=== PATIENT | female | born 1965 | race Caucasian/White ===

== ENCOUNTER 2018-06-18 06:14 | Day surgery (SDC) | payer MEDICAID, SELFPAY ==
[2018-06-18 06:34] VITALS: BP 137/80; PULSE 59; RESP 16; TEMP 36.3; O2SAT 99
[2018-06-18] MEDS: Lactated Ringers 1,000 ML 30 ML IV (06:56)
--- NOTE | 2018-06-18 07:26 | W.COLOREPORT ---
Date of service: 06/18/18 Time of Service: 07:27 Colonoscopy Report Date of procedure: 06/18/18 Pre-op diagnosis general: Change in bowel habits Post-op diagnosis procedure note: other (1. Gastritis 2. Normal colon to the cecum) Procedure: 1. Esophagogastroduodenoscopy with biopsy by cold forceps 2. Colonoscopy to the cecum with biopsy by cold forceps Surgeon: Freddy Mauricio Anesthesia proc note operative: MAC (Destin Edmonds, LILY ASA 2; Mallampati class 2) Estimated blood loss (mL): 1 Pathology: other (1.Duodenal bx 2. Gastric Antral Bx 3. Random terminal ileum Bx 4. Random Colon Bx 5. Random Rectum) Complications: None Disposition: same day Indications: 53-year-old woman referred for change in bowel habits. This started about 3 months ago when she noticed she was having more constipation with several days between bowel movements which is atypical for her. She usually has about 1 bowel movement a day. Currently this is ranging from [place] class I to [place] class VII. She is also had some associated epigastric pain, along with heartburn. She does have a history of atypical chest pain, so she is unsure if it is heartburn versus the atypical chest pain often. She also reports a history of dysphasia some foods. She cannot really relate any aggravating or alleviating factors. She thinks she has not been drinking enough water which could be contributing. Recommended upper and lower endoscopy to evaluate for occult pathology of the GI tract. Prep: Miralax/Dulcolax (Prep Quality good.) Findings: In examining the upper gastrointestinal tract from the oropharynx to the third portion of the duodenum, the patient was noted to have some inflammatory changes in the first portion of the duodenum and gastric antrum. These included some shallow ulcerations seen in the duodenum and gastric antrum. Biopsies were taken from both the duodenum and gastric antrum. No other significant abnormalities are noted through the remainder of the upper GI tract. On examining the colon from cecum to anus no abnormalities were noted. The terminal ileum was examined for approximately 15-20 cm, and appeared grossly normal. Random biopsies were taken from the terminal ileum colon and rectum. Procedure Description: The patient was brought to the procedure room. Monitoring for telemetry, end-tidal CO2, O2 saturation, blood pressure were applied. An appropriate timeout was taken reviewing the patient's identification, allergies, medications,and procedure. Sedation was titrated for effect by the TEACHER MUSIC. The upper endoscopy was performed first. An Olympus variable stiffness endoscope was advanced from the oropharynx to the third portion of the duodenum without difficulty. The scope was then withdrawn in circumferential manner from the duodenum back to the oropharynx. In performing withdrawal of the scope, the first portion of the duodenum appeared inflamed with some shallow ulcerations, but the remainder of the duodenum appeared normal. The scope was withdrawn into the gastric antrum there was shallow ulcerations and inflammatory changes seen also in the gastric antrum, biopsies were taken from both the duodenum and gastric antrum antrum. The scope was retroflexed in the stomach the anterior, posterior surfaces of the stomach, lesser curvature, greater curvature, and fundus were noted to be normal. The scope was then withdrawn to the GE junction which I measured at 35 cm The Z line was at 35 cm and appeared regular. I withdrew the scope through the remainder of the esophagus all which appear grossly normal. Scope was then withdrawn terminating the upper endoscopy. The patient was then repositioned for colonoscopy. Sedation was titrated for effect again. Once adequate sedation was achieved, I performed a inspection of the external perineum, and a digitial rectal examination. No significant external abnormalities were noted. On digital rectal examination, there was no blood, no masses, good rectal tone. I advanced the colonoscope from the anus to the cecum under direct visualization. The cecum was identified by the ileaocecal valve, and the appendiceal orifice. The ileocecal valve was intubated, and the terminal ileum explored for approximately 10-20 cm. The terminal ileum appeared grossly normal; random biopsies were taken and submitted for pathology. Scope was then withdrawn back into the cecum, and was then withdrawn in circumferential manner from the cecum to the rectum. No abnormalites were noted in the colon. Random biopsies were taken throughout the colon. The scope was then withdrawn into the rectum, and retroflexed. Random biopsies were taken from the right. No abnormalities were noted of the rectum or anorectal junction. The scope was then withdrawn, terminating the procedure. There were no complications during the procedure, and the patient tolerated the procedure well. The patient was returned to the day surgery recovery area in good condition. Plan: We will await biopsy results for making further recommendations.
--- NOTE | 2018-06-18 07:29 | COLE_ITS ---
Date of service: 06/18/18 Time of Service: 07:27 Colonoscopy Report Date of procedure: 06/18/18 Pre-op diagnosis general: Change in bowel habits Post-op diagnosis procedure note: other (1. Gastritis 2. Normal colon to the cecum) Procedure: 1. Esophagogastroduodenoscopy with biopsy by cold forceps 2. Colonoscopy to the cecum with biopsy by cold forceps Surgeon: Freddy Mauricio Anesthesia proc note operative: MAC (Destin Edmonds, LLIY ASA 2; Mallampati class 2) Estimated blood loss (mL): 1 Pathology: other (1.Duodenal bx 2. Gastric Antral Bx 3. Random terminal ileum Bx 4. Random Colon Bx 5. Random Rectum) Complications: None Disposition: same day Indications: 53-year-old woman referred for change in bowel habits. This started about 3 months ago when she noticed she was having more constipation with several days between bowel movements which is atypical for her. She usually has about 1 bowel movement a day. Currently this is ranging from [place] class I to [place] class VII. She is also had some associated epigastric pain, along with heartburn. She does have a history of atypical chest pain, so she is unsure if it is heartburn versus the atypical chest pain often. She also reports a history of dysphasia some foods. She cannot really relate any aggravating or alleviating factors. She thinks she has not been drinking enough water which could be contributing. Recommended upper and lower endoscopy to evaluate for occult pathology of the GI tract. Prep: Miralax/Dulcolax (Prep Quality good.) Findings: In examining the upper gastrointestinal tract from the oropharynx to the third portion of the duodenum, the patient was noted to have some inflammatory changes in the first portion of the duodenum and gastric antrum. These included some shallow ulcerations seen in the duodenum and gastric antrum. Biopsies were taken from both the duodenum and gastric antrum. No other significant abnormalities are noted through the remainder of the upper GI tract. On examining the colon from cecum to anus no abnormalities were noted. The terminal ileum was examined for approximately 15-20 cm, and appeared grossly normal. Random biopsies were taken from the terminal ileum colon and rectum. Procedure Description: The patient was brought to the procedure room. Monitoring for telemetry, end- tidal CO2, O2 saturation, blood pressure were applied. An appropriate timeout was taken reviewing the patient's identification, allergies, medications,and procedure. Sedation was titrated for effect by the DEPLOYMENT TECHNICIAN. The upper endoscopy was performed first. An Olympus variable stiffness endoscope was advanced from the oropharynx to the third portion of the duodenum without difficulty. The scope was then withdrawn in circumferential manner from the duodenum back to the oropharynx. In performing withdrawal of the scope , the first portion of the duodenum appeared inflamed with some shallow ulcerations, but the remainder of the duodenum appeared normal. The scope was withdrawn into the gastric antrum there was shallow ulcerations and inflammatory changes seen also in the gastric antrum, biopsies were taken from both the duodenum and gastric antrum antrum. The scope was retroflexed in the stomach the anterior, posterior surfaces of the stomach, lesser curvature, greater curvature, and fundus were noted to be normal. The scope was then withdrawn to the GE junction which I measured at 35 cm The Z line was at 35 cm and appeared regular. I withdrew the scope through the remainder of the esophagus all which appear grossly normal. Scope was then withdrawn terminating the upper endoscopy. The patient was then repositioned for colonoscopy. Sedation was titrated for effect again. Once adequate sedation was achieved, I performed a inspection of the external perineum, and a digitial rectal examination. No significant external abnormalities were noted. On digital rectal examination, there was no blood, no masses, good rectal tone. I advanced the colonoscope from the anus to the cecum under direct visualization. The cecum was identified by the ileaocecal valve, and the appendiceal orifice. The ileocecal valve was intubated, and the terminal ileum explored for approximately 10-20 cm. The terminal ileum appeared grossly normal ; random biopsies were taken and submitted for pathology. Scope was then withdrawn back into the cecum, and was then withdrawn in circumferential manner from the cecum to the rectum. No abnormalites were noted in the colon. Random biopsies were taken throughout the colon. The scope was then withdrawn into the rectum, and retroflexed. Random biopsies were taken from the right. No abnormalities were noted of the rectum or anorectal junction. The scope was then withdrawn, terminating the procedure. There were no complications during the procedure, and the patient tolerated the procedure well. The patient was returned to the day surgery recovery area in good condition. Plan: We will await biopsy results for making further recommendations.
--- NOTE | 2018-06-18 07:35 | W.PM.DSUDISC ---
Discharge Plan Disposition Patient Disposition: HOME Condition: Good Discharge Details Reason For Visit: Change in Bowel Attending Provider: Freddy Mauricio Primary Care Provider: Pretty Avery Home Meds and New Rx's Prescriptions: Continue alprazolam [Xanax] 0.5 MG tablet 0.5 mg PO prn flying RF: 0 nitroglycerin [Nitrostat] 0.4 MG tablet, sublingual 0.4 mg Buccal ONCE RF: 0 acetaminophen [Tylenol Extra Strength] 500 MG tablet 500 mg PO PRN PRNRF: 0 ibuprofen [Advil] 200 MG tablet 1 tab PO PRN PRNRF: 0 ascorbic [id number] [Emergen-C] 1,000 mg Powder Effervescent In Packet 1 ea PO PRN PRNRF: 0 Discontinued bisacodyl [Dulcolax (bisacodyl)] 5 mg tablet,delayed release (DR/EC) 5 mg PO ONCE Qty: 4 RF: 0 polyethylene glycol 3350 [Miralax] 17 gram/dose powder 255 gm PO ONCE Qty: 255 RF: 0 Discharge Instructions Instructions: Colonoscopy (DC), Upper Endoscopy (DC) Stand Alone Forms: Colonoscopy Post Instructions, DSU Post EGD Instructions, [place] (DSU) Print Language: Syriac Activity:: Activity as Tolerated Diet:: As Tolerated Discharge Orders Discharge Orders: Discharge Order (Routine); Ordered 06/18/18 Ordered By: Freddy Mauricio DS: Diagnosis Discharge Diagnosis (1) Change in bowel habits: Status: Acute
--- NOTE | 2018-06-18 07:39 | PDOC.DSDIS_ITS ---
Discharge Plan Disposition Patient Disposition: HOME Condition: Good Discharge Details Reason For Visit: Change in Bowel Attending Provider: Freddy Mauricio Primary Care Provider: Pretty Avery Home Meds and New Rx's Prescriptions: Continue alprazolam [Xanax] 0.5 MG tablet 0.5 mg PO prn flying RF: 0 nitroglycerin [Nitrostat] 0.4 MG tablet, sublingual 0.4 mg Buccal ONCE RF: 0 acetaminophen [Tylenol Extra Strength] 500 MG tablet 500 mg PO PRN PRNRF: 0 ibuprofen [Advil] 200 MG tablet 1 tab PO PRN PRNRF: 0 ascorbic [id number] [Emergen-C] 1,000 mg Powder Effervescent In Packet 1 ea PO PRN PRNRF: 0 Discontinued bisacodyl [Dulcolax (bisacodyl)] 5 mg tablet,delayed release (DR/EC) 5 mg PO ONCE Qty: 4 RF: 0 polyethylene glycol 3350 [Miralax] 17 gram/dose powder 255 gm PO ONCE Qty: 255 RF: 0 Discharge Instructions Instructions: Colonoscopy (DC), Upper Endoscopy (DC) Stand Alone Forms: Colonoscopy Post Instructions, DSU Post EGD Instructions, [place] (DSU) Print Language: Welsh Activity:: Activity as Tolerated Diet:: As Tolerated Discharge Orders Discharge Orders: Discharge Order (Routine); Ordered 06/18/18 Ordered By: Freddy Mauricio DS: Diagnosis Discharge Diagnosis (1) Change in bowel habits: Status: Acute
--- NOTE | 2018-06-18 07:45 | BOWEL_PTH ---
PATIENT: Isa Ro LOC: [facility] U#:[id number] AGE/SX: 53/F ROOM: RE06/18/[address]: Freddy Mauricio DO : 1965 BED: DIS: 06/18/2018 SPEC #: [id number] RECD: 06/18/18 12:52 STATUS: MATTY RE #: [id number] ELISE: 06/18/18 07:[address]: Freddy Mauricio DEPT: Surgical Specimen RECD BY: Carrie Dominguez ENTERED: 06/18/18 12:54 SP TYPE: Bowel OTHR DR: Pretty Avery Tissues: 1 - BIOPSY BOWEL 2 - STOMACH BIOPSY 3 - BIOPSY BOWEL 4 - BIOPSY BOWEL 5 - BIOPSY BOWEL Procedures: GROSS AND MICRO LEVEL 4 Comments: [id number]
[2018-06-18 08:59] VITALS: BP 153/80; PULSE 58; RESP 16; TEMP 36.3; O2SAT 99
== END 2018-06-18 10:55 | disposition home or self-care (01) ==
PROVIDERS: Visit Provider Surgery
PROC: (CPT 43239; principal; 2018-06-18 07:30)
DX: R10.13 Epigastric pain (principal); R12 Heartburn; K29.80 Duodenitis without bleeding; K31.89 Other diseases of stomach and duodenum; R19.4 Change in bowel habit; K21.9 Gastro-esophageal reflux disease without esophagitis; I10 Essential (primary) hypertension; K29.60 Other gastritis without bleeding
CPT/HCPCS: 43239; 45380; 88305; J2250; J3010

== ENCOUNTER 2018-08-10 09:04 | Outpatient (REF) | payer MEDICAID, SELFPAY ==
[2018-08-10 13:17] LABS: Anion Gap 8.1 mmol/L (3-11); BUN 11 mg/dL (7-18); CO2 29.9 mmol/L (21.0-32.0); CREATININE 0.84 mg/dL (0.55-1.02); Calcium 9.6 mg/dL (8.5-10.1); Chloride 101 mmol/L (98-107); Glucose 90 mg/dL (70-100); Potassium 4.5 mmol/L (3.5-5.1); Sodium 139 mmol/L (136-145)
[2018-08-11 12:15] LABS: Hepatitis C Ab w Rflx HCV PCR Negative (NEGAT)
[2018-08-11 12:19] LABS: Lyme Ab w Rflx to Lyme Confirm Negative
[2018-08-11 23:25] LABS: Anaplasma phagocytophilum Negative (Negative); B. miyamotoi PCR Negative (Negative); Babesia divergens/MO-1 Negative (Negative); Babesia duncani Negative (Negative); Babesia microti Negative (Negative); Ehrlichia chaffeensis Negative (Negative); Ehrlichia ewingii/canis Negative (Negative); Ehrlichia muris eauclairensis Negative (Negative)
== END 2018-08-10 09:24 ==
LOC: NCHCN 09:04
PROVIDERS: Visit Provider Nurse Practitioner Family
DX: R51 Headache (principal); Z11.59 Encounter for screening for other viral diseases; Z00.00 Encounter for general adult medical examination without abnormal findings
CPT/HCPCS: 80048; 86803; 86618; 87798

== ENCOUNTER 2018-08-14 11:15 | Outpatient (REF) | payer MEDICAID, SELFPAY ==
[2018-08-17 12:01] LABS: Helicobacter pylori Ag, Feces Negative (NEGAT)
== END 2018-08-14 11:35 ==
LOC: LBN 11:15
PROVIDERS: Visit Provider Surgery
DX: R10.33 Periumbilical pain (principal)
CPT/HCPCS: 87338

== ENCOUNTER 2018-09-10 12:50 | Outpatient (REF) | payer MEDICAID, SELFPAY ==
[2018-09-10 20:45] LABS: Abs Immature Grans 0.02 k/cumm (0.0-0.09); Absolute Basophil Count 0.03 k/cumm (0.0-0.2); Absolute Eosinophil Count 0.15 k/cumm (0.0-0.7); Absolute Lymphocyte Count 1.31 k/cumm (1.2-3.4); Absolute Monocyte Count 0.58 k/cumm (0.11-0.7); Absolute Neutrophil Count 4.92 k/cumm (1.2-6.7); Basophils % 0.4; Eosinophils % 2.1; HCT 39.6 % (36.0-46.0); HGB 13.2 g/dL (12.0-15.5); Immature Grans % 0.3; Lymphocytes % 18.7; Mean Corp. HGB Concentration 33.3 g/dL (32.0-36.0); Mean Corpuscular Hemoglobin 28.2 pg (27.0-33.0); Mean Corpuscular Volume 84.6 fL (80-95); Mean Platelet Volume 10.3 fL (8.0-11.0); Monocytes % 8.3; Neutrophils % 70.2; Platelet Count 314 x1000/uL (130-400); RBC 4.68 m/cumm (4.00-5.20); White Blood Cell Count 7.01 k/cumm (4.4-10.8)
[2018-09-10 20:52] LABS: Iron 66 ug/dL (50-175); Total Iron Binding Capacity 281 ug/dL (250-450); Transferrin Sat 23 % (15-50)
[2018-09-10 21:07] LABS: ALT 31 U/L (12-78); AST 20 U/L (15-37); Albumin 3.7 g/dL (3.4-5.0); Alkaline Phosphatase 73 U/L (46-116); Anion Gap 9.2 mmol/L (3-11); BUN 12 mg/dL (7-18); Bilirubin, Total 0.4 mg/dL (0.2-1.0); CO2 26.8 mmol/L (21.0-32.0); CREATININE 0.75 mg/dL (0.55-1.02); Calcium 8.8 mg/dL (8.5-10.1); Chloride 105 mmol/L (98-107); Ferritin 45 ng/mL (8-388); Glucose 87 mg/dL (70-100); Potassium 4.3 mmol/L (3.5-5.1); Sodium 141 mmol/L (136-145); TSH (W/Ref FT4) 1.89 uIU/mL (0.358-3.74); Total Protein 6.6 g/dL (6.4-8.2)
== END 2018-09-10 13:10 ==
LOC: NCHCN 12:50
PROVIDERS: PCP Nurse Practitioner Family; Visit Provider Nurse Practitioner Family
DX: R10.9 Unspecified abdominal pain (principal); R53.83 Other fatigue; R51 Headache; K29.80 Duodenitis without bleeding; H53.9 Unspecified visual disturbance
CPT/HCPCS: 80053; 82728; 83540; 83550; 84443; 85025

== ENCOUNTER 2018-11-03 00:47 | Outpatient (CLI) | payer MEDICAID, SELFPAY ==
--- NOTE | 2018-11-03 14:00 | DI.US_ITS ---
SYMPTOM/DIAGNOSIS: VISION CHANGES, H53.9, HYPERTENSION, I10, FATIGUE, R53.83 CAROTID ULTRASOUND: Routine examination was performed. On the right, there is minimal calcific plaque in the bulb. There is a question of mild narrowing of the right vertebral artery. No hemodynamically significant velocity elevations are seen (less than 70% narrowing identified). The right vertebral artery is antegrade. On the left, there is mild intimal thickening seen in the carotid bulb and internal carotid artery. No hemodynamically significant velocity elevations are present (less than 70% narrowing is identified). The left vertebral artery is antegrade. IMPRESSION: No evidence of hemodynamically significantly cervical carotid artery stenosis.
== END 2018-11-03 01:07 ==
PROVIDERS: PCP Nurse Practitioner Family; Visit Provider Nurse Practitioner Family
DX: H53.9 Unspecified visual disturbance (principal); I10 Essential (primary) hypertension; R53.83 Other fatigue
CPT/HCPCS: 93880

== ENCOUNTER 2019-07-21 16:52 | Emergency (ER) | payer MEDICAID, SELFPAY ==
[2019-07-21 16:53] VITALS: BP 160/73; PULSE 64; RESP 16; TEMP 36.4; O2SAT 100
--- NOTE | 2019-07-21 17:17 | ED.GENADUL_ITS ---
Discharge Plan Disposition Patient Disposition: HOME Discharge Details Chief Complaint: RashLesion Clinical Impression: Tick bite Primary Care Provider: Rosalba Archibald ED Provider: Emile Montiel Home Meds and New Rx's Prescriptions: No Action alprazolam [Xanax] 0.5 MG tablet 0.5 mg PO prn flying RF: 0 nitroglycerin [Nitrostat] 0.4 MG tablet, sublingual 0.4 mg Buccal ONCE RF: 0 acetaminophen [Tylenol Extra Strength] 500 MG tablet 500 mg PO PRN PRNRF: 0 ibuprofen [Advil] 200 MG tablet 1 tab PO PRN PRNRF: 0 Emergen-C 1,000 mg Powder Effervescent In Packet 1 ea PO PRN PRNRF: 0 Home Made Herbal Tinctures 1 dose PO PRN PRNRF: 0 Discharge Instructions Instructions: Tick Bite (ED) Additional Instructions: You were given a prophylactic dose of doxycycline here in the emergency department. Return or follow-up with your primary care provider should she develop fever, rash joint pain or vomiting. Referrals: Rosalba Archibald [Primary Care Provider] - 2 weeks Discharge Data Discharge Date/Time-TO BE ENTERED AT DEPARTURE: 07/21/19 17:40 Medical Decision Making This is a nontoxic-appearing 54-year-old female presenting to the emergency department with the above chief complaint. Embedded tick head along the left bicep. No EM rash. I explained that complete removal of the take is not necessary actually increase the risk for secondary infection. She was adamant that she wanted the tick head removed therefore with a 18-gauge needle I was able to remove the remaining tick. She is unsure of the duration of attachment therefore doxycycline 200 mg p.o. given here. She is also greater than 5 years status post tetanus. Discussed follow-up precautions HPI General Date/Time Provider Initiated Documentation: 07/21/19 17:16 . HPI Narrative: Patient is a healthy 54-year-old female presents to the emergency department with a tick bite involving her left upper arm. She states that she removed the majority tick however the head still is implanted. She feels that the tick was on for at least 24 hours. She denies any rash, fevers, joint pain or headache. Related Data Home Medications Medication Instructions Recorded Confirmed acetaminophen [Tylenol Extra 500 mg PO PRN PRN 07/27/15 07/21/19 Strength] ibuprofen [Advil] 1 tab PO PRN PRN 08/26/15 07/21/19 alprazolam [Xanax] 0.5 mg PO prn flying 05/11/18 07/21/19 nitroglycerin [Nitrostat] 0.4 mg BUCCAL ONCE tab-cap 05/11/18 07/21/19 Emergen-C 1 ea PO PRN PRN 06/15/18 07/21/19 Home Made Herbal Tinctures 1 dose PO PRN PRN 07/21/19 07/21/19 Allergies Allergy/AdvReac Type Severity Reaction Status Date / Time hydrochlorothiazide Allergy unknown Verified 07/21/19 17:00 lisinopril Allergy unknown Verified 07/21/19 17:00 dust Allergy Mild Itching Uncoded 07/21/19 17:00 mold Allergy Uncoded 07/21/19 17:00 General Stated Complaint: RashLesion ZORAIDA: 4 Review of Systems Narrative: Patient denies any fever, chills, malaise, fatigue, weakness, double vision, sore throat, chest pain, shortness of breath, cough, wheezing, nausea, vomiting, diarrhea, dysuria, hematuria, numbness, tingling, skin rash/lesion, easy bruising. [facility] Medical History Abdominal pain (Acute) Acute myocardial infarction, subendocardial infarction, subsequent episode of care Asthma, exercise induced (Chronic) Atypical chest pain CAD (coronary artery disease) Constipation (Acute) Dysphagia (Acute) GERD (gastroesophageal reflux disease) (Chronic) Hyperlipidemia (Chronic) Hypertension (Chronic) Hypothyroidism (Chronic) Tick bite Surgical History H/O colonoscopy (Chronic 06/18/18) vini Burrows, repeat in 10 years History of (Resolved) History of coronary artery stent placement (Resolved) History of esophagogastroduodenoscopy (EGD) (Chronic 06/18/18) vini Burrows, repeat PRN Family History Father Glioblastoma Hyperlipidemia Heart disease Paternal Grandmother Glioblastoma Mother Hypertension Heart disease Social History Smoking/Tobacco Use Status: Former Tobacco Use Tobacco: How many years used: 10 Alcohol Intake: current Alcohol Intake frequency: 0-2 drinks per day Alcohol type: beer and hard liquor Drug use: Occasionally Substance use type: marijuana Household members: family Number of Children: 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 No obvious distress. Face exam within normal limits. No deformity. Full range of motion of the neck without any tenderness or stiffness. No lymphadenopathy. Chest inspection normal without any tenderness. Respirations clear without any retractions. Good peripheral pulses bilaterally in both upper and lower extremities. Cap refill less than 2 seconds. Abdomen nondistended. There is a small roughly dime size ecchymotic lesion with residual tic anatomy at its base. Location of lesion is along the medial aspect of the left bicep. No EM rash. No other rashes identified. Area does not appear infected without any erythema or discharge. Neurovascularly intact in both upper and lower extremities. Full strength and sensory exam normal. No calf tenderness or swelling. Course Vital Signs Vital signs: Vital Signs Temperature 36.4 C L 07/21/19 16:53 Pulse 64 07/21/19 16:53 Respiratory Rate 16 07/21/19 16:53 Blood Pressure 160/73 H 07/21/19 16:53 Pulse Oximetry 100 07/21/19 16:53 Temperature 36.4 C L 07/21/19 16:53 Temperature Source Skin 07/21/19 16:53 Pulse 64 07/21/19 16:53 Respiratory Rate 16 07/21/19 16:53 Respiratory Effort 07/21/19 17:02 Blood Pressure 160/73 H 07/21/19 16:53 Blood Pressure Position Sitting 07/21/19 16:53 Pulse Oximetry 100 07/21/19 16:53 Oxygen Delivery Method Room Air 07/21/19 16:53 Oxygen Flow Rate 0 07/21/19 16:53 Pain Level 1 07/21/19 16:53
[2019-07-21] MEDS: Doxycycline Hyclate 100 MG CAP 200 MG PO (17:28)
== END 2019-07-21 17:40 | disposition home or self-care (01) ==
LOC: ER 17:19
PROVIDERS: Emergency Provider Physician Assistant; PCP Nurse Practitioner Family
DX: S40.862A Insect bite (nonvenomous) of left upper arm, initial encounter (principal); W57.XXXA Bitten or stung by nonvenomous insect and other nonvenomous arthropods, initial encounter
CPT/HCPCS: 90471; 99283

== ENCOUNTER 2019-11-17 16:30 | Emergency (ER) | payer MEDICAID, SELFPAY ==
[2019-11-17 17:45] VITALS: PULSE 77; TEMP 36.2; O2SAT 100
--- NOTE | 2019-11-17 17:48 | ED.GENADUL_ITS ---
Discharge Plan Disposition Patient Disposition: HOME Condition: Stable Discharge Details Chief Complaint: RespSymp Clinical Impression: Respiratory illness Primary Care Provider: Isa Estrada ED Provider: Rob Hicks Home Meds and New Rx's Prescriptions: No Action alprazolam [Xanax] 0.5 MG tablet 0.5 mg PO prn flying RF: 0 nitroglycerin [Nitrostat] 0.4 MG tablet, sublingual 0.4 mg Buccal ONCE RF: 0 acetaminophen [Tylenol Extra Strength] 500 MG tablet 500 mg PO PRN PRNRF: 0 ibuprofen [Advil] 200 MG tablet 1 tab PO PRN PRNRF: 0 Emergen-C 1,000 mg Powder Effervescent In Packet 1 ea PO PRN PRNRF: 0 Home Made Herbal Tinctures 1 dose PO PRN PRNRF: 0 Discharge Data Discharge Date/Time-TO BE ENTERED AT DEPARTURE: 11/17/19 18:21 Medical Decision Making 54-year-old female presents with acute respiratory illness over the past 3 days. Patient is saturating well and in no respiratory distress. She has clear lung sounds. She is not tachycardic or septic appearing. Consider influenza. Consider COVID-19 given travel history. Influenza testing and COVID-19 testing performed using contact and droplet precautions. Plan will be for discharge with outpatient follow-up. Verbal discharge instructions were reviewed with the patient. She was given opportunity for questions and questions were addressed. It was recommended that she maintain home isolation and self quarantine. Patient was evaluated in parking lot to reduce risk of potential spreak of COVID-19. A medical screening exam was performed. HPI General Mode of arrival: ambulatory . Limitations to Documentation: no limitations . Information obtained by: patient . HPI Narrative: 54-year-old female with past medical history of coronary artery disease status post stent, presents with chief complaint of respiratory illness. Patient notes cough, shortness of breath, and fever over the past 3 days. Fevers been low-grade. She also notes mild headache and general malaise. Patient is concerned that she may have COVID-19. Patient states that she recently was in [facility] where there apparently is an outbreak of COVID-19. She states that she traveled to [place] earlier this week. Patient states that she had mild symptoms last week in [place] and then symptoms improved and now worse. Patient denies chest pain and dizziness. She states she feels like she has a cold. Patient does have an 11-year-old child at home with her. Related Data Home Medications Medication Instructions Recorded Confirmed acetaminophen [Tylenol Extra 500 mg PO PRN PRN 07/27/15 11/24/19 Strength] ibuprofen [Advil] 1 tab PO PRN PRN 08/26/15 11/24/19 alprazolam [Xanax] 0.5 mg PO prn flying 05/11/18 11/24/19 nitroglycerin [Nitrostat] 0.4 mg BUCCAL ONCE tab-cap 05/11/18 11/24/19 Emergen-C 1 ea PO PRN PRN 06/15/18 11/24/19 Home Made Herbal Tinctures 1 dose PO PRN PRN 07/21/19 11/24/19 Allergies Allergy/AdvReac Type Severity Reaction Status Date / Time hydrochlorothiazide Allergy unknown Verified 11/24/19 09:21 lisinopril Allergy unknown Verified 11/24/19 09:21 dust Allergy Mild Itching Uncoded 11/24/19 09:21 mold Allergy Uncoded 11/24/19 09:21 General ZORAIDA: 4 Review of Systems All systems reviewed & are unremarkable except as noted in HPI and below Constitutional Constitutional: Reports fever(s) Cardiovascular Cardiovascular: Reports dyspnea Respiratory Respiratory: Reports cough and Reports dyspnea Gastrointestinal Gastrointestinal: Denies nausea and Denies vomiting [facility] Medical History Abdominal pain (Acute) Acute myocardial infarction, subendocardial infarction, subsequent episode of care Asthma, exercise induced (Chronic) Atypical chest pain CAD (coronary artery disease) Constipation (Acute) Dysphagia (Acute) GERD (gastroesophageal reflux disease) (Chronic) Hyperlipidemia (Chronic) Hypertension (Chronic) Hypothyroidism (Chronic) Tick bite Surgical History H/O colonoscopy (Chronic 06/18/18) Dr Mauricio, vini, repeat in 10 years History of (Resolved) History of coronary artery stent placement (Resolved) History of esophagogastroduodenoscopy (EGD) (Chronic 06/18/18) Dr Mauricio, vini, repeat PRN Family History Father Glioblastoma Hyperlipidemia Heart disease Paternal Grandmother Glioblastoma Mother Hypertension Heart disease Social History Smoking/Tobacco Use Status: Former Tobacco Use Tobacco: How many years used: 10 Alcohol Intake: current Alcohol Intake frequency: 0-2 drinks per day Alcohol type: beer and hard liquor Drug use: Occasionally Substance use type: marijuana Household members: family Number of Children: 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 Do you feel safe at home: Yes Do you feel safe in your relationship?: Yes Exam Const General: cooperative and no acute distress HENMT Mouth: moist mucous membranes Eyes Conjunctivae: normal conjunctivae Sclera: normal sclerae Resp Auscultation: clear to auscultation bilaterally, no rales, no rhonchi and no wheezes Cardio Jugular venous pressure: no JVD Rate: regular rate and not tachycardic Rhythm: regular rhythm Neuro General: patient alert, patient awake and tone normal Psych Appearance: grossly normal Mental Status: mental status grossly normal Course Lab/Test Results Lab/Test Results: 11/17/19 16:40 Nasopharynx Influenza Types A,B Antigen - Pending
[2019-11-21 09:43] LABS: COVID-19 RT-PCR Result See Comments
== END 2019-11-17 18:21 | disposition home or self-care (01) ==
PROVIDERS: Emergency Provider Student in an Organized Health Care Education/Training Program; PCP Family Medicine
DX: R05 Cough (principal); R50.9 Fever, unspecified; R06.02 Shortness of breath; I10 Essential (primary) hypertension
CPT/HCPCS: 87449; 99282; U0003; 99283

== ENCOUNTER 2019-11-24 09:08 | Emergency (ER) | payer MEDICAID, SELFPAY ==
[2019-11-24] VITALS (11 sets, daily range): BP systolic 146–186; BP diastolic 71–72; PULSE 60–67; RESP 14–19; TEMP 36.6–37; O2SAT 97–99
--- NOTE | 2019-11-24 09:18 | ED.GENADUL_ITS ---
Discharge Plan Disposition Patient Disposition: HOME Condition: Improving Discharge Details Chief Complaint: Chest Pain Clinical Impression: Spasm of thoracic back muscle Primary Care Provider: Isa Estrada ED Provider: Toby Cruz Home Meds and New Rx's Prescriptions: Continued alprazolam [Xanax] 0.5 MG tablet 0.5 mg PO prn flying RF: 0 nitroglycerin [Nitrostat] 0.4 MG tablet, sublingual 0.4 mg Buccal ONCE RF: 0 acetaminophen [Tylenol Extra Strength] 500 MG tablet 500 mg PO PRN PRNRF: 0 ibuprofen [Advil] 200 MG tablet 1 tab PO PRN PRNRF: 0 Emergen-C 1,000 mg Powder Effervescent In Packet 1 ea PO PRN PRNRF: 0 Home Made Herbal Tinctures 1 dose PO PRN PRNRF: 0 Discharge Instructions Instructions: Muscle Spasm (ED) Additional Instructions: Please follow-up with physical therapy as prescribed. Remove Lidoderm patch in 12 hours time. Continue to liberally hydrate, may do gentle massage. May continue Tylenol as needed for discomfort. Return if develop a rash, difficulty breathing, fever, or any other acute concerns. Stand Alone Forms: Physical Therapy Referral Medical Decision Making 54-year-old female presents from home with 4 days of aching left back and chest discomfort that began after recent upper respiratory illness where she was evaluated in ER and had a negative cold at 18 and influenza test. She states her cough and shortness of breath have improved. She is afebrile, well-appearing with normal oxygenation, she has muscular tenderness along the posterior upper thoracic muscular chain. She has had previous note of acute MO, most recent stress test in 2017 was negative with normal LVEF. Screening EKG obtained, laboratories, as well as chest x-ray. Patient given Toradol and small fluid bolus. Chest x-ray without acute findings. Laboratories: CBC unremarkable, chemistries reviewed and within normal limits, CK 59, troponin negative. She is improving and clearly has reproducible muscular discomfort. Will place a Lidoderm patch, refer her to physical therapy. She is stable for discharge and understands indications to return for reevaluation. ECG Data Attestation: I personally reviewed and interpreted this ECG (s) as follows: Interpretation: Normal sinus rhythm with a rate of 75, the QRS is narrow, there is note of nonspecific half millimeter ST depression in lead V4. This is seen in a similar fashion on August 26, 2015 tracing HPI General Mode of arrival: ambulatory . Date/Time Provider Initiated Documentation: 11/24/19 09:09 . Limitations to Documentation: no limitations . Information obtained by: patient . History of Present Illness 54 year old F presents to the emergency department with the chief complaint of Back and chest pain, following viral illness, described as moderate, Quality is described as dull, and is localized to the chest, back and left. Patient reports radiation to back and neck. Patient started experiencing this day(s) and it has been constant. Rest improves symptom(s), Movement worsens symptoms . Patient notes denies cough, fever/chills and shortness of breath. Related Data Home Medications Medication Instructions Recorded Confirmed acetaminophen [Tylenol Extra 500 mg PO PRN PRN 07/27/15 11/24/19 Strength] ibuprofen [Advil] 1 tab PO PRN PRN 08/26/15 11/24/19 alprazolam [Xanax] 0.5 mg PO prn flying 05/11/18 11/24/19 nitroglycerin [Nitrostat] 0.4 mg BUCCAL ONCE tab-cap 05/11/18 11/24/19 Emergen-C 1 ea PO PRN PRN 06/15/18 11/24/19 Home Made Herbal Tinctures 1 dose PO PRN PRN 07/21/19 11/24/19 Allergies Allergy/AdvReac Type Severity Reaction Status Date / Time hydrochlorothiazide Allergy unknown Verified 11/24/19 09:21 lisinopril Allergy unknown Verified 11/24/19 09:21 dust Allergy Mild Itching Uncoded 11/24/19 09:21 mold Allergy Uncoded 11/24/19 09:21 General ZORAIDA: 4 Review of Systems Narrative: 6 systems reviewed and otherwise negative [facility] Medical History Abdominal pain (Acute) Acute myocardial infarction, subendocardial infarction, subsequent episode of care Asthma, exercise induced (Chronic) Atypical chest pain CAD (coronary artery disease) Constipation (Acute) Dysphagia (Acute) GERD (gastroesophageal reflux disease) (Chronic) Hyperlipidemia (Chronic) Hypertension (Chronic) Hypothyroidism (Chronic) Tick bite Social History Smoking/Tobacco Use Status: Former Tobacco Use Tobacco: How many years used: 10 Alcohol Intake: current Alcohol Intake frequency: 0-2 drinks per day Alcohol type: beer and hard liquor Drug use: Occasionally Substance use type: marijuana Household members: family Number of Children: 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 Pleasant, well groomed, interactive. HEAD: Normocephalic, atraumatic ENT: Mucous membranes moist, oropharynx unremarkable, External ear exam unremarkable EYES: PERRL, EOMI NECK: Full ROM, no SEGUNDO, no menigismus CHEST/RESP: Nontender, clear to auscultation bilateral, no wheeze/rhonchi/rales Back: Muscular tenderness present left side between scapula and spine, no midline tenderness, step-off or deformity. CARDIOVASCULAR: RRR, no murmur, rub johann. 2+ Rad pulse bilateral ABDOMEN: Soft, nontender, no mass. +Bowel sounds EXT: Full ROM, no edema, no rash Neuro: Grossly normal neurologic exam, conversant, interactive. Psych: Speech fluent, thoughts congruent, affect normal
--- NOTE | 2019-11-24 09:31 | DI.RAD_ITS ---
EXAM: XR CHEST 2V PA LATERAL CLINICAL HISTORY: Back pain/chest pain TECHNIQUE: 2D digital imaging was performed. COMPARISON: No exams were available for comparison FINDINGS: MEDIASTINUM: Normal. HEART: Normal. PULMONARY VASCULATURE: Normal. LUNGS: Clear. PLEURAL SPACE: No pleural effusion or pneumothorax. BONE:Normal. OTHER FINDINGS:None IMPRESSION: Negative chest x-ray. DATA REPOSITORY: RADIATION DOSE DELIVERED:
[2019-11-24] MEDS: Normal Saline 500 ML IV (10:00)
[2019-11-24] MEDS: Ketorolac 15 MG/ML VIAL IVP (10:00)
[2019-11-24] MEDS: Normal Saline Flush 10 ML SYR IVP (10:00)
[2019-11-24 10:01] LABS: Abs Immature Grans 0.02 k/cumm (0.0-0.09); Absolute Basophil Count 0.01 k/cumm (0.0-0.2); Absolute Eosinophil Count 0.07 k/cumm (0.0-0.7); Absolute Lymphocyte Count 1.87 k/cumm (1.2-3.4); Absolute Monocyte Count 0.47 k/cumm (0.11-0.7); Absolute Neutrophil Count 4.27 k/cumm (1.2-6.7); Basophils % 0.1; HGB 14.5 g/dL (12.0-15.5); Immature Grans % 0.3 %; Lymphocytes % 27.9; Mean Corp. HGB Concentration 33.7 g/dL (32.0-36.0); Mean Corpuscular Hemoglobin 28.2 pg (27.0-33.0); Mean Corpuscular Volume 83.5 fL (80-95); Mean Platelet Volume 10.2 fL (8.0-11.0); Neutrophils % 63.7; Platelet Count 226 x1000/uL (130-400); RBC 5.15 m/cumm (4.00-5.20); RBC Distribution Width 14.1 % (11.7-14.6); White Blood Cell Count 6.71 k/cumm (4.4-10.8)
[2019-11-24 10:20] LABS: Creatine Kinase 59 U/L (26-192)
[2019-11-24 10:21] LABS: ALT 32 U/L (14-59); AST 21 U/L (15-37); Albumin 4.1 g/dL (3.4-5.0); Alkaline Phosphatase 76 U/L (46-116); Anion Gap 10.3 mmol/L (3-11); BUN 9 mg/dL (7-18); Bilirubin, Total 0.4 mg/dL (0.2-1.0); CO2 28.7 mmol/L (21.0-32.0); CREATININE 0.93 mg/dL (0.55-1.02); Calcium 8.9 mg/dL (8.5-10.1); Chloride 101 mmol/L (98-107); Glucose 108 mg/dL (74-106); Magnesium 2.1 mg/dL (1.8-2.4); Potassium 3.6 mmol/L (3.5-5.1); Sodium 140 mmol/L (136-145); Total Protein 7.8 g/dL (6.4-8.2)
[2019-11-24 10:23] LABS: Troponin I < 0.05 ng/Ml (<0.06)
[2019-11-24] MEDS: Lidocaine 5% Patch 1 PATCH TP (10:50)
== END 2019-11-24 10:52 | disposition home or self-care (01) ==
PROVIDERS: Emergency Provider Emergency Medicine; PCP Family Medicine
DX: R07.9 Chest pain, unspecified (principal); M62.830 Muscle spasm of back; I10 Essential (primary) hypertension
CPT/HCPCS: 36415; 80053; 82550; 93005; 96361; 96374; 99285; 71046; 83735; 84484; 85025; 93010; 99284; J1885

== ENCOUNTER 2019-12-01 17:08 | Outpatient (REF) | payer MEDICAID, SELFPAY ==
[2019-12-01 20:55] LABS: Calculated LDL 176 mg/dL (<100); Cholesterol 276 mg/dL (<200); HDL Cholesterol 52 mg/dL (40-60); TSH (W/Ref FT4) 2.32 uIU/mL (0.36-3.74); Triglyceride 241 mg/dL (<150)
== END 2019-12-01 17:28 ==
LOC: NCHCN 17:08
PROVIDERS: PCP Family Medicine; Visit Provider Nurse Practitioner Family
DX: I10 Essential (primary) hypertension (principal); R07.89 Other chest pain
CPT/HCPCS: 80061; 84443

== ENCOUNTER 2019-12-27 14:20 | Outpatient (REF) | payer MEDICAID, SELFPAY ==
[2019-12-27 20:17] LABS: Anion Gap 10.8 mmol/L (3-11); BUN 19 mg/dL (7-18); CO2 27.2 mmol/L (21.0-32.0); CREATININE 0.87 mg/dL (0.55-1.02); Calcium 8.9 mg/dL (8.5-10.1); Chloride 104 mmol/L (98-107); Glucose 102 mg/dL (74-106); Potassium 4.4 mmol/L (3.5-5.1); Sodium 142 mmol/L (136-145)
== END 2019-12-27 14:40 ==
LOC: NCHCN 14:20
PROVIDERS: PCP Family Medicine; Visit Provider Nurse Practitioner Family
DX: R07.89 Other chest pain (principal)
CPT/HCPCS: 80048

== ENCOUNTER 2020-02-15 12:19 | Outpatient (CLI) | payer MEDICAID, SELFPAY ==
[2020-02-17 12:59] LABS: COVID-19 RT-PCR Result NEGATIVE (Negative)
== END 2020-02-15 12:39 ==
PROVIDERS: PCP Family Medicine; Visit Provider Nurse Practitioner Family
DX: Z11.59 Encounter for screening for other viral diseases (principal)
CPT/HCPCS: U0003

== ENCOUNTER 2020-04-03 14:31 | Outpatient (REF) | payer MEDICAID, SELFPAY ==
[2020-04-08 15:00] LABS: SARS-CoV-2 RNA Undetected (Undetected); SARS-CoV-2 Specimen Source Nasopharynx
== END 2020-04-03 14:51 ==
LOC: NCHCN 14:31
PROVIDERS: PCP Family Medicine; Visit Provider Nurse Practitioner Family
DX: Z20.828 Contact with and (suspected) exposure to other viral communicable diseases (principal); Z11.59 Encounter for screening for other viral diseases
CPT/HCPCS: U0003

== ENCOUNTER 2020-06-27 14:55 | Outpatient (REF) | payer MEDICAID, SELFPAY ==
[2020-07-02 05:18] LABS: Patient Race White; SARS-CoV-2 RNA Undetected (Undetected); SARS-CoV-2 Specimen Source Nasal
== END 2020-06-27 15:15 ==
LOC: NCHCN 14:55
PROVIDERS: PCP Family Medicine; Visit Provider Nurse Practitioner Family
DX: Z20.828 Contact with and (suspected) exposure to other viral communicable diseases (principal)
CPT/HCPCS: U0003

== ENCOUNTER 2020-08-22 16:19 | Outpatient (REF) | payer MEDICAID, SELFPAY ==
[2020-08-25 10:05] LABS: COVID-19 RT-PCR Result NEGATIVE (Negative)
== END 2020-08-22 16:39 ==
LOC: NCHCN 16:19
PROVIDERS: PCP Family Medicine; Visit Provider Nurse Practitioner Family
DX: Z20.828 Contact with and (suspected) exposure to other viral communicable diseases (principal)
CPT/HCPCS: U0003

== ENCOUNTER 2021-06-05 22:52 | Emergency (ER) | payer MEDICAID, SELFPAY ==
[2021-06-05 22:55] VITALS: BP 196/89; PULSE 75; RESP 13; TEMP 36.1
--- NOTE | 2021-06-05 23:11 | ED.GENADUL_ITS ---
Discharge Plan Disposition Patient Disposition: HOME Condition: Stable Discharge Details Clinical Impression: Rash Primary Care Provider: Isa Estrada ED Provider: Ferdinand Angela Home Meds and New Rx's Prescriptions: New prednisone 20 mg tablet 60 mg PO DAILY 4 Days Qty: 12 RF: 0 Continued alprazolam [Xanax] 0.5 MG tablet 0.5 mg PO prn flying RF: 0 nitroglycerin [Nitrostat] 0.4 MG tablet, sublingual 0.4 mg Buccal ONCE RF: 0 acetaminophen [Tylenol Extra Strength] 500 MG tablet 500 mg PO PRN PRNRF: 0 ibuprofen [Advil] 200 MG tablet 1 tab PO PRN PRNRF: 0 Emergen-C 1,000 mg Powder Effervescent In Packet 1 ea PO PRN PRNRF: 0 Home Made Herbal Tinctures 1 dose PO PRN PRNRF: 0 losartan 25 mg tablet 12.5 mg DAILY RF: 0 Discharge Instructions Additional Instructions: you can take 25mg benadryl every 4-6 hours as needed follow up with your primary care provider within a week if you feel more ill, have difficulty breathing, severe abdominal pain or persistent vomit return to the emergency department Medical Decision Making 56 yo female comes in with rash. She states she had just ate dinner but had no new foods with this and denies new medications recently, and developed rash all over her body that was itching. She took benadryl and came here for an evaluation. She now states the rash has significantly improved and has no itching. She denies dyspnea, gi symptoms. She has a sensation that her throat feels swollen but is swallowing and speaking in full sentences in no distress, normal lung sounsd and no stridor or drooling. No abdominal tenderness. She has several various sized red patches that are mildly erythmatous on her upper back and forearms, no tongue swelling, normal uvula and no lip swelling or mucous membrane lesions. Suspect environmental allergen, no findings at present to suggest anaphylaxis, will treat with prednisone and observe. pt remains stable, no itching gi or respiratory symptoms and drinking liquids normally and walking without symptoms. She is stable for d/c, do not feel she requires epi as no symptoms apart from rash to suggest anaphylaxis. Advised to f/u with pcp and return precautions given Differential Diagnosis Differential Diagnosis: uritcaria, allergic reaction, anaphlyaxis HPI General Mode of arrival: ambulatory . Date/Time Provider Initiated Documentation: 06/05/21 22:57 . Limitations to Documentation: no limitations . Information obtained by: patient . History of Present Illness 56 year old F presents to the emergency department with the chief complaint of rash, described as moderate, Patient started experiencing this hour(s) (3) and it has been other (improving). No relieving factors improve symptom(s), No exacerbating factors reported . Patient did receive the following treatments prior to arrival, other (benadryl) Related Data Home Medications Medication Instructions Recorded Confirmed acetaminophen [Tylenol Extra 500 mg PO PRN PRN 07/27/15 11/24/19 Strength] ibuprofen [Advil] 1 tab PO PRN PRN 08/26/15 11/24/19 alprazolam [Xanax] 0.5 mg PO prn flying 05/11/18 11/24/19 nitroglycerin [Nitrostat] 0.4 mg BUCCAL ONCE tab-cap 05/11/18 06/05/21 Emergen-C 1 ea PO PRN PRN 06/15/18 06/05/21 Home Made Herbal Tinctures 1 dose PO PRN PRN 07/21/19 11/24/19 losartan 12.5 mg DAILY 06/05/21 06/05/21 prednisone 60 mg PO DAILY 4 Days #12 tab 06/06/21 Previous Rx's Medication Instructions Recorded prednisone 60 mg PO DAILY 4 Days #12 tab 06/06/21 Allergies Allergy/AdvReac Type Severity Reaction Status Date / Time hydrochlorothiazide Allergy unknown Verified 11/24/19 09:21 lisinopril Allergy unknown Verified 11/24/19 09:21 dust Allergy Mild Itching Uncoded 11/24/19 09:21 mold Allergy Uncoded 11/24/19 09:21 General Stated Complaint: Allergic ZORAIDA: 3 Review of Systems All systems reviewed & are unremarkable except as noted in HPI and below Constitutional Constitutional: Denies chills and Denies fever(s) Cardiovascular Cardiovascular: Denies chest pain and Denies dyspnea Respiratory Respiratory: Denies cough and Denies dyspnea Gastrointestinal Gastrointestinal: Denies abdominal pain, Denies nausea and Denies vomiting Musculoskeletal Musculoskeletal: Denies joint swelling [facility] Medical History (Updated 06/06/21 @ 00:01 by Ferdinand Angela MD) Abdominal pain Acute myocardial infarction, subendocardial infarction, subsequent episode of care Asthma, exercise induced Atypical chest pain CAD (coronary artery disease) Constipation Dysphagia GERD (gastroesophageal reflux disease) Hyperlipidemia Hypertension Hypothyroidism Tick bite Surgical History H/O colonoscopy (06/18/18) vini Burrows, repeat in 10 years History of History of coronary artery stent placement History of esophagogastroduodenoscopy (EGD) (06/18/18) vini Burrows, repeat PRN Family History Father Glioblastoma Hyperlipidemia Heart disease Paternal Grandmother Glioblastoma Mother Hypertension Heart disease Social History Smoking/Tobacco Use Status: Former Tobacco Use Tobacco: How many years used: 10 Smoking risk assessment performed?: Yes Alcohol Intake: current Alcohol Intake frequency: 0-2 drinks per day Alcohol type: beer and hard liquor Drug use: Occasionally Substance use type: marijuana Household members: family 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 of Children: 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 Do you feel safe at home: Yes Do you feel safe in your relationship?: Yes Exam Const General: no acute distress Orientation: alert HENMT Head: normal to inspection Ears: external ears normal General nose exam: external nose normal Mouth: moist mucous membranes Eyes General: appearance normal, both eyes and all related structures Neck Neck: normal visual inspection Resp Effort & Inspection: normal respiratory effort and able to speak in complete sentences Cardio Rate: regular rate Skin General skin exam: elasticity normal Neuro General: patient alert and patient oriented x3 Extrem General: normal to inspection Psych Mental Status: mental status grossly normal Course Vital Signs Vital signs: Vital Signs Temperature 36.1 C L 06/05/21 22:55 Pulse 75 06/05/21 22:55 Respiratory Rate 13 06/05/21 22:55 Blood Pressure 196/89 H 06/05/21 22:55 Temperature 36.1 C L 06/05/21 22:55 Temperature Source Temporal Artery Scan 06/05/21 22:55 Pulse 75 06/05/21 22:55 Respiratory Rate 13 06/05/21 22:55 Blood Pressure 196/89 H 06/05/21 22:55 Blood Pressure Position Supine 06/05/21 22:55 Oxygen Delivery Method Room Air 06/05/21 22:55 Oxygen Flow Rate 0 06/05/21 22:55 Pain Level 0 06/05/21 22:55
[2021-06-05] MEDS: predniSONE 20 MG TAB 60 MG PO (23:18)
[2021-06-06 00:18] VITALS: BP 147/64; PULSE 67; RESP 16; O2SAT 99
== END 2021-06-06 00:22 | disposition home or self-care (01) ==
PROVIDERS: Emergency Provider Emergency Medicine; PCP Family Medicine
DX: R21 Rash and other nonspecific skin eruption (principal)
CPT/HCPCS: 99283; J7512

== ENCOUNTER 2021-06-17 08:16 | Emergency (ER) | payer MEDICAID, SELFPAY ==
[2021-06-17] VITALS (29 sets, daily range): BP systolic 134–167; BP diastolic 59–94; PULSE 53–72; RESP 11–23; TEMP 36.6; O2SAT 94–100
--- NOTE | 2021-06-17 08:15 | RT.EKG_ITS ---
APPROVED REPORT Exam: Resting ECG Reason for Exam: Upper Back pain Patient Location: E HR:65 bpm ECG Measurements Heart Rate 65 AXIS DC 124 P 14 QRSd 78 QRS 42 QT 429 T 35 QTc 446 Conclusion Sinus rhythm...normal P axis, V-rate 60- 99 no STEMI, non-diagnostic EKG I have reviewed and interpreted ECG and agree with software generated interpretation.
--- NOTE | 2021-06-17 08:23 | W.ED.GENAD ---
Discharge Plan Disposition Patient Disposition: HOME Condition: Stable Discharge Details Clinical Impression: Right flank pain Primary Care Provider: Isa Estrada ED Provider: Sophia Manzo Home Meds and New Rx's Prescriptions: Continued alprazolam [Xanax] 0.5 MG tablet 0.5 mg PO prn flying RF: 0 nitroglycerin [Nitrostat] 0.4 MG tablet, sublingual 0.4 mg Buccal ONCE RF: 0 aspirin [Adult Aspirin Regimen] 81 mg tablet,delayed release (DR/EC) 81 mg PO DAILY RF: 0 acetaminophen [Tylenol Extra Strength] 500 MG tablet 500 mg PO PRN PRNRF: 0 ibuprofen [Advil] 200 MG tablet 1 tab PO PRN PRNRF: 0 Emergen-C 1,000 mg Powder Effervescent In Packet 1 ea PO PRN PRNRF: 0 Home Made Herbal Tinctures 1 dose PO PRN PRNRF: 0 losartan 25 mg tablet 12.5 mg DAILY RF: 0 omega-3 fatty acids Capsule PO RF: 0 cholecalciferol (vitamin D3) [Vitamin D3] 25 mcg (1,000 unit) Tablet 25 mcg PO DAILY RF: 0 Discharge Instructions Instructions: Flank Pain (ED) Additional Instructions: At this time the cardiac work-up that we have performed is within normal limits, lipase is within normal limit, there is no evidence of urinary tract infection. However if you continue to have symptoms I do recommend that you follow-up with your primary care provider in the next 3 to 5 days. Please take Tylenol or Ibuprofen with food every 4-6 hours as needed for pain and swelling. Follow up with primary care provider in 3-5 days. Return to ED sooner if any worsening or concerns. Increase oral fluids. Referrals: Isa Estrada [Primary Care Provider] - 5 days Discharge Data Discharge Date/Time-TO BE ENTERED AT DEPARTURE: 06/17/21 13:01 Medical Decision Making 56-year-old female with a history of abdominal pain, [place], asthma, coronary artery disease, stents placed to the LAD, GERD, hyperlipidemia, hypertension, hypothyroidism presents to the ER chief complaint of upper back pain which began at 8 AM this morning. She endorses some nausea and right lower quadrant abdominal pain after eating a shaggy saray mushroom last night. She denies any diarrhea or hematochezia. She denies any problems urinating or burning with urination. She did not take any aspirin this morning. She does take losartan for her blood pressure which she took last night. She does endorse drinking 1 beer last night. Denies any cough or shortness of breath. She is vaccinated for Covid she was recently (06-06-21) seen in the ER for a rash to her upper back and arms which seems to have cleared up. EKG was reviewed by Yesy Hicks MD ER attending, please see her official report. EXAM: XR CHEST 2V PA LATERAL CLINICAL HISTORY: Right side back pain, Hx CAD TECHNIQUE: 2D digital imaging was performed. COMPARISON: CR XR CHEST 2V PA LATERAL from 11/24/2019 FINDINGS: MEDIASTINUM: Normal. HEART: Normal. PULMONARY VASCULATURE: Normal. LUNGS: Clear. PLEURAL SPACE: No pleural effusion or pneumothorax. BONE:Unremarkable for age. IMPRESSION: No acute abnormality. CBC unremarkable, CMP shows potassium 3.3, anion gap 14.0 glucose 107, serial troponins within normal limits, lipase 1 3, urinalysis shows trace leukocyte no nitrite 0-2 WBCs rare epithelials negative for crystals negative for mucus or casts or bacteria. Culture is pending at this time. I did discuss at length patient's labs. She does request to wait till the second troponin. Second troponin within normal limits. Patient discharged from the facility but left without receiving her discharge papers before leaving. Patient was given 40 mEq potassium liquid p.o. prior to discharge. HPI General Mode of arrival: ambulatory. Date/Time Provider Initiated Documentation: 06/17/21 08:16. Limitations to Documentation: no limitations. Information obtained by: patient and old records reviewed. HPI Narrative: 56-year-old female with a history of abdominal pain, [place], asthma, coronary artery disease, stents placed to the LAD, GERD, hyperlipidemia, hypertension, hypothyroidism presents to the ER chief complaint of upper back pain which began at 8 AM this morning. She endorses some nausea and right lower quadrant abdominal pain after eating a shaggy saray mushroom last night. She denies any diarrhea or hematochezia. She denies any problems urinating or burning with urination. She did not take any aspirin this morning. She does take losartan for her blood pressure which she took last night. She does endorse drinking 1 beer last night. Denies any cough or shortness of breath. She is vaccinated for Covid she was recently (06-06-21) seen in the ER for a rash to her upper back and arms which seems to have cleared up. Related Data Home Medications Medication Instructions Recorded Confirmed acetaminophen [Tylenol Extra 500 mg PO PRN PRN 07/27/15 06/17/21 Strength] ibuprofen [Advil] 1 tab PO PRN PRN 08/26/15 11/24/19 alprazolam [Xanax] 0.5 mg PO prn flying 05/11/18 06/17/21 nitroglycerin [Nitrostat] 0.4 mg BUCCAL ONCE tab-cap 05/11/18 06/17/21 Emergen-C 1 ea PO PRN PRN 06/15/18 06/17/21 Home Made Herbal Tinctures 1 dose PO PRN PRN 07/21/19 11/24/19 losartan 12.5 mg DAILY 06/05/21 06/17/21 aspirin 81 mg tablet,delayed 81 mg PO DAILY 06/14/21 release cholecalciferol (vitamin D3) 25 mcg PO DAILY 06/17/21 06/17/21 [Vitamin D3] omega-3 fatty acids PO 06/17/21 Allergies Allergy/AdvReac Type Severity Reaction Status Date / Time hydrochlorothiazide Allergy unknown Verified 06/17/21 08:39 lisinopril Allergy unknown Verified 06/17/21 08:39 dust Allergy Mild Itching Uncoded 06/17/21 08:39 mold Allergy Uncoded 06/17/21 08:39 General ZORAIDA: 3 Review of Systems All systems reviewed & are unremarkable except as noted in HPI and below Cardiovascular Cardiovascular: Reports as per HPI and Denies dyspnea Comments: Hx [place], Posterior right back pain Respiratory Respiratory: Denies dyspnea Gastrointestinal Gastrointestinal: Reports system reviewed and no additional complaints, except as documented, Reports nausea and Denies vomiting Genitourinary Genitourinary: Denies difficulty voiding and Reports flank pain Musculoskeletal Musculoskeletal: Reports back pain [facility] Medical History (Updated 06/17/21 @ 12:32 by Sophia Manzo) Abdominal pain Acute myocardial infarction, subendocardial infarction, subsequent episode of care Asthma, exercise induced Atypical chest pain CAD (coronary artery disease) Constipation Dysphagia GERD (gastroesophageal reflux disease) History of placement of stent in LAD coronary artery 03/2014 [facility] Hyperlipidemia Hypertension Hypothyroidism No-show for appointment Preventative health care Tick bite Surgical History H/O colonoscopy (06/18/18) vini Burrows, repeat in 10 years History of History of coronary artery stent placement History of esophagogastroduodenoscopy (EGD) (06/18/18) vini Burrows, repeat PRN Family History Father Glioblastoma Hyperlipidemia Heart disease Paternal Grandmother Glioblastoma Mother Hypertension Heart disease Social History (Updated 06/14/21 @ 16:01 by Lory Harper RN) Smoking/Tobacco Use Status: Former Tobacco Use Quit Date: 09/14/03 Tobacco: How many years used: 10 Smoking risk assessment performed?: Yes Alcohol Intake: current Alcohol Intake frequency: 0-2 drinks per day Alcohol type: beer and hard liquor Drug use: Occasionally Substance use type: marijuana Household members: family Number of Children: 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 Appears stated age. Normal body habitus. Head: Normocephalic, no trauma. Eyes: Pupils PERRLA, Red reflex noted, EOM's intact. Eyelids symmetrical without lesions, discharge, or swelling. ENT: Bilateral TM's WNL, External ear normal to inspection, no mastoid TTP, swelling, or erythema, Nasal turbinates WNL, no nasal discharge. Normal dentition, Posterior pharynx WNL, no exudate. Chest: RRR, Normal S1, S2, distal pulses intact. Resp: Lungs clear to auscultation bilaterally, no wheezes, rales, or rhonchi. Musculoskeletal: Normal gait, 5/5 strength to all four extremities. Does have some pinpoint right paraspinous tenderness with palpation. No muscle spasm noted. Skin: No suspicious rashes or lesions. Capillary refill less than 2 sec. Neurologic: Cranial nerves II-XII intact. Alert and oriented x 3. DTR's intact. Hematologic/Lymphatic: No ecchymosis, no lymphadenopathy.
--- NOTE | 2021-06-17 08:30 | DI.RAD_ITS ---
Exam(s) XR CHEST 2V PA LATERAL EXAM: XR CHEST 2V PA LATERAL CLINICAL HISTORY: Right side back pain, Hx CAD TECHNIQUE: 2D digital imaging was performed. COMPARISON: CR XR CHEST 2V PA LATERAL from 11/24/2019 FINDINGS: MEDIASTINUM: Normal. HEART: Normal. PULMONARY VASCULATURE: Normal. LUNGS: Clear. PLEURAL SPACE: No pleural effusion or pneumothorax. BONE:Unremarkable for age. IMPRESSION: No acute abnormality. DATA REPOSITORY: RADIATION DOSE DELIVERED:
[2021-06-17] MEDS: Aspirin 81 MG CHEW 324 MG CH (08:50)
[2021-06-17 09:00] LABS: Abs Immature Grans 0.03 10^3/uL (0.0-0.06); Absolute Basophil Count 0.04 10^3/uL (0.0-0.2); Absolute Eosinophil Count 0.31 10^3/uL (0.0-0.7); Absolute Lymphocyte Count 2.52 10^3/uL (1.2-3.4); Absolute Monocyte Count 0.77 10^3/uL (0.1-0.8); Absolute Neutrophil Count 6.01 10^3/uL (1.2-6.7); Basophils % 0.4; Eosinophils % 3.2; HCT 42.1 % (36.0-46.0); HGB 13.8 g/dL (11.2-15.7); Immature Grans % 0.3; MCH 27.8 pg (27.0-33.0); MCHC 32.8 % (32.0-36.0); MCV 84.7 fL (80-95); MPV 9.3 fL (8.0-11.0); Neutrophils % 62.1; Nucleated RBC 0 %; Platelet Count 278 10^3/uL (130-400); RBC 4.97 10^6/uL (3.93-5.22); RDW 13.4 % (11.7-14.6); RDW-SD 41.2 fL; WBC 9.68 10^3/uL (4.4-10.8)
[2021-06-17 09:05] LABS: Bilirubin Negative (Negative); Blood Negative (Negative); Clarity Clear (Clear); Glucose Negative (Negative); Ketones Negative (Negative); Leukocyte Esterase Trace (Negative); Nitrite Negative (Negative); Urobilinogen 0.2 EU/dL (Up TO 0.2); pH 5.5 (5-8)
[2021-06-17 09:14] LABS: Bacteria Negative HPF (Negative); C & S Indicated? Yes; Casts Negative LPF (Negative); Crystals Negative HPF (Negative); Epithelial Cells Rare HPF (Negative); Mucus Negative (Negative); RBC Negative HPF (0-2); WBC 0-2 HPF (0-5)
[2021-06-17 09:14] LABS: ALT 50 U/L (14-59); AST 25 U/L (15-37); Albumin 3.8 g/dL (3.4-5.0); Alkaline Phosphatase 74 U/L (46-116); BUN 17 mg/dL (7-18); Bilirubin, Total 0.5 mg/dL (0.2-1.0); Chloride 100 mmol/L (98-107); Estimated GFR 57.15 (mL/min/1.73m2); Glucose 107 mg/dL (74-106); Magnesium 1.9 mg/dL (1.8-2.4); Potassium 3.3 mmol/L (3.5-5.1); Sodium 139 mmol/L (136-145); Total Protein 7.4 g/dL (6.4-8.2)
[2021-06-17 09:38] LABS: Calcium 8.8 mg/dL (8.5-10.1)
[2021-06-17 09:39] LABS: Troponin I < 0.05 ng/mL (<0.06)
[2021-06-17] MEDS: Potassium Chloride Liquid 20 MEQ PKT 40 MEQ PO (10:05)
--- NOTE | 2021-06-17 10:45 | RT.EKG_ITS ---
APPROVED REPORT Exam: Resting ECG Reason for Exam: Chest pain Patient Location: E HR:58 bpm ECG Measurements Heart Rate 58 AXIS KS 126 P 18 QRSd 75 QRS 37 QT 430 T 29 QTc 423 Conclusion Sinus bradycardia...rate< 60 no STEMI, non-diagnostic EKG I have reviewed and interpreted ECG and agree with software generated interpretation.
[2021-06-17 11:29] LABS: Lipase 123 U/L (73-393)
[2021-06-17 11:42] LABS: Troponin I < 0.05 ng/mL (<0.06)
== END 2021-06-17 13:01 | disposition home or self-care (01) ==
PROVIDERS: Emergency Provider Registered Nurse Emergency; PCP Family Medicine
DX: M54.89 Other dorsalgia (principal); R10.31 Right lower quadrant pain; Z86.79 Personal history of other diseases of the circulatory system
CPT/HCPCS: 80053; 83690; 93005; 99284; 71046; 81003; 81015; 83735; 84484; 85025; 87086; 93010

== ENCOUNTER 2021-06-25 00:45 | Outpatient (CLI) | payer MEDICAID, SELFPAY ==
--- NOTE | 2021-06-25 08:45 | DI.NM_ITS ---
APPROVED REPORT Exam: Exercise Treadmill Patient Location: Out-Patient Room/Bed: Stress Nurse: Trixie Centeno RN Ordering Provider:EZEQUIEL WHITE, Contact Number: [phone] BMI: 22.14 Baseline Rhythm: Sinus Bradycardia Indications: ANGINA Medical History Medical History: CAD s/p [place] w/ JAHAIRA to LAD, GERD, HLD, HTN, Hypothyroidism Cardiac Medications: Losartan, Aspirin, Allergies: Hydrochlorothiazide, Lisinopril Cardiac Risk Factors: FHX of CAD, HTN, Hyperlipidemia, CVD, Smoking (former) Previous Cardiac Procedures: PCI w/ JAHAIRA 2013 Pretest Chest Pain Characteristics: Non-exertional Chest pain (1/10 left chest pain off and on) Exercise History: Physically active Physical Disabilities: None Lung Sounds: Clear to auscultation Heart Sounds: Regular Stress Test Details Test: Exercise stress testing was performed using a Ed protocol. Nuclear Acquisition: Rest Tc-99m/Stress Tc-99m 1 day Rest Isotope: Tc-99m Sestamibi. Dose: 10.3 Date: 06/25/2021 Injection Time: 0900 Stress Dose: 34.4 Date: 06/25/2021 Injection Time: 1047 HR Resting HR Supine: 56 bpm Max Heart Rate (APMHR): 163.666840 bpm Resting HR Standin bpm Target HR (85% APMHR): 138.029417 bpm Max HR Achieved: 150 bpm % of APMHR: 92.02 Recovery HR: 76 bpm HR response to stress: Normal HR response to stress BP Resting BP Supine: 144/82 mmHg Resting BP Standin/88 mmHg Max BP: 220/78 mmHg Recovery BP: 172/88 mmHg BP response to stress: Abnormal hypertensive response to stress. ECG Resting ECG: Sinus Rhythm Ectopy: None Comment: slight ST depressions noted at baseline. Stress ECG: Sinus Tachycardia ST Change: Horizontal ST depression Lead(s): II, II, aVF, V4, V5, V6 Stage: [address] Deviation: 2 mm Arrhythmia: None Recovery ECG: Sinus Rhythm Recovery ST Change: Horizontal ST depression, Upsloping ST depression Lead(s): II, III, aVF, V4, V5, V6 Recovery ST Deviation: 1 mm Recovery Arrhythmia: None Clinical Reason for Termination: Fatigue, Chest pain/Anginal equivalent Stress Symptoms: Chest pain, General Fatigue Exercise duration: 09 min48 sec Highest Stage Reached: Stage 4: 4.2 mph at 16% grade. Exercise capacity: 11.44 METs Rate Pressure Product: [id number] Stress ECG Conclusion 1. Resting electrocardiogram showed left ventricular hypertrophy with minor repolarization abnormalit ies, long QTC 2. Patient exercised on the Ed protocol and completed a workload of 11.44 METS. Symptoms reported were chest pain and fatigue 3. Hypertensive blood pressure response to exercise. Normal heart rate response to exercise. Gabe holliday achieved 92% of predicted heart rate for age 4. Electrocardiographically the test was consistent with myocardial ischemia with an additional [address] depression noted in the inferior and anterolateral leads 5. There were no dysrhythmias Stress Test Summary STAGE Time (mins) Speed (mph) Grade (%) HR BP SYMPTOMS METS Supine 56 144/82 1/10 chest pain Standing 66 170/88 1 3 1.7 10 99 194/78 4.6 2 6 2.5 12 117 200/82 7 3 9 3.4 14 210/82 10.2 4 12 4.2 16 4/10 chest pain just before cessation of exercise 12.9 1 min recovery 119 220/78 4/10 chest pain lower than usual 3 min recovery 92 214/82 3/10 chest pain 6 min recovery 79 182/82 9 min recovery 76 172/88 3/10 chest pain Patient reports increase in chest pain at peak exercise that is in a different location than where sh e normally experiences chest discomfort (lower on the left chest). Chest pain is persistant and uncha nging. Patient denies need for medication to lessen chest pain. EKG had returned to baseline before d isconnecting. MPI Conclusion Normal myocardial perfusion without evidence of ischemia or prior infarction EF 68% Radiologist Interpretation Radiologist agrees with Utility Bagger's Interpretation. Radiologist Interpretation by: Toby Steward MD Interpretation Date/Time: 06/27/2021 09:42:46
== END 2021-06-25 01:05 ==
PROVIDERS: PCP Family Medicine; Visit Provider Family Medicine
DX: I20.9 Angina pectoris, unspecified (principal); I25.10 Atherosclerotic heart disease of native coronary artery without angina pectoris; Z82.49 Family history of ischemic heart disease and other diseases of the circulatory system; I10 Essential (primary) hypertension; E78.5 Hyperlipidemia, unspecified; Z87.891 Personal history of nicotine dependence; I25.2 Old myocardial infarction; Z95.5 Presence of coronary angioplasty implant and graft; I45.81 Long QT syndrome; I25.5 Ischemic cardiomyopathy
CPT/HCPCS: 78452; 93017

== ENCOUNTER 2021-07-16 11:11 | Outpatient (CLI) | payer MEDICAID, SELFPAY ==
--- NOTE | 2021-07-16 11:00 | RT.EKG_ITS ---
APPROVED REPORT Exam: Resting ECG Reason for Exam: CAD,UT Patient Location: O HR:67 bpm ECG Measurements Heart Rate 67 AXIS NV 121 P 26 QRSd 79 QRS 41 QT 416 T 37 QTc 439 Conclusion Sinus rhythm...normal P axis, V-rate 50- [address]-T abnormalities
== END 2021-07-16 11:12 | disposition home or self-care (01) ==
LOC: DI.CARD 11:14
PROVIDERS: PCP Family Medicine; Visit Provider Internal Medicine Cardiovascular Disease
DX: I25.10 Atherosclerotic heart disease of native coronary artery without angina pectoris (principal)
CPT/HCPCS: 93010

== ENCOUNTER 2021-07-18 02:26 | Outpatient (CLI) | payer MEDICAID, SELFPAY ==
--- NOTE | 2021-07-18 | DI.US_ITS ---
Exam(s) US CAROTID EXAM: US CAROTID CLINICAL HISTORY: CAD, I25.10,HYPERLIPIDEMIA,E78.5. TECHNIQUE: Ultrasound carotids performed using grayscale, color-flow, and spectral Doppler imaging. COMPARISON: US US carotid from 11/03/2018 FINDINGS: RIGHT CAROTID ARTERY: There is mild-moderate circumferential plaque evident in the distal right common carotid artery and c arotid bulb. Minimal plaque evident in proximal right ICA and above this level within this vessel in the upper neck. Velocities indicate mild stenosis (less than 50 percent) LEFT CAROTID ARTERY: There is mild-moderate circumferential noncalcified plaque also noted in the distal left common carot id artery left carotid bulb, slightly less than is present in the opposite-right side. Mild plaque a t the origin of the left internal carotid artery noted. Velocities indicate less than 50 percent isaiah nosis VERTEBRAL ARTERIES: Antegrade flow is demonstrated in both vertebral arteries Measurements: R Bulb: 70.7cm/s PS / 17.4cm/s ED R CCA: 79.1cm/s PS / 20.6cm/s ED R ECA: 148.1cm/s PS / 17.6cm/s ED R ICA Prox: 78.8cm/s PS /22.4cm/s ED R ICA Mid: 94.7cm/s PS / 31.8cm/s ED R ICA Distal: 112.8cm/s PS /38.3cm/s ED R Vert: 59.9cm/s PS / 8.4cm/s ED R SVR: 1.43 R DVR: 1.86 L Bulb: 84.5cm/s PS /22cm/s ED L CCA: 94.3cm/s PS / 21.4cm/s ED L ECA: 94.3cm/s PS /12.7cm/s ED L ICA Prox:100.9cm/s PS / 34.1cm/s ED L ICA Mid: 126.4cm/sPS / 37.2cm/s ED L ICA Distal: 92.5cm/s PS / 32.2cm/s ED L Vert: 74.6cm/s PS / 20.6cm/s ED L SVR: 1.34 L DVR: 1.74 IMPRESSION: There is some plaque at the level of both carotid bifurcations, slightly more on the right than the l eft side. Velocities indicate less than 50 percent stenosis bilaterally. Flow is demonstrated to be antegrade in both vertebral arteries. Criteria for Carotid Stenosis: Normal: ICA PSV <125 cm/s no plaque or intimal thickening is visible. <50% stenosis: ICA PSV <125 cm/s and plaque or intimal thickening is visible. 50-69% stenosis: ICA PSV is 125-250 cm/s and plaque is visible. >70% stenosis to near occlusion: ICA PSV >250 cm/s with visible plaque and luminal narrowing. DATA REPOSITORY:
== END 2021-07-18 02:46 ==
PROVIDERS: PCP Family Medicine; Visit Provider Family Medicine
DX: I25.10 Atherosclerotic heart disease of native coronary artery without angina pectoris (principal); I20.9 Angina pectoris, unspecified; E78.5 Hyperlipidemia, unspecified; I65.23 Occlusion and stenosis of bilateral carotid arteries
CPT/HCPCS: 93880

== ENCOUNTER 2021-07-26 11:18 | Outpatient (REF) | payer MEDICAID, SELFPAY ==
[2021-07-26 14:47] LABS: Abs Immature Grans 0.02 10^3/uL (0.0-0.06); Absolute Basophil Count 0.03 10^3/uL (0.0-0.2); Absolute Eosinophil Count 0.13 10^3/uL (0.0-0.7); Absolute Monocyte Count 0.45 10^3/uL (0.1-0.8); Absolute Neutrophil Count 5.02 10^3/uL (1.2-6.7); Basophils % 0.4; Eosinophils % 1.8; HCT 41.3 % (36.0-46.0); HGB 13.3 g/dL (11.2-15.7); Immature Grans % 0.3; Lymphocytes % 23.1; MCH 27.8 pg (27.0-33.0); MCHC 32.2 % (32.0-36.0); MCV 86.4 fL (80-95); MPV 10.2 fL (8.0-11.0); Monocytes % 6.1; Neutrophils % 68.3; Nucleated RBC 0 %; Platelet Count 265 10^3/uL (130-400); RBC 4.78 10^6/uL (3.93-5.22); RDW 13.4 % (11.7-14.6); RDW-SD 42.5 fL; WBC 7.35 10^3/uL (4.4-10.8)
[2021-07-26 15:50] LABS: Calculated LDL 226 mg/dL (<100); Cholesterol 316 mg/dL (<200); Ferritin 56 ng/mL (8-252); HDL Cholesterol 65 mg/dL (40-60); TSH (W/Ref FT4) 1.57 uIU/mL (0.36-3.74); Triglyceride 126 mg/dL (<150)
[2021-07-26 16:08] LABS: Iron 77 ug/dL (50-170); Total Iron Binding Capacity 305 ug/dL (250-450); Transferrin Sat 25 % (15-50)
[2021-07-29 01:59] LABS: Anaplasma phagocytophilum Negative (Negative); B. miyamotoi PCR Negative (Negative); Babesia divergens/MO-1 Negative (Negative); Babesia duncani Negative (Negative); Babesia microti Negative (Negative); Ehrlichia chaffeensis Negative (Negative); Ehrlichia ewingii/canis Negative (Negative); Ehrlichia muris eauclairensis Negative (Negative)
[2021-07-29 10:02] LABS: Lyme Ab w Rflx to Lyme Confirm Negative (Negative)
== END 2021-07-26 11:19 | disposition home or self-care (01) ==
LOC: NCHCN 11:18
PROVIDERS: PCP Family Medicine; Visit Provider Nurse Practitioner Family
DX: I10 Essential (primary) hypertension (principal); E03.9 Hypothyroidism, unspecified; I25.10 Atherosclerotic heart disease of native coronary artery without angina pectoris; R53.83 Other fatigue
CPT/HCPCS: 80061; 87798; 82728; 83540; 83550; 84443; 85025; 86618

== ENCOUNTER 2021-09-10 10:25 | Outpatient (REF) | payer MEDICAID, SELFPAY ==
--- NOTE | 2021-09-10 09:15 | PAPFT_PTH ---
PATIENT: Isa Ro LOC: [facility]#:[id number] AGE/SX: 56/F ROOM: RE09/10/[address]: Rosalba Archibald : 1965 BED: DIS: 09/10/2021 SPEC #: [id number] RECD: 09/10/21 17:37 STATUS: MATTY RELui #: [id number] ELISE: 09/10/21 09:[address]: Rosalba Archibald DEPT: [facility] Cytology RECD BY: Carrie Dominguez ENTERED: 09/10/21 17:43 SP TYPE: PAPFT DORIS DR: Isa Estrada Tissues: 1 - CX/ENDOCX FOR PAP SMEARS Procedures: PAP THIN PREP/UVM Screening HPV DNA PROBE Comments: [id number]
[2021-09-10 14:44] LABS: Hemoglobin A1C 5.3 % (<5.7)
[2021-09-10 15:09] LABS: Calculated LDL 239 mg/dL (<100); Cholesterol 339 mg/dL (<200); HDL Cholesterol 74 mg/dL (40-60); Triglyceride 130 mg/dL (<150); Vitamin B12 403 pg/mL (193-986)
[2021-09-12 00:20] LABS: Vitamin D 25 Total 32.3 ng/mL (30-100)
== END 2021-09-10 10:26 | disposition home or self-care (01) ==
LOC: NCHCN 10:25
PROVIDERS: PCP Family Medicine; Visit Provider Nurse Practitioner Family
DX: I10 Essential (primary) hypertension (principal); R53.83 Other fatigue; E03.9 Hypothyroidism, unspecified; I25.10 Atherosclerotic heart disease of native coronary artery without angina pectoris; G43.109 Migraine with aura, not intractable, without status migrainosus; I73.00 Raynaud's syndrome without gangrene; Z12.4 Encounter for screening for malignant neoplasm of cervix; R87.610 Atypical squamous cells of undetermined significance on cytologic smear of cervix (ASC-US); Z11.51 Encounter for screening for human papillomavirus (HPV)
CPT/HCPCS: 80061; 82306; 88142; 82607; 83036; 87624; 88304

== ENCOUNTER 2022-03-06 16:31 | Outpatient (REF) | payer MEDICAID, SELFPAY ==
[2022-03-08 12:10] LABS: COVID-19 RT-PCR UVMMC Result Negative (Negative)
== END 2022-03-06 16:32 | disposition home or self-care (01) ==
LOC: NCHCN 16:31
PROVIDERS: PCP Family Medicine; Visit Provider Family Medicine
DX: Z20.822 Contact with and (suspected) exposure to COVID-19 (principal); R05.8 Other specified cough
CPT/HCPCS: U0003

== ENCOUNTER 2022-12-08 13:24 | Outpatient (REF) | payer MEDICAID, SELFPAY ==
[2022-12-08 21:16] LABS: Abs Immature Grans 0.02 10^3/uL (0.0-0.06); Absolute Basophil Count 0.02 10^3/uL (0.0-0.2); Absolute Eosinophil Count 0.08 10^3/uL (0.0-0.7); Absolute Lymphocyte Count 1.51 10^3/uL (1.2-3.4); Absolute Monocyte Count 0.54 10^3/uL (0.1-0.8); Absolute Neutrophil Count 6.65 10^3/uL (1.2-6.7); Basophils % 0.2; Eosinophils % 0.9; HCT 41.3 % (36.0-46.0); HGB 13.5 g/dL (11.2-15.7); Immature Grans % 0.2; Lymphocytes % 17.1; MCH 27.7 pg (27.0-33.0); MCHC 32.7 % (32.0-36.0); MCV 85 fL (80-95); MPV 11.2 fL (8.0-11.0); Monocytes % 6.1; Neutrophils % 75.5; Platelet Count 232 10^3/uL (130-400); RBC 4.88 10^6/uL (3.93-5.22); RDW 13.7 % (11.7-14.6); RDW-SD 42.5 fL; WBC 8.82 10^3/uL (4.4-10.8)
[2022-12-08 22:02] LABS: Iron 99 ug/dL (50-170); Total Iron Binding Capacity 328 ug/dL (250-450); Transferrin Sat 30 % (15-50)
[2022-12-08 22:05] LABS: ALT 31 U/L (14-59); AST 19 U/L (15-37); Albumin 4.2 g/dL (3.4-5.0); Alkaline Phosphatase 69 U/L (46-116); BUN 20 mg/dL (7-18); Bilirubin, Total 0.5 mg/dL (0.2-1.0); Calcium 9.3 mg/dL (8.5-10.1); Calculated LDL 220 mg/dL (<100); Chloride 101 mmol/L (98-107); Cholesterol 321 mg/dL (<200); Ferritin 41 ng/mL (8-252); Glucose 88 mg/dL (74-106); HDL Cholesterol 75 mg/dL (40-60); Magnesium 2.1 mg/dL (1.8-2.4); Potassium 4.3 mmol/L (3.5-5.1); Sodium 137 mmol/L (136-145); TSH (W/Ref FT4) 2.25 uIU/mL (0.36-3.74); Total Protein 7.2 g/dL (6.4-8.2); Triglyceride 130 mg/dL (<150)
== END 2022-12-08 13:25 | disposition home or self-care (01) ==
LOC: NCHCN 13:24
PROVIDERS: PCP Family Medicine; Visit Provider Nurse Practitioner Family
DX: R63.5 Abnormal weight gain (principal); R42 Dizziness and giddiness; R05.8 Other specified cough; G43.109 Migraine with aura, not intractable, without status migrainosus; G47.62 Sleep related leg cramps; R79.89 Other specified abnormal findings of blood chemistry
CPT/HCPCS: 80053; 80061; 82728; 83540; 83550; 83735; 84443; 85025

== ENCOUNTER 2023-01-07 01:59 | Outpatient (CLI) | payer MEDICAID, SELFPAY ==
--- NOTE | 2023-01-07 | DI.US_ITS ---
Exam(s) US CAROTID EXAM: US CAROTID CLINICAL HISTORY: CAROTID ARTERY STENOSIS, I65.29. TECHNIQUE: Ultrasound carotids performed using grayscale, color-flow, and spectral Doppler imaging. COMPARISON: US US CAROTID from 07/18/2021 FINDINGS: RIGHT CAROTID ARTERY: Plaque: Mild noncalcified plaque bulb and proximal internal carotid artery.. Velocity elevation: None. LEFT CAROTID ARTERY: Plaque: Mild noncalcified plaque bulb and proximal internal carotid artery. Velocity elevation: None. VERTEBRAL ARTERIES: Antegrade flow. Measurements: R Bulb: 71.3cm/s PS / 20.2cm/s ED R CCA: 67.4cm/s PS / 15.3cm/s ED R ECA: 182.1cm/s PS / 18.7cm/s ED R ICA Prox: 101.9cm/s PS / 36.3cm/s ED R ICA Mid: 105.1cm/s PS / 44.9cm/s ED R ICA Distal: 114.3cm/s PS /50.4cm/s ED R Vert: 62cm/s PS / 5.6cm/s ED R SVR: 1.7 R DVR: 3.3 L Bulb: 89.8cm/s PS / 26.8cm/s ED L CCA: PS / 23.4cm/s ED L ECA: 83.2cm/s PS / 13.9cm/s ED L ICA Prox: 118.9cm/s PS / 42.7cm/s ED L ICA Mid: 116.7cm/s PS / 34cm/s ED L ICA Distal: 84.1cm/s PS / 27.4cm/s ED L Vert: 81.4cm/s PS / 24.8cm/s ED L SVR: 1.5 L DVR: 1.8 IMPRESSION: No evidence for hemodynamically significant carotid stenosis. No significant change from prior. Criteria for Carotid Stenosis: Normal: ICA PSV <125 cm/s no plaque or intimal thickening is visible. <50% stenosis: ICA PSV <125 cm/s and plaque or intimal thickening is visible. 50-69% stenosis: ICA PSV is 125-250 cm/s and plaque is visible. >70% stenosis to near occlusion: ICA PSV >250 cm/s with visible plaque and luminal narrowing. DATA REPOSITORY:
--- NOTE | 2023-01-07 | DI.US_ITS ---
Exam(s) US PELVIS TRANSVAGINAL EXAM: US PELVIS TRANSVAGINAL CLINICAL HISTORY: ABDOMINAL BLOATING, R14.0, ABNL CERVICAL PAP, R87.610 TECHNIQUE: Transabdominal and transvaginal imaging was performed using standard protocol. COMPARISON: CT ABD PELVIS WITH CONTRAST from 09/11/2016 FINDINGS: UTERUS: Anteverted. 5.4 x 2.7 x 4.0 cm Endometrium: 3 mm Myometrium: 1.6 centimeter fundal fibroid. Cervix: Unremarkable. OVARIES: Right: Not visualized Left: Cyst or mass: None. CUL-DE-SAC: Free fluid: None. IMPRESSION: 1. 0.6 centimeter fundal fibroid. Endometrial stripe within normal limits. 2. Unremarkable left ovary. Right ovary not visualized. DATA REPOSITORY:
== END 2023-01-07 02:19 ==
LOC: DI 01:59
PROVIDERS: PCP Family Medicine; Visit Provider Nurse Practitioner Family
DX: R14.0 Abdominal distension (gaseous) (principal); R87.610 Atypical squamous cells of undetermined significance on cytologic smear of cervix (ASC-US)
CPT/HCPCS: 76830; 76856; 93880

== ENCOUNTER 2023-03-11 02:12 | Outpatient (CLI) | payer MEDICAID, SELFPAY ==
--- NOTE | 2023-03-11 09:05 | DI.MAMMO_ITS ---
Exam(s) MAMMO SCREENING EXAM: MAMMO SCREENING CLINICAL HISTORY: SCREENING, Z12.39, FAM HX BREAST CA, Z80.3 TECHNIQUE: Bilateral full field digital CC and MLO mammographic images were obtained with 3D tomosyn thesis and utilizing computer aided detection (CAD). COMPARISON: Comparison examination is 01/07/2000. FINDINGS: Masses/Architectural Distortion: None seen. Microcalcifications: No suspicious pleomorphic-type are seen. Skin Thickening/Nipple Retraction: None. IMPRESSION: 1. No significant interval change with no specific features of malignancy noted. 2. Unless there is more urgent need, screening mammography is recommended, as per [employer] guidelines. BI-RADS Category 1 - Negative Breast Density - Category B - Scattered areas of fibroglandular density Breast density category C or D implies that the patient has dense breast tissue. Dense breast tissue is very common and is not abnormal but dense breast tissue can make it harder to find cancer on a ma mmogram. Also, dense breast tissue may increase their breast cancer risk. This information about the result of the mammogram report was provided to the patient to raise their awareness. Use this report when you speak with the patient about their risks for breast cancer, which includes their family hist ory. At that time, you may recommend for more screening tests (Ultrasound or MRI) as they might be us eful based on their risk. A negative radiographic report should not delay biopsy if a dominant or clinically suspicious mass is present. Up to ten percent of cancers are not identified on mammography. A negative report may reinforce clinical impression. Adenosis and dense breasts may obscure an underlying neoplasm. False positive reports average 6 to 10%. Patient will receive a letter notifying them of these results.
== END 2023-03-11 02:32 ==
LOC: DI 02:13
PROVIDERS: PCP Family Medicine; Visit Provider Nurse Practitioner Family
DX: Z12.31 Encounter for screening mammogram for malignant neoplasm of breast (principal); Z80.3 Family history of malignant neoplasm of breast
CPT/HCPCS: 77063; 77067

== ENCOUNTER 2023-06-24 08:16 | Emergency (ER) | payer MEDICAID, SELFPAY ==
[2023-06-24 08:19] VITALS: BP 204/97; PULSE 65; TEMP 36.5; O2SAT 100
[2023-06-24 09:13] LABS: Abs Immature Grans 0.03 10^3/uL (0.0-0.06); Absolute Basophil Count 0.04 10^3/uL (0.0-0.2); Absolute Eosinophil Count 0.26 10^3/uL (0.0-0.7); Absolute Lymphocyte Count 2.02 10^3/uL (1.2-3.4); Absolute Monocyte Count 0.64 10^3/uL (0.1-0.8); Absolute Neutrophil Count 6.41 10^3/uL (1.2-6.7); Basophils % 0.4; Eosinophils % 2.8; HCT 43.3 % (36.0-46.0); HGB 14.3 g/dL (11.2-15.7); Immature Grans % 0.3; Lymphocytes % 21.5; MCH 27.4 pg (27.0-33.0); MCV 83 fL (80-95); MPV 9.5 fL (8.0-11.0); Monocytes % 6.8; Neutrophils % 68.2; Platelet Count 307 10^3/uL (130-400); RBC 5.21 10^6/uL (3.93-5.22); RDW 13.9 % (11.7-14.6); RDW-SD 42.6 fL
[2023-06-24] MEDS: Losartan 25 MG TAB 12.5 MG PO (09:15)
[2023-06-24 09:36] LABS: ALT 32 U/L (14-59); AST 18 U/L (15-37); Albumin 3.9 g/dL (3.4-5.0); Alkaline Phosphatase 76 U/L (46-116); Anion Gap 6.4 mmol/L (3-11); BUN 17 mg/dL (7-18); Bilirubin, Total 0.5 mg/dL (0.2-1.0); CO2 28.6 mmol/L (21.0-32.0); CREATININE 0.9 mg/dL (0.55-1.02); Calcium 9.7 mg/dL (8.5-10.1); Chloride 103 mmol/L (98-107); Estimated GFR 73.64 (mL/min/1.73m2); Glucose 99 mg/dL (74-106); Potassium 4.2 mmol/L (3.5-5.1); Sodium 138 mmol/L (136-145); TSH (W/Ref FT4) 3.48 uIU/mL (0.36-3.74); Total Protein 7.8 g/dL (6.4-8.2)
[2023-06-24 10:22] VITALS: BP 208/62; PULSE 57; RESP 18; O2SAT 100
--- NOTE | 2023-06-24 15:48 | ED.GENADUL_ITS ---
Discharge Plan Disposition Patient Disposition: Home Condition: Stable Discharge Details Clinical Impression: Fatigue, Tick bite, Elevated blood pressure reading with diagnosis of hypertension Primary Care Provider: Isa Estrada ED Provider: Carrie Kuo Home Meds and New Rx's Prescriptions: New doxycycline hyclate 100 mg tablet 100 mg PO BID Qty: 20 0RF Continued bisacodyl [Dulcolax (bisacodyl)] 5 mg tablet,delayed release (DR/EC) 5 mg PO .take as directed Qty: 4 0RF Patient Comments: not taking 06/24/23 polyethylene glycol 3350 [Miralax] 17 gram/dose powder 238 g PO .Take as directed Qty: 238 0RF alprazolam [Xanax] 0.5 MG tablet 0.5 mg PO prn flying nitroglycerin [Nitrostat] 0.4 MG tablet, sublingual 0.4 mg Buccal ONCE acetaminophen [Tylenol Extra Strength] 500 MG tablet 500 mg PO PRN PRN ibuprofen [Advil] 200 MG tablet 1 tab PO PRN PRN Patient Comments: not taking 06/24/23 Emergen-C 1,000 mg Powder Effervescent In Packet 1 ea PO PRN PRN Home Made Herbal Tinctures 1 dose PO PRN PRN losartan 25 mg tablet 12.5 mg DAILY Patient Comments: not taking 06/24/23 omega-3 fatty acids Capsule 1 cap PO DAILY Rx Instructions: unknown dose cholecalciferol (vitamin D3) [Vitamin D3] 25 mcg (1,000 unit) Tablet 25 mcg PO DAILY Rx Instructions: PT unknown dose Discharge Instructions Instructions: Tick Bite (ED), Hypertension (ED), Fatigue (ED) Additional Instructions: Start taking your losartan again, your blood pressure is very high, please follow-up with your doctor Your tests today are all reassuring, your tick panel will likely be negative unless you have had exposure earlier this summer, I am giving you prescription for doxycycline for your recent tick bite unfortunately you do not qualify for the single dose treatment given that the bites occurred greater than 72 hours after presentation Your COVID test was negative Please follow-up with PCP or return to the emergency department should you have persistent or worsening symptoms Referrals: Isa Estrada [Primary Care Provider] - Discharge Data Discharge Date/Time-TO BE ENTERED AT DEPARTURE: 06/24/23 10:35 Medical Decision Making 58-year-old female presenting with multiple complaints, has chemosis to her left eye, no visible sign of foreign body, pupils equal round reactive to light and accommodation, cranial nerves II through XII intact, ambulatory steady gait, lungs clear to auscultation, cardiac rate rhythm regular, no meningismus, no rashes or lesions significant chemosis to conjunctiva, will use allergy eyedrops and follow-up with [facility] tomorrow should she have persistent symptoms Her neurological exam is benign, she is alert and oriented, she is ambulatory with steady gait, her blood pressure is elevated, she is not displaying any signs of endorgan disease, I will patient reinitiate her losartan, she was given a dose in the emergency department COVID swab was negative, diagnostic labs do not show evidence of acute abnormality Patient is referred back to her primary care physician and will initiate her losartan, tick panel will not return for several days, I did give patient a 10- day course of doxycycline empirically Return precautions reviewed and patient expressed understanding HPI General Date/Time Provider Initiated Documentation: 06/24/23 08:30 . HPI Narrative: This 58-year-old female presents with multiple tick bites last week, 1 on and one on Thursday, does not feel the tick was engorged. States she has had fatigue and intermittent headaches, and myalgias. She denies any new medications. She also has irritation to her left eye which started this morning. She took Tylenol this morning denies any current headache. Triage nurse reports patient's blood pressure is elevated, patient states she has not taken her antihypertensive for the duration of the summer. Denies chest pain or shortness of breath. Related Data Home Medications Medication Instructions Recorded Confirmed acetaminophen 500 mg tablet 500 mg PO PRN PRN 07/27/15 06/24/23 (Tylenol Extra Strength) ibuprofen 200 mg tablet (Advil) 1 tab PO PRN PRN 08/26/15 01/08/23 alprazolam 0.5 mg tablet (Xanax) 0.5 mg PO prn flying 05/11/18 06/24/23 nitroglycerin 0.4 mg sublingual 0.4 mg buccal ONCE 05/11/18 06/24/23 tablet (Nitrostat) ascorbic acid 1,000 1 ea PO PRN PRN 06/15/18 06/24/23 [id number] powder effervescent pack (Emergen-C) Home Made Herbal Tinctures 1 dose PO PRN PRN 07/21/19 06/24/23 losartan 25 mg tablet 12.5 mg DAILY 06/05/21 01/08/23 cholecalciferol (vitamin D3) 25 25 mcg PO DAILY 06/17/21 06/24/23 mcg (1,000 unit) tablet (Vitamin D3) omega-3 fatty acids 1 cap PO DAILY 06/17/21 06/24/23 bisacodyl 5 mg tablet,delayed 5 mg PO .take as directed 12/18/22 01/08/23 release (Dulcolax (bisacodyl)) Colonoscopy prep #4 tabs polyethylene glycol 3350 17 238 g PO .Take as directed For 12/18/22 01/08/23 gram/dose oral powder (Miralax) colonoscopy prep #238 grams doxycycline hyclate 100 mg tablet 100 mg PO BID #20 tabs 06/24/23 Previous Rx's Medication Instructions Recorded bisacodyl 5 mg tablet,delayed 5 mg PO .take as directed 12/18/22 release (Dulcolax (bisacodyl)) Colonoscopy prep #4 tabs polyethylene glycol 3350 17 238 g PO .Take as directed For 12/18/22 gram/dose oral powder (Miralax) colonoscopy prep #238 grams doxycycline hyclate 100 mg tablet 100 mg PO BID #20 tabs 06/24/23 Allergies Allergy/AdvReac Type Severity Reaction Status Date / Time hydrochlorothiazide Allergy unknown Verified 06/24/23 08:22 lisinopril Allergy unknown Verified 06/24/23 08:22 dust Allergy Mild Itching Uncoded 06/24/23 08:22 mold Allergy Uncoded 06/24/23 08:22 General Stated Complaint: GenMedical ZORAIDA: 3 PFSH All Active Problems (Updated 06/24/23 @ 10:09 by KANG Nagy) Elevated blood pressure reading with diagnosis of hypertension (Acute) Tick bite (Acute) Fatigue (Acute) Abdominal bloating (Acute) RLQ abdominal pain (Acute) Recurrent epistaxis (Acute) ASCVD (arteriosclerotic cardiovascular disease) (Acute) Right flank pain (Acute) Hyperlipidemia (Chronic) GERD (gastroesophageal reflux disease) (Chronic) HTN (hypertension) with goal to be determined (Acute) Rash (Acute) Neck pain (Acute) Duodenitis (Acute) Chronic fatigue and malaise (Acute) Sciatica, unspecified side (Acute) Headache, post-traumatic (Acute) Pain, joint, shoulder, right (Acute) Migraine aura without headache (Chronic) Migraine headache with aura (Chronic) Disorder of vision (Acute 11/28/13) Difficulty speaking (Acute 11/28/13) Blurring of visual image (Acute 11/28/13) Change in bowel habits (Acute) Medical History Abdominal pain Asthma, exercise induced Constipation Dysphagia Family history of colon cancer History of placement of stent in LAD coronary artery 03/2014 [facility] Hypertension Hypothyroidism No-show for appointment Preventative health care Tick bite Surgical History H/O colonoscopy (06/18/18) Dr Mauricio, normal, repeat in 10 years History of History of coronary artery stent placement History of esophagogastroduodenoscopy (EGD) (06/18/18) Dr Mauricio, normal, repeat PRN Family History Father Glioblastoma Hyperlipidemia Heart disease Paternal Grandmother Glioblastoma Mother Hypertension Heart disease Social History Smoking/Tobacco Use Status: Former Tobacco Use Quit Date: 09/14/03 Tobacco: How many years used: 10 Smoking risk assessment performed?: Yes Alcohol Intake: current Alcohol Intake frequency: 0-2 drinks per day Alcohol type: beer and hard liquor Drug use: Occasionally Substance use type: marijuana Household members: family Number of Children: 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 Course Vital Signs Vital signs: Vital Signs Temperature 36.5 C 06/24/23 08:19 Pulse 65 06/24/23 08:19 Blood Pressure 204/97 H 06/24/23 08:19 Pulse Oximetry 100 06/24/23 08:19 Temperature 36.5 C 06/24/23 08:19 Temperature Source Skin 06/24/23 08:19 Pulse 57 L 06/24/23 10:22 Respiratory Rate 18 06/24/23 10:22 Respiratory Effort Normal 06/24/23 10:06 Blood Pressure 208/62 H 06/24/23 10:22 Blood Pressure Position Sitting 06/24/23 08:19 Pulse Oximetry 100 06/24/23 10:22 Oxygen Delivery Method Room Air 06/24/23 10:22 Oxygen Flow Rate 0 06/24/23 10:22 Pain Level 4 06/24/23 08:19 Lab/Test Results Lab/Test Results: Laboratory Tests Range/Units 06/24/23 06/24/23 09:02 09:02 WBC (4.4-10.8) 10^3/uL 9.40 RBC (3.93-5.22) 10^6/uL 5.21 Hgb (11.2-15.7) g/dL 14.3 Hct (36.0-46.0) % 43.3 MCV (80-95) fL 83 MCH (27.0-33.0) pg 27.4 MCHC (32.0-36.0) % 33.0 RDW (11.7-14.6) % 13.9 Plt Count (130-400) 10^3/uL 307 MPV (8.0-11.0) fL 9.5 Immature Gran % 0.3 Neutrophils % 68.2 Lymphocytes % 21.5 Monocytes % 6.8 Eosinophils % 2.8 Basophils % 0.4 Nucleated RBC % (0.0-0.3) % 0.0 Absolute Neutrophils (1.2-6.7) 10^3/uL 6.41 Absolute Lymphocytes (1.2-3.4) 10^3/uL 2.02 Absolute Monocytes (0.1-0.8) 10^3/uL 0.64 Absolute Eosinophils (0.0-0.7) 10^3/uL 0.26 Absolute Basophils (0.0-0.2) 10^3/uL 0.04 Sodium (136-145) mmol/L 138 Potassium (3.5-5.1) mmol/L 4.2 Chloride (98-107) mmol/L 103 Carbon Dioxide (21.0-32.0) mmol/L 28.6 Anion Gap (3-11) mmol/L 6.4 BUN (7-18) mg/dL 17 Creatinine (0.55-1.02) mg/dL 0.9 Est GFR (CKD-EPI 2020) (mL/min/1.73m2) 73.64 Glucose (74-106) mg/dL 99 Calcium (8.5-10.1) mg/dL 9.7 Total Bilirubin (0.2-1.0) mg/dL 0.5 AST (15-37) U/L 18 ALT (14-59) U/L 32 Alkaline Phosphatase (46-116) U/L 76 Total Protein (6.4-8.2) g/dL 7.8 Albumin (3.4-5.0) g/dL 3.9 TSH (0.36-3.74) uIU/mL 3.48 PAWSS Have you Been Recently Intoxicated or Drunk Within the Last 30 days?: Yes Have you Ever Experienced Previous Episodes of Alcohol Withdrawal?: No Have you ever Experienced Withdrawal Seizures?: No Have you ever Experienced Delirium Tremens(DT)s?: No Have you ever undergone Alcohol Rehabilitation Treatment (i.e, inpt ot outpatient treatment programs)?: No Have you ever Experienced Blackouts?: No Have you ever Combined Alcohol with other Downers within the last 90 days?: No Have you ever Combined Alcohol with any other Substance of Abuse during the last 90 days?: No Positive Blood Alcohol level on Presentation? [PCS.BAL]: No Evidence of Increased Autonomic Activity (i.e. HR>120, tremor, sweating, agitation, nausea)?: No Result: 1
[2023-06-25 11:04] LABS: Lyme Ab w Rflx to Lyme Confirm Negative (Negative)
[2023-06-26 17:26] LABS: Anaplasma phagocytophilum Negative (Negative); B. miyamotoi PCR Negative (Negative); Babesia divergens/MO-1 Negative (Negative); Babesia duncani Negative (Negative); Babesia microti Negative (Negative); Ehrlichia chaffeensis Negative (Negative); Ehrlichia ewingii/canis Negative (Negative); Ehrlichia muris eauclairensis Negative (Negative)
== END 2023-06-24 10:35 | disposition home or self-care (01) ==
PROVIDERS: Emergency Provider Physician Assistant; PCP Family Medicine
DX: R53.83 Other fatigue; H57.12 Ocular pain, left eye; W57.XXXA Bitten or stung by nonvenomous insect and other nonvenomous arthropods, initial encounter; I10 Essential (primary) hypertension
CPT/HCPCS: 36415; 80053; 87426; 87798; 99283; 84443; 85025; 86618; 99284

== ENCOUNTER → 2023-08-28 10:21 | Outpatient (CLI) | payer MEDICAID, SELFPAY | PROVIDERS: PCP Family Medicine; Visit Provider Nurse Practitioner Family | DX: I25.42 Coronary artery dissection (principal); I10 Essential (primary) hypertension | CPT/HCPCS: 93306 ==

== ENCOUNTER 2023-09-08 20:32 | Outpatient (REF) | payer MEDICAID, SELFPAY | END 2023-09-08 20:33 | disposition home or self-care (01) | LOC: NCHCN 20:32 | PROVIDERS: PCP Family Medicine; Visit Provider Physician Assistant | DX: J02.9 Acute pharyngitis, unspecified (principal) | CPT/HCPCS: 87070 ==

== ENCOUNTER 2023-09-19 14:12 | Emergency (ER) | payer MEDICAID, SELFPAY ==
[2023-09-19 14:15] VITALS: BP 255/75; PULSE 69; RESP 16; O2SAT 100
[2023-09-19 14:38] VITALS: RESP 16
--- NOTE | 2023-09-19 14:38 | W.ED.GENAD ---
HPI General Stated Complaint: GenMedical Mode of arrival: ambulatory. ZORAIDA: 3 Date/Time Provider Initiated Documentation: 09/19/23 14:37. Limitations to Documentation: no limitations. Information obtained by: patient, RN/MD and RN notes reviewed. History of Present Illness Facial shingles moderate and severe face day(s) (3) constant Medication improves symptom(s), No exacerbating factors reported no other symptoms. NSAID Related Data Home Medications Medication Instructions Recorded Confirmed acetaminophen 500 mg tablet 500 mg PO PRN PRN 07/27/15 09/19/23 (Tylenol Extra Strength) ibuprofen 200 mg tablet (Advil) 1 tab PO PRN PRN 08/26/15 09/19/23 alprazolam 0.5 mg tablet (Xanax) 0.5 mg PO prn flying 05/11/18 09/19/23 nitroglycerin 0.4 mg sublingual 0.4 mg buccal ONCE 05/11/18 09/19/23 tablet (Nitrostat) ascorbic acid 1,000 1 ea PO PRN PRN 06/15/18 09/19/23 ah-lvytpajgzdij-qybtyvrk powder effervescent pack (Emergen-C) Home Made Herbal Tinctures 1 dose PO PRN PRN 07/21/19 09/19/23 losartan 25 mg tablet 12.5 mg PO DAILY 06/05/21 09/19/23 cholecalciferol (vitamin D3) 25 25 mcg PO DAILY 06/17/21 09/19/23 mcg (1,000 unit) tablet (Vitamin D3) omega-3 fatty acids 1 cap PO DAILY 06/17/21 09/19/23 bisacodyl 5 mg tablet,delayed 5 mg PO .take as directed 12/18/22 09/19/23 release (Dulcolax (bisacodyl)) Colonoscopy prep #4 tabs polyethylene glycol 3350 17 238 g PO .Take as directed For 12/18/22 09/19/23 gram/dose oral powder (Miralax) colonoscopy prep #238 grams gabapentin 300 mg capsule See Rx Instructions .Route 09/19/23 .COMPLEX #6 caps lidocaine 5 % topical cream 1 applic topical QID PRN #15 grams 09/19/23 prednisone 20 mg tablet 40 mg (2 x 20 mg) PO DAILY #8 tabs 09/19/23 Previous Rx's Medication Instructions Recorded bisacodyl 5 mg tablet,delayed 5 mg PO .take as directed 12/18/22 release (Dulcolax (bisacodyl)) Colonoscopy prep #4 tabs polyethylene glycol 3350 17 238 g PO .Take as directed For 12/18/22 gram/dose oral powder (Miralax) colonoscopy prep #238 grams gabapentin 300 mg capsule See Rx Instructions .Route 09/19/23 .COMPLEX #6 caps lidocaine 5 % topical cream 1 applic topical QID PRN #15 grams 09/19/23 prednisone 20 mg tablet 40 mg (2 x 20 mg) PO DAILY #8 tabs 09/19/23 Allergies Allergy/AdvReac Type Severity Reaction Status Date / Time hydrochlorothiazide Allergy unknown Verified 09/19/23 14:19 lisinopril Allergy unknown Verified 09/19/23 14:19 dust Allergy Mild Itching Uncoded 09/19/23 14:19 mold Allergy Uncoded 09/19/23 14:19 Review of Systems Constitutional Constitutional: Denies chills and Denies fever(s) Eyes Eyes: Denies change in vision, Denies irritation and Denies eye pain ENT Ears, Nose, Mouth, and Throat: Reports as per HPI, Denies ear discharge, Denies otalgia, Reports facial pain, Denies odynophagia, Denies sore throat and Denies throat swelling Gastrointestinal Gastrointestinal: Denies odynophagia Integumentary/Breasts Skin/Breast: Reports as per HPI and Reports rash Allergic/Immunologic Allergic/Immunologic: Denies throat swelling PFSH All Active Problems Herpes zoster (Acute) Abdominal bloating (Acute) RLQ abdominal pain (Acute) Recurrent epistaxis (Acute) ASCVD (arteriosclerotic cardiovascular disease) (Acute) Right flank pain (Acute) Hyperlipidemia (Chronic) GERD (gastroesophageal reflux disease) (Chronic) HTN (hypertension) with goal to be determined (Acute) Rash (Acute) Neck pain (Acute) Duodenitis (Acute) Chronic fatigue and malaise (Acute) Sciatica, unspecified side (Acute) Headache, post-traumatic (Acute) Pain, joint, shoulder, right (Acute) Migraine aura without headache (Chronic) Migraine headache with aura (Chronic) Disorder of vision (Acute 11/28/13) Difficulty speaking (Acute 11/28/13) Blurring of visual image (Acute 11/28/13) Change in bowel habits (Acute) Medical History Family history of colon cancer History of placement of stent in LAD coronary artery 03/2014 [facility] No-show for appointment Preventative health care Constipation Hypertension Abdominal pain Asthma, exercise induced Tick bite Hypothyroidism Dysphagia Surgical History H/O colonoscopy (06/18/18) vini Burrows, repeat in 10 years History of esophagogastroduodenoscopy (EGD) (06/18/18) vini Burrows, repeat PRN History of History of coronary artery stent placement Family History Father Glioblastoma Hyperlipidemia Heart disease Paternal Grandmother Glioblastoma Mother Hypertension Heart disease Social History Smoking/Tobacco Use Status: Former Tobacco Use Quit Date: 09/14/03 Tobacco: How many years used: 10 Smoking risk assessment performed?: Yes Alcohol Intake: current Alcohol Intake frequency: 0-2 drinks per day Alcohol type: beer and hard liquor Drug use: Occasionally Substance use type: marijuana Household members: family Number of Children: 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 PAWSS Have you Been Recently Intoxicated or Drunk Within the Last 30 days?: No Have you Ever Experienced Previous Episodes of Alcohol Withdrawal?: No Have you ever Experienced Withdrawal Seizures?: No Have you ever Experienced Delirium Tremens(DT)s?: No Have you ever undergone Alcohol Rehabilitation Treatment (i.e, inpt ot outpatient treatment programs)?: No Have you ever Experienced Blackouts?: No Have you ever Combined Alcohol with other Downers within the last 90 days?: No Have you ever Combined Alcohol with any other Substance of Abuse during the last 90 days?: No Positive Blood Alcohol level on Presentation? [PCS.BAL]: No Evidence of Increased Autonomic Activity (i.e. HR>120, tremor, sweating, agitation, nausea)?: No Result: 0 Exam Const General: cooperative, no acute distress and not ill appearing Orientation: alert, awake and oriented x3 HENMT Mouth: moist mucous membranes Resp Effort & Inspection: normal respiratory effort, able to speak in complete sentences and no respiratory distress Skin Rashes: rashes noted vesicles left face arrangement clustered and tender Neuro General: patient alert, patient awake, patient oriented x3 and moves all extremities Sensory Exam: no sensory deficits noted Course Vital Signs Vital signs: Vital Signs Pulse 69 09/19/23 14:15 Respiratory Rate 16 09/19/23 14:15 Blood Pressure 255/75 H 09/19/23 14:15 Pulse Oximetry 100 09/19/23 14:15 Pulse 69 09/19/23 14:15 Respiratory Rate 16 09/19/23 14:15 Respiratory Effort Normal, Non-Labored 09/19/23 14:21 Blood Pressure 255/75 H 09/19/23 14:15 Blood Pressure Position Sitting 09/19/23 14:15 Pulse Oximetry 100 09/19/23 14:15 Oxygen Delivery Method Room Air 09/19/23 14:15 Oxygen Flow Rate 0 09/19/23 14:15 Medical Decision Making Patient presenting from urgent care clinic for discussion of further pain control of her facial zoster. Patient states earlier this week she thought she had a dental infection and was placed upon antibiotic. Then she started noticing this morning some sores and lesions to her face and went to urgent care. She was diagnosed with zoster and placed on antivirals and viscous lidocaine for discomfort. Patient concerned that this will not be enough to manage her pain. Physical exam shows obvious findings of zoster to the left side of patient's face in the facial nerve distribution no signs of [place] Ellis syndrome or ocular involvement on basic visual exam. Patient also denies any ocular pain discomfort or redness. Discussed with patient additional options including gabapentin along with steroids and lidocaine cream for scalp and other nonmucosal areas of involvement. She was agreeable to try these. Given that I only noticed four lesions I do not feel that patient needs opioids at this time. It was also noted that patient had elevated blood pressure but she states that she had stopped her losartan given that she has been taking ibuprofen. I did inform her that she could continue to use these on a limited basis and I do think that patient should follow-up with primary care provider for reassessment to ensure that she is improving on the antivirals already prescribed along with the additional pain medication. After discussion of diagnosis and plan of care patient has no further needs, questions, or concerns and states clear understanding to return to the emergency department for any worsening symptoms. This documentation was generated using [employer] dictation system, please disregard any oddities of phrase or misspellings. Quality:SDOH Health Related Social Needs: No Data to Display Discharge Plan Disposition Patient Disposition: Home Condition: Stable Discharge Details Clinical Impression: Herpes zoster, HTN (hypertension) with goal to be determined Primary Care Provider: Isa Estrada ED Provider: Yusuf Joshi Home Meds and New Rx's Prescriptions: New gabapentin 300 mg capsule See Rx Instructions .ROUTE .COMPLEX Qty: 6 0RF Rx Instructions: 300 mg orally on day one, 300mg BID day 2, and 300mg TID day 3 prednisone 20 mg tablet 40 mg PO DAILY Qty: 8 0RF lidocaine 5 % cream 1 applic topical QID PRNQty: 15 1RF Rx Instructions: Apply to intact skin only and do not use on mucosal membranes Continued bisacodyl [Dulcolax (bisacodyl)] 5 mg tablet,delayed release (DR/EC) 5 mg PO .take as directed Qty: 4 0RF Patient Comments: not taking 06/24/23 polyethylene glycol 3350 [Miralax] 17 gram/dose powder 238 g PO .Take as directed Qty: 238 0RF alprazolam [Xanax] 0.5 MG tablet 0.5 mg PO prn flying nitroglycerin [Nitrostat] 0.4 MG tablet, sublingual 0.4 mg Buccal ONCE acetaminophen [Tylenol Extra Strength] 500 MG tablet 500 mg PO PRN PRN ibuprofen [Advil] 200 MG tablet 1 tab PO PRN PRN Patient Comments: not taking 06/24/23 Emergen-C 1,000 mg Powder Effervescent In Packet 1 ea PO PRN PRN Home Made Herbal Tinctures 1 dose PO PRN PRN losartan 25 mg tablet 12.5 mg PO DAILY Patient Comments: not taking 06/24/23 omega-3 fatty acids Capsule 1 cap PO DAILY Rx Instructions: unknown dose cholecalciferol (vitamin D3) [Vitamin D3] 25 mcg (1,000 unit) Tablet 25 mcg PO DAILY Rx Instructions: PT unknown dose Discharge Instructions Instructions: Shingles (ED), Hypertension (ED) Additional Instructions: Your blood pressure was elevated at the emergency department visit and I do feel that this is secondary to stopping your losartan. You may resume that medication. On top of the prescribed medication for your shingles please feel free to utilize [id number] medications for pain and discomfort. It is recommended that you take no more than 600 of ibuprofen along with 650 of acetaminophen every 6 hours as needed for pain and discomfort. Return to the emergency department if you have any new or significant worsening of symptoms otherwise follow-up with your primary care provider preferably in the next week for recheck of your shingles. Referrals: Isa Estrada [Primary Care Provider] - 1 week Discharge Data Discharge Date/Time-TO BE ENTERED AT DEPARTURE: 09/19/23 15:00
== END 2023-09-19 15:00 | disposition home or self-care (01) ==
PROVIDERS: Emergency Provider Nurse Practitioner Family; PCP Family Medicine
DX: B02.9 Zoster without complications (principal); I10 Essential (primary) hypertension
CPT/HCPCS: 99283

== ENCOUNTER 2023-12-13 14:27 | Emergency (ER) | payer MEDICAID, SELFPAY ==
[2023-12-13 14:30] VITALS: BP 152/72; PULSE 70; RESP 16; TEMP 37.1; O2SAT 99
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
[2023-12-13 16:16] VITALS: BP 152/72; PULSE 70; RESP 16; TEMP 37.1; O2SAT 99
== END 2023-12-13 16:29 | disposition home or self-care (01) ==
PROVIDERS: Emergency Provider Nurse Practitioner Family; PCP Family Medicine
DX: S05.01XA Injury of conjunctiva and corneal abrasion without foreign body, right eye, initial encounter (principal); I10 Essential (primary) hypertension; I25.10 Atherosclerotic heart disease of native coronary artery without angina pectoris; Z95.5 Presence of coronary angioplasty implant and graft; Z87.891 Personal history of nicotine dependence; W22.8XXA Striking against or struck by other objects, initial encounter; Y93.89 Activity, other specified
CPT/HCPCS: 99283

== ENCOUNTER 2024-01-15 21:04 | Outpatient (REF) | payer MEDICAID, SELFPAY | END 2024-01-15 21:05 | disposition home or self-care (01) | LOC: LBN 21:04 | PROVIDERS: PCP Family Medicine; Visit Provider Physician Assistant Medical | DX: J02.9 Acute pharyngitis, unspecified (principal) | CPT/HCPCS: 87070 ==

== ENCOUNTER 2024-04-13 10:33 | Outpatient (RCR) | payer MEDICAID, SELFPAY ==
--- OUTSIDE RECORDS SUMMARY | 2024-03-30 13:26 | XMS_ITS | Encounter Summary ---
Author Organization [facility] Address [address] [place] [address] Care Team Providers Care Returns Supervisor Name Role Phone Pretty Avery MD Primary Care Provider [phone] Encounter Details Date Type Department Care Team (Late st Contact Info) Description 07/26/[address] [facility] [place] [address] Outr Resulting Lab, Provider Social History Tobacco Use Types Packs/Day Years Used Date Smoking Tobacco: Former Comments:quit 10 yars ago Alcohol Use Standard Drinks/Week Comments Yes 5.8 (1 standard drink = 0.6 oz p ure alcohol) less now 2-3/week Interpersonal Safety Answer Date Record ed Physically Hurt Never 04/15/2020 Verbally Threaten Not on file 04/15/2020 Sex and Gender Information Value Date Recorded Sex Assigned at Not on file Gender Identity Not on file Sexual Orientation Not on file documented as of this encounter Functional Status Functional Status Response Date of Assess ment Are you deaf or do you have serious difficulty h earing? No 03/30/2014 Are you blind or do you have serious difficulty seeing, even when wearing glasses? No 03/30/2014 documented as of this encounter Plan of Treatment Not on file documented as of this encounter Procedures Procedure Name Priority Date/Time Associated Diagnosis Comments LYME AB Routine 07/26/2021 10:55 EST documented in this encounter Results * LYME AB (07/26/2021 10:55 EST) Lyme Ab Negative Negative 07/29/2021 9:57 EST [facility] Blood VENOUS BLOOD / Unknown 07/26/2021 10:55 EST 07/26/2021 21:29 EST Provider Outr Resulting Lab IMMUNOLOGY A ND SEROLOGY ORDERABLES Performing Organization Address City/State/[facility] Co de Phone Number [facility] [address] [place] [address] documented in this encounter Visit Diagnoses Not on filedocumented in this encounter Care Teams Returns Supervisor Relationship Specialty Start Date End Date Pretty Avery MD [address] [place] [address] PCP - General 06/05/10 documented as of this encounter
--- OUTSIDE RECORDS SUMMARY | 2024-03-30 13:26 | XMS_ITS | Encounter Summary ---
Author Organization [facility] Address [address] [place] [address] Care Team Providers Care Clinical Practitioner Name Role Phone Pretty Avery MD Primary Care Provider [phone] Encounter Details Date Type Department Care Team (Late st Contact Info) Description 12/05/2015 Results Only [facility] [phone] Ezequiel Estrada MD [address] [place] [phone] Social History Tobacco Use Types Packs/Day Years Used Date Smoking Tobacco: Former Comments:quit 10 yars ago Alcohol Use Standard Drinks/Week Comments Yes 5.8 (1 standard drink = 0.6 oz p ure alcohol) less now 2-3/week Sex and Gender Information Value Date Recorded [...] Procedure Name Priority Date/Time Associated Diagnosis Comments SURGICAL PATHOLOGY Routine 12/05/2015 10 :33 EDT documented in this encounter Results * SURGICAL PATHOLOGY (12/05/2015 10:33 EDT) Pathology Report: SURGICAL PATHOLOGY REPORT Reports generated via electronic interface contain original data; however they are lacking the format of the original report. Caution should be taken when reading/interpret ing unformatted reports. Name: ? EZEQUIEL THOMAS ? Accession #: ? [id number] ? : ? 1965 (Age: 50) ??F ? Collect Date: ? 12/05/2015 ? Location: ? [facility] ? Receive Date: ? 12/06/2015 ? Provider: EZEQUIEL ESTRADA MD Copy to: ? Final Pathologic Diagnosis: SKIN OF BACK, LEFT LOW, SHAVE BIOPSY: - Basal cell carcinoma, superficial multicentric type. - Basal cell carcinoma present at peripheral tissue edge. Microscopic Description: Emanating from the epidermis and extending into the papillary dermis are buds of atypical basal cells. ??The basal cells have scant cytoplasm and round dark nuclei. ??Mitotic figures and apoptotic bodies are evident. ??The nuclei at the periphery of the buds have a palisaded arrangement. The superficial dermis is loose and, in some areas, there is retraction of the atypical cells from the stroma. ??(Dr. Mcgovern)/[facility] Document reviewed and electronically signed by: WILLIAM MCGOVERN MD Report ??Date: 12/07/2015 16:33 By the signature above, the attending physician certifies that he/she has personally conducted a gross and/or microscopic examination of the described specimens and rendered or confirmed the above diagnosis. Specimen(s) Received: Shave bx L low back 2.0 cm Clinical History: Enlarging mole, scaly mole Gross Description: ? Received in formalin labelled with proper patient identification (initials W, L) and left lower back is a shave biopsy of pink-peñaloza finely granular skin (0.8 x 0.7 x 0.1 cm). ??The specimen is trisected and entirely submitted in 1. Ivan May 12/06/2015 1:10 PM End of Report [facility] 12/05/2015 10:3 3 EDT 12/06/2015 10:33 EDT Ezequiel Estrada MD PATHOLOGY ORDERABLES [facility] [address] [place] [address] documented in this encounter Visit Diagnoses Not on filedocumented in this encounter Care Teams Clinical Practitioner Relationship Specialty Start Date End Date Pretty Avery MD [address] [place] [address] PCP - General 06/05/10 documented as of this encounter
--- OUTSIDE RECORDS SUMMARY | 2024-03-30 13:26 | XMS_ITS | Encounter Summary ---
Author Organization [facility] Address [address] [place] [address] Care Team Providers Care Curb And Gutter Laborer Name Role Phone Pretty Avery MD Primary Care Provider [phone] Encounter Details Date Type Department Care Team (Latest Contact Info) Description 12/05/2015 12:19 EDT - 12/05/2015 23:59 EDT Hospital Encounter [address] [address] Unknown, Provider, Discharge Disposition: Home or Self Care Social History Tobacco Use Types Packs/Day Years [...] No 03/30/2014 documented as of this encounter Medications at Time of Discharge Medication Sig Dispensed Refills Start Date End Date aspirin chewable 81 mg tablet Take 1 Tab by mouth daily. 30 Tab 11 04/01/2014 atorvastatin (LIPITOR) 10 mg tablet Take 5 mg by mouth daily Coenzyme Q10 (CO Q-10) 10 mg capsule Take by mouth daily nitroGLYCERIN (NITROSTAT) 0.[address] 0.4 mg under the tongue every 5 minutes as needed for Chest Pain OMEGA-3 FATTY ACIDS (FISH OIL CONCENTRATE ORAL) Take 1,200 mg by mouth daily ticagrelor (BRILINTA) 90 mg tablet Take 1 Tab by mouth 2 times daily. 60 Tab 11 04/01/2014 documented as of this encounter Discharge Disposition Disposition Code Departure Means Destination Home or Self Half-Way documented in this encounter Plan of Treatment Not on file documented as of this encounter Visit Diagnoses Not on filedocumented in this encounter Care Teams Curb And Gutter Laborer Relationship Specialty Start Date End Date Pretty Avery MD [address] [place] [address] PCP - General 06/05/10 documented as of this encounter
--- OUTSIDE RECORDS SUMMARY | 2024-03-30 13:26 | XMS_ITS | Encounter Summary ---
Author Organization [facility] Address [address] [place] [address] Care Team Providers Care Assistant Child Care Teacher Name Role Phone Pretty Avery MD Primary Care Provider [phone] Encounter Details Date Type Department Care Team (Latest Contact Info) Description 04/08/2018 9:44 EDT - 04/08/2018 23:[address] [facility] [address] [place] [address] Unknown, Provider, Discharge Disposition: Home or Self [...] Code Departure Means Destination Home or Self [facility] documented in this encounter Plan of Treatment Not on file documented as of this encounter Visit Diagnoses Not on filedocumented in this encounter Care Teams Assistant Child Care Teacher Relationship Specialty Start Date End Date Pretty Avery MD [address] [place] [address] PCP - General 06/05/10 documented as of this encounter
--- OUTSIDE RECORDS SUMMARY | 2024-03-30 13:26 | XMS_ITS | Clinical Summary ---
Author Organization [facility] Address [address] [place] [address] Care Team Providers Care Senior Information Security Architect Name Role Phone Pretty Avery MD Primary Care Provider [phone] Allergies No known active allergies Medications Medication Sig Dispensed Refills Start Date End Date Status aspirin chewable 81 mg tablet Take 1 Tab by mouth daily. 30 Tab 11 04/01/2014 Active ticagrelor (BRILINTA) 90 mg tablet Take 1 Tab by mouth 2 times daily. 60 Tab 11 04/01/2014 Active atorvastatin (LIPITOR) 10 mg tablet Take 5 mg by mouth daily Active OMEGA-3 FATTY ACIDS (FISH OIL CONCENTRATE ORAL) Take 1,200 mg by mouth daily Active Coenzyme Q10 (CO Q-10) 10 mg capsule Take by mouth daily Active nitroGLYCERIN (NITROSTAT) 0.[address] 0.4 mg under the tongue every 5 minutes as needed for Chest Pain Active Active Problems Problem Noted Date Diagnosed Date NSTEMI (non-ST elevated myocardial infarction) ( [facility]) 03/30/2014 Surgical History Surgery Date Site/Laterality Comments SECTION Medical History Medical History Date Comments HTN (hypertension) HLD (hyperlipidemia) Chest pain CAD (coronary artery disease) Family history of heart disease Hx of non-ST elevation myocardial infarction ([facility] ANTHONY) Family History Medical History Relation Comments Heart Disease Other Relation Status Comments Other Social History Tobacco Use Types Packs/Day Years [...] on file Sexual Orientation Not on file Obstetrics History Last Filed Vital Signs Vital Sign Reading Time Taken Comments Blood Pressure 136/64 12/15/2014 1253 EDT Pulse 58 03/31/2014 2245 EDT Temperature 36.4 ??C (97.5 ??F) 12/15/2014 1214 EDT Respiratory Rate 18 12/15/2014 1214 EDT Oxygen Saturation 99% 12/15/2014 1430 EDT Inhaled Oxygen Concentration - - Weight 54.4 kg (120 lb) 12/15/2014 0958 EDT Height 157.5 cm (5' 2) 12/15/2014 0958 EDT Body Mass Index 21.95 12/15/2014 0958 EDT Plan of Treatment Health Maintenance Due Date Last Done Comments Hepatitis C Screen 1965 COVID-19 Vaccine (2022-24 season) 2023 RSV Immunization ( o r 60+ Years) (1 - 1-dose 60+ series) 2024 Advance Directives For more information, please contact: [phone] * Full Code (Latest Code Status on File) Date Activated Date Inactivated Comments 12/15/2014 9:53 12/15/2014 18:00 Question Answer Comments Reason for decision includes: Full code consistent with overall plan of care Who participated in the discussion? Patient * Full Code Date Activated Date Inactivated Comments 03/30/2014 20:42 04/01/2014 17:36 Care Teams Senior Information Security Architect Relationship Specialty Start Date End Date Pretty Avery MD [address] [place] [address] [facility] - General 06/05/10
--- OUTSIDE RECORDS SUMMARY | 2024-03-30 13:26 | XMS_ITS | Encounter Summary ---
Author Organization [facility] Address [address] [place] [address] Care Team Providers Care Inspector Canvas Products Name Role Phone Pretty Avery MD Primary Care Provider [phone] Reason for Visit * Reason Onset Date Comments Post-op Problem 12/17/2014 Encounter Details Date Type Department Care Team (Late st Contact Info) Description 12/17/2014 Telephone [facility] - [address] [place], [place] [phone] Alex Freed, [address] [phone] Post-op Problem Social History Tobacco Use Types Packs/Day Years [...] No 03/30/2014 documented as of this encounter Miscellaneous Notes * Telephone Encounter - Alex Freed DO - 12/17/2014 2093 EDT Isa called on 12/16/14 with complaints of right hand swelling. She underwent diagnostic LHC via right radial approach on 12/15/14. Since arriving home she noticed some swelling in her right hand compared to left. There is no bleeding, pulsating mass or significant hematoma at the cath site. She reports slight tingling of the fingers in her right hand but gross sensation and motor function is intact. She also reports a bluish tinge to her wrist/hand but this is a chronic issue for her and does notfeel it is much different than baseline (compared to left). She reports feeling a normal radial pulse in the right wrist. I advised elevating her right hand and using ice on the cath site. I also instructed Isa to call back or come to the ER if she were to notice a significant change to sensation on right hand or if she were to develop significant swelling, hematoma or bleeding at that site. Date of call: 12/16/14 at 18:00. Alex Freed DO 12/17/2014 11:53 Molding Sander documented in this encounter Plan of Treatment Not on file documented as of this encounter Visit Diagnoses Not on filedocumented in this encounter Care Teams Inspector Canvas Products Relationship Specialty Start Date End Date Pretty Avery MD [address] [place] [phone] PCP - General 06/05/10 documented as of this encounter
--- OUTSIDE RECORDS SUMMARY | 2024-03-30 13:26 | XMS_ITS | Encounter Summary ---
Author Organization [facility] Address [address] [place] [address] Care Team Providers Care Manufacturing Team Member Name Role Phone Pretty Avery MD Primary Care Provider [phone] Encounter Details Date Type Department Care Team (Late st Contact Info) Description 08/23/2020 Lab Requisition [facility] Pathology & [place] [address] Outr Resulting Lab, Provider Social History Tobacco [...] Procedure Name Priority Date/Time Associated Diagnosis Comments DO NOT ORDER STANDALONE - BROAD COVID TEST Today 08/22/2020 13:10 EST COVID-19 TESTING Routine 08/22/2020 13:1 0 EST documented in this encounter Results * DO NOT ORDER STANDALONE - BROAD COVID TEST (08/22/2020 13:10 EST) COVID-19 rt-PCR Result NEGATIVE Negative 08/25/2020 8:37 EST [facility] Comment: 2019-novel Coronavirus (2019-nCoV) not detected by the qRT-PCR assay. Consider testing for other respiratory viruses or re-collecting for 2019-nCoV testing. Note: Optimum timing for peak viral levels during infections caused by 2019-nCoV have not been determined. Collection of multiple specimens from the same patient may be necessary to detect the virus. Limitations Positive results are indicative of active infection with SARS-CoV-2 but do not rule out bacterial infection or co-infection with other viruses. The agent detected may not be the definite cause of disease. In addition, detection of viral RNA may not indicate the presence of infectious virus or that SARS-CoV-2 is the causative agent for clinical symptoms. Negative results do not preclude SARS-CoV-2 infection and should not be used as the sole basis for patient management decisions. Negative results must be combined with clinical observations, patient history, and epidemiological information. False negative results may also occur if amplification inhibitors are present in the specimen or if inadequate numbers of organisms are present in the specimen. Optimum specimen types and timing for peak viral levels during infections caused by SARS-CoV-2 have not been fully determined. Collection of multiple specimens (types and time points) from the same patient may be necessary to detect the virus. The test was validated for use with upper respiratory specimens obtained via nasopharyngeal or oropharyngeal swabs in VTM, UTM, M4, M5, M6, saline, and MTM media. The performance of this test has not been established for other specimens. Specimens collected using other FDA recommended Specimen Collection Materials listed in the FDA COVID-19 [employer] communication (December 08, 2019) are processed with the caveat that they were not all validated for use with this test and the result must be interpreted in this context. Furthermore, a false negative results may occur if a specimen is improperly collected, transported or handled. If the virus mutates in the RT-PCR target region, SARS-CoV-2 may not be detected or may be detected less predictably. Inhibitors or other types of interference may produce a false negative result. An interference study evaluating the effect of common cold medications was not performed. This test is not FDA-cleared but its performance characteristics were established by our CLIA-certified, CAP-accredited, high complexity laboratory in accordance with CLIA regulations, College of [employer] (CAP) guidelines (Dec 01, 2019), and FDA guidance (Nov 12, 2019). This test is only for use under the Food and Drug Administration's Emergency Use Authorization. Swab ENTIRE NASOPHARYNX / Unknown 08/22/2020 13:10 EST 08/23/2020 15:58 EST Provider Outr Resulting Lab MICROBIOLOGY - GENERAL ORDERABLES [facility] [place], [place] * COVID-19 TESTING (08/22/2020 13:10 EST) COVID-19 rt-PCR Result NEGATIVE Negative 08/25/2020 10:01 EST [facility] Comment: 2019-novel Coronavirus (2019-nCoV) not detected by the qRT-PCR assay. Consider testing for other respiratory viruses or re-collecting for 2019-nCoV testing. Note: Optimum timing for peak viral levels during infections caused by 2019-nCoV have not been determined. Collection of multiple specimens from the same patient may be necessary to detect the virus. Limitations Positive results are indicative of active infection with SARS-CoV-2 but do not rule out bacterial infection or co-infection with other viruses. The agent detected may not be the definite cause of disease. In addition, detection of viral RNA may not indicate the presence of infectious virus or that SARS-CoV-2 is the causative agent for clinical symptoms. Negative results do not preclude SARS-CoV-2 infection and should not be used as the sole basis for patient management decisions. Negative results must be combined with clinical observations, patient history, and epidemiological information. False negative results may also occur if amplification inhibitors are present in the specimen or if inadequate numbers of organisms are present in the specimen. Optimum specimen types and timing for peak viral levels during infections caused by SARS-CoV-2 have not been fully determined. Collection of multiple specimens (types and time points) from the same patient may be necessary to detect the virus. The test was validated for use with upper respiratory specimens obtained via nasopharyngeal or oropharyngeal swabs in VTM, UTM, M4, M5, M6, saline, and MTM media. The performance of this test has not been established for other specimens. Specimens collected using other FDA recommended Specimen Collection Materials listed in the FDA COVID-19 [employer] communication (December 08, 2019) are processed with the caveat that they were not all validated for use with this test and the result must be interpreted in this context. Furthermore, a false negative results may occur if a specimen is improperly collected, transported or handled. If the virus mutates in the RT-PCR target region, SARS-CoV-2 may not be detected or may be detected less predictably. Inhibitors or other types of interference may produce a false negative result. An interference study evaluating the effect of common cold medications was not performed. This test is not FDA-cleared but its performance characteristics were established by our CLIA-certified, CAP-accredited, high complexity laboratory in accordance with CLIA regulations, College of [employer] (CAP) guidelines (Dec 01, 2019), and FDA guidance (Nov 12, 2019). This test is only for use under the Food and Drug Administration's Emergency Use Authorization. Performing Lab [facility] [place] 08/25/2020 10:01 EST [facility] Swab 08/22/2020 13:1 0 EST 08/23/2020 15:58 EST Provider Outr Resulting Lab MICROBIOLOGY - GENERAL ORDERABLES [facility] [address] [place] [address] [facility] [place], [place] documented in this encounter Visit Diagnoses Not on filedocumented in this encounter Care Teams Manufacturing Team Member Relationship Specialty Start Date End Date Pretty Avery MD [address] [place] [address] PCP - General 06/05/10 documented as of this encounter
--- OUTSIDE RECORDS SUMMARY | 2024-03-30 13:26 | XMS_ITS | Encounter Summary ---
Author Organization [facility] Address [address] [place] [address] Care Team Providers Care Numerical Control Nesting Operator Name Role Phone Pretty Avery MD Primary Care Provider [phone] Encounter Details Date Type Department Care Team (Late st Contact Info) Description 02/15/2020 Lab Requisition [facility] Pathology & Laboratory Medicine - [address] [address] Outr Resulting Lab, Provider Social History Tobacco [...] ORDER STANDALONE - BROAD COVID TEST Today 02/15/2020 13:38 EDT COVID-19 TESTING Routine 02/15/2020 13:3 8 EDT documented in this encounter Results * DO NOT ORDER STANDALONE - BROAD COVID TEST (02/15/2020 13:38 EDT) [facility] COVID-19 rt-PCR Result NEGATIVE Negative 02/17/2020 10:45 EDT [facility] Comment: 2019-novel Coronavirus (2019-nCoV) not detected [...] in accordance with CLIA regulations, College of [place] [employer] (CAP) guidelines (Dec 01, 2019), and FDA guidance (Nov 12, 2019). This test is only for use under the Food and Drug Administration's Emergency Use Authorization. Swab ENTIRE NASOPHARYNX / Unknown 02/15/2020 13:38 EDT 02/15/2020 21:00 EDT Provider Outr Resulting Lab MICROBIOLOGY - GENERAL ORDERABLES [facility] [place], [place] * COVID-19 TESTING (02/15/2020 13:38 EDT) COVID-19 rt-PCR Result NEGATIVE Negative 02/17/2020 12:54 EDT [facility] Comment: 2019-novel Coronavirus (2019-nCoV) not detected [...] in accordance with CLIA regulations, [employer] of [employer] (CAP) guidelines (Dec 01, 2019), and FDA guidance (Nov 12, 2019). This test is only for use under the Food and Drug Administration's Emergency Use Authorization. Performing Lab [facility] 02/17/2020 12:54 EDT [facility] Swab ENTIRE NASOPHARYNX / Unknown 02/15/2020 13:38 EDT 02/15/2020 21:00 EDT Provider Outr Resulting Lab MICROBIOLOGY - GENERAL ORDERABLES [facility] [address] [place] [address] [facility] [place], [place] documented in this encounter Visit Diagnoses Not on filedocumented in this encounter Care Teams Numerical Control Nesting Operator Relationship Specialty Start Date End Date Pretty Avery MD [address] [place] [address] PCP - General 06/05/10 documented as of this encounter
--- OUTSIDE RECORDS SUMMARY | 2024-03-30 13:26 | XMS_ITS | Referral Summary ---
Author Organization [facility] Address [address] [place] [address] Care Team Providers Care Inspector Salvage Name Role Phone Pretty Avery MD Primary Care Provider [phone] Allergies No known active allergies Medications Medication [...] Date NSTEMI (non-ST elevated myocardial infarction) ( [facility]) 03/30/2014 Social History Tobacco Use Types Packs/Day Years [...] on file Sexual Orientation Not on file Last Filed Vital Signs Vital Sign Reading [...] Body Mass Index 21.95 12/15/2014 0958 EDT Functional Status Functional Status Response Date of Assess ment Are you deaf or do you have serious difficulty h earing? No 03/30/2014 Are you blind or do you have serious difficulty seeing, even when wearing glasses? No 03/30/2014 Plan of Treatment Not on file Advance Directives For more information, please contact: [phone] * Full Code (Latest Code Status on File) Date Activated Date Inactivated Comments 12/15/2014 9:53 12/15/2014 18:00 Question Answer Comments Reason for decision includes: Full code consistent with overall plan of care Who participated in the discussion? Patient * Full Code Date Activated Date Inactivated Comments 03/30/2014 20:42 04/01/2014 17:36 Care Teams Inspector Salvage Relationship Specialty Start Date End Date Pretty Avery MD [address] [place] [address] PCP - General 06/05/10
--- OUTSIDE RECORDS SUMMARY | 2024-03-30 13:26 | XMS_ITS | Encounter Summary ---
Author Organization [facility] Address [address] [place] [address] Care Team Providers Care Drop Tester Name Role Phone Pretty Avery MD Primary Care Provider [phone] Encounter Details Date Type Department Care Team (Late st Contact Info) Description 04/08/2018 Historical Results Only [facility] Radiology Results [address] [place] [address] Wesley Trinh MD [address] [place] [address] Social History Tobacco Use Types Packs/Day Years [...] Procedure Name Priority Date/Time Associated Diagnosis Comments TROPONIN I Routine 04/08/2018 20:12 EDT XR CHEST 2 VIEWS 04/08/2018 13:5 8 EDT COMPLETE BLOOD COUNT WITH DIFFERENTIAL (AUTO) Routine 04/08/2018 12:24 EDT TROPONIN I Routine 04/08/2018 12:24 EDT MAGNESIUM Routine 04/08/2018 12:24 EDT COMPREHENSIVE METABOLIC PANEL (CMP) Routine 04/08/2018 12:24 EDT documented in this encounter Results * TROPONIN I (04/08/2018 20:12 EDT) Pathologist [facility] Troponin I (ng/mL) <0.012 0.000 - 0.034 ng/mL 04/08/2018 20:47 EDT [facility] Comment: Interpretation comments: ??Cutoff for a positive troponin result is set at the 99th percentile of the upper reference limit. ??Elevated troponin must always be interpreted in the context of the clinical presentation. ?Serial troponin testing 3-6 hr from baseline is favored over relying on a single troponin level. 04/08/2018 20:1 2 EDT 04/08/2018 20:12 EDT Ganesh Philip MD CHEMISTRY & BLOOD GAS ORDERABLES [facility] * XR CHEST 2 VIEWS (04/08/2018 13:58 EDT) Anatomical Region Laterality Modality Other 04/08/2018 13:5 8 EDT Narrative 04/08/2018 14:02 EDT ? EXAM: RADIOLOGY/CHEST (PA ?? LAT) ?EX. D/ (1335) ? CLINICAL INFORMATION: ? CP ? CHEST (PA ?? LAT) ? Signs and Symptoms/Comments: ??Chest pain ? Comparisons: 03/30/2014 ? FINDINGS: ? AP and lateral views of the chest were performed. Multiple leads ? project over the chest. The lungs are clear. No pneumothorax or ? pleural effusion is present. The cardiomediastinal silhouette and ? pulmonary vascularity are unremarkable. Mild S-shaped thoracic ? scoliosis is present. ? IMPRESSION: ? No acute cardiopulmonary process. ? REPORT SIGNED IN OTHER VENDOR SYSTEM 04/08/2018 ?Reported By: Ganesh Alex MD ? CC: Wesley Trinh MD ? Transcribed Date/Time: 04/08/2018 (1402) ? [employer]: ? Printed Date/Time: 03/04/2019 (1806) ? PAGE 1 ? Signed Report ? Procedure Note Ganesh Alex MD - 07/21/2019 EXAM: RADIOLOGY/CHEST (PA LAT) EX. D/ (1335) CLINICAL INFORMATION: CP CHEST (PA LAT) Signs and Symptoms/Comments: Chest pain Comparisons: 03/30/2014 FINDINGS: AP and lateral views of the chest were performed. Multiple leads project over the chest. The lungs are clear. No pneumothorax or pleural effusion is present. The cardiomediastinal silhouette and pulmonary vascularity are unremarkable. Mild S-shaped thoracic scoliosis is present. IMPRESSION: No acute cardiopulmonary process. REPORT SIGNED IN OTHER VENDOR SYSTEM 04/08/2018 Reported By: Ganesh Alex MD CC: Wesley Trinh MD Transcribed Date/Time: 04/08/2018 (1402) [employer]chant: Printed Date/Time: 03/04/2019 (1874) PAGE 1 Signed Report Wesley Trinh MD IMG DIAGNOSTIC I MAGING ORDERABLES * MAGNESIUM (04/08/2018 12:24 EDT) Magnesium 1.70 1.7 - 2.8 mg/dL 04/08/2018 12:48 EDT [facility] 04/08/2018 12:2 4 EDT 04/08/2018 12:30 EDT Wesley Trinh MD CHEMISTRY & BLOO D GAS ORDERABLES [facility] * (ABNORMAL) COMPREHENSIVE METABOLIC PANEL (CMP) (04/08/2018 12:24 EDT) Pathologist [facility] Albumin % 4.4 3.4 - 4.9 g/dL 04/08/2018 12:48 [facility] ALKALINE PHOSPHATASE - [facility] 75 38 - 126 U/L 04/08/2018 12:48 [facility] BILIRUBIN TOTAL 0.4 0.2 - 1.3 mg/dL 04/08/2018 12:48 [facility] BUN - [facility] 21 10 - 26 mg/dL 04/08/2018 12:48 [facility] CALCIUM - [facility] 9.3 8.5 - 10.5 mg/dL 04/08/2018 12:48 [facility] Chloride 104 96 - 110 mmol/L 04/08/2018 12:48 [facility] CO2 Total 23 22 - 32 mEq/L 04/08/2018 12:48 [facility] CREATININE 0.85 0.52 - 1.04 mg/dL 04/08/2018 12:48 [facility] eGFR >60 04/08/2018 12:48 [facility] Comment: Chronic renal impairment is defined as GFR <60 Multiply result by 1.210 for patients. eGFR calculated using the IDMS-traceable MDRD Study Equation. ??(effective 07/17/2014) Anion Gap 11 0 - 18 04/08/2018 12:48 EDT [facility] GLUCOSE - [facility] 103(H) 70 - 100 mg/dL 04/08/2018 12:48 EDT [facility] Potassium 3.8 3.5 - 5.0 mEq/L 04/08/2018 12:48 EDT [facility] Sodium 138 136 - 145 mEq/L 04/08/2018 12:48 EDT [facility] TOTAL PROTEIN - [facility] 7.1 6.2 - 8.2 gm/dL 04/08/2018 12:48 EDT [facility] SGOT/AST - [facility] 20 14 - 36 U/L 04/08/2018 12:48 T [facility] SGPT/ALT - [facility] 36 9 - 52 U/L 8 12:48 EDT [facility] 04/08/2018 12:2 4 EDT 04/08/2018 12:30 EDT Wesley Trinh MD CHEMISTRY & BLOO D GAS ORDERABLES Performing Organization Address [facility]/ZIP Co de Phone Number [facility] * TROPONIN I (04/08/2018 12:24 EDT) Troponin I (ng/mL) <0.012 0.000 - 0.034 ng/mL 04/08/2018 13:00 EDT [facility] Comment: Interpretation comments: ??Cutoff for a positive troponin result is set at the 99th percentile of the upper reference limit. ??Elevated troponin must always be interpreted in the context of the clinical presentation. ?Serial troponin testing 3-6 hr from baseline is favored over relying on a single troponin level. 04/08/2018 12:2 4 EDT 04/08/2018 12:30 EDT Wesley Trinh MD CHEMISTRY & BLOO D GAS ORDERABLES [facility] * COMPLETE BLOOD COUNT WITH DIFFERENTIAL (AUTO) (04/08/2018 12:24 EDT) ABSOLUTE NEUTROPHIL COUN - [facility] 5.55 1.7 - 7.0 10e3/ul 04/08/2018 12:36 [facility] BASO # - [facility] 0.02 0.0 - 0.3 10e3/uL 04/08/2018 12:36 [facility] BASO % - [facility] 0 0 - 2 % 04/08/2018 12:36 [facility] EOS # - [facility] 0.18 0.05 - 0.5 10e3/uL 04/08/2018 12:36 [facility] EOS % - [facility] 2 0 - 5 % 04/08/2018 12:36 [facility] GRAN % - [facility] 65 40 - 80 % 04/08/2018 12:36 [facility] HEMATOCRIT - [facility] 39.7 34.0 - 47.0 % 04/08/2018 12:36 [facility] HEMOGLOBIN - [facility] 13.5 11.2 - 15.7 g/dl 04/08/2018 12:36 [facility] IG# - [facility] 0.02 0 - 0.07 10e3/uL 04/08/2018 12:36 [facility] IG% - [facility] 0.2 0 - 0.9 % 04/08/2018 12:36 [facility] LYMPH # - [facility] 2.22 0.9 - 2.9 10e3/uL 04/08/2018 12:36 [facility] LYMPH% - [facility] 26 20 - 40 % 04/08/2018 12:36 [facility] MEAN CORPUSCULAR HGB - [facility] 28.2 26 - 34 pg 04/08/2018 12:36 [facility] MEAN CORPUSCULAR HGB CONC - [facility] 34.0 31 - 36 g/dL 04/08/2018 12:36 [facility] MEAN CELL VOLUME - [facility] 82.9 77 - 100 fl 04/08/2018 12:36 [facility] MONO # - [facility] 0.60 0.3 - 0.9 10e3/uL 04/08/2018 12:36 EDT [facility] MONO% - [facility] 7 0 - 12 % 04/08/2018 12:36 EDT [facility] PLATELET COUNT 252 150 - 400 10e3/ul 04/08/2018 12:36 EDT [facility] RED BLOOD COUNT - [facility] 4.79 3.8 - 5.2 10e6/ul 04/08/2018 12:36 EDT [facility] RED CELL DISTRI WIDTH - [facility] 14.1 11.8 - 15.6 % 04/08/2018 12:36 EDT [facility] WHITE BLOOD COUNT - [facility] 8.6 3.5 - 10.5 10e3/ul 04/08/2018 12:36 EDT [facility] 04/08/2018 12:2 4 EDT 04/08/2018 12:30 EDT Wesley Trinh MD HEMATOLOGY & PF4 ORDERABLES [facility] documented in this encounter Visit Diagnoses Not on filedocumented in this encounter Care Teams Drop Tester Relationship Specialty Start Date End Date Pretty Avery MD [address] [place] [address] PCP - General 06/05/10 documented as of this encounter
--- OUTSIDE RECORDS SUMMARY | 2024-03-30 13:26 | XMS_ITS | Encounter Summary ---
Author Organization [facility] Address [address] [place] [address] Care Team Providers Care Repair Technician Name Role Phone Pretty Avery MD Primary Care Provider [phone] Encounter Details Date Type Department Care Team (Late st Contact Info) Description 04/09/2018 Historical Results Only [facility] Lab - Main [address] [address] Ganesh Philip MD [address] [place] [phone] Social History Tobacco Use Types Packs/Day [...] Date/Time Associated Diagnosis Comments TROPONIN I Routine 04/09/2018 6:35 EDT LIPASE Routine 04/09/2018 6:35 EDT documented in this encounter Results * TROPONIN I (04/09/2018 6:35 EDT) Troponin I (ng/mL) <0.012 0.000 - 0.034 ng/mL 04/09/2018 7:39 EDT [facility] Comment: Interpretation comments: ??Cutoff for a positive troponin result is set at the 99th percentile of the upper reference limit. ??Elevated troponin must always be interpreted in the context of the clinical presentation. ?Serial troponin testing 3-6 hr from baseline is favored over relying on a single troponin level. 04/09/2018 6:35 EDT 04/09/2018 6:48 EDT Ganesh Philip MD CHEMISTRY & BLOOD GAS ORDERABLES Performing Organization Address City/[facility]/ZIP Co de Phone Number [facility] * LIPASE (04/09/2018 6:35 EDT) Lipase 84 <251 U/L 04/09/2018 9:4 8 EDT [facility] 04/09/2018 6:35 EDT 04/09/2018 9:38 EDT Narrative [facility] - 04/09/2018 9:48 EDT AOT: 04/09/18 0938: LIP Ganesh Philip MD CHEMISTRY & BLOOD GAS ORDERABLES [facility] documented in this encounter Visit Diagnoses Not on filedocumented in this encounter Care Teams Repair Technician Relationship Specialty Start Date End Date Pretty Avery MD [address] [place] [address] PCP - General 06/05/10 documented as of this encounter
--- OUTSIDE RECORDS SUMMARY | 2024-03-30 13:26 | XMS_ITS | Encounter Summary ---
Author Organization [facility] Address [address] [place] [address] Care Team Providers Care Control Specialist Name Role Phone Pretty Avery MD Primary Care Provider [phone] Encounter Details Date Type Department Care Team (Late st Contact Info) Description 06/18/2018 Results Only [facility] [phone] Marietta Mauricio, DO [address] [place] [address] Social History Tobacco Use Types Packs/Day Years [...] Date/Time Associated Diagnosis Comments SURGICAL PATHOLOGY Routine 06/18/2018 16 :19 EDT documented in this encounter Results * SURGICAL PATHOLOGY (06/18/2018 16:19 EDT) Pathology Report: SURGICAL PATHOLOGY REPORT Reports generated via electronic interface contain original data; however they are lacking the format of the original report. Caution should be taken when reading/interpret ing unformatted reports. Name: ? EZEQUIEL THOMAS ? Accession #: ? [id number] ? : ? 1965 (Age: 53) ??F ? Collect Date: ? 06/18/2018 ? Location: ? [facility] ? Receive Date: ? 06/18/2018 ? Provider: MARIETTA MAURICIO DO Copy to: PRETTY AVERY MD ? Final Pathologic Diagnosis: A. SMALL INTESTINE, DUODENUM, BIOPSY: - ??Mild peptic duodenitis. B. STOMACH, ANTRUM, BIOPSY: - ??Antral mucosa with reactive gastropathy. - ??No evidence of Helicobacter pylori on H&E. C. SMALL INTESTINE, TERMINAL ILEUM, BIOPSY: - ??Enteric mucosa with no significant abnormality. D. COLON, RANDOM, BIOPSY: - ??Edematous colonic mucosa with no significant abnormality. E. RECTUM, RANDOM, BIOPSY: - ??Edematous colorectal mucosa with no significant abnormality. Document reviewed and electronically signed by: ANGELA GIBSON MD Report ??Date: 06/22/2018 10:11 By the signature above, the attending physician certifies that he/she has personally conducted a gross and/or microscopic examination of the described specimens and rendered or confirmed the above diagnosis. Specimen(s) Received: A. ??Duodenum biopsy B. ??Gastric antrum biopsy C. ??Terminal ileum biopsy D. ??Random colon biopsy E. ??Random rectum biopsy Clinical History: Change in bowel habits Gross Description: A. ?Received in formalin labelled with proper patient identification (initials W, L) and duodenal biopsy are three ??peñaloza-pink tissues (0.4 x 0.2 x 0.1 and 0.4 x 0.3 x 0.2 and 0.3 x 0.2 x 0.1 cm). Entirely submitted in A1. B. ?Received in formalin labelled with proper patient identification (initials W, L) and gastric antrum biopsy are multiple pink-peñaloza tissues (0.5 x 0.3 x 0.1 to 0.3 x 0.2 x 0.1). Entirely submitted in B1 and B2. C. ?Received in formalin labelled with proper patient identification (initials W, L) and terminal ileum biopsy are multiple pink-peñaloza tissues (0.5 x 0.3 x 0.1 to 0.3 x 0.2 x 0.1). Entirely submitted in C1. D. ?Received in formalin labelled with proper patient identification (initials W, L) and random colon biopsy are multiple pink-peñaloza tissues (0.5 x 0.4 x 0.2 to 0.2 x 0.1 x 0.1). Entirely submitted in D1-D5. E. ? Received in formalin labelled with proper patient identification (initials W, L) and random rectum biopsy are multiple pink-peñaloza tissues (0.4 x 0.3 x 0.1 to 0.2 x 0.1 x 0.1). Entirely submitted in E1-E4. Dr. Meyers 06/19/2018 9:42 AM End of Report [facility] 06/18/2018 16:1 9 EDT 06/18/2018 16:19 EDT Marietta Mauricio DO PATHOLOGY ORDERABLES [facility] [address] [place] [address] documented in this encounter Visit Diagnoses Not on filedocumented in this encounter Care Teams Control Specialist Relationship Specialty Start Date End Date Pretty Avery MD [address] [place] [address] PCP - General 06/05/10 documented as of this encounter
--- OUTSIDE RECORDS SUMMARY | 2024-03-30 13:26 | XMS_ITS | Encounter Summary ---
Author Organization [facility] Address [address] [place] [address] Care Team Providers Care Hazmat Technician Name Role Phone Pretty Avery MD Primary Care Provider [phone] Encounter Details Date Type Department Care Team (Late st Contact Info) Description 03/07/2022 Lab Requisition [facility] Pathology & Laboratory Medicine - [address] [address] Outr Resulting Lab, Provider Social History Tobacco [...] Procedure Name Priority Date/Time Associated Diagnosis Comments ZZCOVID-19 TEST [facility] PCR Today 03/06/2022 16:00 EDT COVID-19 TESTING Routine 03/06/2022 16:0 0 EDT documented in this encounter Results * COVID-19 TEST [facility] PCR (03/06/2022 16:00 EDT) Swab 03/06/2022 16:0 0 EDT 03/07/2022 22:03 EDT Provider Outr Resulting Lab MICROBIOLOGY - GENERAL ORDERABLES Performing Organization Address City/[facility]/ZIP Co de Phone Number [facility] [address] [place] [address] * COVID-19 TESTING (03/06/2022 16:00 EDT) COVID-19 rt-PCR Result Negative Negative 03/08/2022 12:05 EDT [facility] Comment: This test has not been FDA cleared or approved. This test has been authorized by FDA under an EUA for use by authorized laboratories. This test has been authorized only for detection of nucleic acid from 2019-nCoV, not for any other viruses or pathogens. This test is only authorized for the duration of the declaration that circumstances exist justifying the authorization of emergency use of in vitro diagnostic tests for detection and/or diagnosis of 2019-nCoV under section 564(b)(1) of Act, 21 U.S.C ?? 360bbb-3(b) (1), unless the authorization is terminated or revoked sooner. Negative results do not preclude 2019-nCoV infection and should not be used as the sole basis for treatment or other patient management decisions. Negative results must be combined with clinical observations, patient history, and epidemiological information. Testing was performed using the camille SARS-CoV-2 assay ([employer] on the Camille 6800 System Performing Lab [place] [address] [facility] 03/08/2022 12:05 EDT [facility] Swab 03/06/2022 16:0 0 EDT 03/07/2022 22:03 EDT Provider Outr Resulting Lab MICROBIOLOGY - GENERAL ORDERABLES Performing Organization Address City/[facility]/ZIP Co de Phone Number [facility] [address] [place] [address] documented in this encounter Visit Diagnoses Not on filedocumented in this encounter Care Teams Hazmat Technician Relationship Specialty Start Date End Date Pretty Avery MD [address] [place] [id number] PCP - General 06/05/10 documented as of this encounter
--- OUTSIDE RECORDS SUMMARY | 2024-03-30 13:26 | XMS_ITS | Data Portability ---
Author Organization [place] - [facility] [place] [address] Assessment Encounter Date Assessment Date Assessment LastModified by Organization Details LastModified Time 10/02/2023 10/02/2023 This appointment was conducted via secure online video system. A total of 32 minutes virtual; chart prep/ review of visits was 10 minutes minutes was spent at this visit of which at least 50% was spent in direct patient contact. Consent was given to conduct this encounter using appropriate technology. Not available 10/02/2023 15:53:25 Plan of Treatment Reminders Order Date Submit Date Provider Last Modified By Organization Details Last Modified Time Details Appointments hospital follow up 2023 08:10A M ROSALBA MCKEON Not available Not available Not available Lab rapid strep group A, throat 2023 024 [facility], [address] [place] [address], [address], [place], [address], 01/15/2024 16:39:11 culture, throat 2023 024 JOSELUIS [facility] (Registration ), [address] [place] [address] [place], [address], 01/16/2024 12:10:34 Referral otolaryng ologist referral 2023 024 JOSELUIS Livingston MD, [address] [place] [address] [place], [address], 09/21/2023 15:07:56 ophthalmo logist referral 2023 024 JOSELUIS [facility] - [address] , [place], [address], 10/19/2023 18:47:28 physical therapist referral 2023 JOSELUIS Kavon Araujo PT, [address] , [place], [address], 01/25/2024 15:03:28 Procedures None recorded. Surgeries None recorded. Imaging None recorded. Medication Orders valacyclo vir 500 mg tablet 2023 024 ablacketer 1 [facility], [address] [place] [address], [address], 01/15/2024 15:30:39 Lidocaine Viscous 2 % mucosal solution 2023 024 [facility], [address] [place], [address], 09/30/2023 11:20:20 gabapenti n 300 mg capsule 2023 024 ablacketer 1 [facility], [address] [place] [address], [address], 01/15/2024 15:29:36 Artificia l Tears (carboxym ethylcell ulose) 1 % eye drops 2023 024 [facility]ROS[facility], [address] [place], [address], 10/17/2023 11:37:36 cetirizin e 0.24 % eye drops in a dropperet te 2023 024 JOSELUISROSA [facility], [address] [place], [address], 10/17/2023 11:37:36 cyclobenz aprine 10 mg tablet 2023 024 JOSELUIS [facility], [address] [place], [address], 01/15/2024 16:39:23 Patient TargetsNo targets recorded. Patient Instructions Encounter Date Encounter Id Patient Instructions Last Modified By Organization Details Last Modified Time 09/19/2023 [id number] 1. The cause of your pain is related to shingles. I do not think you need to take the antibiotic for dental infection any longer. I do not believe that to be the cause of your symptoms. 2. I have sent a prescription in for an antiviral medication you will take 3 times a day for 7 days. Please initiate this as soon as possible. 3. I am sorry I am unable to fill a stronger prescription for pain medication. I have sent over prescription of viscous lidocaine and a topical numbing solution you can apply to the areas of discomfort to see if this helps improve your pain. If this does not help soothe discomfort I am concerned about the amount of Tylenol and ibuprofen you are taking together. This is entirely too much too frequently. If you are going to need something stronger for pain you are going to need to reach out to your primary care office or follow-up in the emergency department 4. Because of the lesions inside the ear I have sent referral to ear nose and throat for further evaluation. I expect Dr. Livingston's office should be reaching out to you on Thursday. 5. If at any point you develop involvement in the eye you should immediately contact [facility] eye care while I will also send a referral. Their phone number is [phone]. If they do not answer your phone call or they are not open please go to the emergency department and they can help contact them. 6. It is likely that your blood pressure is so high currently not only because you are off of your blood pressure medications but because of the pain you are experiencing. Ibuprofen used and increased amounts can also increase blood pressure. If your blood pressure readings continue to be this high that would be of great concern to me. Please seek emergent follow-up as needed and/or discussed follow-up with primary care if it continues to be elevated as pain improves. Not available 09/19/2023 13:51:57 10/17/2023 [id number] 1. I have sent 2 medications to the pharmacy. The first is artificial tears and a lubricating eyedrop for which I will want you to place 1 drop into the eye up to 4 times a day for the next week. 2. I have also sent an cetirizine antihistamine based eyedrop which she will do once twice a day for 7 days. 3. It is my hope that this will help improve symptoms. If not improving should have follow-up either with primary care or [facility] eye care. Given that you are already established there it might be easiest and best to follow-up with them if not improved. Not available 10/17/2023 11:39:01 01/15/2024 [id number] 1. Rapid strep i s negative. Throat culture was sent for further exploration. I suspect this may come back negative. In that event I will send referral to ear nose and throat for reevaluation. 2. In the meantime I recommend warm salt water gargles. You can continue to use Tylenol or ibuprofen as needed for pain. 3. I do not expect you should have any significant sudden worsening. If so please seek follow-up as needed. 4. In regards to the neck I have sent prescription for muscle relaxer which you can take at bedtime. This medication can be sedating. Please be cautious with it. No drinking or driving while on it. You can also use Tylenol and ibuprofen at the same time if need be. 5. I have sent referral to the physical therapist office for Kavon Ruizjose at the [facility] location. If they cannot get you in any want referral elsewhere please let us know when we call you on Thursday to go over throat culture. 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 fo r Herpes zoster Referring Physician: [facility], Encounter Date: 09/19/2023 [employer] Referral for Herpes zoster Referring Physician: [facility], Encounter Date: 09/19/2023 Physical Therapist Referral for Muscle spasm of cervical muscle of neck Referring Physician: Altagracia Mccain [facility], Encounter Date: 01/15/2024 Results Created Date Observation Date Name Description Value Unit Range Abnormal Flag LastModifiedBy Organization Detail LastModifiedTime 08/21/20 23 08/21/2023 rapid strep group A, throa t Strep positi ve Not Available [facility] [address] [place], [address], 08/21/2023 11:22:04 09/08/20 23 09/10/2023 THROA T AEROB IC CULTU RE throat aerobic culture Not Available [address] [place], [address] 09/10/2023 09:32:21 09/08/20 23 09/11/2023 THROA T AEROB IC CULTU RE throat aerobic culture Not Available [facility] (Registration ) [address] [place] [address] [place], [address], 09/11/2023 09:02:20 09/08/20 23 09/08/2023 rapid strep group A, throa t Strep negati ve Not Available [address], [place], [address], 09/08/2023 13:47:02 09/08/20 23 09/08/2023 influ randa virus A + B + SARS- CoV-2 (COVI D19) Ag panel , rapid IA, upper respi rator y speci men Influenza A negati ve Not Available [address], [place], [address], 09/08/2023 13:46:53 09/08/20 23 09/08/2023 influ randa virus A + B + SARS- CoV-2 (COVI D19) Ag panel , rapid IA, upper respi rator y speci men Influenza B negati ve Not Available [address], [place], [address], 09/08/2023 13:46:53 09/08/20 23 09/08/2023 influ randa virus A + B + SARS- CoV-2 (COVI D19) Ag panel , rapid IA, upper respi rator y speci men SARS-COV-2 negati ve Not Available [address], [place], [address], 09/08/2023 13:46:53 01/15/20 24 01/16/2024 THROA T AEROB IC CULTU RE throat aerobic culture Not Available [facility] (Registration ) [address] [place] [address] , [place], [address], 01/16/2024 11:50:36 01/15/20 24 01/17/2024 THROA T AEROB IC CULTU RE throat aerobic culture Not Available [facility] (Registration ) [address] [place] [address] [place], [address], 01/17/2024 07:27:17 01/15/20 24 01/15/2024 rapid strep group A, throa t Strep negati ve Not Available [address], [place], [address], 01/15/2024 15:19:00 08/31/20 23 08/31/2023 trans -thor acic echoc ardio gram (TTE) (PROC ) No observ ation record ed. ba [facility] - Exercise Stress Test/Chaarn/Stre ss Echo Scheduling [address] [place], [address], 08/31/2023 11:13:18 09/04/20 23 08/28/2023 trans -thor acic echoc ardio gram (TTE) (PROC ) No observ ation record ed. Not Available 09/04/2023 11:09:14 09/20/19 24 09/19/2023 ED visit note ED Visit Note PATIEN T NAME: Aimee Dia UNIT #: [id number] ADMITT ING PROVID ER: Nathan Perez NP ACCOUN T #: [id number] PRIMAR Y CARE PROVID ER: ISA WHITE DATE OF ADMIT: : 1964 HPI Genera l Stated Compla int: GenMed ical Mode of arriva l: ambula tory. ZORAIDA: 3 Date/T anne Provid er Toi Armenta ntatio n: 14:37. Limita tions to Docume ntatio n: no limita tions. Inform ation obtain ed by: delmi holliday, RN/MD and RN notes review ed. Histor y of Crystal holliday Illveronica s Facial shingl es modera te and severe face day(s) (3) consta nt Medica tion improv es sympto m(s), No exacer bating factor s report ed no other sympto ms. NSAID Relate d Data Home Medica tions Medica tion Instru ctions Record ed Confir med acetam inophe n 500 mg tablet 500 mg PO PRN PRN (Tylen ol Extra Streng ) ibupro fen 200 mg tablet (Advil ) 1 tab PO PRN PRN alpraz olam 0.5 mg tablet (Xanax ) 0.5 mg PO prn flying nitrog lyceri n 0.4 mg sublin gual 0.4 mg buccal ONCE tablet (Nitro stat) ascorb ic acid 1,000 1 ea PO PRN PRN mg-mul tivita min-mi nerals powder efferv escent pack (Emerg en-C) Home Made Herbal Tinctu res 1 dose PO PRN PRN losart an 25 mg tablet 12.5 mg PO DAILY cholec alcife rol (vitam in D3) 25 25 mcg PO DAILY mcg (1,000 unit) tablet (Vitam in D3) omega- 3 fatty acids 1 cap PO DAILY bisaco dyl 5 mg tablet ,delay ed 5 mg PO .take as direct ed releas e (Dulco lax (bisac odyl)) Colono scopy prep #4 tabs polyet hylene glycol 3350 17 238 g PO .Take as direct ed For gram/d ose oral powder (Mary ax) colono scopy prep #238 grams gabape ntin 300 mg capsul e See Rx Instru ctions .Route .COMPL EX #6 caps lidoca ine 5 % topica l cream 1 applic topica l QID PRN #15 grams predni sone 20 mg tablet 40 mg (2 x 20 mg) PO DAILY #8 tabs Previo us Rx's Medica tion Instru ctions Record ed bisaco dyl 5 mg tablet ,delay ed 5 mg PO .take as direct ed releas e (Dulco lax (bisac odyl)) Colono scopy prep #4 tabs polyet hylene glycol 3350 17 238 g PO .Take as direct ed For gram/d ose oral powder (Mary ax) colono scopy prep #238 grams gabape ntin 300 mg capsul e See Rx Instru ctions .Route .COMPL EX #6 caps lidoca ine 5 % topica l cream 1 applic topica l QID PRN #15 grams predni sone 20 mg tablet 40 mg (2 x 20 mg) PO DAILY #8 tabs Allerg ies Allerg y/AdvR eac Type Severi ty Reacti on Status Date / Time hydroc hlorot hiazid e Allerg y unknow n Verifi ed 14:19 lisino pril Allerg y unknow n Verifi ed 14:19 dust Allerg y Mild Itchin g Uncode d 14:19 mold Allerg y Uncode d 14:19 Review of System s Consti tution al Consti tution al: Denies chills and Denies fever( s) Eyes Eyes: Denies change in vision , Denies irrita tion and Denies eye pain ENT Ears, Nose, Mouth, and Throat : Report s as per HPI, Denies ear discha rge, Denies otalgi a, Report s facial pain, Denies odynop hagia, Denies sore throat and Denies throat swelli ng Gastro intest inal Gastro intest inal: Denies odynop hagia Integu mentar y/[place] sts Skin/B reast: Report s as per HPI and Report s rash Allerg ic/Imm unolog ic Allerg ic/Imm unolog ic: Denies throat swelli ng PFSH All Active Proble ms (Revie thu @ 11:06 by Ofelia Perez, OPERATIONS SYSTEMS SPECIALIST) Herpes zoster (Acute ) Abdomi nal bloati ng (Acute ) RLQ abdomi nal pain (Acute ) Recurr ent epista xis (Acute ) ASCVD (arter ioscle rotic cardio vascul ar diseas e) (Acute ) Right flank pain (Acute ) Hyperl ipidem ia (Chron ic) GERD (gastr oesoph ageal reflux diseas e) (Chron ic) HTN (hyper tensio n) with goal to be determ ined (Acute ) Rash (Acute ) Neck pain (Acute ) Duoden itis (Acute ) Chroni c fatigu e and malais e (Acute ) Sciati ca, unspec ified side (Acute ) Headac he, post-t raumat ic (Acute ) Pain, joint, should er, right (Acute ) Migrai ne aura withou t headac he (Chron ic) Migrai ne headac he with aura (Chron ic) Disord er of vision (Acute ) Diffic ulty speaki ng (Acute ) Blurri ng of visual image (Acute ) Change in bowel habits (Acute ) Medica l Histor y (Revie thu @ 11:06 by Ofelia Perez, OPERATIONS SYSTEMS SPECIALIST) Family histor y of colon cancer Histor y of placem ent of stent in LAD vogt ry artery 03/2014 [facility] Consti pation Hypert ension Abdomi nal pain Asthma , exerci se induce d Tick bite Hypoth yroidi sm Dyspha ronaldo Surgic al Histor y (Revie thu @ 11:06 by Ofelia Perez, OPERATIONS SYSTEMS SPECIALIST) H/O colono scopy (06/18) Dr Mauricio , normal , repeat in 10 years Histor y of esopha gogast roduod enosco py (EGD) (06/18) Dr Mauricio , normal , repeat PRN Histor y of C-sect ion Histor y of vogt ry artery stent placem ent Family Histor y (Revthu @ 11:06 by Ofelia Perez, OPERATIONS SYSTEMS SPECIALIST) Father Gliobl astoma Hyperl ipidem ia Heart diseas e Patern al Grandm other Gliobl astoma Mother Hypert ension Heart diseas e Social Histor y (Revie thu @ 11:06 by Ofelia Perez, OPERATIONS SYSTEMS SPECIALIST) 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 Use Status : Former Tobacc o Use Quit Date: Tobacc o: How many years used: 10 Smokin g risk assess ment perfor med?: Yes Alcoho l Intake : curren t Alcoho l Intake freque ncy: 0-2 drinks per day Alcoho l type: beer and hard liquor Drug use: Occasi onally Substa nce use type: keely Scales old member s: family Number of Childr en: 1 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 Curren t gender identi ty: female Do you feel safe at home: Yes Do you feel safe in your relati onship ?: Yes PAWSS Have you Been Recent ly Intoxi cated or Drunk Within the Last 30 days?: No Have you Ever Experi enced Previo us Episod es of Alcoho l Withdr awal?: No Have you ever Experi enced Withdr awal Seizur es?: No Have you ever Experi enced Deliri um Tremen s(DT)s ?: No Have you ever underg one Alcoho l Rehabi litati on Treatm ent (i.e, inpt ot outpat ient treatm ent progra ms)?: No Have you ever Experi enced Blacko uts?: No Have you ever Combin ed Alcoho l with other Downer s within the last 90 days?: No Have you ever Combin ed Alcoho l with any other Substa nce of Abuse during the last 90 days?: No Positi ve Blood Alcoho l level on Presen tation ? [PCS.B AL]: No Eviden ce of Increa sed Autono cindy Activi ty (i.e. HR>120 , tremor , sweati ng, agitat ion, nausea )?: No Result : 0 Exam Const Genera l: nolan ative, no acute distre ss and not ill appear ing [place] ation: alert, awake and orient ed x3 HENMT Mouth: moist mucous membra veronica Resp Effort Inspec tion: normal respir atory effort , able to speak in comple te senten melissa and no respir atory distre ss Skin Rashes : rashes noted vesicl es left face arrang ement cluste red and tender Neuro Genera l: patien t alert, patien t awake, patien t orient ed x3 and moves all extrem ities Sensor y Exam: no sensor y defici ts noted Course Vital Signs Vital signs: Vital Signs Pulse 69 14:15 Respir atory Rate 16 14:15 Blood Pressu re 255/75 H 14:15 Pulse Oximet ry 100 14:15 Pulse 69 14:15 Respir atory Rate 16 14:15 Respir atory Effort Normal , Non-La bored 14:21 Blood Pressu re 255/75 H 14:15 Blood Pressu re Positi on Sittin g 14:15 Pulse Oximet ry 100 14:15 Oxygen Delive ry Method Room Air 14:15 Oxygen Flow Rate 0 14:15 Medica l Decisi on Making Delmi hloliday li glaseralea from urgent care clinic for discus pj of furthe r pain contro l of her facial zoster . Delmi holliday states earlie r this week she though t she had a dental infect ion and was placed upon antibi otic. Then she starte d notici ng this mornin g some sores and lesion s to her face and went to urgent care. She was diagno sed with zoster and placed on antivi rals and viscou s lidoca ine for discom fort. Kimberlyli holliday concer trey that this will not be enough to manage her pain. Physic al exam shows obviou s findin gs of zoster to the left side of delmi holliday's face in the facial nerve distri bution no signs of Ye Ellis syndro me or ocular involv ement on basic visual exam. Delmi holliday also denies any ocular pain discom fort or rednes s. Discus sed with delmi holliday additi onal option s includ ing gabape ntin along with steroi ds and lidoca ine cream for scalp and other nonmuc osal areas of involv ement. She was agreea ble to try these. Given that I only notice d four lesion s I do not feel that delmi holliday needs opioid s at this time. It was also noted that delmi holliday had elevat ed blood pressu re but she states that she had stoppe d her losart an given that she has been taking ibupro fen. I did inform her that she could contin ue to use these on a limite d basis and I do think that delmi holliday should follow -up with primar y care provid er for reasse ssment to ensure that she is improv ing on the antivi rals alread y prescr ibed along with the additi onal pain medica tion. After discus pj of diagno sis and plan of care delmi holliday has no furthe r needs, questi ons, or concer ns and states clear unders maryse g to return to the [facility]cy depart ment for any worsen ing sympto ms. This docume ntatio n was genera joseph using [employer] ion system , please disreg tara any odditi es of phrase or misspe llings . Qualit y:SDOH Health Relate d Social Needs: No Data to Displa y Discha rge Plan Dispos ition Delmi holliday Dispos ition: Home Condit ion: Stable Discha rge Detail s Clinic al Impres pj: Herpes zoster , HTN (hyper tensio n) with goal to be determ ined Primar y Care Provid er: Isa White ED Provid er: Nathan Perez Home Meds and New Rx's Prescr iption s: New gabape ntin 300 mg capsul e See Rx Instru ctions .ROUTE .COMPL EX Qty: 6 0RF Rx Instru ctions : 300 mg orally on day one, 300mg BID day 2, and 300mg TID day 3 predni sone 20 mg tablet 40 mg PO DAILY Qty: 8 0RF lidoca ine 5 % cream 1 applic topica l QID PRNQty : 15 1RF Rx Instru ctions : Apply to intact skin only and do not use on mucosa l membra veronica Contin ued bisaco dyl [Dulco lax (bisac odyl)] 5 mg tablet ,delay ed releas e (DR/EC ) 5 mg PO .take as direct ed Qty: 4 0RF Patien t Commen ts: not taking polyet hylene glycol 3350 [Mary ax] 17 gram/d ose powder 238 g PO .Take as direct ed Qty: 238 0RF alpraz olam [Xanax ] 0.5 MG tablet 0.5 mg PO prn flying nitrog lyceri n [Nitro stat] 0.4 MG tablet , sublin gual 0.4 mg Buccal ONCE acetam inophe n [Tylen ol Extra Streng th] 500 MG tablet 500 mg PO PRN PRN ibupro fen [Advil ] 200 MG tablet 1 tab PO PRN PRN Patien t Commen ts: not taking Emerge n-C 1,000 mg Powder Efferv escent In Packet 1 ea PO PRN PRN Home Made Herbal Tinctu res 1 dose PO PRN PRN losart an 25 mg tablet 12.5 mg PO DAILY Patien t Commen ts: not taking omega- 3 fatty acids Capsul e 1 cap PO DAILY Rx Instru ctions : unknow n dose cholec alcife rol (vitam in D3) [Vitam in D3] 25 mcg (1,000 unit) Tablet 25 mcg PO DAILY Rx Instru ctions : PT unknow n dose Discha rge Instru ctions Instru ctions : Shingl es (ED), Hypert ension (ED) Additi onal Instru ctions : Your blood pressu re was elevat ed at the emerge ncy depart ment visit and I do feel that this is second courtney to stoppi ng your losart an. You may resume that medica tion. On top of the prescr ibed medica tion for your shingl es please feel free to utiliz e over-t he-cou nter medica tions for pain and discom fort. It is recomm ended that you take no more than 600 of ibupro fen along with 650 of acetam inophe n every 6 hours as needed for pain and discom fort. Return to the emerge ncy depart ment if you have any new or signif icant worsen ing of sympto ms otherw ise follow -up with your primar y care provid er prefer ably in the next week for rechec k of your shingl es. Referr als: Isa White [Prima ry Care Provid er] - 1 week Discha rge Data Discha rge Date/T anne-TO BE ENTERE D AT DEPART URE: 15:00 cc: ISA WHITE ------ ------ ------ ------ ------ ------ ------ ------ ------ ------ ------ --- Dictat ed by: MARIANNE Villa OPERATIONS SYSTEMS SPECIALIST, OFELIA Dictat ed: Time: 1438 Date: 1107 Date: Date: Transc ribed Date: Transc ribed Time: 143 By: ILEANA This is privil eged, confid ential inform ation, intend ed only for the provid er named. Any use or distri bution by any person other than this provid er is strict ly prohib ited. If you receiv e this report in error, please notify us immedi maribelly at [phone] and return the origin al report to us at the addres s above. Thank you. lbisson [facility] [address] , [place], [address] 09/21/2023 15:46:33 Result Notes None recorded. Problems Name Status Onset Date Resolution Date Notes Provider Name and Address Organization Details Recorded Time Hypothyroidis m Active 201205/08/2020 - Comments only - Rosalba Mckeon PHYSICIAN REPRESENTATIVE - without medication. check next in January 02. Problem Code: E03.9; Problem Code Type: ICD-10; ROSALBA MCKEON, JACKIE [address], [place], [address] , [facility] 4 14:32:58 Essential hypertension Active 201205/08/2020 - Comments only - Rosalba Mckeon PHYSICIAN REPRESENTATIVE - no desires to take her medication on a daily basis. Encouraged daily use of medication and check her BP routinely. Check BMP January 02. Problem Code: I10; Problem Code Type: ICD-10; ROSALBA MCKEON APRN [address], [place], [address] , [facility] 4 14:32:58 Atheroscleros is of coronary artery without angina pectoris Active 201305/08/2020 - Comments only - Rosalba Mckeon PHYSICIAN REPRESENTATIVE - No desires for statin. Encouraged daily use of her losartan. Continue ASA. encouraged to FU with cardiology. Problem Code: I25.10; Problem Code Type: ICD-10; ROSALBA MCKEON APRN [address], [place], [address] , [facility] 4 14:32:58 Hyperlipidemi a Active 201305/08/2020 - Comments only - Rosalba Mckeon PHYSICIAN REPRESENTATIVE - no desires for statin. Problem Code: E78.5; Problem Code Type: ICD-10; [address], [place], [address] , [facility] 4 14:32:58 Acute non-ST segment elevation myocardial infarction Active 2013 Problem Code: I21.4; Problem Code Type: ICD-10; [address], [place], [address] , [facility] 4 14:32:58 Gastroesophag eal reflux disease without esophagitis Active 201505/08/2020 - Comments only - Rosalba Mckeon APRN - with duodenitis and dysphagia. Encouraged daily PPI, she is not interested. Continue with diet mgmt. Problem Code: K21.9; Problem Code Type: ICD-10; [address], [place], [address] , [facility] 4 14:32:58 Exercise induced bronchospasm Active 201505/08/2020 - Comments only - Rosalba Mckeon APRN - no complaints of. monitor for now. Problem Code: J45.990; Problem Code Type: ICD-10; [address], [facility] [address] , [facility] 4 14:32:58 Dysphagia Active 201509/05/2016 - Comments only - Isa White MD - Patient is having worsening dyspagia and I will refer her to GI for an EGD to make sure there is not significant pathology. Problem Code: R13.10; Problem Code Type: ICD-10; [address], [place], [address] , [facility] 4 14:32:58 Adult health examination Active 2015 Problem Code: Z00.00; Problem Code Type: ICD-10; [address], [place], [address] , [facility] 4 14:32:58 Pain of right knee joint Completed 201602/16/2017 01/16/2017 - Comments only - Bell Dumas ANGLEDOZER OPERATOR - - I do not think it is likely that she fractured her patella, tibia, fibula, considering there is no swelling, redness, and the pain decreasedfor a period of time. I believe more likelly, that this is either osteoarthriti s that was worsened by her injury, or damage to a ligament or tendon, most likely the patellar tendon. I am referring her to physical therapy. I discussed with her that x-ray would likely not change her treatment plan at this time, but that we can pursue a later if her symptoms do not resolve with physical therrapy. Problem Code: M25.561; Problem Code Type: ICD-10; Not Available [facility] 3 04:31:04 Duodenitis Active 2017 Problem Code: K29.80; Problem Code Type: ICD-10; [address], [facility] [address] , [facility] 4 14:32:58 Fatigue Active 201707/26/2021 - Comments only - Rosalba Mckeon APRN - differentials include lyme disease, thyroid in origin, anemia. Check CBCD, iron stores, ferritin, TSH with R, tick and lyme panel. Problem Code: R53.83; Problem Code Type: ICD-10; [address], [facility] [address] , [facility] 4 14:32:58 Migraine with aura Active 2018 Problem Code: G43.109; Problem Code Type: ICD-10; [address], [facility] [address] , [facility] 4 14:32:58 Chronic sinusitis Completed 201808/26/2019 Problem Code: J32.9; Problem Code Type: ICD-10; Not Available [facility] 3 04:31:05 Eustachian tube disorder Completed 201809/14/2019 Problem Code: H69.90; Problem Code Type: ICD-10; Not Available [facility] 3 04:31:05 Screening for malignant neoplasm of breast Active 2019 Problem Code: Z12.39; Problem Code Type: ICD-10; [address], [place], [address] , [facility] 4 14:32:58 Angina pectoris Active 202006/14/2021 - Comments only - Isa White MD - Isa Ro comes in today with chest pain that is consistent with angina. She has a lot of risk factors that are untreated. Recommend that if the chest pain comes back she should go to the emergency room right away. We discussed the fact that she has high cholesterol that it is not treated and she has hypertension that is not at goal are concerning factors. She needs a stress test we will go ahead and get her scheduled for a Cardiolite stress test. She needs follow-up with cardiology. She needs to consider treating her lipids and getting her blood pressure under control. It is quite concerning and her sister also has some hereditary issues including carotid artery stenosis 80% on one side this may all be related to cholesterol issues as well. We will go ahead and get her scheduled for a carotid Doppler. Bilaterally. Problem Code: I20.9; Problem Code Type: ICD-10; [address], [place], [address] , [facility] 4 14:32:58 Carotid artery stenosis Active 202007/26/2021 - Comments only - Rosalba Mckeon APRN - Hyperlipidemi a. CAD. Rev'd her US results and compared them to 2019 and 2012. Based on results, recommended to treat with Statin. After discussion, start at atorvastatin low dose and recheck lipid profile and CMP in 6 weeks and re-evaluate; target LDL is <70. Does have some shortness of breath, feels of weaker lungs; she feels r/t losartan. Discussed transitioning to a different ARB; valsartan and telmisartan; she does not want to adjust medications at this time. Will monitor her symptoms at this type. Encouraged baby asa, try to do every other day because it causes GI upset. [address], [place], [address] , [facility] 4 14:32:58 Seasonal allergic rhinitis Active 2020 Problem Code: J30.2; Problem Code Type: ICD-10; [address], [place], [address] , [facility] 4 14:32:58 Gestational diabetes mellitus Active 2020 Problem Code: O24.419; Problem Code Type: ICD-10; [address], [address] 4 14:32:58 Family history of breast cancer Active 2020 Problem Code: Z80.3; Problem Code Type: ICD-10; [address], [address] 4 14:32:58 Nicotine dependence Active 2020 Problem Code: Z87.891; Problem Code Type: ICD-10; [address], [address] 4 14:32:58 Genuine stress incontinence Active 2020 Problem Code: N39.3; Problem Code Type: ICD-10; [address], [address] 4 14:32:58 Cramp in lower limb associated with sleep Active 2020 Problem Code: G47.62; Problem Code Type: ICD-10; [address], [address] 4 14:32:58 Raynaud's disease Active 2020 Problem Code: I73.00; Problem Code Type: ICD-10; [address], [address] 4 14:32:58 Aphasia Active 2020 Problem Code: R47.01; Problem Code Type: ICD-10; [address], [address] 4 14:32:58 Atypical squamous cells of undetermined significance on cervical Papanicolaou smear Active 2021 Problem Code: R87.610; Problem Code Type: ICD-10; [address], [address] 4 14:32:58 Cough Active 2021 Problem Code: R05.8; Problem Code Type: ICD-10; [address], [address] 4 14:32:58 Family history of malignant neoplasm of digestive organ Active 2022 Problem Code: Z80.0; Problem Code Type: ICD-10; [address], [address] 4 14:32:58 Screening for malignant neoplasm of colon Active 2022 Problem Code: Z12.11; Problem Code Type: ICD-10; [address], [address] 4 14:32:58 Abdominal pain Active 2022 Problem Code: R10.9; Problem Code Type: ICD-10; [address], [address] 4 14:32:58 Altered bowel function Active 2022 Problem Code: R19.4; Problem Code Type: ICD-10; [address], [address] 4 14:32:59 Acute subendocardia l infarction Completed 201306/10/2023 Problem Code: 410.72; Problem Code Type: ICD-9; Not Available [facility] 3 04:31:08 Posttraumatic headache Completed 201809/10/2021 Problem Code: G44.309; Problem Code Type: ICD-10; Not Available [facility] 3 04:31:08 Disorder of eye region Completed 201905/08/2020 Problem Code: H57.89; Problem Code Type: ICD-10; Not Available [facility] 3 04:31:08 Disorder of skin and/or subcutaneous tissue Completed 201502/19/2016 Problem Code: L98.9; Problem Code Type: ICD-10; Not Available [facility] 3 04:31:08 Dyspnea Completed 201502/19/2016 Problem Code: R06.09; Problem Code Type: ICD-10; Not Available [facility] 3 04:31:09 Neck pain Completed 201409/10/2021 Problem Code: M54.2; Problem Code Type: ICD-10; Not Available [facility] 3 04:31:09 Hypertensive disorder Completed 201206/10/2023 Not Available [facility] 3 04:31:09 Visual disturbance Completed 201709/12/2019 Problem Code: H53.9; Problem Code Type: ICD-10; Not Available [facility] 3 04:31:09 Headache Completed 201709/12/2019 Problem Code: R51; Problem Code Type: ICD-10; Not Available [facility] 3 04:31:09 Exposure to communicable disease Completed 201905/08/2020 Problem Code: Z20.828; Problem Code Type: ICD-10; Not Available [facility] 3 04:31:10 Constipation Completed 201705/08/2020 Problem Code: K59.00; Problem Code Type: ICD-10; Not Available [facility] 3 04:31:10 Exposure to sting or bite by insect Completed 202112/08/2022 Not Available [facility] 3 04:31:10 Traumatic or non-traumatic injury Completed 201605/08/2020 Problem Code: T14.8; Problem Code Type: ICD-10; Not Available [facility] 3 04:31:10 Sciatica Completed 201809/10/2021 Problem Code: M54.30; Problem Code Type: ICD-10; Not Available [facility] 3 04:31:10 Bleeding from nose Completed 202203/30/2023 Problem Code: R04.0; Problem Code Type: ICD-10; Not Available [facility] 3 04:31:11 Low back pain Completed 202009/10/2021 Problem Code: M54.5; Problem Code Type: ICD-10; Not Available [facility] 3 04:31:11 Pain in left foot Completed 202203/30/2023 Problem Code: M79.672; Problem Code Type: ICD-10; Not Available [facility] 3 04:31:11 Dizziness and giddiness Completed 202203/30/2023 Problem Code: R42; Problem Code Type: ICD-10; Not Available [facility] 3 04:31:11 Pain of right shoulder joint Completed 201909/10/2021 Problem Code: M25.511; Problem Code Type: ICD-10; Not Available [facility] 3 04:31:11 Chest pain Completed 201412/08/2022 Problem Code: R07.89; Problem Code Type: ICD-10; Not Available [facility] 3 04:31:12 Fever Completed 202112/08/2022 Problem Code: R50.9; Problem Code Type: ICD-10; Not Available [facility] 3 04:31:12 Exposure to communicable disease Completed 201909/10/2021 Problem Code: Z20.9; Problem Code Type: ICD-10; Not Available [facility] 3 04:31:12 Coronary arteriosclero sis Completed 201306/10/2023 Not Available [facility] 3 04:31:13 Abnormal weight gain Completed 202203/30/2023 Problem Code: R63.5; Problem Code Type: ICD-10; Not Available [facility] 3 04:31:13 Sore throat Active 2022 ROSALBA MCKEON APRN [address], [facility] [address] , [facility] 4 14:32:58 Streptococcal sore throat Active [address], [facility] [address] , [facility] 4 14:32:58 Infection of tooth Active [address], [address] 4 14:32:58 Oral infection Active [address], [place] [address] , [facility] 4 14:32:58 Herpes zoster Active [address], [facility] [address] [place] [address] 4 14:32:58 Post-herpetic polyneuropath y Active [address], [facility] [address] , [facility] 4 15:37:27 Itching of eye Active [address], [facility] [address] [place] [address] 4 11:33:48 Muscle spasm of cervical muscle of neck Active [address], [facility] [address] , [facility] 4 16:37:40 Problem Notes None recorded. Procedures Surgical History None recorded. Imaging Results Imaging Date Name Status LastModified by Organization Details LastModified Time 08/31/2023 trans-thoracic echocardiogram (TTE) (PROC) completed ba [facility] - Exercise Stress Test/Charan/Stress Echo Scheduling 1 [facility] [place], [address], 08/31/2023 11:13:18 08/28/2023 trans-thoracic echocardiogram (TTE) (PROC) completed Information not available 09/04/2023 11:09:14 09/19/2023 ED visit note completed han [facility] [address] [facility] [place], [address] 09/21/2023 15:46:33 Procedure Notes None recorded. Medical Equipment None Reported. Allergies Allergen ID Allergen Name Allergen Category Reaction Reaction Severity Criticality Documentation Date Start Date Code Code System Note Provider Name and Address Organization Details Recorded Time lisinopri l medicatio n cough mild Not available 07/24/20232013 64352 RxNorm cough Aller gyCod e: '3140 76'; Aller gyNam e: 'RAJIV NOPRI L'; Aller gyCon ceptT ype: 'RX Norm' ; Not Available [facility] 3 16:14:44 Medications Name Sig Start Date Stop Date Status Note LastModified by Organization Details LastModified Time cyclobenza riya 10 mg tablet Take 1 tablet every day by oral route at bedtime for 5 days, for muscle spasm. 2023 active Not Available Not Available Not Avai lable amoxicilli n 500 mg capsule TAKE ONE CAPSULE BY MOUTH EVERY 12 HOURS FOR 10 DAYS 09/19 completed Not Available Not Available Not Available atorvastat in 40 mg tablet 1 tab daily 09/06 completed Not Available Not Available Not Available Xanax 0.5 mg tablet 1 tablet by mouth 09/10 completed Not Available Not Available Not Available azelastine 0.05 % eye drops INSTIL 1 DROP INTO THE AFFECTED EYE(S) TWO TIMES A DAY active Not Available Not Available No t Available prednisone 10 mg tablet 6 po qd x 3d, 4 po qd x 3d, 2 po qd x 3d, 1 po qd x 3d, THEN STOP 08/28 completed Not Available Not Available Not Available ketoconazo le 2 % shampoo APPLY TO AFFECTED AREA(S) ON SCALP; LET SET FOR 3-5 MIN THEN RINSE OFF. ALTERNAT E WITH HOME OTC ANTI-KAVON DRUFF SHAMPOO EVERY FEW WASHES active Not Available Not Available No t Available atorvastat in 10 mg tablet Take 1 tablet by mouth once a day 09/10 completed not taking Not Available Not Available Not Available azithromyc in 250 mg tablet 1 tab Daily 01/25 completed Not Available Not Available Not Available lidocaine 5 % topical cream APPLY TO INTACT SKIN ONLY FOUR TIMES A DAY NEEDED; DO NOT USE ON MUCOSAL MEMBRANE S 01/14 completed Not Available Not Available Not Available prednisone 20 mg tablet TAKE 2 TABLETS BY MOUTH DAILY 09/30 completed Not Available Not Available Not Available sertraline 100 mg tablet 1/2 -1TAB QD 10/01 completed Not Available Not Available Not Available penicillin V potassium 500 mg tablet Take 1 tablet every 8 hours by oral route. 09/19 completed Not Available Not Available Not Available valacyclov ir 500 mg tablet Take 2 tablets 3 times a day by oral route as directed . 01/14 completed Not Available Not Available Not Available omeprazole 40 mg capsule,de layed release Take 1 tab by mouth daily. 02/25 completed Not Available Not Available Not Available aspirin 81 mg tablet,del ayed release 1 tablet by mouth once a day not taking 07/26 completed Not Available Not Available Not Available doxycyclin e monohydrat e 100 mg tablet Take 1 tablet by mouth twice a day 12/08 completed Not Available Not Available Not Available amoxicilli n 500 mg tablet Take 1 tablet 3 times a day by oral route. 09/30 completed Not Available Not Available Not Available Tessalon Perles 100 mg capsule 1 CAP three times daily 01/30 completed Not Available Not Available Not Available Nitrostat 0.[address] 1 tablet under tongue 2017 active Not Available Not Available Not Avai lable losartan 25 mg tablet TAKE ONE-HALF TABLET BY MOUTH EVERY DAY active Not Available Not Available No t Available gabapentin 300 mg capsule Take 1 capsule 3 times a day by oral route. 01/14 completed Not Available Not Available Not Available lidocaine HCl 2 % mucosal solution Take 1 applicat ion twice a day by oral route as needed for 2 days. 09/30 completed Not Available Not Available Not Available omeprazole 20 mg capsule,de layed release 1 capsule by mouth once a day as needed Not taking 07/26 completed Not Available Not Available Not Available Aspirin Childrens 81 mg chewable tablet Take 1 tablet by mouth once a day 09/10 completed Not Available Not Available Not Available aspirin 81 mg tablet 1 tab daily 12/21 completed Not Available Not Available Not Available lisinopril 5 mg tablet 1 tab qd 01/20 completed Not Available Not Available Not Available hydrochlor othiazide 25 mg tablet 1TAB daily 09/06 completed Not Available Not Available Not Available Ativan 0.5 mg tablet 1 tab three times daily 05/29 completed Not Available Not Available Not Available fluticason e propionate 50 mcg/actuat ion nasal spray,susp ension SPRAY ONE SPRAY IN EACH NOSTRIL TWICE A DAY 01/14 completed Not Available Not Available Not Available doxycyclin e hyclate 100 mg tablet TAKE ONE TABLET BY MOUTH TWICE A DAY 08/21 completed Not Available Not Available Not Available tobramycin 0.3 %-dexameth asone 0.1 % eye drops,susp ension INSTILL ONE DROP IN EACH EYE FOUR TIMES A DAY; RUB EXCESS INTO LID MARGIN. SHAKE BEFORE USING active Not Available Not Available No t Available Prilosec OTC 20 mg tablet,del ayed release 1 TAB daily 12/21 completed Not Available Not Available Not Available metoprolol tartrate 25 mg tablet 1/2 tab twice a day 09/06 completed Not Available Not Available Not Available ProAir HFA 90 mcg/actuat ion aerosol inhaler Inhale 1-2 puffs by mouth every 4-6 hours as needed 02/25 completed Not Available Not Available Not Available Brilinta 90 mg tablet 1 tab bid 10/19 completed Not Available Not Available Not Available Refresh Celluvisc 1 % eye gel in a dropperett e INSTILL ONE DROP INTO AFFECTED EYES FOUR TIMES A DAY FOR 7 DAYS active Not Available Not Available No t Available Breo Ellipta 100 mcg-25 mcg/dose powder for inhalation take 1 puff inhalati on once daily 09/05 completed Not Available Not Available Not Available Artificial Tears (carboxyme thylcellul ose) 1 % eye drops Apply 1 drop 4 times a day by ophthalm ic route for 7 days. 2023 active Not Available Not Available Not Avai lable Zerviate 0.24 % eye drops in a dropperett e active Not Available Not Available Not Available Vitals Date Recorded Body height Body mass index (BMI) Body weight Respiratory rate Oxygen saturation Oxygen saturation in Arterial blood by Pulse oximetry Heart rate Body temperature Systolic blood pressure Diastolic blood pressure Systolic blood pressure Diastolic blood pressure Provider Name and Address Organization Details Last Updated DateTime 4 159.26 cm 22.7 kg/m2 88981.2 3 g 20 /min 99 % 99 % 66 /min 98.1 [degF] 210 mm[Hg] 93 mm[Hg] 200 mm[Hg] 97 mm[Hg] Alejandra Mcbride MA [facility], [facility]. 4 12:23:02 Date Recorded Body height Body temperature Oxygen saturation Oxygen saturation in Arterial blood by Pulse oximetry Heart rate Body mass index (BMI) Body weight Systolic blood pressure Diastolic blood pressure Provider Name and Address Organization Details Last Updated DateTime 4 159.26 cm 96.9 [degF] 98 % 98 % 74 /min 23.2 kg/m2 20943.2 9 g 138 mm[Hg] 70 mm[Hg] Nancy Serra RN [facility], [facility] 4 11:22:16 Date Recorded Body height Body mass index (BMI) Body weight Respiratory rate Oxygen saturation Oxygen saturation in Arterial blood by Pulse oximetry Heart rate Body temperature Systolic blood pressure Diastolic blood pressure Systolic blood pressure Diastolic blood pressure Provider Name and Address Organization Details Last Updated DateTime 4 159.26 cm 23.1 kg/m2 72003.4 2 g 19 /min 99 % 99 % 65 /min 97.2 [degF] 193 mm[Hg] 100 mm[Hg] 188 mm[Hg] 96 mm[Hg] Alejandra Mcbride MA [facility] 4 10:52:46 Date Recorded Body height Body temperature Oxygen saturation Oxygen saturation in Arterial blood by Pulse oximetry Heart rate Respiratory rate Body mass index (BMI) Body weight Systolic blood pressure Diastolic blood pressure Provider Name and Address Organization Details Last Updated DateTime 4 159.26 cm 98.1 [degF] 98 % 98 % 77 /min 18 /min 22.4 kg/m2 98894.0 5 g 155 mm[Hg] 72 mm[Hg] Diane Blacketer [facility] 4 15:24:22 Social History Question Answer Notes LastModified by Organizat ion Details LastModified Time Tobacco Smoking Status Former Smoker JAMAR MEJIA RN null, [facility] 08/21/2023 11:02:00 When Did You Quit Smoking? 16+yearssinc elastcigaret te [email or web address] Information not available 08/21/2023 What Was The Date Of Your Most Recent Tobacco Screening? 01/15/2024 [email or web address] Information not available 01/15/2024 Has Tobacco Cessation Counseling Been Provided? No [email or web address] Information not available 08/21/2023 Do You Or Have You Ever Used Any Other Forms Of Tobacco Or Nicotine? No [email or web address] Information not available 08/21/2023 Sex: Female Functional Status None recorded. Mental Status None recorded. Family History Relationship Description Onset Age of this Age Resolved Age Notes Mother Family history of Hypertension Notes:*Problem: Mom - living - HTN, asthma, HLD, CABG Dad - from brain CA, HLD, .Angioplasty in 40's. PGF-CAD She has 2 older sisters- 1 has cancer but not sure the type (lining in her chest?) Children- 1- alive and well HTN: yes HLD: yes CAD: yes DM: no Breast CA: yes, MGM Colon CA: yes, MGF Uterine/ ovarian CA: no Medical History No medical history recorded. Gynecological HistoryNo gynecological history recorded. Obstetrics History GPAL:G 0 P 0 0 0 0 Immunizations Vaccine Type Date Status Provider Name and Address Organization Details Recorded Time Tdap 07/21/2019 completed Not Available [facility] 06:27:29 Td(adult) unspecified formulation 01/13/2005 completed Not Available [facility] 07/24/2023 06:27:29 COVID-19, mRNA, LNP-S, PF, 100 mcg/0.5mL dose or 50 mcg/0.25mL dose 07/13/2021 completed Not Available [facility] 07/24/20 06:27:29 COVID-19 vaccine, vector-nr, rS-Ad26, PF, 0.5 mL 11/30/2020 completed Not Available [facility] 07/24/2023 06:27:30 Past Encounters Encounter ID Performer Location Encounter Start Date Encounter Closed Date Diagnosis/Indication Diagnosis SNOMED-CT Code [id number] DRAKE KHANNA MD [address] [address] 08/21/2023 10:50:46 08/21/2023 11:29:57 Sore throat 926352735 Streptococ lewis sore throat 17767067 [id number] DIANE CERVANTES PA-C [address] [address] 09/08/2023 13:05:14 09/08/2023 13:58:09 Sore throat 116177404 [id number] [place] [address] [address] 09/17/2023 09:23:33 09/17/2023 10:07:58 Sore throat 707739832 Infection of tooth 49314 3976 [id number] ALTAGRACIA MCCAIN PA-C [address] [address] 09/19/2023 11:11:28 09/19/2023 14:10:32 Herpes zoster 0416344 Essential hypertension 24978059 [id number] [place] [address] [address] 09/30/2023 11:15:19 09/30/2023 12:01:24 Herpes zoster 2157693 [id number] ROSALBA MCKEON APRN [address] [address] 10/02/2023 15:14:28 10/02/2023 16:03:59 Post-herpetic polyneuropathy 00375253 [id number] ALTAGRACIA MCCAIN PA-C [address] [address] 10/17/2023 10:02:11 10/17/2023 11:45:47 Itching of eye 47577799 Essential hypertension 99913775 [id number] [address] [address] 01/15/2024 15:02:51 01/15/2024 16:57:40 Sore throat 682579791 Muscle spa sm of cervical muscle of neck [id number] Health Concerns Section Related Observation LastModified by Organization Detai ls LastModified Time None Recorded Concern Status LastModified by Organization Details LastModified Time None Recorded Advance Directives Directive None Recorded Payers Encounter Date Sequence Insurance Name Policy Number Policy Horan Covered Member ID Horan Member ID Guarantor Name 09/19/2023 1 [employer] ([employer]ICA[employer]) Isajoseph Ro [id number] Isa Vera Jayjay 09/30/2023 1 [employer] ([employer]) Isa Ro [id number] Isa Ro 10/02/2023 1 [employer] ([employer]) Isa Ro [id number] Isa Ro 10/17/2023 1 [employer] ([employer]) Isa Ro [id number] Isa Ro 01/15/2024 1 [employer] ([employer]) Isa Ro [id number] Isa Ro Notes Date Note Type Note Provider Name and Address Organization Details Recorded Time 09/19/2023 text/html HPI Notes: Isa is a 58-year-old female who presents with worsening pain on the left side of the face. She was seen at her primary care provider's office last week and at that time there was concern for possible dental infection. She was started on an antibiotic and felt like things were improving a little bit but then seem to worsen again they transitioned her from amoxicillin to penicillin and then back to amoxicillin because of lack of improved. Today she has had much increasing pain and is developing sores which made her concerned for shingles. She reports pain that begins from the ear radiates to the back of the head, forehead, cheek and chin. There is a blister lesion in the middle of the chin as well as lesion beginning inside the mouth and near the ears. She does not have any pain or discomfort in the eye. She does report pain in the ear she has no bothersome symptoms on the right side of her face. She did have chickenpox as a child. She does endorse that she is undergoing large amounts of stress currently. Of note patient's blood pressure is rather elevated at 200/97. She does endorse that she has been taking 2 Tylenol and 2 Advil every 3 hours. She has not been taking her losartan because she was told she should not take it with ibuprofen. The ibuprofen is giving her some relief from pain so she felt like that was more necessary she states that prior to onset of shingles her blood pressure at home was 130/70 it had been slowly creeping up to 140/80. ALTAGRACIA MCCAIN PA-C [address], [place], [address], [facility]. 09/19/2023 16:53:12 09/30/2023 text/html HPI Notes: Diagn osed with shingles on 09/19/2023. Lesions are resolving but she has left-sided facial pain. She does feel as though she has some left-sided hearing loss. She did see ENT and opthamology. pain is aggravated by fluids hitting the inside of her mouth. Had 2 days of right sided facial pain described as tingling. It resolved completely. She did not notice any weakness of her face, or lacrimation. She has intermittently taken gabapentin (due to not having enough supply for full recommended dose) and is regularly taking advil and acetaminophen. MELECIO LAKE [address], [place], [address], [facility]. 10/01/2023 11:07:31 10/02/2023 text/html HPI Notes: Is he re for complaints of shingles concern. -Had sore throat 08/21/23, treated with amoxicillin. -She called on 09/02 wondering about a toxic smell, having respiratory issues. Was recommended to call [facility] to discuss testing. -Called back on 09/08, felt her strep throat came back and wanted treatment. -Seen 09/08 in express care, neg for flu, covid, strep. ? allergic mold in origin. Was encouraged to start Flonase BID. -Called 09/17/23, for ear aches in both ears caused by a toothache. Appt was scheduled. -Seen on 09/17/23, Flonase was sent in and was started on PCNVK. At this apt she had mentioned right lower dental pain and right ear pain. She had a cracked lower molar and her ear pain was stabbing. She took an old script of amoxicillin X 2 doses prior to this apt, had been taking APAP. -Called on 09/18/23, felt PCN was making her tooth pain worse, felt that amoxicillin was more effective, was also having pain to the entire side of her head; APAP and IBU did not relieve. Script was changed to amoxicillin. Rev? d appropriate dose of APAP/ IBU. -Called again on 09/19/23. She states that she had shingles and felt that it had been missed. -Did go to express care on 09/19/23, treated for shingles with valacyclovir, lidocaine, was referred to ENT and ophthalmology. -Called 09/21/23, states went to urgent care then ER. Started on prednisone, gabapentin. Went to ENT and was started on these? . -Called back on 09/22/23, said that her face was swollen, not sure if it was a med reaction or shingles. Spoke with triage, she declined an apt to be seen. - 09/24/23, went to ENT in [facility]; was told it was shingles, they saw sores in her ear, prescribed more gabapentin and more prednisone; was for another 3 days per her recall. -Called again on 09/25/23, shingles on left side of face but now getting shooting pain on the right side of her face, skin was sensitive. She had still been on the antivirals. Was recommended to be seen here or to call the ENT provider that was treating her shingles since it is atypical to have shingles occur while on antivirals for shingles on the other side of the face. 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 Shingles had dried up but was having pain. Recommended to take gabapentin, APAP, advil. Recommended OV to be seen. -Seen 09/30/23, treated with gabapentin for this. Question if had TN or if this was post herpes pain. -Called 10/02/23, shingles moved to inside her throat, wants a visit. Offered apt for today. __ 10.02.2023. Has a sore throat on the left side of her throat. last night was more severe. Has been really bad. She feels that it is a shingles sore inside of her throat. Diagnosed with shingles on 09/19/23. Valacyclovir TID for 7 days. Script would have ended on 09/26/23. went to Er, was placed on gabapentin, prednisone 3 day supply for both. This was on 09/19/23 at [facility]. + ear pain, left ear. No drainage or discharge from ear. does not have any sores in her ear. Denies blurred vision, double vision. had 1 sore near the bottom of the left eye, went to the eye doctor, was told not in the pupil; [facility], 09/21/23. Was not provided any medications. has sore to her chin, that is drying up. has 1 sore to the left cheek, 1 finger breadth from her ear and one on the left side of nasolabial fold and along her forehead on left side and sores to the left side of her lips. Has a sore to the roof of her mouth that is still active.' Denies sinus congestion. Denies rhinitis. Did have to blow her nose this AM and it was all blood. Denies post nasal drip. The pain to her face is currently all left side. She had 2 days that it was on the right side and her skin was sensitive but this has since resolved. Denies fevers, chills. Teeth- states they are sore. Denies any active cavities or gum disease. Has 1 tooth that is cracked on the left side of her mouth it is not infected. Sore throat, hurts when she swallows. Denies dysphagia. + headaches, not abnormal for her to get headaches. For pain management she is currently doing: gabapentin 300 capsules, taking 1 TID. IBU 2 at a time, every 8 hours, APAP 2 tabs every 8 hours. Using topical lidocaine for the pain on her face. Using viscious lidocaine inside; helps when she goes outside in the cold air; cold air triggers the pain. Pain is also triggered by cold air. The pain is to her ear, from her forehead to in front of her ear and then across the upper and lower jaw lines. The pain shoots when she has. When she drinks water, the pain will last for 30-60 seconds some of the worst pain I have felt in my life. This pain only happens when she drinks water. This pain does feel similar to when she had shingles and was first diagnosed. The pain was severe enough that she was shuttering. She is not sure if the APAP/ IBU or gabapentin is helping it is hard to tell. ROSALBA MCKEON, PHYSICIAN REPRESENTATIVE [address], [place], [address], [facility]. 10/02/2023 15:54:43 10/17/2023 text/html HPI Notes: Isa is a 58-year-old female who presents with itchy and watery eyes for the past week. She has been using Flonase nasal spray but does not seem to get relief with this. She does have history of eye allergies typically in the fall and spring. Of note she has recently had a shingles outbreak but has seen the eye doctor and has confirmed that there has not been shingles in the eye. Her shingles have greatly improved. She does not endorse that the eyes are painful. It is in both eyes and they are itchy and watery. She also goes on to tell me that she is recently been doing chemical treatments in the home for mold and that they have sprayed and antimicrobial but have not sealed it yet she does feel like she gets more irritation when in the home than out of the home. Cannot endorse any other environmental exposures. [address], [place], [address], [facility]. 10/17/2023 12:14:34 01/15/2024 text/html HPI Notes: Isa is a 58-year-old female who presents with 2 complaints as below. #1 is concern for lesion which she has noted on the back of the right tonsil. She states it has been happening on and off since October. Has happened a total of 4 times. Will be present for about 2 to 3 days and then improves for a few days and then will return. She has had it twice in this last 10 days. The area is painful. She has not noted the lesion on the back of the tonsil till she looked at it yesterday for the first time. She has only noted discomfort and never thought to look at it. She had shingles in October and questions if this could be result of that. Shingles were on the left side of the face. She is worried this could be cancerous. She has a very strong family history of cancer with pancreatic cancer, brain cancer, leukemia, breast cancer and some sort of abdominal base cancer. There is no known throat or mouth cancer in the family. She has had what she is felt like has been subjective hot cold flashes but no documented temperatures. She has been able to eat and drink despite this discomfort. She has had normal bowel bladder. No nausea or vomiting she does not have ill symptoms. # 2 She is also having discomfort right side of her neck. She is asking for referral to physical therapy. She has history of arthritis in the neck and has needed physical therapy interventions in the past. She has not necessarily done anything to hurt her neck. She feels that muscles are tight and is a little bit more tight with movement. She does not have numbness or tingling. She had a similar episode of some neck stiff, about a month ago but it resolved. She has not tried any medications to help with symptoms as of yet pain seems to be worse when she is sitting, better with movement. [address], [place], [address], [facility]. 01/15/2024 19:07:29 OBGyn Episode No OBEpisode recorded.
--- OUTSIDE RECORDS SUMMARY | 2024-03-30 13:26 | XMS_ITS | Encounter Summary ---
Author Organization [facility] Address [address] [place] [address] Care Team Providers Care Take Down Inspector Name Role Phone Pretty Avery MD Primary Care Provider [phone] Encounter Details Date Type Department Care Team (Late st Contact Info) Description 06/24/2023 Lab Requisition [facility] Pathology & [place] [address] Outr Resulting Lab, Provider Social History Tobacco [...] Date/Time Associated Diagnosis Comments LYME AB Routine 06/24/2023 9:02 EDT documented in this encounter Results * LYME AB (06/24/2023 9:02 EDT) Lyme Ab Negative Negative 06/25/2023 11:00 EDT [facility] Blood VENOUS BLOOD / Unknown 06/24/2023 9:02 EDT 06/24/2023 17:06 EDT Provider Outr Resulting Lab IMMUNOLOGY A ND SEROLOGY ORDERABLES [facility] [address] [place] [address] documented in this encounter Visit Diagnoses Not on filedocumented in this encounter Care Teams Take Down Inspector Relationship Specialty Start Date End Date Pretty Avery MD [address] [place] [address] PCP - General 06/05/10 documented as of this encounter
--- OUTSIDE RECORDS SUMMARY | 2024-03-30 13:26 | XMS_ITS | Encounter Summary ---
Author Organization [facility] Address [address] [place] [address] Care Team Providers Care Public Works Inspector Name Role Phone Pretty Avery MD Primary Care Provider [phone] Encounter Details Date Type Department Care Team (Latest Contact Info) Description 09/11/2021 Lab Requisition [facility] Pathology & Laboratory Medicine - [address] [address] Rosalba Archibald, ANDROID UI DEVELOPER [address] [address] Encounter for general adult medical examination without abnormal findings; Encounter for screening for malignant neoplasm of cervix; Encounter for gynecological examination (general) (routine) without abnormal findings Social History Tobacco Use Types Packs/Day Years [...] Procedure Name Priority Date/Time Associated Diagnosis Comments PAP TEST Today 09/10/2021 9:15 EST Encounter for general adult medical examination without abnormal findings Encounter for screening for malignant neoplasm of cervix Encounter for gynecological examination (general) (routine) without abnormal findings HPV DNA DETECTION WITH GENOTYPING, PCR Today 09/10/2021 9:15 EST Encounter for general adult medical examination without abnormal findings Encounter for screening for malignant neoplasm of cervix Encounter for gynecological examination (general) (routine) without abnormal findings documented in this encounter Results * HUMAN PAPILLOMAVIRUS (HPV) DETECTION-HIGH RISK TYPES (09/10/2021 9:15 EST) HPV other High Risk types, PCR Negative Negative 09/20/2021 15:45 EST [facility] Comment:No E6 or E7 mRNA is detected from HPV types 16,18,31,33,35,39,45,51,52,56,58,59,66, and 68 by mainframe applications developer mediated amplification. Papanicolaou smear specimen (specimen) CERVIX UTERI STRUCTURE / Unknown 09/10/2021 9:15 EST 09/19/2021 14:21 EST Rosalba Archibald APRN MICROBIOLOGY - GE NERAL ORDERABLES [facility] [address] [place] [address] * PAP TEST (09/10/2021 9:15 EST) Specimens A. Cervix and/or Endocervix , ThinPrep Imaging System with Manual Evaluation 09/20/2021 15:45 EST [facility] Specimen Adequacy Satisfactory for Evaluation - transformation zone component present 09/20/2021 15:45 EST [facility] General Categorization Epithelial Cell Abnormality 09/20/2021 15:45 EST [facility] Descriptive Diagnosis Squamous Cell Abnormality - Atypical squamous cells, undetermined significance (ASC-US). 09/20/2021 15:45 EST [facility] Educational Comments [facility] recommends following ASCCP's 2012 Updated Consensus Guidelines for the Management of Abnormal Cervical Cancer Screening Tests and Cancer Precursors (JLGTD, 2013; 17(5):S1-S27). Consensus guidelines are available online at www.asccp.org. 09/20/2021 15:45 [facility] Attestation By the signature below, the attending physician certifies that they have personally conducted a gross and/or microscopic examination of the described specimens and rendered or confirmed the above diagnosis. 09/20/2021 15:45 [facility] at 1545 Clinical History See below 09/20/19 15:45 [facility] HPV The result for the Human Papillomavirus (HPV) Detection-High Risk Types is Negative. No E6 or E7 mRNA is detected from HPV types 16,18,31,33,35,3 9,45,51,52,56,58 ,59,66, and 68 by mainframe applications developer mediated amplification.Te sting was performed on specimen [id number] and was resulted on 09/20/2021 1543 EST by CARMEN, LAB INSTRUMENT RESULTS IN 09/20/2021 15:45 [facility] Performing Lab [facility] 09/20/2021 15:45 [facility] Scanned Images 09/20/2021 15:45 [facility] Papanicolaou smear specimen (specimen) CERVIX UTERI STRUCTURE / Unknown 09/10/2021 9:15 EST 09/11/2021 9:41 EST Rosalba Archibald APRN PATHOLOGY ORDERAB LES [facility] [address] [place] [address] documented in this encounter Visit Diagnoses Diagnosis Encounter for general adult medical examination without abnormal findings Unspecified general medical examination Encounter for screening for malignant neoplasm of cervix Screening for malignant neoplasm of the cervix Encounter for gynecological examination (general) (routine) without abnormal findings documented in this encounter Care Teams Public Works Inspector Relationship Specialty Start Date End Date Pretty Avery MD [address] [place] [address] PCP - General 06/05/10 documented as of this encounter
--- OUTSIDE RECORDS SUMMARY | 2024-03-30 13:26 | XMS_ITS | Encounter Summary ---
Author Organization [facility] Address [address] [place] [address] Care Team Providers Care Intelligence Manager Name Role Phone Pretty Avery MD Primary Care Provider [phone] Encounter Details Date Type Department Care Team (Late st Contact Info) Description 12/15/2014 9:30 EDT - 12/15/2014 15:15 EDT Hospital Encounter [facility] [address] [place] [address] Manpreet Naqvi MD [address] [place] [phone] Dilip Mahajan MD [address] [facility] [address] [place] [phone] Discharge Disposition: Home or Self Care Social [...] on file documented as of this encounter Last Filed Vital Signs Vital Sign Reading Time Taken Comments Blood Pressure 136/64 12/15/2014 1253 EDT Pulse - - Temperature 36.4 ??C (97.5 ??F) 12/15/2014 1214 EDT Respiratory Rate 18 12/15/2014 1214 EDT Oxygen Saturation 99% 12/15/2014 1430 EDT Inhaled Oxygen Concentration - - Weight 54.4 kg (120 lb) 12/15/2014 0958 EDT Height 157.5 cm (5' 2) 12/15/2014 0958 EDT Body Mass Index 21.95 12/15/2014 0958 EDT documented in this encounter Functional Status Functional Status Response Date of Assess ment Are you deaf or do you have serious difficulty h earing? No 03/30/2014 Are you blind or do you have serious difficulty seeing, even when wearing glasses? No 03/30/2014 documented as of this encounter Discharge Instructions * Discharge Instructions* Alis Aguillon RN - 12/15/2014 12:24 EDT Diagnostic Cardiovascular Catheterization Discharge Instructions Department of Cardiology Isa Ro, your Procedure was performed by Dr. Mahajan. Phone # [phone] You have had a Cardiovascular Catheterization performed through a small incision in the artery in your RIGHT WRIST. Your artery was closed using the following method: TR BAND Care of your Incision: For your RIGHT WRIST incision, keep the area clean & dry. Leave the sterile dressing in place for 24 hours. After this you may shower but no tub baths, swimming, or hot tubs for 5 days. You may remove your dressing the next day in the shower & wash area gently. (It is best to soak the dressing off with water in the shower. ) Apply a sterile bandage such as a Band Aid to the site after your shower daily until the site heals. DO NOT apply powder or lotion or antibiotic ointment to this area. Activity: Unless your physician instructs you otherwise, continue to drink a lot of fluids for the next 24 hours to flush the dye out of your system. Avoid Driving x 24 hours. If you had an WRIST approach, Keep your arm comfortably straight for the first 24 hours and AVOID Bending or Lifting with your WRIST for 48-72 hours. No Heavy lifting (>10 pounds) for one week. Normal Observations: Soreness or tenderness at the site that may last one week. Bruising that could last 2 weeks. Formation of a small lump (dime to quarter size) which may last up to 6 weeks. Call your Physician immediately if you experience any of the following: Fever (temp >101), swelling, redness or signs of infection (including yellow discharge). Persistent and increasing pain at the site of the wound, in your extremity or your back. Numbness or tingling at a point below the wound Skin Rash If you have not been able to Urinate within 24 hours of the procedure. *If you note any signs of bleeding, such as bulging under the skin (size of a golf ball or larger)put Direct Pressure on the area and Call your Doctor immediately.If bleeding persists after 10 minutes with pressure held call 911. *Please make a follow-up appointment with your Primary Care Physician 2 weeks after your Cardiac Catheterization was performed. documented in this encounter Medications at Time of Discharge [...] Code Departure Means Destination Home or Self Care documented in this encounter Progress Notes * Gloria Nolan RN - 12/15/2014 1549 EDT 1430 Received report from heather aguillon rn, assumed care of pt. Pt sitting up in chair in stable condition. Pt states right wrist cont to be very sensitive, dressing cdi with good csmt, finger slightly cool 1445 Discharge instruction gone over with pt, Pt Verbalized understanding copy given, 1500 IV dc'd dry sterile dressing applied 1515 Pt discharged via wheel chair in stable condtion with volunteer to lobby where friend will pick him up * Alis Aguillon RN - 12/15/2014 1220 EDT 1215 Patient care assumed. 1300 Ambulated to BR and tolerated well - sitting up in chair. 1345 See flow sheet for TR band details. 1430 Patient provided with printed discharge instructions. Report to Gloria Nolan RN. * Adeola Jacob RN - 12/15/2014 1219 EDT At 12:08 pt admitted to CVU per stretcher from CCL status post coronary angiogram. Bed in lowest position. Side rails up. Call tipton within reach. Libby PO food & liquids. Patient demonstrates willingness and understanding of post- procedure instructions. Report given to Alis Aguillon RN. * Maria Del Rosario Deras RN - 12/15/2014 1023 EDT Isa Ro arrived to CVU ambulating from home at 09:45. Patient alert and oriented x3. Bed inlowest position with call tipton within reach. Unit orientation and explanation of IV and procedure completed with patient. Patient demonstrates willingness and understanding of pre-procedure education. Bilat groins shaved. * Michaelle Ellsworth RN - 12/13/2014 0817 EDT Pt called and left message stating that she cannot make her cath appt for 12/13/14. Will contact pt today to reschedule. agriculture laborer notified. 12/13/14 10:00, pt rescheduled to Thursday12/15/14. Instructions given. Meds reviewed. * Abiodun Velez MD - 12/12/2014 1508 EDT 49 y.o. female with h/o HTN and ongoing exertional angina for 2-3 years followed by NSTEMI(Trop peak of 0.18) in March of 2014 S/P JAHAIRA stent in prox LAD. At time of Hospitalization echo showed normal EF and no RWMA. Now having exertional chest pain for cardiac cath. GFR>60 No Dye allergy Already on Ticagrelor. Antianginal Meds: Metoprolol 25 x2 Cath in March of 2014 Left main: Free of angiographically significant disease. Left anterior descending: Focal 80% prox, eccentric. Left circumflex: Free of angiographically significant disease. Right coronary artery: Free of angiographically significant disease. Interventional Procedure: Using standard technique, the left anterior descending coronary artery was stented using a Resolute JAHAIRA. * Michaelle Ellsworth, RN - 12/12/2014 7040 EDT Precardiac Cath Nursing Checklist Recent Labs: Lab Results Component Value Date BUN 10 04/01/2014 CREATININE 0.69 04/01/2014 HGB 12.6 04/01/2014 CALCGFR >60 04/01/2014 Hgt: Height: 157.5 cm (62) Wgt: Weight : 54.205 kg (119 lb 8 oz) Allergies: No Known Allergies Local Pharmacy [phone] [id number] Cardiac History: Stress Test? No Reason for Cath: chest pain, hx of cad Anginal equivalent:: Cardiac Procedures: Previous PCI done at: [facility] Stent Type/Size: 03/31/14 2.5 x 12 resolute stent prox lad Cardiac surgery: no Medical/Surgical History : Patient has a past medical history of HTN (hypertension); HLD (hyperlipidemia); Chest pain; CAD (coronary artery disease); Family history of heart disease; and Hx of non-ST elevation myocardial infarction (NSTEMI). Patient has past surgical history that includes section. Chronic Risk Factors: HTN, HLD, Previous UT and Previous PCI Smoking and Alcohol intake: reports that she has quit smoking. She does not have any smokeless tobacco history on file. She reports that she drinks about 3.5 ounces of alcohol per week. History of complications from sedation: Patient Instructions: Patient Instructed by: Patient instructed by Advanced Testing Nurse NPO Instructions: Patient/family instructed to have no solid food after midnight and to stop drinking clear liquids 3 hours prior to registration time. Diabetic Pre procedure Instructions: N/A Shower Instructions: Patient/family instructed to shower the night before or the day of the procedure. Registration location: Patient/family instructed to register on the 3rd floor [facility]. Transportation Issues: Patient/family instructed that they will need a designated driver/refuse collector if they are discharged on the dayof the procedure. Medications: Medication list: Patient/family instructed to bring medication list with them on the day of the procedure. Anticoagulants/Antiplatelets: Takes brilinta bid, instructed to take aspirin 81 mg on 12/14/14-12/15/14. Anti-Anginal meds: none Michaelle Ellsworth RN documented in this encounter H&P Notes * Chun Nielsen MD - 12/15/2014 1044 EDT [employer] [facility]&P PCP: Pretty Avery MD [employer]: Date of Service: 12/15/2014 Chief Complaint: angina HPI 49 y.o. female with PMHx HTN, HLD, former smoker, ongoing exertional angina for 2-3 years followed by NSTEMI (trop peak of 0.18) in March of 2014 S/P JAHAIRA stent in prox LAD. At time of hospitalization,echo showed normal EF and no RWMA. Last Fall, she had a stress echo that was reportedly normal. Nowhaving exertional chest pain. The angina has been stable. Referred for [facility] to further evaluate. Past Medical History: Past Medical History Diagnosis Date ??? HTN (hypertension) ??? HLD (hyperlipidemia) ??? Chest pain ??? CAD (coronary artery disease) ??? Family history of heart disease ??? Hx of non-ST elevation myocardial infarction (NSTEMI) Past Surgical History: Past Surgical History Procedure Laterality Date ??? section Social History: History Social History ??? Marital Status: Single Spouse Name: N/A Number of Children: N/A ??? 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 [employer] Social History Main Topics ??? Smoking status: Former Smoker ??? Smokeless tobacco: Not on file Comment: quit 10 yars ago ??? Alcohol Use: 3.5 - 7 oz/week 7-14 drink(s) per week Comment: less now 2-3/week ??? Drug Use: Yes Special: Marijuana Comment: rare ??? Sexual Activity: Not on file Other Topics Concern ??? Not on file Social History Narrative Family History: Family History Problem Relation Age of Onset ??? Heart Disease Home Medications: ASA 81 mg daily Atorvastatin 10 mg daily Ticagrelor 90 mg BID Metoprolol Allergies: Review of Systems Pertinent positives: The remainder of the 10 point review of systems is negative. Physical Exam Blood pressure 160/74, temperature 36.8 ??C (98.2 ??F), temperature source Temporal, height 157.5 cm (62), weight 54.432 kg (120 lb), SpO2 100 %. Gen: NAD, appears comfortable HEENT: Normocephalic, PERRL, moist mucosal membranes Neck: Supple, no lymphadenopathy, no JVD CV: RRR, normal S1 and S2, no MRGs, no carotid bruits Pulm: CTAB, no wheezes, rales, or crackles Abd: Soft, ntnd, normal bowel sounds Ext: No LE edema Neuro: A&Ox3, CN II-XII intact, no focal deficits Skin: Skin normal color, texture and turgor. No lesions. Labs CBC: Recent Labs 12/15/14 1004 WBC 6.17 RBC 4.76 HGB 13.2 HCT 40.0 MCV 84 MCH 27.8 MCHC 33.1 PLT 245 BMP: Recent Labs 12/15/14 1004 NA 141 K 4.3 CL 103 CO2 28 BUN 16 CREATININE 0.78 Coags: Recent Labs 12/15/14 1004 PROTIME 10.3 INR 1.0 ECG: sinus rhythm TTE (03/31/14): Summary: Left ventricle: The cavity size was normal. Wall thickness was normal. Systolic function was normal. The estimated ejection fraction was 60-65%. Wall motion was normal; there were no diagnostic regional wall motion abnormalities. Left ventricular diastolic function parameters were normal. LHC (03/30/14): Left main: Free of angiographically significant disease. Left anterior descending: Focal 80% prox, eccentric. Left circumflex: Free of angiographically significant disease. Right coronary artery: Free of angiographically significant disease. Interventional Procedure: Using standard technique, the left anterior descending coronary artery was stented using a Resolute JAHAIRA. Assessment and Plan: Plan to proceed with left heart catheterization to evaluate coronary anatomy and hemodynamics Pt underwent Informed Consent No noted contra-indications to LHC or JAHAIRA PCI IV Contrast Allergy: No Cr (GFR): 0.78 (>60) Anti-Anginal Medications: none Anti-Platelet Medications: Ticagrelor, ASA This procedure has been fully reviewed with the patient (including risk-benefit analysis and possible complications) and written informed consent has been obtained. Chun Nielsen MD [employer] Pager [phone] documented in this encounter Procedure Notes * Dilip Mahajan Jr., MD - 12/15/2014 1143 EDT Cardiovascular Catheterization Laboratory Preliminary Report -- Catheterization Date of Service/Procedure: 12/15/2014 Attending Physician: Dilip Mahajan Jr., MD Fellow: Chun Nielsen MD Pre-Procedure Diagnosis/Indication: Isa Ro is a 49 y.o. year old female with Chest pain and Known coronary artery disease. Prior Stress Testing? Yes, with a positive result. Is at low risk for cardiac mortality within one year . Cardiac Medications: On two or more anti anginal medications at the time of catheterization? No Anesthesia: A moderate level of anesthesia/conscious sedation was used in addition to local anesthesia. Access:Right radial artery Procedure: She was brought to [facility] Cardiac Catheterization Laboratory for the procedure: Diagnostic coronary/graft angiography and Left heart cath. Closure: TR Band Post-Procedure Condition: The condition of the patient was Good. Complications: None. IV Contrast Total: 35 mL Estimated Blood Loss: Minimal. Unless otherwise noted,there were no specimens removed, cultures obtained, or drains retained. Research Study: Patient is not enrolled in a research study. Diagnostic Cardiac Study Results Left main: Free of angiographically significant disease. Left anterior descending: Patent stent. No in-stent restenosis. Leftcircumflex: Free of angiographically significant disease. Right coronary artery: Dominant. Free of angiographically significant disease. Hemodynamic Results LVEDP 12 There was no gradient across the aortic valve. Post-Procedure Diagnostic Conclusion: Medical therapy is indicated. Plan: Continue prior medications. At the completion of the procedure, the attending physician has explained the findings, therapies, any complications and treatment plan to the patient. With the patients consent, all family members and patient support persons who were present at the conclusion of the procedure have been notified ofthese results and treatment plans as well. Post Procedure Follow Up: Patient to follow up with Dr. Soto in 4 weeks Dilip Mahajan Jr., MD PagerNumber: [phone] 12/15/2014 11:43 documented in this encounter Plan of Treatment Not on file documented as of this encounter Procedures Procedure Name Priority Date/Time Associated Diagnosis Comments INVASIVE CARDIOLOGY REPORT-SCANNED 09/26/2015 11:42 EST INVASIVE CARDIOLOGY REPORT-SCANNED 12/19/2014 8:53 EDT ECG REPORT - SCANNED 12/19/2014 8:17 EDT LEFT HEART CATH 12/15/2014 11:26 EDT EKG 12-LEAD Routine 12/15/2014 10:12 EDT PROTIME STAT 12/15/2014 10:04 EDT COMPLETE BLOOD COUNT STAT 12/15/2014 10:04 EDT BUN STAT 12/15/2014 10:04 EDT CREATININE STAT 12/15/2014 10:04 EDT ELECTROLYTES STAT 12/15/2014 10:04 EDT documented in this encounter Results * INVASIVE CARDIOLOGY REPORT-SCANNED (09/26/2015 11:42 EST) 09/26/2015 11:4 2 EST Scan 2 Store Planner PROCEDURE/MINOR SHAYY GICAL ORDERABLES * INVASIVE CARDIOLOGY REPORT-SCANNED (12/19/2014 8:53 EDT) 12/19/2014 8:53 EDT Scan 2 Store Planner PROCEDURE/MINOR SHAYY GICAL ORDERABLES * ECG REPORT - SCANNED (12/19/2014 8:17 EDT) 12/19/2014 8:17 EDT Scan 2 Store Planner PROCEDURE/MINOR SHAYY GICAL ORDERABLES * LEFT HEART CATH (12/15/2014 11:26 EDT) Anatomical Region Laterality Modality Other 12/15/2014 11:2 6 EDT Narrative 12/18/2014 8:37 EDT Cardiology [address] [place] [address] Catheterization Laboratory Study Patient: Isa Ro ? Study Date: ?12/15/2014 ? Accession #: ? [id number] : ? 1965 Referring Physician: Pretty Avery Diagnostic Attending: ??Dilip Mahajan Diagnostic Fellow: Chun Nielsen ?? ATTESTATION: Dr. Dilip Mahajan was present and supervising for the entire procedure, I Dr. Chun Nielsen was the initial author of this report. I, Dr. Dilip Mahajan have reviewed and agree with the findings of this report. PROCEDURE PLAN: A diagnostic study was performed without intervention. RESEARCH STUDY: Patient is not enrolled in any research studies. IMPRESSIONS: Coronary artery disease, unchanged from the previous study. No stent restenosis. SUMMARY: 1. HPI and indications: Stable angina. 2. End diastolic pressure in the left ventricle is normal. Pressure measurements ?? across the aortic valve show no evidence of stenosis. 3. Left main: Normal. 4. LAD: Prior intervention: stent in the proximal LAD. The stented segment is ?? patent. 5. Left circumflex: Normal. 6. Right coronary: Normal. RECOMMENDATIONS: Patient management should include medical therapy. HISTORY: Stable angina. ??Functional status: ?? CCS class II (slight limitation of ordinary activity). ??Risk factors: ??Family history of coronary artery disease. Hypertension. Dyslipidemia. ??Medications: ??Beta blockers. Anti-anginal therapy. Allergies: ??No known allergies. LABS, PRIOR TESTS, PROCEDURES AND SURGERY: Serum creatinine (current admission) of 0.8 mg/dl. ??Prothrombin time (PT) of 10.3 sec. ??Hematocrit of 40 %. ??Platelet count of 245 th/ul. ??Serum potassium (K) of 4.3 mEq/l. ??Blood urea nitrogen of 16 mg/dl. ??Hemoglobin (pre- procedure) of 13.2 g/dl. ??International normalized ratio (INR) of 1. ??Catheterization with coronary intervention. STUDY DATA: Study status: ??Cardiac cath: elective. ??Location: ??Catheterization laboratory. Sex: female. Patient is 49yr old. Weight: 54.4kg. Procedures performed: ?Right radial artery access. ?Left heart catheterization. ?Right coronary angiography. ?Left coronary angiography. PROCEDURE: 1. Initial setup. The patient was brought to the laboratory in the fasting ?? state. A baseline ECG was recorded. Surface ECG leads, automatic cuff blood ?? pressure measurements, and pulse oximetric signals were monitored. 2. Skin preparation. The planned puncture sites were prepped with chlorhexidine ?? and draped in the usual sterile manner. 3. Right radial artery access. A 6 FR/10 PromucumMark43 Sheath [place] SS .021 sheath was ?? advanced into the vessel. 4. Left heart catheterization. A catheter was advanced across the aortic valve ?? to the left ventricle under fluoroscopic guidance. The catheter was pulled ?? back to the descending aorta. 5. Selective right coronary angiography. A 5 FR Kodi catheter was advanced into ?? the right coronary vessel ostium under fluoroscopic guidance. Contrast was ?? injected by hand. Images were obtained in multiple projections. 6. Selective left coronary angiography. A 5 FR Kodi catheter was advanced into ?? the left coronary vessel ostium under fluoroscopic guidance. Contrast was ?? injected by hand. Images were obtained in multiple projections. 7. Right radial artery hemostasis. Mechanical compression was applied. STUDY COMPLETION: The estimated blood loss was 10ml. All catheters inserted during the procedure were removed. The patient tolerated the procedure well and was discharged from the lab. There were no complications. ??Administered medications: ?? Midazolam, for a total dose of 4mg. ??Fentanyl, for a total dose of 100mcg. ??Contrast: Isovue 370 35ml (total dose). ??Fluoroscopy time: ??2.9min. ??Fluoroscopy dose: 3.1cGy. CORONARY ARTERIES: The coronary circulation is right dominant. Left main: ??Normal. LAD: Prior intervention: stent in the proximal LAD. The stented segment is patent. Left circumflex: ??Normal. Right coronary: ??Normal. HEMODYNAMICS: End diastolic pressure in the left ventricle is normal. Pressure measurements across the aortic valve show no evidence of stenosis. + + + Stage description ? Baseline ? + + + LV pressure s/ed ? 143/12 ? + + + Arterial pressure s/d (m) 149/76 (107) + + + * Electronically signed by Dilip Mahajan Jr., MD 2014-12-18 08:37 Procedure Note Dilip Mahajan Jr., MD - 12/18/[address] [place] [address] Catheterization Laboratory Study Patient: Isa Ro Study Date:12/15/2014 : 1965 Referring Physician: Pretty Avery Diagnostic Attending: Dilip Mahajan Diagnostic Fellow: Chun Nielsen ATTESTATION: Dr. Dilip Mahajan was present and supervising for the entire procedure, IDr. Chun Nielsen was the initial author of this report. I, Dr. Bowers have reviewed and agree with the findings of this report. PROCEDURE PLAN: A diagnostic study was performed without intervention. RESEARCH STUDY: Patient is not enrolled in any research studies. IMPRESSIONS: Coronary artery disease, unchanged from the previous study. No stentrestenosis. SUMMARY: 1. HPI and indications: Stable angina. 2. End diastolic pressure in the left ventricle is normal. Pressuremeasurements across the aortic valve show no evidence of stenosis. 3. Left main: Normal. 4. LAD: Prior intervention: stent in the proximal LAD. The stented segmentis patent. 5. Left circumflex: Normal. 6. Right coronary: Normal. RECOMMENDATIONS: Patient management should include medical therapy. HISTORY: Stable angina. Functional status: CCS class II (slight limitation ofordinary activity). Risk factors: Family history of coronary artery disease. Hypertension. Dyslipidemia. Medications: Beta blockers. Anti-anginaltherapy. Allergies: No known allergies. LABS, PRIOR TESTS, PROCEDURES AND SURGERY: Serum creatinine (current admission) of 0.8 mg/dl. Prothrombin time (PT)of 10.3 sec. Hematocrit of 40 %. Platelet count of 245 th/ul. Serumpotassium (K) of 4.3 mEq/l. Blood urea nitrogen of 16 mg/dl. Hemoglobin(pre-procedure) of 13.2 g/dl. International normalized ratio (INR) of 1. Catheterizationwith coronary intervention. STUDY DATA: Study status: Cardiac cath: elective. [facility] Sex: [facility]. Patient is 49yr old. Weight: 54.4kg. Procedures performed: Right radial artery access. Left heart catheterization. Right coronary angiography. Left coronaryangiography. PROCEDURE: 1. Initial setup. The patient was brought to the laboratory in the fasting state. A baseline ECG was recorded. Surface ECG leads, automatic cuffblood pressure measurements, and pulse oximetric signals were monitored. 2. Skin preparation. The planned puncture sites were prepped withchlorhexidine and draped in the usual sterile manner. 3. Right radial artery access. A 6 FR/10 Terumo Sheath [place] SS .021sheath was advanced into the vessel. 4. Left heart catheterization. A catheter was advanced across the aorticvalve to the left ventricle under fluoroscopic guidance. The catheter waspulled back to the descending aorta. 5. Selective right coronary angiography. A 5 FR Kodi catheter wasadvanced into the right coronary vessel ostium under fluoroscopic guidance. Contrastwas injected by hand. Images were obtained in multiple projections. 6. Selective left coronary angiography. A 5 FR Kodi catheter was advancedinto the left coronary vessel ostium under fluoroscopic guidance. Contrastwas injected by hand. Images were obtained in multiple projections. 7. Right radial artery hemostasis. Mechanical compression was applied. STUDY COMPLETION: The estimated blood loss was 10ml. All catheters inserted during theprocedure were removed. The patient tolerated the procedure well and was dischargedfrom the lab. There were no complications. Administered medications:Midazolam, for a total dose of 4mg. Fentanyl, for a total dose of 100mcg. Contrast: Isovue 370 35ml (total dose). Fluoroscopy time: 2.9min. Fluoroscopydose: 3.1cGy. CORONARY ARTERIES: The coronary circulation is right dominant. Left main: Normal. LAD: Prior intervention: stent in the proximal LAD. The stented segment is patent. Left circumflex: Normal. Right coronary: Normal. HEMODYNAMICS: End diastolic pressure in the left ventricle is normal. Pressuremeasurements across the aortic valve show no evidence of stenosis. + + + Stage description Baseline + + + LV pressure s/ed 143/12 + + + Arterial pressure s/d (m) 149/76 (107) + + + * Electronically signed by Dilip Mahajan Jr., MD 2014-12-18 08:37 Alex Soto MD CARDIAC CATH ORDERAB LES * EKG 12-LEAD (12/15/2014 10:12 EDT) 12/15/2014 10:1 2 EDT Narrative [facility] EKG - 12/15/2014 15:09 EDT ? [facility] ? Test Date: ?2014-12-15 Pat Name: ? ISA RO ?Department: ?? CVU ? Room: ? CVU37 Gender: ? 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 [id number] : ?1965 ? Requested By: [facility] Order Number: [id number] ? Reading MD: ?? JOHNNY PATEL MD ? Measurements Intervals ?Winder ? Rate: ? 64 ? P: ?70 OH: ? 155 ?QRS: ?48 QRSD: ? 82 ? T: ?72 QT: ? 434 ? QTc: ?450 ? Interpretive Statements SINUS RHYTHM NONSPECIFIC ST & T-WAVE ABNORMALITY Compared to ECG 03/31/2014 13:30:36 Sinus rhythm now present T-wave abnormality now present I reviewed the tracing and have either agreed or edited the findings in this report. Electronically Signed On 12-15-14 15:09:46 EDT by JOHNNY PATEL MD. 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 Electronically Signed On 12-15-14 15:09:46 EDT by CHARBEL MACK. Abiodun Velez MD CARDIAC ECG ORDER JAMI [facility] EKG * PROTIME (12/15/2014 10:04 EDT) [facility] Pro Time 10.3 9.5 - 12.3 secs 12/15/2014 10:37 [facility] I.N.R. 1.0 0.9 - 1.1 Ratio 12/15/2014 10:37 [facility] Comment: Moderate Intensity Coumadin INR = 2.0-3.0 Adjustments in anticoagulant therapy dose should be based upon the INR and NOT the Pro Time. Blood specimen (specimen) BLOOD SPECIMEN / Unknown 12/15/2014 10:04 EDT 12/15/2014 10:21 EDT Abiodun Velez MD HEMATOLOGY & PF4 ORDERABLES [facility] [address] [place] [address] * HEMAGRAM (12/15/2014 10:04 EDT) WBC 6.17 4.0 - 12.4 K/cmm 12/15/2014 10:28 [facility] RBC 4.76 3.86 - 5.04 M/cmm 12/15/2014 10:28 [facility] Hemoglobin 13.2 11.6 - 15.2 gm/dl 12/15/2014 10:28 [facility] HCT 40.0 34.9 - 44.4 % 12/15/2014 10:28 [facility] MCV 84 81 - 98 fl 12/15/2014 10:28 [facility] MCH 27.8 26.7 - 33.3 pg 12/15/2014 10:28 [facility] MCHC 33.1 32.1 - 35.9 gm/dl 12/15/2014 10:28 [facility] RDW-CV 13.7 11.7 - 14.6 % 12/15/2014 10:28 [facility] RDW-SD 41.6 37.6 - 50.3 fl 12/15/2014 10:28 [facility] PLT 245 141 - 320 K/cmm 12/15/2014 10:28 [facility] MPV 8.0 7.5 - 11.2 fl 12/15/2014 10:28 EDT [facility] Blood specimen (specimen) BLOOD SPECIMEN / Unknown 12/15/2014 10:04 EDT 12/15/2014 10:21 EDT Abiodun Velez MD HEMATOLOGY & PF4 ORDERABLES Performing Organization Address City/[facility]/ZIP Co de Phone Number [facility] [address] [place] [address] * ELECTROLYTES (12/15/2014 10:04 EDT) Sodium 141 136 - 145 mEq/L 12/15/2014 10:45 EDT [facility] Potassium 4.3 3.5 - 5.0 mEq/L 12/15/2014 10:45 EDT [facility] Chloride 103 96 - 110 mEq/L 12/15/2014 10:45 EDT [facility] CO2 28 24 - 32 mEq/L 12/15/2014 10:45 EDT [facility] Blood specimen (specimen) BLOOD SPECIMEN / Unknown 12/15/2014 10:04 EDT 12/15/2014 10:21 EDT Abiodun Velez MD CHEMISTRY & BLOOD GAS ORDERABLES Performing Organization Address [facility] Co de Phone Number [facility] [address] [place] [address] * CREATININE (12/15/2014 10:04 EDT) Creatinine 0.78 0.52 - 1.04 mg/dl 12/15/2014 10:45 EDT [facility] GFR, Calculated >60 >60 ml/min/1.7 3m2 12/15/2014 10:45 EDT [facility] Blood specimen (specimen) BLOOD SPECIMEN / Unknown 12/15/2014 10:04 EDT 12/15/2014 10:21 EDT Abiodun Velez MD CHEMISTRY & BLOOD GAS ORDERABLES [facility] [address] [place] [address] * BUN (12/15/2014 10:04 EDT) BUN 16 10 - 26 mg/dl 12/15/2014 10:45 EDT [facility] Blood specimen (specimen) BLOOD SPECIMEN / Unknown 12/15/2014 10:04 EDT 12/15/2014 10:21 EDT Abiodun Velez MD CHEMISTRY & BLOOD GAS ORDERABLES [facility] [address] [place] [address] documented in this encounter Visit Diagnoses Not on filedocumented in this encounter Administered Medications Inactive Administered Medications - up to 3 most recent administrations Medication Order MAR Action Action Date Dose Rate Site acetaminophen (TYLENOL) tablet 650 mg 650 mg, oral, EVERY 4 HOURS PRN, Starting on Thu12/15/14 at 1147, Until Thu12/15/14 at 1800, Pain, Routine Given 12/15/2014 14:30 EDT 650 mg sodium chloride 0.9 % (NS) infusion 30 mL/hr, intravenous, CONTINUOUS, Starting on Thu12/15/14 at 1015, Until Thu12/15/14 at 1800, Routine, Preprocedure New Bag 12/15/2014 10:21 EDT 30 mL/hr 30 mL/hr documented in this encounter Discontinued Medications Medication Sig Discontinue Reason Start Date End Da te atorvastatin (LIPITOR) 40 mg tablet Take 1 Tab by mouth daily. Error 04/01/2014 12/12/2014 metoprolol (LOPRESSOR) 25 mg tablet Take 0.5 Tabs by mouth 2 times daily. Error 04/01/2014 12/13/2014 documented as of this encounter Historical Medications * This list may reflect changes made after this encounter. Medication Sig Dispensed Refills Start Date End Date nitroGLYCERIN (NITROSTAT) 0.[address] 0.4 mg under the tongue every 5 minutes as needed for Chest Pain Coenzyme Q10 (CO Q-10) 10 mg capsule Take by mouth daily OMEGA-3 FATTY ACIDS (FISH OIL CONCENTRATE ORAL) Take 1,200 mg by mouth daily atorvastatin (LIPITOR) 10 mg tablet Take 5 mg by mouth daily added in this encounter Active and Recently Administered Medications Times are shown in EDT. Continuous Medication Order 12/13/2014 12/14/2014 12/15/2014 sodium chloride 0.9 % (NS) infusion (CANCELED) 30 mL/hr, intravenous, CONTINUOUS, Starting on Thu12/15/14 at 1015, Until Thu12/15/14 at 1800, Routine, Preprocedure 1021 (New Bag - Prov ider: Maria Del Rosario Deras RN)1300 (Completed - Provider: Alis Aguillon RN) PRN Medication Order 12/13/2014 12/14/2014 12/15/2014 acetaminophen (TYLENOL) tablet 650 mg (CANCELED) 650 mg, oral, EVERY 4 HOURS PRN, Starting on Thu12/15/14 at 1147, Until Thu12/15/14 at 1800, Pain, Routine 1430 (Given - Provid er: Alis Aguillon RN) documented in this encounter Orders Nursing Count Last Ordered Date First Orde red Date AMBULATE PATIENT 1 12/15/2014 CARDIAC MONITORING 1 12/15/2014 DISCONTINUE SALINE LOCK/IV/PICC 1 5 INSERT PERIPHERAL IV 1 12/15/2014 NOTIFY PHYSICIAN (SPECIFY) 2 12/15/2014 NURSING COMMUNICATION 1 12/15/2014 PATIENT AT LOW RISK FOR VTE: RISK OF PHARMACOLOGIC PROPHYLAXIS OUTWEIG 1 12/15/2014 Transfer Count Last Ordered Date First Orde red Date NOTIFY PPS OF DISCHARGE COMPLETE 1 12/16/19 15 Discharge Count Last Ordered Date First Orde red Date DISCHARGE PATIENT 1 12/15/2014 documented in this encounter Care Teams Intelligence Manager Relationship Specialty Start Date End Date Pretty Avery MD [address] [place] [address] PCP - General 06/05/10 documented as of this encounter
--- OUTSIDE RECORDS SUMMARY | 2024-03-30 13:26 | XMS_ITS | Encounter Summary ---
Author Organization [facility] Address [address] [place] [address] Care Team Providers Care Wood Gouger Name Role Phone Pretty Avery MD Primary Care Provider [phone] Encounter Details Date Type Department Care Team (Latest Contact Info) Description 06/18/2018 9:36 EDT - 06/18/2018 23:[address] [facility] - [address] [address] Unknown, Provider, Discharge Disposition: Home or Self [...] on filedocumented in this encounter Care Teams Wood Gouger Relationship Specialty Start Date End Date Pretty Avery MD [address] [place] [address] PCP - General 06/05/10 documented as of this encounter
--- OUTSIDE RECORDS SUMMARY | 2024-03-30 13:27 | XMS_ITS | Encounter Summary ---
Author Organization [facility] Address [address] [place] [address] Care Team Providers Care Employment Manager Name Role Phone Unavailable Primary Care Provider Unavailabl e Encounter Details Date Type Department Care Team (Late st Contact Info) Description 12/31/2007 Results Only [facility] - [address] [phone] Skip Alcocer MD [address] [place] [address], [address] [place] [address] Social History Tobacco Use Types Packs/Day Years Used Date Smoking Tobacco: Never Assessed Sex and Gender Information Value Date Recorded Sex Assigned at Not on file Gender Identity Not on file Sexual Orientation Not on file documented as of this encounter Plan of Treatment Not on file documented as of this encounter Procedures Procedure Name Priority Date/Time Associated Diagnosis Comments ANEUPLOIDY DETECTION, FISH Routine 12/31/2007 16:34 EDT CHROMOSOME ANALYSIS, CHORIONIC VILLUS Routine 12/31/2007 16:34 EDT documented in this encounter Results * AMNIOTIC FLUID/[facility] ANEUPLOIDY FISH (FOR X,Y,21,13,18)([facility] #[id number]) (12/31/2007 16:34 EDT) Specimen (Note) Chorionic Villi Sample ? [facility] Specimen ID [id number] [facility] Order Date 01 Jan 2008 09:10 [facility] Method (Note) FISH analysis of 100 nuclei with probes for Xcen (DXZ1), ? Ycen (DYZ3), 13q14 (Rb1), 18cen (D18Z1) and 21q22 ([id number]). ? [facility] Reason For Referral maternal age [facility] Results (Note) Chromosome ? Result ? XY//XX ? normal ? 13 ? normal ? 18 ? normal ? 21 ? normal ? NOMENCLATURE: ? nuc maty(DXZ1,DYZ3)x 1//(DXZ1x2) ? Of 200 nuclei, 195 had 1 DXZ1 and 1 DYZ3 signal, 200 had 2 ? D18Z1 signals, 200 had 2 signals for 13q14 and 200 had 2 ? signals for 21q22. ??In addition, 5 cells had 2 DXZ1 ? signals. ? [facility] Interpretation (Note) The result is consistent with a normal signal pattern for ? chromosomes 13, 18, 21 and XY. ??A subset of cells with an XX ? signal pattern were observed, which are most likely of ? maternal origin. ? This result should be evaluated in conjunction with ? karyotype analysis (reported separately) and clinical ? findings. ??Medical decisions should not be based solely on ? FISH results. ? The [employer] and the [employer] ? [employer] recommend confirmation of ? abnormal diagnostic results at or ? termination, to the extent possible. ? DISCLAIMER: ??This test was developed and its performance ? characteristics determined by Laboratory [facility] and ? Pathology, [facility]. ??It has not been cleared ? or approved by the U.S. Food and Drug Administration. ??This ? FISH assay does not rule out other chromosome anomalies. ? Woody et al., [place] Clin Proc 73:132-137, 1998. ? [facility] Lithopone Mill Worker (Note) Eduardo Corey MD ? [facility] Report Date 03 Jan 2008 12:44 Performed or Referred by: [facility] Dpt of Lab Med and Path, [address] ?? , [place] [address], Lab Dir: MD URVASHI Morgan III 12/31/2007 16:3 4 EDT 12/31/2007 16:34 EDT Skip Alcocer MD GEN LAB UNIT [facility] ECT ORDERABLES [facility] [address] [place] [address] * [facility] CHROMOSOME ANALYSIS ([facility] #[id number]) (12/31/2007 16:34 EDT) Specimen (Note) Chorionic Villi Sample ? [facility] Specimen ID [id number] [facility] Order Date 01 Jan 2008 09:10 [facility] Method [facility] culture [facility] Reason For Referral maternal age [facility] Results 46,XY [facility] Interpretation (Note) No chromosome abnormality was observed in 30 metaphases ? analyzed from 3 primary cultures. ? This result is consistent with the normal FISH studies, ? reported separately. ? [facility] [employer]one Mill Worker (Note) Manuel V N Velagakarlyi PhD ? [facility] Report Date 10 Jan 2008 16:27 Performed or Referred by: [facility] Dpt of Lab Med and Path, [address] , [place] [address], Lab Dir: MD URVASHI Morgan III Haploid Band Resolution 400Unit: bands [facility] Total Cells Analyzed 30 [facility] Total Cells Karyotyped 2 [facility] 12/31/2007 16:3 4 EDT 12/31/2007 16:34 EDT Skip Alcocer MD HEMATOLOGY & PF4 ORDERABLES [facility] [address] [place] [address] documented in this encounter Visit Diagnoses Not on filedocumented in this encounter
--- OUTSIDE RECORDS SUMMARY | 2024-03-30 13:27 | XMS_ITS | Encounter Summary ---
Author Organization [facility] [place] [address] Care Team Providers Care Title Clerk Name Role Phone None Primary Care Provider Unavailabl e Reason for Referral * Consultation (Routine) - Authorized Specialty Diagnoses / Procedures Referred By Contac t Referred To Contact Cardiology Diagnoses ST elevation myocardial infarction involving left anterior descending (LAD) coronary artery Kathryn Walker MD [facility] [place] [address] [facility] [address] [place] [address] Referral ID Status Reason Start Date Expiration Date Visits Requested Visits Authorized [id number] Authorized Consult, Test & Treat 03/22/2024 09/18/2024 1 1 * Consultation (Routine) - Authorized Specialty Diagnoses / Procedures Referred By Contac t Referred To Contact Cardiology Diagnoses ST elevation myocardial infarction involving left anterior descending (LAD) coronary artery Horace Hancock MD [facility] [place] [address] Cardiac Rehab, [address] [place] [address] Referral ID Status Reason Start Date Expiration Date Visits Requested Visits Authorized [id number] Authorized Consult, Test & Treat 03/22/2024 09/18/2024 36 36 Reason for Visit * Auth/Cert (Routine) Specialty Diagnoses / Procedures Referred By Contac t Referred To Contact Diagnoses Acute ST elevation myocardial infarction (STEMI) due to occlusion of left anterior descending (LAD) coronary artery stemi Procedures EMERGENCY IPI Destin Ambrosio MD [facility] [place] [address] [facility] Referral ID Status Reason Start Date Expiration Date Visits Re quested Visits Authorized [id number] 1 1 Encounter Details Date Type Department Care Team (Latest Contact Info) Description 03/19/2024 12:37 AM EDT - 03/22/2024 12:10 PM EDT Hospital Encounter Heart and Vascular Unit Level 4 Wing A at [place] [id number] Destin Ambrosio MD [facility] [place] [address] Horace Hancock MD [facility] [place] [address] Kathryn Walker MD [facility] [place] [address] ST elevation myocardial infarction involving left anterior descending (LAD) coronary artery; Chest pain, unspecified type Discharge Disposition: Home Social History Tobacco Use Types Packs/Day Years Used Date Smoking Tobacco: Former Smokeless Tobacco: Never Alcohol Use Standard Drinks/Week Comments Yes 14 (1 standard drink = 0.6 oz pu re alcohol) [facility] Utilities Answer Date Recorded In the past 12 months has [facility] [employer], gas, oil, or water [employer] threatened to shut off services in your home? No 03/21/2024 Hunger Vital Sign Answer Date Recorded Within the past 12 months, y ou worried that your food would run out before you got the money to buy more. Never true 03/21/20 24 Within the past 12 months, t he food you bought just didn't last and you didn't have money to get more. Never true 03/21/2024 PRAPARE - Transportation Answer Date Re corded In the past 12 months, has l ack of transportation kept you from medical appointments or from getting medications? No 04/2024 In the past 12 months, has l ack of transportation kept you from meetings, work, or from getting things needed for daily living? No 03/21/2024 Housing Stability Vital Sign Answer Rodrigo e Recorded In the last 12 months, was t here a time when you were not able to pay the mortgage or rent on time? No 03/21/2024 In the past 12 months, how m any times have you moved where you were living? 1 03/21/2024 At any time in the past 12 m [facility], were you homeless or living in a fci (including now)? No 03/21/2024 DH IPV Inpatient Questions Answer Date Recorded Does Anyone Try to Keep You From Having Contact with Others or Doing Things Outside Your Home? no 03/19/2024 Feels Threatened by Someone no 02/2024 Feels Unsafe at Home or Work/School no 03/19/2024 Physical Signs of Abuse Present no 03/19/2024 Sex and Gender Information Value Date Recorded Sex Assigned at Not on file Gender Identity Not on file Sexual Orientation Not on file documented as of this encounter Last Filed Vital Signs Vital Sign Reading Time Taken Comments Blood Pressure 124/83 03/22/2024 11:03 AM EDT Pulse 69 03/22/2024 11:03 AM EDT Temperature 36.9 ??C (98.4 ??F) 03/22/2024 11:03 AM E DT Respiratory Rate 16 03/22/2024 11:03 AM EDT Oxygen Saturation 98% 03/22/2024 11:03 AM EDT Inhaled Oxygen Concentration - - Weight 55 kg (121 lb 4.8 oz) 03/22/2024 4:06 AM EDT Height 157.5 cm (5' 2.01) 03/22/2024 4:06 AM ED T Body Mass Index 22.18 03/22/2024 4:06 AM EDT documented in this encounter Discharge Summaries * Kathryn Walker MD - 03/22/2024 11:41 AM EDT Discharge Summary Patient Name: Isa Ro Patient Age: 59 y.o. Language: Montserratian Race: White Ethnicity: Not nor Admit date: 03/19/2024 Discharge date and time: 03/22/24 Attending Physician: Kathryn Walker MD Discharge Physician: Kathryn Walker MD Brief Hospital Course Summary: Isa Ro is a 59 y.o. female with history of coronary disease s/p PCI to LAD in 2013 who presents with anterolateral STEMI with occluded prox-LAD. 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 Patient briefly requiring BiPAP. Patient received IV lasix 40 x1 in CVCC with adequate output and patient appearing euvolemic since. Patient also reported previous avoidance of medications and preferring to manage with lifestyle modifications only. Discussed importance of new medications, especially compliance with DAPT, given STEMI. Patient verbalized understanding and agreement with medication compliance post-discharge. Follow-up Recommendations for Providers: Medication Changes [ ] ASA 81mg daily and plavix 75mg daily for 1 year - Discussed importance of compliance with DAPT with patient and instructed patient to call if any missed doses noted [ ] START coreg 3.125 BID - okay to reschedule medications as long as both doses taken ~9-12 hrs apart [ ] START atorvastatin 80mg daily - CoQ10 supplementation provided To Do [ ] recommend CMP, CBC, mag, phos with PCP follow-up [ ] consider addition of ACEi/ARB outpatient given mildly reduced LVEF [ ] f/u [facility] cardiology scheduled. [facility] cardiology referral sent Inpatient Provider Contact Information: Kathryn Walker MD [phone] For questions regarding this document or issues relating to this hospitalization on the Medical Service, please contact your inpatient physician through the [facility] [employer] . Issues afterhours and on weekends will be handled by the Hospitalist staff on-call. Discharge Diagnoses (Hospital Problems) and Secondary Diagnoses (Chronic Problems): Active Hospital Problems Diagnosis Acute ST elevation myocardial infarction (STEMI) due to occlusion of left anterior descending (LAD) coronary artery Resolved Hospital Problems No resolved problems to display. There are no active non-hospital problems to display for this patient. Operations/Major Procedures/Imaging Results for orders placed or performed during the hospital encounter of 03/19/24 XR Chest One View (Exam End: 03/19/2024 8:37 AM) Result Value WORKSTATION ID [id number] Narrative EXAMINATION: XR CHEST ONE VIEW CLINICAL HISTORY: STEMI, hypoxia, presumed pulmonary edema TECHNIQUE: 1 view of the chest COMPARISON: None FINDINGS: The cardiomediastinal silhouette is unremarkable. No focal consolidation. Hazy right lower lobe opacity suggests atelectasis. No pleural effusion or pneumothorax. No acute osseous abnormalities are found. Impression Hazy right lower lobe opacity suggests atelectasis without other acute cardiopulmonary disease detected. Thank you for letting us participate in the care of this patient. If you are a health care provider and have any questions regarding this report, please contact the number below. For patients who have questions please contact the health respiratory care faculty that requested your imaging first. Cardiac Catheterization (Exam End: 03/19/2024 1:36 AM) Narrative [facility] Cardiac Catheterization/Intervention Report Patient Name: Isa Ro Procedure Date: 03/19/2024 A #: [id number] Primary Physician: Ramo Roy Case #: [id number] File Name: [id number] Catheterization Order Number: [id number] [facility] Final Report [place], [place] Patient Name: Isa Ro ID#: [id number] : 1965 Procedure Date: March 19, 2024 Case #: [id number] Room: 6 Case Physician: Ramo Roy M.D. Start: 00:55 Fellow: John Munroe M.D. Admission: 03/18/2024 Referring Physician: Facundo WILEY M.D. Procedures: * Coronary Angiography * Left Heart Catheterization * Coronary Ultrasound * Coronary Stent Insertion * Arterial Blood Gases Pre Case Status: These procedures were performed on an emergent basis. History Isa Ro is a 59 year old woman. She has hypertension and a family history of coronary artery disease. The patient's smoking status is Never. She has hypercholesterolemia. The patient has a prior history of coronary artery disease. She is status post an acute ST elevation myocardial infarction. The patient had a remote coronary intervention procedure. Prior to the initiation of this procedure, the patient was designated as ASA Class IV. The [facility] clinical frailty scale is 3: Managing Well. Diagnostic Tests: Prior Coronary Angiography: Prior coronary angiography was performed on 12/15/2014. Electrocardiography: EKG was assessed by ECG. EKG was Abnormal. EKG showed ST Deviation >= 0.5 mm and other abnormality. Medications Prior to Procedure: Aspirin. Indications for Diagnostic Cath: The priority of the diagnostic procedure was Emergent. The indication for the labor relations teacher visit is ACS less than or equal to 24 hrs. Chest pain symptom assessment was: Typical Angina. Technique: A 6 SLFr sheath was inserted in the right radial artery utilizing the Seldinger technique. The left coronary artery was injected utilizing a 5Fr TIG 4.0 catheter. A 5Fr TIG 4.0 catheter was used to inject the right coronary artery. Coronary stent insertion was performed and the equipment utilized will be described in the intervention summary section. 4,000 units of heparin were administered. A total of 200cc of Omnipaque were opened, 118cc of Omnipaque were administered and 82cc of Omnipaque were wasted. Radiation: Fluoro time was 12.9 minutes, dose area product was 29.00 Gy/cm2 and air kerma was 428 mGY. See the case log for additional details. The patient received the following medications prior to and during the procedure: Unfractionated Heparin. Hemodynamics: Left Heart Pressures Resting: Syst Diast EDP a v m Ao 118 66 80 LV 118 31 Coronary Angiography: Dominance: Right Left Main The left main was normal, free of disease. Left Anterior Descending There was a single discrete total occlusion of the mid segment of the left anterior descending artery (LAD). There was a single discrete total occlusion of the distal segment of the first septal branch (1st Septal) of the LAD. There was evidence of thrombus in this lesion. Left Circumflex The left circumflex (LCX) was normal, free of disease. Right Coronary Artery The right coronary artery (RCA) was normal, free of disease. Intravascular Imaging/Physiology: Intravascular Ultrasound was performed in the mid LAD using a 6 Fr EBU 3.5 guiding catheter and a 3.5 Fr [place] [facility] [employer] 20 Mhz using auto 1 mm/sec pullback. Imaging was successful. Image quality was excellent. A vasodilator was administered. Indication: IVUS performed for pre intervention planning and post intervention assessment. IVUS performed after pre-dilation. IVUS performed after vessel manipulation. Findings Pre-Intervention: diffuse plaque. The proximal reference minimum luminal diameter was 3.00mm. The distal reference minimum luminal diameter was 3.00mm. The average reference minimum luminal diameter was 3.00mm. These measurements were performed after pre-dilation of the lesion. Findings Post-Intervention: The stent was well expanded and apposed. Conclusions: stent/intervention appears optimized. Indication for Intervention: Coronary intervention was indicated for primary therapy for an acute myocardial infarction. The priority for the procedure was Emergent. The [facility] indication for the procedure was STEMI-Immediate PCI for Acute STEMI. STEMI onset was 03/18/2024 at 9:00 PM. Thrombolytics were administered on 03/18/2024 at 10:22 PM. Intervention Summary: Left Anterior Descending Artery Mid 100% Stent insertion was performed on the total occlusion in the mid segment of the LAD. This was a drug-eluting stent thrombosis lesion. According to the ACC/AHA classification system, this lesion was a type B2 high risk lesion. Management of recurrent restenosis was the indication for stent insertion. This was the culprit lesion. A guidewire was placed across this lesion. Vessel flow pre intervention was ADALID 0. Lesion length was 19mm. This was a previously treated lesion on 09/14/2013. Stent insertion was accomplished through a 6 Fr. EBU 3.5 guide. The lesion was predilated with a 2.50mm EUPHORA 12 MM balloon with a maximum inflation pressure of 14 atmospheres. A premounted 3.00 x 08 mm Alberto Penitas (JAHAIRA) was deployed with a maximum inflation pressure of 12 atmospheres. Another stent insertion was accomplished through a 6 Fr. EBU 3.5 guide. A premounted 2.00 x 08 mm [place] Penitas (AJHAIRA) was deployed. The final outcome was defined as successful. There was no residual stenosis following this intervention. The final ADALID flow was 3. Vascular Access: Vascular Access Management: Mechanical Compression of the right radial artery access site was performed. Point of Care Testing: ABG: Arterial Blood gasses were performed using the I-Stat analyzer at 01:00: pH: 7.28, pCO2: 39.5, pO2: 84.0, sPO2: 95%, HCO3: 19 on FIO2: bipap. I-Stat: I-Stat was performed using the I-Stat analyzer at 01:30: Na+: 134, K+: 3.4, iCa++: 1.09, Hct: 38%, Hb: 12.9. Dual Antiplatelet (DAPT) Recommendations: Drug eluting stent (JAHAIRA) inserted. P2Y12 Loading dose administered prior to arrival in the labor relations teacher. Recommended anti-platelet/anti-thrombotic regimen: Start aspirin 81 mg daily now and continue for indefinitely. Start clopidogrel 75 mg daily now and continue for 12 months then stop. These recommendations are made at the time of the intervention. Patient and provider preferences or a changing clinical situation may require modification of this regimen. Consult [facility] Interventional Cardiology for questions. The 1 year bleeding risk as calculated by the PRECISE DAPT score is Moderate risk. This patient has a high DAPT score and may benefit from prolonged (12-30 months) dual antiplatelet therapy if the patient has completed 12 months of DAPT without having a major bleeding or ischemic event and the patient is NOT on chronic anticoagulation. This should be used for guidance in the overall conversation about prolonged dual antiplatelet therapy and not as a recommendation for or against any medical treatment. Consult http://tools.acc.org/DAPTriskapp/#!/content/calculator/ or [facility] Interventional Cardiology for questions Conclusions: * One vessel coronary artery disease (LAD) * Elevated left ventricular end diastolic pressure * Successful stent insertion of the mid LAD lesion * See Dual Antiplatelet (DAPT) Recommendations above Complications/Events: The patient had no complications during these procedures. Post Procedure Fluid Recommendations: IV fluid at 122 mL/hr for 4 hours for a total of 488 mL. These recommendations are made at the time of the procedure. Patient and provider preferences or a changing clinical situation may require modification of this regimen. The attending physician was present for the entire procedure. Dr. Ramo Roy M.D. was present during the moderate sedation intraservice time as documented by the sedation nurse. Case time = 00:32. Dr. Ramo Roy M.D. performed the coronary angiography, left heart catheterization, IVUS # coronary, stent insertion-coronary and ABG. Ramo Roy M.D. Electronically Signed by: Ramo Roy M.D. Report Finalized: 03/19/2024 01:56 Report Last Ammended: 03/21/2024 09:37 TTE 03/19/24 Interpretation Summary Normal left ventricle size with mildly reduced LV function. LV ejection fraction 49%. LAD territory wall motion abnormality, predominantly involving the LV apex. No LV thrombus visualized with echo contrast. Normal right ventricle. No significant valvular abnormalities. Compared with prior echo dated 08/28/23, LV function has now decreased and new wall motion abnormalities. Procedure Complete-[id number]. Image enhancement Definity was used for left ventricular opacification. Suboptimal quality. There is normal sinus rhythm. Left Ventricle Left ventricle is of normal size. Wall thickness is normal. There is no ventricular septal defect. Left ventricular systolic function is mildly reduced. The left ventricular ejection fraction is 49% by Davis's biplane. There are segmental wall motion abnormalities. There is an accessory muscular band that originates in the LV apex; no thrombus visualized with echocontrast. Right Ventricle The right ventricle is of normal size. Right ventricular systolic function is normal. Left Atrium The left atrium is mildly dilated. There is no evidence for a patent foramen ovale. Right Atrium The right atrium is normal. Aortic Valve The aortic valve is tricuspid. There is no aortic stenosis. There is no aortic regurgitation. Mitral Valve The mitral valve is structurally normal. There is no mitral stenosis. There is mild mitral regurgitation. Tricuspid Valve The tricuspid valve is structurally normal. There is no tricuspid stenosis. There is trace tricuspid regurgitation. Pulmonic Valve The pulmonic valve appears to be structurally normal. There is no valvular pulmonic stenosis. There is mild pulmonic valve regurgitation. Great Arteries The diameter at the level of the sinuses of Valsalva is 2.8 cm. The maximum diameter of the proximal ascending aorta is 2.7 cm. No abnormalities of the pulmonary artery are identified. Venous Inferior vena cava is normal in size. Inferior vena cava collapse greater than 50% with respiration. Pericardium/Pleural There is no pericardial effusion. Hemodynamics The peak right ventricular systolic pressure is 26.7 mmHg . The estimated right atrial pressure is 3mmHg. There is Grade I LV diastolic dysfunction (abnormal relaxation with normal left ventricular filling pressure). Ejection Fraction 2D Measurements Volumes EF(MOD-bp): 49.0 % IVSd: 1.1 cm LAV(MOD-bp) Indexed: LVIDd: 3.7 cm LVPWd: 0.87 cm 36.1 ml/m2 RWT: 0.47 RA A4Cs_phl: 12.4 cm2 EDV(MOD-bp) Indexed: LV mass(C)d: 115.0 grams LV mass(C)dI: 73.1 grams/m2 61.2 ml/m2 Ao root diam: 2.8 cm ESV(MOD-bp) Indexed: Ao root diam index: 1.8 31.2 ml/m2 asc Aorta Diam: 2.7 cm SV(LVOT): 42.7 ml LVOT diam: 1.7 cm TAPSE_phl: 2.0 cm SI(LVOT): 27.1 ml/m2 Doppler LV V1 VTI: 18.9 cm MV E max walt: 100.0 cm/sec MV A max walt: 67.1 cm/sec MV E/A: 1.5 MV dec time: 0.16 sec Lat Peak E' Walt: 8.5 cm/sec E/e' (lat): 11.7 Med Peak E' Walt: 7.4 cm/sec E/e' (med): 13.6 E/e' Average: 12.7 TR max walt: 243.6 cm/sec RVSP(TR): 26.7 mmHg History of Presentation (per admission H&P 03/19/24): Isa Ro is a 59 y.o. female with history of coronary disease s/p PCI to LAD in 03/2014, JOES[facility], who presented to [facility] with chest pain. She developed chest pain around 2100 on 03/18 which prompted her to call EMS. She was given 325mg of aspirin and nitroglycerin. On arrival to [facility], she was found to have an EKG suggestive of anterior STEMI for which she was given half dose TNKfor systemic lysis prior to speaking with Dr. Herrera, on-call lock plater at [facility]. 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 PMH: Reviewed, pertinent detailed above. PSH: Reviewed, pertinent detailed above. Meds: Previously took Losartan but off during summer Allergies: See list. Family History: Mother: s/p CABG Father with heart ds from [place] Social History: Tobacco: None EtOH: Daily 2 beers Illicits: None Living Situation: Lives alone, single mother Vital Signs at Discharge: BP: 124/83, Heart Rate: 69, Temp: 36.9 ??C (98.4 ??F), Resp: 16, BMI (Calculated): 22.18 Height: 157.5 cm (5' 2.01) (03/22/24 040) Weight: 55 kg (121 lb 4.8 oz) (03/22/24405) Functional and Cognitive Status: at baseline Awake, alert, oriented x4. Ambulating well with no assistance required and asymptomatic with ambulation. Lungs CTAB, no LE edema, heart sounds RRR Important Studies and Lab Data: Labs: Last 3 wbc, hgb, hct plt Recent Labs 03/22/24 0506 03/21/24 0257 03/20/24 1038 WBC 11.6* 10.6* 13.2* HGB 13.5 12.8 13.0 HCT 40.3 38.2 38.7 PLATELET 232 242 238 Last 3 Lytes Recent Labs 03/22/24 0506 03/21/24 0257 03/20/24 1038 NA 138 144 137 K 4.1 4.2 4.3 CL 104 107 101 CO2 24 25 22 BUN 18 15 11 CREATININE 0.87 0.82 0.82 Last 3 LFTs Recent Labs 03/19/24 0525 03/19/24 0220 AST 95* 49* ALT 31* 26 ALKPHOS 70 67 BILITOT 0.5 0.4 BILIDIR -- 0.1 Last Ca, Mg, Phos Recent Labs 03/22/24 0506 03/19/24 0503/19/24 022 CALCIUM 9.2 < > 8.2* PHOS -- -- 3.8 MAGNESIUM 0.90 < > 0.71 < > = values in this interval not displayed. Last 3 Coags Recent Labs 03/19/24 0503/19/24 022 PT 10.9 11.7 INR 1.0 1.0 PTT 29 123* Last 3 ProBNP, Trop, CK Recent Labs 03/19/24 022 PROBNP 529* Last 3 TFT No results for input(s): TSH in the last 7068 hours. Invalid input(s): T4, FT4 Last 3 Lipids Recent Labs 03/19/24 05 CHLPL 324 HDL 68 LDLCHOL 216 TRIG 200 Last 3 HgbA1C Recent Labs 03/19/24 05 HA1C 5.6 Pending Studies and Lab Data: None Discharge Conditions/Prognosis: stable Discharge to: home Updated Allergies/ADRs: No Known Allergies Immunizations Given this Hospitalization: There is no immunization history on file for this patient. Discharge Medications: Your Medications New Medications Dose Details aspirin 81 mg chewable tablet Take 81 mg by mouth daily. Start taking on: March 23, 2024 81 mg Quantity: 30 tablet Refills: 3 atorvastatin 80 mg tablet Commonly known as: Lipitor Take 1 tablet by mouth daily. Start taking on: March 23, 2024 80 mg Quantity: 30 tablet Refills: 3 carvediloL 3.125 mg tablet Commonly known as: Coreg Take 1 tablet by mouth 2 times daily (with meals). 3.125 mg Quantity: 60 tablet Refills: 3 clopidogreL 75 mg tablet Commonly known as: Plavix Take 1 tablet by mouth daily. Start taking on: March 23, 2024 75 mg Quantity: 90 tablet Refills: 3 famotidine 20 mg tablet Commonly known as: Pepcid Take 1 tablet by mouth 2 times daily as needed. 20 mg Quantity: 30 tablet Refills: 12 nitroGLYcerin 0.4 mg sublingual tablet Commonly known as: Nitrostat Place 1 tablet under the tongue every 5 minutes as needed for Chest pain. 0.4 mg Quantity: 90 tablet Refills: 12 ubiquinone (Coenzyme Q10) 50 mg capsule Commonly known as: Ubiquinone Take 1 capsule by mouth daily. Start taking on: March 23, 2024 50 mg Quantity: 30 capsule Refills: 3 Continued medications, unchanged Dose Details ketoconazole 2 % Shampoo Commonly known as: NIZORAL Apply topically to scalp, let sit 3-5 minutes then rinse off. Alternate with home OTC anti dandruffshampoo every few washes Quantity: 120 mL Refills: 3 Smoking Status at Discharge: Social History Tobacco Use Smoking Status Former Smokeless Tobacco Never Instructions Given to Patient at Discharge: Patient Instructions You were hospitalized for treatment of your heart attack. A heart attack (myocardial infarction, orMI) occurs when one or more of the coronary arteries, which supply the heart with oxygen-rich blood, is blocked. A blockage usually occurs when plaque inside the artery breaks open and a blood clot forms in the artery. In order to treat this, you underwent a cardiac catheterization at which time a stent was placed to mid- left anterior descending coronary artery. In order to protect your stent from blood clots forming, you will need to remain on two antiplatelet medications called aspirin and clopidogrel (plavix) for a minimum of 1 year. After this time, yourcardiologist will determine if you need to continue on both blood thinners, or if either can be stopped. You will likely be on aspirin life-long. It is very important you take these two medications ev eryday to prevent blood clots in the stent. You were also started on a beta artis called carvedilol which will help reduce workload on your heart, as well as a statin called atorvas which will help reduce your cholesterol as well as help to reduce inflammation in your heart arteries. You were provided with a supply of sublingual nitroglycerin. Keep it with you at all times. If you have angina symptoms, such as chest pain or pressure, sit down and rest. Take the first dose of nitroglycerin and let it melt under your tongue. If symptoms go away, do not take any additional. If your symptoms get worse or are not getting better within 5 minutes, take a second nitro tab and call 911 right away. Stay on the phone. The emergency tetryl dissolver operator will tell you what to do. Nitroglycerin is an emergency use medication. If you are taking this more than once in a week please alert your provider. Nitroglycerin in the original bottle is good for 1 year once the bottle is opened or until the date on the bottle is not used. If the bottom of the bottle is obscured by powder,or the label falls of discard the nitroglycerin and get a new bottle. You may resume light activity such as walking after your discharge. Do not do any strenuous activity for the first week after your catheterization, including no lifting anything over 10 lbs. This is to help protect your cardiac cath access site and to continue to let it heal properly. You may shower, but do not submerge your cardiac cath access site in water for 1 week (no tubs, hot tubs, lakes, or pools). Call your doctor if: Chest pain, dyspnea, pain or swelling in legs occurs, or for weight gain of 2 pounds overnight or 5pounds in 5 days. If you have non-emergent questions, prior to your follow-up visit call: Thursday-Thursday between the hours of 8AM-5PM please call the Cardiology Clinic [phone] to speak with a nurse. All other hours please call the [facility] [phone] and ask to speak to the cardiovascular hospitalist on-call. Return to work: One week Follow up Appointments: Doctor Where Phone # Date Time PCP MELECIO Polanco [address] [place] [address] 04/04/24 7:55 AM Returned Item Clerk Herlinda Weaver PA-C [facility] Cardiology Clinic [phone] 05/09/24 10:40 AM (pleasearrive by 10:20 AM) *A referral has also been placed to [facility] cardiology, though you will need to follow-up with them regarding scheduling appointments at [phone] General Instructions None Future Appointments and Orders Future Appointments and Orders Future Appointments Provider Department Dept Phone 05/09/2024 10:40 AM Herlinda Weaver PA Cardiology at [facility] Arrive at: [facility] [phone] Future Orders Complete By Expires Referral to Cardiac Rehab [[id number] Custom] As directed Process Instructions: If no progress note charted, please enter Clinical details in comments. Scheduling Instructions: Questions: My question or request is: s/p STEMI- cardiac rehab at [facility] Referral to Cardiology [[id number] Custom] As directed Process Instructions: If no progress note charted, please enter Clinical details in comments. Scheduling Instructions: Questions: My question or request is: s/p STEMI Discharge References/Attachments None Greater than 30 minutes was spent on this discharge including documentation, [id number] time withthe patient, patient education, enrobing machine corder, coordination with pharmacy and other patient care. documented in this encounter Discharge Instructions * Patient Instructions* Kathryn Walker MD - 03/22/2024 7:46 AM EDT You were hospitalized for treatment of your heart attack. A heart attack (myocardial infarction, orMI) occurs when one or more of the coronary arteries, which supply the heart with oxygen-rich blood, is blocked. A blockage usually occurs when plaque inside the artery breaks open and a blood clot forms in the artery. In order to treat this, you underwent a cardiac catheterization at which time a stent was placed to mid- left anterior descending coronary artery. In order to protect your stent from blood clots forming, you will need to remain on two antiplatelet medications called aspirin and clopidogrel (plavix) for a minimum of 1 year. After this time, yourcardiologist will determine if you need to continue on both blood thinners, or if either can be stopped. You will likely be on aspirin life-long. It is very important you take these two medications ev eryday to prevent blood clots in the stent. You were also started on a beta artis called carvedilol which will help reduce workload on your heart, as well as a statin called atorvas which will help reduce your cholesterol as well as help to reduce inflammation in your heart arteries. You were provided with a supply of sublingual nitroglycerin. Keep it with you at all times. If you have angina symptoms, such as chest pain or pressure, sit down and rest. Take the first dose of nitroglycerin and let it melt under your tongue. If symptoms go away, do not take any additional. If your symptoms get worse or are not getting better within 5 minutes, take a second nitro tab and call 911 right away. Stay on the phone. The emergency tetryl dissolver operator will tell you what to do. Nitroglycerin is an emergency use medication. If you are taking this more than once in a week please alert your provider. Nitroglycerin in the original bottle is good for 1 year once the bottle is opened or until the date on the bottle is not used. If the bottom of the bottle is obscured by powder,or the label falls of discard the nitroglycerin and get a new bottle. You may resume light activity such as walking after your discharge. Do not do any strenuous activity for the first week after your catheterization, including no lifting anything over 10 lbs. This is to help protect your cardiac cath access site and to continue to let it heal properly. You may shower, but do not submerge your cardiac cath access site in water for 1 week (no tubs, hot tubs, lakes, or pools). A referral to cardiac rehab has also been placed to [facility]. Call your doctor if: Chest pain, dyspnea, pain or swelling in legs occurs, or for weight gain of 2 pounds overnight or 5pounds in 5 days. If you have non-emergent questions, prior to your follow-up visit call: Thursday-Thursday between the hours of 8AM-5PM please call the Cardiology Clinic [phone] to speak with a nurse. All other hours please call the [facility] [phone] and ask to speak to the cardiovascular hospitalist on-call. Return to work: One week Follow up Appointments: Doctor Where Phone # Date Time PCP MELECIO Polanco [address] [place], [place] [id number] 04/04/24 7:55 AM Returned Item Clerk Herlinda Weaver PA-C [facility] Cardiology [facility]A Clinic [phone] 05/09/24 10:40 AM (pleasearrive by 10:20 AM) *A referral has also been placed to [facility] cardiology, though you will need to follow-up with them regarding scheduling appointments at [phone] documented in this encounter Medications at Time of Discharge Medication Sig Dispensed Refills Start Date End Date aspirin 81 mg chewable tablet Take 81 mg by mouth daily. 30 tablet 3 03/23/2024 atorvastatin (Lipitor) 80 mg tablet Take 1 tablet by mouth daily. 30 tablet 3 03/23/2024 clopidogreL (Plavix) 75 mg tablet Take 1 tablet by mouth daily. 90 tablet 3 03/23/2024 famotidine (Pepcid) 20 mg tablet Take 1 tablet by mouth 2 times daily as needed. 30 tablet 12 03/22/2024 nitroGLYcerin (Nitrostat) 0.[address] 1 tablet under the tongue every 5 minutes as needed for Chest pain. 90 tablet 12 03/22/2024 ubiquinone, Coenzyme Q10, (Ubiquinone) 50 mg capsule Take 1 capsule by mouth daily. 30 capsule 3 03/23/2024 ketoconazole (NIZORAL) 2 % ShampooIndications:Nathen orrheic dermatitis Apply topically to scalp, let sit 3-5 minutes then rinse off. Alternate with home OTC anti dandruff shampoo every few washes 120 mL 3 12/08/2023 carvediloL (Coreg) 3.125 mg tablet Take 1 tablet by mouth 2 times daily (with meals). 60 tablet 3 03/22/2024 03/27/2024 documented as of this encounter Progress Notes * Horace Hancock MD - 03/21/2024 10:27 AM EDT Inpatient Cardiology Progress Note Patient Name: Isa Ro Service: CV2 Responsible Attending: Horace Hancock MD Reason for continued hospitalization: Evaluation and management of STEMI Active Problems: Active Hospital Problems Diagnosis Acute ST elevation myocardial infarction (STEMI) due to occlusion of left anterior descending (LAD) coronary artery Resolved Hospital Problems No resolved problems to display. Interval History: -No acute events overnight -Patient reports significant fatigue this morning, citing it difficult to wake up. This reportedly self-resolved prior to medication administration this morning. She denies recurrence of chest pain. -S/p 48 hrs monitoring -Planned for discharge tomorrow (72 hrs) pending no acute events -Patient agreed to participate in cardiac rehab at [facility] following discharge Review of Systems: Review of Systems Constitutional: Positive for fatigue. Negative for chills and fever. Respiratory: Negative for chest tightness. Cardiovascular: Negative for chest pain, palpitations and leg swelling. Gastrointestinal: Negative for abdominal distention and abdominal pain. Pt endorses bloating Genitourinary: Negative for dysuria. Telemetry: HR: 60s-80s sinus rhythm Meds: Scheduled Meds: famotidine 20 mg Oral BID ascorbic acid (Vitamin C) 500 mg Oral Daily sodium chloride 0.9 % (flush) 5 mL Intravenous BID heparin (porcine) 5,000 Units Subcutaneous Q8H KAILA aspirin 81 mg Oral Daily clopidogreL 75 mg Oral Daily atorvastatin 80 mg Oral Daily carvediloL 3.125 mg Oral BID ubiquinone (Coenzyme Q10) 50 mg Oral Daily Continuous Infusions: PRN Meds:alum-mag hydroxide-simeth, sodium chloride 0.9 % (flush), nitroGLYcerin, acetaminophen, potassium chloride ER OR potassium chloride ER, magnesium sulfate OR magnesium sulfate Physical Exam: Vital Signs: Last value Range last 24 hrs Temperature Temp: 36.9 ??C (98.4 ??F) Temp: [36.8 ??C (98.2 ??F)-37.2 ??C (98.9 ??F)] Heart Rate Heart Rate: 77 Heart Rate: [68-77] Blood Pressure BP: 117/72 BP: (117-127)/(59-83) Respiratory Rate Resp: 16 Resp: [16-17] SpO2 SpO2: 97 % SpO2: [93 %-100 %] Physical Exam Constitutional: General: She is not in acute distress. Appearance: Normal appearance. She is not ill-appearing or toxic-appearing. HENT: Head: Normocephalic and atraumatic. Eyes: General: No scleral icterus. Conjunctiva/sclera: Conjunctivae normal. Cardiovascular: Rate and Rhythm: Normal rate and regular rhythm. Pulses: Normal pulses. Heart sounds: Normal heart sounds. No murmur heard. No gallop. Pulmonary: Effort: Pulmonary effort is normal. Breath sounds: Normal breath sounds. Abdominal: General: Abdomen is flat. Bowel sounds are normal. There is no distension. Tenderness: There is no abdominal tenderness. Musculoskeletal: Right lower leg: No edema. Left lower leg: No edema. Skin: General: Skin is warm. Capillary Refill: Capillary refill takes less than 2 seconds. Neurological: General: No focal deficit present. Mental Status: She is alert. Mental status is at baseline. Lab Comments: Recent Labs 03/21/24 0257 03/20/24 1038 03/19/24 0525 WBC 10.6* 13.2* 18.6* HGB 12.8 13.0 13.7 HCT 38.2 38.7 40.6 PLATELET 242 238 285 Recent Labs 03/19/24 0525 INR 1.0 Recent Labs 03/21/24 0257 03/20/24 1038 03/19/24 0525 NA 144 137 137 K 4.2 4.3 4.2 CL 107 101 100 CO2 25 22 22 BUN 15 11 14 CREATININE 0.82 0.82 0.91 Recent Labs 03/19/24 0525 03/19/24 0220 AST 95* 49* ALT 31* 26 ALKPHOS 70 67 BILITOT 0.5 0.4 BILIDIR -- 0.1 Recent Labs 03/21/24 0257 03/20/24 1038 03/19/24 2301 03/19/24 0525 03/19/24 0220 CALCIUM 9.2 9.0 -- 8.7 8.2* MAGNESIUM 0.91 0.88 0.96 -- 0.71 PHOS -- -- -- -- 3.8 Recent Labs 03/19/24 23003/19/24 2040 03/19/24 1445 TROPONINTHS 2,406* 2,586* 3,792* Pertinent Radiographic/Diagnostic Results: TTE 03/19/24: Interpretation Summary Normal left ventricle size with mildly reduced LV function. LV ejection fraction 49%. LAD territory wall motion abnormality, predominantly involving the LV apex. No LV thrombus visualized with echo contrast. Normal right ventricle. No significant valvular abnormalities. Compared with prior echo dated 08/28/23, LV function has now decreased and new wall motion abnormalities. Assessment: Isa Ro is a 59 y.o. female with history of coronary disease s/p PCI to LAD in 2013 who presents with anterolateral STEMI with occluded prox-LAD. 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 She was also a bit hypercapnic which could be related to sedation. LVEDP 31 on LHC, received 40mg IV lasix x1 in CVCC with adequate UOP. Pt euvolemic appearing. LDL #Anterior STEMI #ICM, LVEF 49% #HTN -TTE shows LVEF 49%, WMAs in LAD distribution -Aspirin 81mg -Plavix 75mg qd (cost check needed) -Atorvastatin 80mg - Coreg 3.125mg BID -Continue to discuss with pt re: Losartan/GDMT consideration -Cardiac Rehab at [facility] following discharge -Telemonitoring x72 hours -Plan for discharge tomorrow -Cardiology appointment scheduled 05/09/2024 at 10:40 AM t [facility] #Significant HLD -LDL 324 -Atorvastatin 80mg daily -May need additional agents for control #Hx GERD -Famotidine 20mg daily Horace Hancock MD 03/21/2024 * Horace Hancock MD - 03/20/2024 10:42 AM EDT Inpatient Cardiology Progress Note Patient Name: Isa Ro Service: CV2 Responsible Attending: Horace Hancock MD Reason for continued hospitalization: Evaluation and management of STEMI Active Problems: Active Hospital Problems Diagnosis Acute ST elevation myocardial infarction (STEMI) due to occlusion of left anterior descending (LAD) coronary artery Resolved Hospital Problems No resolved problems to display. Interval History: -Patient had episode of chest pain overnight, resolved following SLN. EKG stable. -This morning she denies chest pain/pressure with exertion or at rest -She reports fatigue, episodic leg cramps Review of Systems: Review of Systems Constitutional: Positive for fatigue. Negative for chills and fever. Respiratory: Negative for chest tightness. Cardiovascular: Negative for chest pain, palpitations and leg swelling. Gastrointestinal: Negative for abdominal distention and abdominal pain. Pt endorses bloating Genitourinary: Negative for dysuria. Neurological: Positive for light-headedness and headaches. Telemetry: HR: 60s-80s sinus rhythm Meds: Scheduled Meds: ascorbic acid (Vitamin C) 500 mg Oral Daily [START ON 03/21/2024] famotidine 20 mg Oral Daily sodium chloride 0.9 % (flush) 5 mL Intravenous BID heparin (porcine) 5,000 Units Subcutaneous Q8H KAILA aspirin 81 mg Oral Daily clopidogreL 75 mg Oral Daily atorvastatin 80 mg Oral Daily carvediloL 3.125 mg Oral BID WC ubiquinone (Coenzyme Q10) 50 mg Oral Daily Continuous Infusions: PRN Meds:alum-mag hydroxide-simeth, sodium chloride 0.9 % (flush), nitroGLYcerin, acetaminophen, potassium chloride ER OR potassium chloride ER, magnesium sulfate OR magnesium sulfate Physical Exam: Vital Signs: Last value Range last 24 hrs Temperature Temp: 37 ??C (98.6 ??F) Temp: [36.4 ??C (97.5 ??F)-37 ??C (98.6 ??F)] Heart Rate Heart Rate: 72 Heart Rate: [66-78] Blood Pressure BP: 118/80 BP: (117-149)/(71-92) Respiratory Rate Resp: 16 Resp: [16-18] SpO2 SpO2: 96 % SpO2: [94 %-97 %] Physical Exam Constitutional: General: She is not in acute distress. Appearance: Normal appearance. She is not ill-appearing or toxic-appearing. HENT: Head: Normocephalic and atraumatic. Eyes: General: No scleral icterus. Conjunctiva/sclera: Conjunctivae normal. Cardiovascular: Rate and Rhythm: Normal rate and regular rhythm. Pulses: Normal pulses. Heart sounds: Normal heart sounds. No murmur heard. No gallop. Pulmonary: Effort: Pulmonary effort is normal. Breath sounds: Normal breath sounds. Abdominal: General: Abdomen is flat. Bowel sounds are normal. There is no distension. Tenderness: There is no abdominal tenderness. Musculoskeletal: Right lower leg: No edema. Left lower leg: No edema. Skin: General: Skin is warm. Capillary Refill: Capillary refill takes less than 2 seconds. Neurological: General: No focal deficit present. Mental Status: She is alert. Mental status is at baseline. Lab Comments: Recent Labs 03/20/24 1038 03/19/2452403/19/24 022 WBC 13.2* 18.6* 17.2* HGB 13.0 13.7 13.3 HCT 38.7 40.6 38.7 PLATELET 238 285 281 Recent Labs 03/19/24 05 INR 1.0 Recent Labs 03/20/24 1038 03/19/2452403/19/24 022 NA 137 137 137 K 4.3 4.2 3.9 CL 101 100 100 CO2 22 22 20* BUN 11 14 14 CREATININE 0.82 0.91 0.88 Recent Labs 03/19/2452403/19/24 022 AST 95* 49* ALT 31* 26 ALKPHOS 70 67 BILITOT 0.5 0.4 BILIDIR -- 0.1 Recent Labs 03/20/24 1038 03/19/24 2301 03/19/24 0525 03/19/24 0220 CALCIUM 9.0 -- 8.7 8.2* MAGNESIUM 0.88 0.96 -- 0.71 PHOS -- -- -- 3.8 Recent Labs 03/19/24 2301 03/19/24 2040 03/19/24 1445 TROPONINTHS 2,406* 2,586* 3,792* Pertinent Radiographic/Diagnostic Results: TTE 03/19/24: Interpretation Summary Normal left ventricle size with mildly reduced LV function. LV ejection fraction 49%. LAD territory wall motion abnormality, predominantly involving the LV apex. No LV thrombus visualized with echo contrast. Normal right ventricle. No significant valvular abnormalities. Compared with prior echo dated 08/28/23, LV function has now decreased and new wall motion abnormalities. Assessment: Isa Ro is a 59 y.o. female with history of coronary disease s/p PCI to LAD in 2013 who presents with anterolateral STEMI with occluded prox-LAD. 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 She was also a bit hypercapnic which could be related to sedation. LVEDP 31 on LHC, received 40mg IV lasix x1 in CVCC with adequate UOP. Pt euvolemic appearing. 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 I asked her if it was different from the previous pain she had on day shift. She said it was the same type of pain but seemed to be a little worse. She continued to explain that she didn't really know how much pain was ok and I asked her if it was possibleshe was overly anxious about her recent procedure. She did share she is just concerned and wants tomake sure nothing else is wrong. I paged the doctor to update him of patient's complaint. EKG and Troponins ordered. Also, went to get her a nitro SL and when I returned she said the pain seemed to be moving around and maybe it was just indigestion. She took the nitro and said it gave her a headache. Tylenol was also given as she said it had helped her earlier in the day. Told patient to call if she had any worsening pain and that I would be back often to check on her. * Lashonda Pagan RN - 03/19/2024 5:21 PM EDT OUTCOME EVALUATION NOTE: OUTCOME SUMMARY: -Patient remains alert and oriented. Vital signs stable. -This am pt on 4 L NC. Currently, on room air. Denies shortness of breath. -Nitro gtt titrated for chest pain. Currently off. Will give sublingual nitro per NOV. PRN EKG x 1 for prolonged QTc. -Fair appetite. Denies nausea. No vomiting. -OOB to chair. -Voiding clear/yellow urine. -Pt discussed plan of care with MD. PLAN MOVING FORWARD: -monitor for chest pain and follow protocol. -update care team with changes in status. -Encourage mobility as tolerated. Pt transferring to HVU step down unit. Nurse to nurse report called. * Dheeraj Mcbride MD - 03/19/2024 2:50 AM EDT [facility] TeleICU Initial Assessment Note I established audio/visual communication with the patient's room, reviewed the eDH. History and Assessment: 59 yo F transferred from [facility] for a STEMI alert. Received ASA 324 mg in the field, Plavix 300 mg, heparin gtt, and TNKase. CAMERA: Sleeping NIPPV is off DRIPS: NTG 50 mcg/min Patient Vitals for the past 8 hrs: BP Pulse Resp SpO2 03/19/24 0200 118/68 65 24 100 % 03/19/24 0143 147/89 80 -- -- 03/19/24 0135 132/80 80 -- -- 03/19/24 0130 118/66 82 -- 95 % 03/19/24 0120 128/74 80 -- 95 % 03/19/24 0115 (!) 175/100 80 -- 100 % 03/19/24 0113 -- -- -- 100 % 03/19/24 0110 (!) 165/93 81 -- 100 % 03/19/24 0105 (!) 170/98 80 -- 100 % 03/19/24 0100 161/80 81 -- (!) 87 % 03/19/24 0055 152/82 80 -- 97 % 03/19/24 0050 (!) 175/101 83 -- 98 % Intake/Output Summary (Last 24 hours) at 03/19/2024 0250 Last data filed at 03/19/2024 0157 Gross per 24 hour Intake 618 ml Output 900 ml Net -282 ml A/P: #Lateral STEMI -ASA, Plavix, Lipitor, NTG gtt, 2D echo as per CVCC This is a non-billable note. * Delores Jett MD - 03/19/2024 1:51 AM EDT Cardiovascular Critical Care Attending Note Isa Ro 1965 Age: 59 y.o. PCP: Pretty Avery MD (Inactive) Date of Service: 03/19/2024 Date of Admission: 03/19/2024 Length of Stay Hospital Day 0 days Patient ID: Isa Ro is a 59 y.o. female with a history of HTN (currently not on medications), hyperlipidemia (currently not on medications) and ASCVD with prior PCI to the LAD (2013) who presented with anterolateral STEMI, received half dose TNK at referring facility prior to connecting with us, and subsequently underwent emergent PCI with difficult revascularization of the culprit LAD, complicated by elevated LVEDP and hypercapnea requiring BiPAP. The patient was seen and examined on critical care rounds. Isa Ro is a 59 y.o. female withthe following active issues: Anterolateral STEMI, LAD culprit s/p PCI Mixed hypoxic and hypercapneic respiratory failure => improving Elevated LVEDP, heart failure, presumed HFrEF/ICM (TTE pending) Hypertension Hyperlipidemia INTERVAL HISTORY: Patient presented to local hospital with chest pain Found to have anterolateral STEs (most prominent in I, aVL, V1-2V2) Referring facility administered half-dose TNK prior to connecting with fellow here Transferred emergently for PCI found to have 100% mLAD Technically challenging revascularization with significant pain but with good angiographic result Had elevated LVEDP in 30s, patient dyspneic with evidence of hypoxia/hypercapnea => BiPAP started Following procedure, transferred to [facility] - able to be weaned to [facility] Remains on low dose NTG gtt, attempts to wean off with recurrent chest discomfort. Continues to also have sensation of dyspnea. MEDICATIONS: Scheduled Meds: furosemide 40 mg Intravenous Once aspirin 81 mg Oral Daily clopidogreL 75 mg Oral Daily Continuous Infusions: nitroGLYcerin 25 mcg/min (03/19/24 0135) EXAM: Last value Range last 24 hrs Temperature Temp: -- Heart Rate Heart Rate: 80 Heart Rate: [80-83] Blood Pressure BP: 147/89 BP: (118-175)/(66-101) Respiratory Rate Resp: -- SpO2 SpO2: 95 % SpO2: [87 %-100 %] Art BP BP (Arterial Line): -- Weights: No data found. Gen- Middle aged woman, comfortable HEENT- LFNC in place CV- Regular, normal rate, no murmur Pulm- Respirations unlabored at rest Abd- Thin, soft Ext- Warm, no edema. RRA access site benign Neuro- AAOx3, face symmetric, moving all extremities normally Psych- Appropriate, cooperative. Limited insight. Skin- Non-diaphoretic Lines- PIVs PERTINENT DIAGNOSTICS: WBC 18.6 HGB 13.7 PLT 265 BUN/Cr 14/0.91 K 4.2 Na 137 AST/ALT 95/31 Bili WNL Trop 960 => 1276 ProBNP 529 Total Chol 324 / LDL 216 / 68 / Trigs 200 EKGs reviewed with initially anterolateral STEs although most prominent in I and aVL. Next EKG onlywith I, aVL and V1-V2. STEs resolved following PCI CXR (post-diuresis) - mild RLL atelectasis TTE- mildly reduced LVEF, dense apical akinesis ASSESSMENT, MANAGEMENT, and DECISION MAKING: Isa Ro is a 59 y.o. female with a history of HTN (currently not on medications), hyperlipidemia (currently not on medications) and ASCVD with prior PCI to the LAD (2013) who presented with anterolateral STEMI, received half dose TNK at referring facility prior to connecting with us, and subsequently underwent emergent PCI with difficult revascularization of the culprit LAD, complicated by elevated LVEDP and hypercapnea requiring BiPAP. Patient doing well s/p revascularization of her LAD. Still requiring significant supplemental oxygen but no longer in respiratory failure after revascularization and diuretics. Continue supportive care. Non-compliant with antihypertensives and lipid lower agents. Severely elevated LDL of 216 noted.Will require patient education. Neuro- Sedation not indicated. Analgesia APAP, lidocaine patch prn. Cardiovascular- Continue DAPT. High intensity statin therapy, may need PCSK-9. Wean NTG gtt. SerialEKGs. Trend troponin to peak. TTE today. Further GDMT pending course. Pulmonary- Supplemental O2 prn. Pulm hygiene. FEK- Monitor UOP. Net negative 1.2L following lasix administration. Re-evaluate volume status and promote euvolemia. Replete lytes prn. GI- Advance diet to Cardiac. RBOs. H2B. ID- No acute issues, usual ppx. Heme- SQH ppx. Endo- FSGs prn. Check Ha1c and thyroid cascade. Psych- Education/support provided. Extensive counseling about medical therapy of ASCVD, ICM and prevention of future events. IS THE PATIENT CRITICALLY ILL? Is there a high potential of sudden, clinically significant, or life threatening deterioration? Yes Is there a need for direct personal assessment and management to treat/prevent multiple vital organfailure/deterioration? Yes If this patient is not critically ill, the reason for continued hospitalization is NA. PATIENT IS CRITICALLY ILL WITH THESE DIAGNOSES BEING MANAGED BY Cardiology team providing critical care services ARDS PA Catheter Hyponatremia X Hypoxemic Resp Failure Cardiogenic Shock Hypernatremia Pneumonia req Ventilator X Acute Myocardial Infarction Hyperkalemia X Hypercarbic Resp Failure Subarachnoid Hemorrhage Acute Drug Ingestion / OD X Respiratory Acidosis Traumatic Brain Injury Acute Renal Failure X Acute Resp Failure Coma Acute Liver Failure Metabolic Acidosis Stupor Thrombocytopenia Hypotension, Fluids Delirium Neutropenia Hypotension, Pressors Acute Encephalopathy Hypertensive Emergency Sepsis Ascites Req Treatment Malnutrition Septic Shock with SIRS Coagulopathy Req Treatment Anaphylaxis Active Hemorrhage I personally performed 45 minutes of aggregate critical care time exclusive of procedures and teaching. This includes time spent during direct patient evaluation and reassessment, interpreting diagnostic tests, directing life and/or organ supporting interventions and documentation on the unit. The time documented is independent of the care provided by the Cardiology/Cardiac Surgery attending of record. Delores Jett MD 03/19/2024 * Yusuf Herrera MD - 03/18/2024 10:10 PM EDT STEMI Alert Note Index Event Data Initial Contact Date and Time: 03/18/2024 8:30 PM Date and Time of Presentation: 03/18/2024 10:00 PM Hospital to which patient presented: [facility] If Hospital to which patient presented= [facility]: ED via EMS Date and Time of First Medical Contact: 03/18/2024 8:30 PM Medical History (prior to current presentation) Atrial Fibrillation/ Atrial Flutter: No Hypertension: Yes Dyslipidemia: Yes Angina: Yes Myocardial Infarction: Yes Diabetes Mellitus: No Prior Percutaneous Coronary Intervention: Yes Prior Coronary Artery Bypass Graft: No Cerebrovascular Disease: No Tobacco Use: No Presenting Symptoms per OSH/EMS Time of continuous symptom onset to ED presentation 1 hour30 minutes Estimated total time from symptom onset to treatment (PCI or thrombolytic) >4 hours: No Chest Pain: Yes Shortness of breath: No Syncope: No Cardiac Arrest: No Other: Diaphoresis ECG Date and Time Initial ED EC03/18/2024 9:57 PM Date and Time First Diagnostic ECG (can be pre-hospital or ED): 03/18/2024 9:57 PM Rhythm: Sinus EKG Interpretation(choose all that apply): Lateral ST elevation Meets Strict STEMI ECG Criteria New ST elevation in V2-V3 of >- 2 mm in men, or >- 1.5 mm in women: No New ST elevation of >1 mm in other contiguous leads including limb leads: Yes Evidence of Q-wave infarction: No LBBB meeting Sgarbossa criteria for STEMI: No ST depressions with prominent R wave in V2-V3 (suspected posterior infarct): No Exam at Presentation HR: 82 SBP: 161 DBP: 80 Killip class: I (no rales) ADALID Risk Score for STEMI Age: <65 years (0 points) Diabetes, Hypertension or Angina: Yes (1 point) Systolic BP <100 mmhg: No (0 points) Heart rate >100: No (0 points) Killip Class II-IV (JVD or any pulmonary exam findings of CHF): No (0 points) Weight <67 kg (147 lbs): No (0 points) Anterior ST Elevation or LBBB: No (0 points) Time to treatment > 4 hours: No (0 points) Total Points and % 30 day mortality risk (choose one): 1 point= 1.6% Treatment Beta Artis (Any): None Asprin (Any): Yes Adjunctive PLT Inhibitor: Clopidogrel 300mg Anti-thrombotic used: Unfractionated Heparin Thrombolytic: TNK(tenecteplase) Contraindications to thrombolytic: Not contraindicated Plan STEMI Alert called: Yes Store Stocker Activated by: Oracle Fusion Middleware Architect Initial Disposition: Admit Store Stocker documented in this encounter H&P Notes * Ganesh Nguyen MD - 03/19/2024 1:11 AM EDT CARDIOLOGY ADMISSION H&P Patient Name: Isa Ro Service: Cardiology Team Responsible Attending: Destin Ambrosio MD PCP: Pretty Avery MD (Inactive) Chief Complaint: Chest Pain Active Problem List: Anterior STEMI Hypoxic Respiratory Failure requiring Noninvasive Ventilation History of Present Illness: Isa Ro is a 59 y.o. female with history of coronary disease s/p PCI to LAD in 03/2014, HLD,who presented to [facility] with chest pain. She developed chest pain around 2100 on 03/18 which prompted her to call EMS. She was given 325mg of aspirin and nitroglycerin. On arrival to [facility], she was found to have an EKG suggestive of anterior STEMI for which she was given half dose TNK for systemic lysis prior to speaking with Dr. Herrera, on-call lock plater at [facility]. 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 PMH: Reviewed, pertinent detailed above. PSH: Reviewed, pertinent detailed above. Meds: Previously took Losartan but off during summer Allergies: See list. Family History: Mother: s/p CABG Father with heart ds from [place] Social History: Tobacco: None EtOH: Daily 2 beers Illicits: None Living Situation: Lives alone, single mother ROS: Denies SOB, palpitations, PND, Orthopnea, dizziness/LH, LE swelling or pain, n/v, abd pain. Physical Exam: Vitals notable for afebrile, 80, 118/66, 100% on BIPAP I/O: -1234 Wt: 57kg Gen: pleasant in NAD HEENT: MMM CV: S1/S2 of nl character and amplitude, no m/r/g, JVP 5cm Resp: CTAB Abd: nondistended, soft, NT, nabs throughout Ext: WWP, ++ dp/pt pulses, no significant edema. Right wrist access site with TR band in place. No significant bleeding. Neuro: alert and responsive. Without overt focal deficit Labs from OSH: K 3.2. Normal Cr. Imaging/Studies: None thus far. EKG: By EMS, anterolateral STEMI. Follow up with dynamic change but persistent lateral SHERRY. ASSESSMENT: Isa Ro is a 59 y.o. female with history of coronary disease s/p PCI to LAD in 2013 who presents with anterolateral STEMI with occluded prox-LAD. 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 She was also a bit hypercapnic which could be related to sedation. NEURO: #Mild Encephalopathy Likely a bit sedated related to the morphine and fentanyl/versed she received before arriving in the [facility]. -Monitor -BIPAP as below CARDIAC: #Anterior STEMI She was found to have anterolateral STEMI by initial EKG and received systemic lysis with half doseTNK. She was loaded with aspirin and Clopidogrel 300 (due to lytic administration). Her angiographyshowed completely occluded proximal LAD at the site of her prior stent and underwent PCI to this vessel. Her LVEDP was 31 mmHg in the setting of her acute ischemia and became hypoxemic and acidemic wh ile on the cath table. She was started on bipap and given a spot dose of lasix IV. She will requireclosely monitored care in the [facility] at least overnight. An echo should be performed in the morning. She will need to be continued on DAPT for 1yr at which time stopping aspirin and using plavix as monotherapy seems reasonable. -TTE -BNP -Troponin trended to peak -Strict I/O -Aspirin 81mg -Plavix 75mg qd (please cost check) -Atorvastatin 80mg -Monitor BP for ARB/ACEi introduction -Pending echo findings, would add beta blockade -Cardiac Rehab PULM: #Hypoxic and Hypercapnic Respiratory Failure -VBG prn -BIPAP -Lasix 40mg x1, redose for goal -1L #Safety Bundle DVT- heparin sq GI- famotidine Activity- bedrest for the evening Nutrition- HH diet Lines- PIV Dispo- home in 72hrs CODE STATUS: Attempt Cardiopulmonary Resuscitation - Inpatient Ganesh Nguyen MD Oracle Fusion Middleware Architect [id number] documented in this encounter Miscellaneous Notes * Care Management Discharge - Cyndy Suárez RN - 03/22/2024 12:10 PM EDT CARE MANAGEMENT FINAL DISCHARGE NOTE Chart reviewed, care reviewed with primary team and at interdisciplinary rounds. Patient is medically ready for discharge to home via private vehicle. Needs for Transition of Care: Plan for discharge is: Home w/o Services Outpatient Agency/Support Group Needs: None Agency Referrals & Follow-up Care: Contact information for follow-up Cardiac Rehab, [facility] [address] [facility] [id number] Cardiology, [facility] [address] [facility] [address] Transportation: family or friend will provide Functional status prior to admission: Independent Home Environment: Others in the home: child(lucian), minor (lives with her 15yo son). Current Living Arrangements: home/apartment/condo. Accessibility Concerns:house with 3 floors and 2 SHERRY. Current Functional Ability: Assistive Person Patient is insured through: Primary Insurance: [place] Payor: [place] / Plan: [place] PRIMARY CARE PLUS / Product Type: *No Product type* / Secondary Insurance: N/A Prescription Coverage: Yes This plan was formulated with input from patient, and team. All are in agreement with plan. Cyndy Suárez RN * Plan of Care - Lubna Cruz RN - 03/22/2024 9:18 AM EDTSummary: End of Shift Summary OUTCOME EVALUATION NOTE: OUTCOME SUMMARY: Isa Ro is a 59 y.o. female admitted for an STEMI. Vital signs were stable. Heart rhythm was NSR. She continued to be A+O x4. Patient is showing no signs or symptoms of distress. D/C teachingwas completed, pt questions were answered, stent card was obtained. Pt was brought down to the D/C lounge via wheelchair. PLAN MOVING FORWARD: F/u w/ PCP/outpatient cardiology [facility] GOAL OUTCOME EVALUATION: Problem: Fall Injury Risk Goal: Absence of Fall and Fall-Related Injury Outcome: Ongoing (Interventions Implemented as Appropriate) Problem: Embolism (Cardiac Catheterization) Goal: Absence of Embolism Signs and Symptoms Outcome: Ongoing (Interventions Implemented as Appropriate) Problem: Pain (Cardiac Catheterization) Goal: Acceptable Pain Control Outcome: Ongoing (Interventions Implemented as Appropriate) Problem: Adult Inpatient Plan of Care Goal: Plan of Care Review Outcome: Ongoing (Interventions Implemented as Appropriate) Goal: Patient-Specific Goal (Individualized) Outcome: Ongoing (Interventions Implemented as Appropriate) Goal: Absence of Hospital-Acquired Illness or Injury Outcome: Ongoing (Interventions Implemented as Appropriate) Goal: Optimal Comfort and Wellbeing Outcome: Ongoing (Interventions Implemented as Appropriate) Goal: Readiness for Transition of Care Outcome: Ongoing (Interventions Implemented as Appropriate) Lubna Cruz RN * Plan of Care - Javon Sykes RN - 03/21/2024 8:04 PM EDT Problem: Fall Injury Risk Goal: Absence of Fall and Fall-Related Injury Outcome: Ongoing (Interventions Implemented as Appropriate) Problem: Embolism (Cardiac Catheterization) Goal: Absence of Embolism Signs and Symptoms Outcome: Ongoing (Interventions Implemented as Appropriate) Problem: Pain (Cardiac Catheterization) Goal: Acceptable Pain Control Outcome: Ongoing (Interventions Implemented as Appropriate) Problem: Adult Inpatient Plan of Care Goal: Plan of Care Review Outcome: Ongoing (Interventions Implemented as Appropriate) Goal: Patient-Specific Goal (Individualized) Outcome: Ongoing (Interventions Implemented as Appropriate) Goal: Absence of Hospital-Acquired Illness or Injury Outcome: Ongoing (Interventions Implemented as Appropriate) Goal: Optimal Comfort and Wellbeing Outcome: Ongoing (Interventions Implemented as Appropriate) Goal: Readiness for Transition of Care Outcome: Ongoing (Interventions Implemented as Appropriate) * Care Management - Rajwinder Moon - 03/21/2024 4:02 PM EDT Patient completed a [place] advance directive. Patient identified her sister Stacia as her primary health care agent and her mom Tiffany as her secondary health care agent * Initial Assessments - Cyndy Suárez RN - 03/21/2024 3:04 PM EDT Office of Care Management Initial Assessment Medical record reviewed. Plan of care and patient status discussed with direct care Registered Nurse and/or Care Team in multidisciplinary rounds. Reason for Hospitalization: chest pain Present on Admission: Acute ST elevation myocardial infarction (STEMI) due to occlusion of left anterior descending (LAD)coronary artery Hospitalizations Within the Past 30 Days: no previous admission in last 30 days Patient receiving hospital care under Inpatient status. Admission order reviewed. Health/Prescription Coverage: Primary Insurance: [place] Pay[place] / Plan: [place] PRIMARY CARE PLUS / Product Type: *No Product type* / Secondary Insurance: N/A ; Prescription Coverage: Yes Preferred Pharmacy: [address] [place] [address] [address] [facility] [address] [id number] - [place], [place] - [address] [place] [address] [address] [facility] [address] [facility] [id number] [facility] - [facility], [place] - [address] [facility] [address] [facility] [address] Advance Care Planning: Attempt Cardiopulmonary Resuscitation - Inpatient <no information> -Advanced Directive: No, need to discuss (RS referral sent for AD discussion) Current Functional Ability: Assistive Person Functional Status Prior to Admission: Independent Home Environment: Others in the home: child(lucian), minor (lives with her 15yo son). Current Living Arrangements: home/apartment/condo. Accessibility Concerns:house with 3 floors and 2 SHERRY. Current DME: none [address] [facility] [id number] Social & Family Supports: All names listed below confirmed with patient as current and correct Extended Emergency Contact Information Primary Emergency Contact: Tiffany Ro, [facility] Mobile Relation: Mother Current Care Provided by: self Transportation: no concerns Transportation Anticipated: family or friend will provide Assessment: Patient with no apparent RNCM/SW needs at this time. No housing, transportation, insurance, resources concerns identified at this time. Supports in place to achieve a safe post-hospital transition. No identified barriers to accessing necessary care and/or follow-up after discharge. Plan: Patient to d/c to home via private vehicle with a friend when medically ready. Referral sent to RS for AD discussion today. Registered Nurse [employer] Assistant will continue to follow patient???s progress and remain available if situation changes for coordination of care, psychosocial support and/or discharge planning. Office of Care Management Cyndy Suárez, RN * Consult Note - Marina Salvador RN - 03/21/2024 11:53 AM EDT Isa Ro was seen today by Cardiac Rehabilitation for: STEMI, PCI to mid LAD Activity evaluation - Deferred. Patient feeling tired, muscle weakness, pain in left leg. She said she felt amazing yesterday and walked around the unit. Educational packet regarding CAD, cardiac risk factors, and managing angina given to the patient. Heart diagram reviewed. Isa has a history of prior PCI in 2013. She participated in cardiac rehab at that time. She is very active at baseline. 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 Given parameters for home exercise. Reviewed managing angina /use of sl nitroglycerin. Participation in an outpatient cardiac rehabilitation program at [facility] was discussed. Patient agrees to a referral to this program. The referral will be sent at discharge and the patient should be contacted by the Program within 1-2 weeks from discharge. * Plan of Care - Javon Sykes RN - 03/20/2024 7:52 PM EDT Problem: Fall Injury Risk Goal: Absence of Fall and Fall-Related Injury Outcome: Ongoing (Interventions Implemented as Appropriate) Problem: Embolism (Cardiac Catheterization) Goal: Absence of Embolism Signs and Symptoms Outcome: Ongoing (Interventions Implemented as Appropriate) Problem: Pain (Cardiac Catheterization) Goal: Acceptable Pain Control Outcome: Ongoing (Interventions Implemented as Appropriate) Problem: Adult Inpatient Plan of Care Goal: Plan of Care Review Outcome: Ongoing (Interventions Implemented as Appropriate) Goal: Patient-Specific Goal (Individualized) Outcome: Ongoing (Interventions Implemented as Appropriate) Goal: Absence of Hospital-Acquired Illness or Injury Outcome: Ongoing (Interventions Implemented as Appropriate) Goal: Optimal Comfort and Wellbeing Outcome: Ongoing (Interventions Implemented as Appropriate) Goal: Readiness for Transition of Care Outcome: Ongoing (Interventions Implemented as Appropriate) * Plan of Care - Javon Sykes RN - 03/19/2024 11:09 PM EDT Problem: Fall Injury Risk Goal: Absence of Fall and Fall-Related Injury Outcome: Ongoing (Interventions Implemented as Appropriate) Problem: Embolism (Cardiac Catheterization) Goal: Absence of Embolism Signs and Symptoms Outcome: Ongoing (Interventions Implemented as Appropriate) Problem: Pain (Cardiac Catheterization) Goal: Acceptable Pain Control Outcome: Ongoing (Interventions Implemented as Appropriate) Problem: Adult Inpatient Plan of Care Goal: Plan of Care Review Outcome: Ongoing (Interventions Implemented as Appropriate) Goal: Patient-Specific Goal (Individualized) Outcome: Ongoing (Interventions Implemented as Appropriate) Goal: Absence of Hospital-Acquired Illness or Injury Outcome: Ongoing (Interventions Implemented as Appropriate) Goal: Optimal Comfort and Wellbeing Outcome: Ongoing (Interventions Implemented as Appropriate) Goal: Readiness for Transition of Care Outcome: Ongoing (Interventions Implemented as Appropriate) * Brief Op Note - Ramo Roy MD - 03/19/2024 1:39 AM EDT Brief Operative Note Patient Name: Isa Ro : [id number] MR#: [id number] Case Date: 03/19/2024 Surgeon: Surgeons and Role: * Ramo Roy MD - Primary * John Munroe MD - Fellow - Assisting Preoperative diagnosis: stemi Postoperative diagnosis: stemi Procedure(s) (LRB): CARDIAC CATHETERIZATION (N/A) Anesthesia: Anesthesia type not filed in the log. Minimal sedation Findings: stemi Complications: none Estimated Blood Loss: * No values recorded between 03/19/2024 12:45 AM and 03/19/2024 1:36 AM * Specimens removed during surgery: None Fluids: Intraprocedure Crystalloid Total None PRBCs: none (See Anesthesia Record/Report for Other Blood Products) Urine Output: (no urine output recorded) Drains: none Disposition: aroused from sedation, and taken to the recovery room in a stable condition Condition: doing well without problems, normal activities (Please see the Surgical Encounter Summary for any Implant and Specimen details pertinent to this patient.) Surgical Infection Prevention Bundle Used? No documented in this encounter Plan of Treatment Upcoming Encounters Date Type Department Care Team (Late st Contact Info) Description 05/09/2024 10:40 AM EDT Office Visit Cardiology at [address] [id number] Herlinda Weaver PA [facility] [place] [address] Scheduled Referrals Name Type Priority Associated Diagnoses Order Schedule Referral to Cardiac Rehab Outpatient Referral Routine ST elevation myocardial infarction involving left anterior descending (LAD) coronary artery Ordered: 03/22/2024 Referral to Cardiology Outpatient Referral Routine ST elevation myocardial infarction involving left anterior descending (LAD) coronary artery Ordered: 03/22/2024 documented as of this encounter Procedures Procedure Name Priority Date/Time Associated Diagnosis Comments HEMOGRAM Routine 03/22/2024 5:06 AM EDT DIFFERENTIAL, AUTOMATED Routine 03/22/20 5:06 AM EDT HC CBC,PLT & AUTO DIFF Routine 5:06 AM EDT HC VENIPUNCTURE Routine 03/22/2024 5:06 AM EDT BASIC METABOLIC PANEL (NON-FASTING) Routine 03/22/2024 5:06 AM EDT HEMOGRAM Routine 03/21/2024 2:57 AM EDT DIFFERENTIAL, AUTOMATED Routine 03/21/20 2:57 AM EDT HC VENIPUNCTURE Routine 03/21/2024 2:57 AM EDT HC CBC,PLT & AUTO DIFF Routine 4 2:57 AM EDT HC MAGNESIUM, SERUM Routine 03/21/2024 2 :57 AM EDT BASIC METABOLIC PANEL (NON-FASTING) Routine 03/21/2024 2:57 AM EDT HEMOGRAM Routine 03/20/2024 10:38 AM EDT DIFFERENTIAL, AUTOMATED Routine 03/20/20 10:38 AM EDT IRON AND TIBC Routine 03/20/2024 10:38 AM EDT HC CBC,PLT & AUTO DIFF Routine 10:38 AM EDT HC MAGNESIUM, SERUM Routine 03/20/2024 1 0:38 AM EDT BASIC METABOLIC PANEL (NON-FASTING) Routine 03/20/2024 10:38 AM EDT HC VENIPUNCTURE STAT 03/19/2024 11:01 PM EDT MAGNESIUM STAT 03/19/2024 11:01 PM EDT HC VENIPUNCTURE STAT 03/19/2024 8:40 PM EDT EKG 12-LEAD STAT 03/19/2024 8:32 PM EDT Chest pain, unspecified type EKG 12-LEAD Routine 03/19/2024 5:27 PM EDT HC TROPONIN T STAT 03/19/2024 2:45 PM EDT ECHO COMPLETE W CONTRAST Routine 03/19/2024 10:[address] elevation myocardial infarction involving left anterior descending (LAD) coronary artery XR CHEST ONE VIEW Routine 03/19/2024 8:3 7 AM EDT HC TROPONIN T STAT 03/19/2024 5:25 AM EDT HEMOGRAM Routine 03/19/2024 5:25 AM EDT DIFFERENTIAL, AUTOMATED Routine 03/19/20 5:25 AM EDT HC PARTIAL THROMBOPLASTIN TIME Routine 03/19/2024 5:25 AM EDT HC PROTHROMBIN TIME Routine 03/19/2024 5 :25 AM EDT HC CBC,PLT & AUTO DIFF Routine 5:25 AM EDT HEMOGLOBIN A1C Routine 03/19/2024 5:25 AM EDT LIPID PANEL (REFLEX DIRECT LDL) Routine 03/19/2024 5:25 AM EDT COMPREHENSIVE METABOLIC PANEL (NON-FASTING) Routine 03/19/2024 5:25 AM EDT EKG 12-LEAD STAT 03/19/2024 2:[address] elevation myocardial infarction involving left anterior descending (LAD) coronary artery HC TROPONIN T STAT 03/19/2024 2:20 AM EDT HEMOGRAM Routine 03/19/2024 2:20 AM EDT DIFFERENTIAL, AUTOMATED Routine 03/19/20 2:20 AM EDT HC PARTIAL THROMBOPLASTIN TIME Routine 03/19/2024 2:20 AM EDT HC PROTHROMBIN TIME Routine 03/19/2024 2 :20 AM EDT HC CBC,PLT & AUTO DIFF Routine 2:20 AM EDT HC PHOSPHORUS, SERUM Routine 03/19/2024 2:20 AM EDT HC PROBNP Routine 03/19/2024 2:20 AM EDT HC MAGNESIUM, SERUM Routine 03/19/2024 2 :20 AM EDT HEPATIC FUNCTION PANEL Routine 2:20 AM EDT BASIC METABOLIC PANEL (NON-FASTING) Routine 03/19/2024 2:20 AM EDT POINT OF CARE BLOOD GAS HISTORICAL Routine 03/19/2024 1:41 AM EDT CARDIAC CATHETERIZATION Routine 03/19/20 1:36 AM EDT POINT OF CARE BLOOD GAS HISTORICAL Routine 03/19/2024 1:26 AM EDT documented in this encounter Results * (ABNORMAL) Differential, Automated (03/22/2024 5:06 AM EDT) Neutrophils % 71.6 % [facility] Neutr Abs (ANC) 8.34(H) 1.70 - 6.10 x10(3)/[facility] Lymphocytes % 17.4 % [facility] Lymphocytes Abs 2.0 0.9 - 3.2 x10(3)/[facility] Monocytes % 8.2 % [facility] Monocyte Abs 1.0(H) 0.3 - 0.9 x10(3)/[facility] LAB[facility]ORY Eosinophils % 2.2 % [facility] Eosinophils Abs 0.3 0.0 - 0.4 x10(3)/[facility] Basophils % 0.3 % [facility] Basophils Abs 0.0 0.0 - 0.1 x10(3)/[facility] LABORATORY Immature Gran % 0.30 % [facility] Comment: Immature granulocytes(IG's)percentage and absolute count will include metamyelocytes, myelocytes, and promyelocytes. Blood smears from CBCs yielding IG's will be scanned manually for concordance. If this scan disagrees with the automated IG or if promyelocytes are noted, a manual differential will be performed. Lesia Gran Abs 0.03 0.00 - 0.04 x10(3)/[facility] LABOR[facility]ORY Blood 03/22/2024 5:06 AM EDT 03/22/2024 5:12 AM EDT Narrative Resulting Agency Comment Spec In Lab Horace Hancock MD HEMATOLOGY ORDERABLE S [facility] [place] [address] * (ABNORMAL) Hemogram (03/22/2024 5:06 AM EDT) Pathologist [facility] WBC 11.6(H) 4.0 - 9.5 x10(3)/[facility] LABORATORY RBC 4.80 4.00 - 5.21 x10(6)/[facility] LABORATORY Hemoglobin 13.5 11.7 - 15.5 g/dL [facility] Hematocrit 40.3 35.7 - 45.8 % [facility] MCV 84.0 82.6 - 94.4 [facility] MCH 28.1 27.1 - 32.0 pg [facility] MCHC 33.5 31.7 - 35.0 g/dL [facility] Platelets 232 145 - 357 x10(3)/[facility] LABORATORY RDWSD 42.2 37.0 - 46.0 [facility] RDWCV 13.5 11.5 - 14.1 % [facility] MPV 9.7 7.6 - 12.9 [facility] nRBC % Auto 0.0 % [facility] nRBC Abs Auto 0.000 0.000 - 0.000 x10(3)/[facility] LABOR[facility]ORY Blood 03/22/2024 5:06 AM EDT 03/22/2024 5:12 AM EDT Narrative Resulting Agency Comment Spec In Lab Horace Hancock MD HEMATOLOGY ORDERABLE S [facility] [place] [address] * Basic Metabolic Panel (non-fasting) (03/22/2024 5:06 AM EDT) Pathologist [facility] Glucose Lvl 107 65 - 199 mg/dL [facility] Comment:Diabetes: >=200 mg/d L plus symptoms BUN 18 8 - 18 mg/dL [facility] Creatinine 0.87 0.70 - 1.20 mg/dL [facility] Sodium 138 135 - 145 mmol/L [facility] Potassium 4.1 3.5 - 5.0 mmol/L [facility] Comment: Please note: ??Patients with WBC >100,000 may have falsely elevated Potassium levels. ??For accurate Potassium quantification in these patients send serum separator tube (gold top) for subsequent determinations. ??Contact the Clinical Chemistry Laboratory if there are any questions. Chloride 104 98 - 107 mmol/L [facility] CO2 24 22 - 31 mmol/L [facility] Anion Gap 10 5 - 15 mmol/L [facility] Calcium 9.2 8.5 - 10.5 mg/dL [facility] Estimated GFR 76 >=60 mL/min/1. 73 m?? [facility] Comment: This patient's estimated GFR was calculated using the 2020 CKD-EPI equation. The estimated GFR can vary from the measured GFR by up to 30% in the absence of rapidly changing kidney function. Assessment of the estimated GFR is not appropriate when creatinine concentrations are rapidly changing. For clinical situations in which a more precise estimate of GFR is necessary, consider alternative methods of GFR estimation such as a 24-hour urine creatinine clearance. Assignment of CKD stage 1-5 for patients with an eGFR near the transition point between stages may be based on clinical assessment of muscle mass and symptoms in addition to eGFR. Blood 03/22/2024 5:06 AM EDT 03/22/2024 5:12 AM EDT Narrative Resulting Agency Comment Spec In Lab Horace Hancock MD CHEMISTRY ORDERABLES [facility] [place] [address] * Magnesium (03/22/2024 5:06 AM EDT) Magnesium 0.90 0.69 - 1.07 mmol/L [facility] Blood 03/22/2024 5:06 AM EDT 03/22/2024 5:12 AM EDT Narrative Resulting Agency Comment Spec In Lab Destin Ambrosio MD CHEMISTRY ORDERABLES [facility] [place] [address] * (ABNORMAL) Differential, Automated (03/21/2024 2:57 AM EDT) Neutrophils % 63.0 % [facility] Neutr Abs (ANC) 6.70(H) 1.70 - 6.10 x10(3)/[facility] LAB[facility]ORY Lymphocytes % 24.9 % [facility] Lymphocytes Abs 2.6 0.9 - 3.2 x10(3)/[facility] LABORATORY Monocytes % 8.7 % [facility] Monocyte Abs 0.9 0.3 - 0.9 x10(3)/[facility] LAB[facility]ORY Eosinophils % 2.8 % [facility] Eosinophils Abs 0.3 0.0 - 0.4 x10(3)/[facility] LAB[facility] Basophils % 0.3 % [facility] Basophils Abs 0.0 0.0 - 0.1 x10(3)/[facility] LAB[facility]ORY Immature Gran % 0.30 % [facility] Comment: Immature granulocytes(IG's)percentage and absolute count will include metamyelocytes, myelocytes, and promyelocytes. Blood smears from CBCs yielding IG's will be scanned manually for concordance. If this scan disagrees with the automated IG or if promyelocytes are noted, a manual differential will be performed. Lesia Gran Abs 0.03 0.00 - 0.04 x10(3)/[facility] LAB[facility] Blood 03/21/2024 2:57 AM EDT 03/21/2024 3:03 AM EDT Narrative Resulting Agency Comment Spec In Lab Horace Hancock MD HEMATOLOGY ORDERABLE S [facility] [place] [address] * (ABNORMAL) Hemogram (03/21/2024 2:57 AM EDT) WBC 10.6(H) 4.0 - 9.5 x10(3)/[facility] LABORATORY RBC 4.54 4.00 - 5.21 x10(6)/[facility] Hemoglobin 12.8 11.7 - 15.5 g/dL [facility] Hematocrit 38.2 35.7 - 45.8 % [facility] MCV 84.1 82.6 - 94.4 fL [facility] MCH 28.2 27.1 - 32.0 pg [facility] MCHC 33.5 31.7 - 35.0 g/dL [facility] Platelets 242 145 - 357 x10(3)/[facility] LABORATORY RDWSD 42.4 37.0 - 46.0 [facility] RDWCV 13.7 11.5 - 14.1 % [facility] MPV 9.5 7.6 - 12.9 [facility] LABORATORY nRBC % Auto 0.0 % [facility] nRBC Abs Auto 0.000 0.000 - 0.000 x10(3)/[facility] Blood 03/21/2024 2:57 AM EDT 03/21/2024 3:03 AM EDT Narrative Resulting Agency Comment Spec In Lab Horace Hancock MD HEMATOLOGY ORDERABLE S [facility] [place] [address] * Basic Metabolic Panel (non-fasting) (03/21/2024 2:57 AM EDT) Glucose Lvl 98 65 - 199 mg/dL [facility] Comment:Diabetes: >=200 mg/d L plus symptoms BUN 15 8 - 18 mg/dL [facility] Creatinine 0.82 0.70 - 1.20 mg/dL [facility] Sodium 144 135 - 145 mmol/L [facility] Potassium 4.2 3.5 - 5.0 mmol/L [facility] Comment: Please note: ??Patients with WBC >100,000 may have falsely elevated Potassium levels. ??For accurate Potassium quantification in these patients send serum separator tube (gold top) for subsequent determinations. ??Contact the Clinical Chemistry Laboratory if there are any questions. Chloride 107 98 - 107 mmol/L [facility] CO2 25 22 - 31 mmol/L [facility] Anion Gap 12 5 - 15 mmol/L [facility] Calcium 9.2 8.5 - 10.5 mg/dL [facility] Estimated GFR 82 >=60 mL/min/1. 73 m?? [facility] Comment: This patient's estimated GFR was calculated using the 2020 CKD-EPI equation. The estimated GFR can vary from the measured GFR by up to 30% in the absence of rapidly changing kidney function. Assessment of the estimated GFR is not appropriate when creatinine concentrations are rapidly changing. For clinical situations in which a more precise estimate of GFR is necessary, consider alternative methods of GFR estimation such as a 24-hour urine creatinine clearance. Assignment of CKD stage 1-5 for patients with an eGFR near the transition point between stages may be based on clinical assessment of muscle mass and symptoms in addition to eGFR. Blood 03/21/2024 2:57 AM EDT 03/21/2024 3:03 AM EDT Narrative Resulting Agency Comment Spec In Lab Horace Hancock MD CHEMISTRY ORDERABLES [facility] [place] [address] * Magnesium (03/21/2024 2:57 AM EDT) Magnesium 0.91 0.69 - 1.07 mmol/L [facility] Blood 03/21/2024 2:57 AM EDT 03/21/2024 3:03 AM EDT Narrative Resulting Agency Comment Spec In Lab Destin Ambrosio MD CHEMISTRY ORDERABLES Performing Organization Address [facility] de Phone Number [facility] [place] [address] * Metanephrines, Fractionated Free, plasma (03/21/2024 2:57 AM EDT) Pathologist [facility] Normetane Free 0.47 <0.90 nmol/L [facility] Comment: Test Performed by: [facility] [place] [address] Waxing Machine Operator Helper: Chasity Hernandez Ph.D.; CLIA# [id number] Metanephr Free <0.20 <0.50 nmol/L [facility] Comment: ADDITIONAL INFORMATION This test was developed and its performance characteristics determined by [facility] in a manner consistent with CLIA requirements. This test has not been cleared or approved by the U.S. Food and Drug Administration. Test Performed by: [facility] [place] [address] Waxing Machine Operator Helper: Chasity Hernandez Ph.D.; CLIA# [id number] Blood 03/21/2024 2:57 AM EDT 03/21/2024 11:29 AM EDT Narrative Resulting Agency Comment Spec In Lab Horace Hancock MD CHEMISTRY ORDERABLES Performing Organization Address [facility] Co de Phone Number [facility] [place] [address] * Iron and TIBC (03/20/2024 10:38 AM EDT) Iron 57 30 - 150 mcg/dL [facility] TIBC 278 250 - 450 mcg/dL [facility] Iron Saturation 21 20 - 50 % [facility] Blood Venous Draw / Unknown 03/20/2024 10:38 AM EDT 03/20/2024 10:52 AM EDT Narrative Resulting Agency Comment Spec In Lab Horace Hancock MD CHEMISTRY ORDERABLES [facility] [place] [address] * (ABNORMAL) Differential, Automated (03/20/2024 10:38 AM EDT) Neutrophils % 73.1 % [facility] Neutr Abs (ANC) 9.60(H) 1.70 - 6.10 x10(3)/[facility] LAB[facility] Lymphocytes % 17.3 % [facility] Lymphocytes Abs 2.3 0.9 - 3.2 x10(3)/[facility] LAB[facility]ORY Monocytes % 7.5 % [facility] Monocyte Abs 1.0(H) 0.3 - 0.9 x10(3)/[facility] LAB[facility]ORY Eosinophils % 1.5 % [facility] Eosinophils Abs 0.2 0.0 - 0.4 x10(3)/[facility] LAB[facility] Basophils % 0.3 % [facility] Basophils Abs 0.0 0.0 - 0.1 x10(3)/[facility] LABORATORY Immature Gran % 0.30 % [facility] Comment: Immature granulocytes(IG's)percentage and absolute count will include metamyelocytes, myelocytes, and promyelocytes. Blood smears from CBCs yielding IG's will be scanned manually for concordance. If this scan disagrees with the automated IG or if promyelocytes are noted, a manual differential will be performed. Lesia Gran Abs 0.04 0.00 - 0.04 x10(3)/[facility] LAB[facility]ORY Blood 03/20/2024 10:3 8 AM EDT 03/20/2024 10:47 AM EDT Narrative Resulting Agency Comment Spec In Lab Horace Hancock MD HEMATOLOGY ORDERABLE S [facility] [place] [address] * (ABNORMAL) Hemogram (03/20/2024 10:38 AM EDT) WBC 13.2(H) 4.0 - 9.5 x10(3)/[facility] LABORATORY RBC 4.66 4.00 - 5.21 x10(6)/[facility] Hemoglobin 13.0 11.7 - 15.5 g/dL [facility] Hematocrit 38.7 35.7 - 45.8 % [facility] MCV 83.0 82.6 - 94.4 [facility] LABORATORY MCH 27.9 27.1 - 32.0 pg [facility] MCHC 33.6 31.7 - 35.0 g/dL [facility] Platelets 238 145 - 357 x10(3)/[facility] LABORATORY RDWSD 41.7 37.0 - 46.0 [facility] LABORATORY RDWCV 13.8 11.5 - 14.1 % [facility] MPV 9.8 7.6 - 12.9 [facility] LABORATORY nRBC % Auto 0.0 % [facility] nRBC Abs Auto 0.000 0.000 - 0.000 x10(3)/[facility] LABORATORY Blood 03/20/2024 10:3 8 AM EDT 03/20/2024 10:47 AM EDT Narrative Resulting Agency Comment Spec In Lab Horace Hancock MD HEMATOLOGY ORDERABLE S [facility] [place] [address] * Magnesium (03/20/2024 10:38 AM EDT) Pathologist [facility] Magnesium 0.88 0.69 - 1.07 mmol/L [facility] Blood 03/20/2024 10:3 8 AM EDT 03/20/2024 10:47 AM EDT Narrative Resulting Agency Comment Spec In Lab Horace Hancock MD CHEMISTRY ORDERABLES [facility] [place] [address] * Basic Metabolic Panel (non-fasting) (03/20/2024 10:38 AM EDT) Glucose Lvl 108 65 - 199 mg/dL [facility] Comment:Diabetes: >=200 mg/d L plus symptoms BUN 11 8 - 18 mg/dL [facility] Creatinine 0.82 0.70 - 1.20 mg/dL [facility] Sodium 137 135 - 145 mmol/L [facility] Potassium 4.3 3.5 - 5.0 mmol/L [facility] Comment: Please note: ??Patients with WBC >100,000 may have falsely elevated Potassium levels. ??For accurate Potassium quantification in these patients send serum separator tube (gold top) for subsequent determinations. ??Contact the Clinical Chemistry Laboratory if there are any questions. Chloride 101 98 - 107 mmol/L [facility] CO2 22 22 - 31 mmol/L [facility] Anion Gap 14 5 - 15 mmol/L [facility] Calcium 9.0 8.5 - 10.5 mg/dL [facility] Estimated GFR 82 >=60 mL/min/1. 73 m?? [facility] Comment: This patient's estimated GFR was calculated using the 2020 CKD-EPI equation. The estimated GFR can vary from the measured GFR by up to 30% in the absence of rapidly changing kidney function. Assessment of the estimated GFR is not appropriate when creatinine concentrations are rapidly changing. For clinical situations in which a more precise estimate of GFR is necessary, consider alternative methods of GFR estimation such as a 24-hour urine creatinine clearance. Assignment of CKD stage 1-5 for patients with an eGFR near the transition point between stages may be based on clinical assessment of muscle mass and symptoms in addition to eGFR. Blood 03/20/2024 10:3 8 AM EDT 03/20/2024 10:47 AM EDT Narrative Resulting Agency Comment Spec In Lab Horace Hancock MD CHEMISTRY ORDERABLES Performing Organization Address City/[facility]/ZIP Co de Phone Number [facility] [place] [address] * Magnesium (03/19/2024 11:01 PM EDT) Magnesium 0.96 0.69 - 1.07 mmol/L [facility] Blood Venous Draw / Unknown 03/19/2024 11:01 PM EDT 03/19/2024 11:06 PM EDT Narrative Resulting Agency Comment Spec In Lab Horace Hancock MD CHEMISTRY ORDERABLES Performing Organization Address [facility]/ZIP Co de Phone Number [facility] [place] [address] * (ABNORMAL) Troponin (03/19/2024 11:01 PM EDT) Troponin-T HS 2,406(H) <=14 ng/L [facility] Comment: This patient's troponin T concentration was determined using the Lynda 5th Generation troponin T assay. The 99th percentile for Troponin T for this test is 14 ng/L for females, and 22 ng/L for males. According to the fourth universal definition of myocardial infarction, the term acute myocardial infarction should be used when there is acute myocardial injury with clinical evidence of acute myocardial ischemia and with detection of a rise and/or fall of cardiac troponin values with at least one value above the 99th percentile and at least one of the following: - Symptoms of myocardial ischemia; - New ischemic ECG changes; - Development of pathological Q waves; - Imaging evidence of new loss of viable myocardium or new regional wall motion abnormality in a pattern consistent with an ischemic etiology; - Identification of a coronary thrombus by angiography or autopsy (not for type 2 or 3 MIs) Serial measurement of troponin and the change in troponin concentration over time (delta) is crucial for the diagnosis of acute myocardial infarction. Guidance on the interpretation of the new 5th Generation Troponin T values and the delta troponin value can be found in the [facility] Laboratory Test Catalog Troponin - [facility] Laboratory Test Catalog Reference: Fourth Grundy Definition of Myocardial Infarction. Journal of the [place] [employer] 2018;72:0006-9715 Blood 03/19/2024 11:0 1 PM EDT 03/19/2024 11:05 PM EDT Narrative Resulting Agency Comment Spec In Lab Franky Mead MD CHEMISTRY ORDERABLE S [facility] [place] [address] * (ABNORMAL) Troponin (03/19/2024 8:40 PM EDT) Troponin-T HS 2,586(H) <=14 ng/L [facility] Comment: This patient's troponin T concentration was determined using the Lynda 5th Generation troponin T assay. The 99th percentile for Troponin T for this test is 14 ng/L for females, and 22 ng/L for males. According to the fourth universal definition of myocardial infarction, the term acute myocardial infarction should be used when there is acute myocardial injury with clinical evidence of acute myocardial ischemia and with detection of a rise and/or fall of cardiac troponin values with at least one value above the 99th percentile and at least one of the following: - Symptoms of myocardial ischemia; - New ischemic ECG changes; - Development of pathological Q waves; - Imaging evidence of new loss of viable myocardium or new regional wall motion abnormality in a pattern consistent with an ischemic etiology; - Identification of a coronary thrombus by angiography or autopsy (not for type 2 or 3 MIs) Serial measurement of troponin and the change in troponin concentration over time (delta) is crucial for the diagnosis of acute myocardial infarction. Guidance on the interpretation of the new 5th Generation Troponin T values and the delta troponin value can be found in the [facility] Laboratory Test Catalog Troponin - [facility] Laboratory Test Catalog Reference: Fourth Grundy Definition of Myocardial Infarction. Journal of the [place] [employer] 2018;72:8487-6365 Blood 03/19/2024 8:40 PM EDT 03/19/2024 8:45 PM EDT Narrative Resulting Agency Comment Spec In Lab Ganesh Nguyen MD CHEMISTRY ORDERAB LES [facility] [place] [address] * EKG 12 Lead (03/19/2024 8:32 PM EDT) Ventricular rate 70 BPM MUSE SYSTEM Atrial Rate 70 BPM MUSE SYSTEM P-R Interval 158 ms MUSE SYSTEM QRS Duration 78 ms MUSE SYSTEM Q-T Interval 470 ms MUSE SYSTEM QTC Calculated (Bezet) 507 ms MUSE SYSTEM Calculated P [place] 62 degrees MUSE SYSTEM Calculated R [place] 42 degrees MUSE SYSTEM Calculated T [place] -158 degrees MUSE SYSTEM INTERPRETATION Normal sinus rhythm Poor R wave progression T wave abnormality, consider lateral ischemia Prolonged QT Abnormal ECG When compared with ECG of 19-MAR-2024 17:27, No significant change was found Confirmed by MD Ambrosio David ([id number]) on 03/23/2024 8:10:58 AM MUSE SYSTEM 03/19/2024 8:32 PM EDT 03/23/2024 8:10 AM EDT Franky Mead MD ECG ORDERABLES Performing Organization Address City/[facility]/ZIP Co de Phone Number MUSE SYSTEM * EKG 12 Lead (03/19/2024 5:27 PM EDT) Ventricular rate 70 BPM MUSE SYSTEM Atrial Rate 70 BPM MUSE SYSTEM P-R Interval 154 ms MUSE SYSTEM QRS Duration 80 ms MUSE SYSTEM Q-T Interval 460 ms MUSE SYSTEM QTC Calculated (Bezet) 496 ms MUSE SYSTEM Calculated P [place] 80 degrees MUSE SYSTEM Calculated R [place] 87 degrees MUSE SYSTEM Calculated T [place] -96 degrees MUSE SYSTEM INTERPRETATION Normal sinus rhythm T wave abnormality, consider lateral ischemia Prolonged QT Abnormal ECG When compared with ECG of 19-MAR-2024 02:23, Non-specific change in ST segment in Anterior leads T wave inversion more evident in Inferior leads T wave inversion now evident in Anterolateral leads Confirmed by MD Ambrosio David ([id number]) on 03/23/2024 8:10:45 AM MUSE SYSTEM 03/19/2024 5:27 PM EDT 03/23/2024 8:10 AM EDT Unknown ECG ORDERABLES MUSE SYSTEM * (ABNORMAL) Troponin (03/19/2024 2:45 PM EDT) Troponin-T HS 3,792(H) <=14 ng/L [facility] Comment: This patient's troponin T concentration was determined using the Lynda 5th Generation troponin T assay. The 99th percentile for Troponin T for this test is 14 ng/L for females, and 22 ng/L for males. According to the fourth universal definition of myocardial infarction, the term acute myocardial infarction should be used when there is acute myocardial injury with clinical evidence of acute myocardial ischemia and with detection of a rise and/or fall of cardiac troponin values with at least one value above the 99th percentile and at least one of the following: - Symptoms of myocardial ischemia; - New ischemic ECG changes; - Development of pathological Q waves; - Imaging evidence of new loss of viable myocardium or new regional wall motion abnormality in a pattern consistent with an ischemic etiology; - Identification of a coronary thrombus by angiography or autopsy (not for type 2 or 3 MIs) Serial measurement of troponin and the change in troponin concentration over time (delta) is crucial for the diagnosis of acute myocardial infarction. Guidance on the interpretation of the new 5th Generation Troponin T values and the delta troponin value can be found in the [facility] Laboratory Test Catalog Troponin - [facility] Laboratory Test Catalog Reference: Fourth Grundy Definition of Myocardial Infarction. Journal of the [place] [employer] 2018;72:[id number] Blood 03/19/2024 2:45 PM EDT 03/19/2024 2:54 PM EDT Narrative Resulting Agency Comment Spec In Lab Horace Hancock MD CHEMISTRY ORDERABLES Performing Organization Address City/[facility]/ZIP Co de Phone Number [facility] [place] [address] * ECHO COMPLETE W CONTRAST (03/19/2024 10:53 AM EDT) Anatomical Region Laterality Modality Cardiac Other 03/19/2024 9:03 AM EDT Narrative 03/19/2024 12:12 PM EDT [address] [place] [address] ? Echocardiogram Report Name: ISA RO ?Study Date: 03/19/2024 09:03 AMBP: 129/68 mmHg ? Patient Location: : 1965 ? Height: 158 cm ? Account: [id number] Age: 59 yrs ? Weight: 57 kg Gender: Female ?BSA: 1.6 m2 Ordering Physician: GANESH NGUYEN Referring Physician: GANESH NGUYEN Performed By: PEREZ Carlos Reason For Study: STEMI involving LAD Exam Location: [facility]. Interpretation Summary Normal left ventricle size with mildly reduced LV function. LV ejection fraction 49%. LAD territory wall motion abnormality, predominantly involving the LV apex. No LV thrombus visualized with echo contrast. Normal right ventricle. No significant valvular abnormalities. Compared with prior echo dated 08/28/23, LV function has now decreased and new wall motion abnormalities. Procedure Complete-[id number]. Image enhancement Definity was used for left ventricular opacification. Suboptimal quality. There is normal sinus rhythm. Left Ventricle Left ventricle is of normal size. Wall thickness is normal. There is no ventricular septal defect. Left ventricular systolic function is mildly reduced. The left ventricular ejection fraction is 49% by Davis's biplane. There are segmental wall motion abnormalities. There is an accessory muscular band that originates in the LV apex; no thrombus visualized with echocontrast. Right Ventricle The right ventricle is of normal size. Right ventricular systolic function is normal. Left Atrium The left atrium is mildly dilated. There is no evidence for a patent foramen ovale. Right Atrium The right atrium is normal. Aortic Valve The aortic valve is tricuspid. There is no aortic stenosis. There is no aortic regurgitation. Mitral Valve The mitral valve is structurally normal. There is no mitral stenosis. There is mild mitral regurgitation. Tricuspid Valve The tricuspid valve is structurally normal. There is no tricuspid stenosis. There is trace tricuspid regurgitation. Pulmonic Valve The pulmonic valve appears to be structurally normal. There is no valvular pulmonic stenosis. There is mild pulmonic valve regurgitation. Great Arteries The diameter at the level of the sinuses of Valsalva is 2.8 cm. The maximum diameter of the proximal ascending aorta is 2.7 cm. No abnormalities of the pulmonary artery are identified. Venous Inferior vena cava is normal in size. Inferior vena cava collapse greater than 50% with respiration. Pericardium/Pleural There is no pericardial effusion. Hemodynamics The peak right ventricular systolic pressure is 26.7 mmHg . The estimated right atrial pressure is 3mmHg. There is Grade I LV diastolic dysfunction (abnormal relaxation with normal left ventricular filling pressure). Ejection Fraction ?2D Measurements ? Volumes EF(MOD-bp): 49.0 % ?IVSd: 1.1 cm ? LAV(MOD- bp) Indexed: ?LVIDd: 3.7 cm ?LVPWd: 0.87 cm ? 36.1 ml/m2 ?RWT: 0.47 {ratio} ?RA A4Cs_phl: 12.4 cm2 ? EDV(MOD-bp) Indexed: ?LV mass(C)d: 115.0 grams ?LV mass(C)dI: 73.1 grams/m2 ?61.2 ml/m2 ?Ao root diam: 2.8 cm ? ESV(MOD-bp) Indexed: ?Ao root diam index: 1.8 ?31.2 ml/m2 ?asc Aorta Diam: 2.7 cm ? SV(LVOT): 42.7 ml ?LVOT diam: 1.7 cm ?TAPSE_phl: 2.0 cm ?SI(LVOT): 27.1 ml/m2 Doppler LV V1 VTI: 18.9 cm MV E max walt: 100.0 cm/sec MV A max walt: 67.1 cm/sec MV E/A: 1.5 MV dec time: 0.16 sec Lat Peak E' Walt: 8.5 cm/sec E/e' (lat): 11.7 Med Peak E' Walt: 7.4 cm/sec E/e' (med): 13.6 E/e' Average: 12.7 TR max walt: 243.6 cm/sec RVSP(TR): 26.7 mmHg I ?WMSI = 1.63 ? % Normal = 69 ?Segments ??Size X - Cannot ?2 - ?4 - ?1-2 ? small Interpret ?1 - Normal ?? Hypokinetic 3 - Akinetic Dyskinetic ?? 3-5 ? moderate 5 - ? 6-14 ?large Aneurysmal ?15-16 ?? diffuse Procedure Note Destin Ambrosio MD - 03/19/2024 [address] [place] [address] Echocardiogram Report Name: ISA RO Study Date: 409:03 AMBP: 129/68 mmHg Patient Location: : 1965 Height: 158 cm Account: [id number] Age: 59 yrs Weight: 57 kg Gender: Female BSA: 1.6 m2 Ordering Physician: GANESH NGUYEN Referring Physician: GANESH NGUYEN Performed By: PEREZ Carlos Reason For Study: STEMI involving LAD Exam Location: [facility]. Interpretation Summary Normal left ventricle size with mildly reduced LV function. LV ejectionfraction 49%. LAD territory wall motion abnormality, predominantly involving the LVapex. No LV thrombus visualized with echo contrast. Normal right ventricle. No significant valvular abnormalities. Compared with prior echo dated 08/28/23, LV function has now decreased andnew wall motion abnormalities. Procedure Complete-[id number]. Image enhancement Definity was used for left ventricular opacification. Suboptimal quality. There is normal sinus rhythm. Left Ventricle Left ventricle is of normal size. Wall thickness is normal. There is no ventricular septal defect. Left ventricular systolic function is mildlyreduced. The left ventricular ejection fraction is 49% by Davis's biplane. Thereare segmental wall motion abnormalities. There is an accessory muscular bandthat originates in the LV apex; no thrombus visualized with echocontrast. Right Ventricle The right ventricle is of normal size. Right ventricular systolic functionis normal. Left Atrium The left atrium is mildly dilated. There is no evidence for a patentforamen ovale. Right Atrium The right atrium is normal. Aortic Valve The aortic valve is tricuspid. There is no aortic stenosis. There is noaortic regurgitation. Mitral Valve The mitral valve is structurally normal. There is no mitral stenosis.There is mild mitral regurgitation. Tricuspid Valve The tricuspid valve is structurally normal. There is no tricuspidstenosis. There is trace tricuspid regurgitation. Pulmonic Valve The pulmonic valve appears to be structurally normal. There is novalvular pulmonic stenosis. There is mild pulmonic valve regurgitation. Great Arteries The diameter at the level of the sinuses of Valsalva is 2.8 cm. Themaximum diameter of the proximal ascending aorta is 2.7 cm. No abnormalities ofthe pulmonary artery are identified. Venous Inferior vena cava is normal in size. Inferior vena cava collapse greaterthan 50% with respiration. Pericardium/Pleural There is no pericardial effusion. Hemodynamics The peak right ventricular systolic pressure is 26.7 mmHg . The estimatedright atrial pressure is 3mmHg. There is Grade I LV diastolic dysfunction(abnormal relaxation with normal left ventricular filling pressure). Ejection Fraction 2D Measurements Volumes EF(MOD-bp): 49.0 % IVSd: 1.1 cm LAV(MOD-bp)Indexed: LVIDd: 3.7 cm LVPWd: 0.87 cm 36.1 ml/m2 RWT: 0.47 {ratio} RA A4Cs_phl: 12.4cm2 EDV(MOD-bp)Indexed: LV mass(C)d: 115.0 grams LV mass(C)dI: 73.1 grams/m2 61.2 ml/m2 Ao root diam: 2.8 cm ESV(MOD-bp)Indexed: Ao root diam index: 1.8 31.2 ml/m2 asc Aorta Diam: 2.7 cm SV(LVOT): 42.7ml LVOT diam: 1.7 cm TAPSE_phl: 2.0 cm SI(LVOT): 27.1ml/m2 Doppler LV V1 VTI: 18.9 cm MV E max walt: 100.0 cm/sec MV A max walt: 67.1 cm/sec MV E/A: 1.5 MV dec time: 0.16 sec Lat Peak E' Walt: 8.5 cm/sec E/e' (lat): 11.7 Med Peak E' Walt: 7.4 cm/sec E/e' (med): 13.6 E/e' Average: 12.7 TR max walt: 243.6 cm/sec RVSP(TR): 26.7 mmHg I WMSI = 1.63 % Normal = 69 SegmentsSize X - Cannot 2 - 4 - 1-2small Interpret 1 - Normal Hypokinetic 3 - Akinetic Dyskinetic 3-5moderate 5 - 6-14large Aneurysmal 15-16diffuse Ganesh Nguyen MD ECHO ORDERABLES * XR Chest One View (03/19/2024 8:37 AM EDT) WORKSTATION ID [id number] RAD Anatomical Region Laterality Modality Chest N/A Digital Radiogra phy Impressions 03/19/2024 10:09 AM EDT Hazy right lower lobe opacity suggests atelectasis without other acute cardiopulmonary disease detected. Thank you for letting us participate in the care of this patient. ??If you are a health care provider and have any questions regarding this report, please contact the number below. ??For patients who have questions please contact the health respiratory care faculty that requested your imaging first. ? Electronically signed by: Isa Whitley MD, [facility] ??([phone]), at 03/19/2024 10:09 AM Narrative 03/19/2024 10:09 AM EDT EXAMINATION: XR CHEST ONE VIEW CLINICAL HISTORY: STEMI, hypoxia, presumed pulmonary edema TECHNIQUE: 1 view of the chest COMPARISON: None FINDINGS: The cardiomediastinal silhouette is unremarkable. No focal consolidation. Hazy right lower lobe opacity suggests atelectasis. No pleural effusion or pneumothorax. No acute osseous abnormalities are found. Procedure Note Isa Whitley MD - 03/19/2024 EXAMINATION: XR CHEST ONE VIEW CLINICAL HISTORY: STEMI, hypoxia, presumed pulmonary edema TECHNIQUE: 1 view of the chest COMPARISON: None FINDINGS: The cardiomediastinal silhouette is unremarkable. No focal consolidation. Hazy right lower lobe opacity suggestsatelectasis. No pleural effusion or pneumothorax. No acute osseous abnormalities are found. IMPRESSION Hazy right lower lobe opacity suggests atelectasis without other acute cardiopulmonary disease detected. Thank you for letting us participate in the care of this patient. If youare a health care provider and have any questions regarding this report,please contact the number below. For patients who have questions please contactthe health respiratory care faculty that requested your imaging first. Delores Jett MD IMG DX ORDERABLES * Hemoglobin A1c (03/19/2024 5:25 AM EDT) Pathologist [facility] Hemoglobin A1C 5.6 4.3 - 5.6 % [facility] Comment: Reference Range: 4.3 - 5.6% 5.7 - 6.4% - Increased Risk of Developing Diabetes Mellitus >= 6.5% - Consistent with diagnosis of Diabetes Mellitus In the absence of hyperglycemia (i.e. plasma glucose > 200 mg/dL) or classic symptoms of hyperglycemia a repeat measurement of HbA1c should be performed on a separate sample to confirm the diagnosis. Diagnosis and Classification of Diabetes Mellitus, Diabetes Care 2013; 36: Suppl. 1, S67-74 Est Avg Gluc 114 mg/dL [facility] Blood Venous Draw / Unknown 03/19/2024 5:25 AM EDT 03/19/2024 3:52 PM EDT Narrative Resulting Agency Comment Spec In Lab Horace Hancock MD CHEMISTRY ORDERABLES [facility] [place] [address] * (ABNORMAL) Differential, Automated (03/19/2024 5:25 AM EDT) Pathologist [facility] Neutrophils % 90.0 % [facility] Neutr Abs (ANC) 16.73(H) 1.70 - 6.10 x10(3)/mc L [facility] Lymphocytes % 5.2 % [facility] Lymphocytes Abs 1.0 0.9 - 3.2 x10(3)/[facility] Monocytes % 4.2 % [facility] Monocyte Abs 0.8 0.3 - 0.9 x10(3)/[facility] Eosinophils % 0.0 % [facility] Eosinophils Abs 0.0 0.0 - 0.4 x10(3)/[facility] Basophils % 0.2 % [facility] Basophils Abs 0.0 0.0 - 0.1 x10(3)/[facility] Immature Gran % 0.40 % [facility] Comment: Immature granulocytes(IG's)percentage and absolute count will include metamyelocytes, myelocytes, and promyelocytes. Blood smears from CBCs yielding IG's will be scanned manually for concordance. If this scan disagrees with the automated IG or if promyelocytes are noted, a manual differential will be performed. Lesia Gran Abs 0.08(H) 0.00 - 0.04 x10(3)/[facility] Blood 03/19/2024 5:25 AM EDT 03/19/2024 5:34 AM EDT Narrative Resulting Agency Comment Spec In Lab Gaensh Nguyen MD HEMATOLOGY ORDERA BLES Performing Organization Address City/State/[facility] Co de Phone Number [facility] [place] [address] * (ABNORMAL) Hemogram (03/19/2024 5:25 AM EDT) WBC 18.6(H) 4.0 - 9.5 x10(3)/[facility] RBC 4.92 4.00 - 5.21 x10(6)/[facility] Hemoglobin 13.7 11.7 - 15.5 g/dL [facility] Hematocrit 40.6 35.7 - 45.8 % [facility] MCV 82.5(L) 82.6 - 94.4 fL [facility] MCH 27.8 27.1 - 32.0 pg [facility] MCHC 33.7 31.7 - 35.0 g/dL [facility] Platelets 285 145 - 357 x10(3)/[facility]ORY RDWSD 41.1 37.0 - 46.0 [facility] RDWCV 13.6 11.5 - 14.1 % [facility] MPV 9.5 7.6 - 12.9 [facility]ORY nRBC % Auto 0.0 % [facility] nRBC Abs Auto 0.000 0.000 - 0.000 x10(3)/[facility] Blood 03/19/2024 5:25 AM EDT 03/19/2024 5:34 AM EDT Narrative Resulting Agency Comment Spec In Lab Ganesh Nguyen MD HEMATOLOGY ORDERA BLES [facility] [place] [address] * Lipid Panel (Reflex Direct LDL) (03/19/2024 5:25 AM EDT) Chol, Total 324 mg/dL [facility] Comment: Desirable: ? <200 mg/dL Borderline High: 200-239 mg/dL Higher: ?>mf=733 mg/dL Triglycerides 200 mg/dL [facility] Comment: Normal: ?<150 mg/dL Borderline High: 150-199 mg/dL High: ?200-499 mg/dL Very High: ? >my=869 mg/dL HDL 68 mg/dL [facility] Comment: Females: High Risk: <50 mg/dL Males: High Risk: <40 mg/dL LDL Cholesterol 216 mg/dL [facility] Comment: Desirable: ? <100 mg/dL Above Desirable: 100-129 mg/dL Borderline High: 130-159 mg/dL High: ?160-189 mg/dL Very High: ? >tp=977 mg/dL Lipid Interpretation See Note [facility] Comment: It is important to review the results of your lipid panel with your health care provider. You can compare your lipid results to the ranges below and whether they are in the desirable range. These ranges are only meant to be used for people without known cardiac disease, history of stroke, or peripheral vascular disease (blockages in the leg arteries or diabetes). If ??you have one of these conditions, your desirable LDL-C (bad cholesterol) will likely be even lower. ACC/AHA Guidelines (most recently Jw et al. [facility] 06/17/22): For individuals with atherosclerotic cardiovascular disease (ASCVD)or LDL >td=215 mg/dL, use a high-intensity statin (40-80 mg atorvastatin or 20-40 mg rosuvastatin with goal >or=50% LDL reduction) For individuals with diabetes, age 40-75 without ASCVD, moderate-intensity statin (goal 30-49% LDL reduction); consider high intensity statin for those with increased risk. For adults without diabetes or ASCVD, aged 40-75 with LDL 70-189 mg/dL, estimate 10 year ASCVD risk with smartphrase .ASCVDRISK or Dynamed Decisions. If 10 year risk is 7.5%-19.9% (intermediate risk), consider moderate intensity statin based on risk enhancers and patient preference. Consider coronary artery calcium test (CT) if there is concern regarding the benefit of a statin. If ten year risk is >or=20%, initiate high-intensity statin. Evaluate for secondary causes of triglycerides >500 mg/dL or LDL >190 mg/dL. Lifestyle modification is a critical component of ASCVD risk reduction. If not reaching LDL goals on maximally tolerated statin, consider ezetimibe and/or a PCSK9 inhibitor: Target for primary prevention: LDL<100 Target for those with ASCVD or diabetes and 10-year risk >or=20%: LDL<70 Target for those with very high risk ASCVD: LDL<55 (Very high risk being the presence of 2 or more of: recent acute coronary syndrome, past myocardial infarction, ischemic stroke, symptomatic peripheral artery disease) Blood 03/19/2024 5:25 AM EDT 03/19/2024 5:34 AM EDT Narrative Resulting Agency Comment Spec In Lab Ganesh Nguyen MD CHEMISTRY ORDERAB LES Performing Organization Address City/[facility] Co de Phone Number [facility] [place] [address] * (ABNORMAL) Troponin (03/19/2024 5:25 AM EDT) Troponin-T HS 1,276(H) <=14 ng/L [facility] Comment: This patient's troponin T concentration was determined using the Lynda 5th Generation troponin T assay. The 99th percentile for Troponin T for this test is 14 ng/L for females, and 22 ng/L for males. According to the fourth universal definition of myocardial infarction, the term acute myocardial infarction should be used when there is acute myocardial injury with clinical evidence of acute myocardial ischemia and with detection of a rise and/or fall of cardiac troponin values with at least one value above the 99th percentile and at least one of the following: - Symptoms of myocardial ischemia; - New ischemic ECG changes; - Development of pathological Q waves; - Imaging evidence of new loss of viable myocardium or new regional wall motion abnormality in a pattern consistent with an ischemic etiology; - Identification of a coronary thrombus by angiography or autopsy (not for type 2 or 3 MIs) Serial measurement of troponin and the change in troponin concentration over time (delta) is crucial for the diagnosis of acute myocardial infarction. Guidance on the interpretation of the new 5th Generation Troponin T values and the delta troponin value can be found in the [facility] Laboratory Test Catalog Troponin - [facility] Laboratory Test Catalog Reference: Fourth Grundy Definition of Myocardial Infarction. Journal of the [place] [employer] 2018;72:8328-8693 Blood 03/19/2024 5:25 AM EDT 03/19/2024 5:34 AM EDT Narrative Resulting Agency Comment Spec In Lab Ganesh Nguyen MD CHEMISTRY ORDERAB LES Performing Organization Address City/[facility] Co de Phone Number [facility] [place] [address] * APTT (03/19/2024 5:25 AM EDT) Pathologist [facility] PTT 29 25 - 37 sec [facility] Comment: The PTT is NOT appropriate for heparin monitoring. Use the Anti-Xa level for heparin monitoring (HEP UFH) or LMWH monitoring (HEP LMW). A PTT less than 37 seconds generally indicates adequate hemostasis. Blood 03/19/2024 5:25 AM EDT 03/19/2024 5:34 AM EDT Narrative Resulting Agency Comment Spec In Lab Ganesh Nguyen MD HEMATOLOGY ORDERA BLES Performing Organization Address [facility] de Phone Number [facility] [place] [address] * Prothrombin Time (03/19/2024 5:25 AM EDT) Pathologist [facility] PT 10.9 9.4 - 12.5 sec [facility] INR 1.0 [facility] Comment: An INR <2.0 indicates adequate procoagulant activity for hemostasis in most patients without underlying bleeding disorders, though the INR may not adequately reflect hemostatic capacity in patients with liver disease and synthetic impairment. The recommended target INR range for therapeutic anticoagulation is 2.0 ? 3.0 for most applications, though lower and higher ranges may be appropriate depending on clinical circumstances. Blood 03/19/2024 5:25 AM EDT 03/19/2024 5:34 AM EDT Narrative Resulting Agency Comment Spec In Lab Ganesh Nguyen MD HEMATOLOGY ORDERA BLES Performing Organization Address [facility] Co de Phone Number [facility] [place] [address] * (ABNORMAL) Comprehensive metabolic panel (non-fasting) (03/19/2024 5:25 AM EDT) Pathologist [facility] Glucose Lvl 181 65 - 199 mg/dL [facility] Comment:Diabetes: >=200 mg/d L plus symptoms BUN 14 8 - 18 mg/dL [facility] Creatinine 0.91 0.70 - 1.20 mg/dL [facility] Sodium 137 135 - 145 mmol/L [facility] Potassium 4.2 3.5 - 5.0 mmol/L [facility] Comment: Please note: ??Patients with WBC >100,000 may have falsely elevated Potassium levels. ??For accurate Potassium quantification in these patients send serum separator tube (gold top) for subsequent determinations. ??Contact the Clinical Chemistry Laboratory if there are any questions. Chloride 100 98 - 107 mmol/L [facility] CO2 22 22 - 31 mmol/L [facility] Anion Gap 15 5 - 15 mmol/L [facility] Calcium 8.7 8.5 - 10.5 mg/dL [facility] Total Protein 7.2 6.1 - 8.0 g/dL [facility] Albumin 4.5 3.2 - 5.2 g/dL [facility] AST 95(H) 0 - 30 unit/L [facility] Comment:result rechecked-bz ALT 31(H) 0 - 30 unit/L [facility] Alk Phos 70 35 - 105 unit/L [facility] Total Bilirubin 0.5 0.2 - 1.3 mg/dL [facility] Estimated GFR 72 >=60 mL/min/1. 73 m?? [facility] Comment: This patient's estimated GFR was calculated using the 2020 CKD-EPI equation. The estimated GFR can vary from the measured GFR by up to 30% in the absence of rapidly changing kidney function. Assessment of the estimated GFR is not appropriate when creatinine concentrations are rapidly changing. For clinical situations in which a more precise estimate of GFR is necessary, consider alternative methods of GFR estimation such as a 24-hour urine creatinine clearance. Assignment of CKD stage 1-5 for patients with an eGFR near the transition point between stages may be based on clinical assessment of muscle mass and symptoms in addition to eGFR. Blood 03/19/2024 5:25 AM EDT 03/19/2024 5:34 AM EDT Narrative Resulting Agency Comment Spec In Lab Ganesh Nguyen MD CHEMISTRY ORDERAB LES Performing Organization Address [facility] Co de Phone Number [facility] [place] [address] * EKG 12 Lead (03/19/2024 2:23 AM EDT) Ventricular rate 67 BPM MUSE SYSTEM Atrial Rate 67 BPM MUSE SYSTEM P-R Interval 152 ms MUSE SYSTEM QRS Duration 78 ms MUSE SYSTEM Q-T Interval 500 ms MUSE SYSTEM QTC Calculated (Bezet) 528 ms MUSE SYSTEM Calculated P [place] 54 degrees MUSE SYSTEM Calculated R [place] 56 degrees MUSE SYSTEM Calculated T [place] 31 degrees MUSE SYSTEM INTERPRETATION Normal sinus rhythm Prolonged QT Abnormal ECG No previous ECGs available Confirmed by MD Hebert, Destin ([id number]) on 03/23/2024 8:10:32 AM MUSE SYSTEM 03/19/2024 2:23 AM EDT 03/23/2024 8:10 AM EDT Ganesh Nguyen MD ECG ORDERABLES Performing Organization Address [facility] Co de Phone Number MUSE SYSTEM * (ABNORMAL) Differential, Automated (03/19/2024 2:20 AM EDT) Neutrophils % 89.8 % [facility] Neutr Abs (ANC) 15.44(H) 1.70 - 6.10 x10(3)/mc L [facility] Lymphocytes % 6.4 % [facility] Lymphocytes Abs 1.1 0.9 - 3.2 x10(3)/mc L [facility] Monocytes % 2.9 % [facility] Monocyte Abs 0.5 0.3 - 0.9 x10(3)/mc L [facility] Eosinophils % 0.1 % [facility] Eosinophils Abs 0.0 0.0 - 0.4 x10(3)/[facility] Basophils % 0.3 % [facility] Basophils Abs 0.0 0.0 - 0.1 x10(3)/mc L [facility] Immature Gran % 0.50 % [facility] Comment: Immature granulocytes(IG's)percentage and absolute count will include metamyelocytes, myelocytes, and promyelocytes. Blood smears from CBCs yielding IG's will be scanned manually for concordance. If this scan disagrees with the automated IG or if promyelocytes are noted, a manual differential will be performed. Lesia Gran Abs 0.08(H) 0.00 - 0.04 x10(3)/mc L [facility] Blood 03/19/2024 2:20 AM EDT 03/19/2024 2:59 AM EDT Narrative Resulting Agency Comment Spec In Lab Ganesh Nguyen MD HEMATOLOGY ORDERA BLES [facility] [place] [address] * (ABNORMAL) Hemogram (03/19/2024 2:20 AM EDT) WBC 17.2(H) 4.0 - 9.5 x10(3)/[facility] RBC 4.70 4.00 - 5.21 x10(6)/[facility] Hemoglobin 13.3 11.7 - 15.5 g/dL [facility] Hematocrit 38.7 35.7 - 45.8 % [facility] MCV 82.3(L) 82.6 - 94.4 fL [facility] MCH 28.3 27.1 - 32.0 pg [facility] MCHC 34.4 31.7 - 35.0 g/dL [facility] Platelets 281 145 - 357 x10(3)/[facility] RDWSD 41.0 37.0 - 46.0 fL [facility] RDWCV 13.7 11.5 - 14.1 % [facility] MPV 9.7 7.6 - 12.9 fL [facility] nRBC % Auto 0.0 % [facility] nRBC Abs Auto 0.000 0.000 - 0.000 x10(3)/mcL [facility] [facility] Blood 03/19/2024 2:20 AM EDT 03/19/2024 2:59 AM EDT Narrative Resulting Agency Comment Spec In Lab Ganesh Nguyen MD HEMATOLOGY ORDERA BLES [facility] [place] [address] * (ABNORMAL) Troponin (03/19/2024 2:20 AM EDT) Troponin-T HS 960(H) <=14 ng/L [facility] Comment: This patient's troponin T concentration was determined using the Lynda 5th Generation troponin T assay. The 99th percentile for Troponin T for this test is 14 ng/L for females, and 22 ng/L for males. According to the fourth universal definition of myocardial infarction, the term acute myocardial infarction should be used when there is acute myocardial injury with clinical evidence of acute myocardial ischemia and with detection of a rise and/or fall of cardiac troponin values with at least one value above the 99th percentile and at least one of the following: - Symptoms of myocardial ischemia; - New ischemic ECG changes; - Development of pathological Q waves; - Imaging evidence of new loss of viable myocardium or new regional wall motion abnormality in a pattern consistent with an ischemic etiology; - Identification of a coronary thrombus by angiography or autopsy (not for type 2 or 3 MIs) Serial measurement of troponin and the change in troponin concentration over time (delta) is crucial for the diagnosis of acute myocardial infarction. Guidance on the interpretation of the new 5th Generation Troponin T values and the delta troponin value can be found in the [facility] Laboratory Test Catalog Troponin - [facility] Laboratory Test Catalog Reference: Fourth Grundy Definition of Myocardial Infarction. Journal of the [place] [employer] 2018;72:2544-2076 Blood 03/19/2024 2:20 AM EDT 03/19/2024 2:59 AM EDT Narrative Resulting Agency Comment Spec In Lab Ganesh Nguyen MD CHEMISTRY ORDERAB LES Performing Organization Address [facility] de Phone Number [facility] [place] [address] * (ABNORMAL) APTT (03/19/2024 2:20 AM EDT) PTT 123(Criti lewis) 25 - 37 sec [facility] Comment: Critical Result called by ?? HOWAJM CRITICAL Results read back by: ? chang jacqueline at 2024-03-19 03:42:13 The PTT is NOT appropriate for heparin monitoring. Use the Anti-Xa level for heparin monitoring (HEP UFH) or LMWH monitoring (HEP LMW). A PTT less than 37 seconds generally indicates adequate hemostasis. Blood 03/19/2024 2:20 AM EDT 03/19/2024 2:59 AM EDT Narrative Resulting Agency Comment Spec In Lab Ganesh Nguyen MD HEMATOLOGY ORDERA BLES Performing Organization Address [facility] de Phone Number [facility] [place] [address] * Prothrombin Time (03/19/2024 2:20 AM EDT) PT 11.7 9.4 - 12.5 sec [facility] INR 1.0 [facility] Comment: An INR <2.0 indicates adequate procoagulant activity for hemostasis in most patients without underlying bleeding disorders, though the INR may not adequately reflect hemostatic capacity in patients with liver disease and synthetic impairment. The recommended target INR range for therapeutic anticoagulation is 2.0 ? 3.0 for most applications, though lower and higher ranges may be appropriate depending on clinical circumstances. Blood 03/19/2024 2:20 AM EDT 03/19/2024 2:59 AM EDT Narrative Resulting Agency Comment Spec In Lab Ganesh Nguyen MD HEMATOLOGY ORDERA BLES Performing Organization Address [facility]/State/ZIP Co de Phone Number [facility] [place] [address] * (ABNORMAL) Hepatic Function Panel (03/19/2024 2:20 AM EDT) Total Protein 6.7 6.1 - 8.0 g/dL [facility] Albumin 4.3 3.2 - 5.2 g/dL [facility] AST 49(H) 0 - 30 unit/L [facility] ALT 26 0 - 30 unit/L [facility] Alk Phos 67 35 - 105 unit/L [facility] Total Bilirubin 0.4 0.2 - 1.3 mg/dL [facility] Bili, Direct 0.1 0.0 - 0.3 mg/dL [facility] Blood 03/19/2024 2:20 AM EDT 03/19/2024 2:59 AM EDT Narrative Resulting Agency Comment Spec In Lab Ganesh Nguyen MD CHEMISTRY ORDERAB LES Performing Organization Address City/[facility]/ZIP Co de Phone Number [facility] [place] [address] * (ABNORMAL) pro-Brain Natriuretic Peptide (03/19/2024 2:20 AM EDT) ProBNP 529(H) <=124 pg/mL [facility] Blood 03/19/2024 2:20 AM EDT 03/19/2024 2:59 AM EDT Narrative Resulting Agency Comment Spec In Lab Ganesh Nguyen MD CHEMISTRY ORDERAB LES Performing Organization Address City/[facility]/ZIP Co de Phone Number [facility] [place] [address] * Phosphorus (03/19/2024 2:20 AM EDT) Phosphorus 3.8 2.5 - 4.5 mg/dL [facility] Blood 03/19/2024 2:20 AM EDT 03/19/2024 2:59 AM EDT Narrative Resulting Agency Comment Spec In Lab Ganesh Nguyen MD CHEMISTRY ORDERAB LES Performing Organization Address City/[facility]/ZIP Co de Phone Number [facility] [place] [address] * Magnesium (03/19/2024 2:20 AM EDT) Magnesium 0.71 0.69 - 1.07 mmol/L [facility] Blood 03/19/2024 2:20 AM EDT 03/19/2024 2:59 AM EDT Narrative Resulting Agency Comment Spec In Lab Ganesh Nguyen MD CHEMISTRY ORDERAB LES Performing Organization Address [facility] de Phone Number [facility] [place] [address] * (ABNORMAL) Basic Metabolic Panel (non-fasting) (03/19/2024 2:20 AM EDT) Glucose Lvl 160 65 - 199 mg/dL [facility] Comment:Diabetes: >=200 mg/d L plus symptoms BUN 14 8 - 18 mg/dL [facility] Creatinine 0.88 0.70 - 1.20 mg/dL [facility] Sodium 137 135 - 145 mmol/L [facility] Potassium 3.9 3.5 - 5.0 mmol/L [facility] Comment: Please note: ??Patients with WBC >100,000 may have falsely elevated Potassium levels. ??For accurate Potassium quantification in these patients send serum separator tube (gold top) for subsequent determinations. ??Contact the Clinical Chemistry Laboratory if there are any questions. Chloride 100 98 - 107 mmol/L [facility] CO2 20(L) 22 - 31 mmol/L [facility] Anion Gap 17(H) 5 - 15 mmol/L [facility] Calcium 8.2(L) 8.5 - 10.5 mg/dL [facility] Estimated GFR 75 >=60 mL/min/1. 73 m?? [facility] Comment: This patient's estimated GFR was calculated using the 2020 CKD-EPI equation. The estimated GFR can vary from the measured GFR by up to 30% in the absence of rapidly changing kidney function. Assessment of the estimated GFR is not appropriate when creatinine concentrations are rapidly changing. For clinical situations in which a more precise estimate of GFR is necessary, consider alternative methods of GFR estimation such as a 24-hour urine creatinine clearance. Assignment of CKD stage 1-5 for patients with an eGFR near the transition point between stages may be based on clinical assessment of muscle mass and symptoms in addition to eGFR. Blood 03/19/2024 2:20 AM EDT 03/19/2024 2:59 AM EDT Narrative Resulting Agency Comment Spec In Lab Ganesh Nguyen MD CHEMISTRY ORDERAB LES [facility] [place] [address] * (ABNORMAL) Point of Care Blood Gas Historical (03/19/2024 1:41 AM EDT) POC pH 7.28(Criti lewis) 7.35 - 7.45 [facility] POC PCO2 40 35 - 45 mmHg [facility] POC PO2 84(L) 85 - 104 mmHg [facility] POC Base Excess -8.0(L) -3.0 - 3.0 mmol/L [facility] POC HCO3 18.6(L) 20.0 - 26.0 mmol/L [facility] POC TCO2 20(L) 22 - 31 mmol/L [facility] POC Sodium 134(L) 135 - 145 mmol/L [facility] POC Potassium 3.4(L) 3.5 - 5.0 mmol/L [facility] POC Ionized Ca 1.09(L) 1.15 - 1.33 mmol/L [facility] POC Hematocrit 38.0 34.0 - 45.0 % [facility] POC Calc Hgb 12.9 11.2 - 15.7 g/dL [facility] Blood 03/19/2024 1:41 AM EDT 03/19/2024 1:41 AM EDT Kathryn Walker MD CHEMISTRY ORDERABL ES [facility] [place] [address] * CARDIAC CATHETERIZATION (03/19/2024 1:36 AM EDT) Anatomical Region Laterality Modality Other Narrative 03/19/2024 7:19 AM EDT ?[facility] ? Cardiac Catheterization/Intervention Report ? Patient Name: Isa Ro. ? Procedure Date: 03/19/2024 ? A #: [id number] ? Primary Physician: Ramo Roy ? Case #: [id number] ? File Name: [id number] ? Catheterization Order Number: [id number] ? [facility] ? Final Report [place], [place] ? Patient Name: ? Isa A. Warnaar ? ID#: ?[id number] ? : ?1965 ? Procedure Date: ? March 19, 2024 ? Case #: ? [id number] ? Room: ? 6 ? Case Physician: ? Ramo Roy M.D. ? Start: ?00:55 ?Fellow: ? John Munroe M.D. ? Admission: ??03/18/2024 ? Referring Physician: ??Facundo WILEY M.D. ? Procedures: ?* Coronary Angiography ?* Left Heart Catheterization ?* Coronary Ultrasound ?* Coronary Stent Insertion ?* Arterial Blood Gases ? Pre Case Status: ?These procedures were performed on an emergent basis. ? History ?Isa Ro is a 59 year old woman. She has hypertension and a ?family history of coronary artery disease. The patient's smoking status ?is Never. She has hypercholesterolemia. The patient has a prior history ?of coronary artery disease. She is status post an acute ST elevation ?myocardial infarction. The patient had a remote coronary intervention ?procedure. Prior to the initiation of this procedure, the patient was ?designated as ASA Class IV. The CSHA clinical frailty scale is 3: ?Managing Well. ? Diagnostic Tests: ?Prior Coronary Angiography: ? Prior coronary angiography was performed on 12/15/2014. ?Electrocardiography: ? EKG was assessed by ECG. EKG was Abnormal. EKG showed ST Deviation ? >= 0.5 mm and other abnormality. ?Medications Prior to Procedure: ? Aspirin. ? Indications for Diagnostic Cath: ?The priority of the diagnostic procedure was Emergent. The indication for ?the labor relations teacher visit is ACS less than or equal to 24 hrs. Chest pain ?symptom assessment was: Typical Angina. ? Technique: ?A 6 SLFr sheath was inserted in the right radial artery utilizing the ?Seldinger technique. The left coronary artery was injected utilizing a ?5Fr TIG 4.0 catheter. A 5Fr TIG 4.0 catheter was used to inject the right ?coronary artery. Coronary stent insertion was performed and the equipment ?utilized will be described in the intervention summary section. 4,000 ?units of heparin were administered. A total of 200cc of Omnipaque were ?opened, 118cc of Omnipaque were administered and 82cc of Omnipaque were ?wasted. Radiation: Fluoro time was 12.9 minutes, dose area product was ?29.00 Gy/cm2 and air kerma was 428 mGY. See the case log for additional ?details. ?The patient received the following medications prior to and during the ?procedure: ? Unfractionated Heparin. ? Hemodynamics: ?Left Heart Pressures ? Resting: ? Syst Diast ? EDP ?a ?v ? m ?Ao 118 ?? 66 ?80 ?LV 118 ? 31 ? Coronary Angiography: ?Dominance: Right ?Left Main ? The left main was normal, free of disease. ?Left Anterior Descending ? There was a single discrete total occlusion of the mid segment of ? the left anterior descending artery (LAD). ? There was a single discrete total occlusion of the distal segment of ? the first septal branch (1st Septal) of the LAD. ??There was evidence ? of thrombus in this lesion. ?Left Circumflex ? The left circumflex (LCX) was normal, free of disease. ?Right Coronary Artery ? The right coronary artery (RCA) was normal, free of disease. ? Intravascular Imaging/Physiology: ?Intravascular Ultrasound was performed in the mid LAD using a 6 Fr EBU ?3.5 guiding catheter and a 3.5 Fr [place] Eye Quechan 20 Mhz using auto 1 ?mm/sec pullback. ??Imaging was successful. ??Image quality was excellent. ?A vasodilator was administered. ?Indication: IVUS performed for pre intervention planning and post ?intervention assessment. ?IVUS performed after pre-dilation. ??IVUS performed after vessel ?manipulation. ?Findings Pre-Intervention: diffuse plaque. The proximal reference minimum ?luminal diameter was 3.00mm. ??The distal reference minimum luminal ?diameter was 3.00mm. ??The average reference minimum luminal diameter was ?3.00mm. ??These measurements were performed after pre-dilation of the ?lesion. ?Findings Post-Intervention: The stent was well expanded and apposed. ?Conclusions: stent/intervention appears optimized. ? Indication for Intervention: ?Coronary intervention was indicated for primary therapy for an acute ?myocardial infarction. The priority for the procedure was Emergent. The ?NCDR indication for the procedure was STEMI-Immediate PCI for Acute ?STEMI. STEMI onset was 03/18/2024 at 9:00 PM. Thrombolytics were ?administered on 03/18/2024 at 10:22 PM. ? Intervention Summary: ?Left Anterior Descending Artery ? Mid 100% ? Stent insertion was performed on the total occlusion in the ? mid segment of the LAD. This was a drug-eluting stent ? thrombosis lesion. According to the ACC/AHA classification ? system, this lesion was a type B2 high risk lesion. Management ? of recurrent restenosis was the indication for stent ? insertion. This was the culprit lesion. A guidewire was placed ? across this lesion. Vessel flow pre intervention was ADALID 0. ? Lesion length was 19mm. This was a previously treated lesion ? on 09/14/2013. ? Stent insertion was accomplished through a 6 Fr. EBU 3.5 ? guide. ??The lesion was predilated with a 2.50mm EUPHORA 12 MM ? balloon with a maximum inflation pressure of 14 atmospheres. ? A premounted 3.00 x 08 mm [place] Penitas (JAHAIRA) was deployed ? with a maximum inflation pressure of 12 atmospheres. ? Another stent insertion was accomplished through a 6 Fr. EBU ? 3.5 guide. ??A premounted 2.00 x 08 mm [place] Penitas (JAHAIRA) was ? deployed. ? The final outcome was defined as successful. There was no ? residual stenosis following this intervention. The final ADALID ? flow was 3. ? Vascular Access: ?Vascular Access Management: ? Mechanical Compression of the right radial artery access site was ? performed. ? Point of Care Testing: ?ABG: ? Arterial Blood gasses were performed using the I-Stat analyzer at ? 01:00: pH: 7.28, pCO2: 39.5, pO2: 84.0, sPO2: 95%, HCO3: 19 on FIO2: ? bipap. ?I-Stat: ? I-Stat was performed using the I-Stat analyzer at 01:30: Na+: 134, ? K+: 3.4, iCa++: 1.09, Hct: 38%, Hb: 12.9. ? Dual Antiplatelet (DAPT) Recommendations: ?Drug eluting stent (JAHAIRA) inserted. ?P2Y12 Loading dose administered prior to arrival in the labor relations teacher. ?Recommended anti-platelet/anti-thrombotic regimen: ?Start aspirin 81 mg daily now and continue for indefinitely. ?Start clopidogrel 75 mg daily now and continue for 12 months then stop. ?These recommendations are made at the time of the intervention. Patient ?and provider preferences or a changing clinical situation may require ?modification of this regimen. Consult [facility] Interventional Cardiology for ?questions. ?The 1 year bleeding risk as calculated by the PRECISE DAPT score is ?Moderate risk. ?This patient has a high DAPT score and may benefit from prolonged (12-30 ?months) dual antiplatelet therapy if the patient has completed 12 months ?of DAPT without having a major bleeding or ischemic event and the patient ?is NOT on chronic anticoagulation. This should be used for guidance in ?the overall conversation about prolonged dual antiplatelet therapy and ?not as a recommendation for or against any medical treatment. Consult ?http://tools.acc.org/DAPTriskapp/#!/content/calculator/ or [facility] ?Interventional Cardiology for questions ? Conclusions: ?* One vessel coronary artery disease (LAD) ?* Elevated left ventricular end diastolic pressure ?* Successful stent insertion of the mid LAD lesion ?* See Dual Antiplatelet (DAPT) Recommendations above ? Complications/Events: ?The patient had no complications during these procedures. ? Post Procedure Fluid Recommendations: ?IV fluid at 122 mL/hr for 4 hours for a total of 488 mL. These ?recommendations are made at the time of the procedure. Patient and ?provider preferences or a changing clinical situation may require ?modification of this regimen. ?The attending physician was present for the entire procedure. ?Dr. Ramo Roy M.D. was present during the moderate sedation ?intraservice time as documented by the sedation nurse. ??Case time = 00:32. ?Dr. Ramo Roy M.D. performed the coronary angiography, left heart ?catheterization, IVUS # coronary, stent insertion-coronary and ABG. ? Ramo Roy M.D. ? Electronically Signed by: Ramo Roy M.D. ? Report Finalized: 03/19/2024 ??01:56 ? Report Last Ammended: 03/21/2024 ??09:37 ? Procedure Note Ramo Roy MD - 03/21/2024 [facility] Cardiac Catheterization/Intervention Report Patient Name: Isa Ro Procedure Date: 03/19/2024 A #: [id number] Primary Physician: Ramo Roy Case #: [id number] File Name: [id number] Catheterization Order Number: [id number] [facility] FinalReport [place], [place] Patient Name: Isa Ro ID#:[id number] :1965 Procedure Date: March 19, 2024 Case #: [id number] Room: 6 Case Physician: Ramo Roy M.D. Start: 00:55 Fellow: John Munroe M.D. Admission:03/18/2024 Referring Physician: Facundo WILEY M.D. Procedures: * Coronary Angiography * Left Heart Catheterization * Coronary Ultrasound * Coronary Stent Insertion * Arterial Blood Gases Pre Case Status: These procedures were performed on an emergent basis. History Isa Ro is a 59 year old woman. She has hypertension and a family history of coronary artery disease. The patient's smokingstatus is Never. She has hypercholesterolemia. The patient has a priorhistory of coronary artery disease. She is status post an acute ST elevation myocardial infarction. The patient had a remote coronaryintervention procedure. Prior to the initiation of this procedure, the patientwas designated as ASA Class IV. The [facility] clinical frailty scale is 3: Managing Well. Diagnostic Tests: Prior Coronary Angiography: Prior coronary angiography was performed on 12/15/2014. Electrocardiography: EKG was assessed by ECG. EKG was Abnormal. EKG showed STDeviation >= 0.5 mm and other abnormality. Medications Prior to Procedure: Aspirin. Indications for Diagnostic Cath: The priority of the diagnostic procedure was Emergent. Theindication for the labor relations teacher visit is ACS less than or equal to 24 hrs. Chest pain symptom assessment was: Typical Angina. Technique: A 6 SLFr sheath was inserted in the right radial artery utilizingthe Seldinger technique. The left coronary artery was injected utilizinga 5Fr TIG 4.0 catheter. A 5Fr TIG 4.0 catheter was used to inject theright coronary artery. Coronary stent insertion was performed and theequipment utilized will be described in the intervention summary section.4,000 units of heparin were administered. A total of 200cc of Omnipaquewere opened, 118cc of Omnipaque were administered and 82cc of Omnipaquewere wasted. Radiation: Fluoro time was 12.9 minutes, dose area productwas 29.00 Gy/cm2 and air kerma was 428 mGY. See the case log foradditional details. The patient received the following medications prior to and duringthe procedure: Unfractionated Heparin. Hemodynamics: Left Heart Pressures Resting: Syst Diast EDP a v m Ao 118 66 80 LV 118 31 Coronary Angiography: Dominance: Right Left Main The left main was normal, free of disease. Left Anterior Descending There was a single discrete total occlusion of the mid segmentof the left anterior descending artery (LAD). There was a single discrete total occlusion of the distalsegment of the first septal branch (1st Septal) of the LAD. There wasevidence of thrombus in this lesion. Left Circumflex The left circumflex (LCX) was normal, free of disease. Right Coronary Artery The right coronary artery (RCA) was normal, free of disease. Intravascular Imaging/Physiology: Intravascular Ultrasound was performed in the mid LAD using a 6 FrEBU 3.5 guiding catheter and a 3.5 Fr [place] Eye Quechan 20 Mhz usingauto 1 mm/sec pullback. Imaging was successful. Image quality wasexcellent. A vasodilator was administered. Indication: IVUS performed for pre intervention planning and post intervention assessment. IVUS performed after pre-dilation. IVUS performed after vessel manipulation. Findings Pre-Intervention: diffuse plaque. The proximal referenceminimum luminal diameter was 3.00mm. The distal reference minimum luminal diameter was 3.00mm. The average reference minimum luminal diameterwas 3.00mm. These measurements were performed after pre-dilation of the lesion. Findings Post-Intervention: The stent was well expanded and apposed. Conclusions: stent/intervention appears optimized. Indication for Intervention: Coronary intervention was indicated for primary therapy for an acute myocardial infarction. The priority for the procedure was Emergent.[facility] was [facility]I-Immediate PCI for Acute STEMI. STEMI onset was 03/18/2024 at 9:00 PM. Thrombolytics were administered on 03/18/2024 at 10:22 PM. Intervention Summary: Left Anterior Descending Artery Mid 100% Stent insertion was performed on the total occlusion inthe mid segment of the LAD. This was a drug-eluting stent thrombosis lesion. According to the ACC/AHAclassification system, this lesion was a type B2 high risk lesion.Management of recurrent restenosis was the indication for stent insertion. This was the culprit lesion. A guidewire wasplaced across this lesion. Vessel flow pre intervention was TIMI0. Lesion length was 19mm. This was a previously treatedlesion on 09/14/2013. Stent insertion was accomplished through a 6 Fr. EBU 3.5 guide. The lesion was predilated with a 2.50mm [id number] MM balloon with a maximum inflation pressure of 14atmospheres. A premounted 3.00 x 08 mm Alber[place] Penitas (JAHAIRA) wasdeployed with a maximum inflation pressure of 12 atmospheres. Another stent insertion was accomplished through a 6 Fr.EBU 3.5 guide. A premounted 2.00 x 08 mm [place] Penitas (JAHAIRA)was deployed. The final outcome was defined as successful. There was no residual stenosis following this intervention. The finalTIMI flow was 3. Vascular Access: Vascular Access Management: Mechanical Compression of the right radial artery access sitewas performed. Point of Care Testing: ABG: Arterial Blood gasses were performed using the I-Stat analyzerat 01:00: pH: 7.28, pCO2: 39.5, pO2: 84.0, sPO2: 95%, HCO3: 19 onFIO2: bipap. I-Stat: I-Stat was performed using the I-Stat analyzer at 01:30: Na+:134, K+: 3.4, iCa++: 1.09, Hct: 38%, Hb: 12.9. Dual Antiplatelet (DAPT) Recommendations: Drug eluting stent (JAHAIRA) inserted. P2Y12 Loading dose administered prior to arrival in the labor relations teacher. Recommended anti-platelet/anti-thrombotic regimen: Start aspirin 81 mg daily now and continue for indefinitely. Start clopidogrel 75 mg daily now and continue for 12 months thenstop. These recommendations are made at the time of the intervention.Patient and provider preferences or a changing clinical situation mayrequire modification of this regimen. Consult [facility] Interventional Cardiologyfor questions. The 1 year bleeding risk as calculated by the PRECISE DAPT score is Moderate risk. This patient has a high DAPT score and may benefit from prolonged(12-30 months) dual antiplatelet therapy if the patient has completed 12months of DAPT without having a major bleeding or ischemic event and thepatient is NOT on chronic anticoagulation. This should be used for guidancein the overall conversation about prolonged dual antiplatelet therapyand not as a recommendation for or against any medical treatment.Consult http://tools.acc.org/DAPTriskapp/#!/content/calculator/ or [facility] [facility] [place] Inter[facility]iology for questions Conclusions: * One vessel coronary artery disease (LAD) * Elevated left ventricular end diastolic pressure * Successful stent insertion of the mid LAD lesion * See Dual Antiplatelet (DAPT) Recommendations above Complications/Events: The patient had no complications during these procedures. Post Procedure Fluid Recommendations: IV fluid at 122 mL/hr for 4 hours for a total of 488 mL. These recommendations are made at the time of the procedure. Patient and provider preferences or a changing clinical situation may require modification of this regimen. The attending physician was present for the entire procedure. Dr. Ramo S Kirill, M.D. was present during the moderate sedation intraservice time as documented by the sedation nurse. Case time =00:32. Dr. Ramo Roy M.D. performed the coronary angiography, leftheart catheterization, IVUS # coronary, stent insertion-coronary and ABG. Ramo Roy M.D. Electronically Signed by: Ramo Roy M.D. Report Finalized: 03/19/2024 01:56 Report Last Ammended: 03/21/2024 09:37 Ramo Roy MD CARDIAC CATH ORDERAB LES * (ABNORMAL) Point of Care Blood Gas Historical (03/19/2024 1:26 AM EDT) POC pH 7.20(Criti lewis) 7.35 - 7.45 [facility] POC PCO2 38 35 - 45 mmHg [facility] POC PO2 74(L) 85 - 104 mmHg [facility] POC Base Excess -14.0(L) -3.0 - 3.0 mmol/L [facility] POC HCO3 14.5(L) 20.0 - 26.0 mmol/L [facility] POC TCO2 16(L) 22 - 31 mmol/L [facility] POC Sodium 116(Critic al) 135 - 145 mmol/L [facility] POC Potassium 3.1(L) 3.5 - 5.0 mmol/L [facility] POC Ionized Ca 1.04(L) 1.15 - 1.33 mmol/L [facility] POC Hematocrit 39.0 34.0 - 45.0 % [facility] POC Calc Hgb 13.3 11.2 - 15.7 g/dL [facility] Blood 03/19/2024 1:26 AM EDT 03/19/2024 1:26 AM EDT Kathryn Walker MD CHEMISTRY ORDERABL ES [facility] [address] [place] [address] documented in this encounter Visit Diagnoses Diagnosis Acute ST elevation myocardial infarction (STEMI) due to occlusion of left anterior descending (LAD) coronary artery- Primary ST elevation myocardial infarction involving left anterior descending (LAD) coronary artery Chest pain, unspecified type documented in this encounter Admitting Diagnoses Diagnosis Acute ST elevation myocardial infarction (STEMI) due to occlusion of left anterior descending (LAD) coronary artery documented in this encounter Administered Medications Inactive Administered Medications - up to 3 most recent administrations Medication Order MAR Action Action Date Dose Rate Site acetaminophen (Tylenol) tablet 650 mg 650 mg, Oral, EVERY 6 HOURS PRN, Starting on 03/19/24 at 0606, Until Thu03/22/24 at 1411, Pain, Maximum dose of acetaminophen is 4,000 mg from all sources in 24 hours. When ordered for pain, acetaminophen should be given even when other ordered pain medications are indicated., Routine Given 03/20/2024 3:39 PM EDT 650 mg Given 03/20/2024 7:44 AM EDT 650 mg Given 03/19/2024 8:18 PM EDT 650 mg alum-mag hydroxide-simeth (Maalox) (40 mg-40 mg-4 mg/mL) oral liquid 10 mL 10 mL, Oral, 3 TIMES DAILY PRN, Starting on 03/20/24 at 1137, Until Thu03/22/24 at 1411, Heartburn, Routine ascorbic acid (Vitamin C) (Vitamin C) tablet 500 mg 500 mg, Oral, DAILY, First dose on 03/20/24 at 0900, 3 doses, Last dose on Thu03/22/24 at 0900 Given 03/22/2024 8:57 AM EDT 500 mg Given 03/21/2024 8:35 AM EDT 500 mg Given 03/20/2024 8:12 AM EDT 500 mg aspirin chewable tablet 81 mg 81 mg, Oral, DAILY, First dose on 03/19/24 at 0900, Until Discontinued, Routine Given 03/22/2024 8:57 AM EDT 81 mg Given 03/21/2024 8:36 AM EDT 81 mg Given 03/20/2024 8:01 AM EDT 81 mg atorvastatin (Lipitor) tablet 80 mg 80 mg, Oral, DAILY, First dose (after last modification) on 03/19/24 at 0615, Until Discontinued, Routine Given 03/22/2024 8:57 AM EDT 80 mg Given 03/21/2024 8:33 AM EDT 80 mg Given 03/20/2024 8:00 AM EDT 80 mg carvediloL (Coreg) tablet 3.125 mg 3.125 mg, Oral, 2 TIMES DAILY WITH MEALS, First dose on Thu03/19/24 at 1700, Until Discontinued, Routine Given 03/22/2024 8:57 AM EDT 3.125 mg Given 03/21/2024 4:40 PM EDT 3.125 mg Given 03/21/2024 8:34 AM EDT 3.125 mg clopidogreL (Plavix) tablet 75 mg 75 mg, Oral, DAILY, First dose on Thu03/19/24 at 0900, Until Discontinued, Routine Given 03/22/2024 8:57 AM EDT 75 mg Given 03/21/2024 8:36 AM EDT 75 mg Given 03/20/2024 8:01 AM EDT 75 mg famotidine (Pepcid) tablet 20 mg 20 mg, Oral, 2 TIMES DAILY, First dose on Thu03/19/24 at 0900, Until Discontinued, Routine Given 03/20/2024 8:01 AM EDT 20 mg Given 03/19/2024 8:18 PM EDT 20 mg Given 03/19/2024 8:19 AM EDT 20 mg famotidine (Pepcid) tablet 20 mg 20 mg, Oral, 2 TIMES DAILY, First dose (after last modification) on Thu03/21/24 at 0900, Until Discontinued, Routine Given 03/22/2024 8:57 AM EDT 20 mg Given 03/21/2024 8:53 PM EDT 20 mg Given 03/21/2024 8:33 AM EDT 20 mg heparin (porcine) (5,000 units/1 mL) subcutaneous injection 5,000 Units 5,000 Units, Subcutaneous, EVERY 8 HOURS SCHEDULED, First dose on Thu03/19/24 at 0600, Until Discontinued, Routine Given 03/22/2024 5:11 AM EDT 5,000 Unit s Given 03/21/2024 9:00 PM EDT 5,000 Units Given 03/21/2024 1:20 PM EDT 5,000 Units magnesium sulfate 2 g in sterile water 50 mL infusion 2 g, Intravenous, ONCE, 1 dose, On 03/19/24 at 0800, Administer over 120 Minutes New Bag 03/19/2024 7:35 AM EDT 2 g 25 mL/hr magnesium sulfate 2 g in sterile water 50 mL infusion 2 g, Intravenous, EVERY 2 HOURS PRN, Starting on 03/19/24 at 0709, Until 03/22/24 at 1411, Administer over 120 Minutes, Hypomagnesemia, Administer one 2 g IV bag, over 120 minutes for serum magnesium of 0.65 - 0.79 mMol/L. magnesium sulfate 2 g in sterile water 50 mL infusion 2 g, Intravenous, EVERY 2 HOURS PRN, Starting on 03/19/24 at 0709, Until 03/22/24 at 1411, Administer over 120 Minutes, Hypomagnesemia, Administer two 2 g IV bag, each over 120 minutes for serum magnesium of 0.5 - 0.64 mMol/L. nitroGLYcerin (200 mcg/mL) in dextrose 5% 250 mL infusion CONTINUOUS PRN, Starting on 03/19/24 at 0109, Until 03/19/24 at 1543, Intra-Operative (Intra-Procedure), Routine Restarted 03/19/2024 11:45 AM EDT 50 mcg/min 15 mL/hr Rate/Dose Change 03/19/2024 10:02 AM EDT 25 mcg/min 7.5 mL /hr Rate/Dose Verify 03/19/2024 6:00 AM EDT 15 mL/h r nitroGLYcerin (Nitrostat) disintegrating tablet 0.4 mg 0.4 mg, Sublingual, EVERY 5 MIN PRN, Starting on 03/19/24 at 0210, Until 03/22/24 at 1411, Chest pain, May repeat every 5 minutes for a total of three doses. Notify provider if chest pain not relieved with nitroglycerin. Do not administer nitroglycerin if the patient has received or taken phosphodiesterase (PDE-5) inhibitors such as sildenafil, tadalafil or vardenafil within the last 24 to 72 hours., Routine Given 03/19/2024 8:24 PM EDT 0.4 mg potassium chloride ER (Klor-Con M) crystal tablet 20 mEq 20 mEq, Oral, EVERY 4 HOURS PRN, Starting on 03/19/24 at 0709, Until Thu03/22/24 at 1411, hypokalemia, Administer for serum potassium (mMol/L) of 3.9 - 4 potassium chloride ER particle/crystal tablets (Klor-Con M) may be broken in half and each half swallowed separately. Tablets can be dissolved in ~4 ounces of water; allow ~2 minutes to dissolve, stir well and drink immediately. Do not crush, chew, or suck on tablet., Routine potassium chloride ER (Klor-Con M) crystal tablet 40 mEq 40 mEq, Oral, EVERY 4 HOURS PRN, Starting on 03/19/24 at 0709, Until Thu03/22/24 at 1411, hypokalemia, Administer for serum potassium (mMol/L) of 3.6 - 3.8 potassium chloride ER particle/crystal tablets (Klor-Con M) may be broken in half and each half swallowed separately. Tablets can be dissolved in ~4 ounces of water; allow ~2 minutes to dissolve, stir well and drink immediately. Do not crush, chew, or suck on tablet., Routine sodium chloride 0.9 % (flush) (BD PosiFlush Normal Saline 0.9) flush 5 mL 5 mL, Intravenous, 2 TIMES DAILY, First dose on 03/19/24 at 0900, Until Discontinued, Routine Given 03/22/2024 8:58 AM EDT 5 mLs Given 03/21/2024 9:00 PM EDT 5 mLs Given 03/21/2024 8:40 AM EDT 5 mLs ubiquinone (Coenzyme Q10) (Ubiquinone) capsule 50 mg 50 mg, Oral, DAILY, First dose on 03/19/24 at 1715, Until Discontinued, Routine Given 03/22/2024 8:58 AM EDT 50 mg Given 03/21/2024 8:36 AM EDT 50 mg Given 03/20/2024 8:01 AM EDT 50 mg documented in this encounter Active and Recently Administered Medications Times are shown in EDT. Scheduled Medication Order 03/20/2024 03/21/2024 03/22/2024 ascorbic acid (Vitamin C) (Vitamin C) tablet 500 mg (COMPLETED) 500 mg, Oral, DAILY, First dose on Thu03/20/24 at 0900, 3 doses, Last dose on Thu03/22/24 at 0900 0812 (Given - Provider: Loreta Lopez RN) 0835 (Given - Provider: Izaiah Jimenez RN) 0857 (Given - Provider: Lubna Cruz, TOSHA) aspirin chewable tablet 81 mg 81 mg, Oral, DAILY, First dose on Thu03/19/24 at 0900, Until Discontinued, Routine 0801 (Given - Provider: Loreta Lopez RN) 0836 (Given - Provider: Izaiah Jimenez RN) 0857 (Given - Provider: Lubna Cruz, TOSHA) atorvastatin (Lipitor) tablet 80 mg 80 mg, Oral, DAILY, First dose (after last modification) on Thu03/19/24 at 0615, Until Discontinued, Routine 0800 (Given - Provider: Loreta Lopez RN) 0833 (Given - Provider: Izaiah Jimenez RN) 0857 (Given - Provider: Lubna Cruz RN) carvediloL (Coreg) tablet 3.125 mg 3.125 mg, Oral, 2 TIMES DAILY WITH MEALS, First dose on Thu03/19/24 at 1700, Until Discontinued, Routine 0752 (Given - Provider: Loreta Lopez RN)1759 (Given - Provider: Loreta Lopez RN) 0834 (Given - Provider: Izaiah Jimenez RN)1640 (Given - Provider: Izaiah Jimenez RN) 0857 (Given - Provider: Lubna Cruz RN) clopidogreL (Plavix) tablet 75 mg 75 mg, Oral, DAILY, First dose on Thu03/19/24 at 0900, Until Discontinued, Routine 0801 (Given - Provider: Loreta Lopez RN) 0836 (Given - Provider: Izaiah Jimenez RN) 0857 (Given - Provider: Lubna Cruz RN) famotidine (Pepcid) tablet 20 mg (CANCELED) 20 mg, Oral, 2 TIMES DAILY, First dose on Thu03/19/24 at 0900, Until Discontinued, Routine 0801 (Given - Provider: Loreta Lopez RN) famotidine (Pepcid) tablet 20 mg 20 mg, Oral, 2 TIMES DAILY, First dose (after last modification) on Thu03/21/24 at 0900, Until Discontinued, Routine 0833 (Given - Provider: Izaiah Jimenez RN)205 (Given - Provider: Javon Sykes RN) 0857 (Given - Provider: Lubna Cruz, RN) heparin (porcine) (5,000 units/1 mL) subcutaneous injection 5,000 Units 5,000 Units, Subcutaneous, EVERY 8 HOURS SCHEDULED, First dose on 03/19/24 at 0600, Until Discontinued, Routine 0546 (Given - Provider: Javon Sykes RN)1400 (Not Given - Provider: Loreta Lopez RN - Reason: See comment - Comment: pt ambulating in halls multiple times today)2118 (Given - Provider: Javon Sykes RN) 0531 (Given - Provider: Javon Sykes RN)1320 (Given - Provider: Izaiah Jimenez RN)2100 (Given - Provider: Javon Sykes RN) 0511 (Given - Provider: Javon Sykes RN) sodium chloride 0.9 % (flush) (BD PosiFlush Normal Saline 0.9) flush 5 mL 5 mL, Intravenous, 2 TIMES DAILY, First dose on 03/19/24 at 0900, Until Discontinued, Routine 0801 (Given - Provider: Loreta Lopez RN)2120 (Given - Provider: Javon Sykes RN) 0840 (Given - Provider: Izaiah Jimenez RN)2100 (Given - Provider: Javon Sykes RN) 0858 (Given - Provider: Lubna Cruz, TOSHA) ubiquinone (Coenzyme Q10) (Ubiquinone) capsule 50 mg 50 mg, Oral, DAILY, First dose on 03/19/24 at 1715, Until Discontinued, Routine 0801 (Given - Provider: Loreta Lopez RN) 0836 (Given - Provider: Izaiah Jimenez RN) 0858 (Given - Provider: Lubna Cruz, TOSHA) PRN Medication Order 03/20/2024 03/21/2024 03/22/2024 acetaminophen (Tylenol) tablet 650 mg 650 mg, Oral, EVERY 6 HOURS PRN, Starting on 03/19/24 at 0606, Until Thu03/22/24 at 1411, Pain, Maximum dose of acetaminophen is 4,000 mg from all sources in 24 hours. When ordered for pain, acetaminophen should be given even when other ordered pain medications are indicated., Routine 0744 (Given - Provider: Loreta Lopez RN - Comment: headache)1539 (Given - Provider: Loreta Lopez RN - Comment: headache)2118 (Not Given - Provider: Javon Sykes RN - Reason: Patient/family refused - Comment: patient changed her mind after it was scanned) alum-mag hydroxide-simeth (Maalox) (40 mg-40 mg-4 mg/mL) oral liquid 10 mL 10 mL, Oral, 3 TIMES DAILY PRN, Starting on 03/20/24 at 1137, Until Thu03/22/24 at 1411, Heartburn, Routine magnesium sulfate 2 g in sterile water 50 mL infusion(Linked Group 1) 2 g, Intravenous, EVERY 2 HOURS PRN, Starting on 03/19/24 at 0709, Until Thu03/22/24 at 1411, Administer over 120 Minutes, Hypomagnesemia, Administer one 2 g IV bag, over 120 minutes for serum magnesium of 0.65 - 0.79 mMol/L. magnesium sulfate 2 g in sterile water 50 mL infusion(Linked Group 1) 2 g, Intravenous, EVERY 2 HOURS PRN, Starting on 03/19/24 at 0709, Until Thu03/22/24 at 1411, Administer over 120 Minutes, Hypomagnesemia, Administer two 2 g IV bag, each over 120 minutes for serum magnesium of 0.5 - 0.64 mMol/L. nitroGLYcerin (Nitrostat) disintegrating tablet 0.4 mg 0.4 mg, Sublingual, EVERY 5 MIN PRN, Starting on 03/19/24 at 0210, Until Thu03/22/24 at 1411, Chest pain, May repeat every 5 minutes for a total of three doses. Notify provider if chest pain not relieved with nitroglycerin. Do not administer nitroglycerin if the patient has received or taken phosphodiesterase (PDE-5) inhibitors such as sildenafil, tadalafil or vardenafil within the last 24 to 72 hours., Routine potassium chloride ER (Klor-Con M) crystal tablet 20 mEq(Linked Group 2) 20 mEq, Oral, EVERY 4 HOURS PRN, Starting on 03/19/24 at 0709, Until Thu03/22/24 at 1411, hypokalemia, Administer for serum potassium (mMol/L) of 3.9 - 4 potassium chloride ER particle/crystal tablets (Klor-Con M) may be broken in half and each half swallowed separately. Tablets can be dissolved in ~4 ounces of water; allow ~2 minutes to dissolve, stir well and drink immediately. Do not crush, chew, or suck on tablet., Routine potassium chloride ER (Klor-Con M) crystal tablet 40 mEq(Linked Group 2) 40 mEq, Oral, EVERY 4 HOURS PRN, Starting on 03/19/24 at 0709, Until Thu03/22/24 at 1411, hypokalemia, Administer for serum potassium (mMol/L) of 3.6 - 3.8 potassium chloride ER particle/crystal tablets (Klor-Con M) may be broken in half and each half swallowed separately. Tablets can be dissolved in ~4 ounces of water; allow ~2 minutes to dissolve, stir well and drink immediately. Do not crush, chew, or suck on tablet., Routine sodium chloride 0.9 % (flush) (BD PosiFlush Normal Saline 0.9) flush 5-20 mL 5-20 mL, Intravenous, EVERY 1 MIN PRN, Starting on 03/19/24 at 0210, Until Thu03/22/24 at 1411, flush, Flush pertains to all indwelling lines. Flush per protocol found in the job aid using the link provided on this medication record., Routine Linked Groups Order Group 1: magnesium sulfate 2 g in sterile water 50 mL infusionJump to med 2 g, Intravenous, EVERY 2 HOURS PRN, Starting on 03/19/24 at 0709, Until Thu03/22/24 at 1411, Administer over 120 Minutes, Hypomagnesemia, Administer one 2 g IV bag, over 120 minutes for serum magnesium of 0.65 - 0.79 mMol/L. Or magnesium sulfate 2 g in sterile water 50 mL infusionJump to med 2 g, Intravenous, EVERY 2 HOURS PRN, Starting on 03/19/24 at 0709, Until Thu03/22/24 at 1411, Administer over 120 Minutes, Hypomagnesemia, Administer two 2 g IV bag, each over 120 minutes for serum magnesium of 0.5 - 0.64 mMol/L. Group 2: potassium chloride ER (Klor-Con M) crystal tablet 40 mEqJump to med 40 mEq, Oral, EVERY 4 HOURS PRN, Starting on Thu03/19/24 at 0709, Until Thu03/22/24 at 1411, hypokalemia, Administer for serum potassium (mMol/L) of 3.6 - 3.8 potassium chloride ER particle/crystal tablets (Klor-Con M) may be broken in half and each half swallowed separately. Tablets can be dissolved in ~4 ounces of water; allow ~2 minutes to dissolve, stir well and drink immediately. Do not crush, chew, or suck on tablet., Routine Or potassium chloride ER (Klor-Con M) crystal tablet 20 mEqJump to med 20 mEq, Oral, EVERY 4 HOURS PRN, Starting on Thu03/19/24 at 0709, Until Thu03/22/24 at 1411, hypokalemia, Administer for serum potassium (mMol/L) of 3.9 - 4 potassium chloride ER particle/crystal tablets (Klor-Con M) may be broken in half and each half swallowed separately. Tablets can be dissolved in ~4 ounces of water; allow ~2 minutes to dissolve, stir well and drink immediately. Do not crush, chew, or suck on tablet., Routine documented in this encounter Care Teams Title Clerk Relationship Specialty Start Date End Date None None PCP - General 03/19/24 documented as of this encounter
--- OUTSIDE RECORDS SUMMARY | 2024-03-30 13:27 | XMS_ITS | Encounter Summary ---
Author Organization [facility] Address [address] [place] [address] Care Team Providers Care Smasher Hand Name Role Phone Pretty Avery MD Primary Care Provider [phone] Encounter Details Date Type Department Care Team (Late st Contact Info) Description 09/06/2013 Results Only [facility] Laboratory Services - [facility] ([facility]) [address], [place] [id number] Jake Sabillon FNP [address] [place], [place] [id number] Social History Tobacco Use Types Packs/Day Years Used Date Smoking Tobacco: Never Assessed Sex and Gender Information Value Date Recorded Sex Assigned at Not on file Gender Identity Not on file Sexual Orientation Not on file documented as of this encounter Plan of Treatment Not on file documented as of this encounter Procedures Procedure Name Priority Date/Time Associated Diagnosis Comments PAP TEST- RESULT ONLY Routine 09/06/2013 0:00 EST documented in this encounter Results * PAP TEST- RESULT ONLY (09/06/2013 0:00 EST) Pathology Report: CYTOPATHOLOGY REPORT Reports generated via electronic interface contain original data; however they are lacking the format of the original report. Caution should be taken when reading/interpreti ng unformatted reports. Name: ? ANNEEZEQUIEL GREEN Chuy ? Accession #: ? [id number] : ? 1965 (Age: 48) ??F ?Collect Date: ? 09/06/2013 Location: ? [facility] ? Receive Date: ? 09/08/2013 Provider: ?JAKE SABILLON HEEL NAIL RASPER Copy to: ? Specimen/Source: ?Pap Test, Cervix/Endocervix, ThinPrep Imaging System with manual evaluation Last Menstrual Period: ? 08/14/13 ? SPECIMEN ADEQUACY ? Satisfactory for Evaluation - transformation zone component present GENERAL CATEGORIZATION ? Negative for Intraepithelial Lesion or Malignancy INTERPRETATION ? Reactive cellular changes associated with inflammation present (includes repair). ? Document reviewed and electronically signed by: ? TANIYA TUCKER MD ? Report Date: ??09/13/2013 14:00 End of Report [facility] SOOD 09/06/2013 09/08/2013 Jake Sabillon HEEL NAIL RASPER PATHOLOGY ORDERABLES U[facility]ASH[facility] SOOD [address] [place] [address] documented in this encounter Visit Diagnoses Not on filedocumented in this encounter Care Teams Smasher Hand Relationship Specialty Start Date End Date Pretty Avery MD [address] [place] [address] PCP - General 06/05/10 documented as of this encounter
--- OUTSIDE RECORDS SUMMARY | 2024-03-30 13:27 | XMS_ITS | Encounter Summary ---
Author Organization [facility] Address [address] [place] [address] Care Team Providers Care Casino Enforcement Agent Name Role Phone Pretty Avery MD Primary Care Provider [phone] Encounter Details Date Type Department Care Team (Latest Contact Info) Description 06/06/2010 18:54 EDT - 06/06/2010 23:59 EDT Hospital Encounter [address] [address] Pretty vAery MD [address] [place] [address] Discharge Disposition: Auto Discharge Social History Tobacco Use Types Packs/Day Years Used Date Smoking Tobacco: Never Assessed Sex and Gender Information Value Date Recorded Sex Assigned at Not on file Gender Identity Not on file Sexual Orientation Not on file documented as of this encounter Discharge Disposition Disposition Code Departure Means Destination Auto Discharge Home documented in this encounter Plan of Treatment Not on file documented as of this encounter Visit Diagnoses Not on filedocumented in this encounter Care Teams Casino Enforcement Agent Relationship Specialty Start Date End Date Pretty Avery MD [address] [place] [phone] PCP - General 06/05/10 documented as of this encounter
--- OUTSIDE RECORDS SUMMARY | 2024-03-30 13:27 | XMS_ITS | Encounter Summary ---
[place] [address] Care Team Providers Care Department Of Sociology Chair Name Role Phone None Primary Care Provider Unavailabl e Encounter Details Date Type Department Care Team (Late st Contact Info) Description 03/27/2024 Telephone Cardiology at [address] [phone] Fidel Yanes PA [facility] [place] [address] Social History Tobacco Use Types Packs/Day Years Used Date Smoking Tobacco: Former Smokeless Tobacco: Never Alcohol Use Standard Drinks/Week Comments Yes 14 (1 standard drink = 0.6 oz pu re alcohol) [facility] Utilities Answer Date Recorded In the past 12 months has th e electric, gas, oil, or water company threatened to shut off services in your [...] any time in the past 12 m [facility], were you homeless or living in a group home (including now)? No 03/21/2024 IPV Inpatient Questions Answer Date Recorded Does [...] on file documented as of this encounter Miscellaneous Notes * Addendum Note - Fidel Yanes PA - 03/27/2024 11:06 AM EDTAddended by: FIDEL YANES on: 03/27/2024 11:06 AM Modules accepted: Orders * Telephone Encounter - Fidel Yanes PA - 03/27/2024 10:39 AM EDT Received page from ornamental machine operator. Isa called in from home this morning. Attempted to call back x2. Left VM encouraging her to call back if cardiology support still needed. Fidel Yanes PA-C ADDENDUM: Got a hold of Isa who was recently discharged from after STEMI. She is concerned she is experiencing side effects from beta remigio (Coreg 3.125 mg BID). Feeling very fatigued. Slept 14 hours and still very tired. Her BP is running around 100/55 which is very low for her. HR WNL in 60-70s. After a lengthy discussion, we decided to stop carvedilol and start metoprolol succinate 12.5 mg nightly. I advised her to call us back if still experiencing side effects from this and we can consider stopping BB altogether. She is actually concerned her blood pressure may be too high coming off the carvedilol because her baseline BP is typically in the 140s. I informed her there are other BP medications we can try if needed that are not beta blockers. She was in agreement with this plan. Fidel Yanes PA-C documented in this encounter Plan of Treatment Upcoming Encounters Date Type Department Care Team (Late st Contact Info) Description 05/09/2024 10:40 AM EDT Office Visit Cardiology at [address] [place] [address] Herlinda Weaver PA [facility] [place] [address] documented as of this encounter Visit Diagnoses Not on filedocumented in this encounter Care Teams Department Of Sociology Chair Relationship Specialty Start Date End Date None None PCP - General 03/19/24 documented as of this encounter
--- OUTSIDE RECORDS SUMMARY | 2024-03-30 13:27 | XMS_ITS | Encounter Summary ---
Author Organization [facility] Address [address] [place] [address] Care Team Providers Care Analytics Analyst Name Role Phone Unavailable Primary Care Provider Unavailabl e Encounter Details Date Type Department Care Team (Late st Contact Info) Description 04/29/2010 Results Only [address] [address] Pretty Avery MD [address] [place] [id number] Social History Tobacco Use Types Packs/Day Years Used Date Smoking Tobacco: Never Assessed Sex and Gender Information Value Date Recorded Sex Assigned at Not on file Gender Identity Not on file Sexual Orientation Not on file documented as of this encounter Plan of Treatment Not on file documented as of this encounter Procedures Procedure Name Priority Date/Time Associated Diagnosis Comments CYTOPATHOLOGY Routine 04/29/2010 0:00 EDT documented in this encounter Results * CYTOPATHOLOGY (04/29/2010 0:00 EDT) Pathology Report: CYTOPATHOLOGY REPORT ? Reports generated via electronic interface contain original data; ? however they are lacking the format of the original report. ? Caution should be taken when reading/interpreti ng unformatted reports. ? Name: ? EZEQUIEL THOMAS ? Accession #: ? [id number] ? : ? 1965 (Age: 45) ??F ?Collect Date: ? 04/29/2010 ? Location: ? [facility] ? Receive Date: ? 04/30/2010 ? Provider: ?PRETTY AVERY MD ? Copy to: ? Specimen/Source: ?Pap Test, Endocervix, ThinPrep Imaging System with ? manual evaluation ? Last Menstrual Period: ? Present ? Other: ? HPVA - HPV testing requested if ASC-US on the current ThinPrep Pap test. ? SPECIMEN ADEQUACY ? Unsatisfactory for Evaluation, ? - insufficient numbers of squamous epithelial cells (less than 10% of expected ?? cellularity) ? - sample preparation compromised by excessive blood ? GENERAL CATEGORIZATION ? Specimen processed and examined, but unsatisfactory for evaluation of ? epithelial abnormality. ? Recommend repeat Pap test or further follow up, as clinically indicated. ? Document reviewed and electronically signed by: ? Jean Powell, CT(ASCP) ? Report Date: ??05/02/2010 13:12 ? End of Report ? URVASHI SOOD 04/29/2010 04/30/2010 Pretty Avery MD PATHOLOGY ORDERABLES URVASHI SOOD [address] [place] [address] documented in this encounter Visit Diagnoses Not on filedocumented in this encounter
--- OUTSIDE RECORDS SUMMARY | 2024-03-30 13:27 | XMS_ITS | Encounter Summary ---
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 Name Role Phone Pretty Avery MD Primary Care Provider [phone] Reason for Referral * Consult (Routine) - Closed Specialty Diagnoses / Procedures Referred By Contac t Referred To Contact Diagnoses NSTEMI (non-ST elevated myocardial infarction) ([facility]) S/P coronary artery stent placement Yesy Manuel NP [address] [place] [id number] Alex Soto MD [address] [place] [id number] Referral ID Status Reason Start Date Expiration Date V isits Requested Visits Authorized [id number] Closed Specialty Services Required 03/31/2014 1 1 Question Answer Reason for Request: post NSTEMI post PCI, CAD Scheduling Comments (optional ? describe specific scheduling needs if applicable): 1 month Expected Discharge Date (Inpatient Only): 04/01/2014 Comments Please schedule in [facility] cardiology clinic with Dr Alex Soto or next available line patroller at that clinic. Office in [place] [phone]; cardiology clinic in [facility] [phone] * Consult (Routine) - Closed Specialty Diagnoses / Procedures Referred By Contac t Referred To Contact Cardiac Rehabilitation Diagnoses NSTEMI (non-ST elevated myocardial infarction) ([facility] S/P coronary artery stent placement Yesy Manuel NP [address] [facility] [address] [place] [address] Referral ID Status Reason Start Date Expiration Date V isits Requested Visits Authorized [id number] Closed Specialty Services Required 03/31/2014 1 1 Question Answer Reason for Request: post NSTEMI, post pci, CAD Scheduling Comments (optional ? describe specific scheduling needs if applicable): 1 week Expected Discharge Date (Inpatient Only): 04/01/2014 Comments Please refer to [facility] in [facility] Encounter Details Date Type Department Care Team (Late st Contact Info) Description 03/30/2014 20:10 EDT - 04/01/2014 15:30 EDT Hospital Encounter [facility] Cardiac/Telemetry Unit [address], [place] [id number] Waqas Yao MD [address] [facility] [address] [place] [id number] NSTEMI (non-ST elevated myocardial infarction) ([facility]) (Primary Dx); S/P coronary artery stent placement Discharge Disposition: Home or Self Care Social History Tobacco Use Types Packs/Day Years Used Date Smoking Tobacco: Former Alcohol Use Standard Drinks/Week Comments Yes 5.8 (1 standard drink = 0.6 oz p ure alcohol) Sex and Gender Information Value Date Recorded Sex Assigned at Not on file Gender Identity Not on file Sexual Orientation Not on file documented as of this encounter Last Filed Vital Signs Vital Sign Reading Time Taken Comments Blood Pressure 133/65 04/01/2014 0954 EDT Pulse 58 03/31/2014 2245 EDT Temperature 36.7 ??C (98.1 ??F) 04/01/2014 0954 EDT Respiratory Rate 16 03/31/2014 2245 EDT Oxygen Saturation 100% 04/01/2014 0954 EDT Inhaled Oxygen Concentration - - Weight 51.7 kg (114 lb) 03/30/20142040 EDT Height 157.5 cm (5' 2) 03/30/20142040 EDT Body Mass Index 20.85 03/30/20142040 EDT documented in this encounter Functional Status Functional Status Response Date of Assess ment Are you deaf or do you have serious difficulty h earing? No 03/30/2014 Are you blind or do you have serious difficulty seeing, even when wearing glasses? No 03/30/2014 documented as of this encounter Discharge Summaries * Tali Jacobs MD - 04/01/2014 1239 EDT Discharge Summary Attending Physician: Waqas Yao MD Date of Admission: 03/30/2014 Date of Discharge: 04/01/2014 Disposition: home Reason for Admission: Chest pain Hospital Problems: Active Problems: NSTEMI (non-ST elevated myocardial infarction) Principal Procedure: LHC: Left main: Free of angiographically significant disease. Left anterior descending: Focal 80% prox, eccentric. Left circumflex: Free of angiographically significant disease. Right coronary artery: Free of angiographically significant disease. Interventional Procedure: Using standard technique, the left anterior descending coronary artery was stented using a Resolute JAHAIRA. Secondary Procedures: Echo: Summary: Left ventricle: The cavity size was normal. Wall thickness was normal. Systolic function was normal. The estimated ejection fraction was 60-65%. Wall motion was normal; there were no diagnostic regional wall motion abnormalities. Left ventricular diastolic function parameters were normal. Hospital Course: Isa Ro is a 49 y.o. 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 SHe presented with exertional angina that was sharp, 7-8/10 in left chest at dance class. She has h/o exertional anginal for past 2-3 Years, normally relieved by rest and a negative stress test 2 years ago. The pain that she presented with was not relieved with rest, and she was brought to [facility]. Her EKG showed non-specific ST changes and trops elevated at 0.179. She was transferred to [facility] for NSTEMI. She was started on heparin gtt, ASA, atovastatin, metoprolol, and ticagelor load. Heparin was weaned over the night. In the morning she had 2 more episodes of chest pain, and given SL nitro x2, whichimproved pain. She was later taken for [facility] after a discussion of the need to be on blood thinning medications for 12 months if a stent was to be placed. The patient agreed. Her [facility] had culprit lesionin LAD, which was stented with JAHAIRA. She was encouraged and amenable to continue her cardiac medication package. Clinical Issues Needing Follow-up: -anticoagulation with stent -hypertension Results Pending at Discharge: Test results still pending from this admission None Discharge Medications: START taking these medications Sig aspirin chewable 81 mg tablet 81 mg, oral, DAILY atorvastatin 40 mg tablet Commonly known as: LIPITOR 40 mg, oral, DAILY metoprolol 25 mg tablet Commonly known as: LOPRESSOR 12.5 mg, oral, 2 TIMES DAILY ticagrelor 90 mg tablet Commonly known as: BRILINTA 90 mg, oral, 2 TIMES DAILY Allergies: Review of patient's allergies indicates no known allergies. Appointments Scheduled with Nino Sepulveda in the Next 3 Months: Follow-Up Appointments and Procedures Recommended to Patient: Follow-up appointments and procedures Amb Consult/Follow Up Cardiac Rehabilitation Please refer to [facility] in [facility] Reason for Request: post NSTEMI, post pci, CAD Expected Discharge Date (Inpatient Only): 04/01/2014 Scheduling Time Frame: 1 week Authorizing Provider: Yesy Manuel NP Amb Consult/Follow Up Cardiology Please schedule in [facility] cardiology clinic with Dr Alex Soto or next available line patroller at that clinic. Office in [place] [phone]; cardiology clinic in [facility] [phone] Reason for Request: post NSTEMI post PCI, CAD Expected Discharge Date (Inpatient Only): 04/01/2014 Scheduling Time Frame: 1 month Authorizing Provider: Yesy Manuel NP Follow up with your PCP in 1 week Follow-Up Labs and Tests: none documented in this encounter Discharge Instructions * Appointments* Tali Jacobs MD - 04/01/2014 12:38 EDT -Follow up with your Primary Care Physician in 2 weeks -Follow up with cardiology in 4-[address] [facility] Please continue your cardiac medications, especially your Ticagrelor. documented in this encounter Medications at Time of Discharge Medication Sig Dispensed Refills Start Date End Date aspirin chewable 81 mg tablet Take 1 Tab by mouth daily. 30 Tab 11 04/01/2014 ticagrelor (BRILINTA) 90 mg tablet Take 1 Tab by mouth 2 times daily. 60 Tab 04/01/2014 atorvastatin (LIPITOR) 40 mg tablet Take 1 Tab by mouth daily. 30 Tab 04/01/2014 12/12/2014 metoprolol (LOPRESSOR) 25 mg tablet Take 0.5 Tabs by mouth 2 times daily. 30 Tab 04/01/2014 12/13/2014 documented as of this encounter Ordered Prescriptions Prescription Sig Dispensed Refills Start Date End Da te ticagrelor (BRILINTA) 90 mg tablet Take 1 Tab by mouth 2 times daily. 60 Tab 04/01/2014 aspirin chewable 81 mg tablet Take 1 Tab by mouth daily. 30 Tab 04/01/2014 metoprolol (LOPRESSOR) 25 mg tablet Take 0.5 Tabs by mouth 2 times daily. 30 Tab 04/01/2014 12/13/2014 atorvastatin (LIPITOR) 40 mg tablet Take 1 Tab by mouth daily. 30 Tab 04/01/2014 12/12/2014 documented in this encounter Discharge Disposition Disposition Code Departure Means Destination Home or Self Care documented in this encounter Progress Notes * Kemal Sheppard MD - 04/01/2014 1005 EDT Interventional Cardiology f/u note CC: cad E: s/p JAHAIRA to LAD S: Pt denies cp, sob, palp, orthopnea/ pnd, cough, f/c, abd pain, n/v, d/c, presyncope/syncope, le edema, back or groin pain, urinary difficulty O: Tele: sinus jessica Blood pressure 122/58, pulse 58, temperature 36.3 ??C (97.3 ??F), temperature source Tympanic, resp. rate 16, height 157.5 cm (62), weight 51.71 kg (114 lb), SpO2 99.00%. GEN: A&O times 3 NECK: no elevated JVP CV: regular, no mrg, 2+ DP/PT pulses Pulm: CTAB, no WRC Abd: s, nt/nd Ext: no le edema, MAEW Neuro: sensation and strength intact, CN II-XII intact grossly Incision: C/D/I, no ecchymosis/ hematoma, no tenderness of the pelvis/lower back Current Facility-Administered Medications Medication Dose Route Frequency Provider Last Rate Last Dose ??? acetaminophen (TYLENOL) tablet 500 mg 500 mg oral Q4H PRN Joel Parker MD 500 mg at 03/31/142036 ??? aspirin chewable tablet 81 mg 81 mg oral DAILY Shahid Rayo MD 81 mg at 03/31/14812 ??? atorvastatin (LIPITOR) tablet 40 mg 40 mg oral DAILY Shahid Rayo MD 40 mg at 03/31/14812 ??? lidocaine-EPINEPHrine 2 %-1:100,000 injection 5-10 mL 5-10 mL intradermal PRN Yesy Manuel NP ??? LORazepam (ATIVAN) tablet 0.5 mg 0.5 mg oral Q4H PRN Shahid Rayo MD ??? metoprolol (LOPRESSOR) tablet 12.5 mg 12.5 mg oral BID Shahid Rayo MD 12.5 mg at ??? morphine injection 2-4 mg 2-4 mg intravenous Q5 MINUTES PRN Shahid Rayo MD ??? nitroGLYCERIN (NITROSTAT) SL tablet 0.4 mg 0.4 mg sublingual Q5 MINUTES PRN Shahid Rayo MD 0.4 mg at 03/31/14 0801 ??? sodium chloride 0.9 % flush 3 mL 3 mL intravenous Q8H Shahid Rayo MD 3 mL at 03/31/142321 ??? ticagrelor (BRILINTA) tablet 90 mg 90 mg oral BID Shahid Rayo MD 90 mg at 03/31/142036 Recent Labs 03/30/14 2101 03/30/14 2223 03/31/14 0643 03/31/14 1432 03/31/14 2214 04/01/14 0550 HGB -- 12.4 13.0 -- -- 12.6 HCT -- 36.5 37.4 -- -- 37.1 WBC -- 9.80 8.21 -- -- 11.20 PLT -- 220 217 -- -- 218 CK 59 -- 55 62 42 35 BUN 13 -- 15 -- -- 10 NA 139 -- 139 -- -- 138 K 3.7 -- 4.2 -- -- 4.2 CL 105 -- 107 -- -- 107 CO2 24 -- 24 -- -- 24 CREATININE 0.74 -- 0.70 -- -- 0.69 TROPONINI 0.179* -- 0.180* 0.136* -- -- HDL -- -- 50 -- -- -- CHOL -- -- 152 -- -- -- TRIG -- -- 100 -- -- -- PTT 130* -- 51* -- -- 27 INR 1.0 -- -- -- -- -- LDL 82 TTE: LVEF 65% A/P - ASA 81 mg indef - Ticagrelor 90mg bid x 12 month - cont cardiac meds, including statin and beta- remigio -would consider addition of ACEI as OP - f/u with cardiology in 2-[address] [facility] - f/u with PCP in 2 weeks. * Tali Jacobs MD - 03/31/2014 6987 EDT Cardiology Post Procedure Note Date of Service: 03/31/2014 17:24 S/p LHC to right radial. S: Pt resting comfortably. Denies chest pain, palpitations, lightheadedness, dizziness, dyspnea, numbness or weakness. Denies pain, bleeding or discharge from the cath site. Ambulating without complication. O: Blood pressure 116/60, pulse 55, temperature 35.9 ??C (96.6 ??F), temperature source Tympanic, resp. rate 16, height 152.4 cm (60), weight 66.679 kg (147 lb), SpO2 94.00%. Gen: NAD, resting comfortably Chest: CTAB, no w/r/r CV: RRR, S1/S2 normal, no m/r/g Extr: cath site d/i, there is some dried blood on tegaderm, not gauze. (per nurse, there was some dried blood on wrist from band, and didn't want to displace clot by wiping it off with alcohol). No bleeding or discharge from site, no hematoma or mass Pulse: DP 2+ and symmetric Neuro: A+Ox4, 5/5 strength, grossly normal sensation A/P: 72 y.o.male s/p cardiac catheterization. -- stable as above, cont to monitor -- cont plan as per morning note Tali Jacobs MD * Sammi Barrett - 03/31/2014 1338 EDT CM notes - Patient's insurance called to verify dc RX for Brilinta, approval given for 90Mg BID 60/month x 1 year. Approval form being faxed to case management office. Quyen Barrett RN, CM pager#[phone] * Yesy Manuel NP - 03/31/2014 1308 EDT Ticagrelor twice daily without interruption x 1 year reviewed with patient and she verbalizes understanding. Cardiac rehab reviewed with patient and the patient is willing to attend at [facility]. Referral sent and written material given to patient.Follow up has been requested with Dr Alex Soto in cardiology clinic, [facility]. manager terminal contacted for Brilanta coverage. 2+ right radial pulse, no hematoma. * Mitch Teixeira RN - 03/31/2014 0901 EDT Case Management Assessment & Initial Discharge Plan Working Diagnosis/Presenting Problem: NSTEMI Living Arrangements: Lives with 5 yo son at home, family member taking care of son while in hospital. 2-3steps to enter 2 story home. 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 Social Supports: Mother lives locally, friends available Existing Community Resources: No HH in past or currently, does not foresee needs upon discharge. PCP Pretty Avery MD Advanced Directives/DPOA: AD pamphlet given to patient Cultural/Spiritual Needs: Denied visit Insurance/Financial Needs: Medicaid coverage, pharmacy is [facility] in [facility] Transportation Needs: May need assistance with transportation, trying to set up a ride from family for d/c. Patient's car is in [place] currently. Patient Goals: No other needs at this time. Assessment and Discharge Care Plan: Met with patient this morning, patient may need assistance withtransportation, notified her to contact CM for help if her plans fall through for discharge. No other needs at this time for safe discharge. Mitch Bennett met for Cristy Jeremy [phone] documented in this encounter H&P Notes * Destin Reyes MD - 03/30/20142058 EDT Internal Medicine Admission H&P Admission Date: 03/30/2014 PCP: Pretty Avery MD CC: Chest Pain Subjective: HPI: Isa Ro is a 49 y.o. year old female with no previous known cad who presents with typical chest pain. She states that she has experienced exertional angina for the past 2-3 years and has had a negative stress test 2 years ago. Her chest pain was relived with rest in the past. She says that she was at a dance class today and had chest pain with some radiation to her neck which was not relived with rest. She was taken [place] [facility] and treated with nitro and aspirin. The patient experienced some relief with nitro. EKG showed non specific st changes and trops were elevated. [facility] for management. Currently with the nitro gtt running she has minimal chest pain and is comfo rtable. Review of Systems A ten point review of systems performed and negative except as noted in HPI/subjective PMH PSH Past Medical History Diagnosis Date ??? HTN (hypertension) ??? HLD (hyperlipidemia) Past Surgical History Procedure Laterality Date ??? section Social History Family history History Substance Use Topics ??? Smoking status: Former Smoker ??? Smokeless tobacco: Not on file ??? Alcohol Use: 3.5 - 7 oz/week 7-14 drink(s) per week Family History Problem Relation Age of Onset ??? Heart Disease Current Facility-Administered Medications Medication Route Frequency ??? [START ON 03/31/2014] aspirin chewable tablet 81 mg oral DAILY ??? atorvastatin (LIPITOR) tablet 40 mg oral DAILY ??? heparin 1,000 unit/mL injection 3,500 Units intravenous PRN Or ??? heparin 1,000 unit/mL injection 1,800 Units intravenous PRN ??? heparin in 1/2 NS 25,000 unit/250 mL infusion intravenous CONTINUOUS ??? morphine injection 2-4 mg intravenous Q5 MINUTES PRN ??? nitroGLYCERIN (NITROSTAT) SL tablet 0.4 mg sublingual Q5 MINUTES PRN ??? nitroGLYcerin 25 mg/250 mL (100 mcg/mL) infusion intravenous CONTINUOUS ??? [START ON 03/31/2014] sodium chloride 0.9 % flush 3 mL intravenous Q8H Allergies Allergies not on file none known Objective: Patient Vitals for the past 8 hrs: BP Heart Rate Resp Temp SpO2 O2 Device 03/30/142099 121/78 mmHg - - - - - 03/30/142040 136/67 mmHg 58 BPM 16 36.9 ??C (98.4 ??F) 99 % Room air General appearance: alert, cooperative, no distress Head: Normocephalic, without obvious abnormality, atraumatic Eyes: conjunctivae/corneas clear. PERRL, EOM's intact. Lungs: clear to auscultation bilaterally Heart: regular rate and rhythm, S1, S2 normal, no murmur, click, rub or gallop Abdomen: mildly ttp Neurologic: Grossly normal Mental Status: awake and alert; oriented to person, place, and time Pulses: 2+ and symmetric Skin: Skin color, temperature, turgor normal. No rashes or lesions ECG: non specific st depressions in the lateral leads Data Review: Labs pending Assessment: 49 y.o. female with typical chest pain and NSTEMI. Plan: Chest pain, CAD -tele -cycle CE -A1c, lipids -TTE -ASA, ticagrelor -PRN morphine -PRN NTG -metoprolol 12.5 mg BID -LHC in the AM HLD -statin HTN -PRN hydralazine -ANILA/ARB if pressures ef is less than [address] See and discussed with Dr. Pat PPX: heparin gtt Code status: FULL CODE Dispo: pending clinical course Shahid Rayo MD Pager # [phone] 03/30/2014 21:10 Attestation statement::I have seen and examined this patient. I agree with the plan as outlined above. Destin Reyes MD documented in this encounter Procedure Notes * Dilip Mahajan Jr., MD - 03/31/2014 1247 EDT Images from the original note were not included. Cardiovascular Catheterization Laboratory Preliminary Report -- Catheterization Date of Service/Procedure: 03/31/2014 Attending Physician: Dilip Mahajan Jr., MD Fellow: Yesy Manuel NP and Chun Nilesen MD Pre-Procedure Diagnosis/Indication: Isa Ro is a 49 y.o. year old female with NSTEMI. NCDR Indication for PCI:NSTEMI Prior Stress Testing? No Cardiac Medications: On two or more anti anginal medications at the time of catheterization? No Anesthesia: A moderate level of anesthesia/conscious sedation was used in addition to local anesthesia. Access: Right radial artery Procedure: She was [facility] to the [facility] Card[facility] forthe procedure: Diagnostic coronary/graft angiography and Left heart cath. Closure: TR Band Post-Procedure Condition: The condition of the patient was Good. Complications: None. IV Contrast Total: 125 mL Estimated Blood Loss: Minimal. Unless otherwise noted, there were no specimens removed, cultures obtained, or drains retained. Research Study: Patient is not enrolled in a research study. Diagnostic Cardiac Study Results Left main: Free of angiographically significant disease. Left anterior descending: Focal 80% prox, eccentric. Left circumflex: Free of angiographically significant disease. Right coronary artery: Free of angiographically significant disease. Focal, eccentric 80% after large S1 in the left anterior descending coronary artery Hemodynamic Results LVEDP 14 There was no gradient across the aortic valve. Post-Procedure Diagnostic Conclusion: PCI is indicated. Interventional Procedure: Using standard technique, the left anterior descending coronary artery was stented using a Resolute JAHAIRA. left anterior descending coronary artery after percutaneous coronary intervention Plan: Continue prior medications. Aspirin 81mg po daily. Ticagrelor 90mg po BID. Evaluation for cardiac rehab program. High-intensity statin At the completion of the procedure, the attending physician has explained the findings, therapies, any complications and treatment plan to the patient. With the patients consent, all family members and patient support persons who were present at the conclusion of the procedure have been notified ofthese results and treatment plans as well. Post Interventional Conclusion/Physician Disposition: (check one main category) Inpatient procedure, continue inpatient status (no procedural complication required) Dilip Mahajan Jr., MD Pager Number: [phone] 03/31/2014 12:48 documented in this encounter Miscellaneous Notes * Plan of Care - Khadra Singh - 04/01/2014 1433 EDT Problem: CIRCULATORY STATUS Goal: Patient Has Stable Vital Signs And Fluid Balance D: Patient discharged home per MD. A: IV removed, catheter tip intact. Telemetry removed. RN reviewed discharge instructions and medications with patient and . Patient received prescriptions, medication sheets, and discharge instructions. R: Patient expressed good understanding of discharge instructions. They have no questions at this time. Patient dressed independently. They left via wheelchair. * Plan of Care - Ivan Nguyen - 04/01/2014 0033 EDT Problem: PAIN Goal: Patient???s Pain And Discomfort Are Adequately Managed Data: Patient endorses 3/10 aching pain in right arm proximal to right radial cath site. Radial site CDI with Tegaderm in place, CSMTs wnl, no hematoma present. Patient denies any CP, lightheadedness, or SOB. Sinus jessica with HR in the 50s. Action: Administered PRN tylenol and offered cold pack for arm. Encouraged patient to minimize use of right arm overnight. Response: Patient endorses improvement in pain from cold pack use, 0/10. Resting comfortably, denies need for sleep aid. Ivan Nguyen RN 04/01/2014 0:30 * Plan of Care - Robin Johnson - 03/31/2014 3797 EDT Problem: CIRCULATORY STATUS Goal: Patient Has Stable Vital Signs And Fluid Balance Intervention: Assess peripheral pulses and capillary refill Data: Patient back to room 11-1 after C through right radial artery. TR band in place with 16 cc inflated. Patient complains of 4/10 left chest pain that intervention team is aware of related to reperfusion. Action: Vitals and right wrist assessed in order to protocol. TR band released after 2 hrs and ortho's assessed using left leg for BP so slightly hypertensive. Out of bed with contact guard assist initially. Patient encouraged to eat and drink. Dr. Jacobs notified of right chest pain 11/21 at 1630. Response: aware of pain, Yesy Manuel has been in to see patient as well. Plan to watch patient overnight and likely discharge tomorrow. 1800: Patient now denies pain. Ambulating in the hallway. Right radial site clean dry and intact. Robin Johnson RN 03/31/2014 17:00 * Plan of Care - Cuauhtemoc Berg RN - 03/31/2014 4851 EDT Problem: CIRCULATORY STATUS Goal: Patient Has Stable Vital Signs And Fluid Balance Outcome: Ongoing D: Patient arrived to [place] [address]. Vital signs noted, and tele applied. Patient in SR with heart rate in 80s. Patient denies chest pain, SOB, and discomfort. A: Assessment as documented in flow sheet. Admission database completed. Patient orientated to room, equipment, and care plan. R: Continue to monitor and document per protocol. documented in this encounter Plan of Treatment Scheduled Referrals Name Type Priority Associated Diagnoses Order Schedule AMB CONS/FOLLOW UP CARDIAC REHABILITATION Outpatient Referral Routine NSTEMI (non-ST elevated myocardial infarction) ([facility]) S/P coronary artery stent placement Ordered: 03/31/2014 AMB CONS/FOLLOW UP CARDIOLOGY Outpatient Referral Routine NSTEMI (non-ST elevated myocardial infarction) ([facility]) S/P coronary artery stent placement Ordered: 03/31/2014 documented as of this encounter Procedures Procedure Name Priority Date/Time Associated Diagnosis Comments INVASIVE CARDIOLOGY REPORT-SCANNED 09/26/2015 9:34 EST ECG REPORT - SCANNED 04/06/2014 13:00 EDT ECG REPORT - SCANNED 04/06/2014 13:00 EDT INVASIVE CARDIOLOGY REPORT-SCANNED 04/06/2014 13:00 EDT ECG REPORT - SCANNED 04/05/2014 7:12 EDT ECG REPORT - SCANNED 04/04/2014 11:58 EDT ECG REPORT - SCANNED 04/04/2014 11:56 EDT DIFFERENTIAL Routine 04/01/2014 5:50 EDT PTT Routine 04/01/2014 5:50 EDT COMPLETE BLOOD COUNT Routine 04/01/2014 5:50 EDT COMPLETE BLOOD COUNT AND DIFFERENTIAL Routine 04/01/2014 5:50 EDT BUN Routine 04/01/2014 5:50 EDT CREATININE Routine 04/01/2014 5:50 EDT CK MB WITH TOTAL CK Routine 04/01/2014 5 :50 EDT ELECTROLYTES Routine 04/01/2014 5:50 EDT CK MB WITH TOTAL CK Routine 03/31/2014 2 2:14 EDT TROPONIN I Routine 03/31/2014 14:32 EDT CK MB WITH TOTAL CK Routine 03/31/2014 1 4:32 EDT EKG 12-LEAD Routine 03/31/2014 13:30 EDT LEFT HEART CATH Routine 03/31/2014 12:15 EDT ECHOCARDIOGRAM Routine 03/31/2014 10:52 EDT EKG 12-LEAD STAT 03/31/2014 7:53 EDT TROPONIN I Routine 03/31/2014 6:43 EDT DIFFERENTIAL Routine 03/31/2014 6:43 EDT PTT Routine 03/31/2014 6:43 EDT COMPLETE BLOOD COUNT Routine 03/31/2014 6:43 EDT COMPLETE BLOOD COUNT AND DIFFERENTIAL Routine 03/31/2014 6:43 EDT BUN Routine 03/31/2014 6:43 EDT HEMOGLOBIN A1C Routine 03/31/2014 6:43 EDT CREATININE Routine 03/31/2014 6:43 EDT CK MB WITH TOTAL CK Routine 03/31/2014 6 :43 EDT LIPID PROFILE (INCLUDES CHOLESTEROL, TRIGLYCERIDES, HDL, LDL) Routine 03/31/2014 6:43 EDT ELECTROLYTES Routine 03/31/2014 6:43 EDT COMPLETE BLOOD COUNT Routine 03/30/2014 22:23 EDT INPATIENT ADD-ON STAT 03/30/2014 22:0 0 EDT TROPONIN I STAT 03/30/2014 21:01 EDT PTT STAT 03/30/2014 21:01 EDT PROTIME STAT 03/30/2014 21:01 EDT BUN STAT 03/30/2014 21:01 EDT CREATININE STAT 03/30/2014 21:01 EDT CK MB WITH TOTAL CK STAT 03/30/2014 2 1:01 EDT ELECTROLYTES STAT 03/30/2014 21:01 EDT documented in this encounter Results * INVASIVE CARDIOLOGY REPORT-SCANNED (09/26/2015 9:34 EST) 09/26/2015 9:34 EST Scan 2 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 Shovel Oiler PROCEDURE/MINOR SHAYY GICAL ORDERABLES * ECG REPORT - SCANNED (04/06/2014 13:00 EDT) 04/06/2014 13:0 0 EDT Scan 2 Stripping Shovel Oiler PROCEDURE/MINOR SHAYY GICAL ORDERABLES * ECG REPORT - SCANNED (04/06/2014 13:00 EDT) 04/06/2014 13:0 0 EDT Scan 2 Stripping Shovel Oiler PROCEDURE/MINOR SHAYY GICAL ORDERABLES * INVASIVE CARDIOLOGY REPORT-SCANNED (04/06/2014 13:00 EDT) 04/06/2014 13:0 0 EDT Scan 2 Stripping Shovel Oiler PROCEDURE/MINOR SHAYY GICAL ORDERABLES * ECG REPORT - SCANNED (04/05/2014 7:12 EDT) 04/05/2014 7:12 EDT Scan 2 Stripping Shovel Oiler PROCEDURE/MINOR SHAYY GICAL ORDERABLES * ECG REPORT - SCANNED (04/04/2014 11:58 EDT) 04/04/2014 11:5 8 EDT Scan 2 Stripping Shovel Oiler PROCEDURE/MINOR SHAYY GICAL ORDERABLES * ECG REPORT - SCANNED (04/04/2014 11:56 EDT) 04/04/2014 11:5 6 EDT Scan 2 Stripping Shovel Oiler PROCEDURE/MINOR SHAYY GICAL ORDERABLES * (ABNORMAL) DIFFERENTIAL (04/01/2014 5:50 EDT) % Neutrophils 81.4(H) 45.5 - 79.7 % [facility] % Lymphocytes 9.9(L) 15.0 - 46.8 % [facility] % Monocytes 7.2 1.8 - 12.0 % [facility] % Eosinophils 1.2 0.6 - 6.9 % [facility] % Basophils 0.3 0.2 - 1.4 % [facility] ABS Neutrophils 9.12(H) 2.20 - 8.85 K/cmm [facility] ABS Lymphs 1.11 1.09 - 3.30 K/cmm [facility] ABS Monocytes 0.80 0.1 - 0.8 K/cmm [facility] ABS Eosinophils 0.13 0.03 - 0.61 K/cmm [facility] ABS Basophils 0.03 0.01 - 0.11 K/cmm [facility] Type of Diff: Automated [facility] 04/01/2014 5:50 EDT 04/01/2014 6:36 EDT Shahid Rayo MD HEMATOLOGY & PF4 ORD ERABLES [facility] [address] [place] [address] * HEMAGRAM (04/01/2014 5:50 EDT) WBC 11.20 4.0 - 12.4 K/cmm [facility] RBC 4.40 3.86 - 5.04 M/cmm [facility] Hemoglobin 12.6 11.6 - 15.2 gm/dl [facility] HCT 37.1 34.9 - 44.4 % [facility] MCV 84 81 - 98 fl [facility] MCH 28.7 26.7 - 33.3 pg [facility] MCHC 34.0 32.1 - 35.9 gm/dl [facility] PLT 218 141 - 320 K/cmm [facility] RDW-CV 14.3 11.7 - 14.6 % [facility] 04/01/2014 5:50 EDT 04/01/2014 6:36 EDT Shahid Rayo MD HEMATOLOGY & PF4 ORD ERABLES Performing Organization Address [facility] de Phone Number [facility] [address] [place] [address] * PTT (04/01/2014 5:50 EDT) PTT 27 26 - 37 secs [facility] Comment:Therapeutic Heparin range: 65-100 seconds Blood specimen (specimen) 04/01/2014 5:50 EDT 04/01/2014 6:36 EDT Shahid Rayo MD HEMATOLOGY & PF4 ORD ERABLES Performing Organization Address [facility] Phone Number [facility] [address] [place] [address] * CREATININE (04/01/2014 5:50 EDT) Creatinine 0.69 0.52 - 1.04 mg/dl [facility] GFR, Calculated >60 >60 ml/min/1.7 3m2 [facility] Blood specimen (specimen) 04/01/2014 5:50 EDT 04/01/2014 6:36 EDT Shahid Rayo MD CHEMISTRY & BLOOD GA S ORDERABLES Performing Organization Address [facility] de Phone Number [facility] [address] [place] [address] * BUN (04/01/2014 5:50 EDT) BUN 10 10 - 26 mg/dl [facility] Blood specimen (specimen) 04/01/2014 5:50 EDT 04/01/2014 6:36 EDT Shahid Rayo MD CHEMISTRY & BLOOD GA S ORDERABLES Performing Organization Address [facility] Co de Phone Number [facility] [address] [place] [address] * ELECTROLYTES (04/01/2014 5:50 EDT) Sodium 138 136 - 145 mEq/L [facility] Potassium 4.2 3.5 - 5.0 mEq/L [facility] Chloride 107 96 - 110 mEq/L [facility] CO2 24 24 - 32 mEq/L [facility] Blood specimen (specimen) 04/01/2014 5:50 EDT 04/01/2014 6:36 EDT Shahid Rayo MD CHEMISTRY & BLOOD GA S ORDERABLES Performing Organization Address [facility] Co de Phone Number [facility] [address] [place] [address] * CK MB WITH TOTAL CK (04/01/2014 5:50 EDT) CK 35 30 - 135 U/L [facility] MB 1.58 <2.95 ng/ml [facility] Blood specimen (specimen) 04/01/2014 5:50 EDT 04/01/2014 6:36 EDT Yesy Manuel NP CHEMISTRY & BLOOD GA S ORDERABLES Performing Organization Address [facility] Co de Phone Number [facility] [address] [place] [address] * CK MB WITH TOTAL CK (03/31/2014 22:14 EDT) CK 42 30 - 135 U/L [facility] MB 1.72 <2.95 ng/ml [facility] Blood specimen (specimen) 03/31/2014 22:14 EDT 03/31/2014 22:19 EDT Shahid Rayo MD CHEMISTRY & BLOOD GA S ORDERABLES Performing Organization Address City/[facility]/ZIP Co de Phone Number [facility] [address] [place] [address] * (ABNORMAL) TROPONIN I (03/31/2014 14:32 EDT) Troponin I (ng/mL) 0.136(H) <0.034 ng/ml [facility] Blood specimen (specimen) 03/31/2014 14:32 EDT 03/31/2014 15:09 EDT Shahid Rayo MD CHEMISTRY & BLOOD ME S ORDERABLES Performing Organization Address [facility] de Phone Number [facility] [address] [place] [address] * CK MB WITH TOTAL CK (03/31/2014 14:32 EDT) CK 62 30 - 135 U/L [facility] MB 2.04 <2.95 ng/ml [facility] Blood specimen (specimen) 03/31/2014 14:32 EDT 03/31/2014 15:09 EDT Shaihd Rayo MD CHEMISTRY & BLOOD GA S ORDERABLES Performing Organization Address [facility] de Phone Number [facility] [address] [place] [address] * EKG 12-LEAD (03/31/2014 13:30 EDT) 03/31/2014 13:3 0 EDT Narrative [facility] EKG - 04/04/2014 7:56 EDT ?[facility] ? Test Date: ?2014-03-31 Pat Name: ? ISA RO ?Department: ?? [facility] ? Room: ? MW511 Gender: ? 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 [id number] : ?1965 ? 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 Reading MD: ?? BRYAN PURDY MD ? Measurements Intervals ?Union ? Rate: ? 50 ? P: ?57 [place]: ? 154 ?QRS: ?29 QRSD: ? 90 ? T: ?38 QT: ? 463 ? QTc: ?426 ? Interpretive Statements SINUS BRADYCARDIA Compared to ECG 03/31/2014 07:53:41 No significant changes I reviewed the tracing and agreed or edited the report. Electronically Signed On 04-04-14 07:56:42 EDT by BRYAN PURDY MD. 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 ElectronicallySigned On 04-04-14 07:56:42 EDT by BRYAN PURDY MD. Yesy Manuel NP CARDIAC ECG ORDERABL ES [facility] EKG * LEFT HEART CATH (03/31/2014 12:15 EDT) Anatomical Region Laterality Modality Other 03/31/2014 12:1 5 EDT Narrative 03/31/2014 13:08 EDT Cardiology [address] [place] [address] Catheterization Laboratory Study Patient: Isa Ro ? Study Date: ?03/31/2014 ? Accession #: ? [id number] : ? 1965 Referring Physician: Dilip Mahajan Jr., MD Referring Physician: Pretty Avery Diagnostic Attending: Dilip Parnell Interventional Attending: ?Dilip Liang Diagnostic Fellow: Chun Nielsen Interventional Fellow: Yesy Manuel ATTESTATION: Dr. Dilip Mahajan was present and supervising for the entire procedure, I, Dr. Dilip Mahajan have reviewed and agree with the findings of this report. PROCEDURE PLAN: Based on the diagnostic study percutaneous coronary intervention is indicated. RESEARCH STUDY: Patient is not enrolled in any research studies. IMPRESSIONS: 1. Severe coronary artery disease, predominantly involving the LAD. 2. Non ST-elevated myocardial infarction (NSTEMI), in the territory of the left ?? anterior descending coronary artery. The culprit lesion was identified and ?? reperfusion was successfully achieved. SUMMARY: 1. HPI and indications: Jtr-MC-zzmghopw myocardial infarction. 2. LAD: Proximal vessel lesion: There is a discrete, 85%de tita stenosis. This ?? lesion is eccentric. There is ADALID grade 3 flow (brisk flow) across the ?? lesion. The lesion is significant by visual estimate. The distal vessel ?? supplies a large vascular territory. The lesion is a likely culprit for the ?? patient's recent myocardial infarction and an ACC/AHA type B1 moderate risk ?? lesion for intervention, with 1 adverse characteristic. The lesion was ?? stented using a zotarolimus-eluting stent (see 1st lesion intervention), ?? jailing the first septal. Following intervention, there is a residual 0% ?? stenosis with an excellent angiographic appearance and ADALID grade 3 flow ?? (brisk flow). RECOMMENDATIONS: 1. The patient should undergo coronary percutaneous coronary intervention. 2. Patient management should include risk factor modification and a cardiac ?? rehabilitation program. The patient was counseled regarding the importance of ?? adherence to the prescribed antiplatelet therapy and a low fat diet. 3. Add tricagrelor (Brilinta), loading dose 180mgPO, standing dose 90mgPObid, ?? for 12mon. 4. Continue aspirin, at 81mgPOdaily, indefinitely. HISTORY: Idr-EI-bvaqjtfo myocardial infarction. ??Functional status: ?? CCS class IV (angina at rest or with any physical activity). ??Risk factors: ??Family history of coronary artery disease. Hypertension. Dyslipidemia. ??Medications: ??Beta blockers. Anti-anginal therapy. ??Aspirin. ??Allergies: ??No known allergies. ?? LABS, PRIOR TESTS, PROCEDURES AND SURGERY: Serum creatinine (current admission) of 0.7 mg/dl. ??Prothrombin time (PT) of 11.1 sec. ??Hematocrit of 36.5 %. ??Platelet count of 220 th/ul. ??Serum potassium (K) of 3.7 mEq/l. ??Blood urea nitrogen of 13 mg/dl. ??Hemoglobin (pre- procedure) of 12.4 g/dl. ??International normalized ratio (INR) of 1. STUDY DATA: Study status: ??Cardiac cath: urgent. Percutaneous coronary intervention: urgent. Location: ??Catheterization laboratory. Sex: female. Patient is 49yr old. Weight: 51.7kg. Procedures performed: ?Right radial artery access. ?Left coronary angiography. ?Right coronary angiography. ?Lesion intervention: Percutaneous intervention on the 85% de tita stenosis in the proximal LAD. Stent placement. PROCEDURE: 1. Initial setup. The patient was brought to the laboratory in the fasting ?? state. A baseline ECG was recorded. Surface ECG leads, automatic cuff blood ?? pressure measurements, and pulse oximetric signals were monitored. 2. Skin preparation. The planned puncture sites were prepped with chlorhexidine ?? and draped in the usual sterile manner. 3. Right radial artery access. A 5Fr/10 cm Terumo Lima Sheath Radial sheath was ?? advanced into the vessel. 4. Selective left coronary angiography. A 5FR/100cm Launcher EBU 3.0 catheter ?? was advanced into the left coronary vessel ostium under fluoroscopic ?? guidance. Contrast was injected by hand. Images were obtained in multiple ?? projections. 5. Selective right coronary angiography. A 5 FR Kodi catheter was advanced into ?? the right coronary vessel ostium under fluoroscopic guidance. Contrast was ?? injected by hand. Images were obtained in multiple projections. 6. Right radial artery hemostasis. Mechanical compression was applied. 1st lesion intervention: Percutaneous intervention on the 85% de tita stenosis in the proximal LAD. 1. Vessel setup was performed. A 5FR/100cm Launcher EBU 3.0 guiding catheter was ?? advanced into the vessel. 2. Vessel setup was performed. A 180 Asahi Prowater wire was used to cross the ?? lesion. 3. Stent placement. A 2.5mm (D) x 12mm (L), Resolute stent was advanced across ?? the lesion and deployed with a single inflation and a maximum pressure of ?? 15atm. STUDY COMPLETION: The estimated blood loss was 10ml. All catheters inserted during the procedure were removed. The patient tolerated the procedure well and was discharged from the lab. There were no complications. ??Administered medications: ?? Heparin, infusion, infusion rate of 710units/hr. ??Bivalirudin BOLUS, 0.75mg/kg. Bivalirudin DRIP, infusion rate of 1.75mg/kg/hr. ??Nitroglycerin, 200mcg, into the coronary artery. ??Metoprolol (Lopressor, Toprol), 5mg. ??Midazolam, for a total dose of 3mg. ??Fentanyl, for a total dose of 175mcg. ??Contrast: ?? Isovue 370 125ml (total dose). ??Fluoroscopy time: ??6.8min. ??Fluoroscopy dose: ??38.2cGy. ?? CORONARY ARTERIES: The coronary circulation is right dominant. Left main: ??Normal. LAD: ??Proximal vessel lesion: There is a discrete, 85%de tita stenosis. This lesion is eccentric. There is ADALID grade 3 flow (brisk flow) across the lesion. The lesion is significant by visual estimate. The distal vessel supplies a large vascular territory. The lesion is a likely culprit for the patient's recent myocardial infarction and an ACC/AHA type B1 moderate risk lesion for intervention, with 1 adverse characteristic. The lesion was stented using a zotarolimus-eluting stent (see 1st lesion intervention), jailing the first septal. Following intervention, there is a residual 0% stenosis with an excellent angiographic appearance and ADALID grade 3 flow (brisk flow). There were no site complications. Left circumflex: ??Normal. Right coronary: ??Normal. HEMODYNAMICS: End diastolic pressure in the left ventricle is normal. Pressure measurements across the aortic valve show no evidence of stenosis. + + + Stage description ? Condition1:Condition 1 - + + + LV pressure s/ed ? 129/14 ? + + + Arterial pressure s/d (m) 134/72 (98) ? + + + * Electronically signed by Dilip Mahajan Jr., MD 2014-03-31 13:08 Procedure Note 03/31/[address] [place] [id number] Catheterization Laboratory Study Patient: Isa Ro Study Date:03/31/2014 : 1965 Referring Physician: Dilip Mahajan Jr., MD Referring Physician: Pretty Avery Diagnostic Attending: Dilip Mahajan Interventional Attending: Dilip Mahajan Diagnostic Fellow: Chun Nielsen Interventional Fellow: Yesy Manuel ATTESTATION: Dr. Dilip Mahajan was present and supervising for the entire procedure, I,Dr. Dilip Mahajan have reviewed and agree with the findings of this report. PROCEDURE PLAN: Based on the diagnostic study percutaneous coronary intervention isindicated. RESEARCH STUDY: Patient is not enrolled in any research studies. IMPRESSIONS: 1. Severe coronary artery disease, predominantly involving the LAD. 2. Non ST-elevated myocardial infarction (NSTEMI), in the territory of theleft anterior descending coronary artery. The culprit lesion was identifiedand reperfusion was successfully achieved. SUMMARY: 1. HPI and indications: Ruy-FC-jovealxr myocardial infarction. 2. LAD: Proximal vessel lesion: There is a discrete, 85%de tita stenosis.This lesion is eccentric. There is ADALID grade 3 flow (brisk flow) across the lesion. The lesion is significant by visual estimate. The distal vessel supplies a large vascular territory. The lesion is a likely culprit forthe patient's recent myocardial infarction and an ACC/AHA type B1 moderaterisk lesion for intervention, with 1 adverse characteristic. The lesion was stented using a zotarolimus-eluting stent (see 1st lesionintervention), jailing the first septal. Following intervention, there is a residual0% stenosis with an excellent angiographic appearance and ADALID grade 3flow (brisk flow). RECOMMENDATIONS: 1. The patient should undergo coronary percutaneous coronary intervention. 2. Patient management should include risk factor modification and acardiac rehabilitation program. The patient was counseled regarding theimportance of adherence to the prescribed antiplatelet therapy and a low fat diet. 3. Add tricagrelor (Brilinta), loading dose 180mgPO, standing [id number], for 12mon. 4. Continue aspirin, at 81mgPOdaily, indefinitely. HISTORY: Msy-RO-umrzkfsr myocardial infarction. Functional status: CCS class IV (angina at rest or with any physical activity). Risk factors: Familyhistory of coronary artery disease. Hypertension. Dyslipidemia. Medications:Beta blockers. Anti-anginal therapy. Aspirin. Allergies: No known allergies. LABS, PRIOR TESTS, PROCEDURES AND SURGERY: Serum creatinine (current admission) of 0.7 mg/dl. Prothrombin time (PT)of 11.1 sec. Hematocrit of 36.5 %. Platelet count of 220 th/ul. Serumpotassium (K) of 3.7 mEq/l. Blood urea nitrogen of 13 mg/dl. Hemoglobin(pre-procedure) of 12.4 g/dl. International normalized ratio (INR) of 1. STUDY DATA: Study status: Cardiac cath: urgent. Percutaneous coronary intervention:urgent. Location: Catheterization laboratory. Sex: female. Patient is 49yr old. Weight: 51.7kg. Procedures performed: Right radial artery access. Left coronary angiography. Right coronary angiography. Lesionintervention: Percutaneous intervention on the 85% de tita stenosis in the proximal LAD. Stent placement. PROCEDURE: 1. Initial setup. The patient was brought to the laboratory in the fasting state. A baseline ECG was recorded. Surface ECG leads, automatic cuffblood pressure measurements, and pulse oximetric signals were monitored. 2. Skin preparation. The planned puncture sites were prepped withchlorhexidine and draped in the usual sterile manner. 3. Right radial artery access. A 5Fr/10 cm Terumo Lima Sheath Radialsheath was advanced into the vessel. 4. Selective left coronary angiography. A 5FR/100cm Launcher EBU 3.0catheter was advanced into the left coronary vessel ostium under fluoroscopic guidance. Contrast was injected by hand. Images were obtained inmultiple projections. 5. Selective right coronary angiography. A 5 FR Kodi catheter wasadvanced into the right coronary vessel ostium under fluoroscopic guidance. Contrastwas injected by hand. Images were obtained in multiple projections. 6. Right radial artery hemostasis. Mechanical compression was applied. 1st lesion intervention: Percutaneous intervention on the 85% de tita stenosis in the proximal LAD. 1. Vessel setup was performed. A 5FR/100cm Launcher EBU 3.0 guidingcatheter was advanced into the vessel. 2. Vessel setup was performed. A 180 ThinkVine wire was used to crossthe lesion. 3. Stent placement. A 2.5mm (D) x 12mm (L), Resolute stent was advancedacross the lesion and deployed with a single inflation and a maximum pressureof 15atm. STUDY COMPLETION: The estimated blood loss was 10ml. All catheters inserted during theprocedure were removed. The patient tolerated the procedure well and was dischargedfrom the lab. There were no complications. Administered medications:Heparin, infusion, infusion rate of 710units/hr. Bivalirudin BOLUS, 0.75mg/kg. Bivalirudin DRIP, infusion rate of 1.75mg/kg/hr. Nitroglycerin, 200mcg,into the coronary artery. Metoprolol (Lopressor, Toprol), 5mg. Midazolam, fora total dose of 3mg. Fentanyl, for a total dose of 175mcg. Contrast:Isovue 370 125ml (total dose). Fluoroscopy time: 6.8min. Fluoroscopy dose:38.2cGy. CORONARY ARTERIES: The coronary circulation is right dominant. Left main: Normal. LAD: Proximal vessel lesion: There is a discrete, 85%de tita stenosis.This lesion is eccentric. There is ADALDI grade 3 flow (brisk flow) across thelesion. The lesion is significant by visual estimate. The distal vessel supplies alarge vascular territory. The lesion is a likely culprit for the patient'srecent myocardial infarction and an ACC/AHA type B1 moderate risk lesion for intervention, with 1 adverse characteristic. The lesion was stented usinga zotarolimus-eluting stent (see 1st lesion intervention), jailing the first septal. Following intervention, there is a residual 0% stenosis with an excellent angiographic appearance and ADALID grade 3 flow (brisk flow).There were no site complications. Left circumflex: Normal. Right coronary: Normal. HEMODYNAMICS: End diastolic pressure in the left ventricle is normal. Pressuremeasurements across the aortic valve show no evidence of stenosis. + + + Stage description Condition1:Condition 1 - + + + LV pressure s/ed 129/14 + + + Arterial pressure s/d (m) 134/72 (98) + + + * Electronically signed by Dilip Mahajan Jr., MD 2014-03-31 13:08 Shahid Rayo MD CARDIAC CATH ORDERAB LES * ECHOCARDIOGRAM (03/31/2014 10:52 EDT) Anatomical Region Laterality Modality Other 03/31/2014 10:5 2 EDT Narrative 03/31/2014 11:13 EDT *Interpreting Group:* *[facility]* [address] [place] [address] *STUDY CONCLUSIONS* Summary: ?? Left ventricle: The cavity size was normal. Wall thickness was normal. Systolic function was normal. The estimated ejection fraction was 60-65%. Wall motion was normal; there were no diagnostic regional wall motion abnormalities. Left ventricular diastolic function parameters were normal. ?? *PATIENT PRESENTATION* Height: ? 157.5cm (62in ) S/D Pressure: 119 / 63 Weight: ? 51.7kg (113.8lb ) BSA: ?1.5m^2 Test start time: ??10:15 AM. Test stop time: ??10:37 AM. ADMITTING ?Waqas Yao MD ATTENDING ?Waqas Yao MD REFERRING ?Pretty Avery* VISUAL MANAGER ??Tracey Black PERFORMING ?? [facility], FELLOW ? Abiodun Velez ORDERING ? Joel Parker REFERRING ?Joel Parker j *PROCEDURE DATA* Procedure information: ??This study was interpreted by [facility] at [facility]. ??Study status: ??Routine. Transthoracic echocardiography. ??M-mode, complete 2D, complete spectral Doppler, and color Doppler. A Transthoracic Echocardiogram was performed. Scanning was performed from the parasternal, apical, subcostal, and suprasternal notch acoustic windows. Images were obtained using a Shubham [id number] 3 cardiac ultrasound machine. Image quality was adequate. ??Study completion: ??The patient tolerated the procedure well. *INDICATIONS AND HISTORY* Indications: ?? [place] - nontransmural - acute 410.71. *CARDIAC ANATOMY* Left ventricle: ??The cavity size was normal. Wall thickness was normal. Systolic function was normal. The estimated ejection fraction was 60-65%. Wall motion was normal; there were no diagnostic regional wall motion abnormalities. Left ventricular diastolic function parameters were normal. Aortic valve: ?? Probably trileaflet; normal thickness leaflets. Mobility was not restricted. ??Doppler: ??Transvalvular velocity was within the normal range. There was no stenosis. ??No regurgitation. Aorta: ??Aortic root: The aortic root was normal in size. Mitral valve: ?? Structurally normal valve. ?? Mobility was not restricted. Doppler: ??Transvalvular velocity was within the normal range. There was no evidence for stenosis. ??Trivial regurgitation. ?Peak gradient: 3.3mm Hg (D). Left atrium: ??The atrium was normal in size. Right ventricle: ??The cavity size was normal. Wall thickness was normal. Systolic function was normal. Pulmonic valve: ?? Poorly visualized. ??Doppler: ??Transvalvular velocity was within the normal range. There was no evidence for stenosis. ??No regurgitation. Tricuspid valve: ?? Structurally normal valve. ?Doppler: ??Transvalvular velocity was within the normal range. There was no evidence for stenosis. ??Mild regurgitation. Pulmonary artery: ?? Pulmonary systolic pressure was within the normal range. Right atrium: ??The atrium was normal in size. Pericardium: ??There was no pericardial effusion. Systemic veins: Inferior vena cava: The vessel was normal in size; the respirophasic diameter changes were in the normal range (greater than or equal to 50%); findings are consistent with normal central venous pressure. *MEASUREMENT TABLES* 2D measurements ?Normal Left ventricle Area, ED, A4C ?23.5 cm^2 ?? 17.7-47.3 Area, ES, A4C ?10.8 cm^2 ?? 7.9-31.5 Fractional area change, A4C ?54 % ?--------- Area, ED, A2C ?25.9 cm^2 ?? --------- Area, ES, A2C ?13 cm^2 ?? 8.9-28.1 Fractional area change, A2C ?50 % ?33.7-69 Volume, ED, MOD, 1-plane ? 65 ml ? --------- Volume, ES, MOD, 1-plane ? 18 ml ? --------- Ejection fraction, MOD, 1-plane ?72 % ?--------- Stroke volume, MOD, 1-plane ?47 ml ? --------- Volume index, ED, MOD, 1-plane ? 43 ml/m^2 --------- Volume index, ES, MOD, 1-plane ? 12 ml/m^2 --------- Stroke index, MOD, 1-plane ? 31.2 ml/m^2 --------- Volume, ED, MOD, 2-plane ? 73 ml ? 55-101 Volume, ES, MOD, 2-plane ? 23 ml ? --------- Ejection fraction, MOD, 2-plane ?68 % ?--------- Stroke volume, MOD, 2-plane ?50 ml ? --------- Volume index, ED, MOD, 2-plane ? 49 ml/m^2 --------- Volume index, ES, MOD, 2-plane ? 15 ml/m^2 --------- Stroke index, MOD, 2-plane ? 33.2 ml/m^2 --------- Aorta Root diameter, ED ?28 mm ? --------- Ascending aorta anterior-posterior diameter, S ?? 25 mm ? --------- Left atrium Anterior-posterior dimension ? 27 mm ? --------- Anterior-posterior dimension index ? 1.79 cm/m^2 <2.2 Superior-inferior dimension, A4C ?*27 mm ? 29-53 ?? M-mode measurements ?Normal Left ventricle LV internal dimension, ED ?42 mm ? 37-56 LV internal dimension, ES ?24 mm ? --------- Fractional shortening ?43 % ?29- 45 LV posterior wall, ED ? 7 mm ? 6 -11 Septal/posterior wall ratio, ED ? 0.9 ?--------- Relative wall thickness, ED ? 0.3 ?<0.45 Volume, ED, Teichholz ?78.6 ml ? --------- Volume, ES, Teichholz ?20.2 ml ? --------- Ejection fraction, Teichholz ? 74.3 % ?64-83 Volume index, ED, Teichholz ?52 ml/m^2 --------- Volume index, ES, Teichholz ?13 ml/m^2 --------- Wall mass ?77.4 g ?--------- Wall mass index ?51.4 g/m^2 ??--------- Mass/height ?0.49 g/cm ?? --------- Ventricular septum Septal thickness, ED ?6 mm ? --------- ?? Doppler measurements ? Normal Left ventricle Ea, lateral annulus, tissue Doppler ?8.44 cm/s ?? --------- E/Ea, lateral annulus, tissue Doppler ?10.8 ?--------- Mitral valve Peak E-wave velocity ? 90.8 cm/s ?? --------- Peak A-wave velocity ? 58.7 cm/s ?? --------- Deceleration time ? 190 ms ? 150- 230 Peak gradient, D ?3.3 mm Hg ??--------- Peak E/A ratio ?1.5 ?--------- Legend: Mean values are shown as u=mean value. Asterisk (*) adrian values outside specified normal range. Electronically signed by Waqas Torres MD 03/31/2014 11:13 Procedure Note 03/31/2014 *Interpreting Group:* *[facility]* [address] [place] [address] *STUDY CONCLUSIONS* Summary: Left ventricle: The cavity size was normal. Wall thickness was normal. Systolic function was normal. The estimated ejection fraction was 60-65%. Wall motion was normal; there were no diagnostic regional wallmotion abnormalities. Left ventricular diastolic function parameters were normal. *PATIENT PRESENTATION* Height: 157.5cm (62in ) S/D Pressure: 119 / 63 Weight: 51.7kg (113.8lb ) BSA: 1.5m^2 Test start time: 10:15 AM. Test stop time: 10:37 AM. ADMITTING Waqas Yao MD ATTENDING Waqas Yao MD REFERRING Pretty Avery* VISUAL MANAGER Tracey Black PERFORMING Fa, FELLOW Abiodun Velez ORDERING Joel Parker REFERRING Joel Parker j *PROCEDURE DATA* Procedure information: This study was interpreted by [facility]. Study status: Routine.Transthoracic echocardiography. M-mode, complete 2D, complete spectral Doppler, andcolor Doppler. A Transthoracic Echocardiogram was performed. Scanning wasperformed from the parasternal, apical, subcostal, and suprasternal notch acoustic windows. Images were obtained using a Shubham [id number] 3 cardiac ultrasoundmachine. Image quality was adequate. Study completion: The patient tolerated the procedure well. *INDICATIONS AND HISTORY* Indications: [place] - nontransmural - acute 410.71. *CARDIAC ANATOMY* Left ventricle: The cavity size was normal. Wall thickness was normal.Systolic function was normal. The estimated ejection fraction was 60-65%. Wallmotion was normal; there were no diagnostic regional wall motion abnormalities. Left ventricular diastolic function parameters were normal. Aortic valve: Probably trileaflet; normal thickness leaflets. Mobilitywas not restricted. Doppler: Transvalvular velocity was within the normal range.There was no stenosis. No regurgitation. Aorta: Aortic root: The aortic root was normal in size. Mitral valve: Structurally normal valve. Mobility was not restricted. Doppler: Transvalvular velocity was within the normal range. There was no evidence for stenosis. Trivial regurgitation. Peak gradient: 3.3mm Hg(D). Left atrium: The atrium was normal in size. Right ventricle: The cavity size was normal. Wall thickness was normal. Systolic function was normal. Pulmonic valve: Poorly visualized. Doppler: Transvalvular velocity was within the normal range. There was no evidence for stenosis. Noregurgitation. Tricuspid valve: Structurally normal valve. Doppler: Transvalvular velocity was within the normal range. There was no evidence for stenosis.Mild regurgitation. Pulmonary artery: Pulmonary systolic pressure was within the normalrange. Right atrium: The atrium was normal in size. Pericardium: There was no pericardial effusion. Systemic veins: Inferior vena cava: The vessel was normal in size; the respirophasicdiameter changes were in the normal range (greater than or equal to 50%); findingsare consistent with normal central venous pressure. *MEASUREMENT TABLES* 2D measurements Normal Left ventricle Area, ED, A4C 23.5 cm^2 17.7-47.3 Area, ES, A4C 10.8 cm^2 7.9-31.5 Fractional area change, A4C 54 % --------- Area, ED, A2C 25.9 cm^2 --------- Area, ES, A2C 13 cm^2 8.9-28.1 Fractional area change, A2C 50 % 33.7-69 Volume, ED, MOD, 1-plane 65 ml --------- Volume, ES, MOD, 1-plane 18 ml --------- Ejection fraction, MOD, 1-plane 72 % --------- Stroke volume, MOD, 1-plane 47 ml --------- Volume index, ED, MOD, 1-plane 43 ml/m^2 --------- Volume index, ES, MOD, 1-plane 12 ml/m^2 --------- Stroke index, MOD, 1-plane 31.2 ml/m^2 --------- Volume, ED, MOD, 2-plane 73 ml 55-101 Volume, ES, MOD, 2-plane 23 ml --------- Ejection fraction, MOD, 2-plane 68 % --------- Stroke volume, MOD, 2-plane 50 ml --------- Volume index, ED, MOD, 2-plane 49 ml/m^2 --------- Volume index, ES, MOD, 2-plane 15 ml/m^2 --------- Stroke index, MOD, 2-plane 33.2 ml/m^2 --------- Aorta Root diameter, ED 28 mm --------- Ascending aorta anterior-posterior diameter, S 25 mm --------- Left atrium Anterior-posterior dimension 27 mm --------- Anterior-posterior dimension index 1.79 cm/m^2 <2.2 Superior-inferior dimension, A4C *27 mm 29-53 M-mode measurements Normal Left ventricle LV internal dimension, ED 42 mm 37-56 LV internal dimension, ES 24 mm --------- Fractional shortening 43 % 29-45 LV posterior wall, ED 7 mm 6 -11 Septal/posterior wall ratio, ED 0.9 --------- Relative wall thickness, ED 0.3 <0.45 Volume, ED, Teichholz 78.6 ml --------- Volume, ES, Teichholz 20.2 ml --------- Ejection fraction, Teichholz 74.3 % 64-83 Volume index, ED, Teichholz 52 ml/m^2 --------- Volume index, ES, Teichholz 13 ml/m^2 --------- Wall mass 77.4 g --------- Wall mass index 51.4 g/m^2 --------- Mass/height 0.49 g/cm --------- Ventricular septum Septal thickness, ED 6 mm --------- Doppler measurements Normal Left ventricle Ea, lateral annulus, tissue Doppler 8.44 cm/s --------- E/Ea, lateral annulus, tissue Doppler 10.8 --------- Mitral valve Peak E-wave velocity 90.8 cm/s --------- Peak A-wave velocity 58.7 cm/s --------- Deceleration time 190 ms 150-230 Peak gradient, D 3.3 mm Hg --------- Peak E/A ratio 1.5 --------- Legend: Mean values are shown as u=mean value. Asterisk (*) adrian values outside specified normal range. Electronically signed by Waqas Torres MD 03/31/2014 11:13 Joel Parker MD CARDIAC ECHO ORDERA QUE * EKG 12-LEAD (03/31/2014 7:53 EDT) 03/31/2014 7:53 EDT Narrative FA EKG - 04/03/2014 8:38 EDT ?[facility] ? Test Date: ?2014-03-31 Pat Name: ? ISA SHEPHERDISAI ?Department: ?? [facility] ? Room: ? MW511 Gender: ? 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 Requested By: WAQAS YAO MD Order Number: [id number] ? Reading MD: ?? LYDIA DALTON MD ? Measurements Intervals ?Union ? Rate: ? 59 ? P: ?58 [place]: ? 154 ?QRS: ?41 QRSD: ? 88 ? T: ?43 QT: ? 438 ? QTc: ?435 ? Interpretive Statements SINUS BRADYCARDIA Within Normal Limits Automated Interpretation. ??Physician Interpretation to follow. Compared to ECG 03/30/2014 20:18:10 Sinus bradycardia now present I reviewed the tracing and agreed or edited the report. Electronically Signed On 04-03-14 08:38:21 EDT by LYDIA DALTON MD. 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 Physician Interpretation to follow. Compared to ECG 03/30/2014 20:18:10 Sinus bradycardia now present I reviewed the tracing and agreed or edited the report. ElectronicallySigned On 04-03-14 08:38:21 EDT by LYDIA DALTON MD. Waqas Yao MD CARDIAC ECG ORDER [facility] EKG * (ABNORMAL) DIFFERENTIAL (03/31/2014 6:43 EDT) % Neutrophils 77.5 45.5 - 79.7 % [facility] % Lymphocytes 12.9(L) 15.0 - 46.8 % [facility] % Monocytes 7.6 1.8 - 12.0 % [facility] % Eosinophils 1.5 0.6 - 6.9 % [facility] % Basophils 0.5 0.2 - 1.4 % [facility] ABS Neutrophils 6.37 2.20 - 8.85 K/cmm [facility] ABS Lymphs 1.06(L) 1.09 - 3.30 K/cmm [facility] ABS Monocytes 0.63 0.1 - 0.8 K/cmm [facility] ABS Eosinophils 0.12 0.03 - 0.61 K/cmm [facility] ABS Basophils 0.04 0.01 - 0.11 K/cmm [facility] Type of Diff: Automated [facility] 03/31/2014 6:43 EDT 03/31/2014 7:01 EDT Shahid Rayo MD HEMATOLOGY & PF4 ORD ERABLES Performing Organization Address City/[facility]/ZIP Co de Phone Number [facility] [address] [place] [address] * HEMAGRAM (03/31/2014 6:43 EDT) Pathologist [facility] WBC 8.21 4.0 - 12.4 K/cmm [facility] RBC 4.44 3.86 - 5.04 M/cmm [facility] Hemoglobin 13.0 11.6 - 15.2 gm/dl [facility] HCT 37.4 34.9 - 44.4 % [facility] MCV 84 81 - 98 fl [facility] MCH 29.3 26.7 - 33.3 pg [facility] MCHC 34.8 32.1 - 35.9 gm/dl [facility] PLT 217 141 - 320 K/cmm [facility] RDW-CV 14.3 11.7 - 14.6 % [facility] 03/31/2014 6:43 EDT 03/31/2014 7:01 EDT Shahid Rayo MD HEMATOLOGY & PF4 ORD ERABLES Performing Organization Address City/[facility] Co de Phone Number [facility] [address] [place] [address] * (ABNORMAL) PTT (03/31/2014 6:43 EDT) Pathologist [facility] PTT 51(H) 26 - 37 secs [facility] Comment:Therapeutic Heparin range: 65-100 seconds Blood specimen (specimen) 03/31/2014 6:43 EDT 03/31/2014 7:01 EDT Shahid Rayo MD HEMATOLOGY & PF4 ORD ERABLES Performing Organization Address [facility] de Phone Number [facility] [address] [place] [address] * CREATININE (03/31/2014 6:43 EDT) Pathologist [facility] Creatinine 0.70 0.52 - 1.04 mg/dl [facility] GFR, Calculated >60 >60 ml/min/1.7 3m2 [facility] Blood specimen (specimen) 03/31/2014 6:43 EDT 03/31/2014 7:01 EDT Shahid Rayo MD CHEMISTRY & BLOOD GA S ORDERABLES Performing Organization Address [facility] de Phone Number [facility] [address] [place] [address] * BUN (03/31/2014 6:43 EDT) BUN 15 10 - 26 mg/dl [facility] Blood specimen (specimen) 03/31/2014 6:43 EDT 03/31/2014 7:01 EDT Shahid Rayo MD CHEMISTRY & BLOOD GA S ORDERABLES Performing Organization Address [facility] Phone Number [facility] [address] [place] [address] * ELECTROLYTES (03/31/2014 6:43 EDT) Sodium 139 136 - 145 mEq/L [facility] Potassium 4.2 3.5 - 5.0 mEq/L [facility] Chloride 107 96 - 110 mEq/L [facility] CO2 24 24 - 32 mEq/L [facility] Blood specimen (specimen) 03/31/2014 6:43 EDT 03/31/2014 7:01 EDT Shahid Rayo MD CHEMISTRY & BLOOD GA S ORDERABLES Performing Organization Address [facility] Phone Number [facility] [address] [place] [address] * LIPID PROFILE (INCLUDES CHOLESTEROL, TRIGLYCERIDES, HDL, LDL) (03/31/2014 6:43 EDT) Cholesterol 152 mg/dl [facility] Comment: Desirable:<200 Borderline High:200-239 High:>hh=486 Triglycerides 100 mg/dl [facility] Comment: Normal:<150 Borderline High:150-199 High:200-499 Very High:>pf=515 HDL 50 mg/dl [facility] Comment: Low:<40 Normal:40-60 Desirable: >60 LDL, Calculated 82 mg/dl [facility] Comment: Optimal:<100 Near Optimal:100-129 Borderline High:130-159 High:160-189 Very High:>yp=281 Chol/HDL Ratio 3.0 [facility] Fasting? Unknown [facility] Non HDL Cholesterol 102 mg/dl [facility] Comment: Desirable:<130 Borderline:130-159 High: 160-189 Very High: >nb=147 Blood specimen (specimen) 03/31/2014 6:43 EDT 03/31/2014 7:01 EDT Shahid Rayo MD CHEMISTRY & BLOOD GA S ORDERABLES Performing Organization Address [facility] Co de Phone Number [facility] [address] [place] [address] * (ABNORMAL) TROPONIN I (03/31/2014 6:43 EDT) Troponin I (ng/mL) 0.180(H) <0.034 ng/ml [facility] Blood specimen (specimen) 03/31/2014 6:43 EDT 03/31/2014 7:01 EDT Shahid Rayo MD CHEMISTRY & BLOOD GA S ORDERABLES Performing Organization Address [facility] Co de Phone Number [facility] [address] [place] [address] * CK MB WITH TOTAL CK (03/31/2014 6:43 EDT) CK 55 30 - 135 U/L [facility] MB 2.51 <2.95 ng/ml [facility] Blood specimen (specimen) 03/31/2014 6:43 EDT 03/31/2014 7:01 EDT Shahid Rayo MD CHEMISTRY & BLOOD GA S ORDERABLES Performing Organization Address [facility] Co de Phone Number [facility] [address] [place] [address] * HEMOGLOBIN A1C (03/31/2014 6:43 EDT) Hemoglobin A1C 5.5 % [facility] Comment: Reference Range: <5.7% Normal 5.7-6.4% Increased risk for diabetes =>6.5% Diagnostic for diabetes (if confirmed) The A1c goal for non adults in general is <7%. The A1c goal for selected patients may be significantly lower than 7% if this can be achieved without significant hypoglycemia or other adverse effects of treatment. Est Avg Glucose 111 mg/dl [facility] Comment: eAG represents the A1c result expressed as average glucose in mg/dl. Blood specimen (specimen) 03/31/2014 6:43 EDT 03/31/2014 7:01 EDT Shahid Rayo MD CHEMISTRY & BLOOD GA S ORDERABLES Performing Organization Address [facility] Co de Phone Number [facility] [address] [place] [address] * HEMAGRAM (03/30/2014 22:23 EDT) WBC 9.80 4.0 - 12.4 K/cmm [facility] RBC 4.32 3.86 - 5.04 M/cmm [facility] Hemoglobin 12.4 11.6 - 15.2 gm/dl [facility] HCT 36.5 34.9 - 44.4 % [facility] MCV 84 81 - 98 fl [facility] MCH 28.6 26.7 - 33.3 pg [facility] MCHC 33.8 32.1 - 35.9 gm/dl [facility] PLT 220 141 - 320 K/cmm [facility] RDW-CV 14.2 11.7 - 14.6 % [facility] Blood specimen (specimen) 03/30/2014 22:23 EDT 03/30/2014 22:28 EDT Waqas Yao MD HEMATOLOGY & PF4 ORDERABLES Performing Organization Address [facility] de Phone Number [facility] [address] [place] [address] * INPATIENT ADD-ON (03/30/2014 22:00 EDT) Pathologist [facility] Tests to be added HEMAGRAM [facility] Number for problems MW5 [facility] Accession number [id number] [facility] 03/30/2014 22:0 0 EDT 03/30/2014 22:10 EDT Shahid Rayo MD HEMATOLOGY & PF4 ORD ERABLES Performing Organization Address [facility] Co de Phone Number [facility] [address] [place] [address] * CK MB WITH TOTAL CK (03/30/2014 21:01 EDT) [facility] CK 59 30 - 135 U/L [facility] MB 2.26 <2.95 ng/ml [facility] Blood specimen (specimen) 03/30/2014 21:01 EDT 03/30/2014 21:10 EDT Shahid Ryao MD CHEMISTRY & BLOOD GA S ORDERABLES Performing Organization Address [facility] Co de Phone Number [facility] [address] [place] [address] * (ABNORMAL) TROPONIN I (03/30/2014 21:01 EDT) [facility] Troponin I (ng/mL) 0.179(H) <0.034 ng/ml [facility] Blood specimen (specimen) 03/30/2014 21:01 EDT 03/30/2014 21:10 EDT Shahid Rayo MD CHEMISTRY & BLOOD GA S ORDERABLES Performing Organization Address [facility] de Phone Number [facility] [address] [place] [address] * CREATININE (03/30/2014 21:01 EDT) [facility] Creatinine 0.74 0.52 - 1.04 mg/dl [facility] GFR, Calculated >60 >60 ml/min/1.7 3m2 [facility] Blood specimen (specimen) 03/30/2014 21:01 EDT 03/30/2014 21:10 EDT Shahid Rayo MD CHEMISTRY & BLOOD GA S ORDERABLES Performing Organization Address [facility] Phone Number [facility] [address] [place] [address] * BUN (03/30/2014 21:01 EDT) BUN 13 10 - 26 mg/dl [facility] Blood specimen (specimen) 03/30/2014 21:01 EDT 03/30/2014 21:10 EDT Shahid Rayo MD CHEMISTRY & BLOOD GA S ORDERABLES Performing Organization Address [facility] de Phone Number [facility] [address] [place] [address] * ELECTROLYTES (03/30/2014 21:01 EDT) Sodium 139 136 - 145 mEq/L [facility] Potassium 3.7 3.5 - 5.0 mEq/L [facility] Chloride 105 96 - 110 mEq/L [facility] CO2 24 24 - 32 mEq/L [facility] Blood specimen (specimen) 03/30/2014 21:01 EDT 03/30/2014 21:10 EDT Shahid Rayo MD CHEMISTRY & BLOOD GA S ORDERABLES Performing Organization Address [facility] de Phone Number [facility] [address] [place] [address] * PROTIME (03/30/2014 21:01 EDT) Pro Time 11.1 9.5 - 12.3 secs [facility] I.N.R. 1.0 0.9 - 1.1 Ratio [facility] Comment: Moderate Intensity Coumadin INR = 2.0-3.0 Adjustments in anticoagulant therapy dose should be based upon the INR and NOT the Pro Time. Blood specimen (specimen) 03/30/2014 21:01 EDT 03/30/2014 21:10 EDT Shahid Rayo MD HEMATOLOGY & PF4 ORD ERABLES [facility] [address] [place] [address] * (ABNORMAL) PTT (03/30/2014 21:01 EDT) PTT 130(HH) 26 - 37 secs [facility] Comment:Therapeutic Heparin range: 65-100 seconds Blood specimen (specimen) 03/30/2014 21:01 EDT 03/30/2014 21:10 EDT Shahid Rayo MD HEMATOLOGY & PF4 ORD ERABLES Performing Organization Address City/[facility] Co de Phone Number [facility] [address] [place] [address] documented in this encounter Visit Diagnoses Diagnosis NSTEMI (non-ST elevated myocardial infarction) ([facility])- Primary Acute myocardial infarction, subendocardial infarction, episode of care unspecified NSTEMI (non-ST elevated myocardial infarction) ([facility]) Acute myocardial infarction, subendocardial infarction, episode of care unspecified S/P coronary artery stent placement Postsurgical percutaneous transluminal coronary angioplasty status documented in this encounter Administered Medications Inactive Administered Medications - up to 3 most recent administrations Medication Order MAR Action Action Date Dose Rate Site acetaminophen (TYLENOL) tablet 500 mg 500 mg, oral, EVERY 4 HOURS PRN, Starting on Thu03/31/14 at 0739, Until 04/01/14 at 1736, Pain, Routine Given 04/01/2014 10:39 EDT 500 mg Given 03/31/2014 20:37 EDT 500 mg Given 03/31/2014 8:13 EDT 500 mg aspirin chewable tablet 162 mg 162 mg, oral, NOW X1, 1 dose, On Viki 03/30/14 at 2145, Routine Given 03/30/2014 22:14 EDT 162 mg aspirin chewable tablet 81 mg 81 mg, oral, DAILY, First dose on Thu03/31/14 at 0900, Until Discontinued, Routine Given 04/01/2014 10:39 EDT 81 mg Given 03/31/2014 8:13 EDT 81 mg atorvastatin (LIPITOR) tablet 40 mg 40 mg, oral, DAILY, First dose on Viki 03/30/14 at 2115, Until Discontinued, Routine Given 04/01/2014 10:33 EDT 40 mg Given 03/31/2014 8:13 EDT 40 mg Given 03/30/2014 23:24 EDT 40 mg heparin 1,000 unit/mL injection 3,500 Units 3,500 Units (70 Units/kg ? 50.7 kg Adjusted weight), intravenous, PRN, Starting on Viki 03/30/14 at 205, Until Thu03/31/14 at 1313, Other, Routine Given 03/31/2014 8:06 EDT 3,500 Units heparin in 1/2 NS 25,000 unit/250 mL infusion 14 Units/kg/hr ? 50.7 kg Adjusted weight (rounded to 7.1 mL/hr), intravenous, CONTINUOUS, Starting on Viki 03/30/14 at 2115, Until Thu03/31/14 at 1313, Routine Rate Documented 03/31/2014 11:13 EDT 14 Units/kg/hr 7.1 mL/hr New Bag 03/31/2014 8:06 EDT 14 Units/kg/hr 7.1 mL/hr New Bag 03/30/2014 22:26 EDT 12 Units/kg/hr 6.1 mL/hr metoprolol (LOPRESSOR) tablet 12.5 mg 12.5 mg, oral, 2 TIMES DAILY, First dose on Viki 03/30/14 at 2145, Until Discontinued, Routine Given 04/01/2014 10:39 EDT 12.5 mg Given 03/31/2014 20:36 EDT 12.5 mg Given 03/31/2014 8:13 EDT 12.5 mg nitroGLYCERIN (NITROSTAT) SL tablet 0.4 mg 0.4 mg, sublingual, EVERY 5 MIN PRN, Starting on Viki 03/30/14 at 2039, Until 04/01/14 at 1736, Chest Pain, STAT Given 03/31/2014 8:01 EDT 0.4 mg Given 03/31/2014 7:40 EDT 0.4 mg nitroglycerin 400 mcg/ml in D5W 250 ml infusion 1 dose, Starting on Viki 03/30/14 at 2050, Until Viki 7/17/14 at 2057 Given 03/30/2014 20:57 EDT 9 mg nitroglycerin 400 mcg/ml in D5W 250 ml infusion 15 mcg/min (rounded to 2.3 mL/hr), intravenous, CONTINUOUS, Starting on Thu03/30/14 at 2200, Until Thu03/31/14 at 1313, Routine Rate Change 03/30/2014 22:38 EDT 5 mcg/min 0.8 mL/h r New Bag 03/30/2014 22:11 EDT 10 mcg/min 1.5 mL/hr New Bag 03/30/2014 22:03 EDT 15 mcg/min 2.3 mL/hr sodium chloride 0.9 % flush 3 mL 3 mL, intravenous, EVERY 8 HOURS, First dose on Thu03/31/14 at 0000, Until Discontinued, STAT Given 04/01/2014 10:39 EDT 10 mL Given 03/31/2014 23:22 EDT 3 mL Given 03/31/2014 15:00 EDT 3 mL ticagrelor (BRILINTA) tablet 180 mg 180 mg, oral, NOW X1, 1 dose, On Thu03/30/14 at 2145, Routine Given 03/30/2014 22:14 EDT 180 mg ticagrelor (BRILINTA) tablet 90 mg 90 mg, oral, 2 TIMES DAILY, First dose on Thu03/31/14 at 0900, Until Discontinued, Routine Given 04/01/2014 10:39 EDT 9 0 mg Given 03/31/2014 20:37 EDT 90 mg Given 03/31/2014 8:13 EDT 90 mg documented in this encounter Active and Recently Administered Medications Times are shown in EDT. Scheduled Medication Order 03/30/2014 03/31/2014 04/01/2014 aspirin chewable tablet 162 mg (COMPLETED) 162 mg, oral, NOW X1, 1 dose, On Thu03/30/14 at 2145, Routine 2214 (Given - Provider: Cuauhtemoc Berg, TOSHA) aspirin chewable tablet 81 mg 81 mg, oral, DAILY, First dose on Thu03/31/14 at 0900, Until Discontinued, Routine 0813 (Given - Provider: Cuauhtemoc Berg, RN) 1039 (Given - Provider: Khadra Singh) atorvastatin (LIPITOR) tablet 40 mg 40 mg, oral, DAILY, First dose on Thu03/30/14 at 2115, Until Discontinued, Routine 2324 (Given - Provider: Cuauhtemoc Berg RN) 0813 (Given - Provider: Cuauhtemoc Berg RN) 1033 (Given - Provider: Khadra Singh) metoprolol (LOPRESSOR) tablet 12.5 mg 12.5 mg, oral, 2 TIMES DAILY, First dose on Viki 03/30/14 at 2145, Until Discontinued, Routine 2214 (Given - Provider: Cuauhtemoc Berg RN) 0813 (Given - Provider: Cuauhtemoc Berg RN)203 (Given - Provider: Ivan Nguyen) 1039 (Given - Provider: Khadra Singh) sodium chloride 0.9 % flush 3 mL (CANCELED) 3 mL, intravenous, EVERY 8 HOURS, First dose on Thu03/31/14 at 0000, Until Discontinued, STAT 2324 (Given - Provider: Cuauhtemoc Berg RN) 0815 (Given - Provider: Cuauhtemoc Berg RN)1500 (Given - Provider: Robin Johnson)2322 (Given - Provider: Ivan Nguyen) 1039 (Given - Provider: Khadra Singh) ticagrelor (BRILINTA) tablet 180 mg (COMPLETED) 180 mg, oral, NOW X1, 1 dose, On Viki 03/30/14 at 2145, Routine 221 (Given - Provider: Cuauhtemoc Berg RN) ticagrelor (BRILINTA) tablet 90 mg 90 mg, oral, 2 TIMES DAILY, First dose on Thu03/31/14 at 0900, Until Discontinued, Routine 08 (Given - Provider: Cuauhtemoc Berg RN)2036 (Given - Provider: Ivan Nguyen) 1039 (Given - Provider: Khadra Singh) Continuous Medication Order 03/30/2014 03/31/2014 04/01/2014 heparin in 1/2 NS 25,000 unit/250 mL infusion (CANCELED) 14 Units/kg/hr ? 50.7 kg Adjusted weight (rounded to 7.1 mL/hr), intravenous, CONTINUOUS, Starting on Viki 03/30/14 at 2115, Until Thu03/31/14 at 1313, Routine 2226 (New Bag - Provider: Cuauhtemoc Berg RN) 0806 (New Bag - Provider: Cuauhtemoc Berg RN)1113 (Rate Documented - Provider: Robin Johnson) nitroglycerin 400 mcg/ml in D5W 250 ml infusion (CANCELED) 15 mcg/min (rounded to 2.3 mL/hr), intravenous, CONTINUOUS, Starting on Viki 03/30/14 at 2200, Until Thu03/31/14 at 1313, Routine 2203 (New Bag - Provider: Cuauhtemoc Berg RN)2211 (New Bag - Provider: Cuauhtemoc Berg RN)2238 (Rate Change - Provider: Cuauhtemoc Berg RN)2250 (Completed - Provider: Cuauhtemoc Berg RN) PRN Medication Order 03/30/2014 03/31/2014 04/01/2014 acetaminophen (TYLENOL) tablet 500 mg (CANCELED) 500 mg, oral, EVERY 4 HOURS PRN, Starting on Thu03/31/14 at 0739, Until 04/01/14 at 1736, Pain, Routine 0813 (Given - Provider: Cuauhtemoc Berg RN)2037 (Given - Provider: Ivan Nguyen) 1039 (Given - Provider: Khadra Singh) heparin 1,000 unit/mL injection 3,500 Units (CANCELED)(Linked Group 1) 3,500 Units (70 Units/kg ? 50.7 kg Adjusted weight), intravenous, PRN, Starting on Viki 03/30/14 at 2057, Until Thu03/31/14 at 1313, Other, Routine 0806 (Given - Provider: Cuauhtemoc Berg RN) nitroGLYCERIN (NITROSTAT) SL tablet 0.4 mg (CANCELED) 0.4 mg, sublingual, EVERY 5 MIN PRN, Starting on Viki 03/30/14 at 2039, Until 04/01/14 at 1736, Chest Pain, STAT 0740 (Given - Provider: Cuauhtemoc Berg RN)0801 (Given - Provider: Cuauhtemoc Berg, RN) No Frequency Medication Order 03/30/2014 03/31/2014 04/01/2014 nitroglycerin 400 mcg/ml in D5W 250 ml infusion (COMPLETED) 1 dose, Starting on Viki 03/30/14 at 2051, Until Viki 03/30/14 at 2056 2056 (Given - Provider: Cuauhtemoc Berg, TOSHA) Linked Groups Order Group 1: heparin 1,000 unit/mL injection 3,500 Units (CANCELED)Jump to med 3,500 Units (70 Units/kg ? 50.7 kg Adjusted weight), intravenous, PRN, Starting on Viki 03/30/14 at 2056, Until Thu03/31/14 at 1313, Other, Routine Or heparin 1,000 unit/mL injection 1,800 Units (CANCELED) 1,800 Units (35 Units/kg ? 50.7 kg Adjusted weight), intravenous, PRN, Starting on Viki 03/30/14 at 2056, Until Thu03/31/14 at 1313, Other, Routine documented in this encounter Orders Medications Ordered That Ousmane ht Not Have Been Administered Count Last Ordered Date First Ordered Date lidocaine-EPINEPHrine 2 %-1: 100,000 injection 5-10 mL 1 03/31/2014 sodium chloride 0.9 % (NS) infusion 1 03/31 acetaminophen (TYLENOL) suppository 650 mg 1 03/30/2014 heparin 1,000 unit/mL inject ion 1,800 Units 1 03/30/2014 LORazepam (ATIVAN) tablet 0.5 mg 1 03/30/20 morphine injection 2-4 mg 1 03/30/2014 nitroGLYcerin 25 mg/250 mL ( 100 mcg/mL) infusion 1 03/30/2014 Diet Count Last Ordered Date First Orde red Date DISCHARGE DIET 1 03/31/2014 Nursing Count Last Ordered Date First Orde red Date ACTIVITY INSTRUCTIONS 3 03/31/2014 AMBULATE PATIENT 1 03/31/2014 BATHING INSTRUCTIONS 1 03/31/2014 PATIENT AT LOW RISK FOR VTE: RISK OF PHARMACOLOGIC PROPHYLAXIS OUTWEIG 1 03/31/2014 WOUND CARE INSTRUCTIONS 2 03/31/2014 CONTRAINDICATION TO ANTICOAG ULATION THERAPY 1 03/30/2014 NOTIFY PHYSICIAN (SPECIFY) 3 03/30/2014 NURSING ORDER: HEPARIN VIC COL (CARDIAC INDICATION) 1 03/30/2014 Admission Count Last Ordered Date First Orde red Date STATUS: OUTPATIENT OBSERVATION SERVICES 1 0 03/30/2014 Transfer Count Last Ordered Date First Orde red Date NOTIFY PPS OF DISCHARGE COMPLETE 1 04/01/20 14 PPS NOTIFICATION OF PATIENT ARRIVAL ON UNIT 2 03/30/2014 Discharge Count Last Ordered Date First Orde red Date DISCHARGE PATIENT 1 04/01/2014 Legal Count Last Ordered Date First Orde red Date MISCELLANEOUS DISCHARGE INSTRUCTIONS 6 03/14 documented in this encounter Care Teams Insert Molding Operator Relationship Specialty Start Date End Date Pretty Avery MD [address] [place] [address] PCP - General 06/05/10 documented as of this encounter
--- OUTSIDE RECORDS SUMMARY | 2024-03-30 13:27 | XMS_ITS | Encounter Summary ---
Author Organization [facility] Address [address] [place] [address] Care Team Providers Care Fur Dressing Supervisor Name Role Phone Unavailable Primary Care Provider Unavailabl e Encounter Details Date Type Department Care Team (Late st Contact Info) Description 12/31/2007 14:07 EDT Hospital Encounter [address] [address] Skip Alcocer MD [address] [place] [address], [facility] [address] [place] [address] Discharge Disposition: Auto Discharge Social History Tobacco Use Types Packs/Day Years Used Date Smoking Tobacco: Never Assessed Sex and Gender Information Value Date Recorded Sex Assigned at Not on file Gender Identity Not on file Sexual Orientation Not on file documented as of this encounter Discharge Disposition Disposition Code Departure Means Destination Auto Discharge documented in this encounter Plan of Treatment Not on file documented as of this encounter Procedures Procedure Name Priority Date/Time Associated Diagnosis Comments HPV DETECTION, HIGH RISK TYPES Routine 08/28/2008 10:19 EST CYTOPATHOLOGY Routine 08/28/2008 0:00 EST ALF VIABILITY 12/31/2007 16:20 EDT ALF CHORIONIC BARRETO SAMPLING 12/31/2007 15:40 EDT documented in this encounter Results * HUMAN PAPILLOMA VIRUS DNA TEST (08/28/2008 10:19 EST) Specimen Description Cervix, ThinPrep vial [facility] Result Negative for HPV types 16, 18, 31, 33, 35, 39, 45, 51, 52, 56, 58, 59, and 68. [facility] Report Status Final 09/14/2008 [facility] 08/28/2008 10:1 9 EST 09/05/2008 10:19 EST Fred Val [facility] MICROBIOLOGY - GE NERAL ORDERABLES Performing Organization Address City/State/[facility] Co de Phone Number [facility] [address] [place] [address] * CYTOPATHOLOGY (08/28/2008 0:00 EST) Pathology Report: CYTOPATHOLOGY REPORT ? Reports generated via electronic interface contain original data; ? however they are lacking the format of the original report. ? Caution should be taken when reading/interpreti ng unformatted reports. ? Name: ? EZEQUIEL THOMAS ? Accession #: ? [id number] ? : ? 1965 (Age: 43) ??F ?Collect Date: ? 08/28/2008 ? Location: ? [facility] ? Receive Date: ? 08/30/2008 ? [facility] ? Copy to: ? Specimen/Source: ?Pap Test, Cervix/Endocervix, ThinPrep Imaging System ? with manual evaluation ? Last Menstrual Period: ? 11/21/07 ? Menstrual/Pregnanc y Status: ? Post ? Other: ? HPVA - HPV testing requested if ASC-US on the current ThinPrep Pap test. ? SPECIMEN ADEQUACY ? Satisfactory for Evaluation ? - transformation zone component present ? GENERAL CATEGORIZATION ? Epithelial Cell Abnormality ? INTERPRETATION ? Squamous Cell Abnormality - Atypical squamous cells, undetermined ? significance (ASC-US). ? EDUCATIONAL NOTES/RECOMMENDATI ONS ? [facility] recommends following the 2006 Consensus Guidelines for the Management of Women with Abnormal Cervical Cancer Screening Tests (JLGTD, ? 2007;11(4):201-222 ). ??Consensus guidelines are available online at ? www.ASCCP.org. ? Document reviewed and electronically signed by: ? MARIAA Beverly PLOTZ MD ? Report Date: ??09/04/2008 10:20 ? End of Report ? [facility] 08/28/2008 08/30/2008 Fred Reece [facility] PATHOLOGY ORDERAB LES Performing Organization Address City/State/[facility] Co de Phone Number [facility] [address] [place] [address] * ALF VIABILITY (12/31/2007 16:20 EDT) Anatomical Region Laterality Modality Other 12/31/2007 16:2 0 EDT Narrative 02/25/2009 13:06 EDT first trimester prior to [facility] Please refer to the separate [facility] report. ??Contact Maternal Medicine. Procedure Note Magdalena Strickland MD - 02/25/2009 first trimester prior to [facility] Please refer to the separate [facility] report. Contact Maternal Medicine. Magdalena Strickland MD [facility] ORDERABLE S * ALF CHORIONIC BARRETO SAMPLING (12/31/2007 15:40 EDT) Anatomical Region Laterality Modality Other 12/31/2007 15:4 0 EDT Narrative 02/25/2009 10:52 EDT [facility] WITH DR ALCOCER Please refer to the separate [facility] report. ??Contact Maternal Medicine. Procedure Note Skip Alcocer MD - 02/25/2009 [facility] WITH DR ALCOCER Please refer to the separate [facility] report. Contact Maternal Medicine. Skip Reyes MD [facility] ORDERA BLES documented in this encounter Visit Diagnoses Not on filedocumented in this encounter
--- OUTSIDE RECORDS SUMMARY | 2024-03-30 13:27 | XMS_ITS | Encounter Summary ---
Author Organization [facility] [place] [address] Care Team Providers Care Abstract Searcher Name Role Phone None Primary Care Provider Unavailabl e Reason for Visit * Auth/Cert (Routine) Specialty Diagnoses / Procedures Referred By Contac t Referred To Contact Diagnoses Acute ST elevation myocardial infarction (STEMI) due to occlusion of left anterior descending (LAD) coronary artery stemi Procedures EMERGENCY IPI Destin Ambrosio MD [facility] [place] [employer] [address] [facility] Referral ID Status Reason Start Date Expiration Date Visits Re quested Visits Authorized [id number] 1 1 Encounter Details Date Type Department Care Team (Latest Contact Info) Description 03/19/2024 8:10 AM EDT - 03/19/2024 11:59 PM EDT Hospital Encounter [place] [address] Discharge Disposition: Home Social History Tobacco Use Types Packs/Day Years Used Date Smoking Tobacco: Former Smokeless Tobacco: Never Alcohol Use Standard Drinks/Week Comments Not Asked 0 (1 standard drink = 0.6 oz pur e alcohol) IPV Inpatient Questions Answer Date Recorded Does [...] on file documented as of this encounter Medications at [...] 03/22/2024 03/27/2024 documented as of this encounter Plan of Treatment Upcoming Encounters Date Type Department Care Team (Late st Contact Info) Description 05/09/2024 10:40 AM EDT Office Visit Cardiology at [address] [place] [address] Herlinda Weaver PA [facility] [place] [address] documented as of this encounter Procedures Procedure Name Priority Date/Time Associated Diagnosis Comments ECHO COMPLETE W CONTRAST Routine 03/19/2024 10:[address] elevation myocardial infarction involving left anterior descending (LAD) coronary artery documented in this encounter Visit Diagnoses Not on filedocumented in this encounter Administered Medications Inactive Administered Medications - up to 3 most recent administrations Medication Order MAR Action Action Date Dose Rate Site perflutren protein-A microsphers (Optison) (0.22 mg/mL) injection 0.5 mL 0.5 mL, Intravenous, ONCE PRN, 1 dose, Starting on 03/19/24 at 1053, Until 03/19/24 at 0945, for enhancement of sub-optimal echo images, Echo Lab (Intra-Procedure), Routine Given 03/19/2024 9:45 AM EDT 0.15 mLs documented in this encounter Care Teams Abstract Searcher Relationship Specialty Start Date End Date None None PCP - General 03/19/24 documented as of this encounter
--- OUTSIDE RECORDS SUMMARY | 2024-03-30 13:27 | XMS_ITS | Encounter Summary ---
Author Organization [facility] Address [address] [place] [address] Care Team Providers Care Flow Machine Operator Name Role Phone Unavailable Primary Care Provider Unavailabl e Encounter Details Date Type Department Care Team (Late st Contact Info) Description 05/15/2010 Results Only [facility] Laboratory Services - [facility] ([facility] [address] [place], [place] [id number] Jake Sabillon FNP [address] [place], [place] [id number] Social History Tobacco Use Types Packs/Day Years Used Date Smoking Tobacco: Never Assessed Sex and Gender Information Value Date Recorded Sex Assigned at Not on file Gender Identity Not on file Sexual Orientation Not on file documented as of this encounter Plan of Treatment Not on file documented as of this encounter Procedures Procedure Name Priority Date/Time Associated Diagnosis Comments CYTOPATHOLOGY Routine 05/15/2010 0:00 EDT documented in this encounter Results * CYTOPATHOLOGY (05/15/2010 0:00 EDT) Pathology Report: CYTOPATHOLOGY REPORT ? Reports generated via electronic interface contain original data; ? however they are lacking the format of the original report. ? Caution should be taken when reading/interpreti ng unformatted reports. ? Name: ? EZEQUIEL THOMAS ? Accession #: ? [id number] ? : ? 1965 (Age: 45) ??F ?Collect Date: ? 05/15/2010 ? Location: ? [facility] ? Receive Date: ? 05/17/2010 ? Provider: ?JAKE MAJANO ? Copy to: ? Specimen/Source: ?Pap Test, Cervix/Endocervix, ThinPrep Imaging System ? with manual evaluation ? Last Menstrual Period: ? 8/9/10 ? Infection History: ? Bacterial vaginosis ? Other: ? Additional clinical information: cervial warts ? HPVA - HPV testing requested if ASC-US on the current ThinPrep Pap test. ? SPECIMEN ADEQUACY ? Satisfactory for Evaluation ? - transformation zone component present ? GENERAL CATEGORIZATION ? Negative for Intraepithelial Lesion or Malignancy ? Document reviewed and electronically signed by: ? Derrick N. Micheal, CT(ASCP) ? Report Date: ??05/22/2010 10:27 ? End of Report ? [facility] 05/15/2010 05/17/2010 Jake Sabillon STUDY ABROAD ADVISOR PATHOLOGY ORDERABLES [facility] [address] [place] [address] documented in this encounter Visit Diagnoses Not on filedocumented in this encounter
--- OUTSIDE RECORDS SUMMARY | 2024-03-30 13:27 | XMS_ITS | Encounter Summary ---
Author Organization [facility] Address [address] [place] [address] Care Team Providers Care Cutting And Creasing Press Operator Name Role Phone Pretty Avery MD Primary Care Provider [phone] Encounter Details Date Type Department Care Team (Latest Contact Info) Description 03/30/2014 10:20 EDT - 03/30/2014 20:09 EDT Hospital Encounter [facility] [address] [place] [address] Unknown, Provider, Discharge Disposition: Home or Self [...] 2 times daily. 60 Tab 11 04/01/2014 atorvastatin (LIPITOR) 40 mg tablet Take 1 Tab by mouth daily. 30 Tab 11 04/01/2014 12/12/2014 metoprolol (LOPRESSOR) 25 mg tablet Take 0.5 Tabs by mouth 2 times daily. 30 Tab 11 04/01/2014 12/13/2014 documented as of this encounter Discharge Disposition Disposition Code Departure Means Destination Home or Self Usp documented in this encounter Plan of Treatment Not on file documented as of this encounter Visit Diagnoses Not on filedocumented in this encounter Care Teams Cutting And Creasing Press Operator Relationship Specialty Start Date End Date Pretty Avery MD [address] [place] [address] PCP - General 06/05/10 documented as of this encounter
--- OUTSIDE RECORDS SUMMARY | 2024-03-30 13:27 | XMS_ITS | Clinical Summary ---
Author Organization [facility] Address [facility] [place] [address] Care Team Providers Care Button Reclaimer Name Role Phone None Primary Care Provider Unavailabl e Allergies No known active allergies Medications Medication Sig Dispensed Refills Start Date End Date Status ketoconazole (NIZORAL) 2 % ShampooIndications: Seborrheic dermatitis Apply topically to scalp, let sit 3-5 minutes then rinse off. Alternate with home OTC anti dandruff shampoo every few washes 120 mL 3 12/08/2023 Active aspirin 81 mg chewable tablet Take 81 mg by mouth daily. 30 tablet 3 03/23/2024 Active atorvastatin (Lipitor) 80 mg tablet Take 1 tablet by mouth daily. 30 tablet 3 03/23/2024 Active clopidogreL (Plavix) 75 mg tablet Take 1 tablet by mouth daily. 90 tablet 3 03/23/2024 Active famotidine (Pepcid) 20 mg tablet Take 1 tablet by mouth 2 times daily as needed. 30 tablet 12 03/22/2024 Active nitroGLYcerin (Nitrostat) 0.[address] 1 tablet under the tongue every 5 minutes as needed for Chest pain. 90 tablet 12 03/22/2024 Active ubiquinone, Coenzyme Q10, (Ubiquinone) 50 mg capsule Take 1 capsule by mouth daily. 30 capsule 03/23/2024 Active metoprolol succinate XL (Toprol-XL) 25 mg ER 24 hr tablet Take 0.5 tablets by mouth nightly. 30 tablet 03/27/2024 Active Active Problems Problem Noted Date Diagnosed Date Acute ST elevation myocardia l infarction (STEMI) due to occlusion of left anterior descending (LAD) coronary artery 03/19/2024 Encounters Date Type Department Care Team Description 03/27/2024 Telephone Cardiology at [address] [phone] Fidel Yanes PA 03/19/2024 8:10 AM EDT - 03/19/2024 11:59 PM EDT Hospital Encounter Non-Invasive Cardiology Lab [place] [phone] Discharge Disposition: Home 03/19/2024 1:05 AM EDT - 03/19/2024 2:06 AM EDT Surgery [id number] [place] [phone] Ramo Roy MD CARDIAC CATHETERIZATION 03/19/2024 12:37 AM EDT - 03/22/2024 12:10 PM EDT Hospital Encounter Heart and Vascular Unit Level [place] A at [place] [phone] Min, MD Santi Vigil Xavier L, MD Ramachandra, Nayana, MD ST elevation myocardial infarction involving left anterior descending (LAD) coronary artery; Chest pain, unspecified type Discharge Disposition: Home 03/18/2024 11:37 PM EDT - 03/18/2024 11:59 PM EDT Hospital [place] [phone] Min, Destin Grajeda MD Discharge Disposition: Home 03/18/2024 Telephone Cardiology at [address] [phone] Yusuf Herrera MD 03/18/2024 External [place] [phone] from Last 3 Months Social History Tobacco Use Types Packs/Day Years Used Date Smoking Tobacco: Former Smokeless Tobacco: Never Alcohol Use Standard Drinks/Week Comments Yes 14 (1 standard drink = 0.6 oz pu re alcohol) [facility] Utilities Answer Date Recorded In the past 12 months has [employer], oil, or water [employer] threatened to shut off services in your [...] any time in the past 12 m [facility], were you homeless or living in a assisted (including now)? No 03/21/2024 DH IPV Inpatient [...] Mass Index 22.18 03/22/2024 4:06 AM EDT Plan of Treatment Upcoming Encounters Date Type Department Care Team (Late st Contact Info) Description 05/09/2024 10:40 AM EDT Office Visit Cardiology at [facility] [place] [phone] Herlinda Weaver [place] [address] Health Maintenance Due Date Last Done Comments CT Colonography 1965 Colonoscopy 1965 Colorectal Cancer Screening 1965 FIT DNA 1964 FIT 1965 Sigmoidoscopy (10 year) with FIT yearly 1965 Sigmoidoscopy 1965 Pneumococcal Vaccine: At-Risk 5-64yrs (1 of 2 - PCV) 0 1970 HIV screen 1982 Hepatitis C Screening 1982 Tdap adult 1983 Tetanus vaccine 1983 HPV test 1994 PAP Smear 1994 Breast Cancer Share Decision Needed 2004 Breast Cancer screening 2004 Zoster vaccine (1 of 2) 2014 Covid-19 Vaccine ( - season) 2023 Influenza (Flu) vaccine (1 o f 1 - Influenza standard series) 05/15/2024 Procedures Procedure Name Priority Date/Time Associated Diagnosis Comments SCAN DOC: TELEMETRY STRIPS 03/22/2024 11:38 AM EDT SCAN DOC: TELEMETRY STRIPS 03/22/2024 7:21 AM EDT DIFFERENTIAL, AUTOMATED Routine 03/22/20 5:06 AM EDT HEMOGRAM Routine 03/22/2024 5:06 AM EDT BASIC METABOLIC PANEL (NON-FASTING) Routine 03/22/2024 5:06 AM EDT HC CBC,PLT & AUTO DIFF Routine 5:06 AM EDT HC VENIPUNCTURE Routine 03/22/2024 5:06 AM EDT DIFFERENTIAL, AUTOMATED Routine 03/21/20 24 2:57 AM EDT HEMOGRAM Routine 03/21/2024 2:57 AM EDT BASIC METABOLIC PANEL (NON-FASTING) Routine 03/21/2024 2:57 AM EDT HC CBC,PLT & AUTO DIFF Routine 4 2:57 AM EDT HC MAGNESIUM, SERUM Routine 03/21/2024 2 :57 AM EDT HC VENIPUNCTURE Routine 03/21/2024 2:57 AM EDT IRON AND TIBC Routine 03/20/2024 10:38 AM EDT DIFFERENTIAL, AUTOMATED Routine 03/20/20 24 10:38 AM EDT HEMOGRAM Routine 03/20/2024 10:38 AM EDT HC CBC,PLT & AUTO DIFF Routine 4 10:38 AM EDT HC MAGNESIUM, SERUM Routine 03/20/2024 1 0:38 AM EDT BASIC METABOLIC PANEL (NON-FASTING) Routine 03/20/2024 10:38 AM EDT MAGNESIUM STAT 03/19/2024 11:01 PM EDT HC VENIPUNCTURE STAT 03/19/2024 11:01 PM EDT HC VENIPUNCTURE STAT 03/19/2024 8:40 PM EDT EKG 12-LEAD STAT 03/19/2024 8:32 PM EDT Chest pain, unspecified type SCAN DOC: TELEMETRY STRIPS 03/19/2024 6:37 PM EDT EKG 12-LEAD Routine 03/19/2024 5:27 PM EDT HC TROPONIN T STAT 03/19/2024 2:45 PM EDT ECHO COMPLETE W CONTRAST Routine 03/19/2024 10:[address] elevation myocardial infarction involving left anterior descending (LAD) coronary artery XR CHEST ONE VIEW Routine 03/19/2024 8:3 7 AM EDT SCAN DOC: TELEMETRY STRIPS 03/19/2024 7:55 AM EDT HEMOGLOBIN A1C Routine 03/19/2024 5:25 AM EDT DIFFERENTIAL, AUTOMATED Routine 03/19/20 5:25 AM EDT HEMOGRAM Routine 03/19/2024 5:25 AM EDT LIPID PANEL (REFLEX DIRECT LDL) Routine 03/19/2024 5:25 AM EDT HC TROPONIN T STAT 03/19/2024 5:25 AM EDT HC PARTIAL THROMBOPLASTIN TIME Routine 03/19/2024 5:25 AM EDT HC PROTHROMBIN TIME Routine 03/19/2024 5 :25 AM EDT COMPREHENSIVE METABOLIC PANEL (NON-FASTING) Routine 03/19/2024 5:25 AM EDT HC CBC,PLT & AUTO DIFF Routine 5:25 AM EDT EKG 12-LEAD STAT 03/19/2024 2:[address] elevation myocardial infarction involving left anterior descending (LAD) coronary artery DIFFERENTIAL, AUTOMATED Routine 03/19/20 24 2:20 AM EDT HEMOGRAM Routine 03/19/2024 2:20 AM EDT HC TROPONIN T STAT 03/19/2024 2:20 AM EDT HC PARTIAL THROMBOPLASTIN TIME Routine 03/19/2024 2:20 AM EDT HC PROTHROMBIN TIME Routine 03/19/2024 2 :20 AM EDT HEPATIC FUNCTION PANEL Routine 2:20 AM EDT HC PROBNP Routine 03/19/2024 2:20 AM EDT HC PHOSPHORUS, SERUM Routine 03/19/2024 2:20 AM EDT HC MAGNESIUM, SERUM Routine 03/19/2024 2 :20 AM EDT BASIC METABOLIC PANEL (NON-FASTING) Routine 03/19/2024 2:20 AM EDT HC CBC,PLT & AUTO DIFF Routine 2:20 AM EDT POINT OF CARE BLOOD GAS HISTORICAL Routine 03/19/2024 1:41 AM EDT CARDIAC CATHETERIZATION Routine 03/19/20 24 1:36 AM EDT POINT OF CARE BLOOD GAS HISTORICAL Routine 03/19/2024 1:26 AM EDT ECG SCAN Routine 03/18/2024 10:18 PM EDT ECG SCAN Routine 03/18/2024 10:09 PM EDT from Last 3 Months Results * Scan Doc: Telemetry Strips (03/22/2024 11:38 AM EDT) Only the most recent of4 resultswithin the time period is included. Narrative 03/22/2024 11:38 AM EDT Ordered by an unspecified provider. Scanning Provider MEDIA MGR SCAN EXT O RDR/RSLT * (ABNORMAL) Hemogram (03/22/2024 5:06 AM EDT) Only the most recent of5 resultswithin the time period is included. Pathologist [facility] WBC 11.6(H) 4.0 - 9.5 x10(3)/[facility] LABORATORY RBC 4.80 4.00 - 5.21 x10(6)/[facility] LABORATORY Hemoglobin 13.5 11.7 - 15.5 g/dL [facility] Hematocrit 40.3 35.7 - 45.8 % [facility] MCV 84.0 82.6 - 94.4 [facility] LABORATORY MCH 28.1 27.1 - 32.0 pg [facility] MCHC 33.5 31.7 - 35.0 g/dL [facility] Platelets 232 145 - 357 x10(3)/[facility] LABORATORY RDWSD 42.2 37.0 - 46.0 [facility] LABORATORY RDWCV 13.5 11.5 - 14.1 % [facility] MPV 9.7 7.6 - 12.9 [facility] LABORATORY nRBC % Auto 0.0 % [facility] nRBC Abs Auto 0.000 0.000 - 0.000 x10(3)/[facility] LABORATORY Blood 03/22/2024 5:06 AM EDT 03/22/2024 5:12 AM EDT Narrative Resulting Agency Comment Spec In Lab Horace Hancock MD HEMATOLOGY ORDERABLE S [facility] [place] [address] * (ABNORMAL) Differential, Automated (03/22/2024 5:06 AM EDT) Only the most recent of5 resultswithin the time period is included. Pathologist [facility] Neutrophils % 71.6 % [facility] Neutr Abs (ANC) 8.34(H) 1.70 - 6.10 x10(3)/[facility] LABORATORY Lymphocytes % 17.4 % [facility] Lymphocytes Abs 2.0 0.9 - 3.2 x10(3)/[facility] LABORATORY Monocytes % 8.2 % [facility] Monocyte Abs 1.0(H) 0.3 - 0.9 x10(3)/[facility] LABORATORY Eosinophils % 2.2 % [facility] Eosinophils Abs 0.3 0.0 - 0.4 x10(3)/[facility] LABORATORY Basophils % 0.3 % [facility] Basophils Abs 0.0 0.0 - 0.1 x10(3)/[facility] LABORATORY Immature Gran % 0.30 % [facility] Comment: Immature granulocytes(IG's)percentage and absolute count will include metamyelocytes, myelocytes, and promyelocytes. Blood smears from CBCs yielding IG's will be scanned manually for concordance. If this scan disagrees with the automated IG or if promyelocytes are noted, a manual differential will be performed. Lesia Gran Abs 0.03 0.00 - 0.04 x10(3)/[facility] LABORATORY Blood 03/22/2024 5:06 AM EDT 03/22/2024 5:12 AM EDT Narrative Resulting Agency Comment Spec In Lab Horace Hancock MD HEMATOLOGY ORDERABLE S [facility] [place] [address] * Magnesium (03/22/2024 5:06 AM EDT) Only the most recent of5 resultswithin the time period is included. Magnesium 0.90 0.69 - 1.07 mmol/L [facility] Blood 03/22/2024 5:06 AM EDT 03/22/2024 5:12 AM EDT Narrative Resulting Agency Comment Spec In Lab Destin Ambrosio MD CHEMISTRY ORDERABLES [facility] [address] * Basic Metabolic Panel (non-fasting) (03/22/2024 5:06 AM EDT) Only the most recent of4 resultswithin the time period is included. Glucose Lvl 107 65 - 199 mg/dL [facility] Comment:Diabetes: >=200 mg/d L plus symptoms BUN 18 8 - 18 mg/dL [facility] Creatinine 0.87 0.70 - 1.20 mg/dL [facility] Sodium 138 135 - 145 mmol/L [facility] Potassium 4.1 3.5 - 5.0 mmol/L [facility] Comment: Please note: ??Patients with WBC >100,000 may have falsely elevated Potassium levels. ??For accurate Potassium quantification in these patients send serum separator tube (gold top) for subsequent determinations. ??Contact the Clinical Chemistry Laboratory if there are any questions. Chloride 104 98 - 107 mmol/L [facility] CO2 24 22 - 31 mmol/L [facility] Anion Gap 10 5 - 15 mmol/L [facility] Calcium 9.2 8.5 - 10.5 mg/dL [facility] Estimated GFR 76 >=60 mL/min/1. 73 m?? [facility] Comment: This patient's estimated GFR [...] Hancock MD CHEMISTRY ORDERABLES Performing Organization Address [facility] Co de Phone Number [facility] [address] * Metanephrines, Fractionated Free, plasma (03/21/2024 2:57 AM EDT) Normetane Free 0.47 <0.90 nmol/L [facility] Comment: Test Performed by: [facility] [place] [address] Ancillary Specialist: Chasity Hernandez Ph.D.; CLIA# [id number] Metanephr Free <0.20 <0.50 nmol/L [facility] Comment: ADDITIONAL INFORMATION This test was developed and its performance characteristics determined by [facility] in a manner consistent with CLIA requirements. This test has not been cleared or approved by the U.S. Food and Drug Administration. Test Performed by: [facility] [place] [address] Ancillary Specialist: Chasity Hernandez Ph.D.; CLIA# [id number] Blood 03/21/2024 2:57 AM EDT 03/21/2024 11:29 AM EDT Narrative Resulting Agency Comment Spec In Lab Horace Hancock MD CHEMISTRY ORDERABLES Performing Organization Address City/[facility]/ZIP Co de Phone Number [facility] [place] [address] * Iron and TIBC (03/20/2024 10:38 AM EDT) Iron 57 30 - 150 mcg/dL [facility] TIBC 278 250 - 450 mcg/dL [facility] Iron Saturation 21 20 - 50 % [facility] Blood Venous Draw / Unknown 03/20/2024 10:38 AM EDT 03/20/2024 10:52 AM EDT Narrative Resulting Agency Comment Spec In Lab Horace Hancock MD CHEMISTRY ORDERABLES [facility] [place] [address] * (ABNORMAL) Troponin (03/19/2024 11:01 PM EDT) Only the most recent of5 resultswithin the time period is included. Troponin-T HS 2,406(H) <=14 ng/L [facility] Comment: This patient's troponin T [...] troponin value can be found in the [facility] Test Catalog Troponin - [facility] Test Catalog Reference: Fourth Mcgrann Definition of Myocardial Infarction. Journal of the [place] [employer] 2018;72:3752-5338 Blood 03/19/2024 11:0 1 PM EDT 03/19/2024 11:05 PM EDT Narrative Resulting Agency Comment Spec In Lab Franky Mead MD CHEMISTRY ORDERABLE S Performing Organization Address City/[facility]/ZIP Co de Phone Number [facility] [place] [address] * EKG 12 Lead (03/19/2024 8:32 PM EDT) Only the most recent of3 resultswithin the time period is included. Ventricular rate 70 BPM MUSE SYSTEM Atrial Rate 70 BPM MUSE SYSTEM P-R Interval 158 ms MUSE SYSTEM QRS Duration 78 ms MUSE SYSTEM Q-T Interval 470 ms MUSE SYSTEM QTC Calculated (Bezet) 507 ms MUSE SYSTEM Calculated P [place] 62 degrees MUSE SYSTEM Calculated R [place] 42 degrees MUSE SYSTEM Calculated T [place] -158 degrees MUSE SYSTEM INTERPRETATION Normal sinus rhythm Poor R wave progression T wave abnormality, consider lateral ischemia Prolonged QT Abnormal ECG When compared with ECG of 19-MAR-2024 17:27, No significant change was found Confirmed by MD Hebert, Destin ([id number]) on 03/23/2024 8:10:58 AM MUSE SYSTEM 03/19/2024 8:32 PM EDT 03/23/2024 8:10 AM EDT Franky Mead MD ECG ORDERABLES Performing Organization Address [facility] Co de Phone Number MUSE SYSTEM * ECHO COMPLETE W CONTRAST (03/19/2024 10:53 AM EDT) Anatomical Region Laterality Modality Cardiac Other 03/19/2024 9:03 AM EDT Narrative 03/19/2024 12:12 PM EDT [address] [place] [address] ? Echocardiogram Report Name: ISA RO ?Study Date: 03/19/2024 09:03 AMBP: 129/68 mmHg ? Patient Location: : 1965 ? Height: 158 cm ? Account: [id number] Age: 59 yrs ? Weight: 57 kg Gender: Female ?BSA: 1.6 m2 Ordering Physician: GANESH NGUYEN Referring Physician: GANESH NGUYEN Performed By: PEREZ Carlos Reason For Study: STEMI involving LAD Exam Location: [facility]. Interpretation Summary Normal left ventricle size with mildly reduced LV function. LV ejection fraction 49%. LAD territory wall motion abnormality, predominantly involving the LV apex. No LV thrombus visualized with echo contrast. Normal right ventricle. No significant valvular abnormalities. Compared with prior echo dated 08/28/23, LV function has now decreased and new wall motion abnormalities. Procedure Complete-[id number]. Image enhancement Definity was used for left [...] Note Destin Ambrosio MD - 03/19/2024 [address] [place] [address] Echocardiogram Report Name: ISA RO Study Date: 409:03 AMBP: 129/68 mmHg Patient Location: : 1965 Height: 158 cm Account: [id number] Age: 59 yrs Weight: 57 kg Gender: Female BSA: 1.6 m2 Ordering Physician: GANESH NGUYEN Referring Physician: GANESH NGUYEN Performed By: PEREZ Carlos Reason For Study: STEMI involving LAD Exam Location: [facility]. Interpretation Summary Normal left ventricle size with mildly reduced LV function. LV ejectionfraction 49%. LAD territory wall motion abnormality, predominantly involving the LVapex. No LV thrombus visualized with echo contrast. Normal right ventricle. No significant valvular abnormalities. Compared with prior echo dated 08/28/23, LV function has now decreased andnew wall motion abnormalities. Procedure Complete-[id number]. Image enhancement Definity was used for left [...] View (03/19/2024 8:37 AM EDT) WORKSTATION ID [id number] RAD Anatomical Region Laterality Modality Chest N/A [...] who have questions please contact the health healthcare project manager that requested your imaging first. ? Electronically signed by: Isa Whitley MD, [facility] ??([phone]), at 03/19/2024 10:09 AM Narrative 03/19/2024 10:09 [...] patients who have questions please contactthe health healthcare project manager that requested your imaging first. Electronically signed by: Isa Whitley MD, [facility]([phone]), at 03/19/2024 10:09 AM Delores Jett MD IMG DX ORDERABLES * APTT (03/19/2024 5:25 AM EDT) Only the most recent of2 resultswithin the time period is included. PTT 29 25 - 37 sec [facility] Comment: The PTT is NOT appropriate for heparin monitoring. Use the Anti-Xa level for heparin monitoring (HEP UFH) or LMWH monitoring (HEP LMW). A PTT less than 37 seconds generally indicates adequate hemostasis. Blood 03/19/2024 5:25 AM EDT 03/19/2024 5:34 AM EDT Narrative Resulting Agency Comment Spec In Lab Ganesh Nguyen MD HEMATOLOGY ORDERA BLES Performing Organization Address [facility] Co de Phone Number [facility] [place] [address] * Prothrombin Time (03/19/2024 5:25 AM EDT) Only the most recent of2 resultswithin the time period is included. PT 10.9 9.4 - 12.5 sec [facility] INR 1.0 [facility] Comment: An INR <2.0 indicates adequate [...] MD HEMATOLOGY ORDERA BLES Performing Organization Address City/[facility]/ZIP Co de Phone Number [facility] [place] [address] * Hemoglobin A1c (03/19/2024 5:25 AM EDT) Hemoglobin A1C 5.6 4.3 - 5.6 % [facility] Comment: Reference Range: 4.3 - [...] Mellitus, Diabetes Care 2013; 36: Suppl. 1, E17-06 Est Avg Gluc 114 mg/dL [facility] Blood Venous Draw / Unknown 03/19/2024 5:25 AM EDT 03/19/2024 3:52 PM EDT Narrative Resulting Agency Comment Spec In Lab Horace Hancock MD CHEMISTRY ORDERABLES [facility] [address] * Lipid Panel (Reflex Direct LDL) (03/19/2024 5:25 AM EDT) Chol, Total 324 mg/dL [facility] Comment: Desirable: ? <200 mg/dL Borderline High: 200-239 mg/dL Higher: ?>nm=336 mg/dL Triglycerides 200 mg/dL [facility] Comment: Normal: ?<150 mg/dL Borderline High: 150-199 mg/dL High: ?200-499 mg/dL Very High: ? >et=459 mg/dL HDL 68 mg/dL [facility] Comment: Females: High Risk: <50 mg/dL Males: High Risk: <40 mg/dL LDL Cholesterol 216 mg/dL [facility] Comment: Desirable: ? <100 mg/dL Above Desirable: 100-129 mg/dL Borderline High: 130-159 mg/dL High: ?160-189 mg/dL Very High: ? >wg=858 mg/dL Lipid Interpretation See Note [facility] Comment: It is important to [...] ACC/AHA Guidelines (most recently Jw et al. [facility] 06/17/22): For individuals with atherosclerotic cardiovascular disease (ASCVD)or LDL >ka=094 mg/dL, use a high-intensity statin (40-80 mg [...] Lab Ganesh Nguyen MD CHEMISTRY ORDERAB LES [facility] [place] [address] * (ABNORMAL) Comprehensive metabolic panel (non-fasting) (03/19/2024 5:25 AM EDT) Glucose Lvl 181 65 - 199 mg/dL [facility] Comment:Diabetes: >=200 mg/d L plus symptoms BUN 14 8 - 18 mg/dL [facility] Creatinine 0.91 0.70 - 1.20 mg/dL [facility] Sodium 137 135 - 145 mmol/L [facility] Potassium 4.2 3.5 - 5.0 mmol/L [facility] Comment: Please note: ??Patients with WBC >100,000 may have falsely elevated Potassium levels. ??For accurate Potassium quantification in these patients send serum separator tube (gold top) for subsequent determinations. ??Contact the Clinical Chemistry Laboratory if there are any questions. Chloride 100 98 - 107 mmol/L [facility] CO2 22 22 - 31 mmol/L [facility] Anion Gap 15 5 - 15 mmol/L [facility] Calcium 8.7 8.5 - 10.5 mg/dL [facility] Total Protein 7.2 6.1 - 8.0 g/dL [facility] Albumin 4.5 3.2 - 5.2 g/dL [facility] AST 95(H) 0 - 30 unit/L [facility] Comment:result rechecked-bz ALT 31(H) 0 - 30 unit/L [facility] Alk Phos 70 35 - 105 unit/L [facility] Total Bilirubin 0.5 0.2 - 1.3 mg/dL [facility] Estimated GFR 72 >=60 mL/min/1. 73 m?? [facility] Comment: This patient's estimated GFR [...] MD CHEMISTRY ORDERAB LES Performing Organization Address City/[facility]/ZIP Co de Phone Number [facility] [place] [address] * Phosphorus (03/19/2024 2:20 AM EDT) Phosphorus 3.8 2.5 - 4.5 mg/dL [facility] Blood 03/19/2024 2:20 AM EDT 03/19/2024 2:59 AM EDT Narrative Resulting Agency Comment Spec In Lab Ganesh Nguyen MD CHEMISTRY ORDERAB LES Performing Organization Address [facility] Co de Phone Number [facility] [address] * (ABNORMAL) pro-Brain Natriuretic Peptide (03/19/2024 2:20 AM EDT) ProBNP 529(H) <=124 pg/mL [facility] Blood 03/19/2024 2:20 AM EDT 03/19/2024 2:59 AM EDT Narrative Resulting Agency Comment Spec In Lab Ganesh Nguyen MD CHEMISTRY ORDERAB LES Performing Organization Address [facility] Co de Phone Number [facility] [place] [address] * (ABNORMAL) Hepatic Function Panel (03/19/2024 2:20 AM EDT) Total Protein 6.7 6.1 - 8.0 g/dL [facility] Albumin 4.3 3.2 - 5.2 g/dL [facility] AST 49(H) 0 - 30 unit/L [facility] ALT 26 0 - 30 unit/L [facility] Alk Phos 67 35 - 105 unit/L [facility] Total Bilirubin 0.4 0.2 - 1.3 mg/dL [facility] Bili, Direct 0.1 0.0 - 0.3 mg/dL [facility] Blood 03/19/2024 2:20 AM EDT 03/19/2024 2:59 AM EDT Narrative Resulting Agency Comment Spec In Lab Ganesh Nguyen MD CHEMISTRY ORDERAB LES [facility] [address] * (ABNORMAL) Point of Care Blood Gas Historical (03/19/2024 1:41 AM EDT) Only the most recent of2 resultswithin the time period is included. POC pH 7.28(Criti lewis) 7.35 - 7.45 [facility] POC PCO2 40 35 - 45 mmHg [facility] POC PO2 84(L) 85 - 104 mmHg [facility] POC Base Excess -8.0(L) -3.0 - 3.0 mmol/L [facility] POC HCO3 18.6(L) 20.0 - 26.0 mmol/L [facility] POC TCO2 20(L) 22 - 31 mmol/L [facility] POC Sodium 134(L) 135 - 145 mmol/L [facility] POC Potassium 3.4(L) 3.5 - 5.0 mmol/L [facility] POC Ionized Ca 1.09(L) 1.15 - 1.33 mmol/L [facility] POC Hematocrit 38.0 34.0 - 45.0 % [facility] [facility] Calc Hgb 12.9 11.2 - 15.7 g/dL [facility] Blood 03/19/2024 1:41 AM EDT 03/19/2024 1:41 AM EDT Kathryn Walker MD CHEMISTRY ORDERABL ES [place] [place] [address] * CARDIAC CATHETERIZATION (03/19/2024 1:36 AM EDT) Anatomical Region Laterality Modality Other Narrative 03/19/2024 7:19 AM EDT ?[facility] ? Cardiac Catheterization/Intervention Report ? Patient Name: Isa Ro A. ? Procedure Date: 03/19/2024 ? A #: [id number] ? Primary Physician: Ramo Roy ? Case #: [id number] ? File Name: [id number] ? Catheterization Order Number: [id number] ? [id number] ? Final Report [place], [place] ? Patient Name: ? Isa A. Warnaar ? ID#: ?[id number] ? : ?1965 ? Procedure Date: ? March 19, 2024 ? Case #: ? [id number] ? Room: ? 6 ? Case Physician: [...] procedure was Emergent. The indication for ?the poultry hatchery laborer visit is ACS less than or equal [...] ?3.5 guiding catheter and a 3.5 Fr [place] 20 Mhz using auto 1 ?mm/sec pullback. [...] ? A premounted 3.00 x 08 mm [place] Crawford (JAHAIRA) was deployed ? with a maximum inflation pressure of 12 atmospheres. ? Another stent insertion was accomplished through a 6 Fr. EBU ? 3.5 guide. ??A premounted 2.00 x 08 mm Alberto Crawford (JAHAIRA) was ? deployed. ? The final [...] dose administered prior to arrival in the poultry hatchery laborer. ?Recommended anti-platelet/anti-thrombotic regimen: ?Start aspirin 81 mg daily now and continue for indefinitely. ?Start clopidogrel 75 mg daily now and continue for 12 months then stop. ?These recommendations are made at the time of the intervention. Patient ?and provider preferences or a changing clinical situation may require ?modification of this regimen. Consult [facility] Interventional Cardiology for ?questions. ?The 1 year [...] against any medical treatment. Consult ?http://tools.acc.org/DAPTriskapp/#!/content/calculator/ or [facility] ?Interventional Cardiology for questions ? Conclusions: ?* [...] Procedure Note Ramo Roy MD - 03/21/2024 [facility] Cardiac Catheterization/Intervention Report Patient Name: Isa Ro Procedure Date: 03/19/2024 A #: [id number] Primary Physician: Ramo Roy Case #: [id number] File Name: [id number] Catheterization Order Number: [id number] [facility] FinalReport [place], [place] Patient Name: Isa Ro ID#:[id number] :1965 Procedure Date: March 19, 2024 Case [...] patientwas designated as ASA Class IV. The [facility] clinical frailty scale is 3: Managing Well. Diagnostic Tests: Prior Coronary Angiography: Prior coronary angiography was performed on 12/15/2014. Electrocardiography: EKG was assessed by ECG. EKG was Abnormal. EKG showed STDeviation >= 0.5 mm and other abnormality. Medications Prior to Procedure: Aspirin. Indications for Diagnostic Cath: The priority of the diagnostic procedure was Emergent. Theindication for the poultry hatchery laborer visit is ACS less than or equal [...] 3.5 guiding catheter and a 3.5 Fr [place] 20 Mhz usingauto 1 mm/sec pullback. Imaging [...] The priority for the procedure was Emergent.The [facility] indication for the procedure was STEMI-Immediate PCI [...] The lesion was predilated with a 2.50mm [id number] MM balloon with a maximum inflation pressure of 14atmospheres. A premounted 3.00 x 08 mm Alberto Crawford (JAHAIRA) wasdeployed with a maximum inflation pressure of 12 atmospheres. Another stent insertion was accomplished through a 6 Fr.EBU 3.5 guide. A premounted 2.00 x 08 mm [place] Crawford (JAHAIRA)was deployed. 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 Recommended anti-platelet/anti-thrombotic regimen: Start aspirin 81 mg daily now and continue for indefinitely. Start clopidogrel 75 mg daily now and continue for 12 months thenstop. These recommendations are made at the time of the intervention.Patient and provider preferences or a changing clinical situation mayrequire modification of this regimen. Consult [facility] Interventional Cardiologyfor questions. The 1 year bleeding [...] or against any medical treatment.Consult http://tools.acc.org/DAPTriskapp/#!/content/calculator/ or [facility] Interventional Cardiology for questions Conclusions: * One [...] Roy MD CARDIAC CATH ORDERAB LES * Scan Doc: ECG (03/18/2024 10:18 PM EDT) Only the most recent of2 resultswithin the time period is included. Historical Provider MEDIA MGR SCAN EX T ORDR/RSLT from Last 3 Months Advance Directives Documents on File Type Date Recorded Patient Publication Manager Expl anation Advance Directives and Livin g Will 03/21/2024 4:09 PM * Attempt Cardiopulmonary Resuscitation - Inpatient (Latest Code Status on File) Date Activated Date Inactivated Comments 03/19/2024 1:09 AM 03/22/2024 2:16 PM Question Answer Comments Code Status decision made by: Patient Content of discussion: discussed code st atus and need for CPR/shocks/intubation in periprocedural period Care Teams Button Reclaimer Relationship Specialty Start Date End Date None None PCP - General 03/19/24
--- OUTSIDE RECORDS SUMMARY | 2024-03-30 13:27 | XMS_ITS | Encounter Summary ---
Author Organization [facility] Address [address] [place] [address] Care Team Providers Care Explosion Welder Name Role Phone Unavailable Primary Care Provider Unavailabl e Encounter Details Date Type Department Care Team (Late st Contact Info) Description 04/30/2010 Results Only [facility] Medicine [address] [address] Pretty Avery MD [address] [place] [id number] Social History Tobacco Use Types Packs/Day Years Used Date Smoking Tobacco: Never Assessed Sex and Gender Information Value Date Recorded Sex Assigned at Not on file Gender Identity Not on file Sexual Orientation Not on file documented as of this encounter Plan of Treatment Not on file documented as of this encounter Procedures Procedure Name Priority Date/Time Associated Diagnosis Comments MR HEAD W/WO CONTRAST 06/06/2010 20:11 EDT documented in this encounter Results * MR HEAD W/WO CONTRAST (06/06/2010 20:11 EDT) Anatomical Region Laterality Modality Other 06/06/2010 20:1 1 EDT 06/07/2010 17:25 EDT Narrative 06/07/2010 17:25 EDT Brain MR with and without contrast Clinical indication: Headache and visual changes. Technique: Sagittal T1, axial T1, T2, FLAIR gradient echo, coronal T1, and axial diffusion-weighted imaging of the brain is obtained. After contrast administration, axial, coronal, and sagittal T1 images are obtained with the use of fat suppression. Findings: Diffusion-weighted sequence is normal demonstrating no acute infarct. On gradient echo, no significant susceptibility effects are seen. The examination of the brain demonstrates no intracranial mass or extra-axial fluid collection. No midline shift or focal mass effect is seen. There are a couple of nonspecific foci of hyperintense signal abnormality both within left frontal subcortical white matter and one within right frontal subcortical white matter more inferolaterally. No air-fluid levels are seen in the paranasal sinuses. With the administration of contrast, no abnormal enhancement is seen. Impression: No MR evidence of intracranial mass lesion. Procedure Note 06/07/2010 Brain MR with and without contrast Clinical indication: Headache and visual changes. Technique: Sagittal T1, axial T1, T2, FLAIR gradient echo, coronal T1, and axial diffusion-weighted imaging of the brain is obtained. After contrast administration, axial, coronal, and sagittal T1 images are obtained with the use of fat suppression. Findings: Diffusion-weighted sequence is normal demonstrating no acute infarct. On gradient echo, no significant susceptibility effects are seen. The examination of the brain demonstrates no intracranial mass or extra-axial fluid collection. No midline shift or focal mass effect is seen. There are a couple of nonspecific foci of hyperintense signal abnormality both within left frontal subcortical white matter and one within right frontal subcortical white matter more inferolaterally. No air-fluid levels are seen in the paranasal sinuses. With the administration of contrast, no abnormal enhancement is seen. Impression: No MR evidence of intracranial mass lesion. Pretty Avery MD IMG MRI ORDERABLES documented in this encounter Visit Diagnoses Not on filedocumented in this encounter
--- OUTSIDE RECORDS SUMMARY | 2024-03-30 13:27 | XMS_ITS | Encounter Summary ---
Author Organization [facility] Address [address] [place] [address] Care Team Providers Care Circus Roustabout Name Role Phone Pretty Avery MD Primary Care Provider [phone] Encounter Details Date Type Department Care Team (Late st Contact Info) Description 12/02/2005 Results Only [facility] [address] [place] [address] Jake Sabillon FNP [address] [place], [place] [address] Social History Tobacco Use Types Packs/Day Years Used Date Smoking Tobacco: Never Assessed Sex and Gender Information Value Date Recorded Sex Assigned at Not on file Gender Identity Not on file Sexual Orientation Not on file documented as of this encounter Plan of Treatment Not on file documented as of this encounter Procedures Procedure Name Priority Date/Time Associated Diagnosis Comments CYTOPATHOLOGY Routine 12/02/2005 0:00 EST documented in this encounter Results * CYTOPATHOLOGY (12/02/2005 0:00 EST) Pathology Report: CYTOPATHOLOGY REPORT Reports generated via electronic interface contain original data; however they are lacking the format of the original report. Caution should be taken when reading/interpreti ng unformatted reports. Name: ? ANNEEZEQUIEL GREEN ? Accession #: ? [id number] : ? 1965 (Age: 40) ??F ?Collect Date: ? 12/02/2005 Location: ? [facility] ? Receive Date: ? 12/04/2005 Provider: ?JAKE SABILLON SCALE ATTENDANT Copy to: ? Specimen/Source: ?ThinPrep Pap Test, Cervix/Endocervix, processed on [employer] ThinPrep Imaging System, with manual evaluation Last Menstrual Period: ? 11/26/05 Previous Gynecologic Pathology: ? Yes: in remote past Other: ? Additional clinical information: Hx genital warts HPVA - HPV testing requested if ASC-US on the current ThinPrep Pap test. ? SPECIMEN ADEQUACY ? Satisfactory for Evaluation - transformation zone component present GENERAL CATEGORIZATION ? Negative for Intraepithelial Lesion or Malignancy ? Document reviewed and electronically signed by: ? PHIL Lockwood(ASCP) ? Report Date: ??12/05/2005 15:17 End of Report [facility] 12/02/2005 12/04/2005 Jake GARCÍAP PATHOLOGY ORDERABLES [facility] [address] [place] [address] documented in this encounter Visit Diagnoses Not on filedocumented in this encounter Care Teams Circus Roustabout Relationship Specialty Start Date End Date Pretty Avery MD [address] [place] [address] PCP - General 06/05/10 documented as of this encounter
--- OUTSIDE RECORDS SUMMARY | 2024-03-30 13:27 | XMS_ITS | Encounter Summary ---
Author Organization [facility] Address [address] [place] [address] Care Team Providers Care Practice Nurse Name Role Phone Unavailable Primary Care Provider Unavailabl e Encounter Details Date Type Department Care Team (Late st Contact Info) Description 12/14/2006 Results Only [facility] [address] [place] [address] Jake Sabillon FNP [address] [place], [place] [address] Social History Tobacco Use Types Packs/Day Years Used Date Smoking Tobacco: Never Assessed Sex and Gender Information Value Date Recorded Sex Assigned at Not on file Gender Identity Not on file Sexual Orientation Not on file documented as of this encounter Plan of Treatment Not on file documented as of this encounter Procedures Procedure Name Priority Date/Time Associated Diagnosis Comments CYTOPATHOLOGY Routine 12/14/2006 0:00 EDT documented in this encounter Results * CYTOPATHOLOGY (12/14/2006 0:00 EDT) Pathology Report: CYTOPATHOLOGY REPORT Reports generated via electronic interface contain original data; however they are lacking the format of the original report. Caution should be taken when reading/interpreti ng unformatted reports. Name: ? EZEQUIEL THOMAS ? Accession #: ? [id number] : ? 1965 (Age: 41) ??F ?Collect Date: ? 12/14/2006 Location: ? [facility] ? Receive Date: ? 12/16/2006 Provider: ?JAKE SABILLON BUS OPERATOR Copy to: ? Specimen/Source: ?ThinPrep Pap Test, Cervix/Endocervix, processed on [employer] ThinPrep Imaging System, with manual evaluation Last Menstrual Period: ? 12/06/06 Other: ? Additional clinical information: Venereal warts in past HPVA - HPV testing requested if ASC-US on the current ThinPrep Pap test. ? SPECIMEN ADEQUACY ? Satisfactory for Evaluation - transformation zone component present GENERAL CATEGORIZATION ? Negative for Intraepithelial Lesion or Malignancy ? Document reviewed and electronically signed by: ? PHIL Fernández(ASCP) ? Report Date: ??12/17/2006 11:39 End of Report [facility] 12/14/2006 12/16/2006 Jake GARCÍAP PATHOLOGY ORDERABLES [facility] [address] [place] [address] documented in this encounter Visit Diagnoses Not on filedocumented in this encounter
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
--- OUTSIDE RECORDS SUMMARY | 2024-03-30 13:28 | XMS_ITS | Encounter Summary ---
[place] [address] Care Team Providers Care Parish Visitor Name Role Phone Pretty Avery MD Primary Care Provider [phone] Reason for Referral * Diagnostic Test (Routine) - Closed Specialty Diagnoses / Procedures Referred By Contac t Referred To Contact Cardiology Diagnoses Hyperlipidemia, unspecified hyperlipidemia type Procedures Mobile Demi Gross APRN [address] [place] [address] [facility] [place] [address] Referral ID Status Reason Start Date Expiration Date V isits Requested Visits Authorized [id number] Closed Specialty Service Requested 08/28/2023 08/27/2024 1 1 Reason for Visit * Diagnostic Test (Routine) - Closed Specialty Diagnoses / Procedures Referred By Contac t Referred To Contact Cardiology Diagnoses Hyperlipidemia, unspecified hyperlipidemia type Procedures Mobile Echo Demi Archibald APRN [address] [place] [address] [facility] [place] [address] Referral ID Status Reason Start Date Expiration Date V isits Requested Visits Authorized [id number] Closed Specialty Service Requested 08/28/2023 08/27/2024 1 1 Encounter Details Date Type Department Care Team (Latest Contact Info) Description 08/28/2023 3:53 PM EST - 08/28/2023 11:59 PM EST Hospital Encounter [place] [address] Demi Archibald APRN [address] [place] [address] Hyperlipidemia, unspecified hyperlipidemia type Discharge Disposition: Home Social History Tobacco [...] 10:40 AM EDT Office Visit Cardiology at [address] [phone] Herlinda Weaver PA [facility] [place] [address] documented as of this encounter Procedures Procedure Name Priority Date/Time Associated Diagnosis Comments ECHO COMPLETE Routine 08/28/2023 4:04 PM EST Hyperlipidemia, unspecified hyperlipidemia type documented in this encounter Results * ECHO COMPLETE (08/28/2023 4:04 PM EST) Anatomical Region Laterality Modality Other 08/28/2023 2:15 PM EST Narrative 08/28/2023 4:14 PM EST [address] [place] [id number] ? Echocardiogram Report Name: EZEQUIEL THOMAS ?Study Date: 08/28/2023 02:15 PM ? Patient Location: : 1965 ? Height: 157 cm ? Account: [id number] Age: 58 yrs ? Weight: 57 kg Gender: Female ?BSA: 1.6 m2 Ordering Physician: DEMI ARCHIBALD Referring Physician: DEMI ARCHIBALD Reason For Study: CAD, HLD, HTN Exam Location: [facility]. Interpretation Summary Normal biventricular size and function. LVEF 60-65% by visual assessment. Normal diastolic function. Normal pulmonary pressures. Normal atrial sizes. Mild mitral regurgitation. No prior for comparison. Procedure Complete-[id number]. Satisfactory quality. Left Ventricle Wall thickness is normal. There is no ventricular septal defect. Left ventricular size and systolic function is normal. Left ventricular ejection fraction is estimated visually at 60-65%. There are no segmental wall motion abnormalities. Right Ventricle The right ventricle is of normal size. Right ventricular systolic function is normal. Left Atrium The left atrium is normal. No abnormality of the interatrial septum is identified. Right Atrium The right atrium is normal. Aortic Valve The aortic valve is tricuspid. There is no aortic stenosis. Mitral Valve The mitral valve leaflets are thickened. There is no mitral stenosis. There is mild mitral regurgitation. Tricuspid Valve The tricuspid valve is structurally normal. There is trace tricuspid regurgitation. Pulmonic Valve The pulmonic valve appears to be structurally normal. There is no valvular pulmonic stenosis. There is trace pulmonic valve regurgitation. Great Arteries The aortic root is of normal size. No abnormalities are identified. The ascending aorta is dilated. Venous Inferior vena cava is normal in size. Inferior vena cava collapse greater than 50% with respiration. Pericardium/Pleural There is no pericardial effusion. Hemodynamics The peak right ventricular systolic pressure is 23.7 mmHg . The estimated right atrial pressure is 3mmHg. Left ventricular diastolic function is normal. Left ventricular filling pressure is normal. ? 2D Measurements ? Volumes ?IVSd: 0.64 cm ?LA Volume Index: ?LVIDd: 4.4 cm ?LVIDs: 3.1 cm ?28.1 ml/m2 ? SV(LVOT): 76.4 ml ?LVPWd: 0.66 cm ? LV Stroke Volume: 78.1 ml ?LV mass(C)d: 83.0 grams ?SI(LVOT): 48.8 ml/m2 ?LV mass(C)dI: 53.0 grams/m2 ?Ao root diam: 2.7 cm ?Ao root diam index: 1.7 ?asc Aorta Diam: 3.3 cm ?LVOT diam: 1.9 cm ?TAPSE_phl: 1.9 cm Doppler LV V1 VTI: 26.1 cm LVOT max Velocity: 107.5 cm/sec Ao V2 VTI: 37.7 cm Ao Max: 144.7 cm/sec Ao valve max: 8.4 mmHg Ao valve mean: 5.2 mmHg MV E max walt: 98.3 cm/sec MV A max walt: 103.3 cm/sec MV E/A: 0.95 MV dec time: 0.19 sec MV mean P.9 mmHg Lat Peak E' Walt: 9.9 cm/sec E/ e' (lat): 9.9 Med Peak E' Walt: 8.7 cm/sec E/e' (med): 11.2 E/e' Average: 10.6 JUICE(I,D): 2.0 cm2 Dimensionless index Aov: 0.69 MR ERO: 0.07 cm2 MR PISA radius: 0.49 cm MR volume: 17.3 ml TR max walt: 227.3 cm/sec RVSP(TR): 23.7 mmHg I ?WMSI = 1.00 ? % Normal = 100 ?Segments ??Size X - Cannot ?? 1 - Normal ?? 2 - ? 3 - Akinetic 4 - ?1-2 ? small Interpret ? Hypokinetic ?Dyskinetic ?? 3-5 ? moderate 5 - ? 6-14 ?large Aneurysmal ?15-16 ?? diffuse Procedure Note Kaylee Sutherland MD - 08/28/2023 [address] [place] [address] Echocardiogram Report Name: EZEQUIEL THOMAS Study Date:08/28/2023 02:15 PM Patient Location: : 1965 Height: 157 cm Account: [id number] Age: 58 yrs Weight: 57 kg Gender: Female BSA: 1.6 m2 Ordering Physician: DEMI ARCHIBALD Referring Physician: DEMI ARCHIBALD Reason For Study: CAD, HLD, HTN Exam Location: [facility]. Interpretation Summary Normal biventricular size and function. LVEF 60-65% by visual assessment.Normal diastolic function. Normal pulmonary pressures. Normal atrial sizes. Mild mitral regurgitation. No prior for comparison. Procedure Complete-[id number]. Satisfactory quality. Left Ventricle Wall thickness is normal. There is no ventricular septal defect. Leftventricular size and systolic function is normal. Left ventricular ejection fractionis estimated visually at 60-65%. There are no segmental wall motionabnormalities. Right Ventricle The right ventricle is of normal size. Right ventricular systolic functionis normal. Left Atrium The left atrium is normal. No abnormality of the interatrial septum isidentified. Right Atrium The right atrium is normal. Aortic Valve The aortic valve is tricuspid. There is no aortic stenosis. Mitral Valve The mitral valve leaflets are thickened. There is no mitral stenosis.There is mild mitral regurgitation. Tricuspid Valve The tricuspid valve is structurally normal. There is trace tricuspid regurgitation. Pulmonic Valve The pulmonic valve appears to be structurally normal. There is novalvular pulmonic stenosis. There is trace pulmonic valve regurgitation. Great Arteries The aortic root is of normal size. No abnormalities are identified. Theascending aorta is dilated. Venous Inferior vena cava is normal in size. Inferior vena cava collapse greaterthan 50% with respiration. Pericardium/Pleural There is no pericardial effusion. Hemodynamics The peak right ventricular systolic pressure is 23.7 mmHg . The estimatedright atrial pressure is 3mmHg. Left ventricular diastolic function is normal.Left ventricular filling pressure is normal. 2D Measurements Volumes IVSd: 0.64 cm LA VolumeIndex: LVIDd: 4.4 cm LVIDs: 3.1 cm 28.1 ml/m2 SV(LVOT): 76.4ml LVPWd: 0.66 cm LV Stroke Volume:78.1 ml LV mass(C)d: 83.0 grams SI(LVOT): 48.8ml/m2 LV mass(C)dI: 53.0 grams/m2 Ao root diam: 2.7 cm Ao root diam index: 1.7 asc Aorta Diam: 3.3 cm LVOT diam: 1.9 cm TAPSE_phl: 1.9 cm Doppler LV V1 VTI: 26.1 cm LVOT max Velocity: 107.5 cm/sec Ao V2 VTI: 37.7 cm Ao Max: 144.7 cm/sec Ao valve max: 8.4 mmHg Ao valve mean: 5.2 mmHg MV E max walt: 98.3 cm/sec MV A max walt: 103.3 cm/sec MV E/A: 0.95 MV dec time: 0.19 sec MV mean P.9 mmHg Lat Peak E' Walt: 9.9 cm/sec E/ e' (lat): 9.9 Med Peak E' Walt: 8.7 cm/sec E/e' (med): 11.2 E/e' Average: 10.6 JUICE(I,D): 2.0 cm2 Dimensionless index Aov: 0.69 MR ERO: 0.07 cm2 MR PISA radius: 0.49 cm MR volume: 17.3 ml TR max walt: 227.3 cm/sec RVSP(TR): 23.7 mmHg I WMSI = 1.00 % Normal = 100 SegmentsSize X - Cannot 1 - Normal 2 - 3 - Akinetic 4 - 1-2small Interpret Hypokinetic Dyskinetic 3-5moderate 5 - 6-14large Aneurysmal 15-16diffuse Demi Archibald APRN ECHO ORDERABLES documented in this encounter Visit Diagnoses Diagnosis Hyperlipidemia, unspecified hyperlipidemia type documented in this encounter Care Teams Parish Visitor Relationship Specialty Start Date End Date Pretty Avery MD [address] [place] [address] PCP - General 08/06/10 03/18/24 documented as of this encounter
--- OUTSIDE RECORDS SUMMARY | 2024-03-30 13:28 | XMS_ITS | Encounter Summary ---
Author Organization [facility] [place] [address] Care Team Providers Care Near East Archeology Professor Name Role Phone Pretty Avery MD Primary Care Provider [phone] Encounter Details Date Type Department Care Team (Late st Contact Info) Description 12/08/2023 10:30 AM EDT Office Visit Dermatology at [address] [place] [address] Aylin Cole MD [address] [place] [address] Skin cancer screening; Inflamed seborrheic keratosis; History of basal cell carcinoma (BCC); Seborrheic dermatitis; Seborrheic keratoses; Multiple benign nevi of upper extremity, lower extremity, and trunk; Lentigines; Garcia angioma Social History Tobacco Use Types Packs/Day Years Used Date Smoking Tobacco: Former Smokeless Tobacco: Never Sex and Gender Information Value Date Recorded Sex Assigned at Not on file Gender Identity Not on file Sexual Orientation Not on file documented as of this encounter Progress Notes * Aylin Cole MD - 12/08/2023 10:30 AM EDT Images from the original note were not included. DEPARTMENT OF DERMATOLOGY [facility] D[facility] Provider: Aylin Cole MD Patient's preferred name Isa Preferred contact method for results [x]Phone []myD-H []Letter Detailed phone message OK? Y Are there any other people with whom we may discuss your care? 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 Patient is new and self-referred to the clinic for full skin exam. Patient presents with the following concerns: -raised itchy spot on back which has been present for 6 months. Not currently treating -Itchy flaky scalp. Patient prefers to use organic products Medications: Reviewed in eD-H Allergies: Reviewed in eD-H Skin Examination: Full skin examination: Patient asked to undress to their comfort level. Verbalized that the provider???s preference is that the patient remove all clothing and that the provider will not examine areas patient elects to keep covered. Patient elects to keep underwear on and have the following examined: scalp, hair, face, ears, neck, chest, axillae, abdomen, back, and upper and lower extremities. Genitalia and buttocks were not examined. Assessment/Plan #. Inflamed Seborrheic Keratoses - Inflamed, stuck on, waxy papule on the left upper back . - Discussed benign nature of lesion(s) and provided reassurance. - Due to irritation present on today's exam and history of symptoms, discussed removal with cryotherapy. - Patient elects to proceed with cryotherapy today. Procedure: Destruction of lesion(s) with cryotherapy (LN2). Location(s): As noted above Number: 1 Discussed procedure and expectations including risks and benefits. Verbal consent obtained. Treatedwith LN2. There were no complications; Patient tolerated the procedure well. Post-procedure expectations and wound care were reviewed. #. Seborrheic Dermatitis - Diffuse greasy, loosely adherent scale throughout the scalp. - Discussed etiology and treatment options. - Recommended an OTC anti-dandruff shampoo, such as Head and Shoulders or Selsun Blue. Lather on scalp, leave on for 3-5 minutes, then rinse out. Start Rx: ketoconazole 2% shampoo: Lather onto scalp, leave for 5-10 min, then rinse. Perform 2-3 times per week. - Recommended rotating OTC dandruff shampoos containing salicylic acid (Tsal), zinc pyrithione (Head and Shoulders), selenium sulfide (Selsun Blue) daily, preferably alternating between several products weekly. #. Seborrheic Keratoses - Stuck on, waxy papules on the trunk and extremities. - Discussed benign nature of lesions and provided reassurance. No treatment necessary at this time. #. Benign Nevi - Scattered medium brown, evenly pigmented macules and papules on the trunk and extremities with reassuring pigment pattern on dermoscopy. - Discussed benign nature of lesions and provided reassurance. Will continue to monitor. #. Lentigines - Scattered light-brown, evenly pigmented, well-demarcated macules on sun-exposed areas of the trunk and extremities. - No worrisome pigmented lesions. Discussed benign nature of lesions and provided reassurance. Willcontinue to monitor. #. Garcia Angiomas - Multiple bright red, well-demarcated papules on the trunk and extremities. - Discussed benign nature of lesions and provided reassurance. No treatment necessary at this time. #. History of BCC - Well-healed scar on the left lower back per skin history. - No evidence of recurrence; will continue to monitor. Other: OTC skin products discussed RTC: 1 yr for FBSE otherwise PRN []Note routed to ward secretary [x]Recall placed in scheduling system []Appointment scheduled at checkout Scribe attestation: Juliet Angulo [facility] has performed the documentation for this encounter in the presence of and acting as a scribe for Aylin Cole MD. I performed the above scribed service and agree with the accuracy of the documentation in this encounter. Reviewed and signed by: Aylin Cole MD Dermatology [facility] documented in this encounter Plan of Treatment Upcoming Encounters Date Type Department Care Team (Late st Contact Info) Description 05/09/2024 10:40 AM EDT Office Visit Cardiology at [address] [place] [id number] Herlinda Weaver PA [facility] [place] [id number] documented as of this encounter Visit Diagnoses Diagnosis Skin cancer screening Screening for malignant neoplasm of the skin Inflamed seborrheic keratosis History of basal cell carcinoma (BCC) Seborrheic dermatitis Seborrheic dermatitis, unspecified Seborrheic keratoses Multiple benign nevi of upper extremity, lower extremity, and trunk Lentigines Other dyschromia Garcia angioma Nevus, non-neoplastic documented in this encounter Care Teams Near East Archeology Professor Relationship Specialty Start Date End Date Pretty Avery MD [address] [place] [address] PCP - General 08/06/10 03/18/24 documented as of this encounter
--- OUTSIDE RECORDS SUMMARY | 2024-03-30 13:28 | XMS_ITS | Encounter Summary ---
Author Organization [facility] [place] [address] Care Team Providers Care Coal Getter Name Role Phone Pretty Avery MD Primary Care Provider [phone] Encounter Details Date Type Department Care Team (Latest Contact Info) Description 03/18/2024 11:37 PM EDT - 03/18/2024 11:59 PM EDT Hospital Encounter [place] [phone] Destin Ambrosoi MD [facility] [place] [address] Discharge Disposition: Home Social History Tobacco Use Types Packs/Day Years Used Date Smoking Tobacco: Former Smokeless Tobacco: Never DH IPV Inpatient Questions Answer Date Recorded [...] 10:40 AM EDT Office Visit Cardiology at [address] [place] [address] Herlinda Weaver PA [facility] [place] [address] documented as of this encounter Visit Diagnoses Not on filedocumented in this encounter Care Teams Coal Getter Relationship Specialty Start Date End Date Pretty Avery MD [address] [place] [address] PCP - General 08/06/10 03/18/24 documented as of this encounter
--- OUTSIDE RECORDS SUMMARY | 2024-03-30 13:28 | XMS_ITS | Encounter Summary ---
Author Organization [facility] [place] [address] Care Team Providers Care Cannery Worker Name Role Phone Pretty Avery MD Primary Care Provider [phone] Reason for Visit * Reason Comments Skin Check Encounter Details Date Type Department Care Team (Late st Contact Info) Description 02/04/2017 1:15 PM EDT Office Visit Dermatology at [facility] [address] [place] [address] Lisa Candelario MD [facility] [address] [place] [address] Seborrheic keratosis; Multiple benign nevi; History of basal cell cancer Social History Tobacco Use Types Packs/Day Years Used Date Smoking Tobacco: Former Smokeless Tobacco: Never Sex and Gender Information Value Date Recorded Sex Assigned at Not on file Gender Identity Not on file Sexual Orientation Not on file documented as of this encounter Progress Notes * Lisa Candelario MD - 02/04/2017 1:15 PM EDT DERMATOLOGY ESTABLISHED PATIENT CLINIC NOTE Date of service: 02/04/2017 Isa Ro : 1965 Provider: Lisa Candelario MD Chief Complaint Patient presents with ??? Skin Check SKIN HISTORY: Left lower back, sBCC , ED&C on 12-19-15-[facility] Father had many skin cancers on face type unknown Seborrheic keratosis HPI Isa Ro is a 51 y.o. year old female. Presents to clinic today for a full skin exam. Patient was last seen by me on 12/19/2015. She mentions the site on back which was ED&C'ed last visit for a biopsy proven SBCC tends to itch occasionally. Not very bothered by it. ADR: No Known Allergies MEDS: No current outpatient prescriptions on file. No current facility-administered medications for this visit. ROS General: feeling well Skin: denies other skin complaints EXAM General: NAD, pleasant, cooperative Skin: Patient was asked to disrobe to the level of their comfort. A total body skin exam except for areas covered by underwear was performed. This includes examination of the skin of the scalp, face, ears, neck, chest, axillae, left and right upper and lower extremities, hands and feet, back, abdomen, and except the areas covered by underwear were not examined per patient request. Significant skin findings: A. Left lower back: Well-healed hypopigmented scar, no signs of recurrence B. Torso: Multiple, medium-brown, evenly-pigmented macules and papules. All with regular pigment pattern on dermoscopy. No pigmented lesions suspicious for melanoma. C. Torso: 0.4-0.6 cm pink-brown papules/plaque with waxy stuck on appearance. ASSESSMENT/PLAN: A. H/O sBCC, NER - Will continue to monitor - No evidence of hypertrophic scar B. Benign appearing nevi, patient reassured - Patient instructed to return to clinic for re-evaluation of area if notes change, growth, bleeding, etc. - Advised to watch for anything new or changing. C. Seborrheic keratoses - Discussed benign nature of lesion and provided reassurance. No treatment necessary at this time. - The nature of sun-induced photo-aging and skin cancers is discussed. Sun avoidance, protective clothing, and the use of 30-SPF broad spectrum sunscreens is advised. Observe closely for skin damage/changes, and call if such occurs. Follow up: Return to clinic in 1 year for full skin exam, or sooner if needed. A reminder letter will be sent to schedule. Patient instructed to call with questions or concerns. I am documenting this encounter acting as the scribe for and in the presence of Dr. Candelario.: Isa Anton LPN and Nadia Peng, Clinical Scribe I performed the above scribed service and agree with the accuracy of the documentation in this encounter. Lisa Candelario MD Section of Dermatology [facility] documented in this encounter Plan of Treatment Upcoming Encounters Date Type Department Care Team (Late st Contact Info) Description 05/09/2024 10:40 AM EDT Office Visit Cardiology at [address] [place] [address] Herlinda Weaver PA [facility] [place] [address] documented as of this encounter Visit Diagnoses Diagnosis Seborrheic keratosis Other seborrheic keratosis Multiple benign nevi Benign neoplasm of skin, site unspecified History of basal cell cancer Personal history of other malignant neoplasm of skin documented in this encounter Care Teams Cannery Worker Relationship Specialty Start Date End Date Pretty Avery MD [address] [place] [address] PCP - General 08/06/10 03/18/24 documented as of this encounter
--- OUTSIDE RECORDS SUMMARY | 2024-03-30 13:28 | XMS_ITS | Encounter Summary ---
Author Organization [facility] [place] [address] Care Team Providers Care Oral Surgery Assistant Name Role Phone Pretty Avery MD Primary Care Provider [phone] Encounter Details Date Type Department Care Team (Latest Contact Info) Description 12/08/2023 Travel Social History Tobacco Use Types Packs/Day Years [...] 10:40 AM EDT Office Visit Cardiology at [address] [place] [address] Herlinda Weaver [place] [facility] [place] [address] documented as of this encounter Visit Diagnoses Not on filedocumented in this encounter Care Teams Oral Surgery Assistant Relationship Specialty Start Date End Date Pretty Avery MD [address] [place] [address] PCP - General 08/06/10 03/18/24 documented as of this encounter
--- OUTSIDE RECORDS SUMMARY | 2024-03-30 13:28 | XMS_ITS | Encounter Summary ---
Author Organization [facility] [place] [address] Care Team Providers Care Head Irrigator Name Role Phone None Primary Care Provider Unavailabl e Reason for Visit * Auth/Cert (Routine) Specialty Diagnoses / Procedures Referred By Contac t Referred To Contact Diagnoses Acute ST elevation myocardial infarction (STEMI) due to occlusion of left anterior descending (LAD) coronary artery stemi Procedures EMERGENCY IPI Destin Ambrosio MD [facility] [place] [address] [facility] Referral ID Status Reason Start Date Expiration Date Visits Re quested Visits Authorized [id number] 1 1 Encounter Details Date Type Department Care Team (Late st Contact Info) Description 03/19/2024 1:05 AM EDT - 03/19/2024 2:06 AM EDT Surgery [place] [address] Ramo Roy MD [facility] [place] [address] CARDIAC CATHETERIZATION Social History Tobacco Use Types Packs/Day Years Used Date Smoking Tobacco: Former Smokeless Tobacco: Never Alcohol Use Standard Drinks/Week Comments Yes 14 (1 standard drink = 0.6 oz pu re alcohol) [facility] Inpatient Questions Answer Date Recorded Does Anyone [...] Sign Reading Time Taken Comments Blood Pressure 118/68 03/19/2024 2:00 AM EDT Pulse 65 03/19/2024 2:00 AM EDT Temperature 37.1 ??C (98.8 ??F) 03/19/2024 2:00 AM ED T Respiratory Rate 24 03/19/2024 2:00 AM EDT Oxygen Saturation 100% 03/19/2024 2:00 AM EDT Inhaled Oxygen Concentration - - Weight 57.1 kg (125 lb 14.1 oz) 03/19/2024 2:00 AM EDT Height - - Body Mass Index 22.18 03/22/2024 4:06 AM EDT documented in this encounter Discharge Summaries * Kathryn Walker MD - 03/22/2024 11:41 AM EDT Discharge Summary Patient Name: Isa Ro Patient Age: 59 y.o. 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 Patient briefly [...] given mildly reduced LVEF [ ] f/u [facility] cardiology scheduled. [facility] cardiology referral sent Inpatient Provider Contact Information: Kathryn Walker MD [phone] For questions regarding this document or issues relating to this hospitalization on the Medical Service, please contact your inpatient physician through the [facility] Electronics Lead . Issues afterhours and on weekends will [...] 03/19/2024 8:37 AM) Result Value WORKSTATION ID [id number] Narrative EXAMINATION: XR CHEST ONE VIEW CLINICAL [...] who have questions please contact the health hearing care practitioner that requested your imaging first. Cardiac Catheterization (Exam End: 03/19/2024 1:36 AM) Narrative [facility] Cardiac Catheterization/Intervention Report Patient Name: Isa Ro Procedure Date: 03/19/2024 A #: [id number] Primary Physician: Ramo Roy Case #: [id number] File Name: [id number] Catheterization Order Number: [id number] [facility] Business Development Analyst [facility] Final Report [place], [place] Patient Name: Isa Ro ID#: [id number] : 1965 Procedure Date: March 19, 2024 [...] was designated as ASA Class IV. The [facility] clinical frailty scale is 3: Managing Well. Diagnostic Tests: Prior Coronary Angiography: Prior coronary angiography was performed on 12/15/2014. Electrocardiography: EKG was assessed by ECG. EKG was Abnormal. EKG showed ST Deviation >= 0.5 mm and other abnormality. Medications Prior to Procedure: Aspirin. Indications for Diagnostic Cath: The priority of the diagnostic procedure was Emergent. The indication for the dairy and food laboratory assistant visit is ACS less than or equal [...] 3.5 guiding catheter and a 3.5 Fr [facility] [place] [place] 20 Mhz using auto 1 mm/sec pullback. [...] priority for the procedure was Emergent. The [facility] indication for the procedure was STEMI-Immediate [...] A premounted 3.00 x 08 mm Alberto Linwood (JAHAIRA) was deployed with a maximum inflation pressure of 12 atmospheres. Another stent insertion was accomplished through a 6 Fr. EBU 3.5 guide. A premounted 2.00 x 08 mm Alberto Linwood (JAHAIRA) was deployed. The final outcome was defined [...] dose administered prior to arrival in the dairy and food laboratory assistant. Recommended anti-platelet/anti-thrombotic regimen: Start aspirin 81 mg daily now and continue for indefinitely. Start clopidogrel 75 mg daily now and continue for 12 months then stop. These recommendations are made at the time of the intervention. Patient and provider preferences or a changing clinical situation may require modification of this regimen. Consult [facility] Interventional Cardiology for questions. The 1 year [...] against any medical treatment. Consult http://tools.acc.org/DAPTriskapp/#!/content/calculator/ or [facility] Interventional Cardiology for questions Conclusions: * One [...] decreased and new wall motion abnormalities. Procedure Complete-88224. Image enhancement Definity was used for left [...] disease s/p PCI to LAD in 03/2014, HLD, who presented to [facility] with chest pain. She developed chest pain around 2100 on 03/18 which prompted her to call EMS. She was given 325mg of aspirin and nitroglycerin. On arrival to [facility], she was found to have an EKG suggestive of anterior STEMI for which she was given half dose TNKfor systemic lysis prior to speaking with Dr. Herrera, on-call extractor operator helper at [facility]. She was subsequently transferred directly to the [facility] dairy and food laboratory assistant where coronary angiography revealed a 100% occluded [...] 22.18 Height: 157.5 cm (5' 2.01) (03/22/24 0406) Weight: 55 kg (121 lb 4.8 oz) (03/22/24 0406) Functional and Cognitive Status: at baseline Awake, [...] Mg, Phos Recent Labs 03/22/24 0506 03/19/24 0525 03/19/24 0220 CALCIUM 9.2 < > 8.2* PHOS -- -- 3.8 MAGNESIUM 0.90 < > 0.71 < > = values in this interval not displayed. Last 3 Coags Recent Labs 03/19/24 0525 03/19/24 0220 PT 10.9 11.7 INR 1.0 1.0 PTT 29 123* Last 3 ProBNP, Trop, CK Recent Labs 03/19/24 0220 PROBNP 529* Last 3 TFT No results for input(s): TSH in the last 7068 hours. Invalid input(s): T4, FT4 Last 3 Lipids Recent Labs 03/19/24 0525 CHLPL 324 HDL 68 LDLCHOL 216 TRIG 200 Last 3 HgbA1C Recent Labs 03/19/24 0525 HA1C 5.6 Pending Studies and Lab Data: [...] away. Stay on the phone. The emergency black top machine operator will tell you what to do. [...] of 8AM-5PM please call the Cardiology Clinic [phone] to speak with a nurse. All other hours please call the Hospital Electronics Lead [phone] and ask to speak to the cardiovascular hospitalist on-call. Return to work: One week Follow up Appointments: Doctor Where Phone # Date Time PCP MELECIO Polanco [address] [place] [address] 04/04/24 7:55 AM District Wildlife Manager Herlinda Weaver PA-C [facility] Cardiology 4A Clinic [phone] 05/09/24 10:40 AM (pleasearrive by 10:20 AM) *A referral has also been placed to [facility] cardiology, though you will need to follow-up with them regarding scheduling appointments at [phone] General Instructions None Future Appointments and Orders Future Appointments and Orders Future Appointments Provider Department Dept Phone 05/09/2024 10:40 AM Herlinda Weaver PA Cardiology at [facility] Arrive at: Vacuum Cleaner Operator Area 4A [phone] Future Orders Complete By Expires Referral to Cardiac Rehab [[id number] Custom] As directed Process Instructions: If no progress note charted, please enter Clinical details in comments. Scheduling Instructions: Questions: My question or request is: s/p STEMI- cardiac rehab at [facility] Referral to Cardiology [REF12 Custom] As directed Process Instructions: If no progress note charted, please enter Clinical details in comments. Scheduling Instructions: Questions: My question or request is: s/p STEMI Discharge References/Attachments None Greater than 30 minutes was spent on this discharge including documentation, [id number] time withthe patient, patient education, sales order clerk, coordination with pharmacy and other patient care. [...] away. Stay on the phone. The emergency black top machine operator will tell you what to do. [...] cardiac rehab has also been placed to [facility]. Call your doctor if: Chest pain, dyspnea, pain or swelling in legs occurs, or for weight gain of 2 pounds overnight or 5pounds in 5 days. If you have non-emergent questions, prior to your follow-up visit call: Thursday-Thursday between the hours of 8AM-5PM please call the Cardiology Clinic [phone] to speak with a nurse. All other hours please call the Hospital Electronics Lead [phone] and ask to speak to the cardiovascular hospitalist on-call. Return to work: One week Follow up Appointments: Doctor Where Phone # Date Time PCP MELECIO Polanco [address] [place], [place] [address] 04/04/24 7:55 AM District Wildlife Manager Herlinda Weaver PA-C [facility] Cardiology 4A Clinic [phone] 05/09/24 10:40 AM (pleasearrive by 10:20 AM) *A referral has also been placed to [facility] cardiology, though you will need to follow-up with them regarding scheduling appointments at [phone] documented in this encounter Medications at Time [...] agreed to participate in cardiac rehab at [facility] following discharge Review of Systems: Review of [...] is at baseline. 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 She was also a bit hypercapnic which [...] pt re: Losartan/GDMT consideration -Cardiac Rehab at [facility] following discharge -Telemonitoring x72 hours -Plan for discharge tomorrow -Cardiology appointment scheduled 05/09/2024 at 10:40 AM t [facility] #Significant HLD -LDL 324 -Atorvastatin 80mg daily [...] baseline. 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 I asked [...] Mcbride MD - 03/19/2024 2:50 AM EDT [facility] TeleICU Initial Assessment Note I established audio/visual communication with the patient's room, reviewed the eDH. History and Assessment: 59 yo F transferred from [facility] for a STEMI alert. Received ASA [...] Lipitor, NTG gtt, 2D echo as per CC This is a non-billable note. * Delores [...] => BiPAP started Following procedure, transferred to [facility] - able to be weaned to [...] 10:00 PM Hospital to which patient presented: [facility] Hospital to which patient presented= [facility]: ED via EMS Date and Time of [...] Not contraindicated Plan STEMI Alert called: Yes Business Development Analyst Activated by: Retail Banker Initial Disposition: Admit Business Development Analyst documented in this encounter H&P Notes * [...] to LAD in 03/2014, HLD,who presented to [facility] with chest pain. She developed chest pain around 2100 on 03/18 which prompted her to call EMS. She was given 325mg of aspirin and nitroglycerin. On arrival to [facility], she was found to have an EKG suggestive of anterior STEMI for which she was given half dose TNK for systemic lysis prior to speaking with Dr. Herrera, on-call extractor operator helper at [facility]. 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 She was also a bit hypercapnic which [...] Cardiopulmonary Resuscitation - Inpatient Ganesh Nguyen MD Retail Banker [id number] documented in this encounter Miscellaneous Notes [...] Care: Contact information for follow-up Cardiac Rehab, [facility] [address] [facility] [address] Cardiology, [facility] [address] [facility] [address] Transportation: family or friend will provide Functional [...] 03/21/2024 4:02 PM EDT Patient completed a [place] advance directive. Patient identified her sister Stacia [...] N/A ; Prescription Coverage: Yes Preferred Pharmacy: [facility] [address] [facility] [address] [place] [address] [employer] [address] [facility] [address] [id number] [place], [place] - [address] [place] [address] [address] [facility] [address] [facility] [address] [facility] [address] - [place], [place] - [address] [facility] [address] [facility] [address] Advance Care Planning: Attempt Cardiopulmonary Resuscitation - Inpatient <no information> -Advanced Directive: No, need to discuss (RS referral sent for AD discussion) Current Functional Ability: Assistive Person Functional Status Prior to Admission: Independent Home Environment: Others in the home: child(lucian), minor (lives with her 15yo son). Current Living Arrangements: home/apartment/condo. Accessibility Concerns:house with 3 floors and 2 [address]. Current DME: none [address] [facility] [address] Social & Family Supports: All names listed below confirmed with patient as current and correct Extended Emergency Contact Information Primary Emergency Contact: Tiffany Ro [facility] [place] Relation: Mother Current Care Provided by: [...] friend when medically ready. Referral sent to for AD discussion today. Registered Nurse Impregnating Tank Operator / Supervisor [employer] will continue to follow patient???s progress and remain available if situation changes for coordination of care, psychosocial support and/or discharge planning. Office of Care Management Cyndy Suárez RN * Consult Note - Marina Salvador [...] in an outpatient cardiac rehabilitation program at [facility] was discussed. Patient agrees to a referral to this program. The referral will be sent at discharge and the patient should be contacted by the Program within 1-2 weeks from discharge. * Plan of Care - Javon Syeks RN - 03/20/2024 7:52 PM EDT Problem: [...] Operative Note Patient Name: Isa Ro : [id number] MR#: [id number] Case Date: 03/19/2024 Surgeon: Surgeons and Role: [...] 10:40 AM EDT Office Visit Cardiology at [address] [place] [address] Herlinda Weaver PA [facility] [place] [address] Scheduled Referrals Name Type Priority Associated Diagnoses [...] 2:57 AM EDT DIFFERENTIAL, AUTOMATED Routine 03/21/20 24 2:57 AM EDT HC VENIPUNCTURE Routine 03/21/2024 2:57 AM EDT HC CBC,PLT & AUTO DIFF Routine 4 2:57 AM EDT HC MAGNESIUM, SERUM Routine 03/21/2024 2 :57 AM EDT BASIC METABOLIC PANEL (NON-FASTING) Routine 03/21/2024 2:57 AM EDT HEMOGRAM Routine 03/20/2024 10:38 AM EDT DIFFERENTIAL, AUTOMATED Routine 03/20/20 24 10:38 AM EDT IRON AND TIBC Routine [...] 5:25 AM EDT DIFFERENTIAL, AUTOMATED Routine 03/19/20 24 5:25 AM EDT HC PARTIAL THROMBOPLASTIN TIME [...] 2:20 AM EDT DIFFERENTIAL, AUTOMATED Routine 03/19/20 24 2:20 AM EDT HC PARTIAL THROMBOPLASTIN TIME [...] 5:06 AM EDT) Neutrophils % 71.6 % [facility] Neutr Abs (ANC) 8.34(H) 1.70 - 6.10 x10(3)/mc L [facility] Lymphocytes % 17.4 % [facility] Lymphocytes Abs 2.0 0.9 - 3.2 x10(3)/mc L [facility] Monocytes % 8.2 % [facility] Monocyte Abs 1.0(H) 0.3 - 0.9 x10(3)/mc L [facility] Eosinophils % 2.2 % [facility] Eosinophils Abs 0.3 0.0 - 0.4 x10(3)/mc L [facility] Basophils % 0.3 % [facility] Basophils Abs 0.0 0.0 - 0.1 x10(3)/mc L [facility] Immature Gran % 0.30 % [facility] Comment: Immature granulocytes(IG's)percentage and absolute count will include metamyelocytes, myelocytes, and promyelocytes. Blood smears from CBCs yielding IG's will be scanned manually for concordance. If this scan disagrees with the automated IG or if promyelocytes are noted, a manual differential will be performed. Lesia Gran Abs 0.03 0.00 - 0.04 x10(3)/ L [facility] Blood 03/22/2024 5:06 AM EDT 03/22/2024 5:12 AM EDT Narrative Resulting Agency Comment Spec In Lab Horace Hancock MD HEMATOLOGY ORDERABLE S [facility] [place] [address] * (ABNORMAL) Hemogram (03/22/2024 5:06 AM EDT) WBC 11.6(H) 4.0 - 9.5 x10(3)/[facility] LABORATORY RBC 4.80 4.00 - 5.21 x10(6)/[facility] LABORATORY Hemoglobin 13.5 11.7 - 15.5 g/dL [facility] Hematocrit 40.3 35.7 - 45.8 % [facility] MCV 84.0 82.6 - 94.4 fL [facility] MCH 28.1 27.1 - 32.0 pg [facility] MCHC 33.5 31.7 - 35.0 g/dL [facility] Platelets 232 145 - 357 x10(3)/[facility] LABORATORY RDWSD 42.2 37.0 - 46.0 fL [facility] RDWCV 13.5 11.5 - 14.1 % [facility] MPV 9.7 7.6 - 12.9 fL [facility] nRBC % Auto 0.0 % [facility] nRBC Abs Auto 0.000 0.000 - 0.000 x10(3)/mcL [facility] Blood 03/22/2024 5:06 AM EDT 03/22/2024 5:12 AM EDT Narrative Resulting Agency Comment Spec In Lab Horace Hancock MD HEMATOLOGY ORDERABLE S [facility] [place] [address] * Basic Metabolic Panel (non-fasting) (03/22/2024 5:06 AM EDT) Glucose Lvl 107 65 - 199 mg/dL [facility] Comment:Diabetes: >=200 mg/d L plus symptoms BUN 18 8 - 18 mg/dL [facility] Creatinine 0.87 0.70 - 1.20 mg/dL [facility] Sodium 138 135 - 145 mmol/L [facility] Potassium 4.1 3.5 - 5.0 mmol/L [facility] Comment: Please note: ??Patients with WBC >100,000 may have falsely elevated Potassium levels. ??For accurate Potassium quantification in these patients send serum separator tube (gold top) for subsequent determinations. ??Contact the Clinical Chemistry Laboratory if there are any questions. Chloride 104 98 - 107 mmol/L [facility] CO2 24 22 - 31 mmol/L [facility] Anion Gap 10 5 - 15 mmol/L [facility] Calcium 9.2 8.5 - 10.5 mg/dL [facility] Estimated GFR 76 >=60 mL/min/1. 73 m?? [facility] Comment: This patient's estimated GFR [...] Hancock MD CHEMISTRY ORDERABLES Performing Organization Address City/[facility]/ZIP Co de Phone Number [facility] [place] [address] * Magnesium (03/22/2024 5:06 AM EDT) Magnesium 0.90 0.69 - 1.07 mmol/L [facility] Blood 03/22/2024 5:06 AM EDT 03/22/2024 5:12 AM EDT Narrative Resulting Agency Comment Spec In Lab Destin Ambrosio MD CHEMISTRY ORDERABLES Performing Organization Address City/[facility]/ZIP Co de Phone Number [facility] [place] [address] * (ABNORMAL) Differential, Automated (03/21/2024 2:57 AM EDT) Neutrophils % 63.0 % [facility] Neutr Abs (ANC) 6.70(H) 1.70 - 6.10 x10(3)/mc L [facility] Lymphocytes % 24.9 % [facility] Lymphocytes Abs 2.6 0.9 - 3.2 x10(3)/mc L [facility] Monocytes % 8.7 % [facility] Monocyte Abs 0.9 0.3 - 0.9 x10(3)/mc L [facility] Eosinophils % 2.8 % [facility] Eosinophils Abs 0.3 0.0 - 0.4 x10(3)/mc L [facility] Basophils % 0.3 % [facility] Basophils Abs 0.0 0.0 - 0.1 x10(3)/[facility] LABORATORY Immature Gran % 0.30 % [facility] Comment: Immature granulocytes(IG's)percentage and absolute count will include metamyelocytes, myelocytes, and promyelocytes. Blood smears from CBCs yielding IG's will be scanned manually for concordance. If this scan disagrees with the automated IG or if promyelocytes are noted, a manual differential will be performed. Lesia Gran Abs 0.03 0.00 - 0.04 x10(3)/[facility] LABORATORY Blood 03/21/2024 2:57 AM EDT 03/21/2024 3:03 AM EDT Narrative Resulting Agency Comment Spec In Lab Horace Hancock MD HEMATOLOGY ORDERABLE S Performing Organization Address City/State/[facility] Co de Phone Number [facility] [place] [address] * (ABNORMAL) Hemogram (03/21/2024 2:57 AM EDT) WBC 10.6(H) 4.0 - 9.5 x10(3)/[facility] LABORATORY RBC 4.54 4.00 - 5.21 x10(6)/[facility] LABORATORY Hemoglobin 12.8 11.7 - 15.5 g/dL [facility] Hematocrit 38.2 35.7 - 45.8 % [facility] MCV 84.1 82.6 - 94.4 [facility] LABORATORY MCH 28.2 27.1 - 32.0 pg [facility] MCHC 33.5 31.7 - 35.0 g/dL [facility] Platelets 242 145 - 357 x10(3)/[facility] LABORATORY RDWSD 42.4 37.0 - 46.0 [facility] LABORATORY RDWCV 13.7 11.5 - 14.1 % [facility] MPV 9.5 7.6 - 12.9 [facility] LABORATORY nRBC % Auto 0.0 % [facility] nRBC Abs Auto 0.000 0.000 - 0.000 x10(3)/mcL [facility] Blood 03/21/2024 2:57 AM EDT 03/21/2024 3:03 AM EDT Narrative Resulting Agency Comment Spec In Lab Horace Hancock MD HEMATOLOGY ORDERABLE S [facility] [place] [address] * Basic Metabolic Panel (non-fasting) (03/21/2024 2:57 AM EDT) Glucose Lvl 98 65 - 199 mg/dL [facility] Comment:Diabetes: >=200 mg/d L plus symptoms BUN 15 8 - 18 mg/dL [facility] Creatinine 0.82 0.70 - 1.20 mg/dL [facility] Sodium 144 135 - 145 mmol/L [facility] Potassium 4.2 3.5 - 5.0 mmol/L [facility] Comment: Please note: ??Patients with WBC >100,000 may have falsely elevated Potassium levels. ??For accurate Potassium quantification in these patients send serum separator tube (gold top) for subsequent determinations. ??Contact the Clinical Chemistry Laboratory if there are any questions. Chloride 107 98 - 107 mmol/L [facility] CO2 25 22 - 31 mmol/L [facility] Anion Gap 12 5 - 15 mmol/L [facility] Calcium 9.2 8.5 - 10.5 mg/dL [facility] Estimated GFR 82 >=60 mL/min/1. 73 m?? [facility] Comment: This patient's estimated GFR [...] Hancock MD CHEMISTRY ORDERABLES Performing Organization Address City/[facility]/ZIP Co de Phone Number [facility] [place] [address] * Magnesium (03/21/2024 2:57 AM EDT) Magnesium 0.91 0.69 - 1.07 mmol/L [facility] Blood 03/21/2024 2:57 AM EDT 03/21/2024 3:03 AM EDT Narrative Resulting Agency Comment Spec In Lab Destin Ambrosio MD CHEMISTRY ORDERABLES Performing Organization Address [facility] Co de Phone Number [facility] [place] [address] * Metanephrines, Fractionated Free, plasma (03/21/2024 2:57 AM EDT) Normetane Free 0.47 <0.90 nmol/L [facility] Comment: Test Performed by: [facility] - [address] [address] Business Development Engineer: Chasity Hernandez Ph.D.; CLIA# [id number] Metanephr Free <0.20 <0.50 nmol/L [facility] Comment: ADDITIONAL INFORMATION This test was developed and its performance characteristics determined by [facility] in a manner consistent with CLIA requirements. This test has not been cleared or approved by the U.S. Food and Drug Administration. Test Performed by: [facility] - [facility] [address] [place] [address] Business Development Engineer: Chasity Hernandez Ph.D.; CLIA# [id number] Blood 03/21/2024 2:57 AM EDT 03/21/2024 11:29 AM EDT Narrative Resulting Agency Comment Spec In Lab Horace Hancock MD CHEMISTRY ORDERABLES Performing Organization Address City/[facility]/ZIP Co de Phone Number [facility] [place] [address] * Iron and TIBC (03/20/2024 10:38 AM EDT) [facility] Iron 57 30 - 150 mcg/dL [facility] TIBC 278 250 - 450 mcg/dL [facility] Iron Saturation 21 20 - 50 % [facility] Blood Venous Draw / Unknown 03/20/2024 10:38 AM EDT 03/20/2024 10:52 AM EDT Narrative Resulting Agency Comment Spec In Lab Horace Hancock MD CHEMISTRY ORDERABLES Performing Organization Address City/[facility] Co de Phone Number [facility] [place] [address] * (ABNORMAL) Differential, Automated (03/20/2024 10:38 AM EDT) [facility] Neutrophils % 73.1 % [facility] Neutr Abs (ANC) 9.60(H) 1.70 - 6.10 x10(3)/mc L [facility] Lymphocytes % 17.3 % [facility] Lymphocytes Abs 2.3 0.9 - 3.2 x10(3)/mc L [facility] Monocytes % 7.5 % [facility] Monocyte Abs 1.0(H) 0.3 - 0.9 x10(3)/mc L [facility] Eosinophils % 1.5 % [facility] Eosinophils Abs 0.2 0.0 - 0.4 x10(3)/[facility] LABORATORY Basophils % 0.3 % [facility] Basophils Abs 0.0 0.0 - 0.1 x10(3)/[facility] LABORATORY Immature Gran % 0.30 % [facility] Comment: Immature granulocytes(IG's)percentage and absolute count will include metamyelocytes, myelocytes, and promyelocytes. Blood smears from CBCs yielding IG's will be scanned manually for concordance. If this scan disagrees with the automated IG or if promyelocytes are noted, a manual differential will be performed. Lesia Gran Abs 0.04 0.00 - 0.04 x10(3)/[facility] LABORATORY Blood 03/20/2024 10:3 8 AM EDT 03/20/2024 10:47 AM EDT Narrative Resulting Agency Comment Spec In Lab Horace Hancock MD HEMATOLOGY ORDERABLE S [facility] [place] [address] * (ABNORMAL) Hemogram (03/20/2024 10:38 AM EDT) WBC 13.2(H) 4.0 - 9.5 x10(3)/[facility] LABORATORY RBC 4.66 4.00 - 5.21 x10(6)/[facility] LABORATORY Hemoglobin 13.0 11.7 - 15.5 g/dL [facility] Hematocrit 38.7 35.7 - 45.8 % [facility] MCV 83.0 82.6 - 94.4 fL [facility] MCH 27.9 27.1 - 32.0 pg [facility] MCHC 33.6 31.7 - 35.0 g/dL [facility] Platelets 238 145 - 357 x10(3)/[facility] RDWSD 41.7 37.0 - 46.0 [facility] LABORATORY RDWCV 13.8 11.5 - 14.1 % [facility] MPV 9.8 7.6 - 12.9 [facility] LABORATORY nRBC % Auto 0.0 % [facility] nRBC Abs Auto 0.000 0.000 - 0.000 x10(3)/mcL [facility] Blood 03/20/2024 10:3 8 AM EDT 03/20/2024 10:47 AM EDT Narrative Resulting Agency Comment Spec In Lab Horace Hancock MD HEMATOLOGY ORDERABLE S Performing Organization Address City/[facility]/ZIP Co de Phone Number [facility] [place] [address] * Magnesium (03/20/2024 10:38 AM EDT) Magnesium 0.88 0.69 - 1.07 mmol/L [facility] Blood 03/20/2024 10:3 8 AM EDT 03/20/2024 10:47 AM EDT Narrative Resulting Agency Comment Spec In Lab Horace Hancock MD CHEMISTRY ORDERABLES Performing Organization Address [facility] Co de Phone Number [facility] [place] [address] * Basic Metabolic Panel (non-fasting) (03/20/2024 10:38 AM EDT) Glucose Lvl 108 65 - 199 mg/dL [facility] Comment:Diabetes: >=200 mg/d L plus symptoms BUN 11 8 - 18 mg/dL [facility] Creatinine 0.82 0.70 - 1.20 mg/dL [facility] Sodium 137 135 - 145 mmol/L [facility] Potassium 4.3 3.5 - 5.0 mmol/L [facility] Comment: Please note: ??Patients with WBC >100,000 may have falsely elevated Potassium levels. ??For accurate Potassium quantification in these patients send serum separator tube (gold top) for subsequent determinations. ??Contact the Clinical Chemistry Laboratory if there are any questions. Chloride 101 98 - 107 mmol/L [facility] CO2 22 22 - 31 mmol/L [facility] Anion Gap 14 5 - 15 mmol/L [facility] Calcium 9.0 8.5 - 10.5 mg/dL [facility] Estimated GFR 82 >=60 mL/min/1. 73 m?? [facility] Comment: This patient's estimated GFR [...] Hancock MD CHEMISTRY ORDERABLES Performing Organization Address [facility]/ZIP Co de Phone Number [facility] [place] [address] * Magnesium (03/19/2024 11:01 PM EDT) Magnesium 0.96 0.69 - 1.07 mmol/L [facility] Blood Venous Draw / Unknown 03/19/2024 11:01 PM EDT 03/19/2024 11:06 PM EDT Narrative Resulting Agency Comment Spec In Lab Horace Hancock MD CHEMISTRY ORDERABLES Performing Organization Address [facility]/ZIP Co de Phone Number [facility] [place] [address] * (ABNORMAL) Troponin (03/19/2024 11:01 PM EDT) Troponin-T HS 2,406(H) <=14 ng/L [facility] Comment: This patient's troponin T [...] troponin value can be found in the [facility] Laboratory Test Catalog Troponin - [facility] Laboratory Test Catalog Reference: Fourth [place] Definition of Myocardial Infarction. Journal of the [place] [employer] 2018;72:9470-7707 Blood 03/19/2024 11:0 1 PM EDT 03/19/2024 11:05 PM EDT Narrative Resulting Agency Comment Spec In Lab Franky Mead MD CHEMISTRY ORDERABLE S [facility] [place] [address] * (ABNORMAL) Troponin (03/19/2024 8:40 PM EDT) Troponin-T HS 2,586(H) <=14 ng/L [facility] Comment: This patient's troponin T [...] troponin value can be found in the [facility] Laboratory Test Catalog Troponin - [facility] Laboratory Test Catalog Reference: Fourth [place] Definition of Myocardial Infarction. Journal of the [place] [employer] 2018;72:9091-1975 Blood 03/19/2024 8:40 PM EDT 03/19/2024 8:45 PM EDT Narrative Resulting Agency Comment Spec In Lab Ganesh Nguyen MD CHEMISTRY ORDERAB LES [facility] [place] [address] * EKG 12 Lead (03/19/2024 8:32 PM EDT) Ventricular rate 70 BPM MUSE SYSTEM Atrial Rate 70 BPM MUSE SYSTEM P-R Interval 158 ms MUSE SYSTEM QRS Duration 78 ms MUSE SYSTEM Q-T Interval 470 ms MUSE SYSTEM QTC Calculated (Bezet) 507 ms MUSE SYSTEM Calculated P [place] 62 degrees MUSE SYSTEM Calculated R [place] 42 degrees MUSE SYSTEM Calculated T [place] -158 degrees MUSE SYSTEM INTERPRETATION Normal sinus rhythm Poor R wave progression T wave abnormality, consider lateral ischemia Prolonged QT Abnormal ECG When compared with ECG of 19-MAR-2024 17:27, No significant change was found Confirmed by MD Hebert, Destin ([id number]) on 03/23/2024 8:10:58 AM MUSE SYSTEM 03/19/2024 8:32 PM EDT 03/23/2024 8:10 AM EDT Franky Mead MD ECG ORDERABLES MUSE SYSTEM * EKG 12 Lead (03/19/2024 5:27 PM EDT) Ventricular rate 70 BPM MUSE SYSTEM Atrial Rate 70 BPM MUSE SYSTEM P-R Interval 154 ms MUSE SYSTEM QRS Duration 80 ms MUSE SYSTEM Q-T Interval 460 ms MUSE SYSTEM QTC Calculated (Bezet) 496 ms MUSE SYSTEM Calculated P [place] 80 degrees MUSE SYSTEM Calculated R [place] 87 degrees MUSE SYSTEM Calculated T [place] -96 degrees MUSE SYSTEM INTERPRETATION Normal sinus rhythm T wave abnormality, consider lateral ischemia Prolonged QT Abnormal ECG When compared with ECG of 19-MAR-2024 02:23, Non-specific change in ST segment in Anterior leads T wave inversion more evident in Inferior leads T wave inversion now evident in Anterolateral leads Confirmed by MD Hebert, Destin ([id number]) on 03/23/2024 8:10:45 AM MUSE SYSTEM 03/19/2024 5:27 PM EDT 03/23/2024 8:10 AM EDT Unknown ECG ORDERABLES MUSE SYSTEM * (ABNORMAL) Troponin (03/19/2024 2:45 PM EDT) Pathologist [facility] Troponin-T HS 3,792(H) <=14 ng/L [facility] Comment: This patient's troponin T [...] troponin value can be found in the [facility] Laboratory Test Catalog Troponin - [facility] Laboratory Test Catalog Reference: Fourth [place] Definition of Myocardial Infarction. Journal of the [place] [employer] 2018;72:3896-4440 Blood 03/19/2024 2:45 PM EDT 03/19/2024 2:54 PM EDT Narrative Resulting Agency Comment Spec In Lab Horace Hancock MD CHEMISTRY ORDERABLES [facility] [place] [address] * ECHO COMPLETE W CONTRAST (03/19/2024 10:53 AM EDT) Anatomical Region Laterality Modality Cardiac Other 03/19/2024 9:03 AM EDT Narrative 03/19/2024 12:12 PM [place]T [address] [place] [address] ? Echocardiogram Report Name: ISA RO ?Study Date: 03/19/2024 09:03 AMBP: 129/68 mmHg ? Patient Location: 4A : 1965 ? Height: 158 cm ? Account: [id number] Age: 59 yrs ? Weight: 57 kg Gender: Female ?BSA: 1.6 m2 Ordering Physician: GANESH NGUYEN Referring Physician: GANESH NGUYEN Performed By: PEREZ Carlos Reason For Study: STEMI involving LAD Exam Location: [facility]. Interpretation Summary Normal left ventricle size with mildly reduced LV function. LV ejection fraction 49%. LAD territory wall motion abnormality, predominantly involving the LV apex. No LV thrombus visualized with echo contrast. Normal right ventricle. No significant valvular abnormalities. Compared with prior echo dated 08/28/23, LV function has now decreased and new wall motion abnormalities. Procedure Complete-[id number]. Image enhancement Definity was used for left [...] Note Destin Ambrosio MD - 03/19/2024 [address] [place] [address] Echocardiogram Report Name: ISA OR Study Date: 409:03 AMBP: 129/68 mmHg Patient Location: : 1965 Height: 158 cm Account: [id number] Age: 59 yrs Weight: 57 kg Gender: Female BSA: 1.6 m2 Ordering Physician: GANESH NGUYEN Referring Physician: GANESH NGUYEN Performed By: PEREZ Carlos Reason For Study: STEMI involving LAD Exam Location: [facility]. Interpretation Summary Normal left ventricle size with mildly reduced LV function. LV ejectionfraction 49%. LAD territory wall motion abnormality, predominantly involving the LVapex. No LV thrombus visualized with echo contrast. Normal right ventricle. No significant valvular abnormalities. Compared with prior echo dated 08/28/23, LV function has now decreased andnew wall motion abnormalities. Procedure Complete-[id number]. Image enhancement Definity was used for left [...] View (03/19/2024 8:37 AM EDT) WORKSTATION ID [id number] RAD Anatomical Region Laterality Modality Chest N/A [...] who have questions please contact the health hearing care practitioner that requested your imaging first. ? Narrative 03/19/2024 10:09 AM EDT EXAMINATION: XR [...] patients who have questions please contactthe health hearing care practitioner that requested your imaging first. Delores Jett MD IMG DX ORDERABLES * Hemoglobin A1c (03/19/2024 5:25 AM EDT) Hemoglobin A1C 5.6 4.3 - 5.6 % [facility] Comment: Reference Range: 4.3 - [...] Mellitus, Diabetes Care 2013; 36: Suppl. 1, X68-66 Est Avg Gluc 114 mg/dL [facility] Blood Venous Draw / Unknown 03/19/2024 5:25 AM EDT 03/19/2024 3:52 PM EDT Narrative Resulting Agency Comment Spec In Lab Horace Hancock MD CHEMISTRY ORDERABLES [facility] [place] [address] * (ABNORMAL) Differential, Automated (03/19/2024 5:25 AM EDT) Neutrophils % 90.0 % [facility] Neutr Abs (ANC) 16.73(H) 1.70 - 6.10 x10(3)/[facility] LABORATORY Lymphocytes % 5.2 % [facility] Lymphocytes Abs 1.0 0.9 - 3.2 x10(3)/[facility] LABORATORY Monocytes % 4.2 % [facility] Monocyte Abs 0.8 0.3 - 0.9 x10(3)/[facility] LABORATORY Eosinophils % 0.0 % [facility] Eosinophils Abs 0.0 0.0 - 0.4 x10(3)/[facility] LABORATORY Basophils % 0.2 % [facility] Basophils Abs 0.0 0.0 - 0.1 x10(3)/[facility] LABORATORY Immature Gran % 0.40 % [facility] Comment: Immature granulocytes(IG's)percentage and absolute count will include metamyelocytes, myelocytes, and promyelocytes. Blood smears from CBCs yielding IG's will be scanned manually for concordance. If this scan disagrees with the automated IG or if promyelocytes are noted, a manual differential will be performed. Lesia Gran Abs 0.08(H) 0.00 - 0.04 x10(3)/mc L [facility] Blood 03/19/2024 5:25 AM EDT 03/19/2024 5:34 AM EDT Narrative Resulting Agency Comment Spec In Lab Ganesh Nguyen MD HEMATOLOGY ORDERA BLES Performing Organization Address City/[facility]/ZIP Co de Phone Number [facility] [place] [address] * (ABNORMAL) Hemogram (03/19/2024 5:25 AM EDT) WBC 18.6(H) 4.0 - 9.5 x10(3)/[facility] LABORATORY RBC 4.92 4.00 - 5.21 x10(6)/[facility] LABORATORY Hemoglobin 13.7 11.7 - 15.5 g/dL [facility] Hematocrit 40.6 35.7 - 45.8 % [facility] MCV 82.5(L) 82.6 - 94.4 [facility] LABORATORY MCH 27.8 27.1 - 32.0 pg [facility] MCHC 33.7 31.7 - 35.0 g/dL [facility] Platelets 285 145 - 357 x10(3)/[facility] LABORATORY RDWSD 41.1 37.0 - 46.0 [facility]ORATORY RDWCV 13.6 11.5 - 14.1 % [facility] MPV 9.5 7.6 - 12.9 [facility] LABORATORY nRBC % Auto 0.0 % [facility] nRBC Abs Auto 0.000 0.000 - 0.000 x10(3)/[facility] LABORATORY Blood 03/19/2024 5:25 AM EDT 03/19/2024 5:34 AM EDT Narrative Resulting Agency Comment Spec In Lab Ganesh Nguyen MD HEMATOLOGY ORDERA BLES [facility] [place] [address] * Lipid Panel (Reflex Direct LDL) (03/19/2024 5:25 AM EDT) Chol, Total 324 mg/dL [facility] Comment: Desirable: ? <200 mg/dL Borderline High: 200-239 mg/dL Higher: ?>pq=586 mg/dL Triglycerides 200 mg/dL [facility] Comment: Normal: ?<150 mg/dL Borderline High: 150-199 mg/dL High: ?200-499 mg/dL Very High: ? >vz=459 mg/dL HDL 68 mg/dL [facility] Comment: Females: High Risk: <50 mg/dL Males: High Risk: <40 mg/dL LDL Cholesterol 216 mg/dL [facility] Comment: Desirable: ? <100 mg/dL Above Desirable: 100-129 mg/dL Borderline High: 130-159 mg/dL High: ?160-189 mg/dL Very High: ? >rc=788 mg/dL Lipid Interpretation See Note [facility] Comment: It is important to [...] ACC/AHA Guidelines (most recently Jw et al. [facility] 06/17/22): For individuals with atherosclerotic cardiovascular disease (ASCVD)or LDL >xm=045 mg/dL, use a high-intensity statin (40-80 mg [...] Lab Ganesh Nguyen MD CHEMISTRY ORDERAB LES [facility] [place] [address] * (ABNORMAL) Troponin (03/19/2024 5:25 AM EDT) Troponin-T HS 1,276(H) <=14 ng/L [facility] Comment: This patient's troponin T [...] troponin value can be found in the [facility] Laboratory Test Catalog Troponin - [facility] Laboratory Test Catalog Reference: Fourth [place] Definition of Myocardial Infarction. Journal of the [place] [employer] 2018;72:7547-7413 Blood 03/19/2024 5:25 AM EDT 03/19/2024 5:34 AM EDT Narrative Resulting Agency Comment Spec In Lab Ganesh Nguyen MD CHEMISTRY ORDERAB LES Performing Organization Address [facility] Co de Phone Number [facility] [place] [address] * APTT (03/19/2024 5:25 AM EDT) PTT 29 25 - 37 sec [facility] Comment: The PTT is NOT appropriate for heparin monitoring. Use the Anti-Xa level for heparin monitoring (HEP UFH) or LMWH monitoring (HEP LMW). A PTT less than 37 seconds generally indicates adequate hemostasis. Blood 03/19/2024 5:25 AM EDT 03/19/2024 5:34 AM EDT Narrative Resulting Agency Comment Spec In Lab Ganesh Nguyen MD HEMATOLOGY ORDERA BLES Performing Organization Address [facility] Co de Phone Number [facility] [place] [address] * Prothrombin Time (03/19/2024 5:25 AM EDT) PT 10.9 9.4 - 12.5 sec [facility] INR 1.0 [facility] Comment: An INR <2.0 [...] Lab Ganesh Nguyen MD HEMATOLOGY ORDERA BLES [facility] [place] [address] * (ABNORMAL) Comprehensive metabolic panel (non-fasting) (03/19/2024 5:25 AM EDT) Glucose Lvl 181 65 - 199 mg/dL [facility] Comment:Diabetes: >=200 mg/d L plus symptoms BUN 14 8 - 18 mg/dL [facility] Creatinine 0.91 0.70 - 1.20 mg/dL [facility] Sodium 137 135 - 145 mmol/L [facility] Potassium 4.2 3.5 - 5.0 mmol/L [facility] Comment: Please note: ??Patients with WBC >100,000 may have falsely elevated Potassium levels. ??For accurate Potassium quantification in these patients send serum separator tube (gold top) for subsequent determinations. ??Contact the Clinical Chemistry Laboratory if there are any questions. Chloride 100 98 - 107 mmol/L [facility] CO2 22 22 - 31 mmol/L [facility] Anion Gap 15 5 - 15 mmol/L [facility] Calcium 8.7 8.5 - 10.5 mg/dL [facility] Total Protein 7.2 6.1 - 8.0 g/dL [facility] Albumin 4.5 3.2 - 5.2 g/dL [facility] AST 95(H) 0 - 30 unit/L [facility] Comment:result rechecked-bz ALT 31(H) 0 - 30 unit/L [facility] Alk Phos 70 35 - 105 unit/L [facility] Total Bilirubin 0.5 0.2 - 1.3 mg/dL [facility] Estimated GFR 72 >=60 mL/min/1. 73 m?? [facility] Comment: This patient's estimated GFR [...] Lab Ganesh Nguyen MD CHEMISTRY ORDERAB LES [facility] [place] [address] * EKG 12 Lead (03/19/2024 2:23 AM EDT) Ventricular rate 67 BPM MUSE SYSTEM Atrial Rate 67 BPM MUSE SYSTEM P-R Interval 152 ms MUSE SYSTEM QRS Duration 78 ms MUSE SYSTEM Q-T Interval 500 ms MUSE SYSTEM QTC Calculated (Bezet) 528 ms MUSE SYSTEM Calculated P [place] 54 degrees MUSE SYSTEM Calculated R [place] 56 degrees MUSE SYSTEM Calculated T [place] 31 degrees MUSE SYSTEM INTERPRETATION Normal sinus rhythm Prolonged QT Abnormal ECG No previous ECGs available Confirmed by MD Ambrosio David ([id number]) on 03/23/2024 8:10:32 AM MUSE SYSTEM 03/19/2024 2:23 AM EDT 03/23/2024 8:10 AM EDT Ganesh Nguyen MD ECG ORDERABLES MUSE SYSTEM * (ABNORMAL) Differential, Automated (03/19/2024 2:20 AM EDT) Neutrophils % 89.8 % [facility] Neutr Abs (ANC) 15.44(H) 1.70 - 6.10 x10(3)/[facility] LABORATORY Lymphocytes % 6.4 % [facility] Lymphocytes Abs 1.1 0.9 - 3.2 x10(3)/[facility] LABORATORY Monocytes % 2.9 % [facility] Monocyte Abs 0.5 0.3 - 0.9 x10(3)/[facility] LABORATORY Eosinophils % 0.1 % [facility] Eosinophils Abs 0.0 0.0 - 0.4 x10(3)/[facility] LABORATORY Basophils % 0.3 % [facility] Basophils Abs 0.0 0.0 - 0.1 x10(3)/[facility] LABORATORY Immature Gran % 0.50 % [facility] Comment: Immature granulocytes(IG's)percentage and absolute count will include metamyelocytes, myelocytes, and promyelocytes. Blood smears from CBCs yielding IG's will be scanned manually for concordance. If this scan disagrees with the automated IG or if promyelocytes are noted, a manual differential will be performed. Lesia Gran Abs 0.08(H) 0.00 - 0.04 x10(3)/[facility] LABORATORY Blood 03/19/2024 2:20 AM EDT 03/19/2024 2:59 AM EDT Narrative Resulting Agency Comment Spec In Lab Ganesh Nguyen MD HEMATOLOGY ORDERA BLES [facility] [place] [address] * (ABNORMAL) Hemogram (03/19/2024 2:20 AM EDT) WBC 17.2(H) 4.0 - 9.5 x10(3)/[facility] LABORATORY RBC 4.70 4.00 - 5.21 x10(6)/[facility] LABORATORY Hemoglobin 13.3 11.7 - 15.5 g/dL [facility] Hematocrit 38.7 35.7 - 45.8 % [facility] MCV 82.3(L) 82.6 - 94.4 fL [facility] MCH 28.3 27.1 - 32.0 pg [facility] MCHC 34.4 31.7 - 35.0 g/dL [facility] Platelets 281 145 - 357 x10(3)/[facility] LABORATORY RDWSD 41.0 37.0 - 46.0 [facility] LABORATORY RDWCV 13.7 11.5 - 14.1 % [facility] MPV 9.7 7.6 - 12.9 [facility] LABORATORY nRBC % Auto 0.0 % [facility] nRBC Abs Auto 0.000 0.000 - 0.000 x10(3)/[facility] LABORATORY Blood 03/19/2024 2:20 AM EDT 03/19/2024 2:59 AM EDT Narrative Resulting Agency Comment Spec In Lab Ganesh Nguyen MD HEMATOLOGY ORDERA BLES [facility] [place] [address] * (ABNORMAL) Troponin (03/19/2024 2:20 AM EDT) Pathologist [facility] Troponin-T HS 960(H) <=14 ng/L [facility] Comment: This [...] troponin value can be found in the [facility] Laboratory Test Catalog Troponin - [facility] Laboratory Test Catalog Reference: Fourth [place] Definition of Myocardial Infarction. Journal of the [place] [employer] 2018;72:1528-8632 Blood 03/19/2024 2:20 AM EDT 03/19/2024 2:59 AM EDT Narrative Resulting Agency Comment Spec In Lab Ganesh Nguyen MD CHEMISTRY ORDERAB LES Performing Organization Address [facility] [facility] Co de Phone Number [facility] [place] [phone] * (ABNORMAL) APTT (03/19/2024 2:20 AM EDT) PTT 123(Criti lewis) 25 - 37 sec [facility] Comment: Critical Result called by ?? MADDY CRITICAL Results read back by: ? chang phillips at 2024-03-19 03:42:13 The PTT is NOT appropriate for heparin monitoring. Use the Anti-Xa level for heparin monitoring (HEP UFH) or LMWH monitoring (HEP LMW). A PTT less than 37 seconds generally indicates adequate hemostasis. Blood 03/19/2024 2:20 AM EDT 03/19/2024 2:59 AM EDT Narrative Resulting Agency Comment Spec In Lab Ganesh Nguyen MD HEMATOLOGY ORDERA BLES Performing Organization Address [facility] Co de Phone Number [facility] [place] [address] * Prothrombin Time (03/19/2024 2:20 AM EDT) PT 11.7 9.4 - 12.5 sec [facility] INR 1.0 [facility] Comment: An INR <2.0 [...] MD HEMATOLOGY ORDERA BLES Performing Organization Address [facility] de Phone Number [facility] [place] [address] * (ABNORMAL) Hepatic Function Panel (03/19/2024 2:20 AM EDT) Total Protein 6.7 6.1 - 8.0 g/dL [facility] Albumin 4.3 3.2 - 5.2 g/dL [facility] AST 49(H) 0 - 30 unit/L [facility] ALT 26 0 - 30 unit/L [facility] Alk Phos 67 35 - 105 unit/L [facility] Total Bilirubin 0.4 0.2 - 1.3 mg/dL [facility] Bili, Direct 0.1 0.0 - 0.3 mg/dL [facility] Blood 03/19/2024 2:20 AM EDT 03/19/2024 2:59 AM EDT Narrative Resulting Agency Comment Spec In Lab Ganesh Nguyen MD CHEMISTRY ORDERAB LES [facility] [place] [address] * (ABNORMAL) pro-Brain Natriuretic Peptide (03/19/2024 2:20 AM EDT) ProBNP 529(H) <=124 pg/mL [facility] Blood 03/19/2024 2:20 AM EDT 03/19/2024 2:59 AM EDT Narrative Resulting Agency Comment Spec In Lab Ganesh Nguyen MD CHEMISTRY ORDERAB LES Performing Organization Address [facility] Co de Phone Number [facility] [place] [address] * Phosphorus (03/19/2024 2:20 AM EDT) Phosphorus 3.8 2.5 - 4.5 mg/dL [facility] Blood 03/19/2024 2:20 AM EDT 03/19/2024 2:59 AM EDT Narrative Resulting Agency Comment Spec In Lab Ganesh Nguyen MD CHEMISTRY ORDERAB LES Performing Organization Address [facility] Co de Phone Number [facility] [place] [address] * Magnesium (03/19/2024 2:20 AM EDT) Magnesium 0.71 0.69 - 1.07 mmol/L [facility] Blood 03/19/2024 2:20 AM EDT 03/19/2024 2:59 AM EDT Narrative Resulting Agency Comment Spec In Lab Ganesh Nguyen MD CHEMISTRY ORDERAB LES Performing Organization Address [facility] Co de Phone Number [facility] [place] [address] * (ABNORMAL) Basic Metabolic Panel (non-fasting) (03/19/2024 2:20 AM EDT) Glucose Lvl 160 65 - 199 mg/dL [facility] Comment:Diabetes: >=200 mg/d L plus symptoms BUN 14 8 - 18 mg/dL [facility] Creatinine 0.88 0.70 - 1.20 mg/dL [facility] Sodium 137 135 - 145 mmol/L [facility] Potassium 3.9 3.5 - 5.0 mmol/L [facility] Comment: Please note: ??Patients with WBC >100,000 may have falsely elevated Potassium levels. ??For accurate Potassium quantification in these patients send serum separator tube (gold top) for subsequent determinations. ??Contact the Clinical Chemistry Laboratory if there are any questions. Chloride 100 98 - 107 mmol/L [facility] CO2 20(L) 22 - 31 mmol/L [facility] Anion Gap 17(H) 5 - 15 mmol/L [facility] Calcium 8.2(L) 8.5 - 10.5 mg/dL [facility] Estimated GFR 75 >=60 mL/min/1. 73 m?? [facility] Comment: This patient's estimated GFR [...] Lab Ganesh Nguyen MD CHEMISTRY ORDERAB LES [facility] [place] [address] * (ABNORMAL) Point of Care Blood Gas Historical (03/19/2024 1:41 AM EDT) POC pH 7.28(Criti lewis) 7.35 - 7.45 [facility] PCO2 40 35 - 45 mmHg [facility] PO2 84(L) 85 - 104 mmHg [facility] P[facility] Base Excess -8.0(L) -3.0 - 3.0 mmol/L [facility] HCO3 18.6(L) 20.0 - 26.0 mmol/L [facility] TCO2 20(L) 22 - 31 mmol/L [facility] Sodium 134(L) 135 - 145 mmol/L [facility] Potassium 3.4(L) 3.5 - 5.0 mmol/L [facility] Ionized Ca 1.09(L) 1.15 - 1.33 mmol/L [facility] Hematocrit 38.0 34.0 - 45.0 % [facility] Calc Hgb 12.9 11.2 - 15.7 g/dL [facility] Blood 03/19/2024 1:41 AM EDT 03/19/2024 1:41 AM EDT Kathryn Walker MD CHEMISTRY ORDERABL ES Performing Organization Address City/State/[facility] Co de Phone Number [facility] [place] [address] * CARDIAC CATHETERIZATION (03/19/2024 1:36 AM EDT) Anatomical Region Laterality Modality Other Narrative 03/19/2024 7:19 AM EDT ?[facility] ? Cardiac Catheterization/Intervention Report ? Patient Name: Warnaar, Isa A. ? Procedure Date: 03/19/2024 ? A #: [id number] ? Primary Physician: Kirill, Ramo S ? Case #: [id number] ? File Name: [id number] ? Catheterization Order Number: [id number] ? [facility] ? Final Report [place], [place] ? Patient Name: ? Isa A. Warnaar ? ID#: ?[id number] ? : ?1965 ? Procedure Date: ? March 19, 2024 ? Case #: ? [id number] ? Room: ? 6 ? Case Physician: [...] was ?designated as ASA Class IV. The [facility] clinical frailty scale is 3: ?Managing Well. [...] procedure was Emergent. The indication for ?the dairy and food laboratory assistant visit is ACS less than or equal [...] ?3.5 guiding catheter and a 3.5 Fr [place] 20 Mhz using auto 1 ?mm/sec pullback. [...] ? A premounted 3.00 x 08 mm Dacoma Linwood (JAHAIRA) was deployed ? with a maximum inflation pressure of 12 atmospheres. ? Another stent insertion was accomplished through a 6 Fr. EBU ? 3.5 guide. ??A premounted 2.00 x 08 mm Alberto Linwood (JAHAIRA) was ? deployed. ? The final [...] dose administered prior to arrival in the [facility]. ?Recommended anti-platelet/anti-thrombotic regimen: ?Start aspirin 81 mg daily now and continue for indefinitely. ?Start clopidogrel 75 mg daily now and continue for 12 months then stop. ?These recommendations are made at the time of the intervention. Patient ?and provider preferences or a changing clinical situation may require ?modification of this regimen. Consult [facility] Interventional Cardiology for ?questions. ?The 1 year [...] against any medical treatment. Consult ?http://tools.acc.org/DAPTriskapp/#!/content/calculator/ or [facility] ?Interventional Cardiology for questions ? Conclusions: ?* [...] was present for the entire procedure. ?Dr. Raom Roy M.D. was present during the moderate [...] Note Ramo Roy MD - 03/21/2024 [facility] Cardiac Catheterization/Intervention Report Patient Name: Isa Ro Procedure Date: 03/19/2024 A #: [id number] Primary Physician: Ramo Roy Case #: [id number] File Name: [id number] Catheterization Order Number: [id number] [facility] FinalReport [place], [place] Patient Name: Isa Ro ID#:[id number] :1965 Procedure Date: March 19, 2024 Case [...] patientwas designated as ASA Class IV. The [facility] clinical frailty scale is 3: Managing Well. Diagnostic Tests: Prior Coronary Angiography: Prior coronary angiography was performed on 12/15/2014. Electrocardiography: EKG was assessed by ECG. EKG was Abnormal. EKG showed STDeviation >= 0.5 mm and other abnormality. Medications Prior to Procedure: Aspirin. Indications for Diagnostic Cath: The priority of the diagnostic procedure was Emergent. Theindication for the dairy and food laboratory assistant visit is ACS less than or equal [...] 3.5 guiding catheter and a 3.5 Fr [place] 20 Mhz usingauto 1 mm/sec pullback. Imaging [...] The priority for the procedure was Emergent.[facility] for the procedure was STEMI-Immediate [...] The lesion was predilated with a 2.50mm ENCMODR20 MM balloon with a maximum inflation pressure of 14atmospheres. A premounted 3.00 x 08 mm Dacoma Linwood (JAHAIRA) wasdeployed with a maximum inflation pressure of 12 atmospheres. Another stent insertion was accomplished through a 6 Fr.EBU 3.5 guide. A premounted 2.00 x 08 mm Alberto Linwood (JAHAIRA)was deployed. The final outcome was defined [...] dose administered prior to arrival in the dairy and food laboratory assistant. Recommended anti-platelet/anti-thrombotic regimen: Start aspirin 81 mg daily now and continue for indefinitely. Start clopidogrel 75 mg daily now and continue for 12 months thenstop. These recommendations are made at the time of the intervention.Patient and provider preferences or a changing clinical situation mayrequire modification of this regimen. Consult [facility] Interventional Cardiologyfor questions. The 1 year bleeding [...] or against any medical treatment.Consult http://tools.acc.org/DAPTriskapp/#!/content/calculator/ or [facility] Interventional Cardiology for questions Conclusions: * One [...] POC pH 7.20(Criti lewis) 7.35 - 7.45 [facility] POC PCO2 38 35 - 45 mmHg [facility] POC PO2 74(L) 85 - 104 mmHg [facility] POC Base Excess -14.0(L) -3.0 - 3.0 mmol/L [facility] POC HCO3 14.5(L) 20.0 - 26.0 mmol/L [facility] POC TCO2 16(L) 22 - 31 mmol/L [facility] POC Sodium 116(Critic al) 135 - 145 mmol/L [facility] POC Potassium 3.1(L) 3.5 - 5.0 mmol/L [facility] POC Ionized Ca 1.04(L) 1.15 - 1.33 mmol/L [facility] POC Hematocrit 39.0 34.0 - 45.0 % [facility] POC Calc Hgb 13.3 11.2 - 15.7 g/dL [facility] Blood 03/19/2024 1:26 AM EDT 03/19/2024 1:26 AM EDT Kathryn Walker MD CHEMISTRY ORDERABL ES Performing Organization Address City/State/[facility] Co de Phone Number [facility] [place] [address] documented in this encounter Visit Diagnoses Not on filedocumented in this encounter Admitting Diagnoses Diagnosis Acute [...] 1137, Until Thu03/22/24 at 1411, Heartburn, Routine aspirin chewable tablet 81 mg 81 mg, Oral, DAILY, First dose on Thu03/19/24 at 0900, Until Discontinued, Routine Given 03/22/2024 8:57 AM EDT 81 mg Given 03/21/2024 8:36 AM EDT 81 mg Given 03/20/2024 8:01 AM EDT 81 mg atorvastatin (Lipitor) tablet 80 mg 80 mg, Oral, DAILY, First dose (after last modification) on Thu03/19/24 at 0615, Until Discontinued, Routine Given 03/22/2024 [...] Given 03/21/2024 8:33 AM EDT 20 mg fentaNYL (pf) (50 mcg/mL) multi-dose injection PRN, Starting on Thu03/19/24 at 0055, Until Thu03/19/24 at 1543, Intra-Operative (Intra-Procedure), Routine Given 03/19/2024 1:33 AM EDT 25 mcg Given 03/19/2024 1:07 AM EDT 25 mcg Given 03/19/2024 12:55 AM EDT 25 mcg furosemide (Lasix) (10 mg/mL) injection PRN, Starting on 03/19/24 at 0102, Until 03/20/24 at 2002, Intra-Operative (Intra-Procedure), Routine Given 03/19/2024 1:02 AM EDT 40 mg heparin (porcine) (1,000 units/mL) injection PRN, Starting on 03/19/24 at 0055, Until 03/19/24 at 1316, Intra-Operative (Intra-Procedure), Routine Given 03/19/2024 12:55 AM EDT 4,000 Units heparin (porcine) (5,000 units/1 mL) subcutaneous injection 5,000 Units 5,000 Units, Subcutaneous, EVERY 8 HOURS SCHEDULED, First dose on 03/19/24 at 0600, Until Discontinued, Routine Given 03/22/2024 5:11 AM EDT 5,000 Units Given 03/21/2024 9:00 PM EDT 5,000 Units Given 03/21/2024 1:20 PM EDT 5,000 Units iohexoL (Omnipaque) (350 mg/mL) solution PRN, Starting on 03/19/24 at 0135, Until 03/19/24 at 1316, Intra-Operative (Intra-Procedure), Routine Given 03/19/2024 1:35 AM EDT 181 mLs magnesium sulfate 2 g in sterile water [...] PRN, Starting on 03/19/24 at 0709, Until Tu03/22/24 at 1411, Administer over 120 Minutes, Hypomagnesemia, Administer two 2 g IV bag, each over 120 minutes for serum magnesium of 0.5 - 0.64 mMol/L. midazolam (pf) (Versed) (1 mg/mL) multi-dose injection PRN, Starting on 03/19/24 at 0055, Until 03/19/24 at 1543, Intra-Operative (Intra-Procedure), Routine Given 03/19/2024 1:07 AM EDT 0.5 mg Given 03/19/2024 12:55 AM EDT 0.5 mg nitroGLYcerin (200 mcg/mL) in dextrose 5% 250 [...] Given 03/19/2024 8:24 PM EDT 0.4 mg nitroGLYcerin 100 mcg/mL intracoronary dilution PRN, Starting on 03/19/24 at 0058, Until 03/19/24 at 1543, Intra-Operative (Intra-Procedure), Routine Given 03/19/2024 12:58 AM EDT 150 mcg potassium chloride ER (Klor-Con M) crystal tablet [...] Intravenous, 2 TIMES DAILY, First dose on Thu03/19/24 at 0900, Until Discontinued, Routine Given 03/22/2024 8:58 AM EDT 5 mLs Given 03/21/2024 9:00 PM EDT 5 mLs Given 03/21/2024 8:40 AM EDT 5 mLs ubiquinone (Coenzyme Q10) (Ubiquinone) capsule 50 mg 50 mg, Oral, DAILY, First dose on Thu03/19/24 at 1715, Until Discontinued, Routine Given 03/22/2024 8:58 AM EDT 50 mg Given 03/21/2024 8:36 AM EDT 50 mg Given 03/20/2024 8:01 AM EDT 50 mg verapamiL (Isoptin) (2.5 mg/mL) injection PRN, Starting on Thu03/19/24 at 0058, Until Thu03/19/24 at 1543, Administer over 2 Minutes, Intra-Operative (Intra-Procedure) Given 03/19/2024 12:58 AM E DT 2.5 mg documented in this encounter Active and [...] 0857 (Given - Provider: Lubna Cruz RN) atorvastatin (Lipitor) tablet 80 mg 80 mg, Oral, DAILY, First dose (after last modification) on 03/19/24 at 0615, Until Discontinued, Routine 0800 (Given - Provider: Loreta Lopez RN) 0833 (Given - Provider: Izaiah Jimenez RN) 0857 (Given - Provider: Lubna Cruz, TOSHA) carvediloL (Coreg) tablet 3.125 mg 3.125 mg, Oral, 2 TIMES DAILY WITH MEALS, First dose on 03/19/24 at 1700, Until Discontinued, Routine 0752 (Given - Provider: Loreta Lopez RN)1759 (Given - Provider: Loreta Lopez RN) 0834 (Given - Provider: Izaiah Jimenez RN)1640 (Given - Provider: Izaiah Jimenez RN) 0857 (Given - Provider: uLbna Cruz, TOSHA) clopidogreL (Plavix) tablet 75 mg 75 mg, Oral, DAILY, First dose on Thu03/19/24 at 0900, Until Discontinued, Routine 0801 (Given - Provider: Loreta Lopez RN) 0836 (Given - Provider: Izaiah Jimenez RN) 0857 (Given - Provider: Lubna Cruz RN) famotidine (Pepcid) tablet 20 mg (CANCELED) 20 mg, Oral, 2 TIMES DAILY, First dose on 03/19/24 at 0900, Until Discontinued, Routine 0801 (Given - Provider: Loreta Lopez RN) famotidine (Pepcid) tablet 20 mg 20 mg, Oral, 2 TIMES DAILY, First dose (after last modification) on Mon 8/24 at 0900, Until Discontinued, Routine 0833 (Given - Provider: Izaiah Jimenez, TOSHA)205 (Given - Provider: Javon Sykes RN) 0857 (Given - Provider: Lubna Cruz, TOSHA) heparin (porcine) (5,000 units/1 mL) subcutaneous injection 5,000 Units 5,000 Units, Subcutaneous, EVERY 8 HOURS SCHEDULED, First dose on 03/19/24 at 0600, Until Discontinued, Routine 0546 (Given - Provider: Javon Sykes RN)1400 (Not Given - Provider: Loreta Lopez RN - Reason: See comment - Comment: pt ambulating in halls multiple times today)211 (Given - Provider: Javon Sykes RN) 0531 [...] Sykes RN) 0840 (Given - Provider: Izaiah Jimenez, TOSHA)2100 (Given - Provider: Javon Sykes RN) 0858 (Given - Provider: Lubna Cruz, TOSHA) ubiquinone (Coenzyme Q10) (Ubiquinone) capsule 50 mg 50 mg, Oral, DAILY, First dose on 03/19/24 at 1715, Until Discontinued, Routine 0801 (Given - Provider: Loreta Lopez RN) 0836 (Given - Provider: Izaiah Jimenez, TOSHA) 0858 (Given - Provider: Lubna Cruz, TOSHA) PRN Medication Order 03/20/2024 03/21/2024 03/22/2024 acetaminophen (Tylenol) tablet 650 mg 650 mg, Oral, EVERY 6 HOURS PRN, Starting on Thu03/19/24 at 0606, Until Thu03/22/24 at 1411, Pain, Maximum dose of acetaminophen is 4,000 mg from all sources in 24 hours. When ordered for pain, acetaminophen should be given even when other ordered pain medications are indicated., Routine 0744 (Given - Provider: Loreta Lopez RN - Comment: headache)153 (Given - Provider: Loreta Lopez RN - [...] 03/19/24 at 0709, Until 03/22/24 at 1411, hypokalemia, Administer for serum potassium [...] PRN, Starting on 03/19/24 at 0709, Until Tu03/22/24 at 1411, hypokalemia, Administer for serum potassium [...] PRN, Starting on 03/19/24 at 0210, Until Tu03/22/24 at 1411, flush, Flush pertains to all [...] PRN, Starting on 03/19/24 at 0709, Until Tu03/22/24 at 1411, Administer over 120 Minutes, Hypomagnesemia, Administer two 2 g IV bag, each over 120 minutes for serum magnesium of 0.5 - 0.64 mMol/L. Group 2: potassium chloride ER (Klor-Con M) crystal tablet 40 mEqJump to med 40 mEq, Oral, EVERY 4 HOURS PRN, Starting on 03/19/24 at 0709, Until 03/22/24 at 1411, hypokalemia, Administer for serum potassium [...] PRN, Starting on 03/19/24 at 0709, Until Tu03/22/24 at 1411, hypokalemia, Administer for serum potassium (mMol/L) of 3.9 - 4 potassium chloride ER particle/crystal tablets (Klor-Con M) may be broken in half and each half swallowed separately. Tablets can be dissolved in ~4 ounces of water; allow ~2 minutes to dissolve, stir well and drink immediately. Do not crush, chew, or suck on tablet., Routine documented in this encounter Care Teams Head Irrigator Relationship Specialty Start Date End Date None None PCP - General 03/19/24 documented as of this encounter
--- OUTSIDE RECORDS SUMMARY | 2024-03-30 13:28 | XMS_ITS | Encounter Summary ---
Author Organization [facility] [place] [address] Care Team Providers Care Casing Mixer Name Role Phone None Primary Care Provider Unavailabl e Encounter Details Date Type Department Care Team (Late st Contact Info) Description 03/18/2024 Telephone Cardiology at [address] [phone] Yusuf Herrera MD [facility] [place] [address] Social History Tobacco Use Types Packs/Day Years Used Date Smoking Tobacco: Former Smokeless Tobacco: Never [facility] Inpatient Questions Answer Date Recorded Does Anyone Try to Keep You From Having Contact with Others or Doing Things Outside Your Home? no 03/19/2024 Feels Threatened by Someone no 0702/2024 Feels Unsafe at Home or Work/School no 03/19/2024 Physical Signs of Abuse Present no 03/19/2024 Sex and Gender Information Value Date Recorded Sex Assigned at Not on file Gender Identity Not on file Sexual Orientation Not on file documented as of this encounter Miscellaneous Notes * Telephone Encounter - Yusuf Herrera MD - 03/18/2024 10:14 PM EDT Telephone Triage Note Initial Contact Date: 03/19/24 Initial Contact Time: 2209 Patient Location: [facility] Presenting Symptoms per OSH: 59 year old female, history of CAD c/b NSTEMI (see below), hypertension, hyperlipidemia, who was resting at home at 20:30 when she developed substernal chest pressure radiating to right arm which wasvery severe and reminiscent of prior SD. Associated with diaphoresis. No syncope, SOB, palpitations, edema, or nausea. She called EMS and was brought to the ED around 10:00 pm. Vitals - afebrile, HR 81, saturating well on room air. Had labile blood pressures. No signs of heart failure on examination. WBC 12.8, no anemia, normal platelets, CXR negative, EKG was concerning for ST elevations in lateral leads. Was given ASA 324 mg, TNK 35 mg (10:08 pm). Received SL nitroglycerin x 1 and morphine 4 m g with some relief, but was still having CP. 03/30/14 [facility] Left main: Free of angiographically significant disease. Left anterior descending: Focal 80% prox, eccentric. Left circumflex: Free of angiographically significant disease. Right coronary artery: Free of angiographically significant disease. Interventional Procedure: Using standard technique, the left anterior descending coronary artery was stented using a Resolute JAHAIRA. Pertinent Diagnostic Findings: See above OSH Interventions: See above Plan: -Advised loading with clopidogrel 300 mg and starting heparin gtt -Launch to [facility] recyclable materials collector for lateral wall STEMI Above recommendations/plans are based on my conversation with the referring provider. I have not personally interviewed or examined this patient. Yusuf Herrera MD Informatics Educator documented in this encounter Plan of Treatment Upcoming Encounters Date Type Department Care Team (Late st Contact Info) Description 05/09/2024 10:40 AM EDT Office Visit Cardiology at [address] [place] [address] Herlinda Weaver PA [facility] [place] [phone] documented as of this encounter Visit Diagnoses Not on filedocumented in this encounter Care Teams Casing Mixer Relationship Specialty Start Date End Date None None PCP - General 03/19/24 documented as of this encounter
--- OUTSIDE RECORDS SUMMARY | 2024-03-30 13:28 | XMS_ITS | Encounter Summary ---
Author Organization [facility] [place] [address] Care Team Providers Care Rougher Operator Name Role Phone None Primary Care Provider Unavailabl e Encounter Details Date Type Department Care Team (Late st Contact Info) Description 03/18/2024 External Results Emergency Department [place] [phone] Social History Tobacco Use Types Packs/Day Years Used Date Smoking Tobacco: Former Smokeless Tobacco: Never [facility] Utilities Answer Date Recorded In the past [...] any time in the past 12 m [facility], were you homeless or living in a senior living (including now)? No 03/21/2024 IPV Inpatient Questions Answer Date Recorded Does Anyone Try to Keep You From Having Contact with Others or Doing Things Outside Your Home? no 03/19/2024 Feels Threatened by Someone no 070 02/2024 Feels Unsafe at Home or Work/School [...] 10:40 AM EDT Office Visit Cardiology at [address] [place] [address] Herlinda Weaver PA [facility] [place] [address] documented as of this encounter Procedures Procedure Name Priority Date/Time Associated Diagnosis Comments ECG SCAN Routine 03/18/2024 10:18 PM EDT ECG SCAN Routine 03/18/2024 10:09 PM EDT documented in this encounter Results * Scan Doc: ECG (03/18/2024 10:18 PM EDT) Historical Provider MD MEDIA MGR SCAN EX T ORDR/RSLT * Scan Doc: ECG (03/18/2024 10:09 PM EDT) Historical Provider MD MEDIA MGR SCAN EX T ORDR/RSLT documented in this encounter Visit Diagnoses Not on filedocumented in this encounter Care Teams Rougher Operator Relationship Specialty Start Date End Date None None PCP - General 03/19/24 documented as of this encounter
--- OUTSIDE RECORDS SUMMARY | 2024-03-30 13:28 | XMS_ITS | Encounter Summary ---
Author Organization [facility] Address [facility] [place] [address] Care Team Providers Care Cigar Brander Name Role Phone Pretty Avery MD Primary Care Provider [phone] Reason for Visit * Reason Comments Basal Cell Carcinoma * Consultation (Routine) - Closed Specialty Diagnoses / Procedures Referred By Contac t Referred To Contact Dermatology Diagnoses skin lesion lower back, basel cell ca Isa Estrada MD [address] [place] [address] [facility] Dermatology [address] [place] [address] Referral ID Status Reason Start Date Expiration Date V isits Requested Visits Authorized [id number] Closed [facility] 12/17/2015 12/16/2016 1 1 Encounter Details Date Type Department Care Team (Late st Contact Info) Description 12/19/2015 2:30 PM EDT Office Visit Dermatology at [facility] [address] [place] [address] Lisa Candelario MD [facility] [place] [address] Superficial basal cell carcinoma; Seborrheic keratosis Social History Tobacco Use Types Packs/Day Years Used Date Smoking Tobacco: Former Smokeless Tobacco: Never Sex and Gender Information Value Date Recorded Sex Assigned at Not on file Gender Identity Not on file Sexual Orientation Not on file documented as of this encounter Patient Instructions * Patient Instructions* Grey Dhaliwal LPN - 12/19/2015 2:50 PM EDT Treatment and Wound Care Instructions Your treatment today: You have had an Electrodessication and Curretage (ED&C) of your skin, which is a method to remove skin cancer. This wound will heal without stitches. Allow 3-6 weeks for the wound to heal. If bleeding occurs, hold firm pressure against the wound for 15 minutes. If bleeding continues, calls the office or go to your local emergency room. Wound Care Instructions: You will need to keep the dressing placed over the wound dry and intact for 24 hours. Afterwards, perform the following wound care daily: ?? Wash your hands before changing the dressing. ?? Remove the non adherent pad and paper tape and clean the area with mild soap and water, then gently pat the area dry. ?? Apply a small amount of Vaseline to the area, then cover the wound with a non aberrant pad and paper tape. Change your dressing daily until the wound is fully healed. ?? A small amount of yellow drainage is part of normal healing. The area might appear as a small depression with redness around the edge of the wound. This is normal. ?? Please contact the office you you notice any of the following signs of infection: increased tenderness, pain, drainage, or redness that becomes hot or hard around the wound. If you have further questions or concerns, please call the office at [phone]. If it is after 5PM, or a holiday or weekend, please call [phone] and ask for the Pharmacy Resident on-call. documented in this encounter Progress Notes * Lisa Candelario MD - 12/19/2015 2:34 PM EDT DERMATOLOGY NEW PATIENT CLINIC NOTE Date of service: 12/19/2015 Isa Ro : 1965 Provider: Lisa Candelario MD Chief Complaint Patient presents with ??? Basal Cell Carcinoma The patient is seen at the request of Dr. PRETTY AVERY MD, who instructed the patient to be seen for evaluation of above HPI Isa Ro is a 50 y.o. year old female. Here for assessment of a biopsy proven ( see scan doc.) superficial multifocal basal cell carcinoma on the left lower back. The lesion was there for 3 years, lately it grew and became itchy and was subsequently biopsied. Also here for full skin exam; noother areas of concern. SKIN HX: Left lower back, BCC , ED&C on 12-19-15 Father had many skin cancers on face type unknown ADR: No Known Allergies MEDS: No current outpatient prescriptions on file. No current facility-administered medications for this visit. ROS General: feeling well Skin: denies other skin complaints EXAM General: NAD, pleasant, cooperative Skin: A total body skin exam except for areas covered by underwear was performed. This includes examination of the skin of the face, ears, neck, chest, axillae, left and right upper and lower extremities, hands and feet, abdomen, and except the areas covered by underwear were not examined. Significant skin findings: A. Left lower back - 1.2 cm pink plaque with central heme-crust c/w recent bx B. Multiple 0.4-1 cm, brown-black papules/plaques with waxy stuck on appearance, scattered on trunk ASSESSMENT/PLAN: A. Biopsy proven superficial basal cell carcinoma Procedure: Destruction of lesion. Site: left lower back. Discussed indications and expectations including risks and benefits. Verbal consent obtained. Skin prep. Local anesthesia: buffered 1% lidocaine with epinephrine. The entire lesion plus a small margin was treated by curettage and electrodesiccation 1.3 cm lesion. Post-curettage defect size: 1.3 cm. No complications. Wound dressed. Expectations (including discomfort management) and wound care reviewed. Wound dressed with paper tape and telfa - patient reacts to band aid adhesive. B. Seborrheic keratosis Follow up: 1 year for full skin exam - reminder placed in system today. I am documenting this encounter acting as the scribe for and in the presence of Dr. Candelario.: GREY DHALIWAL LPN I performed the above scribed service and agree with the accuracy of the documentation in this encounter. Lisa Candelario MD Section of Dermatology [facility] documented in this encounter Plan of Treatment Upcoming Encounters Date Type Department Care Team (Late st Contact Info) Description 05/09/2024 10:40 AM EDT Office Visit Cardiology at [address] [place] [address] Herlinda Weaver PA [facility] [place] [address] documented as of this encounter Visit Diagnoses Diagnosis Superficial basal cell carcinoma Basal cell carcinoma of skin, site unspecified Seborrheic keratosis Other seborrheic keratosis documented in this encounter Care Teams Cigar Brander Relationship Specialty Start Date End Date Pretty Avery MD [address] [place] [address] PCP - General 08/06/10 03/18/24 documented as of this encounter
--- OUTSIDE RECORDS SUMMARY | 2024-04-06 11:14 | XMS_ITS | Continuity of Care Document ---
Author Organization [place] - [facility], [facility] Address [address] [place] [address] Assessment Encounter Date Assessment Date Assessment LastModified by Organization Details LastModified Time 04/04/2024 04/04/2024 The patient was seen and examined by myself in conjunction with Marisela Acuna, MELECIO student at [employer]. I interviewed, examined and I agree fully with the examination and management plans as outlined in note. khb The total time devoted to today's encounter, including both the suvb-wc-oxoz time with the patient and/or family/caregiv er and ffj-dwqq-gh-fa ce time I personally spent is 45 minutes. Flu vaccine: declines Comirnaty: declines Td: current- due 2028 PCV20: n/a Shingrix: declines RSV: counseled to get at local pharmacy as desires Pap/ HPV: current - last 2020 Mammogram: declines- last 2022 CRC: Last 2017, due every 5 years DEXA: n/a NV in 6 weeks for fasting- lipids, CMP Follow-up in 3 Months. Call or RTO sooner if needs arise. Not available 04/04/2024 08:54:31 Plan of Treatment Reminders Order Date Submit Date Provider Last Modified By Organization Details Last Modified Time Details Appointments Nurse Visit 2023 08:00A M [place] [facility] Not available Not available Not available Follow Up 2023 09:30A M ROSALBA MCKEON Not available Not available Not available Lab None recorded. Referral None recorded. Procedures None recorded. Surgeries None recorded. Imaging None recorded. Medication Orders rosuvasta tin 40 mg tablet 2023 024 JOSEL[facility]IS [id number], [address] [place], [address], 04/04/2024 08:50:04 Patient TargetsNo targets recorded. Patient InstructionsNo instructions recorded. Reason for Referral Floor Covering Layer Referral fo r Herpes zoster Referring Physician: Altagracia Delcid [facility], Encounter Date: 09/19/2023 Charge Histotechnologist Referral for Herpes zoster Referring Physician: Altagracia Delcid [facility], Encounter Date: 09/19/2023 Physical Therapist Referral for Muscle spasm of cervical muscle of neck Referring Physician: Altagracia Delcid [facility], Encounter Date: 01/15/2024 Problems Name Status Onset Date Resolution Date Notes Provider Name and Address Organization Details Recorded Time Hypothyroidis m Active 201205/08/2020 - Comments only - Rosalba Mckeon STATION MANAGER - without medication. check next in January 02. Problem Code: E03.9; Problem Code Type: ICD-10; [address], [place], [address] , [facility] 4 14:32:58 Essential hypertension Active 201205/08/2020 - Comments only - Rosalba Mckeon STATION MANAGER - no desires to take her medication on a daily basis. Encouraged daily use of medication and check her BP routinely. Check BMP January 02. Problem Code: I10; Problem Code Type: ICD-10; [address], [place], [address] , [facility] 4 14:32:58 Atheroscleros is of coronary artery without angina pectoris Active 201305/08/2020 - Comments only - Rosalba Mckeon STATION MANAGER - No desires for statin. Encouraged daily use of her losartan. Continue ASA. encouraged to FU with cardiology. Problem Code: I25.10; Problem Code Type: ICD-Katya; [address], [place], [address] , [facility] 4 14:32:58 Hyperlipidemi a Active 201305/08/2020 - Comments only - Rosalba Mckeon STATION MANAGER - no desires for statin. Problem Code: E78.5; Problem Code Type: ICD-10; [address], [place], [address] , [facility] 4 14:32:58 Acute non-ST segment elevation myocardial infarction Active 2013 Problem Code: I21.4; Problem Code Type: ICD-10; [address], [facility] [id number] [place] [address] 4 14:32:58 Gastroesophag eal reflux disease without esophagitis Active 201505/08/2020 - Comments only - Rosalba Mckeon STATION MANAGER - with duodenitis and dysphagia. Encouraged daily PPI, she is not interested. Continue with diet mgmt. Problem Code: K21.9; Problem Code Type: ICD-10; [address], [place], [address] , [facility] 4 14:32:58 Exercise induced bronchospasm Active 201505/08/2020 - Comments only - Rosalba Mckeon STATION MANAGER - no complaints of. monitor for now. Problem Code: J45.990; Problem Code Type: ICD-10; [address], [place], [address] , [facility] 4 14:32:58 Dysphagia Active 201509/05/2016 - Comments only - Isa Estrada MD - Patient is having worsening dyspagia and I will refer her to GI for an EGD to make sure there is not significant pathology. Problem Code: R13.10; Problem Code Type: ICD-10; [address], [place], [address] , [facility] 4 14:32:58 Adult health examination Active 2015 Problem Code: Z00.00; Problem Code Type: ICD-10; ROSALBA MCKEON APRN [address], [facility] [address] , [facility] 4 14:32:58 Pain of right knee joint Completed 201602/16/2017 01/16/2017 - Comments only - Bell Chaviraenger TRANSIT MECHANIC - - I do not think it [...] M25.561; Problem Code Type: ICD-10; Not Available [facility] 3 04:31:04 Duodenitis Active 2017 Problem Code: K29.80; Problem Code Type: ICD-10; ROSALBA MCKEON APRN [address], [place], [address] , [facility] 4 14:32:58 Fatigue Active 201707/26/2021 - Comments only - Rosalba Mckeon APRN - differentials include lyme disease, thyroid in origin, anemia. Check CBCD, iron stores, ferritin, TSH with R, tick and lyme panel. Problem Code: R53.83; Problem Code Type: ICD-10; [address], [place], [address] , [facility] 4 14:32:58 Migraine with aura Active 2018 Problem Code: G43.109; Problem Code Type: ICD-10; [address], [place], [address] , [facility] 4 14:32:58 Chronic sinusitis Completed 201808/26/2019 Problem Code: J32.9; Problem Code Type: ICD-10; Not Available [facility] 3 04:31:05 Eustachian tube disorder Completed 201809/14/2019 Problem Code: H69.90; Problem Code Type: ICD-10; Not Available [facility] 3 04:31:05 Screening for malignant neoplasm of breast Active 2019 Problem Code: Z12.39; Problem Code Type: ICD-10; ROSALBA MCKEON APRN [address], [place], [address] , [facility] 4 14:32:58 Angina pectoris Active 202006/14/2021 - Comments only - Isa Estrada MD - Isa Ro comes in today [...] Problem Code: I20.9; Problem Code Type: ICD-10; ROSALBA MCKEON APRN [address], [place], [address] , [facility] 4 14:32:58 Carotid artery stenosis Active 202007/26/2021 - Comments only - Rosalba Mckeon APRN - Hyperlipidemi a. CAD. Rev'd her US results and compared them to 2019 and 2013. Based on results, recommended to treat with [...] it causes GI upset. [address], [facility] [address] , [facility] 4 14:32:58 Seasonal allergic rhinitis Active 2020 Problem Code: J30.2; Problem Code Type: ICD-10; [address], [facility] [address] , [facility] 4 14:32:58 Gestational diabetes mellitus Active 2020 Problem Code: O24.419; Problem Code Type: ICD-10; [address], [facility] [address] , [facility] 4 14:32:58 Family history of breast cancer Active 2020 Problem Code: Z80.3; Problem Code Type: ICD-10; [address], [facility] [address] , [facility] 4 14:32:58 Nicotine dependence Active 2020 Problem Code: Z87.891; Problem Code Type: ICD-Katya; [address], [facility] [address] , [facility] 4 14:32:58 Genuine stress incontinence Active 2020 Problem Code: N39.3; Problem Code Type: ICD-10; [address], [place] [address] , [facility] 4 14:32:58 Cramp in lower limb associated with sleep Active 2020 Problem Code: G47.62; Problem Code Type: ICD-10; [address], [place] [address] , [facility] 4 14:32:58 Raynaud's disease Active 2020 Problem Code: I73.00; Problem Code Type: ICD-10; [address], [address] 4 14:32:58 Aphasia Active 2020 Problem Code: R47.01; Problem Code Type: ICD-10; [address], [address] 4 14:32:58 Atypical squamous cells of undetermined significance on cervical Papanicolaou smear Active 2021 Problem Code: R87.610; Problem Code Type: ICD-10; [address], [address] 4 14:32:58 Cough Active 2021 Problem Code: R05.8; Problem Code Type: ICD-10; [address], [address] 4 14:32:58 Family history of malignant neoplasm of digestive organ Active 2022 Problem Code: Z80.0; Problem Code Type: ICD-10; [address], [address] 4 14:32:58 Screening for malignant neoplasm of colon Active 2022 Problem Code: Z12.11; Problem Code Type: ICD-10; [address], [facility] [address] , [facility] 4 14:32:58 Abdominal pain Active 2022 Problem Code: R10.9; Problem Code Type: ICD-10; [address], [place] [address] , [facility] 4 14:32:58 Altered bowel function Active 2022 Problem Code: R19.4; Problem Code Type: ICD-10; [address], [facility] [address] , [facility] 4 14:32:59 Acute subendocardia l infarction Completed 201306/10/2023 Problem Code: 410.72; Problem Code Type: ICD-9; Not Available [facility] 3 04:31:08 Posttraumatic headache Completed 201809/10/2021 Problem Code: G44.309; Problem Code Type: ICD-10; Not Available [facility] 3 04:31:08 Disorder of eye region Completed 201905/08/2020 Problem Code: H57.89; Problem Code Type: ICD-10; Not Available [facility] 3 04:31:08 Disorder of skin and/or subcutaneous tissue Completed 201502/19/2016 Problem Code: L98.9; Problem Code Type: ICD-10; Not Available [facility] 3 04:31:08 Dyspnea Completed 201502/19/2016 Problem Code: R06.09; Problem Code Type: ICD-10; Not Available [facility] 3 04:31:09 Neck pain Completed 201409/10/2021 Problem Code: M54.2; Problem Code Type: ICD-10; Not Available [facility] 3 04:31:09 Hypertensive disorder Completed 201206/10/2023 Not Available [facility] 3 04:31:09 Visual disturbance Completed 201709/12/2019 Problem Code: H53.9; Problem Code Type: ICD-10; Not Available [facility] 3 04:31:09 Headache Completed 201709/12/2019 Problem Code: R51; Problem Code Type: ICD-10; Not Available [facility] 3 04:31:09 Exposure to communicable disease Completed 201905/08/2020 Problem Code: Z20.828; Problem Code Type: ICD-10; Not Available [facility] 3 04:31:10 Constipation Completed 201705/08/2020 Problem Code: K59.00; Problem Code Type: ICD-10; Not Available [facility] 3 04:31:10 Exposure to sting or bite by insect Completed 202112/08/2022 Not Available [facility] 3 04:31:10 Traumatic or non-traumatic injury Completed 201605/08/2020 Problem Code: T14.8; Problem Code Type: ICD-10; Not Available [facility] 3 04:31:10 Sciatica Completed 201809/10/2021 Problem Code: M54.30; Problem Code Type: ICD-10; Not Available [facility] 3 04:31:10 Bleeding from nose Completed 202203/30/2023 Problem Code: R04.0; Problem Code Type: ICD-10; Not Available [facility] 3 04:31:11 Low back pain Completed 202009/10/2021 Problem Code: M54.5; Problem Code Type: ICD-10; Not Available [facility] 3 04:31:11 Pain in left foot Completed 202203/30/2023 Problem Code: M79.672; Problem Code Type: ICD-10; Not Available [facility] 3 04:31:11 Dizziness and giddiness Completed 202203/30/2023 Problem Code: R42; Problem Code Type: ICD-10; Not Available [facility] 3 04:31:11 Pain of right shoulder joint Completed 201909/10/2021 Problem Code: M25.511; Problem Code Type: ICD-10; Not Available [facility] 3 04:31:11 Chest pain Completed 201412/08/2022 Problem Code: R07.89; Problem Code Type: ICD-10; Not Available [facility] 3 04:31:12 Fever Completed 202112/08/2022 Problem Code: R50.9; Problem Code Type: ICD-10; Not Available [facility] 3 04:31:12 Exposure to communicable disease Completed 201909/10/2021 Problem Code: Z20.9; Problem Code Type: ICD-10; Not Available [facility] 3 04:31:12 Coronary arteriosclero sis Completed 201306/10/2023 Not Available [facility] 3 04:31:13 Abnormal weight gain Completed 202203/30/2023 Problem Code: R63.5; Problem Code Type: ICD-10; Not Available [facility] 3 04:31:13 Streptococcal sore throat Active 2022 ROSALBA MCKEON APRN [address], [place], [address] , [facility]. 4 14:32:58 Infection of tooth Active 2023 ROSALBA MCKEON APRN [address], [place], [address] , [facility]. 4 14:32:58 Oral infection Active 2023 ROSALBA MCKEON APRN [address], [place], [address] , [facility]. 4 14:32:58 Herpes zoster Active [address], [facility] [address] , [facility] 4 14:32:58 Post-herpetic polyneuropath y Active [address], [facility] [address] , [facility] 4 15:37:27 Itching of eye Active [address], [facility] [address] , [facility] 4 11:33:48 Muscle spasm of cervical muscle of neck Active [address], [facility] [address] , [facility] 4 16:37:40 Increased liver function Active [address], [facility] [address] , [facility] 4 04:54:49 Nonulcer dyspepsia Active [address], [facility] [address] , [facility] 4 08:26:01 Problem Notes None recorded. Medical Equipment None Reported. Allergies Allergen ID Allergen Name Allergen Category Reaction Reaction Severity Criticality Documentation Date Start Date Code Code System Note Provider Name and Address Organization Details Recorded Time 59099 lisinopri l medicatio n cough mild Not available 07/24/20232013 28081 RxNorm cough Aller gyCod e: '3140 76'; Aller gyNam e: 'RAJIV NOPRI L'; Aller gyCon ceptT ype: 'RX Norm' ; Not Available [facility] 3 16:14:44 Medications Name Sig Start Date Stop Date Status Note LastModified by Organization Details LastModified Time cyclobenza riya 10 mg tablet Take 1 tablet every day by oral route at bedtime for 5 days, for muscle spasm. 04/04 completed Not Available Not Available Not Available amoxicilli n 500 mg capsule TAKE ONE CAPSULE BY MOUTH EVERY 12 HOURS FOR 10 DAYS 09/19 completed Not Available Not Available Not Available atorvastat in 40 mg tablet 1 tab daily 09/06 completed Not Available Not Available Not Available atorvastat in 80 mg tablet Take 1 tablet every day by oral route. 04/04 completed Not Available Not Available Not Available Xanax 0.5 mg tablet 1 tablet by mouth 09/10 completed Not Available Not Available Not Available azelastine 0.05 % eye drops INSTIL 1 DROP INTO THE AFFECTED EYE(S) TWO TIMES A DAY 04/04 completed Not Available Not Available Not Available prednisone 10 mg tablet 6 po [...] completed Not Available Not Available Not Available Plavix 75 mg tablet Take 1 tablet every day by oral route. active Not Available Not Available No t Available valacyclov ir 500 mg tablet Take [...] completed Not Available Not Available Not Available carvedilol 3.125 mg tablet Take 1 tablet twice a day by oral route. 04/04 completed Not Available Not Available Not Available Tessalon Perles 100 mg capsule 1 CAP three times daily 01/30 completed Not Available Not Available Not Available Nitrostat 0.[address] 1 tablet under tongue 2017 active Not Available Not Available Not Avai lable losartan 25 mg tablet TAKE ONE-HALF TABLET BY MOUTH EVERY DAY 04/04 completed Not Available Not Available Not Available gabapentin 300 mg capsule Take 1 [...] Not Available Not Available Not Available metoprolol succinate ER 25 mg tablet,ext ended release 24 hr TAKE ONE-HALF TABLET BY MOUTH NIGHTLY 04/04 completed Not Available Not Available Not Available Pepcid 20 mg tablet Take 1 tablet twice a day by oral route as needed. active Not Available Not Available No t Available Ativan 0.5 mg tablet 1 tab [...] EXCESS INTO LID MARGIN. SHAKE BEFORE USING 04/04 completed Not Available Not Available Not Available rosuvastat in 40 mg tablet Take 1 tablet every day by oral route. 2023 active Not Available Not Available Not Avai lable Prilosec OTC 20 mg tablet,del ayed release 1 TAB daily 12/21 completed Not Available Not Available Not Available metoprolol tartrate 25 mg tablet 1/2 tab twice a day 09/06 completed Not Available Not Available Not Available aspirin 81 mg. Take 1 tab daily active Not Available Not Available No t Available Co Q-10 take 1 tab / day active Not Available Not Available No t Available ProAir HFA 90 mcg/actuat ion aerosol [...] FOUR TIMES A DAY FOR 7 DAYS 04/04 completed Not Available Not Available Not Available Breo Ellipta 100 mcg-25 mcg/dose powder for inhalation take 1 puff inhalati on once daily 09/05 completed Not Available Not Available Not Available metoprolol succinate ER 25 mg capsule sprinkle, ext. release 24 hr Take 0.5 capsules every day by oral route. active Not Available Not Available No t Available Artificial Tears (carboxyme thylcellul ose) 1 % eye drops Apply 1 drop 4 times a day by ophthalm ic route for 7 days. 04/04 completed Not Available Not Available Not Available Zerviate 0.24 % eye drops in a dropperett e 04/04 completed Not Available Not Available Not Available Vitals Date Recorded Body height Body mass index (BMI) Body weight Heart rate Systolic blood pressure Diastolic blood pressure Provider Name and Address Organization Details Last Updated DateTime 4 159.26 cm 22.3 kg/m2 51878.6 1 g 64 /min 128 mm[Hg] 82 mm[Hg] Sujatha Massey RN [facility] 4 08:18:55 Social History Question Answer Notes LastModified by Organizat ion Details LastModified Time Tobacco Smoking Status Former Smoker JAMAR MEJIA RN [facility], [facility] 08/21/2023 11:02:00 When Did You Quit Smoking? 16+yearssinc elastcigaret te [email or web address] Information not available 08/21/2023 What Was The Date Of Your Most Recent Tobacco Screening? 01/15/2024 [email or web address] Information not available 01/15/2024 Has Tobacco Cessation Counseling Been Provided? No [email or web address] Information not available 08/21/2023 Do You Or Have You Ever Used Any Other Forms Of Tobacco Or Nicotine? No [email or web address] Information not available 08/21/2023 Sex: Female Functional [...] Recorded Time Tdap 07/21/2019 completed Not Available [facility] 06:27:29 Td(adult) unspecified formulation 01/13/2005 completed Not Available [facility] 07/24/2023 06:27:29 COVID-19, mRNA, LNP-S, PF, 100 mcg/0.5mL dose or 50 mcg/0.25mL dose 07/13/2021 completed Not Available [facility] 07/24/20 06:27:29 COVID-19 vaccine, vector-nr, rS-Ad26, PF, 0.5 mL 11/30/2020 completed Not Available [facility] 07/24/2023 06:27:30 Past Encounters Encounter ID Performer Location Encounter Start Date Encounter Closed Date Diagnosis/Indication Diagnosis SNOMED-CT Code [id number] ROSALBA MCKEON [address] [address] 04/04/2024 08:05:40 04/04/2024 08:58:24 Atherosclerosis of coronary artery without angina pectoris 619532674706274 Nicotine dependence 5629 4008 Increased liver function 11129260 Nonulcer dyspepsia 30599 07 Health Concerns Section Related Observation LastModified by Organization Detai ls LastModified Time None Recorded Concern Status LastModified by Organization Details LastModified Time None Recorded Payers Encounter Date Sequence Insurance Name Policy Number Policy Horan Covered Member ID Horan Member ID Guarantor Name 04/04/2024 1 [facility] (MEDICAID) Isa Ro [id number] Isa Ro Notes Date Note Type Note Provider Name and Address Organization Details Recorded Time 04/04/2024 text/html HPI Notes: Is he re for follow-up hospital stay. Was admitted to [facility] on 03/19/22.4 Discharged on 03/22/24 [address] dx was acute ST elevation [place] due to occlusion of left anterior descending coronary artery. Normal BMP. Iron, TIBC, iron sat were normal. Troponins elevated. 12 lead EKG showed poor r wave progression, T wave abnormality, prolonged QT. Echo done- normal LF size and mildly reduced LV function. LV ejection fraction 49%. LAD territory wall motion abnormality, predominantly involving the LV apex. No LV thrombus visualized. Normal right ventricle. no significant valvular abnormalities. CXR showed atelectasis. Coag panel normal. A1C was 5.6. TC 324. TRG 200. HDL 68. LDL 216. LFTs were normal except for elevated AST. Cardiac cath was completed, stent inserted to LAD, it was JAHAIRA. DAPT for 1 year. started on asa, plavix. HPI notes from hospital- anterior STEMI, hypoxic respiratory failure requiring non invasive ventilation. Provided ASA, nitro, TNK. Had 100% occluded mid LAD. Started on Bipap, provided lasix. Had BNP, troponins, ASA, plavix, atorvastatin, start of ACEI/ARB. Discharge meds ASA 81mg Plavix 75mg Coreg 3.125mg BID atorvastatin 80mg daily CoQ10 supplementation Was referred to [facility] cardiology. has [facility] cardiology appt scheduled. She was having symptoms with coreg, this was stopped by oncall provider and switched back to metoprolol succ. BP had been 100/55 with coreg. She does admit that previously using metoprolol and her HR never raised up with activity and caused fatigue and had stopped. ROSALBA MCKEON, STATION MANAGER [address], [place], [address], [facility], [facility]. 04/04/2024 09:58:16 OBGyn Episode No OBEpisode recorded.
--- OUTSIDE RECORDS SUMMARY | 2024-04-06 11:14 | XMS_ITS | Data Portability ---
Author Organization [place] - [facility] [place] [address] Assessment Encounter Date Assessment Date Assessment LastModified [...] to conduct this encounter using appropriate technology. [email or web address] Not available 10/02/2023 15:53:25 04/04/2024 04/04/2024 The patient was seen and examined by myself in conjunction with MELECIO Reese student at [facility]. I interviewed, examined and I agree fully with the examination and management plans as outlined in note. khb The total time devoted to today's encounter, including both the ekgv-tm-vrvi time with the patient and/or family/caregiv er and tge-wods-zd-fa ce time I personally spent is 45 [...] Last Modified Time Details Appointments Nurse Visit 30 2023 08:00A Donald Kaylan Nursing Staff Not available Not available Not available Follow Up 30 2023 09:30A Donald MCKEON Not available Not available Not available Lab rapid strep group A, throat 2023 024 [facility], [address], [address], [place], [address], 01/15/2024 16:39:11 culture, throat 2023 024 JOSELUIS [facility] (Registration ), [address] [place] [address] , [place], [address], 01/16/2024 12:10:34 Referral physical therapist referral 2023 024 JOSELUIS Araujo PT, [address] , [place], [address], 01/25/2024 15:03:28 Procedures None recorded. Surgeries None recorded. Imaging None recorded. Medication Orders gabapenti n 300 mg capsule 2023 024 [email or web address] 1 [facility], [address] [place] [address], [id number], 01/15/2024 15:29:36 Artificia l Tears (carboxym ethylcell ulose) 1 % eye drops 2023 024 OJSELUIS [facility], [address] [place] [address], [address], 04/04/2024 08:15:28 cetirizin e 0.24 % eye drops in a dropperet te 2023 024 [email or web address] [facility], [address] [place], [address], 04/04/2024 08:14:54 cyclobenz aprine 10 mg tablet 2023 024 JOSELUISROSA [facility], [address] [place] [address], [address], 04/04/2024 08:15:08 rosuvasta tin 40 mg tablet 2023 024 JOSELUIS [facility], [address] [place] [address], [address], 04/04/2024 08:50:04 Patient TargetsNo targets recorded. Patient Instructions Encounter Date Encounter Id Patient Instructions Last Modified By Organization Details Last Modified Time 10/17/2023 [id number] 1. I have sent 2 medications to [...] have follow-up either with primary care or [facility] eye care. Given that you are already established there it might be easiest and best to follow-up with them if not improved. Not available 10/17/2023 11:39:01 01/15/2024 [id number] 1. Rapid strep i s negative. Throat [...] to the physical therapist office for Kavon Araujo at the [facility] location. If they cannot get you in any want referral elsewhere please let us know when we call you on Thursday to go over throat culture. 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 Referral for Herpes zoster Referring Physician: Family Gonzalo Rapp, Encounter Date: 09/19/2023 Physical Therapist Referral for Muscle spasm of cervical muscle of neck Referring Physician: Family Gonzalo Rapp, Encounter Date: 01/15/2024 Results Created Date Observation Date Name Description Value Unit Range Abnormal Flag LastModifiedBy Organization Detail LastModifiedTime 09/08/2009/10/2023 THROA T AEROB IC CULTU RE throat aerobic culture Not Available [address] [place], [address] 09/10/2023 09:32:21 09/08/20 23 09/11/2023 THROA T AEROB IC CULTU RE throat aerobic culture Not Available [facility] (Registration ) [address] [place] [address] [place], [address], 09/11/2023 09:02:20 09/08/2009/08/2023 rapid strep group A, throa t Strep negati ve Not Available [address] [place], [address], 09/08/2023 13:47:02 09/08/20 23 09/08/2023 influ randa virus A + B + SARS- CoV-2 (COVI D19) Ag panel , rapid IA, upper respi rator y speci men Influenza A negati ve Not Available [address], [place], [address], 09/08/2023 13:46:53 09/08/20 23 09/08/2023 influ randa virus A + B + SARS- CoV-2 (COVI D19) Ag panel , rapid IA, upper respi rator y speci men Influenza B negati ve Not Available [address], [place], [address], 09/08/2023 13:46:53 09/08/20 23 09/08/2023 influ randa virus A + B + SARS- CoV-2 (COVI D19) Ag panel , rapid IA, upper respi rator y speci men SARS-COV-2 negati ve Not Available [address], [place], [address], 09/08/2023 13:46:53 01/15/20 24 01/16/2024 THROA T AEROB IC CULTU RE throat aerobic culture Not Available [facility] (Registration ) [address] [place] [address] , [place], [address], 01/16/2024 11:50:36 01/15/20 24 01/17/2024 THROA T AEROB IC CULTU RE throat aerobic culture Not Available [facility] (Registration ) [address] [place] [address] [place], [address], 01/17/2024 07:27:17 01/15/20 24 01/15/2024 rapid strep group A, throa t Strep negati ve Not Available [address], [place], [address], 01/15/2024 15:19:00 08/31/20 23 08/31/2023 trans -thor acic echoc ardio gram (TTE) (PROC ) No observ ation record ed. ba [facility] - Exercise Stress Test/Charan/Stre ss Echo Scheduling [address] [place], [address], 08/31/2023 11:13:18 09/04/20 23 08/28/2023 trans -thor acic echoc ardio gram (TTE) (PROC ) No observ ation record ed. Not Available 09/04/2023 11:09:14 09/20/1909/19/2023 ED visit note ED Visit Note CHRISTINA Holliday NAME: Aimee Dia UNIT #: [id number] ADMITT ING PROVID ER: Nathan Perez BUSINESS SOLUTIONS ARCHITECT ACCOUN T #: [id number] PRIMAR Y CARE PROVID ER: AIMEE WHITEA DATE OF ADMIT: : 1964 HPI Genera l Stated Compla int: GenMed ical Mode of arriva l: ambula tory. ZORAIDA: 3 Date/T anne Provid er Initia joseph Docume ntatio n: 14:37. Limita tions to Docume ntatio n: no limita tions. Inform ation obtain ed by: christina holliday, RN/MD and RN notes review ed. Histor y of Marcin holliday Illnes s Facial shingl es modera te and severe face day(s) (3) consta nt Medica tion improv es sympto m(s), No exacer bating factor s report ed no other sympto ms. NSAID Relate d Data Home Medica tions Medica tion Instru ctions Record ed Confir med acetam inophe n 500 mg tablet 500 mg PO PRN PRN (Tylen ol Extra Streng th) ibupro fen 200 mg tablet (Advil ) [...] in D3) 25 25 mcg PO DAILY 10/04/ 21 01/06/ 24 mcg (1,000 unit) tablet (Vitam in D3) [...] intest inal: Denies odynop hagia Integu mentar y/[place] sts Skin/B reast: Report s as per HPI and Report s rash Allerg ic/Imm unolog ic Allerg ic/Imm unolog ic: Denies throat swelli ng PFSH All Active Proble ms (Revie thu @ 11:06 by Ofelia Perez, BUSINESS SOLUTIONS ARCHITECT) Herpes zoster (Acute ) Abdomi nal bloati [...] (Revie thu @ 11:06 by Ofelia Perez, BUSINESS SOLUTIONS ARCHITECT) Family histor y of colon cancer Histor y of placem ent of stent in LAD vogt ry artery 03/2014 [facility] No-chris w for appoin [facility] Consti pation Hypert ension Abdomi nal pain Asthma , exerci se induce d Tick bite Hypoth yroidi sm Dyspha ronaldo Surgic al Histor y (Revie thu @ 11:06 by Ofelia Perez BUSINESS SOLUTIONS ARCHITECT) H/O colono scopy (06/18) Dr Mauricio , normal , repeat in 10 years Histor y of esopha gogast roduod enosco py (EGD) (06/18) Dr Mauricio , normal , repeat PRN Histor y of C-sect ion Histor y of vogt ry artery stent placem ent Family Histor y (Revie thu @ 11:06 by Ofelia Perez BUSINESS SOLUTIONS ARCHITECT) Father Gliobl astoma Hyperl ipidem ia Heart diseas e Patern al Grandm other Gliobl astoma Mother Hypert ension Heart diseas e Social Histor y (Revie thu @ 11:06 by Ofelia Perez BUSINESS SOLUTIONS ARCHITECT) 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 Use Status : Former Tobacc o Use Quit Date: Tobacc o: How many years used: 10 Smokin g risk assess ment perfor med?: Yes Alcoho l Intake : curren t Alcoho l Intake freque ncy: 0-2 drinks per day Alcoho l type: beer and hard liquor Drug use: Occasi onally Substa nce use type: keely abdalla Househ old member s: family Number of Childr en: 1 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 Patien t states earlie r this week she though t she had a dental infect ion and was placed upon antibi otic. Then she starte d notici ng this mornin g some sores and lesion s to her face and went to urgent care. She was diagno sed with zoster and placed on antivi rals and viscou s lidoca ine for discom fort. Christina holliday concer trey that this will not be enough to manage her pain. Physic al exam shows obviou s findin gs of zoster to the left side of christina holliday's face in the facial nerve distri bution no signs of Victor Ellis syndro me or ocular involv ement on basic visual exam. Christina holliday also denies any ocular pain discom fort or rednes s. Discus sed with christina holliday additi onal option s includ ing gabape ntin along with steroi ds and lidoca ine cream for scalp and other nonmuc osal areas of involv ement. She was agreea ble to try these. Given that I only notice d four lesion s I do not feel that christina holliday needs opioid s at this time. It was also noted that christina holliday had elevat ed blood pressu re but she states that she had stoppe d her losart an given that she has been taking ibupro fen. I did inform her that she could contin ue to use these on a limite d basis and I do think that christina holliday should follow -up with primar y care provid er for reasse ssment to ensure that she is improv ing on the antivi rals alread y prescr ibed along with the additi onal pain medica tion. After discus pj of diagno sis and plan of care christina holliday has no furthe r needs, questi ons, or concer ns and states clear unders tandin g to return to the emerge ncy depart ment for any worsen ing sympto ms. This docume ntatio n was genera joseph using Pureshieldat ion system , please disreg tara any odditi es of phrase or misspe llings . Qualit y:SDOH Health Relate d Social Needs: No Data to Displa y Discha rge Plan Dispos ition Christina holliday Dispos ition: Home Condit ion: Stable [...] ------ --- Dictat ed by: MARIANNE Villa NP, OFELIA Dictat ed: Time: 1438 Date: 1107 [...] error, please notify us immedi maribelly at [phone] and return the origin al report to us at the addres s above. Thank you. han [address], [place], [address] 09/21/2023 15:46:33 Result Notes None recorded. Problems Name Status Onset Date Resolution Date Notes Provider Name and Address Organization Details Recorded Time Hypothyroidis m Active 201205/08/2020 - Comments only - Rosalba Mckeon BAKERY MANAGER - without medication. check next in January 02. Problem Code: E03.9; Problem Code Type: ICD-10; [address], [place], [address] , [facility] 4 14:32:58 Essential hypertension Active 201205/08/2020 - Comments only - Rosalba Mckeon BAKERY MANAGER - no desires to take her medication on a daily basis. Encouraged daily use of medication and check her BP routinely. Check BMP January 02. Problem Code: I10; Problem Code Type: ICD-10; [address], [place], [address] , [facility] 4 14:32:58 Atheroscleros is of coronary artery without angina pectoris Active 201305/08/2020 - Comments only - Rosalba Mckeon BAKERY MANAGER - No desires for statin. Encouraged daily use of her losartan. Continue ASA. encouraged to FU with cardiology. Problem Code: I25.10; Problem Code Type: ICD-10; [address], [place], [address] , [facility] 4 14:32:58 Hyperlipidemi a Active 201305/08/2020 - Comments only - Rosalba Mckeon BAKERY MANAGER - no desires for statin. Problem Code: E78.5; Problem Code Type: ICD-10; [address], [place], [address] , [facility] 4 14:32:58 Acute non-ST segment elevation myocardial infarction Active 2013 Problem Code: I21.4; Problem Code Type: ICD-10; [address], [place], [address] , [facility] 4 14:32:58 Gastroesophag eal reflux disease without esophagitis Active 201505/08/2020 - Comments only - Rosalba Mckeon APRN - with duodenitis and dysphagia. Encouraged daily PPI, she is not interested. Continue with diet mgmt. Problem Code: K21.9; Problem Code Type: ICD-10; [address], [place], [address] , [facility] 4 14:32:58 Exercise induced bronchospasm Active 201505/08/2020 - Comments only - Rosalba Mckeon APRN - no complaints of. monitor for now. Problem Code: J45.990; Problem Code Type: ICD-10; [address], [facility] [address] , [facility] 4 14:32:58 Dysphagia Active 201509/05/2016 - Comments only - Isa White MD - Patient is having worsening dyspagia and I will refer her to GI for an EGD to make sure there is not significant pathology. Problem Code: R13.10; Problem Code Type: ICD-10; [address], [place], [address] , [facility] 4 14:32:58 Adult health examination Active 2015 Problem Code: Z00.00; Problem Code Type: ICD-10; [address], [place], [address] , [facility] 4 14:32:58 Pain of right knee joint Completed 201602/16/2017 01/16/2017 - Comments only - Bell Dumas ACCOUNT CLASSIFICATION CLERK - - I do not think it [...] M25.561; Problem Code Type: ICD-10; Not Available [facility] 3 04:31:04 Duodenitis Active 2017 Problem Code: K29.80; Problem Code Type: ICD-10; [address], [facility] [address] , [facility] 4 14:32:58 Fatigue Active 201707/26/2021 - Comments only - Rosalba Mckeon APRN - differentials include lyme disease, thyroid in origin, anemia. Check CBCD, iron stores, ferritin, TSH with R, tick and lyme panel. Problem Code: R53.83; Problem Code Type: ICD-10; [address], [facility] [address] , [facility] 4 14:32:58 Migraine with aura Active 2018 Problem Code: G43.109; Problem Code Type: ICD-10; [address], [facility] [address] , [facility] 4 14:32:58 Chronic sinusitis Completed 201808/26/2019 Problem Code: J32.9; Problem Code Type: ICD-10; Not Available [facility] 3 04:31:05 Eustachian tube disorder Completed 201809/14/2019 Problem Code: H69.90; Problem Code Type: ICD-10; Not Available [facility] 3 04:31:05 Screening for malignant neoplasm of breast Active 2019 Problem Code: Z12.39; Problem Code Type: ICD-10; [address], [facility] [address] , [facility]. 4 14:32:58 Angina pectoris Active 202006/14/2021 - [...] ICD-10; ROSALBA MCKEON APRN [address], [place], [address] , [facility]. 4 14:32:58 Carotid artery stenosis Active 202007/26/2021 [...] other day because it causes GI upset. ROSALBA MCKEON APRN [address], [place], [address] , [facility]. 4 14:32:58 Seasonal allergic rhinitis Active 11/12/ 2021 Problem Code: J30.2; Problem Code Type: ICD-10; [address], [address] 4 14:32:58 Gestational diabetes mellitus Active 2020 Problem Code: O24.419; Problem Code Type: ICD-10; [address], [address] 4 14:32:58 Family history of breast cancer Active 2020 Problem Code: Z80.3; Problem Code Type: ICD-10; [address], [address] 4 14:32:58 Nicotine dependence Active 2020 Problem Code: Z87.891; Problem Code Type: ICD-10; [address], [address] 4 14:32:58 Genuine stress incontinence Active 2020 Problem Code: N39.3; Problem Code Type: ICD-10; [address], [address] 4 14:32:58 Cramp in lower limb associated with sleep Active 2020 Problem Code: G47.62; Problem Code Type: ICD-10; [address], [address] 4 14:32:58 Raynaud's disease Active 2020 Problem Code: I73.00; Problem Code Type: ICD-10; [address], [address] 4 14:32:58 Aphasia Active 2020 Problem Code: R47.01; Problem Code Type: ICD-10; [address], [facility] [address] [address] 4 14:32:58 Atypical squamous cells of undetermined significance on cervical Papanicolaou smear Active 2021 Problem Code: R87.610; Problem Code Type: ICD-10; [address], [facility] [address] [place] [address] 4 14:32:58 Cough Active 2021 Problem Code: R05.8; Problem Code Type: ICD-10; [address], [facility] [address] [place] [address] 4 14:32:58 Family history of malignant neoplasm of digestive organ Active 2022 Problem Code: Z80.0; Problem Code Type: ICD-10; [address], [facility] [address] , [facility] 4 14:32:58 Screening for malignant neoplasm of colon Active 2022 Problem Code: Z12.11; Problem Code Type: ICD-10; [address], [facility] [address] , [facility] 4 14:32:58 Abdominal pain Active 2022 Problem Code: R10.9; Problem Code Type: ICD-10; [address], [facility] [address] [address] 4 14:32:58 Altered bowel function Active 2022 Problem Code: R19.4; Problem Code Type: ICD-10; [address], [facility] [address] , [facility]. 4 14:32:59 Acute subendocardia l infarction Completed 201306/10/2023 Problem Code: 410.72; Problem Code Type: ICD-9; Not Available [facility] 3 04:31:08 Posttraumatic headache Completed 201809/10/2021 Problem Code: G44.309; Problem Code Type: ICD-10; Not Available [facility] 3 04:31:08 Disorder of eye region Completed 201905/08/2020 Problem Code: H57.89; Problem Code Type: ICD-10; Not Available [facility] 3 04:31:08 Disorder of skin and/or subcutaneous tissue Completed 201502/19/2016 Problem Code: L98.9; Problem Code Type: ICD-10; Not Available [facility] 3 04:31:08 Dyspnea Completed 201502/19/2016 Problem Code: R06.09; Problem Code Type: ICD-10; Not Available [facility] 3 04:31:09 Neck pain Completed 201409/10/2021 Problem Code: M54.2; Problem Code Type: ICD-10; Not Available [facility] 3 04:31:09 Hypertensive disorder Completed 201206/10/2023 Not Available [facility] 3 04:31:09 Visual disturbance Completed 201709/12/2019 Problem Code: H53.9; Problem Code Type: ICD-10; Not Available [facility] 3 04:31:09 Headache Completed 201709/12/2019 Problem Code: R51; Problem Code Type: ICD-10; Not Available [facility] 3 04:31:09 Exposure to communicable disease Completed 201905/08/2020 Problem Code: Z20.828; Problem Code Type: ICD-10; Not Available [facility] 3 04:31:10 Constipation Completed 201705/08/2020 Problem Code: K59.00; Problem Code Type: ICD-10; Not Available [facility] 3 04:31:10 Exposure to sting or bite by insect Completed 202112/08/2022 Not Available [facility] 3 04:31:10 Traumatic or non-traumatic injury Completed 201605/08/2020 Problem Code: T14.8; Problem Code Type: ICD-10; Not Available [facility] 3 04:31:10 Sciatica Completed 201809/10/2021 Problem Code: M54.30; Problem Code Type: ICD-10; Not Available [facility] 3 04:31:10 Bleeding from nose Completed 202203/30/2023 Problem Code: R04.0; Problem Code Type: ICD-10; Not Available [facility] 3 04:31:11 Low back pain Completed 202009/10/2021 Problem Code: M54.5; Problem Code Type: ICD-10; Not Available [facility] 3 04:31:11 Pain in left foot Completed 202203/30/2023 Problem Code: M79.672; Problem Code Type: ICD-10; Not Available [facility] 3 04:31:11 Dizziness and giddiness Completed 202203/30/2023 Problem Code: R42; Problem Code Type: ICD-10; Not Available [facility] 3 04:31:11 Pain of right shoulder joint Completed 201909/10/2021 Problem Code: M25.511; Problem Code Type: ICD-10; Not Available [facility] 3 04:31:11 Chest pain Completed 201412/08/2022 Problem Code: R07.89; Problem Code Type: ICD-10; Not Available [facility] 3 04:31:12 Fever Completed 202112/08/2022 Problem Code: R50.9; Problem Code Type: ICD-10; Not Available [facility] 3 04:31:12 Exposure to communicable disease Completed 201909/10/2021 Problem Code: Z20.9; Problem Code Type: ICD-10; Not Available [facility] 3 04:31:12 Coronary arteriosclero sis Completed 201306/10/2023 Not Available [facility] 3 04:31:13 Abnormal weight gain Completed 202203/30/2023 Problem Code: R63.5; Problem Code Type: ICD-10; Not Available [facility] 3 04:31:13 Streptococcal sore throat Active 2022 ROSALBA MCKEON APRN [address], [place], [address] , [facility] 4 14:32:58 Infection of tooth Active 2023 ROSALBA MCKEON APRN [address], [facility] [address] , [facility] 4 14:32:58 Oral infection Active 2023 ROSALBA MCKEON APRN [address], [facility] [address] , [facility] 4 14:32:58 Herpes zoster Active 2023 ROSALBA MCKEON APRN [address], [place], [address] , [facility] 4 14:32:58 Post-herpetic polyneuropath y Active 2023 ROSALBA MCKEON APRN [address], [place], [address] , [facility] 4 15:37:27 Itching of eye Active [address], [place], [address] , [facility] 4 11:33:48 Muscle spasm of cervical muscle of neck Active [address], [place], [address] , [facility] 4 16:37:40 Increased liver function Active 2023 ROSALBA MCKEON APRN [address], [facility] [place], [address] , [facility] 4 04:54:49 Nonulcer dyspepsia Active 2023 ROSALBA MCKEON APRN [address], [place], [address] , [facility] 4 08:26:01 Problem Notes None recorded. Procedures Surgical History None recorded. Imaging Results Imaging Date Name Status LastModified by Organization Details LastModified Time 08/31/2023 trans-thoracic echocardiogram (TTE) (PROC) completed nara [facility] Cardiology - Exercise Stress Test/Charan/Stress Echo Scheduling [address] , [place], [address], 08/31/2023 11:13:18 08/28/2023 trans-thoracic echocardiogram (TTE) (PROC) completed [email or web address] Information not available 09/04/2023 11:09:14 09/19/2023 ED visit note completed han [facility] [address] , [place], [address] 09/21/2023 15:46:33 Procedure Notes None recorded. Medical Equipment None Reported. Allergies Allergen ID Allergen Name Allergen Category Reaction Reaction Severity Criticality Documentation Date Start Date Code Code System Note Provider Name and Address Organization Details Recorded Time 06686 lisinopri l medicatio n cough mild Not available 07/24/20232013 71860 RxNorm cough Aller gyCod e: '3140 76'; Aller gyNam e: 'RAJIV NOPRI L'; Aller gyCon ceptT ype: 'RX Norm' ; Not Available [facility] 16:14:44 Medications Name Sig Start Date Stop [...] active Not Available Not Available Not Avai labkarely Prilosec OTC 20 mg tablet,del ayed release [...] Available Vitals Date Recorded Body height Body temperature Oxygen saturation Oxygen saturation in Arterial blood by Pulse oximetry Heart rate Body mass index (BMI) Body weight Systolic blood pressure Diastolic blood pressure Provider Name and Address Organization Details Last Updated DateTime 4 159.26 cm 96.9 [degF] 98 % 98 % 74 /min 23.2 kg/m2 54458.2 9 g 138 mm[Hg] 70 mm[Hg] Nancy Serra RN [facility] 4 11:22:16 Date Recorded Body height Body mass index (BMI) Body weight Respiratory rate Oxygen saturation Oxygen saturation in Arterial blood by Pulse oximetry Heart rate Body temperature Systolic blood pressure Diastolic blood pressure Systolic blood pressure Diastolic blood pressure Provider Name and Address Organization Details Last Updated DateTime 4 159.26 cm 23.1 kg/m2 53976.4 2 g 19 /min 99 % 99 % 65 /min 97.2 [degF] 193 mm[Hg] 100 mm[Hg] 188 mm[Hg] 96 mm[Hg] Alejandra Mcbride MA [facility] 4 10:52:46 Date Recorded Body height Body temperature Oxygen saturation Oxygen saturation in Arterial blood by Pulse oximetry Heart rate Respiratory rate Body mass index (BMI) Body weight Systolic blood pressure Diastolic blood pressure Provider Name and Address Organization Details Last Updated DateTime 4 159.26 cm 98.1 [degF] 98 % 98 % 77 /min 18 /min 22.4 kg/m2 57352.0 5 g 155 mm[Hg] 72 mm[Hg] Diane Bartholomew [facility] 4 15:24:22 Date Recorded Body height Body mass index (BMI) Body weight Heart rate Systolic blood pressure Diastolic blood pressure Provider Name and Address Organization Details Last Updated DateTime 4 159.26 cm 22.3 kg/m2 43543.6 1 g 64 /min 128 mm[Hg] 82 mm[Hg] Sujatha Massey RN [facility] 4 08:18:55 Social History Question Answer Notes LastModified by Organizat ion Details LastModified Time Tobacco Smoking Status Former Smoker JAMAR MEJIA RN null, [facility] 08/21/2023 11:02:00 When Did You Quit Smoking? 15+yearssinc [email or web address] Information not available 08/21/2023 What Was The Date Of Your Most Recent Tobacco Screening? 01/15/2024 [email or web address] Information not available 01/15/2024 Has Tobacco Cessation Counseling Been Provided? No Information not available 08/21/2023 Do You Or Have You Ever Used Any Other Forms Of Tobacco Or Nicotine? No [email or web address] Information not available 08/21/2023 Sex: Female Functional [...] Recorded Time Tdap 07/21/2019 completed Not Available [facility] 06:27:29 Td(adult) unspecified formulation 01/13/2005 completed Not Available [facility] 07/24/2023 06:27:29 COVID-19, mRNA, LNP-S, PF, 100 mcg/0.5mL dose or 50 mcg/0.25mL dose 07/13/2021 completed Not Available [facility] 07/24/20 06:27:29 COVID-19 vaccine, vector-nr, rS-Ad26, PF, 0.5 mL 11/30/2020 completed Not Available [facility] 07/24/2023 06:27:30 Past Encounters Encounter ID Performer Location Encounter Start Date Encounter Closed Date Diagnosis/Indication Diagnosis SNOMED-CT Code [id number] DRAKE KHANNA MD [address] [address] 08/21/2023 10:50:46 08/21/2023 11:29:57 Sore throat 088165834 Streptococ lewis sore throat 03479054 [id number] DIANE CERVANTES PA-C [address] [address] 09/08/2023 13:05:14 09/08/2023 13:58:09 Sore throat 944759449 [id number] CHLOÉ ERNST [address] [address] 09/17/2023 09:23:33 09/17/2023 10:07:58 Sore throat 006265548 Infection of tooth 12676 2424 [id number] MICKY MCCAIN PA-C [address] [address] 09/19/2023 11:11:28 09/19/2023 14:10:32 Herpes zoster 5601518 Essential hypertension 59326528 [id number] CHLOÉ ERNST [address] [address] 09/30/2023 11:15:19 09/30/2023 12:01:24 Herpes zoster 3544134 [id number] ROSALBA MCKEON APRN [address] [address] 10/02/2023 15:14:28 10/02/2023 16:03:59 Post-herpetic polyneuropathy 52642431 [id number] MICKY MCCAIN PA-C [address] [address] 10/17/2023 10:02:11 10/17/2023 11:45:47 Itching of eye 20947431 Essential hypertension 58943232 [id number] [address] [place] [address] 01/15/2024 15:02:51 01/15/2024 16:57:40 Sore throat 109854031 Muscle spa sm of cervical muscle of neck 855820753968 [id number] [facility] [address] [place] [address] 04/04/2024 08:05:40 04/04/2024 08:58:24 Atherosclerosis of coronary artery without angina pectoris 993105294739410 Nicotine dependence 5629 4008 Increased liver function 93688639 Nonulcer dyspepsia 47519 07 Health Concerns Section Related Observation LastModified by Organization Detai ls LastModified Time None Recorded Concern Status LastModified by Organization Details LastModified Time None Recorded Advance Directives Directive None Recorded Payers Encounter Date Sequence Insurance Name Policy Number Policy Horan Covered Member ID Horan Member ID Guarantor Name 09/30/2023 1 [employer] [place] [employer] ([employer]) Isa Ro [id number] Isa Ro 10/02/2023 1 [employer] [place] ([employer]) Isa Leungar [id number] Isa Joseph Ro 10/17/2023 1 [employer] [place] [employer] ([employer]) Isa Ro [id number] Isa Ro 01/15/2024 1 [employer] [place] ([employer]) Isa Joseph Leungar [id number] Isa Joseph Ro 04/04/2024 1 [employer] [place] ([employer]) Isajoseph Ro [id number] Isa Ro Notes Date Note Type Note Provider Name and Address Organization Details Recorded Time 09/30/2023 text/html HPI Notes: Diagn osed with [...] and is regularly taking advil and acetaminophen. CHLOÉ ERNST, ACCOUNT CLASSIFICATION CLERK [address], [place], [address], [facility]. 10/01/2023 11:07:31 10/02/2023 text/html HPI Notes: Is he re for complaints of shingles concern. -Had sore throat 08/21/23, treated with amoxicillin. -She called on 09/02 wondering about a toxic smell, having respiratory issues. Was recommended to call [facility] to discuss testing. -Called back on 09/08, [...] seen. - 09/24/23, went to ENT in [facility]; was told it was shingles, they [...] of the face. 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 Shingles had dried up but was having pain. Recommended to take gabapentin, APAP, advil. Recommended OV to be seen. -Seen 09/30/23, treated with gabapentin for this. Question if had TN or if this was post herpes pain. -Called 10/02/23, states shingles moved to inside her throat, wants a visit. Offered apt for today. 10.02.2023. Has a sore throat on the [...] for both. This was on 09/19/23 at [facility]. + ear pain, left ear. No drainage or discharge from ear. States does not have any sores in her ear. Denies blurred vision, double vision. had 1 sore near the bottom of the left eye, went to the eye doctor, was told not in the pupil; [facility], 09/21/23. Was not provided any medications. States has sore to her chin, that is [...] it is hard to tell. ROSALBA MCKEON, BAKERY MANAGER [address], [place], [address], [facility]. 10/02/2023 15:54:43 10/17/2023 text/html HPI Notes: Isa [...] any other environmental exposures. [address], [place], [address], [facility]. 10/17/2023 12:14:34 01/15/2024 text/html HPI Notes: Isa [...] when she is sitting, better with movement. MICKY MCCAIN PA-C [address], [place], [address], [facility]. 01/15/2024 19:07:29 04/04/2024 text/html HPI Notes: Is he re for follow-up hospital stay. Was admitted to [facility] on 03/19/22.4 Discharged on 03/22/24 Discharge dx was acute ST elevation [place] due to occlusion of left anterior descending [...] 80mg daily CoQ10 supplementation Was referred to [facility] cardiology. has [facility] cardiology appt scheduled. She was having symptoms with coreg, this was stopped by oncall provider and switched back to metoprolol succ. BP had been 100/55 with coreg. She does admit that previously using metoprolol and her HR never raised up with activity and caused fatigue and had stopped. ROSALBA MCKEON, BAKERY MANAGER [address], [place], [address], [facility]. 04/04/2024 09:58:16 OBGyn Episode No OBEpisode recorded.
--- OUTSIDE RECORDS SUMMARY | 2024-04-06 11:15 | XMS_ITS | Continuity of Care Document ---
Author Organization [facility] [employer] [facility], [facility] Address [address] [place] [address] [address] [place] [address] Assessment No assessment recorded. Plan of Treatment Reminders Order Date Submit Date Provider Last Modified By Organization Details Last Modified Time Details Appointments Nurse Visit 2023 08:00A Donald Kimbrough Nursing Staff Not available Not available Not available Follow Up 2023 09:30A Donald MCKEON Not available Not available Not available Lab rapid strep group A, throat 2023 024 [facility], [address] [place] [address], [address], [place], [address], 01/15/2024 16:39:11 culture, throat 2023 024 [facility] (Registration ), [address] [place] [address] , [place], [address], 01/16/2024 12:10:34 Referral physical therapist referral 2023 024 JOSELUIS [facility], [address] , [place], [address], 01/25/2024 15:03:28 Procedures None recorded. Surgeries None recorded. Imaging None recorded. Medication Orders cyclobenz aprine 10 mg tablet 2023 024 JOSELUIS [id number], [address] [place], [address], 04/04/2024 08:15:08 Patient TargetsNo targets recorded. Patient Instructions Encounter Date Encounter Id Patient Instructions Last Modified By Organization Details Last Modified Time 01/15/2024 [id number] 1. Rapid strep i s negative. Throat [...] to the physical therapist office for Kavon Van at the [facility] location. If they cannot get you in any want referral elsewhere please let us know when we call you on Thursday to go over throat culture. 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 Car Record Clerk Referral fo r Herpes zoster Referring Physician: Altagracia Delcid [facility], Encounter Date: 09/19/2023 Business Solutions Director Referral for Herpes zoster Referring Physician: Altagracia Delcid [facility], Encounter Date: 09/19/2023 Physical Therapist Referral for Muscle spasm of cervical muscle of neck Referring Physician: Altagracia Delcid [facility], Encounter Date: 01/15/2024 Results Created Date Observation Date Name Description Value Unit Range Abnormal Flag LastModifiedBy Organization Detail LastModifiedTime 01/15/20 24 01/15/2024 rapid strep group A, throa t Strep negati ve Not Available [address], [place], [address], 01/15/2024 15:19:00 Result Notes None recorded. Problems Name Status Onset Date Resolution Date Notes Provider Name and Address Organization Details Recorded Time Hypothyroidis m Active 201205/08/2020 - Comments only - Rosalba Mckeon GROUP PRODUCT MANAGER - without medication. check next in January 02. Problem Code: E03.9; Problem Code Type: ICD-10; [address], [place], [address] , [facility] 4 14:32:58 Essential hypertension Active 201205/08/2020 - Comments only - Rosalba Mckeon GROUP PRODUCT MANAGER - no desires to take her medication on a daily basis. Encouraged daily use of medication and check her BP routinely. Check BMP January 02. Problem Code: I10; Problem Code Type: ICD-10; [address], [place], [address] , [facility] 14:32:58 Atheroscleros is of coronary artery without angina pectoris Active 201305/08/2020 - Comments only - Rosalba Mckeon GROUP PRODUCT MANAGER - No desires for statin. Encouraged daily use of her losartan. Continue ASA. encouraged to FU with cardiology. Problem Code: I25.10; Problem Code Type: ICD-10; [address], [place], [address] , [facility] 4 14:32:58 Hyperlipidemi a Active 201305/08/2020 - Comments only - Rosalba Mckeon GROUP PRODUCT MANAGER - no desires for statin. Problem Code: E78.5; Problem Code Type: ICD-10; [address], [place], [address] , [facility] 4 14:32:58 Acute non-ST segment elevation myocardial infarction Active 2013 Problem Code: I21.4; Problem Code Type: ICD-10; [address], [place], [address] , [facility] 4 14:32:58 Gastroesophag eal reflux disease without esophagitis Active 201505/08/2020 - Comments only - Rosalba Mckeon GROUP PRODUCT MANAGER - with duodenitis and dysphagia. Encouraged daily PPI, she is not interested. Continue with diet mgmt. Problem Code: K21.9; Problem Code Type: ICD-10; [address], [place], [address] , [facility] 4 14:32:58 Exercise induced bronchospasm Active 201505/08/2020 - Comments only - Rosalba Mckeon GROUP PRODUCT MANAGER - no complaints of. monitor for now. Problem Code: J45.990; Problem Code Type: ICD-10; [address], [facility] [address] , [facility] 4 14:32:58 Dysphagia Active 201509/05/2016 - Comments only - Isa Estrada MD - Patient is having worsening dyspagia and I will refer her to GI for an EGD to make sure there is not significant pathology. Problem Code: R13.10; Problem Code Type: ICD-10; [address], [place], [address] , [facility] 4 14:32:58 Adult health examination Active 2015 Problem Code: Z00.00; Problem Code Type: ICD-10; [address], [place], [address] , [facility] 4 14:32:58 Pain of right knee joint Completed 201602/16/2017 01/16/2017 - Comments only - Bell Dumas ASSAYER - - I do not think it [...] M25.561; Problem Code Type: ICD-10; Not Available [facility] 3 04:31:04 Duodenitis Active 2017 Problem Code: K29.80; Problem Code Type: ICD-10; [address], [facility] [address] , [facility] 4 14:32:58 Fatigue Active 201707/26/2021 - Comments only - Rosalba Mckeon APRN - differentials include lyme disease, thyroid in origin, anemia. Check CBCD, iron stores, ferritin, TSH with R, tick and lyme panel. Problem Code: R53.83; Problem Code Type: ICD-10; [address], [facility] [address] , [facility] 4 14:32:58 Migraine with aura Active 2018 Problem Code: G43.109; Problem Code Type: ICD-10; [address], [facility] [address] , [facility] 4 14:32:58 Chronic sinusitis Completed 201808/26/2019 Problem Code: J32.9; Problem Code Type: ICD-10; Not Available [facility] 3 04:31:05 Eustachian tube disorder Completed 201809/14/2019 Problem Code: H69.90; Problem Code Type: ICD-10; Not Available [facility] 3 04:31:05 Screening for malignant neoplasm of breast Active 2019 Problem Code: Z12.39; Problem Code Type: ICD-10; [address], [facility] [address] , [facility] 4 14:32:58 Angina pectoris Active 202006/14/2021 - Comments only - Isa Estrada MD - Isa Xochitlannmarie comes in today with chest pain that [...] ICD-10; ROSALBA MCKEON APRN [address], [place], [address] , [facility] 14:32:58 Carotid artery stenosis Active 202007/26/2021 - [...] upset. ROSALBA MCKEON APRN [address], [place], [address] , [facility]. 4 14:32:58 Seasonal allergic rhinitis Active 2020 Problem Code: J30.2; Problem Code Type: ICD-10; [address], [address] 4 14:32:58 Gestational diabetes mellitus Active 2020 Problem Code: O24.419; Problem Code Type: ICD-10; [address], [address] 4 14:32:58 Family history of breast cancer Active 2020 Problem Code: Z80.3; Problem Code Type: ICD-10; [address], [address] 4 14:32:58 Nicotine dependence Active 2020 Problem Code: Z87.891; Problem Code Type: ICD-10; [address], [address] 4 14:32:58 Genuine stress incontinence Active 2020 Problem Code: N39.3; Problem Code Type: ICD-10; [address], [address] 4 14:32:58 Cramp in lower limb associated with sleep Active 2020 Problem Code: G47.62; Problem Code Type: ICD-10; [address], [address] 4 14:32:58 Raynaud's disease Active 2020 Problem Code: I73.00; Problem Code Type: ICD-10; [address], [address] 4 14:32:58 Aphasia Active 2020 Problem Code: R47.01; Problem Code Type: ICD-10; [address], [address] 4 14:32:58 Atypical squamous cells of undetermined significance on cervical Papanicolaou smear Active 2021 Problem Code: R87.610; Problem Code Type: ICD-10; [address], [address] 4 14:32:58 Cough Active 2021 Problem Code: R05.8; Problem Code Type: ICD-10; [address], [address] 4 14:32:58 Family history of malignant neoplasm of digestive organ Active 2022 Problem Code: Z80.0; Problem Code Type: ICD-10; [address], [facility] [address] [place] [address] 4 14:32:58 Screening for malignant neoplasm of colon Active 2022 Problem Code: Z12.11; Problem Code Type: ICD-10; [address], [facility] [address] [place] [address] 4 14:32:58 Abdominal pain Active 2022 Problem Code: R10.9; Problem Code Type: ICD-10; [address], [facility] [address] [place] [address] 4 14:32:58 Altered bowel function Active 2022 Problem Code: R19.4; Problem Code Type: ICD-10; [address], [facility] [address] [place] [address]. 4 14:32:59 Acute subendocardia l infarction Completed 201306/10/2023 Problem Code: 410.72; Problem Code Type: ICD-9; Not Available [facility] 3 04:31:08 Posttraumatic headache Completed 201809/10/2021 Problem Code: G44.309; Problem Code Type: ICD-10; Not Available [facility] 3 04:31:08 Disorder of eye region Completed 201905/08/2020 Problem Code: H57.89; Problem Code Type: ICD-10; Not Available [facility] 3 04:31:08 Disorder of skin and/or subcutaneous tissue Completed 201502/19/2016 Problem Code: L98.9; Problem Code Type: ICD-10; Not Available [facility] 3 04:31:08 Dyspnea Completed 201502/19/2016 Problem Code: R06.09; Problem Code Type: ICD-10; Not Available [facility] 3 04:31:09 Neck pain Completed 201409/10/2021 Problem Code: M54.2; Problem Code Type: ICD-10; Not Available [facility] 3 04:31:09 Hypertensive disorder Completed 201206/10/2023 Not Available [facility] 3 04:31:09 Visual disturbance Completed 201709/12/2019 Problem Code: H53.9; Problem Code Type: ICD-10; Not Available [facility] 3 04:31:09 Headache Completed 201709/12/2019 Problem Code: R51; Problem Code Type: ICD-10; Not Available [facility] 3 04:31:09 Exposure to communicable disease Completed 201905/08/2020 Problem Code: Z20.828; Problem Code Type: ICD-10; Not Available [facility] 3 04:31:10 Constipation Completed 201705/08/2020 Problem Code: K59.00; Problem Code Type: ICD-10; Not Available [facility] 3 04:31:10 Exposure to sting or bite by insect Completed 202112/08/2022 Not Available [facility] 3 04:31:10 Traumatic or non-traumatic injury Completed 201605/08/2020 Problem Code: T14.8; Problem Code Type: ICD-10; Not Available [facility] 3 04:31:10 Sciatica Completed 201809/10/2021 Problem Code: M54.30; Problem Code Type: ICD-10; Not Available [facility] 3 04:31:10 Bleeding from nose Completed 202203/30/2023 Problem Code: R04.0; Problem Code Type: ICD-10; Not Available [facility] 3 04:31:11 Low back pain Completed 202009/10/2021 Problem Code: M54.5; Problem Code Type: ICD-10; Not Available [facility] 3 04:31:11 Pain in left foot Completed 202203/30/2023 Problem Code: M79.672; Problem Code Type: ICD-10; Not Available [facility] 3 04:31:11 Dizziness and giddiness Completed 202203/30/2023 Problem Code: R42; Problem Code Type: ICD-10; Not Available [facility] 3 04:31:11 Pain of right shoulder joint Completed 201909/10/2021 Problem Code: M25.511; Problem Code Type: ICD-10; Not Available [facility] 3 04:31:11 Chest pain Completed 201412/08/2022 Problem Code: R07.89; Problem Code Type: ICD-10; Not Available [facility] 3 04:31:12 Fever Completed 202112/08/2022 Problem Code: R50.9; Problem Code Type: ICD-10; Not Available [facility] 3 04:31:12 Exposure to communicable disease Completed 201909/10/2021 Problem Code: Z20.9; Problem Code Type: ICD-10; Not Available [facility] 3 04:31:12 Coronary arteriosclero sis Completed 201306/10/2023 Not Available [facility] 3 04:31:13 Abnormal weight gain Completed 202203/30/2023 Problem Code: R63.5; Problem Code Type: ICD-10; Not Available [facility] 3 04:31:13 Streptococcal sore throat Active 2022 ROSALBA MCKEON APRN [address], [place] [address] , [facility] 4 14:32:58 Infection of tooth Active 2023 ROSALBA MCKEON APRN [address], [place] [address] , [facility] 4 14:32:58 Oral infection Active 2023 ROSALBA MCKEON APRN [address], [place] [address] , [facility] 4 14:32:58 Herpes zoster Active [address], [place] [address] , [facility] 4 14:32:58 Post-herpetic polyneuropath y Active [address], [place] [address] , [facility] 4 15:37:27 Itching of eye Active [address], [place] [address] , [facility] 4 11:33:48 Muscle spasm of cervical muscle of neck Active [address], [place] [address] , [facility] 4 16:37:40 Increased liver function Active 2023 ROSALBA MCKEON APRN [address], [facility] [address] , [facility] 4 04:54:49 Nonulcer dyspepsia Active 2023 ROSALBA MCKEON APRN [address], [facility] [address] , [facility] 4 08:26:01 Problem Notes None recorded. Medical Equipment None Reported. Allergies Allergen ID Allergen Name Allergen Category Reaction Reaction Severity Criticality Documentation Date Start Date Code Code System Note Provider Name and Address Organization Details Recorded Time lisinopri l medicatio n cough mild Not available 07/24/20232013 99605 RxNorm cough Aller gyCod e: '3140 76'; Aller gyNam e: 'RAJIV NOPRI L'; Aller gyCon ceptT ype: 'RX Norm' ; Not Available [facility] 3 16:14:44 Medications Name Sig Start Date [...] 2023 active Not Available Not Available Not Jorge duong Prilosec OTC 20 mg tablet,del ayed release [...] and Address Organization Details Last Updated DateTime 159.26 cm 98.1 [degF] 98 % 98 % 77 /min 18 /min 22.4 kg/m2 31890.0 5 g 155 mm[Hg] 72 mm[Hg] Diane Blacketer [facility] 15:24:22 Social History Question Answer Notes LastModified by Organizat ion Details LastModified Time Tobacco Smoking Status Former Smoker JAMAR MEJIA RN null, [facility] 08/21/2023 11:02:00 When Did You Quit Smoking? 16+yearssinc elastcigaret te [email or web address] Information not available 08/21/2023 What Was The Date Of Your Most Recent Tobacco Screening? 01/15/2024 [email or web address] Information not available 01/15/2024 Has Tobacco Cessation Counseling Been Provided? No [email or web address] Information not available 08/21/2023 Do You Or Have You Ever Used Any Other Forms Of Tobacco Or Nicotine? No [email or web address] Information not available 08/21/2023 Sex: Female Functional [...] Recorded Time Tdap 07/21/2019 completed Not Available [facility] 06:27:29 Td(adult) unspecified formulation 01/13/2005 completed Not Available [facility] 07/24/2023 06:27:29 COVID-19, mRNA, LNP-S, PF, 100 mcg/0.5mL dose or 50 mcg/0.25mL dose 07/13/2021 completed Not Available [facility] 07/24/20 06:27:29 COVID-19 vaccine, vector-nr, rS-Ad26, PF, 0.5 mL 11/30/2020 completed Not Available [facility] 07/24/2023 06:27:30 Past Encounters Encounter ID Performer Location Encounter Start Date Encounter Closed Date Diagnosis/Indication Diagnosis SNOMED-CT Code [id number] [address] [place] [address] 01/15/2024 15:02:51 01/15/2024 16:57:40 Sore throat 396930449 Muscle spa sm of cervical muscle of neck [id number] Health Concerns Section Related Observation LastModified by Organization Detai ls LastModified Time None Recorded Concern Status LastModified by Organization Details LastModified Time None Recorded Payers Encounter Date Sequence Insurance Name Policy Number Policy Horan Covered Member ID Horan Member ID Guarantor Name 01/15/2024 1 [facility] (MEDICAID) Isa Vera Darellsoledadannmarie [id number] Isa Vera Jayjay Notes Date Note Type Note Provider Name and Address Organization Details Recorded Time 01/15/2024 text/html HPI Notes: Isa is a [...] when she is sitting, better with movement. ALTAGRACIA DELCID PA-C [address], [place], [address], [facility]. 01/15/2024 19:07:29 OBGyn Episode No OBEpisode recorded.
--- OUTSIDE RECORDS SUMMARY | 2024-04-06 11:15 | XMS_ITS | Encounter Summary ---
Author Organization [facility] Address [address] [place] [address] Care Team Providers Care Lay Up Operator Name Role Phone Pretty Avery MD Primary Care Provider [phone] Encounter Details Date Type Department Care Team (Latest Contact Info) Description 04/08/2018 9:44 EDT - 04/08/2018 23:59 EDT Hospital Encounter [facility] [address] [place] [address] Unknown, Provider, Discharge Disposition: Home or Self [...] Code Departure Means Destination Home or Self Skilled Nursing documented in this encounter Plan of Treatment Not on file documented as of this encounter Visit Diagnoses Not on filedocumented in this encounter Care Teams Lay Up Operator Relationship Specialty Start Date End Date Pretty Avery MD [address] [place] [address] PCP - General 06/05/10 documented as of this encounter
--- OUTSIDE RECORDS SUMMARY | 2024-04-06 11:15 | XMS_ITS | Encounter Summary ---
Author Organization [facility] Address [address] [place] [address] Care Team Providers Care Body Worker Name Role Phone Pretty Avery MD Primary Care Provider [phone] Encounter Details Date Type Department Care Team (Late st Contact Info) Description 12/15/2014 9:30 EDT - 12/15/2014 15:15 EDT Hospital Encounter [facility] Cardiovascular Unit [address] [place] [address] Manpreet Naqvi MD [address] [place] [address] [phone] Dilip Mahajan MD [address] [facility] [address] [place] [phone] Discharge Disposition: Home or Self Care Social [...] was performed by Dr. Mahajan. Phone # [phone] You have had a Cardiovascular Catheterization performed [...] 12/13/14. Will contact pt today to reschedule. geophysical laboratory director notified. 12/13/14 10:00, pt rescheduled to Thursday12/15/14. [...] JAHAIRA. * Michaelle Ellsworth, RN - 12/12/2014 9450 EDT Precardiac Cath Nursing Checklist Recent Labs: Lab Results Component Value Date BUN 10 04/01/2014 CREATININE 0.69 04/01/2014 HGB 12.6 04/01/2014 CALCGFR >60 04/01/2014 Hgt: Height: 157.5 cm (62) Wgt: Weight : 54.205 kg (119 lb 8 oz) Allergies: No Known Allergies Local Pharmacy [phone] [address] Cardiac History: Stress Test? No Reason for Cath: chest pain, hx of cad Anginal equivalent:: Cardiac Procedures: Previous PCI done at: [facility] Stent Type/Size: 03/31/14 2.5 x 12 resolute stent prox lad Cardiac surgery: no Medical/Surgical History : Patient has a past medical history of HTN (hypertension); HLD (hyperlipidemia); Chest pain; CAD (coronary artery disease); Family history of heart disease; and Hx of non-ST elevation myocardial infarction (NSTEMI). Patient has past surgical history that includes section. Chronic Risk Factors: HTN, HLD, Previous [place] and Previous PCI Smoking and Alcohol intake: [...] instructed to register on the 3rd floor [facility]. Transportation Issues: Patient/family instructed that they will need a designated dedicated intermodal truck driver if they are discharged on the dayof the procedure. Medications: Medication list: Patient/family instructed to bring medication list with them on the day of the procedure. Anticoagulants/Antiplatelets: Takes brilinta bid, instructed to take aspirin 81 mg on 12/14/14-12/15/14. Anti-Anginal meds: none Michaelle Ellsworth RN documented in this encounter H&P Notes * Chun Nielsen MD - 12/15/2014 1044 EDT Measurement Technician H&P PCP: Pretty Avery MD Superintendent Greens: Date of Service: 12/15/2014 Chief Complaint: angina [...] The angina has been stable. Referred for [facility] to further evaluate. 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 Smoking status: [...] consent has been obtained. Chun Nielsen MD Measurement Technician Pager [phone] documented in this encounter Procedure Notes * [...] artery Procedure: She was brought to [facility] Cardiac Catheterization Laboratory for the [...] 4 weeks Dilip Mahajan Jr., MD PagerNumber: [phone] 12/15/2014 11:43 documented in this encounter Plan [...] EST) 09/26/2015 11:4 2 EST Scan 2 Acid Purifier PROCEDURE/MINOR SHAYY GICAL ORDERABLES * INVASIVE CARDIOLOGY REPORT-SCANNED (12/19/2014 8:53 EDT) 12/19/2014 8:53 EDT Scan 2 Acid Purifier PROCEDURE/MINOR SHAYY GICAL ORDERABLES * ECG REPORT - SCANNED (12/19/2014 8:17 EDT) 12/19/2014 8:17 EDT Scan 2 Acid Purifier PROCEDURE/MINOR SHAYY GICAL ORDERABLES * LEFT HEART CATH (12/15/2014 11:26 EDT) Anatomical Region Laterality Modality Other 12/15/2014 11:2 6 EDT Narrative 12/18/2014 8:37 EDT Cardiology [address] [place] [address] Catheterization Laboratory Study Patient: Isa Ro ? Study Date: ?12/15/2014 ? Accession #: ? [id number] : ? 1965 Referring Physician: Pretty Avery [...] Right radial artery access. A 6 FR/10 [employer] Sheath Gueydan SS .021 sheath was ?? advanced into [...] Dilip Mahajan Jr., MD - 12/18/[address] [place] [address] Catheterization Laboratory Study Patient: Isa Ro Study [...] DATA: Study status: Cardiac cath: elective. [facility] Sex: female. Patient is 49yr old. [...] artery access. A 6 FR/10 [employer] Sheath Gueydan SS .021sheath was advanced into the vessel. [...] 10:12 EDT) 12/15/2014 10:1 2 EDT Narrative [facility] EKG - 12/15/2014 15:09 EDT ? [facility] ? Test Date: ?2014-12-15 Pat Name: ? ISA RO ?Department: ?? CVU ? Room: ? CVU37 Gender: ? 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 [id number] : ?1965 ? Requested By: [facility] A Order Number: [id number] ? Reading MD: ?? JOHNNY PATEL MD ? Measurements Intervals ?[place] ? Rate: ? 64 ? P: ?70 CO: ? 155 ?QRS: ?48 QRSD: ? 82 [...] Note Johnny Patel MD - 12/15/2014 [facility] Test Date: 2014-12-15 Pat Name: ISA RO Department: CVU Room: [facility] Gender: F Piercing Machine Operator: [id number] : 1965 Requested By: RUTH Vera Order Number: [id number] Reading MD: JOHNNY VICTOR Measurements Intervals [place] Rate: 64 P: 70 CO: 155 QRS: 48 QRSD: 82 T: 72 QT: 434 QTc: 450 Interpretive Statements SINUS RHYTHM NONSPECIFIC ST & T-WAVE ABNORMALITY Compared to ECG 03/31/2014 13:30:36 Sinus rhythm now present T-wave abnormality now present I reviewed the tracing and have either agreed or edited the findings inthis report. Electronically Signed On 12-15-14 15:09:46 EDT by CHARBEL MACK. Abiodun Velez MD CARDIAC ECG ORDER JAMI [facility] EKG * PROTIME (12/15/2014 10:04 EDT) [facility] Pro Time 10.3 9.5 - 12.3 secs 12/15/2014 10:37 [facility] I.N.R. 1.0 0.9 - 1.1 Ratio 12/15/2014 10:37 [facility] Comment: Moderate Intensity Coumadin INR = 2.0-3.0 Adjustments in anticoagulant therapy dose should be based upon the INR and NOT the Pro Time. Blood specimen (specimen) BLOOD SPECIMEN / Unknown 12/15/2014 10:04 EDT 12/15/2014 10:21 EDT Abiodun Velez MD HEMATOLOGY & PF4 ORDERABLES [facility] [address] [place] [address] * HEMAGRAM (12/15/2014 10:04 EDT) WBC 6.17 4.0 - 12.4 K/cmm 12/15/2014 10:28 [facility] RBC 4.76 3.86 - 5.04 M/cmm 12/15/2014 10:28 [facility] Hemoglobin 13.2 11.6 - 15.2 gm/dl 12/15/2014 10:28 [facility] HCT 40.0 34.9 - 44.4 % 12/15/2014 10:28 [facility] MCV 84 81 - 98 fl 12/15/2014 10:28 [facility] MCH 27.8 26.7 - 33.3 pg 12/15/2014 10:28 [facility] MCHC 33.1 32.1 - 35.9 gm/dl 12/15/2014 10:28 [facility] RDW-CV 13.7 11.7 - 14.6 % 12/15/2014 10:28 [facility] RDW-SD 41.6 37.6 - 50.3 fl 12/15/2014 10:28 [facility] PLT 245 141 - 320 K/cmm 12/15/2014 10:28 [facility] MPV 8.0 7.5 - 11.2 fl 12/15/2014 10:28 EDT [facility] Blood specimen (specimen) BLOOD SPECIMEN / Unknown 12/15/2014 10:04 EDT 12/15/2014 10:21 EDT Abiodun Velez MD HEMATOLOGY & PF4 ORDERABLES Performing Organization Address City/[facility]/ZIP Co de Phone Number [facility] [address] [place] [address] * ELECTROLYTES (12/15/2014 10:04 EDT) Sodium 141 136 - 145 mEq/L 12/15/2014 10:45 EDT [facility] Potassium 4.3 3.5 - 5.0 mEq/L 12/15/2014 10:45 EDT [facility] Chloride 103 96 - 110 mEq/L 12/15/2014 10:45 EDT [facility] CO2 28 24 - 32 mEq/L 12/15/2014 10:45 EDT [facility] Blood specimen (specimen) BLOOD SPECIMEN / Unknown 12/15/2014 10:04 EDT 12/15/2014 10:21 EDT Abiodun Velez MD CHEMISTRY & BLOOD GAS ORDERABLES Performing Organization Address [facility] Co de Phone Number [facility] [address] [place] [address] * CREATININE (12/15/2014 10:04 EDT) Creatinine 0.78 0.52 - 1.04 mg/dl 12/15/2014 10:45 EDT [facility] GFR, Calculated >60 >60 ml/min/1.7 3m2 12/15/2014 10:45 EDT [facility] Blood specimen (specimen) BLOOD SPECIMEN / Unknown 12/15/2014 10:04 EDT 12/15/2014 10:21 EDT Abiodun Velez MD CHEMISTRY & BLOOD GAS ORDERABLES [facility] [address] [place] [address] * BUN (12/15/2014 10:04 EDT) BUN 16 10 - 26 mg/dl 12/15/2014 10:45 EDT [facility] Blood specimen (specimen) BLOOD SPECIMEN / Unknown 12/15/2014 10:04 EDT 12/15/2014 10:21 EDT Abiodun Velez MD CHEMISTRY & BLOOD GAS ORDERABLES [facility] [address] [place] [address] documented in this encounter Visit Diagnoses Not [...] 12/15/2014 documented in this encounter Care Teams Body Worker Relationship Specialty Start Date End Date Pretty Avery MD [address] [place] [address] PCP - General 06/05/10 documented as of this encounter
--- OUTSIDE RECORDS SUMMARY | 2024-04-06 11:15 | XMS_ITS | Encounter Summary ---
Author Organization [facility] Address [address] [place] [address] Care Team Providers Care Drafting Detailer Name Role Phone Pretty Avery MD Primary Care Provider [phone] Encounter Details Date Type Department Care Team (Latest Contact Info) Description 12/05/2015 12:19 EDT - 12/05/2015 23:59 EDT Hospital Encounter [address] [address] Unknown, Provider, Discharge Disposition: Home or Self [...] Code Departure Means Destination Home or Self Fdc documented in this encounter Plan of Treatment Not on file documented as of this encounter Visit Diagnoses Not on filedocumented in this encounter Care Teams Drafting Detailer Relationship Specialty Start Date End Date Pretty Avery MD [address] [place] [address] PCP - General 06/05/10 documented as of this encounter
--- OUTSIDE RECORDS SUMMARY | 2024-04-06 11:15 | XMS_ITS | Encounter Summary ---
Author Organization [facility] Address [address] [place] [address] Care Team Providers Care Quoter Name Role Phone Pretty Avery MD Primary Care Provider [phone] Reason for Referral * Consult (Routine) - Closed Specialty Diagnoses / Procedures Referred By Contac t Referred To Contact Diagnoses NSTEMI (non-ST elevated myocardial infarction) ([facility]) S/P coronary artery stent placement Yesy Manuel NP [address] [place] [address] Alex Soto MD [address] [place] [address] Referral ID Status Reason Start Date Expiration Date V isits Requested Visits Authorized [id number] Closed Specialty Services Required 03/31/2014 1 1 Question Answer Reason for Request: post NSTEMI post PCI, CAD Scheduling Comments (optional ? describe specific scheduling needs if applicable): 1 month Expected Discharge Date (Inpatient Only): 04/01/2014 Comments Please schedule in [facility] cardiology clinic with Dr Alex Soto or next available advertising designer at that clinic. Office in [place] [phone]; cardiology clinic in [facility] [phone] * Consult (Routine) - Closed Specialty Diagnoses / Procedures Referred By Contac t Referred To Contact Cardiac Rehabilitation Diagnoses NSTEMI (non-ST elevated myocardial infarction) ([facility]) S/P coronary artery stent placement Yesy Manuel NP [address] [facility] [address] [place] [address] Referral ID Status Reason Start Date Expiration Date V isits Requested Visits Authorized [id number] Closed Specialty Services Required 03/31/2014 1 1 Question Answer Reason for Request: post NSTEMI, post pci, CAD Scheduling Comments (optional ? describe specific scheduling needs if applicable): 1 week Expected Discharge Date (Inpatient Only): 04/01/2014 Comments [address] refer to 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 Her EKG showed non-specific ST changes and trops elevated at 0.179. She was transferred to [facility] for NSTEMI. She was started on heparin gtt, ASA, atovastatin, metoprolol, and ticagelor load. Heparin was weaned over the night. In the morning she had 2 more episodes of chest pain, and given SL nitro x2, whichimproved pain. She was later taken for [facility] after a discussion of the need to be on blood thinning medications for 12 months if a stent was to be placed. The patient agreed. Her [facility] had culprit lesionin LAD, which was stented [...] Consult/Follow Up Cardiac Rehabilitation Please refer to [facility] in [facility] Reason for Request: post NSTEMI, post pci, CAD Expected Discharge Date (Inpatient Only): 04/01/2014 Scheduling Time Frame: 1 week Authorizing Provider: Yesy Manuel NP Amb Consult/Follow Up Cardiology Please schedule in [facility] cardiology clinic with Dr Alex oSto or next available advertising designer at that clinic. Office in [place] [phone]; cardiology clinic in [facility] [phone] Reason for Request: post NSTEMI post PCI, [...] up with cardiology in 4-6 weeks at [facility] Please continue your cardiac medications, especially your [...] weeks. * Tali Jacobs MD - 03/31/2014 7635 EDT Cardiology Post Procedure Note Date of [...] case management office. Quyen Barrett RN, CM pager#[phone] * Yesy Maneul NP - 03/31/2014 1308 EDT Ticagrelor twice daily without interruption x 1 year reviewed with patient and she verbalizes understanding. Cardiac rehab reviewed with patient and the patient is willing to attend at [facility]. Referral sent and written material given to patient.Follow up has been requested with Dr Alex Soto in cardiology clinic, [facility]. 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 2+ right radial pulse, no hematoma. * Mitch Teixeira RN - 03/31/2014 0901 EDT Case Management Assessment & Initial Discharge Plan Working Diagnosis/Presenting Problem: NSTEMI Living Arrangements: Lives with 5 yo son at home, family member taking care of son while in hospital. 2-3steps to enter 2 story home. 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 Social Supports: Mother lives locally, friends available Existing Community Resources: No HH in past or currently, does not foresee needs upon discharge. PCP Pretty Avery MD Advanced Directives/DPOA: AD pamphlet given to patient Cultural/Spiritual Needs: Denied visit Insurance/Financial Needs: Medicaid coverage, pharmacy is [facility] in [facility] Transportation Needs: May need assistance with transportation, trying to set up a ride from family for d/c. Patient's car is in [place] currently. Patient Goals: No other needs at [...] relived with rest. She was taken to [facility] and treated with nitro and aspirin. The patient experienced some relief with nitro. EKG showed non specific st changes and trops were elevated. She was [facility] for management. Currently with the nitro gtt [...] clinical course Shahid Rayo MD Pager # [phone] 03/30/2014 21:10 Attestation statement::I have seen and [...] MD Fellow: Yesy Manuel NP and Chun Nielsen MD Pre-Procedure Diagnosis/Indication: Isa Ro is a 49 y.o. year old female with NSTEMI. NCDR Indication for PCI:NSTEMI Prior Stress Testing? No Cardiac Medications: On two or more anti anginal medications at the time of catheterization? No Anesthesia: A moderate level of anesthesia/conscious sedation was used in addition to local anesthesia. Access: Right radial artery Procedure: [facility] forthe procedure: Diagnostic [...] of Care - Robin Johnson - 03/31/2014 9487 EDT Problem: CIRCULATORY STATUS Goal: Patient Has [...] Care - Cuauhtemoc Berg RN - 03/31/2014 6278 EDT Problem: CIRCULATORY STATUS Goal: Patient Has Stable Vital Signs And Fluid Balance Outcome: Ongoing D: Patient arrived to [place] [address]. Vital signs noted, and tele applied. Patient [...] Routine NSTEMI (non-ST elevated myocardial infarction) ([facility]) S/P coronary artery stent placement Ordered: 03/31/2014 AMB CONS/FOLLOW UP CARDIOLOGY Outpatient Referral Routine NSTEMI (non-ST elevated myocardial infarction) ([facility]) S/P coronary artery stent placement Ordered: 03/31/2014 [...] 9:34 EST) 09/26/2015 9:34 EST Scan 2 Assistant Professor Of Spanish PROCEDURE/MINOR SHAYY GICAL ORDERABLES * ECG REPORT - SCANNED (04/06/2014 13:00 EDT) 04/06/2014 13:0 0 EDT Scan 2 Assistant Professor Of Spanish PROCEDURE/MINOR SHAYY GICAL ORDERABLES * ECG REPORT - SCANNED (04/06/2014 13:00 EDT) 04/06/2014 13:0 0 EDT Scan 2 Assistant Professor Of Spanish PROCEDURE/MINOR SHAYY GICAL ORDERABLES * INVASIVE CARDIOLOGY REPORT-SCANNED (04/06/2014 13:00 EDT) 04/06/2014 13:0 0 EDT Scan 2 Assistant Professor Of Spanish PROCEDURE/MINOR SHAYY GICAL ORDERABLES * ECG REPORT - SCANNED (04/05/2014 7:12 EDT) 04/05/2014 7:12 EDT Scan 2 Assistant Professor Of Spanish PROCEDURE/MINOR SHAYY GICAL ORDERABLES * ECG REPORT - SCANNED (04/04/2014 11:58 EDT) 04/04/2014 11:5 8 EDT Scan 2 Assistant Professor Of Spanish PROCEDURE/MINOR SHAYY GICAL ORDERABLES * ECG REPORT - SCANNED (04/04/2014 11:56 EDT) 04/04/2014 11:5 6 EDT Scan 2 Assistant Professor Of Spanish PROCEDURE/MINOR SHAYY GICAL ORDERABLES * (ABNORMAL) DIFFERENTIAL (04/01/2014 5:50 EDT) % Neutrophils 81.4(H) 45.5 - 79.7 % [facility] % Lymphocytes 9.9(L) 15.0 - 46.8 % [facility] % Monocytes 7.2 1.8 - [...] PF4 ORD ERABLES [facility] [address] [place] [address] * HEMAGRAM (04/01/2014 5:50 EDT) WBC 11.20 [...] & PF4 ORD ERABLES Performing Organization Address [facility] de Phone Number [facility] [address] [place] [address] * PTT (04/01/2014 5:50 EDT) PTT 27 26 - 37 secs [facility] Comment:Therapeutic Heparin range: 65-100 seconds Blood specimen (specimen) 04/01/2014 5:50 EDT 04/01/2014 6:36 EDT Shahid Rayo MD HEMATOLOGY & PF4 ORD ERABLES Performing Organization Address [facility] Phone Number [facility] [address] [place] [address] * CREATININE (04/01/2014 5:50 EDT) Creatinine 0.69 0.52 - 1.04 mg/dl [facility] GFR, Calculated >60 >60 ml/min/1.7 3m2 [facility] Blood specimen (specimen) 04/01/2014 5:50 EDT 04/01/2014 6:36 EDT Shahid Rayo MD CHEMISTRY & BLOOD GA S ORDERABLES Performing Organization Address [facility] de Phone Number [facility] [address] [place] [address] * BUN (04/01/2014 5:50 EDT) BUN 10 10 - 26 mg/dl [facility] Blood specimen (specimen) 04/01/2014 5:50 EDT 04/01/2014 6:36 EDT Shahid Rayo MD CHEMISTRY & BLOOD GA S ORDERABLES Performing Organization Address [facility] Co de Phone Number [facility] [address] [place] [address] * ELECTROLYTES (04/01/2014 5:50 EDT) Sodium 138 136 - 145 mEq/L [facility] Potassium 4.2 3.5 - 5.0 mEq/L [facility] Chloride 107 96 - 110 mEq/L [facility] CO2 24 24 - 32 mEq/L [facility] Blood specimen (specimen) 04/01/2014 5:50 EDT 04/01/2014 6:36 EDT Shahid Rayo MD CHEMISTRY & BLOOD GA S ORDERABLES Performing Organization Address [facility] Co de Phone Number [facility] [address] [place] [address] * CK MB WITH TOTAL CK (04/01/2014 5:50 EDT) CK 35 30 - 135 U/L [facility] MB 1.58 <2.95 ng/ml [facility] Blood specimen (specimen) 04/01/2014 5:50 EDT 04/01/2014 6:36 EDT Yesy Manuel NP CHEMISTRY & BLOOD GA S ORDERABLES Performing Organization Address [facility] Co de Phone Number [facility] [address] [place] [address] * CK MB WITH TOTAL CK (03/31/2014 22:14 EDT) CK 42 30 - 135 U/L [facility] MB 1.72 <2.95 ng/ml [facility] Blood specimen (specimen) 03/31/2014 22:14 EDT 03/31/2014 22:19 EDT Shahid Rayo MD CHEMISTRY & BLOOD GA S ORDERABLES Performing Organization Address City/[facility]/ZIP Co de Phone Number [facility] [address] [place] [address] * (ABNORMAL) TROPONIN I (03/31/2014 14:32 EDT) Troponin I (ng/mL) 0.136(H) <0.034 ng/ml [facility] Blood specimen (specimen) 03/31/2014 14:32 EDT 03/31/2014 15:09 EDT Shahid Rayo MD CHEMISTRY & BLOOD [place] S ORDERABLES Performing Organization Address [facility] de Phone Number [facility] [address] [place] [address] * CK MB WITH TOTAL CK (03/31/2014 14:32 EDT) CK 62 30 - 135 U/L [facility] MB 2.04 <2.95 ng/ml [facility] Blood specimen (specimen) 03/31/2014 14:32 EDT 03/31/2014 15:09 EDT Shahid Rayo MD CHEMISTRY & BLOOD GA S ORDERABLES Performing Organization Address [facility] de Phone Number [facility] [address] [place] [address] * EKG 12-LEAD (03/31/2014 13:30 EDT) 03/31/2014 13:3 0 EDT Narrative [facility] EKG - 04/04/2014 7:56 EDT ?[facility] ? Test Date: ?2014-03-31 Pat Name: ? ISA RO ?Department: ?? [facility] ? Room: ? MW511 Gender: ? F ?Tab Builder: ?? [id number] : ?1965 ? Requested By: YESY MANUEL DIAGNOSTIC TECHNICIAN Order Number: [id number] ? Reading MD: ?? BRYAN PURDY MD ? Measurements Intervals ?Satin ? Rate: ? 50 ? P: ?57 NE: ? 154 ?QRS: ?29 QRSD: ? 90 [...] Date: 2014-03-31 Pat Name: ISA RO Department: [place] [address] Room: [facility] Gender: F Tab Builder: [id number] : 1965 Requested By: YESY MANUEL NP Order Number: [id number] Reading MD: BRYAN PURDY MD Measurements Intervals Satin Rate: 50 P: 57 NE: 154 QRS: 29 QRSD: 90 T: 38 [...] 5 EDT Narrative 03/31/2014 13:08 EDT Cardiology [address] [place] [address] Catheterization Laboratory Study Patient: Isa Ro ? Study Date: ?03/31/2014 ? Accession #: ? [id number] : ? 1965 Referring Physician: Dilip Mahajan [...] successfully achieved. SUMMARY: 1. HPI and indications: Rbq-UF-cmiixsfb myocardial infarction. 2. LAD: Proximal vessel lesion: [...] 4. Continue aspirin, at 81mgPOdaily, indefinitely. HISTORY: Gag-JO-hpxnfpgl myocardial infarction. ??Functional status: ?? CCS class [...] radial artery access. A 5Fr/10 cm [employer] [place] Sheath Radial sheath was ?? advanced into [...] MD 2014-03-31 13:08 Procedure Note 03/31/[address] [place] [address] Catheterization Laboratory Study Patient: Isa Ro Study [...] successfully achieved. SUMMARY: 1. HPI and indications: Dnb-VL-pxbnunjo myocardial infarction. 2. LAD: Proximal vessel lesion: [...] Add tricagrelor (Brilinta), loading dose 180mgPO, standing [id number], for 12mon. 4. Continue aspirin, at 81mgPOdaily, indefinitely. HISTORY: Gya-DN-dkexdvqo myocardial infarction. Functional status: CCS class IV [...] radial artery access. A 5Fr/10 cm [employer] [place] Sheath Radialsheath was advanced into the vessel. [...] 2. Vessel setup was performed. A 180 [employer] wire was used to crossthe lesion. 3. [...] ADALID grade 3 flow (brisk flow) across thelesion. [...] EDT *Interpreting Group:* *[facility]* [address] [place] [address] *STUDY CONCLUSIONS* Summary: ?? Left ventricle: The [...] ATTENDING ?Waqas Yao MD REFERRING ?Pretty Avery* RN CLINICAL ??Tracey Black PERFORMING ?? [facility], FELLOW ? Abiodun Velez ORDERING ? Joel Parker REFERRING ?Joel Parker j *PROCEDURE DATA* Procedure information: ??This study was interpreted by [facility]. ??Study status: ??Routine. Transthoracic echocardiography. ??M-mode, complete 2D, complete spectral Doppler, and color Doppler. A Transthoracic Echocardiogram was performed. Scanning was performed from the parasternal, apical, subcostal, and suprasternal notch acoustic windows. Images were obtained using a Shubham IE33 3 cardiac ultrasound machine. Image quality was adequate. ??Study completion: ??The patient tolerated the procedure well. *INDICATIONS AND HISTORY* Indications: ?? NV - nontransmural - acute 410.71. *CARDIAC ANATOMY* [...] 03/31/2014 11:13 Procedure Note 03/31/2014 *Interpreting Group:* *[facility]* [address] [place] [address] *STUDY CONCLUSIONS* Summary: Left ventricle: The cavity [...] ATTENDING Waqas Yao MD REFERRING Pretty Avery* RN CLINICAL Tracey Black PERFORMING Fa, FELLOW Abiodun Velez ORDERING Joel Parker REFERRING Joel Parker j *PROCEDURE DATA* Procedure information: This study was interpreted by [facility]. Study status: Routine.Transthoracic echocardiography. M-mode, complete 2D, complete spectral Doppler, andcolor Doppler. A Transthoracic Echocardiogram was performed. Scanning wasperformed from the parasternal, apical, subcostal, and suprasternal notch acoustic windows. Images were obtained using a Shubham IE33 3 cardiac ultrasoundmachine. Image quality was adequate. Study completion: The patient tolerated the procedure well. *INDICATIONS AND HISTORY* Indications: NV - nontransmural - acute 410.71. *CARDIAC ANATOMY* [...] ? Room: ? MW511 Gender: ? F ?Tab Builder: ?? [id number] : ?1965 ? Requested By: WAQAS YAO MD Order Number: [id number] ? Reading MD: ?? LYDIA DALTON MD ? Measurements Intervals ?Satin ? Rate: ? 59 ? P: ?58 NE: ? 154 ?QRS: ?41 QRSD: ? 88 [...] Date: 2014-03-31 Pat Name: ISA SHEPHERDISAI Department: [place] [address] Room: MW511 Gender: F Tab Builder: [id number] : 1965 Requested By: WAQAS YAO MD Order Number: [id number] Reading MD: LYDIA DALTON MD Measurements Intervals Satin Rate: 59 P: 58 NE: 154 QRS: 41 QRSD: 88 T: 43 [...] Lymphocytes 12.9(L) 15.0 - 46.8 % [facility] % Monocytes 7.6 1.8 - 12.0 [...] & PF4 ORD ERABLES Performing Organization Address City/[facility]/ZIP Co de Phone Number [facility] [address] [place] [address] * HEMAGRAM (03/31/2014 6:43 EDT) Pathologist [facility] WBC 8.21 4.0 - 12.4 K/cmm [facility] RBC 4.44 3.86 - 5.04 [...] & PF4 ORD ERABLES Performing Organization Address City/[facility] Co de Phone Number [facility] [address] [place] [address] * (ABNORMAL) PTT (03/31/2014 6:43 EDT) Pathologist [facility] PTT 51(H) 26 - 37 secs [facility] Comment:Therapeutic Heparin range: 65-100 seconds Blood specimen (specimen) 03/31/2014 6:43 EDT 03/31/2014 7:01 EDT Shahid Rayo MD HEMATOLOGY & PF4 ORD ERABLES Performing Organization Address [facility] de Phone Number [facility] [address] [place] [address] * CREATININE (03/31/2014 6:43 EDT) Pathologist [facility] Creatinine 0.70 0.52 - 1.04 mg/dl [facility] GFR, Calculated >60 >60 ml/min/1.7 3m2 [facility] Blood specimen (specimen) 03/31/2014 6:43 EDT 03/31/2014 7:01 EDT Shahid Rayo MD CHEMISTRY & BLOOD GA S ORDERABLES Performing Organization Address [facility] de Phone Number [facility] [address] [place] [address] * BUN (03/31/2014 6:43 EDT) BUN 15 10 - 26 mg/dl [facility] Blood specimen (specimen) 03/31/2014 6:43 EDT 03/31/2014 7:01 EDT Shahid Rayo MD CHEMISTRY & BLOOD GA S ORDERABLES Performing Organization Address [facility] Phone Number [facility] [address] [place] [address] * ELECTROLYTES (03/31/2014 6:43 EDT) Sodium 139 136 - 145 mEq/L [facility] Potassium 4.2 3.5 - 5.0 mEq/L [facility] Chloride 107 96 - 110 mEq/L [facility] CO2 24 24 - 32 mEq/L [facility] Blood specimen (specimen) 03/31/2014 6:43 EDT 03/31/2014 7:01 EDT Shahid Rayo MD CHEMISTRY & BLOOD GA S ORDERABLES Performing Organization Address [facility] Phone Number [facility] [address] [place] [address] * LIPID PROFILE (INCLUDES CHOLESTEROL, TRIGLYCERIDES, HDL, LDL) (03/31/2014 6:43 EDT) Cholesterol 152 mg/dl [facility] Comment: Desirable:<200 Borderline High:200-239 High:>jq=452 Triglycerides 100 mg/dl [facility] Comment: Normal:<150 Borderline High:150-199 High:200-499 Very High:>ad=382 HDL 50 mg/dl [facility] Comment: Low:<40 Normal:40-60 Desirable: >60 LDL, Calculated 82 mg/dl [facility] Comment: Optimal:<100 Near Optimal:100-129 Borderline High:130-159 High:160-189 Very High:>wm=483 Chol/HDL Ratio 3.0 [facility] Fasting? Unknown [facility] Non HDL Cholesterol 102 mg/dl [facility] Comment: Desirable:<130 Borderline:130-159 High: 160-189 Very High: >yi=055 Blood specimen (specimen) 03/31/2014 6:43 EDT 03/31/2014 7:01 EDT Shahid Rayo MD CHEMISTRY & BLOOD GA S ORDERABLES Performing Organization Address [facility] Co de Phone Number [facility] [address] [place] [address] * (ABNORMAL) TROPONIN I (03/31/2014 6:43 EDT) Troponin I (ng/mL) 0.180(H) <0.034 ng/ml [facility] Blood specimen (specimen) 03/31/2014 6:43 EDT 03/31/2014 7:01 EDT Shahid Rayo MD CHEMISTRY & BLOOD GA S ORDERABLES Performing Organization Address [facility] Co de Phone Number [facility] [address] [place] [address] * CK MB WITH TOTAL CK (03/31/2014 6:43 EDT) CK 55 30 - 135 U/L [facility] MB 2.51 <2.95 ng/ml [facility] Blood specimen (specimen) 03/31/2014 6:43 EDT 03/31/2014 7:01 EDT Shahid Rayo MD CHEMISTRY & BLOOD GA S ORDERABLES Performing Organization Address [facility] Co de Phone Number [facility] [address] [place] [address] * HEMOGLOBIN A1C (03/31/2014 6:43 EDT) Hemoglobin [...] BLOOD GA S ORDERABLES Performing Organization Address [facility] Co de Phone Number [facility] [address] [place] [address] * HEMAGRAM (03/30/2014 22:23 EDT) WBC 9.80 [...] HEMATOLOGY & PF4 ORDERABLES Performing Organization Address [facility] de Phone Number [facility] [address] [place] [address] * INPATIENT ADD-ON (03/30/2014 22:00 EDT) Pathologist [facility] Tests to be added HEMAGRAM [facility] Number for problems MW5 [facility] Accession number [id number] [facility] 03/30/2014 22:0 0 EDT 03/30/2014 22:10 EDT Shahid Rayo MD HEMATOLOGY & PF4 ORD ERABLES Performing Organization Address [facility] Co de Phone Number [facility] [address] [place] [address] * CK MB WITH TOTAL CK (03/30/2014 21:01 EDT) [facility] CK 59 30 - 135 U/L [facility] MB 2.26 <2.95 ng/ml [facility] Blood specimen (specimen) 03/30/2014 21:01 EDT 03/30/2014 21:10 EDT Shahid Rayo MD CHEMISTRY & BLOOD GA S ORDERABLES Performing Organization Address [facility] Co de Phone Number [facility] [address] [place] [address] * (ABNORMAL) TROPONIN I (03/30/2014 21:01 EDT) [facility] Troponin I (ng/mL) 0.179(H) <0.034 ng/ml [facility] Blood specimen (specimen) 03/30/2014 21:01 EDT 03/30/2014 21:10 EDT Shahid Rayo MD CHEMISTRY & BLOOD GA S ORDERABLES Performing Organization Address [facility] de Phone Number [facility] [address] [place] [address] * CREATININE (03/30/2014 21:01 EDT) [facility] Creatinine 0.74 0.52 - 1.04 mg/dl [facility] GFR, Calculated >60 >60 ml/min/1.7 3m2 [facility] Blood specimen (specimen) 03/30/2014 21:01 EDT 03/30/2014 21:10 EDT Shahid Rayo MD CHEMISTRY & BLOOD GA S ORDERABLES Performing Organization Address [facility] Phone Number [facility] [address] [place] [address] * BUN (03/30/2014 21:01 EDT) BUN 13 10 - 26 mg/dl [facility] Blood specimen (specimen) 03/30/2014 21:01 EDT 03/30/2014 21:10 EDT Shahid Rayo MD CHEMISTRY & BLOOD GA S ORDERABLES Performing Organization Address [facility] de Phone Number [facility] [address] [place] [address] * ELECTROLYTES (03/30/2014 21:01 EDT) Sodium 139 136 - 145 mEq/L [facility] Potassium 3.7 3.5 - 5.0 mEq/L [facility] Chloride 105 96 - 110 mEq/L [facility] CO2 24 24 - 32 mEq/L [facility] Blood specimen (specimen) 03/30/2014 21:01 EDT 03/30/2014 21:10 EDT Shahid Rayo MD CHEMISTRY & BLOOD GA S ORDERABLES Performing Organization Address [facility] de Phone Number [facility] [address] [place] [address] * PROTIME (03/30/2014 21:01 EDT) Pro Time [...] PF4 ORD ERABLES [facility] [address] [place], [place] [id number] * (ABNORMAL) PTT (03/30/2014 21:01 EDT) PTT 130(HH) 26 - 37 secs [facility] Comment:Therapeutic Heparin range: 65-100 seconds Blood specimen (specimen) 03/30/2014 21:01 EDT 03/30/2014 21:10 EDT Shahid Rayo MD HEMATOLOGY & PF4 ORD ERABLES Performing Organization Address City/[facility] Co de Phone Number [facility] [address] [place] [address] documented in this encounter Visit Diagnoses Diagnosis NSTEMI (non-ST elevated myocardial infarction) ([facility] Primary Acute myocardial infarction, subendocardial infarction, episode of care unspecified NSTEMI (non-ST elevated myocardial infarction) ([facility]) Acute myocardial infarction, subendocardial infarction, episode of [...] 03/14 documented in this encounter Care Teams Quoter Relationship Specialty Start Date End Date Pretty Avery MD [address] [place] [address] PCP - General 06/05/10 documented as of this encounter
--- OUTSIDE RECORDS SUMMARY | 2024-04-06 11:15 | XMS_ITS | Encounter Summary ---
Author Organization [facility] Address [address] [place] [address] Care Team Providers Care Product Support Consultant Name Role Phone Pretty Avery MD Primary Care Provider [phone] Encounter Details Date Type Department Care Team (Late st Contact Info) Description 02/15/2020 Lab Requisition [facility] Pathology & Laboratory Medicine - [address] [address] Outr Resulting Lab, Provider Social History Tobacco [...] - BROAD COVID TEST (02/15/2020 13:38 EDT) [facility] COVID-19 rt-PCR Result NEGATIVE Negative 02/17/2020 10:45 EDT [facility] Comment: 2019-novel Coronavirus (2019-nCoV) not detected [...] in accordance with CLIA regulations, College of [place] Pathologists (CAP) guidelines (Dec 01, 2019), and FDA guidance (Nov 12, 2019). This test is only for use under the Food and Drug Administration's Emergency Use Authorization. Swab ENTIRE NASOPHARYNX / Unknown 02/15/2020 13:38 EDT 02/15/2020 21:00 EDT Provider Outr Resulting Lab MICROBIOLOGY - GENERAL ORDERABLES [facility] [place] * COVID-19 TESTING (02/15/2020 13:38 EDT) COVID-19 rt-PCR Result NEGATIVE Negative 02/17/2020 12:54 EDT [facility] Comment: 2019-novel Coronavirus (2019-nCoV) not detected [...] in accordance with CLIA regulations, College of [employer] Of [place] Pathologists (CAP) guidelines (Dec 01, 2019), and FDA guidance (Nov 12, 2019). This test is only for use under the Food and Drug Administration's Emergency Use Authorization. Performing Lab [employer] 02/17/2020 12:54 EDT [facility] Swab ENTIRE NASOPHARYNX / Unknown 02/15/2020 13:38 EDT 02/15/2020 21:00 EDT Provider Outr Resulting Lab MICROBIOLOGY - GENERAL ORDERABLES [facility] [address] [place] [address] [facility] [place] documented in this encounter Visit Diagnoses Not on filedocumented in this encounter Care Teams Product Support Consultant Relationship Specialty Start Date End Date Pretty Avery MD [address] [place] [address] PCP - General 06/05/10 documented as of this encounter
--- OUTSIDE RECORDS SUMMARY | 2024-04-06 11:15 | XMS_ITS | Encounter Summary ---
Author Organization [facility] Address [address] [place] [address] Care Team Providers Care Clipper Machine Operator Name Role Phone Pretty Avery MD Primary Care Provider [phone] Encounter Details Date Type Department Care Team (Late st Contact Info) Description 09/06/2013 Results Only [facility] Laboratory Services - [facility] ([facility]) [address], [place] [id number] Jake Sabillon FNP [address] [place], [place] [address] Social History Tobacco Use Types Packs/Day Years [...] ANNEEZEQUIEL GREEN Chuy ? Accession #: ? [id number] : ? 1965 (Age: 48) ??F ?Collect Date: ? 09/06/2013 Location: ? [facility] ? Receive Date: ? 09/08/2013 Provider: ?JAKE SABILLON VICE PRESIDENT OF HUMAN RESOURCES Copy to: ? Specimen/Source: ?Pap Test, Cervix/Endocervix, [...] Report [facility] 09/06/2013 09/08/2013 Jake Sabillon VICE PRESIDENT OF HUMAN RESOURCES PATHOLOGY ORDERABLES [facility] [address] [place] [address] documented in this encounter Visit Diagnoses Not on filedocumented in this encounter Care Teams Clipper Machine Operator Relationship Specialty Start Date End Date Pretty Avery MD [address] [place] [address] PCP - General 06/05/10 documented as of this encounter
--- OUTSIDE RECORDS SUMMARY | 2024-04-06 11:15 | XMS_ITS | Encounter Summary ---
Author Organization [facility] Address [address] [place] [address] Care Team Providers Care Social Sciences Instructor Name Role Phone Pretty Avery MD Primary Care Provider [phone] Encounter Details Date Type Department Care Team (Latest Contact Info) Description 06/18/2018 9:36 EDT - 06/18/2018 23:[address] [facility] - [address] [address] Unknown, Provider, Discharge Disposition: Home or Self [...] Code Departure Means Destination Home or Self Assisted documented in this encounter Plan of Treatment Not on file documented as of this encounter Visit Diagnoses Not on filedocumented in this encounter Care Teams Social Sciences Instructor Relationship Specialty Start Date End Date Pretty Avery MD [address] [place] [address] PCP - General 06/05/10 documented as of this encounter
--- OUTSIDE RECORDS SUMMARY | 2024-04-06 11:15 | XMS_ITS | Referral Summary ---
Author Organization [facility] Address [address] [place] [address] Care Team Providers Care Em Physician Name Role Phone Pretty Avery MD Primary Care Provider [phone] Allergies No known active allergies Medications Medication [...] Date NSTEMI (non-ST elevated myocardial infarction) ( [facility]) 03/30/2014 Social History Tobacco Use Types Packs/Day [...] Advance Directives For more information, please contact: [phone] * Full Code (Latest Code Status on File) Date Activated Date Inactivated Comments 12/15/2014 9:53 12/15/2014 18:00 Question Answer Comments Reason for decision includes: Full code consistent with overall plan of care Who participated in the discussion? Patient * Full Code Date Activated Date Inactivated Comments 03/30/2014 20:42 04/01/2014 17:36 Care Teams Em Physician Relationship Specialty Start Date End Date Pretty Avery MD [address] [place] [address] PCP - General 06/05/10
--- OUTSIDE RECORDS SUMMARY | 2024-04-06 11:15 | XMS_ITS | Encounter Summary ---
Author Organization [facility] Address [address] [place] [address] Care Team Providers Care Straw Baler Name Role Phone Unavailable Primary Care Provider Unavailabl e Encounter Details Date Type Department Care Team (Late st Contact Info) Description 12/31/2007 Results Only [facility] - [address] [id number] Skip Alcocer MD [address] [place] [address], [address] [place] [address] Social History Tobacco Use Types [...] Results * AMNIOTIC FLUID/CVS ANEUPLOIDY FISH (FOR X,Y,21,13,18)([facility] #[id number]) (12/31/2007 16:34 EDT) Specimen (Note) Chorionic Villi Sample ? [facility] Specimen ID [id number] [facility] Order Date 01 Jan 2008 09:10 [facility] Method (Note) FISH analysis of 100 nuclei with probes for Xcen (DXZ1), ? Ycen (DYZ3), 13q14 (Rb1), 18cen (D18Z1) and 21q22 ([id number]). ? [facility] Reason For Referral [...] ? FISH results. ? The College of [place] [employer]ologists and the [place] ? CIHI recommend confirmation of ? abnormal diagnostic results at or ? termination, to the extent possible. ? DISCLAIMER: ??This test was developed and its performance ? characteristics determined by Laboratory Medicine and ? Pathology, [facility]. ??It has not been cleared ? or approved by the U.S. Food and Drug Administration. ??This ? FISH assay does not rule out other chromosome anomalies. ? Woody et al., [place] Clin Proc 73:132-137, 1998. ? [facility] Vegetable Farm Manager (Note) Eduardo Corey MD ? [facility] Report Date 03 Jan 2008 12:44 Performed or Referred by: [facility] Dpt of Lab Med and Path, [address] ?? , [place] [address], Lab Dir: MD URVASHI Morgan III 12/31/2007 16:3 4 EDT 12/31/2007 16:34 EDT Skip Alcocer MD GEN LAB UNIT ELISE ECT ORDERABLES [facility] [address] [place] [address] * [facility] CHROMOSOME ANALYSIS ([facility] #[id number]) (12/31/2007 16:34 EDT) Specimen (Note) Chorionic Villi Sample ? [facility] Specimen ID [id number] [facility] Order Date 01 Jan 2008 09:10 [facility] Method CVS culture [facility] Reason For Referral maternal age [facility] Results 46,XY [facility] Interpretation (Note) No chromosome abnormality was observed in 30 metaphases ? analyzed from 3 primary cultures. ? This result is consistent with the normal FISH studies, ? reported separately. ? [facility] Vegetable Farm Manager (Note) Manuel V N Velagakarlyi PhD ? [facility] Report Date 10 Jan 2008 16:27 Performed or Referred by: [facility] D[facility] of Lab Med and Path, [address] ?? , [place] [address], Lab Dir: MD URVASHI Morgan III Haploid Band Resolution 400Unit: bands [facility] Total Cells Analyzed 30 [facility] Total Cells Karyotyped 2 [facility] 12/31/2007 16:3 4 EDT 12/31/2007 16:34 EDT Skip Alcocer MD HEMATOLOGY & PF4 ORDERABLES [facility] [address] [place] [address] documented in this encounter Visit Diagnoses Not on filedocumented in this encounter
--- OUTSIDE RECORDS SUMMARY | 2024-04-06 11:15 | XMS_ITS | Encounter Summary ---
Author Organization [facility] Address [address] [place] [address] Care Team Providers Care Pitch Filler Name Role Phone Pretty Avery MD Primary Care Provider [phone] Encounter Details Date Type Department Care Team (Latest Contact Info) Description 03/30/2014 10:20 EDT - 03/30/2014 20:09 EDT Hospital Encounter [facility] [address] [place] [address] Unknown, Provider, Discharge Disposition: Home or Self [...] on filedocumented in this encounter Care Teams Pitch Filler Relationship Specialty Start Date End Date Pretty Avery MD [address] [place] [address] PCP - General 06/05/10 documented as of this encounter
--- OUTSIDE RECORDS SUMMARY | 2024-04-06 11:15 | XMS_ITS | Encounter Summary ---
Author Organization [facility] Address [address] [place] [address] Care Team Providers Care Job Forwarder Name Role Phone Pretty Avery MD Primary Care Provider [phone] Encounter Details Date Type Department Care Team (Latest Contact Info) Description 09/11/2021 Lab Requisition [facility] Pathology & Laboratory Medicine - [address] [address] Rosalba Archibald, LABOR CONTRACT ANALYST [address] [address] Encounter for general adult medical examination without [...] types, PCR Negative Negative 09/20/2021 15:45 EST [facility] Comment:No E6 or E7 mRNA is detected from HPV types 16,18,31,33,35,39,45,51,52,56,58,59,66, and 68 by tool machinist mediated amplification. Papanicolaou smear specimen (specimen) CERVIX UTERI STRUCTURE / Unknown 09/10/2021 9:15 EST 09/19/2021 14:21 EST Rosalba Archibald APRN MICROBIOLOGY - GE NERAL ORDERABLES [facility] [address] [place] [address] * PAP TEST (09/10/2021 9:15 EST) Specimens A. Cervix and/or Endocervix , ThinPrep Imaging System with Manual Evaluation 09/20/2021 15:45 EST [facility] Specimen Adequacy Satisfactory for Evaluation - transformation zone component present 09/20/2021 15:45 EST [facility] General Categorization Epithelial Cell Abnormality 09/20/2021 15:45 EST [facility] Descriptive Diagnosis Squamous Cell Abnormality - Atypical squamous cells, undetermined significance (ASC-US). 09/20/2021 15:45 EST [facility] Educational Comments [facility] recommends following ASCCP's 2012 Updated Consensus Guidelines for the Management of Abnormal Cervical Cancer Screening Tests and Cancer Precursors (JLGTD, 2013; 17(5):S1-S27). Consensus guidelines are available online at www.asccp.org. 09/20/2021 15:45 [facility] Attestation By the signature below, the attending physician certifies that they have personally conducted a gross and/or microscopic examination of the described specimens and rendered or confirmed the above diagnosis. 09/20/2021 15:45 [facility] at 1545 Clinical History See below 09/20/19 15:45 [facility] HPV The result for the Human Papillomavirus (HPV) Detection-High Risk Types is Negative. No E6 or E7 mRNA is detected from HPV types 16,18,31,33,35,3 9,45,51,52,56,58 ,59,66, and 68 by tool machinist mediated amplification.Te sting was performed on specimen [id number] and was resulted on 09/20/2021 1543 EST by CARMEN, LAB INSTRUMENT RESULTS IN 09/20/2021 15:45 [facility] Performing Lab [facility] 09/20/2021 15:45 [facility] Scanned Images 09/20/2021 15:45 [facility] Papanicolaou smear specimen (specimen) CERVIX UTERI STRUCTURE / Unknown 09/10/2021 9:15 EST 09/11/2021 9:41 EST Rosalba Archibald APRN PATHOLOGY ORDERAB LES [facility] [address] [place] [address] documented in this encounter Visit Diagnoses Diagnosis Encounter for general adult medical examination without abnormal findings Unspecified general medical examination Encounter for screening for malignant neoplasm of cervix Screening for malignant neoplasm of the cervix Encounter for gynecological examination (general) (routine) without abnormal findings documented in this encounter Care Teams Job Forwarder Relationship Specialty Start Date End Date Pretty Avery MD [address] [place] [address] PCP - General 06/05/10 documented as of this encounter
--- OUTSIDE RECORDS SUMMARY | 2024-04-06 11:15 | XMS_ITS | Encounter Summary ---
Author Organization [facility] Address [address] [place] [address] Care Team Providers Care Injection Molding Machine Tender Name Role Phone Pretty Avery MD Primary Care Provider [phone] Reason for Visit * Reason Onset Date Comments Post-op Problem 12/17/2014 Encounter Details Date Type Department Care Team (Late st Contact Info) Description 12/17/2014 Telephone [facility] Cardiology - [address] [place], [place] [phone] Alex Freed, [address] [address] Post-op Problem Social History Tobacco [...] Encounter - Alex Freed DO - 12/17/2014 0286 EDT Isa called on 12/16/14 with complaints [...] at 18:00. Alex Freed DO 12/17/2014 11:53 Ironer Or Presser documented in this encounter Plan of Treatment Not on file documented as of this encounter Visit Diagnoses Not on filedocumented in this encounter Care Teams Injection Molding Machine Tender Relationship Specialty Start Date End Date Pretty Avery MD [address] [place] [phone] PCP - General 06/05/10 documented as of this encounter
--- OUTSIDE RECORDS SUMMARY | 2024-04-06 11:15 | XMS_ITS | Encounter Summary ---
Author Organization [facility] Address [address] [place] [address] Care Team Providers Care Foam Tank Laminator Name Role Phone Pretty Avery MD Primary Care Provider [phone] Encounter Details Date Type Department Care Team (Late st Contact Info) Description 06/24/2023 Lab Requisition [facility] Pathology & [place] [address] Outr Resulting Lab, Provider Social History Tobacco [...] Lyme Ab Negative Negative 06/25/2023 11:00 EDT [facility] Blood VENOUS BLOOD / Unknown 06/24/2023 9:02 EDT 06/24/2023 17:06 EDT Provider Outr Resulting Lab IMMUNOLOGY A ND SEROLOGY ORDERABLES [facility] [address] [place] [address] documented in this encounter Visit Diagnoses Not on filedocumented in this encounter Care Teams Foam Tank Laminator Relationship Specialty Start Date End Date Pretty Avery MD [address] [place] [address] PCP - General 06/05/10 documented as of this encounter
--- OUTSIDE RECORDS SUMMARY | 2024-04-06 11:15 | XMS_ITS | Encounter Summary ---
Author Organization [facility] Address [address] [place] [address] Care Team Providers Care Picking Belt Operator Name Role Phone Pretty Avery MD Primary Care Provider [phone] Encounter Details Date Type Department Care Team (Late st Contact Info) Description 12/05/2015 Results Only [facility] [phone] Ezequiel Estrada MD [address] [place] [phone] Social History Tobacco Use Types Packs/Day Years [...] ? EZEQUIEL THOMAS ? Accession #: ? [id number] ? : ? 1965 (Age: 50) ??F [...] the atypical cells from the stroma. ??(Dr. Mcgovern)/[facility] Document reviewed and electronically signed by: WILLIAM [...] May 12/06/2015 1:10 PM End of Report [facility] 12/05/2015 10:3 3 EDT 12/06/2015 10:33 EDT Ezequiel Estrada MD PATHOLOGY ORDERABLES [facility] [address] [place] [address] documented in this encounter Visit Diagnoses Not on filedocumented in this encounter Care Teams Picking Belt Operator Relationship Specialty Start Date End Date Pretty Avery MD [address] [place] [address] PCP - General 06/05/10 documented as of this encounter
--- OUTSIDE RECORDS SUMMARY | 2024-04-06 11:15 | XMS_ITS | Encounter Summary ---
Author Organization [facility] Address [address] [place] [address] Care Team Providers Care Tool Clerk Name Role Phone Pretty Avery MD Primary Care Provider Encounter Details Date Type Department Care Team (Late st Contact Info) Description 04/09/2018 Historical Results Only [facility] Lab - Main [address] [address] Ganesh Philip MD [address] [place] [address] Social History Tobacco Use Types Packs/Day [...] 0.000 - 0.034 ng/mL 04/09/2018 7:39 EDT [facility] Comment: Interpretation comments: ??Cutoff for a [...] & BLOOD GAS ORDERABLES Performing Organization Address City/[facility]/ZIP Co de Phone Number [facility] * LIPASE (04/09/2018 6:35 EDT) Lipase 84 <251 U/L 04/09/2018 9:4 8 EDT [facility] 04/09/2018 6:35 EDT 04/09/2018 9:38 EDT Narrative [facility] - 04/09/2018 9:48 EDT AOT: 04/09/18 0938: LIP Ganesh Philip MD CHEMISTRY & BLOOD GAS ORDERABLES [facility] documented in this encounter Visit Diagnoses Not on filedocumented in this encounter Care Teams Tool Clerk Relationship Specialty Start Date End Date Pretty Avery MD [address] [place] [address] PCP - General 06/05/10 documented as of this encounter
--- OUTSIDE RECORDS SUMMARY | 2024-04-06 11:15 | XMS_ITS | Encounter Summary ---
Author Organization [facility] Address [address] [place] [address] Care Team Providers Care Manager Respiratory Care Name Role Phone Pretty Avery MD Primary Care Provider [phone] Encounter Details Date Type Department Care Team (Late st Contact Info) Description 12/02/2005 Results Only [facility] - [facility] [address] [place] [address] Jake Sabillon FNP [address] [place], [place] [address] Social History Tobacco Use Types Packs/Day Years [...] ? ANNEEZEQUIEL GREEN ? Accession #: ? [id number] : ? 1965 (Age: 40) ??F ?Collect Date: ? 12/02/2005 Location: ? [facility] ? Receive Date: ? 12/04/2005 Provider: ?JAKE SABILLON ROCK PICKER Copy to: ? Specimen/Source: ?ThinPrep Pap Test, Cervix/Endocervix, processed on Soceaniq ThinPrep Imaging System, with manual evaluation Last [...] GARCÍAP PATHOLOGY ORDERABLES [facility] [address] [place] [address] documented in this encounter Visit Diagnoses Not on filedocumented in this encounter Care Teams Manager Respiratory Care Relationship Specialty Start Date End Date Pretty Avery MD [address] [place] [address] PCP - General 06/05/10 documented as of this encounter
--- OUTSIDE RECORDS SUMMARY | 2024-04-06 11:15 | XMS_ITS | Encounter Summary ---
Author Organization [facility] Address [address] [place] [address] Care Team Providers Care Cleaner Touch Up Worker Name Role Phone Unavailable Primary Care Provider Unavailabl e Encounter Details Date Type Department Care Team (Late st Contact Info) Description 04/30/2010 Results Only [facility] Medicine [address] [address] Pretty Avery MD [address] [place] [phone] Social History Tobacco Use Types Packs/Day Years [...]
--- OUTSIDE RECORDS SUMMARY | 2024-04-06 11:15 | XMS_ITS | Encounter Summary ---
Author Organization [facility] Address [address] [place] [address] Care Team Providers Care Trial Attorney Name Role Phone Pretty Avery MD Primary Care Provider [phone] Encounter Details Date Type Department Care Team (Late st Contact Info) Description 07/26/2021 Lab Requisition [facility] Pathology & [place] [address] Outr Resulting Lab, Provider Social History Tobacco [...] Lyme Ab Negative Negative 07/29/2021 9:57 EST [facility] Blood VENOUS BLOOD / Unknown 07/26/2021 10:55 EST 07/26/2021 21:29 EST Provider Outr Resulting Lab IMMUNOLOGY A ND SEROLOGY ORDERABLES Performing Organization Address City/State/[facility] Co de Phone Number [facility] [address] [place] [address] documented in this encounter Visit Diagnoses Not on filedocumented in this encounter Care Teams Trial Attorney Relationship Specialty Start Date End Date Pretty Avery MD [address] [place] [address] PCP - General 06/05/10 documented as of this encounter
--- OUTSIDE RECORDS SUMMARY | 2024-04-06 11:15 | XMS_ITS | Encounter Summary ---
Author Organization [facility] Address [address] [place] [address] Care Team Providers Care Continuous Improvement Facilitator Name Role Phone Pretty Avery MD Primary Care Provider [phone] Encounter Details Date Type Department Care Team (Latest Contact Info) Description 06/06/2010 18:54 EDT - 06/06/2010 23:59 EDT Hospital Encounter [address] [address] Pretty Avery MD [address] [place] [address] Discharge Disposition: Auto Discharge Social History Tobacco [...] on filedocumented in this encounter Care Teams Continuous Improvement Facilitator Relationship Specialty Start Date End Date Pretty Avery MD [address] [place] [phone] PCP - General 06/05/10 documented as of this encounter
--- OUTSIDE RECORDS SUMMARY | 2024-04-06 11:15 | XMS_ITS | Encounter Summary ---
Author Organization [facility] Address [address] [place] [address] Care Team Providers Care Patient Accounts Clerk Name Role Phone Pretty Avery MD Primary Care Provider [phone] Encounter Details Date Type Department Care Team (Late st Contact Info) Description 04/08/2018 Historical Results Only [facility] Radiology Results [address] [place] [address] Wesley Trinh MD [address] [place] [address] Social History Tobacco Use Types [...] TROPONIN I (04/08/2018 20:12 EDT) Pathologist [facility] [place] Troponin I (ng/mL) <0.012 0.000 - 0.034 ng/mL 04/08/2018 20:47 EDT [facility] Comment: Interpretation comments: ??Cutoff for [...] Philip MD CHEMISTRY & BLOOD GAS ORDERABLES [facility] * XR CHEST 2 VIEWS [...] MD ? Transcribed Date/Time: 04/08/2018 (1402) ? Organizational Effectiveness Consultant: ? Printed Date/Time: 03/04/2019 (5956) ? PAGE 1 ? Signed Report ? [...] Wesley Trinh MD Transcribed Date/Time: 04/08/2018 (1402) Organizational Effectiveness Consultant: Printed Date/Time: 03/04/2019 (5733) PAGE 1 Signed Report Wesley Trinh MD IMG DIAGNOSTIC I MAGING ORDERABLES * MAGNESIUM (04/08/2018 12:24 EDT) Magnesium 1.70 1.7 - 2.8 mg/dL 04/08/2018 12:48 EDT [facility] 04/08/2018 12:2 4 EDT 04/08/2018 12:30 EDT Wesley Trinh MD CHEMISTRY & BLOO D GAS ORDERABLES [facility] * (ABNORMAL) COMPREHENSIVE METABOLIC PANEL (CMP) (04/08/2018 12:24 EDT) Pathologist [facility] [place] Albumin % 4.4 3.4 - 4.9 g/dL 04/08/2018 12:48 [facility] ALKALINE PHOSPHATASE - [facility] 75 38 - 126 U/L 04/08/2018 12:48 [facility] BILIRUBIN TOTAL 0.4 0.2 - 1.3 mg/dL 04/08/2018 12:48 [facility] BUN - [facility] 21 10 - 26 mg/dL 04/08/2018 12:48 [facility] CALCIUM - [facility] 9.3 8.5 - 10.5 mg/dL 04/08/2018 12:48 [facility] Chloride 104 96 - 110 mmol/L 04/08/2018 12:48 [facility] CO2 Total 23 22 - 32 mEq/L 04/08/2018 12:48 [facility] CREATININE 0.85 0.52 - 1.04 mg/dL 04/08/2018 12:48 [facility] eGFR >60 04/08/2018 12:48 [facility] Comment: Chronic renal impairment is defined as GFR <60 Multiply result by 1.210 for patients. eGFR calculated using the IDMS-traceable MDRD Study Equation. ??(effective 07/17/2014) Anion Gap 11 0 - 18 04/08/2018 12:48 EDT [facility] GLUCOSE - [facility] 103(H) 70 - 100 mg/dL 04/08/2018 12:48 EDT [facility] Potassium 3.8 3.5 - 5.0 mEq/L 04/08/2018 12:48 EDT [facility] Sodium 138 136 - 145 mEq/L 04/08/2018 12:48 EDT [facility] TOTAL PROTEIN - [facility] 7.1 6.2 - 8.2 gm/dL 04/08/2018 12:48 EDT [facility] SGOT/AST - [facility] 20 14 - 36 U/L 04/08/2018 12:48 T [facility] SGPT/ALT - [facility] 36 9 - 52 U/L 8 12:48 EDT [facility] 04/08/2018 12:2 4 EDT 04/08/2018 12:30 EDT Wesley Trinh MD CHEMISTRY & BLOO D GAS ORDERABLES Performing Organization Address [facility]/ZIP Co de Phone Number [facility] * TROPONIN I (04/08/2018 12:24 EDT) Troponin I (ng/mL) <0.012 0.000 - 0.034 ng/mL 04/08/2018 13:00 EDT [facility] Comment: Interpretation comments: ??Cutoff for [...] MD CHEMISTRY & BLOO D GAS ORDERABLES [facility] * COMPLETE BLOOD COUNT WITH DIFFERENTIAL (AUTO) (04/08/2018 12:24 EDT) ABSOLUTE NEUTROPHIL COUN - [facility] 5.55 1.7 - 7.0 10e3/ul 04/08/2018 12:36 [facility] BASO # - [facility] 0.02 0.0 - 0.3 10e3/uL 04/08/2018 12:36 [facility] BASO % - [facility] 0 0 - 2 % 04/08/2018 12:36 [facility] EOS # - [facility] 0.18 0.05 - 0.5 10e3/uL 04/08/2018 12:36 [facility] EOS % - [facility] 2 0 - 5 % 04/08/2018 12:36 [facility] GRAN % - [facility] 65 40 - 80 % 04/08/2018 12:36 [facility] HEMATOCRIT - [facility] 39.7 34.0 - 47.0 % 04/08/2018 12:36 [facility] HEMOGLOBIN - [facility] 13.5 11.2 - 15.7 g/dl 04/08/2018 12:36 [facility] IG# - [facility] 0.02 0 - 0.07 10e3/uL 04/08/2018 12:36 [facility] IG% - [facility] 0.2 0 - 0.9 % 04/08/2018 12:36 [facility] LYMPH # - [facility] 2.22 0.9 - 2.9 10e3/uL 04/08/2018 12:36 [facility] LYMPH% - [facility] 26 20 - 40 % 04/08/2018 12:36 [facility] MEAN CORPUSCULAR HGB - [facility] 28.2 26 - 34 pg 04/08/2018 12:36 [facility] MEAN CORPUSCULAR HGB CONC - [facility] 34.0 31 - 36 g/dL 04/08/2018 12:36 [facility] MEAN CELL VOLUME - [facility] 82.9 77 - 100 fl 04/08/2018 12:36 [facility] MONO # - [facility] 0.60 0.3 - 0.9 10e3/uL 04/08/2018 12:36 EDT [facility] MONO% - [facility] 7 0 - 12 % 04/08/2018 12:36 EDT [facility] PLATELET COUNT 252 150 - 400 10e3/ul 04/08/2018 12:36 EDT [facility] RED BLOOD COUNT - [facility] 4.79 3.8 - 5.2 10e6/ul 04/08/2018 12:36 EDT [facility] RED CELL DISTRI WIDTH - [facility] 14.1 11.8 - 15.6 % 04/08/2018 12:36 EDT [facility] WHITE BLOOD COUNT - [facility] 8.6 3.5 - 10.5 10e3/ul 04/08/2018 12:36 EDT [facility] 04/08/2018 12:2 4 EDT 04/08/2018 12:30 EDT Wesley Trinh MD HEMATOLOGY & PF4 ORDERABLES [facility] documented in this encounter Visit Diagnoses Not on filedocumented in this encounter Care Teams Patient Accounts Clerk Relationship Specialty Start Date End Date Pretty Avery MD [address] [place] [address] PCP - General 06/05/10 documented as of this encounter
--- OUTSIDE RECORDS SUMMARY | 2024-04-06 11:15 | XMS_ITS | Encounter Summary ---
Author Organization [facility] Address [address] [place] [address] Care Team Providers Care Glaze Sprayer Name Role Phone Unavailable Primary Care Provider Unavailabl e Encounter Details Date Type Department Care Team (Late st Contact Info) Description 05/15/2010 Results Only [facility] Laboratory Services - [facility] ([facility] [address] [place], [place] [id number] Jake Sabillon FNP [address] [place], [place] [id number] Social History Tobacco Use Types Packs/Day Years [...] ? EZEQUIEL THOMAS ? Accession #: ? [id number] ? : ? 1965 (Age: 45) ??F [...] [facility] 05/15/2010 05/17/2010 Jake Sabillon WORKFLOW DEVELOPER PATHOLOGY ORDERABLES [facility] [address] [place] [address] documented in this encounter Visit Diagnoses Not on filedocumented in this encounter
--- OUTSIDE RECORDS SUMMARY | 2024-04-06 11:15 | XMS_ITS | Encounter Summary ---
Author Organization [facility] Address [address] [place] [address] Care Team Providers Care Insurance Attorney Name Role Phone Unavailable Primary Care Provider Unavailabl e Encounter Details Date Type Department Care Team (Late st Contact Info) Description 12/31/2007 14:07 EDT Hospital Encounter [address] [address] Skip Alcocer MD [address] [place] [address], [facility] [address] [place] [address] Discharge Disposition: Auto Discharge Social History Tobacco [...] 10:19 EST CYTOPATHOLOGY Routine 08/28/2008 0:00 EST DETENTION VIABILITY 12/31/2007 16:20 EDT DETENTION CHORIONIC BARRETO SAMPLING 12/31/2007 15:40 EDT documented [...] GE NERAL ORDERABLES Performing Organization Address City/State/[facility] Co de Phone Number [facility] [address] [place] [address] * CYTOPATHOLOGY (08/28/2008 0:00 EST) Pathology Report: CYTOPATHOLOGY REPORT ? Reports generated via electronic interface contain original data; ? however they are lacking the format of the original report. ? Caution should be taken when reading/interpreti ng unformatted reports. ? Name: ? EZEQUIEL THOMAS ? Accession #: ? [id number] ? : ? 1965 (Age: 43) ??F ?Collect Date: ? 08/28/2008 ? Location: ? [facility] ? Receive Date: ? 08/30/2008 ? [facility] ? Copy to: ? Specimen/Source: ?Pap Test, [...] significance (ASC-US). ? EDUCATIONAL NOTES/RECOMMENDATI ONS ? [facility] recommends following the 2006 Consensus Guidelines for the Management of Women with Abnormal Cervical Cancer Screening Tests (JLGTD, ? 2007;11(4):201-222 ). ??Consensus guidelines are available online at ? www.ASCCP.org. ? Document reviewed and electronically signed by: ? MARIAA Beverly PLOTZ MD ? Report Date: ??09/04/2008 10:20 ? End of Report ? [facility] 08/28/2008 08/30/2008 Fred Reece [facility] ORDERAB LES Performing Organization Address City/State/[facility] Co de Phone Number [facility] [address] [place] [address] * DETENTION VIABILITY (12/31/2007 16:20 EDT) Anatomical Region Laterality Modality Other 12/31/2007 16:2 0 EDT Narrative 02/25/2009 13:06 EDT first trimester prior to cvs Please refer to the separate [facility] report. ??Contact Maternal Medicine. Procedure Note Magdalena Strickland MD - 02/25/2009 first trimester prior to cvs Please refer to the separate [facility] report. Contact Maternal Medicine. Magdalena Strickland MD [facility] ORDERABLE S * DETENTION CHORIONIC BARRETO SAMPLING (12/31/2007 15:40 EDT) Anatomical Region Laterality Modality Other 12/31/2007 15:4 0 EDT Narrative 02/25/2009 10:52 EDT [facility] WITH DR ALCOCER Please refer to the separate [facility] report. ??Contact Maternal Medicine. Procedure Note Skip Alcocer MD - 02/25/2009 [facility] WITH DR ALCOCER Please refer to the separate [facility] report. Contact Maternal Medicine. Skip Reyes MD [facility] ORDERA BLES documented in this encounter Visit Diagnoses Not on filedocumented in this encounter
--- OUTSIDE RECORDS SUMMARY | 2024-04-06 11:15 | XMS_ITS | Clinical Summary ---
Author Organization [facility] Address [address] [place] [address] Care Team Providers Care Blender Name Role Phone Pretty Avery MD Primary Care Provider [phone] Allergies No known active allergies Medications Medication [...] Date NSTEMI (non-ST elevated myocardial infarction) ( [facility]) 03/30/2014 Surgical History Surgery Date Site/Laterality Comments [...] Advance Directives For more information, please contact: [phone] * Full Code (Latest Code Status on File) Date Activated Date Inactivated Comments 12/15/2014 9:53 12/15/2014 18:00 Question Answer Comments Reason for decision includes: Full code consistent with overall plan of care Who participated in the discussion? Patient * Full Code Date Activated Date Inactivated Comments 03/30/2014 20:42 04/01/2014 17:36 Care Teams Blender Relationship Specialty Start Date End Date Pretty Avery MD [address] [place] [address] [facility] - General 06/05/10
--- OUTSIDE RECORDS SUMMARY | 2024-04-06 11:15 | XMS_ITS | Encounter Summary ---
Author Organization [facility] Address [address] [place] [address] Care Team Providers Care Knitting Machine Fixer Head Name Role Phone Pretty Avery MD Primary Care Provider [phone] Encounter Details Date Type Department Care Team (Late st Contact Info) Description 03/07/2022 Lab Requisition [facility] Pathology & Laboratory Medicine - [address] [address] Outr Resulting Lab, Provider Social History Tobacco [...] Priority Date/Time Associated Diagnosis Comments ZZCOVID-19 TEST [facility] PCR Today 03/06/2022 16:00 EDT COVID-19 TESTING Routine 03/06/2022 16:0 0 EDT documented in this encounter Results * COVID-19 TEST [facility] PCR (03/06/2022 16:00 EDT) Swab 03/06/2022 16:0 0 EDT 03/07/2022 22:03 EDT Provider Outr Resulting Lab MICROBIOLOGY - GENERAL ORDERABLES Performing Organization Address City/[facility]/ZIP Co de Phone Number [facility] [address] [place] [address] * COVID-19 TESTING (03/06/2022 16:00 EDT) COVID-19 rt-PCR Result Negative Negative 03/08/2022 12:05 EDT [facility] Comment: This test has not [...] performed using the camille SARS-CoV-2 assay ([employer] on the Camille 6800 System Performing Lab [place] [address] [facility] 03/08/2022 12:05 EDT [facility] Swab 03/06/2022 16:0 0 EDT 03/07/2022 22:03 EDT Provider Outr Resulting Lab MICROBIOLOGY - GENERAL ORDERABLES Performing Organization Address City/[facility]/ZIP Co de Phone Number [facility] [address] [place] [address] documented in this encounter Visit Diagnoses Not on filedocumented in this encounter Care Teams Knitting Machine Fixer Head Relationship Specialty Start Date End Date Pretty Avery MD [address] [place] [phone] PCP - General 06/05/10 documented as of this encounter
--- OUTSIDE RECORDS SUMMARY | 2024-04-06 11:15 | XMS_ITS | Encounter Summary ---
Author Organization [facility] Address [address] [place] [address] Care Team Providers Care Slate Trimmer Name Role Phone Pretty Avery MD Primary Care Provider [phone] Encounter Details Date Type Department Care Team (Late st Contact Info) Description 08/23/2020 Lab Requisition [facility] Pathology & [place] [address] Outr Resulting Lab, Provider Social History Tobacco [...] rt-PCR Result NEGATIVE Negative 08/25/2020 8:37 EST [facility] Comment: 2019-novel Coronavirus (2019-nCoV) not [...] in accordance with CLIA regulations, [employer] (CAP) guidelines (Dec 01, 2019), and FDA guidance (Nov 12, 2019). This test is only for use under the Food and Drug Administration's Emergency Use Authorization. Swab ENTIRE NASOPHARYNX / Unknown 08/22/2020 13:10 EST 08/23/2020 15:58 EST Provider Outr Resulting Lab MICROBIOLOGY - GENERAL ORDERABLES [facility] [place], [place] * COVID-19 TESTING (08/22/2020 13:10 EST) COVID-19 rt-PCR Result NEGATIVE Negative 08/25/2020 10:01 EST [facility] Comment: 2019-novel Coronavirus (2019-nCoV) not [...] in accordance with CLIA regulations, [employer] (CAP) guidelines (Dec 01, 2019), and FDA guidance (Nov 12, 2019). This test is only for use under the Food and Drug Administration's Emergency Use Authorization. Performing Lab [facility] 08/25/2020 10:01 EST [facility] Swab 08/22/2020 13:1 0 EST 08/23/2020 15:58 EST Provider Outr Resulting Lab MICROBIOLOGY - GENERAL ORDERABLES [facility] [address] [place] [address] [facility] [place], [place] documented in this encounter Visit Diagnoses Not on filedocumented in this encounter Care Teams Slate Trimmer Relationship Specialty Start Date End Date Pretty Avery MD [address] [place] [address] PCP - General 06/05/10 documented as of this encounter
--- OUTSIDE RECORDS SUMMARY | 2024-04-06 11:15 | XMS_ITS | Encounter Summary ---
Author Organization [facility] Address [address] [place] [address] Care Team Providers Care Wind Turbine Design Engineer Name Role Phone Pretty Avery MD Primary Care Provider [phone] Encounter Details Date Type Department Care Team (Late st Contact Info) Description 06/18/2018 Results Only [facility] [phone] Marietta Mauricio, DO [address] [place] [address] Social History Tobacco Use Types [...] ? EZEQUIEL THOMAS ? Accession #: ? [id number] ? : ? 1965 (Age: 53) ??F [...] Meyers 06/19/2018 9:42 AM End of Report [facility] 06/18/2018 16:1 9 EDT 06/18/2018 16:19 EDT Marietta Mauricio DO PATHOLOGY ORDERABLES [facility] [address] [place] [address] documented in this encounter Visit Diagnoses Not on filedocumented in this encounter Care Teams Wind Turbine Design Engineer Relationship Specialty Start Date End Date Pretty Avery MD [address] [place] [address] PCP - General 06/05/10 documented as of this encounter
--- OUTSIDE RECORDS SUMMARY | 2024-04-06 11:15 | XMS_ITS | Encounter Summary ---
Author Organization [facility] Address [address] [place] [address] Care Team Providers Care Jd Edwards Name Role Phone Unavailable Primary Care Provider Unavailabl e Encounter Details Date Type Department Care Team (Late st Contact Info) Description 12/14/2006 Results Only [facility] [address] [place] [address] Jake Sabillon FNP [address] [place], [place] [address] Social History Tobacco Use Types Packs/Day Years [...] ? EZEQUIEL THOMAS ? Accession #: ? [id number] : ? 1965 (Age: 41) ??F ?Collect Date: ? 12/14/2006 Location: ? [facility] ? Receive Date: ? 12/16/2006 Provider: ?JAKE SABILLON TECHNICAL SUPPORT ANALYST Copy to: ? Specimen/Source: ?ThinPrep Pap Test, Cervix/Endocervix, processed on [employer] ThinPrep Imaging System, with manual evaluation Last [...] Jake GARCÍAP PATHOLOGY ORDERABLES [facility] [address] [place] [address] documented in this encounter Visit Diagnoses Not on filedocumented in this encounter
--- OUTSIDE RECORDS SUMMARY | 2024-04-06 11:15 | XMS_ITS | Encounter Summary ---
Author Organization [facility] Address [address] [place] [address] Care Team Providers Care Ict Business Development Manager Name Role Phone Unavailable Primary Care Provider Unavailabl e Encounter Details Date Type Department Care Team (Late st Contact Info) Description 04/29/2010 Results Only [address] [address] Pretty Avery MD [address] [place] [phone] Social History Tobacco Use Types Packs/Day Years [...] ? EZEQUIEL THOMAS ? Accession #: ? [id number] ? : ? 1965 (Age: 45) ??F [...] Avery MD PATHOLOGY ORDERABLES [facility] [address] [place] [address] documented in this encounter Visit Diagnoses Not on filedocumented in this encounter
--- OUTSIDE RECORDS SUMMARY | 2024-04-06 11:16 | XMS_ITS | Encounter Summary ---
[place] [address] Care Team Providers Care Lacer And Tier Name Role Phone None Primary Care Provider Unavailabl e Encounter Details Date Type Department Care Team (Late st Contact Info) Description 03/27/2024 Telephone Cardiology at [address] [phone] Fidel Yanes PA [facility] [place] [address] Social History Tobacco Use Types Packs/Day Years Used Date Smoking Tobacco: Former Smokeless Tobacco: Never Alcohol Use Standard Drinks/Week Comments Yes 14 (1 standard drink = 0.6 oz pu re alcohol) [facility] Utilities Answer Date Recorded In the [...] any time in the past 12 m [facility], were you homeless or living in a longterm (including now)? No 03/21/2024 IPV Inpatient Questions [...] 03/27/2024 10:39 AM EDT Received page from paper cutting machine operator. Isa called in from home [...] 10:40 AM EDT Office Visit Cardiology at [address] [place] [address] Herlinda Weaver [place] [facility] [place] [address] documented as of this encounter Visit Diagnoses Not on filedocumented in this encounter Care Teams Lacer And Tier Relationship Specialty Start Date End Date None None PCP - General 03/19/24 documented as of this encounter
--- OUTSIDE RECORDS SUMMARY | 2024-04-06 11:16 | XMS_ITS | Encounter Summary ---
Author Organization [facility], Located Within [facility] [place] [address] Care Team Providers Care Development Editor Name Role Phone None Primary Care Provider Unavailabl e Reason for Visit * Auth/Cert (Routine) Specialty Diagnoses / Procedures Referred By Contac t Referred To Contact Diagnoses Acute ST elevation myocardial infarction (STEMI) due to occlusion of left anterior descending (LAD) coronary artery stemi Procedures EMERGENCY IPI Destin Ambrosio MD [facility] [place] [address] [facility] Referral ID Status Reason Start Date Expiration Date Visits Re quested Visits Authorized [id number] 1 1 Encounter Details Date Type Department Care Team (Late st Contact Info) Description 03/19/2024 1:05 AM EDT - 03/19/2024 2:06 AM EDT Surgery [place] [address] Ramo Roy MD [facility] [place] [address] CARDIAC CATHETERIZATION Social History Tobacco Use Types Packs/Day Years Used Date Smoking Tobacco: Former Smokeless Tobacco: Never Alcohol Use Standard Drinks/Week Comments Yes 14 (1 standard drink = 0.6 oz pu re alcohol) [facility] Inpatient Questions Answer Date Recorded Does [...] but does seem to have resulted in acute 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 Patient briefly requiring BiPAP. Patient received IV lasix 40 x1 in CVCC with adequate output and patient appearing euvolemic since. Patient also reported previous avoidance of medications and preferring to manage with lifestyle modifications only. Di scussed importance of new medications, especially compliance with [...] given mildly reduced LVEF [ ] f/u [facility] cardiology scheduled. [facility] cardiology referral sent Inpatient Provider Contact Information: Kathryn Walker MD [phone] For questions regarding this document or issues relating to this hospitalization on the Medical Service, please contact your inpatient physician through the [facility] Dietary Service Aide . Issues afterhours and on weekends will [...] 03/19/2024 8:37 AM) Result Value WORKSTATION ID [id number] Narrative EXAMINATION: XR CHEST ONE VIEW CLINICAL [...] who have questions please contact the health hospice home care coordinator that requested your imaging first. Cardiac Catheterization (Exam End: 03/19/2024 1:36 AM) Narrative [facility] Cardiac Catheterization/Intervention Report Patient Name: Isa Ro Procedure Date: 03/19/2024 A #: [id number] Primary Physician: Ramo Roy Case #: [id number] File Name: [id number] Catheterization Order Number: [id number] [facility] Construction Equipment Mechanic [facility] Final Report [place], [place] Patient Name: Isa Ro ID#: [id number] : 1965 Procedure Date: March 19, 2024 [...] was designated as ASA Class IV. The [facility] clinical frailty scale is 3: Managing Well. Diagnostic Tests: Prior Coronary Angiography: Prior coronary angiography was performed on 12/15/2014. Electrocardiography: EKG was assessed by ECG. EKG was Abnormal. EKG showed ST Deviation >= 0.5 mm and other abnormality. Medications Prior to Procedure: Aspirin. Indications for Diagnostic Cath: The priority of the diagnostic procedure was Emergent. 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 [...] priority for the procedure was Emergent. The [facility] indication for the procedure was STEMI-Immediate PCI [...] A premounted 3.00 x 08 mm Alberto Olaton (JAHAIRA) was deployed with a maximum inflation pressure of 12 atmospheres. Another stent insertion was accomplished through a 6 Fr. EBU 3.5 guide. A premounted 2.00 x 08 mm Alberto Olaton (JAHAIRA) was deployed. The final outcome was [...] dose administered prior to arrival in the 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 Recommended anti-platelet/anti-thrombotic regimen: Start aspirin 81 mg daily now and continue for indefinitely. Start clopidogrel 75 mg daily now and continue for 12 months then stop. These recommendations are made at the time of the intervention. Patient and provider preferences or a changing clinical situation may require modification of this regimen. Consult [facility] Interventional Cardiology for questions. The 1 year [...] against any medical treatment. Consult http://tools.acc.org/DAPTriskapp/#!/content/calculator/ or [facility] Interventional Cardiology for questions Conclusions: * One [...] decreased and new wall motion abnormalities. Procedure Complete-37044. Image enhancement Definity was used for left [...] LAD in 03/2014, HLD, who presented to [facility] with chest pain. She developed chest pain around 2100 on 03/18 which prompted her to call EMS. She was given 325mg of aspirin and nitroglycerin. On arrival to [facility], she was found to have an EKG suggestive of anterior STEMI for which she was given half dose TNKfor systemic lysis prior to speaking with Dr. Herrera, on-call emergency communications dispatcher at [facility]. 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 Stay on the phone. The emergency nipping machine operator will tell you what to [...] of 8AM-5PM please call the Cardiology Clinic [phone] to speak with a nurse. All other hours please call the Hospital Dietary Service Aide [phone] and ask to speak to the cardiovascular hospitalist on-call. Return to work: One week Follow up Appointments: Doctor Where Phone # Date Time PCP MELECIO Polanco [address] [place] [address] 143 04/04/24 7:55 AM Casino Enforcement Agent Herlinda Weaver PA-C [facility] Cardiology 4A Clinic [phone] 05/09/24 10:40 AM (pleasearrive by 10:20 AM) *A referral has also been placed to [facility] cardiology, though you will need to follow-up with them regarding scheduling appointments at [phone] General Instructions None Future Appointments and Orders Future Appointments and Orders Future Appointments Provider Department Dept Phone 05/09/2024 10:40 AM Herlinda Weaver PA Cardiology at [facility] Arrive at: Donor Processor Area [phone] Future Orders Complete By Expires Referral to Cardiac Rehab [[id number] Custom] As directed Process Instructions: If no progress note charted, please enter Clinical details in comments. Scheduling Instructions: Questions: My question or request is: s/p STEMI- cardiac rehab at [facility] Referral to Cardiology [REF12 Custom] As directed Process Instructions: If no progress note charted, please enter Clinical details in comments. Scheduling Instructions: Questions: My question or request is: s/p STEMI Discharge References/Attachments None Greater than 30 minutes was spent on this discharge including documentation, [id number] time withthe patient, patient education, telephone order supervisor, coordination with pharmacy and other patient care. [...] away. Stay on the phone. The emergency nipping machine operator will tell you what to [...] cardiac rehab has also been placed to [facility]. Call your doctor if: Chest pain, dyspnea, pain or swelling in legs occurs, or for weight gain of 2 pounds overnight or 5pounds in 5 days. If you have non-emergent questions, prior to your follow-up visit call: Thursday-Thursday between the hours of 8AM-5PM please call the Cardiology Clinic [phone] to speak with a nurse. All other hours please call the Hospital Dietary Service Aide [phone] and ask to speak to the cardiovascular hospitalist on-call. Return to work: One week Follow up Appointments: Doctor Where Phone # Date Time PCP MELECIO Polanco [address] [place] [address] 04/04/24 7:55 AM Casino Enforcement Agent Herlinda Weaver PA-C [facility] Cardiology 4A Clinic [phone] 05/09/24 10:40 AM (pleasearrive by 10:20 AM) *A referral has also been placed to [facility] cardiology, though you will need to follow-up with them regarding scheduling appointments at [phone] documented in this encounter Medications at Time [...] agreed to participate in cardiac rehab at [facility] following discharge Review of Systems: Review of [...] to have resulted in 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 I asked [...] Mcbride MD - 03/19/2024 2:50 AM EDT [facility] TeleICU Initial Assessment Note I established audio/visual communication with the patient's room, reviewed the eDH. History and Assessment: 59 yo F transferred from [facility] for a STEMI alert. Received ASA [...] => BiPAP started Following procedure, transferred to [facility] - able to be weaned to [facility] [...] 10:00 PM Hospital to which patient presented: [facility] Hospital to which patient presented= [facility]: ED via EMS Date and Time of [...] Not contraindicated Plan STEMI Alert called: Yes Construction Equipment Mechanic Activated by: Halver Machine Operator Initial Disposition: Admit Construction Equipment Mechanic documented in this encounter H&P Notes * [...] to LAD in 03/2014, HLD,who presented to [facility] with chest pain. She developed chest pain around 2100 on 03/18 which prompted her to call EMS. She was given 325mg of aspirin and nitroglycerin. On arrival to [facility], she was found to have an EKG suggestive of anterior STEMI for which she was given half dose TNK for systemic lysis prior to speaking with Dr. Herrera, on-call emergency communications dispatcher at [facility]. 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 She was also a bit hypercapnic which [...] Cardiopulmonary Resuscitation - Inpatient Ganesh Nguyen MD Halver Machine Operator [id number] documented in this encounter Miscellaneous Notes [...] [facility] [address] [facility] [address] Cardiology, [facility] [address] [facility] [address] Transportation: family or friend will provide Functional [...] 03/21/2024 4:02 PM EDT Patient completed a [place] advance directive. Patient identified her sister Stacia [...] N/A ; Prescription Coverage: Yes Preferred Pharmacy: [facility] [address] [facility] [address] [place], [place] [address]way [address] [facility] [address] [id number] - [place], [place] - [address] [place] [address] [facility] [address] [facility] [id number] [facility] - [place], [place] - [address] [facility] [address] [place] [id number] Advance Care Planning: Attempt Cardiopulmonary Resuscitation - Inpatient <no information> -Advanced Directive: No, need to discuss (RS referral sent for AD discussion) Current Functional Ability: Assistive Person Functional Status Prior to Admission: Independent Home Environment: Others in the home: child(lucian), minor (lives with her 15yo son). Current Living Arrangements: home/apartment/condo. Accessibility Concerns:house with 3 floors and 2 [address]. Current DME: none [address] [facility] [address] Social & Family Supports: All names listed below confirmed with patient as current and correct Extended Emergency Contact Information Primary [facility] [place] [facility] [place] Relation: Mother Current [...] to for AD discussion today. Registered Nurse Weigher And Crusher / Toll Collector will continue to follow patient???s progress and [...] in an outpatient cardiac rehabilitation program at [facility] was discussed. Patient agrees to a referral [...] Operative Note Patient Name: Isa Ro : [id number] MR#: [id number] Case Date: 03/19/2024 Surgeon: Surgeons and Role: [...] 10:40 AM EDT Office Visit Cardiology at [address] [address] Herlinda Weaver [place] [facility] [place] [address] Scheduled Referrals Name Type Priority Associated Diagnoses [...] 5:06 AM EDT) Neutrophils % 71.6 % [facility] Neutr Abs (ANC) 8.34(H) 1.70 - 6.10 x10(3)/mc L [facility] Lymphocytes % 17.4 % [facility] Lymphocytes Abs 2.0 0.9 - 3.2 x10(3)/mc L [facility] Monocytes % 8.2 % [facility] Monocyte Abs 1.0(H) 0.3 - 0.9 x10(3)/mc L [facility] Eosinophils % 2.2 % [facility] Eosinophils Abs 0.3 0.0 - 0.4 x10(3)/mc L [facility] Basophils % 0.3 % [facility] Basophils Abs 0.0 0.0 - 0.1 x10(3)/mc L [facility] Immature Gran % 0.30 % [facility] Comment: Immature granulocytes(IG's)percentage and absolute count will include metamyelocytes, myelocytes, and promyelocytes. Blood smears from CBCs yielding IG's will be scanned manually for concordance. If this scan disagrees with the automated IG or if promyelocytes are noted, a manual differential will be performed. Lesia Gran Abs 0.03 0.00 - 0.04 x10(3)/[facility] Blood 03/22/2024 5:06 AM EDT 03/22/2024 5:12 AM EDT Narrative Resulting Agency Comment Spec In Lab Horace Hancock MD HEMATOLOGY ORDERABLE S [facility] [place] [address] * (ABNORMAL) Hemogram (03/22/2024 5:06 AM EDT) WBC 11.6(H) 4.0 - 9.5 x10(3)/[facility] RBC 4.80 4.00 - 5.21 x10(6)/[facility] Hemoglobin 13.5 11.7 - 15.5 g/dL [facility] Hematocrit 40.3 35.7 - 45.8 % [facility] MCV 84.0 82.6 - 94.[address] [facility] MCH 28.1 27.1 - 32.[address] [facility] MCHC 33.5 31.7 - 35.0 g/dL [facility] Platelets 232 145 - 357 x10(3)/[facility] RDWSD 42.2 37.0 - 46.0 [facility] RDWCV 13.5 11.5 - 14.1 % [facility] MPV 9.7 7.6 - 12.9 [facility] nRBC % Auto 0.0 % [facility] nRBC Abs Auto 0.000 0.000 - 0.000 x10(3)/mcL [facility] Blood 03/22/2024 5:06 AM EDT 03/22/2024 5:12 AM EDT Narrative Resulting Agency Comment Spec In Lab Horace Hancock MD HEMATOLOGY ORDERABLE S [facility] [place] [address] * Basic Metabolic Panel (non-fasting) (03/22/2024 5:06 AM EDT) Glucose Lvl 107 65 - 199 mg/dL [facility] Comment:Diabetes: >=200 mg/d L plus symptoms BUN 18 8 - 18 mg/dL [facility] Creatinine 0.87 0.70 - 1.20 mg/dL [facility] Sodium 138 135 - 145 mmol/L [facility] Potassium 4.1 3.5 - 5.0 mmol/L [facility] Comment: Please note: ??Patients with WBC >100,000 may have falsely elevated Potassium levels. ??For accurate Potassium quantification in these patients send serum separator tube (gold top) for subsequent determinations. ??Contact the Clinical Chemistry Laboratory if there are any questions. Chloride 104 98 - 107 mmol/L [facility] CO2 24 22 - 31 mmol/L [facility] Anion Gap 10 5 - 15 mmol/L [facility] Calcium 9.2 8.5 - 10.5 mg/dL [facility] Estimated GFR 76 >=60 mL/min/1. 73 m?? [facility] Comment: This patient's estimated GFR [...] Hancock MD CHEMISTRY ORDERABLES Performing Organization Address City/[facility]/ZIP Co de Phone Number [facility] [place] [phone] * Magnesium (03/22/2024 5:06 AM EDT) Magnesium 0.90 0.69 - 1.07 mmol/L [facility] Blood 03/22/2024 5:06 AM EDT 03/22/2024 5:12 AM EDT Narrative Resulting Agency Comment Spec In Lab Destin Ambrosio MD CHEMISTRY ORDERABLES Performing Organization Address City/[facility]/ZIP Co de Phone Number [facility] [place] [phone] * (ABNORMAL) Differential, Automated (03/21/2024 2:57 AM EDT) Neutrophils % 63.0 % [facility] Neutr Abs (ANC) 6.70(H) 1.70 - 6.10 x10(3)/mc L [facility] Lymphocytes % 24.9 % [facility] Lymphocytes Abs 2.6 0.9 - 3.2 x10(3)/mc L [facility] Monocytes % 8.7 % [facility] Monocyte Abs 0.9 0.3 - 0.9 x10(3)/mc L [facility] Eosinophils % 2.8 % [facility] Eosinophils Abs 0.3 0.0 - 0.4 x10(3)/mc L [facility] Basophils % 0.3 % [facility] Basophils Abs 0.0 0.0 - 0.1 x10(3)/ L [facility] Immature Gran % 0.30 % [facility] Comment: Immature granulocytes(IG's)percentage and absolute count will include metamyelocytes, myelocytes, and promyelocytes. Blood smears from CBCs yielding IG's will be scanned manually for concordance. If this scan disagrees with the automated IG or if promyelocytes are noted, a manual differential will be performed. Lesia Gran Abs 0.03 0.00 - 0.04 x10(3)/ L [facility] Blood 03/21/2024 2:57 AM EDT 03/21/2024 3:03 AM EDT Narrative Resulting Agency Comment Spec In Lab Horace Hancock MD HEMATOLOGY ORDERABLE S Performing Organization Address City/State/[facility] Co de Phone Number [facility] [place] [address] * (ABNORMAL) Hemogram (03/21/2024 2:57 AM EDT) WBC 10.6(H) 4.0 - 9.5 x10(3)/[facility] RBC 4.54 4.00 - 5.21 x10(6)/[facility] Hemoglobin 12.8 11.7 - 15.5 g/dL [facility] Hematocrit 38.2 35.7 - 45.8 % [facility] MCV 84.1 82.6 - 94.[address] [facility] MCH 28.2 27.1 - 32.[address] [facility] MCHC 33.5 31.7 - 35.0 g/dL [facility] Platelets 242 145 - 357 x10(3)/[facility] RDWSD 42.4 37.0 - 46.0 [facility] RDWCV 13.7 11.5 - 14.1 % [facility] MPV 9.5 7.6 - 12.[address] [facility] nRBC % Auto 0.0 % [facility] nRBC Abs Auto 0.000 0.000 - 0.000 x10(3)/mcL [facility] Blood 03/21/2024 2:57 AM EDT 03/21/2024 3:03 AM EDT Narrative Resulting Agency Comment Spec In Lab Horace Hancock MD HEMATOLOGY ORDERABLE S [facility] [place] [address] * Basic Metabolic Panel (non-fasting) (03/21/2024 2:57 AM EDT) Glucose Lvl 98 65 - 199 mg/dL [facility] Comment:Diabetes: >=200 mg/d L plus symptoms BUN 15 8 - 18 mg/dL [facility] Creatinine 0.82 0.70 - 1.20 mg/dL [facility] Sodium 144 135 - 145 mmol/L [facility] Potassium 4.2 3.5 - 5.0 mmol/L [facility] Comment: Please note: ??Patients with WBC >100,000 may have falsely elevated Potassium levels. ??For accurate Potassium quantification in these patients send serum separator tube (gold top) for subsequent determinations. ??Contact the Clinical Chemistry Laboratory if there are any questions. Chloride 107 98 - 107 mmol/L [facility] CO2 25 22 - 31 mmol/L [facility] Anion Gap 12 5 - 15 mmol/L [facility] Calcium 9.2 8.5 - 10.5 mg/dL [facility] Estimated GFR 82 >=60 mL/min/1. 73 m?? [facility] Comment: This patient's estimated GFR [...] Hancock MD CHEMISTRY ORDERABLES Performing Organization Address City/[facility]/ZIP Co de Phone Number [facility] [place] [address] * Magnesium (03/21/2024 2:57 AM EDT) Magnesium 0.91 0.69 - 1.07 mmol/L [facility] Blood 03/21/2024 2:57 AM EDT 03/21/2024 3:03 AM EDT Narrative Resulting Agency Comment Spec In Lab Destin Ambrosio MD CHEMISTRY ORDERABLES Performing Organization Address [facility] Co de Phone Number [facility] [place] [address] * Metanephrines, Fractionated Free, plasma (03/21/2024 2:57 AM EDT) Normetane Free 0.47 <0.90 nmol/L [facility] Comment: Test Performed by: [facility] - [address] [address] Mass Spectrometry Specialist: Chasity Hernandez Ph.D.; CLIA# [id number] Metanephr Free <0.20 <0.50 nmol/L [facility] Comment: ADDITIONAL INFORMATION This test was developed and its performance characteristics determined by [facility] in a manner consistent with CLIA requirements. This test has not been cleared or approved by the U.S. Food and Drug Administration. Test Performed by: [facility] - [facility] [address] [place] [address] Mass Spectrometry Specialist: Chasity Hernandez Ph.D.; CLIA# [id number] Blood 03/21/2024 2:57 AM EDT 03/21/2024 11:29 AM EDT Narrative Resulting Agency Comment Spec In Lab Horace Hancock MD CHEMISTRY ORDERABLES Performing Organization Address City/[facility]/ZIP Co de Phone Number [facility] [place] [address] * Iron and TIBC (03/20/2024 10:38 AM EDT) Pathologist [facility] Iron 57 30 - 150 mcg/dL [facility] TIBC 278 250 - 450 mcg/dL [facility] Iron Saturation 21 20 - 50 % [facility] Blood Venous Draw / Unknown 03/20/2024 10:38 AM EDT 03/20/2024 10:52 AM EDT Narrative Resulting Agency Comment Spec In Lab Horace Hancock MD CHEMISTRY ORDERABLES Performing Organization Address City/[facility]/ZIP Co de Phone Number [facility] [place] [address] * (ABNORMAL) Differential, Automated (03/20/2024 10:38 AM EDT) [facility] Neutrophils % 73.1 % [facility] Neutr Abs (ANC) 9.60(H) 1.70 - 6.10 x10(3)/mc L [facility] Lymphocytes % 17.3 % [facility] Lymphocytes Abs 2.3 0.9 - 3.2 x10(3)/mc L [facility] Monocytes % 7.5 % [facility] Monocyte Abs 1.0(H) 0.3 - 0.9 x10(3)/mc L [facility] Eosinophils % 1.5 % [facility] Eosinophils Abs 0.2 0.0 - 0.4 x10(3)/[facility] Basophils % 0.3 % [facility] Basophils Abs 0.0 0.0 - 0.1 x10(3)/[facility] Immature Gran % 0.30 % [facility] Comment: Immature granulocytes(IG's)percentage and absolute count will include metamyelocytes, myelocytes, and promyelocytes. Blood smears from CBCs yielding IG's will be scanned manually for concordance. If this scan disagrees with the automated IG or if promyelocytes are noted, a manual differential will be performed. Lesia Gran Abs 0.04 0.00 - 0.04 x10(3)/[facility] Blood 03/20/2024 10:3 8 AM EDT 03/20/2024 10:47 AM EDT Narrative Resulting Agency Comment Spec In Lab Horace Hancock MD HEMATOLOGY ORDERABLE S [facility] [place] [address] * (ABNORMAL) Hemogram (03/20/2024 10:38 AM EDT) WBC 13.2(H) 4.0 - 9.5 x10(3)/[facility] RBC 4.66 4.00 - 5.21 x10(6)/[facility] Hemoglobin 13.0 11.7 - 15.5 g/dL [facility] Hematocrit 38.7 35.7 - 45.8 % [facility] MCV 83.0 82.6 - 94.[address] [facility] MCH 27.9 27.1 - 32.[address] [facility] MCHC 33.6 31.7 - 35.0 g/dL [facility] Platelets 238 145 - 357 x10(3)/[facility] RDWSD 41.7 37.0 - 46.[address] [facility] RDWCV 13.8 11.5 - 14.1 % [facility] MPV 9.8 7.6 - 12.[address] [facility] nRBC % Auto 0.0 % [facility] nRBC Abs Auto 0.000 0.000 - 0.000 x10(3)/mcL [facility] Blood 03/20/2024 10:3 8 AM EDT 03/20/2024 10:47 AM EDT Narrative Resulting Agency Comment Spec In Lab Horace Hancock MD HEMATOLOGY ORDERABLE S Performing Organization Address City/[facility]/ZIP Co de Phone Number [facility] [place] [address] * Magnesium (03/20/2024 10:38 AM EDT) Magnesium 0.88 0.69 - 1.07 mmol/L [facility] Blood 03/20/2024 10:3 8 AM EDT 03/20/2024 10:47 AM EDT Narrative Resulting Agency Comment Spec In Lab Horace Hancock MD CHEMISTRY ORDERABLES Performing Organization Address City/[facility]/ZIP Co de Phone Number [facility] [place] [address] * Basic Metabolic Panel (non-fasting) (03/20/2024 10:38 AM EDT) Glucose Lvl 108 65 - 199 mg/dL [facility] Comment:Diabetes: >=200 mg/d L plus symptoms BUN 11 8 - 18 mg/dL [facility] Creatinine 0.82 0.70 - 1.20 mg/dL [facility] Sodium 137 135 - 145 mmol/L [facility] Potassium 4.3 3.5 - 5.0 mmol/L [facility] Comment: Please note: ??Patients with WBC >100,000 may have falsely elevated Potassium levels. ??For accurate Potassium quantification in these patients send serum separator tube (gold top) for subsequent determinations. ??Contact the Clinical Chemistry Laboratory if there are any questions. Chloride 101 98 - 107 mmol/L [facility] CO2 22 22 - 31 mmol/L [facility] Anion Gap 14 5 - 15 mmol/L [facility] Calcium 9.0 8.5 - 10.5 mg/dL [facility] Estimated GFR 82 >=60 mL/min/1. 73 m?? [facility] Comment: This patient's estimated GFR [...] MD CHEMISTRY ORDERABLES Performing Organization Address [facility]/ZIP Co de Phone Number [facility] [place] [address] * Magnesium (03/19/2024 11:01 PM EDT) Magnesium 0.96 0.69 - 1.07 mmol/L [facility] Blood Venous Draw / Unknown 03/19/2024 11:01 PM EDT 03/19/2024 11:06 PM EDT Narrative Resulting Agency Comment Spec In Lab Horace Hancock MD CHEMISTRY ORDERABLES Performing Organization Address City/[facility]/ZIP Co de Phone Number [facility] [place] [address] * (ABNORMAL) Troponin (03/19/2024 11:01 PM EDT) Troponin-T HS 2,406(H) <=14 ng/L [facility] Comment: This patient's troponin T [...] troponin value can be found in the [facility] Laboratory Test Catalog Troponin - [facility] Laboratory Test Catalog Reference: Fourth [place] Definition of Myocardial Infarction. Journal of the [place] [employer] 2018;72:8036-4582 Blood 03/19/2024 11:0 1 PM EDT 03/19/2024 11:05 PM EDT Narrative Resulting Agency Comment Spec In Lab Franky Mead MD CHEMISTRY ORDERABLE S [facility] [place] [address] * (ABNORMAL) Troponin (03/19/2024 8:40 PM EDT) Troponin-T HS 2,586(H) <=14 ng/L [facility] Comment: This patient's troponin T [...] troponin value can be found in the [facility] Laboratory Test Catalog Troponin - [facility] Laboratory Test Catalog Reference: Fourth [place] Definition of Myocardial Infarction. Journal of the [place] [employer] 2018;72:3785-5628 Blood 03/19/2024 8:40 PM EDT 03/19/2024 8:45 PM EDT Narrative Resulting Agency Comment Spec In Lab Ganesh Nguyen MD CHEMISTRY ORDERAB LES [facility] [place] [address] * EKG 12 Lead (03/19/2024 8:32 PM EDT) Ventricular rate 70 BPM MUSE SYSTEM Atrial Rate 70 BPM MUSE SYSTEM P-R Interval 158 ms MUSE SYSTEM QRS Duration 78 ms MUSE SYSTEM Q-T Interval 470 ms MUSE SYSTEM QTC Calculated (Bezet) 507 ms MUSE SYSTEM Calculated P [place] 62 degrees MUSE SYSTEM Calculated R [place] 42 degrees MUSE SYSTEM Calculated T [place] -158 degrees MUSE SYSTEM INTERPRETATION Normal sinus rhythm Poor R wave progression T wave abnormality, consider lateral ischemia Prolonged QT Abnormal ECG When compared with ECG of 19-MAR-2024 17:27, No significant change was found Confirmed by MD Hebert, Destin ([id number]) on 03/23/2024 8:10:58 AM MUSE SYSTEM 03/19/2024 [...] (Bezet) 496 ms MUSE SYSTEM Calculated P [place] 80 degrees MUSE SYSTEM Calculated R [place] 87 degrees MUSE SYSTEM Calculated T [place] -96 degrees MUSE SYSTEM INTERPRETATION Normal sinus rhythm T wave abnormality, consider lateral ischemia Prolonged QT Abnormal ECG When compared with ECG of 19-MAR-2024 02:23, Non-specific change in ST segment in Anterior leads T wave inversion more evident in Inferior leads T wave inversion now evident in Anterolateral leads Confirmed by MD Ambrosio David ([id number]) on 03/23/2024 8:10:45 AM MUSE SYSTEM 03/19/2024 5:27 PM EDT 03/23/2024 8:10 AM EDT Unknown ECG ORDERABLES MUSE SYSTEM * (ABNORMAL) Troponin (03/19/2024 2:45 PM EDT) Pathologist [facility] Troponin-T HS 3,792(H) <=14 ng/L [facility] Comment: This patient's troponin T [...] troponin value can be found in the [facility] Laboratory Test Catalog Troponin - [facility] Laboratory Test Catalog Reference: Fourth [place] Definition of Myocardial Infarction. Journal of the [place] [employer] 2018;72:5829-6292 Blood 03/19/2024 2:45 PM EDT 03/19/2024 2:54 PM EDT Narrative Resulting Agency Comment Spec In Lab Horace Hancock MD CHEMISTRY ORDERABLES [facility] [place] [address] * ECHO COMPLETE W CONTRAST (03/19/2024 10:53 AM EDT) Anatomical Region Laterality Modality Cardiac Other 03/19/2024 9:03 AM EDT Narrative 03/19/2024 12:12 PM EDT [address] [place] [address] ? Echocardiogram Report Name: ISA RO ?Study Date: 03/19/2024 09:03 AMBP: 129/68 mmHg ? Patient Location: 4A : 1965 ? Height: 158 cm ? Account: [id number] Age: 59 yrs ? Weight: 57 kg Gender: Female ?BSA: 1.6 m2 Ordering Physician: GANESH NGUYEN Referring Physician: GANESH NGUYEN Performed By: PEREZ Carlos Reason For Study: STEMI involving LAD Exam Location: [facility]. Interpretation Summary Normal left ventricle size with mildly reduced LV function. LV ejection fraction 49%. LAD territory wall motion abnormality, predominantly involving the LV apex. No LV thrombus visualized with echo contrast. Normal right ventricle. No significant valvular abnormalities. Compared with prior echo dated 08/28/23, LV function has now decreased and new wall motion abnormalities. Procedure Complete-[id number]. Image enhancement Definity was used for left [...] Procedure Note Destin Ambrosio MD - 03/19/[address] [place] [address] Echocardiogram Report Name: ISA RO Study Date: 409:03 AMBP: 129/68 mmHg Patient Location: : 1965 Height: 158 cm Account: [id number] Age: 59 yrs Weight: 57 kg Gender: Female BSA: 1.6 m2 Ordering Physician: GANESH NGUYEN Referring Physician: GANESH NGUYEN Performed By: PEREZ Carlos Reason For Study: STEMI involving LAD Exam Location: [facility]. Interpretation Summary Normal left ventricle size with mildly reduced LV function. LV ejectionfraction 49%. LAD territory wall motion abnormality, predominantly involving the LVapex. No LV thrombus visualized with echo contrast. Normal right ventricle. No significant valvular abnormalities. Compared with prior echo dated 08/28/23, LV function has now decreased andnew wall motion abnormalities. Procedure Complete-[id number]. Image enhancement Definity was used for left [...] Chest One View (03/19/2024 8:37 AM EDT) Rosum Signature WORKSTATION ID [id number] RAD Anatomical Region Laterality Modality Chest N/A [...] who have questions please contact the health hospice home care coordinator that requested your imaging first. ? Electronically signed by: Isa Whitley MD, [facility] ??([phone]), at 03/19/2024 10:09 AM Narrative 03/19/2024 10:09 [...] patients who have questions please contactthe health hospice home care coordinator that requested your imaging first. Electronically signed by: Isa Whitley MD, [facility]([phone]), at 03/19/2024 10:09 AM Delores Jett MD IMG DX ORDERABLES * Hemoglobin A1c (03/19/2024 5:25 AM EDT) Hemoglobin A1C 5.6 4.3 - 5.6 % [facility] Comment: Reference Range: 4.3 - [...] Mellitus, Diabetes Care 2013; 36: Suppl. 1, Y88-84 Est Avg Gluc 114 mg/dL [facility] Blood Venous Draw / Unknown 03/19/2024 5:25 AM EDT 03/19/2024 3:52 PM EDT Narrative Resulting Agency Comment Spec In Lab Horace Hancock MD CHEMISTRY ORDERABLES [facility] [place] [id number] * (ABNORMAL) Differential, Automated (03/19/2024 5:25 AM EDT) Neutrophils % 90.0 % [facility] Neutr Abs (ANC) 16.73(H) 1.70 - 6.10 x10(3)/ L [facility] Lymphocytes % 5.2 % [facility] Lymphocytes Abs 1.0 0.9 - 3.2 x10(3)/ L [facility] Monocytes % 4.2 % [facility] Monocyte Abs 0.8 0.3 - 0.9 x10(3)/ L [facility] Eosinophils % 0.0 % [facility] Eosinophils Abs 0.0 0.0 - 0.4 x10(3)/[facility] Basophils % 0.2 % [facility] Basophils Abs 0.0 0.0 - 0.1 x10(3)/mc L [facility] Immature Gran % 0.40 % [facility] Comment: Immature granulocytes(IG's)percentage and absolute count will include metamyelocytes, myelocytes, and promyelocytes. Blood smears from CBCs yielding IG's will be scanned manually for concordance. If this scan disagrees with the automated IG or if promyelocytes are noted, a manual differential will be performed. Lesia Gran Abs 0.08(H) 0.00 - 0.04 x10(3)/mc L [facility] Blood 03/19/2024 5:25 AM EDT 03/19/2024 5:34 AM EDT Narrative Resulting Agency Comment Spec In Lab Ganesh Nguyen MD HEMATOLOGY ORDERA BLES Performing Organization Address City/[facility]/ZIP Co de Phone Number [facility] [place] [address] * (ABNORMAL) Hemogram (03/19/2024 5:25 AM EDT) WBC 18.6(H) 4.0 - 9.5 x10(3)/[facility] RBC 4.92 4.00 - 5.21 x10(6)/[facility] Hemoglobin 13.7 11.7 - 15.5 g/dL [facility] Hematocrit 40.6 35.7 - 45.8 % [facility] MCV 82.5(L) 82.6 - 94.4 [facility] MCH 27.8 27.1 - 32.[address] [facility] MCHC 33.7 31.7 - 35.0 g/dL [facility] Platelets 285 145 - 357 x10(3)/[facility] RDWSD 41.1 37.0 - 46.0 [facility] RDWCV 13.6 11.5 - 14.1 % [facility] MPV 9.5 7.6 - 12.9 [facility] nRBC % Auto 0.0 % [facility] nRBC Abs Auto 0.000 0.000 - 0.000 x10(3)/[facility] Blood 03/19/2024 5:25 AM EDT 03/19/2024 5:34 AM EDT Narrative Resulting Agency Comment Spec In Lab Ganesh Nguyen MD HEMATOLOGY ORDERA BLES [facility] [place] [address] * Lipid Panel (Reflex Direct LDL) (03/19/2024 5:25 AM EDT) Chol, Total 324 mg/dL [facility] Comment: Desirable: ? <200 mg/dL Borderline High: 200-239 mg/dL Higher: ?>jv=348 mg/dL Triglycerides 200 mg/dL [facility] Comment: Normal: ?<150 mg/dL Borderline High: 150-199 mg/dL High: ?200-499 mg/dL Very High: ? >rh=990 mg/dL HDL 68 mg/dL [facility] Comment: Females: High Risk: <50 mg/dL Males: High Risk: <40 mg/dL LDL Cholesterol 216 mg/dL [facility] Comment: Desirable: ? <100 mg/dL Above Desirable: 100-129 mg/dL Borderline High: 130-159 mg/dL High: ?160-189 mg/dL Very High: ? >ri=937 mg/dL Lipid Interpretation See Note [facility] Comment: It is important to [...] even lower. ACC/AHA Guidelines (most recently Jw winslow al. JACC 06/17/22): For individuals with atherosclerotic cardiovascular disease (ASCVD)or LDL >cq=288 mg/dL, use a high-intensity statin (40-80 mg [...] Lab Ganesh Nguyen MD CHEMISTRY ORDERAB LES [facility] [place] [address] * (ABNORMAL) Troponin (03/19/2024 5:25 AM EDT) Troponin-T HS 1,276(H) <=14 ng/L [facility] Comment: This patient's troponin T [...] troponin value can be found in the [facility] Laboratory Test Catalog Troponin - [facility] Test Catalog Reference: Fourth [place] Definition of Myocardial Infarction. Journal of the [place] [employer] 2018;72:5041-7918 Blood 03/19/2024 5:25 AM EDT 03/19/2024 5:34 AM EDT Narrative Resulting Agency Comment Spec In Lab Ganesh Nguyen MD CHEMISTRY ORDERAB LES Performing Organization Address [facility] Co de Phone Number [facility] [place] [address] * APTT (03/19/2024 5:25 AM EDT) PTT 29 25 - [address] [facility] Comment: The PTT is NOT appropriate for heparin monitoring. Use the Anti-Xa level for heparin monitoring (HEP UFH) or LMWH monitoring (HEP LMW). A PTT less than 37 seconds generally indicates adequate hemostasis. Blood 03/19/2024 5:25 AM EDT 03/19/2024 5:34 AM EDT Narrative Resulting Agency Comment Spec In Lab Ganesh Nguyen MD HEMATOLOGY ORDERA BLES Performing Organization Address [facility] Co de Phone Number [facility] [place] [address] * Prothrombin Time (03/19/2024 5:25 AM EDT) PT 10.9 9.4 - 12.[address] [facility] INR 1.0 [facility] Comment: An INR <2.0 [...] Lab Ganesh Nguyen MD HEMATOLOGY ORDERA BLES [facility] [place] [address] * (ABNORMAL) Comprehensive metabolic panel (non-fasting) (03/19/2024 5:25 AM EDT) Glucose Lvl 181 65 - 199 mg/dL [facility] Comment:Diabetes: >=200 mg/d L plus symptoms BUN 14 8 - 18 mg/dL [facility] Creatinine 0.91 0.70 - 1.20 mg/dL [facility] Sodium 137 135 - 145 mmol/L [facility] Potassium 4.2 3.5 - 5.0 mmol/L [facility] Comment: Please note: ??Patients with WBC >100,000 may have falsely elevated Potassium levels. ??For accurate Potassium quantification in these patients send serum separator tube (gold top) for subsequent determinations. ??Contact the Clinical Chemistry Laboratory if there are any questions. Chloride 100 98 - 107 mmol/L [facility] CO2 22 22 - 31 mmol/L [facility] Anion Gap 15 5 - 15 mmol/L [facility] Calcium 8.7 8.5 - 10.5 mg/dL [facility] Total Protein 7.2 6.1 - 8.0 g/dL [facility] Albumin 4.5 3.2 - 5.2 g/dL [facility] AST 95(H) 0 - 30 unit/L [facility] Comment:result rechecked-bz ALT 31(H) 0 - 30 unit/L [facility] Alk Phos 70 35 - 105 unit/L [facility] Total Bilirubin 0.5 0.2 - 1.3 mg/dL [facility] Estimated GFR 72 >=60 mL/min/1. 73 m?? [facility] Comment: This patient's estimated GFR [...] Lab Ganesh Nguyen MD CHEMISTRY ORDERAB LES [facility] [place] [address] * EKG 12 Lead (03/19/2024 2:23 AM EDT) Ventricular rate 67 BPM MUSE SYSTEM Atrial Rate 67 BPM MUSE SYSTEM P-R Interval 152 ms MUSE SYSTEM QRS Duration 78 ms MUSE SYSTEM Q-T Interval 500 ms MUSE SYSTEM QTC Calculated (Bezet) 528 ms MUSE SYSTEM Calculated P [place] 54 degrees MUSE SYSTEM Calculated R [place] 56 degrees MUSE SYSTEM Calculated T [place] 31 degrees MUSE SYSTEM INTERPRETATION Normal sinus rhythm Prolonged QT Abnormal ECG No previous ECGs available Confirmed by MD Ambrosio David ([id number]) on 03/23/2024 8:10:32 AM MUSE SYSTEM 03/19/2024 2:23 AM EDT 03/23/2024 8:10 AM EDT Ganesh Nguyen MD ECG ORDERABLES MUSE SYSTEM * (ABNORMAL) Differential, Automated (03/19/2024 2:20 AM EDT) Neutrophils % 89.8 % [facility] Neutr Abs (ANC) 15.44(H) 1.70 - 6.10 x10(3)/[facility] Lymphocytes % 6.4 % [facility] Lymphocytes Abs 1.1 0.9 - 3.2 x10(3)/[facility] Monocytes % 2.9 % [facility] Monocyte Abs 0.5 0.3 - 0.9 x10(3)/[facility] Eosinophils % 0.1 % [facility] Eosinophils Abs 0.0 0.0 - 0.4 x10(3)/[facility] Basophils % 0.3 % [facility] Basophils Abs 0.0 0.0 - 0.1 x10(3)/[facility] Immature Gran % 0.50 % [facility] Comment: Immature granulocytes(IG's)percentage and absolute count will include metamyelocytes, myelocytes, and promyelocytes. Blood smears from CBCs yielding IG's will be scanned manually for concordance. If this scan disagrees with the automated IG or if promyelocytes are noted, a manual differential will be performed. Lesia Gran Abs 0.08(H) 0.00 - 0.04 x10(3)/ L [facility] Blood 03/19/2024 2:20 AM EDT 03/19/2024 2:59 AM EDT Narrative Resulting Agency Comment Spec In Lab Ganesh Nguyen MD HEMATOLOGY ORDERA BLES [facility] [place] [address] * (ABNORMAL) Hemogram (03/19/2024 2:20 AM EDT) Pathologist [facility] WBC 17.2(H) 4.0 - 9.5 x10(3)/[facility] RBC 4.70 4.00 - 5.21 x10(6)/[facility] Hemoglobin 13.3 11.7 - 15.5 g/dL [facility] Hematocrit 38.7 35.7 - 45.8 % [facility] MCV 82.3(L) 82.6 - 94.[address] [facility] MCH 28.3 27.1 - 32.[address] [facility] MCHC 34.4 31.7 - 35.0 g/dL [facility] Platelets 281 145 - 357 x10(3)/[facility] RDWSD 41.0 37.0 - 46.0 [facility] RDWCV 13.7 11.5 - 14.1 % [facility] MPV 9.7 7.6 - 12.9 [facility] nRBC % Auto 0.0 % [facility] nRBC Abs Auto 0.000 0.000 - 0.000 x10(3)/[facility] Blood 03/19/2024 2:20 AM EDT 03/19/2024 2:59 AM EDT Narrative Resulting Agency Comment Spec In Lab Ganesh Nguyen MD HEMATOLOGY ORDERA BLES [facility] [place] [address] * (ABNORMAL) Troponin (03/19/2024 2:20 AM EDT) [facility] Troponin-T HS 960(H) <=14 ng/L [facility] Comment: This patient's [...] troponin value can be found in the [facility] Test Catalog Troponin - [facility] Test Catalog Reference: Fourth [place] Definition of Myocardial Infarction. Journal of the [place] [employer] 2018;72:7814-0736 Blood 03/19/2024 2:20 AM EDT 03/19/2024 2:59 AM EDT Narrative Resulting Agency Comment Spec In Lab Ganesh Nguyen MD CHEMISTRY ORDERAB LES Performing Organization Address City/[facility]/ZIP Co de Phone Number [facility] [place] [address] * (ABNORMAL) APTT (03/19/2024 2:20 AM EDT) PTT 123(Criti lewis) 25 - [address] [facility] Comment: Critical Result called by [...] Lab Ganesh Nguyen MD HEMATOLOGY ORDERA BLES [facility] [place] [address] * Prothrombin Time (03/19/2024 2:20 AM EDT) Pathologist [facility] PT 11.7 9.4 - 12.[address] [facility] INR 1.0 [facility] Comment: An INR <2.0 [...] MD HEMATOLOGY ORDERA BLES Performing Organization Address [facility] de Phone Number [facility] [place] [address] * (ABNORMAL) Hepatic Function Panel (03/19/2024 2:20 AM EDT) Pathologist [facility] Total Protein 6.7 6.1 - 8.0 g/dL [facility] Albumin 4.3 3.2 - 5.2 g/dL [facility] AST 49(H) 0 - 30 unit/L [facility] ALT 26 0 - 30 unit/L [facility] Alk Phos 67 35 - 105 unit/L [facility] Total Bilirubin 0.4 0.2 - 1.3 mg/dL [facility] Bili, Direct 0.1 0.0 - 0.3 mg/dL [facility] Blood 03/19/2024 2:20 AM EDT 03/19/2024 2:59 AM EDT Narrative Resulting Agency Comment Spec In Lab Ganesh Nguyen MD CHEMISTRY ORDERAB LES [facility] [place] [address] * (ABNORMAL) pro-Brain Natriuretic Peptide (03/19/2024 2:20 AM EDT) ProBNP 529(H) <=124 pg/mL [facility] Blood 03/19/2024 2:20 AM EDT 03/19/2024 2:59 AM EDT Narrative Resulting Agency Comment Spec In Lab Ganesh Nguyen MD CHEMISTRY ORDERAB LES Performing Organization Address [facility] Co de Phone Number [facility] [place] [address] * Phosphorus (03/19/2024 2:20 AM EDT) Phosphorus 3.8 2.5 - 4.5 mg/dL [facility] Blood 03/19/2024 2:20 AM EDT 03/19/2024 2:59 AM EDT Narrative Resulting Agency Comment Spec In Lab Ganesh Nguyen MD CHEMISTRY ORDERAB LES Performing Organization Address City/[facility] Co de Phone Number [facility] [place] [address] * Magnesium (03/19/2024 2:20 AM EDT) Magnesium 0.71 0.69 - 1.07 mmol/L [facility] Blood 03/19/2024 2:20 AM EDT 03/19/2024 2:59 AM EDT Narrative Resulting Agency Comment Spec In Lab Ganesh Nguyen MD CHEMISTRY ORDERAB LES Performing Organization Address [facility] Co de Phone Number [facility] [place] [address] * (ABNORMAL) Basic Metabolic Panel (non-fasting) (03/19/2024 2:20 AM EDT) Glucose Lvl 160 65 - 199 mg/dL [facility] Comment:Diabetes: >=200 mg/d L plus symptoms BUN 14 8 - 18 mg/dL [facility] Creatinine 0.88 0.70 - 1.20 mg/dL [facility] Sodium 137 135 - 145 mmol/L [facility] Potassium 3.9 3.5 - 5.0 mmol/L [facility] Comment: Please note: ??Patients with WBC >100,000 may have falsely elevated Potassium levels. ??For accurate Potassium quantification in these patients send serum separator tube (gold top) for subsequent determinations. ??Contact the Clinical Chemistry Laboratory if there are any questions. Chloride 100 98 - 107 mmol/L [facility] CO2 20(L) 22 - 31 mmol/L [facility] Anion Gap 17(H) 5 - 15 mmol/L [facility] Calcium 8.2(L) 8.5 - 10.5 mg/dL [facility] Estimated GFR 75 >=60 mL/min/1. 73 m?? [facility] Comment: This patient's estimated GFR [...] Lab Ganesh Nguyen MD CHEMISTRY ORDERAB LES [facility] [place] [address] * (ABNORMAL) Point of Care Blood Gas Historical (03/19/2024 1:41 AM EDT) POC pH 7.28(Criti lewis) 7.35 - 7.45 [facility] POC PCO2 40 35 - [address] [facility] P[facility] PO2 84(L) 85 - [address] [facility] P[facility] Base Excess -8.0(L) -3.0 - 3.0 mmol/L [facility] P[facility] HCO3 18.6(L) 20.0 - 26.0 mmol/L [facility] P[facility] TCO2 20(L) 22 - 31 mmol/L [facility] Sodium 134(L) 135 - 145 mmol/L [facility] Potassium 3.4(L) 3.5 - 5.0 mmol/L [facility] P[facility] Ionized Ca 1.09(L) 1.15 - 1.33 mmol/L [facility] P[facility] Hematocrit 38.0 34.0 - 45.0 % [facility] Calc Hgb 12.9 11.2 - 15.7 g/dL [facility] Blood 03/19/2024 1:41 AM EDT 03/19/2024 1:41 AM EDT Kathryn Walker MD CHEMISTRY ORDERABL ES Performing Organization Address City/State/[facility] Co de Phone Number [facility] [place] [address] * CARDIAC CATHETERIZATION (03/19/2024 1:36 AM EDT) Anatomical Region Laterality Modality Other Narrative 03/19/2024 7:19 AM EDT ?[facility] ? Cardiac Catheterization/Intervention Report ? Patient Name: Warnaar, Isa A. ? Procedure Date: 03/19/2024 ? A #: [id number] ? Primary Physician: Ramo Roy ? Case #: [id number] ? File Name: [id number] ? Catheterization Order Number: [id number] ? [facility] ? Final Report [place], [place] ? Patient Name: ? Isa A. Warnaar ? ID#: ?[id number] ? : ?1965 ? Procedure Date: ? March 19, 2024 ? Case #: ? [id number] ? Room: ? 6 ? Case Physician: [...] was ?designated as ASA Class IV. The [facility] clinical frailty scale is 3: ?Managing [...] procedure was Emergent. 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 [...] ? A premounted 3.00 x 08 mm Holland Olaton (JAHAIRA) was deployed ? with a maximum inflation pressure of 12 atmospheres. ? Another stent insertion was accomplished through a 6 Fr. EBU ? 3.5 guide. ??A premounted 2.00 x 08 mm Alberto Olaton (JAHAIRA) was ? deployed. ? The final [...] dose administered prior to arrival in the 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 ?Recommended anti-platelet/anti-thrombotic regimen: ?Start aspirin 81 mg daily now and continue for indefinitely. ?Start clopidogrel 75 mg daily now and continue for 12 months then stop. ?These recommendations are made at the time of the intervention. Patient ?and provider preferences or a changing clinical situation may require ?modification of this regimen. Consult [facility] Interventional Cardiology for ?questions. ?The 1 year [...] against any medical treatment. Consult ?http://tools.acc.org/DAPTriskapp/#!/content/calculator/ or [facility] ?Interventional Cardiology for questions ? Conclusions: ?* [...] Procedure Note Ramo Roy MD - 03/21/2024 [facility] Cardiac Catheterization/Intervention Report Patient Name: Isa Ro Procedure Date: 03/19/2024 A #: [id number] Primary Physician: Ramo Roy Case #: [id number] File Name: [id number] Catheterization Order Number: [id number] [facility] FinalReport [place], [place] Patient Name: Isa Ro ID#:[id number] :1965 Procedure Date: March 19, 2024 Case [...] patientwas designated as ASA Class IV. The [facility] clinical frailty scale is 3: Managing Well. Diagnostic Tests: Prior Coronary Angiography: Prior coronary angiography was performed on 12/15/2014. Electrocardiography: EKG was assessed by ECG. EKG was Abnormal. EKG showed STDeviation >= 0.5 mm and other abnormality. Medications Prior to Procedure: Aspirin. Indications for Diagnostic Cath: The priority of the diagnostic procedure was Emergent. Theindication for the mine laborer visit is ACS less than or [...] 3.5 guiding catheter and a 3.5 Fr [facility] [place] 20 Mhz usingauto 1 mm/sec pullback. Imaging [...] The priority for the procedure was Emergent.The [facility] indication for the procedure was STEMI-Immediate PCI [...] The lesion was predilated with a 2.50mm [id number] MM balloon with a maximum inflation pressure of 14atmospheres. A premounted 3.00 x 08 mm Alberto Olaton (JAHAIRA) wasdeployed with a maximum inflation pressure of 12 atmospheres. Another stent insertion was accomplished through a 6 Fr.EBU 3.5 guide. A premounted 2.00 x 08 mm Holland Olaton (JAHAIRA)was deployed. The final outcome was defined [...] dose administered prior to arrival in the 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 Recommended anti-platelet/anti-thrombotic regimen: Start aspirin 81 mg daily now and continue for indefinitely. Start clopidogrel 75 mg daily now and continue for 12 months thenstop. These recommendations are made at the time of the intervention.Patient and provider preferences or a changing clinical situation mayrequire modification of this regimen. Consult [facility] Interventional Cardiologyfor questions. The 1 year bleeding [...] or against any medical treatment.Consult http://tools.acc.org/DAPTriskapp/#!/content/calculator/ or [facility] Interventional Cardiology for questions Conclusions: * One [...] POC pH 7.20(Criti lewis) 7.35 - 7.45 [facility] POC PCO2 38 35 - [address] [facility] POC PO2 74(L) 85 - [address] [facility] POC Base Excess -14.0(L) -3.0 - 3.0 mmol/L [facility] POC HCO3 14.5(L) 20.0 - 26.0 mmol/L [facility] POC TCO2 16(L) 22 - 31 mmol/L [facility] POC Sodium 116(Critic al) 135 - 145 mmol/L [facility] POC Potassium 3.1(L) 3.5 - 5.0 mmol/L [facility] POC Ionized Ca 1.04(L) 1.15 - 1.33 mmol/L [facility] POC Hematocrit 39.0 34.0 - 45.0 % [facility] POC Calc Hgb 13.3 11.2 - 15.7 g/dL [facility] Blood 03/19/2024 1:26 AM EDT 03/19/2024 1:26 AM EDT Kathryn Walker MD CHEMISTRY ORDERABL ES Performing Organization Address City/State/[facility] Co de Phone Number [facility] [place] [address] documented in this encounter Visit Diagnoses Not [...] PRN, Starting on 03/19/24 at 0606, Until Tu03/22/24 at 1411, Pain, Maximum dose of acetaminophen [...] DAILY, First dose (after last modification) on 03/21/24 at 0900, Until Discontinued, Routine 0833 (Given - Provider: Izaiah Jimenez, TOSHA)2052 (Given - Provider: Javon Sykes RN) 0857 [...] Javon Sykes RN)1320 (Given - Provider: Izaiah Jimenez, TOSHA)2100 (Given - Provider: Javon Sykes RN) 0511 [...] Lopez RN) 0836 (Given - Provider: Izaiah Jimeenz, TOSHA) 0858 (Given - Provider: Lubna Cruz, [...] Routine documented in this encounter Care Teams Development Editor Relationship Specialty Start Date End Date None None PCP - General 03/19/24 documented as of this encounter
--- OUTSIDE RECORDS SUMMARY | 2024-04-06 11:16 | XMS_ITS | Clinical Summary ---
Author Organization [facility] Address [facility] [place] [address] Care Team Providers Care Marine Firefighter Name Role Phone None Primary Care Provider [...] 1 tablet by mouth daily. 90 tablet 03/23/2024 Active famotidine (Pepcid) 20 mg tablet [...] Care Team Description 03/27/2024 Telephone Cardiology at [address] [phone] Fidel Yanes PA 03/19/2024 8:10 AM EDT - 03/19/2024 11:59 PM EDT Hospital Encounter Non-Invasive Cardiology Lab [place] [phone] Discharge Disposition: Home 03/19/2024 1:05 AM EDT - 03/19/2024 2:06 AM EDT Surgery [place] [phone] Ramo Roy MD CARDIAC CATHETERIZATION 03/19/2024 12:37 AM EDT - 03/22/2024 12:10 PM EDT Hospital Encounter Heart and Vascular Unit Level 4 Water View A at [place] [phone] Min, MD Santi Vigil Xavier L, MD Ramachandra, Nayana, MD ST elevation myocardial infarction involving left anterior descending (LAD) coronary artery; Chest pain, unspecified type Discharge Disposition: Home 03/18/2024 11:37 PM EDT - 03/18/2024 11:59 PM EDT Hospital [place] [address] Min, Destin Grajeda MD Discharge Disposition: Home 03/18/2024 Telephone Cardiology at [address] [phone] Yusuf Herrera MD 03/18/2024 External [place] [phone] from Last 3 Months Social History Tobacco Use Types Packs/Day Years Used Date Smoking Tobacco: Former Smokeless Tobacco: Never Alcohol Use Standard Drinks/Week Comments Yes 14 (1 standard drink = 0.6 oz pu re alcohol) [facility] Utilities Answer Date Recorded In the past 12 months has [employer], oil, or water [employer] threatened to shut off services in your [...] any time in the past 12 m [facility], were you homeless or living in a penitentiary (including now)? No 03/21/2024 DH IPV Inpatient [...] 10:40 AM EDT Office Visit Cardiology at [facility] [place] [phone] Herlinda Weaver PA [facility] [place] [address] Health Maintenance Due Date Last Done Comments [...] [facility] WBC 11.6(H) 4.0 - 9.5 x10(3)/[facility] LABORATORY RBC 4.80 4.00 - 5.21 x10(6)/[facility] LABORATORY Hemoglobin 13.5 11.7 - 15.5 g/dL [facility] Hematocrit 40.3 35.7 - 45.8 % [facility] MCV 84.0 82.6 - 94.4 [facility] LABORATORY MCH 28.1 27.1 - 32.0 pg [facility] MCHC 33.5 31.7 - 35.0 g/dL [facility] Platelets 232 145 - 357 x10(3)/[facility] LABORATORY RDWSD 42.2 37.0 - 46.0 [facility] LABORATORY RDWCV 13.5 11.5 - 14.1 % [facility] MPV 9.7 7.6 - 12.9 [facility] LABORATORY nRBC % Auto 0.0 % [facility] LABORATORY nRBC Abs Auto 0.000 0.000 - 0.000 x10(3)/[facility] LABORATORY Blood 03/22/2024 5:06 AM EDT 03/22/2024 5:12 AM EDT Narrative Resulting Agency Comment Spec In Lab Horace Hancock MD HEMATOLOGY ORDERABLE S [facility] [place] [address] * (ABNORMAL) Differential, Automated (03/22/2024 5:06 AM EDT) Only the most recent of5 resultswithin the time period is included. Pathologist [facility] Neutrophils % 71.6 % [facility] LABORATORY Neutr Abs (ANC) 8.34(H) 1.70 - 6.10 x10(3)/[facility] LABORATORY Lymphocytes % 17.4 % [facility] LABORATORY Lymphocytes Abs 2.0 0.9 - 3.2 x10(3)/[facility] LABORATORY Monocytes % 8.2 % [facility]ORY Monocyte Abs 1.0(H) 0.3 - 0.9 x10(3)/[facility] LABORATORY Eosinophils % 2.2 % [facility] LABORATORY Eosinophils Abs 0.3 0.0 - 0.4 x10(3)/[facility] LABORATORY Basophils % 0.3 % [facility] LABORATORY Basophils Abs 0.0 0.0 - 0.1 x10(3)/[facility] LABORATORY Immature Gran % 0.30 % [facility] Comment: Immature granulocytes(IG's)percentage and absolute count will include metamyelocytes, myelocytes, and promyelocytes. Blood smears from CBCs yielding IG's will be scanned manually for concordance. If this scan disagrees with the automated IG or if promyelocytes are noted, a manual differential will be performed. Lesia Gran Abs 0.03 0.00 - 0.04 x10(3)/[facility] LABORATORY Blood 03/22/2024 5:06 AM EDT 03/22/2024 5:12 AM EDT Narrative Resulting Agency Comment Spec In Lab Horace Hancock MD HEMATOLOGY ORDERABLE S [facility] [place] [address] * Magnesium (03/22/2024 5:06 AM EDT) Only the most recent of5 resultswithin the time period is included. Magnesium 0.90 0.69 - 1.07 mmol/L [facility] Blood 03/22/2024 5:06 AM EDT 03/22/2024 5:12 AM EDT Narrative Resulting Agency Comment Spec In Lab Destin Ambrosio MD CHEMISTRY ORDERABLES [facility] [place] [address] * Basic Metabolic Panel (non-fasting) (03/22/2024 5:06 AM EDT) Only the most recent of4 resultswithin the time period is included. Glucose Lvl 107 65 - 199 mg/dL [facility] Comment:Diabetes: >=200 mg/d L plus symptoms BUN 18 8 - 18 mg/dL [facility] Creatinine 0.87 0.70 - 1.20 mg/dL [facility] Sodium 138 135 - 145 mmol/L [facility] Potassium 4.1 3.5 - 5.0 mmol/L [facility] Comment: Please note: ??Patients with WBC >100,000 may have falsely elevated Potassium levels. ??For accurate Potassium quantification in these patients send serum separator tube (gold top) for subsequent determinations. ??Contact the Clinical Chemistry Laboratory if there are any questions. Chloride 104 98 - 107 mmol/L [facility] CO2 24 22 - 31 mmol/L [facility] Anion Gap 10 5 - 15 mmol/L [facility] Calcium 9.2 8.5 - 10.5 mg/dL [facility] Estimated GFR 76 >=60 mL/min/1. 73 m?? [facility] Comment: This patient's estimated GFR [...] Hancock MD CHEMISTRY ORDERABLES Performing Organization Address [facility] Co de Phone Number [facility] [place] [address] * Metanephrines, Fractionated Free, plasma (03/21/2024 2:57 AM EDT) Normetane Free 0.47 <0.90 nmol/L [facility] Comment: Test Performed by: [facility] [place] [address] Morning Show Host: Chasity Hernandez Ph.D.; CLIA# [id number] Metanephr Free <0.20 <0.50 nmol/L [facility] Comment: ADDITIONAL INFORMATION This test was developed and its performance characteristics determined by [facility] in a manner consistent with CLIA requirements. This test has not been cleared or approved by the U.S. Food and Drug Administration. Test Performed by: [facility] [place] [address] Morning Show Host: Chasity Hernandez Ph.D.; CLIA# [id number] Blood 03/21/2024 2:57 AM EDT 03/21/2024 11:29 AM EDT Narrative Resulting Agency Comment Spec In Lab Horace Hancock MD CHEMISTRY ORDERABLES Performing Organization Address City/[facility]/ZIP Co de Phone Number [facility] [place] [address] * Iron and TIBC (03/20/2024 10:38 AM EDT) Iron 57 30 - 150 mcg/dL [facility] TIBC 278 250 - 450 mcg/dL [facility] Iron Saturation 21 20 - 50 % [facility] Blood Venous Draw / Unknown 03/20/2024 10:38 AM EDT 03/20/2024 10:52 AM EDT Narrative Resulting Agency Comment Spec In Lab Horace Hancock MD CHEMISTRY ORDERABLES [facility] [place] [address] * (ABNORMAL) Troponin (03/19/2024 11:01 PM EDT) Only the most recent of5 resultswithin the time period is included. Troponin-T HS 2,406(H) <=14 ng/L [facility] Comment: This patient's troponin T [...] can be found in the [facility] Laboratory Test Catalog Troponin - [facility] Laboratory Test Catalog Reference: Fourth [place] Definition of Myocardial Infarction. Journal of the [employer] College of Cardiology 2018;72:8431-7594 Blood 03/19/2024 11:0 1 PM EDT 03/19/2024 11:05 PM EDT Narrative Resulting Agency Comment Spec In Lab Franky Mead MD CHEMISTRY ORDERABLE S Performing Organization Address City/[facility]/ZIP Co de Phone Number [facility] [place] [address] * EKG 12 Lead (03/19/2024 8:32 PM EDT) Only the most recent of3 resultswithin the time period is included. Ventricular rate 70 BPM MUSE SYSTEM Atrial Rate 70 BPM MUSE SYSTEM P-R Interval 158 ms MUSE SYSTEM QRS Duration 78 ms MUSE SYSTEM Q-T Interval 470 ms MUSE SYSTEM QTC Calculated (Bezet) 507 ms MUSE SYSTEM Calculated P [place] 62 degrees MUSE SYSTEM Calculated R [place] 42 degrees MUSE SYSTEM Calculated T [place] -158 degrees MUSE SYSTEM INTERPRETATION Normal sinus rhythm Poor R wave progression T wave abnormality, consider lateral ischemia Prolonged QT Abnormal ECG When compared with ECG of 19-MAR-2024 17:27, No significant change was found Confirmed by MD Hebert, Destin ([id number]) on 03/23/2024 8:10:58 AM MUSE SYSTEM 03/19/2024 8:32 PM EDT 03/23/2024 8:10 AM EDT Franky Mead MD ECG ORDERABLES Performing Organization Address [facility] Co de Phone Number MUSE SYSTEM * ECHO COMPLETE W CONTRAST (03/19/2024 10:53 AM EDT) Anatomical Region Laterality Modality Cardiac Other 03/19/2024 9:03 AM EDT Narrative 03/19/2024 12:12 PM EDT [address] [place] [address] ? Echocardiogram Report Name: ISA RO ?Study Date: 03/19/2024 09:03 AMBP: 129/68 mmHg ? Patient Location: : 1965 ? Height: 158 cm ? Account: [id number] Age: 59 yrs ? Weight: 57 kg Gender: Female ?BSA: 1.6 m2 Ordering Physician: GANESH NGUYEN Referring Physician: GANESH NGUYEN Performed By: PEREZ Carlos Reason For Study: STEMI involving LAD Exam Location: [facility]. Interpretation Summary Normal left ventricle size with mildly reduced LV function. LV ejection fraction 49%. LAD territory wall motion abnormality, predominantly involving the LV apex. No LV thrombus visualized with echo contrast. Normal right ventricle. No significant valvular abnormalities. Compared with prior echo dated 08/28/23, LV function has now decreased and new wall motion abnormalities. Procedure Complete-[id number]. Image enhancement Definity was used for left [...] Note Destin Ambrosio MD - 03/19/2024 [address] [place] [address] Echocardiogram Report Name: ISA RO Study Date: 409:03 AMBP: 129/68 mmHg Patient Location: : 1965 Height: 158 cm Account: [id number] Age: 59 yrs Weight: 57 kg Gender: Female BSA: 1.6 m2 Ordering Physician: GANESH NGUYEN Referring Physician: GANESH NGUYEN Performed By: PEREZ Carlos Reason For Study: STEMI involving LAD Exam Location: [facility]. Interpretation Summary Normal left ventricle size with mildly reduced LV function. LV ejectionfraction 49%. LAD territory wall motion abnormality, predominantly involving the LVapex. No LV thrombus visualized with echo contrast. Normal right ventricle. No significant valvular abnormalities. Compared with prior echo dated 08/28/23, LV function has now decreased andnew wall motion abnormalities. Procedure Complete-[id number]. Image enhancement Definity was used for left [...] View (03/19/2024 8:37 AM EDT) WORKSTATION ID [id number] RAD Anatomical Region Laterality Modality Chest N/A [...] who have questions please contact the health plant care worker that requested your imaging first. ? Electronically signed by: Isa Whitley MD, [facility] ??([phone]), at 03/19/2024 10:09 AM Narrative 03/19/2024 10:09 [...] patients who have questions please contactthe health plant care worker that requested your imaging first. Delores Jett MD IMG DX ORDERABLES * APTT (03/19/2024 5:25 AM EDT) Only the most recent of2 resultswithin the time period is included. PTT 29 25 - 37 sec [facility] Comment: The PTT is NOT appropriate for heparin monitoring. Use the Anti-Xa level for heparin monitoring (HEP UFH) or LMWH monitoring (HEP LMW). A PTT less than 37 seconds generally indicates adequate hemostasis. Blood 03/19/2024 5:25 AM EDT 03/19/2024 5:34 AM EDT Narrative Resulting Agency Comment Spec In Lab Ganesh Nguyen MD HEMATOLOGY ORDERA BLES Performing Organization Address [facility] Co de Phone Number [facility] [place] [address] * Prothrombin Time (03/19/2024 5:25 AM EDT) Only the most recent of2 resultswithin the time period is included. PT 10.9 9.4 - 12.5 sec [facility] INR 1.0 [facility] Comment: An INR <2.0 indicates [...] MD HEMATOLOGY ORDERA BLES Performing Organization Address City/[facility]/ZIP Co de Phone Number [facility] [place] [address] * Hemoglobin A1c (03/19/2024 5:25 AM EDT) Hemoglobin A1C 5.6 4.3 - 5.6 % [facility] Comment: Reference Range: 4.3 - [...] Mellitus, Diabetes Care 2013; 36: Suppl. 1, P17-94 Est Avg Gluc 114 mg/dL [facility] Blood Venous Draw / Unknown 03/19/2024 5:25 AM EDT 03/19/2024 3:52 PM EDT Narrative Resulting Agency Comment Spec In Lab Horace Hancock MD CHEMISTRY ORDERABLES [facility] [place] [address] * Lipid Panel (Reflex Direct LDL) (03/19/2024 5:25 AM EDT) Chol, Total 324 mg/dL [facility] Comment: Desirable: ? <200 mg/dL Borderline High: 200-239 mg/dL Higher: ?>wx=869 mg/dL Triglycerides 200 mg/dL [facility] Comment: Normal: ?<150 mg/dL Borderline High: 150-199 mg/dL High: ?200-499 mg/dL Very High: ? >qa=731 mg/dL HDL 68 mg/dL [facility] Comment: Females: High Risk: <50 mg/dL Males: High Risk: <40 mg/dL LDL Cholesterol 216 mg/dL [facility] Comment: Desirable: ? <100 mg/dL Above Desirable: 100-129 mg/dL Borderline High: 130-159 mg/dL High: ?160-189 mg/dL Very High: ? >oo=836 mg/dL Lipid Interpretation See Note [facility] Comment: It is important to [...] ACC/AHA Guidelines (most recently Jw et al. [facility] 06/17/22): For individuals with atherosclerotic cardiovascular disease (ASCVD)or LDL >an=654 mg/dL, use a high-intensity statin (40-80 mg [...] Lab Ganesh Nguyen MD CHEMISTRY ORDERAB LES [facility] [place] [address] * (ABNORMAL) Comprehensive metabolic panel (non-fasting) (03/19/2024 5:25 AM EDT) Glucose Lvl 181 65 - 199 mg/dL [facility] Comment:Diabetes: >=200 mg/d L plus symptoms BUN 14 8 - 18 mg/dL [facility] Creatinine 0.91 0.70 - 1.20 mg/dL [facility] Sodium 137 135 - 145 mmol/L [facility] Potassium 4.2 3.5 - 5.0 mmol/L [facility] Comment: Please note: ??Patients with WBC >100,000 may have falsely elevated Potassium levels. ??For accurate Potassium quantification in these patients send serum separator tube (gold top) for subsequent determinations. ??Contact the Clinical Chemistry Laboratory if there are any questions. Chloride 100 98 - 107 mmol/L [facility] CO2 22 22 - 31 mmol/L [facility] Anion Gap 15 5 - 15 mmol/L [facility] Calcium 8.7 8.5 - 10.5 mg/dL [facility] Total Protein 7.2 6.1 - 8.0 g/dL [facility] Albumin 4.5 3.2 - 5.2 g/dL [facility] AST 95(H) 0 - 30 unit/L [facility] Comment:result rechecked-bz ALT 31(H) 0 - 30 unit/L [facility] Alk Phos 70 35 - 105 unit/L [facility] Total Bilirubin 0.5 0.2 - 1.3 mg/dL [facility] Estimated GFR 72 >=60 mL/min/1. 73 m?? [facility] Comment: This patient's estimated GFR [...] MD CHEMISTRY ORDERAB LES Performing Organization Address City/[facility]/ZIP Co de Phone Number [facility] [place] [address] * Phosphorus (03/19/2024 2:20 AM EDT) Phosphorus 3.8 2.5 - 4.5 mg/dL [facility] Blood 03/19/2024 2:20 AM EDT 03/19/2024 2:59 AM EDT Narrative Resulting Agency Comment Spec In Lab Ganesh Nguyen MD CHEMISTRY ORDERAB LES Performing Organization Address [facility] Co de Phone Number [facility] [place] [address] * (ABNORMAL) pro-Brain Natriuretic Peptide (03/19/2024 2:20 AM EDT) ProBNP 529(H) <=124 pg/mL [facility] Blood 03/19/2024 2:20 AM EDT 03/19/2024 2:59 AM EDT Narrative Resulting Agency Comment Spec In Lab Ganesh Nguyen MD CHEMISTRY ORDERAB LES Performing Organization Address [facility] Co de Phone Number [facility] [place] [address] * (ABNORMAL) Hepatic Function Panel (03/19/2024 2:20 AM EDT) Total Protein 6.7 6.1 - 8.0 g/dL [facility] Albumin 4.3 3.2 - 5.2 g/dL [facility] AST 49(H) 0 - 30 unit/L [facility] ALT 26 0 - 30 unit/L [facility] Alk Phos 67 35 - 105 unit/L [facility] Total Bilirubin 0.4 0.2 - 1.3 mg/dL [facility] Bili, Direct 0.1 0.0 - 0.3 mg/dL [facility] Blood 03/19/2024 2:20 AM EDT 03/19/2024 2:59 AM EDT Narrative Resulting Agency Comment Spec In Lab Ganesh Nguyen MD CHEMISTRY ORDERAB LES [facility] [place] [address] * (ABNORMAL) Point of Care Blood Gas Historical (03/19/2024 1:41 AM EDT) Only the most recent of2 resultswithin the time period is included. POC pH 7.28(Criti lewis) 7.35 - 7.45 [facility] POC PCO2 40 35 - 45 mmHg [facility] POC PO2 84(L) 85 - 104 mmHg [facility] POC Base Excess -8.0(L) -3.0 - 3.0 mmol/L [facility] POC HCO3 18.6(L) 20.0 - 26.0 mmol/L [facility] POC TCO2 20(L) 22 - 31 mmol/L [facility] POC Sodium 134(L) 135 - 145 mmol/L [facility] POC Potassium 3.4(L) 3.5 - 5.0 mmol/L [facility] POC Ionized Ca 1.09(L) 1.15 - 1.33 mmol/L [facility] POC Hematocrit 38.0 34.0 - 45.0 % [facility] POC Calc Hgb 12.9 11.2 - 15.7 g/dL [facility] Blood 03/19/2024 1:41 AM EDT 03/19/2024 1:41 AM EDT Kathryn Walker MD CHEMISTRY ORDERABL ES [facility] [place] [address] * CARDIAC CATHETERIZATION (03/19/2024 1:36 AM EDT) Anatomical Region Laterality Modality Other Narrative 03/19/2024 7:19 AM EDT ?[facility] ? Cardiac Catheterization/Intervention Report ? Patient Name: Isa Ro A. ? Procedure Date: 03/19/2024 ? A #: [id number] ? Primary Physician: Ramo Roy ? Case #: [id number] ? File Name: [id number] ? Catheterization Order Number: [id number] ? [facility] ? Final Report [place], [place] ? Patient Name: ? Isa A. Warnaar ? ID#: ?[id number] ? : ?1965 ? Procedure Date: ? March 19, 2024 ? Case #: ? [id number] ? Room: ? 6 ? Case Physician: [...] procedure was Emergent. The indication for ?the crime lab analyst visit is ACS less than or equal [...] ?3.5 guiding catheter and a 3.5 Fr [place] 20 Mhz using auto 1 ?mm/sec pullback. [...] ? A premounted 3.00 x 08 mm [place] (JAHAIRA) was deployed ? with a maximum inflation pressure of 12 atmospheres. ? Another stent insertion was accomplished through a 6 Fr. EBU ? 3.5 guide. ??A premounted 2.00 x 08 mm [place] (JAHAIRA) was ? deployed. ? The final [...] dose administered prior to arrival in the crime lab analyst. ?Recommended anti-platelet/anti-thrombotic regimen: ?Start aspirin 81 mg daily now and continue for indefinitely. ?Start clopidogrel 75 mg daily now and continue for 12 months then stop. ?These recommendations are made at the time of the intervention. Patient ?and provider preferences or a changing clinical situation may require ?modification of this regimen. Consult [facility] Interventional Cardiology for ?questions. ?The 1 year [...] against any medical treatment. Consult ?http://tools.acc.org/DAPTriskapp/#!/content/calculator/ or [facility] ?Interventional Cardiology for questions ? Conclusions: ?* [...] Procedure Note Ramo Roy MD - 03/21/2024 [facility] Cardiac Catheterization/Intervention Report Patient Name: Isa Ro Procedure Date: 03/19/2024 A #: [id number] Primary Physician: Ramo Roy Case #: [id number] File Name: [id number] Catheterization Order Number: [id number] [facility] FinalReport [place], [place] Patient Name: Isa Ro ID#:[id number] :1965 Procedure Date: March 19, 2024 Case [...] patientwas designated as ASA Class IV. The [facility] clinical frailty scale is 3: Managing Well. Diagnostic Tests: Prior Coronary Angiography: Prior coronary angiography was performed on 12/15/2014. Electrocardiography: EKG was assessed by ECG. EKG was Abnormal. EKG showed STDeviation >= 0.5 mm and other abnormality. Medications Prior to Procedure: Aspirin. Indications for Diagnostic Cath: The priority of the diagnostic procedure was Emergent. Theindication for the crime lab analyst visit is ACS less than or equal [...] 3.5 guiding catheter and a 3.5 Fr [place] 20 Mhz usingauto 1 mm/sec pullback. Imaging [...] The priority for the procedure was Emergent.The [facility] indication for the procedure was STEMI-Immediate PCI [...] The lesion was predilated with a 2.50mm [id number] MM balloon with a maximum inflation pressure of 14atmospheres. A premounted 3.00 x 08 mm [place] (JAHAIRA) wasdeployed with a maximum inflation pressure of 12 atmospheres. Another stent insertion was accomplished through a 6 Fr.EBU 3.5 guide. A premounted 2.00 x 08 mm [place] (JAHAIRA)was deployed. The final outcome was defined [...] dose administered prior to arrival in the crime lab analyst. Recommended anti-platelet/anti-thrombotic regimen: Start aspirin 81 mg daily now and continue for indefinitely. Start clopidogrel 75 mg daily now and continue for 12 months thenstop. These recommendations are made at the time of the intervention.Patient and provider preferences or a changing clinical situation mayrequire modification of this regimen. Consult [facility] Interventional Cardiologyfor questions. 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
--- OUTSIDE RECORDS SUMMARY | 2024-04-06 11:16 | XMS_ITS | Encounter Summary ---
Author Organization Formerly [facility] [place] [address] Care Team Providers Care Strain Technician Name Role Phone None Primary Care Provider Unavailabl e Reason for Visit * Auth/Cert (Routine) Specialty Diagnoses / Procedures Referred By Contac t Referred To Contact Diagnoses Acute ST elevation myocardial infarction (STEMI) due to occlusion of left anterior descending (LAD) coronary artery stemi Procedures EMERGENCY IPI Destin Ambrosio MD [facility] [place] [address] [facility] Referral ID Status Reason Start Date Expiration Date Visits Re quested Visits Authorized [id number] 1 1 Encounter Details Date Type Department Care Team (Latest Contact Info) Description 03/19/2024 8:10 AM EDT - 03/19/2024 11:59 PM EDT Hospital Encounter [place] [address] Discharge Disposition: Home Social History Tobacco Use [...] 10:40 AM EDT Office Visit Cardiology at [address] [place] [address] Herlinda Weaver PA [facility] [place] [id number] documented as of this encounter Procedures Procedure [...] mLs documented in this encounter Care Teams Strain Technician Relationship Specialty Start Date End Date None None PCP - General 03/19/24 documented as of this encounter
--- OUTSIDE RECORDS SUMMARY | 2024-04-06 11:16 | XMS_ITS | Encounter Summary ---
Author Organization [facility] [place] [address] Care Team Providers Care Elevator Examiner Name Role Phone None Primary Care Provider Unavailabl e Reason for Referral * Consultation (Routine) - Authorized Specialty Diagnoses / Procedures Referred By Contac t Referred To Contact Cardiology Diagnoses ST elevation myocardial infarction involving left anterior descending (LAD) coronary artery Kathryn Walker MD [facility] [place] [address] [facility] [address] [place] [address] Referral ID Status Reason Start Date Expiration Date Visits Requested Visits Authorized [id number] Authorized Consult, Test & Treat 03/22/2024 09/18/2024 1 1 * Consultation (Routine) - Authorized Specialty Diagnoses / Procedures Referred By Contac t Referred To Contact Cardiology Diagnoses ST elevation myocardial infarction involving left anterior descending (LAD) coronary artery Horace Hancock MD [facility] [place] [address] Cardiac Rehab, [address] [place] [address] Referral ID Status Reason Start Date Expiration Date Visits Requested Visits Authorized [id number] Authorized Consult, Test & Treat 03/22/2024 09/18/2024 36 36 Reason for Visit * Auth/Cert (Routine) Specialty Diagnoses / Procedures Referred By Contac t Referred To Contact Diagnoses Acute ST elevation myocardial infarction (STEMI) due to occlusion of left anterior descending (LAD) coronary artery stemi Procedures EMERGENCY IPI Destin Ambrosio MD [facility] [place] [address] [facility] Referral ID Status Reason Start Date Expiration Date Visits Re quested Visits Authorized [id number] 1 1 Encounter Details Date Type Department Care Team (Latest Contact Info) Description 03/19/2024 12:37 AM EDT - 03/22/2024 12:10 PM EDT Hospital Encounter Heart and Vascular Unit Level 4 Wing A at [place] [phone] Destin Ambrosio MD [facility] [place] [address] Horace Hancock MD [facility] [place] [address] Kathryn Walker MD [facility] [place] [address] ST elevation myocardial infarction involving left anterior descending (LAD) coronary artery; Chest pain, unspecified type Discharge Disposition: Home Social History Tobacco Use Types Packs/Day Years Used Date Smoking Tobacco: Former Smokeless Tobacco: Never Alcohol Use Standard Drinks/Week Comments Yes 14 (1 standard drink = 0.6 oz pu re alcohol) [facility] Utilities Answer Date Recorded In the past 12 months has [facility] DXY, gas, oil, or water National [employer] of Health (NIH) threatened to shut off services in your [...] any time in the past 12 m [facility], were you homeless or living in a longterm (including now)? No 03/21/2024 DH IPV Inpatient [...] Isa Ro Patient Age: 59 y.o. Language: [place] Race: White Ethnicity: Not nor Admit date: [...] hypoxemic and hypercapnic respiratory failure in the garden labourer, potentially also due to sedation. Patient briefly [...] [facility] cardiology scheduled. [facility] cardiology referral sent Inpatient Provider Contact Information: Kathryn Walker MD [phone] For questions regarding this document or issues relating to this hospitalization on the Medical Service, please contact your inpatient physician through the [facility] Support Specialist . Issues afterhours and on weekends will [...] 03/19/2024 8:37 AM) Result Value WORKSTATION ID [id number] Narrative EXAMINATION: XR CHEST ONE VIEW CLINICAL [...] who have questions please contact the health managed care analyst that requested your imaging first. Cardiac Catheterization (Exam End: 03/19/2024 1:36 AM) Narrative [facility] Cardiac Catheterization/Intervention Report Patient Name: Isa Ro Procedure Date: 03/19/2024 A #: [id number] Primary Physician: Ramo Roy Case #: [id number] File Name: [id number] Catheterization Order Number: [id number] [facility] Fill Manager [facility] Final Report [place], [place] Patient Name: Isa Ro ID#: [id number] : 1965 Procedure Date: March 19, 2024 [...] was designated as ASA Class IV. The [facility] clinical frailty scale is 3: Managing Well. Diagnostic Tests: Prior Coronary Angiography: Prior coronary angiography was performed on 12/15/2014. Electrocardiography: EKG was assessed by ECG. EKG was Abnormal. EKG showed ST Deviation >= 0.5 mm and other abnormality. Medications Prior to Procedure: Aspirin. Indications for Diagnostic Cath: The priority of the diagnostic procedure was Emergent. The indication for the garden labourer visit is ACS less than or equal [...] 3.5 guiding catheter and a 3.5 Fr [place] 20 Mhz using auto 1 mm/sec pullback. [...] priority for the procedure was Emergent. The [facility] indication for the procedure was STEMI-Immediate [...] A premounted 3.00 x 08 mm [place] (JAHAIRA) was deployed with a maximum inflation pressure of 12 atmospheres. Another stent insertion was accomplished through a 6 Fr. EBU 3.5 guide. A premounted 2.00 x 08 mm [place] (JAHAIRA) was deployed. The final outcome was [...] dose administered prior to arrival in the garden labourer. Recommended anti-platelet/anti-thrombotic regimen: Start aspirin 81 mg [...] decreased and new wall motion abnormalities. Procedure Complete-47366. Image enhancement Definity was used for left [...] LAD in 03/2014, HLD, who presented to [facility] with chest pain. She developed chest pain around 2100 on 03/18 which prompted her to call EMS. She was given 325mg of aspirin and nitroglycerin. On arrival to [facility], she was found to have an EKG suggestive of anterior STEMI for which she was given half dose TNKfor systemic lysis prior to speaking with Dr. Herrera, on-call battery container inspector at [facility]. She was subsequently transferred directly to the [facility] garden labourer where coronary angiography revealed a 100% occluded [...] (Calculated): 22.18 Height: 157.5 cm (5' 2.01) (03/22/24405) Weight: 55 kg (121 lb 4.8 oz) (03/22/24405) Functional and Cognitive Status: at baseline Awake, alert, oriented x4. Ambulating well with no assistance required and asymptomatic with ambulation. Lungs CTAB, no LE edema, heart sounds RRR Important Studies and Lab Data: Labs: Last 3 wbc, hgb, hct plt Recent Labs 03/22/24 0506 03/21/24 02503/20/24 1038 WBC 11.6* 10.6* 13.2* HGB 13.5 [...] Recent Labs 03/22/24 0506 03/19/24 0525 03/19/24 022 CALCIUM 9.2 < > 8.2* PHOS [...] away. Stay on the phone. The emergency agricultural plow operator will tell you what to do. [...] of 8AM-5PM please call the Cardiology Clinic [phone] to speak with a nurse. All other hours please call the Hospital Support Specialist [phone] and ask to speak to the cardiovascular hospitalist on-call. Return to work: One week Follow up Appointments: Doctor Where Phone # Date Time PCP MELECIO Polanco [address] [place], [place] [address] 04/04/24 7:55 AM Probate Judge Herlinda Weaver PA-C [facility] Cardiology Clinic [phone] 05/09/24 10:40 AM (pleasearrive by 10:20 AM) *A referral has also been placed to [facility] cardiology, though you will need to follow-up with them regarding scheduling appointments at [phone] General Instructions None Future Appointments and Orders Future Appointments and Orders Future Appointments Provider Department Dept Phone 05/09/2024 10:40 AM Herlinda Weaver PA Cardiology at [facility] Arrive at: Riveting Machine Operator Tape Control Area [phone] Future Orders Complete By Expires Referral to Cardiac Rehab [OCZ486 Custom] As directed Process Instructions: If no progress note charted, please enter Clinical details in comments. Scheduling Instructions: Questions: My question or request is: s/p STEMI- cardiac rehab at [facility] Referral to Cardiology [REF12 Custom] As directed Process Instructions: If no progress note charted, please enter Clinical details in comments. Scheduling Instructions: Questions: My question or request is: s/p STEMI Discharge References/Attachments None Greater than 30 minutes was spent on this discharge including documentation, obob-xm-zoxd time withthe patient, patient education, sales order processor, coordination with pharmacy and other patient care. [...] away. Stay on the phone. The emergency agricultural plow operator will tell you what to do. [...] cardiac rehab has also been placed to [facility]. Call your doctor if: Chest pain, dyspnea, pain or swelling in legs occurs, or for weight gain of 2 pounds overnight or 5pounds in 5 days. If you have non-emergent questions, prior to your follow-up visit call: Thursday-Thursday between the hours of 8AM-5PM please call the Cardiology Clinic [phone] to speak with a nurse. All other hours please call the Hospital Support Specialist [phone] and ask to speak to the cardiovascular hospitalist on-call. Return to work: One week Follow up Appointments: Doctor Where Phone # Date Time PCP MELECIO Polanco [address] [place], [place] [address] 04/04/24 7:55 AM Probate Judge Herlinda Weaver PA-C [facility] Cardiology 4A Clinic [phone] 05/09/24 10:40 AM (pleasearrive by 10:20 AM) *A referral has also been placed to [facility] cardiology, though you will need to follow-up with them regarding scheduling appointments at [phone] documented in this encounter Medications at Time [...] agreed to participate in cardiac rehab at [facility] following discharge Review of Systems: Review [...] to have resulted in hypoxemia in the garden labourer. She was also a bit hypercapnic which [...] pt re: Losartan/GDMT consideration -Cardiac Rehab at [facility] following discharge -Telemonitoring x72 hours -Plan [...] baseline. Lab Comments: Recent Labs 03/20/24 1038 03/19/2452403/19/24219 WBC 13.2* 18.6* 17.2* HGB 13.0 13.7 13.3 HCT 38.7 40.6 38.7 PLATELET 238 285 281 Recent Labs 03/19/24524 INR 1.0 Recent Labs 03/20/24 1038 03/19/2452403/19/24 [...] to have resulted in hypoxemia in the garden labourer. She was also a bit hypercapnic which [...] 03/19/2024 8:20 PM EDTSummary: Chest Pain Patient director of hotel operations light c/o chest pain 11/21. I asked [...] and Assessment: 59 yo F transferred from [facility] for a STEMI alert. Received ASA 324 [...] => BiPAP started Following procedure, transferred to [facility] - able to be weaned to [place] Remains on low dose NTG gtt, attempts [...] 10:00 PM Hospital to which patient presented: [facility] Not contraindicated Plan STEMI Alert called: Yes Fill Manager Activated by: Automotive Brake Adjuster Initial Disposition: Admit Fill Manager documented in this encounter H&P Notes * [...] to LAD in 03/2014, HLD,who presented to [facility] with chest pain. She developed chest pain around 2100 on 03/18 which prompted her to call EMS. She was given 325mg of aspirin and nitroglycerin. On arrival to [facility], she was found to have an EKG suggestive of anterior STEMI for which she was given half dose TNK for systemic lysis prior to speaking with Dr. Herrera, on-call battery container inspector at [facility]. She was subsequently transferred directly to the [facility] garden labourer where coronary angiography revealed a 100% occluded [...] to have resulted in hypoxemia in the garden labourer. She was also a bit hypercapnic which [...] Cardiopulmonary Resuscitation - Inpatient Ganesh Nguyen MD Automotive Brake Adjuster [id number] documented in this encounter Miscellaneous Notes [...] Care: Contact information for follow-up Cardiac Rehab, [facility] [address] [facility] [address] Cardiology, [facility] [address] [facility] [address] Transportation: family or friend will provide Functional [...] 03/21/2024 4:02 PM EDT Patient completed a [place] advance directive. Patient identified her sister Stacia [...] N/A ; Prescription Coverage: Yes Preferred Pharmacy: [place], [place] - [address] [place] [address] [address] [place] [address] [address] [facility] [address] [id number] - [address] [place] [address] [facility] - [facility], [place] - [address] [facility] [address] [facility] [address] Advance Care Planning: Attempt Cardiopulmonary Resuscitation - Inpatient <no information> -Advanced Directive: No, need to discuss (RS referral sent for AD discussion) Current Functional Ability: Assistive Person Functional Status Prior to Admission: Independent Home Environment: Others in the home: child(lucian), minor (lives with her 15yo son). Current Living Arrangements: home/apartment/condo. Accessibility Concerns:house with 3 floors and 2 [address]. Current DME: none [address] [facility] [address] Social & Family Supports: All names listed below confirmed with patient as current and correct Extended Emergency Contact Information Primary Emergency Contact: Tiffany Ro, [facility] Mobile Relation: Mother Current Care Provided by: [...] RS for AD discussion today. Registered Nurse Cnc Machine Operator / Heel Molder will continue to follow patient???s progress and remain available if situation changes for coordination of care, psychosocial support and/or discharge planning. Office of Care Management Cyndy Suárez, RN * Consult Note - Marina Salvador RN - 03/21/2024 11:53 AM EDT Isa Chuy Lozoyasoledadannmarie was seen today by Cardiac Rehabilitation for: [...] in an outpatient cardiac rehabilitation program at [facility] was discussed. Patient agrees to a [...] Operative Note Patient Name: Isa Ro : [id number] MR#: [id number] Case Date: 03/19/2024 Surgeon: Surgeons and Role: [...] 10:40 AM EDT Office Visit Cardiology at [address] [address] Herlinda Weaver PA [facility] [place] [address] Scheduled Referrals Name Type Priority Associated Diagnoses [...] EDT HC CBC,PLT & AUTO DIFF Routine 2:57 AM EDT HC MAGNESIUM, SERUM Routine [...] 5:06 AM EDT) Neutrophils % 71.6 % [facility] Neutr Abs (ANC) 8.34(H) 1.70 - 6.10 x10(3)/ L [facility] Lymphocytes % 17.4 % [facility] Lymphocytes Abs 2.0 0.9 - 3.2 x10(3)/[facility] Monocytes % 8.2 % [facility] Monocyte Abs 1.0(H) 0.3 - 0.9 x10(3)/[facility] Eosinophils % 2.2 % [facility] Eosinophils Abs 0.3 0.0 - 0.4 x10(3)/[facility] Basophils % 0.3 % [facility] Basophils Abs 0.0 0.0 - 0.1 x10(3)/[facility] Immature Gran % 0.30 % [facility] Comment: Immature granulocytes(IG's)percentage and absolute count will include metamyelocytes, myelocytes, and promyelocytes. Blood smears from CBCs yielding IG's will be scanned manually for concordance. If this scan disagrees with the automated IG or if promyelocytes are noted, a manual differential will be performed. Lesia Gran Abs 0.03 0.00 - 0.04 x10(3)/ L [facility] Blood 03/22/2024 5:06 AM EDT 03/22/2024 5:12 AM EDT Narrative Resulting Agency Comment Spec In Lab Horace Hancock MD HEMATOLOGY ORDERABLE S [facility] [place] [address] * (ABNORMAL) Hemogram (03/22/2024 5:06 AM EDT) Pathologist [facility] WBC 11.6(H) 4.0 - 9.5 x10(3)/[facility] LABORAT[facility] RBC 4.80 4.00 - 5.21 x10(6)/[facility] Hemoglobin 13.5 11.7 - 15.5 g/dL [facility] Hematocrit 40.3 35.7 - 45.8 % [facility] MCV 84.0 82.6 - 94.4 [facility] MCH 28.1 27.1 - 32.0 pg [facility] MCHC 33.5 31.7 - 35.0 g/dL [facility] Platelets 232 145 - 357 x10(3)/[facility]ORATORY RDWSD 42.2 37.0 - 46.0 [facility] RDWCV 13.5 11.5 - 14.1 % [facility] MPV 9.7 7.6 - 12.9 [facility] nRBC % Auto 0.0 % [facility] nRBC Abs Auto 0.000 0.000 - 0.000 x10(3)/[facility] Blood 03/22/2024 5:06 AM EDT 03/22/2024 5:12 AM EDT Narrative Resulting Agency Comment Spec In Lab Horace Hancock MD HEMATOLOGY ORDERABLE S [facility] [place] [address] * Basic Metabolic Panel (non-fasting) (03/22/2024 5:06 AM EDT) [facility] Glucose Lvl 107 65 - 199 mg/dL [facility] Comment:Diabetes: >=200 mg/d L plus symptoms BUN 18 8 - 18 mg/dL [facility] Creatinine 0.87 0.70 - 1.20 mg/dL [facility] Sodium 138 135 - 145 mmol/L [facility] Potassium 4.1 3.5 - 5.0 mmol/L [facility] Comment: Please note: ??Patients with WBC >100,000 may have falsely elevated Potassium levels. ??For accurate Potassium quantification in these patients send serum separator tube (gold top) for subsequent determinations. ??Contact the Clinical Chemistry Laboratory if there are any questions. Chloride 104 98 - 107 mmol/L [facility] CO2 24 22 - 31 mmol/L [facility] Anion Gap 10 5 - 15 mmol/L [facility] Calcium 9.2 8.5 - 10.5 mg/dL [facility] Estimated GFR 76 >=60 mL/min/1. 73 m?? [facility] Comment: This patient's estimated GFR [...] In Lab Horace Hancock MD CHEMISTRY ORDERABLES [facility] [place] [address] * Magnesium (03/22/2024 5:06 AM EDT) Magnesium 0.90 0.69 - 1.07 mmol/L [facility] Blood 03/22/2024 5:06 AM EDT 03/22/2024 5:12 AM EDT Narrative Resulting Agency Comment Spec In Lab Destin Ambrosio MD [place] [address] * (ABNORMAL) Differential, Automated (03/21/2024 2:57 AM EDT) Neutrophils % 63.0 % [facility] Neutr Abs (ANC) 6.70(H) 1.70 - 6.10 x10(3)/ L [facility] Lymphocytes % 24.9 % [facility] Lymphocytes Abs 2.6 0.9 - 3.2 x10(3)/[facility] Monocytes % 8.7 % [facility] Monocyte Abs 0.9 0.3 - 0.9 x10(3)/[facility] Eosinophils % 2.8 % [facility] Eosinophils Abs 0.3 0.0 - 0.4 x10(3)/[facility] Basophils % 0.3 % [facility] Basophils Abs 0.0 0.0 - 0.1 x10(3)/[facility] Immature Gran % 0.30 % [facility] Comment: Immature granulocytes(IG's)percentage and absolute count will include metamyelocytes, myelocytes, and promyelocytes. Blood smears from CBCs yielding IG's will be scanned manually for concordance. If this scan disagrees with the automated IG or if promyelocytes are noted, a manual differential will be performed. Lesia Gran Abs 0.03 0.00 - 0.04 x10(3)/[facility] Blood 03/21/2024 2:57 AM EDT 03/21/2024 3:03 AM EDT Narrative Resulting Agency Comment Spec In Lab Horace Hancock MD [place] [address] * (ABNORMAL) Hemogram (03/21/2024 2:57 AM EDT) WBC 10.6(H) 4.0 - 9.5 x10(3)/[facility] LABOR[facility] RBC 4.54 4.00 - 5.21 x10(6)/[facility] Hemoglobin 12.8 11.7 - 15.5 g/dL [facility] Hematocrit 38.2 35.7 - 45.8 % [facility] MCV 84.1 82.6 - 94.4 [facility] MCH 28.2 27.1 - 32.0 pg [facility] MCHC 33.5 31.7 - 35.0 g/dL [facility] Platelets 242 145 - 357 x10(3)/[facility] LABORATORY RDWSD 42.4 37.0 - 46.0 [facility] RDWCV 13.7 11.5 - 14.1 % [facility] MPV 9.5 7.6 - 12.9 [facility] nRBC % Auto 0.0 % [facility] nRBC Abs Auto 0.000 0.000 - 0.000 x10(3)/[facility] Blood 03/21/2024 2:57 AM EDT 03/21/2024 3:03 AM EDT Narrative Resulting Agency Comment Spec In Lab Horace Hancock MD HEMATOLOGY ORDERABLE S [facility] [address] [place] [address] * Basic Metabolic Panel (non-fasting) (03/21/2024 2:57 AM EDT) Pathologist [facility] Glucose Lvl 98 65 - 199 mg/dL [facility] Comment:Diabetes: >=200 mg/d L plus symptoms BUN 15 8 - 18 mg/dL [facility] Creatinine 0.82 0.70 - 1.20 mg/dL [facility] Sodium 144 135 - 145 mmol/L [facility] Potassium 4.2 3.5 - 5.0 mmol/L [facility] Comment: Please note: ??Patients with WBC >100,000 may have falsely elevated Potassium levels. ??For accurate Potassium quantification in these patients send serum separator tube (gold top) for subsequent determinations. ??Contact the Clinical Chemistry Laboratory if there are any questions. Chloride 107 98 - 107 mmol/L [facility] CO2 25 22 - 31 mmol/L [facility] Anion Gap 12 5 - 15 mmol/L [facility] Calcium 9.2 8.5 - 10.5 mg/dL [facility] Estimated GFR 82 >=60 mL/min/1. 73 m?? [facility] Comment: This patient's estimated GFR [...] In Lab Horace Hancock MD CHEMISTRY ORDERABLES [facility] [place] [address] * Magnesium (03/21/2024 2:57 AM EDT) Magnesium 0.91 0.69 - 1.07 mmol/L [facility] Blood 03/21/2024 2:57 AM EDT 03/21/2024 3:03 AM EDT Narrative Resulting Agency Comment Spec In Lab Destin Ambrosio MD CHEMISTRY ORDERABLES Performing Organization Address [facility] Co de Phone Number [facility] [place] [address] * Metanephrines, Fractionated Free, plasma (03/21/2024 2:57 AM EDT) Normetane Free 0.47 <0.90 nmol/L [facility] Comment: Test Performed by: [facility] [place] [address] Chief Accounting Officer: Chasity Hernandez Ph.D.; CLIA# [id number] Metanephr Free <0.20 <0.50 nmol/L [facility] Comment: ADDITIONAL INFORMATION This test was developed and its performance characteristics determined by [facility] in a manner consistent with CLIA requirements. This test has not been cleared or approved by the U.S. Food and Drug Administration. Test Performed by: [facility] [place] [address] Chief Accounting Officer: Chasity Hernandez Ph.D.; CLIA# [id number] Blood 03/21/2024 2:57 AM EDT 03/21/2024 11:29 AM EDT Narrative Resulting Agency Comment Spec In Lab Horace Hancock MD CHEMISTRY ORDERABLES Performing Organization Address City/[facility]/ZIP Co de Phone Number [facility] [place] [address] * Iron and TIBC (03/20/2024 10:38 AM EDT) Iron 57 30 - 150 mcg/dL [facility] TIBC 278 250 - 450 mcg/dL [facility] Iron Saturation 21 20 - 50 % [facility] Blood Venous Draw / Unknown 03/20/2024 10:38 AM EDT 03/20/2024 10:52 AM EDT Narrative Resulting Agency Comment Spec In Lab Horace Hancock MD CHEMISTRY ORDERABLES [facility] [place] [address] * (ABNORMAL) Differential, Automated (03/20/2024 10:38 AM EDT) Neutrophils % 73.1 % [facility] Neutr Abs (ANC) 9.60(H) 1.70 - 6.10 x10(3)/[facility] Lymphocytes % 17.3 % [facility] Lymphocytes Abs 2.3 0.9 - 3.2 x10(3)/[facility] Monocytes % 7.5 % [facility] Monocyte Abs 1.0(H) 0.3 - 0.9 x10(3)/[facility] Eosinophils % 1.5 % [facility] Eosinophils Abs 0.2 0.0 - 0.4 x10(3)/[facility] Basophils % 0.3 % [facility] Basophils Abs 0.0 0.0 - 0.1 x10(3)/[facility] Immature Gran % 0.30 % [facility] Comment: Immature granulocytes(IG's)percentage and absolute count will include metamyelocytes, myelocytes, and promyelocytes. Blood smears from CBCs yielding IG's will be scanned manually for concordance. If this scan disagrees with the automated IG or if promyelocytes are noted, a manual differential will be performed. Lesia Gran Abs 0.04 0.00 - 0.04 x10(3)/[facility] Blood 03/20/2024 10:3 8 AM EDT 03/20/2024 10:47 AM EDT Narrative Resulting Agency Comment Spec In Lab Horace Hancock MD HEMATOLOGY ORDERABLE S [facility] [place] [address] * (ABNORMAL) Hemogram (03/20/2024 10:38 AM EDT) WBC 13.2(H) 4.0 - 9.5 x10(3)/[facility] LABORATORY RBC 4.66 4.00 - 5.21 x10(6)/[facility]ORY Hemoglobin 13.0 11.7 - 15.5 g/dL [facility] Hematocrit 38.7 35.7 - 45.8 % [facility] MCV 83.0 82.6 - 94.4 [facility]ATORY MCH 27.9 27.1 - 32.0 pg [facility] MCHC 33.6 31.7 - 35.0 g/dL [facility] Platelets 238 145 - 357 x10(3)/[facility] LABORATORY RDWSD 41.7 37.0 - 46.0 [facility]ORY RDWCV 13.8 11.5 - 14.1 % [facility] MPV 9.8 7.6 - 12.9 [facility]ORY nRBC % Auto 0.0 % [facility] nRBC Abs Auto 0.000 0.000 - 0.000 x10(3)/[facility]ORY Blood 03/20/2024 10:3 8 AM EDT 03/20/2024 10:47 AM EDT Narrative Resulting Agency Comment Spec In Lab Horace Hancock MD HEMATOLOGY ORDERABLE S [facility] [place] [address] * Magnesium (03/20/2024 10:38 AM EDT) Magnesium 0.88 0.69 - 1.07 mmol/L [facility] Blood 03/20/2024 10:3 8 AM EDT 03/20/2024 10:47 AM EDT Narrative Resulting Agency Comment Spec In Lab Horace Hancock MD CHEMISTRY ORDERABLES [facility] [place] [place] [address] * Basic Metabolic Panel (non-fasting) (03/20/2024 10:38 AM EDT) Glucose Lvl 108 65 - 199 mg/dL [facility] Comment:Diabetes: >=200 mg/d L plus symptoms BUN 11 8 - 18 mg/dL [facility] Creatinine 0.82 0.70 - 1.20 mg/dL [facility] Sodium 137 135 - 145 mmol/L [facility] Potassium 4.3 3.5 - 5.0 mmol/L [facility] Comment: Please note: ??Patients with WBC >100,000 may have falsely elevated Potassium levels. ??For accurate Potassium quantification in these patients send serum separator tube (gold top) for subsequent determinations. ??Contact the Clinical Chemistry Laboratory if there are any questions. Chloride 101 98 - 107 mmol/L [facility] CO2 22 22 - 31 mmol/L [facility] Anion Gap 14 5 - 15 mmol/L [facility] Calcium 9.0 8.5 - 10.5 mg/dL [facility] Estimated GFR 82 >=60 mL/min/1. 73 m?? [facility] Comment: This patient's estimated GFR [...] Hancock MD CHEMISTRY ORDERABLES Performing Organization Address City/[facility]/ZIP Co de Phone Number [facility] [place] [address] * Magnesium (03/19/2024 11:01 PM EDT) Magnesium 0.96 0.69 - 1.07 mmol/L [facility] Blood Venous Draw / Unknown 03/19/2024 11:01 PM EDT 03/19/2024 11:06 PM EDT Narrative Resulting Agency Comment Spec In Lab Horace Hancock MD CHEMISTRY ORDERABLES Performing Organization Address [facility] Co de Phone Number [facility] [place] [address] * (ABNORMAL) Troponin (03/19/2024 11:01 PM EDT) Troponin-T HS 2,406(H) <=14 ng/L [facility] Comment: This patient's troponin T [...] can be found in the [facility] Test Catalog Troponin - [facility] Test Catalog Reference: Fourth [place] Definition of Myocardial Infarction. Journal of the [place] [employer] 2018;72:9588-4925 Blood 03/19/2024 11:0 1 PM EDT 03/19/2024 11:05 PM EDT Narrative Resulting Agency Comment Spec In Lab Franky Mead MD CHEMISTRY ORDERABLE S [facility] [place] [address] * (ABNORMAL) Troponin (03/19/2024 8:40 PM EDT) Troponin-T HS 2,586(H) <=14 ng/L [facility] Comment: This patient's troponin T [...] can be found in the [facility] Test Catalog Troponin - [facility] Test Catalog Reference: Fourth [place] Definition of Myocardial Infarction. Journal of the [place] [employer] 2018;72:3206-0923 Blood 03/19/2024 8:40 PM EDT 03/19/2024 8:45 PM EDT Narrative Resulting Agency Comment Spec In Lab Ganesh Nguyen MD CHEMISTRY ORDERAB LES Performing Organization Address City/[facility]/ZIP Co de Phone Number [facility] [place] [address] * EKG 12 Lead (03/19/2024 8:32 PM EDT) Ventricular rate 70 BPM MUSE SYSTEM Atrial Rate 70 BPM MUSE SYSTEM P-R Interval 158 ms MUSE SYSTEM QRS Duration 78 ms MUSE SYSTEM Q-T Interval 470 ms MUSE SYSTEM QTC Calculated (Bezet) 507 ms MUSE SYSTEM Calculated P [place] 62 degrees MUSE SYSTEM Calculated R [place] 42 degrees MUSE SYSTEM Calculated T [place] -158 degrees MUSE SYSTEM INTERPRETATION Normal sinus rhythm Poor R wave progression T wave abnormality, consider lateral ischemia Prolonged QT Abnormal ECG When compared with ECG of 19-MAR-2024 17:27, No significant change was found Confirmed by MD Ambrosio David ([id number]) on 03/23/2024 8:10:58 AM MUSE SYSTEM 03/19/2024 8:32 PM EDT 03/23/2024 8:10 AM EDT Franky Mead MD ECG ORDERABLES Performing Organization Address City/[facility]/ZIP Co de Phone Number MUSE SYSTEM * EKG 12 Lead (03/19/2024 5:27 PM EDT) Ventricular rate 70 BPM MUSE SYSTEM Atrial Rate 70 BPM MUSE SYSTEM P-R Interval 154 ms MUSE SYSTEM QRS Duration 80 ms MUSE SYSTEM Q-T Interval 460 ms MUSE SYSTEM QTC Calculated (Bezet) 496 ms MUSE SYSTEM Calculated P [place] 80 degrees MUSE SYSTEM Calculated R [place] 87 degrees MUSE SYSTEM Calculated T [place] -96 degrees MUSE SYSTEM INTERPRETATION Normal sinus rhythm T wave abnormality, consider lateral ischemia Prolonged QT Abnormal ECG When compared with ECG of 19-MAR-2024 02:23, Non-specific change in ST segment in Anterior leads T wave inversion more evident in Inferior leads T wave inversion now evident in Anterolateral leads Confirmed by MD Ambrosio David ([id number]) on 03/23/2024 8:10:45 AM MUSE SYSTEM 03/19/2024 5:27 PM EDT 03/23/2024 8:10 AM EDT Unknown ECG ORDERABLES MUSE SYSTEM * (ABNORMAL) Troponin (03/19/2024 2:45 PM EDT) Troponin-T HS 3,792(H) <=14 ng/L [facility] Comment: This patient's troponin T [...] can be found in the [facility] Test Catalog Troponin - [facility] Test Catalog Reference: Fourth [place] Definition of Myocardial Infarction. Journal of the [place] [employer] 2018;72:9010-2456 Blood 03/19/2024 2:45 PM EDT 03/19/2024 2:54 PM EDT Narrative Resulting Agency Comment Spec In Lab Horace Hancock MD CHEMISTRY ORDERABLES [facility] [place] [address] * ECHO COMPLETE W CONTRAST (03/19/2024 10:53 AM EDT) Anatomical Region Laterality Modality Cardiac Other 03/19/2024 9:03 AM EDT Narrative 03/19/2024 12:12 PM EDT [address] [place] [id number] ? Echocardiogram Report Name: ISA RO ?Study Date: 03/19/2024 09:03 AMBP: 129/68 mmHg ? Patient Location: 4A : 1965 ? Height: 158 cm ? Account: [id number] Age: 59 yrs ? Weight: 57 kg Gender: Female ?BSA: 1.6 m2 Ordering Physician: GANESH NGUEYN Referring Physician: GANESH NGUYEN Performed By: PEREZ Carlos Reason For Study: STEMI involving LAD Exam Location: [facility]. Interpretation Summary Normal left ventricle size with mildly reduced LV function. LV ejection fraction 49%. LAD territory wall motion abnormality, predominantly involving the LV apex. No LV thrombus visualized with echo contrast. Normal right ventricle. No significant valvular abnormalities. Compared with prior echo dated 08/28/23, LV function has now decreased and new wall motion abnormalities. Procedure Complete-[id number]. Image enhancement Definity was used for left [...] Note Destin Ambrosio MD - 03/19/2024 [address] [place] [address] Echocardiogram Report Name: ISA RO Study Date: 409:03 AMBP: 129/68 mmHg Patient Location: : 1965 Height: 158 cm Account: [id number] Age: 59 yrs Weight: 57 kg Gender: Female BSA: 1.6 m2 Ordering Physician: GANESH NGUYEN Referring Physician: GANESH NGUYEN Performed By: EPREZ Carlos Reason For Study: STEMI involving LAD Exam Location: [facility]. Interpretation Summary Normal left ventricle size with mildly reduced LV function. LV ejectionfraction 49%. LAD territory wall motion abnormality, predominantly involving the LVapex. No LV thrombus visualized with echo contrast. Normal right ventricle. No significant valvular abnormalities. Compared with prior echo dated 08/28/23, LV function has now decreased andnew wall motion abnormalities. Procedure Complete-[id number]. Image enhancement Definity was used for left [...] View (03/19/2024 8:37 AM EDT) WORKSTATION ID [id number] RAD Anatomical Region Laterality Modality Chest N/A [...] who have questions please contact the health managed care analyst that requested your imaging first. ? Electronically signed by: Isa Whitley MD, [facility] ??([phone]), at 03/19/2024 10:09 AM Narrative 03/19/2024 10:09 [...] patients who have questions please contactthe health managed care analyst that requested your imaging first. Delores Jett MD IMG DX ORDERABLES * Hemoglobin A1c (03/19/2024 5:25 AM EDT) Pathologist [facility] Hemoglobin A1C 5.6 4.3 - 5.6 % [facility] Comment: Reference Range: 4.3 - [...] Mellitus, Diabetes Care 2013; 36: Suppl. 1, B07-15 Est Avg Gluc 114 mg/dL [facility] Blood Venous Draw / Unknown 03/19/2024 5:25 AM EDT 03/19/2024 3:52 PM EDT Narrative Resulting Agency Comment Spec In Lab Horace Hancock MD CHEMISTRY ORDERABLES [facility] [place] [address] * (ABNORMAL) Differential, Automated (03/19/2024 5:25 AM EDT) Neutrophils % 90.0 % [facility] Neutr Abs (ANC) 16.73(H) 1.70 - 6.10 x10(3)/mc L [facility] Lymphocytes % 5.2 % [facility] Lymphocytes Abs 1.0 0.9 - 3.2 x10(3)/[facility] Monocytes % 4.2 % [facility] Monocyte Abs 0.8 0.3 - 0.9 x10(3)/[facility] Eosinophils % 0.0 % [facility] Eosinophils Abs 0.0 0.0 - 0.4 x10(3)/[facility] Basophils % 0.2 % [facility] Basophils Abs 0.0 0.0 - 0.1 x10(3)/[facility] Immature Gran % 0.40 % [facility] Comment: Immature granulocytes(IG's)percentage and absolute count will include metamyelocytes, myelocytes, and promyelocytes. Blood smears from CBCs yielding IG's will be scanned manually for concordance. If this scan disagrees with the automated IG or if promyelocytes are noted, a manual differential will be performed. Lesia Gran Abs 0.08(H) 0.00 - 0.04 x10(3)/[facility] Blood 03/19/2024 5:25 AM EDT 03/19/2024 5:34 AM EDT Narrative Resulting Agency Comment Spec In Lab Ganesh Nguyen MD HEMATOLOGY ORDERA BLES [facility] [place] [address] * (ABNORMAL) Hemogram (03/19/2024 5:25 AM EDT) WBC 18.6(H) 4.0 - 9.5 x10(3)/[facility]ORY RBC 4.92 4.00 - 5.21 x10(6)/[facility] Hemoglobin 13.7 11.7 - 15.5 g/dL [facility] Hematocrit 40.6 35.7 - 45.8 % [facility] MCV 82.5(L) 82.6 - 94.4 fL [facility] MCH 27.8 27.1 - 32.0 pg [facility] MCHC 33.7 31.7 - 35.0 g/dL [facility] Platelets 285 145 - 357 x10(3)/[facility]ORATORY RDWSD 41.1 37.0 - 46.0 fL [facility] RDWCV 13.6 11.5 - 14.1 % [facility] MPV 9.5 7.6 - 12.9 fL [facility] nRBC % Auto 0.0 % [facility] nRBC Abs Auto 0.000 0.000 - 0.000 x10(3)/[facility] Blood 03/19/2024 5:25 AM EDT 03/19/2024 5:34 AM EDT Narrative Resulting Agency Comment Spec In Lab Ganesh Nguyen MD HEMATOLOGY ORDERA BLES [facility] [place] [address] * Lipid Panel (Reflex Direct LDL) (03/19/2024 5:25 AM EDT) Chol, Total 324 mg/dL [facility] Comment: Desirable: ? <200 mg/dL Borderline High: 200-239 mg/dL Higher: ?>or=387 mg/dL Triglycerides 200 mg/dL [facility] Comment: Normal: ?<150 mg/dL Borderline High: 150-199 mg/dL High: ?200-499 mg/dL Very High: ? >on=053 mg/dL HDL 68 mg/dL [facility] Comment: Females: High Risk: <50 mg/dL Males: High Risk: <40 mg/dL LDL Cholesterol 216 mg/dL [facility] Comment: Desirable: ? <100 mg/dL Above Desirable: 100-129 mg/dL Borderline High: 130-159 mg/dL High: ?160-189 mg/dL Very High: ? >nd=780 mg/dL Lipid Interpretation See Note [facility] Comment: It is important to [...] ACC/AHA Guidelines (most recently Jw et al. [facility] 06/17/22): For individuals with atherosclerotic cardiovascular disease (ASCVD)or LDL >lu=433 mg/dL, use a high-intensity statin (40-80 mg [...] Lab Ganesh Nguyen MD CHEMISTRY ORDERAB LES [facility] [place] [address] * (ABNORMAL) Troponin (03/19/2024 5:25 AM EDT) Troponin-T HS 1,276(H) <=14 ng/L [facility] Comment: This patient's troponin T [...] can be found in the [facility] Test Catalog Troponin - [facility] Test Catalog Reference: Fourth [place] Definition of Myocardial Infarction. Journal of the [place] [employer] 2018;72:7838-3023 Blood 03/19/2024 5:25 AM EDT 03/19/2024 5:34 AM EDT Narrative Resulting Agency Comment Spec In Lab Ganesh Nguyen MD CHEMISTRY ORDERAB LES Performing Organization Address [facility] Co de Phone Number [facility] [place] [address] * APTT (03/19/2024 5:25 AM EDT) PTT 29 25 - 37 sec [facility] Comment: The PTT is NOT appropriate for heparin monitoring. Use the Anti-Xa level for heparin monitoring (HEP UFH) or LMWH monitoring (HEP LMW). A PTT less than 37 seconds generally indicates adequate hemostasis. Blood 03/19/2024 5:25 AM EDT 03/19/2024 5:34 AM EDT Narrative Resulting Agency Comment Spec In Lab Ganesh Nguyen MD HEMATOLOGY ORDERA BLES Performing Organization Address [facility] de Phone Number [facility] [place] [address] * Prothrombin Time (03/19/2024 5:25 AM EDT) PT 10.9 9.4 - 12.5 sec [facility] INR 1.[address] [facility] Comment: An INR <2.0 indicates [...] MD HEMATOLOGY ORDERA BLES Performing Organization Address [facility] Co de Phone Number [facility] [place] [address] * (ABNORMAL) Comprehensive metabolic panel (non-fasting) (03/19/2024 5:25 AM EDT) Glucose Lvl 181 65 - 199 mg/dL [facility] Comment:Diabetes: >=200 mg/d L plus symptoms BUN 14 8 - 18 mg/dL [facility] Creatinine 0.91 0.70 - 1.20 mg/dL [facility] Sodium 137 135 - 145 mmol/L [facility] Potassium 4.2 3.5 - 5.0 mmol/L [facility] Comment: Please note: ??Patients with WBC >100,000 may have falsely elevated Potassium levels. ??For accurate Potassium quantification in these patients send serum separator tube (gold top) for subsequent determinations. ??Contact the Clinical Chemistry Laboratory if there are any questions. Chloride 100 98 - 107 mmol/L [facility] CO2 22 22 - 31 mmol/L [facility] Anion Gap 15 5 - 15 mmol/L [facility] Calcium 8.7 8.5 - 10.5 mg/dL [facility] Total Protein 7.2 6.1 - 8.0 g/dL [facility] Albumin 4.5 3.2 - 5.2 g/dL [facility] AST 95(H) 0 - 30 unit/L [facility] Comment:result rechecked-bz ALT 31(H) 0 - 30 unit/L [facility] Alk Phos 70 35 - 105 unit/L [facility] Total Bilirubin 0.5 0.2 - 1.3 mg/dL [facility] Estimated GFR 72 >=60 mL/min/1. 73 m?? [facility] Comment: This patient's estimated GFR [...] MD CHEMISTRY ORDERAB LES Performing Organization Address City/[facility]/ZIP Co de Phone Number [facility] [place] [address] * EKG 12 Lead (03/19/2024 2:23 AM EDT) Ventricular rate 67 BPM MUSE SYSTEM Atrial Rate 67 BPM MUSE SYSTEM P-R Interval 152 ms MUSE SYSTEM QRS Duration 78 ms MUSE SYSTEM Q-T Interval 500 ms MUSE SYSTEM QTC Calculated (Bezet) 528 ms MUSE SYSTEM Calculated P [place] 54 degrees MUSE SYSTEM Calculated R [place] 56 degrees MUSE SYSTEM Calculated T [place] 31 degrees MUSE SYSTEM INTERPRETATION Normal sinus rhythm Prolonged QT Abnormal ECG No previous ECGs available Confirmed by MD Ambrosio David ([id number]) on 03/23/2024 8:10:32 AM MUSE SYSTEM 03/19/2024 2:23 AM EDT 03/23/2024 8:10 AM EDT Ganesh Nguyen MD ECG ORDERABLES Performing Organization Address City/[facility]/ZIP Co de Phone Number MUSE SYSTEM * (ABNORMAL) Differential, Automated (03/19/2024 2:20 AM EDT) Pathologist [facility] Neutrophils % 89.8 % [facility] Neutr Abs (ANC) 15.44(H) 1.70 - 6.10 x10(3)/mc L [facility] Lymphocytes % 6.4 % [facility] Lymphocytes Abs 1.1 0.9 - 3.2 x10(3)/mc L [facility] Monocytes % 2.9 % [facility] Monocyte Abs 0.5 0.3 - 0.9 x10(3)/mc L [facility] Eosinophils % 0.1 % [facility] Eosinophils Abs 0.0 0.0 - 0.4 x10(3)/mc L [facility] Basophils % 0.3 % [facility] Basophils Abs 0.0 0.0 - 0.1 x10(3)/mc L [facility] Immature Gran % 0.50 % [facility] Comment: Immature granulocytes(IG's)percentage and absolute count will include metamyelocytes, myelocytes, and promyelocytes. Blood smears from CBCs yielding IG's will be scanned manually for concordance. If this scan disagrees with the automated IG or if promyelocytes are noted, a manual differential will be performed. Lesia Gran Abs 0.08(H) 0.00 - 0.04 x10(3)/mc L [facility] Blood 03/19/2024 2:20 AM EDT 03/19/2024 2:59 AM EDT Narrative Resulting Agency Comment Spec In Lab Ganesh Nguyen MD HEMATOLOGY ORDERA BLES Performing Organization Address City/State/[facility] Co de Phone Number [facility] [place] [address] * (ABNORMAL) Hemogram (03/19/2024 2:20 AM EDT) WBC 17.2(H) 4.0 - 9.5 x10(3)/[facility] LABORATORY RBC 4.70 4.00 - 5.21 x10(6)/[facility]ORY Hemoglobin 13.3 11.7 - 15.5 g/dL [facility] Hematocrit 38.7 35.7 - 45.8 % [facility] MCV 82.3(L) 82.6 - 94.4 fL [facility] MCH 28.3 27.1 - 32.0 pg [facility] MCHC 34.4 31.7 - 35.0 g/dL [facility] Platelets 281 145 - 357 x10(3)/[facility]ORY RDWSD 41.0 37.0 - 46.0 fL [facility] RDWCV 13.7 11.5 - 14.1 % [facility] MPV 9.7 7.6 - 12.9 fL [facility] nRBC % Auto 0.0 % [facility] nRBC Abs Auto 0.000 0.000 - 0.000 x10(3)/mcL [facility] Blood 03/19/2024 2:20 AM EDT 03/19/2024 2:59 AM EDT Narrative Resulting Agency Comment Spec In Lab Ganesh Nguyen MD HEMATOLOGY ORDERA BLES [facility] [place] [address] * (ABNORMAL) Troponin (03/19/2024 2:20 AM EDT) Troponin-T HS 960(H) <=14 ng/L [facility] Comment: This patient's troponin [...] can be found in the [facility] Test Catalog Troponin - [facility] Test Catalog Reference: Fourth [place] Definition of Myocardial Infarction. Journal of the [place] [employer] 2018;72:2664-6501 Blood 03/19/2024 2:20 AM EDT 03/19/2024 2:59 AM EDT Narrative Resulting Agency Comment Spec In Lab Ganesh Nguyen MD CHEMISTRY ORDERAB LES Performing Organization Address [facility] Co de Phone Number [facility] [place] [address] * (ABNORMAL) APTT (03/19/2024 2:20 AM EDT) PTT 123(Criti lewis) 25 - 37 sec [facility] Comment: Critical Result called by [...] MD HEMATOLOGY ORDERA BLES Performing Organization Address [facility] de Phone Number [facility] [place] [address] * Prothrombin Time (03/19/2024 2:20 AM EDT) PT 11.7 9.4 - 12.5 sec [facility] INR [address] [facility] Comment: An INR <2.0 indicates [...] MD HEMATOLOGY ORDERA BLES Performing Organization Address [facility] Co de Phone Number [facility] [place] [address] * (ABNORMAL) Hepatic Function Panel (03/19/2024 2:20 AM EDT) Total Protein 6.7 6.1 - 8.0 g/dL [facility] Albumin 4.3 3.2 - 5.2 g/dL [facility] AST 49(H) 0 - 30 unit/L [facility] ALT 26 0 - 30 unit/L [facility] Alk Phos 67 35 - 105 unit/L [facility] Total Bilirubin 0.4 0.2 - 1.3 mg/dL [facility] Bili, Direct 0.1 0.0 - 0.3 mg/dL [facility] Blood 03/19/2024 2:20 AM EDT 03/19/2024 2:59 AM EDT Narrative Resulting Agency Comment Spec In Lab Ganesh Nguyen MD CHEMISTRY ORDERAB LES Performing Organization Address [facility] Co de Phone Number [facility] [place] [address] * (ABNORMAL) pro-Brain Natriuretic Peptide (03/19/2024 2:20 AM EDT) ProBNP 529(H) <=124 pg/mL [facility] Blood 03/19/2024 2:20 AM EDT 03/19/2024 2:59 AM EDT Narrative Resulting Agency Comment Spec In Lab Ganesh Nguyen MD CHEMISTRY ORDERAB LES Performing Organization Address [facility] Co de Phone Number [facility] [place] [address] * Phosphorus (03/19/2024 2:20 AM EDT) Phosphorus 3.8 2.5 - 4.5 mg/dL [facility] Blood 03/19/2024 2:20 AM EDT 03/19/2024 2:59 AM EDT Narrative Resulting Agency Comment Spec In Lab Ganesh Nguyen MD CHEMISTRY ORDERAB LES Performing Organization Address City/[facility] Co de Phone Number [facility] [place] [address] * Magnesium (03/19/2024 2:20 AM EDT) Magnesium 0.71 0.69 - 1.07 mmol/L [facility] Blood 03/19/2024 2:20 AM EDT 03/19/2024 2:59 AM EDT Narrative Resulting Agency Comment Spec In Lab Ganesh Nguyen MD CHEMISTRY ORDERAB LES Performing Organization Address [facility] Co de Phone Number [facility] [place] [address] * (ABNORMAL) Basic Metabolic Panel (non-fasting) (03/19/2024 2:20 AM EDT) Glucose Lvl 160 65 - 199 mg/dL [facility] Comment:Diabetes: >=200 mg/d L plus symptoms BUN 14 8 - 18 mg/dL [facility] Creatinine 0.88 0.70 - 1.20 mg/dL [facility] Sodium 137 135 - 145 mmol/L [facility] Potassium 3.9 3.5 - 5.0 mmol/L [facility] Comment: Please note: ??Patients with WBC >100,000 may have falsely elevated Potassium levels. ??For accurate Potassium quantification in these patients send serum separator tube (gold top) for subsequent determinations. ??Contact the Clinical Chemistry Laboratory if there are any questions. Chloride 100 98 - 107 mmol/L [facility] CO2 20(L) 22 - 31 mmol/L [facility] Anion Gap 17(H) 5 - 15 mmol/L [facility] Calcium 8.2(L) 8.5 - 10.5 mg/dL [facility] Estimated GFR 75 >=60 mL/min/1. 73 m?? [facility] Comment: This patient's estimated GFR [...] MD CHEMISTRY ORDERAB LES Performing Organization Address City/State/[facility] Co de Phone Number [facility] [place] [address] * (ABNORMAL) Point of Care Blood Gas Historical (03/19/2024 1:41 AM EDT) POC pH 7.28(Criti lewis) 7.35 - 7.45 [facility] POC PCO2 40 35 - 45 mmHg [facility] POC PO2 84(L) 85 - 104 mmHg [facility] POC Base Excess -8.0(L) -3.0 - 3.0 mmol/L [facility] POC HCO3 18.6(L) 20.0 - 26.0 mmol/L [facility] POC TCO2 20(L) 22 - 31 mmol/L [facility] POC Sodium 134(L) 135 - 145 mmol/L [facility] POC Potassium 3.4(L) 3.5 - 5.0 mmol/L [facility] POC Ionized Ca 1.09(L) 1.15 - 1.33 mmol/L [facility] POC Hematocrit 38.0 34.0 - 45.0 % [facility] POC Calc Hgb 12.9 11.2 - 15.7 g/dL [facility] Blood 03/19/2024 1:41 AM EDT 03/19/2024 1:41 AM EDT Kathryn Walker MD CHEMISTRY ORDERABL ES [facility] [place] [address] * CARDIAC CATHETERIZATION (03/19/2024 1:36 AM EDT) Anatomical Region Laterality Modality Other Narrative 03/19/2024 7:19 AM EDT ?[facility] ? Cardiac Catheterization/Intervention Report ? Patient Name: Isa Ro. ? Procedure Date: 03/19/2024 ? A #: [id number] ? Primary Physician: Ramo Roy ? Case #: [id number] ? File Name: [id number] ? Catheterization Order Number: [id number] ? [facility] ? Final Report [place], [place] ? Patient Name: ? Isa A. Warnaar ? ID#: ?[id number] ? : ?1965 ? Procedure Date: ? March 19, 2024 ? Case #: ? [id number] ? Room: ? 6 ? Case Physician: ? Ramo Roy M.D. ? Start: ?00:55 ?Fellow: ? Max J Ludwig, M.D. ? Admission: ??03/18/2024 ? Referring Physician: ??aFcundo WILEY M.D. ? Procedures: ?* Coronary Angiography [...] procedure was Emergent. The indication for ?the garden labourer visit is ACS less than or equal [...] ?3.5 guiding catheter and a 3.5 Fr [place] 20 Mhz using auto 1 ?mm/sec pullback. [...] ? A premounted 3.00 x 08 mm [place] (JAHAIRA) was deployed ? with a maximum inflation pressure of 12 atmospheres. ? Another stent insertion was accomplished through a 6 Fr. EBU ? 3.5 guide. ??A premounted 2.00 x 08 mm [place] (JAHAIRA) was ? deployed. ? The final [...] dose administered prior to arrival in the garden labourer. ?Recommended anti-platelet/anti-thrombotic regimen: ?Start aspirin 81 mg [...] Procedure Note Ramo Roy MD - 03/21/2024 [facility] Cardiac Catheterization/Intervention Report Patient Name: Isa Ro Procedure Date: 03/19/2024 A #: [id number] Primary Physician: Ramo Roy Case #: [id number] File Name: [id number] Catheterization Order Number: [id number] [facility] FinalReport [place], [place] Patient Name: Isa Ro ID#:[id number] :1965 Procedure Date: March 19, 2024 Case [...] patientwas designated as ASA Class IV. The [facility] clinical frailty scale is 3: Managing Well. Diagnostic Tests: Prior Coronary Angiography: Prior coronary angiography was performed on 12/15/2014. Electrocardiography: EKG was assessed by ECG. EKG was Abnormal. EKG showed STDeviation >= 0.5 mm and other abnormality. Medications Prior to Procedure: Aspirin. Indications for Diagnostic Cath: The priority of the diagnostic procedure was Emergent. Theindication for the garden labourer visit is ACS less than or equal [...] 3.5 guiding catheter and a 3.5 Fr [place] 20 Mhz usingauto 1 mm/sec pullback. Imaging [...] The priority for the procedure was Emergent.[facility] indication for the procedure was STEMI-Immediate [...] The lesion was predilated with a 2.50mm [id number] MM balloon with a maximum inflation pressure of 14atmospheres. A premounted 3.00 x 08 mm [place] (JAHAIRA) wasdeployed with a maximum inflation pressure of 12 atmospheres. Another stent insertion was accomplished through a 6 Fr.EBU 3.5 guide. A premounted 2.00 x 08 mm [place] (JAHAIRA)was deployed. The final outcome was defined [...] dose administered prior to arrival in the garden labourer. Recommended anti-platelet/anti-thrombotic regimen: Start aspirin 81 mg [...] POC pH 7.20(Criti lewis) 7.35 - 7.45 [facility] POC PCO2 38 35 - 45 mmHg [facility] POC PO2 74(L) 85 - 104 mmHg [facility] POC Base Excess -14.0(L) -3.0 - 3.0 mmol/L [facility] POC HCO3 14.5(L) 20.0 - 26.0 mmol/L [facility] POC TCO2 16(L) 22 - 31 mmol/L [facility] POC Sodium 116(Critic al) 135 - 145 mmol/L [facility] POC Potassium 3.1(L) 3.5 - 5.0 mmol/L [facility] POC Ionized Ca 1.04(L) 1.15 - 1.33 mmol/L [facility] POC Hematocrit 39.0 34.0 - 45.0 % [facility] POC Calc Hgb 13.3 11.2 - 15.7 g/dL [facility] Blood 03/19/2024 1:26 AM EDT 03/19/2024 1:26 AM EDT Kathryn Walker MD CHEMISTRY ORDERABL ES [facility] [address] [place] [address] documented in this encounter Visit Diagnoses Diagnosis [...] on 03/19/24 at 1700, Until Discontinued, Routine Given 03/22/2024 [...] Routine 0833 (Given - Provider: Izaiah Jimenez RN)2053 (Given - Provider: Javon Sykes RN) 0857 [...] Routine documented in this encounter Care Teams Elevator Examiner Relationship Specialty Start Date End Date None None PCP - General 03/19/24 documented as of this encounter
--- OUTSIDE RECORDS SUMMARY | 2024-04-06 11:17 | XMS_ITS | Encounter Summary ---
[place] [address] Care Team Providers Care Photo Mask Inspector Name Role Phone Pretty Avery MD Primary Care Provider Reason for Referral * Diagnostic Test (Routine) - Closed Specialty Diagnoses / Procedures Referred By Contac t Referred To Contact Cardiology Diagnoses Hyperlipidemia, unspecified hyperlipidemia type Procedures Mobile Demi Gross APRN [address] [place] [address] [facility] [place] [address] Referral ID Status Reason Start Date Expiration Date V isits Requested Visits Authorized [id number] Closed Specialty Service Requested 08/28/2023 08/27/2024 1 1 Reason for Visit * Diagnostic Test (Routine) - Closed Specialty Diagnoses / Procedures Referred By Contac t Referred To Contact Cardiology Diagnoses Hyperlipidemia, unspecified hyperlipidemia type Procedures Mobile Echo Demi Archibald APRN [address] [place] [address] [facility] [place] [address] Referral ID Status Reason Start Date Expiration Date V isits Requested Visits Authorized [id number] Closed Specialty Service Requested 08/28/2023 08/27/2024 1 1 Encounter Details Date Type Department Care Team (Latest Contact Info) Description 08/28/2023 3:53 PM EST - 08/28/2023 11:59 PM EST Hospital Encounter Mobile [place] [address] Demi Archibald APRN [address] [place] [address] Hyperlipidemia, unspecified hyperlipidemia type Discharge Disposition: Home [...] 10:40 AM EDT Office Visit Cardiology at [address] [phone] Herlinda Weaver [place] [facility] [place] [address] documented as of this encounter Procedures Procedure Name Priority Date/Time Associated Diagnosis Comments ECHO COMPLETE Routine 08/28/2023 4:04 PM EST Hyperlipidemia, unspecified hyperlipidemia type documented in this encounter Results * ECHO COMPLETE (08/28/2023 4:04 PM EST) Anatomical Region Laterality Modality Other 08/28/2023 2:15 PM EST Narrative 08/28/2023 4:14 PM EST [address] [place] [address] ? Echocardiogram Report Name: EZEQUIEL THOMAS ?Study Date: 08/28/2023 02:15 PM ? Patient Location: : 1965 ? Height: 157 cm ? Account: [id number] Age: 58 yrs ? Weight: 57 kg Gender: Female ?BSA: 1.6 m2 Ordering Physician: DEMI ARCHIBALD Referring Physician: DEMI ARCHIBALD Reason For Study: CAD, HLD, HTN Exam Location: [facility]. Interpretation Summary Normal biventricular size and function. LVEF 60-65% by visual assessment. Normal diastolic function. Normal pulmonary pressures. Normal atrial sizes. Mild mitral regurgitation. No prior for comparison. Procedure Complete-[id number]. Satisfactory quality. Left Ventricle Wall thickness is [...] Note Kaylee Sutherland MD - 08/28/2023 1 [place] [address] Echocardiogram Report Name: EZEQUIEL THOMAS Study Date:08/28/2023 02:15 PM Patient Location: : 1965 Height: 157 cm Account: [id number] Age: 58 yrs Weight: 57 kg Gender: Female BSA: 1.6 m2 Ordering Physician: DEMI ARCHIBALD Referring Physician: DEMI ARCHIBALD Reason For Study: CAD, HLD, HTN Exam Location: [facility]. Interpretation Summary Normal biventricular size and function. LVEF 60-65% by visual assessment.Normal diastolic function. Normal pulmonary pressures. Normal atrial sizes. Mild mitral regurgitation. No prior for comparison. Procedure Complete-[id number]. Satisfactory quality. Left Ventricle Wall thickness is [...] type documented in this encounter Care Teams Photo Mask Inspector Relationship Specialty Start Date End Date Pretty Avery MD [address] [place] [address] PCP - General 08/06/10 03/18/24 documented as of this encounter
--- OUTSIDE RECORDS SUMMARY | 2024-04-06 11:17 | XMS_ITS | Encounter Summary ---
Author Organization [facility] [place] [address] Care Team Providers Care Hot Plate Plywood Press Operator Name Role Phone Pretty Avery MD Primary Care Provider [phone] Encounter Details Date Type Department Care Team (Late st Contact Info) Description 12/08/2023 10:30 AM EDT Office Visit Dermatology at [address] [place] [address] Aylin Cole MD [address] [place] [address] Skin cancer screening; Inflamed seborrheic keratosis; History [...] for FBSE otherwise PRN []Note routed to physician office secretary [x]Recall placed in scheduling system []Appointment scheduled at checkout Scribe attestation: Juliet Angulo [facility] has performed the documentation for this encounter in the presence of and acting as a scribe for Aylin Cole MD. I performed the above scribed service and agree with the accuracy of the documentation in this encounter. Reviewed and signed by: Aylin Cole MD Dermatology [facility] documented in this encounter Plan of Treatment Upcoming Encounters Date Type Department Care Team (Late st Contact Info) Description 05/09/2024 10:40 AM EDT Office Visit Cardiology at [address] [place] [address] Herlinda Weaver [place] [address] documented as of this encounter Visit Diagnoses Diagnosis Skin cancer screening Screening for malignant neoplasm of the skin Inflamed seborrheic keratosis History of basal cell carcinoma (BCC) Seborrheic dermatitis Seborrheic dermatitis, unspecified Seborrheic keratoses Multiple benign nevi of upper extremity, lower extremity, and trunk Lentigines Other dyschromia Garcia angioma Nevus, non-neoplastic documented in this encounter Care Teams Hot Plate Plywood Press Operator Relationship Specialty Start Date End Date Pretty Avery MD [address] [place] [address] PCP - General 08/06/10 03/18/24 documented as of this encounter
--- OUTSIDE RECORDS SUMMARY | 2024-04-06 11:17 | XMS_ITS | Encounter Summary ---
Author Organization [facility] [place] [address] Care Team Providers Care Centrifuge Separator Tender Name Role Phone None Primary Care Provider Unavailabl e Encounter Details Date Type Department Care Team (Late st Contact Info) Description 03/18/2024 External Results Emergency Department [facility] [place] [phone] Social History Tobacco Use Types Packs/Day Years Used Date Smoking Tobacco: Former Smokeless Tobacco: Never [facility] Utilities Answer Date Recorded In [...] time in the past 12 m [facility], were you homeless or living in a skilled nursing (including now)? No 03/21/2024 IPV Inpatient Questions [...] 10:40 AM EDT Office Visit Cardiology at [address] [place] [address] Herlinda Weaver PA [facility] [place] [address] documented as of this encounter Procedures Procedure [...] on filedocumented in this encounter Care Teams Centrifuge Separator Tender Relationship Specialty Start Date End Date None None PCP - General 03/19/24 documented as of this encounter
--- OUTSIDE RECORDS SUMMARY | 2024-04-06 11:17 | XMS_ITS | Encounter Summary ---
Author Organization [facility] [place] [address] Care Team Providers Care Storekeeper Engineering Name Role Phone Pretty Avery MD Primary Care Provider [phone] Reason for Visit * Reason Comments Skin Check hx of SCC Encounter Details Date Type Department Care Team (Late st Contact Info) Description 01/14/2019 1:30 PM EDT Office Visit Dermatology at [facility] [address] [place] [address] Patrizia Moralez MD [facility] [address] [place] [address] Multiple benign nevi; Lentigines; Seborrheic keratosis; History [...] History: Left lower back, sBCC, ED&C on [facility]77[facility] Seborrheic keratoses Family History: Melanoma: None Father [...] by: Patrizia Moralez MD Resident in Dermatology [facility] Patient seen and evaluated with staff manager pe: Lisa Candelario MD Section of Dermatology [facility] * Lisa Candelario MD - 01/14/2019 1:30 [...] AM EDT Office Visit Cardiology at [address] [place] [address] Herlinda Weaver [place] [address] documented as of this encounter Visit Diagnoses Diagnosis Multiple benign nevi Benign neoplasm of skin, site unspecified Lentigines Other dyschromia Seborrheic keratosis Other seborrheic keratosis History of basal cell cancer Personal history of other malignant neoplasm of skin Garcia angioma Nevus, non-neoplastic Skin cancer screening Screening for malignant neoplasm of the skin Arthropod bite, initial encounter documented in this encounter Care Teams Storekeeper Engineering Relationship Specialty Start Date End Date Pretty Avery MD [address] [place] [address] PCP - General 08/06/10 03/18/24 documented as of this encounter
--- OUTSIDE RECORDS SUMMARY | 2024-04-06 11:17 | XMS_ITS | Encounter Summary ---
Author Organization [facility] [place] [address] Care Team Providers Care Order Processor Name Role Phone Pretty Avery MD Primary Care Provider [phone] Encounter Details Date Type Department Care Team [...] 10:40 AM EDT Office Visit Cardiology at [address] [place] [address] Herlinda Weaver [place] [facility] [place] [address] documented as of this encounter Visit Diagnoses Not on filedocumented in this encounter Care Teams Order Processor Relationship Specialty Start Date End Date Pretty Avery MD [address] [place] [address] PCP - General 08/06/10 03/18/24 documented as of this encounter
--- OUTSIDE RECORDS SUMMARY | 2024-04-06 11:17 | XMS_ITS | Encounter Summary ---
Author Organization [facility] [place] [address] Care Team Providers Care Ship Rigger Name Role Phone None Primary Care Provider Unavailabl e Encounter Details Date Type Department Care Team (Late st Contact Info) Description 03/18/2024 Telephone Cardiology at [address] [address] Yusuf Herrera MD [facility] [place] [address] Social History Tobacco Use Types Packs/Day Years Used Date Smoking Tobacco: Former Smokeless Tobacco: Never [facility] Inpatient Questions Answer Date Recorded Does Anyone [...] 03/19/24 Initial Contact Time: 2209 Patient Location: [facility] Presenting Symptoms per OSH: 59 year old female, history of CAD c/b NSTEMI (see below), hypertension, hyperlipidemia, who was resting at home at 20:30 when she developed substernal chest pressure radiating to right arm which wasvery severe and reminiscent of prior NV. Associated with diaphoresis. No syncope, SOB, palpitations, [...] relief, but was still having CP. 03/30/14 [facility] Left main: Free of angiographically significant disease. [...] mg and starting heparin gtt -Launch to [place] [facility] roofing laborer for lateral wall STEMI Above recommendations/plans are based on my conversation with the referring provider. I have not personally interviewed or examined this patient. Yusuf Herrera MD [facility] documented in this encounter Plan of Treatment Upcoming Encounters Date Type Department Care Team (Late st Contact Info) Description 05/09/2024 10:40 AM EDT Office Visit Cardiology at [address] [place] [address] Herlinda Weaver PA [facility] [place] [address] documented as of this encounter Visit Diagnoses Not on filedocumented in this encounter Care Teams Ship Rigger Relationship Specialty Start Date End Date None None PCP - General 03/19/24 documented as of this encounter
--- OUTSIDE RECORDS SUMMARY | 2024-04-06 11:17 | XMS_ITS | Encounter Summary ---
Author Organization [facility] Address [facility] [place] [address] Care Team Providers Care Wine Master Name Role Phone Pretty Avery MD Primary Care Provider [phone] Reason for Visit * Reason Comments Basal Cell Carcinoma * Consultation (Routine) - Closed Specialty Diagnoses / Procedures Referred By Contac t Referred To Contact Dermatology Diagnoses skin lesion lower back, basel cell ca Isa Estrada MD [address] [place] [address] [facility] Dermatology [address] [place] [address] Referral ID Status Reason Start Date Expiration Date V isits Requested Visits Authorized [id number] Closed [facility] 12/17/2015 12/16/2016 1 1 Encounter Details Date Type Department Care Team (Late st Contact Info) Description 12/19/2015 2:30 PM EDT Office Visit Dermatology at [facility] [address] [place] [address] Lisa Candelario MD [facility] [place] [address] Superficial basal cell carcinoma; Seborrheic [...] or concerns, please call the office at [phone]. If it is after 5PM, or a holiday or weekend, please call [phone] and ask for the Fur Blowing Machine Operator on-call. documented in this encounter Progress Notes [...] encounter. Lisa Candelario MD Section of Dermatology [facility] documented in this encounter Plan of Treatment Upcoming Encounters Date Type Department Care Team (Late st Contact Info) Description 05/09/2024 10:40 AM EDT Office Visit Cardiology at [address] [place] [address] Herlinda Weaver [place] [facility] [place] [address] documented as of this encounter Visit Diagnoses Diagnosis Superficial basal cell carcinoma Basal cell carcinoma of skin, site unspecified Seborrheic keratosis Other seborrheic keratosis documented in this encounter Care Teams Wine Master Relationship Specialty Start Date End Date Pretty Avery MD [address] [place] [address] PCP - General 08/06/10 03/18/24 documented as of this encounter
--- OUTSIDE RECORDS SUMMARY | 2024-04-06 11:17 | XMS_ITS | Encounter Summary ---
Author Organization [facility] Address [facility] [place] [address] Care Team Providers Care Services Clerk Name Role Phone Pretty Avery MD Primary Care Provider [phone] Encounter Details Date Type Department Care Team (Latest Contact Info) Description 03/18/2024 11:37 PM EDT - 03/18/2024 11:59 PM EDT Hospital Encounter [place] [phone] Destin Ambrosio MD [facility] [place] [address] Discharge Disposition: Home Social History Tobacco Use [...] 10:40 AM EDT Office Visit Cardiology at [address] [place] [address] Herlinda Weaver PA [facility] [place] [address] documented as of this encounter Visit Diagnoses Not on filedocumented in this encounter Care Teams Services Clerk Relationship Specialty Start Date End Date Pretty Avery MD [address] [place] [address] PCP - General 08/06/10 03/18/24 documented as of this encounter
--- OUTSIDE RECORDS SUMMARY | 2024-04-06 11:17 | XMS_ITS | Encounter Summary ---
Author Organization [facility]ly [facility] [place] [address] Care Team Providers Care High Density Talc Coater Operator Name Role Phone Pretty Avery MD Primary Care Provider [phone] Reason for Visit * Reason Comments Skin Check Encounter Details Date Type Department Care Team (Late st Contact Info) Description 02/04/2017 1:15 PM EDT Office Visit Dermatology at [facility] [address] [place] [address] Lisa Candelario MD [facility] [address] LUIS [place] [address] Seborrheic keratosis; Multiple benign nevi; History of [...] encounter. Lisa Candelario MD Section of Dermatology [facility] documented in this encounter Plan of Treatment Upcoming Encounters Date Type Department Care Team (Late st Contact Info) Description 05/09/2024 10:40 AM EDT Office Visit Cardiology at [address] [place] [address] Herlinda Weaver PA [facility] [place] [address] documented as of this encounter Visit Diagnoses Diagnosis Seborrheic keratosis Other seborrheic keratosis Multiple benign nevi Benign neoplasm of skin, site unspecified History of basal cell cancer Personal history of other malignant neoplasm of skin documented in this encounter Care Teams High Density Talc Coater Operator Relationship Specialty Start Date End Date Pretty Avery MD [address] [place] [address] PCP - General 08/06/10 03/18/24 documented as of this encounter
--- OUTSIDE RECORDS SUMMARY | 2024-04-08 10:54 | XMS_ITS | Encounter Summary ---
Author Organization [facility] Address [address] [place] [address] Care Team Providers Care Thermostat Mechanic Name Role Phone Pretty Avery MD Primary Care Provider [phone] Encounter Details Date Type Department Care Team (Latest Contact Info) Description 12/05/2015 12:19 EDT - 12/05/2015 23:59 EDT Hospital Encounter [address] [address] Unknown, Provider, Discharge Disposition: Home or Self [...] Code Departure Means Destination Home or Self Detention documented in this encounter Plan of Treatment Not on file documented as of this encounter Visit Diagnoses Not on filedocumented in this encounter Care Teams Thermostat Mechanic Relationship Specialty Start Date End Date Pretty Avery MD [address] [place] [address] PCP - General 06/05/10 documented as of this encounter
--- OUTSIDE RECORDS SUMMARY | 2024-04-08 10:54 | XMS_ITS | Encounter Summary ---
Author Organization [facility] Address [address] [place] [address] Care Team Providers Care Scruff Worker Name Role Phone Pretty Avery MD Primary Care Provider [phone] Reason for Visit * Reason Onset Date Comments Post-op Problem 12/17/2014 Encounter Details Date Type Department Care Team (Late st Contact Info) Description 12/17/2014 Telephone [facility] Cardiology - [address] [place], [place] [id number] Alex Freed, [address] [address] Post-op Problem Social History Tobacco [...] Encounter - Alex Freed DO - 12/17/2014 3256 EDT Isa called on 12/16/14 with complaints [...] at 18:00. Alex Freed DO 12/17/2014 11:53 Wide Load Escort documented in this encounter Plan of Treatment Not on file documented as of this encounter Visit Diagnoses Not on filedocumented in this encounter Care Teams Scruff Worker Relationship Specialty Start Date End Date Pretty Avery MD [address] [place] [phone] PCP - General 06/05/10 documented as of this encounter
--- OUTSIDE RECORDS SUMMARY | 2024-04-08 10:54 | XMS_ITS | Clinical Summary ---
Author Organization [facility] Address [address] [place] [address] Care Team Providers Care Training Project Manager Name Role Phone Pretty Avery MD Primary Care Provider [phone] Allergies No known active allergies Medications Medication [...] Date NSTEMI (non-ST elevated myocardial infarction) ( [facility]) 03/30/2014 Surgical History Surgery Date Site/Laterality Comments [...] Advance Directives For more information, please contact: [phone] * Full Code (Latest Code Status on File) Date Activated Date Inactivated Comments 12/15/2014 9:53 12/15/2014 18:00 Question Answer Comments Reason for decision includes: Full code consistent with overall plan of care Who participated in the discussion? Patient * Full Code Date Activated Date Inactivated Comments 03/30/2014 20:42 04/01/2014 17:36 Care Teams Training Project Manager Relationship Specialty Start Date End Date Pretty Avery MD [address] [place] [address] [facility] - General 06/05/10
--- OUTSIDE RECORDS SUMMARY | 2024-04-08 10:54 | XMS_ITS | Encounter Summary ---
Author Organization [facility] Address [address] [place] [address] Care Team Providers Care Firer Locomotive Crane Name Role Phone Pretty Avery MD Primary Care Provider [phone] Encounter Details Date Type Department Care Team (Late st Contact Info) Description 12/05/2015 Results Only [facility] [phone] Ezequiel Estrada MD [address] [place] [phone] Social History Tobacco Use Types Packs/Day Years [...] ? EZEQUIEL THOMAS ? Accession #: ? [id number] ? : ? 1965 (Age: 50) ??F [...] the atypical cells from the stroma. ??(Dr. Mcgovern)/[facility] Document reviewed and electronically signed [...] May 12/06/2015 1:10 PM End of Report [facility] 12/05/2015 10:3 3 EDT 12/06/2015 10:33 EDT Ezequiel Estrada MD PATHOLOGY ORDERABLES [facility] [address] [place] [address] documented in this encounter Visit Diagnoses Not on filedocumented in this encounter Care Teams Firer Locomotive Crane Relationship Specialty Start Date End Date Pretty Avery MD [address] [place] [address] PCP - General 06/05/10 documented as of this encounter
--- OUTSIDE RECORDS SUMMARY | 2024-04-08 10:54 | XMS_ITS | Encounter Summary ---
Author Organization [facility] Address [address] [place] [address] Care Team Providers Care Service Establishment Attendant Name Role Phone Pretty Avery MD Primary Care Provider [phone] Encounter Details Date Type Department Care Team (Late st Contact Info) Description 08/23/2020 Lab Requisition [facility] Pathology & [place] [address] Outr Resulting Lab, Provider Social History Tobacco [...] rt-PCR Result NEGATIVE Negative 08/25/2020 8:37 EST [facility] Comment: 2019-novel Coronavirus (2019-nCoV) not detected [...] in accordance with CLIA regulations, [employer] (CAP) guidelines (Dec 01, 2019), and FDA guidance (Nov 12, 2019). This test is only for use under the Food and Drug Administration's Emergency Use Authorization. Swab ENTIRE NASOPHARYNX / Unknown 08/22/2020 13:10 EST 08/23/2020 15:58 EST Provider Outr Resulting Lab MICROBIOLOGY - GENERAL ORDERABLES [facility] [place], [place] * COVID-19 TESTING (08/22/2020 13:10 EST) COVID-19 rt-PCR Result NEGATIVE Negative 08/25/2020 10:01 EST [facility] Comment: 2019-novel Coronavirus (2019-nCoV) not detected [...] in accordance with CLIA regulations, [employer] [place] (CAP) guidelines (Dec 01, 2019), and FDA guidance (Nov 12, 2019). This test is only for use under the Food and Drug Administration's Emergency Use Authorization. Performing Lab [facility] 08/25/2020 10:01 EST [facility] Swab 08/22/2020 13:1 0 EST 08/23/2020 15:58 EST Provider Outr Resulting Lab MICROBIOLOGY - GENERAL ORDERABLES [facility] [address] [place] [address] [facility] [place], [place] documented in this encounter Visit Diagnoses Not on filedocumented in this encounter Care Teams Service Establishment Attendant Relationship Specialty Start Date End Date Pretty Avery MD [address] [place] [address] PCP - General 06/05/10 documented as of this encounter
--- OUTSIDE RECORDS SUMMARY | 2024-04-08 10:54 | XMS_ITS | Referral Summary ---
Author Organization [facility] Address [address] [place] [address] Care Team Providers Care Drain Cleaner Plumber Name Role Phone Pretty Avery MD Primary Care Provider [phone] Allergies No known active allergies Medications Medication [...] NSTEMI (non-ST elevated myocardial infarction) ( [facility]) 03/30/2014 Social History Tobacco Use Types Packs/Day [...] Advance Directives For more information, please contact: [phone] * Full Code (Latest Code Status on File) Date Activated Date Inactivated Comments 12/15/2014 9:53 12/15/2014 18:00 Question Answer Comments Reason for decision includes: Full code consistent with overall plan of care Who participated in the discussion? Patient * Full Code Date Activated Date Inactivated Comments 03/30/2014 20:42 04/01/2014 17:36 Care Teams Drain Cleaner Plumber Relationship Specialty Start Date End Date Pretty Avery MD [address] [place] [address] PCP - General 06/05/10
--- OUTSIDE RECORDS SUMMARY | 2024-04-08 10:54 | XMS_ITS | Encounter Summary ---
Author Organization [facility] Address [address] [place] [address] Care Team Providers Care Center Manager Name Role Phone Pretty Avery MD Primary Care Provider [phone] Encounter Details Date Type Department Care Team (Late st Contact Info) Description 06/18/2018 Results Only [facility] [phone] Marietta Mauricio, DO [address] [place] [address] Social History Tobacco Use Types [...] ? EZEQUIEL THOMAS ? Accession #: ? [id number] ? : ? 1965 (Age: 53) ??F [...] Meyers 06/19/2018 9:42 AM End of Report [facility] 06/18/2018 16:1 9 EDT 06/18/2018 16:19 EDT Marietta Mauricio DO PATHOLOGY ORDERABLES [facility] [address] [place] [address] documented in this encounter Visit Diagnoses Not on filedocumented in this encounter Care Teams Center Manager Relationship Specialty Start Date End Date Pretty Avery MD [address] [place] [address] PCP - General 06/05/10 documented as of this encounter
--- OUTSIDE RECORDS SUMMARY | 2024-04-08 10:54 | XMS_ITS | Encounter Summary ---
Author Organization [facility] Address [address] [place] [address] Care Team Providers Care Press Officer Name Role Phone Pretty Avery MD Primary Care Provider [phone] Encounter Details Date Type Department Care Team (Late st Contact Info) Description 04/08/2018 Historical Results Only [facility] Radiology Results [address] [place] [address] Wesley Trinh MD [address] [place] [address] Social History Tobacco Use Types [...] * TROPONIN I (04/08/2018 20:12 EDT) Pathologist [facility] Troponin I (ng/mL) <0.012 0.000 - 0.034 ng/mL 04/08/2018 20:47 EDT [facility] Comment: Interpretation comments: ??Cutoff for [...] Philip MD CHEMISTRY & BLOOD GAS ORDERABLES [facility] * XR CHEST 2 VIEWS [...] MD ? Transcribed Date/Time: 04/08/2018 (1402) ? Ophthalmic Dispenser: ? Printed Date/Time: 03/04/2019 (2336) ? PAGE 1 ? Signed Report ? [...] Wesley Trinh MD Transcribed Date/Time: 04/08/2018 (1402) Ophthalmic Dispenser: Printed Date/Time: 03/04/2019 (6189) PAGE 1 Signed Report Wesley Trinh MD IMG DIAGNOSTIC I MAGING ORDERABLES * MAGNESIUM (04/08/2018 12:24 EDT) Magnesium 1.70 1.7 - 2.8 mg/dL 04/08/2018 12:48 EDT [facility] 04/08/2018 12:2 4 EDT 04/08/2018 12:30 EDT Wesley Trinh MD CHEMISTRY & BLOO D GAS ORDERABLES [facility] * (ABNORMAL) COMPREHENSIVE METABOLIC PANEL (CMP) (04/08/2018 12:24 EDT) Pathologist [facility] Albumin % 4.4 3.4 - 4.9 g/dL 04/08/2018 12:48 [facility] ALKALINE PHOSPHATASE - [facility] 75 38 - 126 U/L 04/08/2018 12:48 [facility] BILIRUBIN TOTAL 0.4 0.2 - 1.3 mg/dL 04/08/2018 12:48 [facility] BUN - [facility] 21 10 - 26 mg/dL 04/08/2018 12:48 [facility] CALCIUM - [facility] 9.3 8.5 - 10.5 mg/dL 04/08/2018 12:48 [facility] Chloride 104 96 - 110 mmol/L 04/08/2018 12:48 [facility] CO2 Total 23 22 - 32 mEq/L 04/08/2018 12:48 [facility] CREATININE 0.85 0.52 - 1.04 mg/dL 04/08/2018 12:48 [facility] eGFR >60 04/08/2018 12:48 [facility] Comment: Chronic renal impairment is defined as GFR <60 Multiply result by 1.210 for patients. eGFR calculated using the IDMS-traceable MDRD Study Equation. ??(effective 07/17/2014) Anion Gap 11 0 - 18 04/08/2018 12:48 EDT [facility] GLUCOSE - [facility] 103(H) 70 - 100 mg/dL 04/08/2018 12:48 EDT [facility] Potassium 3.8 3.5 - 5.0 mEq/L 04/08/2018 12:48 EDT [facility] Sodium 138 136 - 145 mEq/L 04/08/2018 12:48 EDT [facility] TOTAL PROTEIN - [facility] 7.1 6.2 - 8.2 gm/dL 04/08/2018 12:48 EDT [facility] SGOT/AST - [facility] 20 14 - 36 U/L 04/08/2018 12:48 T [facility] SGPT/ALT - [facility] 36 9 - 52 U/L 8 12:48 EDT [facility] 04/08/2018 12:2 4 EDT 04/08/2018 12:30 EDT Wesley Trinh MD CHEMISTRY & BLOO D GAS ORDERABLES Performing Organization Address [facility]/ZIP Co de Phone Number [facility] * TROPONIN I (04/08/2018 12:24 EDT) Troponin I (ng/mL) <0.012 0.000 - 0.034 ng/mL 04/08/2018 13:00 EDT [facility] Comment: Interpretation comments: ??Cutoff for [...] MD CHEMISTRY & BLOO D GAS ORDERABLES [facility] * COMPLETE BLOOD COUNT WITH DIFFERENTIAL (AUTO) (04/08/2018 12:24 EDT) ABSOLUTE NEUTROPHIL COUN - [facility] 5.55 1.7 - 7.0 10e3/ul 04/08/2018 12:36 [facility] BASO # - [facility] 0.02 0.0 - 0.3 10e3/uL 04/08/2018 12:36 [facility] BASO % - [facility] 0 0 - 2 % 04/08/2018 12:36 [facility] EOS # - [facility] 0.18 0.05 - 0.5 10e3/uL 04/08/2018 12:36 [facility] EOS % - [facility] 2 0 - 5 % 04/08/2018 12:36 [facility] GRAN % - [facility] 65 40 - 80 % 04/08/2018 12:36 [facility] HEMATOCRIT - [facility] 39.7 34.0 - 47.0 % 04/08/2018 12:36 [facility] HEMOGLOBIN - [facility] 13.5 11.2 - 15.7 g/dl 04/08/2018 12:36 [facility] IG# - [facility] 0.02 0 - 0.07 10e3/uL 04/08/2018 12:36 [facility] IG% - [facility] 0.2 0 - 0.9 % 04/08/2018 12:36 [facility] LYMPH # - [facility] 2.22 0.9 - 2.9 10e3/uL 04/08/2018 12:36 [facility] LYMPH% - [facility] 26 20 - 40 % 04/08/2018 12:36 [facility] MEAN CORPUSCULAR HGB - [facility] 28.2 26 - 34 pg 04/08/2018 12:36 [facility] MEAN CORPUSCULAR HGB CONC - [facility] 34.0 31 - 36 g/dL 04/08/2018 12:36 [facility] MEAN CELL VOLUME - [facility] 82.9 77 - 100 fl 04/08/2018 12:36 [facility] MONO # - [facility] 0.60 0.3 - 0.9 10e3/uL 04/08/2018 12:36 EDT [facility] MONO% - [facility] 7 0 - 12 % 04/08/2018 12:36 EDT [facility] PLATELET COUNT 252 150 - 400 10e3/ul 04/08/2018 12:36 EDT [facility] RED BLOOD COUNT - [facility] 4.79 3.8 - 5.2 10e6/ul 04/08/2018 12:36 EDT [facility] RED CELL DISTRI WIDTH - [facility] 14.1 11.8 - 15.6 % 04/08/2018 12:36 EDT [facility] WHITE BLOOD COUNT - [facility] 8.6 3.5 - 10.5 10e3/ul 04/08/2018 12:36 EDT [facility] 04/08/2018 12:2 4 EDT 04/08/2018 12:30 EDT Wesley Trinh MD HEMATOLOGY & PF4 ORDERABLES [facility] documented in this encounter Visit Diagnoses Not on filedocumented in this encounter Care Teams Press Officer Relationship Specialty Start Date End Date Pretty Avery MD [address] [place] [address] PCP - General 06/05/10 documented as of this encounter
--- OUTSIDE RECORDS SUMMARY | 2024-04-08 10:54 | XMS_ITS | Encounter Summary ---
Author Organization [facility] Address [address] [place] [address] Care Team Providers Care Engineered Wood Designer Name Role Phone Pretty Avery MD Primary Care Provider [phone] Encounter Details Date Type Department Care Team (Latest Contact Info) Description 04/08/2018 9:44 EDT - 04/08/2018 23:59 EDT Hospital Encounter [facility] [address] [place] [address] Unknown, Provider, Discharge Disposition: Home or Self [...] Code Departure Means Destination Home or Self Long-Term documented in this encounter Plan of Treatment Not on file documented as of this encounter Visit Diagnoses Not on filedocumented in this encounter Care Teams Engineered Wood Designer Relationship Specialty Start Date End Date Pretty Avery MD [address] [place] [address] PCP - General 06/05/10 documented as of this encounter
--- OUTSIDE RECORDS SUMMARY | 2024-04-08 10:54 | XMS_ITS | Encounter Summary ---
Author Organization [facility] Address [address] [place] [address] Care Team Providers Care Soldering Machine Tender Name Role Phone Pretty Avery MD Primary Care Provider [phone] Encounter Details Date Type Department Care Team (Late st Contact Info) Description 06/24/2023 Lab Requisition [facility] Pathology & [place] [address] Outr Resulting Lab, Provider Social History Tobacco [...] Lyme Ab Negative Negative 06/25/2023 11:00 EDT [facility] Blood VENOUS BLOOD / Unknown 06/24/2023 9:02 EDT 06/24/2023 17:06 EDT Provider Outr Resulting Lab IMMUNOLOGY A ND SEROLOGY ORDERABLES [facility] [address] [place] [address] documented in this encounter Visit Diagnoses Not on filedocumented in this encounter Care Teams Soldering Machine Tender Relationship Specialty Start Date End Date Pretty Avery MD [address] [place] [address] PCP - General 06/05/10 documented as of this encounter
--- OUTSIDE RECORDS SUMMARY | 2024-04-08 10:54 | XMS_ITS | Encounter Summary ---
Author Organization [facility] Address [address] [place] [address] Care Team Providers Care Value Advisor Name Role Phone Pretty Avery MD Primary Care Provider [phone] Encounter Details Date Type Department Care Team (Latest Contact Info) Description 09/11/2021 Lab Requisition [facility] Pathology & Laboratory Medicine - [address] [address] Rosalba Archibald, [facility] [employer] [address] [address] Encounter for general adult medical examination without [...] types, PCR Negative Negative 09/20/2021 15:45 EST [facility] Comment:No E6 or E7 mRNA is detected from HPV types 16,18,31,33,35,39,45,51,52,56,58,59,66, and 68 by inbound telemarketer mediated amplification. Papanicolaou smear specimen (specimen) CERVIX UTERI STRUCTURE / Unknown 09/10/2021 9:15 EST 09/19/2021 14:21 EST Rosalba Archibald APRN MICROBIOLOGY - GE NERAL ORDERABLES [facility] [address] [place] [address] * PAP TEST (09/10/2021 9:15 EST) Specimens A. Cervix and/or Endocervix , ThinPrep Imaging System with Manual Evaluation 09/20/2021 15:45 EST [facility] Specimen Adequacy Satisfactory for Evaluation - transformation zone component present 09/20/2021 15:45 EST [facility] General Categorization Epithelial Cell Abnormality 09/20/2021 15:45 EST [facility] Descriptive Diagnosis Squamous Cell Abnormality - Atypical squamous cells, undetermined significance (ASC-US). 09/20/2021 15:45 EST [facility] Educational Comments [facility] recommends following ASCCP's 2012 Updated Consensus Guidelines for the Management of Abnormal Cervical Cancer Screening Tests and Cancer Precursors (JLGTD, 2013; 17(5):S1-S27). Consensus guidelines are available online at www.asccp.org. 09/20/2021 15:45 [facility] Attestation By the signature below, the attending physician certifies that they have personally conducted a gross and/or microscopic examination of the described specimens and rendered or confirmed the above diagnosis. 09/20/2021 15:45 [facility] at 1545 Clinical History See below 09/20/19 15:45 [facility] HPV The result for the Human Papillomavirus (HPV) Detection-High Risk Types is Negative. No E6 or E7 mRNA is detected from HPV types 16,18,31,33,35,3 9,45,51,52,56,58 ,59,66, and 68 by inbound telemarketer mediated amplification.Te sting was performed on specimen [id number] and was resulted on 09/20/2021 1543 EST by CARMEN, LAB INSTRUMENT RESULTS IN 09/20/2021 15:45 [facility] Performing Lab [facility] 09/20/2021 15:45 [facility] Scanned Images 09/20/2021 15:45 [facility] Papanicolaou smear specimen (specimen) CERVIX UTERI STRUCTURE / Unknown 09/10/2021 9:15 EST 09/11/2021 9:41 EST Rosalba Archibald APRN PATHOLOGY ORDERAB LES [facility] [address] [place] [address] documented in this encounter Visit Diagnoses Diagnosis Encounter for general adult medical examination without abnormal findings Unspecified general medical examination Encounter for screening for malignant neoplasm of cervix Screening for malignant neoplasm of the cervix Encounter for gynecological examination (general) (routine) without abnormal findings documented in this encounter Care Teams Value Advisor Relationship Specialty Start Date End Date Pretty Avery MD [address] [place] [address] PCP - General 06/05/10 documented as of this encounter
--- OUTSIDE RECORDS SUMMARY | 2024-04-08 10:54 | XMS_ITS | Encounter Summary ---
Author Organization [facility] Address [address] [place] [address] Care Team Providers Care Senior Care Provider Name Role Phone Pretty Avery MD Primary Care Provider [phone] Encounter Details Date Type Department Care Team (Late st Contact Info) Description 03/07/2022 Lab Requisition [facility] Pathology & Laboratory Medicine - [address] [address] Outr Resulting Lab, Provider Social History Tobacco [...] Priority Date/Time Associated Diagnosis Comments ZZCOVID-19 TEST [facility] PCR Today 03/06/2022 16:00 EDT COVID-19 TESTING Routine 03/06/2022 16:0 0 EDT documented in this encounter Results * COVID-19 TEST [facility] PCR (03/06/2022 16:00 EDT) Swab 03/06/2022 16:0 0 EDT 03/07/2022 22:03 EDT Provider Outr Resulting Lab MICROBIOLOGY - GENERAL ORDERABLES Performing Organization Address City/[facility]/ZIP Co de Phone Number [facility] [address] [place] [address] * COVID-19 TESTING (03/06/2022 16:00 EDT) COVID-19 rt-PCR Result Negative Negative 03/08/2022 12:05 EDT [facility] Comment: This test has not [...] performed using the camille SARS-CoV-2 assay ([employer] on the Camille 6800 System Performing Lab [place] [address] [facility] 03/08/2022 12:05 EDT [facility] Swab 03/06/2022 16:0 0 EDT 03/07/2022 22:03 EDT Provider Outr Resulting Lab MICROBIOLOGY - GENERAL ORDERABLES Performing Organization Address City/[facility]/ZIP Co de Phone Number [facility] [address] [place] [address] documented in this encounter Visit Diagnoses Not on filedocumented in this encounter Care Teams Senior Care Provider Relationship Specialty Start Date End Date Pretty Avery MD [address] [place] [phone] PCP - General 06/05/10 documented as of this encounter
--- OUTSIDE RECORDS SUMMARY | 2024-04-08 10:54 | XMS_ITS | Encounter Summary ---
Author Organization [facility] Address [address] [place] [address] Care Team Providers Care Plasma Center Technician Name Role Phone Pretty Avery MD Primary Care Provider [phone] Encounter Details Date Type Department Care Team (Late st Contact Info) Description 02/15/2020 Lab Requisition [facility] Pathology & Laboratory Medicine - [address] [address] Outr Resulting Lab, Provider Social History Tobacco [...] - BROAD COVID TEST (02/15/2020 13:38 EDT) [facility] COVID-19 rt-PCR Result NEGATIVE Negative 02/17/2020 10:45 EDT [facility] Comment: 2019-novel Coronavirus (2019-nCoV) not detected [...] in accordance with CLIA regulations, College of [employer] (CAP) guidelines (Dec 01, 2019), and FDA guidance (Nov 12, 2019). This test is only for use under the Food and Drug Administration's Emergency Use Authorization. Swab ENTIRE NASOPHARYNX / Unknown 02/15/2020 13:38 EDT 02/15/2020 21:00 EDT Provider Outr Resulting Lab MICROBIOLOGY - GENERAL ORDERABLES [facility] [place], [place] * COVID-19 TESTING (02/15/2020 13:38 EDT) COVID-19 rt-PCR Result NEGATIVE Negative 02/17/2020 12:54 EDT [facility] Comment: 2019-novel Coronavirus (2019-nCoV) not detected [...] in accordance with CLIA regulations, College of [employer] Pathologists (CAP) guidelines (Dec 01, 2019), and FDA guidance (Nov 12, 2019). This test is only for use under the Food and Drug Administration's Emergency Use Authorization. Performing Lab [facility] 02/17/2020 12:54 EDT [facility] Swab ENTIRE NASOPHARYNX / Unknown 02/15/2020 13:38 EDT 02/15/2020 21:00 EDT Provider Outr Resulting Lab MICROBIOLOGY - GENERAL ORDERABLES [facility] [address] [place] [address] [facility] [place], [place] documented in this encounter Visit Diagnoses Not on filedocumented in this encounter Care Teams Plasma Center Technician Relationship Specialty Start Date End Date Pretty Avery MD [address] [place] [address] PCP - General 06/05/10 documented as of this encounter
--- OUTSIDE RECORDS SUMMARY | 2024-04-08 10:54 | XMS_ITS | Encounter Summary ---
Author Organization [facility] Address [address] [place] [address] Care Team Providers Care Tank Terminal Gauger Name Role Phone Pretty Avery MD Primary Care Provider [phone] Encounter Details Date Type Department Care Team (Late st Contact Info) Description 04/09/2018 Historical Results Only [facility] Lab - Main [address] [address] Ganesh Philip MD [address] [place] [phone] Social History Tobacco Use Types Packs/Day [...] & BLOOD GAS ORDERABLES Performing Organization Address City/[facility]/ZIP Co de Phone Number [facility] [...] on filedocumented in this encounter Care Teams Tank Terminal Gauger Relationship Specialty Start Date End Date Pretty Avery MD [address] [place] [address] PCP - General 06/05/10 documented as of this encounter
--- OUTSIDE RECORDS SUMMARY | 2024-04-08 10:54 | XMS_ITS | Encounter Summary ---
Author Organization [facility] Address [address] [place] [address] Care Team Providers Care Mining Captain Name Role Phone Pretty Avery MD Primary Care Provider [phone] Encounter Details Date Type Department Care Team (Latest Contact Info) Description 06/18/2018 9:36 EDT - 06/18/2018 23:59 EDT Hospital Encounter [facility] - [address] [address] Unknown, Provider, Discharge Disposition: Home or Self [...] on filedocumented in this encounter Care Teams Mining Captain Relationship Specialty Start Date End Date Pretty Avery MD [address] [place] [address] PCP - General 06/05/10 documented as of this encounter
--- OUTSIDE RECORDS SUMMARY | 2024-04-08 10:54 | XMS_ITS | Encounter Summary ---
Author Organization [facility] Address [address] [place] [address] Care Team Providers Care Data Analytics Analyst Name Role Phone Pretty Avery MD Primary Care Provider [phone] Encounter Details Date Type Department Care Team (Late st Contact Info) Description 07/26/2021 Lab Requisition [facility] Pathology & [place] [address] Outr Resulting Lab, Provider Social History Tobacco [...] Lyme Ab Negative Negative 07/29/2021 9:57 EST [facility] Blood VENOUS BLOOD / Unknown 07/26/2021 10:55 EST 07/26/2021 21:29 EST Provider Outr Resulting Lab IMMUNOLOGY A [place] SEROLOGY ORDERABLES Performing Organization Address City/State/[facility] Co de Phone Number [facility] [address] [place] [address] documented in this encounter Visit Diagnoses Not on filedocumented in this encounter Care Teams Data Analytics Analyst Relationship Specialty Start Date End Date Pretty Avery MD [address] [place] [address] PCP - General 06/05/10 documented as of this encounter
--- OUTSIDE RECORDS SUMMARY | 2024-04-08 10:55 | XMS_ITS | Encounter Summary ---
Author Organization [facility] Address [address] [place] [address] Care Team Providers Care Accounts Clerk Name Role Phone Pretty Avery MD Primary Care Provider Encounter Details Date Type Department Care Team (Latest Contact Info) Description 03/30/2014 10:20 EDT - 03/30/2014 20:09 EDT Hospital Encounter [facility] [address] [place] [address] Unknown, Provider, Discharge Disposition: Home or Self [...] on filedocumented in this encounter Care Teams Accounts Clerk Relationship Specialty Start Date End Date Pretty Avery MD [address] [place] [address] PCP - General 06/05/10 documented as of this encounter
--- OUTSIDE RECORDS SUMMARY | 2024-04-08 10:55 | XMS_ITS | Encounter Summary ---
Author Organization [facility] Address [address] [place] [address] Care Team Providers Care Medical Reviewer Name Role Phone Pretty Avery MD Primary Care Provider [phone] Encounter Details Date Type Department Care Team (Late st Contact Info) Description 12/02/2005 Results Only [facility] [address] [place] [address] Jake Sabillon FNP [address] [place], [place] [address] Social History Tobacco Use Types Packs/Day Years [...] ? ANNEEZEQUIEL GREEN ? Accession #: ? [id number] : ? 1965 (Age: 40) ??F ?Collect Date: ? 12/02/2005 Location: ? [facility] ? Receive Date: ? 12/04/2005 Provider: ?JAKE SABILLON ALUMINUM SHEET CUTTER Copy to: ? Specimen/Source: ?ThinPrep Pap Test, Cervix/Endocervix, processed on [employer] ThinPrep Imaging System, with manual evaluation Last [...] GARCÍAP PATHOLOGY ORDERABLES [facility] [address] [place] [address] documented in this encounter Visit Diagnoses Not on filedocumented in this encounter Care Teams Medical Reviewer Relationship Specialty Start Date End Date Pretty Avery MD [address] [place] [address] PCP - General 06/05/10 documented as of this encounter
--- OUTSIDE RECORDS SUMMARY | 2024-04-08 10:55 | XMS_ITS | Encounter Summary ---
Author Organization [facility] Address [address] [place] [address] Care Team Providers Care Complaint Analyst Name Role Phone Pretty Avery MD Primary Care Provider [phone] Encounter Details Date Type Department Care Team (Late st Contact Info) Description 12/15/2014 9:30 EDT - 12/15/2014 15:15 EDT Hospital Encounter [facility] Cardiovascular Unit [address] [place] [address] Manpreet Naqvi MD [address] [place] [phone] Dilip Mahajan MD [address] [facility] [address] [place] [phone] Discharge Disposition: Home or Self Care Social [...] was performed by Dr. Mahajan. Phone # [phone] You have had a Cardiovascular Catheterization performed [...] 12/13/14. Will contact pt today to reschedule. medical laboratory technical officer notified. 12/13/14 10:00, pt rescheduled to Thursday12/15/14. [...] JAHAIRA. * Michaelle Ellsworth, RN - 12/12/2014 6070 EDT Precardiac Cath Nursing Checklist Recent Labs: Lab Results Component Value Date BUN 10 04/01/2014 CREATININE 0.69 04/01/2014 HGB 12.6 04/01/2014 CALCGFR >60 04/01/2014 Hgt: Height: 157.5 cm (62) Wgt: Weight : 54.205 kg (119 lb 8 oz) Allergies: No Known Allergies Local Pharmacy [phone] [phone] Cardiac History: Stress Test? No Reason for [...] section. Chronic Risk Factors: HTN, HLD, Previous OR and Previous PCI Smoking and Alcohol intake: [...] instructed to register on the 3rd floor [facility]. Transportation Issues: Patient/family instructed that they will need a designated construction driver if they are discharged on the dayof the procedure. Medications: Medication list: Patient/family instructed to bring medication list with them on the day of the procedure. Anticoagulants/Antiplatelets: Takes brilinta bid, instructed to take aspirin 81 mg on 12/14/14-12/15/14. Anti-Anginal meds: none Michaelle Ellsworth RN documented in this encounter H&P Notes * Chun Nielsen MD - 12/15/2014 1044 EDT Cupola Operator Insulation H&P PCP: Pretty Avery MD Order Entry Technician: Date of Service: 12/15/2014 Chief Complaint: angina [...] The angina has been stable. Referred for [facility] to further evaluate. 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 Smoking status: [...] consent has been obtained. Chun Nielsen MD Cupola Operator [employer] Pager [phone] documented in this encounter Procedure Notes * [...] 4 weeks Dilip Mahajan Jr., MD PagerNumber: [phone] 12/15/2014 11:43 documented in this encounter Plan [...] EST) 09/26/2015 11:4 2 EST Scan 2 Wood Heel Back Liner PROCEDURE/MINOR SHAYY GICAL ORDERABLES * INVASIVE CARDIOLOGY REPORT-SCANNED (12/19/2014 8:53 EDT) 12/19/2014 8:53 EDT Scan 2 Wood Heel Back Liner PROCEDURE/MINOR SHAYY GICAL ORDERABLES * ECG REPORT - SCANNED (12/19/2014 8:17 EDT) 12/19/2014 8:17 EDT Scan 2 Wood Heel Back Liner PROCEDURE/MINOR SHAYY GICAL ORDERABLES * LEFT HEART CATH (12/15/2014 11:26 EDT) Anatomical Region Laterality Modality Other 12/15/2014 11:2 6 EDT Narrative 12/18/2014 8:37 EDT [address] [place] [address] Catheterization Laboratory Study Patient: Isa Ro ? Study Date: ?12/15/2014 ? Accession #: ? [id number] : ? 1965 Referring Physician: Pretty Avery [...] Right radial artery access. A 6 FR/10 Vello AppumEgully Sheath Rachel SS .021 sheath was ?? advanced into [...] Dilip Mahajan Jr., MD - 12/18/[address] [place] [address] Catheterization Laboratory Study Patient: Isa Ro Study [...] DATA: Study status: Cardiac cath: elective. [facility] Sex: [facility]. Patient is 49yr old. Weight: [...] artery access. A 6 FR/10 Terumo Sheath Rachel SS .021sheath was advanced into the vessel. [...] 10:12 EDT) 12/15/2014 10:1 2 EDT Narrative [facility] EKG - 12/15/2014 15:09 EDT ? [facility] ? Test Date: ?2014-12-15 Pat Name: ? ISA RO ?Department: ?? CVU ? Room: ? CVU37 Gender: ? F ?Artists' Model: ?? [id number] : ?1965 ? Requested By: SUDARSHAN-EMMANUEL [facility] A Order Number: [id number] ? Reading MD: ?? JOHNNY PATEL MD ? Measurements Intervals ?Chancellor ? Rate: ? 64 ? P: ?70 OR: ? 155 ?QRS: ?48 QRSD: ? 82 [...] Pat Name: ISA RO Department: CVU Room: [facility] Gender: F Artists' Model: [id number] : 1965 Requested By: RUTH Vera Order Number: [id number] Reading MD: JOHNNY VICTOR Measurements Intervals Chancellor Rate: 64 P: 70 OR: 155 QRS: 48 QRSD: 82 T: 72 QT: 434 QTc: 450 Interpretive Statements SINUS RHYTHM NONSPECIFIC ST & T-WAVE ABNORMALITY Compared to ECG 03/31/2014 13:30:36 Sinus rhythm now present T-wave abnormality now present I reviewed the tracing and have either agreed or edited the findings inthis report. Electronically Signed On 12-15-14 15:09:46 EDT by CHARBEL MACK. Abiodun Velez MD CARDIAC ECG ORDER JAMI [facility] EKG * PROTIME (12/15/2014 10:04 EDT) [facility] Pro Time 10.3 9.5 - 12.3 secs 12/15/2014 10:37 [facility] I.N.R. 1.0 0.9 - 1.1 Ratio 12/15/2014 10:37 [facility] Comment: Moderate Intensity Coumadin INR = 2.0-3.0 Adjustments in anticoagulant therapy dose should be based upon the INR and NOT the Pro Time. Blood specimen (specimen) BLOOD SPECIMEN / Unknown 12/15/2014 10:04 EDT 12/15/2014 10:21 EDT Abiodun Velez MD HEMATOLOGY & PF4 ORDERABLES [facility] [address] [place] [address] * HEMAGRAM (12/15/2014 10:04 EDT) WBC 6.17 4.0 - 12.4 K/cmm 12/15/2014 10:28 [facility] RBC 4.76 3.86 - 5.04 M/cmm 12/15/2014 10:28 [facility] Hemoglobin 13.2 11.6 - 15.2 gm/dl 12/15/2014 10:28 [facility] HCT 40.0 34.9 - 44.4 % 12/15/2014 10:28 [facility] MCV 84 81 - 98 fl 12/15/2014 10:28 [facility] MCH 27.8 26.7 - 33.3 pg 12/15/2014 10:28 [facility] MCHC 33.1 32.1 - 35.9 gm/dl 12/15/2014 10:28 [facility] RDW-CV 13.7 11.7 - 14.6 % 12/15/2014 10:28 [facility] RDW-SD 41.6 37.6 - 50.3 fl 12/15/2014 10:28 [facility] PLT 245 141 - 320 K/cmm 12/15/2014 10:28 [facility] MPV 8.0 7.5 - 11.2 fl 12/15/2014 10:28 EDT [facility] Blood specimen (specimen) BLOOD SPECIMEN / Unknown 12/15/2014 10:04 EDT 12/15/2014 10:21 EDT Abiodun Velez MD HEMATOLOGY & PF4 ORDERABLES Performing Organization Address City/[facility]/ZIP Co de Phone Number [facility] [address] [place] [address] * ELECTROLYTES (12/15/2014 10:04 EDT) Sodium 141 136 - 145 mEq/L 12/15/2014 10:45 EDT [facility] Potassium 4.3 3.5 - 5.0 mEq/L 12/15/2014 10:45 EDT [facility] Chloride 103 96 - 110 mEq/L 12/15/2014 10:45 EDT [facility] CO2 28 24 - 32 mEq/L 12/15/2014 10:45 EDT [facility] Blood specimen (specimen) BLOOD SPECIMEN / Unknown 12/15/2014 10:04 EDT 12/15/2014 10:21 EDT Abiodun Velez MD CHEMISTRY & BLOOD GAS ORDERABLES Performing Organization Address [facility] Co de Phone Number [facility] [address] [place] [address] * CREATININE (12/15/2014 10:04 EDT) Creatinine 0.78 0.52 - 1.04 mg/dl 12/15/2014 10:45 EDT [facility] GFR, Calculated >60 >60 ml/min/1.7 3m2 12/15/2014 10:45 EDT [facility] Blood specimen (specimen) BLOOD SPECIMEN / Unknown 12/15/2014 10:04 EDT 12/15/2014 10:21 EDT Abiodun Velez MD CHEMISTRY & BLOOD GAS ORDERABLES [facility] [address] [place] [address] * BUN (12/15/2014 10:04 EDT) BUN 16 10 - 26 mg/dl 12/15/2014 10:45 EDT [facility] Blood specimen (specimen) BLOOD SPECIMEN / Unknown 12/15/2014 10:04 EDT 12/15/2014 10:21 EDT Abiodun Velez MD CHEMISTRY & BLOOD GAS ORDERABLES [facility] [address] [place] [address] documented in this encounter Visit Diagnoses Not [...] 12/15/2014 documented in this encounter Care Teams Complaint Analyst Relationship Specialty Start Date End Date Pretty Avery MD [address] [place] [address] PCP - General 06/05/10 documented as of this encounter
--- OUTSIDE RECORDS SUMMARY | 2024-04-08 10:55 | XMS_ITS | Encounter Summary ---
Author Organization [facility] Address [address] [place] [address] Care Team Providers Care Certified Orthotic Fitter Name Role Phone Unavailable Primary Care Provider Unavailabl e Encounter Details Date Type Department Care Team (Late st Contact Info) Description 12/31/2007 14:07 EDT Hospital Encounter [address] [address] Skip Alcocer MD [address] [place] [address], [facility] [address] [place] [address] Discharge Disposition: Auto Discharge Social History Tobacco [...] 10:19 EST CYTOPATHOLOGY Routine 08/28/2008 0:00 EST [facility] VIABILITY 12/31/2007 16:20 EDT [facility] CHORIONIC BARRETO SAMPLING 12/31/2007 15:40 EDT documented [...] - GE NERAL ORDERABLES Performing Organization Address City/State/[facility] Co de Phone Number [facility] [address] [place] [address] * CYTOPATHOLOGY (08/28/2008 0:00 EST) Pathology Report: CYTOPATHOLOGY REPORT ? Reports generated via electronic interface contain original data; ? however they are lacking the format of the original report. ? Caution should be taken when reading/interpreti ng unformatted reports. ? Name: ? EZEQUIEL THOMAS ? Accession #: ? [id number] ? : ? 1965 (Age: 43) ??F ?Collect Date: ? 08/28/2008 ? Location: ? [facility] ? Receive Date: ? 08/30/2008 ? Provider[facility] ? Copy to: ? Specimen/Source: ?Pap Test, [...] significance (ASC-US). ? EDUCATIONAL NOTES/RECOMMENDATI ONS ? REPLACED BY [facility] recommends following the 2006 Consensus Guidelines for the Management of Women with Abnormal Cervical Cancer Screening Tests (JLGTD, ? 2007;11(4):201-222 ). ??Consensus guidelines are available online at ? www.ASCCP.org. ? Document reviewed and electronically signed by: ? MARIAA Beverly PLOTZ MD ? Report Date: ??09/04/2008 10:20 ? End of Report ? [facility] 08/28/2008 08/30/[address] [facility] PATHOLOGY ORDERAB LES Performing Organization Address City/State/[facility] Co de Phone Number [facility] [address] [place] [address] * [facility] VIABILITY (12/31/2007 16:20 EDT) Anatomical Region Laterality Modality Other 12/31/2007 16:2 0 EDT Narrative 02/25/2009 13:06 EDT first trimester prior to cvs Please refer to the separate [facility] report. ??Contact Maternal Medicine. Procedure Note Magdalena Strickland MD - 02/25/2009 first trimester prior to cvs Please refer to the separate [facility] report. Contact Maternal Medicine. Magdalena Strickland MD [facility] ORDERABLE S * [facility] CHORIONIC BARRETO SAMPLING (12/31/2007 15:40 EDT) Anatomical Region Laterality Modality Other 12/31/2007 15:4 0 EDT Narrative 02/25/2009 10:52 EDT [facility] WITH DR ALCOCER Please refer to the separate [facility] report. ??Contact Maternal Medicine. Procedure Note Skip Alcocer MD - 02/25/2009 [facility] WITH DR ALCOCER Please refer to the separate [facility] report. Contact Maternal Medicine. Skip Reyes MD [facility] ORDERA BLES documented in this encounter Visit Diagnoses Not on filedocumented in this encounter
--- OUTSIDE RECORDS SUMMARY | 2024-04-08 10:55 | XMS_ITS | Encounter Summary ---
Author Organization [facility] Address [address] [place] [address] Care Team Providers Care Music Sound Light Technician Name Role Phone Unavailable Primary Care Provider Unavailabl e Encounter Details Date Type Department Care Team (Late st Contact Info) Description 04/29/2010 Results Only [address] [address] Pretty Avery MD [address] [place] [phone] Social History Tobacco Use Types Packs/Day Years [...] ? EZEQUIEL THOMAS ? Accession #: ? [id number] ? : ? 1965 (Age: 45) ??F [...] Avery MD PATHOLOGY ORDERABLES [facility] [address] [place] [address] documented in this encounter Visit Diagnoses Not on filedocumented in this encounter
--- OUTSIDE RECORDS SUMMARY | 2024-04-08 10:55 | XMS_ITS | Clinical Summary ---
Author Organization [facility] Address [facility] [place] [address] Care Team Providers Care Video Game Programmer Name Role Phone None Primary Care Provider [...] Care Team Description 03/27/2024 Telephone Cardiology at [address] [phone] Fidel Yanes PA 03/19/2024 8:10 AM EDT - 03/19/2024 11:59 PM EDT Hospital Encounter Non-Invasive Cardiology Lab [place] [phone] Discharge Disposition: Home 03/19/2024 1:05 AM EDT - 03/19/2024 2:06 AM EDT Surgery [place] [phone] Ramo Roy MD CARDIAC CATHETERIZATION 03/19/2024 12:37 AM EDT - 03/22/2024 12:10 PM EDT Hospital Encounter Heart and Vascular Unit Level 4 [place] at [place] [phone] Min, MD Santi Vigil Xavier L, MD Ramachandra, Nayana, MD ST elevation myocardial infarction involving left anterior descending (LAD) coronary artery; Chest pain, unspecified type Discharge Disposition: Home 03/18/2024 11:37 PM EDT - 03/18/2024 11:59 PM EDT Hospital [place] [address] Min, Destin Grajeda MD Discharge Disposition: Home 03/18/2024 Telephone Cardiology at [address] [phone] Yusuf Herrera MD 03/18/2024 External Results [place] [address] from Last 3 Months Social History Tobacco Use Types Packs/Day Years Used Date Smoking Tobacco: Former Smokeless Tobacco: Never Alcohol Use Standard Drinks/Week Comments Yes 14 (1 standard drink = 0.6 oz pu re alcohol) [facility] Utilities Answer Date Recorded In the past 12 months has [employer], oil, or water [employer] threatened to shut off services in your [...] any time in the past 12 m [facility], were you homeless or living in [...] 10:40 AM EDT Office Visit Cardiology at [facility] [place] [phone] Herlinda Weaver PA [facility] [place] [address] Health Maintenance Due Date Last Done Comments [...] resultswithin the time period is included. Pathologist [facility] WBC 11.6(H) 4.0 - 9.5 x10(3)/[facility] LABORATORY RBC 4.80 4.00 - 5.21 x10(6)/[facility] LABORATORY Hemoglobin 13.5 11.7 - 15.5 g/dL [facility] Hematocrit 40.3 35.7 - 45.8 % [facility] MCV 84.0 82.6 - 94.4 [facility] LABORATORY MCH 28.1 27.1 - 32.0 pg [facility] MCHC 33.5 31.7 - 35.0 g/dL [facility] Platelets 232 145 - 357 x10(3)/[facility] LABORATORY RDWSD 42.2 37.0 - 46.0 [facility] LABORATORY RDWCV 13.5 11.5 - 14.1 % [facility] MPV 9.7 7.6 - 12.9 [facility] LABORATORY nRBC % Auto 0.0 % [facility] nRBC Abs Auto 0.000 0.000 - 0.000 x10(3)/[facility] LABORATORY Blood 03/22/2024 5:06 AM EDT 03/22/2024 5:12 AM EDT Narrative Resulting Agency Comment Spec In Lab Horace Hancock MD HEMATOLOGY ORDERABLE S [facility] [place] [address] * (ABNORMAL) Differential, Automated (03/22/2024 5:06 AM EDT) Only the most recent of5 resultswithin the time period is included. Pathologist [facility] Neutrophils % 71.6 % [facility] LABOR[facility]ORY Neutr Abs (ANC) 8.34(H) 1.70 - 6.10 x10(3)/[facility] LABORATORY Lymphocytes % 17.4 % [facility] Lymphocytes Abs 2.0 0.9 - 3.2 x10(3)/[facility] LABORATORY Monocytes % 8.2 % [facility] Monocyte Abs 1.0(H) 0.3 - 0.9 x10(3)/[facility] LABORATORY Eosinophils % 2.2 % [facility] Eosinophils Abs 0.3 0.0 - 0.4 x10(3)/[facility] LABORATORY Basophils % 0.3 % [facility] Basophils Abs 0.0 0.0 - 0.1 x10(3)/[facility] LABORATORY Immature Gran % 0.30 % [facility] Comment: Immature granulocytes(IG's)percentage and absolute count will include metamyelocytes, myelocytes, and promyelocytes. Blood smears from CBCs yielding IG's will be scanned manually for concordance. If this scan disagrees with the automated IG or if promyelocytes are noted, a manual differential will be performed. Lesia Gran Abs 0.03 0.00 - 0.04 x10(3)/[facility] LABORATORY Blood 03/22/2024 5:06 AM EDT 03/22/2024 5:12 AM EDT Narrative Resulting Agency Comment Spec In Lab Horace Hancock MD HEMATOLOGY ORDERABLE S [facility] [place] [address] * Magnesium (03/22/2024 5:06 AM EDT) Only the most recent of5 resultswithin the time period is included. Magnesium 0.90 0.69 - 1.07 mmol/L [facility] Blood 03/22/2024 5:06 AM EDT 03/22/2024 5:12 AM EDT Narrative Resulting Agency Comment Spec In Lab Destin Ambrosio MD CHEMISTRY ORDERABLES [facility] [place] [address] * Basic Metabolic Panel (non-fasting) (03/22/2024 5:06 [...] Hancock MD CHEMISTRY ORDERABLES Performing Organization Address [facility] Co de Phone Number [facility] [place] [address] * Metanephrines, Fractionated Free, plasma (03/21/2024 2:57 AM EDT) Normetane Free 0.47 <0.90 nmol/L [facility] Comment: Test Performed by: [facility] [place] [address] [employer]: Chasity Hernandez Ph.D.; CLIA# [id number] Metanephr Free <0.20 <0.50 nmol/L [facility] Comment: ADDITIONAL INFORMATION This test was developed and its performance characteristics determined by [facility] in a manner consistent with CLIA requirements. This test has not been cleared or approved by the U.S. Food and Drug Administration. Test Performed by: [facility] [place] [address] [employer]: Chasity Hernandez Ph.D.; CLIA# [id number] Blood 03/21/2024 2:57 AM EDT 03/21/2024 11:29 AM EDT Narrative Resulting Agency Comment Spec In Lab Horace Hancock MD CHEMISTRY ORDERABLES Performing Organization Address City/[facility]/ZIP Co de Phone Number [facility] [place] [address] * Iron and TIBC (03/20/2024 10:38 AM EDT) Iron 57 30 - 150 mcg/dL [facility] TIBC 278 250 - 450 mcg/dL [facility] Iron Saturation 21 20 - 50 % [facility] Blood Venous Draw / Unknown 03/20/2024 10:38 AM EDT 03/20/2024 10:52 AM EDT Narrative Resulting Agency Comment Spec In Lab Horace Hancock MD CHEMISTRY ORDERABLES [facility] [place] [address] * (ABNORMAL) Troponin (03/19/2024 11:01 PM EDT) Only the most recent of5 resultswithin the time period is included. Troponin-T HS 2,406(H) <=14 ng/L [facility] [...] troponin value can be found in the [facility] Laboratory Test Catalog Troponin - [facility] Laboratory Test Catalog Reference: [place] Definition of Myocardial Infarction. Journal of the [place] [employer] 2018;72:3537-5669 Blood 03/19/2024 11:0 1 PM EDT 03/19/2024 11:05 PM EDT Narrative Resulting Agency Comment Spec In Lab Franky Mead MD CHEMISTRY ORDERABLE S Performing Organization Address City/[facility]/ZIP Co de Phone Number [facility] [place] [address] * EKG 12 Lead (03/19/2024 8:32 PM EDT) Only the most recent of3 resultswithin the time period is included. Ventricular rate 70 BPM MUSE SYSTEM Atrial Rate 70 BPM MUSE SYSTEM P-R Interval 158 ms MUSE SYSTEM QRS Duration 78 ms MUSE SYSTEM Q-T Interval 470 ms MUSE SYSTEM QTC Calculated (Bezet) 507 ms MUSE SYSTEM Calculated P [place] 62 degrees MUSE SYSTEM Calculated R [place] 42 degrees MUSE SYSTEM Calculated T [place] -158 degrees MUSE SYSTEM INTERPRETATION Normal sinus rhythm Poor R wave progression T wave abnormality, consider lateral ischemia Prolonged QT Abnormal ECG When compared with ECG of 19-MAR-2024 17:27, No significant change was found Confirmed by MD Hebert, Destin ([id number]) on 03/23/2024 8:10:58 AM MUSE SYSTEM 03/19/2024 8:32 PM EDT 03/23/2024 8:10 AM EDT Franky Mead MD ECG ORDERABLES Performing Organization Address [facility] Co de Phone Number MUSE SYSTEM * ECHO COMPLETE W CONTRAST (03/19/2024 10:53 AM EDT) Anatomical Region Laterality Modality Cardiac Other 03/19/2024 9:03 AM EDT Narrative 03/19/2024 12:12 PM EDT [address] [place] [address] ? Echocardiogram Report Name: ISA RO ?Study Date: 03/19/2024 09:03 AMBP: 129/68 mmHg ? Patient Location: : 1965 ? Height: 158 cm ? Account: [id number] Age: 59 yrs ? Weight: 57 kg Gender: Female ?BSA: 1.6 m2 Ordering Physician: GANESH NGUYEN Referring Physician: GANESH NGUYEN Performed By: PEREZ Carlos Reason For Study: STEMI involving LAD Exam Location: [facility]. Interpretation Summary Normal left ventricle size with mildly reduced LV function. LV ejection fraction 49%. LAD territory wall motion abnormality, predominantly involving the LV apex. No LV thrombus visualized with echo contrast. Normal right ventricle. No significant valvular abnormalities. Compared with prior echo dated 08/28/23, LV function has now decreased and new wall motion abnormalities. Procedure Complete-[id number]. Image enhancement Definity was used for left [...] Note Destin Ambrosio MD - 03/19/2024 [address] [place] [address] Echocardiogram Report Name: ISA RO Study Date: 409:03 AMBP: 129/68 mmHg Patient Location: : 1965 Height: 158 cm Account: [id number] Age: 59 yrs Weight: 57 kg Gender: Female BSA: 1.6 m2 Ordering Physician: GANESH NGUYEN Referring Physician: GANESH NGUYEN Performed By: PEREZ Carlos Reason For Study: STEMI involving LAD Exam Location: [facility]. Interpretation Summary Normal left ventricle size with mildly reduced LV function. LV ejectionfraction 49%. LAD territory wall motion abnormality, predominantly involving the LVapex. No LV thrombus visualized with echo contrast. Normal right ventricle. No significant valvular abnormalities. Compared with prior echo dated 08/28/23, LV function has now decreased andnew wall motion abnormalities. Procedure Complete-[id number]. Image enhancement Definity was used for left [...] View (03/19/2024 8:37 AM EDT) WORKSTATION ID [id number] RAD Anatomical Region Laterality Modality Chest N/A [...] who have questions please contact the health manager critical care that requested your imaging first. ? Electronically signed by: Isa Whitley MD, [facility] ??([phone]), at 03/19/2024 10:09 AM Narrative 03/19/2024 10:09 [...] patients who have questions please contactthe health manager critical care that requested your imaging first. Electronically signed by: Isa Whitley MD, [facility]([phone]), at 03/19/2024 10:09 AM Delores Jett MD IMG DX ORDERABLES * APTT (03/19/2024 5:25 AM EDT) Only the most recent of2 resultswithin the time period is included. PTT 29 25 - 37 sec [facility] [...] MD HEMATOLOGY ORDERA BLES Performing Organization Address [facility] Co de Phone Number [facility] [place] [address] * Prothrombin Time (03/19/2024 5:25 AM EDT) Only the most recent of2 resultswithin the time period is included. PT 10.9 9.4 - 12.5 sec [facility] INR 1.0 [facility] Comment: An INR <2.0 indicates [...] [facility]/ZIP Co de Phone Number [facility] [place] [address] * Hemoglobin A1c (03/19/2024 5:25 AM EDT) [...] Mellitus, Diabetes Care 2013; 36: Suppl. 1, C37-41 Est Avg Gluc 114 mg/dL [facility] Blood Venous Draw / Unknown 03/19/2024 5:25 AM EDT 03/19/2024 3:52 PM EDT Narrative Resulting Agency Comment Spec In Lab Horace Hancock MD CHEMISTRY ORDERABLES [facility] [place] [address] * Lipid Panel (Reflex Direct LDL) (03/19/2024 5:25 AM EDT) Chol, Total 324 mg/dL [facility] Comment: Desirable: ? <200 mg/dL Borderline High: 200-239 mg/dL Higher: ?>ax=904 mg/dL Triglycerides 200 mg/dL [facility] Comment: Normal: ?<150 mg/dL Borderline High: 150-199 mg/dL High: ?200-499 mg/dL Very High: ? >jp=130 mg/dL HDL 68 mg/dL [facility] Comment: Females: High Risk: <50 mg/dL Males: High Risk: <40 mg/dL LDL Cholesterol 216 mg/dL [facility] Comment: Desirable: ? <100 mg/dL Above Desirable: 100-129 mg/dL Borderline High: 130-159 mg/dL High: ?160-189 mg/dL Very High: ? >ha=822 mg/dL Lipid Interpretation See Note [facility] [...] ACC/AHA Guidelines (most recently Jw et al. [facility] 06/17/22): For individuals with atherosclerotic cardiovascular disease (ASCVD)or LDL >ll=405 mg/dL, use a high-intensity statin (40-80 mg [...] CHEMISTRY ORDERAB LES [facility] [place] [address] * (ABNORMAL) Comprehensive metabolic panel (non-fasting) (03/19/2024 [...] [facility]/ZIP Co de Phone Number [facility] [place] [address] * Phosphorus (03/19/2024 2:20 AM EDT) Phosphorus 3.8 2.5 - 4.5 mg/dL [facility] Blood 03/19/2024 2:20 AM EDT 03/19/2024 2:59 AM EDT Narrative Resulting Agency Comment Spec In Lab Gaensh Nguyen MD CHEMISTRY ORDERAB LES Performing Organization Address [facility] Co de Phone Number [facility] [place] [address] * (ABNORMAL) pro-Brain Natriuretic Peptide (03/19/2024 2:20 AM EDT) ProBNP 529(H) <=124 pg/mL [facility] Blood 03/19/2024 2:20 AM EDT 03/19/2024 2:59 AM EDT Narrative Resulting Agency Comment Spec In Lab Ganesh Nguyen MD CHEMISTRY ORDERAB LES Performing Organization Address [facility] Co de Phone Number [facility] [place] [address] * (ABNORMAL) Hepatic Function Panel (03/19/2024 2:20 [...] CHEMISTRY ORDERAB LES [facility] [place] [address] * (ABNORMAL) Point of Care Blood Gas Historical (03/19/2024 1:41 AM EDT) Only the most recent of2 resultswithin the time period is included. POC pH 7.28(Criti lewis) 7.35 - 7.45 [facility] POC PCO2 40 35 - 45 mmHg [facility] POC PO2 84(L) 85 - 104 mmHg [facility] POC Base Excess -8.0(L) -3.0 - 3.0 mmol/L [facility] POC HCO3 18.6(L) 20.0 - 26.0 mmol/L [facility] POC TCO2 20(L) 22 - 31 mmol/L [facility] POC Sodium 134(L) 135 - 145 mmol/L [facility] POC Potassium 3.4(L) 3.5 - 5.0 mmol/L [facility] POC Ionized Ca 1.09(L) 1.15 - 1.33 mmol/L [facility] POC Hematocrit 38.0 34.0 - 45.0 % [facility] POC Calc Hgb 12.9 11.2 - 15.7 g/dL [facility] Blood 03/19/2024 1:41 AM EDT 03/19/2024 1:41 AM EDT Kathryn Walker MD CHEMISTRY ORDERABL ES [facility] [place] [address] * CARDIAC CATHETERIZATION (03/19/2024 1:36 AM EDT) Anatomical Region Laterality Modality Other Narrative 03/19/2024 7:19 AM EDT ?[facility] ? Cardiac Catheterization/Intervention Report ? Patient Name: Isa Ro A. ? Procedure Date: 03/19/2024 ? A #: [id number] ? Primary Physician: Ramo Roy ? Case #: [id number] ? File Name: [id number] ? Catheterization Order Number: [id number] ? [facility] ? Final Report [place], [place] ? Patient Name: ? Isa A. Warnaar ? ID#: ?[id number] ? : ?1965 ? Procedure Date: ? March 19, 2024 ? Case #: ? [id number] ? Room: ? 6 ? Case Physician: [...] procedure was Emergent. The indication for ?the superintendent geophysical laboratory visit is ACS less than or equal [...] ?3.5 guiding catheter and a 3.5 Fr [place] 20 Mhz using auto 1 ?mm/sec pullback. [...] ? A premounted 3.00 x 08 mm [place] Guadalupe (JAHAIRA) was deployed ? with a maximum inflation pressure of 12 atmospheres. ? Another stent insertion was accomplished through a 6 Fr. EBU ? 3.5 guide. ??A premounted 2.00 x 08 mm Alberto Guadalupe (JAHAIRA) was ? deployed. ? The final [...] dose administered prior to arrival in the superintendent geophysical laboratory. ?Recommended anti-platelet/anti-thrombotic regimen: ?Start aspirin 81 mg daily now and continue for indefinitely. ?Start clopidogrel 75 mg daily now and continue for 12 months then stop. ?These recommendations are made at the time of the intervention. Patient ?and provider preferences or a changing clinical situation may require ?modification of this regimen. Consult [facility] Interventional Cardiology for ?questions. [...] against any medical treatment. Consult ?http://tools.acc.org/DAPTriskapp/#!/content/calculator/ or [facility] ?Interventional Cardiology for questions [...] Procedure Note Ramo Roy MD - 03/21/2024 [facility] Cardiac Catheterization/Intervention Report Patient Name: Isa Ro Procedure Date: 03/19/2024 A #: [id number] Primary Physician: Ramo Roy Case #: [id number] File Name: [id number] Catheterization Order Number: [id number] [facility] FinalReport [place], [place] Patient Name: Isa Ro ID#:[id number] :1965 Procedure Date: March 19, 2024 Case [...] patientwas designated as ASA Class IV. The [facility] clinical frailty scale is 3: Managing Well. Diagnostic Tests: Prior Coronary Angiography: Prior coronary angiography was performed on 12/15/2014. Electrocardiography: EKG was assessed by ECG. EKG was Abnormal. EKG showed STDeviation >= 0.5 mm and other abnormality. Medications Prior to Procedure: Aspirin. Indications for Diagnostic Cath: The priority of the diagnostic procedure was Emergent. Theindication for the superintendent geophysical laboratory visit is ACS less than or equal [...] 3.5 guiding catheter and a 3.5 Fr [place] [facility] [place] 20 Mhz usingauto 1 mm/sec pullback. Imaging [...] The priority for the procedure was Emergent.The [facility] indication for the procedure was [...] The lesion was predilated with a 2.50mm [id number] MM balloon with a maximum inflation pressure of 14atmospheres. A premounted 3.00 x 08 mm Alberto Guadalupe (JAHAIRA) wasdeployed with a maximum inflation pressure of 12 atmospheres. Another stent insertion was accomplished through a 6 Fr.EBU 3.5 guide. A premounted 2.00 x 08 mm [place] Guadalupe (JAHAIRA)was deployed. The final outcome was defined [...] dose administered prior to arrival in the superintendent geophysical laboratory. Recommended anti-platelet/anti-thrombotic regimen: Start aspirin 81 mg daily now and continue for indefinitely. Start clopidogrel 75 mg daily now and continue for 12 months thenstop. These recommendations are made at the time of the intervention.Patient and provider preferences or a changing clinical situation mayrequire modification of this regimen. Consult [facility] Interventional Cardiologyfor questions. The [...] or against any medical treatment.Consult http://tools.acc.org/DAPTriskapp/#!/content/calculator/ or [facility] Interventional Cardiology for questions [...] Documents on File Type Date Recorded Patient Card Game Operator Expl anation Advance Directives and Livin g Will 03/21/2024 4:09 PM * Attempt Cardiopulmonary Resuscitation - Inpatient (Latest Code Status on File) Date Activated Date Inactivated Comments 03/19/2024 1:09 AM 03/22/2024 2:16 PM Question Answer Comments Code Status decision made by: Patient Content of discussion: discussed code st atus and need for CPR/shocks/intubation in periprocedural period Care Teams Video Game Programmer Relationship Specialty Start Date End Date None None PCP - General 03/19/24
--- OUTSIDE RECORDS SUMMARY | 2024-04-08 10:55 | XMS_ITS | Encounter Summary ---
Author Organization [facility] Address [address] [place] [address] Care Team Providers Care Set Staff Fitter Name Role Phone Unavailable Primary Care Provider Unavailabl e Encounter Details Date Type Department Care Team (Late st Contact Info) Description 05/15/2010 Results Only [facility] Laboratory Services - [facility] ([facility]) [address] [place], [place] [address] Jake Sabillon FNP [address] [place], [place] [id number] Social History Tobacco Use Types Packs/Day Years [...] ? EZEQUIEL THOMAS ? Accession #: ? [id number] ? : ? 1965 (Age: 45) ??F [...] [facility] 05/15/2010 05/17/2010 Jake Sabillon FORM MAKER PLASTER PATHOLOGY ORDERABLES [facility] [address] [place] [address] documented in this encounter Visit Diagnoses Not on filedocumented in this encounter
--- OUTSIDE RECORDS SUMMARY | 2024-04-08 10:55 | XMS_ITS | Encounter Summary ---
Author Organization [facility] Address [address] [place] [address] Care Team Providers Care Career Development Director Name Role Phone Pretty Avery MD Primary Care Provider [phone] Encounter Details Date Type Department Care Team (Latest Contact Info) Description 06/06/2010 18:54 EDT - 06/06/2010 23:59 EDT Hospital Encounter [address] [address] Pretty Avery MD [address] [place] [address] Discharge Disposition: Auto Discharge Social History Tobacco [...] on filedocumented in this encounter Care Teams Career Development Director Relationship Specialty Start Date End Date Pretty Avery MD [address] [place] [phone] PCP - General 06/05/10 documented as of this encounter
--- OUTSIDE RECORDS SUMMARY | 2024-04-08 10:55 | XMS_ITS | Encounter Summary ---
Author Organization [facility] Address [address] [place] [address] Care Team Providers Care Visual Basic Programmer Name Role Phone Unavailable Primary Care Provider Unavailabl e Encounter Details Date Type Department Care Team (Late st Contact Info) Description 04/30/2010 Results Only [facility] Medicine [address] [address] Pretty Avery MD [address] [place] [phone] Social History Tobacco Use Types Packs/Day Years [...]
--- OUTSIDE RECORDS SUMMARY | 2024-04-08 10:55 | XMS_ITS | Encounter Summary ---
Author Organization [facility] Address [address] [place] [address] Care Team Providers Care Television Anchor Name Role Phone Unavailable Primary Care Provider Unavailabl e Encounter Details Date Type Department Care Team (Late st Contact Info) Description 12/14/2006 Results Only [facility] [address] [place] [address] Jake Sabillon FNP [address] [place], [place] [address] Social History Tobacco Use Types Packs/Day Years [...] ? EZEQUIEL THOMAS ? Accession #: ? [id number] : ? 1965 (Age: 41) ??F ?Collect Date: ? 12/14/2006 Location: ? [facility] ? Receive Date: ? 12/16/2006 Provider: ?JAKE SABILLON MEDICAL DELIVERY DRIVER Copy to: ? Specimen/Source: ?ThinPrep Pap Test, Cervix/Endocervix, processed on [employer] ThinPrep Imaging System, with manual evaluation Last [...] Jake GARCÍAP PATHOLOGY ORDERABLES [facility] [address] [place] [address] documented in this encounter Visit Diagnoses Not on filedocumented in this encounter
--- OUTSIDE RECORDS SUMMARY | 2024-04-08 10:55 | XMS_ITS | Encounter Summary ---
Author Organization [facility] Address [address] [place] [address] Care Team Providers Care Maintenance Groundman Name Role Phone Pretty Avery MD Primary Care Provider [phone] Encounter Details Date Type Department Care Team (Late st Contact Info) Description 09/06/2013 Results Only [facility] Laboratory Services - [facility] ([facility]) [address] [place], [place] [id number] Jaek Sabillon FNP [address] [place], [place] [address] Social History Tobacco Use Types Packs/Day Years [...] ANNEEZEQUIEL GREEN Chuy ? Accession #: ? [id number] : ? 1965 (Age: 48) ??F ?Collect Date: ? 09/06/2013 Location: ? [facility] ? Receive Date: ? 09/08/2013 Provider: ?JAKE SABILLON INTERIOR PANELER Copy to: ? Specimen/Source: ?Pap Test, Cervix/Endocervix, [...] Date: ??09/13/2013 14:00 End of Report [facility] 09/06/2013 09/08/2013 Jake Sabillon INTERIOR PANELER PATHOLOGY ORDERABLES [facility] [address] [place] [address] documented in this encounter Visit Diagnoses Not on filedocumented in this encounter Care Teams Maintenance Groundman Relationship Specialty Start Date End Date Pretty Avery MD [address] [place] [address] PCP - General 06/05/10 documented as of this encounter
--- OUTSIDE RECORDS SUMMARY | 2024-04-08 10:55 | XMS_ITS | Encounter Summary ---
Author Organization [facility] Address [address] [place] [address] Care Team Providers Care Quality Control Name Role Phone Unavailable Primary Care Provider Unavailabl e Encounter Details Date Type Department Care Team (Late st Contact Info) Description 12/31/2007 Results Only [facility] Women's Services - [address] [phone] Skip Alcocer MD [address] [place] [address], [address] [place] [address] Social History Tobacco Use Types [...] Results * AMNIOTIC FLUID/[facility] ANEUPLOIDY FISH (FOR X,Y,21,13,18)([facility] #[id number]) (12/31/2007 16:34 EDT) Specimen (Note) Chorionic Villi Sample ? [facility] Specimen ID [id number] [facility] Order Date 01 Jan 2008 09:10 [facility] Method (Note) FISH analysis of 100 nuclei with probes for Xcen (DXZ1), ? Ycen (DYZ3), 13q14 (Rb1), 18cen (D18Z1) and 21q22 ([id number]). ? [facility] Reason For Referral [...] ? FISH results. ? The [employer] and the [employer] ? [employer] recommend confirmation of ? abnormal diagnostic results at or ? termination, to the extent possible. ? DISCLAIMER: ??This test was developed and its performance ? characteristics determined by Laboratory Medicine and ? Pathology, [facility]. ??It has not been cleared ? or approved by the U.S. Food and Drug Administration. ??This ? FISH assay does not rule out other chromosome anomalies. ? Woody et al., [place] Clin Proc 73:132-137, 1998. ? [facility] Sales Advisor (Note) Eduardo Corey MD ? [facility] Report Date 03 Jan 2008 12:44 Performed or Referred by: [facility] Dpt of Lab Med and Path, [address] , [place] [address], Lab Dir: MD URVASHI Morgan III 12/31/2007 16:3 4 EDT 12/31/2007 16:34 EDT Skip Alcocer MD GEN LAB UNIT [facility] ECT ORDERABLES [facility] [address] [place] [address] * [facility] CHROMOSOME ANALYSIS ([facility] #[id number]) (12/31/2007 16:34 EDT) Specimen (Note) Chorionic Villi Sample ? [facility] Specimen ID [id number] [facility] Order Date 01 Jan [...] ? reported separately. ? [facility] Sales Advisor (Note) Manuel V N Velagakarlyi PhD ? [facility] Report Date 10 Jan 2008 16:27 Performed or Referred by: [facility] Dpt of Lab Med and Path, [address] , [place] [address], Lab Dir: MD URVASHI Morgan III Haploid Band Resolution 400Unit: bands [facility] Total Cells Analyzed 30 [facility] Total Cells Karyotyped 2 [facility] 12/31/2007 16:3 4 EDT 12/31/2007 16:34 EDT Skip Alcocer MD HEMATOLOGY & PF4 ORDERABLES [facility] [address] [place] [address] documented in this encounter Visit Diagnoses Not on filedocumented in this encounter
--- OUTSIDE RECORDS SUMMARY | 2024-04-08 10:55 | XMS_ITS | Encounter Summary ---
Author Organization [facility] Address [address] [place] [address] Care Team Providers Care Coke Loader Name Role Phone Pretty Avery MD Primary Care Provider [phone] Reason for Referral * Consult (Routine) - Closed Specialty Diagnoses / Procedures Referred By Contac t Referred To Contact Diagnoses NSTEMI (non-ST elevated myocardial infarction) ([facility]) S/P coronary artery stent placement Yesy Manuel NP [address] [place] [id number] Alex Soto MD [address] [place] [id number] Referral ID Status Reason Start Date Expiration Date V isits Requested Visits Authorized [id number] Closed Specialty Services Required 03/31/2014 1 1 Question Answer Reason for Request: post NSTEMI post PCI, CAD Scheduling Comments (optional ? describe specific scheduling needs if applicable): 1 month Expected Discharge Date (Inpatient Only): 04/01/2014 Comments Please schedule in [facility] cardiology clinic with Dr Alex Soto or next available airline transport pilot at that clinic. Office in [place] [phone]; cardiology clinic in [facility] [phone] * Consult (Routine) - Closed Specialty Diagnoses / Procedures Referred By Contac t Referred To Contact Cardiac Rehabilitation Diagnoses NSTEMI (non-ST elevated myocardial infarction) ([facility]) S/P coronary artery stent placement Yesy Manuel NP [address] [facility] 1 [place] [address] Referral ID Status Reason Start Date Expiration Date V isits Requested Visits Authorized [id number] Closed Specialty Services Required 03/31/2014 1 1 Question Answer Reason for Request: post NSTEMI, post pci, CAD Scheduling Comments (optional ? describe specific scheduling needs if applicable): 1 week Expected Discharge Date (Inpatient Only): 04/01/2014 Comments Please refer to [facility] in [facility] Encounter Details Date Type Department Care Team (Late st Contact Info) Description 03/30/2014 20:10 EDT - 04/01/2014 15:30 EDT Hospital Encounter [facility] Cardiac/Telemetry Unit [address], [place] [address] Waqas Yao MD [address] [facility] 1 [place] [phone] NSTEMI (non-ST elevated myocardial infarction) ([facility]) (Primary Dx); S/P coronary artery stent placement [...] female with h/o HTN on rauwolfia by dipper fish, who was transferred from [facility] for chest pain, with [...] with rest, and she was brought to [facility]. Her EKG showed non-specific ST changes and trops elevated at 0.179. She was transferred to [facility] for NSTEMI. She was started on heparin gtt, ASA, atovastatin, metoprolol, and ticagelor load. Heparin was weaned over the night. In the morning she had 2 more episodes of chest pain, and given SL nitro x2, whichimproved pain. She was later taken for [facility] after a discussion of the need to be on blood thinning medications for 12 months if a stent was to be placed. The patient agreed. Her [facility] had culprit lesionin LAD, which [...] Consult/Follow Up Cardiac Rehabilitation Please refer to [facility] in [facility] Reason for Request: post NSTEMI, post pci, CAD Expected Discharge Date (Inpatient Only): 04/01/2014 Scheduling Time Frame: 1 week Authorizing Provider: Yesy Manuel NP Amb Consult/Follow Up Cardiology Please schedule in [facility] cardiology clinic with Dr Alex Soto or next available airline transport pilot at that clinic. Office in [place] [phone]; cardiology clinic in [facility] [phone] Reason for Request: post NSTEMI post PCI, [...] up with cardiology in 4-6 weeks at [facility] Please continue your cardiac medications, especially your [...] weeks. * Tali Jacobs MD - 03/31/2014 5567 EDT Cardiology Post Procedure Note Date of [...] case management office. Quyen Barrett RN, CM pager#[phone] * Yesy Manuel NP - 03/31/2014 1308 EDT Ticagrelor twice daily without interruption x 1 year reviewed with patient and she verbalizes understanding. Cardiac rehab reviewed with patient and the patient is willing to attend at [facility]. Referral sent and written material given to patient.Follow up has been requested with Dr Alex Soto in cardiology clinic, [facility]. 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 Patient's car is in [place] currently. Patient Goals: No other needs at [...] relived with rest. She was taken to [facility] and treated with nitro and aspirin. The patient experienced some relief with nitro. EKG showed non specific st changes and trops were elevated. She was transferredto [facility] for management. Currently with the nitro [...] clinical course Shahid Rayo MD Pager # [phone] 03/30/2014 21:10 Attestation statement::I have seen and [...] artery Procedure: She was brought to the [facility] Cardiac Catheterization Laboratory forthe procedure: [...] of Care - Robin Johnson - 03/31/2014 9897 EDT Problem: CIRCULATORY STATUS Goal: Patient Has [...] Care - Cuauhtemoc Berg RN - 03/31/2014 5182 EDT Problem: CIRCULATORY STATUS Goal: Patient Has Stable Vital Signs And Fluid Balance Outcome: Ongoing D: Patient arrived to [place] [address]. Vital signs noted, and tele applied. Patient [...] Referral Routine NSTEMI (non-ST elevated myocardial infarction) ([facility]) S/P coronary artery stent placement Ordered: 03/31/2014 AMB CONS/FOLLOW UP CARDIOLOGY Outpatient Referral Routine NSTEMI (non-ST elevated myocardial infarction) ([facility]) S/P coronary artery [...] 9:34 EST) 09/26/2015 9:34 EST Scan 2 Supervisor Bonding PROCEDURE/MINOR SHAYY GICAL ORDERABLES * ECG REPORT - SCANNED (04/06/2014 13:00 EDT) 04/06/2014 13:0 0 EDT Scan 2 Supervisor Bonding PROCEDURE/MINOR SHAYY GICAL ORDERABLES * ECG REPORT - SCANNED (04/06/2014 13:00 EDT) 04/06/2014 13:0 0 EDT Scan 2 Supervisor Bonding PROCEDURE/MINOR SHAYY GICAL ORDERABLES * INVASIVE CARDIOLOGY REPORT-SCANNED (04/06/2014 13:00 EDT) 04/06/2014 13:0 0 EDT Scan 2 Supervisor Bonding PROCEDURE/MINOR SHAYY GICAL ORDERABLES * ECG REPORT - SCANNED (04/05/2014 7:12 EDT) 04/05/2014 7:12 EDT Scan 2 Supervisor Bonding PROCEDURE/MINOR SHAYY GICAL ORDERABLES * ECG REPORT - SCANNED (04/04/2014 11:58 EDT) 04/04/2014 11:5 8 EDT Scan 2 Supervisor Bonding PROCEDURE/MINOR SHAYY GICAL ORDERABLES * ECG REPORT - SCANNED (04/04/2014 11:56 EDT) 04/04/2014 11:5 6 EDT Scan 2 Supervisor Bonding PROCEDURE/MINOR SHAYY GICAL ORDERABLES * (ABNORMAL) DIFFERENTIAL [...] PF4 ORD ERABLES [facility] [address] [place] [address] * HEMAGRAM (04/01/2014 5:50 EDT) WBC 11.20 [...] & PF4 ORD ERABLES Performing Organization Address [facility] [place] [facility] de Phone Number [facility] [address] [place] [address] * PTT (04/01/2014 5:50 EDT) PTT 27 26 - 37 secs [facility] Comment:Therapeutic Heparin range: 65-100 seconds Blood specimen (specimen) 04/01/2014 5:50 EDT 04/01/2014 6:36 EDT Shahid Rayo MD HEMATOLOGY & PF4 ORD ERABLES Performing Organization Address [facility] Phone Number [facility] [address] [place] [address] * CREATININE (04/01/2014 5:50 EDT) Creatinine 0.69 0.52 - 1.04 mg/dl [facility] GFR, Calculated >60 >60 ml/min/1.7 3m2 [facility] Blood specimen (specimen) 04/01/2014 5:50 EDT 04/01/2014 6:36 EDT Shahid Rayo MD CHEMISTRY & BLOOD GA S ORDERABLES Performing Organization Address [facility] [place] [facility] de Phone Number [facility] [address] [place] [address] * BUN (04/01/2014 5:50 EDT) BUN 10 10 - 26 mg/dl [facility] Blood specimen (specimen) 04/01/2014 5:50 EDT 04/01/2014 6:36 EDT Shahid Rayo MD CHEMISTRY & BLOOD GA S ORDERABLES Performing Organization Address [facility] [place] [facility] Co de Phone Number [facility] [address] [place] [address] * ELECTROLYTES (04/01/2014 5:50 EDT) Sodium 138 136 - 145 mEq/L [facility] Potassium 4.2 3.5 - 5.0 mEq/L [facility] Chloride 107 96 - 110 mEq/L [facility] CO2 24 24 - 32 mEq/L [facility] Blood specimen (specimen) 04/01/2014 5:50 EDT 04/01/2014 6:36 EDT Shahid Rayo MD CHEMISTRY & BLOOD GA S ORDERABLES Performing Organization Address [facility] [place] [facility] Co de Phone Number [facility] [address] [place] [address] * CK MB WITH TOTAL CK (04/01/2014 5:50 EDT) CK 35 30 - 135 U/L [facility] MB 1.58 <2.95 ng/ml [facility] Blood specimen (specimen) 04/01/2014 5:50 EDT 04/01/2014 6:36 EDT Yesy Manuel NP CHEMISTRY & BLOOD GA S ORDERABLES Performing Organization Address [facility] [place] [facility] Co de Phone Number [facility] [address] [place] [address] * CK MB WITH TOTAL CK (03/31/2014 22:14 EDT) CK 42 30 - 135 U/L [facility] MB 1.72 <2.95 ng/ml [facility] Blood specimen (specimen) 03/31/2014 22:14 EDT 03/31/2014 22:19 EDT Shahid Rayo MD CHEMISTRY & BLOOD GA S ORDERABLES Performing Organization Address City/[facility]/ZIP Co de Phone Number [facility] [address] [place] [address] * (ABNORMAL) TROPONIN I (03/31/2014 14:32 EDT) Troponin I (ng/mL) 0.136(H) <0.034 ng/ml [facility] Blood specimen (specimen) 03/31/2014 14:32 EDT 03/31/2014 15:09 EDT Shahid Rayo MD CHEMISTRY & BLOOD AZ S ORDERABLES Performing Organization Address [facility] [place] [facility] de Phone Number [facility] [address] [place] [address] * CK MB WITH TOTAL CK (03/31/2014 14:32 EDT) CK 62 30 - 135 U/L [facility] MB 2.04 <2.95 ng/ml [facility] Blood specimen (specimen) 03/31/2014 14:32 EDT 03/31/2014 15:09 EDT Shahid Rayo MD CHEMISTRY & BLOOD GA S ORDERABLES Performing Organization Address [facility] de Phone Number [facility] [address] [place] [address] * EKG 12-LEAD (03/31/2014 13:30 EDT) 03/31/2014 13:3 0 EDT Narrative [facility] EKG - 04/04/2014 7:56 EDT ?[facility] ? Test Date: ?2014-03-31 Pat Name: ? ISA RO ?Department: ?? [facility] ? Room: ? MW511 Gender: ? F ?Flower Cutter: ?? [id number] : ?1965 ? Requested By: YESY MANUEL DIRECTOR OF PRODUCT DEVELOPMENT Order Number: [id number] ? Reading MD: ?? BRYAN PURDY MD ? Measurements Intervals ?[place] ? Rate: ? 50 ? P: ?57 DE: ? 154 ?QRS: ?29 QRSD: ? 90 [...] Date: 2014-03-31 Pat Name: ISA RO Department: [place] [address] Room: [facility] Gender: F Flower Cutter: [id number] : 1965 Requested By: YESY MANUEL NP Order Number: [id number] Reading MD: BRYAN PURDY MD Measurements Intervals [place] Rate: 50 P: 57 DE: 154 QRS: 29 QRSD: 90 T: 38 [...] 5 EDT Narrative 03/31/2014 13:08 EDT Cardiology [address] [place] [address] Catheterization Laboratory Study Patient: Isa Ro ? Study Date: ?03/31/2014 ? Accession #: ? [id number] : ? 1965 Referring Physician: Dilip Mahajan [...] successfully achieved. SUMMARY: 1. HPI and indications: Itj-GY-xfynsple myocardial infarction. 2. LAD: Proximal vessel lesion: [...] 4. Continue aspirin, at 81mgPOdaily, indefinitely. HISTORY: Hcz-JQ-lodzjfpk myocardial infarction. ??Functional status: ?? CCS class [...] radial artery access. A 5Fr/10 cm Terumo Mar Lin Sheath Radial sheath was ?? advanced into [...] MD 2014-03-31 13:08 Procedure Note 03/31/[address] [place] [address] Catheterization Laboratory Study Patient: Isa Ro Study [...] successfully achieved. SUMMARY: 1. HPI and indications: Afk-JM-zjdyeaum myocardial infarction. 2. LAD: Proximal vessel lesion: [...] Add tricagrelor (Brilinta), loading dose 180mgPO, standing [id number], for 12mon. 4. Continue aspirin, at 81mgPOdaily, indefinitely. HISTORY: Nli-WS-pcrtsurx myocardial infarction. Functional status: CCS class IV [...] radial artery access. A 5Fr/10 cm Terumo Mar Lin Sheath Radialsheath was advanced into the vessel. [...] 2. Vessel setup was performed. A [address] [employer] wire was used to crossthe lesion. 3. [...] EDT *Interpreting Group:* *[facility]* [address] [place] [address] *STUDY CONCLUSIONS* Summary: ?? Left ventricle: The [...] ATTENDING ?Waqas Yao MD REFERRING ?Pretty Avery* MEDICAL GRADE SHOEMAKER ??Tracey Black PERFORMING ?? [facility], FELLOW ? Abiodun Velez ORDERING ? Joel Parker REFERRING ?Joel Parker j *PROCEDURE DATA* Procedure information: ??This study was interpreted by [facility] at [facility]. ??Study status: ??Routine. Transthoracic echocardiography. ??M-mode, complete 2D, complete spectral Doppler, and color Doppler. A Transthoracic Echocardiogram was performed. Scanning was performed from the parasternal, apical, subcostal, and suprasternal notch acoustic windows. Images were obtained using a Shubham IE33 3 cardiac ultrasound machine. Image quality was adequate. ??Study completion: ??The patient tolerated the procedure well. *INDICATIONS AND HISTORY* Indications: ?? [place] - nontransmural - acute 410.71. *CARDIAC ANATOMY* [...] outside specified normal range. Electronically signed by Waaqs Torres MD 03/31/2014 11:13 Procedure Note 03/31/2014 *Interpreting Group:* *[facility]* [address] [place] [address] *STUDY CONCLUSIONS* Summary: Left ventricle: The cavity [...] ATTENDING Waqas Yao MD REFERRING Pretty Avery* MEDICAL GRADE SHOEMAKER Tracey Black PERFORMING Fa, FELLOW Abiodun Velez ORDERING Joel Parker REFERRING Joel Parker j *PROCEDURE DATA* Procedure information: This study was interpreted by [facility]. Study status: Routine.Transthoracic echocardiography. M-mode, complete 2D, complete spectral Doppler, andcolor Doppler. A Transthoracic Echocardiogram was performed. Scanning wasperformed from the parasternal, apical, subcostal, and suprasternal notch acoustic windows. Images were obtained using a Shubham IE33 3 cardiac ultrasoundmachine. Image quality was adequate. Study completion: The patient tolerated the procedure well. *INDICATIONS AND HISTORY* Indications: [place] - nontransmural - acute 410.71. *CARDIAC ANATOMY* [...] ? Room: ? MW511 Gender: ? F ?Flower Cutter: ?? [id number] : ?1965 ? Requested By: WAQAS YAO MD Order Number: [id number] ? Reading MD: ?? LYDIA DALTON MD ? Measurements Intervals ?[place] ? Rate: ? 59 ? P: ?58 DE: ? 154 ?QRS: ?41 QRSD: ? 88 [...] Date: 2014-03-31 Pat Name: ISA SHEPHERDISAI Department: [place] [address] Room: MW511 Gender: F Flower Cutter: [id number] : 1965 Requested By: WAQAS YAO MD Order Number: [id number] Reading MD: LYDIA DALTON MD Measurements Intervals [place] Rate: 59 P: 58 DE: 154 QRS: 41 QRSD: 88 T: 43 [...] & PF4 ORD ERABLES Performing Organization Address City/[facility]/ZIP Co de Phone Number [facility] [address] [place] [address] * HEMAGRAM (03/31/2014 6:43 EDT) Pathologist [facility] WBC 8.21 4.0 - 12.4 K/cmm [facility] [...] & PF4 ORD ERABLES Performing Organization Address City/[facility] Co de Phone Number [facility] [address] [place] [address] * (ABNORMAL) PTT (03/31/2014 6:43 EDT) Pathologist [facility] PTT 51(H) 26 - 37 secs [facility] Comment:Therapeutic Heparin range: 65-100 seconds Blood specimen (specimen) 03/31/2014 6:43 EDT 03/31/2014 7:01 EDT Shahid Rayo MD HEMATOLOGY & PF4 ORD ERABLES Performing Organization Address [facility] [place] [facility] de Phone Number [facility] [address] [place] [address] * CREATININE (03/31/2014 6:43 EDT) Pathologist [facility] Creatinine 0.70 0.52 - 1.04 mg/dl [facility] GFR, Calculated >60 >60 ml/min/1.7 3m2 [facility] Blood specimen (specimen) 03/31/2014 6:43 EDT 03/31/2014 7:01 EDT Shahid Rayo MD CHEMISTRY & BLOOD GA S ORDERABLES Performing Organization Address [facility] [place] [facility] de Phone Number [facility] [address] [place] [address] * BUN (03/31/2014 6:43 EDT) BUN 15 10 - 26 mg/dl [facility] Blood specimen (specimen) 03/31/2014 6:43 EDT 03/31/2014 7:01 EDT Shahid Rayo MD CHEMISTRY & BLOOD GA S ORDERABLES Performing Organization Address [facility] Phone Number [facility] [address] [place] [address] * ELECTROLYTES (03/31/2014 6:43 EDT) Sodium 139 136 - 145 mEq/L [facility] Potassium 4.2 3.5 - 5.0 mEq/L [facility] Chloride 107 96 - 110 mEq/L [facility] CO2 24 24 - 32 mEq/L [facility] Blood specimen (specimen) 03/31/2014 6:43 EDT 03/31/2014 7:01 EDT Shahid Rayo MD CHEMISTRY & BLOOD GA S ORDERABLES Performing Organization Address [facility] [place] [facility] Phone Number [facility] [address] [place] [address] * LIPID PROFILE (INCLUDES CHOLESTEROL, TRIGLYCERIDES, HDL, LDL) (03/31/2014 6:43 EDT) Cholesterol 152 mg/dl [facility] Comment: Desirable:<200 Borderline High:200-239 High:>re=867 Triglycerides 100 mg/dl [facility] Comment: Normal:<150 Borderline High:150-199 High:200-499 Very High:>hw=068 HDL 50 mg/dl [facility] Comment: Low:<40 Normal:40-60 Desirable: >60 LDL, Calculated 82 mg/dl [facility] Comment: Optimal:<100 Near Optimal:100-129 Borderline High:130-159 High:160-189 Very High:>kd=810 Chol/HDL Ratio 3.0 [facility] Fasting? Unknown [facility] Non HDL Cholesterol 102 mg/dl [facility] Comment: Desirable:<130 Borderline:130-159 High: 160-189 Very High: >ax=288 Blood specimen (specimen) 03/31/2014 6:43 EDT 03/31/2014 7:01 EDT Shahid Rayo MD CHEMISTRY & BLOOD GA S ORDERABLES Performing Organization Address [facility] [place] [facility] Co de Phone Number [facility] [address] [place] [address] * (ABNORMAL) TROPONIN I (03/31/2014 6:43 EDT) Troponin I (ng/mL) 0.180(H) <0.034 ng/ml [facility] Blood specimen (specimen) 03/31/2014 6:43 EDT 03/31/2014 7:01 EDT Shahid Rayo MD CHEMISTRY & BLOOD GA S ORDERABLES Performing Organization Address [facility] [place] [facility] Co de Phone Number [facility] [address] [place] [address] * CK MB WITH TOTAL CK (03/31/2014 6:43 EDT) CK 55 30 - 135 U/L [facility] MB 2.51 <2.95 ng/ml [facility] Blood specimen (specimen) 03/31/2014 6:43 EDT 03/31/2014 7:01 EDT Shahid Rayo MD CHEMISTRY & BLOOD GA S ORDERABLES Performing Organization Address [facility] [place] [facility] Co de Phone Number [facility] [address] [place] [address] * HEMOGLOBIN A1C (03/31/2014 6:43 EDT) Hemoglobin [...] BLOOD GA S ORDERABLES Performing Organization Address [facility] [place] [facility] Co de Phone Number [facility] [address] [place] [address] * HEMAGRAM (03/30/2014 22:23 EDT) WBC 9.80 [...] HEMATOLOGY & PF4 ORDERABLES Performing Organization Address [facility] [place] [facility] de Phone Number [facility] [address] [place] [address] * INPATIENT ADD-ON (03/30/2014 22:00 EDT) Pathologist [facility] Tests to be added HEMAGRAM [facility] Number for problems MW5 [facility] Accession number [id number] [facility] 03/30/2014 22:0 0 EDT 03/30/2014 22:10 EDT Shahid Rayo MD HEMATOLOGY & PF4 ORD ERABLES Performing Organization Address [facility] Co de Phone Number [facility] [address] [place] [address] * CK MB WITH TOTAL CK (03/30/2014 21:01 EDT) [facility] CK 59 30 - 135 U/L [facility] MB 2.26 <2.95 ng/ml [facility] Blood specimen (specimen) 03/30/2014 21:01 EDT 03/30/2014 21:10 EDT Shahid Rayo MD CHEMISTRY & BLOOD GA S ORDERABLES Performing Organization Address [facility] Co de Phone Number [facility] [address] [place] [address] * (ABNORMAL) TROPONIN I (03/30/2014 21:01 EDT) [facility] Troponin I (ng/mL) 0.179(H) <0.034 ng/ml [facility] Blood specimen (specimen) 03/30/2014 21:01 EDT 03/30/2014 21:10 EDT Shahid Rayo MD CHEMISTRY & BLOOD GA S ORDERABLES Performing Organization Address [facility] de Phone Number [facility] [address] [place] [address] * CREATININE (03/30/2014 21:01 EDT) [facility] Creatinine 0.74 0.52 - 1.04 mg/dl [facility] GFR, Calculated >60 >60 ml/min/1.7 3m2 [facility] Blood specimen (specimen) 03/30/2014 21:01 EDT 03/30/2014 21:10 EDT Shahid Rayo MD CHEMISTRY & BLOOD GA S ORDERABLES Performing Organization Address [facility] Phone Number [facility] [address] [place] [address] * BUN (03/30/2014 21:01 EDT) BUN 13 10 - 26 mg/dl [facility] Blood specimen (specimen) 03/30/2014 21:01 EDT 03/30/2014 21:10 EDT Shahid Rayo MD CHEMISTRY & BLOOD GA S ORDERABLES Performing Organization Address [facility] de Phone Number [facility] [address] [place] [address] * ELECTROLYTES (03/30/2014 21:01 EDT) Sodium 139 136 - 145 mEq/L [facility] Potassium 3.7 3.5 - 5.0 mEq/L [facility] Chloride 105 96 - 110 mEq/L [facility] CO2 24 24 - 32 mEq/L [facility] Blood specimen (specimen) 03/30/2014 21:01 EDT 03/30/2014 21:10 EDT Shahid Rayo MD CHEMISTRY & BLOOD GA S ORDERABLES Performing Organization Address [facility] de Phone Number [facility] [address] [place] [address] * PROTIME (03/30/2014 21:01 EDT) Pro Time [...] PF4 ORD ERABLES [facility] [address] [place] [address] * (ABNORMAL) PTT (03/30/2014 21:01 EDT) PTT 130(HH) 26 - 37 secs [facility] Comment:Therapeutic Heparin range: 65-100 seconds Blood specimen (specimen) 03/30/2014 21:01 EDT 03/30/2014 21:10 EDT Shahid Rayo MD HEMATOLOGY & PF4 ORD ERABLES Performing Organization Address City/[facility] Co de Phone Number [facility] [address] [place] [address] documented in this encounter Visit Diagnoses Diagnosis NSTEMI (non-ST elevated myocardial infarction) ([facility] Primary Acute myocardial infarction, subendocardial infarction, episode of care unspecified NSTEMI (non-ST elevated myocardial infarction) ([facility]) Acute myocardial infarction, subendocardial infarction, episode of [...] Pain, Routine 0813 (Given - Provider: Cuauhtemoc Breg RN)2037 (Given - Provider: Ivan Nguyen) 1039 [...] 03/14 documented in this encounter Care Teams Coke Loader Relationship Specialty Start Date End Date Pretty Avery MD [address] [place] [address] PCP - General 06/05/10 documented as of this encounter
--- OUTSIDE RECORDS SUMMARY | 2024-04-08 10:55 | XMS_ITS | Encounter Summary ---
[place] [address] Care Team Providers Care Television Tube Inspector Name Role Phone None Primary Care Provider Unavailabl e Encounter Details Date Type Department Care Team (Late st Contact Info) Description 03/27/2024 Telephone Cardiology at [address] [phone] Fidel Yanes PA [facility] [place] [address] Social History Tobacco Use Types Packs/Day Years Used Date Smoking Tobacco: Former Smokeless Tobacco: Never Alcohol Use Standard Drinks/Week Comments Yes 14 (1 standard drink = 0.6 oz pu re alcohol) [facility] Utilities Answer Date Recorded In the past [...] time in the past 12 m [facility], were you homeless or living in a [facility] (including now)? 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 Isa called in from home [...] AM EDT Office Visit Cardiology at [address] [place] [address] Herlinda Weaver PA [facility] [place] [address] documented as of this encounter Visit Diagnoses Not on filedocumented in this encounter Care Teams Television Tube Inspector Relationship Specialty Start Date End Date None None PCP - General 03/19/24 documented as of this encounter
--- OUTSIDE RECORDS SUMMARY | 2024-04-08 10:56 | XMS_ITS | Encounter Summary ---
Author Organization [facility] [place] [address] Care Team Providers Care Lab Specialist Name Role Phone None Primary Care Provider Unavailabl e Reason for Visit * Auth/Cert (Routine) Specialty Diagnoses / Procedures Referred By Contac t Referred To Contact Diagnoses Acute ST elevation myocardial infarction (STEMI) due to occlusion of left anterior descending (LAD) coronary artery stemi Procedures EMERGENCY IPI Destin Ambrosio MD [facility] [place] [address] [facility] Referral ID Status Reason Start Date Expiration Date Visits Re quested Visits Authorized [id number] 1 1 Encounter Details Date Type Department Care Team (Latest Contact Info) Description 03/19/2024 8:10 AM EDT - 03/19/2024 11:59 PM EDT Hospital Encounter Non-[place] [phone] Discharge Disposition: Home Social History Tobacco Use [...] 10:40 AM EDT Office Visit Cardiology at [address] [place] [address] Herlinda Weaver PA [facility] [place] [id number] documented as of this encounter Procedures Procedure [...] mLs documented in this encounter Care Teams Lab Specialist Relationship Specialty Start Date End Date None None PCP - General 03/19/24 documented as of this encounter
--- OUTSIDE RECORDS SUMMARY | 2024-04-08 10:56 | XMS_ITS | Encounter Summary ---
Author Organization [facility] [place] [address] Care Team Providers Care Director Of Patient Care Name Role Phone None Primary Care Provider Unavailabl e Encounter Details Date Type Department Care Team (Late st Contact Info) Description 03/18/2024 External Results Emergency Department [facility] [place] [phone] Social History Tobacco Use Types Packs/Day Years Used Date Smoking Tobacco: Former Smokeless Tobacco: Never [facility] Utilities Answer Date Recorded In the [...] in the past [address] [facility], were you homeless or living in a correction (including now)? No 03/21/2024 IPV Inpatient Questions [...] 10:40 AM EDT Office Visit Cardiology at [address] [place] [address] Herlinda Weaver PA [facility] [place] [address] documented as of this encounter Procedures Procedure [...] on filedocumented in this encounter Care Teams Director Of Patient Care Relationship Specialty Start Date End Date None None PCP - General 03/19/24 documented as of this encounter
--- OUTSIDE RECORDS SUMMARY | 2024-04-08 10:56 | XMS_ITS | Encounter Summary ---
Author Organization [facility] [place] [address] Care Team Providers Care Branch Employment Coordinator Name Role Phone None Primary Care Provider Unavailabl e Reason for Visit * Auth/Cert (Routine) Specialty Diagnoses / Procedures Referred By Contac t Referred To Contact Diagnoses Acute ST elevation myocardial infarction (STEMI) due to occlusion of left anterior descending (LAD) coronary artery stemi Procedures EMERGENCY IPI Destin Ambrosio MD [facility] [place] [address] [facility] Referral ID Status Reason Start Date Expiration Date Visits Re quested Visits Authorized [id number] 1 1 Encounter Details Date Type Department Care Team (Late st Contact Info) Description 03/19/2024 1:05 AM EDT - 03/19/2024 2:06 [place] [address] Ramo Roy MD [facility] [place] [address] CARDIAC CATHETERIZATION Social History Tobacco Use Types Packs/Day Years Used Date Smoking Tobacco: Former Smokeless Tobacco: Never Alcohol Use Standard Drinks/Week Comments Yes 14 (1 standard drink = 0.6 oz pu re alcohol) [facility] Inpatient Questions Answer Date Recorded Does Anyone [...] Isa Ro Patient Age: 59 y.o. Language: Vietnamese Race: White Ethnicity: Not nor Admit date: [...] hypoxemic and hypercapnic respiratory failure in the laboratory animal facility supervisor, potentially also due to sedation. Patient briefly [...] given mildly reduced LVEF [ ] f/u [facility] cardiology scheduled. [facility] cardiology referral sent Inpatient Provider Contact Information: Kathryn Walker MD [phone] For questions regarding this document or issues relating to this hospitalization on the Medical Service, please contact your inpatient physician through the [facility] User Experience Manager . Issues afterhours and on weekends will [...] 03/19/2024 8:37 AM) Result Value WORKSTATION ID [id number] Narrative EXAMINATION: XR CHEST ONE VIEW CLINICAL [...] who have questions please contact the health direct care staffer that requested your imaging first. Cardiac Catheterization (Exam End: 03/19/2024 1:36 AM) Narrative [facility] Cardiac Catheterization/Intervention Report Patient Name: Isa Ro Procedure Date: 03/19/2024 A #: [id number] Primary Physician: Ramo Roy Case #: [id number] File Name: [id number] Catheterization Order Number: [id number] [facility] Actuary [facility] Final Report [place], [place] Patient Name: Isa Ro ID#: [id number] : 1965 Procedure Date: March 19, 2024 [...] was designated as ASA Class IV. The [facility] clinical frailty scale is 3: Managing Well. Diagnostic Tests: Prior Coronary Angiography: Prior coronary angiography was performed on 12/15/2014. Electrocardiography: EKG was assessed by ECG. EKG was Abnormal. EKG showed ST Deviation >= 0.5 mm and other abnormality. Medications Prior to Procedure: Aspirin. Indications for Diagnostic Cath: The priority of the diagnostic procedure was Emergent. The indication for the laboratory animal facility supervisor visit is ACS less than or equal [...] 3.5 guiding catheter and a 3.5 Fr [place] [facility] [place] 20 Mhz using auto 1 mm/sec pullback. [...] for the procedure was Emergent. The [facility]ANNER indication for the procedure was STEMI-Immediate [...] A premounted 3.00 x 08 mm Alberto [place] (JAHAIRA) was deployed with a maximum inflation pressure of 12 atmospheres. Another stent insertion was accomplished through a 6 Fr. EBU 3.5 guide. A premounted 2.00 x 08 mm Alberto [place] (JAHAIRA) was deployed. The final outcome was [...] dose administered prior to arrival in the laboratory animal facility supervisor. Recommended anti-platelet/anti-thrombotic regimen: Start aspirin 81 mg daily now and continue for indefinitely. Start clopidogrel 75 mg daily now and continue for 12 months then stop. These recommendations are made at the time of the intervention. Patient and provider preferences or a changing clinical situation may require modification of this regimen. Consult [facility] Interventional Cardiology for questions. The 1 year [...] against any medical treatment. Consult http://tools.acc.org/DAPTriskapp/#!/content/calculator/ or [facility] Interventional Cardiology for questions Conclusions: * One [...] decreased and new wall motion abnormalities. Procedure Complete-27695. Image enhancement Definity was used for left [...] LAD in 03/2014, HLD, who presented to [facility] with chest pain. She developed chest pain around 2100 on 03/18 which prompted her to call EMS. She was given 325mg of aspirin and nitroglycerin. On arrival to [facility], she was found to have an EKG suggestive of anterior STEMI for which she was given half dose TNKfor systemic lysis prior to speaking with Dr. Herrera, on-call sales assistant at [facility]. She was subsequently transferred directly to the [facility] laboratory animal facility supervisor where coronary angiography revealed a 100% occluded [...] away. Stay on the phone. The emergency circle saw operator will tell you what to do. [...] of 8AM-5PM please call the Cardiology Clinic [phone] to speak with a nurse. All other hours please call the Hospital User Experience Manager [phone] and ask to speak to the cardiovascular hospitalist on-call. Return to work: One week Follow up Appointments: Doctor Where Phone # Date Time PCP MELECIO Polanco [address] [place] [address] 741 04/04/24 7:55 AM Certified Fire Investigator Herlinda Weaver PA-C [facility] Cardiology 4A Clinic [phone] 05/09/24 10:40 AM (pleasearrive by 10:20 AM) *A referral has also been placed to [facility] cardiology, though you will need to follow-up with them regarding scheduling appointments at [phone] General Instructions None Future Appointments and Orders Future Appointments and Orders Future Appointments Provider Department Dept Phone 05/09/2024 10:40 AM Herlinda Weaver PA Cardiology at [facility] Arrive at: Wardrobe Specialty Worker Area [phone] Future Orders Complete By Expires Referral to Cardiac Rehab [DOQ514 Custom] As directed Process Instructions: If no progress note charted, please enter Clinical details in comments. Scheduling Instructions: Questions: My question or request is: s/p STEMI- cardiac rehab at [facility] Referral to Cardiology [REF12 Custom] As directed Process Instructions: If no progress note charted, please enter Clinical details in comments. Scheduling Instructions: Questions: My question or request is: s/p STEMI Discharge References/Attachments None Greater than 30 minutes was spent on this discharge including documentation, [id number] time withthe patient, patient education, blood bank order control clerk, coordination with pharmacy and other patient [...] away. Stay on the phone. The emergency circle saw operator will tell you what to do. [...] cardiac rehab has also been placed to [facility]. Call your doctor if: Chest pain, dyspnea, pain or swelling in legs occurs, or for weight gain of 2 pounds overnight or 5pounds in 5 days. If you have non-emergent questions, prior to your follow-up visit call: Thursday-Thursday between the hours of 8AM-5PM please call the Cardiology Clinic [phone] to speak with a nurse. All other hours please call the Hospital User Experience Manager [phone] and ask to speak to the cardiovascular hospitalist on-call. Return to work: One week Follow up Appointments: Doctor Where Phone # Date Time PCP MELECIO Polanco [address] [place] [address] 04/04/24 7:55 AM Certified Fire Investigator Herlinda Weaver PA-C [facility] Cardiology 4A Clinic [phone] 05/09/24 10:40 AM (pleasearrive by 10:20 AM) *A referral has also been placed to [facility] cardiology, though you will need to follow-up with them regarding scheduling appointments at [phone] documented in this encounter Medications at Time [...] agreed to participate in cardiac rehab at [facility] following discharge Review of Systems: Review of [...] BID heparin (porcine) 5,000 Units Subcutaneous Q8H KALIA aspirin 81 mg Oral Daily clopidogreL 75 [...] to have resulted in hypoxemia in the laboratory animal facility supervisor. She was also a bit hypercapnic which [...] pt re: Losartan/GDMT consideration -Cardiac Rehab at [facility] following discharge -Telemonitoring x72 hours -Plan for discharge tomorrow -Cardiology appointment scheduled 05/09/2024 at 10:40 AM t [facility] #Significant HLD -LDL 324 -Atorvastatin 80mg daily [...] to have resulted in hypoxemia in the laboratory animal facility supervisor. She was also a bit hypercapnic which [...] 03/19/2024 8:20 PM EDTSummary: Chest Pain Patient loss prevention consultant light c/o chest pain 11/21. I asked [...] Mcbride MD - 03/19/2024 2:50 AM EDT [facility] TeleICU Initial Assessment Note I established audio/visual communication with the patient's room, reviewed the eDH. History and Assessment: 59 yo F transferred from [facility] for a STEMI alert. Received ASA [...] => BiPAP started Following procedure, transferred to [facility] - able to be weaned to [...] 10:00 PM Hospital to which patient presented: [facility] Hospital to which patient presented= [facility]: ED via EMS Date and Time of [...] Not contraindicated Plan STEMI Alert called: Yes Actuary Activated by: Food Service Sales Representatives Initial Disposition: Admit Actuary documented in this encounter H&P Notes * [...] to LAD in 03/2014, HLD,who presented to [facility] with chest pain. She developed chest pain around 2100 on 03/18 which prompted her to call EMS. She was given 325mg of aspirin and nitroglycerin. On arrival to [facility], she was found to have an EKG suggestive of anterior STEMI for which she was given half dose TNK for systemic lysis prior to speaking with Dr. Herrera, on-call sales assistant at [facility]. She was subsequently transferred directly to the [facility] laboratory animal facility supervisor where coronary angiography revealed a 100% occluded [...] to have resulted in hypoxemia in the laboratory animal facility supervisor. She was also a bit hypercapnic which [...] Cardiopulmonary Resuscitation - Inpatient Ganesh Nguyen MD Food Service Sales Representatives [id number] documented in this encounter Miscellaneous Notes [...] Care: Contact information for follow-up Cardiac Rehab, [facility] [address] [facility] [address] Cardiology, [facility] [address] [facility] [address] Transportation: family or friend will provide Functional [...] 03/21/2024 4:02 PM EDT Patient completed a [place] advance directive. Patient identified her sister Stacia [...] N/A ; Prescription Coverage: Yes Preferred Pharmacy: [facility] [address] [facility] [address] [place], [place] [address]way [address] [facility] [address] [id number] - [place], [place] - [address] [place] [address] [address] [facility] [address] [facility] [address] [facility] [address] - [place], [place] - [address] [facility] [address] [place] [id number] Advance Care Planning: Attempt Cardiopulmonary Resuscitation - Inpatient <no information> -Advanced Directive: No, need to discuss (RS referral sent for AD discussion) Current Functional Ability: Assistive Person Functional Status Prior to Admission: Independent Home Environment: Others in the home: child(lucian), minor (lives with her 15yo son). Current Living Arrangements: home/apartment/condo. Accessibility Concerns:house with 3 floors and 2 [address]. Current DME: none [address] [facility] [address] Social & Family Supports: All names listed below confirmed with patient as current and correct Extended Emergency Contact Information Primary Emergency Contact[facility] [place] Mobile Relation: Mother Current [...] to for AD discussion today. Registered Nurse Information Systems Consultant / Chemical Engineering Technologist will continue to follow patient???s progress and [...] in an outpatient cardiac rehabilitation program at [facility] was discussed. Patient agrees to a referral [...] Operative Note Patient Name: Isa Ro : [id number] MR#: [id number] Case Date: 03/19/2024 Surgeon: Surgeons and Role: [...] 10:40 AM EDT Office Visit Cardiology at [address] [place] [address] Herlinda Weaver PA [facility] [place] [address] Scheduled Referrals Name Type Priority Associated Diagnoses [...] 5:06 AM EDT) Neutrophils % 71.6 % [facility] Neutr Abs (ANC) 8.34(H) 1.70 - 6.10 x10(3)/mc L [facility] Lymphocytes % 17.4 % [facility] Lymphocytes Abs 2.0 0.9 - 3.2 x10(3)/mc L [facility] Monocytes % 8.2 % [facility] Monocyte Abs 1.0(H) 0.3 - 0.9 x10(3)/mc L [facility] Eosinophils % 2.2 % [facility] Eosinophils Abs 0.3 0.0 - 0.4 x10(3)/mc L [facility] Basophils % 0.3 % [facility] Basophils Abs 0.0 0.0 - 0.1 x10(3)/mc L [facility] Immature Gran % 0.30 % [facility] Comment: Immature granulocytes(IG's)percentage and absolute count will include metamyelocytes, myelocytes, and promyelocytes. Blood smears from CBCs yielding IG's will be scanned manually for concordance. If this scan disagrees with the automated IG or if promyelocytes are noted, a manual differential will be performed. Lesia Gran Abs 0.03 0.00 - 0.04 x10(3)/[facility] Blood 03/22/2024 5:06 AM EDT 03/22/2024 5:12 AM EDT Narrative Resulting Agency Comment Spec In Lab Horace Hancock MD HEMATOLOGY ORDERABLE S [facility] [place] [address] * (ABNORMAL) Hemogram (03/22/2024 5:06 AM EDT) WBC 11.6(H) 4.0 - 9.5 x10(3)/[facility] RBC 4.80 4.00 - 5.21 x10(6)/[facility] Hemoglobin 13.5 11.7 - 15.5 g/dL [facility] Hematocrit 40.3 35.7 - 45.8 % [facility] MCV 84.0 82.6 - 94.4 fL [facility] MCH 28.1 27.1 - 32.0 pg [facility] MCHC 33.5 31.7 - 35.0 g/dL [facility] Platelets 232 145 - 357 x10(3)/[facility] LABORATORY RDWSD 42.2 37.0 - 46.0 [facility] RDWCV 13.5 11.5 - 14.1 % [facility] MPV 9.7 7.6 - 12.9 [facility] nRBC % Auto 0.0 % [facility] nRBC Abs Auto 0.000 0.000 - 0.000 x10(3)/mcL [facility] Blood 03/22/2024 5:06 AM EDT 03/22/2024 5:12 AM EDT Narrative Resulting Agency Comment Spec In Lab Horace Hancock MD HEMATOLOGY ORDERABLE S [facility] [place] [address] * Basic Metabolic Panel (non-fasting) (03/22/2024 5:06 AM EDT) Glucose Lvl 107 65 - 199 mg/dL [facility] Comment:Diabetes: >=200 mg/d L plus symptoms BUN 18 8 - 18 mg/dL [facility] Creatinine 0.87 0.70 - 1.20 mg/dL [facility] Sodium 138 135 - 145 mmol/L [facility] Potassium 4.1 3.5 - 5.0 mmol/L [facility] Comment: Please note: ??Patients with WBC >100,000 may have falsely elevated Potassium levels. ??For accurate Potassium quantification in these patients send serum separator tube (gold top) for subsequent determinations. ??Contact the Clinical Chemistry Laboratory if there are any questions. Chloride 104 98 - 107 mmol/L [facility] CO2 24 22 - 31 mmol/L [facility] Anion Gap 10 5 - 15 mmol/L [facility] Calcium 9.2 8.5 - 10.5 mg/dL [facility] Estimated GFR 76 >=60 mL/min/1. 73 m?? [facility] Comment: This patient's estimated GFR [...] Hancock MD CHEMISTRY ORDERABLES Performing Organization Address City/[facility]/ZIP Co de Phone Number [facility] [place] [phone] * Magnesium (03/22/2024 5:06 AM EDT) Magnesium 0.90 0.69 - 1.07 mmol/L [facility] Blood 03/22/2024 5:06 AM EDT 03/22/2024 5:12 AM EDT Narrative Resulting Agency Comment Spec In Lab Destin Ambrosio MD CHEMISTRY ORDERABLES Performing Organization Address City/[facility]/ZIP Co de Phone Number [facility] [place] [phone] * (ABNORMAL) Differential, Automated (03/21/2024 2:57 AM EDT) Neutrophils % 63.0 % [facility] Neutr Abs (ANC) 6.70(H) 1.70 - 6.10 x10(3)/mc L [facility] Lymphocytes % 24.9 % [facility] Lymphocytes Abs 2.6 0.9 - 3.2 x10(3)/mc L [facility] Monocytes % 8.7 % [facility] Monocyte Abs 0.9 0.3 - 0.9 x10(3)/mc L [facility] Eosinophils % 2.8 % [facility] Eosinophils Abs 0.3 0.0 - 0.4 x10(3)/mc L [facility] Basophils % 0.3 % [facility] Basophils Abs 0.0 0.0 - 0.1 x10(3)/ L [facility] Immature Gran % 0.30 % [facility] Comment: Immature granulocytes(IG's)percentage and absolute count will include metamyelocytes, myelocytes, and promyelocytes. Blood smears from CBCs yielding IG's will be scanned manually for concordance. If this scan disagrees with the automated IG or if promyelocytes are noted, a manual differential will be performed. Lesia Gran Abs 0.03 0.00 - 0.04 x10(3)/ L [facility] Blood 03/21/2024 2:57 AM EDT 03/21/2024 3:03 AM EDT Narrative Resulting Agency Comment Spec In Lab Horace Hancock MD HEMATOLOGY ORDERABLE S Performing Organization Address City/State/[facility] Co de Phone Number [facility] [place] [address] * (ABNORMAL) Hemogram (03/21/2024 2:57 AM EDT) WBC 10.6(H) 4.0 - 9.5 x10(3)/[facility] LAB[facility] RBC 4.54 4.00 - 5.21 x10(6)/[facility] Hemoglobin 12.8 11.7 - 15.5 g/dL [facility] Hematocrit 38.2 35.7 - 45.8 % [facility] MCV 84.1 82.6 - 94.4 fL [facility] MCH 28.2 27.1 - 32.0 pg [facility] MCHC 33.5 31.7 - 35.0 g/dL [facility] Platelets 242 145 - 357 x10(3)/[facility] RDWSD 42.4 37.0 - 46.0 [facility] RDWCV 13.7 11.5 - 14.1 % [facility] MPV 9.5 7.6 - 12.9 fL [facility] nRBC % Auto 0.0 % [facility] nRBC Abs Auto 0.000 0.000 - 0.000 x10(3)/mcL [facility] Blood 03/21/2024 2:57 AM EDT 03/21/2024 3:03 AM EDT Narrative Resulting Agency Comment Spec In Lab Horace Hancock MD HEMATOLOGY ORDERABLE S [facility] [place] [address] * Basic Metabolic Panel (non-fasting) (03/21/2024 2:57 AM EDT) Glucose Lvl 98 65 - 199 mg/dL [facility] Comment:Diabetes: >=200 mg/d L plus symptoms BUN 15 8 - 18 mg/dL [facility] Creatinine 0.82 0.70 - 1.20 mg/dL [facility] Sodium 144 135 - 145 mmol/L [facility] Potassium 4.2 3.5 - 5.0 mmol/L [facility] Comment: Please note: ??Patients with WBC >100,000 may have falsely elevated Potassium levels. ??For accurate Potassium quantification in these patients send serum separator tube (gold top) for subsequent determinations. ??Contact the Clinical Chemistry Laboratory if there are any questions. Chloride 107 98 - 107 mmol/L [facility] CO2 25 22 - 31 mmol/L [facility] Anion Gap 12 5 - 15 mmol/L [facility] Calcium 9.2 8.5 - 10.5 mg/dL [facility] Estimated GFR 82 >=60 mL/min/1. 73 m?? [facility] Comment: This patient's estimated GFR [...] Hancock MD CHEMISTRY ORDERABLES Performing Organization Address City/[facility]/ZIP Co de Phone Number [facility] [place] [address] * Magnesium (03/21/2024 2:57 AM EDT) Magnesium 0.91 0.69 - 1.07 mmol/L [facility] Blood 03/21/2024 2:57 AM EDT 03/21/2024 3:03 AM EDT Narrative Resulting Agency Comment Spec In Lab Destin Ambrosio MD CHEMISTRY ORDERABLES Performing Organization Address [facility] Co de Phone Number [facility] [place] [address] * Metanephrines, Fractionated Free, plasma (03/21/2024 2:57 AM EDT) Normetane Free 0.47 <0.90 nmol/L [facility] Comment: Test Performed by: [facility] - [address] [address] Drawer Hardware Worker: Chasity Hernandez Ph.D.; CLIA# [id number] Metanephr Free <0.20 <0.50 nmol/L [facility] Comment: ADDITIONAL INFORMATION This test was developed and its performance characteristics determined by [facility] in a manner consistent with CLIA requirements. This test has not been cleared or approved by the U.S. Food and Drug Administration. Test Performed by: [facility] - [facility] [address] [place] [address] Drawer Hardware Worker: Chasity Hernandez Ph.D.; CLIA# [id number] Blood 03/21/2024 2:57 AM EDT 03/21/2024 11:29 AM EDT Narrative Resulting Agency Comment Spec In Lab Horace Hancock MD CHEMISTRY ORDERABLES Performing Organization Address City/[facility]/ZIP Co de Phone Number [facility] [place] [address] * Iron and TIBC (03/20/2024 10:38 AM EDT) Pathologist [facility] Iron 57 30 - 150 mcg/dL [facility] TIBC 278 250 - 450 mcg/dL [facility] Iron Saturation 21 20 - 50 % [facility] Blood Venous Draw / Unknown 03/20/2024 10:38 AM EDT 03/20/2024 10:52 AM EDT Narrative Resulting Agency Comment Spec In Lab Horace Hancock MD CHEMISTRY ORDERABLES Performing Organization Address City/[facility]/ZIP Co de Phone Number [facility] [place] [address] * (ABNORMAL) Differential, Automated (03/20/2024 10:38 AM EDT) [facility] Neutrophils % 73.1 % [facility] Neutr Abs (ANC) 9.60(H) 1.70 - 6.10 x10(3)/mc L [facility] Lymphocytes % 17.3 % [facility] Lymphocytes Abs 2.3 0.9 - 3.2 x10(3)/mc L [facility] Monocytes % 7.5 % [facility] Monocyte Abs 1.0(H) 0.3 - 0.9 x10(3)/mc L [facility] Eosinophils % 1.5 % [facility] Eosinophils Abs 0.2 0.0 - 0.4 x10(3)/[facility] Basophils % 0.3 % [facility] Basophils Abs 0.0 0.0 - 0.1 x10(3)/[facility] Immature Gran % 0.30 % [facility] Comment: Immature granulocytes(IG's)percentage and absolute count will include metamyelocytes, myelocytes, and promyelocytes. Blood smears from CBCs yielding IG's will be scanned manually for concordance. If this scan disagrees with the automated IG or if promyelocytes are noted, a manual differential will be performed. Lesia Gran Abs 0.04 0.00 - 0.04 x10(3)/[facility] Blood 03/20/2024 10:3 8 AM EDT 03/20/2024 10:47 AM EDT Narrative Resulting Agency Comment Spec In Lab Horace Hancock MD HEMATOLOGY ORDERABLE S [facility] [place] [address] * (ABNORMAL) Hemogram (03/20/2024 10:38 AM EDT) WBC 13.2(H) 4.0 - 9.5 x10(3)/[facility] RBC 4.66 4.00 - 5.21 x10(6)/[facility] Hemoglobin 13.0 11.7 - 15.5 g/dL [facility] Hematocrit 38.7 35.7 - 45.8 % [facility] MCV 83.0 82.6 - 94.4 fL [facility] MCH 27.9 27.1 - 32.0 pg [facility] MCHC 33.6 31.7 - 35.0 g/dL [facility] Platelets 238 145 - 357 x10(3)/[facility] RDWSD 41.7 37.0 - 46.0 fL [facility] RDWCV 13.8 11.5 - 14.1 % [facility] MPV 9.8 7.6 - 12.9 fL [facility] nRBC % Auto 0.0 % [facility] nRBC Abs Auto 0.000 0.000 - 0.000 x10(3)/mcL [facility] Blood 03/20/2024 10:3 8 AM EDT 03/20/2024 10:47 AM EDT Narrative Resulting Agency Comment Spec In Lab Horace Hancock MD HEMATOLOGY ORDERABLE S Performing Organization Address City/[facility]/ZIP Co de Phone Number [facility] [place] [address] * Magnesium (03/20/2024 10:38 AM EDT) Magnesium 0.88 0.69 - 1.07 mmol/L [facility] Blood 03/20/2024 10:3 8 AM EDT 03/20/2024 10:47 AM EDT Narrative Resulting Agency Comment Spec In Lab Horace Hancock MD CHEMISTRY ORDERABLES Performing Organization Address City/[facility]/ZIP Co de Phone Number [facility] [place] [address] * Basic Metabolic Panel (non-fasting) (03/20/2024 10:38 AM EDT) Glucose Lvl 108 65 - 199 mg/dL [facility] Comment:Diabetes: >=200 mg/d L plus symptoms BUN 11 8 - 18 mg/dL [facility] Creatinine 0.82 0.70 - 1.20 mg/dL [facility] Sodium 137 135 - 145 mmol/L [facility] Potassium 4.3 3.5 - 5.0 mmol/L [facility] Comment: Please note: ??Patients with WBC >100,000 may have falsely elevated Potassium levels. ??For accurate Potassium quantification in these patients send serum separator tube (gold top) for subsequent determinations. ??Contact the Clinical Chemistry Laboratory if there are any questions. Chloride 101 98 - 107 mmol/L [facility] CO2 22 22 - 31 mmol/L [facility] Anion Gap 14 5 - 15 mmol/L [facility] Calcium 9.0 8.5 - 10.5 mg/dL [facility] Estimated GFR 82 >=60 mL/min/1. 73 m?? [facility] Comment: This patient's estimated GFR [...] Hancock MD CHEMISTRY ORDERABLES Performing Organization Address [facility]/ZIP Co de Phone Number [facility] [place] [address] * Magnesium (03/19/2024 11:01 PM EDT) Magnesium 0.96 0.69 - 1.07 mmol/L [facility] Blood Venous Draw / Unknown 03/19/2024 11:01 PM EDT 03/19/2024 11:06 PM EDT Narrative Resulting Agency Comment Spec In Lab Horace Hancock MD CHEMISTRY ORDERABLES Performing Organization Address City/[facility]/ZIP Co de Phone Number [facility] [place] [address] * (ABNORMAL) Troponin (03/19/2024 11:01 PM EDT) Troponin-T HS 2,406(H) <=14 ng/L [facility] Comment: This patient's troponin T [...] value can be found in the [facility] Laboratory Test Catalog Troponin - [facility] Laboratory Test Catalog Reference: Fourth [place] Definition of Myocardial Infarction. Journal of the [place] [employer] 2018;72:9053-3406 Blood 03/19/2024 11:0 1 PM EDT 03/19/2024 11:05 PM EDT Narrative Resulting Agency Comment Spec In Lab Franky Mead MD CHEMISTRY ORDERABLE S [facility] [place] [address] * (ABNORMAL) Troponin (03/19/2024 8:40 PM EDT) Troponin-T HS 2,586(H) <=14 ng/L [facility] Comment: This patient's troponin T [...] value can be found in the [facility] Laboratory Test Catalog Troponin - [facility] Laboratory Test Catalog Reference: Fourth [place] Definition of Myocardial Infarction. Journal of the [place] [employer] 2018;72:0923-7477 Blood 03/19/2024 8:40 PM EDT 03/19/2024 8:45 PM EDT Narrative Resulting Agency Comment Spec In Lab Ganesh Nguyen MD CHEMISTRY ORDERAB LES [facility] [place] [address] * EKG 12 Lead (03/19/2024 8:32 PM EDT) Ventricular rate 70 BPM MUSE SYSTEM Atrial Rate 70 BPM MUSE SYSTEM P-R Interval 158 ms MUSE SYSTEM QRS Duration 78 ms MUSE SYSTEM Q-T Interval 470 ms MUSE SYSTEM QTC Calculated (Bezet) 507 ms MUSE SYSTEM Calculated P [place] 62 degrees MUSE SYSTEM Calculated R [place] 42 degrees MUSE SYSTEM Calculated T [place] -158 degrees MUSE SYSTEM INTERPRETATION Normal sinus rhythm Poor R wave progression T wave abnormality, consider lateral ischemia Prolonged QT Abnormal ECG When compared with ECG of 19-MAR-2024 17:27, No significant change was found Confirmed by MD Hebert, Destin ([id number]) on 03/23/2024 8:10:58 AM MUSE SYSTEM 03/19/2024 [...] (Bezet) 496 ms MUSE SYSTEM Calculated P [place] 80 degrees MUSE SYSTEM Calculated R [place] 87 degrees MUSE SYSTEM Calculated T [place] -96 degrees MUSE SYSTEM INTERPRETATION Normal sinus rhythm T wave abnormality, consider lateral ischemia Prolonged QT Abnormal ECG When compared with ECG of 19-MAR-2024 02:23, Non-specific change in ST segment in Anterior leads T wave inversion more evident in Inferior leads T wave inversion now evident in Anterolateral leads Confirmed by MD Ambrosio David ([id number]) on 03/23/2024 8:10:45 AM MUSE SYSTEM 03/19/2024 5:27 PM EDT 03/23/2024 8:10 AM EDT Unknown ECG ORDERABLES MUSE SYSTEM * (ABNORMAL) Troponin (03/19/2024 2:45 PM EDT) Pathologist [facility] Troponin-T HS 3,792(H) <=14 ng/L [facility] Comment: This patient's troponin T [...] value can be found in the [facility] Laboratory Test Catalog Troponin - [facility] Laboratory Test Catalog Reference: Fourth [place] Definition of Myocardial Infarction. Journal of the [place] [employer] 2018;72:8015-1023 Blood 03/19/2024 2:45 PM EDT 03/19/2024 2:54 PM EDT Narrative Resulting Agency Comment Spec In Lab Horace Hancock MD CHEMISTRY ORDERABLES [facility] [place] [address] * ECHO COMPLETE W CONTRAST (03/19/2024 10:53 AM EDT) Anatomical Region Laterality Modality Cardiac Other 03/19/2024 9:03 AM EDT Narrative 03/19/2024 12:12 PM [place]T [address] [place] [address] ? Echocardiogram Report Name: ISA RO ?Study Date: 03/19/2024 09:03 AMBP: 129/68 mmHg ? Patient Location: 4A : 1965 ? Height: 158 cm ? Account: [id number] Age: 59 yrs ? Weight: 57 kg Gender: Female ?BSA: 1.6 m2 Ordering Physician: GANESH NGUYEN Referring Physician: GANESH NGUYEN Performed By: PEREZ Carlos Reason For Study: STEMI involving LAD Exam Location: [facility]. Interpretation Summary Normal left ventricle size with mildly reduced LV function. LV ejection fraction 49%. LAD territory wall motion abnormality, predominantly involving the LV apex. No LV thrombus visualized with echo contrast. Normal right ventricle. No significant valvular abnormalities. Compared with prior echo dated 08/28/23, LV function has now decreased and new wall motion abnormalities. Procedure Complete-[id number]. Image enhancement Definity was used for left [...] Procedure Note Destin Ambrosio MD - 03/19/[address] [place] [address] Echocardiogram Report Name: ISA RO Study Date: 409:03 AMBP: 129/68 mmHg Patient Location: : 1965 Height: 158 cm Account: [id number] Age: 59 yrs Weight: 57 kg Gender: Female BSA: 1.6 m2 Ordering Physician: GANESH NGUYEN Referring Physician: GANESH NGUYEN Performed By: PEREZ Carlos Reason For Study: STEMI involving LAD Exam Location: [facility]. Interpretation Summary Normal left ventricle size with mildly reduced LV function. LV ejectionfraction 49%. LAD territory wall motion abnormality, predominantly involving the LVapex. No LV thrombus visualized with echo contrast. Normal right ventricle. No significant valvular abnormalities. Compared with prior echo dated 08/28/23, LV function has now decreased andnew wall motion abnormalities. Procedure Complete-[id number]. Image enhancement Definity was used for left [...] Chest One View (03/19/2024 8:37 AM EDT) [email or web address] Signature WORKSTATION ID [id number] RAD Anatomical Region Laterality Modality Chest N/A [...] who have questions please contact the health direct care staffer that requested your imaging first. ? Narrative [...] patients who have questions please contactthe health direct care staffer that requested your imaging first. Delores Jett MD IMG DX ORDERABLES * Hemoglobin A1c (03/19/2024 5:25 AM EDT) Hemoglobin A1C 5.6 4.3 - 5.6 % [facility] Comment: Reference Range: 4.3 - [...] Mellitus, Diabetes Care 2013; 36: Suppl. 1, Y59-21 Est Avg Gluc 114 mg/dL [facility] Blood Venous Draw / Unknown 03/19/2024 5:25 AM EDT 03/19/2024 3:52 PM EDT Narrative Resulting Agency Comment Spec In Lab Horace Hancock MD CHEMISTRY ORDERABLES [facility] [place] [id number] * (ABNORMAL) Differential, Automated (03/19/2024 5:25 AM EDT) Neutrophils % 90.0 % [facility] Neutr Abs (ANC) 16.73(H) 1.70 - 6.10 x10(3)/ L [facility] Lymphocytes % 5.2 % [facility] Lymphocytes Abs 1.0 0.9 - 3.2 x10(3)/ L [facility] Monocytes % 4.2 % [facility] Monocyte Abs 0.8 0.3 - 0.9 x10(3)/ L [facility] Eosinophils % 0.0 % [facility] Eosinophils Abs 0.0 0.0 - 0.4 x10(3)/[facility] Basophils % 0.2 % [facility] Basophils Abs 0.0 0.0 - 0.1 x10(3)/mc L [facility] Immature Gran % 0.40 % [facility] Comment: Immature granulocytes(IG's)percentage and absolute count will include metamyelocytes, myelocytes, and promyelocytes. Blood smears from CBCs yielding IG's will be scanned manually for concordance. If this scan disagrees with the automated IG or if promyelocytes are noted, a manual differential will be performed. Lesia Gran Abs 0.08(H) 0.00 - 0.04 x10(3)/mc L [facility] Blood 03/19/2024 5:25 AM EDT 03/19/2024 5:34 AM EDT Narrative Resulting Agency Comment Spec In Lab Ganesh Nguyen MD HEMATOLOGY ORDERA BLES Performing Organization Address City/[facility]/ZIP Co de Phone Number [facility] [place] [address] * (ABNORMAL) Hemogram (03/19/2024 5:25 AM EDT) WBC 18.6(H) 4.0 - 9.5 x10(3)/[facility] RBC 4.92 4.00 - 5.21 x10(6)/[facility] Hemoglobin 13.7 11.7 - 15.5 g/dL [facility] Hematocrit 40.6 35.7 - 45.8 % [facility] MCV 82.5(L) 82.6 - 94.4 [facility]ORY MCH 27.8 27.1 - 32.0 pg [facility] MCHC 33.7 31.7 - 35.0 g/dL [facility] Platelets 285 145 - 357 x10(3)/[facility]ORY RDWSD 41.1 37.0 - 46.0 [facility]ORY RDWCV 13.6 11.5 - 14.1 % [facility] MPV 9.5 7.6 - 12.9 [facility] nRBC % Auto 0.0 % [facility] nRBC Abs Auto 0.000 0.000 - 0.000 x10(3)/[facility] LAB[facility]ATORY Blood 03/19/2024 5:25 AM EDT 03/19/2024 5:34 AM EDT Narrative Resulting Agency Comment Spec In Lab Ganesh Nguyen MD HEMATOLOGY ORDERA BLES [facility] [place] [address] * Lipid Panel (Reflex Direct LDL) (03/19/2024 5:25 AM EDT) Chol, Total 324 mg/dL [facility] Comment: Desirable: ? <200 mg/dL Borderline High: 200-239 mg/dL Higher: ?>yw=775 mg/dL Triglycerides 200 mg/dL [facility] Comment: Normal: ?<150 mg/dL Borderline High: 150-199 mg/dL High: ?200-499 mg/dL Very High: ? >np=851 mg/dL HDL 68 mg/dL [facility] Comment: Females: High Risk: <50 mg/dL Males: High Risk: <40 mg/dL LDL Cholesterol 216 mg/dL [facility] Comment: Desirable: ? <100 mg/dL Above Desirable: 100-129 mg/dL Borderline High: 130-159 mg/dL High: ?160-189 mg/dL Very High: ? >px=650 mg/dL Lipid Interpretation See Note [facility] Comment: It is important to [...] individuals with atherosclerotic cardiovascular disease (ASCVD)or LDL >nu=518 mg/dL, use a high-intensity statin (40-80 mg [...] Lab Ganesh Nguyen MD CHEMISTRY ORDERAB LES [facility] [place] [address] * (ABNORMAL) Troponin (03/19/2024 5:25 AM EDT) Troponin-T HS 1,276(H) <=14 ng/L [facility] Comment: This patient's troponin T [...] value can be found in the [facility] Laboratory Test Catalog Troponin - [facility] Test Catalog Reference: Fourth [place] Definition of Myocardial Infarction. Journal of the [place] [employer] 2018;72:6497-0639 Blood 03/19/2024 5:25 AM EDT 03/19/2024 5:34 AM EDT Narrative Resulting Agency Comment Spec In Lab Ganesh Nguyen MD CHEMISTRY ORDERAB LES Performing Organization Address [facility] Co de Phone Number [facility] [place] [address] * APTT (03/19/2024 5:25 AM EDT) PTT 29 25 - 37 sec [facility] Comment: The PTT is NOT appropriate for heparin monitoring. Use the Anti-Xa level for heparin monitoring (HEP UFH) or LMWH monitoring (HEP LMW). A PTT less than 37 seconds generally indicates adequate hemostasis. Blood 03/19/2024 5:25 AM EDT 03/19/2024 5:34 AM EDT Narrative Resulting Agency Comment Spec In Lab Ganesh Nguyen MD HEMATOLOGY ORDERA BLES Performing Organization Address [facility] Co de Phone Number [facility] [place] [address] * Prothrombin Time (03/19/2024 5:25 AM EDT) PT 10.9 9.4 - 12.5 sec [facility] INR 1.0 [facility] Comment: An INR <2.0 [...] Lab Ganesh Nguyen MD HEMATOLOGY ORDERA BLES [facility] [place] [address] * (ABNORMAL) Comprehensive metabolic panel (non-fasting) (03/19/2024 5:25 AM EDT) Glucose Lvl 181 65 - 199 mg/dL [facility] Comment:Diabetes: >=200 mg/d L plus symptoms BUN 14 8 - 18 mg/dL [facility] Creatinine 0.91 0.70 - 1.20 mg/dL [facility] Sodium 137 135 - 145 mmol/L [facility] Potassium 4.2 3.5 - 5.0 mmol/L [facility] Comment: Please note: ??Patients with WBC >100,000 may have falsely elevated Potassium levels. ??For accurate Potassium quantification in these patients send serum separator tube (gold top) for subsequent determinations. ??Contact the Clinical Chemistry Laboratory if there are any questions. Chloride 100 98 - 107 mmol/L [facility] CO2 22 22 - 31 mmol/L [facility] Anion Gap 15 5 - 15 mmol/L [facility] Calcium 8.7 8.5 - 10.5 mg/dL [facility] Total Protein 7.2 6.1 - 8.0 g/dL [facility] Albumin 4.5 3.2 - 5.2 g/dL [facility] AST 95(H) 0 - 30 unit/L [facility] Comment:result rechecked-bz ALT 31(H) 0 - 30 unit/L [facility] Alk Phos 70 35 - 105 unit/L [facility] Total Bilirubin 0.5 0.2 - 1.3 mg/dL [facility] Estimated GFR 72 >=60 mL/min/1. 73 m?? [facility] Comment: This patient's estimated GFR [...] Lab Ganesh Nguyen MD CHEMISTRY ORDERAB LES [facility] [place] [address] * EKG 12 Lead (03/19/2024 2:23 AM EDT) Ventricular rate 67 BPM MUSE SYSTEM Atrial Rate 67 BPM MUSE SYSTEM P-R Interval 152 ms MUSE SYSTEM QRS Duration 78 ms MUSE SYSTEM Q-T Interval 500 ms MUSE SYSTEM QTC Calculated (Bezet) 528 ms MUSE SYSTEM Calculated P [place] 54 degrees MUSE SYSTEM Calculated R [place] 56 degrees MUSE SYSTEM Calculated T [place] 31 degrees MUSE SYSTEM INTERPRETATION Normal sinus rhythm Prolonged QT Abnormal ECG No previous ECGs available Confirmed by MD Ambrosio David ([id number]) on 03/23/2024 8:10:32 AM MUSE SYSTEM 03/19/2024 2:23 AM EDT 03/23/2024 8:10 AM EDT Ganesh Nguyen MD ECG ORDERABLES MUSE SYSTEM * (ABNORMAL) Differential, Automated (03/19/2024 2:20 AM EDT) Neutrophils % 89.8 % [facility] Neutr Abs (ANC) 15.44(H) 1.70 - 6.10 x10(3)/[facility] LABOR[facility] Lymphocytes % 6.4 % [facility] Lymphocytes Abs 1.1 0.9 - 3.2 x10(3)/[facility] Monocytes % 2.9 % [facility] Monocyte Abs 0.5 0.3 - 0.9 x10(3)/[facility] Eosinophils % 0.1 % [facility] Eosinophils Abs 0.0 0.0 - 0.4 x10(3)/[facility] Basophils % 0.3 % [facility] Basophils Abs 0.0 0.0 - 0.1 x10(3)/[facility] Immature Gran % 0.50 % [facility] Comment: Immature granulocytes(IG's)percentage and absolute count will include metamyelocytes, myelocytes, and promyelocytes. Blood smears from CBCs yielding IG's will be scanned manually for concordance. If this scan disagrees with the automated IG or if promyelocytes are noted, a manual differential will be performed. Lesia Gran Abs 0.08(H) 0.00 - 0.04 x10(3)/ L [facility] Blood 03/19/2024 2:20 AM EDT 03/19/2024 2:59 AM EDT Narrative Resulting Agency Comment Spec In Lab Ganesh Nguyen MD HEMATOLOGY ORDERA BLES [facility] [place] [address] * (ABNORMAL) Hemogram (03/19/2024 2:20 AM EDT) Pathologist [facility] WBC 17.2(H) 4.0 - 9.5 x10(3)/[facility] LABORATORY RBC 4.70 4.00 - 5.21 x10(6)/[facility] Hemoglobin 13.3 11.7 - 15.5 g/dL [facility] Hematocrit 38.7 35.7 - 45.8 % [facility] MCV 82.3(L) 82.6 - 94.4 fL [facility] MCH 28.3 27.1 - 32.0 pg [facility] MCHC 34.4 31.7 - 35.0 g/dL [facility] Platelets 281 145 - 357 x10(3)/[facility] LABORATORY RDWSD 41.0 37.0 - 46.0 [facility] LABORATORY RDWCV 13.7 11.5 - 14.1 % [facility] MPV 9.7 7.6 - 12.9 [facility]ORY nRBC % Auto 0.0 % [facility] nRBC Abs Auto 0.000 0.000 - 0.000 x10(3)/[facility] Blood 03/19/2024 2:20 AM EDT 03/19/2024 2:59 AM EDT Narrative Resulting Agency Comment Spec In Lab Ganesh Nguyen MD HEMATOLOGY ORDERA BLES [facility] [place] [address] * (ABNORMAL) Troponin (03/19/2024 2:20 AM EDT) [facility] Troponin-T HS 960(H) <=14 ng/L [facility] Comment: This patient's troponin T [...] value can be found in the [facility] Laboratory Test Catalog Troponin - [facility] Laboratory Test Catalog Reference: Fourth [place] Definition of Myocardial Infarction. Journal of the [employer] 2018;72:6140-1407 Blood 03/19/2024 2:20 AM EDT 03/19/2024 2:59 AM EDT Narrative Resulting Agency Comment Spec In Lab Ganesh Nguyen MD CHEMISTRY ORDERAB LES Performing Organization Address City/[facility]/ZIP Co de Phone Number [facility] [place] [address] * (ABNORMAL) APTT (03/19/2024 2:20 AM EDT) PTT 123(Criti lewis) 25 - 37 sec [facility] Comment: Critical Result called by [...] Lab Ganesh Nguyen MD HEMATOLOGY ORDERA BLES [facility] [place] [address] * Prothrombin Time (03/19/2024 2:20 AM EDT) Pathologist [facility] PT 11.7 9.4 - 12.5 sec [facility] INR 1.0 [facility] Comment: An INR <2.0 [...] MD HEMATOLOGY ORDERA BLES Performing Organization Address [facility] de Phone Number [facility] [place] [address] * (ABNORMAL) Hepatic Function Panel (03/19/2024 2:20 AM EDT) Pathologist [facility] Total Protein 6.7 6.1 - 8.0 g/dL [facility] Albumin 4.3 3.2 - 5.2 g/dL [facility] AST 49(H) 0 - 30 unit/L [facility] ALT 26 0 - 30 unit/L [facility] Alk Phos 67 35 - 105 unit/L [facility] Total Bilirubin 0.4 0.2 - 1.3 mg/dL [facility] Bili, Direct 0.1 0.0 - 0.3 mg/dL [facility] Blood 03/19/2024 2:20 AM EDT 03/19/2024 2:59 AM EDT Narrative Resulting Agency Comment Spec In Lab Ganesh Nguyen MD CHEMISTRY ORDERAB LES [facility] [place] [address] * (ABNORMAL) pro-Brain Natriuretic Peptide (03/19/2024 2:20 AM EDT) ProBNP 529(H) <=124 pg/mL [facility] Blood 03/19/2024 2:20 AM EDT 03/19/2024 2:59 AM EDT Narrative Resulting Agency Comment Spec In Lab Ganesh Nguyen MD CHEMISTRY ORDERAB LES Performing Organization Address [facility] Co de Phone Number [facility] [place] [address] * Phosphorus (03/19/2024 2:20 AM EDT) Phosphorus 3.8 2.5 - 4.5 mg/dL [facility] Blood 03/19/2024 2:20 AM EDT 03/19/2024 2:59 AM EDT Narrative Resulting Agency Comment Spec In Lab Ganesh Nguyen MD CHEMISTRY ORDERAB LES Performing Organization Address City/[facility] Co de Phone Number [facility] [place] [address] * Magnesium (03/19/2024 2:20 AM EDT) Magnesium 0.71 0.69 - 1.07 mmol/L [facility] Blood 03/19/2024 2:20 AM EDT 03/19/2024 2:59 AM EDT Narrative Resulting Agency Comment Spec In Lab Ganesh Nguyen MD CHEMISTRY ORDERAB LES Performing Organization Address [facility] Co de Phone Number [facility] [place] [address] * (ABNORMAL) Basic Metabolic Panel (non-fasting) (03/19/2024 2:20 AM EDT) Glucose Lvl 160 65 - 199 mg/dL [facility] Comment:Diabetes: >=200 mg/d L plus symptoms BUN 14 8 - 18 mg/dL [facility] Creatinine 0.88 0.70 - 1.20 mg/dL [facility] Sodium 137 135 - 145 mmol/L [facility] Potassium 3.9 3.5 - 5.0 mmol/L [facility] Comment: Please note: ??Patients with WBC >100,000 may have falsely elevated Potassium levels. ??For accurate Potassium quantification in these patients send serum separator tube (gold top) for subsequent determinations. ??Contact the Clinical Chemistry Laboratory if there are any questions. Chloride 100 98 - 107 mmol/L [facility] CO2 20(L) 22 - 31 mmol/L [facility] Anion Gap 17(H) 5 - 15 mmol/L [facility] Calcium 8.2(L) 8.5 - 10.5 mg/dL [facility] Estimated GFR 75 >=60 mL/min/1. 73 m?? [facility] Comment: This patient's estimated GFR [...] Lab Ganesh Nguyen MD CHEMISTRY ORDERAB LES [facility] [place] [address] * (ABNORMAL) Point of Care Blood Gas Historical (03/19/2024 1:41 AM EDT) POC pH 7.28(Criti lewis) 7.35 - 7.45 [facility] PCO2 40 35 - 45 mmHg [facility] PO2 84(L) 85 - 104 mmHg [facility] Base Excess -8.0(L) -3.0 - 3.0 mmol/L [facility] HCO3 18.6(L) 20.0 - 26.0 mmol/L [facility] TCO2 20(L) 22 - 31 mmol/L [facility] Sodium 134(L) 135 - 145 mmol/L [facility] Potassium 3.4(L) 3.5 - 5.0 mmol/L [facility] Ionized Ca 1.09(L) 1.15 - 1.33 mmol/L [facility] Hematocrit 38.0 34.0 - 45.0 % [facility] Calc Hgb 12.9 11.2 - 15.7 g/dL [facility] Blood 03/19/2024 1:41 AM EDT 03/19/2024 1:41 AM EDT Ktahryn Walker MD CHEMISTRY ORDERABL ES Performing Organization Address City/State/[facility] Co de Phone Number [facility] [place] [address] * CARDIAC CATHETERIZATION (03/19/2024 1:36 AM EDT) Anatomical Region Laterality Modality Other Narrative 03/19/2024 7:19 AM EDT ?[facility] ? Cardiac Catheterization/Intervention Report ? Patient Name: Warnaar, Isa A. ? Procedure Date: 03/19/2024 ? A #: [id number] ? Primary Physician: Ramo Roy ? Case #: [id number] ? File Name: [id number] ? Catheterization Order Number: [id number] ? [facility] ? Final Report [place], [place] ? Patient Name: ? Isa A. Warnaar ? ID#: ?[id number] ? : ?1965 ? Procedure Date: ? March 19, 2024 ? Case #: ? [id number] ? Room: ? 6 ? Case Physician: [...] was ?designated as ASA Class IV. The [facility] clinical frailty scale is 3: ?Managing [...] procedure was Emergent. The indication for ?the laboratory animal facility supervisor visit is ACS less than or equal [...] ?3.5 guiding catheter and a 3.5 Fr [place] 20 Mhz using auto 1 ?mm/sec pullback. [...] ? A premounted 3.00 x 08 mm [place] (JAHAIRA) was deployed ? with a maximum inflation pressure of 12 atmospheres. ? Another stent insertion was accomplished through a 6 Fr. EBU ? 3.5 guide. ??A premounted 2.00 x 08 mm [place] (JAHAIRA) was ? deployed. ? The final [...] dose administered prior to arrival in the laboratory animal facility supervisor. ?Recommended anti-platelet/anti-thrombotic regimen: ?Start aspirin 81 mg daily now and continue for indefinitely. ?Start clopidogrel 75 mg daily now and continue for 12 months then stop. ?These recommendations are made at the time of the intervention. Patient ?and provider preferences or a changing clinical situation may require ?modification of this regimen. Consult [facility] Interventional Cardiology for ?questions. ?The 1 year [...] against any medical treatment. Consult ?http://tools.acc.org/DAPTriskapp/#!/content/calculator/ or [facility] ?Interventional Cardiology for questions ? Conclusions: ?* [...] Procedure Note Ramo Roy MD - 03/21/2024 [facility] Cardiac Catheterization/Intervention Report Patient Name: Isa Ro Procedure Date: 03/19/2024 A #: [id number] Primary Physician: Ramo Roy Case #: [id number] File Name: [id number] Catheterization Order Number: [id number] [facility] FinalReport [place], [place] Patient Name: Isa Ro ID#:[id number] :1965 Procedure Date: March 19, 2024 Case [...] patientwas designated as ASA Class IV. The [facility] clinical frailty scale is 3: Managing Well. Diagnostic Tests: Prior Coronary Angiography: Prior coronary angiography was performed on 12/15/2014. Electrocardiography: EKG was assessed by ECG. EKG was Abnormal. EKG showed STDeviation >= 0.5 mm and other abnormality. Medications Prior to Procedure: Aspirin. Indications for Diagnostic Cath: The priority of the diagnostic procedure was Emergent. Theindication for the laboratory animal facility supervisor visit is ACS less than or equal [...] 3.5 guiding catheter and a 3.5 Fr [place] 20 Mhz usingauto 1 mm/sec pullback. Imaging [...] The lesion was predilated with a 2.50mm [id number] MM balloon with a maximum inflation pressure of 14atmospheres. A premounted 3.00 x 08 mm [place] (JAHAIRA) wasdeployed with a maximum inflation pressure of 12 atmospheres. Another stent insertion was accomplished through a 6 Fr.EBU 3.5 guide. A premounted 2.00 x 08 mm [place] (JAHAIRA)was deployed. The final outcome was defined [...] dose administered prior to arrival in the laboratory animal facility supervisor. Recommended anti-platelet/anti-thrombotic regimen: Start aspirin 81 mg daily now and continue for indefinitely. Start clopidogrel 75 mg daily now and continue for 12 months thenstop. These recommendations are made at the time of the intervention.Patient and provider preferences or a changing clinical situation mayrequire modification of this regimen. Consult [facility] Interventional Cardiologyfor questions. The 1 year bleeding [...] or against any medical treatment.Consult http://tools.acc.org/DAPTriskapp/#!/content/calculator/ or [facility] Interventional Cardiology for questions Conclusions: * One [...] POC pH 7.20(Criti lewis) 7.35 - 7.45 [facility] POC PCO2 38 35 - 45 mmHg [facility] POC PO2 74(L) 85 - 104 mmHg [facility] POC Base Excess -14.0(L) -3.0 - 3.0 mmol/L [facility] POC HCO3 14.5(L) 20.0 - 26.0 mmol/L [facility] POC TCO2 16(L) 22 - 31 mmol/L [facility] POC Sodium 116(Critic al) 135 - 145 mmol/L [facility] POC Potassium 3.1(L) 3.5 - 5.0 mmol/L [facility] POC Ionized Ca 1.04(L) 1.15 - 1.33 mmol/L [facility] POC Hematocrit 39.0 34.0 - 45.0 % [facility] POC Calc Hgb 13.3 11.2 - 15.7 g/dL [facility] Blood 03/19/2024 1:26 AM EDT 03/19/2024 1:26 AM EDT Kathryn Walker MD CHEMISTRY ORDERABL ES Performing Organization Address City/State/[facility] Co de Phone Number [facility] [place] [address] documented in this encounter Visit Diagnoses Not [...] Routine documented in this encounter Care Teams Branch Employment Coordinator Relationship Specialty Start Date End Date None None PCP - General 03/19/24 documented as of this encounter
--- OUTSIDE RECORDS SUMMARY | 2024-04-08 10:56 | XMS_ITS | Encounter Summary ---
Author Organization [facility] [place] [address] Care Team Providers Care It Security Consultant Name Role Phone Pretty Avery MD Primary Care Provider [phone] Reason for Visit * Reason Comments Skin Check hx of SCC Encounter Details Date Type Department Care Team (Late st Contact Info) Description 01/14/2019 1:30 PM EDT Office Visit Dermatology at [facility] [address] [place] [address] Patrizia Moralez MD [facility] [place] [address] Multiple benign nevi; Lentigines; Seborrheic keratosis; History [...] History: Left lower back, sBCC, ED&C on 39-06-25-[facility] Seborrheic keratoses Family History: Melanoma: None Father [...] by: Patrizia Moralez MD Resident in Dermatology [facility] Patient seen and evaluated with staff financial specialist: Lisa Candelario MD Section of Dermatology [facility] * Lisa Candelario MD - 01/14/2019 1:30 [...] 10:40 AM EDT Office Visit Cardiology at [address] [place] [address] Herlinda Weaver PA [facility] [place] [address] documented as of this encounter Visit Diagnoses Diagnosis Multiple benign nevi Benign neoplasm of skin, site unspecified Lentigines Other dyschromia Seborrheic keratosis Other seborrheic keratosis History of basal cell cancer Personal history of other malignant neoplasm of skin Garcia angioma Nevus, non-neoplastic Skin cancer screening Screening for malignant neoplasm of the skin Arthropod bite, initial encounter documented in this encounter Care Teams It Security Consultant Relationship Specialty Start Date End Date Pretty Avery MD [address] [place] [id number] PCP - General 08/06/10 03/18/24 documented as of this encounter
--- OUTSIDE RECORDS SUMMARY | 2024-04-08 10:56 | XMS_ITS | Encounter Summary ---
[facility] [place] [address] Care Team Providers Care Actuarial Clerk Name Role Phone None Primary Care Provider Unavailabl e Encounter Details Date Type Department Care Team (Late st Contact Info) Description 03/18/2024 Telephone Cardiology at [address] [address] Yusuf Herrera MD [facility] [place] [address] Social History Tobacco Use Types Packs/Day Years Used Date Smoking Tobacco: Former Smokeless Tobacco: Never [facility] Inpatient Questions Answer Date Recorded Does Anyone [...] 03/19/24 Initial Contact Time: 2209 Patient Location: [facility] Presenting Symptoms per OSH: 59 year old female, history of CAD c/b NSTEMI (see below), hypertension, hyperlipidemia, who was resting at home at 20:30 when she developed substernal chest pressure radiating to right arm which wasvery severe and reminiscent of prior IA. Associated with diaphoresis. No syncope, SOB, palpitations, [...] relief, but was still having CP. 03/30/14 [facility] Left main: Free of angiographically significant disease. [...] mg and starting heparin gtt -Launch to [facility] cytology laboratory manager for lateral wall STEMI Above recommendations/plans are based on my conversation with the referring provider. I have not personally interviewed or examined this patient. Yusuf Herrera MD Medical Associate documented in this encounter Plan of Treatment Upcoming Encounters Date Type Department Care Team (Late st Contact Info) Description 05/09/2024 10:40 AM EDT Office Visit Cardiology at [address] [place] [address] Herlinda Weaver PA [facility] [place] [address] documented as of this encounter Visit Diagnoses Not on filedocumented in this encounter Care Teams Actuarial Clerk Relationship Specialty Start Date End Date None None PCP - General 03/19/24 documented as of this encounter
--- OUTSIDE RECORDS SUMMARY | 2024-04-08 10:56 | XMS_ITS | Encounter Summary ---
Author Organization [facility] [place] [address] Care Team Providers Care Turret Lathe Operator Name Role Phone None Primary Care Provider Unavailabl e Reason for Referral * Consultation (Routine) - Authorized Specialty Diagnoses / Procedures Referred By Contac t Referred To Contact Cardiology Diagnoses ST elevation myocardial infarction involving left anterior descending (LAD) coronary artery Kathryn Walker MD [facility] [place] [address] [facility] [address] [place] [address] Referral ID Status Reason Start Date Expiration Date Visits Requested Visits Authorized [id number] Authorized Consult, Test & Treat 03/22/2024 09/18/2024 1 1 * Consultation (Routine) - Authorized Specialty Diagnoses / Procedures Referred By Contac t Referred To Contact Cardiology Diagnoses ST elevation myocardial infarction involving left anterior descending (LAD) coronary artery Horace Hancock MD [facility] [place] [address] Cardiac Rehab, [address] [place] [address] Referral ID Status Reason Start Date Expiration Date Visits Requested Visits Authorized [id number] Authorized Consult, Test & Treat 03/22/2024 09/18/2024 36 36 Reason for Visit * Auth/Cert (Routine) Specialty Diagnoses / Procedures Referred By Contac t Referred To Contact Diagnoses Acute ST elevation myocardial infarction (STEMI) due to occlusion of left anterior descending (LAD) coronary artery stemi Procedures EMERGENCY IPI Destin Ambrosio MD [facility] [place] [address] [facility] Referral ID Status Reason Start Date Expiration Date Visits Re quested Visits Authorized [id number] 1 1 Encounter Details Date Type Department Care Team (Latest Contact Info) Description 03/19/2024 12:37 AM EDT - 03/22/2024 12:10 PM EDT Hospital Encounter Heart and Vascular Unit Level 4 Wing A at [place] [phone] Destin Ambrosio MD [facility] [place] [address] Horace Hancock MD [facility] [place] [address] Kathryn Walker MD [facility] [place] [address] ST elevation myocardial infarction involving left anterior descending (LAD) coronary artery; Chest pain, unspecified type Discharge Disposition: Home Social History Tobacco Use Types Packs/Day Years Used Date Smoking Tobacco: Former Smokeless Tobacco: Never Alcohol Use Standard Drinks/Week Comments Yes 14 (1 standard drink = 0.6 oz pu re alcohol) [facility] Utilities Answer Date Recorded In the past 12 months has [facility] [employer], gas, oil, or water [employer] threatened to shut off services in your [...] any time in the past 12 [facility], were you homeless or living in a [place] health care facility (including now)? No 03/21/2024 DH IPV Inpatient [...] Isa Ro Patient Age: 59 y.o. Language: Azerbaijani Race: White Ethnicity: Not nor Admit date: [...] hypoxemic and hypercapnic respiratory failure in the lab animal technician, potentially also due to sedation. Patient briefly [...] given mildly reduced LVEF [ ] f/u [facility] [place]. [facility] cardiology referral sent Inpatient Provider Contact Information: Kathryn Walker MD [phone] For questions regarding this document or issues relating to this hospitalization on the Medical Service, please contact your inpatient physician through the [facility] Post Splitter . Issues afterhours and on weekends will [...] 03/19/2024 8:37 AM) Result Value WORKSTATION ID [id number] Narrative EXAMINATION: XR CHEST ONE VIEW CLINICAL [...] who have questions please contact the health tire care manager that requested your imaging first. Cardiac Catheterization (Exam End: 03/19/2024 1:36 AM) Narrative [facility] Cardiac Catheterization/Intervention Report Patient Name: Isa Ro Procedure Date: 03/19/2024 A #: [id number] Primary Physician: Ramo Roy Case #: [id number] File Name: [id number] Catheterization Order Number: [id number] [facility] Blanching Machine Operator [facility] Final Report [place], [place] Patient Name: Isa Ro ID#: [id number] : 1965 Procedure Date: March 19, 2024 [...] was designated as ASA Class IV. The [facility] clinical frailty scale is 3: Managing Well. Diagnostic Tests: Prior Coronary Angiography: Prior coronary angiography was performed on 12/15/2014. Electrocardiography: EKG was assessed by ECG. EKG was Abnormal. EKG showed ST Deviation >= 0.5 mm and other abnormality. Medications Prior to Procedure: Aspirin. Indications for Diagnostic Cath: The priority of the diagnostic procedure was Emergent. The indication for the lab animal technician visit is ACS less than or equal [...] 3.5 guiding catheter and a 3.5 Fr [place] 20 Mhz using auto 1 mm/sec pullback. [...] priority for the procedure was Emergent. The [facility] indication for the procedure [...] A premounted 3.00 x 08 mm Alberto Axtell (JAHAIRA) was deployed with a maximum inflation pressure of 12 atmospheres. Another stent insertion was accomplished through a 6 Fr. EBU 3.5 guide. A premounted 2.00 x 08 mm [place] Axtell (JAHAIRA) was deployed. The final outcome was [...] dose administered prior to arrival in the lab animal technician. Recommended anti-platelet/anti-thrombotic regimen: Start aspirin 81 mg daily now and continue for indefinitely. Start clopidogrel 75 mg daily now and continue for 12 months then stop. These recommendations are made at the time of the intervention. Patient and provider preferences or a changing clinical situation may require modification of this regimen. Consult [facility] Interventional Cardiology for questions. [...] against any medical treatment. Consult http://tools.acc.org/DAPTriskapp/#!/content/calculator/ or [facility] Interventional Cardiology for questions [...] decreased and new wall motion abnormalities. Procedure Complete-50936. Image enhancement Definity was used for left [...] prior to speaking with Dr. Herrera, on-call smooth stucco resurfacer at [facility]. She was subsequently transferred directly to the [facility] lab animal technician where coronary angiography revealed a 100% occluded [...] away. Stay on the phone. The emergency water taxi ferry operator will tell you what to do. [...] of 8AM-5PM please call the Cardiology Clinic [phone] to speak with a nurse. All other hours please call the Hospital Post Splitter [phone] and ask to speak to the cardiovascular hospitalist on-call. Return to work: One week Follow up Appointments: Doctor Where Phone # Date Time PCP MELECIO Polanco [address] [place], [place] [address] 04/04/24 7:55 AM Clinic Coordinator Herlinda Weaver PA-C [facility] Cardiology Clinic [phone] 05/09/24 10:40 AM (pleasearrive by 10:20 AM) *A referral has also been placed to [facility] cardiology, though you will need to follow-up with them regarding scheduling appointments at [phone] General Instructions None Future Appointments and Orders Future Appointments and Orders Future Appointments Provider Department Dept Phone 05/09/2024 10:40 AM Herlinda Weaver PA Cardiology at [facility] Arrive at: [place] [employer] [phone] Future Orders Complete By Expires Referral to Cardiac Rehab [[id number] Custom] As directed Process Instructions: If no progress note charted, please enter Clinical details in comments. Scheduling Instructions: Questions: My question or request is: s/p STEMI- cardiac rehab at [facility] Referral to Cardiology [REF12 Custom] As directed Process Instructions: If no progress note charted, please enter Clinical details in comments. Scheduling Instructions: Questions: My question or request is: s/p STEMI Discharge References/Attachments None Greater than 30 minutes was spent on this discharge including documentation, [id number] time withthe patient, patient education, traffic recorder, coordination with pharmacy and other patient care. [...] away. Stay on the phone. The emergency water taxi ferry operator will tell you what to do. [...] cardiac rehab has also been placed to [facility]. Call your doctor if: Chest pain, dyspnea, pain or swelling in legs occurs, or for weight gain of 2 pounds overnight or 5pounds in 5 days. If you have non-emergent questions, prior to your follow-up visit call: Thursday-Thursday between the hours of 8AM-5PM please call the Cardiology Clinic [phone] to speak with a nurse. All other hours please call the Hospital Post Splitter [phone] and ask to speak to the cardiovascular hospitalist on-call. Return to work: One week Follow up Appointments: Doctor Where Phone # Date Time PCP MELECIO Polanco [address] [place], [place] [address] 04/04/24 7:55 AM Clinic Coordinator Herlinda Weaver PA-C [facility] Cardiology 4A Clinic [phone] 05/09/24 10:40 AM (pleasearrive by 10:20 AM) *A referral has also been placed to [facility] cardiology, though you will need to follow-up with them regarding scheduling appointments at [phone] documented in this encounter Medications at Time [...] agreed to participate in cardiac rehab at [facility] following discharge Review of Systems: [...] to have resulted in hypoxemia in the lab animal technician. She was also a bit hypercapnic which [...] pt re: Losartan/GDMT consideration -Cardiac Rehab at [facility] following discharge -Telemonitoring x72 hours -Plan for discharge tomorrow -Cardiology appointment scheduled 05/09/2024 at 10:40 AM t [facility] #Significant HLD -LDL 324 [...] to have resulted in hypoxemia in the lab animal technician. She was also a bit hypercapnic which [...] 03/19/2024 8:20 PM EDTSummary: Chest Pain Patient stock and station agent light c/o chest pain 11/21. I asked [...] Mcbride MD - 03/19/2024 2:50 AM EDT [facility] TeleICU Initial Assessment Note I established audio/visual communication with the patient's room, reviewed the eDH. History and Assessment: 59 yo F transferred from [facility] for a STEMI alert. Received ASA [...] => BiPAP started Following procedure, transferred to [facility] - able to be weaned to [place] [...] to which patient presented: [facility] If Hospital to which patient presented= [facility]: ED via EMS Date [...] Not contraindicated Plan STEMI Alert called: Yes Blanching Machine Operator Activated by: Teacher Associate Initial Disposition: Admit Blanching Machine Operator documented in this encounter H&P Notes * [...] prior to speaking with Dr. Herrera, on-call smooth stucco resurfacer at [facility]. She was subsequently transferred directly to the [facility] lab animal technician where coronary angiography revealed a 100% occluded [...] to have resulted in hypoxemia in the lab animal technician. She was also a bit hypercapnic which [...] Cardiopulmonary Resuscitation - Inpatient Ganesh Nguyen MD Teacher Associate [id number] documented in this encounter Miscellaneous Notes [...] Care: Contact information for follow-up Cardiac Rehab, [facility] [address] [facility] [address] Cardiology, [facility] [address] [facility] [address] Transportation: family or friend will provide Functional [...] 03/21/2024 4:02 PM EDT Patient completed a [place] advance directive. Patient identified her sister Stacia [...] N/A ; Prescription Coverage: Yes Preferred Pharmacy: [place], [place] - [address] [place] [address] [address] [place] [address] [address] [facility] [address] [id number] - [address] [place] [address] [facility] - [facility], [place] - [address] [facility] [address] [facility] [address] Advance Care Planning: Attempt Cardiopulmonary Resuscitation - Inpatient <no information> -Advanced Directive: No, need to discuss (RS referral sent for AD discussion) Current Functional Ability: Assistive Person Functional Status Prior to Admission: Independent Home Environment: Others in the home: child(lucian), minor (lives with her 15yo son). Current Living Arrangements: home/apartment/condo. Accessibility Concerns:house with 3 floors and 2 [address]. Current DME: none [address] [facility] [address] Social & Family Supports: All names listed below confirmed with patient as current and correct Extended Emergency Contact Information Primary Emergency Contact: Tiffany Ro, [facility] Relation: Mother Current Care Provided by: [...] RS for AD discussion today. Registered Nurse Chief Warden / Meter Maintenance Person will continue to follow patient???s progress and [...] in an outpatient cardiac rehabilitation program at [facility] was discussed. Patient agrees to [...] Operative Note Patient Name: Isa Ro : [id number] MR#: [id number] Case Date: 03/19/2024 Surgeon: Surgeons and Role: [...] AM EDT Office Visit Cardiology at [address] [address] Herlinda Weaver [place] [address] Scheduled Referrals Name Type Priority Associated Diagnoses [...] 5:06 AM EDT) Neutrophils % 71.6 % [facility] Neutr Abs (ANC) 8.34(H) 1.70 - 6.10 x10(3)/ L [facility] Lymphocytes % 17.4 % [facility] Lymphocytes Abs 2.0 0.9 - 3.2 x10(3)/[facility] Monocytes % 8.2 % [facility] Monocyte Abs 1.0(H) 0.3 - 0.9 x10(3)/[facility] Eosinophils % 2.2 % [facility] Eosinophils Abs 0.3 0.0 - 0.4 x10(3)/[facility] Basophils % 0.3 % [facility] Basophils Abs 0.0 0.0 - 0.1 x10(3)/[facility] Immature Gran % 0.30 % [facility] Comment: Immature granulocytes(IG's)percentage and absolute count will include metamyelocytes, myelocytes, and promyelocytes. Blood smears from CBCs yielding IG's will be scanned manually for concordance. If this scan disagrees with the automated IG or if promyelocytes are noted, a manual differential will be performed. Lesia Gran Abs 0.03 0.00 - 0.04 x10(3)/ L [facility] Blood 03/22/2024 5:06 AM EDT 03/22/2024 5:12 AM EDT Narrative Resulting Agency Comment Spec In Lab Horace Hancock MD HEMATOLOGY ORDERABLE S [facility] [place] [address] * (ABNORMAL) Hemogram (03/22/2024 5:06 AM EDT) Pathologist [facility] WBC 11.6(H) 4.0 - 9.5 x10(3)/[facility] RBC 4.80 4.00 - 5.21 x10(6)/[facility] Hemoglobin 13.5 11.7 - 15.5 g/dL [facility] Hematocrit 40.3 35.7 - 45.8 % [facility] MCV 84.0 82.6 - 94.4 [facility] MCH 28.1 27.1 - 32.0 pg [facility] MCHC 33.5 31.7 - 35.0 g/dL [facility] Platelets 232 145 - 357 x10(3)/[facility] RDWSD 42.2 37.0 - 46.0 [facility] RDWCV 13.5 11.5 - 14.1 % [facility] MPV 9.7 7.6 - 12.9 [facility] nRBC % Auto 0.0 % [facility] nRBC Abs Auto 0.000 0.000 - 0.000 x10(3)/[facility] Blood 03/22/2024 5:06 AM EDT 03/22/2024 5:12 AM EDT Narrative Resulting Agency Comment Spec In Lab Horace Hancock MD HEMATOLOGY ORDERABLE S [facility] [place] [place] [address] * Basic Metabolic Panel (non-fasting) (03/22/2024 5:06 AM EDT) [facility] Glucose Lvl 107 65 - 199 mg/dL [...] Hancock MD CHEMISTRY ORDERABLES [facility] [place] [place] [address] * Magnesium (03/22/2024 5:06 AM EDT) Magnesium 0.90 0.69 - 1.07 mmol/L [facility] Blood 03/22/2024 5:06 AM EDT 03/22/2024 5:12 AM EDT Narrative Resulting Agency Comment Spec In Lab Destin Ambrosio [place] [address] * (ABNORMAL) Differential, Automated (03/21/2024 2:57 AM EDT) Neutrophils % 63.0 % [facility] Neutr Abs (ANC) 6.70(H) 1.70 - 6.10 x10(3)/ L [facility] Lymphocytes % 24.9 % [facility] Lymphocytes Abs 2.6 0.9 - 3.2 x10(3)/[facility] Monocytes % 8.7 % [facility] Monocyte Abs 0.9 0.3 - 0.9 x10(3)/[facility] Eosinophils % 2.8 % [facility] Eosinophils Abs 0.3 0.0 - 0.4 x10(3)/[facility] Basophils % 0.3 % [facility] Basophils Abs 0.0 0.0 - 0.1 x10(3)/[facility] Immature Gran % 0.30 % [facility] Comment: Immature granulocytes(IG's)percentage and absolute count will include metamyelocytes, myelocytes, and promyelocytes. Blood smears from CBCs yielding IG's will be scanned manually for concordance. If this scan disagrees with the automated IG or if promyelocytes are noted, a manual differential will be performed. Lesia Gran Abs 0.03 0.00 - 0.04 x10(3)/[facility] Blood 03/21/2024 2:57 AM EDT 03/21/2024 3:03 AM EDT Narrative Resulting Agency Comment Spec In Lab Horace Hancock MD [place] [address] * (ABNORMAL) Hemogram (03/21/2024 2:57 AM EDT) WBC 10.6(H) 4.0 - 9.5 x10(3)/[facility] RBC 4.54 4.00 - 5.21 x10(6)/[facility] Hemoglobin 12.8 11.7 - 15.5 g/dL [facility] Hematocrit 38.2 35.7 - 45.8 % [facility] MCV 84.1 82.6 - 94.4 [facility] MCH 28.2 27.1 - 32.0 pg [facility] MCHC 33.5 31.7 - 35.0 g/dL [facility] Platelets 242 145 - 357 x10(3)/[facility] RDWSD 42.4 37.0 - 46.0 [facility] RDWCV 13.7 11.5 - 14.1 % [facility] MPV 9.5 7.6 - 12.9 [facility] nRBC % Auto 0.0 % [facility] nRBC Abs Auto 0.000 0.000 - 0.000 x10(3)/[facility] Blood 03/21/2024 2:57 AM EDT 03/21/2024 3:03 AM EDT Narrative Resulting Agency Comment Spec In Lab Horace Hancock MD HEMATOLOGY ORDERABLE S [facility] [address] [place] [address] * Basic Metabolic Panel (non-fasting) (03/21/2024 2:57 AM EDT) Pathologist [facility] Glucose Lvl 98 65 - 199 mg/dL [facility] Comment:Diabetes: >=200 mg/d L plus symptoms BUN 15 8 - 18 mg/dL [facility] Creatinine 0.82 0.70 - 1.20 mg/dL [facility] Sodium 144 135 - 145 mmol/L [facility] Potassium 4.2 3.5 - 5.0 mmol/L [facility] Comment: Please note: ??Patients with WBC >100,000 may have falsely elevated Potassium levels. ??For accurate Potassium quantification in these patients send serum separator tube (gold top) for subsequent determinations. ??Contact the Clinical Chemistry Laboratory if there are any questions. Chloride 107 98 - 107 mmol/L [facility] CO2 25 22 - 31 mmol/L [facility] Anion Gap 12 5 - 15 mmol/L [facility] Calcium 9.2 8.5 - 10.5 mg/dL [facility] Estimated GFR 82 >=60 mL/min/1. 73 m?? [facility] [...] Hancock MD CHEMISTRY ORDERABLES [facility] [place] [place] [address] * Magnesium (03/21/2024 2:57 AM EDT) Magnesium 0.91 0.69 - 1.07 mmol/L [facility] Blood 03/21/2024 2:57 AM EDT 03/21/2024 3:03 AM EDT Narrative Resulting Agency Comment Spec In Lab Destin Ambrosio MD CHEMISTRY ORDERABLES Performing Organization Address [facility] Co de Phone Number [facility] [place] [address] * Metanephrines, Fractionated Free, plasma (03/21/2024 2:57 AM EDT) Normetane Free 0.47 <0.90 nmol/L [facility] Comment: Test Performed by: [facility] [place] [address] Forklift Driver: Chasity Hernandez Ph.D.; CLIA# [id number] Metanephr Free <0.20 <0.50 nmol/L [facility] Comment: ADDITIONAL INFORMATION This test was developed and its performance characteristics determined by [facility] in a manner consistent with CLIA requirements. This test has not been cleared or approved by the U.S. Food and Drug Administration. Test Performed by: [facility] [place] [address] Forklift Driver: Chasity Hernandez Ph.D.; CLIA# [id number] Blood 03/21/2024 2:57 AM EDT 03/21/2024 11:29 AM EDT Narrative Resulting Agency Comment Spec In Lab Horace Hancock MD CHEMISTRY ORDERABLES Performing Organization Address City/[facility]/ZIP Co de Phone Number [facility] [place] [address] * Iron and TIBC (03/20/2024 10:38 AM [...] Hancock MD CHEMISTRY ORDERABLES [facility] [place] [address] * (ABNORMAL) Differential, Automated (03/20/2024 10:38 AM EDT) Neutrophils % 73.1 % [facility] Neutr Abs (ANC) 9.60(H) 1.70 - 6.10 x10(3)/[facility] Lymphocytes % 17.3 % [facility] Lymphocytes Abs 2.3 0.9 - 3.2 x10(3)/[facility] Monocytes % 7.5 % [facility] Monocyte Abs 1.0(H) 0.3 - 0.9 x10(3)/[facility] Eosinophils % 1.5 % [facility] Eosinophils Abs 0.2 0.0 - 0.4 x10(3)/[facility] Basophils % 0.3 % [facility] Basophils Abs 0.0 0.0 - 0.1 x10(3)/[facility] Immature Gran % 0.30 % [facility] Comment: Immature granulocytes(IG's)percentage and absolute count will include metamyelocytes, myelocytes, and promyelocytes. Blood smears from CBCs yielding IG's will be scanned manually for concordance. If this scan disagrees with the automated IG or if promyelocytes are noted, a manual differential will be performed. Lesia Gran Abs 0.04 0.00 - 0.04 x10(3)/[facility] Blood 03/20/2024 10:3 8 AM EDT 03/20/2024 10:47 AM EDT Narrative Resulting Agency Comment Spec In Lab Horace Hancock MD HEMATOLOGY ORDERABLE S [facility] [place] [place] [address] * (ABNORMAL) Hemogram (03/20/2024 10:38 AM EDT) WBC 13.2(H) 4.0 - 9.5 x10(3)/[facility] RBC 4.66 4.00 - 5.21 x10(6)/[facility] Hemoglobin 13.0 11.7 - 15.5 g/dL [facility] Hematocrit 38.7 35.7 - 45.8 % [facility] MCV 83.0 82.6 - 94.4 [facility] MCH 27.9 27.1 - 32.0 pg [facility] MCHC 33.6 31.7 - 35.0 g/dL [facility] Platelets 238 145 - 357 x10(3)/[facility] RDWSD 41.7 37.0 - 46.0 [facility] RDWCV 13.8 11.5 - 14.1 % [facility] MPV 9.8 7.6 - 12.9 [facility] nRBC % Auto 0.0 % [facility] [facility] nRBC Abs Auto 0.000 0.000 - 0.000 x10(3)/[facility] Blood 03/20/2024 10:3 8 AM EDT 03/20/2024 10:47 AM EDT Narrative Resulting Agency Comment Spec In Lab Horace Hancock MD HEMATOLOGY ORDERABLE S [facility] [place] [address] * Magnesium (03/20/2024 10:38 AM EDT) Magnesium 0.88 0.69 - 1.07 mmol/L [facility] Blood 03/20/2024 10:3 8 AM EDT 03/20/2024 10:47 AM EDT Narrative Resulting Agency Comment Spec In Lab Horace Hancock MD CHEMISTRY ORDERABLES [facility] [place] [address] * Basic Metabolic Panel (non-fasting) (03/20/2024 10:38 AM EDT) Glucose Lvl 108 65 - 199 mg/dL [facility] Comment:Diabetes: >=200 mg/d L plus symptoms BUN 11 8 - 18 mg/dL [facility] Creatinine 0.82 0.70 - 1.20 mg/dL [facility] Sodium 137 135 - 145 mmol/L [facility] Potassium 4.3 3.5 - 5.0 mmol/L [facility] Comment: Please note: ??Patients with WBC >100,000 may have falsely elevated Potassium levels. ??For accurate Potassium quantification in these patients send serum separator tube (gold top) for subsequent determinations. ??Contact the Clinical Chemistry Laboratory if there are any questions. Chloride 101 98 - 107 mmol/L [facility] CO2 22 22 - 31 mmol/L [facility] Anion Gap 14 5 - 15 mmol/L [facility] Calcium 9.0 8.5 - 10.5 mg/dL [facility] Estimated GFR 82 >=60 mL/min/1. 73 m?? [facility] [...] Address City/[facility]/ZIP Co de Phone Number [facility] [place] [address] * Magnesium (03/19/2024 11:01 PM EDT) Magnesium 0.96 0.69 - 1.07 mmol/L [facility] Blood Venous Draw / Unknown 03/19/2024 11:01 PM EDT 03/19/2024 11:06 PM EDT Narrative Resulting Agency Comment Spec In Lab Horace Hancock MD CHEMISTRY ORDERABLES Performing Organization Address [facility] Co de Phone Number [facility] [place] [address] * (ABNORMAL) Troponin (03/19/2024 11:01 PM EDT) Troponin-T HS 2,406(H) <=14 ng/L [facility] [...] troponin value can be found in the [facility] Test Catalog Troponin - [facility] Test Catalog Reference: Fourth [place] Definition of Myocardial Infarction. Journal of the [place] [employer] 2018;72:5026-7078 Blood 03/19/2024 11:0 1 PM EDT 03/19/2024 11:05 PM EDT Narrative Resulting Agency Comment Spec In Lab Franky Mead MD CHEMISTRY ORDERABLE S [facility] [place] [address] * (ABNORMAL) Troponin (03/19/2024 8:40 PM EDT) Troponin-T HS 2,586(H) <=14 ng/L [facility] Comment: This [...] troponin value can be found in the [facility] Test Catalog Troponin - [facility] Test Catalog Reference: Fourth [place] Definition of Myocardial Infarction. Journal of the [employer] 2018;72:1729-8031 Blood 03/19/2024 8:40 PM EDT 03/19/2024 8:45 PM EDT Narrative Resulting Agency Comment Spec In Lab Ganesh Nguyen MD CHEMISTRY ORDERAB LES Performing Organization Address City/[facility]/ZIP Co de Phone Number [facility] [place] [address] * EKG 12 Lead (03/19/2024 8:32 PM EDT) Ventricular rate 70 BPM MUSE SYSTEM Atrial Rate 70 BPM MUSE SYSTEM P-R Interval 158 ms MUSE SYSTEM QRS Duration 78 ms MUSE SYSTEM Q-T Interval 470 ms MUSE SYSTEM QTC Calculated (Bezet) 507 ms MUSE SYSTEM Calculated P [place] 62 degrees MUSE SYSTEM Calculated R [place] 42 degrees MUSE SYSTEM Calculated T [place] -158 degrees MUSE SYSTEM INTERPRETATION Normal sinus rhythm Poor R wave progression T wave abnormality, consider lateral ischemia Prolonged QT Abnormal ECG When compared with ECG of 19-MAR-2024 17:27, No significant change was found Confirmed by MD Ambrosio David ([id number]) on 03/23/2024 8:10:58 AM MUSE SYSTEM 03/19/2024 [...] (Bezet) 496 ms MUSE SYSTEM Calculated P [place] 80 degrees MUSE SYSTEM Calculated R [place] 87 degrees MUSE SYSTEM Calculated T [place] -96 degrees MUSE SYSTEM INTERPRETATION Normal sinus rhythm T wave abnormality, consider lateral ischemia Prolonged QT Abnormal ECG When compared with ECG of 19-MAR-2024 02:23, Non-specific change in ST segment in Anterior leads T wave inversion more evident in Inferior leads T wave inversion now evident in Anterolateral leads Confirmed by MD Ambrosio David ([id number]) on 03/23/2024 8:10:45 AM MUSE SYSTEM 03/19/2024 5:27 PM EDT 03/23/2024 8:10 AM EDT Unknown ECG ORDERABLES MUSE SYSTEM * (ABNORMAL) Troponin (03/19/2024 2:45 PM EDT) Troponin-T HS 3,792(H) <=14 ng/L [facility] Comment: This [...] troponin value can be found in the [facility] Test Catalog Troponin - [facility] Test Catalog Reference: Fourth [place] Definition of Myocardial Infarction. Journal of the [place] College [employer] Cardiology 2018;72:3079-9311 Blood 03/19/2024 2:45 PM EDT 03/19/2024 2:54 PM EDT Narrative Resulting Agency Comment Spec In Lab Horace Hancock MD CHEMISTRY ORDERABLES [facility] [place] [place] [address] * ECHO COMPLETE W CONTRAST (03/19/2024 10:53 AM EDT) Anatomical Region Laterality Modality Cardiac Other 03/19/2024 9:03 AM EDT Narrative 03/19/2024 12:12 PM EDT [address] [place] [id number] ? Echocardiogram Report Name: ISA RO ?Study Date: 03/19/2024 09:03 AMBP: 129/68 mmHg ? Patient Location: 4A : 1965 ? Height: 158 cm ? Account: [id number] Age: 59 yrs ? Weight: 57 kg Gender: Female ?BSA: 1.6 m2 Ordering Physician: GANESH NGUYEN Referring Physician: GANESH NGUYEN Performed By: PEREZ Carlos Reason For Study: STEMI involving LAD Exam Location: [facility]. Interpretation Summary Normal left ventricle size with mildly reduced LV function. LV ejection fraction 49%. LAD territory wall motion abnormality, predominantly involving the LV apex. No LV thrombus visualized with echo contrast. Normal right ventricle. No significant valvular abnormalities. Compared with prior echo dated 08/28/23, LV function has now decreased and new wall motion abnormalities. Procedure Complete-[id number]. Image enhancement Definity was used for left [...] Note Destin Ambrosio MD - 03/19/2024 [address] [place] [address] Echocardiogram Report Name: ISA RO Study Date: 409:03 AMBP: 129/68 mmHg Patient Location: : 1965 Height: 158 cm Account: [id number] Age: 59 yrs Weight: 57 kg Gender: Female BSA: 1.6 m2 Ordering Physician: GANESH NGUYEN Referring Physician: GANESH NGUYEN Performed By: PEREZ Carlos Reason For Study: STEMI involving LAD Exam Location: [facility]. Interpretation Summary Normal left ventricle size with mildly reduced LV function. LV ejectionfraction 49%. LAD territory wall motion abnormality, predominantly involving the LVapex. No LV thrombus visualized with echo contrast. Normal right ventricle. No significant valvular abnormalities. Compared with prior echo dated 08/28/23, LV function has now decreased andnew wall motion abnormalities. Procedure Complete-[id number]. Image enhancement Definity was used for left [...] View (03/19/2024 8:37 AM EDT) WORKSTATION ID [id number] RAD Anatomical Region Laterality Modality Chest N/A [...] who have questions please contact the health tire care manager that requested your imaging first. ? Electronically signed by: Isa Whitley MD, [facility] ??([phone]), at 03/19/2024 10:09 AM Narrative 03/19/2024 10:09 [...] patients who have questions please contactthe health tire care manager that requested your imaging first. Electronically signed by: Isa Whitley MD, [facility]([phone]), at 03/19/2024 10:09 AM Delores Jett MD IMG DX ORDERABLES * Hemoglobin A1c (03/19/2024 5:25 AM EDT) Pathologist [facility] Hemoglobin A1C 5.6 4.3 - 5.6 % [...] Mellitus, Diabetes Care 2013; 36: Suppl. 1, A27-59 Est Avg Gluc 114 mg/dL [facility] Blood Venous Draw / Unknown 03/19/2024 5:25 AM EDT 03/19/2024 3:52 PM EDT Narrative Resulting Agency Comment Spec In Lab Horace Hancock MD CHEMISTRY ORDERABLES [facility] [place] [place] [address] * (ABNORMAL) Differential, Automated (03/19/2024 5:25 AM EDT) Neutrophils % 90.0 % [facility] Neutr Abs (ANC) 16.73(H) 1.70 - 6.10 x10(3)/mc L [facility] Lymphocytes % 5.2 % [facility] Lymphocytes Abs 1.0 0.9 - 3.2 x10(3)/[facility] Monocytes % 4.2 % [facility] Monocyte Abs 0.8 0.3 - 0.9 x10(3)/[facility] Eosinophils % 0.0 % [facility] Eosinophils Abs 0.0 0.0 - 0.4 x10(3)/[facility] Basophils % 0.2 % [facility] Basophils Abs 0.0 0.0 - 0.1 x10(3)/[facility] Immature Gran % 0.40 % [facility] Comment: Immature granulocytes(IG's)percentage and absolute count will include metamyelocytes, myelocytes, and promyelocytes. Blood smears from CBCs yielding IG's will be scanned manually for concordance. If this scan disagrees with the automated IG or if promyelocytes are noted, a manual differential will be performed. Lesia Gran Abs 0.08(H) 0.00 - 0.04 x10(3)/[facility] Blood 03/19/2024 5:25 AM EDT 03/19/2024 5:34 AM EDT Narrative Resulting Agency Comment Spec In Lab Ganesh Nguyen MD HEMATOLOGY ORDERA BLES [facility] [place] [address] * (ABNORMAL) Hemogram (03/19/2024 5:25 AM EDT) WBC 18.6(H) 4.0 - 9.5 x10(3)/[facility] RBC 4.92 4.00 - 5.21 x10(6)/[facility] Hemoglobin 13.7 11.7 - 15.5 g/dL [facility] Hematocrit 40.6 35.7 - 45.8 % [facility] MCV 82.5(L) 82.6 - 94.4 fL [facility] MCH 27.8 27.1 - 32.0 pg [facility] MCHC 33.7 31.7 - 35.0 g/dL [facility] Platelets 285 145 - 357 x10(3)/[facility] RDWSD 41.1 37.0 - 46.0 fL [facility] RDWCV 13.6 11.5 - 14.1 % [facility] MPV 9.5 7.6 - 12.9 fL [facility] nRBC % Auto 0.0 % [facility] nRBC Abs Auto 0.000 0.000 - 0.000 x10(3)/[facility] Blood 03/19/2024 5:25 AM EDT 03/19/2024 5:34 AM EDT Narrative Resulting Agency Comment Spec In Lab Ganesh Nguyen MD HEMATOLOGY ORDERA BLES [facility] [place] [place] [address] * Lipid Panel (Reflex Direct LDL) (03/19/2024 5:25 AM EDT) Chol, Total 324 mg/dL [facility] Comment: Desirable: ? <200 mg/dL Borderline High: 200-239 mg/dL Higher: ?>ua=162 mg/dL Triglycerides 200 mg/dL [facility] Comment: Normal: ?<150 mg/dL Borderline High: 150-199 mg/dL High: ?200-499 mg/dL Very High: ? >un=930 mg/dL HDL 68 mg/dL [facility] Comment: Females: High Risk: <50 mg/dL Males: High Risk: <40 mg/dL LDL Cholesterol 216 mg/dL [facility] Comment: Desirable: ? <100 mg/dL Above Desirable: 100-129 mg/dL Borderline High: 130-159 mg/dL High: ?160-189 mg/dL Very High: ? >bb=230 mg/dL Lipid Interpretation See Note [facility] [...] ACC/AHA Guidelines (most recently Jw et al. [facility] 06/17/22): For individuals with atherosclerotic cardiovascular disease (ASCVD)or LDL >un=641 mg/dL, use a high-intensity statin (40-80 mg [...] MD CHEMISTRY ORDERAB LES [facility] [place] [address] * (ABNORMAL) Troponin (03/19/2024 5:25 AM EDT) Troponin-T HS 1,276(H) <=14 ng/L [facility] Comment: This [...] troponin value can be found in the [facility] Test Catalog Troponin - [facility] Test Catalog Reference: Fourth [place] Definition of Myocardial Infarction. Journal of the [place] College [employer] 2018;72:0393-5352 Blood 03/19/2024 5:25 AM EDT 03/19/2024 5:34 AM EDT Narrative Resulting Agency Comment Spec In Lab Ganesh Nguyen MD CHEMISTRY ORDERAB LES Performing Organization Address [facility] Co de Phone Number [facility] [place] [address] * APTT (03/19/2024 5:25 AM EDT) PTT 29 25 - 37 sec [facility] [...] MD HEMATOLOGY ORDERA BLES Performing Organization Address [place] de Phone Number [facility] [place] [address] * Prothrombin Time (03/19/2024 5:25 AM EDT) PT 10.9 9.4 - 12.5 sec [facility] INR 1.0 [facility] Comment: An INR <2.0 indicates [...] MD HEMATOLOGY ORDERA BLES Performing Organization Address [facility] Co de Phone Number [facility] [place] [address] * (ABNORMAL) Comprehensive metabolic panel (non-fasting) (03/19/2024 [...] Address City/[facility]/ZIP Co de Phone Number [facility] [place] [address] * EKG 12 Lead (03/19/2024 2:23 AM EDT) Ventricular rate 67 BPM MUSE SYSTEM Atrial Rate 67 BPM MUSE SYSTEM P-R Interval 152 ms MUSE SYSTEM QRS Duration 78 ms MUSE SYSTEM Q-T Interval 500 ms MUSE SYSTEM QTC Calculated (Bezet) 528 ms MUSE SYSTEM Calculated P [place] 54 degrees MUSE SYSTEM Calculated R [place] 56 degrees MUSE SYSTEM Calculated T [place] 31 degrees MUSE SYSTEM INTERPRETATION Normal sinus rhythm Prolonged QT Abnormal ECG No previous ECGs available Confirmed by MD Ambrosio David ([id number]) on 03/23/2024 8:10:32 AM MUSE SYSTEM 03/19/2024 2:23 AM EDT 03/23/2024 8:10 AM EDT Ganesh Nguyen MD ECG ORDERABLES Performing Organization Address City/[facility]/ZIP Co de Phone Number MUSE SYSTEM * (ABNORMAL) Differential, Automated (03/19/2024 2:20 AM EDT) Pathologist [facility] Neutrophils % 89.8 % [facility] Neutr Abs (ANC) 15.44(H) 1.70 - 6.10 x10(3)/mc L [facility] Lymphocytes % 6.4 % [facility] Lymphocytes Abs 1.1 0.9 - 3.2 x10(3)/mc L [facility] Monocytes % 2.9 % [facility] Monocyte Abs 0.5 0.3 - 0.9 x10(3)/mc L [facility] Eosinophils % 0.1 % [facility] Eosinophils Abs 0.0 0.0 - 0.4 x10(3)/mc L [facility] Basophils % 0.3 % [facility] Basophils Abs 0.0 0.0 - 0.1 x10(3)/mc L [facility] Immature Gran % 0.50 % [facility] Comment: Immature granulocytes(IG's)percentage and absolute count will include metamyelocytes, myelocytes, and promyelocytes. Blood smears from CBCs yielding IG's will be scanned manually for concordance. If this scan disagrees with the automated IG or if promyelocytes are noted, a manual differential will be performed. Lesia Gran Abs 0.08(H) 0.00 - 0.04 x10(3)/mc L [facility] Blood 03/19/2024 2:20 AM EDT 03/19/2024 2:59 AM EDT Narrative Resulting Agency Comment Spec In Lab Ganesh Nguyen MD HEMATOLOGY ORDERA BLES Performing Organization Address City/State/[facility] Co de Phone Number [facility] [place] [address] * (ABNORMAL) Hemogram (03/19/2024 2:20 AM EDT) WBC 17.2(H) 4.0 - 9.5 x10(3)/[facility] RBC 4.70 4.00 - 5.21 x10(6)/[facility] Hemoglobin 13.3 11.7 - 15.5 g/dL [facility] Hematocrit 38.7 35.7 - 45.8 % [facility] MCV 82.3(L) 82.6 - 94.4 fL [facility] MCH 28.3 27.1 - 32.0 pg [facility] MCHC 34.4 31.7 - 35.0 g/dL [facility] Platelets 281 145 - 357 x10(3)/[facility] RDWSD 41.0 37.0 - 46.0 fL [facility] RDWCV 13.7 11.5 - 14.1 % [facility] MPV 9.7 7.6 - 12.9 fL [facility] nRBC % Auto 0.0 % [facility] nRBC Abs Auto 0.000 0.000 - 0.000 x10(3)/mcL [facility] Blood 03/19/2024 2:20 AM EDT 03/19/2024 2:59 AM EDT Narrative Resulting Agency Comment Spec In Lab Ganesh Nguyen MD HEMATOLOGY ORDERA BLES [facility] [place] [place] [address] * (ABNORMAL) Troponin (03/19/2024 2:20 AM EDT) Troponin-T HS 960(H) <=14 ng/L [facility] Comment: [...] troponin value can be found in the [facility] Test Catalog Troponin - [facility] Test Catalog Reference: Fourth [place] Definition of Myocardial Infarction. Journal of the [place] College [employer] 2018;72:1171-0942 Blood 03/19/2024 2:20 AM EDT 03/19/2024 2:59 AM EDT Narrative Resulting Agency Comment Spec In Lab Ganesh Nguyen MD CHEMISTRY ORDERAB LES Performing Organization Address [facility] Co de Phone Number [facility] [place] [address] * (ABNORMAL) APTT (03/19/2024 2:20 AM EDT) PTT 123(Criti lewis) 25 - 37 sec [facility] Comment: Critical Result called by [...] MD HEMATOLOGY ORDERA BLES Performing Organization Address [place] de Phone Number [facility] [place] [address] * Prothrombin Time (03/19/2024 2:20 AM EDT) PT 11.7 9.4 - 12.5 sec [facility] INR 1.0 [facility] Comment: An INR <2.0 indicates [...] MD HEMATOLOGY ORDERA BLES Performing Organization Address [facility] Co de Phone Number [facility] [place] [address] * (ABNORMAL) Hepatic Function Panel (03/19/2024 2:20 [...] MD CHEMISTRY ORDERAB LES Performing Organization Address [facility] Co de Phone Number [facility] [place] [address] * (ABNORMAL) pro-Brain Natriuretic Peptide (03/19/2024 2:20 AM EDT) ProBNP 529(H) <=124 pg/mL [facility] Blood 03/19/2024 2:20 AM EDT 03/19/2024 2:59 AM EDT Narrative Resulting Agency Comment Spec In Lab Ganesh Nguyen MD CHEMISTRY ORDERAB LES Performing Organization Address [facility] Co de Phone Number [facility] [place] [address] * Phosphorus (03/19/2024 2:20 AM EDT) Phosphorus 3.8 2.5 - 4.5 mg/dL [facility] Blood 03/19/2024 2:20 AM EDT 03/19/2024 2:59 AM EDT Narrative Resulting Agency Comment Spec In Lab Ganesh Nguyen MD CHEMISTRY ORDERAB LES Performing Organization Address City/[facility] Co de Phone Number [facility] [place] [place] [address] * Magnesium (03/19/2024 2:20 AM EDT) Magnesium 0.71 0.69 - 1.07 mmol/L [facility] Blood 03/19/2024 2:20 AM EDT 03/19/2024 2:59 AM EDT Narrative Resulting Agency Comment Spec In Lab Ganesh Nguyen MD CHEMISTRY ORDERAB LES Performing Organization Address [facility] Co de Phone Number [facility] [place] [address] * (ABNORMAL) Basic Metabolic Panel (non-fasting) (03/19/2024 2:20 AM EDT) Glucose Lvl 160 65 - 199 mg/dL [facility] Comment:Diabetes: >=200 mg/d L plus symptoms BUN 14 8 - 18 mg/dL [facility] Creatinine 0.88 0.70 - 1.20 mg/dL [facility] Sodium 137 135 - 145 mmol/L [facility] Potassium 3.9 3.5 - 5.0 mmol/L [facility] Comment: Please note: ??Patients with WBC >100,000 may have falsely elevated Potassium levels. ??For accurate Potassium quantification in these patients send serum separator tube (gold top) for subsequent determinations. ??Contact the Clinical Chemistry Laboratory if there are any questions. Chloride 100 98 - 107 mmol/L [facility] CO2 20(L) 22 - 31 mmol/L [facility] Anion Gap 17(H) 5 - 15 mmol/L [facility] Calcium 8.2(L) 8.5 - 10.5 mg/dL [facility] Estimated GFR 75 >=60 mL/min/1. 73 m?? [facility] [...] CHEMISTRY ORDERAB LES Performing Organization Address City/State/[facility] Co de Phone Number [facility] [place] [address] * (ABNORMAL) Point of Care Blood Gas [...] POC Potassium 3.4(L) 3.5 - 5.0 mmol/L [facility] POC Ionized Ca 1.09(L) 1.15 - 1.33 mmol/L [facility] POC Hematocrit 38.0 34.0 - 45.0 % [facility] POC Calc Hgb 12.9 11.2 - 15.7 g/dL [facility] Blood 03/19/2024 1:41 AM EDT 03/19/2024 1:41 AM EDT Kathryn Walker MD CHEMISTRY ORDERABL ES [facility] [place] [place] [address] * CARDIAC CATHETERIZATION (03/19/2024 1:36 AM EDT) Anatomical Region Laterality Modality Other Narrative 03/19/2024 7:19 AM EDT ?[facility] ? Cardiac Catheterization/Intervention Report ? Patient Name: Isa Ro. ? Procedure Date: 03/19/2024 ? A #: [id number] ? Primary Physician: Ramo Roy ? Case #: [id number] ? File Name: [id number] ? Catheterization Order Number: [id number] ? [facility] ? Final Report [place], [place] ? Patient Name: ? Isa A. Warnaar ? ID#: ?[id number] ? : ?1965 ? Procedure Date: ? March 19, 2024 ? Case #: ? [id number] ? Room: ? 6 ? Case Physician: [...] procedure was Emergent. The indication for ?the lab animal technician visit is ACS less than or equal [...] ?3.5 guiding catheter and a 3.5 Fr [place] 20 Mhz using auto 1 ?mm/sec [...] A premounted 3.00 x 08 mm Alberto Axtell (JAHAIRA) was deployed ? with a maximum inflation pressure of 12 atmospheres. ? Another stent insertion was accomplished through a 6 Fr. EBU ? 3.5 guide. ??A premounted 2.00 x 08 mm Alberto Axtell (JAHAIRA) was ? deployed. ? The final [...] dose administered prior to arrival in the lab animal technician. ?Recommended anti-platelet/anti-thrombotic regimen: ?Start aspirin 81 mg daily now and continue for indefinitely. ?Start clopidogrel 75 mg daily now and continue for 12 months then stop. ?These recommendations are made at the time of the intervention. Patient ?and provider preferences or a changing clinical situation may require ?modification of this regimen. Consult [facility] for ?questions. [...] against any medical treatment. Consult ?http://tools.acc.org/DAPTriskapp/#!/content/calculator/ or [facility] [place]Interventional Cardiology for questions [...] Procedure Note Ramo Roy MD - 03/21/2024 [facility] Cardiac Catheterization/Intervention Report Patient Name: Isa Ro Procedure Date: 03/19/2024 A #: [id number] Primary Physician: Ramo Roy Case #: [id number] File Name: [id number] Catheterization Order Number: [id number] [facility] FinalReport [place], [place] Patient Name: Isa Ro ID#:[id number] :1965 Procedure Date: March 19, 2024 Case [...] patientwas designated as ASA Class IV. The [facility] clinical frailty scale is 3: Managing Well. Diagnostic Tests: Prior Coronary Angiography: Prior coronary angiography was performed on 12/15/2014. Electrocardiography: EKG was assessed by ECG. EKG was Abnormal. EKG showed STDeviation >= 0.5 mm and other abnormality. Medications Prior to Procedure: Aspirin. Indications for Diagnostic Cath: The priority of the diagnostic procedure was Emergent. Theindication for the lab animal technician visit is ACS less than or equal [...] 3.5 guiding catheter and a 3.5 Fr [place] 20 Mhz usingauto 1 mm/sec pullback. [...] The priority for the procedure was Emergent.[facility] the [facility] STEMI-Immediate [...] The lesion was predilated with a 2.50mm [id number] MM balloon with a maximum inflation pressure of 14atmospheres. A premounted 3.00 x 08 mm [place] Axtell (JAHAIRA) wasdeployed with a maximum inflation pressure of 12 atmospheres. Another stent insertion was accomplished through a 6 Fr.EBU 3.5 guide. A premounted 2.00 x 08 mm Alberto Axtell (JAHAIRA)was deployed. The final outcome was defined [...] dose administered prior to arrival in the lab animal technician. Recommended anti-platelet/anti-thrombotic regimen: Start aspirin 81 mg daily now and continue for indefinitely. Start clopidogrel 75 mg daily now and continue for 12 months thenstop. These recommendations are made at the time of the intervention.Patient and provider preferences or a changing clinical situation mayrequire modification of this regimen. [place] [facility] [place]iology[place] questions. The [...] or against any medical treatment.Consult http://tools.acc.org/DAPTriskapp/#!/content/calculator/ or [facility] [place] for questions [...] POC pH 7.20(Criti lewis) 7.35 - 7.45 [facility] POC PCO2 38 35 - 45 mmHg [facility] POC PO2 74(L) 85 - 104 mmHg [facility] POC Base Excess -14.0(L) -3.0 - 3.0 mmol/L [facility] POC HCO3 14.5(L) 20.0 - 26.0 mmol/L [facility] POC TCO2 16(L) 22 - 31 mmol/L [facility] POC Sodium 116(Critic al) 135 - 145 mmol/L [facility] POC Potassium 3.1(L) 3.5 - 5.0 mmol/L [facility] POC Ionized Ca 1.04(L) 1.15 - 1.33 mmol/L [facility] POC Hematocrit 39.0 34.0 - 45.0 % [facility] POC Calc Hgb 13.3 11.2 - 15.7 g/dL [facility] Blood 03/19/2024 1:26 AM EDT 03/19/2024 1:26 AM EDT Kathryn Walker MD CHEMISTRY ORDERABL ES [facility] [address] [place] [address] documented in this encounter Visit Diagnoses Diagnosis [...] Loreta Lopez RN) 0833 (Given - Provider: Izaaih Jimenez RN) 0857 (Given - Provider: Lubna [...] Routine documented in this encounter Care Teams Turret Lathe Operator Relationship Specialty Start Date End Date None None PCP - General 03/19/24 documented as of this encounter
--- OUTSIDE RECORDS SUMMARY | 2024-04-08 10:56 | XMS_ITS | Encounter Summary ---
Author Organization [facility] Address [facility] [place] [address] Care Team Providers Care Soil Expert Name Role Phone Pretty Avery MD Primary Care Provider [phone] Reason for Visit * Reason Comments Basal Cell Carcinoma * Consultation (Routine) - Closed Specialty Diagnoses / Procedures Referred By Contac t Referred To Contact Dermatology Diagnoses skin lesion lower back, basel cell ca Isa Estrada MD [address] [place] [address] [facility] [address] [place] [address] Referral ID Status Reason Start Date Expiration Date V isits Requested Visits Authorized [id number] Closed Evaluate and Treat [facility] 12/17/2015 12/16/2016 1 1 Encounter Details Date Type Department Care Team (Late st Contact Info) Description 12/19/2015 2:30 PM EDT Office Visit Dermatology at [facility] [address] [place] [address] Lisa Candelario MD [facility] [place] [address] Superficial basal cell carcinoma; Seborrheic [...] or concerns, please call the office at [phone]. If it is after 5PM, or a holiday or weekend, please call [phone] and ask for the Composition Teacher on-call. documented in this encounter Progress Notes [...] encounter. Lisa Candelario MD Section of Dermatology [facility] documented in this encounter Plan of Treatment Upcoming Encounters Date Type Department Care Team (Late st Contact Info) Description 05/09/2024 10:40 AM EDT Office Visit Cardiology at [address] [place] [address] Herlinda Weaver [place] [facility] [place] [address] documented as of this encounter Visit Diagnoses Diagnosis Superficial basal cell carcinoma Basal cell carcinoma of skin, site unspecified Seborrheic keratosis Other seborrheic keratosis documented in this encounter Care Teams Soil Expert Relationship Specialty Start Date End Date Pretty Avery MD [address] [place] [address] PCP - General 08/06/10 03/18/24 documented as of this encounter
--- OUTSIDE RECORDS SUMMARY | 2024-04-08 10:56 | XMS_ITS | Encounter Summary ---
Author Organization [facility] Address [facility] [place] [address] Care Team Providers Care Gas Furnace Installer Name Role Phone Pretty Avery MD Primary Care Provider [phone] Encounter Details Date Type Department Care Team (Latest Contact Info) Description 03/18/2024 11:37 PM EDT - 03/18/2024 11:59 PM EDT Hospital Encounter [place] [address] Destin Ambrosio MD [facility] [place] [address] Discharge Disposition: Home Social History Tobacco Use [...] 10:40 AM EDT Office Visit Cardiology at [address] [place] [address] Herlinda Weaver PA [facility] [place] [address] documented as of this encounter Visit Diagnoses Not on filedocumented in this encounter Care Teams Gas Furnace Installer Relationship Specialty Start Date End Date Pretty Avery MD [address] [place] [address] PCP - General 08/06/10 03/18/24 documented as of this encounter
--- OUTSIDE RECORDS SUMMARY | 2024-04-08 10:56 | XMS_ITS | Encounter Summary ---
Author Organization [facility] [place] [address] Care Team Providers Care Dairy Powder Mixer Operator Name Role Phone Pretty Avery MD Primary Care Provider Reason for Visit * Reason Comments Skin Check Encounter Details Date Type Department Care Team (Late st Contact Info) Description 02/04/2017 1:15 PM EDT Office Visit Dermatology at [facility] [address] [place] [address] Lisa Candelario MD [facility] [place] [address] Seborrheic keratosis; Multiple benign nevi; History of [...] encounter. Lisa Candelario MD Section of Dermatology [facility] documented in this encounter Plan of Treatment Upcoming Encounters Date Type Department Care Team (Late st Contact Info) Description 05/09/2024 10:40 AM EDT Office Visit Cardiology at [address] [place] [address] Herlinda Weaver PA [facility] [place] [address] documented as of this encounter Visit Diagnoses Diagnosis Seborrheic keratosis Other seborrheic keratosis Multiple benign nevi Benign neoplasm of skin, site unspecified History of basal cell cancer Personal history of other malignant neoplasm of skin documented in this encounter Care Teams Dairy Powder Mixer Operator Relationship Specialty Start Date End Date Pretty Avery MD [address] [place] [address] PCP - General 08/06/10 03/18/24 documented as of this encounter
--- OUTSIDE RECORDS SUMMARY | 2024-04-08 10:56 | XMS_ITS | Encounter Summary ---
Author Organization [facility] [place] [address] Care Team Providers Care Net Trainer Name Role Phone Pretty Avery MD Primary Care Provider [phone] Encounter Details Date Type Department Care Team (Late st Contact Info) Description 12/08/2023 10:30 AM EDT Office Visit Dermatology at [address] [place] [address] Aylin Cole MD [address] [place] [address] Skin cancer screening; Inflamed seborrheic keratosis; History [...] cochlear implant N History of Present Illness: Ias Ro is a 58 y.o. Patient is [...] for FBSE otherwise PRN []Note routed to executive secretary social welfare [x]Recall placed in scheduling system []Appointment scheduled at checkout Scribe attestation: Juliet Angulo [facility] has performed the documentation for this encounter in the presence of and acting as a scribe for Aylin Cole MD. I performed the above scribed service and agree with the accuracy of the documentation in this encounter. Reviewed and signed by: Aylin Cole MD Dermatology [facility] documented in this encounter Plan of Treatment Upcoming Encounters Date Type Department Care Team (Late st Contact Info) Description 05/09/2024 10:40 AM EDT Office Visit Cardiology at [address] [place] [address] Herlinda Weaver PA [facility] [place] [address] documented as of this encounter Visit Diagnoses Diagnosis Skin cancer screening Screening for malignant neoplasm of the skin Inflamed seborrheic keratosis History of basal cell carcinoma (BCC) Seborrheic dermatitis Seborrheic dermatitis, unspecified Seborrheic keratoses Multiple benign nevi of upper extremity, lower extremity, and trunk Lentigines Other dyschromia Garcia angioma Nevus, non-neoplastic documented in this encounter Care Teams Net Trainer Relationship Specialty Start Date End Date Pretty Avery MD [address] [place] [address] PCP - General 08/06/10 03/18/24 documented as of this encounter
--- OUTSIDE RECORDS SUMMARY | 2024-04-08 10:56 | XMS_ITS | Encounter Summary ---
[place] [address] Care Team Providers Care Computational Biologist Name Role Phone Pretty Avery MD Primary Care Provider [phone] Reason for Referral * Diagnostic Test (Routine) - Closed Specialty Diagnoses / Procedures Referred By Contac t Referred To Contact Cardiology Diagnoses Hyperlipidemia, unspecified hyperlipidemia type Procedures Mobile Demi Gross APRN [address] [place] [address] [facility] [place] [address] Referral ID Status Reason Start Date Expiration Date V isits Requested Visits Authorized [id number] Closed Specialty Service Requested 08/28/2023 08/27/2024 1 1 Reason for Visit * Diagnostic Test (Routine) - Closed Specialty Diagnoses / Procedures Referred By Contac t Referred To Contact Cardiology Diagnoses Hyperlipidemia, unspecified hyperlipidemia type Procedures Mobile Echo Demi Archibald APRN [address] [place] [address] [facility] [place] [address] Referral ID Status Reason Start Date Expiration Date V isits Requested Visits Authorized [id number] Closed Specialty Service Requested 08/28/2023 08/27/2024 1 1 Encounter Details Date Type Department Care Team (Latest Contact Info) Description 08/28/2023 3:53 PM EST - 08/28/2023 11:59 PM EST Hospital Encounter Mobile [place] [address] Demi Archibald APRN [address] [place] [address] Hyperlipidemia, unspecified hyperlipidemia type Discharge Disposition: Home [...] 10:40 AM EDT Office Visit Cardiology at [address] [phone] Herlinda Weaver PA [facility] [place] [address] documented as of this encounter Procedures Procedure Name Priority Date/Time Associated Diagnosis Comments ECHO COMPLETE Routine 08/28/2023 4:04 PM EST Hyperlipidemia, unspecified hyperlipidemia type documented in this encounter Results * ECHO COMPLETE (08/28/2023 4:04 PM EST) Anatomical Region Laterality Modality Other 08/28/2023 2:15 PM EST Narrative 08/28/2023 4:14 PM EST [address] [place] [address] ? Echocardiogram Report Name: EZEQUIEL THOMAS ?Study Date: 08/28/2023 02:15 PM ? Patient Location: : 1965 ? Height: 157 cm ? Account: [id number] Age: 58 yrs ? Weight: 57 kg Gender: Female ?BSA: 1.6 m2 Ordering Physician: DEMI ARCHIBALD Referring Physician: DEMI ARCHIBALD Reason For Study: CAD, HLD, HTN Exam Location: [facility]. Interpretation Summary Normal biventricular size and function. LVEF 60-65% by visual assessment. Normal diastolic function. Normal pulmonary pressures. Normal atrial sizes. Mild mitral regurgitation. No prior for comparison. Procedure Complete-[id number]. Satisfactory quality. Left Ventricle Wall thickness is [...] Note Kaylee Sutherland MD - 08/28/2023 [address] [place] [address] Echocardiogram Report Name: EZEQUIEL THOMAS Study Date:08/28/2023 02:15 PM Patient Location: : 1965 Height: 157 cm Account: [id number] Age: 58 yrs Weight: 57 kg Gender: Female BSA: 1.6 m2 Ordering Physician: DEMI ARCHIBALD Referring Physician: DEMI ARCHIBALD Reason For Study: CAD, HLD, HTN Exam Location: [facility]. Interpretation Summary Normal biventricular size and function. LVEF 60-65% by visual assessment.Normal diastolic function. Normal pulmonary pressures. Normal atrial sizes. Mild mitral regurgitation. No prior for comparison. Procedure Complete-[id number]. Satisfactory quality. Left Ventricle Wall thickness is [...] type documented in this encounter Care Teams Computational Biologist Relationship Specialty Start Date End Date Pretty Avery MD [address] [place] [address] PCP - General 08/06/10 03/18/24 documented as of this encounter
--- OUTSIDE RECORDS SUMMARY | 2024-04-08 10:56 | XMS_ITS | Encounter Summary ---
Author Organization [facility] [place] [address] Care Team Providers Care Program Evaluator Name Role Phone Pretty Avery MD Primary Care Provider [phone] Encounter Details Date Type Department Care Team [...] 10:40 AM EDT Office Visit Cardiology at [address] [place] [address] Herlinda Weaver [place] [id number] documented as of this encounter Visit Diagnoses Not on filedocumented in this encounter Care Teams Program Evaluator Relationship Specialty Start Date End Date Pretty Avery MD [address] [place] [address] PCP - General 08/06/10 03/18/24 documented as of this encounter
--- OUTSIDE RECORDS SUMMARY | 2024-04-11 10:14 | XMS_ITS | Encounter Summary ---
Author Organization [facility] Address [address] [place] [address] Care Team Providers Care Dispatcher Automobile Rental Name Role Phone Pretty Avery MD Primary Care Provider [phone] Encounter Details Date Type Department Care Team (Late st Contact Info) Description 04/08/2018 Historical Results Only [facility] Radiology Results [address] [place] [address] Wesley Trinh MD [address] [place] [address] Social History Tobacco Use Types [...] * TROPONIN I (04/08/2018 20:12 EDT) Pathologist [facility] Troponin I (ng/mL) <0.012 0.000 - 0.034 ng/mL 04/08/2018 20:47 EDT [facility] Comment: Interpretation comments: ??Cutoff for a positive troponin result is set at the 99th percentile of the upper reference limit. ??Elevated troponin must always be interpreted in the context of the clinical presentation. ?Serial troponin testing 3-6 hr from baseline is favored over relying on a single troponin level. 04/08/2018 20:1 2 EDT 04/08/2018 20:12 EDT Ganseh Philip MD CHEMISTRY & BLOOD GAS ORDERABLES [facility] * XR CHEST 2 [...] MD ? Transcribed Date/Time: 04/08/2018 (1402) ? Electrical Maintenance Worker: ? Printed Date/Time: 03/04/2019 (8296) ? PAGE 1 ? Signed Report ? [...] Wesley Trinh MD Transcribed Date/Time: 04/08/2018 (1402) Electrical Maintenance Worker: Printed Date/Time: 03/04/2019 (2225) PAGE 1 Signed Report Wesley Trinh MD IMG DIAGNOSTIC I MAGING ORDERABLES * MAGNESIUM (04/08/2018 12:24 EDT) Magnesium 1.70 1.7 - 2.8 mg/dL 04/08/2018 12:48 EDT [facility] 04/08/2018 12:2 4 EDT 04/08/2018 12:30 EDT Wesley Trinh MD CHEMISTRY & BLOO D GAS ORDERABLES [facility] * (ABNORMAL) COMPREHENSIVE METABOLIC PANEL (CMP) (04/08/2018 12:24 EDT) Pathologist [facility] Albumin % 4.4 3.4 - 4.9 g/dL 04/08/2018 12:48 [facility] ALKALINE PHOSPHATASE - [facility] 75 38 - 126 U/L 04/08/2018 12:48 [facility] BILIRUBIN TOTAL 0.4 0.2 - 1.3 mg/dL 04/08/2018 12:48 [facility] BUN - [facility] 21 10 - 26 mg/dL 04/08/2018 12:48 [facility] CALCIUM - [facility] 9.3 8.5 - 10.5 mg/dL 04/08/2018 12:48 [facility] Chloride 104 96 - 110 mmol/L 04/08/2018 12:48 [facility] CO2 Total 23 22 - 32 mEq/L 04/08/2018 12:48 [facility] CREATININE 0.85 0.52 - 1.04 mg/dL 04/08/2018 12:48 [facility] eGFR >60 04/08/2018 12:48 [facility] Comment: Chronic renal impairment is defined as GFR <60 Multiply result by 1.210 for patients. eGFR calculated using the IDMS-traceable MDRD Study Equation. ??(effective 07/17/2014) Anion Gap 11 0 - 18 04/08/2018 12:48 EDT [facility] GLUCOSE - [facility] 103(H) 70 - 100 mg/dL 04/08/2018 12:48 EDT [facility] Potassium 3.8 3.5 - 5.0 mEq/L 04/08/2018 12:48 EDT [facility] Sodium 138 136 - 145 mEq/L 04/08/2018 12:48 EDT [facility] TOTAL PROTEIN - [facility] 7.1 6.2 - 8.2 gm/dL 04/08/2018 12:48 EDT [facility] SGOT/AST - [facility] 20 14 - 36 U/L 04/08/2018 12:48 T [facility] SGPT/ALT - [facility] 36 9 - 52 U/L 8 12:48 EDT [facility] 04/08/2018 12:2 4 EDT 04/08/2018 12:30 EDT Wesley Trinh MD CHEMISTRY & BLOO D GAS ORDERABLES Performing Organization Address [facility]/ZIP Co de Phone Number [facility] * TROPONIN I (04/08/2018 12:24 EDT) Troponin I (ng/mL) <0.012 0.000 - 0.034 ng/mL 04/08/2018 13:00 EDT [facility] Comment: Interpretation comments: ??Cutoff [...] MD CHEMISTRY & BLOO D GAS ORDERABLES [facility] * COMPLETE BLOOD COUNT WITH DIFFERENTIAL (AUTO) (04/08/2018 12:24 EDT) ABSOLUTE NEUTROPHIL COUN - [facility] 5.55 1.7 - 7.0 10e3/ul 04/08/2018 12:36 [facility] BASO # - [facility] 0.02 0.0 - 0.3 10e3/uL 04/08/2018 12:36 [facility] BASO % - [facility] 0 0 - 2 % 04/08/2018 12:36 [facility] EOS # - [facility] 0.18 0.05 - 0.5 10e3/uL 04/08/2018 12:36 [facility] EOS % - [facility] 2 0 - 5 % 04/08/2018 12:36 [facility] GRAN % - [facility] 65 40 - 80 % 04/08/2018 12:36 [facility] HEMATOCRIT - [facility] 39.7 34.0 - 47.0 % 04/08/2018 12:36 [facility] HEMOGLOBIN - [facility] 13.5 11.2 - 15.7 g/dl 04/08/2018 12:36 [facility] IG# - [facility] 0.02 0 - 0.07 10e3/uL 04/08/2018 12:36 [facility] IG% - [facility] 0.2 0 - 0.9 % 04/08/2018 12:36 [facility] LYMPH # - [facility] 2.22 0.9 - 2.9 10e3/uL 04/08/2018 12:36 [facility] LYMPH% - [facility] 26 20 - 40 % 04/08/2018 12:36 [facility] MEAN CORPUSCULAR HGB - [facility] 28.2 26 - 34 pg 04/08/2018 12:36 [facility] MEAN CORPUSCULAR HGB CONC - [facility] 34.0 31 - 36 g/dL 04/08/2018 12:36 [facility] MEAN CELL VOLUME - [facility] 82.9 77 - 100 fl 04/08/2018 12:36 [facility] MONO # - [facility] 0.60 0.3 - 0.9 10e3/uL 04/08/2018 12:36 EDT [facility] MONO% - [facility] 7 0 - 12 % 04/08/2018 12:36 EDT [facility] PLATELET COUNT 252 150 - 400 10e3/ul 04/08/2018 12:36 EDT [facility] RED BLOOD COUNT - [facility] 4.79 3.8 - 5.2 10e6/ul 04/08/2018 12:36 EDT [facility] RED CELL DISTRI WIDTH - [facility] 14.1 11.8 - 15.6 % 04/08/2018 12:36 EDT [facility] WHITE BLOOD COUNT - [facility] 8.6 3.5 - 10.5 10e3/ul 04/08/2018 12:36 EDT [facility] 04/08/2018 12:2 4 EDT 04/08/2018 12:30 EDT Wesley Trinh MD HEMATOLOGY & PF4 ORDERABLES [facility] documented in this encounter Visit Diagnoses Not on filedocumented in this encounter Care Teams Dispatcher Automobile Rental Relationship Specialty Start Date End Date Pretty Avery MD [address] [place] [address] PCP - General 06/05/10 documented as of this encounter
--- OUTSIDE RECORDS SUMMARY | 2024-04-11 10:14 | XMS_ITS | Encounter Summary ---
Author Organization [facility] Address [address] [place] [address] Care Team Providers Care Anaesthesiologist Name Role Phone Pretty Avery MD Primary Care Provider [phone] Encounter Details Date Type Department Care Team (Latest Contact Info) Description 06/18/2018 9:36 EDT - 06/18/2018 23:59 EDT Hospital Encounter [facility] - [address] [address] Unknown, Provider, Discharge Disposition: Home or Self [...] Code Departure Means Destination Home or Self Prison documented in this encounter Plan of Treatment Not on file documented as of this encounter Visit Diagnoses Not on filedocumented in this encounter Care Teams Anaesthesiologist Relationship Specialty Start Date End Date Pretty Avery MD [address] [place] [address] PCP - General 06/05/10 documented as of this encounter
--- OUTSIDE RECORDS SUMMARY | 2024-04-11 10:14 | XMS_ITS | Encounter Summary ---
Author Organization [facility] Address [address] [place] [address] Care Team Providers Care Quarantine Officer Name Role Phone Pretty Avery MD Primary Care Provider [phone] Encounter Details Date Type Department Care Team (Latest Contact Info) Description 04/08/2018 9:44 EDT - 04/08/2018 23:59 EDT Hospital Encounter [facility] [address] [place] [address] Unknown, Provider, Discharge Disposition: Home or Self [...] Code Departure Means Destination Home or Self Snf documented in this encounter Plan of Treatment Not on file documented as of this encounter Visit Diagnoses Not on filedocumented in this encounter Care Teams Quarantine Officer Relationship Specialty Start Date End Date Pretty Avery MD [address] [place] [address] PCP - General 06/05/10 documented as of this encounter
--- OUTSIDE RECORDS SUMMARY | 2024-04-11 10:14 | XMS_ITS | Encounter Summary ---
Author Organization [facility] Address [address] [place] [address] Care Team Providers Care Nutrition Tech Name Role Phone Pretty Avery MD Primary Care Provider Encounter Details Date Type Department Care Team (Late st Contact Info) Description 08/23/2020 Lab Requisition [facility] Pathology & [place] [address] Outr Resulting Lab, Provider Social History Tobacco [...] rt-PCR Result NEGATIVE Negative 08/25/2020 8:37 EST [facility] Comment: 2019-novel Coronavirus (2019-nCoV) not detected [...] with CLIA regulations, [employer] [place] [employer] (CAP) guidelines (Dec 01, 2019), and FDA guidance (Nov 12, 2019). This test is only for use under the Food and Drug Administration's Emergency Use Authorization. Swab ENTIRE NASOPHARYNX / Unknown 08/22/2020 13:10 EST 08/23/2020 15:58 EST Provider Outr Resulting Lab MICROBIOLOGY - GENERAL ORDERABLES [facility] [place] * COVID-19 TESTING (08/22/2020 13:10 EST) COVID-19 rt-PCR Result NEGATIVE Negative 08/25/2020 10:01 EST [facility] Comment: 2019-novel Coronavirus (2019-nCoV) not detected [...] with CLIA regulations, [employer] [place] Pathologists (CAP) guidelines (Dec 01, 2019), and FDA guidance (Nov 12, 2019). This test is only for use under the Food and Drug Administration's Emergency Use Authorization. Performing Lab [facility] [place] 08/25/2020 10:01 EST [facility] Swab 08/22/2020 13:1 0 EST 08/23/2020 15:58 EST Provider Outr Resulting Lab MICROBIOLOGY - GENERAL ORDERABLES [facility] [address] [place] [address] [facility] [place] documented in this encounter Visit Diagnoses Not on filedocumented in this encounter Care Teams Nutrition Tech Relationship Specialty Start Date End Date Pretty Avery MD [address] [place] [address] PCP - General 06/05/10 documented as of this encounter
--- OUTSIDE RECORDS SUMMARY | 2024-04-11 10:14 | XMS_ITS | Continuity of Care Document ---
Author Organization [place] - [facility], [facility] Address [address] [place] [address] Assessment Encounter Date Assessment Date Assessment LastModified by Organization Details LastModified Time 04/04/2024 04/04/2024 The patient was seen and examined by myself in conjunction with Marisela Acuna, MELECIO student at [employer]. I interviewed, examined and I agree fully with the examination and management plans as outlined in note. khb The total time devoted to today's encounter, including both the swqi-ra-xucv time with the patient and/or family/caregiv er and bsg-zkwj-vg-fa ce time I personally spent is 45 [...] Details Appointments Nurse Visit 2023 08:00A M [place] Nursing Staff Not available Not available Not available Follow Up 2023 09:30A M ROSALBA MCKEON Not available Not available Not available Lab None recorded. Referral None recorded. Procedures None recorded. Surgeries None recorded. Imaging None recorded. Medication Orders rosuvasta tin 40 mg tablet 2023 024 [id number], [address] [place], [address], 04/04/2024 08:50:04 Patient TargetsNo targets recorded. Patient InstructionsNo instructions recorded. Reason for Referral Aquatic Habitat Biologist Referral fo r Herpes zoster Referring Physician: Altagracia Delcid [facility], Encounter Date: 09/19/2023 Senior Mechanical Development Engineer Referral for Herpes zoster Referring Physician: Altagracia Delcid [facility], Encounter Date: 09/19/2023 Physical Therapist Referral for Muscle spasm of cervical muscle of neck Referring Physician: Altagracia Delcid [facility], Encounter Date: 01/15/2024 Problems Name Status Onset Date Resolution Date Notes Provider Name and Address Organization Details Recorded Time Hypothyroidis m Active 201205/08/2020 - Comments only - Rosalba Mckeon STORE CONSULTANT - without medication. check next in January 02. Problem Code: E03.9; Problem Code Type: ICD-10; [address], [place], [address] , [facility] 4 14:32:58 Essential hypertension Active 201205/08/2020 - Comments only - Rosalba Mckeon STORE CONSULTANT - no desires to take her medication on a daily basis. Encouraged daily use of medication and check her BP routinely. Check BMP January 02. Problem Code: I10; Problem Code Type: ICD-10; [address], [place], [address] , [facility] 4 14:32:58 Atheroscleros is of coronary artery without angina pectoris Active 201305/08/2020 - Comments only - Rosalba Mckeon STORE CONSULTANT - No desires for statin. Encouraged daily use of her losartan. Continue ASA. encouraged to FU with cardiology. Problem Code: I25.10; Problem Code Type: ICD-Katya; [address], [place], [address] , [facility] 4 14:32:58 Hyperlipidemi a Active 201305/08/2020 - Comments only - Rosalba Mckeon STORE CONSULTANT - no desires for statin. Problem Code: E78.5; Problem Code Type: ICD-10; [address], [place], [address] , [facility] 4 14:32:58 Acute non-ST segment elevation myocardial infarction Active 2013 Problem Code: I21.4; Problem Code Type: ICD-10; [address], [facility] [id number] [place] [address] 4 14:32:58 Gastroesophag eal reflux disease without esophagitis Active 201505/08/2020 - Comments only - Rosalba Mckeon STORE CONSULTANT - with duodenitis and dysphagia. Encouraged daily PPI, she is not interested. Continue with diet mgmt. Problem Code: K21.9; Problem Code Type: ICD-10; [address], [place], [address] , [facility] 4 14:32:58 Exercise induced bronchospasm Active 201505/08/2020 - Comments only - Rosalba Mckeon STORE CONSULTANT - no complaints of. monitor for now. Problem Code: J45.990; Problem Code Type: ICD-10; [address], [place], [address] , [facility] 4 14:32:58 Dysphagia Active 201509/05/2016 - Comments only - Isa Estrada MD - Patient is having worsening dyspagia and I will refer her to GI for an EGD to make sure there is not significant pathology. Problem Code: R13.10; Problem Code Type: ICD-10; [address], [place], [address] , [facility] 4 14:32:58 Adult health examination Active 2015 Problem Code: Z00.00; Problem Code Type: ICD-10; ROSALBA MCKEON APRN [address], [facility] [address] , [facility] 4 14:32:58 Pain of right knee joint Completed 201602/16/2017 01/16/2017 - Comments only - Bell Chaviraenger DRIVEMATIC MACHINE OPERATOR - - I do not think [...] M25.561; Problem Code Type: ICD-10; Not Available [facility] 3 04:31:04 Duodenitis Active 2017 Problem Code: K29.80; Problem Code Type: ICD-10; ROSALBA MCKEON APRN [address], [place], [address] , [facility] 4 14:32:58 Fatigue Active 201707/26/2021 - Comments only - Rosalba Mckeon APRN - differentials include lyme disease, thyroid in origin, anemia. Check CBCD, iron stores, ferritin, TSH with R, tick and lyme panel. Problem Code: R53.83; Problem Code Type: ICD-10; [address], [place], [address] , [facility] 4 14:32:58 Migraine with aura Active 2018 Problem Code: G43.109; Problem Code Type: ICD-10; [address], [place], [address] , [facility] 4 14:32:58 Chronic sinusitis Completed 201808/26/2019 Problem Code: J32.9; Problem Code Type: ICD-10; Not Available [facility] 3 04:31:05 Eustachian tube disorder Completed 201809/14/2019 Problem Code: H69.90; Problem Code Type: ICD-10; Not Available [facility] 3 04:31:05 Screening for malignant neoplasm of breast Active 2019 Problem Code: Z12.39; Problem Code Type: ICD-10; ROSALBA MCKEON APRN [address], [place], [address] , [facility] 4 14:32:58 Angina pectoris Active 202006/14/2021 [...] ICD-10; ROSALBA MCKEON APRN [address], [place], [address] , [facility] 4 14:32:58 Carotid artery stenosis Active [...] it causes GI upset. [address], [facility] [address] , [facility] 4 14:32:58 Seasonal allergic rhinitis Active 2020 Problem Code: J30.2; Problem Code Type: ICD-10; [address], [facility] [address] , [facility] 4 14:32:58 Gestational diabetes mellitus Active 2020 Problem Code: O24.419; Problem Code Type: ICD-10; [address], [facility] [address] , [facility] 4 14:32:58 Family history of breast cancer Active 2020 Problem Code: Z80.3; Problem Code Type: ICD-10; [address], [facility] [address] , [facility] 4 14:32:58 Nicotine dependence Active 2020 Problem Code: Z87.891; Problem Code Type: ICD-Katya; [address], [facility] [address] , [facility] 4 14:32:58 Genuine stress incontinence Active 2020 Problem Code: N39.3; Problem Code Type: ICD-10; [address], [place] [address] , [facility] 4 14:32:58 Cramp in lower limb associated with sleep Active 2020 Problem Code: G47.62; Problem Code Type: ICD-10; [address], [place] [address] , [facility] 4 14:32:58 Raynaud's disease Active 2020 Problem Code: I73.00; Problem Code Type: ICD-10; [address], [address] 4 14:32:58 Aphasia Active 2020 Problem Code: R47.01; Problem Code Type: ICD-10; [address], [address] 4 14:32:58 Atypical squamous cells of undetermined significance on cervical Papanicolaou smear Active 2021 Problem Code: R87.610; Problem Code Type: ICD-10; [address], [address] 4 14:32:58 Cough Active 2021 Problem Code: R05.8; Problem Code Type: ICD-10; [address], [address] 4 14:32:58 Family history of malignant neoplasm of digestive organ Active 2022 Problem Code: Z80.0; Problem Code Type: ICD-10; [address], [address] 4 14:32:58 Screening for malignant neoplasm of colon Active 2022 Problem Code: Z12.11; Problem Code Type: ICD-10; [address], [facility] [address] , [facility] 4 14:32:58 Abdominal pain Active 2022 Problem Code: R10.9; Problem Code Type: ICD-10; [address], [place] [address] , [facility] 4 14:32:58 Altered bowel function Active 2022 Problem Code: R19.4; Problem Code Type: ICD-10; [address], [facility] [address] , [facility] 4 14:32:59 Acute subendocardia l infarction Completed 201306/10/2023 Problem Code: 410.72; Problem Code Type: ICD-9; Not Available [facility] 3 04:31:08 Posttraumatic headache Completed 201809/10/2021 Problem Code: G44.309; Problem Code Type: ICD-10; Not Available [facility] 3 04:31:08 Disorder of eye region Completed 201905/08/2020 Problem Code: H57.89; Problem Code Type: ICD-10; Not Available [facility] 3 04:31:08 Disorder of skin and/or subcutaneous tissue Completed 201502/19/2016 Problem Code: L98.9; Problem Code Type: ICD-10; Not Available [facility] 3 04:31:08 Dyspnea Completed 201502/19/2016 Problem Code: R06.09; Problem Code Type: ICD-10; Not Available [facility] 3 04:31:09 Neck pain Completed 201409/10/2021 Problem Code: M54.2; Problem Code Type: ICD-10; Not Available [facility] 3 04:31:09 Hypertensive disorder Completed 201206/10/2023 Not Available [facility] 3 04:31:09 Visual disturbance Completed 201709/12/2019 Problem Code: H53.9; Problem Code Type: ICD-10; Not Available [facility] 3 04:31:09 Headache Completed 201709/12/2019 Problem Code: R51; Problem Code Type: ICD-10; Not Available [facility] 3 04:31:09 Exposure to communicable disease Completed 201905/08/2020 Problem Code: Z20.828; Problem Code Type: ICD-10; Not Available [facility] 3 04:31:10 Constipation Completed 201705/08/2020 Problem Code: K59.00; Problem Code Type: ICD-10; Not Available [facility] 3 04:31:10 Exposure to sting or bite by insect Completed 202112/08/2022 Not Available [facility] 3 04:31:10 Traumatic or non-traumatic injury Completed 201605/08/2020 Problem Code: T14.8; Problem Code Type: ICD-10; Not Available [facility] 3 04:31:10 Sciatica Completed 201809/10/2021 Problem Code: M54.30; Problem Code Type: ICD-10; Not Available [facility] 3 04:31:10 Bleeding from nose Completed 202203/30/2023 Problem Code: R04.0; Problem Code Type: ICD-10; Not Available [facility] 3 04:31:11 Low back pain Completed 202009/10/2021 Problem Code: M54.5; Problem Code Type: ICD-10; Not Available [facility] 3 04:31:11 Pain in left foot Completed 202203/30/2023 Problem Code: M79.672; Problem Code Type: ICD-10; Not Available [facility] 3 04:31:11 Dizziness and giddiness Completed 202203/30/2023 Problem Code: R42; Problem Code Type: ICD-10; Not Available [facility] 3 04:31:11 Pain of right shoulder joint Completed 201909/10/2021 Problem Code: M25.511; Problem Code Type: ICD-10; Not Available [facility] 3 04:31:11 Chest pain Completed 201412/08/2022 Problem Code: R07.89; Problem Code Type: ICD-10; Not Available [facility] 3 04:31:12 Fever Completed 202112/08/2022 Problem Code: R50.9; Problem Code Type: ICD-10; Not Available [facility] 3 04:31:12 Exposure to communicable disease Completed 201909/10/2021 Problem Code: Z20.9; Problem Code Type: ICD-10; Not Available [facility] 3 04:31:12 Coronary arteriosclero sis Completed 201306/10/2023 Not Available [facility] 3 04:31:13 Abnormal weight gain Completed 202203/30/2023 Problem Code: R63.5; Problem Code Type: ICD-10; Not Available [facility] 3 04:31:13 Streptococcal sore throat Active 2022 ROSALBA MCKEON APRN [address], [place], [address] , [facility]. 4 14:32:58 Infection of tooth Active 2023 ROSALBA MCKEON APRN [address], [place], [address] , [facility]. 4 14:32:58 Oral infection Active 2023 ROSALBA MCKEON APRN [address], [place], [address] , [facility]. 4 14:32:58 Herpes zoster Active [address], [facility] [address] , [facility] 4 14:32:58 Post-herpetic polyneuropath y Active [address], [facility] [address] , [facility] 4 15:37:27 Itching of eye Active [address], [facility] [address] , [facility] 4 11:33:48 Muscle spasm of cervical muscle of neck Active [address], [facility] [address] , [facility] 4 16:37:40 Increased liver function Active [address], [facility] [address] , [facility] 4 04:54:49 Nonulcer dyspepsia Active [address], [facility] [address] , [facility] 4 08:26:01 Problem Notes None recorded. Medical Equipment None Reported. Allergies Allergen ID Allergen Name Allergen Category Reaction Reaction Severity Criticality Documentation Date Start Date Code Code System Note Provider Name and Address Organization Details Recorded Time 58833 lisinopri l medicatio n cough mild Not available 07/24/20232013 69393 RxNorm cough Aller gyCod e: '3140 76'; Aller gyNam e: 'RAJIV NOPRI L'; Aller gyCon ceptT ype: 'RX Norm' ; Not Available [facility] 3 16:14:44 Medications Name Sig Start Date [...] Updated DateTime 4 159.26 cm 22.3 kg/m2 39604.6 1 g 64 /min 128 mm[Hg] 82 mm[Hg] Sujatha Massey RN [facility] 4 08:18:55 Social History Question Answer Notes LastModified by Organizat ion Details LastModified Time Tobacco Smoking Status Former Smoker JAMAR MEJIA RN [facility], [facility] 08/21/2023 11:02:00 When Did You Quit Smoking? 16+yearssinc elastcigaret te [email or web address] Information not available 08/21/2023 What Was The Date Of Your Most Recent Tobacco Screening? 01/15/2024 [email or web address] Information not available 01/15/2024 Has Tobacco Cessation Counseling Been Provided? No [email or web address] Information not available 08/21/2023 Do You Or Have You Ever Used Any Other Forms Of Tobacco Or Nicotine? No [email or web address] Information not available 08/21/2023 Sex: Female Functional [...] Recorded Time Tdap 07/21/2019 completed Not Available [facility] 06:27:29 Td(adult) unspecified formulation 01/13/2005 completed Not Available [facility] 07/24/2023 06:27:29 COVID-19, mRNA, LNP-S, PF, 100 mcg/0.5mL dose or 50 mcg/0.25mL dose 07/13/2021 completed Not Available [facility] 07/24/20 06:27:29 COVID-19 vaccine, vector-nr, rS-Ad26, PF, 0.5 mL 11/30/2020 completed Not Available [facility] 07/24/2023 06:27:30 Past Encounters Encounter ID Performer Location Encounter Start Date Encounter Closed Date Diagnosis/Indication Diagnosis SNOMED-CT Code [id number] ROSALBA MCKEON [address] [address] 04/04/2024 08:05:40 04/04/2024 08:58:24 Atherosclerosis of coronary artery without angina pectoris 112305836805226 Nicotine dependence 5629 4008 Increased liver function 35504341 Nonulcer dyspepsia 32276 07 Health Concerns Section Related Observation LastModified by Organization Detai ls LastModified Time None Recorded Concern Status LastModified by Organization Details LastModified Time None Recorded Payers Encounter Date Sequence Insurance Name Policy Number Policy Horan Covered Member ID Horan Member ID Guarantor Name 04/04/2024 1 [facility] (MEDICAID) Isa Ro [id number] Isa Ro Notes Date Note Type Note Provider Name and Address Organization Details Recorded Time 04/04/2024 text/html HPI Notes: Is he re for follow-up hospital stay. Was [facility] [place] [facility]22.4 Discharged on 03/22/24 Discharge dx was acute ST elevation [place] due to occlusion of left anterior descending [...] 80mg daily CoQ10 supplementation Was referred to [facility] cardiology. has [facility] appt scheduled. She was having symptoms with coreg, this was stopped by oncall provider and switched back to metoprolol succ. BP had been 100/55 with coreg. She does admit that previously using metoprolol and her HR never raised up with activity and caused fatigue and had stopped. ROSALBA MCKEON, STORE CONSULTANT [address], [place], [address], [facility], [facility]. 04/04/2024 09:58:16 OBGyn Episode No OBEpisode recorded.
--- OUTSIDE RECORDS SUMMARY | 2024-04-11 10:14 | XMS_ITS | Referral Summary ---
Author Organization [facility] Address [address] [place] [address] Care Team Providers Care Materials Branch Chief Name Role Phone Pretty Avery MD Primary Care Provider [phone] Allergies No known active allergies Medications Medication [...] Date NSTEMI (non-ST elevated myocardial infarction) ( [facility]) 03/30/2014 Social History Tobacco Use Types [...] Advance Directives For more information, please contact: [phone] * Full Code (Latest Code Status on File) Date Activated Date Inactivated Comments 12/15/2014 9:53 12/15/2014 18:00 Question Answer Comments Reason for decision includes: Full code consistent with overall plan of care Who participated in the discussion? Patient * Full Code Date Activated Date Inactivated Comments 03/30/2014 20:42 04/01/2014 17:36 Care Teams Materials Branch Chief Relationship Specialty Start Date End Date Pretty Avery MD [address] [place] [address] PCP - General 06/05/10
--- OUTSIDE RECORDS SUMMARY | 2024-04-11 10:14 | XMS_ITS | Encounter Summary ---
Author Organization [facility] Address [address] [place] [address] Care Team Providers Care Process Engineering Technician Name Role Phone Pretty Avery MD Primary Care Provider [phone] Encounter Details Date Type Department Care Team (Latest Contact Info) Description 12/05/2015 12:19 EDT - 12/05/2015 23:59 EDT Hospital Encounter [address] [id number] Unknown, Provider, Discharge Disposition: Home or Self [...] Code Departure Means Destination Home or Self Nursing Home documented in this encounter Plan of Treatment Not on file documented as of this encounter Visit Diagnoses Not on filedocumented in this encounter Care Teams Process Engineering Technician Relationship Specialty Start Date End Date Pretty Avery MD [address] [place] [address] PCP - General 06/05/10 documented as of this encounter
--- OUTSIDE RECORDS SUMMARY | 2024-04-11 10:14 | XMS_ITS | Encounter Summary ---
Author Organization [facility] Address [address] [place] [address] Care Team Providers Care Architectural Engineering Teacher Name Role Phone Pretty Avery MD Primary Care Provider [phone] Encounter Details Date Type Department Care Team (Late st Contact Info) Description 06/24/2023 Lab Requisition [facility] Pathology & [place] [address] Outr Resulting Lab, Provider Social History Tobacco [...] Lyme Ab Negative Negative 06/25/2023 11:00 EDT [facility] Blood VENOUS BLOOD / Unknown 06/24/2023 9:02 EDT 06/24/2023 17:06 EDT Provider Outr Resulting Lab IMMUNOLOGY A ND SEROLOGY ORDERABLES [facility] [address] [place] [address] documented in this encounter Visit Diagnoses Not on filedocumented in this encounter Care Teams Architectural Engineering Teacher Relationship Specialty Start Date End Date Pretty Avery MD [address] [place] [address] PCP - General 06/05/10 documented as of this encounter
--- OUTSIDE RECORDS SUMMARY | 2024-04-11 10:14 | XMS_ITS | Encounter Summary ---
Author Organization [facility] Address [address] [place] [address] Care Team Providers Care Inspector Brake Lining Name Role Phone Pretty Avery MD Primary Care Provider [phone] Encounter Details Date Type Department Care Team (Latest Contact Info) Description 09/11/2021 Lab Requisition [facility] Pathology & Laboratory Medicine - [address] [address] Rosalba Archibald, REGIONAL RECRUITER [address] [address] Encounter for general adult medical examination without [...] Negative Negative 09/20/2021 15:45 EST [facility] Comment:No E6 or E7 mRNA is detected from HPV types 16,18,31,33,35,39,45,51,52,56,58,59,66, and 68 by dental therapist mediated amplification. Papanicolaou smear specimen (specimen) CERVIX UTERI STRUCTURE / Unknown 09/10/2021 9:15 EST 09/19/2021 14:21 EST Rosalba Arcihbald APRN MICROBIOLOGY - GE NERAL ORDERABLES [facility] [address] [place] [address] * PAP TEST (09/10/2021 9:15 EST) Specimens A. Cervix and/or Endocervix , ThinPrep Imaging System with Manual Evaluation 09/20/2021 15:45 EST [facility] Specimen Adequacy Satisfactory for Evaluation - transformation zone component present 09/20/2021 15:45 EST [facility] General Categorization Epithelial Cell Abnormality 09/20/2021 15:45 EST [facility] Descriptive Diagnosis Squamous Cell Abnormality - Atypical squamous cells, undetermined significance (ASC-US). 09/20/2021 15:45 EST [facility] Educational Comments [facility] recommends following ASCCP's 2012 Updated Consensus Guidelines for the Management of Abnormal Cervical Cancer Screening Tests and Cancer Precursors (JLGTD, 2013; 17(5):S1-S27). Consensus guidelines are available online at www.asccp.org. 09/20/2021 15:45 [facility] Attestation By the signature below, the attending physician certifies that they have personally conducted a gross and/or microscopic examination of the described specimens and rendered or confirmed the above diagnosis. 09/20/2021 15:45 [facility] at 1545 Clinical History See below 09/20/19 15:45 [facility] HPV The result for the Human Papillomavirus (HPV) Detection-High Risk Types is Negative. No E6 or E7 mRNA is detected from HPV types 16,18,31,33,35,3 9,45,51,52,56,58 ,59,66, and 68 by dental therapist mediated amplification.Te sting was performed on specimen [id number] and was resulted on 09/20/2021 1543 EST by CARMEN, LAB INSTRUMENT RESULTS IN 09/20/2021 15:45 [facility] Performing Lab [facility] 09/20/2021 15:45 [facility] Scanned Images 09/20/2021 15:45 [facility] Papanicolaou smear specimen (specimen) CERVIX UTERI STRUCTURE / Unknown 09/10/2021 9:15 EST 09/11/2021 9:41 EST Rosalba Archibald APRN PATHOLOGY ORDERAB LES [facility] [address] [place] [address] documented in this encounter Visit Diagnoses Diagnosis Encounter for general adult medical examination without abnormal findings Unspecified general medical examination Encounter for screening for malignant neoplasm of cervix Screening for malignant neoplasm of the cervix Encounter for gynecological examination (general) (routine) without abnormal findings documented in this encounter Care Teams Inspector Brake Lining Relationship Specialty Start Date End Date Pretty Avery MD [address] [place] [address] PCP - General 06/05/10 documented as of this encounter
--- OUTSIDE RECORDS SUMMARY | 2024-04-11 10:14 | XMS_ITS | Encounter Summary ---
Author Organization [facility] Address [address] [place] [address] Care Team Providers Care Microarray Specialist Name Role Phone Pretty Avery MD Primary Care Provider [phone] Encounter Details Date Type Department Care Team (Late st Contact Info) Description 06/18/2018 Results Only [facility] [phone] Marietta Mauricio, DO [address] [place] [address] Social History Tobacco Use Types [...] ? EZEQUIEL THOMAS ? Accession #: ? [id number] ? : ? 1965 (Age: 53) ??F [...] Meyers 06/19/2018 9:42 AM End of Report [facility] 06/18/2018 16:1 9 EDT 06/18/2018 16:19 EDT Marietta Mauricio DO PATHOLOGY ORDERABLES [facility] [address] [place] [address] documented in this encounter Visit Diagnoses Not on filedocumented in this encounter Care Teams Microarray Specialist Relationship Specialty Start Date End Date Pretty Avery MD [address] [place] [address] PCP - General 06/05/10 documented as of this encounter
--- OUTSIDE RECORDS SUMMARY | 2024-04-11 10:14 | XMS_ITS | Encounter Summary ---
Author Organization [facility] Address [address] [place] [address] Care Team Providers Care Reroller Hand Name Role Phone Pretty Avery MD Primary Care Provider [phone] Encounter Details Date Type Department Care Team (Late st Contact Info) Description 03/07/2022 Lab Requisition [facility] Pathology & Laboratory Medicine - [address] [address] Outr Resulting Lab, Provider Social History Tobacco [...] Priority Date/Time Associated Diagnosis Comments ZZCOVID-19 TEST [facility] PCR Today 03/06/2022 16:00 EDT COVID-19 TESTING Routine 03/06/2022 16:0 0 EDT documented in this encounter Results * COVID-19 TEST [facility] PCR (03/06/2022 16:00 EDT) Swab 03/06/2022 16:0 0 EDT 03/07/2022 22:03 EDT Provider Outr Resulting Lab MICROBIOLOGY - GENERAL ORDERABLES Performing Organization Address City/[facility]/ZIP Co de Phone Number [facility] [address] [place] [address] * COVID-19 TESTING (03/06/2022 16:00 EDT) COVID-19 rt-PCR Result Negative Negative 03/08/2022 12:05 EDT [facility] Comment: This test has not [...] performed using the camille SARS-CoV-2 assay ([employer] on the Camille 6800 System Performing Lab [place] [address] [facility] 03/08/2022 12:05 EDT [facility] Swab 03/06/2022 16:0 0 EDT 03/07/2022 22:03 EDT Provider Outr Resulting Lab MICROBIOLOGY - GENERAL ORDERABLES Performing Organization Address City/[facility]/ZIP Co de Phone Number [facility] [address] [place] [address] documented in this encounter Visit Diagnoses Not on filedocumented in this encounter Care Teams Reroller Hand Relationship Specialty Start Date End Date Pretty Avery MD [address] [place] [phone] PCP - General 06/05/10 documented as of this encounter
--- OUTSIDE RECORDS SUMMARY | 2024-04-11 10:14 | XMS_ITS | Encounter Summary ---
Author Organization [facility] Address [address] [place] [address] Care Team Providers Care Senior Clinical Research Associate Name Role Phone Pretty Avery MD Primary Care Provider [phone] Reason for Visit * Reason Onset Date Comments Post-op Problem 12/17/2014 Encounter Details Date Type Department Care Team (Late st Contact Info) Description 12/17/2014 Telephone [facility] Cardiology - [address] [place], [place] [id number] Alex Freed, [address] [address] Post-op Problem Social History Tobacco [...] Encounter - Alex Freed DO - 12/17/2014 3202 EDT Isa called on 12/16/14 with complaints [...] at 18:00. Alex Freed DO 12/17/2014 11:53 Glass Calibrator documented in this encounter Plan of Treatment Not on file documented as of this encounter Visit Diagnoses Not on filedocumented in this encounter Care Teams Senior Clinical Research Associate Relationship Specialty Start Date End Date Pretty Avery MD [address] [place] [phone] PCP - General 06/05/10 documented as of this encounter
--- OUTSIDE RECORDS SUMMARY | 2024-04-11 10:14 | XMS_ITS | Encounter Summary ---
Author Organization [facility] Address [address] [place] [address] Care Team Providers Care General Service Technician Name Role Phone Pretty Avery MD Primary Care Provider [phone] Encounter Details Date Type Department Care Team (Late st Contact Info) Description 12/05/2015 Results Only [facility] [phone] Ezequiel Estrada MD [address] [place] [phone] Social History Tobacco Use Types Packs/Day Years [...] ? EZEQUIEL THOMAS ? Accession #: ? [id number] ? : ? 1965 (Age: 50) ??F [...] the atypical cells from the stroma. ??(Dr. Mcgovern)/[facility] Document reviewed and electronically [...] May 12/06/2015 1:10 PM End of Report [facility] 12/05/2015 10:3 3 EDT 12/06/2015 10:33 EDT Ezequiel Estrada MD PATHOLOGY ORDERABLES [facility] [address] [place] [address] documented in this encounter Visit Diagnoses Not on filedocumented in this encounter Care Teams General Service Technician Relationship Specialty Start Date End Date Pretty Avery MD [address] [place] [address] PCP - General 06/05/10 documented as of this encounter
--- OUTSIDE RECORDS SUMMARY | 2024-04-11 10:14 | XMS_ITS | Encounter Summary ---
Author Organization [facility] Address [address] [place] [address] Care Team Providers Care Turbine Room Attendant Name Role Phone Pretty Avery MD Primary Care Provider [phone] Encounter Details Date Type Department Care Team (Late st Contact Info) Description 04/09/2018 Historical Results Only [facility] - Main [address] [address] Ganesh Philip MD [address] [place] [phone] Social History Tobacco Use Types Packs/Day [...] 0.000 - 0.034 ng/mL 04/09/2018 7:39 EDT [facility] Comment: Interpretation comments: [...] & BLOOD GAS ORDERABLES Performing Organization Address City/[facility]/ZIP Co de Phone Number [facility] * LIPASE (04/09/2018 6:35 EDT) Lipase 84 <251 U/L 04/09/2018 9:4 8 EDT [facility] 04/09/2018 6:35 EDT 04/09/2018 9:38 EDT Narrative [facility] - 04/09/2018 9:48 EDT AOT: 04/09/18 0938: LIP Ganesh Philip MD CHEMISTRY & BLOOD GAS ORDERABLES [facility] documented in this encounter Visit Diagnoses Not on filedocumented in this encounter Care Teams Turbine Room Attendant Relationship Specialty Start Date End Date Pretty Avery MD [address] [place] [address] PCP - General 06/05/10 documented as of this encounter
--- OUTSIDE RECORDS SUMMARY | 2024-04-11 10:14 | XMS_ITS | Clinical Summary ---
Author Organization [facility] Address [address] [place] [address] Care Team Providers Care Incoming Inspector Name Role Phone Pretty Avery MD Primary Care Provider [phone] Allergies No known active allergies Medications Medication [...] Date NSTEMI (non-ST elevated myocardial infarction) ( [facility]) 03/30/2014 Surgical History Surgery Date Site/Laterality Comments [...] Advance Directives For more information, please contact: [phone] * Full Code (Latest Code Status on File) Date Activated Date Inactivated Comments 12/15/2014 9:53 12/15/2014 18:00 Question Answer Comments Reason for decision includes: Full code consistent with overall plan of care Who participated in the discussion? Patient * Full Code Date Activated Date Inactivated Comments 03/30/2014 20:42 04/01/2014 17:36 Care Teams Incoming Inspector Relationship Specialty Start Date End Date Pretty Avery MD [address] [place] [address] [facility] - General 06/05/10
--- OUTSIDE RECORDS SUMMARY | 2024-04-11 10:14 | XMS_ITS | Encounter Summary ---
Author Organization [facility] Address [address] [place] [address] Care Team Providers Care Elementary Reading Specialist Name Role Phone Pretty Avery MD Primary Care Provider [phone] Encounter Details Date Type Department Care Team (Late st Contact Info) Description 02/15/2020 Lab Requisition [facility] Pathology & Laboratory Medicine - [address] [address] Outr Resulting Lab, Provider Social History Tobacco [...] - BROAD COVID TEST (02/15/2020 13:38 EDT) [facility] COVID-19 rt-PCR Result NEGATIVE Negative 02/17/2020 10:45 EDT [facility] Comment: 2019-novel Coronavirus (2019-nCoV) not [...] in accordance with CLIA regulations, [employer] (CAP) guidelines (Dec 01, 2019), and FDA guidance (Nov 12, 2019). This test is only for use under the Food and Drug Administration's Emergency Use Authorization. Swab ENTIRE NASOPHARYNX / Unknown 02/15/2020 13:38 EDT 02/15/2020 21:00 EDT Provider Outr Resulting Lab MICROBIOLOGY - GENERAL ORDERABLES [facility] [place], [place] * COVID-19 TESTING (02/15/2020 13:38 EDT) COVID-19 rt-PCR Result NEGATIVE Negative 02/17/2020 12:54 EDT [facility] Comment: 2019-novel Coronavirus (2019-nCoV) not [...] in accordance with CLIA regulations, [employer] (CAP) guidelines (Dec 01, 2019), and FDA guidance (Nov 12, 2019). This test is only for use under the Food and Drug Administration's Emergency Use Authorization. Performing Lab [facility] 02/17/2020 12:54 EDT [facility] Swab ENTIRE NASOPHARYNX / Unknown 02/15/2020 13:38 EDT 02/15/2020 21:00 EDT Provider Outr Resulting Lab MICROBIOLOGY - GENERAL ORDERABLES [facility] [address] [place] [address] [facility] [place] documented in this encounter Visit Diagnoses Not on filedocumented in this encounter Care Teams Elementary Reading Specialist Relationship Specialty Start Date End Date Pretty Avery MD [address] [place] [address] PCP - General 06/05/10 documented as of this encounter
--- OUTSIDE RECORDS SUMMARY | 2024-04-11 10:14 | XMS_ITS | Encounter Summary ---
Author Organization [facility] Address [address] [place] [address] Care Team Providers Care Stitch Rubber Name Role Phone Pretty Avery MD Primary Care Provider Encounter Details Date Type Department Care Team (Late st Contact Info) Description 07/26/2021 Lab Requisition [facility] Pathology & [place] [address] Outr Resulting Lab, Provider Social History Tobacco [...] Lyme Ab Negative Negative 07/29/2021 9:57 EST [facility] Blood VENOUS BLOOD / Unknown 07/26/2021 10:55 EST 07/26/2021 21:29 EST Provider Outr Resulting Lab IMMUNOLOGY A ND SEROLOGY ORDERABLES Performing Organization Address City/State/[facility] Co de Phone Number [facility] [address] [place] [address] documented in this encounter Visit Diagnoses Not on filedocumented in this encounter Care Teams Stitch Rubber Relationship Specialty Start Date End Date Pretty Avery MD [address] [place] [address] PCP - General 06/05/10 documented as of this encounter
--- OUTSIDE RECORDS SUMMARY | 2024-04-11 10:15 | XMS_ITS | Encounter Summary ---
Author Organization [facility] Address [address] [place] [address] Care Team Providers Care Websphere Architect Name Role Phone Pretty Avery MD Primary Care Provider [phone] Encounter Details Date Type Department Care Team (Latest Contact Info) Description 06/06/2010 18:54 EDT - 06/06/2010 23:59 EDT Hospital Encounter [address] [address] Pretty Avery MD [address] [place] [address] Discharge Disposition: Auto Discharge Social History Tobacco [...] on filedocumented in this encounter Care Teams Websphere Architect Relationship Specialty Start Date End Date Pretty Avery MD [address] [place] [phone] PCP - General 06/05/10 documented as of this encounter
--- OUTSIDE RECORDS SUMMARY | 2024-04-11 10:15 | XMS_ITS | Encounter Summary ---
Author Organization [facility] Address [address] [place] [address] Care Team Providers Care Online Activist Name Role Phone Unavailable Primary Care Provider Unavailabl e Encounter Details Date Type Department Care Team (Late st Contact Info) Description 04/29/2010 Results Only [address] [address] Pretty Avery MD [address] [place] [phone] Social History Tobacco Use Types Packs/Day Years [...] ? EZEQUIEL THOMAS ? Accession #: ? [id number] ? : ? 1965 (Age: 45) ??F [...] Avery MD PATHOLOGY ORDERABLES [facility] [address] [place] [address] documented in this encounter Visit Diagnoses Not on filedocumented in this encounter
--- OUTSIDE RECORDS SUMMARY | 2024-04-11 10:15 | XMS_ITS | Encounter Summary ---
Author Organization [facility] Address [address] [place] [address] Care Team Providers Care Recreation Therapy Teacher Name Role Phone Unavailable Primary Care Provider Unavailabl e Encounter Details Date Type Department Care Team (Late st Contact Info) Description 04/30/2010 Results Only [facility] Medicine [address] [address] Pretty Avery MD [address] [place] [phone] Social History Tobacco Use Types Packs/Day Years [...]
--- OUTSIDE RECORDS SUMMARY | 2024-04-11 10:15 | XMS_ITS | Encounter Summary ---
Author Organization [facility] Address [facility] [place] [address] Care Team Providers Care Trace Clerk Name Role Phone None Primary Care Provider Unavailabl e Encounter Details Date Type Department Care Team (Late st Contact Info) Description 03/27/2024 Telephone Cardiology at [address] [phone] Collins Yanes PA [facility] [place] [address] Social History Tobacco Use Types Packs/Day Years Used Date Smoking Tobacco: Former Smokeless Tobacco: Never Alcohol Use Standard Drinks/Week Comments Yes 14 (1 standard drink = 0.6 oz pu re alcohol) [facility] Utilities Answer Date Recorded In the [...] any time in the past 12 m [facility], were you homeless or living in a custodial (including now)? No 03/21/2024 IPV Inpatient Questions [...] encounter Miscellaneous Notes * Addendum Note - Collins Yanes PA - 03/27/2024 11:06 AM EDTAddended by: COLLINS YANES on: 03/27/2024 11:06 AM Modules accepted: Orders * Telephone Encounter - Collins Yanes PA - 03/27/2024 10:39 AM EDT Received page from color printer operator. Isa called in from home this morning. Attempted to call back x2. Left VM encouraging her to call back if cardiology support still needed. Collins Yanes PA-C ADDENDUM: Got a hold of [...] She was in agreement with this plan. Collins Yanes PA-C documented in this encounter Plan of Treatment Upcoming Encounters Date Type Department Care Team (Late st Contact Info) Description 05/09/2024 10:40 AM EDT Office Visit Cardiology at [address] [phone] Herlinda Weaver PA [facility] [address] documented as of this encounter Visit Diagnoses Not on filedocumented in this encounter Care Teams Trace Clerk Relationship Specialty Start Date End Date None None PCP - General 03/19/24 documented as of this encounter
--- OUTSIDE RECORDS SUMMARY | 2024-04-11 10:15 | XMS_ITS | Encounter Summary ---
Author Organization [facility] Address [address] [place] [address] Care Team Providers Care Receivable Manager Name Role Phone Unavailable Primary Care Provider Unavailabl e Encounter Details Date Type Department Care Team (Late st Contact Info) Description 05/15/2010 Results Only [facility] - [facility] [address] [place], [place] [id number] Jake Sabillon FNP [address] [place], [place] [phone] Social History Tobacco Use Types Packs/Day Years [...] ? EZEQUIEL THOMAS ? Accession #: ? [id number] ? : ? 1965 (Age: 45) ??F [...] [facility] 05/15/2010 05/17/2010 Jake Sabillon PLATE MOLDER PATHOLOGY ORDERABLES [facility] [address] [place] [address] documented in this encounter Visit Diagnoses Not on filedocumented in this encounter
--- OUTSIDE RECORDS SUMMARY | 2024-04-11 10:15 | XMS_ITS | Encounter Summary ---
Author Organization [facility] Address [address] [place] [address] Care Team Providers Care Chronic Condition Nurse Name Role Phone Pretty Avery MD Primary Care Provider [phone] Reason for Referral * Consult (Routine) - Closed Specialty Diagnoses / Procedures Referred By Contac t Referred To Contact Diagnoses NSTEMI (non-ST elevated myocardial infarction) ([facility]) S/P coronary artery stent placement Yesy Manuel NP [address] [place] [id number] Alex Soto MD [address] [place] [id number] Referral ID Status Reason Start Date Expiration Date V isits Requested Visits Authorized [id number] Closed Specialty Services Required 03/31/2014 1 1 Question Answer Reason for Request: post NSTEMI post PCI, CAD Scheduling Comments (optional ? describe specific scheduling needs if applicable): 1 month Expected Discharge Date (Inpatient Only): 04/01/2014 Comments Please schedule in [facility] cardiology clinic with Dr Alex Soto or next available orthopedically impaired teacher at that clinic. Office in [place] [phone]; cardiology clinic in [facility] [phone] * Consult (Routine) - Closed Specialty Diagnoses / Procedures Referred By Contac t Referred To Contact Cardiac Rehabilitation Diagnoses NSTEMI (non-ST elevated myocardial infarction) ([facility]) S/P coronary artery stent placement Yesy Manuel NP [address] [facility] [address] [place] [address] Referral ID Status Reason Start Date Expiration Date V isits Requested Visits Authorized [id number] Closed Specialty Services Required 03/31/2014 1 1 Question Answer Reason for Request: post NSTEMI, post pci, CAD Scheduling Comments (optional ? describe specific scheduling needs if applicable): 1 week Expected Discharge Date (Inpatient Only): 04/01/2014 Comments Please refer to [facility] in [facility] Encounter Details Date Type Department Care Team (Late st Contact Info) Description 03/30/2014 20:10 EDT - 04/01/2014 15:30 EDT Hospital Encounter [facility] Cardiac/Telemetry Unit [address], [place] [address] Waqas Yao MD [address] [facility] 1 [place] [id number] NSTEMI (non-ST elevated myocardial infarction) ([facility]) (Primary Dx); S/P coronary artery stent placement [...] female with h/o 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 Her EKG showed non-specific ST changes and trops elevated at 0.179. She was transferred to [facility] for NSTEMI. She was started on heparin gtt, ASA, atovastatin, metoprolol, and ticagelor load. Heparin was weaned over the night. In the morning she had 2 more episodes of chest pain, and given SL nitro x2, whichimproved pain. She was later taken for [facility] after a discussion of the need to be on blood thinning medications for 12 months if a stent was to be placed. The patient agreed. Her [facility] had culprit lesionin LAD, which was [...] Consult/Follow Up Cardiac Rehabilitation Please refer to [facility] in [facility] Reason for Request: post NSTEMI, post pci, CAD Expected Discharge Date (Inpatient Only): 04/01/2014 Scheduling Time Frame: 1 week Authorizing Provider: Yesy Manuel NP Amb Consult/Follow Up Cardiology Please schedule in [facility] cardiology clinic with Dr Alex Soto or next available orthopedically impaired teacher at that clinic. Office in [place] [phone]; cardiology clinic in [facility] [phone] Reason for Request: post NSTEMI post PCI, [...] up with cardiology in 4-6 weeks at [facility] Please continue your cardiac medications, [...] weeks. * Tali Jacobs MD - 03/31/2014 8879 EDT Cardiology Post Procedure Note Date of [...] case management office. Quyen Barrett RN, CM pager#[phone] * Yesy Manuel NP - 03/31/2014 1308 EDT Ticagrelor twice daily without interruption x 1 year reviewed with patient and she verbalizes understanding. Cardiac rehab reviewed with patient and the patient is willing to attend at [facility]. Referral sent and written material given to patient.Follow up has been requested with Dr Alex Soto in cardiology clinic, [facility]. resource efficiency manager contacted for Brilanta coverage. 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 Patient's car is in [place] currently. Patient Goals: No other needs at [...] relived with rest. She was taken to [facility] and treated with nitro and aspirin. The patient experienced some relief with nitro. EKG showed non specific st changes and trops were elevated. She was transferredto [facility] for management. Currently with the nitro gtt [...] clinical course Shahid Rayo MD Pager # [phone] 03/30/2014 21:10 Attestation statement::I have seen and [...] artery Procedure: She was brought to the [facility] Cardiac Catheterization Laboratory forthe procedure: Diagnostic coronary/graft [...] of Care - Robin Johnson - 03/31/2014 0467 EDT Problem: CIRCULATORY STATUS Goal: Patient Has [...] Care - Cuauhtemoc Berg RN - 03/31/2014 1988 EDT Problem: CIRCULATORY STATUS Goal: Patient Has Stable Vital Signs And Fluid Balance Outcome: Ongoing D: Patient arrived to [place] [address]. Vital signs noted, and tele applied. Patient [...] Referral Routine NSTEMI (non-ST elevated myocardial infarction) ([facility]) S/P coronary artery stent placement Ordered: 03/31/2014 AMB CONS/FOLLOW UP CARDIOLOGY Outpatient Referral Routine NSTEMI (non-ST elevated myocardial infarction) ([facility]) S/P coronary artery stent placement Ordered: 03/31/2014 [...] 9:34 EST) 09/26/2015 9:34 EST Scan 2 Vp Customer Development PROCEDURE/MINOR SHAYY GICAL ORDERABLES * ECG REPORT - SCANNED (04/06/2014 13:00 EDT) 04/06/2014 13:0 0 EDT Scan 2 Vp Customer Development PROCEDURE/MINOR SHAYY GICAL ORDERABLES * ECG REPORT - SCANNED (04/06/2014 13:00 EDT) 04/06/2014 13:0 0 EDT Scan 2 Vp Customer Development PROCEDURE/MINOR SHAYY GICAL ORDERABLES * INVASIVE CARDIOLOGY REPORT-SCANNED (04/06/2014 13:00 EDT) 04/06/2014 13:0 0 EDT Scan 2 Vp Customer Development PROCEDURE/MINOR SHAYY GICAL ORDERABLES * ECG REPORT - SCANNED (04/05/2014 7:12 EDT) 04/05/2014 7:12 EDT Scan 2 Vp Customer Development PROCEDURE/MINOR SHAYY GICAL ORDERABLES * ECG REPORT - SCANNED (04/04/2014 11:58 EDT) 04/04/2014 11:5 8 EDT Scan 2 Vp Customer Development PROCEDURE/MINOR SHAYY GICAL ORDERABLES * ECG REPORT - SCANNED (04/04/2014 11:56 EDT) 04/04/2014 11:5 6 EDT Scan 2 Vp Customer Development PROCEDURE/MINOR SHAYY GICAL ORDERABLES * (ABNORMAL) DIFFERENTIAL [...] PF4 ORD ERABLES [facility] [address] [place] [address] * HEMAGRAM (04/01/2014 5:50 EDT) WBC 11.20 [...] ORD ERABLES Performing Organization Address [facility] de Phone Number [facility] [address] [place] [address] * PTT (04/01/2014 5:50 EDT) PTT 27 26 - 37 secs [facility] Comment:Therapeutic Heparin range: 65-100 seconds Blood specimen (specimen) 04/01/2014 5:50 EDT 04/01/2014 6:36 EDT Shahid Rayo MD HEMATOLOGY & PF4 ORD ERABLES Performing Organization Address [facility] Phone Number [facility] [address] [place] [address] * CREATININE (04/01/2014 5:50 EDT) Creatinine 0.69 0.52 - 1.04 mg/dl [facility] GFR, Calculated >60 >60 ml/min/1.7 3m2 [facility] Blood specimen (specimen) 04/01/2014 5:50 EDT 04/01/2014 6:36 EDT Shahid Rayo MD CHEMISTRY & BLOOD GA S ORDERABLES Performing Organization Address [facility] de Phone Number [facility] [address] [place] [address] * BUN (04/01/2014 5:50 EDT) BUN 10 10 - 26 mg/dl [facility] Blood specimen (specimen) 04/01/2014 5:50 EDT 04/01/2014 6:36 EDT hSahid Rayo MD CHEMISTRY & BLOOD GA S ORDERABLES Performing Organization Address [facility] Co de Phone Number [facility] [address] [place] [address] * ELECTROLYTES (04/01/2014 5:50 EDT) Sodium 138 [...] S ORDERABLES Performing Organization Address [facility] Co de Phone Number [facility] [address] [place] [address] * CK MB WITH TOTAL CK (04/01/2014 5:50 EDT) CK 35 30 - 135 U/L [facility] MB 1.58 <2.95 ng/ml [facility] Blood specimen (specimen) 04/01/2014 5:50 EDT 04/01/2014 6:36 EDT Yesy Manuel NP CHEMISTRY & BLOOD GA S ORDERABLES Performing Organization Address [facility] Co de Phone Number [facility] [address] [place] [address] * CK MB WITH TOTAL CK (03/31/2014 22:14 EDT) CK 42 30 - 135 U/L [facility] MB 1.72 <2.95 ng/ml [facility] Blood specimen (specimen) 03/31/2014 22:14 EDT 03/31/2014 22:19 EDT Shahid Rayo MD CHEMISTRY & BLOOD GA S ORDERABLES Performing Organization Address City/[facility]/ZIP Co de Phone Number [facility] [address] [place] [address] * (ABNORMAL) TROPONIN I (03/31/2014 14:32 EDT) Troponin I (ng/mL) 0.136(H) <0.034 ng/ml [facility] Blood specimen (specimen) 03/31/2014 14:32 EDT 03/31/2014 15:09 EDT Shahid Rayo MD CHEMISTRY & BLOOD IA S ORDERABLES Performing Organization Address [facility] de Phone Number [facility] [address] [place] [address] * CK MB WITH TOTAL CK (03/31/2014 14:32 EDT) CK 62 30 - 135 U/L [facility] MB 2.04 <2.95 ng/ml [facility] Blood specimen (specimen) 03/31/2014 14:32 EDT 03/31/2014 15:09 EDT Shahid Rayo MD CHEMISTRY & BLOOD GA S ORDERABLES Performing Organization Address [facility] de Phone Number [facility] [address] [place] [address] * EKG 12-LEAD (03/31/2014 13:30 EDT) 03/31/2014 13:3 0 EDT Narrative [facility] EKG - 04/04/2014 7:56 EDT ?[facility] ? Test Date: ?2014-03-31 Pat Name: ? ISA RO ?Department: ?? [facility] ? Room: ? MW511 Gender: ? F ?Lbd Teacher: ?? [id number] : ?1965 ? Requested By: YESY MANUEL MARKETING STRATEGY ANALYST Order Number: [id number] ? Reading MD: ?? BRYAN PURDY MD ? Measurements Intervals ?[place] ? Rate: ? 50 ? P: ?57 [place]: ? 154 ?QRS: ?29 QRSD: ? 90 [...] Date: 2014-03-31 Pat Name: ISA RO Department: [place] [address] Room: [facility] Gender: F Lbd Teacher: [id number] : 1965 Requested By: YESY MANUEL NP Order Number: [id number] Reading MD: BRYAN PURDY MD Measurements Intervals [place] Rate: 50 P: 57 [place]: 154 QRS: 29 QRSD: 90 T: 38 [...] 5 EDT Narrative 03/31/2014 13:08 EDT Cardiology [address] [place] [address] Catheterization Laboratory Study Patient: Isa Ro ? Study Date: ?03/31/2014 ? Accession #: ? [id number] : ? 1965 Referring Physician: Dilip Mahajan [...] successfully achieved. SUMMARY: 1. HPI and indications: Lnj-XO-jxgdojul myocardial infarction. 2. LAD: Proximal vessel lesion: [...] 4. Continue aspirin, at 81mgPOdaily, indefinitely. HISTORY: Xat-UW-puqoljfv myocardial infarction. ??Functional status: ?? CCS class [...] radial artery access. A 5Fr/10 cm Terumo Weston Sheath Radial sheath was ?? advanced into [...] MD 2014-03-31 13:08 Procedure Note 03/31/[address] [place] [address] Catheterization Laboratory Study Patient: Isa Ro Study [...] successfully achieved. SUMMARY: 1. HPI and indications: Ymq-SY-mmnhfjyr myocardial infarction. 2. LAD: Proximal vessel lesion: [...] Add tricagrelor (Brilinta), loading dose 180mgPO, standing [id number], for 12mon. 4. Continue aspirin, at 81mgPOdaily, indefinitely. HISTORY: Gci-DK-sckyemut myocardial infarction. Functional status: CCS class IV [...] radial artery access. A 5Fr/10 cm Terumo Weston Sheath Radialsheath was advanced into the vessel. [...] 2. Vessel setup was performed. A 180 Whistle wire was used to crossthe lesion. 3. [...] EDT *Interpreting Group:* *[facility]* [address] [place] [address] *STUDY CONCLUSIONS* Summary: ?? Left ventricle: The [...] ATTENDING ?Waqas Yao MD REFERRING ?Pretty Avery* CNC OPERATOR ??Tracey Black PERFORMING ?? [facility], FELLOW ? Abiodun Velez ORDERING ? Joel Parker REFERRING ?Joel Parker j *PROCEDURE DATA* Procedure information: ??This study was interpreted by [facility] at [facility]. ??Study status: ??Routine. Transthoracic echocardiography. ??M-mode, complete 2D, complete spectral Doppler, and color Doppler. A Transthoracic Echocardiogram was performed. Scanning was performed from the parasternal, apical, subcostal, and suprasternal notch acoustic windows. Images were obtained using a Shubham IE33 3 cardiac ultrasound machine. Image quality was adequate. ??Study completion: ??The patient tolerated the procedure well. *INDICATIONS AND HISTORY* Indications: ?? NE - nontransmural - acute 410.71. *CARDIAC ANATOMY* [...] 03/31/2014 11:13 Procedure Note 03/31/2014 *Interpreting Group:* *[facility]* [address] [place] [address] *STUDY CONCLUSIONS* Summary: Left ventricle: The cavity [...] ATTENDING Waqas Yao MD REFERRING Pretty Avery* CNC OPERATOR Tracey Black PERFORMING Fa, FELLOW Abiodun Velez ORDERING Joel Parker REFERRING Joel Parker j *PROCEDURE DATA* Procedure information: This study was interpreted by [facility]. Study status: Routine.Transthoracic echocardiography. M-mode, complete 2D, complete spectral Doppler, andcolor Doppler. A Transthoracic Echocardiogram was performed. Scanning wasperformed from the parasternal, apical, subcostal, and suprasternal notch acoustic windows. Images were obtained using a Shubham IE33 3 cardiac ultrasoundmachine. Image quality was adequate. Study completion: The patient tolerated the procedure well. *INDICATIONS AND HISTORY* Indications: NE - nontransmural - acute 410.71. *CARDIAC ANATOMY* [...] ? Room: ? MW511 Gender: ? F ?Lbd Teacher: ?? [id number] : ?1965 ? Requested By: WAQAS YAO MD Order Number: [id number] ? Reading MD: ?? LYDIA DALTON MD ? Measurements Intervals ?[place] ? Rate: ? 59 ? P: ?58 [place]: ? 154 ?QRS: ?41 QRSD: ? 88 [...] Date: 2014-03-31 Pat Name: ISA SHEPHERDISAI Department: [place] [address] Room: MW511 Gender: F Lbd Teacher: [id number] : 1965 Requested By: WAQAS YAO MD Order Number: [id number] Reading MD: LYDIA DALTON MD Measurements Intervals [place] Rate: 59 P: 58 [place]: 154 QRS: 41 QRSD: 88 T: 43 [...] & PF4 ORD ERABLES Performing Organization Address City/[facility]/ZIP Co de Phone Number [facility] [address] [place] [address] * HEMAGRAM (03/31/2014 6:43 EDT) Pathologist [facility] WBC 8.21 4.0 - 12.4 K/cmm [facility] RBC 4.44 3.86 - 5.04 M/cmm [facility] Hemoglobin 13.0 11.6 - 15.2 gm/dl [facility] HCT 37.4 34.9 - 44.4 % [facility] MCV 84 81 - 98 [...] & PF4 ORD ERABLES Performing Organization Address City/[facility] Co de Phone Number [facility] [address] [place] [address] * (ABNORMAL) PTT (03/31/2014 6:43 EDT) Pathologist [facility] PTT 51(H) 26 - 37 secs [facility] Comment:Therapeutic Heparin range: 65-100 seconds Blood specimen (specimen) 03/31/2014 6:43 EDT 03/31/2014 7:01 EDT Shahid Rayo MD HEMATOLOGY & PF4 ORD ERABLES Performing Organization Address [facility] de Phone Number [facility] [address] [place] [address] * CREATININE (03/31/2014 6:43 EDT) Pathologist [facility] Creatinine 0.70 0.52 - 1.04 mg/dl [facility] GFR, Calculated >60 >60 ml/min/1.7 3m2 [facility] Blood specimen (specimen) 03/31/2014 6:43 EDT 03/31/2014 7:01 EDT Shahid Rayo MD CHEMISTRY & BLOOD GA S ORDERABLES Performing Organization Address [facility] de Phone Number [facility] [address] [place] [address] * BUN (03/31/2014 6:43 EDT) BUN 15 10 - 26 mg/dl [facility] Blood specimen (specimen) 03/31/2014 6:43 EDT 03/31/2014 7:01 EDT Shahid Rayo MD CHEMISTRY & BLOOD GA S ORDERABLES Performing Organization Address [facility] Phone Number [facility] [address] [place] [address] * ELECTROLYTES (03/31/2014 6:43 EDT) Sodium 139 [...] S ORDERABLES Performing Organization Address [facility] Phone Number [facility] [address] [place] [address] * LIPID PROFILE (INCLUDES CHOLESTEROL, TRIGLYCERIDES, HDL, LDL) (03/31/2014 6:43 EDT) Cholesterol 152 mg/dl [facility] Comment: Desirable:<200 Borderline High:200-239 High:>zy=668 Triglycerides 100 mg/dl [facility] Comment: Normal:<150 Borderline High:150-199 High:200-499 Very High:>mi=659 HDL 50 mg/dl [facility] Comment: Low:<40 Normal:40-60 Desirable: >60 LDL, Calculated 82 mg/dl [facility] Comment: Optimal:<100 Near Optimal:100-129 Borderline High:130-159 High:160-189 Very High:>xa=382 Chol/HDL Ratio 3.0 [facility] Fasting? Unknown [facility] Non HDL Cholesterol 102 mg/dl [facility] Comment: Desirable:<130 Borderline:130-159 High: 160-189 Very High: >if=909 Blood specimen (specimen) 03/31/2014 6:43 EDT 03/31/2014 7:01 EDT Shhaid Rayo MD CHEMISTRY & BLOOD GA S ORDERABLES Performing Organization Address [facility] Co de Phone Number [facility] [address] [place] [address] * (ABNORMAL) TROPONIN I (03/31/2014 6:43 EDT) Troponin I (ng/mL) 0.180(H) <0.034 ng/ml [facility] Blood specimen (specimen) 03/31/2014 6:43 EDT 03/31/2014 7:01 EDT Shahid Rayo MD CHEMISTRY & BLOOD GA S ORDERABLES Performing Organization Address [facility] Co de Phone Number [facility] [address] [place] [address] * CK MB WITH TOTAL CK (03/31/2014 6:43 EDT) CK 55 30 - 135 U/L [facility] MB 2.51 <2.95 ng/ml [facility] Blood specimen (specimen) 03/31/2014 6:43 EDT 03/31/2014 7:01 EDT Shahid Rayo MD CHEMISTRY & BLOOD GA S ORDERABLES Performing Organization Address [facility] Co de Phone Number [facility] [address] [place] [address] * HEMOGLOBIN A1C (03/31/2014 6:43 EDT) Hemoglobin [...] S ORDERABLES Performing Organization Address [facility] Co de Phone Number [facility] [address] [place] [address] * HEMAGRAM (03/30/2014 22:23 EDT) WBC 9.80 [...] PF4 ORDERABLES Performing Organization Address [facility] de Phone Number [facility] [address] [place] [address] * INPATIENT ADD-ON (03/30/2014 22:00 EDT) Pathologist [facility] Tests to be added HEMAGRAM [facility] Number for problems MW5 [facility] Accession number [id number] [facility] 03/30/2014 22:0 0 EDT 03/30/2014 22:10 EDT Shahid Rayo MD HEMATOLOGY & PF4 ORD ERABLES Performing Organization Address [facility] Co de Phone Number [facility] [address] [place] [address] * CK MB WITH TOTAL CK (03/30/2014 21:01 EDT) [facility] CK 59 30 - 135 U/L [facility] MB 2.26 <2.95 ng/ml [facility] Blood specimen (specimen) 03/30/2014 21:01 EDT 03/30/2014 21:10 EDT Shahid Rayo MD CHEMISTRY & BLOOD GA S ORDERABLES Performing Organization Address [facility] Co de Phone Number [facility] [address] [place] [address] * (ABNORMAL) TROPONIN I (03/30/2014 21:01 EDT) [facility] Troponin I (ng/mL) 0.179(H) <0.034 ng/ml [facility] Blood specimen (specimen) 03/30/2014 21:01 EDT 03/30/2014 21:10 EDT Shahid Rayo MD CHEMISTRY & BLOOD GA S ORDERABLES Performing Organization Address [facility] de Phone Number [facility] [address] [place] [address] * CREATININE (03/30/2014 21:01 EDT) [facility] Creatinine 0.74 0.52 - 1.04 mg/dl [facility] GFR, Calculated >60 >60 ml/min/1.7 3m2 [facility] Blood specimen (specimen) 03/30/2014 21:01 EDT 03/30/2014 21:10 EDT Shahid Rayo MD CHEMISTRY & BLOOD GA S ORDERABLES Performing Organization Address [facility] Phone Number [facility] [address] [place] [address] * BUN (03/30/2014 21:01 EDT) BUN 13 10 - 26 mg/dl [facility] Blood specimen (specimen) 03/30/2014 21:01 EDT 03/30/2014 21:10 EDT Shahid Rayo MD CHEMISTRY & BLOOD GA S ORDERABLES Performing Organization Address [facility] de Phone Number [facility] [address] [place] [address] * ELECTROLYTES (03/30/2014 21:01 EDT) Sodium 139 136 - 145 mEq/L [facility] Potassium 3.7 3.5 - 5.0 mEq/L [facility] Chloride 105 96 - 110 mEq/L [facility] CO2 24 24 - 32 mEq/L [facility] Blood specimen (specimen) 03/30/2014 21:01 EDT 03/30/2014 21:10 EDT Shahid Rayo MD CHEMISTRY & BLOOD GA S ORDERABLES Performing Organization Address [facility] de Phone Number [facility] [address] [place] [address] * PROTIME (03/30/2014 21:01 EDT) Pro Time [...] PF4 ORD ERABLES [facility] [address] [place] [address] * (ABNORMAL) PTT (03/30/2014 21:01 EDT) PTT 130(HH) 26 - 37 secs [facility] Comment:Therapeutic Heparin range: 65-100 seconds Blood specimen (specimen) 03/30/2014 21:01 EDT 03/30/2014 21:10 EDT Shahid Rayo MD HEMATOLOGY & PF4 ORD ERABLES Performing Organization Address City/[facility] Co de Phone Number [facility] [address] [place] [address] documented in this encounter Visit Diagnoses Diagnosis NSTEMI (non-ST elevated myocardial infarction) ([facility] Primary Acute myocardial infarction, subendocardial infarction, episode of care unspecified NSTEMI (non-ST elevated myocardial infarction) ([facility]) Acute myocardial infarction, subendocardial infarction, episode [...] Berg RN) 0813 (Given - Provider: Cuauhtemoc Begr RN)203 (Given - Provider: Ivan Nguyen) 1039 [...] to 2.3 mL/hr), intravenous, CONTINUOUS, Starting on Vkii 03/30/14 at 2200, Until Thu03/31/14 at 1313, [...] 03/14 documented in this encounter Care Teams Chronic Condition Nurse Relationship Specialty Start Date End Date Pretty Avery MD [address] [place] [address] PCP - General 06/05/10 documented as of this encounter
--- OUTSIDE RECORDS SUMMARY | 2024-04-11 10:15 | XMS_ITS | Encounter Summary ---
Author Organization [facility] Address [address] [place] [address] Care Team Providers Care Network Control Supervisor Name Role Phone Unavailable Primary Care Provider Unavailabl e Encounter Details Date Type Department Care Team (Late st Contact Info) Description 12/14/2006 Results Only [facility] - [facility] conversion [address] [place] [address] Jake Sabillon FNP [address] [place], [place] [address] Social History Tobacco Use Types Packs/Day Years [...] ? EZEQUIEL THOMAS ? Accession #: ? [id number] : ? 1965 (Age: 41) ??F ?Collect Date: ? 12/14/2006 Location: ? [facility] ? Receive Date: ? 12/16/2006 Provider: ?JAKE SABILLON FINAL FINISHER Copy to: ? Specimen/Source: ?ThinPrep Pap Test, Cervix/Endocervix, processed on Bsmark ThinPrep Imaging System, with manual evaluation Last [...] Jake GARCÍAP PATHOLOGY ORDERABLES [facility] [address] [place] [address] documented in this encounter Visit Diagnoses Not on filedocumented in this encounter
--- OUTSIDE RECORDS SUMMARY | 2024-04-11 10:15 | XMS_ITS | Encounter Summary ---
Author Organization [facility] Address [address] [place] [address] Care Team Providers Care Production Weigher Name Role Phone Unavailable Primary Care Provider Unavailabl e Encounter Details Date Type Department Care Team (Late st Contact Info) Description 12/31/2007 Results Only [facility] - [address] [id number] Skip Alcocer MD [address] [place] [address], [address] [place] [address] Social History Tobacco Use Types [...] Results * AMNIOTIC FLUID/CVS ANEUPLOIDY FISH (FOR X,Y,21,13,18)([facility] #[id number]) (12/31/2007 16:34 EDT) Specimen (Note) Chorionic Villi Sample ? [facility] Specimen ID [id number] [facility] Order Date 01 Jan 2008 09:10 URVASHI SOOD Method (Note) FISH analysis of 100 nuclei with probes for Xcen (DXZ1), ? Ycen (DYZ3), 13q14 (Rb1), 18cen (D18Z1) and 21q22 ([id number]). ? [facility] Reason For Referral [...] ? FISH results. ? The College of [employer] and the [place] ? SANDOW recommend confirmation of ? abnormal diagnostic results at or ? termination, to the extent possible. ? DISCLAIMER: ??This test was developed and its performance ? characteristics determined by Laboratory Medicine and ? Pathology, [facility]. ??It has not been cleared ? or approved by the U.S. Food and Drug Administration. ??This ? FISH assay does not rule out other chromosome anomalies. ? Woody et al., [place] Clin Proc 73:132-137, 1998. ? [facility] Barrelhead Inspector (Note) Eduardo Corey MD ? [facility] Report Date 03 Jan 2008 12:44 Performed or Referred by: [facility] Dpt of Lab Med and Path, [address] ?? , [place] [address], Lab Dir: MD URVASHI Morgan III 12/31/2007 16:3 4 EDT 12/31/2007 16:34 EDT Skip Alcocer MD GEN LAB UNIT [facility] ECT ORDERABLES [facility] [address] [place] [address] * [facility]S CHROMOSOME ANALYSIS ([facility] #[id number]) (12/31/2007 16:34 EDT) Specimen (Note) Chorionic Villi Sample ? [facility] Specimen ID [id number] [facility] Order Date 01 Jan [...] ? reported separately. ? [facility] Barrelhead Inspector (Note) Manuel V N Velagakarlyi PhD ? [facility] Report Date 10 Jan 2008 16:27 Performed or Referred by: [facility] Dpt of Lab Med and Path, [address] ?? , [place] [address], Lab Dir: MD URVASHI Morgan III Haploid Band Resolution 400Unit: bands [facility] Total Cells Analyzed 30 [facility] Total Cells Karyotyped 2 [facility] 12/31/2007 16:3 4 EDT 12/31/2007 16:34 EDT Skip Alcocer MD HEMATOLOGY & PF4 ORDERABLES [facility] [address] [place] [address] documented in this encounter Visit Diagnoses Not on filedocumented in this encounter
--- OUTSIDE RECORDS SUMMARY | 2024-04-11 10:15 | XMS_ITS | Clinical Summary ---
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 Role Phone None Primary Care Provider [...] Care Team Description 03/27/2024 Telephone Cardiology at [address] [phone] Fidel Yanes PA 03/19/2024 8:10 AM EDT - 03/19/2024 11:59 PM EDT Hospital Encounter Non-Invasive Cardiology Lab [place] [phone] Discharge Disposition: Home 03/19/2024 1:05 AM EDT - 03/19/2024 2:06 AM EDT Surgery [place] [phone] Ramo Roy MD CARDIAC CATHETERIZATION 03/19/2024 12:37 AM EDT - 03/22/2024 12:10 PM EDT Hospital Encounter Heart and Vascular Unit Level 4 [place] [facility] at [place] [phone] Min, MD Santi Vigil Xavier L, MD Ramachandra, Nayana, MD ST elevation myocardial infarction involving left anterior descending (LAD) coronary artery; Chest pain, unspecified type Discharge Disposition: Home 03/18/2024 11:37 PM EDT - 03/18/2024 11:59 PM EDT Hospital [place] [address] Min, Destin Grajeda MD Discharge Disposition: Home 03/18/2024 Telephone Cardiology at [address] [phone] Yusuf Herrera MD 03/18/2024 External [place] [phone] from Last 3 Months Social History Tobacco Use Types Packs/Day Years Used Date Smoking Tobacco: Former Smokeless Tobacco: Never Alcohol Use Standard Drinks/Week Comments Yes 14 (1 standard drink = 0.6 oz pu re alcohol) [facility] Utilities Answer Date Recorded In the past 12 months has Ayla, oil, or water Anaergia threatened to shut off services in your [...] in the past [address] [facility], were you homeless or living in a usp (including now)? No 03/21/2024 DH IPV Inpatient [...] 10:40 AM EDT Office Visit Cardiology at [address] [place] [address] Herlinda Weaver PA [facility] [place] [address] Health Maintenance Due Date Last Done Comments [...] EDT HC CBC,PLT & AUTO DIFF Routine 07/09/202 4 5:06 AM EDT HC VENIPUNCTURE Routine 03/22/2024 [...] of5 resultswithin the time period is included. WBC 11.6(H) 4.0 - 9.5 x10(3)/[facility] LABORATORY RBC 4.80 4.00 - 5.21 x10(6)/[facility] LABORATORY Hemoglobin 13.5 11.7 - 15.5 g/dL [facility] Hematocrit 40.3 35.7 - 45.8 % [facility] MCV 84.0 82.6 - 94.4 [facility] LABORATORY MCH 28.1 27.1 - 32.0 pg [facility] MCHC 33.5 31.7 - 35.0 g/dL [facility] Platelets 232 145 - 357 x10(3)/[facility] RDWSD 42.2 37.0 - 46.0 [facility] LABORATORY RDWCV 13.5 11.5 - 14.1 % [facility] MPV 9.7 7.6 - 12.9 [facility] LABORATORY nRBC % Auto 0.0 % [facility] LABORATORY nRBC Abs Auto 0.000 0.000 - 0.000 x10(3)/[facility] LABORATORY Blood 03/22/2024 5:06 AM EDT 03/22/2024 5:12 AM EDT Narrative Resulting Agency Comment Spec In Lab Horace Hancock MD HEMATOLOGY ORDERABLE S [facility] [place] [address] * (ABNORMAL) Differential, Automated (03/22/2024 5:06 AM EDT) Only the most recent of5 resultswithin the time period is included. Pathologist [facility] Neutrophils % 71.6 % [facility] LABOR[facility]ORY Neutr Abs (ANC) 8.34(H) 1.70 - 6.10 x10(3)/[facility] LABORATORY Lymphocytes % 17.4 % [facility] LAB[facility] Lymphocytes Abs 2.0 0.9 - 3.2 x10(3)/[facility] LABORATORY Monocytes % 8.2 % [facility] LABORATORY Monocyte Abs 1.0(H) 0.3 - 0.9 x10(3)/[facility] LABORATORY Eosinophils % 2.2 % [facility] Eosinophils Abs 0.3 0.0 - 0.4 x10(3)/[facility] LABORATORY Basophils % 0.3 % [facility] LABORATORY Basophils Abs 0.0 0.0 - 0.1 x10(3)/[facility] LABORATORY Immature Gran % 0.30 % [facility] Comment: Immature granulocytes(IG's)percentage and absolute count will include metamyelocytes, myelocytes, and promyelocytes. Blood smears from CBCs yielding IG's will be scanned manually for concordance. If this scan disagrees with the automated IG or if promyelocytes are noted, a manual differential will be performed. Lesia Gran Abs 0.03 0.00 - 0.04 x10(3)/[facility] LABORATORY Blood 03/22/2024 5:06 AM EDT 03/22/2024 5:12 AM EDT Narrative Resulting Agency Comment Spec In Lab Horace Hancock MD HEMATOLOGY ORDERABLE S [facility] [place] [address] * Magnesium (03/22/2024 5:06 AM EDT) Only the most recent of5 resultswithin the time period is included. Magnesium 0.90 0.69 - 1.07 mmol/L [facility] Blood 03/22/2024 5:06 AM EDT 03/22/2024 5:12 AM EDT Narrative Resulting Agency Comment Spec In Lab Destin Ambrosio MD CHEMISTRY ORDERABLES [facility] [place] [address] * Basic Metabolic Panel (non-fasting) (03/22/2024 5:06 [...] Hancock MD CHEMISTRY ORDERABLES Performing Organization Address [facility] Co de Phone Number [facility] [place] [address] * Metanephrines, Fractionated Free, plasma (03/21/2024 2:57 AM EDT) Normetane Free 0.47 <0.90 nmol/L [facility] Comment: Test Performed by: [facility] [place] [address] Linux Systems Engineer: Chasity Hernandez Ph.D.; CLIA# [id number] Metanephr Free <0.20 <0.50 nmol/L [facility] Comment: ADDITIONAL INFORMATION This test was developed and its performance characteristics determined by [facility] in a manner consistent with CLIA requirements. This test has not been cleared or approved by the U.S. Food and Drug Administration. Test Performed by: [facility] [place] [address] Linux Systems Engineer: Chasity Hernandez Ph.D.; CLIA# [id number] Blood 03/21/2024 2:57 AM EDT 03/21/2024 11:29 AM EDT Narrative Resulting Agency Comment Spec In Lab Horace Hancock MD CHEMISTRY ORDERABLES Performing Organization Address City/[facility]/ZIP Co de Phone Number [facility] [place] [address] * Iron and TIBC (03/20/2024 10:38 AM [...] MD CHEMISTRY ORDERABLES [facility] [place] [address] * (ABNORMAL) Troponin (03/19/2024 11:01 PM EDT) [...] value can be found in the [facility] Laboratory Test Catalog Troponin - [facility] Laboratory Test Catalog Reference: Fourth [place] Definition of Myocardial Infarction. Journal of the [employer] College of [employer] 2018;72:8865-7898 Blood 03/19/2024 11:0 1 PM EDT 03/19/2024 11:05 PM EDT Narrative Resulting Agency Comment Spec In Lab Franky Mead MD CHEMISTRY ORDERABLE S Performing Organization Address City/[facility]/ZIP Co de Phone Number [facility] [place] [address] * EKG 12 Lead (03/19/2024 8:32 PM EDT) Only the most recent of3 resultswithin the time period is included. Ventricular rate 70 BPM MUSE SYSTEM Atrial Rate 70 BPM MUSE SYSTEM P-R Interval 158 ms MUSE SYSTEM QRS Duration 78 ms MUSE SYSTEM Q-T Interval 470 ms MUSE SYSTEM QTC Calculated (Bezet) 507 ms MUSE SYSTEM Calculated P [place] 62 degrees MUSE SYSTEM Calculated R [place] 42 degrees MUSE SYSTEM Calculated T [place] -158 degrees MUSE SYSTEM INTERPRETATION Normal sinus rhythm Poor R wave progression T wave abnormality, consider lateral ischemia Prolonged QT Abnormal ECG When compared with ECG of 19-MAR-2024 17:27, No significant change was found Confirmed by MD Hebert, Destin ([id number]) on 03/23/2024 8:10:58 AM MUSE SYSTEM 03/19/2024 8:32 PM EDT 03/23/2024 8:10 AM EDT Franky Mead MD ECG ORDERABLES Performing Organization Address [facility]/ZIP Co de Phone Number MUSE SYSTEM * ECHO COMPLETE W CONTRAST (03/19/2024 10:53 AM EDT) Anatomical Region Laterality Modality Cardiac Other 03/19/2024 9:03 AM EDT Narrative 03/19/2024 12:12 PM EDT [address] [place] [address] ? Echocardiogram Report Name: ISA RO ?Study Date: 03/19/2024 09:03 AMBP: 129/68 mmHg ? Patient Location: : 1965 ? Height: 158 cm ? Account: [id number] Age: 59 yrs ? Weight: 57 kg Gender: Female ?BSA: 1.6 m2 Ordering Physician: GANESH NGUYEN Referring Physician: GANESH NGUYEN Performed By: PEREZ Carlos Reason For Study: STEMI involving LAD Exam Location: [facility]. Interpretation Summary Normal left ventricle size with mildly reduced LV function. LV ejection fraction 49%. LAD territory wall motion abnormality, predominantly involving the LV apex. No LV thrombus visualized with echo contrast. Normal right ventricle. No significant valvular abnormalities. Compared with prior echo dated 08/28/23, LV function has now decreased and new wall motion abnormalities. Procedure Complete-79914. Image enhancement Definity was used for left [...] Note Destin Ambrosio MD - 03/19/2024 [address] [place] [address] Echocardiogram Report Name: ISA RO Study Date: 409:03 AMBP: 129/68 mmHg Patient Location: : 1965 Height: 158 cm Account: [id number] Age: 59 yrs Weight: 57 kg Gender: Female BSA: 1.6 m2 Ordering Physician: GANESH NGUYEN Referring Physician: GANESH NGUYEN Performed By: PEREZ Carlos Reason For Study: STEMI involving LAD Exam Location: [facility]. Interpretation Summary Normal left ventricle size with mildly reduced LV function. LV ejectionfraction 49%. LAD territory wall motion abnormality, predominantly involving the LVapex. No LV thrombus visualized with echo contrast. Normal right ventricle. No significant valvular abnormalities. Compared with prior echo dated 08/28/23, LV function has now decreased andnew wall motion abnormalities. Procedure Complete-02239. Image enhancement Definity was used for left [...] View (03/19/2024 8:37 AM EDT) WORKSTATION ID [id number] RAD Anatomical Region Laterality Modality Chest N/A [...] who have questions please contact the health care management specialist that requested your imaging first. ? Narrative [...] patients who have questions please contactthe health care management specialist that requested your imaging first. Delores Jett [...] MD HEMATOLOGY ORDERA BLES Performing Organization Address City/[facility]/ZIP Co de Phone Number [facility] [place] [address] * Prothrombin Time (03/19/2024 5:25 AM EDT) Only the most recent of2 resultswithin the time period is included. PT 10.9 9.4 - 12.5 sec [facility] INR 1.0 [facility] Comment: An INR [...] MD HEMATOLOGY ORDERA BLES Performing Organization Address City/[facility]/ZIP Co de Phone Number [facility] [place] [address] * Hemoglobin A1c (03/19/2024 5:25 AM EDT) [...] Mellitus, Diabetes Care 2013; 36: Suppl. 1, R47-07 Est Avg Gluc 114 mg/dL [facility] Blood Venous Draw / Unknown 03/19/2024 5:25 AM EDT 03/19/2024 3:52 PM EDT Narrative Resulting Agency Comment Spec In Lab Horace Hancock MD CHEMISTRY ORDERABLES [facility] [place] [address] * Lipid Panel (Reflex Direct LDL) (03/19/2024 5:25 AM EDT) Chol, Total 324 mg/dL [facility] Comment: Desirable: ? <200 mg/dL Borderline High: 200-239 mg/dL Higher: ?>ix=457 mg/dL Triglycerides 200 mg/dL [facility] Comment: Normal: ?<150 mg/dL Borderline High: 150-199 mg/dL High: ?200-499 mg/dL Very High: ? >gl=243 mg/dL HDL 68 mg/dL [facility] Comment: Females: High Risk: <50 mg/dL Males: High Risk: <40 mg/dL LDL Cholesterol 216 mg/dL [facility] Comment: Desirable: ? <100 mg/dL Above Desirable: 100-129 mg/dL Borderline High: 130-159 mg/dL High: ?160-189 mg/dL Very High: ? >fv=802 mg/dL Lipid Interpretation See Note [facility] [...] individuals with atherosclerotic cardiovascular disease (ASCVD)or LDL >ky=153 mg/dL, use a high-intensity statin (40-80 mg [...] MD CHEMISTRY ORDERAB LES [facility] [place] [address] * (ABNORMAL) Comprehensive metabolic panel (non-fasting) (03/19/2024 [...] CHEMISTRY ORDERAB LES Performing Organization Address City/[facility]/ZIP Co de Phone Number [facility] [place] [address] * Phosphorus (03/19/2024 2:20 AM EDT) Phosphorus 3.8 2.5 - 4.5 mg/dL [facility] Blood 03/19/2024 2:20 AM EDT 03/19/2024 2:59 AM EDT Narrative Resulting Agency Comment Spec In Lab Ganesh Nguyen MD CHEMISTRY ORDERAB LES Performing Organization Address [facility]/ZIP Co de Phone Number [facility] [place] [address] * (ABNORMAL) pro-Brain Natriuretic Peptide (03/19/2024 2:20 AM EDT) ProBNP 529(H) <=124 pg/mL [facility] Blood 03/19/2024 2:20 AM EDT 03/19/2024 2:59 AM EDT Narrative Resulting Agency Comment Spec In Lab Ganesh Nguyen MD CHEMISTRY ORDERAB LES Performing Organization Address [facility] Co de Phone Number [facility] [place] [address] * (ABNORMAL) Hepatic Function Panel (03/19/2024 2:20 [...] MD CHEMISTRY ORDERAB LES [facility] [place] [address] * (ABNORMAL) Point of Care Blood Gas [...] POC Potassium 3.4(L) 3.5 - 5.0 mmol/L [facility] POC Ionized Ca 1.09(L) 1.15 - 1.33 mmol/L [facility] POC Hematocrit 38.0 34.0 - 45.0 % [facility] POC Calc Hgb 12.9 11.2 - 15.7 g/dL [facility] Blood 03/19/2024 1:41 AM EDT 03/19/2024 1:41 AM EDT Kathryn Walker MD CHEMISTRY ORDERABL ES [facility] [place] [address] * CARDIAC CATHETERIZATION (03/19/2024 1:36 AM EDT) Anatomical Region Laterality Modality Other Narrative 03/19/2024 7:19 AM EDT ?[facility] ? Cardiac Catheterization/Intervention Report ? Patient Name: Isa Ro. ? Procedure Date: 03/19/2024 ? A #: [id number] ? Primary Physician: Ramo Roy ? Case #: [id number] ? File Name: [id number] ? Catheterization Order Number: [id number] ? [facility] ? Final Report [place], [place] ? Patient Name: ? Isa A. Warnaar ? ID#: ?[id number] ? : ?1965 ? Procedure Date: ? March 19, 2024 ? Case #: ? [id number] ? Room: ? 6 ? Case Physician: [...] procedure was Emergent. The indication for ?the label maker visit is ACS less than or equal [...] ?3.5 guiding catheter and a 3.5 Fr Dukes Eye Napaimute 20 Mhz using auto 1 ?mm/sec pullback. [...] A premounted 3.00 x 08 mm Alberto Howard (JAHAIRA) was deployed ? with a maximum inflation pressure of 12 atmospheres. ? Another stent insertion was accomplished through a 6 Fr. EBU ? 3.5 guide. ??A premounted 2.00 x 08 mm Alberto Howard (JAHAIRA) was ? deployed. ? The final [...] dose administered prior to arrival in the label maker. ?Recommended anti-platelet/anti-thrombotic regimen: ?Start aspirin 81 mg daily now and continue for indefinitely. ?Start clopidogrel 75 mg daily now and continue for 12 months then stop. ?These recommendations are made at the time of the intervention. Patient ?and provider preferences or a changing clinical situation may require ?modification of this regimen. Consult [facility] Interventional Cardiology for ?questions. ?The 1 year [...] against any medical treatment. Consult ?http://tools.acc.org/DAPTriskapp/#!/content/calculator/ or [facility] ?Interventional Cardiology for questions ? Conclusions: ?* [...] Ramo Roy MD - 03/21/2024 [facility] Cardiac Catheterization/Intervention Report Patient Name: Isa Ro Procedure Date: 03/19/2024 A #: [id number] Primary Physician: Ramo Roy Case #: [id number] File Name: [id number] Catheterization Order Number: [id number] [facility] FinalReport [place], [place] Patient Name: Isa Ro ID#:[id number] :1965 Procedure Date: March 19, 2024 Case [...] patientwas designated as ASA Class IV. The [facility] clinical frailty scale is 3: Managing Well. Diagnostic Tests: Prior Coronary Angiography: Prior coronary angiography was performed on 12/15/2014. Electrocardiography: EKG was assessed by ECG. EKG was Abnormal. EKG showed STDeviation >= 0.5 mm and other abnormality. Medications Prior to Procedure: Aspirin. Indications for Diagnostic Cath: The priority of the diagnostic procedure was Emergent. Theindication for the label maker visit is ACS less than or equal [...] 3.5 guiding catheter and a 3.5 Fr Dukes Eye Napaimute 20 Mhz usingauto 1 mm/sec pullback. Imaging [...] The priority for the procedure was Emergent.The [facility] indication for the procedure was [...] The lesion was predilated with a 2.50mm [id number] MM balloon with a maximum inflation pressure of 14atmospheres. A premounted 3.00 x 08 mm Alberto Howard (JAHAIRA) wasdeployed with a maximum inflation pressure of 12 atmospheres. Another stent insertion was accomplished through a 6 Fr.EBU 3.5 guide. A premounted 2.00 x 08 mm Berwick Howard (JAHAIRA)was deployed. The final outcome was defined [...] dose administered prior to arrival in the label maker. Recommended anti-platelet/anti-thrombotic regimen: Start aspirin 81 mg daily now and continue for indefinitely. Start clopidogrel 75 mg daily now and continue for 12 months thenstop. These recommendations are made at the time of the intervention.Patient and provider preferences or a changing clinical situation mayrequire modification of this regimen. Consult [facility] Interventional Cardiologyfor questions. The 1 year bleeding [...] or against any medical treatment.Consult http://tools.acc.org/DAPTriskapp/#!/content/calculator/ or [facility] Interventional Cardiology for questions Conclusions: * One [...] Documents on File Type Date Recorded Patient Director Of Technology Expl anation Advance Directives and Livin g Will 03/21/2024 4:09 PM * Attempt Cardiopulmonary Resuscitation - Inpatient (Latest Code Status on File) Date Activated Date Inactivated Comments 03/19/2024 1:09 AM 03/22/2024 2:16 PM Question Answer Comments Code Status decision made by: Patient Content of discussion: discussed code st atus and need for CPR/shocks/intubation in periprocedural period 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
--- OUTSIDE RECORDS SUMMARY | 2024-04-11 10:15 | XMS_ITS | Encounter Summary ---
Author Organization [facility] Address [address] [place] [address] Care Team Providers Care Audio Video Mechanic Name Role Phone Pretty Avery MD Primary Care Provider [phone] Encounter Details Date Type Department Care Team (Late st Contact Info) Description 12/15/2014 9:30 EDT - 12/15/2014 15:15 EDT Hospital Encounter [facility] Cardi[facility] Unit [address] [place] [address] Manpreet Naqvi MD [address] [place] [phone] Dilip Mahajan MD 111 [facility] 1 [place] [phone] Discharge Disposition: Home or Self Care Social [...] was performed by Dr. Mahajan. Phone # [phone] You have had a Cardiovascular Catheterization performed [...] 12/13/14. Will contact pt today to reschedule. laborer high density press notified. 12/13/14 10:00, pt rescheduled to Thursday12/15/14. [...] JAHAIRA. * Michaelle Ellsworth, RN - 12/12/2014 9870 EDT Precardiac Cath Nursing Checklist Recent Labs: Lab Results Component Value Date BUN 10 04/01/2014 CREATININE 0.69 04/01/2014 HGB 12.6 04/01/2014 CALCGFR >60 04/01/2014 Hgt: Height: 157.5 cm (62) Wgt: Weight : 54.205 kg (119 lb 8 oz) Allergies: No Known Allergies Local Pharmacy [phone] [address] Cardiac History: Stress Test? No Reason for Cath: chest pain, hx of cad Anginal equivalent:: Cardiac Procedures: Previous PCI done at: [facility] Stent Type/Size: 03/31/14 2.5 x 12 resolute stent prox lad Cardiac surgery: no Medical/Surgical History : Patient has a past medical history of HTN (hypertension); HLD (hyperlipidemia); Chest pain; CAD (coronary artery disease); Family history of heart disease; and Hx of non-ST elevation myocardial infarction (NSTEMI). Patient has past surgical history that includes section. Chronic Risk Factors: HTN, HLD, Previous [place] and Previous PCI Smoking and Alcohol intake: [...] instructed to register on the 3rd floor [facility]. Transportation Issues: Patient/family instructed that they will need a designated combine driver if they are discharged on the dayof the procedure. Medications: Medication list: Patient/family instructed to bring medication list with them on the day of the procedure. Anticoagulants/Antiplatelets: Takes brilinta bid, instructed to take aspirin 81 mg on 12/14/14-12/15/14. Anti-Anginal meds: none Michaelle Ellsworth RN documented in this encounter H&P Notes * Chun Nielsen MD - 12/15/2014 1044 EDT Industrial Maintenance Repairer H&P PCP: Pretty Avery MD Resource Program Teacher: Date of Service: 12/15/2014 Chief Complaint: angina [...] The angina has been stable. Referred for [facility] to further evaluate. 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 Smoking status: [...] consent has been obtained. Chun Nielsen MD Industrial Maintenance Repairer Pager [phone] documented in this encounter Procedure Notes * [...] artery Procedure: She was brought to [facility] Cardiac Catheterization Laboratory for the procedure: [...] 4 weeks Dilip Mahajan Jr., MD PagerNumber: [phone] 12/15/2014 11:43 documented in this encounter Plan [...] EST) 09/26/2015 11:4 2 EST Scan 2 Candle Cutter PROCEDURE/MINOR SHAYY GICAL ORDERABLES * INVASIVE CARDIOLOGY REPORT-SCANNED (12/19/2014 8:53 EDT) 12/19/2014 8:53 EDT Scan 2 Candle Cutter PROCEDURE/MINOR SHAYY GICAL ORDERABLES * ECG REPORT - SCANNED (12/19/2014 8:17 EDT) 12/19/2014 8:17 EDT Scan 2 Candle Cutter PROCEDURE/MINOR SHAYY GICAL ORDERABLES * LEFT HEART CATH (12/15/2014 11:26 EDT) Anatomical Region Laterality Modality Other 12/15/2014 11:2 6 EDT Narrative 12/18/2014 8:37 EDT Cardiology [address] [place] [address] Catheterization Laboratory Study Patient: Isa Ro ? Study Date: ?12/15/2014 ? Accession #: ? [id number] : ? 1965 Referring Physician: Pretty Avery [...] Right radial artery access. A 6 FR/10 [employer] Sheath [place] SS .021 sheath was ?? advanced into [...] Dilip Mahajan Jr., MD - 12/18/[address] [place] [address] Catheterization Laboratory Study Patient: Isa Ro Study [...] DATA: Study status: Cardiac cath: elective. [facility] Sex: female. Patient is 49yr old. [...] artery access. A 6 FR/10 [employer] Sheath [place] SS .021sheath was advanced into the vessel. [...] 12/15/2014 10:1 2 EDT Narrative [facility] EKG - 12/15/2014 15:09 EDT ? [facility] ? Test Date: ?2014-12-15 Pat Name: ? ISA RO ?Department: ?? CVU ? Room: ? CVU37 Gender: ? F ?Hall Coordinator: ?? [id number] : ?1965 ? Requested By: [facility] A Order Number: [id number] ? Reading MD: ?? JOHNNY PATEL MD ? Measurements Intervals ?[place] ? Rate: ? 64 ? P: ?70 [place]: ? 155 ?QRS: ?48 QRSD: ? 82 [...] Note Johnny Patel MD - 12/15/2014 [facility] Test Date: 2014-12-15 Pat Name: ISA RO Department: CVU Room: [facility] Gender: F Hall Coordinator: [id number] : 1965 Requested By: RUTH Vera Order Number: [id number] Reading MD: JOHNNY VICTOR Measurements Intervals [place] Rate: 64 P: 70 [place]: 155 QRS: 48 QRSD: 82 T: 72 [...] MD CARDIAC ECG ORDER JAMI [facility] EKG * PROTIME (12/15/2014 10:04 EDT) [facility] Pro Time 10.3 9.5 - 12.3 secs 12/15/2014 10:37 [facility] I.N.R. 1.0 0.9 - 1.1 Ratio 12/15/2014 10:37 [facility] Comment: Moderate Intensity Coumadin INR = 2.0-3.0 Adjustments in anticoagulant therapy dose should be based upon the INR and NOT the Pro Time. Blood specimen (specimen) BLOOD SPECIMEN / Unknown 12/15/2014 10:04 EDT 12/15/2014 10:21 EDT Abiodun Velez MD HEMATOLOGY & PF4 ORDERABLES [facility] [address] [place] [address] * HEMAGRAM (12/15/2014 10:04 EDT) WBC 6.17 4.0 - 12.4 K/cmm 12/15/2014 10:28 [facility] RBC 4.76 3.86 - 5.04 M/cmm 12/15/2014 10:28 [facility] Hemoglobin 13.2 11.6 - 15.2 gm/dl 12/15/2014 10:28 [facility] HCT 40.0 34.9 - 44.4 % 12/15/2014 10:28 [facility] MCV 84 81 - 98 fl 12/15/2014 10:28 [facility] MCH 27.8 26.7 - 33.3 pg 12/15/2014 10:28 [facility] MCHC 33.1 32.1 - 35.9 gm/dl 12/15/2014 10:28 [facility] RDW-CV 13.7 11.7 - 14.6 % 12/15/2014 10:28 [facility] RDW-SD 41.6 37.6 - 50.3 fl 12/15/2014 10:28 [facility] PLT 245 141 - 320 K/cmm 12/15/2014 10:28 [facility] MPV 8.0 7.5 - 11.2 fl 12/15/2014 10:28 EDT [facility] Blood specimen (specimen) BLOOD SPECIMEN / Unknown 12/15/2014 10:04 EDT 12/15/2014 10:21 EDT Abiodun Velez MD HEMATOLOGY & PF4 ORDERABLES Performing Organization Address City/[facility]/ZIP Co de Phone Number [facility] [address] [place] [address] * ELECTROLYTES (12/15/2014 10:04 EDT) Sodium 141 136 - 145 mEq/L 12/15/2014 10:45 EDT [facility] Potassium 4.3 3.5 - 5.0 mEq/L 12/15/2014 10:45 EDT [facility] Chloride 103 96 - 110 mEq/L 12/15/2014 10:45 EDT [facility] CO2 28 24 - 32 mEq/L 12/15/2014 10:45 EDT [facility] Blood specimen (specimen) BLOOD SPECIMEN / Unknown 12/15/2014 10:04 EDT 12/15/2014 10:21 EDT Abiodun Velez MD CHEMISTRY & BLOOD GAS ORDERABLES Performing Organization Address [facility] Co de Phone Number [facility] [address] [place] [address] * CREATININE (12/15/2014 10:04 EDT) Creatinine 0.78 0.52 - 1.04 mg/dl 12/15/2014 10:45 EDT [facility] GFR, Calculated >60 >60 ml/min/1.7 3m2 12/15/2014 10:45 EDT [facility] Blood specimen (specimen) BLOOD SPECIMEN / Unknown 12/15/2014 10:04 EDT 12/15/2014 10:21 EDT Abiodun Velez MD CHEMISTRY & BLOOD GAS ORDERABLES [facility] [address] [place] [address] * BUN (12/15/2014 10:04 EDT) BUN 16 10 - 26 mg/dl 12/15/2014 10:45 EDT [facility] Blood specimen (specimen) BLOOD SPECIMEN / Unknown 12/15/2014 10:04 EDT 12/15/2014 10:21 EDT Abiodun Velez MD CHEMISTRY & BLOOD GAS ORDERABLES [facility] [address] [place] [address] documented in this encounter Visit Diagnoses Not [...] 12/15/2014 documented in this encounter Care Teams Audio Video Mechanic Relationship Specialty Start Date End Date Pretty Avery MD [address] [place] [address] PCP - General 06/05/10 documented as of this encounter
--- OUTSIDE RECORDS SUMMARY | 2024-04-11 10:15 | XMS_ITS | Encounter Summary ---
Author Organization [facility] Address [address] [place] [address] Care Team Providers Care Divisional Storekeeper Name Role Phone Unavailable Primary Care Provider Unavailabl e Encounter Details Date Type Department Care Team (Late st Contact Info) Description 12/31/2007 14:07 EDT Hospital Encounter [address] [address] Skip Alcocer MD [address] [place] [address], [facility] [address] [place] [address] Discharge Disposition: Auto Discharge Social History Tobacco [...] 10:19 EST CYTOPATHOLOGY Routine 08/28/2008 0:00 EST [facility] VIABILITY 12/31/2007 16:20 EDT [facility] CHORIONIC BARRETO SAMPLING 12/31/2007 15:40 EDT documented [...] - GE NERAL ORDERABLES Performing Organization Address City/State/[facility] Co de Phone Number [facility] [address] [place] [address] * CYTOPATHOLOGY (08/28/2008 0:00 EST) Pathology Report: CYTOPATHOLOGY REPORT ? Reports generated via electronic interface contain original data; ? however they are lacking the format of the original report. ? Caution should be taken when reading/interpreti ng unformatted reports. ? Name: ? EZEQUIEL THOMAS ? Accession #: ? [id number] ? : ? 1965 (Age: 43) ??F ?Collect Date: ? 08/28/2008 ? Location: ? [facility] ? Receive Date: ? 08/30/2008 ? Provider: ?[facility] ? Copy to: ? Specimen/Source: ?Pap Test, [...] significance (ASC-US). ? EDUCATIONAL NOTES/RECOMMENDATI ONS ? [facility] recommends following the 2006 Consensus Guidelines for the Management of Women with Abnormal Cervical Cancer Screening Tests (JLGTD, ? 2007;11(4):201-222 ). ??Consensus guidelines are available online at ? www.ASCCP.org. ? Document reviewed and electronically signed by: ? MARIAA Beverly PLOTZ MD ? Report Date: ??09/04/2008 10:20 ? End of Report ? [facility] 08/28/2008 08/30/2008 Fred Reece [facility] PATHOLOGY ORDERAB LES Performing Organization Address City/State/[facility] Co de Phone Number [facility] [address] [place] [address] * [facility] VIABILITY (12/31/2007 16:20 EDT) Anatomical Region Laterality Modality Other 12/31/2007 16:2 0 EDT Narrative 02/25/2009 13:06 EDT first trimester prior to cvs Please refer to the separate [facility] report. ??Contact Maternal Medicine. Procedure Note Magdalena Strickland MD - 02/25/2009 first trimester prior to cvs Please refer to the separate [facility] report. Contact Maternal Medicine. Magdalena Strickland MD [facility] ORDERABLE S * [facility] CHORIONIC BARRETO SAMPLING (12/31/2007 15:40 EDT) Anatomical Region Laterality Modality Other 12/31/2007 15:4 0 EDT Narrative 02/25/2009 10:52 EDT [facility]SEL[facility] AND [facility] WITH DR ALCOCER Please refer to the separate [facility] report. ??Contact Maternal Medicine. Procedure Note Skip Alcocer MD - 02/25/2009 [facility]ET[facility]SEL[facility] AND [facility] WITH DR ALCOCER Please refer to the separate [facility] report. Contact Maternal Medicine. Skip Reyes MD [facility] ORDERA BLES documented in this encounter Visit Diagnoses Not on filedocumented in this encounter
--- OUTSIDE RECORDS SUMMARY | 2024-04-11 10:15 | XMS_ITS | Encounter Summary ---
Author Organization [facility] Address [address] [place] [address] Care Team Providers Care Drug Regulatory Affairs Specialist Name Role Phone Pretty Avery MD Primary Care Provider Encounter Details Date Type Department Care Team (Late st Contact Info) Description 09/06/2013 Results Only [facility] ([facility]) [address] [place], [place] [id number] Jake Sabillon FNP [address] [place], [place] [address] Social History Tobacco Use Types Packs/Day Years [...] ANNEEZEQUIEL GREEN Chuy ? Accession #: ? [id number] : ? 1965 (Age: 48) ??F ?Collect Date: ? 09/06/2013 Location: ? [facility] ? Receive Date: ? 09/08/2013 Provider: ?JAKE SABILLON TRANSLITERATOR Copy to: ? Specimen/Source: ?Pap Test, Cervix/Endocervix, [...] Report [facility] 09/06/2013 09/08/2013 Jake Sabillon TRANSLITERATOR PATHOLOGY ORDERABLES [facility] [address] [place] [address] documented in this encounter Visit Diagnoses Not on filedocumented in this encounter Care Teams Drug Regulatory Affairs Specialist Relationship Specialty Start Date End Date Pretty Avery MD [address] [place] [address] PCP - General 06/05/10 documented as of this encounter
--- OUTSIDE RECORDS SUMMARY | 2024-04-11 10:15 | XMS_ITS | Encounter Summary ---
Author Organization [facility] Address [address] [place] [address] Care Team Providers Care Assistant Professor Of Criminal Justice Name Role Phone Pretty Avery MD Primary Care Provider [phone] Encounter Details Date Type Department Care Team (Latest Contact Info) Description 03/30/2014 10:20 EDT - 03/30/2014 20:09 EDT Hospital Encounter [facility] [address] [place] [address] Unknown, Provider, Discharge Disposition: Home or Self [...] Code Departure Means Destination Home or Self Shelter documented in this encounter Plan of Treatment Not on file documented as of this encounter Visit Diagnoses Not on filedocumented in this encounter Care Teams Assistant Professor Of Criminal Justice Relationship Specialty Start Date End Date Pretty Avery MD [address] [place] [address] PCP - General 06/05/10 documented as of this encounter
--- OUTSIDE RECORDS SUMMARY | 2024-04-11 10:15 | XMS_ITS | Encounter Summary ---
Author Organization [facility] Address [address] [place] [address] Care Team Providers Care Circulation Manager Name Role Phone Pretty Avery MD Primary Care Provider [phone] Encounter Details Date Type Department Care Team (Late st Contact Info) Description 12/02/2005 Results Only [facility] [address] [place] [address] Jake Sabillon FNP [address] [place], [place] [address] Social History Tobacco Use Types Packs/Day Years [...] ? ANNEEZEQUIEL GREEN ? Accession #: ? [id number] : ? 1965 (Age: 40) ??F ?Collect Date: ? 12/02/2005 Location: ? [facility] ? Receive Date: ? 12/04/2005 Provider: ?JAKE SABILLON WATER RESOURCES TECHNICAL OFFICER Copy to: ? Specimen/Source: ?ThinPrep Pap Test, Cervix/Endocervix, processed on [employer] ThinPrep Imaging System, with manual evaluation Last [...] of Report [facility] 12/02/2005 12/04/2005 Jake GRACÍAP PATHOLOGY ORDERABLES [facility] [address] [place] [address] documented in this encounter Visit Diagnoses Not on filedocumented in this encounter Care Teams Circulation Manager Relationship Specialty Start Date End Date Pretty Avery MD [address] [place] [address] PCP - General 06/05/10 documented as of this encounter
--- OUTSIDE RECORDS SUMMARY | 2024-04-11 10:16 | XMS_ITS | Encounter Summary ---
Author Organization [facility] [place] [address] Care Team Providers Care Jig Builder Helper Name Role Phone Pretty Avery MD Primary Care Provider [phone] Reason for Visit * Reason Comments Skin Check hx of SCC Encounter Details Date Type Department Care Team (Late st Contact Info) Description 01/14/2019 1:30 PM EDT Office Visit Dermatology at [facility] [address] [place] [address] Patrizia Moralez MD [facility] [place] [address] Multiple benign nevi; Lentigines; Seborrheic keratosis; History [...] History: Left lower back, sBCC, ED&C on 84-61-79[facility] Seborrheic keratoses Family History: Melanoma: None Father [...] Scattered on the trunk and extremities waxy peañloza-brown stuck-on papules - Discussed benign nature of [...] by: Patrizia Moralez MD Resident in Dermatology [facility] Patient seen and evaluated with staff forming machine upkeep mechanic: Lisa Candelario MD Section of Dermatology [facility] * Lisa Candelario MD - 01/14/2019 1:30 [...] AM EDT Office Visit Cardiology at [address] [address] Herlinda Weaver PA [facility] [place] [address] documented as of this encounter Visit Diagnoses Diagnosis Multiple benign nevi Benign neoplasm of skin, site unspecified Lentigines Other dyschromia Seborrheic keratosis Other seborrheic keratosis History of basal cell cancer Personal history of other malignant neoplasm of skin Garcia angioma Nevus, non-neoplastic Skin cancer screening Screening for malignant neoplasm of the skin Arthropod bite, initial encounter documented in this encounter Care Teams Jig Builder Helper Relationship Specialty Start Date End Date Pretty Avery MD [address] [place] [address] PCP - General 08/06/10 03/18/24 documented as of this encounter
--- OUTSIDE RECORDS SUMMARY | 2024-04-11 10:16 | XMS_ITS | Encounter Summary ---
Author Organization [facility] [place] [address] Care Team Providers Care Sharepoint Web Developer Name Role Phone Pretty Avery MD Primary Care Provider [phone] Encounter Details Date Type Department Care Team [...] AM EDT Office Visit Cardiology at [address] [address] Herlinda Weaver PA [facility] [place] [address] documented as of this encounter Visit Diagnoses Not on filedocumented in this encounter Care Teams Sharepoint Web Developer Relationship Specialty Start Date End Date Pretty Avery MD [address] [place] [address] PCP - General 08/06/10 03/18/24 documented as of this encounter
--- OUTSIDE RECORDS SUMMARY | 2024-04-11 10:16 | XMS_ITS | Encounter Summary ---
Author Organization [facility] [place] [address] Care Team Providers Care Advertising Vice President Name Role Phone Pretty Avery MD Primary Care Provider [phone] Encounter Details Date Type Department Care Team (Late st Contact Info) Description 12/08/2023 10:30 AM EDT Office Visit Dermatology at [facility] [address] [place] [address] [facility] [address] [place] [address] Skin cancer screening; Inflamed seborrheic keratosis; History [...] for FBSE otherwise PRN []Note routed to departmental secretary [x]Recall placed in scheduling system []Appointment scheduled at checkout Scribe attestation: Juliet Angulo [facility] has performed the documentation for this encounter in the presence of and acting as a scribe for Aylin Cole MD. I performed the above scribed service and agree with the accuracy of the documentation in this encounter. Reviewed and signed by: Aylin Cole MD Dermatology [facility] documented in this encounter Plan of Treatment Upcoming Encounters Date Type Department Care Team (Late st Contact Info) Description 05/09/2024 10:40 AM EDT Office Visit Cardiology at [address] [address] [facility] [place] [address] documented as of this encounter Visit Diagnoses Diagnosis Skin cancer screening Screening for malignant neoplasm of the skin Inflamed seborrheic keratosis History of basal cell carcinoma (BCC) Seborrheic dermatitis Seborrheic dermatitis, unspecified Seborrheic keratoses Multiple benign nevi of upper extremity, lower extremity, and trunk Lentigines Other dyschromia Garcia angioma Nevus, non-neoplastic documented in this encounter Care Teams Advertising Vice President Relationship Specialty Start Date End Date Pretty Avery MD [address] [place] [address] PCP - General 08/06/10 03/18/24 documented as of this encounter
--- OUTSIDE RECORDS SUMMARY | 2024-04-11 10:16 | XMS_ITS | Encounter Summary ---
Author Organization [facility] [place] [address] Care Team Providers Care Claim Clinician Name Role Phone None Primary Care Provider Unavailabl e Reason for Visit * Auth/Cert (Routine) Specialty Diagnoses / Procedures Referred By Contac t Referred To Contact Diagnoses Acute ST elevation myocardial infarction (STEMI) due to occlusion of left anterior descending (LAD) coronary artery stemi Procedures EMERGENCY IPI Destin Ambrosio MD [facility] [place] [address] [facility] Referral ID Status Reason Start Date Expiration Date Visits Re quested Visits Authorized [id number] 1 1 Encounter Details Date Type Department Care Team (Latest Contact Info) Description 03/19/2024 8:10 AM EDT - 03/19/2024 11:59 PM EDT Hospital Encounter Non-Invasive [place] [address] Discharge Disposition: Home Social History Tobacco Use [...] AM EDT Office Visit Cardiology at [address] [address] Herlinda Weaver PA [facility] [place] [address] documented as of this encounter Procedures Procedure [...] mLs documented in this encounter Care Teams Claim Clinician Relationship Specialty Start Date End Date None None PCP - General 03/19/24 documented as of this encounter
--- OUTSIDE RECORDS SUMMARY | 2024-04-11 10:16 | XMS_ITS | Encounter Summary ---
Author Organization [facility] [place] [address] Care Team Providers Care Physical Therapy Assistant Name Role Phone Pretty Avery MD Primary Care Provider [phone] Reason for Visit * Reason Comments Skin Check Encounter Details Date Type Department Care Team (Late st Contact Info) Description 02/04/2017 1:15 PM EDT Office Visit Dermatology at [facility] [address] [place] [address] Lisa Candelario MD [facility] [address] [place] [address] Seborrheic keratosis; Multiple benign nevi; History of [...] encounter. Lisa Candelario MD Section of Dermatology [facility] documented in this encounter Plan of Treatment Upcoming Encounters Date Type Department Care Team (Late st Contact Info) Description 05/09/2024 10:40 AM EDT Office Visit Cardiology at [address] [address] Herlinda Weaver PA [facility] [place] [address] documented as of this encounter Visit Diagnoses Diagnosis Seborrheic keratosis Other seborrheic keratosis Multiple benign nevi Benign neoplasm of skin, site unspecified History of basal cell cancer Personal history of other malignant neoplasm of skin documented in this encounter Care Teams Physical Therapy Assistant Relationship Specialty Start Date End Date Pretty Avery MD [address] [place] [address] PCP - General 08/06/10 03/18/24 documented as of this encounter
--- OUTSIDE RECORDS SUMMARY | 2024-04-11 10:16 | XMS_ITS | Encounter Summary ---
Author Organization [facility] Address [facility] [place] [address] Care Team Providers Care Dehydrogenation Converter Operator Name Role Phone Pretty Avery MD Primary Care Provider [phone] Reason for Visit * Reason Comments Basal Cell Carcinoma * Consultation (Routine) - Closed Specialty Diagnoses / Procedures Referred By Contac t Referred To Contact Dermatology Diagnoses skin lesion lower back, basel cell ca Isa Estrada MD [address] [place] [address] [facility] Dermatology [address] [place] [address] Referral ID Status Reason Start Date Expiration Date V isits Requested Visits Authorized [id number] Closed [facility]uate and [facility] 12/17/2015 12/16/2016 1 1 Encounter Details Date Type Department Care Team (Late st Contact Info) Description 12/19/2015 2:30 PM EDT Office Visit Dermatology at [facility] [address] [place] [address] Lisa Candelario MD [facility] [address] [facility] [place] [address] Superficial basal cell carcinoma; Seborrheic [...] or concerns, please call the office at [phone]. If it is after 5PM, or a holiday or weekend, please call [phone] and ask for the Needle Grader on-call. documented in this encounter Progress Notes [...] Lisa Candelario MD Section of Dermatology [facility] documented in this encounter Plan of Treatment Upcoming Encounters Date Type Department Care Team (Late st Contact Info) Description 05/09/2024 10:40 AM EDT Office Visit Cardiology at [address] [address] Herlinda Weaver PA [facility] [place] [address] documented as of this encounter Visit Diagnoses Diagnosis Superficial basal cell carcinoma Basal cell carcinoma of skin, site unspecified Seborrheic keratosis Other seborrheic keratosis documented in this encounter Care Teams Dehydrogenation Converter Operator Relationship Specialty Start Date End Date Pretty Avery MD [address] [place] [address] PCP - General 08/06/10 03/18/24 documented as of this encounter
--- OUTSIDE RECORDS SUMMARY | 2024-04-11 10:16 | XMS_ITS | Encounter Summary ---
Author Organization [facility] Address [facility] [place] [address] Care Team Providers Care Manufacturing Plant Technician Name Role Phone Pretty Avery MD Primary Care Provider [phone] Encounter Details Date Type Department Care Team (Latest Contact Info) Description 03/18/2024 11:37 PM EDT - 03/18/2024 11:59 PM EDT Hospital Encounter [place] [id number] Destin Ambrosio MD [facility] [place] [address] Discharge Disposition: Home Social History Tobacco Use [...] 10:40 AM EDT Office Visit Cardiology at [address] [address] Herlinda Weaver PA [facility] [place] [address] documented as of this encounter Visit Diagnoses Not on filedocumented in this encounter Care Teams Manufacturing Plant Technician Relationship Specialty Start Date End Date Pretty Avery MD [address] [place] [address] PCP - General 08/06/10 03/18/24 documented as of this encounter
--- OUTSIDE RECORDS SUMMARY | 2024-04-11 10:16 | XMS_ITS | Encounter Summary ---
Author Organization [facility] [place] [address] Care Team Providers Care Tapering Machine Operator Name Role Phone None Primary Care Provider Unavailabl e Encounter Details Date Type Department Care Team (Late st Contact Info) Description 03/18/2024 External Results Emergency Department [facility]ly [facility] [place] [phone] Social History Tobacco Use Types Packs/Day Years Used Date Smoking Tobacco: Former Smokeless Tobacco: Never [facility] Utilities Answer Date Recorded [...] time in the past 12 m [facility], were you homeless or living in a retirement (including now)? No 03/21/2024 IPV Inpatient Questions [...] AM EDT Office Visit Cardiology at [address] [address] Herlinda Weaver PA [facility] [place] [address] documented as of this encounter Procedures Procedure [...] on filedocumented in this encounter Care Teams Tapering Machine Operator Relationship Specialty Start Date End Date None None PCP - General 03/19/24 documented as of this encounter
--- OUTSIDE RECORDS SUMMARY | 2024-04-11 10:16 | XMS_ITS | Encounter Summary ---
Author Organization [facility] [place] [address] Care Team Providers Care Conveyor Attendant Name Role Phone None Primary Care Provider Unavailabl e Reason for Visit * Auth/Cert (Routine) Specialty Diagnoses / Procedures Referred By Contac t Referred To Contact Diagnoses Acute ST elevation myocardial infarction (STEMI) due to occlusion of left anterior descending (LAD) coronary artery stemi Procedures EMERGENCY IPI Destin Ambrosio MD [facility] [place] [address] RUST Referral ID Status Reason Start Date Expiration Date Visits Re quested Visits Authorized [id number] 1 1 Encounter Details Date Type Department Care Team (Late st Contact Info) Description 03/19/2024 1:05 AM EDT - 03/19/2024 2:06 AM EDT [place] [address] Ramo Roy MD [facility] [address] CARDIAC CATHETERIZATION Social History Tobacco Use Types Packs/Day Years Used Date Smoking Tobacco: Former Smokeless Tobacco: Never Alcohol Use Standard Drinks/Week Comments Yes 14 (1 standard drink = 0.6 oz pu re alcohol) [facility] Inpatient Questions Answer Date Recorded [...] Isa Ro Patient Age: 59 y.o. 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 Patient [...] given mildly reduced LVEF [ ] f/u [facility] cardiology scheduled. [facility] cardiology referral sent Inpatient Provider Contact Information: Kathryn Walker MD [phone] For questions regarding this document or issues relating to this hospitalization on the Medical Service, please contact your inpatient physician through the [facility] Senior Graduate Advisor . Issues afterhours and on weekends will [...] 03/19/2024 8:37 AM) Result Value WORKSTATION ID [id number] Narrative EXAMINATION: XR CHEST ONE VIEW CLINICAL [...] who have questions please contact the health family day care provider that requested your imaging first. Cardiac Catheterization (Exam End: 03/19/2024 1:36 AM) Narrative [facility] Cardiac Catheterization/Intervention Report Patient Name: Isa Ro Procedure Date: 03/19/2024 A #: [id number] Primary Physician: Ramo Roy Case #: [id number] File Name: [id number] Catheterization Order Number: [id number] [facility] Success Coach [facility] Final Report [place], [place] Patient Name: Isa Ro ID#: [id number] : 1965 Procedure Date: March 19, 2024 [...] was designated as ASA Class IV. The [facility] clinical frailty scale is 3: Managing Well. Diagnostic Tests: Prior Coronary Angiography: Prior coronary angiography was performed on 12/15/2014. Electrocardiography: EKG was assessed by ECG. EKG was Abnormal. EKG showed ST Deviation >= 0.5 mm and other abnormality. Medications Prior to Procedure: Aspirin. Indications for Diagnostic Cath: The priority of the diagnostic procedure was Emergent. The indication for the floating labor gang supervisor visit is ACS less than or [...] 3.5 guiding catheter and a 3.5 Fr [place] 20 Mhz using auto 1 mm/sec pullback. [...] priority for the procedure was Emergent. The [facility] indication for the procedure was STEMI-Immediate [...] A premounted 3.00 x 08 mm Alberto [place] (JAHAIRA) was deployed with a maximum inflation pressure of 12 atmospheres. Another stent insertion was accomplished through a 6 Fr. EBU 3.5 guide. A premounted 2.00 x 08 mm Alberto [place] (JAHAIRA) was deployed. The final outcome was [...] dose administered prior to arrival in the 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 Recommended anti-platelet/anti-thrombotic regimen: Start aspirin 81 mg daily now and continue for indefinitely. Start clopidogrel 75 mg daily now and continue for 12 months then stop. These recommendations are made at the time of the intervention. Patient and provider preferences or a changing clinical situation may require modification of this regimen. Consult [facility] Interventional Cardiology for questions. The 1 year [...] against any medical treatment. Consult http://tools.acc.org/DAPTriskapp/#!/content/calculator/ or [facility] Interventional Cardiology for questions Conclusions: * One [...] decreased and new wall motion abnormalities. Procedure Complete-[id number]. Image enhancement Definity was used for left [...] LAD in 03/2014, HLD, who presented to [facility] with chest pain. She developed chest pain around 2100 on 03/18 which prompted her to call EMS. She was given 325mg of aspirin and nitroglycerin. On arrival to [facility], she was found to have an EKG suggestive of anterior STEMI for which she was given half dose TNKfor systemic lysis prior to speaking with Dr. Herrera, on-call glove sewer at [facility]. She was subsequently transferred directly to the [facility] floating labor gang supervisor where coronary angiography revealed a 100% [...] away. Stay on the phone. The emergency straw hat brim raiser operator will tell you what to do. [...] of 8AM-5PM please call the Cardiology Clinic [phone] to speak with a nurse. All other hours please call the Hospital Senior Graduate Advisor [phone] and ask to speak to the cardiovascular hospitalist on-call. Return to work: One week Follow up Appointments: Doctor Where Phone # Date Time PCP MELECIO Polanco [address] [place] [address] 000 04/04/24 7:55 AM Rn Intake Herlinda Weaver PA-C [facility] Cardiology 4A Clinic [phone] 05/09/24 10:40 AM (pleasearrive by 10:20 AM) *A referral has also been placed to [facility] cardiology, though you will need to follow-up with them regarding scheduling appointments at [phone] General Instructions None Future Appointments and Orders Future Appointments and Orders Future Appointments Provider Department Dept Phone 05/09/2024 10:40 AM Herlinda Weaver PA Cardiology at [facility] Arrive at: Operating System Programmer Area [phone] Future Orders Complete By Expires Referral to Cardiac Rehab [IFB046 Custom] As directed Process Instructions: If no progress note charted, please enter Clinical details in comments. Scheduling Instructions: Questions: My question or request is: s/p STEMI- cardiac rehab at [facility] Referral to Cardiology [REF12 Custom] As directed Process Instructions: If no progress note charted, please enter Clinical details in comments. Scheduling Instructions: Questions: My question or request is: s/p STEMI Discharge References/Attachments None Greater than 30 minutes was spent on this discharge including documentation, [id number] time withthe patient, patient education, order administrator, coordination with pharmacy and other patient care. [...] away. Stay on the phone. The emergency straw hat brim raiser operator will tell you what to do. [...] cardiac rehab has also been placed to [facility]. Call your doctor if: Chest pain, dyspnea, pain or swelling in legs occurs, or for weight gain of 2 pounds overnight or 5pounds in 5 days. If you have non-emergent questions, prior to your follow-up visit call: Thursday-Thursday between the hours of 8AM-5PM please call the Cardiology Clinic [phone] to speak with a nurse. All other hours please call the Hospital Senior Graduate Advisor [phone] and ask to speak to the cardiovascular hospitalist on-call. Return to work: One week Follow up Appointments: Doctor Where Phone # Date Time PCP MELECIO Polanco [address] [place] [address] 04/04/24 7:55 AM Rn Intake Herlinda Weaver PA-C [facility] Cardiology 4A Clinic [phone] 05/09/24 10:40 AM (pleasearrive by 10:20 AM) *A referral has also been placed to [facility] cardiology, though you will need to follow-up with them regarding scheduling appointments at [phone] documented in this encounter Medications at Time [...] agreed to participate in cardiac rehab at [facility] following discharge Review of Systems: Review [...] to have resulted in hypoxemia in the 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 She was also a bit hypercapnic [...] 03/19/2024 8:20 PM EDTSummary: Chest Pain Patient pony rougher light c/o chest pain 11/21. I asked [...] Mcbride MD - 03/19/2024 2:50 AM EDT [facility] TeleICU Initial Assessment Note I established audio/visual [...] => BiPAP started Following procedure, transferred to [facility] - able to be weaned to [facility] [...] [facility] to [facility] patient [facility]: ED via EMS Date and Time of [...] Not contraindicated Plan STEMI Alert called: Yes Success Coach Activated by: Regional Climate Change Analyst Initial Disposition: Admit Success Coach documented in this encounter H&P Notes * [...] to LAD in 03/2014, HLD,who presented to [facility] with chest pain. She developed chest pain around 2100 on 03/18 which prompted her to call EMS. She was given 325mg of aspirin and nitroglycerin. On arrival to [facility], she was found to have an EKG suggestive of anterior STEMI for which she was given half dose TNK for systemic lysis prior to speaking with Dr. Herrera, on-call glove sewer at [facility]. 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 She was also a bit hypercapnic [...] Cardiopulmonary Resuscitation - Inpatient Ganesh Nguyen MD Regional Climate Change Analyst [id number] documented in this encounter Miscellaneous Notes [...] Care: Contact information for follow-up Cardiac Rehab, [facility] [address] [facility] [address] Cardiology, [facility] [address] [facility] [address] Transportation: family or friend will provide Functional [...] 03/21/2024 4:02 PM EDT Patient completed a [place] advance directive. Patient identified her sister Stacia [...] N/A ; Prescription Coverage: Yes Preferred Pharmacy: [facility] [address] [facility] [address] [place], [place] [address]way [address] [facility] [address] [id number] - [place], [place] - [address] [place] [address] [facility] [address] [facility] [phone] [facility] [address] - [employer], [place] - [address] [facility] [address] [place] [address] Advance Care Planning: Attempt Cardiopulmonary Resuscitation - Inpatient <no information> -Advanced Directive: No, need to discuss (RS referral sent for AD discussion) Current Functional Ability: Assistive Person Functional Status Prior to Admission: Independent Home Environment: Others in the home: child(lucian), minor (lives with her 15yo son). Current Living Arrangements: home/apartment/condo. Accessibility Concerns:house with 3 floors and 2 [address]. Current DME: none [address] [facility] [address] Social & Family Supports: All names listed below confirmed with patient as current and correct Extended Emergency Contact Information [facility] [place] Relation: Mother [...] to for AD discussion today. Registered Nurse Brake Rider / Roll Setter will continue to follow patient???s progress and [...] in an outpatient cardiac rehabilitation program at [facility] was discussed. Patient agrees to a [...] Operative Note Patient Name: Isa Ro : [id number] MR#: [id number] Case Date: 03/19/2024 Surgeon: Surgeons and Role: [...] AM EDT Office Visit Cardiology at [address] [address] Herlinda Weaver PA [facility] [place] [address] Scheduled Referrals Name Type Priority Associated Diagnoses [...] 5:06 AM EDT) Neutrophils % 71.6 % [facility] Neutr Abs (ANC) 8.34(H) 1.70 - 6.10 x10(3)/mc L [facility] Lymphocytes % 17.4 % [facility] Lymphocytes Abs 2.0 0.9 - 3.2 x10(3)/mc L [facility] Monocytes % 8.2 % [facility] Monocyte Abs 1.0(H) 0.3 - 0.9 x10(3)/mc L [facility] Eosinophils % 2.2 % [facility] Eosinophils Abs 0.3 0.0 - 0.4 x10(3)/mc L [facility] Basophils % 0.3 % [facility] Basophils Abs 0.0 0.0 - 0.1 x10(3)/mc L [facility] Immature Gran % 0.30 % [facility] Comment: Immature granulocytes(IG's)percentage and absolute count will include metamyelocytes, myelocytes, and promyelocytes. Blood smears from CBCs yielding IG's will be scanned manually for concordance. If this scan disagrees with the automated IG or if promyelocytes are noted, a manual differential will be performed. Lesia Gran Abs 0.03 0.00 - 0.04 x10(3)/[facility] Blood 03/22/2024 5:06 AM EDT 03/22/2024 5:12 AM EDT Narrative Resulting Agency Comment Spec In Lab Horace Hancock MD HEMATOLOGY ORDERABLE S [facility] [place] [address] * (ABNORMAL) Hemogram (03/22/2024 5:06 AM EDT) WBC 11.6(H) 4.0 - 9.5 x10(3)/[facility] RBC 4.80 4.00 - 5.21 x10(6)/[facility] Hemoglobin 13.5 11.7 - 15.5 g/dL [facility] Hematocrit 40.3 35.7 - 45.8 % [facility] MCV 84.0 82.6 - 94.4 fL [facility] MCH 28.1 27.1 - 32.0 pg [facility] MCHC 33.5 31.7 - 35.0 g/dL [facility] Platelets 232 145 - 357 x10(3)/[facility] RDWSD 42.2 37.0 - 46.0 [facility] RDWCV 13.5 11.5 - 14.1 % [facility] MPV 9.7 7.6 - 12.9 [facility] nRBC % Auto 0.0 % [facility] nRBC Abs Auto 0.000 0.000 - 0.000 x10(3)/mcL [facility] Blood 03/22/2024 5:06 AM EDT 03/22/2024 5:12 AM EDT Narrative Resulting Agency Comment Spec In Lab Horace Hancock MD HEMATOLOGY ORDERABLE S [facility] [place] [address] * Basic Metabolic Panel (non-fasting) (03/22/2024 5:06 AM EDT) Glucose Lvl 107 65 - 199 mg/dL [facility] Comment:Diabetes: >=200 mg/d L plus symptoms BUN 18 8 - 18 mg/dL [facility] Creatinine 0.87 0.70 - 1.20 mg/dL [facility] Sodium 138 135 - 145 mmol/L [facility] Potassium 4.1 3.5 - 5.0 mmol/L [facility] Comment: Please note: ??Patients with WBC >100,000 may have falsely elevated Potassium levels. ??For accurate Potassium quantification in these patients send serum separator tube (gold top) for subsequent determinations. ??Contact the Clinical Chemistry Laboratory if there are any questions. Chloride 104 98 - 107 mmol/L [facility] CO2 24 22 - 31 mmol/L [facility] Anion Gap 10 5 - 15 mmol/L [facility] Calcium 9.2 8.5 - 10.5 mg/dL [facility] Estimated GFR 76 >=60 mL/min/1. 73 m?? [facility] Comment: This patient's estimated GFR [...] Hancock MD CHEMISTRY ORDERABLES Performing Organization Address City/[facility]/ZIP Co de Phone Number [facility] [place] [address] * Magnesium (03/22/2024 5:06 AM EDT) Magnesium 0.90 0.69 - 1.07 mmol/L [facility] Blood 03/22/2024 5:06 AM EDT 03/22/2024 5:12 AM EDT Narrative Resulting Agency Comment Spec In Lab Destin Ambrosio MD CHEMISTRY ORDERABLES Performing Organization Address City/[facility]/ZIP Co de Phone Number [facility] [place] [address] * (ABNORMAL) Differential, Automated (03/21/2024 2:57 AM EDT) Neutrophils % 63.0 % [facility] Neutr Abs (ANC) 6.70(H) 1.70 - 6.10 x10(3)/mc L [facility] Lymphocytes % 24.9 % [facility] Lymphocytes Abs 2.6 0.9 - 3.2 x10(3)/mc L [facility] Monocytes % 8.7 % [facility] Monocyte Abs 0.9 0.3 - 0.9 x10(3)/mc L [facility] Eosinophils % 2.8 % [facility] Eosinophils Abs 0.3 0.0 - 0.4 x10(3)/mc L [facility] Basophils % 0.3 % [facility] Basophils Abs 0.0 0.0 - 0.1 x10(3)/ L [facility] Immature Gran % 0.30 % [facility] Comment: Immature granulocytes(IG's)percentage and absolute count will include metamyelocytes, myelocytes, and promyelocytes. Blood smears from CBCs yielding IG's will be scanned manually for concordance. If this scan disagrees with the automated IG or if promyelocytes are noted, a manual differential will be performed. Lesia Gran Abs 0.03 0.00 - 0.04 x10(3)/ L [facility] Blood 03/21/2024 2:57 AM EDT 03/21/2024 3:03 AM EDT Narrative Resulting Agency Comment Spec In Lab Horace Hancock MD HEMATOLOGY ORDERABLE S Performing Organization Address City/State/[facility] Co de Phone Number [facility] [place] [address] * (ABNORMAL) Hemogram (03/21/2024 2:57 AM EDT) WBC 10.6(H) 4.0 - 9.5 x10(3)/[facility] RBC 4.54 4.00 - 5.21 x10(6)/[facility] Hemoglobin 12.8 11.7 - 15.5 g/dL [facility] Hematocrit 38.2 35.7 - 45.8 % [facility] MCV 84.1 82.6 - 94.4 fL [facility] MCH 28.2 27.1 - 32.0 pg [facility] MCHC 33.5 31.7 - 35.0 g/dL [facility] Platelets 242 145 - 357 x10(3)/[facility] RDWSD 42.4 37.0 - 46.0 fL [facility] RDWCV 13.7 11.5 - 14.1 % [facility] MPV 9.5 7.6 - 12.9 fL [facility] nRBC % Auto 0.0 % [facility] nRBC Abs Auto 0.000 0.000 - 0.000 x10(3)/mcL [facility] Blood 03/21/2024 2:57 AM EDT 03/21/2024 3:03 AM EDT Narrative Resulting Agency Comment Spec In Lab Horace Hancock MD HEMATOLOGY ORDERABLE S [facility] [place] [address] * Basic Metabolic Panel (non-fasting) (03/21/2024 2:57 AM EDT) Glucose Lvl 98 65 - 199 mg/dL [facility] Comment:Diabetes: >=200 mg/d L plus symptoms BUN 15 8 - 18 mg/dL [facility] Creatinine 0.82 0.70 - 1.20 mg/dL [facility] Sodium 144 135 - 145 mmol/L [facility] Potassium 4.2 3.5 - 5.0 mmol/L [facility] Comment: Please note: ??Patients with WBC >100,000 may have falsely elevated Potassium levels. ??For accurate Potassium quantification in these patients send serum separator tube (gold top) for subsequent determinations. ??Contact the Clinical Chemistry Laboratory if there are any questions. Chloride 107 98 - 107 mmol/L [facility] CO2 25 22 - 31 mmol/L [facility] Anion Gap 12 5 - 15 mmol/L [facility] Calcium 9.2 8.5 - 10.5 mg/dL [facility] Estimated GFR 82 >=60 mL/min/1. 73 m?? [facility] Comment: This patient's estimated GFR [...] Hancock MD CHEMISTRY ORDERABLES Performing Organization Address City/[facility]/ZIP Co de Phone Number [facility] [place] [address] * Magnesium (03/21/2024 2:57 AM EDT) Magnesium 0.91 0.69 - 1.07 mmol/L [facility] Blood 03/21/2024 2:57 AM EDT 03/21/2024 3:03 AM EDT Narrative Resulting Agency Comment Spec In Lab Destin Ambrosio MD CHEMISTRY ORDERABLES Performing Organization Address [facility] Co de Phone Number [facility] [place] [address] * Metanephrines, Fractionated Free, plasma (03/21/2024 2:57 AM EDT) Normetane Free 0.47 <0.90 nmol/L [facility] Comment: Test Performed by: [facility] - [address] [address] Bilingual Medical Receptionist: Chasity Hernandez Ph.D.; CLIA# [id number] Metanephr Free <0.20 <0.50 nmol/L [facility] Comment: ADDITIONAL INFORMATION This test was developed and its performance characteristics determined by [facility] in a manner consistent with CLIA requirements. This test has not been cleared or approved by the U.S. Food and Drug Administration. Test Performed by: [facility] - [facility] [address] [place] [address] Bilingual Medical Receptionist: Chasity Hernandez Ph.D.; CLIA# [id number] Blood 03/21/2024 2:57 AM EDT 03/21/2024 11:29 AM EDT Narrative Resulting Agency Comment Spec In Lab Horace Hancock MD CHEMISTRY ORDERABLES Performing Organization Address City/[facility]/ZIP Co de Phone Number [facility] [place] [address] * Iron and TIBC (03/20/2024 10:38 AM EDT) Pathologist [facility] Iron 57 30 - 150 mcg/dL [facility] TIBC 278 250 - 450 mcg/dL [facility] Iron Saturation 21 20 - 50 % [facility] Blood Venous Draw / Unknown 03/20/2024 10:38 AM EDT 03/20/2024 10:52 AM EDT Narrative Resulting Agency Comment Spec In Lab Horace Hancock MD CHEMISTRY ORDERABLES Performing Organization Address City/[facility] Co de Phone Number [facility] [place] [address] * (ABNORMAL) Differential, Automated (03/20/2024 10:38 AM EDT) [facility] Neutrophils % 73.1 % [facility] Neutr Abs (ANC) 9.60(H) 1.70 - 6.10 x10(3)/mc L [facility] Lymphocytes % 17.3 % [facility] Lymphocytes Abs 2.3 0.9 - 3.2 x10(3)/mc L [facility] Monocytes % 7.5 % [facility] Monocyte Abs 1.0(H) 0.3 - 0.9 x10(3)/mc L [facility] Eosinophils % 1.5 % [facility] Eosinophils Abs 0.2 0.0 - 0.4 x10(3)/[facility] Basophils % 0.3 % [facility] Basophils Abs 0.0 0.0 - 0.1 x10(3)/[facility] Immature Gran % 0.30 % [facility] Comment: Immature granulocytes(IG's)percentage and absolute count will include metamyelocytes, myelocytes, and promyelocytes. Blood smears from CBCs yielding IG's will be scanned manually for concordance. If this scan disagrees with the automated IG or if promyelocytes are noted, a manual differential will be performed. Lesia Gran Abs 0.04 0.00 - 0.04 x10(3)/[facility] Blood 03/20/2024 10:3 8 AM EDT 03/20/2024 10:47 AM EDT Narrative Resulting Agency Comment Spec In Lab Horace Hancock MD HEMATOLOGY ORDERABLE S [facility] [place] [address] * (ABNORMAL) Hemogram (03/20/2024 10:38 AM EDT) WBC 13.2(H) 4.0 - 9.5 x10(3)/[facility] RBC 4.66 4.00 - 5.21 x10(6)/[facility] Hemoglobin 13.0 11.7 - 15.5 g/dL [facility] Hematocrit 38.7 35.7 - 45.8 % [facility] MCV 83.0 82.6 - 94.4 fL [facility] MCH 27.9 27.1 - 32.0 pg [facility] MCHC 33.6 31.7 - 35.0 g/dL [facility] Platelets 238 145 - 357 x10(3)/[facility] RDWSD 41.7 37.0 - 46.0 fL [facility] RDWCV 13.8 11.5 - 14.1 % [facility] MPV 9.8 7.6 - 12.9 fL [facility] nRBC % Auto 0.0 % [facility] nRBC Abs Auto 0.000 0.000 - 0.000 x10(3)/mcL [facility] Blood 03/20/2024 10:3 8 AM EDT 03/20/2024 10:47 AM EDT Narrative Resulting Agency Comment Spec In Lab Horace Hancock MD HEMATOLOGY ORDERABLE S Performing Organization Address City/[facility]/ZIP Co de Phone Number [facility] [place] [address] * Magnesium (03/20/2024 10:38 AM EDT) Magnesium 0.88 0.69 - 1.07 mmol/L [facility] Blood 03/20/2024 10:3 8 AM EDT 03/20/2024 10:47 AM EDT Narrative Resulting Agency Comment Spec In Lab Horace Hancock MD CHEMISTRY ORDERABLES Performing Organization Address City/[facility]/ZIP Co de Phone Number [facility] [place] [address] * Basic Metabolic Panel (non-fasting) (03/20/2024 10:38 AM EDT) Glucose Lvl 108 65 - 199 mg/dL [facility] Comment:Diabetes: >=200 mg/d L plus symptoms BUN 11 8 - 18 mg/dL [facility] Creatinine 0.82 0.70 - 1.20 mg/dL [facility] Sodium 137 135 - 145 mmol/L [facility] Potassium 4.3 3.5 - 5.0 mmol/L [facility] Comment: Please note: ??Patients with WBC >100,000 may have falsely elevated Potassium levels. ??For accurate Potassium quantification in these patients send serum separator tube (gold top) for subsequent determinations. ??Contact the Clinical Chemistry Laboratory if there are any questions. Chloride 101 98 - 107 mmol/L [facility] CO2 22 22 - 31 mmol/L [facility] Anion Gap 14 5 - 15 mmol/L [facility] Calcium 9.0 8.5 - 10.5 mg/dL [facility] Estimated GFR 82 >=60 mL/min/1. 73 m?? [facility] Comment: This patient's estimated GFR [...] Hancock MD CHEMISTRY ORDERABLES Performing Organization Address [facility]/ZIP Co de Phone Number [facility] [place] [address] * Magnesium (03/19/2024 11:01 PM EDT) Magnesium 0.96 0.69 - 1.07 mmol/L [facility] Blood Venous Draw / Unknown 03/19/2024 11:01 PM EDT 03/19/2024 11:06 PM EDT Narrative Resulting Agency Comment Spec In Lab Horace Hancock MD CHEMISTRY ORDERABLES Performing Organization Address City/[facility]/ZIP Co de Phone Number [facility] [place] [address] * (ABNORMAL) Troponin (03/19/2024 11:01 PM EDT) Troponin-T HS 2,406(H) <=14 ng/L [facility] Comment: This patient's troponin T [...] troponin value can be found in the [facility] Test Catalog Troponin - [facility] Test Catalog Reference: Fourth Bosque Definition of Myocardial Infarction. Journal of the [employer] 2018;72:5058-8580 Blood 03/19/2024 11:0 1 PM EDT 03/19/2024 11:05 PM EDT Narrative Resulting Agency Comment Spec In Lab Franky Mead MD CHEMISTRY ORDERABLE S [facility] [place] [address] * (ABNORMAL) Troponin (03/19/2024 8:40 PM EDT) Troponin-T HS 2,586(H) <=14 ng/L [facility] Comment: This patient's troponin T [...] troponin value can be found in the [facility] Test Catalog Troponin - [facility] Test Catalog Reference: Fourth Bosque Definition of Myocardial Infarction. Journal of the [employer] 2018;72:6019-0512 Blood 03/19/2024 8:40 PM EDT 03/19/2024 8:45 PM EDT Narrative Resulting Agency Comment Spec In Lab Ganesh Nguyen MD CHEMISTRY ORDERAB LES [facility] [place] [address] * EKG 12 Lead (03/19/2024 8:32 PM EDT) Ventricular rate 70 BPM MUSE SYSTEM Atrial Rate 70 BPM MUSE SYSTEM P-R Interval 158 ms MUSE SYSTEM QRS Duration 78 ms MUSE SYSTEM Q-T Interval 470 ms MUSE SYSTEM QTC Calculated (Bezet) 507 ms MUSE SYSTEM Calculated P [place] 62 degrees MUSE SYSTEM Calculated R [place] 42 degrees MUSE SYSTEM Calculated T [place] -158 degrees MUSE SYSTEM INTERPRETATION Normal sinus rhythm Poor R wave progression T wave abnormality, consider lateral ischemia Prolonged QT Abnormal ECG When compared with ECG of 19-MAR-2024 17:27, No significant change was found Confirmed by MD Hebert, Destin ([id number]) on 03/23/2024 8:10:58 AM MUSE SYSTEM 03/19/2024 [...] (Bezet) 496 ms MUSE SYSTEM Calculated P [place] 80 degrees MUSE SYSTEM Calculated R [place] 87 degrees MUSE SYSTEM Calculated T [place] -96 degrees MUSE SYSTEM INTERPRETATION Normal sinus rhythm T wave abnormality, consider lateral ischemia Prolonged QT Abnormal ECG When compared with ECG of 19-MAR-2024 02:23, Non-specific change in ST segment in Anterior leads T wave inversion more evident in Inferior leads T wave inversion now evident in Anterolateral leads Confirmed by MD Ambrosio David ([id number]) on 03/23/2024 8:10:45 AM MUSE SYSTEM 03/19/2024 5:27 PM EDT 03/23/2024 8:10 AM EDT Unknown ECG ORDERABLES MUSE SYSTEM * (ABNORMAL) Troponin (03/19/2024 2:45 PM EDT) Pathologist [facility] Troponin-T HS 3,792(H) <=14 ng/L [facility] Comment: This patient's troponin T [...] troponin value can be found in the [facility] Test Catalog Troponin - [facility] Test Catalog Reference: Fourth Bosque Definition of Myocardial Infarction. Journal of the [employer] 2018;72:[id number] Blood 03/19/2024 2:45 PM EDT 03/19/2024 2:54 PM EDT Narrative Resulting Agency Comment Spec In Lab Horace Hancock MD CHEMISTRY ORDERABLES [facility] [place] [place] [address] * ECHO COMPLETE W CONTRAST (03/19/2024 10:53 AM EDT) Anatomical Region Laterality Modality Cardiac Other 03/19/2024 9:03 AM EDT Narrative 03/19/2024 12:12 PM [place]T [address] [place] [address] ? Echocardiogram Report Name: ISA RO ?Study Date: 03/19/2024 09:03 AMBP: 129/68 mmHg ? Patient Location: 4A : 1965 ? Height: 158 cm ? Account: [id number] Age: 59 yrs ? Weight: 57 kg Gender: Female ?BSA: 1.6 m2 Ordering Physician: GANESH NGUYEN Referring Physician: GANESH NGUYEN Performed By: PEREZ Carlos Reason For Study: STEMI involving LAD Exam Location: [facility]. Interpretation Summary Normal left ventricle size with mildly reduced LV function. LV ejection fraction 49%. LAD territory wall motion abnormality, predominantly involving the LV apex. No LV thrombus visualized with echo contrast. Normal right ventricle. No significant valvular abnormalities. Compared with prior echo dated 08/28/23, LV function has now decreased and new wall motion abnormalities. Procedure Complete-[id number]. Image enhancement Definity was used for left [...] Note Destin Ambrosio MD - 03/19/2024 [address] [place] [address] Echocardiogram Report Name: ISA RO Study Date: 409:03 AMBP: 129/68 mmHg Patient Location: : 1965 Height: 158 cm Account: [id number] Age: 59 yrs Weight: 57 kg Gender: Female BSA: 1.6 m2 Ordering Physician: GANESH NGUYEN Referring Physician: GANESH NGUYEN Performed By: PEREZ Carlos Reason For Study: STEMI involving LAD Exam Location: [facility]. Interpretation Summary Normal left ventricle size with mildly reduced LV function. LV ejectionfraction 49%. LAD territory wall motion abnormality, predominantly involving the LVapex. No LV thrombus visualized with echo contrast. Normal right ventricle. No significant valvular abnormalities. Compared with prior echo dated 08/28/23, LV function has now decreased andnew wall motion abnormalities. Procedure Complete-[id number]. Image enhancement Definity was used for left [...] Chest One View (03/19/2024 8:37 AM EDT) [employer] WORKSTATION ID [id number] DH RAD Anatomical Region Laterality Modality Chest N/A [...] who have questions please contact the health family day care provider that requested your imaging first. ? Electronically signed by: Isa Whitley MD, [facility] ??([phone]), at 03/19/2024 10:09 AM Narrative 03/19/2024 10:09 [...] patients who have questions please contactthe health family day care provider that requested your imaging first. Electronically signed by: Isa Whitley MD, [facility]([phone]), at 03/19/2024 10:09 AM Delores Jett MD IMG DX ORDERABLES * Hemoglobin A1c (03/19/2024 5:25 AM EDT) Hemoglobin A1C 5.6 4.3 - 5.6 % [facility] Comment: Reference Range: 4.3 - [...] Mellitus, Diabetes Care 2013; 36: Suppl. 1, Z30-15 Est Avg Gluc 114 mg/dL [facility] Blood Venous Draw / Unknown 03/19/2024 5:25 AM EDT 03/19/2024 3:52 PM EDT Narrative Resulting Agency Comment Spec In Lab Horace Hancock MD CHEMISTRY ORDERABLES [facility] [place] [id number] * (ABNORMAL) Differential, Automated (03/19/2024 5:25 AM EDT) Neutrophils % 90.0 % [facility] Neutr Abs (ANC) 16.73(H) 1.70 - 6.10 x10(3)/ L [facility] Lymphocytes % 5.2 % [facility] Lymphocytes Abs 1.0 0.9 - 3.2 x10(3)/[facility] Monocytes % 4.2 % [facility] Monocyte Abs 0.8 0.3 - 0.9 x10(3)/ L [facility] Eosinophils % 0.0 % [facility] Eosinophils Abs 0.0 0.0 - 0.4 x10(3)/[facility] Basophils % 0.2 % [facility] Basophils Abs 0.0 0.0 - 0.1 x10(3)/ L [facility] Immature Gran % 0.40 % [facility] Comment: Immature granulocytes(IG's)percentage and absolute count will include metamyelocytes, myelocytes, and promyelocytes. Blood smears from CBCs yielding IG's will be scanned manually for concordance. If this scan disagrees with the automated IG or if promyelocytes are noted, a manual differential will be performed. Lesia Gran Abs 0.08(H) 0.00 - 0.04 x10(3)/mc L [facility] Blood 03/19/2024 5:25 AM EDT 03/19/2024 5:34 AM EDT Narrative Resulting Agency Comment Spec In Lab Ganesh Nguyen MD HEMATOLOGY ORDERA BLES Performing Organization Address City/[facility]/ZIP Co de Phone Number [facility] [place] [address] * (ABNORMAL) Hemogram (03/19/2024 5:25 AM EDT) WBC 18.6(H) 4.0 - 9.5 x10(3)/[facility] RBC 4.92 4.00 - 5.21 x10(6)/[facility] Hemoglobin 13.7 11.7 - 15.5 g/dL [facility] Hematocrit 40.6 35.7 - 45.8 % [facility] MCV 82.5(L) 82.6 - 94.4 [facility] MCH 27.8 27.1 - 32.0 pg [facility] MCHC 33.7 31.7 - 35.0 g/dL [facility] Platelets 285 145 - 357 x10(3)/[facility] RDWSD 41.1 37.0 - 46.0 [facility] RDWCV 13.6 11.5 - 14.1 % [facility] MPV 9.5 7.6 - 12.9 [facility] nRBC % Auto 0.0 % [facility] nRBC Abs Auto 0.000 0.000 - 0.000 x10(3)/[facility] Blood 03/19/2024 5:25 AM EDT 03/19/2024 5:34 AM EDT Narrative Resulting Agency Comment Spec In Lab Ganesh Nguyen MD HEMATOLOGY ORDERA BLES [facility] [place] [address] * Lipid Panel (Reflex Direct LDL) (03/19/2024 5:25 AM EDT) Chol, Total 324 mg/dL [facility] Comment: Desirable: ? <200 mg/dL Borderline High: 200-239 mg/dL Higher: ?>qk=190 mg/dL Triglycerides 200 mg/dL [facility] Comment: Normal: ?<150 mg/dL Borderline High: 150-199 mg/dL High: ?200-499 mg/dL Very High: ? >mn=048 mg/dL HDL 68 mg/dL [facility] Comment: Females: High Risk: <50 mg/dL Males: High Risk: <40 mg/dL LDL Cholesterol 216 mg/dL [facility] Comment: Desirable: ? <100 mg/dL Above Desirable: 100-129 mg/dL Borderline High: 130-159 mg/dL High: ?160-189 mg/dL Very High: ? >iy=567 mg/dL Lipid Interpretation See Note [facility] Comment: It is important to [...] ACC/AHA Guidelines (most recently Jw winslow al. JAC 06/17/22): For individuals with atherosclerotic cardiovascular disease (ASCVD)or LDL >js=832 mg/dL, use a high-intensity statin (40-80 mg [...] Lab Ganesh Nguyen MD CHEMISTRY ORDERAB LES [facility] [place] [address] * (ABNORMAL) Troponin (03/19/2024 5:25 AM EDT) Troponin-T HS 1,276(H) <=14 ng/L [facility] Comment: This patient's troponin T [...] troponin value can be found in the [facility] Test Catalog Troponin - [facility] Test Catalog Reference: Fourth Bosque Definition of Myocardial Infarction. Journal of the [employer] [employer] 2018;72:5228-1168 Blood 03/19/2024 5:25 AM EDT 03/19/2024 5:34 AM EDT Narrative Resulting Agency Comment Spec In Lab Ganesh Nguyen MD CHEMISTRY ORDERAB LES Performing Organization Address [facility] Co de Phone Number [facility] [place] [address] * APTT (03/19/2024 5:25 AM EDT) PTT 29 25 - 37 sec [facility] Comment: The PTT is NOT appropriate for heparin monitoring. Use the Anti-Xa level for heparin monitoring (HEP UFH) or LMWH monitoring (HEP LMW). A PTT less than 37 seconds generally indicates adequate hemostasis. Blood 03/19/2024 5:25 AM EDT 03/19/2024 5:34 AM EDT Narrative Resulting Agency Comment Spec In Lab Ganesh Nguyen MD HEMATOLOGY ORDERA BLES Performing Organization Address [facility] Co de Phone Number [facility] [place] [address] * Prothrombin Time (03/19/2024 5:25 AM EDT) PT 10.9 9.4 - 12.5 sec [facility] INR 1.0 [facility] Comment: An INR <2.0 indicates [...] Lab Ganesh Nguyen MD HEMATOLOGY ORDERA BLES [facility] [place] [address] * (ABNORMAL) Comprehensive metabolic panel (non-fasting) (03/19/2024 5:25 AM EDT) Glucose Lvl 181 65 - 199 mg/dL [facility] Comment:Diabetes: >=200 mg/d L plus symptoms BUN 14 8 - 18 mg/dL [facility] Creatinine 0.91 0.70 - 1.20 mg/dL [facility] Sodium 137 135 - 145 mmol/L [facility] Potassium 4.2 3.5 - 5.0 mmol/L [facility] Comment: Please note: ??Patients with WBC >100,000 may have falsely elevated Potassium levels. ??For accurate Potassium quantification in these patients send serum separator tube (gold top) for subsequent determinations. ??Contact the Clinical Chemistry Laboratory if there are any questions. Chloride 100 98 - 107 mmol/L [facility] CO2 22 22 - 31 mmol/L [facility] Anion Gap 15 5 - 15 mmol/L [facility] Calcium 8.7 8.5 - 10.5 mg/dL [facility] Total Protein 7.2 6.1 - 8.0 g/dL [facility] Albumin 4.5 3.2 - 5.2 g/dL [facility] AST 95(H) 0 - 30 unit/L [facility] Comment:result rechecked-bz ALT 31(H) 0 - 30 unit/L [facility] Alk Phos 70 35 - 105 unit/L [facility] Total Bilirubin 0.5 0.2 - 1.3 mg/dL [facility] Estimated GFR 72 >=60 mL/min/1. 73 m?? [facility] Comment: This patient's estimated GFR [...] Lab Ganesh Nguyen MD CHEMISTRY ORDERAB LES [facility] [place] [address] * EKG 12 Lead (03/19/2024 2:23 AM EDT) Ventricular rate 67 BPM MUSE SYSTEM Atrial Rate 67 BPM MUSE SYSTEM P-R Interval 152 ms MUSE SYSTEM QRS Duration 78 ms MUSE SYSTEM Q-T Interval 500 ms MUSE SYSTEM QTC Calculated (Bezet) 528 ms MUSE SYSTEM Calculated P [place] 54 degrees MUSE SYSTEM Calculated R [place] 56 degrees MUSE SYSTEM Calculated T [place] 31 degrees MUSE SYSTEM INTERPRETATION Normal sinus rhythm Prolonged QT Abnormal ECG No previous ECGs available Confirmed by MD Ambrosio David ([id number]) on 03/23/2024 8:10:32 AM MUSE SYSTEM 03/19/2024 2:23 AM EDT 03/23/2024 8:10 AM EDT Ganesh Nguyen MD ECG ORDERABLES MUSE SYSTEM * (ABNORMAL) Differential, Automated (03/19/2024 2:20 AM EDT) Neutrophils % 89.8 % [facility] Neutr Abs (ANC) 15.44(H) 1.70 - 6.10 x10(3)/ L [facility] Lymphocytes % 6.4 % [facility] Lymphocytes Abs 1.1 0.9 - 3.2 x10(3)/[facility] Monocytes % 2.9 % [facility] Monocyte Abs 0.5 0.3 - 0.9 x10(3)/[facility] Eosinophils % 0.1 % [facility] Eosinophils Abs 0.0 0.0 - 0.4 x10(3)/[facility] Basophils % 0.3 % [facility] Basophils Abs 0.0 0.0 - 0.1 x10(3)/[facility] Immature Gran % 0.50 % [facility] Comment: Immature granulocytes(IG's)percentage and absolute count will include metamyelocytes, myelocytes, and promyelocytes. Blood smears from CBCs yielding IG's will be scanned manually for concordance. If this scan disagrees with the automated IG or if promyelocytes are noted, a manual differential will be performed. Lesia Gran Abs 0.08(H) 0.00 - 0.04 x10(3)/ L [facility] Blood 03/19/2024 2:20 AM EDT 03/19/2024 2:59 AM EDT Narrative Resulting Agency Comment Spec In Lab Ganesh Nguyen MD HEMATOLOGY ORDERA BLES [facility] [place] [address] * (ABNORMAL) Hemogram (03/19/2024 2:20 AM EDT) [facility] WBC 17.2(H) 4.0 - 9.5 x10(3)/[facility] RBC 4.70 4.00 - 5.21 x10(6)/[facility] Hemoglobin 13.3 11.7 - 15.5 g/dL [facility] Hematocrit 38.7 35.7 - 45.8 % [facility] MCV 82.3(L) 82.6 - 94.4 [facility] MCH 28.3 27.1 - 32.0 pg [facility] MCHC 34.4 31.7 - 35.0 g/dL [facility] Platelets 281 145 - 357 x10(3)/[facility] RDWSD 41.0 37.0 - 46.0 [facility] RDWCV 13.7 11.5 - 14.1 % [facility] MPV 9.7 7.6 - 12.9 [facility] nRBC % Auto 0.0 % [facility] nRBC Abs Auto 0.000 0.000 - 0.000 x10(3)/[facility] Blood 03/19/2024 2:20 AM EDT 03/19/2024 2:59 AM EDT Narrative Resulting Agency Comment Spec In Lab Ganesh Nguyen MD HEMATOLOGY ORDERA BLES [facility] [place] [address] * (ABNORMAL) Troponin (03/19/2024 2:20 AM EDT) [facility] Troponin-T HS 960(H) <=14 ng/L [facility] Comment: This patient's troponin T [...] troponin value can be found in the [facility] Test Catalog Troponin - [facility] Test Catalog Reference: Fourth Bosque Definition of Myocardial Infarction. Journal of the [employer] 2018;72:7964-0632 Blood 03/19/2024 2:20 AM EDT 03/19/2024 2:59 AM EDT Narrative Resulting Agency Comment Spec In Lab Ganesh Nguyen MD CHEMISTRY ORDERAB LES Performing Organization Address City/[facility]/ZIP Co de Phone Number [facility] [place] [address] * (ABNORMAL) APTT (03/19/2024 2:20 AM EDT) PTT 123(Criti lewis) 25 - 37 sec [facility] Comment: Critical Result called by [...] MD HEMATOLOGY ORDERA BLES Performing Organization Address City/[facility]/ZIP Co de Phone Number [facility] [place] [address] * Prothrombin Time (03/19/2024 2:20 AM EDT) PT 11.7 9.4 - 12.5 sec [facility] INR 1.0 [facility] Comment: An INR <2.0 indicates [...] MD HEMATOLOGY ORDERA BLES Performing Organization Address [facility] de Phone Number [facility] [place] [address] * (ABNORMAL) Hepatic Function Panel (03/19/2024 2:20 AM EDT) Pathologist [facility] Total Protein 6.7 6.1 - 8.0 g/dL [facility] Albumin 4.3 3.2 - 5.2 g/dL [facility] AST 49(H) 0 - 30 unit/L [facility] [facility] ALT 26 0 - 30 unit/L [facility] Alk Phos 67 35 - 105 unit/L [facility] Total Bilirubin 0.4 0.2 - 1.3 mg/dL [facility] Bili, Direct 0.1 0.0 - 0.3 mg/dL [facility] Blood 03/19/2024 2:20 AM EDT 03/19/2024 2:59 AM EDT Narrative Resulting Agency Comment Spec In Lab Ganesh Nguyen MD CHEMISTRY ORDERAB LES [facility] [place] [address] * (ABNORMAL) pro-Brain Natriuretic Peptide (03/19/2024 2:20 AM EDT) ProBNP 529(H) <=124 pg/mL [facility] Blood 03/19/2024 2:20 AM EDT 03/19/2024 2:59 AM EDT Narrative Resulting Agency Comment Spec In Lab Ganesh Nguyen MD CHEMISTRY ORDERAB LES Performing Organization Address [facility] Co de Phone Number [facility] [place] [address] * Phosphorus (03/19/2024 2:20 AM EDT) Pathologist [facility] Phosphorus 3.8 2.5 - 4.5 mg/dL [facility] Blood 03/19/2024 2:20 AM EDT 03/19/2024 2:59 AM EDT Narrative Resulting Agency Comment Spec In Lab Ganesh Nguyen MD CHEMISTRY ORDERAB LES Performing Organization Address [facility] Co de Phone Number [facility] [place] [address] * Magnesium (03/19/2024 2:20 AM EDT) Pathologist [facility] Magnesium 0.71 0.69 - 1.07 mmol/L [facility] Blood 03/19/2024 2:20 AM EDT 03/19/2024 2:59 AM EDT Narrative Resulting Agency Comment Spec In Lab Ganesh Nguyen MD CHEMISTRY ORDERAB LES Performing Organization Address [facility] Co de Phone Number [facility] [place] [address] * (ABNORMAL) Basic Metabolic Panel (non-fasting) (03/19/2024 2:20 AM EDT) Glucose Lvl 160 65 - 199 mg/dL [facility] Comment:Diabetes: >=200 mg/d L plus symptoms BUN 14 8 - 18 mg/dL [facility] Creatinine 0.88 0.70 - 1.20 mg/dL [facility] Sodium 137 135 - 145 mmol/L [facility] Potassium 3.9 3.5 - 5.0 mmol/L [facility] Comment: Please note: ??Patients with WBC >100,000 may have falsely elevated Potassium levels. ??For accurate Potassium quantification in these patients send serum separator tube (gold top) for subsequent determinations. ??Contact the Clinical Chemistry Laboratory if there are any questions. Chloride 100 98 - 107 mmol/L [facility] CO2 20(L) 22 - 31 mmol/L [facility] Anion Gap 17(H) 5 - 15 mmol/L [facility] Calcium 8.2(L) 8.5 - 10.5 mg/dL [facility] Estimated GFR 75 >=60 mL/min/1. 73 m?? [facility] Comment: This patient's estimated GFR [...] Lab Ganesh Nguyen MD CHEMISTRY ORDERAB LES [facility] [place] [address] * (ABNORMAL) Point of Care Blood Gas Historical (03/19/2024 1:41 AM EDT) POC pH 7.28(Criti lewis) 7.35 - 7.45 [facility] P[facility] PCO2 40 35 - 45 mmHg [facility] PO2 84(L) 85 - 104 mmHg [facility] Base Excess -8.0(L) -3.0 - 3.0 mmol/L [facility] HCO3 18.6(L) 20.0 - 26.0 mmol/L [facility] TCO2 20(L) 22 - 31 mmol/L [facility] Sodium 134(L) 135 - 145 mmol/L [facility] Potassium 3.4(L) 3.5 - 5.0 mmol/L [facility] Ionized Ca 1.09(L) 1.15 - 1.33 mmol/L [facility] Hematocrit 38.0 34.0 - 45.0 % [facility] Calc Hgb 12.9 11.2 - 15.7 g/dL [facility] Blood 03/19/2024 1:41 AM EDT 03/19/2024 1:41 AM EDT Kathryn Walker MD CHEMISTRY ORDERABL ES Performing Organization Address City/State/[facility] Co de Phone Number [facility] [place] [address] * CARDIAC CATHETERIZATION (03/19/2024 1:36 AM EDT) Anatomical Region Laterality Modality Other Narrative 03/19/2024 7:19 AM EDT ?[facility] ? Cardiac Catheterization/Intervention Report ? Patient Name: Warnaar, Isa A. ? Procedure Date: 03/19/2024 ? A #: [id number] ? Primary Physician: Ramo Roy ? Case #: [id number] ? File Name: [id number] ? Catheterization Order Number: [id number] ? [facility] ? Final Report [place], [place] ? Patient Name: ? Isa A. Warnaar ? ID#: ?[id number] ? : ?1965 ? Procedure Date: ? March 19, 2024 ? Case #: ? [id number] ? Room: ? 6 ? Case Physician: [...] procedure was Emergent. The indication for ?the floating labor gang supervisor visit is ACS less than or [...] ?3.5 guiding catheter and a 3.5 Fr [place] 20 Mhz using auto 1 ?mm/sec pullback. [...] ? A premounted 3.00 x 08 mm [place] (JAHAIRA) was deployed ? with a maximum inflation pressure of 12 atmospheres. ? Another stent insertion was accomplished through a 6 Fr. EBU ? 3.5 guide. ??A premounted 2.00 x 08 mm [place] (JAHAIRA) was ? deployed. ? The final [...] dose administered prior to arrival in the 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 ?Recommended anti-platelet/anti-thrombotic regimen: ?Start aspirin 81 mg daily now and continue for indefinitely. ?Start clopidogrel 75 mg daily now and continue for 12 months then stop. ?These recommendations are made at the time of the intervention. Patient ?and provider preferences or a changing clinical situation may require ?modification of this regimen. Consult [facility] Interventional Cardiology for ?questions. ?The 1 year [...] against any medical treatment. Consult ?http://tools.acc.org/DAPTriskapp/#!/content/calculator/ or [facility] ?Interventional Cardiology for questions ? Conclusions: ?* [...] Procedure Note Ramo Roy MD - 03/21/2024 [facility] Cardiac Catheterization/Intervention Report Patient Name: Isa Ro Procedure Date: 03/19/2024 A #: [id number] Primary Physician: Ramo Roy Case #: [id number] File Name: [id number] Catheterization Order Number: [id number] [facility] FinalReport [place], [place] Patient Name: Isa Ro ID#:[id number] :1965 Procedure Date: March 19, 2024 Case [...] patientwas designated as ASA Class IV. The [facility] clinical frailty scale is 3: Managing Well. Diagnostic Tests: Prior Coronary Angiography: Prior coronary angiography was performed on 12/15/2014. Electrocardiography: EKG was assessed by ECG. EKG was Abnormal. EKG showed STDeviation >= 0.5 mm and other abnormality. Medications Prior to Procedure: Aspirin. Indications for Diagnostic Cath: The priority of the diagnostic procedure was Emergent. Theindication for the floating labor gang supervisor visit is ACS less than or [...] 3.5 guiding catheter and a 3.5 Fr [place] 20 Mhz usingauto 1 mm/sec pullback. Imaging [...] The priority for the procedure was Emergent.The [facility] indication for the procedure was STEMI-Immediate PCI [...] The lesion was predilated with a 2.50mm [id number] MM balloon with a maximum inflation pressure of 14atmospheres. A premounted 3.00 x 08 mm [place] (JAHAIRA) wasdeployed with a maximum inflation pressure of 12 atmospheres. Another stent insertion was accomplished through a 6 Fr.EBU 3.5 guide. A premounted 2.00 x 08 mm [place] (JAHAIRA)was deployed. The final outcome was defined [...] dose administered prior to arrival in the 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 Recommended anti-platelet/anti-thrombotic regimen: Start aspirin 81 mg daily now and continue for indefinitely. Start clopidogrel 75 mg daily now and continue for 12 months thenstop. These recommendations are made at the time of the intervention.Patient and provider preferences or a changing clinical situation mayrequire modification of this regimen. Consult [facility] Interventional Cardiologyfor questions. The 1 year bleeding [...] or against any medical treatment.Consult http://tools.acc.org/DAPTriskapp/#!/content/calculator/ or [facility] Interventional Cardiology for questions Conclusions: * One [...] POC pH 7.20(Criti lewis) 7.35 - 7.45 [facility] POC PCO2 38 35 - 45 mmHg [facility] POC PO2 74(L) 85 - 104 mmHg [facility] POC Base Excess -14.0(L) -3.0 - 3.0 mmol/L [facility] POC HCO3 14.5(L) 20.0 - 26.0 mmol/L [facility] POC TCO2 16(L) 22 - 31 mmol/L [facility] POC Sodium 116(Critic al) 135 - 145 mmol/L [facility] POC Potassium 3.1(L) 3.5 - 5.0 mmol/L [facility] POC Ionized Ca 1.04(L) 1.15 - 1.33 mmol/L [facility] POC Hematocrit 39.0 34.0 - 45.0 % [facility] POC Calc Hgb 13.3 11.2 - 15.7 g/dL [facility] Blood 03/19/2024 1:26 AM EDT 03/19/2024 1:26 AM EDT Kathryn Walker MD CHEMISTRY ORDERABL ES Performing Organization Address City/State/[facility] Co de Phone Number [facility] [place] [address] documented in this encounter Visit Diagnoses Not [...] PRN, Starting on 03/20/24 at 1137, Until Tu03/22/24 at 1411, Heartburn, Routine aspirin chewable tablet [...] 75 mg, Oral, DAILY, First dose on 03/19/24 [...] (50 mcg/mL) multi-dose injection PRN, Starting on 03/19/24 at [...] 0857 (Given - Provider: Lubna Cruz RN) aspirin chewable tablet 81 mg 81 mg, [...] Routine documented in this encounter Care Teams Conveyor Attendant Relationship Specialty Start Date End Date None None PCP - General 03/19/24 documented as of this encounter
--- OUTSIDE RECORDS SUMMARY | 2024-04-11 10:16 | XMS_ITS | Encounter Summary ---
Author Organization [facility] Address [facility] [place] [address] Care Team Providers Care Plow Holder Name Role Phone None Primary Care Provider Unavailabl e Reason for Referral * Consultation (Routine) - Authorized Specialty Diagnoses / Procedures Referred By Contac t Referred To Contact Cardiology Diagnoses ST elevation myocardial infarction involving left anterior descending (LAD) coronary artery Kathryn Walker MD [facility] [place] [address] [facility] [address] [place] [address] Referral ID Status Reason Start Date Expiration Date Visits Requested Visits Authorized [id number] Authorized Consult, Test & Treat 03/22/2024 09/18/2024 1 1 * Consultation (Routine) - Authorized Specialty Diagnoses / Procedures Referred By Contac t Referred To Contact Cardiology Diagnoses ST elevation myocardial infarction involving left anterior descending (LAD) coronary artery Horace Hancock MD [facility] [place] [address] Cardiac Rehab, [address] [place] [address] Referral ID Status Reason Start Date Expiration Date Visits Requested Visits Authorized [id number] Authorized Consult, Test & Treat 03/22/2024 09/18/2024 36 36 Reason for Visit * Auth/Cert (Routine) Specialty Diagnoses / Procedures Referred By Contac t Referred To Contact Diagnoses Acute ST elevation myocardial infarction (STEMI) due to occlusion of left anterior descending (LAD) coronary artery stemi Procedures EMERGENCY IPI Destin Ambrosio MD [facility] [place] [address] [facility] Referral ID Status Reason Start Date Expiration Date Visits Re quested Visits Authorized [id number] 1 1 Encounter Details Date Type Department Care Team (Latest Contact Info) Description 03/19/2024 12:37 AM EDT - 03/22/2024 12:10 PM EDT Hospital Encounter Heart and Vascular Unit Level 4 Wing A at [place] [phone] Destin Ambrosio MD [facility] [place] [address] Horace Hancock MD [facility] [place] [address] Kathryn Walker MD [facility] [place] [address] ST elevation myocardial infarction involving left anterior descending (LAD) coronary artery; Chest pain, unspecified type Discharge Disposition: Home Social History Tobacco Use Types Packs/Day Years Used Date Smoking Tobacco: Former Smokeless Tobacco: Never Alcohol Use Standard Drinks/Week Comments Yes 14 (1 standard drink = 0.6 oz pu re alcohol) [facility] Utilities Answer Date Recorded In the past 12 months has [facility] [employer], gas, oil, or water [employer] threatened to shut off services in your [...] any time in the past 12 m [facility], were you homeless or living in a fdc (including now)? No 03/21/2024 DH IPV Inpatient [...] Isa Ro Patient Age: 59 y.o. Language: Slovak Race: White Ethnicity: Not nor Admit date: [...] hypoxemic and hypercapnic respiratory failure in the rd lab technician, potentially also due to sedation. Patient [...] given mildly reduced LVEF [ ] f/u [facility] cardiology scheduled. [facility] cardiology referral sent Inpatient Provider Contact Information: Kathryn Walker MD [phone] For questions regarding this document or issues relating to this hospitalization on the Medical Service, please contact your inpatient physician through the [facility] Clinical Rn Liaison . Issues afterhours and on weekends will [...] 03/19/2024 8:37 AM) Result Value WORKSTATION ID [id number] Narrative EXAMINATION: XR CHEST ONE VIEW CLINICAL [...] who have questions please contact the health health care coach that requested your imaging first. Cardiac Catheterization (Exam End: 03/19/2024 1:36 AM) Narrative [facility] Cardiac Catheterization/Intervention Report Patient Name: Isa Ro Procedure Date: 03/19/2024 A #: [id number] Primary Physician: Ramo Roy Case #: [id number] File Name: [id number] Catheterization Order Number: [id number] [facility] Legal Records Manager [facility] Final Report [place], [place] Patient Name: Isa Ro ID#: [id number] : 1965 Procedure Date: March 19, 2024 [...] designated as ASA Class IV. The [facility] clinical frailty scale is 3: Managing Well. Diagnostic Tests: Prior Coronary Angiography: Prior coronary angiography was performed on 12/15/2014. Electrocardiography: EKG was assessed by ECG. EKG was Abnormal. EKG showed ST Deviation >= 0.5 mm and other abnormality. Medications Prior to Procedure: Aspirin. Indications for Diagnostic Cath: The priority of the diagnostic procedure was Emergent. The indication for the rd lab technician visit is ACS less than or [...] 3.5 guiding catheter and a 3.5 Fr [place] [facility] [place] 20 Mhz using auto 1 mm/sec pullback. [...] for the procedure was Emergent. The [facility] indication for the procedure was STEMI-Immediate [...] A premounted 3.00 x 08 mm Alberto [place]cad[place] (JAHAIRA) was deployed with a maximum inflation pressure of 12 atmospheres. Another stent insertion was accomplished through a 6 Fr. EBU 3.5 guide. A premounted 2.00 x 08 mm [place]cad[place] (JAHAIRA) was deployed. The final outcome was [...] dose administered prior to arrival in the rd lab technician. Recommended anti-platelet/anti-thrombotic regimen: Start aspirin 81 mg daily now and continue for indefinitely. Start clopidogrel 75 mg daily now and continue for 12 months then stop. These recommendations are made at the time of the intervention. Patient and provider preferences or a changing clinical situation may require modification of this regimen. Consult [facility] Interventional Cardiology for questions. The 1 year [...] against any medical treatment. Consult http://tools.acc.org/DAPTriskapp/#!/content/calculator/ or [facility] Interventional Cardiology for questions Conclusions: * One [...] decreased and new wall motion abnormalities. Procedure Complete-58091. Image enhancement Definity was used for left [...] LAD in 03/2014, HLD, who presented to [facility] with chest pain. She developed chest pain around 2100 on 03/18 which prompted her to call EMS. She was given 325mg of aspirin and nitroglycerin. On arrival to [facility], she was found to have an EKG suggestive of anterior STEMI for which she was given half dose TNKfor systemic lysis prior to speaking with Dr. Herrera, on-call gas regulator repairer helper at [facility]. She was subsequently transferred directly to the [facility] rd lab technician where coronary angiography revealed a 100% [...] away. Stay on the phone. The emergency package line operator will tell you what to do. [...] of 8AM-5PM please call the Cardiology Clinic [phone] to speak with a nurse. All other hours please call the Hospital Clinical Rn Liaison [phone] and ask to speak to the cardiovascular hospitalist on-call. Return to work: One week Follow up Appointments: Doctor Where Phone # Date Time PCP MELECIO Polanco [address] [place], [place] [address] 04/04/24 7:55 AM Pier Hand Herlinda Weaver PA-C [facility] Cardiology Clinic [phone] 05/09/24 10:40 AM (pleasearrive by 10:20 AM) *A referral has also been placed to [facility] cardiology, though you will need to follow-up with them regarding scheduling appointments at [phone] General Instructions None Future Appointments and Orders Future Appointments and Orders Future Appointments Provider Department Dept Phone 05/09/2024 10:40 AM Herlinda Weaver PA Cardiology at [facility] Arrive at: Endodontics Dentist Area [phone] Future Orders Complete By Expires Referral to Cardiac Rehab [TPQ728 Custom] As directed Process Instructions: If no progress note charted, please enter Clinical details in comments. Scheduling Instructions: Questions: My question or request is: s/p STEMI- cardiac rehab at [facility] Referral to Cardiology [REF12 Custom] As directed Process Instructions: If no progress note charted, please enter Clinical details in comments. Scheduling Instructions: Questions: My question or request is: s/p STEMI Discharge References/Attachments None Greater than 30 minutes was spent on this discharge including documentation, [id number] time withthe patient, patient education, mental health orderly, coordination with pharmacy and other patient care. [...] away. Stay on the phone. The emergency package line operator will tell you what to do. [...] cardiac rehab has also been placed to [facility]. Call your doctor if: Chest pain, dyspnea, pain or swelling in legs occurs, or for weight gain of 2 pounds overnight or 5pounds in 5 days. If you have non-emergent questions, prior to your follow-up visit call: Thursday-Thursday between the hours of 8AM-5PM please call the Cardiology Clinic [phone] to speak with a nurse. All other hours please call the Hospital Clinical Rn Liaison [phone] and ask to speak to the cardiovascular hospitalist on-call. Return to work: One week Follow up Appointments: Doctor Where Phone # Date Time PCP MELECIO Polanco [address] [place], [place] [address] 04/04/24 7:55 AM Pier Hand Herlinda Weaver PA-C [facility] Cardiology 4A Clinic [phone] 05/09/24 10:40 AM (pleasearrive by 10:20 AM) *A referral has also been placed to [facility] cardiology, though you will need to follow-up with them regarding scheduling appointments at [phone] documented in this encounter Medications at Time [...] agreed to participate in cardiac rehab at [facility] following discharge Review of Systems: Review of [...] and new wall motion abnormalities. Assessment: Isa oR is a 59 y.o. female with history of coronary disease s/p PCI to LAD in 2013 who presents with anterolateral STEMI with occluded prox-LAD. Elevated EDP in this context is not unexpected but does seem to have resulted in hypoxemia in the rd lab technician. She was also a bit hypercapnic [...] pt re: Losartan/GDMT consideration -Cardiac Rehab at [facility] following discharge -Telemonitoring x72 hours -Plan for discharge tomorrow -Cardiology appointment scheduled 05/09/2024 at 10:40 AM t [facility] #Significant HLD -LDL 324 -Atorvastatin 80mg daily [...] to have resulted in hypoxemia in the rd lab technician. 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 I asked [...] Mcbride MD - 03/19/2024 2:50 AM EDT [facility] TeleICU Initial Assessment Note I established audio/visual communication with the patient's room, reviewed the eDH. History and Assessment: 59 yo F [address] from [facility] for a STEMI alert. Received ASA [...] => BiPAP started Following procedure, transferred to [facility] - able to be weaned to [...] 10:00 PM Hospital to which patient presented: [facility] If Hospital to which patient presented= [facility]: ED via EMS Date and Time of [...] Not contraindicated Plan STEMI Alert called: Yes Legal Records Manager Activated by: Bearing Grinder Initial Disposition: Admit Legal Records Manager documented in this encounter H&P Notes [...] to LAD in 03/2014, HLD,who presented to [facility] with chest pain. She developed chest pain around 2100 on 03/18 which prompted her to call EMS. She was given 325mg of aspirin and nitroglycerin. On arrival to [facility], she was found to have an EKG suggestive of anterior STEMI for which she was given half dose TNK for systemic lysis prior to speaking with Dr. Herrera, on-call gas regulator repairer helper at [facility]. She was subsequently transferred directly to the [facility] rd lab technician where coronary angiography revealed a 100% [...] to have resulted in hypoxemia in the rd lab technician. She was also a bit hypercapnic [...] Cardiopulmonary Resuscitation - Inpatient Ganesh Nguyen MD Bearing Grinder [id number] documented in this encounter Miscellaneous Notes [...] Care: Contact information for follow-up Cardiac Rehab, [facility] [address] [facility] [address] Cardiology, [facility] [address] [facility] [address] Transportation: family or friend will provide Functional [...] 03/21/2024 4:02 PM EDT Patient completed a [place] advance directive. Patient identified her sister Stacia [...] N/A ; Prescription Coverage: Yes Preferred Pharmacy: [place], [place] - [address] [place] [address] [address] [place] [address] [address] [facility] [address] [id number] - [address] [address] [facility] - [facility], [place] - [address] [facility] [address] [facility] [address] Advance Care Planning: Attempt Cardiopulmonary Resuscitation - Inpatient <no information> -Advanced Directive: No, need to discuss (RS referral sent for AD discussion) Current Functional Ability: Assistive Person Functional Status Prior to Admission: Independent Home Environment: Others in the home: child(lucian), minor (lives with her 15yo son). Current Living Arrangements: home/apartment/condo. Accessibility Concerns:house with 3 floors and 2 [address]. Current DME: none [address] [facility] [address] Social & Family Supports: All names listed below confirmed with patient as current and correct Extended Emergency Contact Information Primary Emergency Contact: Tiffany oR, [facility] Mobile Relation: Mother Current Care Provided by: [...] RS for AD discussion today. Registered Nurse Punch Card Operator / Fireworks Maker will continue to follow patient???s progress and [...] in an outpatient cardiac rehabilitation program at [facility] was discussed. Patient agrees to a referral [...] Operative Note Patient Name: Isa Ro : [id number] MR#: [id number] Case Date: 03/19/2024 Surgeon: Surgeons and Role: [...] AM EDT Office Visit Cardiology at [address] [address] Herlinda Weaver PA [facility] [place] [address] Scheduled Referrals Name Type Priority Associated Diagnoses [...] 5:06 AM EDT) Neutrophils % 71.6 % [facility] Neutr Abs (ANC) 8.34(H) 1.70 - 6.10 x10(3)/ L [facility] Lymphocytes % 17.4 % [facility] Lymphocytes Abs 2.0 0.9 - 3.2 x10(3)/[facility] Monocytes % 8.2 % [facility] Monocyte Abs 1.0(H) 0.3 - 0.9 x10(3)/[facility] Eosinophils % 2.2 % [facility] Eosinophils Abs 0.3 0.0 - 0.4 x10(3)/[facility] Basophils % 0.3 % [facility] Basophils Abs 0.0 0.0 - 0.1 x10(3)/[facility] Immature Gran % 0.30 % [facility] Comment: Immature granulocytes(IG's)percentage and absolute count will include metamyelocytes, myelocytes, and promyelocytes. Blood smears from CBCs yielding IG's will be scanned manually for concordance. If this scan disagrees with the automated IG or if promyelocytes are noted, a manual differential will be performed. Lesia Gran Abs 0.03 0.00 - 0.04 x10(3)/ L [facility] Blood 03/22/2024 5:06 AM EDT 03/22/2024 5:12 AM EDT Narrative Resulting Agency Comment Spec In Lab Horace Hancock MD HEMATOLOGY ORDERABLE S [facility] [place] [address] * (ABNORMAL) Hemogram (03/22/2024 5:06 AM EDT) Pathologist [facility] WBC 11.6(H) 4.0 - 9.5 x10(3)/[facility] RBC 4.80 4.00 - 5.21 x10(6)/[facility] Hemoglobin 13.5 11.7 - 15.5 g/dL [facility] Hematocrit 40.3 35.7 - 45.8 % [facility] MCV 84.0 82.6 - 94.4 [facility] MCH 28.1 27.1 - 32.0 pg [facility] MCHC 33.5 31.7 - 35.0 g/dL [facility] Platelets 232 145 - 357 x10(3)/[facility]ORY RDWSD 42.2 37.0 - 46.0 [facility] RDWCV 13.5 11.5 - 14.1 % [facility] MPV 9.7 7.6 - 12.9 [facility] nRBC % Auto 0.0 % [facility] nRBC Abs Auto 0.000 0.000 - 0.000 x10(3)/[facility] Blood 03/22/2024 5:06 AM EDT 03/22/2024 5:12 AM EDT Narrative Resulting Agency Comment Spec In Lab Horace Hancock MD HEMATOLOGY ORDERABLE S [facility] [place] [address] * Basic Metabolic Panel (non-fasting) (03/22/2024 5:06 AM EDT) Pathologist [facility] Glucose Lvl 107 65 - 199 mg/dL [facility] Comment:Diabetes: >=200 mg/d L plus symptoms BUN 18 8 - 18 mg/dL [facility] Creatinine 0.87 0.70 - 1.20 mg/dL [facility] Sodium 138 135 - 145 mmol/L [facility] Potassium 4.1 3.5 - 5.0 mmol/L [facility] Comment: Please note: ??Patients with WBC >100,000 may have falsely elevated Potassium levels. ??For accurate Potassium quantification in these patients send serum separator tube (gold top) for subsequent determinations. ??Contact the Clinical Chemistry Laboratory if there are any questions. Chloride 104 98 - 107 mmol/L [facility] CO2 24 22 - 31 mmol/L [facility] Anion Gap 10 5 - 15 mmol/L [facility] Calcium 9.2 8.5 - 10.5 mg/dL [facility] Estimated GFR 76 >=60 mL/min/1. 73 m?? [facility] Comment: This patient's estimated GFR was [...] In Lab Horace Hancock MD CHEMISTRY ORDERABLES [facility] [place] [address] * Magnesium (03/22/2024 5:06 AM EDT) Magnesium 0.90 0.69 - 1.07 mmol/L [facility] Blood 03/22/2024 5:06 AM EDT 03/22/2024 5:12 AM EDT Narrative Resulting Agency Comment Spec In Lab Destin Ambrosio MD CHEMISTRY ORDERABLES Performing Organization Address City/[facility]/[place] [address] * (ABNORMAL) Differential, Automated (03/21/2024 2:57 AM EDT) Neutrophils % 63.0 % [facility] Neutr Abs (ANC) 6.70(H) 1.70 - 6.10 x10(3)/ L [facility] Lymphocytes % 24.9 % [facility] Lymphocytes Abs 2.6 0.9 - 3.2 x10(3)/[facility] Monocytes % 8.7 % [facility] Monocyte Abs 0.9 0.3 - 0.9 x10(3)/[facility] Eosinophils % 2.8 % [facility] Eosinophils Abs 0.3 0.0 - 0.4 x10(3)/[facility] Basophils % 0.3 % [facility] Basophils Abs 0.0 0.0 - 0.1 x10(3)/[facility] Immature Gran % 0.30 % [facility] Comment: Immature granulocytes(IG's)percentage and absolute count will include metamyelocytes, myelocytes, and promyelocytes. Blood smears from CBCs yielding IG's will be scanned manually for concordance. If this scan disagrees with the automated IG or if promyelocytes are noted, a manual differential will be performed. Lesia Gran Abs 0.03 0.00 - 0.04 x10(3)/[facility] Blood 03/21/2024 2:57 AM EDT 03/21/2024 3:03 AM EDT Narrative Resulting Agency Comment Spec In Lab Horace Hancock MD HEMATOLOGY ORDERABLE S Performing Organization Address City/[facility]/ZIP Co de Phone Number [facility] [place] [address] * (ABNORMAL) Hemogram (03/21/2024 2:57 AM EDT) WBC 10.6(H) 4.0 - 9.5 x10(3)/[facility] RBC 4.54 4.00 - 5.21 x10(6)/[facility] Hemoglobin 12.8 11.7 - 15.5 g/dL [facility] Hematocrit 38.2 35.7 - 45.8 % [facility] MCV 84.1 82.6 - 94.4 [facility] MCH 28.2 27.1 - 32.0 pg [facility] MCHC 33.5 31.7 - 35.0 g/dL [facility] Platelets 242 145 - 357 x10(3)/[facility] LABORATORY RDWSD 42.4 37.0 - 46.0 [facility] RDWCV 13.7 11.5 - 14.1 % [facility] MPV 9.5 7.6 - 12.9 [facility] nRBC % Auto 0.0 % [facility] nRBC Abs Auto 0.000 0.000 - 0.000 x10(3)/[facility] Blood 03/21/2024 2:57 AM EDT 03/21/2024 3:03 AM EDT Narrative Resulting Agency Comment Spec In Lab Horace Hancock MD HEMATOLOGY ORDERABLE S [facility] [address] [place] [address] * Basic Metabolic Panel (non-fasting) (03/21/2024 2:57 AM EDT) Glucose Lvl 98 65 - 199 mg/dL [facility] Comment:Diabetes: >=200 mg/d L plus symptoms BUN 15 8 - 18 mg/dL [facility] Creatinine 0.82 0.70 - 1.20 mg/dL [facility] Sodium 144 135 - 145 mmol/L [facility] Potassium 4.2 3.5 - 5.0 mmol/L [facility] Comment: Please note: ??Patients with WBC >100,000 may have falsely elevated Potassium levels. ??For accurate Potassium quantification in these patients send serum separator tube (gold top) for subsequent determinations. ??Contact the Clinical Chemistry Laboratory if there are any questions. Chloride 107 98 - 107 mmol/L [facility] CO2 25 22 - 31 mmol/L [facility] Anion Gap 12 5 - 15 mmol/L [facility] Calcium 9.2 8.5 - 10.5 mg/dL [facility] Estimated GFR 82 >=60 mL/min/1. 73 m?? [facility] Comment: This patient's estimated GFR was [...] In Lab Horace Hancock MD CHEMISTRY ORDERABLES [facility] [place] [address] * Magnesium (03/21/2024 2:57 AM EDT) Magnesium 0.91 0.69 - 1.07 mmol/L [facility] Blood 03/21/2024 2:57 AM EDT 03/21/2024 3:03 AM EDT Narrative Resulting Agency Comment Spec In Lab Destin Ambrosio MD CHEMISTRY ORDERABLES Performing Organization Address [facility] Co de Phone Number [facility] [place] [address] * Metanephrines, Fractionated Free, plasma (03/21/2024 2:57 AM EDT) Normetane Free 0.47 <0.90 nmol/L [facility] Comment: Test Performed by: [facility] [place] [address] Calender Operator: Chasity Hernandez Ph.D.; CLIA# [id number] Metanephr Free <0.20 <0.50 nmol/L [facility] Comment: ADDITIONAL INFORMATION This test was developed and its performance characteristics determined by [facility] in a manner consistent with CLIA requirements. This test has not been cleared or approved by the U.S. Food and Drug Administration. Test Performed by: [facility] [place] [address] Calender Operator: Chasity Hernandez Ph.D.; CLIA# [id number] Blood 03/21/2024 2:57 AM EDT 03/21/2024 11:29 AM EDT Narrative Resulting Agency Comment Spec In Lab Horace Hancock MD CHEMISTRY ORDERABLES Performing Organization Address City/[facility]/ZIP Co de Phone Number [facility] [place] [address] * Iron and TIBC (03/20/2024 10:38 AM EDT) Iron 57 30 - 150 mcg/dL [facility] TIBC 278 250 - 450 mcg/dL [facility] Iron Saturation 21 20 - 50 % [facility] Blood Venous Draw / Unknown 03/20/2024 10:38 AM EDT 03/20/2024 10:52 AM EDT Narrative Resulting Agency Comment Spec In Lab Horace Hancock MD CHEMISTRY ORDERABLES [facility] [place] [address] * (ABNORMAL) Differential, Automated (03/20/2024 10:38 AM EDT) Neutrophils % 73.1 % [facility] Neutr Abs (ANC) 9.60(H) 1.70 - 6.10 x10(3)/[facility] LABORATORY Lymphocytes % 17.3 % [facility] Lymphocytes Abs 2.3 0.9 - 3.2 x10(3)/[facility] LABORATORY Monocytes % 7.5 % [facility] Monocyte Abs 1.0(H) 0.3 - 0.9 x10(3)/[facility] LABORATORY Eosinophils % 1.5 % [facility] Eosinophils Abs 0.2 0.0 - 0.4 x10(3)/[facility]OR[facility] Basophils % 0.3 % [facility] Basophils Abs 0.0 0.0 - 0.1 x10(3)/[facility] LABOR[facility]ORY Immature Gran % 0.30 % [facility] Comment: Immature granulocytes(IG's)percentage and absolute count will include metamyelocytes, myelocytes, and promyelocytes. Blood smears from CBCs yielding IG's will be scanned manually for concordance. If this scan disagrees with the automated IG or if promyelocytes are noted, a manual differential will be performed. Lesia Gran Abs 0.04 0.00 - 0.04 x10(3)/[facility] LABORATORY Blood 03/20/2024 10:3 8 AM EDT 03/20/2024 10:47 AM EDT Narrative Resulting Agency Comment Spec In Lab Horace Hancock MD HEMATOLOGY ORDERABLE S [facility] [place] [address] * (ABNORMAL) Hemogram (03/20/2024 10:38 AM EDT) WBC 13.2(H) 4.0 - 9.5 x10(3)/[facility] LABORATORY RBC 4.66 4.00 - 5.21 x10(6)/[facility] LABORATORY Hemoglobin 13.0 11.7 - 15.5 g/dL [facility] Hematocrit 38.7 35.7 - 45.8 % [facility] MCV 83.0 82.6 - 94.4 [facility]ATORY MCH 27.9 27.1 - 32.0 pg [facility] MCHC 33.6 31.7 - 35.0 g/dL [facility] Platelets 238 145 - 357 x10(3)/[facility] LABORATORY RDWSD 41.7 37.0 - 46.0 [facility] LABORATORY RDWCV 13.8 11.5 - 14.1 % [facility] MPV 9.8 7.6 - 12.9 [facility] LABORATORY nRBC % Auto 0.0 % [facility] nRBC Abs Auto 0.000 0.000 - 0.000 x10(3)/[facility] LABORATORY Blood 03/20/2024 10:3 8 AM EDT 03/20/2024 10:47 AM EDT Narrative Resulting Agency Comment Spec In Lab Horace Hancock MD HEMATOLOGY ORDERABLE S [facility] [place] [address] * Magnesium (03/20/2024 10:38 AM EDT) Magnesium 0.88 0.69 - 1.07 mmol/L [facility] Blood 03/20/2024 10:3 8 AM EDT 03/20/2024 10:47 AM EDT Narrative Resulting Agency Comment Spec In Lab Horace Hancock MD CHEMISTRY ORDERABLES [facility] [place] [address] * Basic Metabolic Panel (non-fasting) (03/20/2024 10:38 AM EDT) Glucose Lvl 108 65 - 199 mg/dL [facility] Comment:Diabetes: >=200 mg/d L plus symptoms BUN 11 8 - 18 mg/dL [facility] Creatinine 0.82 0.70 - 1.20 mg/dL [facility] Sodium 137 135 - 145 mmol/L [facility] Potassium 4.3 3.5 - 5.0 mmol/L [facility] Comment: Please note: ??Patients with WBC >100,000 may have falsely elevated Potassium levels. ??For accurate Potassium quantification in these patients send serum separator tube (gold top) for subsequent determinations. ??Contact the Clinical Chemistry Laboratory if there are any questions. Chloride 101 98 - 107 mmol/L [facility] CO2 22 22 - 31 mmol/L [facility] Anion Gap 14 5 - 15 mmol/L [facility] Calcium 9.0 8.5 - 10.5 mg/dL [facility] Estimated GFR 82 >=60 mL/min/1. 73 m?? [facility] Comment: This patient's estimated GFR was [...] CHEMISTRY ORDERABLES Performing Organization Address City/[facility]/ZIP Co de Phone Number [facility] [place] [address] * Magnesium (03/19/2024 11:01 PM EDT) Magnesium 0.96 0.69 - 1.07 mmol/L [facility] Blood Venous Draw / Unknown 03/19/2024 11:01 PM EDT 03/19/2024 11:06 PM EDT Narrative Resulting Agency Comment Spec In Lab Horace Hancock MD CHEMISTRY ORDERABLES Performing Organization Address City/[facility] Co de Phone Number [facility] [place] [address] * (ABNORMAL) Troponin (03/19/2024 11:01 PM EDT) Troponin-T HS 2,406(H) <=14 ng/L [facility] [...] troponin value can be found in the [facility] Laboratory Test Catalog Troponin - [facility] Laboratory Test Catalog Reference: Fourth [place] Definition of Myocardial Infarction. Journal of the [place] [employer] 2018;72:9476-2388 Blood 03/19/2024 11:0 1 PM EDT 03/19/2024 11:05 PM EDT Narrative Resulting Agency Comment Spec In Lab Franky Mead MD CHEMISTRY ORDERABLE S [facility] [place] [place] [address] * (ABNORMAL) Troponin (03/19/2024 8:40 PM EDT) Troponin-T HS 2,586(H) <=14 ng/L [facility] [...] troponin value can be found in the [facility] Laboratory Test Catalog Troponin - [facility] Test Catalog Reference: Fourth [place] Definition of Myocardial Infarction. Journal of the [place] [employer] 2018;72:9688-5725 Blood 03/19/2024 8:40 PM EDT 03/19/2024 8:45 PM EDT Narrative Resulting Agency Comment Spec In Lab Ganesh Nguyen MD CHEMISTRY ORDERAB LES Performing Organization Address City/[facility]/ZIP Co de Phone Number [facility] [place] [address] * EKG 12 Lead (03/19/2024 8:32 PM EDT) Ventricular rate 70 BPM MUSE SYSTEM Atrial Rate 70 BPM MUSE SYSTEM P-R Interval 158 ms MUSE SYSTEM QRS Duration 78 ms MUSE SYSTEM Q-T Interval 470 ms MUSE SYSTEM QTC Calculated (Bezet) 507 ms MUSE SYSTEM Calculated P [place] 62 degrees MUSE SYSTEM Calculated R [place] 42 degrees MUSE SYSTEM Calculated T [place] -158 degrees MUSE SYSTEM INTERPRETATION Normal sinus rhythm Poor R wave progression T wave abnormality, consider lateral ischemia Prolonged QT Abnormal ECG When compared with ECG of 19-MAR-2024 17:27, No significant change was found Confirmed by MD Ambrosio David ([id number]) on 03/23/2024 8:10:58 AM MUSE SYSTEM 03/19/2024 8:32 PM EDT 03/23/2024 8:10 AM EDT Franky Mead MD ECG ORDERABLES Performing Organization Address City/[facility]/ZIP Co de Phone Number MUSE SYSTEM * EKG 12 Lead (03/19/2024 5:27 PM EDT) Ventricular rate 70 BPM MUSE SYSTEM Atrial Rate 70 BPM MUSE SYSTEM P-R Interval 154 ms MUSE SYSTEM QRS Duration 80 ms MUSE SYSTEM Q-T Interval 460 ms MUSE SYSTEM QTC Calculated (Bezet) 496 ms MUSE SYSTEM Calculated P [place] 80 degrees MUSE SYSTEM Calculated R [place] 87 degrees MUSE SYSTEM Calculated T [place] -96 degrees MUSE SYSTEM INTERPRETATION Normal sinus rhythm T wave abnormality, consider lateral ischemia Prolonged QT Abnormal ECG When compared with ECG of 19-MAR-2024 02:23, Non-specific change in ST segment in Anterior leads T wave inversion more evident in Inferior leads T wave inversion now evident in Anterolateral leads Confirmed by MD Ambrosio David ([id number]) on 03/23/2024 8:10:45 AM MUSE SYSTEM 03/19/2024 5:27 PM EDT 03/23/2024 8:10 AM EDT Unknown ECG ORDERABLES MUSE SYSTEM * (ABNORMAL) Troponin (03/19/2024 2:45 PM EDT) Troponin-T HS 3,792(H) <=14 ng/L [facility] [...] troponin value can be found in the [facility] Test Catalog Troponin - [facility] Test Catalog Reference: Fourth [place] Definition of Myocardial Infarction. Journal of the [place] [employer] 2018;72:3867-7831 Blood 03/19/2024 2:45 PM EDT 03/19/2024 2:54 PM EDT Narrative Resulting Agency Comment Spec In Lab Horace Hancock MD CHEMISTRY ORDERABLES [facility] [place] [address] * ECHO COMPLETE W CONTRAST (03/19/2024 10:53 AM EDT) Anatomical Region Laterality Modality Cardiac Other 03/19/2024 9:03 AM EDT Narrative 03/19/2024 12:12 PM EDT 1 [place] [address] ? Echocardiogram Report Name: ISA RO ?Study Date: 03/19/2024 09:03 AMBP: 129/68 mmHg ? Patient Location: 4A : 1965 ? Height: 158 cm ? Account: [id number] Age: 59 yrs ? Weight: 57 kg Gender: Female ?BSA: 1.6 m2 Ordering Physician: GANESH NGUYEN Referring Physician: GANESH NGUYEN Performed By: PEREZ Carlos Reason For Study: STEMI involving LAD Exam Location: [facility]. Interpretation Summary Normal left ventricle size with mildly reduced LV function. LV ejection fraction 49%. LAD territory wall motion abnormality, predominantly involving the LV apex. No LV thrombus visualized with echo contrast. Normal right ventricle. No significant valvular abnormalities. Compared with prior echo dated 08/28/23, LV function has now decreased and new wall motion abnormalities. Procedure Complete-[id number]. Image enhancement Definity was used for left [...] Note Destin Ambrosio MD - 03/19/2024 1 [place] [address] Echocardiogram Report Name: ISA RO Study Date: 409:03 AMBP: 129/68 mmHg Patient Location: : 1965 Height: 158 cm Account: [id number] Age: 59 yrs Weight: 57 kg Gender: Female BSA: 1.6 m2 Ordering Physician: GANESH NGUYEN Referring Physician: GANESH NGUYEN Performed By: PEREZ Carlos Reason For Study: STEMI involving LAD Exam Location: [facility]. Interpretation Summary Normal left ventricle size with mildly reduced LV function. LV ejectionfraction 49%. LAD territory wall motion abnormality, predominantly involving the LVapex. No LV thrombus visualized with echo contrast. Normal right ventricle. No significant valvular abnormalities. Compared with prior echo dated 08/28/23, LV function has now decreased andnew wall motion abnormalities. Procedure Complete-[id number]. Image enhancement Definity was used for left [...] View (03/19/2024 8:37 AM EDT) WORKSTATION ID [id number] RAD Anatomical Region Laterality Modality Chest N/A [...] who have questions please contact the health health care coach that requested your imaging first. ? Narrative [...] patients who have questions please contactthe health health care coach that requested your imaging first. Delores Jett MD IMG DX ORDERABLES * Hemoglobin A1c (03/19/2024 5:25 AM EDT) Pathologist [facility] Hemoglobin A1C 5.6 4.3 - 5.6 % [facility] Comment: Reference Range: 4.3 - 5.6% [...] Mellitus, Diabetes Care 2013; 36: Suppl. 1, B37-43 Est Avg Gluc 114 mg/dL [facility] Blood Venous Draw / Unknown 03/19/2024 5:25 AM EDT 03/19/2024 3:52 PM EDT Narrative Resulting Agency Comment Spec In Lab Horace Hancock MD CHEMISTRY ORDERABLES [facility] [place] [address] * (ABNORMAL) Differential, Automated (03/19/2024 5:25 AM EDT) Neutrophils % 90.0 % [facility] Neutr Abs (ANC) 16.73(H) 1.70 - 6.10 x10(3)/mc L [facility] Lymphocytes % 5.2 % [facility] Lymphocytes Abs 1.0 0.9 - 3.2 x10(3)/[facility] LABORATORY Monocytes % 4.2 % [facility] Monocyte Abs 0.8 0.3 - 0.9 x10(3)/[facility] LABOR[facility] Eosinophils % 0.0 % [facility] Eosinophils Abs 0.0 0.0 - 0.4 x10(3)/[facility] LAB[facility]AT[facility] Basophils % 0.2 % [facility] Basophils Abs 0.0 0.0 - 0.1 x10(3)/[facility] LABORAT[facility] Immature Gran % 0.40 % [facility] Comment: Immature granulocytes(IG's)percentage and absolute count will include metamyelocytes, myelocytes, and promyelocytes. Blood smears from CBCs yielding IG's will be scanned manually for concordance. If this scan disagrees with the automated IG or if promyelocytes are noted, a manual differential will be performed. Lesia Gran Abs 0.08(H) 0.00 - 0.04 x10(3)/[facility] LAB[facility] Blood 03/19/2024 5:25 AM EDT 03/19/2024 5:34 AM EDT Narrative Resulting Agency Comment Spec In Lab Ganesh Nguyen MD HEMATOLOGY ORDERA BLES [facility] [place] [address] * (ABNORMAL) Hemogram (03/19/2024 5:25 AM EDT) WBC 18.6(H) 4.0 - 9.5 x10(3)/[facility] LABORATORY RBC 4.92 4.00 - 5.21 x10(6)/[facility] LABORATORY Hemoglobin 13.7 11.7 - 15.5 g/dL [facility] Hematocrit 40.6 35.7 - 45.8 % [facility] MCV 82.5(L) 82.6 - 94.4 fL [facility] MCH 27.8 27.1 - 32.0 pg [facility] MCHC 33.7 31.7 - 35.0 g/dL [facility] Platelets 285 145 - 357 x10(3)/[facility] LABORATORY RDWSD 41.1 37.0 - 46.0 [facility] LABORATORY RDWCV 13.6 11.5 - 14.1 % [facility] MPV 9.5 7.6 - 12.9 [facility] LABORATORY nRBC % Auto 0.0 % [facility] nRBC Abs Auto 0.000 0.000 - 0.000 x10(3)/[facility] LABORATORY Blood 03/19/2024 5:25 AM EDT 03/19/2024 5:34 AM EDT Narrative Resulting Agency Comment Spec In Lab Ganesh Nguyen MD HEMATOLOGY ORDERA BLES [facility] [place] [address] * Lipid Panel (Reflex Direct LDL) (03/19/2024 5:25 AM EDT) Chol, Total 324 mg/dL [facility] Comment: Desirable: ? <200 mg/dL Borderline High: 200-239 mg/dL Higher: ?>ue=499 mg/dL Triglycerides 200 mg/dL [facility] Comment: Normal: ?<150 mg/dL Borderline High: 150-199 mg/dL High: ?200-499 mg/dL Very High: ? >ay=886 mg/dL HDL 68 mg/dL [facility] Comment: Females: High Risk: <50 mg/dL Males: High Risk: <40 mg/dL LDL Cholesterol 216 mg/dL [facility] Comment: Desirable: ? <100 mg/dL Above Desirable: 100-129 mg/dL Borderline High: 130-159 mg/dL High: ?160-189 mg/dL Very High: ? >er=466 mg/dL Lipid Interpretation See Note [facility] Comment: It is important to review [...] ACC/AHA Guidelines (most recently Jw et al. [facility] 06/17/22): For individuals with atherosclerotic cardiovascular disease (ASCVD)or LDL >rk=281 mg/dL, use a high-intensity statin (40-80 mg [...] Lab Ganesh Nguyen MD CHEMISTRY ORDERAB LES [facility] [place] [address] * (ABNORMAL) Troponin (03/19/2024 5:25 AM EDT) Troponin-T HS 1,276(H) <=14 ng/L [facility] [...] troponin value can be found in the [facility] Laboratory Test Catalog Troponin - [facility] Test Catalog Reference: Fourth [place] Definition of Myocardial Infarction. Journal of the [place] [employer] 2018;72:3343-5219 Blood 03/19/2024 5:25 AM EDT 03/19/2024 5:34 AM EDT Narrative Resulting Agency Comment Spec In Lab Ganesh Nguyen MD CHEMISTRY ORDERAB LES Performing Organization Address [facility] Co de Phone Number [facility] [place] [address] * APTT (03/19/2024 5:25 AM EDT) PTT 29 25 - 37 sec [facility] Comment: The PTT is NOT appropriate for heparin monitoring. Use the Anti-Xa level for heparin monitoring (HEP UFH) or LMWH monitoring (HEP LMW). A PTT less than 37 seconds generally indicates adequate hemostasis. Blood 03/19/2024 5:25 AM EDT 03/19/2024 5:34 AM EDT Narrative Resulting Agency Comment Spec In Lab Ganesh Nguyen MD HEMATOLOGY ORDERA BLES Performing Organization Address [facility] de Phone Number [facility] [place] [address] * Prothrombin Time (03/19/2024 5:25 AM EDT) PT 10.9 9.4 - 12.5 sec [facility] INR 1.0 [facility] Comment: An INR <2.0 indicates [...] MD HEMATOLOGY ORDERA BLES Performing Organization Address [facility] Co de Phone Number [facility] [place] [address] * (ABNORMAL) Comprehensive metabolic panel (non-fasting) (03/19/2024 5:25 AM EDT) Glucose Lvl 181 65 - 199 mg/dL [facility] Comment:Diabetes: >=200 mg/d L plus symptoms BUN 14 8 - 18 mg/dL [facility] Creatinine 0.91 0.70 - 1.20 mg/dL [facility] Sodium 137 135 - 145 mmol/L [facility] Potassium 4.2 3.5 - 5.0 mmol/L [facility] Comment: Please note: ??Patients with WBC >100,000 may have falsely elevated Potassium levels. ??For accurate Potassium quantification in these patients send serum separator tube (gold top) for subsequent determinations. ??Contact the Clinical Chemistry Laboratory if there are any questions. Chloride 100 98 - 107 mmol/L [facility] CO2 22 22 - 31 mmol/L [facility] Anion Gap 15 5 - 15 mmol/L [facility] Calcium 8.7 8.5 - 10.5 mg/dL [facility] Total Protein 7.2 6.1 - 8.0 g/dL [facility] Albumin 4.5 3.2 - 5.2 g/dL [facility] AST 95(H) 0 - 30 unit/L [facility] Comment:result rechecked-bz ALT 31(H) 0 - 30 unit/L [facility] Alk Phos 70 35 - 105 unit/L [facility] Total Bilirubin 0.5 0.2 - 1.3 mg/dL [facility] Estimated GFR 72 >=60 mL/min/1. 73 m?? [facility] Comment: This patient's estimated GFR was [...] ORDERAB LES Performing Organization Address City/[facility]/ZIP Co de Phone Number [facility] [place] [address] * EKG 12 Lead (03/19/2024 2:23 AM EDT) Ventricular rate 67 BPM MUSE SYSTEM Atrial Rate 67 BPM MUSE SYSTEM P-R Interval 152 ms MUSE SYSTEM QRS Duration 78 ms MUSE SYSTEM Q-T Interval 500 ms MUSE SYSTEM QTC Calculated (Bezet) 528 ms MUSE SYSTEM Calculated P Hennessey 54 degrees MUSE SYSTEM Calculated R [place] 56 degrees MUSE SYSTEM Calculated T [place] 31 degrees MUSE SYSTEM INTERPRETATION Normal sinus rhythm Prolonged QT Abnormal ECG No previous ECGs available Confirmed by MD Ambrosio David ([id number]) on 03/23/2024 8:10:32 AM MUSE SYSTEM 03/19/2024 2:23 AM EDT 03/23/2024 8:10 AM EDT Ganesh Nguyen MD ECG ORDERABLES Performing Organization Address [facility]/ZIP Co de Phone Number MUSE SYSTEM * (ABNORMAL) Differential, Automated (03/19/2024 2:20 AM EDT) Pathologist [facility] Neutrophils % 89.8 % [facility] Neutr Abs (ANC) 15.44(H) 1.70 - 6.10 x10(3)/mc L [facility] Lymphocytes % 6.4 % [facility] Lymphocytes Abs 1.1 0.9 - 3.2 x10(3)/mc L [facility] Monocytes % 2.9 % [facility] Monocyte Abs 0.5 0.3 - 0.9 x10(3)/mc L [facility] Eosinophils % 0.1 % [facility] Eosinophils Abs 0.0 0.0 - 0.4 x10(3)/mc L [facility] Basophils % 0.3 % [facility] Basophils Abs 0.0 0.0 - 0.1 x10(3)/mc L [facility] Immature Gran % 0.50 % [facility] Comment: Immature granulocytes(IG's)percentage and absolute count will include metamyelocytes, myelocytes, and promyelocytes. Blood smears from CBCs yielding IG's will be scanned manually for concordance. If this scan disagrees with the automated IG or if promyelocytes are noted, a manual differential will be performed. Lesia Gran Abs 0.08(H) 0.00 - 0.04 x10(3)/mc L [facility] Blood 03/19/2024 2:20 AM EDT 03/19/2024 2:59 AM EDT Narrative Resulting Agency Comment Spec In Lab Ganesh Nguyen MD HEMATOLOGY ORDERA BLES Performing Organization Address City/State/[facility] Co de Phone Number [facility] [place] [address] * (ABNORMAL) Hemogram (03/19/2024 2:20 AM EDT) WBC 17.2(H) 4.0 - 9.5 x10(3)/[facility] LABORATORY RBC 4.70 4.00 - 5.21 x10(6)/[facility] Hemoglobin 13.3 11.7 - 15.5 g/dL [facility] Hematocrit 38.7 35.7 - 45.8 % [facility] MCV 82.3(L) 82.6 - 94.4 fL [facility] MCH 28.3 27.1 - 32.0 pg [facility] MCHC 34.4 31.7 - 35.0 g/dL [facility] Platelets 281 145 - 357 x10(3)/[facility] LAB[facility]ORY RDWSD 41.0 37.0 - 46.0 fL [facility] RDWCV 13.7 11.5 - 14.1 % [facility] MPV 9.7 7.6 - 12.9 fL [facility] nRBC % Auto 0.0 % [facility] nRBC Abs Auto 0.000 0.000 - 0.000 x10(3)/mcL [facility] Blood 03/19/2024 2:20 AM EDT 03/19/2024 2:59 AM EDT Narrative Resulting Agency Comment Spec In Lab Ganesh Nguyen MD HEMATOLOGY ORDERA BLES [facility] [place] [address] * (ABNORMAL) Troponin (03/19/2024 2:20 AM EDT) Troponin-T HS 960(H) <=14 ng/L [facility] Comment: This patient's troponin T [...] troponin value can be found in the [facility] Test Catalog Troponin - [facility] Test Catalog Reference: Fourth [place] Definition of Myocardial Infarction. Journal of the [place] [employer] 2018;72:2377-3252 Blood 03/19/2024 2:20 AM EDT 03/19/2024 2:59 AM EDT Narrative Resulting Agency Comment Spec In Lab Ganesh Nguyen MD CHEMISTRY ORDERAB LES Performing Organization Address [facility] de Phone Number [facility] [place] [address] * (ABNORMAL) APTT (03/19/2024 2:20 AM EDT) PTT 123(Criti lewis) 25 - 37 sec [facility] Comment: Critical Result called by ?? [...] MD HEMATOLOGY ORDERA BLES Performing Organization Address [facility] de Phone Number [facility] [place] [place] [address] * Prothrombin Time (03/19/2024 2:20 AM EDT) PT 11.7 9.4 - 12.5 sec [facility] INR 1.0 [facility] Comment: An INR <2.0 indicates [...] MD HEMATOLOGY ORDERA BLES Performing Organization Address [facility]/ZIP Co de Phone Number [facility] [place] [address] * (ABNORMAL) Hepatic Function Panel (03/19/2024 2:20 AM EDT) Total Protein 6.7 6.1 - 8.0 g/dL [facility] Albumin 4.3 3.2 - 5.2 g/dL [facility] AST 49(H) 0 - 30 unit/L [facility] ALT 26 0 - 30 unit/L [facility] Alk Phos 67 35 - 105 unit/L [facility] Total Bilirubin 0.4 0.2 - 1.3 mg/dL [facility] Bili, Direct 0.1 0.0 - 0.3 mg/dL [facility] Blood 03/19/2024 2:20 AM EDT 03/19/2024 2:59 AM EDT Narrative Resulting Agency Comment Spec In Lab Ganesh Nguyen MD CHEMISTRY ORDERAB LES Performing Organization Address [facility] Co de Phone Number [facility] [place] [place] [address] * (ABNORMAL) pro-Brain Natriuretic Peptide (03/19/2024 2:20 AM EDT) ProBNP 529(H) <=124 pg/mL [facility] Blood 03/19/2024 2:20 AM EDT 03/19/2024 2:59 AM EDT Narrative Resulting Agency Comment Spec In Lab Ganesh Nguyen MD CHEMISTRY ORDERAB LES Performing Organization Address [facility] Co de Phone Number [facility] [place] [address] * Phosphorus (03/19/2024 2:20 AM EDT) Phosphorus 3.8 2.5 - 4.5 mg/dL [facility] Blood 03/19/2024 2:20 AM EDT 03/19/2024 2:59 AM EDT Narrative Resulting Agency Comment Spec In Lab Ganesh Nguyen MD CHEMISTRY ORDERAB LES Performing Organization Address City/[facility] Co de Phone Number [facility] [place] [address] * Magnesium (03/19/2024 2:20 AM EDT) Magnesium 0.71 0.69 - 1.07 mmol/L [facility] Blood 03/19/2024 2:20 AM EDT 03/19/2024 2:59 AM EDT Narrative Resulting Agency Comment Spec In Lab Ganesh Nguyen MD CHEMISTRY ORDERAB LES Performing Organization Address [facility] Co de Phone Number [facility] [place] [address] * (ABNORMAL) Basic Metabolic Panel (non-fasting) (03/19/2024 2:20 AM EDT) Glucose Lvl 160 65 - 199 mg/dL [facility] Comment:Diabetes: >=200 mg/d L plus symptoms BUN 14 8 - 18 mg/dL [facility] Creatinine 0.88 0.70 - 1.20 mg/dL [facility] Sodium 137 135 - 145 mmol/L [facility] Potassium 3.9 3.5 - 5.0 mmol/L [facility] Comment: Please note: ??Patients with WBC >100,000 may have falsely elevated Potassium levels. ??For accurate Potassium quantification in these patients send serum separator tube (gold top) for subsequent determinations. ??Contact the Clinical Chemistry Laboratory if there are any questions. Chloride 100 98 - 107 mmol/L [facility] CO2 20(L) 22 - 31 mmol/L [facility] Anion Gap 17(H) 5 - 15 mmol/L [facility] Calcium 8.2(L) 8.5 - 10.5 mg/dL [facility] Estimated GFR 75 >=60 mL/min/1. 73 m?? [facility] Comment: This patient's estimated GFR was [...] Narrative Resulting Agency Comment Spec In Lab aGnesh Nguyen MD CHEMISTRY ORDERAB LES Performing Organization Address City/State/[facility] Co de Phone Number [facility] [place] [address] * (ABNORMAL) Point of Care Blood Gas Historical (03/19/2024 1:41 AM EDT) POC pH 7.28(Criti lewis) 7.35 - 7.45 [facility] POC PCO2 40 35 - 45 mmHg [facility] POC PO2 84(L) 85 - 104 mmHg [facility] POC Base Excess -8.0(L) -3.0 - 3.0 mmol/L [facility] POC HCO3 18.6(L) 20.0 - 26.0 mmol/L [facility] POC TCO2 20(L) 22 - 31 mmol/L [facility] POC Sodium 134(L) 135 - 145 mmol/L [facility] POC Potassium 3.4(L) 3.5 - 5.0 mmol/L [facility] POC Ionized Ca 1.09(L) 1.15 - 1.33 mmol/L [facility] POC Hematocrit 38.0 34.0 - 45.0 % [facility] POC Calc Hgb 12.9 11.2 - 15.7 g/dL [facility] Blood 03/19/2024 1:41 AM EDT 03/19/2024 1:41 AM EDT Kathryn Walker MD CHEMISTRY ORDERABL ES [facility] [place] [address] * CARDIAC CATHETERIZATION (03/19/2024 1:36 AM EDT) Anatomical Region Laterality Modality Other Narrative 03/19/2024 7:19 AM EDT ?[facility] ? Cardiac Catheterization/Intervention Report ? Patient Name: Isa Ro. ? Procedure Date: 03/19/2024 ? A #: [id number] ? Primary Physician: Ramo Roy ? Case #: [id number] ? File Name: [id number] ? Catheterization Order Number: [id number] ? [facility] ? Final Report [place], [place] ? Patient Name: ? Isa A. Warnaar ? ID#: ?[id number] ? : ?1965 ? Procedure Date: ? March 19, 2024 ? Case #: ? [id number] ? Room: ? 6 ? Case Physician: [...] procedure was Emergent. The indication for ?the rd lab technician visit is ACS less than or [...] ?3.5 guiding catheter and a 3.5 Fr [place] 20 Mhz using auto 1 ?mm/sec pullback. [...] ? A premounted 3.00 x 08 mm [place] (JAHAIRA) was deployed ? with a maximum inflation pressure of 12 atmospheres. ? Another stent insertion was accomplished through a 6 Fr. EBU ? 3.5 guide. ??A premounted 2.00 x 08 mm [place] (JAHAIRA) was ? deployed. ? The final [...] dose administered prior to arrival in the rd lab technician. ?Recommended anti-platelet/anti-thrombotic regimen: ?Start aspirin 81 mg daily now and continue for indefinitely. ?Start clopidogrel 75 mg daily now and continue for 12 months then stop. ?These recommendations are made at the time of the intervention. Patient ?and provider preferences or a changing clinical situation may require ?modification of this regimen. Consult [facility] Interventional Cardiology for ?questions. ?The 1 year [...] against any medical treatment. Consult ?http://tools.acc.org/DAPTriskapp/#!/content/calculator/ or [facility] ?Interventional Cardiology for questions ? Conclusions: ?* [...] Procedure Note Ramo Roy MD - 03/21/2024 [facility] Cardiac Catheterization/Intervention Report Patient Name: Isa Ro Procedure Date: 03/19/2024 A #: [id number] Primary Physician: Ramo Roy Case #: [id number] File Name: [id number] Catheterization Order Number: [id number] [facility] FinalReport [place], [place] Patient Name: Isa Ro ID#:[id number] :1965 Procedure Date: March 19, 2024 Case [...] designated as ASA Class IV. The [facility] clinical frailty scale is 3: Managing Well. Diagnostic Tests: Prior Coronary Angiography: Prior coronary angiography was performed on 12/15/2014. Electrocardiography: EKG was assessed by ECG. EKG was Abnormal. EKG showed STDeviation >= 0.5 mm and other abnormality. Medications Prior to Procedure: Aspirin. Indications for Diagnostic Cath: The priority of the diagnostic procedure was Emergent. Theindication for the rd lab technician visit is ACS less than or [...] 3.5 guiding catheter and a 3.5 Fr [place] 20 Mhz usingauto 1 mm/sec pullback. Imaging [...] The priority for the procedure was Emergent.[facility] was [...] The lesion was predilated with a 2.50mm [id number] MM balloon with a maximum inflation pressure of 14atmospheres. A premounted 3.00 x 08 mm [place] (JAHAIRA) wasdeployed with a maximum inflation pressure of 12 atmospheres. Another stent insertion was accomplished through a 6 Fr.EBU 3.5 guide. A premounted 2.00 x 08 mm [place] (JAHAIRA)was deployed. The final outcome was defined [...] dose administered prior to arrival in the rd lab technician. Recommended anti-platelet/anti-thrombotic regimen: Start aspirin 81 mg daily now and continue for indefinitely. Start clopidogrel 75 mg daily now and continue for 12 months thenstop. These recommendations are made at the time of the intervention.Patient and provider preferences or a changing clinical situation mayrequire modification of this regimen. Consult [facility] Interventional Cardiologyfor questions. The 1 year bleeding [...] or against any medical treatment.Consult http://tools.acc.org/DAPTriskapp/#!/content/calculator/ or [facility] Interventional Cardiology for questions Conclusions: * One [...] POC pH 7.20(Criti lewis) 7.35 - 7.45 [facility] POC PCO2 38 35 - 45 mmHg [facility] POC PO2 74(L) 85 - 104 mmHg [facility] POC Base Excess -14.0(L) -3.0 - 3.0 mmol/L [facility] POC HCO3 14.5(L) 20.0 - 26.0 mmol/L [facility] POC TCO2 16(L) 22 - 31 mmol/L [facility] POC Sodium 116(Critic al) 135 - 145 mmol/L [facility] POC Potassium 3.1(L) 3.5 - 5.0 mmol/L [facility] POC Ionized Ca 1.04(L) 1.15 - 1.33 mmol/L [facility] POC Hematocrit 39.0 34.0 - 45.0 % [facility] POC Calc Hgb 13.3 11.2 - 15.7 g/dL [facility] Blood 03/19/2024 1:26 AM EDT 03/19/2024 1:26 AM EDT Kathryn Walker MD CHEMISTRY ORDERABL ES [facility] [address] [place] [address] documented in this encounter Visit Diagnoses Diagnosis [...] 03/19/24 at 0900, Until Discontinued, Routine Given 03/20/2024 [...] 0857 (Given - Provider: Lubna Cruz, TOSHA) clopidogreL (Plavix) tablet 75 mg [...] Routine 0833 (Given - Provider: Izaiah Jimenez, TOSHA)2053 (Given - Provider: Javon Sykes RN) 0857 [...] Routine documented in this encounter Care Teams Plow Holder Relationship Specialty Start Date End Date None None PCP - General 03/19/24 documented as of this encounter
--- OUTSIDE RECORDS SUMMARY | 2024-04-11 10:16 | XMS_ITS | Encounter Summary ---
Author Organization [facility] [place] [address] Care Team Providers Care Pearl Hand Name Role Phone None Primary Care Provider Unavailabl e Encounter Details Date Type Department Care Team (Late st Contact Info) Description 03/18/2024 Telephone Cardiology at [address] [address] Yusuf Herrera MD [facility] [place] [address] Social History Tobacco Use Types Packs/Day Years Used Date Smoking Tobacco: Former Smokeless Tobacco: Never [facility] Inpatient Questions Answer Date Recorded Does [...] 03/19/24 Initial Contact Time: 2209 Patient Location: [facility] Presenting Symptoms per OSH: 59 year old female, history of CAD c/b NSTEMI (see below), hypertension, hyperlipidemia, who was resting at home at 20:30 when she developed substernal chest pressure radiating to right arm which wasvery severe and reminiscent of prior [place]. Associated with diaphoresis. No syncope, SOB, palpitations, [...] was still having CP. 03/30/14 [facility] Left main: Free of angiographically significant disease. 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 I have not personally interviewed or examined this patient. Yusuf Herrera MD Stitch Separator documented in this encounter Plan of Treatment Upcoming Encounters Date Type Department Care Team (Late st Contact Info) Description 05/09/2024 10:40 AM EDT Office Visit Cardiology at [address] [address] Herlinda Weaver PA [facility] [place] [address] documented as of this encounter Visit Diagnoses Not on filedocumented in this encounter Care Teams Pearl Hand Relationship Specialty Start Date End Date None None PCP - General 03/19/24 documented as of this encounter
--- OUTSIDE RECORDS SUMMARY | 2024-04-11 10:16 | XMS_ITS | Encounter Summary ---
[place] [address] Care Team Providers Care Material Handler 1St Shift Name Role Phone Pretty Avery MD Primary Care Provider [phone] Reason for Referral * Diagnostic Test (Routine) - Closed Specialty Diagnoses / Procedures Referred By Contac t Referred To Contact Cardiology Diagnoses Hyperlipidemia, unspecified hyperlipidemia type Procedures Mobile Demi Gross APRN [address] [place] [address] [facility] [place] [address] Referral ID Status Reason Start Date Expiration Date V isits Requested Visits Authorized [id number] Closed Specialty Service Requested 08/28/2023 08/27/2024 1 1 Reason for Visit * Diagnostic Test (Routine) - Closed Specialty Diagnoses / Procedures Referred By Contac t Referred To Contact Cardiology Diagnoses Hyperlipidemia, unspecified hyperlipidemia type Procedures Mobile Echo Demi Archibald APRN [address] [place] [address] [facility] [place] [address] Referral ID Status Reason Start Date Expiration Date V isits Requested Visits Authorized [id number] Closed Specialty Service Requested 08/28/2023 08/27/2024 1 1 Encounter Details Date Type Department Care Team (Latest Contact Info) Description 08/28/2023 3:53 PM EST - 08/28/2023 11:59 PM EST Hospital Encounter [place] [address] Demi Archibald APRN [address] [place] [address] Hyperlipidemia, unspecified hyperlipidemia type Discharge Disposition: Home [...] 10:40 AM EDT Office Visit Cardiology at [address] [address] [facility] [place] [address] documented as of this encounter Procedures Procedure Name Priority Date/Time Associated Diagnosis Comments ECHO COMPLETE Routine 08/28/2023 4:04 PM EST Hyperlipidemia, unspecified hyperlipidemia type documented in this encounter Results * ECHO COMPLETE (08/28/2023 4:04 PM EST) Anatomical Region Laterality Modality Other 08/28/2023 2:15 PM EST Narrative 08/28/2023 4:14 PM EST [address] [place] [address] ? Echocardiogram Report Name: EZEQUIEL THOMAS ?Study Date: 08/28/2023 02:15 PM ? [facility] 1965 ? Height: 157 cm ? Account: [id number] Age: 58 yrs ? Weight: 57 kg Gender: Female ?BSA: 1.6 m2 Ordering Physician: DEMI ARCHIBALD Referring Physician: DEMI ARCHIBALD Reason For Study: CAD, HLD, HTN Exam Location: [facility]. Interpretation Summary Normal biventricular size and function. LVEF 60-65% by visual assessment. Normal diastolic function. Normal pulmonary pressures. Normal atrial sizes. Mild mitral regurgitation. No prior for comparison. Procedure Complete-[id number]. Satisfactory quality. Left Ventricle Wall thickness is [...] Note Kaylee Sutherland MD - 08/28/2023 [address] [place] [address] Echocardiogram Report Name: EZEQUIEL THOMAS Study Date:08/28/2023 02:15 PM Patient Location: : 1965 Height: 157 cm Account: [id number] Age: 58 yrs Weight: 57 kg Gender: Female BSA: 1.6 m2 Ordering Physician: DEMI ARCHIBALD Referring Physician: DEMI ARCHIBALD Reason For Study: CAD, HLD, HTN Exam Location: [facility]. Interpretation Summary Normal biventricular size and function. LVEF 60-65% by visual assessment.Normal diastolic function. Normal pulmonary pressures. Normal atrial sizes. Mild mitral regurgitation. No prior for comparison. Procedure Complete-[id number]. Satisfactory quality. Left Ventricle Wall thickness is [...] type documented in this encounter Care Teams Material Handler 1St Shift Relationship Specialty Start Date End Date Pretty Avery MD [address] [place] [address] PCP - General 08/06/10 03/18/24 documented as of this encounter
--- OUTSIDE RECORDS SUMMARY | 2024-04-13 10:34 | XMS_ITS | Referral Summary ---
Author Organization [facility] Address [address] [place] [address] Care Team Providers Care Gift Consultant Name Role Phone Pretty Avery MD Primary Care Provider [phone] Allergies No known active allergies Medications Medication [...] Date NSTEMI (non-ST elevated myocardial infarction) ( [facility]) 03/30/2014 Social History Tobacco Use Types [...] Advance Directives For more information, please contact: [phone] * Full Code (Latest Code Status on File) Date Activated Date Inactivated Comments 12/15/2014 9:53 12/15/2014 18:00 Question Answer Comments Reason for decision includes: Full code consistent with overall plan of care Who participated in the discussion? Patient * Full Code Date Activated Date Inactivated Comments 03/30/2014 20:42 04/01/2014 17:36 Care Teams Gift Consultant Relationship Specialty Start Date End Date Pretty Avery MD [address] [place] [address] PCP - General 06/05/10
--- OUTSIDE RECORDS SUMMARY | 2024-04-13 10:34 | XMS_ITS | Encounter Summary ---
Author Organization [facility] Address [address] [place] [address] Care Team Providers Care Senior Back End Java Developer Name Role Phone Pretty Avery MD Primary Care Provider [phone] Encounter Details Date Type Department Care Team (Latest Contact Info) Description 04/08/2018 9:44 EDT - 04/08/2018 23:59 EDT Hospital Encounter [facility] [address] [place] [address] Unknown, Provider, Discharge Disposition: Home or Self [...] filedocumented in this encounter Care Teams Senior Back End Java Developer Relationship Specialty Start Date End Date Pretty Avery MD [address] [place] [address] PCP - General 06/05/10 documented as of this encounter
--- OUTSIDE RECORDS SUMMARY | 2024-04-13 10:34 | XMS_ITS | Encounter Summary ---
Author Organization [facility] Address [address] [place] [address] Care Team Providers Care Identity Management Developer Name Role Phone Pretty Avery MD Primary Care Provider [phone] Encounter Details Date Type Department Care Team (Late st Contact Info) Description 07/26/2021 Lab Requisition [facility] Pathology & [place] [address] Outr Resulting Lab, Provider Social History Tobacco [...] Lyme Ab Negative Negative 07/29/2021 9:57 EST [facility] Blood VENOUS BLOOD / Unknown 07/26/2021 10:55 EST 07/26/2021 21:29 EST Provider Outr Resulting Lab IMMUNOLOGY A ND SEROLOGY ORDERABLES Performing Organization Address City/State/[facility] Co de Phone Number [facility] [address] [place] [address] documented in this encounter Visit Diagnoses Not on filedocumented in this encounter Care Teams Identity Management Developer Relationship Specialty Start Date End Date Pretty Avery MD [address] [place] [address] PCP - General 06/05/10 documented as of this encounter
--- OUTSIDE RECORDS SUMMARY | 2024-04-13 10:34 | XMS_ITS | Encounter Summary ---
Author Organization [facility] Address [address] [place] [address] Care Team Providers Care Freight Engineer Name Role Phone Pretty Avery MD Primary Care Provider [phone] Encounter Details Date Type Department Care Team (Latest Contact Info) Description 06/18/2018 9:36 EDT - 06/18/2018 23:59 EDT Hospital Encounter [facility] - [address] [address] Unknown, Provider, Discharge Disposition: Home or Self [...] Code Departure Means Destination Home or Self Mcfp documented in this encounter Plan of Treatment Not on file documented as of this encounter Visit Diagnoses Not on filedocumented in this encounter Care Teams Freight Engineer Relationship Specialty Start Date End Date Pretty Avery MD [address] [place] [address] PCP - General 06/05/10 documented as of this encounter
--- OUTSIDE RECORDS SUMMARY | 2024-04-13 10:34 | XMS_ITS | Clinical Summary ---
Author Organization [facility] Address [address] [place] [address] Care Team Providers Care Pump Room Operator Name Role Phone Pretty Avery MD Primary Care Provider [phone] Allergies No known active allergies Medications Medication [...] Date NSTEMI (non-ST elevated myocardial infarction) ( [facility]) 03/30/2014 Surgical History Surgery [...] Advance Directives For more information, please contact: [phone] * Full Code (Latest Code Status on File) Date Activated Date Inactivated Comments 12/15/2014 9:53 12/15/2014 18:00 Question Answer Comments Reason for decision includes: Full code consistent with overall plan of care Who participated in the discussion? Patient * Full Code Date Activated Date Inactivated Comments 03/30/2014 20:42 04/01/2014 17:36 Care Teams Pump Room Operator Relationship Specialty Start Date End Date Pretty Avery MD [address] [place] [address] [facility] - General 06/05/10
--- OUTSIDE RECORDS SUMMARY | 2024-04-13 10:34 | XMS_ITS | Encounter Summary ---
Author Organization [facility] Address [address] [place] [address] Care Team Providers Care Reimbursement Spec Name Role Phone Pretty Avery MD Primary Care Provider [phone] Encounter Details Date Type Department Care Team (Late st Contact Info) Description 06/18/2018 Results Only [facility] [phone] Marietta Mauricio, DO [address] [place] [address] Social History Tobacco Use Types [...] ? EZEQUIEL THOMAS ? Accession #: ? [id number] ? : ? 1965 (Age: 53) ??F [...] Meyers 06/19/2018 9:42 AM End of Report [facility] 06/18/2018 16:1 9 EDT 06/18/2018 16:19 EDT Marietta Mauricio DO PATHOLOGY ORDERABLES [facility] [address] [place] [address] documented in this encounter Visit Diagnoses Not on filedocumented in this encounter Care Teams Reimbursement Spec Relationship Specialty Start Date End Date Pretty Avery MD [address] [place] [address] PCP - General 06/05/10 documented as of this encounter
--- OUTSIDE RECORDS SUMMARY | 2024-04-13 10:34 | XMS_ITS | Encounter Summary ---
Author Organization [facility] Address [address] [place] [address] Care Team Providers Care Energy Project Engineer Name Role Phone Pretty Avery MD Primary Care Provider [phone] Encounter Details Date Type Department Care Team (Late st Contact Info) Description 06/24/2023 Lab Requisition [facility] [place] [address] Outr Resulting Lab, Provider Social History Tobacco [...] Lyme Ab Negative Negative 06/25/2023 11:00 EDT [facility] Blood VENOUS BLOOD / Unknown 06/24/2023 9:02 EDT 06/24/2023 17:06 EDT Provider Outr Resulting Lab IMMUNOLOGY A ND SEROLOGY ORDERABLES [facility] [address] [place] [address] documented in this encounter Visit Diagnoses Not on filedocumented in this encounter Care Teams Energy Project Engineer Relationship Specialty Start Date End Date Pretty Avery MD [address] [place] [address] PCP - General 06/05/10 documented as of this encounter
--- OUTSIDE RECORDS SUMMARY | 2024-04-13 10:34 | XMS_ITS | Encounter Summary ---
Author Organization [facility] Address [address] [place] [address] Care Team Providers Care Wedger Machine Name Role Phone Pretty Avery MD Primary Care Provider [phone] Reason for Visit * Reason Onset Date Comments Post-op Problem 12/17/2014 Encounter Details Date Type Department Care Team (Late st Contact Info) Description 12/17/2014 Telephone [facility] Cardiology - [address] [place], [place] [phone] Alex Freed, [address] [address] Post-op Problem Social History Tobacco [...] Encounter - Alex Freed DO - 12/17/2014 3963 EDT Isa called on 12/16/14 with complaints [...] at 18:00. Alex Freed DO 12/17/2014 11:53 Yarn Wrapper documented in this encounter Plan of Treatment Not on file documented as of this encounter Visit Diagnoses Not on filedocumented in this encounter Care Teams Wedger Machine Relationship Specialty Start Date End Date Pretty Avery MD [address] [place] [phone] PCP - General 06/05/10 documented as of this encounter
--- OUTSIDE RECORDS SUMMARY | 2024-04-13 10:34 | XMS_ITS | Encounter Summary ---
Author Organization [facility] Address [address] [place] [address] Care Team Providers Care Radio Division Officer Name Role Phone Pretty Avery MD Primary Care Provider [phone] Encounter Details Date Type Department Care Team (Latest Contact Info) Description 09/11/2021 Lab Requisition [facility] Laboratory Medicine - [address] [address] Rosalba Archibald, FAN MAIL CLERK [address] [address] Encounter for general adult medical examination without [...] types, PCR Negative Negative 09/20/2021 15:45 EST [facility] Comment:No E6 or E7 mRNA is detected from HPV types 16,18,31,33,35,39,45,51,52,56,58,59,66, and 68 by display decorator mediated amplification. Papanicolaou smear specimen (specimen) CERVIX UTERI STRUCTURE / Unknown 09/10/2021 9:15 EST 09/19/2021 14:21 EST Rosalba Archibald APRN MICROBIOLOGY - GE NERAL ORDERABLES [facility] [address] [place] [address] * PAP TEST (09/10/2021 9:15 EST) Specimens A. Cervix and/or Endocervix , ThinPrep Imaging System with Manual Evaluation 09/20/2021 15:45 EST [facility] Specimen Adequacy Satisfactory for Evaluation - transformation zone component present 09/20/2021 15:45 EST [facility] General Categorization Epithelial Cell Abnormality 09/20/2021 15:45 EST [facility] Descriptive Diagnosis Squamous Cell Abnormality - Atypical squamous cells, undetermined significance (ASC-US). 09/20/2021 15:45 EST [facility] Educational Comments [facility] recommends following ASCCP's 2012 Updated Consensus Guidelines for the Management of Abnormal Cervical Cancer Screening Tests and Cancer Precursors (JLGTD, 2013; 17(5):S1-S27). Consensus guidelines are available online at www.asccp.org. 09/20/2021 15:45 [facility] Attestation By the signature below, the attending physician certifies that they have personally conducted a gross and/or microscopic examination of the described specimens and rendered or confirmed the above diagnosis. 09/20/2021 15:45 [facility] at 1545 Clinical History See below 09/20/19 15:45 [facility] HPV The result for the Human Papillomavirus (HPV) Detection-High Risk Types is Negative. No E6 or E7 mRNA is detected from HPV types 16,18,31,33,35,3 9,45,51,52,56,58 ,59,66, and 68 by display decorator mediated amplification.Te sting was performed on specimen [id number] and was resulted on 09/20/2021 1543 EST by CARMEN, LAB INSTRUMENT RESULTS IN 09/20/2021 15:45 [facility] Performing Lab [facility] 09/20/2021 15:45 [facility] Scanned Images 09/20/2021 15:45 [facility] Papanicolaou smear specimen (specimen) CERVIX UTERI STRUCTURE / Unknown 09/10/2021 9:15 EST 09/11/2021 9:41 EST Rosalba Archibald APRN PATHOLOGY ORDERAB LES [facility] [address] [place] [address] documented in this encounter Visit Diagnoses Diagnosis Encounter for general adult medical examination without abnormal findings Unspecified general medical examination Encounter for screening for malignant neoplasm of cervix Screening for malignant neoplasm of the cervix Encounter for gynecological examination (general) (routine) without abnormal findings documented in this encounter Care Teams Radio Division Officer Relationship Specialty Start Date End Date Pretty Avery MD [address] [place] [address] PCP - General 06/05/10 documented as of this encounter
--- OUTSIDE RECORDS SUMMARY | 2024-04-13 10:34 | XMS_ITS | Encounter Summary ---
Author Organization [facility] Address [address] [place] [address] Care Team Providers Care Dough Brake Machine Operator Name Role Phone Pretty Avery MD Primary Care Provider Encounter Details Date Type Department Care Team (Late st Contact Info) Description 04/09/2018 Historical Results Only [facility] [place] [facility] [place] [address] [address] Ganesh Philip MD [address] [place] [phone] Social History Tobacco Use Types Packs/Day [...] 0.000 - 0.034 ng/mL 04/09/2018 7:39 EDT [facility] Comment: Interpretation comments: ??Cutoff for [...] & BLOOD GAS ORDERABLES Performing Organization Address City/[facility]/ZIP Co de Phone Number [facility] * LIPASE (04/09/2018 6:35 EDT) Lipase 84 <251 U/L 04/09/2018 9:4 8 EDT [facility] 04/09/2018 6:35 EDT 04/09/2018 9:38 EDT Narrative [facility] - 04/09/2018 9:48 EDT AOT: 04/09/18 0938: LIP Ganesh Philip MD CHEMISTRY & BLOOD GAS ORDERABLES [facility] documented in this encounter Visit Diagnoses Not on filedocumented in this encounter Care Teams Dough Brake Machine Operator Relationship Specialty Start Date End Date Pretty Avery MD [address] [place] [address] PCP - General 06/05/10 documented as of this encounter
--- OUTSIDE RECORDS SUMMARY | 2024-04-13 10:34 | XMS_ITS | Encounter Summary ---
Author Organization [facility] Address [address] [place] [address] Care Team Providers Care Supervisor Cemetery Workers Name Role Phone Pretty Avery MD Primary Care Provider [phone] Encounter Details Date Type Department Care Team (Late st Contact Info) Description 04/08/2018 Historical Results Only [facility] Radiology Results [address] [place] [address] Wesley Trinh MD [address] [place] [address] Social History Tobacco Use Types [...] 0.000 - 0.034 ng/mL 04/08/2018 20:47 EDT [facility] Comment: [...] GAS ORDERABLES [facility] * XR CHEST 2 VIEWS (04/08/2018 [...] MD ? Transcribed Date/Time: 04/08/2018 (1402) ? Quarter Inspector: ? Printed Date/Time: 03/04/2019 (8626) ? PAGE 1 ? Signed Report ? [...] Wesley Trinh MD Transcribed Date/Time: 04/08/2018 (1402) Quarter Inspector: Printed Date/Time: 03/04/2019 (3082) PAGE 1 Signed Report Wesley Trinh MD IMG DIAGNOSTIC I MAGING ORDERABLES * MAGNESIUM (04/08/2018 12:24 EDT) Magnesium 1.70 1.7 - 2.8 mg/dL 04/08/2018 12:48 EDT [facility] 04/08/2018 12:2 4 EDT 04/08/2018 12:30 EDT Wesley Trinh MD CHEMISTRY & BLOO D GAS ORDERABLES [facility] * (ABNORMAL) COMPREHENSIVE METABOLIC PANEL (CMP) (04/08/2018 12:24 EDT) Pathologist [facility] Albumin % 4.4 3.4 - 4.9 g/dL 04/08/2018 12:48 [facility] ALKALINE PHOSPHATASE - [facility] 75 38 - 126 U/L 04/08/2018 12:48 [facility] BILIRUBIN TOTAL 0.4 0.2 - 1.3 mg/dL 04/08/2018 12:48 [facility] BUN - [facility] 21 10 - 26 mg/dL 04/08/2018 12:48 [facility] CALCIUM - [facility] 9.3 8.5 - 10.5 mg/dL 04/08/2018 12:48 [...] 11 0 - 18 04/08/2018 12:48 EDT [facility] GLUCOSE - [facility] 103(H) 70 - 100 mg/dL 04/08/2018 12:48 EDT [facility] Potassium 3.8 3.5 - 5.0 mEq/L 04/08/2018 12:48 EDT [facility] Sodium 138 136 - 145 mEq/L 04/08/2018 12:48 EDT [facility] TOTAL PROTEIN - [facility] 7.1 6.2 - 8.2 gm/dL 04/08/2018 12:48 EDT [facility] SGOT/AST - [facility] 20 14 - 36 U/L 04/08/2018 12:48 T [facility] SGPT/ALT - [facility] 36 9 - 52 U/L 8 12:48 EDT [facility] 04/08/2018 12:2 4 EDT 04/08/2018 12:30 EDT Wesley Trinh MD CHEMISTRY & BLOO D GAS ORDERABLES Performing Organization Address [facility]/ZIP Co de Phone Number [facility] * TROPONIN I (04/08/2018 12:24 EDT) Troponin I (ng/mL) <0.012 0.000 - 0.034 ng/mL 04/08/2018 13:00 EDT [facility] Comment: [...] MD CHEMISTRY & BLOO D GAS ORDERABLES [facility] * COMPLETE BLOOD COUNT WITH DIFFERENTIAL [...] 0.3 - 0.9 10e3/uL 04/08/2018 12:36 EDT [facility] MONO% - [facility] 7 0 - 12 % 04/08/2018 12:36 EDT [facility] PLATELET COUNT 252 150 - 400 10e3/ul 04/08/2018 12:36 EDT [facility] RED BLOOD COUNT - [facility] 4.79 3.8 - 5.2 10e6/ul 04/08/2018 12:36 EDT [facility] RED CELL DISTRI WIDTH - [facility] 14.1 11.8 - 15.6 % 04/08/2018 12:36 EDT [facility] WHITE BLOOD COUNT - [facility] 8.6 3.5 - 10.5 10e3/ul 04/08/2018 12:36 EDT [facility] 04/08/2018 12:2 4 EDT 04/08/2018 12:30 EDT Wesley Trinh MD HEMATOLOGY & PF4 ORDERABLES [facility] documented in this encounter Visit Diagnoses Not on filedocumented in this encounter Care Teams Supervisor Cemetery Workers Relationship Specialty Start Date End Date Pretty Avery MD [address] [place] [address] PCP - General 06/05/10 documented as of this encounter
--- OUTSIDE RECORDS SUMMARY | 2024-04-13 10:34 | XMS_ITS | Encounter Summary ---
Author Organization [facility] Address [address] [place] [address] Care Team Providers Care Burr Sander Name Role Phone Pretty Avery MD Primary Care Provider [phone] Encounter Details Date Type Department Care Team (Late st Contact Info) Description 03/07/2022 Lab Requisition [facility]ology & Laboratory Medicine - [address] [address] Outr Resulting Lab, Provider Social History Tobacco [...] Priority Date/Time Associated Diagnosis Comments ZZCOVID-19 TEST [facility] PCR Today 03/06/2022 16:00 EDT COVID-19 TESTING Routine 03/06/2022 16:0 0 EDT documented in this encounter Results * COVID-19 TEST [facility] PCR (03/06/2022 16:00 EDT) Swab 03/06/2022 16:0 0 EDT 03/07/2022 22:03 EDT Provider Outr Resulting Lab MICROBIOLOGY - GENERAL ORDERABLES Performing Organization Address City/[facility]/ZIP Co de Phone Number [facility] [address] [place] [address] * COVID-19 TESTING (03/06/2022 16:00 EDT) COVID-19 rt-PCR Result Negative Negative 03/08/2022 12:05 EDT [facility] Comment: This test [...] performed using the camille SARS-CoV-2 assay ([employer] on the Camille 6800 System Performing Lab [place] [address] [facility] 03/08/2022 12:05 EDT [facility] Swab 03/06/2022 16:0 0 EDT 03/07/2022 22:03 EDT Provider Outr Resulting Lab MICROBIOLOGY - GENERAL ORDERABLES Performing Organization Address City/[facility]/ZIP Co de Phone Number [facility] [address] [place] [address] documented in this encounter Visit Diagnoses Not on filedocumented in this encounter Care Teams Burr Sander Relationship Specialty Start Date End Date Pretty Avery MD [address] [place] [phone] PCP - General 06/05/10 documented as of this encounter
--- OUTSIDE RECORDS SUMMARY | 2024-04-13 10:34 | XMS_ITS | Encounter Summary ---
Author Organization [facility] Address [address] [place] [address] Care Team Providers Care Product Development Coordinator Name Role Phone Pretty Avery MD Primary Care Provider [phone] Encounter Details Date Type Department Care Team (Late st Contact Info) Description 12/15/2014 9:30 EDT - 12/15/2014 15:15 EDT Hospital Encounter [facility] [address] [place] [address] Manpreet Naqvi MD [address] [place] [phone] Dilip Mahajan MD [address] [facility] [address] [place] [phone] Discharge Disposition: Home or Self Care Social [...] was performed by Dr. Mahajan. Phone # [phone] You have had a Cardiovascular Catheterization performed [...] 12/13/14. Will contact pt today to reschedule. clinical laboratory service teacher notified. 12/13/14 10:00, pt rescheduled to Thursday12/15/14. [...] JAHAIRA. * Michaelle Ellsworth, RN - 12/12/2014 0800 EDT Precardiac Cath Nursing Checklist Recent Labs: Lab Results Component Value Date BUN 10 04/01/2014 CREATININE 0.69 04/01/2014 HGB 12.6 04/01/2014 CALCGFR >60 04/01/2014 Hgt: Height: 157.5 cm (62) Wgt: Weight : 54.205 kg (119 lb 8 oz) Allergies: No Known Allergies Local Pharmacy [phone] [phone] Cardiac History: Stress Test? No Reason for Cath: chest pain, hx of cad Anginal equivalent:: Cardiac Procedures: Previous PCI done at: [facility] Stent Type/Size: 03/31/14 2.5 x 12 resolute stent prox lad Cardiac surgery: no Medical/Surgical History : Patient has a past medical history of HTN (hypertension); HLD (hyperlipidemia); Chest pain; CAD (coronary artery disease); Family history of heart disease; and Hx of non-ST elevation myocardial infarction (NSTEMI). Patient has past surgical history that includes section. Chronic Risk Factors: HTN, HLD, Previous IN and Previous PCI Smoking and Alcohol intake: [...] instructed to register on the 3rd floor [facility]. Transportation Issues: Patient/family instructed that they will need a designated assembly line driver if they are discharged on the dayof the procedure. Medications: Medication list: Patient/family instructed to bring medication list with them on the day of the procedure. Anticoagulants/Antiplatelets: Takes brilinta bid, instructed to take aspirin 81 mg on 12/14/14-12/15/14. Anti-Anginal meds: none Michaelle Ellsworth RN documented in this encounter H&P Notes * Chun Nielsen MD - 12/15/2014 1044 EDT Oil Truck Driver H&P PCP: Pretty Avery MD Clinical Assessment Manager: Date of Service: 12/15/2014 Chief Complaint: angina [...] The angina has been stable. Referred for [facility] to further evaluate. 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 Smoking status: [...] consent has been obtained. Chun Nielsen MD Oil Truck Driver Pager [phone] documented in this encounter Procedure Notes * [...] artery Procedure: She was brought to [facility] Cardiac Catheterization Laboratory for the [...] 4 weeks Dilip Mahajan Jr., MD PagerNumber: [phone] 12/15/2014 11:43 documented in this encounter Plan [...] EST) 09/26/2015 11:4 2 EST Scan 2 Motor Inspection Mechanic PROCEDURE/MINOR SHAYY GICAL ORDERABLES * INVASIVE CARDIOLOGY REPORT-SCANNED (12/19/2014 8:53 EDT) 12/19/2014 8:53 EDT Scan 2 Motor Inspection Mechanic PROCEDURE/MINOR SHAYY GICAL ORDERABLES * ECG REPORT - SCANNED (12/19/2014 8:17 EDT) 12/19/2014 8:17 EDT Scan 2 Motor Inspection Mechanic PROCEDURE/MINOR SHAYY GICAL ORDERABLES * LEFT HEART CATH (12/15/2014 11:26 EDT) Anatomical Region Laterality Modality Other 12/15/2014 11:2 6 EDT Narrative 12/18/2014 8:37 EDT [address]iology [address] [place] [address] Catheterization Laboratory Study Patient: Isa Ro ? Study Date: ?12/15/2014 ? Accession #: ? [id number] : ? 1965 Referring Physician: Pretty Avery Diagnostic Attending: ??Diilp Mahajan Diagnostic Fellow: Chun Nielsen ?? ATTESTATION: [...] Right radial artery access. A 6 FR/10 Dish.fmumLiveRSVP Sheath [place] SS .021 sheath was ?? advanced into [...] Dilip Mahajan Jr., MD - 12/18/[address] [place] [address] Catheterization Laboratory Study Patient: Isa Ro Study [...] artery access. A 6 FR/10 Terumo Sheath [place] SS .021sheath was advanced into the vessel. [...] 10:12 EDT) 12/15/2014 10:1 2 EDT Narrative [facility] EKG - 12/15/2014 15:09 EDT ? [facility] ? Test Date: ?2014-12-15 Pat Name: ? ISA RO ?Department: ?? CVU ? Room: ? CVU37 Gender: ? F ?Snack Bar Cook: ?? [id number] : ?1965 ? Requested By: SUDARSHAN-EMMANUEL [facility] A Order Number: [id number] ? Reading MD: ?? JOHNNY PATEL MD ? Measurements Intervals ?[place] ? Rate: ? 64 ? P: ?70 [...] Note Johnny Patel MD - 12/15/2014 [facility] Test Date: 2014-12-15 Pat Name: ISA RO Department: CVU Room: [facility] Gender: F Snack Bar Cook: [id number] : 1965 Requested By: RUTH Vera Order Number: [id number] Reading MD: JOHNNY VICTOR Measurements Intervals [place] Rate: 64 P: 70 OR: 155 QRS: [...] Abiodun Velez MD CARDIAC ECG ORDER JAMI [facility] EKG * PROTIME (12/15/2014 10:04 EDT) [facility] Pro Time 10.3 9.5 - 12.3 [...] Abiodun Velez MD HEMATOLOGY & PF4 ORDERABLES [facility] [address] [place] [address] * HEMAGRAM (12/15/2014 10:04 EDT) WBC 6.17 [...] 7.5 - 11.2 fl 12/15/2014 10:28 EDT [facility] Blood specimen (specimen) BLOOD SPECIMEN / Unknown 12/15/2014 10:04 EDT 12/15/2014 10:21 EDT Abiodun Velez MD HEMATOLOGY & PF4 ORDERABLES Performing Organization Address City/[facility]/ZIP Co de Phone Number [facility] [address] [place] [address] * ELECTROLYTES (12/15/2014 10:04 EDT) Sodium 141 136 - 145 mEq/L 12/15/2014 10:45 EDT [facility] Potassium 4.3 3.5 - 5.0 mEq/L 12/15/2014 10:45 EDT [facility] Chloride 103 96 - 110 mEq/L 12/15/2014 10:45 EDT [facility] CO2 28 24 - 32 mEq/L 12/15/2014 10:45 EDT [facility] Blood specimen (specimen) BLOOD SPECIMEN / Unknown 12/15/2014 10:04 EDT 12/15/2014 10:21 EDT Abiodun Velez MD CHEMISTRY & BLOOD GAS ORDERABLES Performing Organization Address [facility] Co de Phone Number [facility] [address] [place] [address] * CREATININE (12/15/2014 10:04 EDT) Creatinine 0.78 0.52 - 1.04 mg/dl 12/15/2014 10:45 EDT [facility] GFR, Calculated >60 >60 ml/min/1.7 3m2 12/15/2014 10:45 EDT [facility] Blood specimen (specimen) BLOOD SPECIMEN / Unknown 12/15/2014 10:04 EDT 12/15/2014 10:21 EDT Abiodun Velez MD CHEMISTRY & BLOOD GAS ORDERABLES [facility] [address] [place] [address] * BUN (12/15/2014 10:04 EDT) BUN 16 10 - 26 mg/dl 12/15/2014 10:45 EDT [facility] Blood specimen (specimen) BLOOD SPECIMEN / Unknown 12/15/2014 10:04 EDT 12/15/2014 10:21 EDT Abiodun Velez MD CHEMISTRY & BLOOD GAS ORDERABLES [facility] [address] [place] [address] documented in this encounter Visit Diagnoses Not [...] 12/15/2014 documented in this encounter Care Teams Product Development Coordinator Relationship Specialty Start Date End Date Pretty Avery MD [address] [place] [address] PCP - General 06/05/10 documented as of this encounter
--- OUTSIDE RECORDS SUMMARY | 2024-04-13 10:34 | XMS_ITS | Encounter Summary ---
Author Organization [facility] Address [address] [place] [address] Care Team Providers Care Industrial Economics Professor Name Role Phone Pretty Avery MD Primary Care Provider [phone] Encounter Details Date Type Department Care Team (Latest Contact Info) Description 12/05/2015 12:19 EDT - 12/05/2015 23:59 EDT Hospital Encounter [address] [address] Unknown, Provider, Discharge Disposition: Home or Self [...] Code Departure Means Destination Home or Self Alf documented in this encounter Plan of Treatment Not on file documented as of this encounter Visit Diagnoses Not on filedocumented in this encounter Care Teams Industrial Economics Professor Relationship Specialty Start Date End Date Pretty Avery MD [address] [place] [address] PCP - General 06/05/10 documented as of this encounter
--- OUTSIDE RECORDS SUMMARY | 2024-04-13 10:34 | XMS_ITS | Encounter Summary ---
Author Organization [facility] Address [address] [place] [address] Care Team Providers Care Websphere Commerce Consultant Name Role Phone Pretty Avery MD Primary Care Provider [phone] Encounter Details Date Type Department Care Team (Late st Contact Info) Description 08/23/2020 Lab Requisition [facility] Pathology & [place] [address] Outr Resulting Lab, Provider Social History Tobacco [...] rt-PCR Result NEGATIVE Negative 08/25/2020 8:37 EST [facility] Comment: 2019-novel Coronavirus (2019-nCoV) not [...] in accordance with CLIA regulations, [employer] [place] (CAP) guidelines (Dec 01, 2019), and FDA guidance (Nov 12, 2019). This test is only for use under the Food and Drug Administration's Emergency Use Authorization. Swab ENTIRE NASOPHARYNX / Unknown 08/22/2020 13:10 EST 08/23/2020 15:58 EST Provider Outr Resulting Lab MICROBIOLOGY - GENERAL ORDERABLES [facility] [place], [place] * COVID-19 TESTING (08/22/2020 13:10 EST) COVID-19 rt-PCR Result NEGATIVE Negative 08/25/2020 10:01 EST [facility] Comment: 2019-novel Coronavirus (2019-nCoV) not [...] in accordance with CLIA regulations, [employer] [place] [employer] (CAP) guidelines (Dec 01, 2019), and FDA guidance (Nov 12, 2019). This test is only for use under the Food and Drug Administration's Emergency Use Authorization. Performing Lab [facility] 08/25/2020 10:01 EST [facility] Swab 08/22/2020 13:1 0 EST 08/23/2020 15:58 EST Provider Outr Resulting Lab MICROBIOLOGY - GENERAL ORDERABLES [facility] [address] [place] [address] [facility] [place], [place] documented in this encounter Visit Diagnoses Not on filedocumented in this encounter Care Teams [employer] Commerce Consultant Relationship Specialty Start Date End Date Pretty Avery MD [address] [place] [address] PCP - General 06/05/10 documented as of this encounter
--- OUTSIDE RECORDS SUMMARY | 2024-04-13 10:34 | XMS_ITS | Encounter Summary ---
Author Organization [facility] Address [address] [place] [address] Care Team Providers Care Pharmacy Clerk Name Role Phone Pretty Avery MD Primary Care Provider [phone] Encounter Details Date Type Department Care Team (Late st Contact Info) Description 02/15/2020 Lab Requisition [facility] Pathology & Laboratory Medicine - [address] [address] Outr Resulting Lab, Provider Social History Tobacco [...] - BROAD COVID TEST (02/15/2020 13:38 EDT) [facility] COVID-19 rt-PCR Result NEGATIVE Negative 02/17/2020 10:45 EDT [facility] Comment: 2019-novel Coronavirus (2019-nCoV) [...] in accordance with CLIA regulations, [employer] [place] [employer] (CAP) guidelines (Dec 01, 2019), and FDA guidance (Nov 12, 2019). This test is only for use under the Food and Drug Administration's Emergency Use Authorization. Swab ENTIRE NASOPHARYNX / Unknown 02/15/2020 13:38 EDT 02/15/2020 21:00 EDT Provider Outr Resulting Lab MICROBIOLOGY - GENERAL ORDERABLES [facility] [place], [place] * COVID-19 TESTING (02/15/2020 13:38 EDT) COVID-19 rt-PCR Result NEGATIVE Negative 02/17/2020 12:54 EDT [facility] Comment: 2019-novel Coronavirus (2019-nCoV) [...] in accordance with CLIA regulations, [employer] (CAP) guidelines (Dec 01, 2019), and FDA guidance (Nov 12, 2019). This test is only for use under the Food and Drug Administration's Emergency Use Authorization. Performing Lab [facility] 02/17/2020 12:54 EDT [facility] Swab ENTIRE NASOPHARYNX / Unknown 02/15/2020 13:38 EDT 02/15/2020 21:00 EDT Provider Outr Resulting Lab MICROBIOLOGY - GENERAL ORDERABLES [facility] [address] [place] [address] [facility] [place] documented in this encounter Visit Diagnoses Not on filedocumented in this encounter Care Teams Pharmacy Clerk Relationship Specialty Start Date End Date Pretty Avery MD [address] [place] [address] PCP - General 06/05/10 documented as of this encounter
--- OUTSIDE RECORDS SUMMARY | 2024-04-13 10:34 | XMS_ITS | Encounter Summary ---
Author Organization [facility] Address [address] [place] [address] Care Team Providers Care Bit Grinder Name Role Phone Pretty Avery MD Primary Care Provider [phone] Encounter Details Date Type Department Care Team (Late st Contact Info) Description 12/05/2015 Results Only [facility] [phone] Ezequiel Estrada MD [address] [place] [address] [phone] Social History Tobacco Use Types Packs/Day Years [...] ? EZEQUIEL THOMAS ? Accession #: ? [id number] ? : ? 1965 (Age: 50) ??F [...] the atypical cells from the stroma. ??(Dr. Mcgovern)/[facility] Document reviewed and electronically signed [...] May 12/06/2015 1:10 PM End of Report [facility] 12/05/2015 10:3 3 EDT 12/06/2015 10:33 EDT Ezequiel Estrada MD PATHOLOGY ORDERABLES [facility] [address] [place] [address] documented in this encounter Visit Diagnoses Not on filedocumented in this encounter Care Teams Bit Grinder Relationship Specialty Start Date End Date Pretty Avery MD [address] [place] [phone] PCP - General 06/05/10 documented as of this encounter
--- OUTSIDE RECORDS SUMMARY | 2024-04-13 10:35 | XMS_ITS | Clinical Summary ---
Author Organization [facility] Address [facility] [place] [address] Care Team Providers Care Sample Room Supervisor Name Role Phone None Primary Care Provider [...] by mouth daily. 30 capsule 3 03/23/2024 Active metoprolol succinate XL (Toprol-XL) 25 mg ER 24 hr tablet Take 0.5 tablets by mouth nightly. 30 tablet 03/27/2024 Active Active Problems Problem Noted Date Diagnosed Date Acute ST elevation myocardia l infarction (STEMI) due to occlusion of left anterior descending (LAD) coronary artery 03/19/2024 Encounters Date Type Department Care Team Description 03/27/2024 Telephone Cardiology at [address] [phone] Fidel Yanes PA 03/19/2024 8:10 AM EDT - 03/19/2024 11:59 PM EDT Hospital Encounter Non-Invasive Cardiology Lab [place] [phone] Discharge Disposition: Home 03/19/2024 1:05 AM EDT - 03/19/2024 2:[address] [place] [phone] Ramo Roy MD CARDIAC CATHETERIZATION 03/19/2024 12:37 AM EDT - 03/22/2024 12:10 PM EDT Hospital Encounter Heart and Vascular Unit Level 4 [place] A at [place] [phone] Min, MD Santi Vigil Xavier L, MD Ramachandra, Nayana, MD ST elevation myocardial infarction involving left anterior descending (LAD) coronary artery; Chest pain, unspecified type Discharge Disposition: Home 03/18/2024 11:37 PM EDT - 03/18/2024 11:59 PM EDT Hospital [place] [phone] Min, Destin Grajeda MD Discharge Disposition: Home 03/18/2024 Telephone Cardiology at [address] [phone] Yusuf Herrera MD 03/18/2024 External Results [place] [phone] from Last 3 Months Social History Tobacco Use Types Packs/Day Years Used Date Smoking Tobacco: Former Smokeless Tobacco: Never Alcohol Use Standard Drinks/Week Comments Yes 14 (1 standard drink = 0.6 oz pu re alcohol) [facility] Utilities Answer Date Recorded In the past 12 months has [employer], oil, or water [employer] threatened to shut off services in your [...] time in the past 12 m [facility], were you homeless or living in a halfway (including now)? No 03/21/2024 DH IPV Inpatient [...] AM EDT Office Visit Cardiology at [address] [place] [phone] Herlinda Weaver PA [facility] [place] [address] Health Maintenance Due Date Last Done Comments [...] is included. WBC 11.6(H) 4.0 - 9.5 x10(3)/[facility] LABORATORY RBC 4.80 4.00 - 5.21 x10(6)/[facility] LABORATORY Hemoglobin 13.5 11.7 - 15.5 g/dL [facility] Hematocrit 40.3 35.7 - 45.8 % [facility] MCV 84.0 82.6 - 94.4 [facility] LABORATORY MCH 28.1 27.1 - 32.0 pg [facility] MCHC 33.5 31.7 - 35.0 g/dL [facility] Platelets 232 145 - 357 x10(3)/[facility] RDWSD 42.2 37.0 - 46.0 [facility] LABORATORY RDWCV 13.5 11.5 - 14.1 % [facility] MPV 9.7 7.6 - 12.9 [facility] LABORATORY nRBC % Auto 0.0 % [facility] LABORATORY nRBC Abs Auto 0.000 0.000 - 0.000 x10(3)/[facility] LABORATORY Blood 03/22/2024 5:06 AM EDT 03/22/2024 5:12 AM EDT Narrative Resulting Agency Comment Spec In Lab Horace Hancock MD HEMATOLOGY ORDERABLE S [facility] [place] [address] * (ABNORMAL) Differential, Automated (03/22/2024 5:06 AM EDT) Only the most recent of5 resultswithin the time period is included. Pathologist [facility] Neutrophils % 71.6 % [facility] Neutr Abs (ANC) 8.34(H) 1.70 - 6.10 x10(3)/[facility] LABORATORY Lymphocytes % 17.4 % [facility] Lymphocytes Abs 2.0 0.9 - 3.2 x10(3)/[facility] LABORATORY Monocytes % 8.2 % [facility] Monocyte Abs 1.0(H) 0.3 - 0.9 x10(3)/[facility] LABORATORY Eosinophils % 2.2 % [facility] Eosinophils Abs 0.3 0.0 - 0.4 x10(3)/[facility] LABORATORY Basophils % 0.3 % [facility] LAB[facility] Basophils Abs 0.0 0.0 - 0.1 x10(3)/[facility] LABORATORY Immature Gran % 0.30 % [facility] Comment: Immature granulocytes(IG's)percentage and absolute count will include metamyelocytes, myelocytes, and promyelocytes. Blood smears from CBCs yielding IG's will be scanned manually for concordance. If this scan disagrees with the automated IG or if promyelocytes are noted, a manual differential will be performed. Lesia Gran Abs 0.03 0.00 - 0.04 x10(3)/[facility] LABORATORY Blood 03/22/2024 5:06 AM EDT 03/22/2024 5:12 AM EDT Narrative Resulting Agency Comment Spec In Lab Horace Hancock MD HEMATOLOGY ORDERABLE S [facility] [place] [address] * Magnesium (03/22/2024 5:06 AM EDT) Only the most recent of5 resultswithin the time period is included. Magnesium 0.90 0.69 - 1.07 mmol/L [facility] Blood 03/22/2024 5:06 AM EDT 03/22/2024 5:12 AM EDT Narrative Resulting Agency Comment Spec In Lab Destin Ambrosio MD CHEMISTRY ORDERABLES [facility] [place] [address] * Basic Metabolic Panel (non-fasting) (03/22/2024 5:06 AM EDT) Only the most recent of4 resultswithin the time period is included. Glucose Lvl 107 65 - 199 mg/dL [facility] Comment:Diabetes: >=200 mg/d L plus symptoms BUN 18 8 - 18 mg/dL [facility] Creatinine 0.87 0.70 - 1.20 mg/dL [facility] Sodium 138 135 - 145 mmol/L [facility] Potassium 4.1 3.5 - 5.0 mmol/L [facility] Comment: Please note: ??Patients with WBC >100,000 may have falsely elevated Potassium levels. ??For accurate Potassium quantification in these patients send serum separator tube (gold top) for subsequent determinations. ??Contact the Clinical Chemistry Laboratory if there are any questions. Chloride 104 98 - 107 mmol/L [facility] CO2 24 22 - 31 mmol/L [facility] Anion Gap 10 5 - 15 mmol/L [facility] Calcium 9.2 8.5 - 10.5 mg/dL [facility] Estimated GFR 76 >=60 mL/min/1. 73 m?? [facility] Comment: This patient's estimated [...] Hancock MD CHEMISTRY ORDERABLES Performing Organization Address [facility] Co de Phone Number [facility] [place] [address] * Metanephrines, Fractionated Free, plasma (03/21/2024 2:57 AM EDT) Normetane Free 0.47 <0.90 nmol/L [facility] Comment: Test Performed by: [facility] [place] [address] Thermal Technician: Chasity Hernandez Ph.D.; CLIA# [id number] Metanephr Free <0.20 <0.50 nmol/L [facility] Comment: ADDITIONAL INFORMATION This test was developed and its performance characteristics determined by [facility] in a manner consistent with CLIA requirements. This test has not been cleared or approved by the U.S. Food and Drug Administration. Test Performed by: [facility] [place] [address] Thermal Technician: Chasity Hernandez Ph.D.; CLIA# [id number] Blood 03/21/2024 2:57 AM EDT 03/21/2024 11:29 AM EDT Narrative Resulting Agency Comment Spec In Lab Horace Hancock MD CHEMISTRY ORDERABLES Performing Organization Address City/[facility]/ZIP Co de Phone Number [facility] [place] [address] * Iron and TIBC (03/20/2024 10:38 AM EDT) Iron 57 30 - 150 mcg/dL [facility] TIBC 278 250 - 450 mcg/dL [facility] Iron Saturation 21 20 - 50 % [facility] Blood Venous Draw / Unknown 03/20/2024 10:38 AM EDT 03/20/2024 10:52 AM EDT Narrative Resulting Agency Comment Spec In Lab Horace Hancock MD CHEMISTRY ORDERABLES [facility] [place] [address] * (ABNORMAL) Troponin (03/19/2024 11:01 PM EDT) Only the most recent of5 resultswithin the time period is included. Troponin-T HS 2,406(H) <=14 ng/L [facility] Comment: This patient's troponin [...] can be found in the [facility] Laboratory Test Catalog Troponin - [facility] Laboratory Test Catalog Reference: Fourth [place] Definition of Myocardial Infarction. Journal of the [place] [employer] 2018;72:1262-0336 Blood 03/19/2024 11:0 1 PM EDT 03/19/2024 11:05 PM EDT Narrative Resulting Agency Comment Spec In Lab Franky Maed MD CHEMISTRY ORDERABLE S Performing Organization Address City/[facility]/ZIP Co de Phone Number [facility] [place] [address] * EKG 12 Lead (03/19/2024 8:32 PM EDT) Only the most recent of3 resultswithin the time period is included. Ventricular rate 70 BPM MUSE SYSTEM Atrial Rate 70 BPM MUSE SYSTEM P-R Interval 158 ms MUSE SYSTEM QRS Duration 78 ms MUSE SYSTEM Q-T Interval 470 ms MUSE SYSTEM QTC Calculated (Bezet) 507 ms MUSE SYSTEM Calculated P Hamilton 62 degrees MUSE SYSTEM Calculated R Hamilton 42 degrees MUSE SYSTEM Calculated T Hamilton -158 degrees MUSE SYSTEM INTERPRETATION Normal sinus rhythm Poor R wave progression T wave abnormality, consider lateral ischemia Prolonged QT Abnormal ECG When compared with ECG of 19-MAR-2024 17:27, No significant change was found Confirmed by MD Hebert, Destin ([id number]) on 03/23/2024 8:10:58 AM MUSE SYSTEM 03/19/2024 8:32 PM EDT 03/23/2024 8:10 AM EDT Franky Mead MD ECG ORDERABLES Performing Organization Address [facility]/ZIP Co de Phone Number MUSE SYSTEM * ECHO COMPLETE W CONTRAST (03/19/2024 10:53 AM EDT) Anatomical Region Laterality Modality Cardiac Other 03/19/2024 9:03 AM EDT Narrative 03/19/2024 12:12 PM EDT [address] [place] [address] ? Echocardiogram Report Name: ISA RO ?Study Date: 03/19/2024 09:03 AMBP: 129/68 mmHg ? Patient Location: : 1965 ? Height: 158 cm ? Account: [id number] Age: 59 yrs ? Weight: 57 kg Gender: Female ?BSA: 1.6 m2 Ordering Physician: GANESH NGUYEN Referring Physician: GANESH NGUYEN Performed By: PEREZ Carlos Reason For Study: STEMI involving LAD Exam Location: [facility]. Interpretation Summary Normal left ventricle size with mildly reduced LV function. LV ejection fraction 49%. LAD territory wall motion abnormality, predominantly involving the LV apex. No LV thrombus visualized with echo contrast. Normal right ventricle. No significant valvular abnormalities. Compared with prior echo dated 08/28/23, LV function has now decreased and new wall motion abnormalities. Procedure Complete-[id number]. Image enhancement Definity was used for left [...] Note Destin Ambrosio MD - 03/19/2024 [address] [place] [address] Echocardiogram Report Name: ISA RO Study Date: 409:03 AMBP: 129/68 mmHg Patient Location: : 1965 Height: 158 cm Account: [id number] Age: 59 yrs Weight: 57 kg Gender: Female BSA: 1.6 m2 Ordering Physician: GANESH NGUYEN Referring Physician: GANESH NGUYEN Performed By: PEREZ Carlos Reason For Study: STEMI involving LAD Exam Location: [facility]. Interpretation Summary Normal left ventricle size with mildly reduced LV function. LV ejectionfraction 49%. LAD territory wall motion abnormality, predominantly involving the LVapex. No LV thrombus visualized with echo contrast. Normal right ventricle. No significant valvular abnormalities. Compared with prior echo dated 08/28/23, LV function has now decreased andnew wall motion abnormalities. Procedure Complete-[id number]. Image enhancement Definity was used for left [...] View (03/19/2024 8:37 AM EDT) WORKSTATION ID [id number] RAD Anatomical Region Laterality Modality Chest N/A [...] who have questions please contact the health ambulatory care that requested your imaging first. ? Narrative [...] patients who have questions please contactthe health ambulatory care that requested your imaging first. Delores Jett MD IMG DX ORDERABLES * APTT (03/19/2024 5:25 AM EDT) Only the most recent of2 resultswithin the time period is included. PTT 29 25 - 37 sec [facility] Comment: The PTT is NOT appropriate for heparin monitoring. Use the Anti-Xa level for heparin monitoring (HEP UFH) or LMWH monitoring (HEP LMW). A PTT less than 37 seconds generally indicates adequate hemostasis. Blood 03/19/2024 5:25 AM EDT 03/19/2024 5:34 AM EDT Narrative Resulting Agency Comment Spec In Lab Ganesh Nguyen MD HEMATOLOGY ORDERA BLES Performing Organization Address City/[facility]/ZIP Co de Phone Number [facility] [place] [address] * Prothrombin Time (03/19/2024 5:25 AM EDT) Only the most recent of2 resultswithin the time period is included. PT 10.9 9.4 - 12.5 sec [facility] INR [address] [facility] Comment: An INR <2.0 indicates [...] MD HEMATOLOGY ORDERA BLES Performing Organization Address City/[facility]/ZIP Co de Phone Number [facility] [place] [address] * Hemoglobin A1c (03/19/2024 5:25 AM EDT) Hemoglobin A1C 5.6 4.3 - 5.6 % [facility] Comment: Reference Range: 4.3 [...] Mellitus, Diabetes Care 2013; 36: Suppl. 1, K57-99 Est Avg Gluc 114 mg/dL [facility] Blood Venous Draw / Unknown 03/19/2024 5:25 AM EDT 03/19/2024 3:52 PM EDT Narrative Resulting Agency Comment Spec In Lab Horace Hancock MD CHEMISTRY ORDERABLES [facility] [place] [address] * Lipid Panel (Reflex Direct LDL) (03/19/2024 5:25 AM EDT) Chol, Total 324 mg/dL [facility] Comment: Desirable: ? <200 mg/dL Borderline High: 200-239 mg/dL Higher: ?>jo=867 mg/dL Triglycerides 200 mg/dL [facility] Comment: Normal: ?<150 mg/dL Borderline High: 150-199 mg/dL High: ?200-499 mg/dL Very High: ? >bk=645 mg/dL HDL 68 mg/dL [facility] Comment: Females: High Risk: <50 mg/dL Males: High Risk: <40 mg/dL LDL Cholesterol 216 mg/dL [facility] Comment: Desirable: ? <100 mg/dL Above Desirable: 100-129 mg/dL Borderline High: 130-159 mg/dL High: ?160-189 mg/dL Very High: ? >ft=925 mg/dL Lipid Interpretation See Note [facility] Comment: It is important [...] ACC/AHA Guidelines (most recently Jw et al. [facility] 06/17/22): For individuals with atherosclerotic cardiovascular disease (ASCVD)or LDL >pb=160 mg/dL, use a high-intensity statin (40-80 mg [...] Lab Ganesh Nguyen MD CHEMISTRY ORDERAB LES [facility] [place] [address] * (ABNORMAL) Comprehensive metabolic panel (non-fasting) (03/19/2024 5:25 AM EDT) Glucose Lvl 181 65 - 199 mg/dL [facility] Comment:Diabetes: >=200 mg/d L plus symptoms BUN 14 8 - 18 mg/dL [facility] Creatinine 0.91 0.70 - 1.20 mg/dL [facility] Sodium 137 135 - 145 mmol/L [facility] Potassium 4.2 3.5 - 5.0 mmol/L [facility] Comment: Please note: ??Patients with WBC >100,000 may have falsely elevated Potassium levels. ??For accurate Potassium quantification in these patients send serum separator tube (gold top) for subsequent determinations. ??Contact the Clinical Chemistry Laboratory if there are any questions. Chloride 100 98 - 107 mmol/L [facility] CO2 22 22 - 31 mmol/L [facility] Anion Gap 15 5 - 15 mmol/L [facility] Calcium 8.7 8.5 - 10.5 mg/dL [facility] Total Protein 7.2 6.1 - 8.0 g/dL [facility] Albumin 4.5 3.2 - 5.2 g/dL [facility] AST 95(H) 0 - 30 unit/L [facility] Comment:result rechecked-bz ALT 31(H) 0 - 30 unit/L [facility] Alk Phos 70 35 - 105 unit/L [facility] Total Bilirubin 0.5 0.2 - 1.3 mg/dL [facility] Estimated GFR 72 >=60 mL/min/1. 73 m?? [facility] Comment: This patient's estimated [...] MD CHEMISTRY ORDERAB LES Performing Organization Address City/[facility]/ZIP Co de Phone Number [facility] [place] [address] * Phosphorus (03/19/2024 2:20 AM EDT) Phosphorus 3.8 2.5 - 4.5 mg/dL [facility] Blood 03/19/2024 2:20 AM EDT 03/19/2024 2:59 AM EDT Narrative Resulting Agency Comment Spec In Lab Ganesh Nguyen MD CHEMISTRY ORDERAB LES Performing Organization Address [facility]/ZIP Co de Phone Number [facility] [place] [address] * (ABNORMAL) pro-Brain Natriuretic Peptide (03/19/2024 2:20 AM EDT) ProBNP 529(H) <=124 pg/mL [facility] Blood 03/19/2024 2:20 AM EDT 03/19/2024 2:59 AM EDT Narrative Resulting Agency Comment Spec In Lab Ganesh Nguyen MD CHEMISTRY ORDERAB LES Performing Organization Address [facility] Co de Phone Number [facility] [place] [address] * (ABNORMAL) Hepatic Function Panel (03/19/2024 2:20 AM EDT) Total Protein 6.7 6.1 - 8.0 g/dL [facility] Albumin 4.3 3.2 - 5.2 g/dL [facility] AST 49(H) 0 - 30 unit/L [facility] ALT 26 0 - 30 unit/L [facility] Alk Phos 67 35 - 105 unit/L [facility] Total Bilirubin 0.4 0.2 - 1.3 mg/dL [facility] Bili, Direct 0.1 0.0 - 0.3 mg/dL [facility] Blood 03/19/2024 2:20 AM EDT 03/19/2024 2:59 AM EDT Narrative Resulting Agency Comment Spec In Lab Ganesh Nguyen MD CHEMISTRY ORDERAB LES [facility] [place] [address] * (ABNORMAL) Point of Care Blood Gas Historical (03/19/2024 1:41 AM EDT) Only the most recent of2 resultswithin the time period is included. POC pH 7.28(Criti lewis) 7.35 - 7.45 [facility] POC PCO2 40 35 - 45 mmHg [facility] POC PO2 84(L) 85 - 104 mmHg [facility] POC Base Excess -8.0(L) -3.0 - 3.0 mmol/L [facility] POC HCO3 18.6(L) 20.0 - 26.0 mmol/L [facility] POC TCO2 20(L) 22 - 31 mmol/L [facility] POC Sodium 134(L) 135 - 145 mmol/L [facility] POC Potassium 3.4(L) 3.5 - 5.0 mmol/L [facility] POC Ionized Ca 1.09(L) 1.15 - 1.33 mmol/L [facility] POC Hematocrit 38.0 34.0 - 45.0 % [facility] POC Calc Hgb 12.9 11.2 - 15.7 g/dL [facility] Blood 03/19/2024 1:41 AM EDT 03/19/2024 1:41 AM EDT Kathryn Walker MD CHEMISTRY ORDERABL ES [facility] [place] [address] * CARDIAC CATHETERIZATION (03/19/2024 1:36 AM EDT) Anatomical Region Laterality Modality Other Narrative 03/19/2024 7:19 AM EDT ?[facility] ? Cardiac Catheterization/Intervention Report ? Patient Name: Isa Ro. ? Procedure Date: 03/19/2024 ? A #: [id number] ? Primary Physician: Ramo Roy ? Case #: [id number] ? File Name: [id number] ? Catheterization Order Number: [id number] ? [facility] ? Final Report [place], [place] ? Patient Name: ? Isa A. Warnaar ? ID#: ?[id number] ? : ?1965 ? Procedure Date: ? March 19, 2024 ? Case #: ? [id number] ? Room: ? 6 ? Case Physician: [...] procedure was Emergent. The indication for ?the cath lab radiology technician visit is ACS less than or [...] ?3.5 guiding catheter and a 3.5 Fr [place] 20 Mhz using auto 1 ?mm/sec pullback. [...] A premounted 3.00 x 08 mm [place]to [place] (JAHAIRA) was deployed ? with a maximum inflation pressure of 12 atmospheres. ? Another stent insertion was accomplished through a 6 Fr. EBU ? 3.5 guide. ??A premounted 2.00 x 08 mm [place]to [place] (JAHAIRA) was ? deployed. ? The final [...] dose administered prior to arrival in the cath lab radiology technician. ?Recommended anti-platelet/anti-thrombotic regimen: ?Start aspirin 81 mg daily now and continue for indefinitely. ?Start clopidogrel 75 mg daily now and continue for 12 months then stop. ?These recommendations are made at the time of the intervention. Patient ?and provider preferences or a changing clinical situation may require ?modification of this regimen. Consult [facility] Interventional Cardiology for [...] against any medical treatment. Consult ?http://tools.acc.org/DAPTriskapp/#!/content/calculator/ or [facility] ?Interventional Cardiology for [...] Procedure Note Ramo Roy MD - 03/21/2024 [facility] Cardiac Catheterization/Intervention Report Patient Name: Isa Ro Procedure Date: 03/19/2024 A #: [id number] Primary Physician: Ramo Roy Case #: [id number] File Name: [id number] Catheterization Order Number: [id number] [facility] FinalReport [place], [place] Patient Name: Isa Ro ID#:[id number] :1965 Procedure Date: March 19, 2024 Case [...] patientwas designated as ASA Class IV. The [facility] clinical frailty scale is 3: Managing Well. Diagnostic Tests: Prior Coronary Angiography: Prior coronary angiography was performed on 12/15/2014. Electrocardiography: EKG was assessed by ECG. EKG was Abnormal. EKG showed STDeviation >= 0.5 mm and other abnormality. Medications Prior to Procedure: Aspirin. Indications for Diagnostic Cath: The priority of the diagnostic procedure was Emergent. Theindication for the cath lab radiology technician visit is ACS less than or [...] 3.5 guiding catheter and a 3.5 Fr [place] 20 Mhz usingauto 1 mm/sec pullback. Imaging [...] priority for the procedure was Emergent.The [facility] indication for the procedure [...] The lesion was predilated with a 2.50mm [id number] MM balloon with a maximum inflation pressure of 14atmospheres. A premounted 3.00 x 08 mm [place] (JAHAIRA) wasdeployed with a maximum inflation pressure of 12 atmospheres. Another stent insertion was accomplished through a 6 Fr.EBU 3.5 guide. A premounted 2.00 x 08 mm [place] (JAHAIRA)was deployed. The final outcome was defined [...] dose administered prior to arrival in the cath lab radiology technician. Recommended anti-platelet/anti-thrombotic regimen: Start aspirin 81 mg daily now and continue for indefinitely. Start clopidogrel 75 mg daily now and continue for 12 months thenstop. These recommendations are made at the time of the intervention.Patient and provider preferences or a changing clinical situation mayrequire modification of this regimen. Consult [facility] Interventional Cardiologyfor questions. 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
--- OUTSIDE RECORDS SUMMARY | 2024-04-13 10:35 | XMS_ITS | Encounter Summary ---
Author Organization [facility] Address [address] [place] [address] Care Team Providers Care Manager Field Service Name Role Phone Unavailable Primary Care Provider Unavailabl e Encounter Details Date Type Department Care Team (Late st Contact Info) Description 05/15/2010 Results Only [facility] Laboratory Services - [facility] ([facility]) [address] [place], [place] [phone] Jake Sabillon FNP [address] [place], [place] [id number] Social History Tobacco Use Types Packs/Day Years [...] ? EZEQUIEL THOMAS ? Accession #: ? [id number] ? : ? 1965 (Age: 45) ??F [...] [facility] 05/15/2010 05/17/2010 Jake Sabillon MOTOR RACER PATHOLOGY ORDERABLES [facility] [address] [place] [address] documented in this encounter Visit Diagnoses Not on filedocumented in this encounter
--- OUTSIDE RECORDS SUMMARY | 2024-04-13 10:35 | XMS_ITS | Encounter Summary ---
Author Organization [facility] Address [address] [place] [address] Care Team Providers Care Metallurgy Laboratory Technician Name Role Phone Pretty Avery MD Primary Care Provider Encounter Details Date Type Department Care Team (Late st Contact Info) Description 09/06/2013 Results Only [facility] Laboratory Services - [facility] ([facility]) [address] [place], [place] [phone] Jake Sabillon FNP [address] [place], [place] [address] Social History Tobacco Use Types Packs/Day Years [...] ANNEEZEQUIEL GREEN Chuy ? Accession #: ? [id number] : ? 1965 (Age: 48) ??F ?Collect Date: ? 09/06/2013 Location: ? [facility] ? Receive Date: ? 09/08/2013 Provider: ?JAKE SABILLON WIRE BORDER ASSEMBLER Copy to: ? Specimen/Source: ?Pap Test, Cervix/Endocervix, [...] Report [facility] 09/06/2013 09/08/2013 Jake Sabillon WIRE BORDER ASSEMBLER PATHOLOGY ORDERABLES [facility] [address] [place] [address] documented in this encounter Visit Diagnoses Not on filedocumented in this encounter Care Teams Metallurgy Laboratory Technician Relationship Specialty Start Date End Date Pretty Avery MD [address] [place] [address] PCP - General 06/05/10 documented as of this encounter
--- OUTSIDE RECORDS SUMMARY | 2024-04-13 10:35 | XMS_ITS | Encounter Summary ---
Author Organization [facility] Address [address] [place] [address] Care Team Providers Care Claims Technician Name Role Phone Unavailable Primary Care Provider Unavailabl e Encounter Details Date Type Department Care Team (Late st Contact Info) Description 12/31/2007 14:07 EDT Hospital Encounter [address] [address] Skip Alcocer MD [address] [place] [address], [facility] [address] [place] [address] Discharge Disposition: Auto Discharge Social History Tobacco [...] 10:19 EST CYTOPATHOLOGY Routine 08/28/2008 0:00 EST [facility] VI[facility] 12/31/2007 16:20 EDT [facility] CHORIONIC BARRETO SAMPLING 12/31/2007 15:40 EDT documented [...] - GE NERAL ORDERABLES Performing Organization Address City/State/[facility] Co de Phone Number [facility] [address] [place] [address] * CYTOPATHOLOGY (08/28/2008 0:00 EST) Pathology Report: CYTOPATHOLOGY REPORT ? Reports generated via electronic interface contain original data; ? however they are lacking the format of the original report. ? Caution should be taken when reading/interpreti ng unformatted reports. ? Name: ? EZEQUIEL THOMAS ? Accession #: ? [id number] ? : ? 1965 (Age: 43) ??F ?Collect Date: ? 08/28/2008 ? Location: ? [facility] ? Receive Date: ? 08/30/2008 ? [facility] ? Copy to: ? Specimen/Source: ?Pap [...] significance (ASC-US). ? EDUCATIONAL NOTES/RECOMMENDATI ONS ? [facility] recommends following the 2006 Consensus Guidelines for the Management of Women with Abnormal Cervical Cancer Screening Tests (JLGTD, ? 2007;11(4):201-222 ). ??Consensus guidelines are available online at ? www.ASCCP.org. ? Document reviewed and electronically signed by: ? MARIAA Beverly PLOTZ MD ? Report Date: ??09/04/2008 10:20 ? End of Report ? [facility] 08/28/2008 08/30/2008 Fred Reece [facility] PATHOLOGY ORDERAB LES Performing Organization Address City/State/[facility] Co de Phone Number [facility] [address] [place] [address] * [facility] (12/31/2007 16:20 EDT) Anatomical Region Laterality Modality Other 12/31/2007 16:2 0 EDT Narrative 02/25/2009 13:06 EDT first trimester prior to cvs Please refer to the separate [facility] report. ??Contact Maternal Medicine. Procedure Note Magdalena Strickland MD - 02/25/2009 first trimester prior to cvs Please refer to the separate [facility] report. Contact Maternal Medicine. Magdalena Strickland MD [facility] ORDERABLE S * [facility] CHORIONIC BARRETO SAMPLING (12/31/2007 15:40 EDT) Anatomical Region Laterality Modality Other 12/31/2007 15:4 0 EDT Narrative 02/25/2009 10:52 EDT [facility] WITH DR ALCOCER Please refer to the separate [facility] report. ??Contact Maternal Medicine. Procedure Note Skip Alcocer MD - 02/25/2009 [facility] WITH DR ALCOCER Please refer to the separate [facility] report. Contact Maternal Medicine. Skip Reyes MD [facility] ORDERA BLES documented in this encounter Visit Diagnoses Not on filedocumented in this encounter
--- OUTSIDE RECORDS SUMMARY | 2024-04-13 10:35 | XMS_ITS | Encounter Summary ---
Author Organization [facility] Address [address] [place] [address] Care Team Providers Care Financial Sales Manager Name Role Phone Unavailable Primary Care Provider Unavailabl e Encounter Details Date Type Department Care Team (Late st Contact Info) Description 04/30/2010 Results Only [facility] Medicine [address] [address] Pretty Avery MD [address] [place] [phone] Social History Tobacco Use Types Packs/Day Years [...]
--- OUTSIDE RECORDS SUMMARY | 2024-04-13 10:35 | XMS_ITS | Encounter Summary ---
Author Organization [facility] [place] [address] Care Team Providers Care Auto Tune Up Mechanic Name Role Phone None Primary Care Provider Unavailabl e Reason for Visit * Auth/Cert (Routine) Specialty Diagnoses / Procedures Referred By Contac t Referred To Contact Diagnoses Acute ST elevation myocardial infarction (STEMI) due to occlusion of left anterior descending (LAD) coronary artery stemi Procedures EMERGENCY IPI Destin Ambrosio MD [facility] [place] [address] [facility] Referral ID Status Reason Start Date Expiration Date Visits Re quested Visits Authorized [id number] 1 1 Encounter Details Date Type Department Care Team (Latest Contact Info) Description 03/19/2024 8:10 AM EDT - 03/19/2024 11:59 PM EDT Hospital Encounter Non-In[place] [address] Discharge Disposition: Home Social History Tobacco Use [...] 10:40 AM EDT Office Visit Cardiology at [address] [address] Herlinda Weaver PA [facility] [place] [address] documented as of this encounter Procedures Procedure [...] mLs documented in this encounter Care Teams Auto Tune Up Mechanic Relationship Specialty Start Date End Date None None PCP - General 03/19/24 documented as of this encounter
--- OUTSIDE RECORDS SUMMARY | 2024-04-13 10:35 | XMS_ITS | Encounter Summary ---
Author Organization [facility] Address [address] [place] [address] Care Team Providers Care Filenet Developer Name Role Phone Pretty Avery MD Primary Care Provider [phone] Encounter Details Date Type Department Care Team (Latest Contact Info) Description 06/06/2010 18:54 EDT - 06/06/2010 23:59 EDT Hospital Encounter [address] [address] Pretty Avery MD [address] [place] [address] Discharge Disposition: Auto Discharge Social History Tobacco [...] on filedocumented in this encounter Care Teams Filenet Developer Relationship Specialty Start Date End Date Pretty Avery MD [address] [place] [phone] PCP - General 06/05/10 documented as of this encounter
--- OUTSIDE RECORDS SUMMARY | 2024-04-13 10:35 | XMS_ITS | Encounter Summary ---
Author Organization [facility] [place] Address [address] [place] [address] Care Team Providers Care Resistance Brazer Name Role Phone Pretty Avery MD Primary Care Provider [phone] Reason for Referral * Consult (Routine) - Closed Specialty Diagnoses / Procedures Referred By Contac t Referred To Contact Diagnoses NSTEMI (non-ST elevated myocardial infarction) ([facility]) S/P coronary artery stent placement Yesy Manuel NP [address] [place] [id number] Alex Soto MD [address] [place] [address] [address] Referral ID Status Reason Start Date Expiration Date V isits Requested Visits Authorized [id number] Closed Specialty Services Required 03/31/2014 1 1 Question Answer Reason for Request: post NSTEMI post PCI, CAD Scheduling Comments (optional ? describe specific scheduling needs if applicable): 1 month Expected Discharge Date (Inpatient Only): 04/01/2014 Comments Please schedule in [facility] cardiology clinic with Dr Alex Soto or next available stand in at that clinic. Office in [place] [phone]; cardiology clinic in [facility] [phone] * Consult (Routine) - Closed Specialty Diagnoses / Procedures Referred By Contac t Referred To Contact Cardiac Rehabilitation Diagnoses NSTEMI (non-ST elevated myocardial infarction) ([facility]) S/P coronary artery stent placement Yesy Manuel NP [address] [facility] [address] [place] [address] Referral ID Status Reason Start Date Expiration Date V isits Requested Visits Authorized [id number] Closed Specialty Services Required 03/31/2014 1 1 Question Answer Reason for Request: post NSTEMI, post pci, CAD Scheduling Comments (optional ? describe specific scheduling needs if applicable): 1 week Expected Discharge Date (Inpatient Only): 04/01/2014 Comments Please refer to [facility] in [facility] Encounter Details Date Type Department Care Team (Late st Contact Info) Description 03/30/2014 20:10 EDT - 04/01/2014 15:30 EDT Hospital Encounter [facility] Cardiac/Telemetry Unit [address] [place], [place] [address] Waqas Yao MD [address] 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 Her EKG showed non-specific ST changes and trops elevated at 0.179. She was transferred to [facility] for NSTEMI. She was started on heparin gtt, ASA, atovastatin, metoprolol, and ticagelor load. Heparin was weaned over the night. In the morning she had 2 more episodes of chest pain, and given SL nitro x2, whichimproved pain. She was later taken for [facility] after a discussion of the need to be on blood thinning medications for 12 months if a stent was to be placed. The patient agreed. Her [facility] had culprit lesionin LAD, which was [...] Consult/Follow Up Cardiac Rehabilitation Please refer to [facility] in [facility] Reason for Request: post NSTEMI, post pci, CAD Expected Discharge Date (Inpatient Only): 04/01/2014 Scheduling Time Frame: 1 week Authorizing Provider: Yesy Manuel NP Amb Consult/Follow Up Cardiology Please schedule in [facility] cardiology clinic with Dr Alex Soto or next available stand in at that clinic. Office in [place] [phone]; cardiology clinic in [facility] [phone] Reason for Request: post NSTEMI post PCI, CAD Expected Discharge Date (Inpatient Only): 04/01/2014 Scheduling Time Frame: 1 month Authorizing Provider: Yesy Manuel NP Follow up with your PCP in 1 week Follow-Up Labs and Tests: none documented in this encounter Discharge Instructions * Appointments* Tali Jaocbs MD - 04/01/2014 12:38 EDT -Follow up with your Primary Care Physician in 2 weeks -Follow up with cardiology in 4-6 weeks at [facility] Please continue your cardiac medications, [...] weeks. * Tali Jacobs MD - 03/31/2014 7523 EDT Cardiology Post Procedure Note Date of [...] case management office. Quyen Barrett RN, CM pager#[phone] * Yesy Manuel NP - 03/31/2014 1308 EDT Ticagrelor twice daily without interruption x 1 year reviewed with patient and she verbalizes understanding. Cardiac rehab reviewed with patient and the patient is willing to attend at [facility]. Referral sent and written material given to patient.Follow up has been requested with Dr Alex Soto in cardiology clinic, [facility]. senior sales manager contacted for Brilanta coverage. 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 Social Supports: Mother lives locally, friends available Existing Community Resources: No HH in past or currently, does not foresee needs upon discharge. PCP Pretty Avery MD Advanced Directives/DPOA: AD pamphlet given to patient Cultural/Spiritual Needs: Denied visit Insurance/Financial Needs: Medicaid coverage, pharmacy is [facility] in [facility] Transportation Needs: May need assistance with transportation, trying to set up a ride from family for d/c. Patient's car is in [place] currently. Patient Goals: No other needs at [...] relived with rest. She was taken to [facility] and treated with nitro and aspirin. The patient experienced some relief with nitro. EKG showed non specific st changes and trops were elevated. She was transferredto [facility] for management. Currently with the [...] clinical course Shahid Rayo MD Pager # [phone] 03/30/2014 21:10 Attestation statement::I have seen and [...] artery Procedure: She was brought to the [facility] Cardiac Catheterization Laboratory forthe [...] of Care - Robin Johnson - 03/31/2014 7687 EDT Problem: CIRCULATORY STATUS Goal: Patient Has [...] Care - Cuauhtemoc Berg RN - 03/31/2014 8302 EDT Problem: CIRCULATORY STATUS Goal: Patient Has Stable Vital Signs And Fluid Balance Outcome: Ongoing D: Patient arrived to [place] [address]. Vital signs noted, and tele applied. Patient [...] Referral Routine NSTEMI (non-ST elevated myocardial infarction) ([facility]) S/P coronary artery stent placement Ordered: 03/31/2014 AMB CONS/FOLLOW UP CARDIOLOGY Outpatient Referral Routine NSTEMI (non-ST elevated myocardial infarction) ([facility]) S/P coronary artery stent placement Ordered: 03/31/2014 [...] 9:34 EST) 09/26/2015 9:34 EST Scan 2 Investigative Analyst PROCEDURE/MINOR SHAYY GICAL ORDERABLES * ECG REPORT - SCANNED (04/06/2014 13:00 EDT) 04/06/2014 13:0 0 EDT Scan 2 Investigative Analyst PROCEDURE/MINOR SHAYY GICAL ORDERABLES * ECG REPORT - SCANNED (04/06/2014 13:00 EDT) 04/06/2014 13:0 0 EDT Scan 2 Investigative Analyst PROCEDURE/MINOR SHAYY GICAL ORDERABLES * INVASIVE CARDIOLOGY REPORT-SCANNED (04/06/2014 13:00 EDT) 04/06/2014 13:0 0 EDT Scan 2 Investigative Analyst PROCEDURE/MINOR SHAYY GICAL ORDERABLES * ECG REPORT - SCANNED (04/05/2014 7:12 EDT) 04/05/2014 7:12 EDT Scan 2 Investigative Analyst PROCEDURE/MINOR SHAYY GICAL ORDERABLES * ECG REPORT - SCANNED (04/04/2014 11:58 EDT) 04/04/2014 11:5 8 EDT Scan 2 Investigative Analyst PROCEDURE/MINOR SHAYY GICAL ORDERABLES * ECG REPORT - SCANNED (04/04/2014 11:56 EDT) 04/04/2014 11:5 6 EDT Scan 2 Investigative Analyst PROCEDURE/MINOR SHAYY GICAL ORDERABLES * (ABNORMAL) DIFFERENTIAL [...] PF4 ORD ERABLES [facility] [address] [place] [address] * HEMAGRAM (04/01/2014 5:50 EDT) WBC 11.20 4.0 - 12.4 K/cmm [facility] RBC 4.40 3.86 - 5.04 M/cmm [facility] Hemoglobin 12.6 11.6 - 15.2 gm/dl [facility] HCT 37.1 34.9 - 44.4 % [facility] MCV 84 81 - 98 fl [facility] MCH 28.7 26.7 - 33.3 pg [facility] MCHC 34.0 32.1 - 35.9 gm/dl [facility] PLT 218 141 - 320 K/cmm [facility] RDW-CV 14.3 11.7 - 14.6 % [facility] 04/01/2014 5:50 EDT 04/01/2014 6:36 EDT Shahid Rayo MD HEMATOLOGY & PF4 ORD ERABLES Performing Organization Address [facility] de Phone Number [facility] [address] [place] [address] * PTT (04/01/2014 5:50 EDT) PTT 27 26 - 37 secs [facility] Comment:Therapeutic Heparin range: 65-100 seconds Blood specimen (specimen) 04/01/2014 5:50 EDT 04/01/2014 6:36 EDT Shahid Rayo MD HEMATOLOGY & PF4 ORD ERABLES Performing Organization Address [facility] Phone Number [facility] [address] [place] [address] * CREATININE (04/01/2014 5:50 EDT) Creatinine 0.69 0.52 - 1.04 mg/dl [facility] GFR, Calculated >60 >60 ml/min/1.7 3m2 [facility] Blood specimen (specimen) 04/01/2014 5:50 EDT 04/01/2014 6:36 EDT Shahid Rayo MD CHEMISTRY & BLOOD GA S ORDERABLES Performing Organization Address [facility] de Phone Number [facility] [address] [place] [address] * BUN (04/01/2014 5:50 EDT) BUN 10 10 - 26 mg/dl [facility] Blood specimen (specimen) 04/01/2014 5:50 EDT 04/01/2014 6:36 EDT Shahid Rayo MD CHEMISTRY & BLOOD GA S ORDERABLES Performing Organization Address [facility] Co de Phone Number [facility] [address] [place] [address] * ELECTROLYTES (04/01/2014 5:50 EDT) Sodium 138 136 - 145 mEq/L [facility] Potassium 4.2 3.5 - 5.0 mEq/L [facility] Chloride 107 96 - 110 mEq/L [facility] CO2 24 24 - 32 mEq/L [facility] Blood specimen (specimen) 04/01/2014 5:50 EDT 04/01/2014 6:36 EDT Shahid Rayo MD CHEMISTRY & BLOOD GA S ORDERABLES Performing Organization Address [facility] Co de Phone Number [facility] [address] [place] [address] * CK MB WITH TOTAL CK (04/01/2014 5:50 EDT) CK 35 30 - 135 U/L [facility] MB 1.58 <2.95 ng/ml [facility] Blood specimen (specimen) 04/01/2014 5:50 EDT 04/01/2014 6:36 EDT Yesy Manuel NP CHEMISTRY & BLOOD GA S ORDERABLES Performing Organization Address [facility] Co de Phone Number [facility] [address] [place] [address] * CK MB WITH TOTAL CK (03/31/2014 22:14 EDT) CK 42 30 - 135 U/L [facility] MB 1.72 <2.95 ng/ml [facility] Blood specimen (specimen) 03/31/2014 22:14 EDT 03/31/2014 22:19 EDT Shahid Rayo MD CHEMISTRY & BLOOD GA S ORDERABLES Performing Organization Address City/[facility]/ZIP Co de Phone Number [facility] [address] [place] [address] * (ABNORMAL) TROPONIN I (03/31/2014 14:32 EDT) Troponin I (ng/mL) 0.136(H) <0.034 ng/ml [facility] Blood specimen (specimen) 03/31/2014 14:32 EDT 03/31/2014 15:09 EDT Shahid Rayo MD CHEMISTRY & BLOOD NE S ORDERABLES Performing Organization Address [facility] de Phone Number [facility] [address] [place] [address] * CK MB WITH TOTAL CK (03/31/2014 14:32 EDT) CK 62 30 - 135 U/L [facility] MB 2.04 <2.95 ng/ml [facility] Blood specimen (specimen) 03/31/2014 14:32 EDT 03/31/2014 15:09 EDT Shahid Rayo MD CHEMISTRY & BLOOD GA S ORDERABLES Performing Organization Address [facility] de Phone Number [facility] [address] [place] [address] * EKG 12-LEAD (03/31/2014 13:30 EDT) 03/31/2014 13:3 0 EDT Narrative [facility] EKG - 04/04/2014 7:56 EDT ?[facility] ? Test Date: ?2014-03-31 Pat Name: ? ISA RO ?Department: ?? [facility] ? Room: ? MW511 Gender: ? F ?Electrical Supervisor: ?? [id number] : ?1965 ? Requested By: YESY MANUEL MENTAL HEALTH CASE MANAGER Order Number: [id number] ? Reading MD: ?? BRYAN PURDY MD ? Measurements Intervals ?Clayton ? Rate: ? 50 ? P: ?57 MA: ? 154 ?QRS: ?29 QRSD: ? 90 [...] Date: 2014-03-31 Pat Name: ISA RO Department: [place] [address] Room: [facility] Gender: F Electrical Supervisor: [id number] : 1965 Requested By: YESY MANUEL NP Order Number: [id number] Reading MD: BRYAN PURDY MD Measurements Intervals Clayton Rate: 50 P: 57 MA: 154 QRS: 29 QRSD: 90 T: 38 [...] 5 EDT Narrative 03/31/2014 13:08 EDT Cardiology [address] [place] [address] Catheterization Laboratory Study Patient: Isa Ro ? Study Date: ?03/31/2014 ? Accession #: ? [id number] : ? 1965 Referring Physician: Dilip Mahajan [...] successfully achieved. SUMMARY: 1. HPI and indications: Frt-RO-qooktryu myocardial infarction. 2. LAD: Proximal vessel lesion: [...] 4. Continue aspirin, at 81mgPOdaily, indefinitely. HISTORY: Yzu-AU-scynhawj myocardial infarction. ??Functional status: ?? CCS class [...] radial artery access. A 5Fr/10 cm Terumo Ceresco Sheath Radial sheath was ?? advanced into [...] vessel lesion: There is a discrete, 85%de tiat stenosis. This lesion is eccentric. There is [...] MD 2014-03-31 13:08 Procedure Note 03/31/[address] [place] [id number] Catheterization Laboratory Study Patient: Isa Ro Study [...] successfully achieved. SUMMARY: 1. HPI and indications: Xmd-CV-skhjvlxp myocardial infarction. 2. LAD: Proximal vessel lesion: [...] Add tricagrelor (Brilinta), loading dose 180mgPO, standing [id number], for 12mon. 4. Continue aspirin, at 81mgPOdaily, indefinitely. HISTORY: Ute-AE-rtmduxqj myocardial infarction. Functional status: CCS class IV [...] radial artery access. A 5Fr/10 cm Terumo Ceresco Sheath Radialsheath was advanced into the vessel. [...] 2. Vessel setup was performed. A 180 [employer] wire was used to crossthe lesion. 3. [...] EDT *Interpreting Group:* *[facility]* [address] [place] [address] *STUDY CONCLUSIONS* Summary: ?? Left ventricle: The [...] ATTENDING ?Waqas Yao MD REFERRING ?Pretty Avery* RETAIL DEPARTMENT RESET ??Tracey Black PERFORMING ?? [facility], FELLOW ? Abiodun Velez ORDERING ? Joel Parker REFERRING ?Joel Parker j *PROCEDURE DATA* Procedure information: ??This study was interpreted by [facility] at [facility]. ??Study status: ??Routine. Transthoracic echocardiography. ??M-mode, complete 2D, complete spectral Doppler, and color Doppler. A Transthoracic Echocardiogram was performed. Scanning was performed from the parasternal, apical, subcostal, and suprasternal notch acoustic windows. Images were obtained using a Shubham IE33 3 cardiac ultrasound machine. Image quality was adequate. ??Study completion: ??The patient tolerated the procedure well. *INDICATIONS AND HISTORY* Indications: ?? NH - nontransmural - acute 410.71. *CARDIAC ANATOMY* [...] 03/31/2014 11:13 Procedure Note 03/31/2014 *Interpreting Group:* *[facility]* [address] [place] [address] *STUDY CONCLUSIONS* Summary: Left ventricle: The cavity [...] ATTENDING Waqas Yao MD REFERRING Pretty Avery* RETAIL DEPARTMENT RESET Tracey Black PERFORMING Fa, FELLOW Abiodun Velez ORDERING Joel Parker REFERRING Joel Parker j *PROCEDURE DATA* Procedure information: This study was interpreted by [facility] at [facility]. Study status: Routine.Transthoracic echocardiography. M-mode, complete 2D, complete spectral Doppler, andcolor Doppler. A Transthoracic Echocardiogram was performed. Scanning wasperformed from the parasternal, apical, subcostal, and suprasternal notch acoustic windows. Images were obtained using a Shubham IE33 3 cardiac ultrasoundmachine. Image quality was adequate. Study completion: The patient tolerated the procedure well. *INDICATIONS AND HISTORY* Indications: NH - nontransmural - acute 410.71. *CARDIAC ANATOMY* [...] ? Room: ? MW511 Gender: ? F ?Electrical Supervisor: ?? [id number] : ?1965 ? Requested By: WAQAS YAO MD Order Number: [id number] ? Reading MD: ?? LYDIA DALTON MD ? Measurements Intervals ?Clayton ? Rate: ? 59 ? P: ?58 MA: ? 154 ?QRS: ?41 QRSD: ? 88 [...] Date: 2014-03-31 Pat Name: ISA SHEPHERDISAI Department: [place] [address] Room: MW511 Gender: F Electrical Supervisor: [id number] : 1965 Requested By: WAQAS YAO MD Order Number: [id number] Reading MD: LYDIA DALTON MD Measurements Intervals Clayton Rate: 59 P: 58 MA: 154 QRS: 41 QRSD: 88 T: 43 [...] & PF4 ORD ERABLES Performing Organization Address City/[facility]/ZIP Co de Phone Number [facility] [address] [place] [address] * HEMAGRAM (03/31/2014 6:43 EDT) Pathologist [facility] WBC 8.21 4.0 - 12.4 K/cmm [facility] [...] & PF4 ORD ERABLES Performing Organization Address [facility] Co de Phone Number [facility] [address] [place] [address] * (ABNORMAL) PTT (03/31/2014 6:43 EDT) Pathologist [facility] PTT 51(H) 26 - 37 secs [facility] Comment:Therapeutic Heparin range: 65-100 seconds Blood specimen (specimen) 03/31/2014 6:43 EDT 03/31/2014 7:01 EDT Shahid Rayo MD HEMATOLOGY & PF4 ORD ERABLES Performing Organization Address [facility] de Phone Number [facility] [address] [place] [address] * CREATININE (03/31/2014 6:43 EDT) Pathologist [facility] Creatinine 0.70 0.52 - 1.04 mg/dl [facility] GFR, Calculated >60 >60 ml/min/1.7 3m2 [facility] Blood specimen (specimen) 03/31/2014 6:43 EDT 03/31/2014 7:01 EDT Shahid Rayo MD CHEMISTRY & BLOOD GA S ORDERABLES Performing Organization Address [facility] de Phone Number [facility] [address] [place] [address] * BUN (03/31/2014 6:43 EDT) BUN 15 10 - 26 mg/dl [facility] Blood specimen (specimen) 03/31/2014 6:43 EDT 03/31/2014 7:01 EDT Shahid Rayo MD CHEMISTRY & BLOOD GA S ORDERABLES Performing Organization Address [facility] Phone Number [facility] [address] [place] [address] * ELECTROLYTES (03/31/2014 6:43 EDT) Sodium 139 136 - 145 mEq/L [facility] Potassium 4.2 3.5 - 5.0 mEq/L [facility] Chloride 107 96 - 110 mEq/L [facility] CO2 24 24 - 32 mEq/L [facility] Blood specimen (specimen) 03/31/2014 6:43 EDT 03/31/2014 7:01 EDT Shahid Rayo MD CHEMISTRY & BLOOD GA S ORDERABLES Performing Organization Address [facility] Phone Number [facility] [address] [place] [address] * LIPID PROFILE (INCLUDES CHOLESTEROL, TRIGLYCERIDES, HDL, LDL) (03/31/2014 6:43 EDT) Cholesterol 152 mg/dl [facility] Comment: Desirable:<200 Borderline High:200-239 High:>ek=261 Triglycerides 100 mg/dl [facility] Comment: Normal:<150 Borderline High:150-199 High:200-499 Very High:>lt=286 HDL 50 mg/dl [facility] Comment: Low:<40 Normal:40-60 Desirable: >60 LDL, Calculated 82 mg/dl [facility] Comment: Optimal:<100 Near Optimal:100-129 Borderline High:130-159 High:160-189 Very High:>ef=203 Chol/HDL Ratio 3.0 [facility] Fasting? Unknown [facility] Non HDL Cholesterol 102 mg/dl [facility] Comment: Desirable:<130 Borderline:130-159 High: 160-189 Very High: >jp=126 Blood specimen (specimen) 03/31/2014 6:43 EDT 03/31/2014 7:01 EDT Shahid Rayo MD CHEMISTRY & BLOOD GA S ORDERABLES Performing Organization Address [facility] Co de Phone Number [facility] [address] [place] [address] * (ABNORMAL) TROPONIN I (03/31/2014 6:43 EDT) Troponin I (ng/mL) 0.180(H) <0.034 ng/ml [facility] Blood specimen (specimen) 03/31/2014 6:43 EDT 03/31/2014 7:01 EDT Shahid Rayo MD CHEMISTRY & BLOOD GA S ORDERABLES Performing Organization Address [facility] Co de Phone Number [facility] [address] [place] [address] * CK MB WITH TOTAL CK (03/31/2014 6:43 EDT) CK 55 30 - 135 U/L [facility] MB 2.51 <2.95 ng/ml [facility] Blood specimen (specimen) 03/31/2014 6:43 EDT 03/31/2014 7:01 EDT Shahid Rayo MD CHEMISTRY & BLOOD GA S ORDERABLES Performing Organization Address [facility] Co de Phone Number [facility] [address] [place] [address] * HEMOGLOBIN A1C (03/31/2014 6:43 EDT) Hemoglobin [...] BLOOD GA S ORDERABLES Performing Organization Address [facility] Co de Phone Number [facility] [address] [place] [address] * HEMAGRAM (03/30/2014 22:23 EDT) WBC 9.80 [...] HEMATOLOGY & PF4 ORDERABLES Performing Organization Address [facility] de Phone Number [facility] [address] [place] [address] * INPATIENT ADD-ON (03/30/2014 22:00 EDT) Pathologist [facility] Department Tests to be added HEMAGRAM [facility] Number for problems MW5 [facility] Accession number [id number] [facility] 03/30/2014 22:0 0 EDT 03/30/2014 22:10 EDT Shahid Rayo MD HEMATOLOGY & PF4 ORD ERABLES Performing Organization Address [facility] Co de Phone Number [facility] [address] [place] [address] * CK MB WITH TOTAL CK (03/30/2014 21:01 EDT) [facility] CK 59 30 - 135 U/L [facility] MB 2.26 <2.95 ng/ml [facility] Blood specimen (specimen) 03/30/2014 21:01 EDT 03/30/2014 21:10 EDT Shahid Rayo MD CHEMISTRY & BLOOD GA S ORDERABLES Performing Organization Address [facility] Co de Phone Number [facility] [address] [place] [address] * (ABNORMAL) TROPONIN I (03/30/2014 21:01 EDT) [facility] Troponin I (ng/mL) 0.179(H) <0.034 ng/ml [facility] Blood specimen (specimen) 03/30/2014 21:01 EDT 03/30/2014 21:10 EDT Shahid Rayo MD CHEMISTRY & BLOOD GA S ORDERABLES Performing Organization Address [facility] de Phone Number [facility] [address] [place] [address] * CREATININE (03/30/2014 21:01 EDT) [facility] Creatinine 0.74 0.52 - 1.04 mg/dl [facility] GFR, Calculated >60 >60 ml/min/1.7 3m2 [facility] Blood specimen (specimen) 03/30/2014 21:01 EDT 03/30/2014 21:10 EDT Shahid Rayo MD CHEMISTRY & BLOOD GA S ORDERABLES Performing Organization Address [facility] Phone Number [facility] [address] [place] [address] * BUN (03/30/2014 21:01 EDT) BUN 13 10 - 26 mg/dl [facility] Blood specimen (specimen) 03/30/2014 21:01 EDT 03/30/2014 21:10 EDT Shahid Rayo MD CHEMISTRY & BLOOD GA S ORDERABLES Performing Organization Address [facility] de Phone Number [facility] [address] [place] [address] * ELECTROLYTES (03/30/2014 21:01 EDT) Sodium 139 136 - 145 mEq/L [facility] Potassium 3.7 3.5 - 5.0 mEq/L [facility] Chloride 105 96 - 110 mEq/L [facility] CO2 24 24 - 32 mEq/L [facility] Blood specimen (specimen) 03/30/2014 21:01 EDT 03/30/2014 21:10 EDT Shahid Rayo MD CHEMISTRY & BLOOD GA S ORDERABLES Performing Organization Address [facility] de Phone Number [facility] [address] [place] [address] * PROTIME (03/30/2014 21:01 EDT) Pro Time [...] PF4 ORD ERABLES [facility] [address] [place] [address] * (ABNORMAL) PTT (03/30/2014 21:01 EDT) PTT 130(HH) 26 - 37 secs [facility] Comment:Therapeutic Heparin range: 65-100 seconds Blood specimen (specimen) 03/30/2014 21:01 EDT 03/30/2014 21:10 EDT Shahid Rayo MD HEMATOLOGY & PF4 ORD ERABLES Performing Organization Address City/[facility] Co de Phone Number [facility] [address] [place] [address] documented in this encounter Visit Diagnoses Diagnosis NSTEMI (non-ST elevated myocardial infarction) ([facility] Primary Acute myocardial infarction, subendocardial infarction, episode of care unspecified NSTEMI (non-ST elevated myocardial infarction) ([facility]) Acute myocardial infarction, subendocardial infarction, episode [...] 03/14 documented in this encounter Care Teams Resistance Brazer Relationship Specialty Start Date End Date Pretty Avery MD [address] [place] [address] PCP - General 06/05/10 documented as of this encounter
--- OUTSIDE RECORDS SUMMARY | 2024-04-13 10:35 | XMS_ITS | Encounter Summary ---
Author Organization [facility] Address [address] [place] [address] Care Team Providers Care Nurse [facility]al [facility] Name Role Phone Unavailable Primary Care Provider Unavailabl e Encounter Details Date Type Department Care Team (Late st Contact Info) Description 12/14/2006 Results Only [facility] [address] [place] [address] Jake Sabillon FNP [address] [place], [place] [address] Social History Tobacco Use Types Packs/Day Years [...] ? EZEQUIEL THOMAS ? Accession #: ? [id number] : ? 1965 (Age: 41) ??F ?Collect Date: ? 12/14/2006 Location: ? [facility] ? Receive Date: ? 12/16/2006 Provider: ?JAKE SABILLON OUTSOLE ROUNDER Copy to: ? Specimen/Source: ?ThinPrep Pap Test, Cervix/Endocervix, processed on [employer] ThinPrep Imaging System, with manual evaluation Last [...] Jake GARCÍAP PATHOLOGY ORDERABLES [facility] [address] [place] [address] documented in this encounter Visit Diagnoses Not on filedocumented in this encounter
--- OUTSIDE RECORDS SUMMARY | 2024-04-13 10:35 | XMS_ITS | Encounter Summary ---
Author Organization [facility] Address [address] [place] [address] Care Team Providers Care Ceramic Plater Name Role Phone Pretty Avery MD Primary Care Provider [phone] Encounter Details Date Type Department Care Team (Latest Contact Info) Description 03/30/2014 10:20 EDT - 03/30/2014 20:09 EDT Hospital Encounter [facility] [address] [place] [address] Unknown, Provider, Discharge Disposition: Home or Self [...] Code Departure Means Destination Home or Self [facility] documented in this encounter Plan of Treatment Not on file documented as of this encounter Visit Diagnoses Not on filedocumented in this encounter Care Teams Ceramic Plater Relationship Specialty Start Date End Date Pretty Avery MD [address] [place] [address] PCP - General 06/05/10 documented as of this encounter
--- OUTSIDE RECORDS SUMMARY | 2024-04-13 10:35 | XMS_ITS | Encounter Summary ---
Author Organization [facility] Address [facility] [place] [address] Care Team Providers Care Lease Out Man Name Role Phone None Primary Care Provider Unavailabl e Reason for Referral * Consultation (Routine) - Authorized Specialty Diagnoses / Procedures Referred By Contac t Referred To Contact Cardiology Diagnoses ST elevation myocardial infarction involving left anterior descending (LAD) coronary artery Kathryn Walker MD [facility] [place] [address] [facility] [address] [place] [address] Referral ID Status Reason Start Date Expiration Date Visits Requested Visits Authorized [id number] Authorized Consult, Test & Treat 03/22/2024 09/18/2024 1 1 * Consultation (Routine) - Authorized Specialty Diagnoses / Procedures Referred By Contac t Referred To Contact Cardiology Diagnoses ST elevation myocardial infarction involving left anterior descending (LAD) coronary artery Horace Hancock MD [facility] [place] [address] Cardiac Rehab, [address] [place] [address] Referral ID Status Reason Start Date Expiration Date Visits Requested Visits Authorized [id number] Authorized Consult, Test & Treat 03/22/2024 09/18/2024 36 36 Reason for Visit * Auth/Cert (Routine) Specialty Diagnoses / Procedures Referred By Contac t Referred To Contact Diagnoses Acute ST elevation myocardial infarction (STEMI) due to occlusion of left anterior descending (LAD) coronary artery stemi Procedures EMERGENCY IPI Destin Ambrosio MD [facility] [place] [address] [facility] Referral ID Status Reason Start Date Expiration Date Visits Re quested Visits Authorized [id number] 1 1 Encounter Details Date Type Department Care Team (Latest Contact Info) Description 03/19/2024 12:37 AM EDT - 03/22/2024 12:10 PM EDT Hospital Encounter Heart and Vascular Unit Level 4 Wing A at [place] [phone] Destin Ambrosio MD [facility] [place] [address] Horace Hancock MD [facility] [place] [address] Kathryn Walker MD [facility] [place] [address] ST elevation myocardial infarction involving left anterior descending (LAD) coronary artery; Chest pain, unspecified type Discharge Disposition: Home Social History Tobacco Use Types Packs/Day Years Used Date Smoking Tobacco: Former Smokeless Tobacco: Never Alcohol Use Standard Drinks/Week Comments Yes 14 (1 standard drink = 0.6 oz pu re alcohol) [facility] Utilities Answer Date Recorded In the past 12 months has [facility] [employer], gas, oil, or water [employer] threatened to shut off services in your [...] in the past 12 m [facility], were you homeless or living in [...] Isa Ro Patient Age: 59 y.o. Language: Sammarinese Race: White Ethnicity: Not nor Admit date: 03/19/2024 Discharge date and time: 03/22/24 Attending Physician: Kathryn Walkre MD Discharge Physician: Kathryn Walker MD Brief Hospital Course Summary: Isa Ro is a 59 y.o. female with history of coronary disease s/p PCI to LAD in 2013 who presents with anterolateral STEMI with occluded prox-LAD. Elevated EDP (31) in this context is not unexpected but does seem to have resulted in acute mixed hypoxemic and hypercapnic respiratory failure in the laboratory analyst, potentially also due to sedation. Patient briefly [...] given mildly reduced LVEF [ ] f/u [facility] cardiology scheduled. [facility] cardiology referral sent Inpatient Provider Contact Information: Kathryn Walker MD [phone] For questions regarding this document or issues relating to this hospitalization on the Medical Service, please contact your inpatient physician through the [facility] Chief Warden . Issues afterhours and on weekends will [...] 03/19/2024 8:37 AM) Result Value WORKSTATION ID [id number] Narrative EXAMINATION: XR CHEST ONE VIEW CLINICAL [...] who have questions please contact the health customer care professional that requested your imaging first. Cardiac Catheterization (Exam End: 03/19/2024 1:36 AM) Narrative [facility] Cardiac Catheterization/Intervention Report Patient Name: Isa Ro Procedure Date: 03/19/2024 A #: [id number] Primary Physician: Ramo Roy Case #: [id number] File Name: [id number] Catheterization Order Number: [id number] [facility] Director Game [facility] Final Report [place], [place] Patient Name: Isa Ro ID#: [id number] : 1965 Procedure Date: March 19, 2024 [...] was designated as ASA Class IV. The [facility] clinical frailty scale is 3: Managing Well. Diagnostic Tests: Prior Coronary Angiography: Prior coronary angiography was performed on 12/15/2014. Electrocardiography: EKG was assessed by ECG. EKG was Abnormal. EKG showed ST Deviation >= 0.5 mm and other abnormality. Medications Prior to Procedure: Aspirin. Indications for Diagnostic Cath: The priority of the diagnostic procedure was Emergent. The indication for the laboratory analyst visit is ACS less than or [...] 3.5 guiding catheter and a 3.5 Fr [facility] 20 Mhz using auto 1 mm/sec pullback. [...] priority for the procedure was Emergent. The [facility] indication for the procedure was STEMI-Immediate PCI [...] A premounted 3.00 x 08 mm [place]to [place] (JAHAIRA) was deployed with a maximum inflation pressure of 12 atmospheres. Another stent insertion was accomplished through a 6 Fr. EBU 3.5 guide. A premounted 2.00 x 08 mm [place] (JAHAIRA) was deployed. The final outcome was [...] administered prior to arrival in the laboratory analyst. Recommended anti-platelet/anti-thrombotic regimen: Start aspirin 81 mg daily now and continue for indefinitely. Start clopidogrel 75 mg daily now and continue for 12 months then stop. These recommendations are made at the time of the intervention. Patient and provider preferences or a changing clinical situation may require modification of this regimen. Consult [facility] Interventional Cardiology for questions. The 1 [...] against any medical treatment. Consult http://tools.acc.org/DAPTriskapp/#!/content/calculator/ or [facility] Interventional Cardiology for questions Conclusions: * [...] decreased and new wall motion abnormalities. Procedure Complete-40361. Image enhancement Definity was used for left [...] LAD in 03/2014, HLD, who presented to [facility] with chest pain. She developed chest pain around 2100 on 03/18 which prompted her to call EMS. She was given 325mg of aspirin and nitroglycerin. On arrival to [facility], she was found to have an EKG suggestive of anterior STEMI for which she was given half dose TNKfor systemic lysis prior to speaking with Dr. Herrera, on-call automotive production worker at [facility]. She was subsequently transferred directly to the [facility] laboratory analyst where coronary angiography revealed a 100% occluded [...] away. Stay on the phone. The emergency hoop rolls operator will tell you what to do. [...] of 8AM-5PM please call the Cardiology Clinic [phone] to speak with a nurse. All other hours please call the Hospital Chief Warden [phone] and ask to speak to the cardiovascular hospitalist on-call. Return to work: One week Follow up Appointments: Doctor Where Phone # Date Time PCP MELECIO Polanco [address] [place], [place] [address] 04/04/24 7:55 AM Personnel Scheduler Herlinda Weaver PA-C [facility] Cardiology Clinic [phone] 05/09/24 10:40 AM (pleasearrive by 10:20 AM) *A referral has also been placed to [facility] cardiology, though you will need to follow-up with them regarding scheduling appointments at [phone] General Instructions None Future Appointments and Orders Future Appointments and Orders Future Appointments Provider Department Dept Phone 05/09/2024 10:40 AM Herlinda Weaver PA Cardiology at [facility] Arrive at: Dehydrogenation Converter Operator Area [phone] Future Orders Complete By Expires Referral to Cardiac Rehab [JCA116 Custom] As directed Process Instructions: If no progress note charted, please enter Clinical details in comments. Scheduling Instructions: Questions: My question or request is: s/p STEMI- cardiac rehab at [facility] Referral to Cardiology [REF12 Custom] As directed Process Instructions: If no progress note charted, please enter Clinical details in comments. Scheduling Instructions: Questions: My question or request is: s/p STEMI Discharge References/Attachments None Greater than 30 minutes was spent on this discharge including documentation, [id number] time withthe patient, patient education, operating room orderly, coordination with pharmacy and other patient [...] away. Stay on the phone. The emergency hoop rolls operator will tell you what to do. [...] cardiac rehab has also been placed to [facility]. Call your doctor if: Chest pain, dyspnea, pain or swelling in legs occurs, or for weight gain of 2 pounds overnight or 5pounds in 5 days. If you have non-emergent questions, prior to your follow-up visit call: Thursday-Thursday between the hours of 8AM-5PM please call the Cardiology Clinic [phone] to speak with a nurse. All other hours please call the Hospital Chief Warden [phone] and ask to speak to the cardiovascular hospitalist on-call. Return to work: One week Follow up Appointments: Doctor Where Phone # Date Time PCP MELECIO Polanco [address] [place], [place] [address] 04/04/24 7:55 AM Personnel Scheduler Herlinda Weaver PA-C [facility] Cardiology 4A Clinic [phone] 05/09/24 10:40 AM (pleasearrive by 10:20 AM) *A referral has also been placed to [facility] cardiology, though you will need to follow-up with them regarding scheduling appointments at [phone] documented in this encounter Medications at Time [...] agreed to participate in cardiac rehab at [facility] following discharge Review of Systems: Review of [...] have resulted in hypoxemia in the laboratory analyst. She was also a bit hypercapnic which [...] pt re: Losartan/GDMT consideration -Cardiac Rehab at [facility] following discharge -Telemonitoring x72 hours -Plan for discharge tomorrow -Cardiology appointment scheduled 05/09/2024 at 10:40 AM t [facility] #Significant HLD -LDL 324 -Atorvastatin 80mg [...] have resulted in hypoxemia in the laboratory analyst. 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 I asked [...] Mcbride MD - 03/19/2024 2:50 AM EDT [facility] TeleICU Initial Assessment Note I established audio/visual communication with the patient's room, reviewed the eDH. History and Assessment: 59 yo F transferred from [facility] for a STEMI alert. Received ASA [...] => BiPAP started Following procedure, transferred to [facility] - able to be weaned [...] 10:00 PM Hospital to which patient presented: [facility] If Hospital to which patient presented= [facility]: ED via EMS Date and Time [...] Not contraindicated Plan STEMI Alert called: Yes Director Game Activated by: Spot Washer Initial Disposition: Admit Director Game documented in this encounter H&P Notes * [...] to LAD in 03/2014, HLD,who presented to [facility] with chest pain. She developed chest pain around 2100 on 03/18 which prompted her to call EMS. She was given 325mg of aspirin and nitroglycerin. On arrival to [facility], she was found to have an EKG suggestive of anterior STEMI for which she was given half dose TNK for systemic lysis prior to speaking with Dr. Herrera, on-call automotive production worker at [facility]. She was subsequently transferred directly to the [facility] laboratory analyst where coronary angiography revealed a 100% occluded [...] have resulted in hypoxemia in the laboratory analyst. She was also a bit hypercapnic which [...] Cardiopulmonary Resuscitation - Inpatient Ganesh Nguyen MD Spot Washer [id number] documented in this encounter Miscellaneous Notes [...] Care: Contact information for follow-up Cardiac Rehab, [facility] [address] [facility] [address] Cardiology, [facility] [address] [facility] [address] Transportation: family or friend will provide Functional [...] 03/21/2024 4:02 PM EDT Patient completed a [place] advance directive. Patient identified her sister Stacia [...] N/A ; Prescription Coverage: Yes Preferred Pharmacy: [place], [place] - [address] [place] [address] [address] [place] [address] [address] [facility] [address] [id number] - [address] SEC OF [address] [facility] [place] [address] [facility] - [facility], [place] - [address] [facility] [address] [facility] [address] Advance Care Planning: Attempt Cardiopulmonary Resuscitation - Inpatient <no information> -Advanced Directive: No, need to discuss (RS referral sent for AD discussion) Current Functional Ability: Assistive Person Functional Status Prior to Admission: Independent Home Environment: Others in the home: child(lucian), minor (lives with her 15yo son). Current Living Arrangements: home/apartment/condo. Accessibility Concerns:house with 3 floors and 2 [address]. Current DME: none [address] [facility] [id number] Social & Family Supports: All names listed below confirmed with patient as current and correct Extended Emergency Contact Information Primary Emergency Contact: Tiffany Ro, [facility] Mobile Relation: Mother Current Care [...] RS for AD discussion today. Registered Nurse Fast Food Restaurant Manager / Insulation Applicator will continue to follow patient???s progress and [...] in an outpatient cardiac rehabilitation program at [facility] was discussed. Patient agrees to a referral [...] Operative Note Patient Name: Isa Ro : [id number] MR#: [id number] Case Date: 03/19/2024 Surgeon: Surgeons and Role: [...] 10:40 AM EDT Office Visit Cardiology at [address] [address] Herlinda Weaver PA [facility] [place] [address] Scheduled Referrals Name Type Priority Associated Diagnoses [...] (ANC) 8.34(H) 1.70 - 6.10 x10(3)/ L [facility] Lymphocytes % 17.4 % [facility] Lymphocytes Abs 2.0 0.9 - 3.2 x10(3)/[facility] Monocytes % 8.2 % [facility] Monocyte Abs 1.0(H) 0.3 - 0.9 x10(3)/[facility] Eosinophils % 2.2 % [facility] Eosinophils Abs 0.3 0.0 - 0.4 x10(3)/[facility] Basophils % 0.3 % [facility] Basophils Abs 0.0 0.0 - 0.1 x10(3)/[facility] Immature Gran % 0.30 % [facility] Comment: Immature granulocytes(IG's)percentage and absolute count will include metamyelocytes, myelocytes, and promyelocytes. Blood smears from CBCs yielding IG's will be scanned manually for concordance. If this scan disagrees with the automated IG or if promyelocytes are noted, a manual differential will be performed. Lesia Gran Abs 0.03 0.00 - 0.04 x10(3)/ L [facility] Blood 03/22/2024 5:06 AM EDT 03/22/2024 5:12 AM EDT Narrative Resulting Agency Comment Spec In Lab Horace Hancock MD HEMATOLOGY ORDERABLE S [facility] [place] [address] * (ABNORMAL) Hemogram (03/22/2024 5:06 AM EDT) Pathologist [facility] WBC 11.6(H) 4.0 - 9.5 x10(3)/[facility] RBC 4.80 4.00 - 5.21 x10(6)/[facility] Hemoglobin 13.5 11.7 - 15.5 g/dL [facility] Hematocrit 40.3 35.7 - 45.8 % [facility] MCV 84.0 82.6 - 94.4 [facility] MCH 28.1 27.1 - 32.0 pg [facility] MCHC 33.5 31.7 - 35.0 g/dL [facility] Platelets 232 145 - 357 x10(3)/[facility] LABOR[facility] RDWSD 42.2 37.0 - 46.0 [facility] RDWCV 13.5 11.5 - 14.1 % [facility] MPV 9.7 7.6 - 12.9 [facility] nRBC % Auto 0.0 % [facility] nRBC Abs Auto 0.000 0.000 - 0.000 x10(3)/[facility] Blood 03/22/2024 5:06 AM EDT 03/22/2024 5:12 AM EDT Narrative Resulting Agency Comment Spec In Lab Horace Hancock MD HEMATOLOGY ORDERABLE S [facility] [place] [address] * Basic Metabolic Panel (non-fasting) (03/22/2024 5:06 AM EDT) Pathologist [facility] Glucose Lvl 107 65 - 199 mg/dL [facility] Comment:Diabetes: >=200 mg/d L plus symptoms BUN 18 8 - 18 mg/dL [facility] Creatinine 0.87 0.70 - 1.20 mg/dL [facility] Sodium 138 135 - 145 mmol/L [facility] Potassium 4.1 3.5 - 5.0 mmol/L [facility] Comment: Please note: ??Patients with WBC >100,000 may have falsely elevated Potassium levels. ??For accurate Potassium quantification in these patients send serum separator tube (gold top) for subsequent determinations. ??Contact the Clinical Chemistry Laboratory if there are any questions. Chloride 104 98 - 107 mmol/L [facility] CO2 24 22 - 31 mmol/L [facility] Anion Gap 10 5 - 15 mmol/L [facility] Calcium 9.2 8.5 - 10.5 mg/dL [facility] Estimated GFR 76 >=60 mL/min/1. 73 m?? [facility] Comment: This patient's estimated [...] In Lab Horace Hancock MD CHEMISTRY ORDERABLES [facility] [place] [address] * Magnesium (03/22/2024 5:06 AM EDT) Magnesium 0.90 0.69 - 1.07 mmol/L [facility] Blood 03/22/2024 5:06 AM EDT 03/22/2024 5:12 AM EDT Narrative Resulting Agency Comment Spec In Lab Destin Ambrosio MD CHEMISTRY ORDERABLES Performing Organization Address City/[facility]/ZIP [place] [address] * (ABNORMAL) Differential, Automated (03/21/2024 2:57 AM EDT) Neutrophils % 63.0 % [facility] Neutr Abs (ANC) 6.70(H) 1.70 - 6.10 x10(3)/ L [facility] Lymphocytes % 24.9 % [facility] Lymphocytes Abs 2.6 0.9 - 3.2 x10(3)/[facility] Monocytes % 8.7 % [facility] Monocyte Abs 0.9 0.3 - 0.9 x10(3)/[facility]OR[facility] Eosinophils % 2.8 % [facility] Eosinophils Abs 0.3 0.0 - 0.4 x10(3)/[facility] Basophils % 0.3 % [facility] Basophils Abs 0.0 0.0 - 0.1 x10(3)/[facility] Immature Gran % 0.30 % [facility] Comment: Immature granulocytes(IG's)percentage and absolute count will include metamyelocytes, myelocytes, and promyelocytes. Blood smears from CBCs yielding IG's will be scanned manually for concordance. If this scan disagrees with the automated IG or if promyelocytes are noted, a manual differential will be performed. Lesia Gran Abs 0.03 0.00 - 0.04 x10(3)/[facility] Blood 03/21/2024 2:57 AM EDT 03/21/2024 3:03 AM EDT Narrative Resulting Agency Comment Spec In Lab Horace Hancock MD HEMATOLOGY ORDERABLE S Performing Organization Address City/[facility]/ZIP Co de Phone Number [facility] [place] [address] * (ABNORMAL) Hemogram (03/21/2024 2:57 AM EDT) WBC 10.6(H) 4.0 - 9.5 x10(3)/[facility] RBC 4.54 4.00 - 5.21 x10(6)/[facility] Hemoglobin 12.8 11.7 - 15.5 g/dL [facility] Hematocrit 38.2 35.7 - 45.8 % [facility] MCV 84.1 82.6 - 94.4 [facility] MCH 28.2 27.1 - 32.0 pg [facility] MCHC 33.5 31.7 - 35.0 g/dL [facility] Platelets 242 145 - 357 x10(3)/[facility] RDWSD 42.4 37.0 - 46.0 [facility] RDWCV 13.7 11.5 - 14.1 % [facility] MPV 9.5 7.6 - 12.9 [facility] nRBC % Auto 0.0 % [facility] nRBC Abs Auto 0.000 0.000 - 0.000 x10(3)/[facility] Blood 03/21/2024 2:57 AM EDT 03/21/2024 3:03 AM EDT Narrative Resulting Agency Comment Spec In Lab Horace Hancock MD HEMATOLOGY ORDERABLE S [facility] [address] [place] [address] * Basic Metabolic Panel (non-fasting) (03/21/2024 2:57 AM EDT) Glucose Lvl 98 65 - 199 mg/dL [facility] Comment:Diabetes: >=200 mg/d L plus symptoms BUN 15 8 - 18 mg/dL [facility] Creatinine 0.82 0.70 - 1.20 mg/dL [facility] Sodium 144 135 - 145 mmol/L [facility] Potassium 4.2 3.5 - 5.0 mmol/L [facility] Comment: Please note: ??Patients with WBC >100,000 may have falsely elevated Potassium levels. ??For accurate Potassium quantification in these patients send serum separator tube (gold top) for subsequent determinations. ??Contact the Clinical Chemistry Laboratory if there are any questions. Chloride 107 98 - 107 mmol/L [facility] CO2 25 22 - 31 mmol/L [facility] Anion Gap 12 5 - 15 mmol/L [facility] Calcium 9.2 8.5 - 10.5 mg/dL [facility] Estimated GFR 82 >=60 mL/min/1. 73 m?? [facility] Comment: This patient's estimated [...] In Lab Horace Hancock MD CHEMISTRY ORDERABLES [facility] [place] [address] * Magnesium (03/21/2024 2:57 AM EDT) Magnesium 0.91 0.69 - 1.07 mmol/L [facility] Blood 03/21/2024 2:57 AM EDT 03/21/2024 3:03 AM EDT Narrative Resulting Agency Comment Spec In Lab Destin Ambrosio MD CHEMISTRY ORDERABLES Performing Organization Address [facility] Co de Phone Number [facility] [place] [address] * Metanephrines, Fractionated Free, plasma (03/21/2024 2:57 AM EDT) Normetane Free 0.47 <0.90 nmol/L [facility] Comment: Test Performed by: [facility] [place] [address] Director Business Development: Chasity Hernandez Ph.D.; CLIA# [id number] Metanephr Free <0.20 <0.50 nmol/L [facility] Comment: ADDITIONAL INFORMATION This test was developed and its performance characteristics determined by [facility] in a manner consistent with CLIA requirements. This test has not been cleared or approved by the U.S. Food and Drug Administration. Test Performed by: [facility] [place] [address] Director Business Development: Chasity Hernandez Ph.D.; CLIA# [id number] Blood 03/21/2024 2:57 AM EDT 03/21/2024 11:29 AM EDT Narrative Resulting Agency Comment Spec In Lab Horace Hancock MD CHEMISTRY ORDERABLES Performing Organization Address City/[facility]/ZIP Co de Phone Number [facility] [place] [address] * Iron and TIBC (03/20/2024 10:38 AM EDT) Iron 57 30 - 150 mcg/dL [facility] TIBC 278 250 - 450 mcg/dL [facility] Iron Saturation 21 20 - 50 % [facility] Blood Venous Draw / Unknown 03/20/2024 10:38 AM EDT 03/20/2024 10:52 AM EDT Narrative Resulting Agency Comment Spec In Lab Horace Hancock MD CHEMISTRY ORDERABLES [facility] [place] [address] * (ABNORMAL) Differential, Automated (03/20/2024 10:38 AM EDT) Neutrophils % 73.1 % [facility] Neutr Abs (ANC) 9.60(H) 1.70 - 6.10 x10(3)/[facility] LABOR[facility] Lymphocytes % 17.3 % [facility] Lymphocytes Abs 2.3 0.9 - 3.2 x10(3)/[facility] Monocytes % 7.5 % [facility] Monocyte Abs 1.0(H) 0.3 - 0.9 x10(3)/[facility]OR[facility]ORY Eosinophils % 1.5 % [facility] Eosinophils Abs 0.2 0.0 - 0.4 x10(3)/[facility]OR[facility]ORY Basophils % 0.3 % [facility] Basophils Abs 0.0 0.0 - 0.1 x10(3)/[facility] LABOR[facility] Immature Gran % 0.30 % [facility] Comment: Immature granulocytes(IG's)percentage and absolute count will include metamyelocytes, myelocytes, and promyelocytes. Blood smears from CBCs yielding IG's will be scanned manually for concordance. If this scan disagrees with the automated IG or if promyelocytes are noted, a manual differential will be performed. Lesia Gran Abs 0.04 0.00 - 0.04 x10(3)/[facility] LABORATORY Blood 03/20/2024 10:3 8 AM EDT 03/20/2024 10:47 AM EDT Narrative Resulting Agency Comment Spec In Lab Horace Hancock MD HEMATOLOGY ORDERABLE S [facility] [place] [address] * (ABNORMAL) Hemogram (03/20/2024 10:38 AM EDT) WBC 13.2(H) 4.0 - 9.5 x10(3)/[facility] LABORATORY RBC 4.66 4.00 - 5.21 x10(6)/[facility] LABORATORY Hemoglobin 13.0 11.7 - 15.5 g/dL [facility] Hematocrit 38.7 35.7 - 45.8 % [facility] MCV 83.0 82.6 - 94.4 [facility]ORY MCH 27.9 27.1 - 32.0 pg [facility] MCHC 33.6 31.7 - 35.0 g/dL [facility] Platelets 238 145 - 357 x10(3)/[facility] LABORATORY RDWSD 41.7 37.0 - 46.0 [facility]ORY RDWCV 13.8 11.5 - 14.1 % [facility] MPV 9.8 7.6 - 12.9 [facility] LAB[facility]ATORY nRBC % Auto 0.0 % [facility] nRBC Abs Auto 0.000 0.000 - 0.000 x10(3)/[facility] LABOR[facility]ORY Blood 03/20/2024 10:3 8 AM EDT 03/20/2024 10:47 AM EDT Narrative Resulting Agency Comment Spec In Lab Horace Hancock MD HEMATOLOGY ORDERABLE S [facility] [place] [address] * Magnesium (03/20/2024 10:38 AM EDT) Magnesium 0.88 0.69 - 1.07 mmol/L [facility] Blood 03/20/2024 10:3 8 AM EDT 03/20/2024 10:47 AM EDT Narrative Resulting Agency Comment Spec In Lab Horace Hancock MD CHEMISTRY ORDERABLES [facility] [place] [address] * Basic Metabolic Panel (non-fasting) (03/20/2024 10:38 AM EDT) Glucose Lvl 108 65 - 199 mg/dL [facility] Comment:Diabetes: >=200 mg/d L plus symptoms BUN 11 8 - 18 mg/dL [facility] Creatinine 0.82 0.70 - 1.20 mg/dL [facility] Sodium 137 135 - 145 mmol/L [facility] Potassium 4.3 3.5 - 5.0 mmol/L [facility] Comment: Please note: ??Patients with WBC >100,000 may have falsely elevated Potassium levels. ??For accurate Potassium quantification in these patients send serum separator tube (gold top) for subsequent determinations. ??Contact the Clinical Chemistry Laboratory if there are any questions. Chloride 101 98 - 107 mmol/L [facility] CO2 22 22 - 31 mmol/L [facility] Anion Gap 14 5 - 15 mmol/L [facility] Calcium 9.0 8.5 - 10.5 mg/dL [facility] Estimated GFR 82 >=60 mL/min/1. 73 m?? [facility] Comment: This patient's estimated [...] Hancock MD CHEMISTRY ORDERABLES Performing Organization Address City/[facility]/ZIP Co de Phone Number [facility] [place] [address] * Magnesium (03/19/2024 11:01 PM EDT) Magnesium 0.96 0.69 - 1.07 mmol/L [facility] Blood Venous Draw / Unknown 03/19/2024 11:01 PM EDT 03/19/2024 11:06 PM EDT Narrative Resulting Agency Comment Spec In Lab Horace Hancock MD CHEMISTRY ORDERABLES Performing Organization Address City/[facility] Co de Phone Number [facility] [place] [address] * (ABNORMAL) Troponin (03/19/2024 11:01 PM EDT) Troponin-T HS 2,406(H) <=14 ng/L [facility] Comment: [...] troponin value can be found in the [facility] Test Catalog Troponin - [facility] Test Catalog Reference: Fourth Simpson Definition of Myocardial Infarction. Journal of the [place] [employer] 2018;72:0693-5760 Blood 03/19/2024 11:0 1 PM EDT 03/19/2024 11:05 PM EDT Narrative Resulting Agency Comment Spec In Lab Franky Mead MD CHEMISTRY ORDERABLE S [facility] [place] [address] * (ABNORMAL) Troponin (03/19/2024 8:40 PM EDT) Troponin-T HS 2,586(H) <=14 ng/L [facility] Comment: [...] troponin value can be found in the [facility] Test Catalog Troponin - [facility] Test Catalog Reference: Fourth Simpson Definition of Myocardial Infarction. Journal of the [place] [employer] 2018;72:1748-1119 Blood 03/19/2024 8:40 PM EDT 03/19/2024 8:45 PM EDT Narrative Resulting Agency Comment Spec In Lab Ganesh Nguyen MD CHEMISTRY ORDERAB LES Performing Organization Address City/[facility]/ZIP Co de Phone Number [facility] [place] [address] * EKG 12 Lead (03/19/2024 8:32 PM EDT) Ventricular rate 70 BPM MUSE SYSTEM Atrial Rate 70 BPM MUSE SYSTEM P-R Interval 158 ms MUSE SYSTEM QRS Duration 78 ms MUSE SYSTEM Q-T Interval 470 ms MUSE SYSTEM QTC Calculated (Bezet) 507 ms MUSE SYSTEM Calculated P [place] 62 degrees MUSE SYSTEM Calculated R [place] 42 degrees MUSE SYSTEM Calculated T [place] -158 degrees MUSE SYSTEM INTERPRETATION Normal sinus rhythm Poor R wave progression T wave abnormality, consider lateral ischemia Prolonged QT Abnormal ECG When compared with ECG of 19-MAR-2024 17:27, No significant change was found Confirmed by MD Ambrosio David ([id number]) on 03/23/2024 8:10:58 AM MUSE SYSTEM 03/19/2024 8:32 PM EDT 03/23/2024 8:10 AM EDT Franky Mead MD ECG ORDERABLES Performing Organization Address City/[facility]/ZIP Co de Phone Number MUSE SYSTEM * EKG 12 Lead (03/19/2024 5:27 PM EDT) Ventricular rate 70 BPM MUSE SYSTEM Atrial Rate 70 BPM MUSE SYSTEM P-R Interval 154 ms MUSE SYSTEM QRS Duration 80 ms MUSE SYSTEM Q-T Interval 460 ms MUSE SYSTEM QTC Calculated (Bezet) 496 ms MUSE SYSTEM Calculated P [place] 80 degrees MUSE SYSTEM Calculated R [place] 87 degrees MUSE SYSTEM Calculated T [place] -96 degrees MUSE SYSTEM INTERPRETATION Normal sinus rhythm T wave abnormality, consider lateral ischemia Prolonged QT Abnormal ECG When compared with ECG of 19-MAR-2024 02:23, Non-specific change in ST segment in Anterior leads T wave inversion more evident in Inferior leads T wave inversion now evident in Anterolateral leads Confirmed by MD Ambrosio David ([id number]) on 03/23/2024 8:10:45 AM MUSE SYSTEM 03/19/2024 5:27 PM EDT 03/23/2024 8:10 AM EDT Unknown ECG ORDERABLES MUSE SYSTEM * (ABNORMAL) Troponin (03/19/2024 2:45 PM EDT) Troponin-T HS 3,792(H) <=14 ng/L [facility] Comment: [...] troponin value can be found in the [facility] Test Catalog Troponin - [facility] Test Catalog Reference: Fourth Simpson Definition of Myocardial Infarction. Journal of the [place] [employer] 2018;72:2235-3992 Blood 03/19/2024 2:45 PM EDT 03/19/2024 2:54 PM EDT Narrative Resulting Agency Comment Spec In Lab Horace Hancock MD CHEMISTRY ORDERABLES [facility] [place] [address] * ECHO COMPLETE W CONTRAST (03/19/2024 10:53 AM EDT) Anatomical Region Laterality Modality Cardiac Other 03/19/2024 9:03 AM EDT Narrative 03/19/2024 12:12 PM EDT [address] [place] [address] ? Echocardiogram Report Name: ISA RO ?Study Date: 03/19/2024 09:03 AMBP: 129/68 mmHg ? Patient Location: 4A : 1965 ? Height: 158 cm ? Account: [id number] Age: 59 yrs ? Weight: 57 kg [...] decreased and new wall motion abnormalities. Procedure Complete-51827. Image enhancement Definity was used for left [...] Note Destin Ambrosio MD - 03/19/2024 [address] [place] [address] Echocardiogram Report Name: ISA RO Study Date: 409:03 AMBP: 129/68 mmHg Patient Location: : 1965 Height: 158 cm Account: [id number] Age: 59 yrs Weight: 57 kg Gender: [...] now decreased andnew wall motion abnormalities. Procedure Complete-[id number]. Image enhancement Definity was used for left [...] View (03/19/2024 8:37 AM EDT) WORKSTATION ID [id number] RAD Anatomical Region Laterality Modality Chest N/A [...] who have questions please contact the health customer care professional that requested your imaging first. ? Electronically signed by: Isa Whitley MD, [facility] ??([phone]), at 03/19/2024 10:09 AM Narrative 03/19/2024 10:09 [...] patients who have questions please contactthe health customer care professional that requested your imaging first. Electronically signed by: Isa Whitley MD, [facility]([phone]), at 03/19/2024 10:09 AM Delores Jett MD IMG DX ORDERABLES * Hemoglobin A1c (03/19/2024 5:25 AM EDT) Pathologist [facility] Hemoglobin A1C 5.6 4.3 - 5.6 % [facility] Comment: Reference Range: 4.3 [...] Mellitus, Diabetes Care 2013; 36: Suppl. 1, A47-68 Est Avg Gluc 114 mg/dL [facility] Blood Venous Draw / Unknown 03/19/2024 5:25 AM EDT 03/19/2024 3:52 PM EDT Narrative Resulting Agency Comment Spec In Lab Horace Hancock MD CHEMISTRY ORDERABLES [facility] [place] [address] * (ABNORMAL) Differential, Automated (03/19/2024 5:25 AM EDT) Neutrophils % 90.0 % [facility] Neutr Abs (ANC) 16.73(H) 1.70 - 6.10 x10(3)/mc L [facility] Lymphocytes % 5.2 % [facility] Lymphocytes Abs 1.0 0.9 - 3.2 x10(3)/[facility] LABORATORY Monocytes % 4.2 % [facility] Monocyte Abs 0.8 0.3 - 0.9 x10(3)/[facility] LABORATORY Eosinophils % 0.0 % [facility] Eosinophils Abs 0.0 0.0 - 0.4 x10(3)/[facility]OR[facility] Basophils % 0.2 % [facility] Basophils Abs 0.0 0.0 - 0.1 x10(3)/[facility] LABORATORY Immature Gran % 0.40 % [facility] Comment: Immature granulocytes(IG's)percentage and absolute count will include metamyelocytes, myelocytes, and promyelocytes. Blood smears from CBCs yielding IG's will be scanned manually for concordance. If this scan disagrees with the automated IG or if promyelocytes are noted, a manual differential will be performed. Lesia Gran Abs 0.08(H) 0.00 - 0.04 x10(3)/[facility] LAB[facility] Blood 03/19/2024 5:25 AM EDT 03/19/2024 5:34 AM EDT Narrative Resulting Agency Comment Spec In Lab Ganesh Nguyen MD HEMATOLOGY ORDERA BLES [facility] [place] [address] * (ABNORMAL) Hemogram (03/19/2024 5:25 AM EDT) WBC 18.6(H) 4.0 - 9.5 x10(3)/[facility] LABORATORY RBC 4.92 4.00 - 5.21 x10(6)/[facility] LABORATORY Hemoglobin 13.7 11.7 - 15.5 g/dL [facility] Hematocrit 40.6 35.7 - 45.8 % [facility] MCV 82.5(L) 82.6 - 94.4 fL [facility] MCH 27.8 27.1 - 32.0 pg [facility] MCHC 33.7 31.7 - 35.0 g/dL [facility] Platelets 285 145 - 357 x10(3)/[facility] LABORATORY RDWSD 41.1 37.0 - 46.0 [facility] LABORATORY RDWCV 13.6 11.5 - 14.1 % [facility] MPV 9.5 7.6 - 12.9 [facility] nRBC % Auto 0.0 % [facility] nRBC Abs Auto 0.000 0.000 - 0.000 x10(3)/[facility] LAB[facility] Blood 03/19/2024 5:25 AM EDT 03/19/2024 5:34 AM EDT Narrative Resulting Agency Comment Spec In Lab Ganesh Nguyen MD HEMATOLOGY ORDERA BLES [facility] [place] [address] * Lipid Panel (Reflex Direct LDL) (03/19/2024 5:25 AM EDT) Chol, Total 324 mg/dL [facility] Comment: Desirable: ? <200 mg/dL Borderline High: 200-239 mg/dL Higher: ?>sj=689 mg/dL Triglycerides 200 mg/dL [facility] Comment: Normal: ?<150 mg/dL Borderline High: 150-199 mg/dL High: ?200-499 mg/dL Very High: ? >nc=132 mg/dL HDL 68 mg/dL [facility] Comment: Females: High Risk: <50 mg/dL Males: High Risk: <40 mg/dL LDL Cholesterol 216 mg/dL [facility] Comment: Desirable: ? <100 mg/dL Above Desirable: 100-129 mg/dL Borderline High: 130-159 mg/dL High: ?160-189 mg/dL Very High: ? >yo=971 mg/dL Lipid Interpretation See Note [facility] Comment: It is important [...] ACC/AHA Guidelines (most recently Jw et al. [facility] 06/17/22): For individuals with atherosclerotic cardiovascular disease (ASCVD)or LDL >gv=683 mg/dL, use a high-intensity statin (40-80 mg [...] Lab Ganesh Nguyen MD CHEMISTRY ORDERAB LES [facility] [place] [address] * (ABNORMAL) Troponin (03/19/2024 5:25 AM EDT) Troponin-T HS 1,276(H) <=14 ng/L [facility] Comment: [...] troponin value can be found in the [facility] Test Catalog Troponin - [facility] Test Catalog Reference: Fourth Simpson Definition of Myocardial Infarction. Journal of the [place] [employer] 2018;72:2586-2051 Blood 03/19/2024 5:25 AM EDT 03/19/2024 5:34 AM EDT Narrative Resulting Agency Comment Spec In Lab Ganesh Nguyen MD CHEMISTRY ORDERAB LES Performing Organization Address [facility] Co de Phone Number [facility] [place] [address] * APTT (03/19/2024 5:25 AM EDT) PTT 29 25 - 37 sec [facility] Comment: The PTT is NOT appropriate for heparin monitoring. Use the Anti-Xa level for heparin monitoring (HEP UFH) or LMWH monitoring (HEP LMW). A PTT less than 37 seconds generally indicates adequate hemostasis. Blood 03/19/2024 5:25 AM EDT 03/19/2024 5:34 AM EDT Narrative Resulting Agency Comment Spec In Lab Ganesh Nguyen MD HEMATOLOGY ORDERA BLES Performing Organization Address [facility] de Phone Number [facility] [place] [address] * Prothrombin Time (03/19/2024 5:25 AM EDT) PT 10.9 9.4 - 12.5 sec [facility] INR 1.0 [facility] Comment: An INR <2.0 indicates [...] ORDERA BLES Performing Organization Address [facility] Co de Phone Number [facility] [place] [address] * (ABNORMAL) Comprehensive metabolic panel (non-fasting) (03/19/2024 5:25 AM EDT) Glucose Lvl 181 65 - 199 mg/dL [facility] Comment:Diabetes: >=200 mg/d L plus symptoms BUN 14 8 - 18 mg/dL [facility] Creatinine 0.91 0.70 - 1.20 mg/dL [facility] Sodium 137 135 - 145 mmol/L [facility] Potassium 4.2 3.5 - 5.0 mmol/L [facility] Comment: Please note: ??Patients with WBC >100,000 may have falsely elevated Potassium levels. ??For accurate Potassium quantification in these patients send serum separator tube (gold top) for subsequent determinations. ??Contact the Clinical Chemistry Laboratory if there are any questions. Chloride 100 98 - 107 mmol/L [facility] CO2 22 22 - 31 mmol/L [facility] Anion Gap 15 5 - 15 mmol/L [facility] Calcium 8.7 8.5 - 10.5 mg/dL [facility] Total Protein 7.2 6.1 - 8.0 g/dL [facility] Albumin 4.5 3.2 - 5.2 g/dL [facility] AST 95(H) 0 - 30 unit/L [facility] Comment:result rechecked-bz ALT 31(H) 0 - 30 unit/L [facility] Alk Phos 70 35 - 105 unit/L [facility] Total Bilirubin 0.5 0.2 - 1.3 mg/dL [facility] Estimated GFR 72 >=60 mL/min/1. 73 m?? [facility] Comment: This patient's estimated [...] MD CHEMISTRY ORDERAB LES Performing Organization Address City/[facility]/ZIP Co de Phone Number [facility] [place] [address] * EKG 12 Lead (03/19/2024 2:23 AM EDT) Ventricular rate 67 BPM MUSE SYSTEM Atrial Rate 67 BPM MUSE SYSTEM P-R Interval 152 ms MUSE SYSTEM QRS Duration 78 ms MUSE SYSTEM Q-T Interval 500 ms MUSE SYSTEM QTC Calculated (Bezet) 528 ms MUSE SYSTEM Calculated P [place] 54 degrees MUSE SYSTEM Calculated R [place] 56 degrees MUSE SYSTEM Calculated T [place] 31 degrees MUSE SYSTEM INTERPRETATION Normal sinus rhythm Prolonged QT Abnormal ECG No previous ECGs available Confirmed by MD Ambrosio David ([id number]) on 03/23/2024 8:10:32 AM MUSE SYSTEM 03/19/2024 2:23 AM EDT 03/23/2024 8:10 AM EDT Ganesh Nguyen MD ECG ORDERABLES Performing Organization Address [facility]/ZIP Co de Phone Number MUSE SYSTEM * (ABNORMAL) Differential, Automated (03/19/2024 2:20 AM EDT) Pathologist [facility] Neutrophils % 89.8 % [facility] Neutr Abs (ANC) 15.44(H) 1.70 - 6.10 x10(3)/mc L [facility] Lymphocytes % 6.4 % [facility] Lymphocytes Abs 1.1 0.9 - 3.2 x10(3)/mc L [facility] Monocytes % 2.9 % [facility] Monocyte Abs 0.5 0.3 - 0.9 x10(3)/mc L [facility] Eosinophils % 0.1 % [facility] Eosinophils Abs 0.0 0.0 - 0.4 x10(3)/mc L [facility] Basophils % 0.3 % [facility] Basophils Abs 0.0 0.0 - 0.1 x10(3)/mc L [facility] Immature Gran % 0.50 % [facility] Comment: Immature granulocytes(IG's)percentage and absolute count will include metamyelocytes, myelocytes, and promyelocytes. Blood smears from CBCs yielding IG's will be scanned manually for concordance. If this scan disagrees with the automated IG or if promyelocytes are noted, a manual differential will be performed. Lesia Gran Abs 0.08(H) 0.00 - 0.04 x10(3)/mc L [facility] Blood 03/19/2024 2:20 AM EDT 03/19/2024 2:59 AM EDT Narrative Resulting Agency Comment Spec In Lab Ganesh Nguyen MD HEMATOLOGY ORDERA BLES Performing Organization Address City/State/[facility] Co de Phone Number [facility] [place] [address] * (ABNORMAL) Hemogram (03/19/2024 2:20 AM EDT) WBC 17.2(H) 4.0 - 9.5 x10(3)/[facility] LABORATORY RBC 4.70 4.00 - 5.21 x10(6)/[facility] Hemoglobin 13.3 11.7 - 15.5 g/dL [facility] Hematocrit 38.7 35.7 - 45.8 % [facility] MCV 82.3(L) 82.6 - 94.4 fL [facility] MCH 28.3 27.1 - 32.0 pg [facility] MCHC 34.4 31.7 - 35.0 g/dL [facility] Platelets 281 145 - 357 x10(3)/[facility] LABORATORY RDWSD 41.0 37.0 - 46.0 fL [facility] RDWCV 13.7 11.5 - 14.1 % [facility] MPV 9.7 7.6 - 12.9 fL [facility] nRBC % Auto 0.0 % [facility] nRBC Abs Auto 0.000 0.000 - 0.000 x10(3)/mcL [facility] Blood 03/19/2024 2:20 AM EDT 03/19/2024 2:59 AM EDT Narrative Resulting Agency Comment Spec In Lab Ganesh Nguyen MD HEMATOLOGY ORDERA BLES [facility] [place] [address] * (ABNORMAL) Troponin (03/19/2024 2:20 AM EDT) Troponin-T HS 960(H) <=14 ng/L [facility] [...] troponin value can be found in the [facility] Test Catalog Troponin - [facility] Test Catalog Reference: Fourth Simpson Definition of Myocardial Infarction. Journal of the [place] [employer] 2018;72:1706-8571 Blood 03/19/2024 2:20 AM EDT 03/19/2024 2:59 AM EDT Narrative Resulting Agency Comment Spec In Lab Ganesh Nguyen MD CHEMISTRY ORDERAB LES Performing Organization Address [facility] de Phone Number [facility] [place] [address] * (ABNORMAL) APTT (03/19/2024 2:20 AM EDT) PTT 123(Criti lewis) 25 - 37 sec [facility] Comment: Critical Result called by ?? HOWAJM CRITICAL Results read back by: ? chang jacuqeline at 2024-03-19 03:42:13 The PTT is NOT appropriate for heparin monitoring. Use the Anti-Xa level for heparin monitoring (HEP UFH) or LMWH monitoring (HEP LMW). A PTT less than 37 seconds generally indicates adequate hemostasis. Blood 03/19/2024 2:20 AM EDT 03/19/2024 2:59 AM EDT Narrative Resulting Agency Comment Spec In Lab Ganesh Nguyen MD HEMATOLOGY ORDERA BLES Performing Organization Address [facility] de Phone Number [facility] [place] [address] * Prothrombin Time (03/19/2024 2:20 AM EDT) PT 11.7 9.4 - 12.5 sec [facility] INR 1.0 [facility] Comment: An INR <2.0 indicates [...] ORDERA BLES Performing Organization Address [facility]/ZIP Co de Phone Number [facility] [place] [address] * (ABNORMAL) Hepatic Function Panel (03/19/2024 2:20 AM EDT) Total Protein 6.7 6.1 - 8.0 g/dL [facility] Albumin 4.3 3.2 - 5.2 g/dL [facility] AST 49(H) 0 - 30 unit/L [facility] ALT 26 0 - 30 unit/L [facility] Alk Phos 67 35 - 105 unit/L [facility] Total Bilirubin 0.4 0.2 - 1.3 mg/dL [facility] Bili, Direct 0.1 0.0 - 0.3 mg/dL [facility] Blood 03/19/2024 2:20 AM EDT 03/19/2024 2:59 AM EDT Narrative Resulting Agency Comment Spec In Lab Ganesh Nguyen MD CHEMISTRY ORDERAB LES Performing Organization Address [facility] Co de Phone Number [facility] [place] [address] * (ABNORMAL) pro-Brain Natriuretic Peptide (03/19/2024 2:20 AM EDT) ProBNP 529(H) <=124 pg/mL [facility] Blood 03/19/2024 2:20 AM EDT 03/19/2024 2:59 AM EDT Narrative Resulting Agency Comment Spec In Lab Ganesh Nguyen MD CHEMISTRY ORDERAB LES Performing Organization Address [facility] Co de Phone Number [facility] [place] [address] * Phosphorus (03/19/2024 2:20 AM EDT) Phosphorus 3.8 2.5 - 4.5 mg/dL [facility] Blood 03/19/2024 2:20 AM EDT 03/19/2024 2:59 AM EDT Narrative Resulting Agency Comment Spec In Lab Ganesh Nguyen MD CHEMISTRY ORDERAB LES Performing Organization Address City/[facility] Co de Phone Number [facility] [place] [place] [address] * Magnesium (03/19/2024 2:20 AM EDT) Magnesium 0.71 0.69 - 1.07 mmol/L [facility] Blood 03/19/2024 2:20 AM EDT 03/19/2024 2:59 AM EDT Narrative Resulting Agency Comment Spec In Lab Gaensh Nguyen MD CHEMISTRY ORDERAB LES Performing Organization Address [facility] Co de Phone Number [facility] [place] [place] [address] * (ABNORMAL) Basic Metabolic Panel (non-fasting) (03/19/2024 2:20 AM EDT) Glucose Lvl 160 65 - 199 mg/dL [facility] Comment:Diabetes: >=200 mg/d L plus symptoms BUN 14 8 - 18 mg/dL [facility] Creatinine 0.88 0.70 - 1.20 mg/dL [facility] Sodium 137 135 - 145 mmol/L [facility] Potassium 3.9 3.5 - 5.0 mmol/L [facility] Comment: Please note: ??Patients with WBC >100,000 may have falsely elevated Potassium levels. ??For accurate Potassium quantification in these patients send serum separator tube (gold top) for subsequent determinations. ??Contact the Clinical Chemistry Laboratory if there are any questions. Chloride 100 98 - 107 mmol/L [facility] CO2 20(L) 22 - 31 mmol/L [facility] Anion Gap 17(H) 5 - 15 mmol/L [facility] Calcium 8.2(L) 8.5 - 10.5 mg/dL [facility] Estimated GFR 75 >=60 mL/min/1. 73 m?? [facility] Comment: This patient's estimated [...] MD CHEMISTRY ORDERAB LES Performing Organization Address City/State/[facility] Co de Phone Number [facility] [place] [place] [address] * (ABNORMAL) Point of Care Blood Gas Historical (03/19/2024 1:41 AM EDT) POC pH 7.28(Criti lewis) 7.35 - 7.45 [facility] POC PCO2 40 35 - 45 mmHg [facility] POC PO2 84(L) 85 - 104 mmHg [facility] POC Base Excess -8.0(L) -3.0 - 3.0 mmol/L [facility] POC HCO3 18.6(L) 20.0 - 26.0 mmol/L [facility] POC TCO2 20(L) 22 - 31 mmol/L [facility] POC Sodium 134(L) 135 - 145 mmol/L [facility] POC Potassium 3.4(L) 3.5 - 5.0 mmol/L [facility] POC Ionized Ca 1.09(L) 1.15 - 1.33 mmol/L [facility] POC Hematocrit 38.0 34.0 - 45.0 % [facility] POC Calc Hgb 12.9 11.2 - 15.7 g/dL [facility] Blood 03/19/2024 1:41 AM EDT 03/19/2024 1:41 AM EDT Kathryn Walker MD CHEMISTRY ORDERABL ES [facility] [place] [address] * CARDIAC CATHETERIZATION (03/19/2024 1:36 AM EDT) Anatomical Region Laterality Modality Other Narrative 03/19/2024 7:19 AM EDT ?[facility] ? Cardiac Catheterization/Intervention Report ? Patient Name: Isa Ro. ? Procedure Date: 03/19/2024 ? A #: [id number] ? Primary Physician: Ramo Roy ? Case #: [id number] ? File Name: [id number] ? Catheterization Order Number: [id number] ? [facility] ? Final Report [place], [place] ? Patient Name: ? Isa A. Warnaar ? ID#: ?[id number] ? : ?1965 ? Procedure Date: ? March 19, 2024 ? Case #: ? [id number] ? Room: ? 6 ? Case Physician: [...] was Emergent. The indication for ?the laboratory analyst visit is ACS less than or [...] ?3.5 guiding catheter and a 3.5 Fr [place] 20 Mhz using auto 1 ?mm/sec pullback. [...] ? A premounted 3.00 x 08 mm [place] (JAHAIRA) was deployed ? with a maximum inflation pressure of 12 atmospheres. ? Another stent insertion was accomplished through a 6 Fr. EBU ? 3.5 guide. ??A premounted 2.00 x 08 mm [place] (JAHAIRA) was ? deployed. ? The final [...] administered prior to arrival in the laboratory analyst. ?Recommended anti-platelet/anti-thrombotic regimen: ?Start aspirin 81 mg daily now and continue for indefinitely. ?Start clopidogrel 75 mg daily now and continue for 12 months then stop. ?These recommendations are made at the time of the intervention. Patient ?and provider preferences or a changing clinical situation may require ?modification of this regimen. Consult [facility] Interventional Cardiology for ?questions. ?The 1 [...] against any medical treatment. Consult ?http://tools.acc.org/DAPTriskapp/#!/content/calculator/ or [facility] ?Interventional Cardiology for questions ? Conclusions: [...] Procedure Note Ramo Roy MD - 03/21/[address] [facility] Cardiac Catheterization/Intervention Report Patient Name: Isa Ro Procedure Date: 03/19/2024 A #: [id number] Primary Physician: Ramo Roy Case #: [id number] File Name: [id number] Catheterization Order Number: [id number] [facility] FinalReport [place], [place] Patient Name: Isa Ro ID#:[id number] :1965 Procedure Date: March 19, 2024 Case [...] patientwas designated as ASA Class IV. The [facility] clinical frailty scale is 3: Managing Well. Diagnostic Tests: Prior Coronary Angiography: Prior coronary angiography was performed on 12/15/2014. Electrocardiography: EKG was assessed by ECG. EKG was Abnormal. EKG showed STDeviation >= 0.5 mm and other abnormality. Medications Prior to Procedure: Aspirin. Indications for Diagnostic Cath: The priority of the diagnostic procedure was Emergent. Theindication for the laboratory analyst visit is ACS less than or [...] 3.5 guiding catheter and a 3.5 Fr [facility] 20 Mhz usingauto 1 mm/sec pullback. Imaging [...] The lesion was predilated with a 2.50mm [id number] MM balloon with a maximum inflation pressure of 14atmospheres. A premounted 3.00 x 08 mm [place] (JAHAIRA) wasdeployed with a maximum inflation pressure of 12 atmospheres. Another stent insertion was accomplished through a 6 Fr.EBU 3.5 guide. A premounted 2.00 x 08 mm [place] (JAHAIRA)was deployed. The final outcome was defined [...] administered prior to arrival in the laboratory analyst. Recommended anti-platelet/anti-thrombotic regimen: Start aspirin 81 mg daily now and continue for indefinitely. Start clopidogrel 75 mg daily now and continue for 12 months thenstop. These recommendations are made at the time of the intervention.Patient and provider preferences or a changing clinical situation mayrequire modification of this regimen. Consult [facility] Interventional Cardiologyfor questions. The 1 year [...] or against any medical treatment.Consult http://tools.acc.org/DAPTriskapp/#!/content/calculator/ or [facility] Interventional Cardiology for questions Conclusions: * [...] POC pH 7.20(Criti lewis) 7.35 - 7.45 [facility] POC PCO2 38 35 - 45 mmHg [facility] POC PO2 74(L) 85 - 104 mmHg [facility] POC Base Excess -14.0(L) -3.0 - 3.0 mmol/L [facility] POC HCO3 14.5(L) 20.0 - 26.0 mmol/L [facility] POC TCO2 16(L) 22 - 31 mmol/L [facility] POC Sodium 116(Critic al) 135 - 145 mmol/L [facility] POC Potassium 3.1(L) 3.5 - 5.0 mmol/L [facility] POC Ionized Ca 1.04(L) 1.15 - 1.33 mmol/L [facility] POC Hematocrit 39.0 34.0 - 45.0 % [facility] POC Calc Hgb 13.3 11.2 - 15.7 g/dL [facility] Blood 03/19/2024 1:26 AM EDT 03/19/2024 1:26 AM EDT Kathryn Walker MD CHEMISTRY ORDERABL ES [facility] [address] [place] [address] documented in this encounter Visit Diagnoses Diagnosis [...] Until Discontinued, Routine 0801 (Given - Provider: Lortea Lopez RN) famotidine (Pepcid) tablet 20 mg [...] Routine documented in this encounter Care Teams Lease Out Man Relationship Specialty Start Date End Date None None PCP - General 03/19/24 documented as of this encounter
--- OUTSIDE RECORDS SUMMARY | 2024-04-13 10:35 | XMS_ITS | Encounter Summary ---
Author Organization [facility] Address [facility] [place] [address] Care Team Providers Care Chair Car Attendant Name Role Phone None Primary Care Provider Unavailabl e Encounter Details Date Type Department Care Team (Late st Contact Info) Description 03/27/2024 Telephone Cardiology at [address] [place] [phone] Collins Yanes PA [facility] [place] [address] Social History Tobacco Use Types Packs/Day Years Used Date Smoking Tobacco: Former Smokeless Tobacco: Never Alcohol Use Standard Drinks/Week Comments Yes 14 (1 standard drink = 0.6 oz pu re alcohol) [facility] Utilities Answer Date Recorded In the [...] any time in the past 12 m [facility], were you homeless or living in a long term (including now)? No 03/21/2024 IPV Inpatient Questions [...] 03/27/2024 10:39 AM EDT Received page from air gun operator. Isa called in from home this [...] 10:40 AM EDT Office Visit Cardiology at [address] [address] Herlinda Weaver PA [facility] [place] [address] documented as of this encounter Visit Diagnoses Not on filedocumented in this encounter Care Teams Chair Car Attendant Relationship Specialty Start Date End Date None None PCP - General 03/19/24 documented as of this encounter
--- OUTSIDE RECORDS SUMMARY | 2024-04-13 10:35 | XMS_ITS | Encounter Summary ---
Author Organization [facility] Address [address] [place] [address] Care Team Providers Care Supervisor Fleshing Name Role Phone Unavailable Primary Care Provider Unavailabl e Encounter Details Date Type Department Care Team (Late st Contact Info) Description 04/29/2010 Results Only [address] [address] Pretty Avery MD [address] [place] [phone] Social History Tobacco Use Types Packs/Day Years [...] ? EZEQUIEL THOMAS ? Accession #: ? [id number] ? : ? 1965 (Age: 45) ??F [...] Avery MD PATHOLOGY ORDERABLES [facility] [address] [place] [address] documented in this encounter Visit Diagnoses Not on filedocumented in this encounter
--- OUTSIDE RECORDS SUMMARY | 2024-04-13 10:35 | XMS_ITS | Encounter Summary ---
Author Organization [facility] Address [address] [place] [address] Care Team Providers Care Loom Stop Checker Name Role Phone Pretty Avery MD Primary Care Provider [phone] Encounter Details Date Type Department Care Team (Late st Contact Info) Description 12/02/2005 Results Only [facility] [address] [place] [address] Jake Sabillon FNP [address] [place], [place] [address] Social History Tobacco Use Types Packs/Day Years [...] ? ANNEEZEQUIEL GREEN ? Accession #: ? [id number] : ? 1965 (Age: 40) ??F ?Collect Date: ? 12/02/2005 Location: ? [facility] ? Receive Date: ? 12/04/2005 Provider: ?JAKE SABILLON TEXTILE SCREEN PRINTER Copy to: ? Specimen/Source: ?ThinPrep Pap Test, Cervix/Endocervix, processed on [employer] ThinPrep Imaging System, with manual evaluation Last [...] GARCÍAP PATHOLOGY ORDERABLES [facility] [address] [place] [address] documented in this encounter Visit Diagnoses Not on filedocumented in this encounter Care Teams Loom Stop Checker Relationship Specialty Start Date End Date Pretty Avery MD [address] [place] [address] PCP - General 06/05/10 documented as of this encounter
--- OUTSIDE RECORDS SUMMARY | 2024-04-13 10:35 | XMS_ITS | Encounter Summary ---
Author Organization [facility] Address [address] [place] [address] Care Team Providers Care City Recorder Name Role Phone Unavailable Primary Care Provider Unavailabl e Encounter Details Date Type Department Care Team (Late st Contact Info) Description 12/31/2007 Results Only [facility] Women's Services - [address] [phone] Skip Alcocer MD [address] [place] [address], [address] [place] [address] Social History Tobacco Use Types [...] Results * AMNIOTIC FLUID/[facility]S ANEUPLOIDY FISH (FOR X,Y,21,13,18)([facility] #[id number]) (12/31/2007 16:34 EDT) Specimen (Note) Chorionic Villi Sample ? [facility] Specimen ID [id number] [facility] Order Date 01 Jan 2008 09:10 [facility] Method (Note) FISH analysis of 100 nuclei with probes for Xcen (DXZ1), ? Ycen (DYZ3), 13q14 (Rb1), 18cen (D18Z1) and 21q22 ([id number]). ? [facility] Reason For Referral [...] ? FISH results. ? The College [employer] and the [place] ? Oravel recommend confirmation of ? abnormal diagnostic results at or ? termination, to the extent possible. ? DISCLAIMER: ??This test was developed and its performance ? characteristics determined by Laboratory Medicine and ? Pathology, [facility]. ??It has not been cleared ? or approved by the U.S. Food and Drug Administration. ??This ? FISH assay does not rule out other chromosome anomalies. ? Woody et al., [place] Clin Proc 73:132-137, 1998. ? [facility] Director [employer] (Note) Eduardo Corey MD ? [facility] Report Date 03 Jan 2008 12:44 Performed or Referred by: [facility] Dpt of Lab Med and Path, [address] ?? , [place] [address], Lab Dir: MD URVASHI Morgan III 12/31/2007 16:3 4 EDT 12/31/2007 16:34 EDT Skip Alcocer MD GEN LAB UNIT EL[facility] ECT ORDERABLES [facility] [address] [place] [address] * [facility] CHROMOSOME ANALYSIS ([facility] #[id number]) (12/31/2007 16:34 EDT) Specimen (Note) Chorionic Villi Sample ? [facility] Specimen ID [id number] [facility] Order Date 01 Jan [...] ? reported separately. ? [facility] Director [employer] (Note) Manuel V N Velagakarlyi PhD ? [facility] Report Date 10 Jan 2008 16:27 Performed or Referred by: [facility] Dpt of Lab Med and Path, [address] ?? , [place] [address], Lab Dir: MD URVASHI Morgan III Haploid Band Resolution 400Unit: bands [facility] Total Cells Analyzed 30 [facility] Total Cells Karyotyped 2 [facility] 12/31/2007 16:3 4 EDT 12/31/2007 16:34 EDT Skip Alcocer MD HEMATOLOGY & PF4 ORDERABLES [facility] [address] [place] [address] documented in this encounter Visit Diagnoses Not on filedocumented in this encounter
--- OUTSIDE RECORDS SUMMARY | 2024-04-13 10:36 | XMS_ITS | Encounter Summary ---
Author Organization [facility] Address [facility] [place] [address] Care Team Providers Care Amphibious Operations Officer Name Role Phone Pretty Avery MD Primary Care Provider [phone] Encounter Details Date Type Department Care Team (Latest Contact Info) Description 03/18/2024 11:37 PM EDT - 03/18/2024 11:59 PM EDT Hospital [place] [phone] Destin Ambrosio MD [facility] [place] [address] Discharge Disposition: Home Social History Tobacco Use [...] AM EDT Office Visit Cardiology at [address] [address] Herlinda [place] PA [facility] [place] [address] documented as of this encounter Visit Diagnoses Not on filedocumented in this encounter Care Teams Amphibious Operations Officer Relationship Specialty Start Date End Date Pretty Avery MD [address] [place] [address] PCP - General 08/06/10 03/18/24 documented as of this encounter
--- OUTSIDE RECORDS SUMMARY | 2024-04-13 10:36 | XMS_ITS | Encounter Summary ---
Author Organization [facility] [place] [address] Care Team Providers Care International Editorial Producer Name Role Phone None Primary Care Provider Unavailabl e Encounter Details Date Type Department Care Team (Late st Contact Info) Description 03/18/2024 External Results Emergency Department [facility] [place] [phone] Social History Tobacco Use Types Packs/Day Years Used Date Smoking Tobacco: Former Smokeless Tobacco: Never [facility] Utilities Answer Date Recorded In [...] in the past 12 m [facility], were you homeless or living in a penitentiary (including now)? No 03/21/2024 IPV Inpatient Questions [...] AM EDT Office Visit Cardiology at [address] [address] Herlinda eWaver PA [facility] [place] [address] documented as of this encounter Procedures Procedure [...] on filedocumented in this encounter Care Teams International Editorial Producer Relationship Specialty Start Date End Date None None PCP - General 03/19/24 documented as of this encounter
--- OUTSIDE RECORDS SUMMARY | 2024-04-13 10:36 | XMS_ITS | Encounter Summary ---
[place] [address] Care Team Providers Care College Professor Name Role Phone Pretty Avery MD Primary Care Provider [phone] Reason for Referral * Diagnostic Test (Routine) - Closed Specialty Diagnoses / Procedures Referred By Contac t Referred To Contact Cardiology Diagnoses Hyperlipidemia, unspecified hyperlipidemia type Procedures Mobile Demi Gross APRN [address] [place] [address] [facility] [place] [address] Referral ID Status Reason Start Date Expiration Date V isits Requested Visits Authorized [id number] Closed Specialty Service Requested 08/28/2023 08/27/2024 1 1 Reason for Visit * Diagnostic Test (Routine) - Closed Specialty Diagnoses / Procedures Referred By Contac t Referred To Contact Cardiology Diagnoses Hyperlipidemia, unspecified hyperlipidemia type Procedures Mobile Echo Demi Archibald APRN [address] [place] [address] [facility] [place] [address] Referral ID Status Reason Start Date Expiration Date V isits Requested Visits Authorized [id number] Closed Specialty Service Requested 08/28/2023 08/27/2024 1 1 Encounter Details Date Type Department Care Team (Latest Contact Info) Description 08/28/2023 3:53 PM EST - 08/28/2023 11:59 PM EST Hospital Encounter Mobile [place] [address] Demi Archibald APRN [address] [place] [address] Hyperlipidemia, unspecified hyperlipidemia type Discharge Disposition: Home [...] 10:40 AM EDT Office Visit Cardiology at [address] [address] Herlinda [place] PA [facility] [place] [address] documented as of this encounter Procedures Procedure Name Priority Date/Time Associated Diagnosis Comments ECHO COMPLETE Routine 08/28/2023 4:04 PM EST Hyperlipidemia, unspecified hyperlipidemia type documented in this encounter Results * ECHO COMPLETE (08/28/2023 4:04 PM EST) Anatomical Region Laterality Modality Other 08/28/2023 2:15 PM EST Narrative 08/28/2023 4:14 PM EST [address] [place] [address] ? Echocardiogram Report Name: EZEQUIEL THOMAS ?Study Date: 08/28/2023 02:15 PM ? [facility] 1965 ? Height: 157 cm ? Account: [id number] Age: 58 yrs ? Weight: 57 kg Gender: Female ?BSA: 1.6 m2 Ordering Physician: DEMI ARCHIBALD Referring Physician: DEMI ARCHIBALD Reason For Study: CAD, HLD, HTN Exam Location: [facility]. Interpretation Summary Normal biventricular size and function. LVEF 60-65% by visual assessment. Normal diastolic function. Normal pulmonary pressures. Normal atrial sizes. Mild mitral regurgitation. No prior for comparison. Procedure Complete-[id number]. Satisfactory quality. Left Ventricle Wall thickness is [...] Note Kaylee Sutherland MD - 08/28/2023 [address] [place] [address] Echocardiogram Report Name: EZEQUIEL THOMAS Study Date:08/28/2023 02:15 PM Patient Location: : 1965 Height: 157 cm Account: [id number] Age: 58 yrs Weight: 57 kg Gender: Female BSA: 1.6 m2 Ordering Physician: DEMI ARCHIBALD Referring Physician: DEMI ARCHIBALD Reason For Study: CAD, HLD, HTN Exam Location: [facility]. Interpretation Summary Normal biventricular size and function. LVEF 60-65% by visual assessment.Normal diastolic function. Normal pulmonary pressures. Normal atrial sizes. Mild mitral regurgitation. No prior for comparison. Procedure Complete-[id number]. Satisfactory quality. Left Ventricle Wall thickness is [...] type documented in this encounter Care Teams College Professor Relationship Specialty Start Date End Date Pretty Avery MD [address] [place] [address] PCP - General 08/06/10 03/18/24 documented as of this encounter
--- OUTSIDE RECORDS SUMMARY | 2024-04-13 10:36 | XMS_ITS | Encounter Summary ---
Author Organization [facility] [place] [address] Care Team Providers Care Manager Trade Name Role Phone Pretty Avery MD Primary Care Provider [phone] Reason for Visit * Reason Comments Skin Check hx of SCC Encounter Details Date Type Department Care Team (Late st Contact Info) Description 01/14/2019 1:30 PM EDT Office Visit Dermatology at [facility] [address] [place] [address] Patrizia Moralez MD [facility] [address] [facility] [address] Multiple benign nevi; Lentigines; Seborrheic keratosis; History [...] History: Left lower back, sBCC, ED&C on 02-72-98-[facility] Seborrheic keratoses Family History: Melanoma: None Father [...] by: Patrizia Moralez MD Resident in Dermatology [facility] Patient seen and evaluated with staff emergency vehicle dispatcher: Lisa Candelario MD Section of Dermatology [facility] * Lisa Candelario MD - 01/14/2019 [...] 10:40 AM EDT Office Visit Cardiology at [address] [address] Herlinda [place] PA [facility] [place] [address] documented as of this encounter Visit Diagnoses Diagnosis Multiple benign nevi Benign neoplasm of skin, site unspecified Lentigines Other dyschromia Seborrheic keratosis Other seborrheic keratosis History of basal cell cancer Personal history of other malignant neoplasm of skin Garcia angioma Nevus, non-neoplastic Skin cancer screening Screening for malignant neoplasm of the skin Arthropod bite, initial encounter documented in this encounter Care Teams Manager Trade Relationship Specialty Start Date End Date Pretty Avery MD [address] [place] [address] PCP - General 08/06/10 03/18/24 documented as of this encounter
--- OUTSIDE RECORDS SUMMARY | 2024-04-13 10:36 | XMS_ITS | Encounter Summary ---
Author Organization [facility] [place] [address] Care Team Providers Care Sheet Metal Worker Helper Name Role Phone Pretty Avery MD Primary Care Provider [phone] Reason for Visit * Reason Comments Skin Check Encounter Details Date Type Department Care Team (Late st Contact Info) Description 02/04/2017 1:15 PM EDT Office Visit Dermatology at [facility] [address] [place] [address] Lisa Candelario MD [facility] [place] [address] Seborrheic keratosis; Multiple benign nevi; History of [...] encounter. Lisa Candelario MD Section of Dermatology [facility] documented in this encounter Plan of Treatment Upcoming Encounters Date Type Department Care Team (Late st Contact Info) Description 05/09/2024 10:40 AM EDT Office Visit Cardiology at [address] [address] Herlinda Weaver PA [facility] [place] [address] documented as of this encounter Visit Diagnoses Diagnosis Seborrheic keratosis Other seborrheic keratosis Multiple benign nevi Benign neoplasm of skin, site unspecified History of basal cell cancer Personal history of other malignant neoplasm of skin documented in this encounter Care Teams Sheet Metal Worker Helper Relationship Specialty Start Date End Date Pretty Avery MD [address] [place] [id number] PCP - General 08/06/10 03/18/24 documented as of this encounter
--- OUTSIDE RECORDS SUMMARY | 2024-04-13 10:36 | XMS_ITS | Encounter Summary ---
Author Organization [facility] [place] [address] Care Team Providers Care Tape Weaver Name Role Phone None Primary Care Provider Unavailabl e Encounter Details Date Type Department Care Team (Late st Contact Info) Description 03/18/2024 Telephone Cardiology at [address] [address] Yusuf Herrera MD [facility] [place] [address] Social History Tobacco Use Types Packs/Day Years Used Date Smoking Tobacco: Former Smokeless Tobacco: Never DH [facility] Inpatient Questions Answer Date Recorded Does [...] 03/19/24 Initial Contact Time: 2209 Patient Location: [facility] Presenting Symptoms per OSH: 59 year old female, history of CAD c/b NSTEMI (see below), hypertension, hyperlipidemia, who was resting at home at 20:30 when she developed substernal chest pressure radiating to right arm which wasvery severe and reminiscent of prior CT. Associated with diaphoresis. No syncope, SOB, palpitations, [...] relief, but was still having CP. 03/30/14 [facility] Left main: Free of angiographically significant disease. 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 I have not personally interviewed or examined this patient. Yusuf Herrera MD [employer] Install[employer] documented in this encounter Plan of Treatment Upcoming Encounters Date Type Department Care Team (Late st Contact Info) Description 05/09/2024 10:40 AM EDT Office Visit Cardiology at [address] [address] Herlinda Weaver PA [facility] [place] [address] documented as of this encounter Visit Diagnoses Not on filedocumented in this encounter Care Teams Tape Weaver Relationship Specialty Start Date End Date None None PCP - General 03/19/24 documented as of this encounter
--- OUTSIDE RECORDS SUMMARY | 2024-04-13 10:36 | XMS_ITS | Encounter Summary ---
Author Organization [facility] Address [facility] [place] [address] Care Team Providers Care Laboratory Equipment Installer Name Role Phone Pretty Avery MD Primary Care Provider [phone] Reason for Visit * Reason Comments Basal Cell Carcinoma * Consultation (Routine) - Closed Specialty Diagnoses / Procedures Referred By Contac t Referred To Contact Dermatology Diagnoses skin lesion lower back, basel cell ca Isa Estrada MD [address] [place] [address] [facility] Dermatology [address] [place] [address] Referral ID Status Reason Start Date Expiration Date V isits Requested Visits Authorized [id number] Closed [facility] 12/17/2015 12/16/2016 1 1 Encounter Details Date Type Department Care Team (Late st Contact Info) Description 12/19/2015 2:30 PM EDT Office Visit Dermatology at [facility] [address] [place] [address] Lisa Candelario MD [facility] [place] [address] Superficial basal cell carcinoma; Seborrheic [...] or concerns, please call the office at [phone]. If it is after 5PM, or a holiday or weekend, please call [phone] and ask for the Tie Man on-call. documented in this encounter Progress Notes [...] of the documentation in this encounter. Lisa Candelaroi MD Section of Dermatology [facility] documented in this encounter Plan of Treatment Upcoming Encounters Date Type Department Care Team (Late st Contact Info) Description 05/09/2024 10:40 AM EDT Office Visit Cardiology at [address] [address] Herlinda Weaver PA [facility] [place] [address] documented as of this encounter Visit Diagnoses Diagnosis Superficial basal cell carcinoma Basal cell carcinoma of skin, site unspecified Seborrheic keratosis Other seborrheic keratosis documented in this encounter Care Teams Laboratory Equipment Installer Relationship Specialty Start Date End Date Pretty Avery MD [address] [place] [address] PCP - General 08/06/10 03/18/24 documented as of this encounter
--- OUTSIDE RECORDS SUMMARY | 2024-04-13 10:36 | XMS_ITS | Encounter Summary ---
Author Organization [facility] [place] [address] Care Team Providers Care Sorter Operator Name Role Phone None Primary Care Provider Unavailabl e Reason for Visit * Auth/Cert (Routine) Specialty Diagnoses / Procedures Referred By Contac t Referred To Contact Diagnoses Acute ST elevation myocardial infarction (STEMI) due to occlusion of left anterior descending (LAD) coronary artery stemi Procedures EMERGENCY IPI Destin Ambrosio MD [facility] [place] [address] [facility] Referral ID Status Reason Start Date Expiration Date Visits Re quested Visits Authorized [id number] 1 1 Encounter Details Date Type Department Care Team (Late st Contact Info) Description 03/19/2024 1:05 AM EDT - 03/19/2024 2:06 [place] [address] Ramo Roy MD [facility] [place] [address] CARDIAC CATHETERIZATION Social History Tobacco Use Types Packs/Day Years Used Date Smoking Tobacco: Former Smokeless Tobacco: Never Alcohol Use Standard Drinks/Week Comments Yes 14 (1 standard drink = 0.6 oz pu re alcohol) [facility] Inpatient Questions Answer Date Recorded Does [...] 11:41 AM EDT Discharge Summary Patient Name: Ias Ro Patient Age: 59 y.o. Language: Lithuanian Race: White Ethnicity: Not nor Admit date: [...] hypoxemic and hypercapnic respiratory failure in the cath laboratory technician, potentially also due to sedation. Patient [...] given mildly reduced LVEF [ ] f/u [facility] cardiology scheduled. [facility] cardiology referral sent Inpatient Provider Contact Information: Kathryn Walker MD [phone] For questions regarding this document or issues relating to this hospitalization on the Medical Service, please contact your inpatient physician through the [facility] Regional Flatbed Truck Driver . Issues afterhours and on weekends will [...] 03/19/2024 8:37 AM) Result Value WORKSTATION ID [id number] Narrative EXAMINATION: XR CHEST ONE VIEW CLINICAL [...] who have questions please contact the health childcare director that requested your imaging first. Cardiac Catheterization (Exam End: 03/19/2024 1:36 AM) Narrative [facility] Cardiac Catheterization/Intervention Report Patient Name: Isa Ro Procedure Date: 03/19/2024 A #: [id number] Primary Physician: Ramo Roy Case #: [id number] File Name: [id number] Catheterization Order Number: [id number] [facility] Final Report [place], [place] Patient Name: Isa Ro ID#: [id number] : 1965 Procedure Date: March 19, 2024 [...] was designated as ASA Class IV. The [facility] clinical frailty scale is 3: Managing Well. Diagnostic Tests: Prior Coronary Angiography: Prior coronary angiography was performed on 12/15/2014. Electrocardiography: EKG was assessed by ECG. EKG was Abnormal. EKG showed ST Deviation >= 0.5 mm and other abnormality. Medications Prior to Procedure: Aspirin. Indications for Diagnostic Cath: The priority of the diagnostic procedure was Emergent. The indication for the cath laboratory technician visit is ACS less than or [...] 3.5 guiding catheter and a 3.5 Fr [facility] 20 Mhz using auto 1 mm/sec pullback. [...] priority for the procedure was Emergent. The [facility] indication for the procedure was STEMI-Immediate [...] A premounted 3.00 x 08 mm Alberto Sunburst (JAHAIRA) was deployed with a maximum inflation pressure of 12 atmospheres. Another stent insertion was accomplished through a 6 Fr. EBU 3.5 guide. A premounted 2.00 x 08 mm Alberto Sunburst (JAHAIRA) was deployed. The final outcome was [...] administered prior to arrival in the cath laboratory technician. Recommended anti-platelet/anti-thrombotic regimen: Start aspirin 81 mg daily now and continue for indefinitely. Start clopidogrel 75 mg daily now and continue for 12 months then stop. These recommendations are made at the time of the intervention. Patient and provider preferences or a changing clinical situation may require modification of this regimen. Consult [facility] Interventional Cardiology for questions. The 1 year [...] against any medical treatment. Consult http://tools.acc.org/DAPTriskapp/#!/content/calculator/ or [facility] Interventional Cardiology for questions Conclusions: * One [...] decreased and new wall motion abnormalities. Procedure Complete-53447. Image enhancement Definity was used for left [...] LAD in 03/2014, HLD, who presented to [facility] with chest pain. She developed chest pain around 2100 on 03/18 which prompted her to call EMS. She was given 325mg of aspirin and nitroglycerin. On arrival to [facility], she was found to have an EKG suggestive of anterior STEMI for which she was given half dose TNKfor systemic lysis prior to speaking with Dr. Herrera, on-call electric container tester at [facility]. She was subsequently transferred directly to the [facility] cath laboratory technician where coronary angiography revealed a 100% [...] Stay on the phone. The emergency black oxide operator will tell you what to do. [...] of 8AM-5PM please call the Cardiology Clinic [phone] to speak with a nurse. All other hours please call the Hospital Regional Flatbed Truck Driver [phone] and ask to speak to the cardiovascular hospitalist on-call. Return to work: One week Follow up Appointments: Doctor Where Phone # Date Time PCP MELECIO Polanco [address] [place] [address] 880 04/04/24 7:55 AM High Pressure Cleaner Herlinda Weaver PA-C [facility] Cardiology 4A Clinic [phone] 05/09/24 10:40 AM (pleasearrive by 10:20 AM) *A referral has also been placed to [facility] cardiology, though you will need to follow-up with them regarding scheduling appointments at [phone] General Instructions None Future Appointments and Orders Future Appointments and Orders Future Appointments Provider Department Dept Phone 05/09/2024 10:40 AM Herlinda Weaver PA Cardiology at [facility] Arrive at: Check Airman Area [phone] Future Orders Complete By Expires Referral to Cardiac Rehab [CPK275 Custom] As directed Process Instructions: If no progress note charted, please enter Clinical details in comments. Scheduling Instructions: Questions: My question or request is: s/p STEMI- cardiac rehab at [facility] Referral to Cardiology [REF12 Custom] As directed Process Instructions: If no progress note charted, please enter Clinical details in comments. Scheduling Instructions: Questions: My question or request is: s/p STEMI Discharge References/Attachments None Greater than 30 minutes was spent on this discharge including documentation, [id number] time withthe patient, patient education, order caller, coordination with pharmacy and other patient care. [...] Stay on the phone. The emergency black oxide operator will tell you what to do. [...] cardiac rehab has also been placed to [facility]. Call your doctor if: Chest pain, dyspnea, pain or swelling in legs occurs, or for weight gain of 2 pounds overnight or 5pounds in 5 days. If you have non-emergent questions, prior to your follow-up visit call: Thursday-Thursday between the hours of 8AM-5PM please call the Cardiology Clinic [phone] to speak with a nurse. All other hours please call the Hospital Regional Flatbed Truck Driver [phone] and ask to speak to the cardiovascular hospitalist on-call. Return to work: One week Follow up Appointments: Doctor Where Phone # Date Time PCP MELECIO Polanco [address] [place] [address] 04/04/24 7:55 AM High Pressure Cleaner Herlinda Weaver PA-C [facility] Cardiology 4A Clinic [phone] 05/09/24 10:40 AM (pleasearrive by 10:20 AM) *A referral has also been placed to [facility] cardiology, though you will need to follow-up with them regarding scheduling appointments at [phone] documented in this encounter Medications at Time [...] agreed to participate in cardiac rehab at [facility] following discharge Review of Systems: Review [...] to have resulted in hypoxemia in the cath laboratory technician. She was also a bit hypercapnic [...] pt re: Losartan/GDMT consideration -Cardiac Rehab at [facility] following discharge -Telemonitoring x72 hours -Plan for discharge tomorrow -Cardiology appointment scheduled 05/09/2024 at 10:40 AM t [facility] #Significant HLD -LDL 324 -Atorvastatin 80mg daily -May need additional agents for control #Hx GERD -Famotidine 20mg daily Horace Hancock MD 03/21/2024 * Horace Hancock MD - 03/20/2024 10:42 AM EDT Inpatient Cardiology Progress Note Patient Name: Ias Ro Service: CV2 Responsible Attending: Horace Hancock [...] to have resulted in hypoxemia in the cath laboratory technician. She was also a bit hypercapnic [...] 03/19/2024 8:20 PM EDTSummary: Chest Pain Patient section hand helper light c/o chest pain 11/21. I [...] Mcbride MD - 03/19/2024 2:50 AM EDT [facility] TeleICU Initial Assessment Note I established audio/visual communication with the patient's room, reviewed the eDH. History and Assessment: 59 yo F transferred from [facility] for a STEMI alert. Received [...] BiPAP started Following procedure, transferred to [facility] - able to be weaned to [facility] [...] 10:00 PM Hospital to which patient presented: [facility] Hospital to which patient presented= [facility]: ED via EMS Date and Time of [...] Not contraindicated Plan STEMI Alert called: Yes Tso Activated by: Side Stitching Machine Operator Initial Disposition: Admit Tso documented in this encounter H&P Notes * [...] to LAD in 03/2014, HLD,who presented to [facility] with chest pain. She developed chest pain around 2100 on 03/18 which prompted her to call EMS. She was given 325mg of aspirin and nitroglycerin. On arrival to [facility], she was found to have an EKG suggestive of anterior STEMI for which she was given half dose TNK for systemic lysis prior to speaking with Dr. Herrera, on-call electric container tester at [facility]. She was subsequently transferred directly to the [facility] cath laboratory technician where coronary angiography revealed a 100% [...] to have resulted in hypoxemia in the cath laboratory technician. She was also a bit hypercapnic [...] Cardiopulmonary Resuscitation - Inpatient Ganesh Nguyen MD Side Stitching Machine Operator [id number] documented in this encounter [...] Care: Contact information for follow-up Cardiac Rehab, [facility] [address] [facility] [address] Cardiology, [facility] [address] [facility] [address] Transportation: family or friend will provide Functional [...] 03/21/2024 4:02 PM EDT Patient completed a [place] advance directive. Patient identified her sister Stacia [...] N/A ; Prescription Coverage: Yes Preferred Pharmacy: [facility] [address] [facility] [address] [place], [place] [address]way [address] [facility] [address] [id number] - [place], [place] - [address] [place] [address] [facility] [address] [facility] [address] [facility] - [place], [place] - [address] [facility] [address] [place] [address] Advance Care Planning: Attempt Cardiopulmonary Resuscitation - Inpatient <no information> -Advanced Directive: No, need to discuss (RS referral sent for AD discussion) Current Functional Ability: Assistive Person Functional Status Prior to Admission: Independent Home Environment: Others in the home: child(lucian), minor (lives with her 15yo son). Current Living Arrangements: home/apartment/condo. Accessibility Concerns:house with 3 floors and 2 [address]. Current DME: none [address] [facility] [address] Social & Family Supports: All names listed below confirmed with patient as current and correct Extended Emergency Contact Information [facility] [place] [facility] [place] Relation: Mother [...] to for AD discussion today. Registered Nurse Gutter Mouth Cutter / Last Picker will continue to follow patient???s progress and [...] in an outpatient cardiac rehabilitation program at [facility] was discussed. Patient agrees to a [...] Operative Note Patient Name: Isa Ro : [id number] MR#: [id number] Case Date: 03/19/2024 Surgeon: Surgeons and Role: [...] 10:40 AM EDT Office Visit Cardiology at [address] [address] Herlinda Weaver PA [facility] [place] [address] Scheduled Referrals Name Type Priority Associated Diagnoses [...] 5:06 AM EDT) Neutrophils % 71.6 % [facility] Neutr Abs (ANC) 8.34(H) 1.70 - 6.10 x10(3)/mc L [facility] Lymphocytes % 17.4 % [facility] Lymphocytes Abs 2.0 0.9 - 3.2 x10(3)/mc L [facility] Monocytes % 8.2 % [facility] Monocyte Abs 1.0(H) 0.3 - 0.9 x10(3)/mc L [facility] Eosinophils % 2.2 % [facility] Eosinophils Abs 0.3 0.0 - 0.4 x10(3)/mc L [facility] Basophils % 0.3 % [facility] Basophils Abs 0.0 0.0 - 0.1 x10(3)/mc L [facility] Immature Gran % 0.30 % [facility] Comment: Immature granulocytes(IG's)percentage and absolute count will include metamyelocytes, myelocytes, and promyelocytes. Blood smears from CBCs yielding IG's will be scanned manually for concordance. If this scan disagrees with the automated IG or if promyelocytes are noted, a manual differential will be performed. Lesia Gran Abs 0.03 0.00 - 0.04 x10(3)/[facility] Blood 03/22/2024 5:06 AM EDT 03/22/2024 5:12 AM EDT Narrative Resulting Agency Comment Spec In Lab Horace Hancock MD HEMATOLOGY ORDERABLE S [facility] [place] [address] * (ABNORMAL) Hemogram (03/22/2024 5:06 AM EDT) WBC 11.6(H) 4.0 - 9.5 x10(3)/[facility] LABORATORY RBC 4.80 4.00 - 5.21 x10(6)/[facility]ATORY Hemoglobin 13.5 11.7 - 15.5 g/dL [facility] Hematocrit 40.3 35.7 - 45.8 % [facility] MCV 84.0 82.6 - 94.4 fL [facility] MCH 28.1 27.1 - 32.0 pg [facility] MCHC 33.5 31.7 - 35.0 g/dL [facility] Platelets 232 145 - 357 x10(3)/[facility] LABORATORY RDWSD 42.2 37.0 - 46.0 [facility]ATORY RDWCV 13.5 11.5 - 14.1 % [facility] MPV 9.7 7.6 - 12.9 [facility] nRBC % Auto 0.0 % [facility] nRBC Abs Auto 0.000 0.000 - 0.000 x10(3)/mcL [facility] Blood 03/22/2024 5:06 AM EDT 03/22/2024 5:12 AM EDT Narrative Resulting Agency Comment Spec In Lab Horace Hancock MD HEMATOLOGY ORDERABLE S [facility] [place] [address] * Basic Metabolic Panel (non-fasting) (03/22/2024 5:06 AM EDT) Glucose Lvl 107 65 - 199 mg/dL [facility] Comment:Diabetes: >=200 mg/d L plus symptoms BUN 18 8 - 18 mg/dL [facility] Creatinine 0.87 0.70 - 1.20 mg/dL [facility] Sodium 138 135 - 145 mmol/L [facility] Potassium 4.1 3.5 - 5.0 mmol/L [facility] Comment: Please note: ??Patients with WBC >100,000 may have falsely elevated Potassium levels. ??For accurate Potassium quantification in these patients send serum separator tube (gold top) for subsequent determinations. ??Contact the Clinical Chemistry Laboratory if there are any questions. Chloride 104 98 - 107 mmol/L [facility] CO2 24 22 - 31 mmol/L [facility] Anion Gap 10 5 - 15 mmol/L [facility] Calcium 9.2 8.5 - 10.5 mg/dL [facility] Estimated GFR 76 >=60 mL/min/1. 73 m?? [facility] Comment: This patient's estimated [...] CHEMISTRY ORDERABLES Performing Organization Address City/[facility]/ZIP Co de Phone Number [facility] [place] [address] * Magnesium (03/22/2024 5:06 AM EDT) Magnesium 0.90 0.69 - 1.07 mmol/L [facility] Blood 03/22/2024 5:06 AM EDT 03/22/2024 5:12 AM EDT Narrative Resulting Agency Comment Spec In Lab Destin Ambrosio MD CHEMISTRY ORDERABLES Performing Organization Address City/[facility]/ZIP Co de Phone Number [facility] [place] [address] * (ABNORMAL) Differential, Automated (03/21/2024 2:57 AM EDT) Neutrophils % 63.0 % [facility] Neutr Abs (ANC) 6.70(H) 1.70 - 6.10 x10(3)/mc L [facility] Lymphocytes % 24.9 % [facility] Lymphocytes Abs 2.6 0.9 - 3.2 x10(3)/mc L [facility] Monocytes % 8.7 % [facility] Monocyte Abs 0.9 0.3 - 0.9 x10(3)/mc L [facility] Eosinophils % 2.8 % [facility] Eosinophils Abs 0.3 0.0 - 0.4 x10(3)/mc L [facility] Basophils % 0.3 % [facility] Basophils Abs 0.0 0.0 - 0.1 x10(3)/ L [facility] Immature Gran % 0.30 % [facility] Comment: Immature granulocytes(IG's)percentage and absolute count will include metamyelocytes, myelocytes, and promyelocytes. Blood smears from CBCs yielding IG's will be scanned manually for concordance. If this scan disagrees with the automated IG or if promyelocytes are noted, a manual differential will be performed. Lesia Gran Abs 0.03 0.00 - 0.04 x10(3)/ L [facility] Blood 03/21/2024 2:57 AM EDT 03/21/2024 3:03 AM EDT Narrative Resulting Agency Comment Spec In Lab Horace Hancock MD HEMATOLOGY ORDERABLE S Performing Organization Address City/State/[facility] Co de Phone Number [facility] [place] [address] * (ABNORMAL) Hemogram (03/21/2024 2:57 AM EDT) WBC 10.6(H) 4.0 - 9.5 x10(3)/[facility] LABORATORY RBC 4.54 4.00 - 5.21 x10(6)/[facility] Hemoglobin 12.8 11.7 - 15.5 g/dL [facility] Hematocrit 38.2 35.7 - 45.8 % [facility] MCV 84.1 82.6 - 94.4 fL [facility] MCH 28.2 27.1 - 32.0 pg [facility] MCHC 33.5 31.7 - 35.0 g/dL [facility] Platelets 242 145 - 357 x10(3)/[facility] LABORATORY RDWSD 42.4 37.0 - 46.0 fL [facility] RDWCV 13.7 11.5 - 14.1 % [facility] MPV 9.5 7.6 - 12.9 fL [facility] nRBC % Auto 0.0 % [facility] nRBC Abs Auto 0.000 0.000 - 0.000 x10(3)/mcL [facility] Blood 03/21/2024 2:57 AM EDT 03/21/2024 3:03 AM EDT Narrative Resulting Agency Comment Spec In Lab Horace Hancock MD HEMATOLOGY ORDERABLE S [facility] [place] [address] * Basic Metabolic Panel (non-fasting) (03/21/2024 2:57 AM EDT) Glucose Lvl 98 65 - 199 mg/dL [facility] Comment:Diabetes: >=200 mg/d L plus symptoms BUN 15 8 - 18 mg/dL [facility] Creatinine 0.82 0.70 - 1.20 mg/dL [facility] Sodium 144 135 - 145 mmol/L [facility] Potassium 4.2 3.5 - 5.0 mmol/L [facility] Comment: Please note: ??Patients with WBC >100,000 may have falsely elevated Potassium levels. ??For accurate Potassium quantification in these patients send serum separator tube (gold top) for subsequent determinations. ??Contact the Clinical Chemistry Laboratory if there are any questions. Chloride 107 98 - 107 mmol/L [facility] CO2 25 22 - 31 mmol/L [facility] Anion Gap 12 5 - 15 mmol/L [facility] Calcium 9.2 8.5 - 10.5 mg/dL [facility] Estimated GFR 82 >=60 mL/min/1. 73 m?? [facility] Comment: This patient's estimated [...] CHEMISTRY ORDERABLES Performing Organization Address City/[facility]/ZIP Co de Phone Number [facility] [place] [address] * Magnesium (03/21/2024 2:57 AM EDT) Magnesium 0.91 0.69 - 1.07 mmol/L [facility] Blood 03/21/2024 2:57 AM EDT 03/21/2024 3:03 AM EDT Narrative Resulting Agency Comment Spec In Lab Destin Ambrosio MD CHEMISTRY ORDERABLES Performing Organization Address [facility] Co de Phone Number [facility] [place] [address] * Metanephrines, Fractionated Free, plasma (03/21/2024 2:57 AM EDT) Normetane Free 0.47 <0.90 nmol/L [facility] Comment: Test Performed by: [facility] - [address] [address] Terminologist: Chasity Hernandez Ph.D.; CLIA# [id number] Metanephr Free <0.20 <0.50 nmol/L [facility] Comment: ADDITIONAL INFORMATION This test was developed and its performance characteristics determined by [facility] in a manner consistent with CLIA requirements. This test has not been cleared or approved by the U.S. Food and Drug Administration. Test Performed by: [facility] - [facility] [address] [place] [address] Terminologist: Chasity Hernandez Ph.D.; CLIA# [id number] Blood 03/21/2024 2:57 AM EDT 03/21/2024 11:29 AM EDT Narrative Resulting Agency Comment Spec In Lab Horace Hancock MD CHEMISTRY ORDERABLES Performing Organization Address City/[facility]/ZIP Co de Phone Number [facility] [place] [address] * Iron and TIBC (03/20/2024 10:38 AM EDT) Pathologist [facility] Iron 57 30 - 150 mcg/dL [facility] TIBC 278 250 - 450 mcg/dL [facility] Iron Saturation 21 20 - 50 % [facility] Blood Venous Draw / Unknown 03/20/2024 10:38 AM EDT 03/20/2024 10:52 AM EDT Narrative Resulting Agency Comment Spec In Lab Horace Hancock MD CHEMISTRY ORDERABLES Performing Organization Address City/[facility] Co de Phone Number [facility] [place] [address] * (ABNORMAL) Differential, Automated (03/20/2024 10:38 AM EDT) [facility] Neutrophils % 73.1 % [facility] Neutr Abs (ANC) 9.60(H) 1.70 - 6.10 x10(3)/mc L [facility] Lymphocytes % 17.3 % [facility] Lymphocytes Abs 2.3 0.9 - 3.2 x10(3)/mc L [facility] Monocytes % 7.5 % [facility] Monocyte Abs 1.0(H) 0.3 - 0.9 x10(3)/mc L [facility] Eosinophils % 1.5 % [facility] Eosinophils Abs 0.2 0.0 - 0.4 x10(3)/[facility]OR[facility] Basophils % 0.3 % [facility] Basophils Abs 0.0 0.0 - 0.1 x10(3)/[facility] LABORATORY Immature Gran % 0.30 % [facility] Comment: Immature granulocytes(IG's)percentage and absolute count will include metamyelocytes, myelocytes, and promyelocytes. Blood smears from CBCs yielding IG's will be scanned manually for concordance. If this scan disagrees with the automated IG or if promyelocytes are noted, a manual differential will be performed. Lesia Gran Abs 0.04 0.00 - 0.04 x10(3)/[facility] LABORATORY Blood 03/20/2024 10:3 8 AM EDT 03/20/2024 10:47 AM EDT Narrative Resulting Agency Comment Spec In Lab Horace Hancock MD HEMATOLOGY ORDERABLE S [facility] [place] [address] * (ABNORMAL) Hemogram (03/20/2024 10:38 AM EDT) WBC 13.2(H) 4.0 - 9.5 x10(3)/[facility] LABORATORY RBC 4.66 4.00 - 5.21 x10(6)/[facility] LABORATORY Hemoglobin 13.0 11.7 - 15.5 g/dL [facility] Hematocrit 38.7 35.7 - 45.8 % [facility] MCV 83.0 82.6 - 94.4 fL [facility] MCH 27.9 27.1 - 32.0 pg [facility] MCHC 33.6 31.7 - 35.0 g/dL [facility] Platelets 238 145 - 357 x10(3)/[facility] LABORATORY RDWSD 41.7 37.0 - 46.0 fL [facility] RDWCV 13.8 11.5 - 14.1 % [facility] MPV 9.8 7.6 - 12.9 fL [facility] nRBC % Auto 0.0 % [facility] nRBC Abs Auto 0.000 0.000 - 0.000 x10(3)/mcL [facility] Blood 03/20/2024 10:3 8 AM EDT 03/20/2024 10:47 AM EDT Narrative Resulting Agency Comment Spec In Lab Horace Hancock MD HEMATOLOGY ORDERABLE S Performing Organization Address City/[facility]/ZIP Co de Phone Number [facility] [place] [address] * Magnesium (03/20/2024 10:38 AM EDT) Magnesium 0.88 0.69 - 1.07 mmol/L [facility] Blood 03/20/2024 10:3 8 AM EDT 03/20/2024 10:47 AM EDT Narrative Resulting Agency Comment Spec In Lab Horace Hancock MD CHEMISTRY ORDERABLES Performing Organization Address City/[facility]/ZIP Co de Phone Number [facility] [place] [place] [address] * Basic Metabolic Panel (non-fasting) (03/20/2024 10:38 AM EDT) Glucose Lvl 108 65 - 199 mg/dL [facility] Comment:Diabetes: >=200 mg/d L plus symptoms BUN 11 8 - 18 mg/dL [facility] Creatinine 0.82 0.70 - 1.20 mg/dL [facility] Sodium 137 135 - 145 mmol/L [facility] Potassium 4.3 3.5 - 5.0 mmol/L [facility] Comment: Please note: ??Patients with WBC >100,000 may have falsely elevated Potassium levels. ??For accurate Potassium quantification in these patients send serum separator tube (gold top) for subsequent determinations. ??Contact the Clinical Chemistry Laboratory if there are any questions. Chloride 101 98 - 107 mmol/L [facility] CO2 22 22 - 31 mmol/L [facility] Anion Gap 14 5 - 15 mmol/L [facility] Calcium 9.0 8.5 - 10.5 mg/dL [facility] Estimated GFR 82 >=60 mL/min/1. 73 m?? [facility] Comment: This patient's estimated [...] Hancock MD CHEMISTRY ORDERABLES Performing Organization Address [facility]/ZIP Co de Phone Number [facility] [place] [address] * Magnesium (03/19/2024 11:01 PM EDT) Magnesium 0.96 0.69 - 1.07 mmol/L [facility] Blood Venous Draw / Unknown 03/19/2024 11:01 PM EDT 03/19/2024 11:06 PM EDT Narrative Resulting Agency Comment Spec In Lab Horace Hancock MD CHEMISTRY ORDERABLES Performing Organization Address City/[facility]/ZIP Co de Phone Number [facility] [place] [address] * (ABNORMAL) Troponin (03/19/2024 11:01 PM EDT) Troponin-T HS 2,406(H) <=14 ng/L [facility] Comment: This patient's troponin [...] troponin value can be found in the [facility] Test Catalog Troponin - [facility] Test Catalog Reference: Fourth [place] Definition of Myocardial Infarction. Journal of the [place] 2018;72:0425-5508 Blood 03/19/2024 11:0 1 PM EDT 03/19/2024 11:05 PM EDT Narrative Resulting Agency Comment Spec In Lab Franky Mead MD CHEMISTRY ORDERABLE S [facility] [place] [address] * (ABNORMAL) Troponin (03/19/2024 8:40 PM EDT) Troponin-T HS 2,586(H) <=14 ng/L [facility] Comment: This patient's troponin [...] troponin value can be found in the [facility] Test Catalog Troponin - [facility] Test Catalog Reference: Fourth [place] Definition of Myocardial Infarction. Journal of the [place] 2018;72:5159-1438 Blood 03/19/2024 8:40 PM EDT 03/19/2024 8:45 PM EDT Narrative Resulting Agency Comment Spec In Lab Ganesh Nguyen MD CHEMISTRY ORDERAB LES [facility] [place] [address] * EKG 12 Lead (03/19/2024 8:32 PM EDT) Ventricular rate 70 BPM MUSE SYSTEM Atrial Rate 70 BPM MUSE SYSTEM P-R Interval 158 ms MUSE SYSTEM QRS Duration 78 ms MUSE SYSTEM Q-T Interval 470 ms MUSE SYSTEM QTC Calculated (Bezet) 507 ms MUSE SYSTEM Calculated P [place] 62 degrees MUSE SYSTEM Calculated R [place] 42 degrees MUSE SYSTEM Calculated T [place] -158 degrees MUSE SYSTEM INTERPRETATION Normal sinus rhythm Poor R wave progression T wave abnormality, consider lateral ischemia Prolonged QT Abnormal ECG When compared with ECG of 19-MAR-2024 17:27, No significant change was found Confirmed by MD Hebert, Destin ([id number]) on 03/23/2024 8:10:58 AM MUSE SYSTEM 03/19/2024 [...] (Bezet) 496 ms MUSE SYSTEM Calculated P [place] 80 degrees MUSE SYSTEM Calculated R [place] 87 degrees MUSE SYSTEM Calculated T [place] -96 degrees MUSE SYSTEM INTERPRETATION Normal sinus rhythm T wave abnormality, consider lateral ischemia Prolonged QT Abnormal ECG When compared with ECG of 19-MAR-2024 02:23, Non-specific change in ST segment in Anterior leads T wave inversion more evident in Inferior leads T wave inversion now evident in Anterolateral leads Confirmed by MD Ambrosio David ([id number]) on 03/23/2024 8:10:45 AM MUSE SYSTEM 03/19/2024 5:27 PM EDT 03/23/2024 8:10 AM EDT Unknown ECG ORDERABLES MUSE SYSTEM * (ABNORMAL) Troponin (03/19/2024 2:45 PM EDT) Pathologist [facility] Troponin-T HS 3,792(H) <=14 ng/L [facility] Comment: This patient's troponin [...] troponin value can be found in the [facility] Test Catalog Troponin - [facility] Test Catalog Reference: Fourth [place] Definition of Myocardial Infarction. Journal of the [place] 2018;72:0995-6487 Blood 03/19/2024 2:45 PM EDT 03/19/2024 2:54 PM EDT Narrative Resulting Agency Comment Spec In Lab Horace Hancock MD CHEMISTRY ORDERABLES [facility] [place] [place] [address] * ECHO COMPLETE W CONTRAST (03/19/2024 10:53 AM EDT) Anatomical Region Laterality Modality Cardiac Other 03/19/2024 9:03 AM EDT Narrative 03/19/2024 12:12 PM [place]T [address] [place] [address] ? Echocardiogram Report Name: ISA RO ?Study Date: 03/19/2024 09:03 AMBP: 129/68 mmHg ? Patient Location: 4A : 1965 ? Height: 158 cm ? Account: [id number] Age: 59 yrs ? Weight: 57 kg Gender: Female ?BSA: 1.6 m2 Ordering Physician: GANESH NGUYEN Referring Physician: GANESH NGUYEN Performed By: PEREZ Carlos Reason For Study: STEMI involving LAD Exam Location: [facility]. Interpretation Summary Normal left ventricle size with mildly reduced LV function. LV ejection fraction 49%. LAD territory wall motion abnormality, predominantly involving the LV apex. No LV thrombus visualized with echo contrast. Normal right ventricle. No significant valvular abnormalities. Compared with prior echo dated 08/28/23, LV function has now decreased and new wall motion abnormalities. Procedure Complete-[id number]. Image enhancement Definity was used for left [...] Note Destin Ambrosio MD - 03/19/2024 [address] [place] [address] Echocardiogram Report Name: ISA RO Study Date: 409:03 AMBP: 129/68 mmHg Patient Location: : 1965 Height: 158 cm Account: [id number] Age: 59 yrs Weight: 57 kg Gender: Female BSA: 1.6 m2 Ordering Physician: GANESH NGUYEN Referring Physician: GANESH NGUYEN Performed By: PEREZ Carlos Reason For Study: STEMI involving LAD Exam Location: [facility]. Interpretation Summary Normal left ventricle size with mildly reduced LV function. LV ejectionfraction 49%. LAD territory wall motion abnormality, predominantly involving the LVapex. No LV thrombus visualized with echo contrast. Normal right ventricle. No significant valvular abnormalities. Compared with prior echo dated 08/28/23, LV function has now decreased andnew wall motion abnormalities. Procedure Complete-[id number]. Image enhancement Definity was used for left [...] Chest One View (03/19/2024 8:37 AM EDT) AppSheet WORKSTATION ID [id number] DH RAD Anatomical Region Laterality Modality Chest [...] who have questions please contact the health childcare director that requested your imaging first. ? Electronically signed by: Isa Whitley MD, [facility] ??([phone]), at 03/19/2024 10:09 AM Narrative 03/19/2024 10:09 [...] patients who have questions please contactthe health childcare director that requested your imaging first. Electronically signed by: Isa Whitley MD, [facility]([phone]), at 03/19/2024 10:09 AM Delores Jett MD IMG DX ORDERABLES * Hemoglobin A1c (03/19/2024 5:25 AM EDT) Hemoglobin A1C 5.6 4.3 - 5.6 % [facility] Comment: Reference Range: 4.3 [...] Mellitus, Diabetes Care 2013; 36: Suppl. 1, C50-26 Est Avg Gluc 114 mg/dL [facility] Blood Venous Draw / Unknown 03/19/2024 5:25 AM EDT 03/19/2024 3:52 PM EDT Narrative Resulting Agency Comment Spec In Lab Horace Hancock MD CHEMISTRY ORDERABLES [facility] [place] [id number] * (ABNORMAL) Differential, Automated (03/19/2024 5:25 AM EDT) Neutrophils % 90.0 % [facility] Neutr Abs (ANC) 16.73(H) 1.70 - 6.10 x10(3)/ L [facility] Lymphocytes % 5.2 % [facility] Lymphocytes Abs 1.0 0.9 - 3.2 x10(3)/[facility] LABORATORY Monocytes % 4.2 % [facility] Monocyte Abs 0.8 0.3 - 0.9 x10(3)/ L [facility] Eosinophils % 0.0 % [facility] Eosinophils Abs 0.0 0.0 - 0.4 x10(3)/[facility] LABORATORY Basophils % 0.2 % [facility] Basophils Abs 0.0 0.0 - 0.1 x10(3)/ L [facility] Immature Gran % 0.40 % [facility] Comment: Immature granulocytes(IG's)percentage and absolute count will include metamyelocytes, myelocytes, and promyelocytes. Blood smears from CBCs yielding IG's will be scanned manually for concordance. If this scan disagrees with the automated IG or if promyelocytes are noted, a manual differential will be performed. Lesia Gran Abs 0.08(H) 0.00 - 0.04 x10(3)/mc L [facility] Blood 03/19/2024 5:25 AM EDT 03/19/2024 5:34 AM EDT Narrative Resulting Agency Comment Spec In Lab Ganesh Nguyen MD HEMATOLOGY ORDERA BLES Performing Organization Address City/[facility]/ZIP Co de Phone Number [facility] [place] [address] * (ABNORMAL) Hemogram (03/19/2024 5:25 AM EDT) WBC 18.6(H) 4.0 - 9.5 x10(3)/[facility] LABORATORY RBC 4.92 4.00 - 5.21 x10(6)/[facility] LABORATORY Hemoglobin 13.7 11.7 - 15.5 g/dL [facility] Hematocrit 40.6 35.7 - 45.8 % [facility] MCV 82.5(L) 82.6 - 94.4 [facility] LABORATORY MCH 27.8 27.1 - 32.0 pg [facility] MCHC 33.7 31.7 - 35.0 g/dL [facility] Platelets 285 145 - 357 x10(3)/[facility] LABORATORY RDWSD 41.1 37.0 - 46.0 [facility] LABORATORY RDWCV 13.6 11.5 - 14.1 % [facility] MPV 9.5 7.6 - 12.9 [facility] LABORATORY nRBC % Auto 0.0 % [facility] nRBC Abs Auto 0.000 0.000 - 0.000 x10(3)/[facility] LABORATORY Blood 03/19/2024 5:25 AM EDT 03/19/2024 5:34 AM EDT Narrative Resulting Agency Comment Spec In Lab Ganesh Nguyen MD HEMATOLOGY ORDERA BLES [facility] [place] [address] * Lipid Panel (Reflex Direct LDL) (03/19/2024 5:25 AM EDT) Chol, Total 324 mg/dL [facility] Comment: Desirable: ? <200 mg/dL Borderline High: 200-239 mg/dL Higher: ?>pc=690 mg/dL Triglycerides 200 mg/dL [facility] Comment: Normal: ?<150 mg/dL Borderline High: 150-199 mg/dL High: ?200-499 mg/dL Very High: ? >jh=485 mg/dL HDL 68 mg/dL [facility] Comment: Females: High Risk: <50 mg/dL Males: High Risk: <40 mg/dL LDL Cholesterol 216 mg/dL [facility] Comment: Desirable: ? <100 mg/dL Above Desirable: 100-129 mg/dL Borderline High: 130-159 mg/dL High: ?160-189 mg/dL Very High: ? >ba=603 mg/dL Lipid Interpretation See Note [facility] Comment: It is important [...] individuals with atherosclerotic cardiovascular disease (ASCVD)or LDL >pn=052 mg/dL, use a high-intensity statin (40-80 mg [...] Lab Ganesh Nguyen MD CHEMISTRY ORDERAB LES [facility] [place] [address] * (ABNORMAL) Troponin (03/19/2024 5:25 AM EDT) Troponin-T HS 1,276(H) <=14 ng/L [facility] Comment: This patient's troponin [...] troponin value can be found in the [facility] Test Catalog Troponin - [facility] Test Catalog Reference: Fourth [place] Definition of Myocardial Infarction. Journal of the [place] [employer] 2018;72:2268-2829 Blood 03/19/2024 5:25 AM EDT 03/19/2024 5:34 AM EDT Narrative Resulting Agency Comment Spec In Lab Ganesh Nguyen MD CHEMISTRY ORDERAB LES Performing Organization Address [facility] Co de Phone Number [facility] [place] [address] * APTT (03/19/2024 5:25 AM EDT) PTT 29 25 - 37 sec [facility] Comment: The PTT is NOT appropriate for heparin monitoring. Use the Anti-Xa level for heparin monitoring (HEP UFH) or LMWH monitoring (HEP LMW). A PTT less than 37 seconds generally indicates adequate hemostasis. Blood 03/19/2024 5:25 AM EDT 03/19/2024 5:34 AM EDT Narrative Resulting Agency Comment Spec In Lab Ganesh Nguyen MD HEMATOLOGY ORDERA BLES Performing Organization Address [facility] Co de Phone Number [facility] [place] [address] * Prothrombin Time (03/19/2024 5:25 AM EDT) PT 10.9 9.4 - 12.5 sec [facility] INR 1.[address] [facility] [...] Lab Ganesh Nguyen MD HEMATOLOGY ORDERA BLES [facility] [place] [address] * (ABNORMAL) Comprehensive metabolic panel (non-fasting) (03/19/2024 5:25 AM EDT) Glucose Lvl 181 65 - 199 mg/dL [facility] Comment:Diabetes: >=200 mg/d L plus symptoms BUN 14 8 - 18 mg/dL [facility] Creatinine 0.91 0.70 - 1.20 mg/dL [facility] Sodium 137 135 - 145 mmol/L [facility] Potassium 4.2 3.5 - 5.0 mmol/L [facility] Comment: Please note: ??Patients with WBC >100,000 may have falsely elevated Potassium levels. ??For accurate Potassium quantification in these patients send serum separator tube (gold top) for subsequent determinations. ??Contact the Clinical Chemistry Laboratory if there are any questions. Chloride 100 98 - 107 mmol/L [facility] CO2 22 22 - 31 mmol/L [facility] Anion Gap 15 5 - 15 mmol/L [facility] Calcium 8.7 8.5 - 10.5 mg/dL [facility] Total Protein 7.2 6.1 - 8.0 g/dL [facility] Albumin 4.5 3.2 - 5.2 g/dL [facility] AST 95(H) 0 - 30 unit/L [facility] Comment:result rechecked-bz ALT 31(H) 0 - 30 unit/L [facility] Alk Phos 70 35 - 105 unit/L [facility] Total Bilirubin 0.5 0.2 - 1.3 mg/dL [facility] Estimated GFR 72 >=60 mL/min/1. 73 m?? [facility] Comment: This patient's estimated [...] Lab Ganesh Nguyen MD CHEMISTRY ORDERAB LES [facility] [place] [address] * EKG 12 Lead (03/19/2024 2:23 AM EDT) Ventricular rate 67 BPM MUSE SYSTEM Atrial Rate 67 BPM MUSE SYSTEM P-R Interval 152 ms MUSE SYSTEM QRS Duration 78 ms MUSE SYSTEM Q-T Interval 500 ms MUSE SYSTEM QTC Calculated (Bezet) 528 ms MUSE SYSTEM Calculated P [place] 54 degrees MUSE SYSTEM Calculated R [place] 56 degrees MUSE SYSTEM Calculated T [place] 31 degrees MUSE SYSTEM INTERPRETATION Normal sinus rhythm Prolonged QT Abnormal ECG No previous ECGs available Confirmed by MD Ambrosio David ([id number]) on 03/23/2024 8:10:32 AM MUSE SYSTEM 03/19/2024 2:23 AM EDT 03/23/2024 8:10 AM EDT Ganesh Nguyen MD ECG ORDERABLES MUSE SYSTEM * (ABNORMAL) Differential, Automated (03/19/2024 2:20 AM EDT) Neutrophils % 89.8 % [facility] Neutr Abs (ANC) 15.44(H) 1.70 - 6.10 x10(3)/ L [facility] Lymphocytes % 6.4 % [facility] Lymphocytes Abs 1.1 0.9 - 3.2 x10(3)/[facility] LABORATORY Monocytes % 2.9 % [facility] Monocyte Abs 0.5 0.3 - 0.9 x10(3)/[facility] LABORATORY Eosinophils % 0.1 % [facility] Eosinophils Abs 0.0 0.0 - 0.4 x10(3)/[facility] LABORATORY Basophils % 0.3 % [facility] Basophils Abs 0.0 0.0 - 0.1 x10(3)/[facility] LABORATORY Immature Gran % 0.50 % [facility] Comment: Immature granulocytes(IG's)percentage and absolute count will include metamyelocytes, myelocytes, and promyelocytes. Blood smears from CBCs yielding IG's will be scanned manually for concordance. If this scan disagrees with the automated IG or if promyelocytes are noted, a manual differential will be performed. Lesia Gran Abs 0.08(H) 0.00 - 0.04 x10(3)/ L [facility] Blood 03/19/2024 2:20 AM EDT 03/19/2024 2:59 AM EDT Narrative Resulting Agency Comment Spec In Lab Ganesh Nguyen MD HEMATOLOGY ORDERA BLES [facility] [place] [address] * (ABNORMAL) Hemogram (03/19/2024 2:20 AM EDT) [facility] WBC 17.2(H) 4.0 - 9.5 x10(3)/[facility] LABORATORY RBC 4.70 4.00 - 5.21 x10(6)/[facility] LABORATORY Hemoglobin 13.3 11.7 - 15.5 g/dL [facility] Hematocrit 38.7 35.7 - 45.8 % [facility] MCV 82.3(L) 82.6 - 94.4 [facility] LABORATORY MCH 28.3 27.1 - 32.0 pg [facility] MCHC 34.4 31.7 - 35.0 g/dL [facility] Platelets 281 145 - 357 x10(3)/[facility] LABORATORY RDWSD 41.0 37.0 - 46.0 [facility]ORATORY RDWCV 13.7 11.5 - 14.1 % [facility] MPV 9.7 7.6 - 12.9 [facility] LABORATORY nRBC % Auto 0.0 % [facility] nRBC Abs Auto 0.000 0.000 - 0.000 x10(3)/[facility] LABORATORY Blood 03/19/2024 2:20 AM EDT 03/19/2024 2:59 AM EDT Narrative Resulting Agency Comment Spec In Lab Ganesh Nguyen MD HEMATOLOGY ORDERA BLES [facility] [place] [address] * (ABNORMAL) Troponin (03/19/2024 2:20 AM EDT) [facility] Troponin-T HS 960(H) <=14 ng/L [facility] Comment: This patient's troponin [...] troponin value can be found in the [facility] Test Catalog Troponin - [facility] Test Catalog Reference: Fourth [place] Definition of Myocardial Infarction. Journal of the [place] [employer] 2018;72:4774-6161 Blood 03/19/2024 2:20 AM EDT 03/19/2024 2:59 AM EDT Narrative Resulting Agency Comment Spec In Lab Ganesh Nguyen MD CHEMISTRY ORDERAB LES Performing Organization Address City/[facility]/ZIP Co de Phone Number [facility] [place] [address] * (ABNORMAL) APTT (03/19/2024 2:20 AM EDT) PTT 123(Criti lewis) 25 - 37 sec [facility] Comment: Critical Result called [...] ORDERA BLES Performing Organization Address City/[facility]/ZIP Co de Phone Number [facility] [place] [address] * Prothrombin Time (03/19/2024 2:20 AM EDT) PT 11.7 9.4 - 12.5 sec [facility] INR 1.[address] [facility] [...] Address [facility] de Phone Number [facility] [place] [address] * (ABNORMAL) Hepatic Function Panel (03/19/2024 2:20 AM EDT) Pathologist [facility] Total Protein 6.7 6.1 - 8.0 g/dL [facility] Albumin 4.3 3.2 - 5.2 g/dL [facility] AST 49(H) 0 - 30 unit/L [facility] ALT 26 0 - 30 unit/L [facility] Alk Phos 67 35 - 105 unit/L [facility] Total Bilirubin 0.4 0.2 - 1.3 mg/dL [facility] Bili, Direct 0.1 0.0 - 0.3 mg/dL [facility] Blood 03/19/2024 2:20 AM EDT 03/19/2024 2:59 AM EDT Narrative Resulting Agency Comment Spec In Lab Ganesh Nguyen MD CHEMISTRY ORDERAB LES [facility] [place] [address] * (ABNORMAL) pro-Brain Natriuretic Peptide (03/19/2024 2:20 AM EDT) ProBNP 529(H) <=124 pg/mL [facility] Blood 03/19/2024 2:20 AM EDT 03/19/2024 2:59 AM EDT Narrative Resulting Agency Comment Spec In Lab Ganesh Nguyen MD CHEMISTRY ORDERAB LES Performing Organization Address [facility] Co de Phone Number [facility] [place] [address] * Phosphorus (03/19/2024 2:20 AM EDT) Pathologist [facility] Phosphorus 3.8 2.5 - 4.5 mg/dL [facility] Blood 03/19/2024 2:20 AM EDT 03/19/2024 2:59 AM EDT Narrative Resulting Agency Comment Spec In Lab Ganesh Nguyen MD CHEMISTRY ORDERAB LES Performing Organization Address [facility] Co de Phone Number [facility] [place] [address] * Magnesium (03/19/2024 2:20 AM EDT) Pathologist [facility] Magnesium 0.71 0.69 - 1.07 mmol/L [facility] Blood 03/19/2024 2:20 AM EDT 03/19/2024 2:59 AM EDT Narrative Resulting Agency Comment Spec In Lab Ganesh Nguyen MD CHEMISTRY ORDERAB LES Performing Organization Address [facility] Co de Phone Number [facility] [place] [address] * (ABNORMAL) Basic Metabolic Panel (non-fasting) (03/19/2024 2:20 AM EDT) Glucose Lvl 160 65 - 199 mg/dL [facility] Comment:Diabetes: >=200 mg/d L plus symptoms BUN 14 8 - 18 mg/dL [facility] Creatinine 0.88 0.70 - 1.20 mg/dL [facility] Sodium 137 135 - 145 mmol/L [facility] Potassium 3.9 3.5 - 5.0 mmol/L [facility] Comment: Please note: ??Patients with WBC >100,000 may have falsely elevated Potassium levels. ??For accurate Potassium quantification in these patients send serum separator tube (gold top) for subsequent determinations. ??Contact the Clinical Chemistry Laboratory if there are any questions. Chloride 100 98 - 107 mmol/L [facility] CO2 20(L) 22 - 31 mmol/L [facility] Anion Gap 17(H) 5 - 15 mmol/L [facility] Calcium 8.2(L) 8.5 - 10.5 mg/dL [facility] Estimated GFR 75 >=60 mL/min/1. 73 m?? [facility] Comment: This patient's estimated [...] Lab Ganesh Nguyen MD CHEMISTRY ORDERAB LES [facility] [place] [address] * (ABNORMAL) Point of Care Blood Gas Historical (03/19/2024 1:41 AM EDT) POC pH 7.28(Criti lewis) 7.35 - 7.45 [facility] PCO2 40 35 - 45 mmHg [facility] PO2 84(L) 85 - 104 mmHg [facility] Base Excess -8.0(L) -3.0 - 3.0 mmol/L [facility] HCO3 18.6(L) 20.0 - 26.0 mmol/L [facility] TCO2 20(L) 22 - 31 mmol/L [facility] Sodium 134(L) 135 - 145 mmol/L [facility] Potassium 3.4(L) 3.5 - 5.0 mmol/L [facility] Ionized Ca 1.09(L) 1.15 - 1.33 mmol/L [facility] Hematocrit 38.0 34.0 - 45.0 % [facility] Calc Hgb 12.9 11.2 - 15.7 g/dL [facility] Blood 03/19/2024 1:41 AM EDT 03/19/2024 1:41 AM EDT Kathryn Walker MD CHEMISTRY ORDERABL ES Performing Organization Address City/State/[facility] Co de Phone Number [facility] [place] [address] * CARDIAC CATHETERIZATION (03/19/2024 1:36 AM EDT) Anatomical Region Laterality Modality Other Narrative 03/19/2024 7:19 AM EDT ?[facility] ? Cardiac Catheterization/Intervention Report ? Patient Name: Warnaar, Isa A. ? Procedure Date: 03/19/2024 ? A #: [id number] ? Primary Physician: Ramo Roy ? Case #: [id number] ? File Name: [id number] ? Catheterization Order Number: [id number] ? [facility] ? Final Report [place], [place] ? Patient Name: ? Isa A. Warnaar ? ID#: ?[id number] ? : ?1965 ? Procedure Date: ? March 19, 2024 ? Case #: ? [id number] ? Room: ? 6 ? Case Physician: [...] was Emergent. The indication for ?the cath laboratory technician visit is ACS less than or [...] ?3.5 guiding catheter and a 3.5 Fr [place] Eye [place] 20 Mhz using auto 1 ?mm/sec pullback. [...] ? A premounted 3.00 x 08 mm [place] Sunburst (JAHAIRA) was deployed ? with a maximum inflation pressure of 12 atmospheres. ? Another stent insertion was accomplished through a 6 Fr. EBU ? 3.5 guide. ??A premounted 2.00 x 08 mm Alberto Sunburst (JAHAIRA) was ? deployed. ? The final [...] administered prior to arrival in the cath laboratory technician. ?Recommended anti-platelet/anti-thrombotic regimen: ?Start aspirin 81 mg daily now and continue for indefinitely. ?Start clopidogrel 75 mg daily now and continue for 12 months then stop. ?These recommendations are made at the time of the intervention. Patient ?and provider preferences or a changing clinical situation may require ?modification of this regimen. Consult [facility] Interventional Cardiology for ?questions. ?The 1 year [...] against any medical treatment. Consult ?http://tools.acc.org/DAPTriskapp/#!/content/calculator/ or [facility] ?Interventional Cardiology for questions ? Conclusions: ?* [...] Procedure Note Ramo Roy MD - 03/21/2024 [facility] Cardiac Catheterization/Intervention Report Patient Name: Isa Ro Procedure Date: 03/19/2024 A #: [id number] Primary Physician: Ramo Roy Case #: [id number] File Name: [id number] Catheterization Order Number: [id number] [facility] FinalReport [place], [place] Patient Name: Isa Ro ID#:[id number] :1965 Procedure Date: March 19, 2024 Case [...] patientwas designated as ASA Class IV. The [facility] clinical frailty scale is 3: Managing Well. Diagnostic Tests: Prior Coronary Angiography: Prior coronary angiography was performed on 12/15/2014. Electrocardiography: EKG was assessed by ECG. EKG was Abnormal. EKG showed STDeviation >= 0.5 mm and other abnormality. Medications Prior to Procedure: Aspirin. Indications for Diagnostic Cath: The priority of the diagnostic procedure was Emergent. Theindication for the cath laboratory technician visit is ACS less than or [...] 3.5 guiding catheter and a 3.5 Fr [place] 20 Mhz usingauto 1 mm/sec pullback. Imaging [...] The priority for the procedure was Emergent.[facility] indication for the procedure was STEMI-Immediate PCI [...] The lesion was predilated with a 2.50mm [id number] MM balloon with a maximum inflation pressure of 14atmospheres. A premounted 3.00 x 08 mm [place] Sunburst (JAHAIRA) wasdeployed with a maximum inflation pressure of 12 atmospheres. Another stent insertion was accomplished through a 6 Fr.EBU 3.5 guide. A premounted 2.00 x 08 mm Alberto Sunburst (JAHAIRA)was deployed. The final outcome was defined [...] administered prior to arrival in the cath laboratory technician. Recommended anti-platelet/anti-thrombotic regimen: Start aspirin 81 mg daily now and continue for indefinitely. Start clopidogrel 75 mg daily now and continue for 12 months thenstop. These recommendations are made at the time of the intervention.Patient and provider preferences or a changing clinical situation mayrequire modification of this regimen. Consult [facility] Interventional Cardiologyfor questions. The 1 year bleeding [...] or against any medical treatment.Consult http://tools.acc.org/DAPTriskapp/#!/content/calculator/ or [facility] Interventional Cardiology for questions Conclusions: * One [...] POC pH 7.20(Criti lewis) 7.35 - 7.45 [facility] POC PCO2 38 35 - 45 mmHg [facility] POC PO2 74(L) 85 - 104 mmHg [facility] POC Base Excess -14.0(L) -3.0 - 3.0 mmol/L [facility] POC HCO3 14.5(L) 20.0 - 26.0 mmol/L [facility] POC TCO2 16(L) 22 - 31 mmol/L [facility] POC Sodium 116(Critic al) 135 - 145 mmol/L [facility] POC Potassium 3.1(L) 3.5 - 5.0 mmol/L [facility] POC Ionized Ca 1.04(L) 1.15 - 1.33 mmol/L [facility] POC Hematocrit 39.0 34.0 - 45.0 % [facility] POC Calc Hgb 13.3 11.2 - 15.7 g/dL [facility] Blood 03/19/2024 1:26 AM EDT 03/19/2024 1:26 AM EDT Kathryn Walker MD CHEMISTRY ORDERABL ES Performing Organization Address City/State/[facility] Co de Phone Number [facility] [place] [address] documented in this encounter Visit Diagnoses Not [...] Routine documented in this encounter Care Teams Sorter Operator Relationship Specialty Start Date End Date None None PCP - General 03/19/24 documented as of this encounter
--- OUTSIDE RECORDS SUMMARY | 2024-04-13 10:36 | XMS_ITS | Encounter Summary ---
Author Organization [facility] [place] [address] Care Team Providers Care Brusher And Shearer Name Role Phone Pretty Avery MD Primary Care Provider [phone] Encounter Details Date Type Department Care Team [...] AM EDT Office Visit Cardiology at [address] [address] Herlinda Weaver PA [facility] [place] [address] documented as of this encounter Visit Diagnoses Not on filedocumented in this encounter Care Teams Brusher And Shearer Relationship Specialty Start Date End Date Pretty Avery MD [address] [place] [address] PCP - General 08/06/10 03/18/24 documented as of this encounter
--- OUTSIDE RECORDS SUMMARY | 2024-04-13 10:36 | XMS_ITS | Encounter Summary ---
Author Organization [facility] [place] [address] Care Team Providers Care Director Special Education Name Role Phone Pretty Avery MD Primary Care Provider Encounter Details Date Type Department Care Team (Late st Contact Info) Description 12/08/2023 10:30 AM EDT Office Visit Dermatology at [facility] [address] [place] [address] Aylin Cole MD [facility] [place] [address] Skin cancer screening; Inflamed seborrheic keratosis; History [...] for FBSE otherwise PRN []Note routed to payroll secretary [x]Recall placed in scheduling system []Appointment scheduled at checkout Scribe attestation: Juliet Angulo [facility] has performed the documentation for this encounter in the presence of and acting as a scribe for Aylin Cole MD. I performed the above scribed service and agree with the accuracy of the documentation in this encounter. Reviewed and signed by: Aylin Cole MD Dermatology [facility] documented in this encounter Plan of Treatment Upcoming Encounters Date Type Department Care Team (Late st Contact Info) Description 05/09/2024 10:40 AM EDT Office Visit Cardiology at [address] [address] Herlinda Weaver PA [facility] [place] [address] documented as of this encounter Visit Diagnoses Diagnosis Skin cancer screening Screening for malignant neoplasm of the skin Inflamed seborrheic keratosis History of basal cell carcinoma (BCC) Seborrheic dermatitis Seborrheic dermatitis, unspecified Seborrheic keratoses Multiple benign nevi of upper extremity, lower extremity, and trunk Lentigines Other dyschromia Garcia angioma Nevus, non-neoplastic documented in this encounter Care Teams Director Special Education Relationship Specialty Start Date End Date Pretty Avery MD [address] [place] [address] PCP - General 08/06/10 03/18/24 documented as of this encounter
== END 2024-04-13 23:59 | disposition home or self-care (01) ==
LOC: CR 10:33
PROVIDERS: PCP Family Medicine; Visit Provider Internal Medicine Cardiovascular Disease
DX: I21.3 ST elevation (STEMI) myocardial infarction of unspecified site (principal); Z95.5 Presence of coronary angioplasty implant and graft
CPT/HCPCS: S9472

== ENCOUNTER 2024-04-20 11:11 | Inpatient (IN) | payer MEDICAID, SELFPAY ==
[2024-04-20] VITALS (83 sets, daily range): BP systolic 122–197; BP diastolic 58–88; PULSE 49–75; RESP 9–22; TEMP 36.4–36.6; O2SAT 93–100
--- NOTE | 2024-04-20 11:15 | RT.EKG_ITS ---
APPROVED REPORT Exam: Resting ECG Reason for Exam: chest discomfort Patient Location: E HR:54 bpm ECG Measurements Heart Rate 54 AXIS MS 140 P 19 QRSd 78 QRS 65 QT 484 T 156 QTc 461 Conclusion Sinus bradycardia...rate< 60 Low voltage, extremity leads...all extremity leads <0.5mV Abnrm T, probable ischemia, anterolateral lds...T <-0.50mV, I aVL V2-V6 Physician: no stemi, diffuse t wave inversion V1-V6, slightly more pronounced from [facility] e[facility]
[2024-04-20 11:47] LABS: Abs Immature Grans 0.04 10^3/uL (0.0-0.06); Absolute Basophil Count 0.04 10^3/uL (0.0-0.2); Absolute Eosinophil Count 0.21 10^3/uL (0.0-0.7); Absolute Lymphocyte Count 1.74 10^3/uL (1.2-3.4); Absolute Monocyte Count 0.57 10^3/uL (0.1-0.8); Absolute Neutrophil Count 5.96 10^3/uL (1.2-6.7); Basophils % 0.5 %; Eosinophils % 2.5 %; HCT 40.3 % (36.0-46.0); HGB 12.9 g/dL (11.2-15.7); Immature Grans % 0.5 %; Lymphocytes % 20.3 %; MCH 27.3 pg (27.0-33.0); MCV 85 fL (80-95); MPV 9.6 fL (8.0-11.0); Monocytes % 6.7 %; Neutrophils % 69.5 %; Platelet Count 242 10^3/uL (130-400); RBC 4.73 10^6/uL (3.93-5.22); RDW 13.1 % (11.7-14.6); RDW-SD 40.5 fL; WBC 8.56 10^3/uL (4.4-10.8)
--- NOTE | 2024-04-20 11:57 | DI.RAD_ITS ---
Exam(s) XR PORTABLE CHEST AP EXAM: XR PORTABLE CHEST AP CLINICAL HISTORY: sob. TECHNIQUE: 2D digital imaging was performed. COMPARISON: CR XR CHEST 2V PA LATERAL from 06/17/2021 FINDINGS: Single AP portable view. Heart size is upper normal. The mediastinum is not widened. Lungs are clear. No infiltrates nor obvious pleural effusions. IMPRESSION: No acute pulmonary findings on this single AP portable view of the chest. DATA REPOSITORY: RADIATION DOSE DELIVERED:
[2024-04-20] MEDS: Aspirin 81 MG CHEW 324 MG CH (12:00)
[2024-04-20 12:02] LABS: Prothrombin Time 10.1 sec (9.1-11.1)
[2024-04-20 12:15] LABS: NT-proBNP 1278 pg/mL (<300); Troponin I < 50 ng/L (< or =60)
--- NOTE | 2024-04-20 12:42 | W.ED.GENAD ---
Discharge Plan Discharge Details Chief Complaint: Chest Pain Primary Care Provider: Isa Estrada ED Provider: Tru Laurent Home Meds and New Rx's Prescriptions: No Action alprazolam [Xanax] 0.5 MG tablet 0.5 mg PO prn flying nitroglycerin [Nitrostat] 0.4 MG tablet, sublingual 0.4 mg Buccal ONCE acetaminophen [Tylenol Extra Strength] 500 MG tablet 500 mg PO PRN PRN ibuprofen [Advil] 200 MG tablet 1 tab PO PRN PRN Patient Comments: not taking 06/24/23 Emergen-C 1,000 mg Powder Effervescent In Packet 1 ea PO PRN PRN Home Made Herbal Tinctures 1 dose PO PRN PRN losartan 25 mg tablet 12.5 mg PO DAILY Patient Comments: not taking 06/24/23 omega-3 fatty acids Capsule 1 cap PO DAILY Rx Instructions: unknown dose cholecalciferol (vitamin D3) [Vitamin D3] 25 mcg (1,000 unit) Tablet 25 mcg PO DAILY Rx Instructions: PT unknown dose lidocaine 5 % cream 1 applic topical QID PRNQty: 15 1RF Rx Instructions: Apply to intact skin only and do not use on mucosal membranes rosuvastatin 40 mg tablet 40 mg PO DAILY Patient Comments: TAKE ONE TABLET BY MOUTH EVERY DAY metoprolol succinate 25 mg tablet extended release 24 hr 12.5 mg PO DAILY Patient Comments: TAKE ONE-HALF TABLET BY MOUTH NIGHTLY HPI General Date/Time Provider Initiated Documentation: 04/20/24 11:28. HPI Narrative: This is a pleasant 59-year-old female with a past medical history of cardiac disease, GERD, migraines, with known coronary artery disease was percutaneous intervention to the LAD in 2013 and then subsequent anterior STEMI 1 month ago with occluded proximal LAD and subsequent stent placement. She presents today for evaluation of chest pain. Patient states that for the last 3 days she has had a very slight twinge of chest pain in the left chest when walking. She describes it as a mild achiness. Usually gets better with rest. When she exerts herself she noticed it becomes more pronounced. She went to cardiac rehab today and while doing the exercise component had a return of the pain. She was given nitroglycerin which did slightly improve the symptoms but she also began resting at that time 2. She was brought to the ER for further assessment. She is on dual antiplatelet therapy, and has been taking this as directed. She continues to take her statin and beta-remigio. She denies any tearing or ripping sensation. She denies any pleuritic chest pain. She denies any numbness tingling or weakness. No cough fever or chills. No other complaints at this time. Related Data Home Medications ?Medication ?Instructions ?Recorded ?Confirmed acetaminophen 500 mg tablet 500 mg PO PRN PRN 07/27/15 04/20/24 (Tylenol Extra Strength) ibuprofen 200 mg tablet (Advil) 1 tab PO PRN PRN 08/26/15 04/20/24 alprazolam 0.5 mg tablet (Xanax) 0.5 mg PO prn flying 05/11/18 04/20/24 nitroglycerin 0.4 mg sublingual 0.4 mg buccal ONCE 05/11/18 04/20/24 tablet (Nitrostat) ascorbic acid 1,000 1 ea PO PRN PRN 06/15/18 04/20/24 gf-wmbkfsulcszu-mohijwyv powder effervescent pack (Emergen-C) Home Made Herbal Tinctures 1 dose PO PRN PRN 07/21/19 04/20/24 losartan 25 mg tablet 12.5 mg PO DAILY 06/05/21 09/29/23 cholecalciferol (vitamin D3) 25 25 mcg PO DAILY 06/17/21 04/20/24 mcg (1,000 unit) tablet (Vitamin D3) omega-3 fatty acids 1 cap PO DAILY 06/17/21 04/20/24 lidocaine 5 % topical cream 1 applic topical QID PRN #15 grams 09/19/23 04/20/24 metoprolol succinate 25 mg 12.5 mg PO DAILY 04/20/24 04/20/24 tablet,extended release 24 hr rosuvastatin 40 mg tablet 40 mg PO DAILY 04/20/24 04/20/24 Previous Rx's ?Medication ?Instructions ?Recorded lidocaine 5 % topical cream 1 applic topical QID PRN #15 grams 09/19/23 Allergies Allergy/AdvReac Type Severity Reaction Status Date / Time hydrochlorothiazide Allergy unknown Verified 04/20/24 11:34 lisinopril Allergy unknown Verified 04/20/24 11:34 dust Allergy Mild Itching Uncoded 04/20/24 11:34 mold Allergy Other (See Uncoded 04/20/24 11:34 Comment) General Stated Complaint: Chest Pain ZORAIDA: 2 Review of Systems All systems reviewed & are unremarkable except as noted in HPI and below Exam Narrative Exam Narrative: 1.Const: Well-nourished, Well-developed, appearing stated age 2.Eyes: PERRL, no conjunctival injection, and symmetrical lids. 3.ENT: Atraumatic external nose and ears. Moist MM. Neck: Symmetric, trachea midline, No thyromegaly. 4.CVS: +S1/S2, No murmurs or gallops. Peripheral pulses 2+ and equal in all extremities. Brisk capillary refill in all extremities. 5.RESP: Unlabored respiratory effort. Clear to auscultation bilaterally. No wheezes rales or rhonchi 6.GI: Soft, Nontender/Nondistended, No hepatosplenomegaly. No guarding or rebound. 7.MSK: Normocephalic/Atraumatic, Extremities w/o deformity or ttp No cyanosis or clubbing, Normal movement of all extremities 8.Skin: Warm, Dry. No rashes or lesions. 9.Neuro: local sales manager II-XII grossly intact. Sensation grossly intact, no focal neurologic deficits. 10.Psych: (AAO) x3. Appropriate mood and affect Course Vital Signs Vital signs: Vital Signs Temperature 36.6 C 04/20/24 11:18 Pulse 58 L 04/20/24 11:18 Respiratory Rate 17 04/20/24 11:18 Blood Pressure 171/68 H 04/20/24 11:18 Pulse Oximetry 98 04/20/24 11:18 Temperature 36.6 C 04/20/24 11:18 Temperature Source Skin 04/20/24 11:18 Pulse 58 L 04/20/24 11:18 Respiratory Rate 17 04/20/24 11:18 Blood Pressure 171/68 H 04/20/24 11:18 Blood Pressure Position Supine 04/20/24 11:18 Pulse Oximetry 98 04/20/24 11:18 Oxygen Delivery Method Room Air 04/20/24 11:18 Oxygen Flow Rate 0 04/20/24 11:18 Pain Level 2 04/20/24 11:18 Lab/Test Results Lab/Test Results: Laboratory Tests Range/Units 04/20/24 11:30 WBC (4.4-10.8) 10^3/uL 8.56 RBC (3.93-5.22) 10^6/uL 4.73 Hgb (11.2-15.7) g/dL 12.9 Hct (36.0-46.0) % 40.3 MCV (80-95) fL 85 MCH (27.0-33.0) pg 27.3 MCHC (32.0-36.0) % 32.0 RDW (11.7-14.6) % 13.1 Plt Count (130-400) 10^3/uL 242 MPV (8.0-11.0) fL 9.6 Immature Gran % % 0.5 Neutrophils % % 69.5 Lymphocytes % % 20.3 Monocytes % % 6.7 Eosinophils % % 2.5 Basophils % % 0.5 Nucleated RBC % (0.0-0.3) % 0.0 Absolute Neutrophils (1.2-6.7) 10^3/uL 5.96 Absolute Lymphocytes (1.2-3.4) 10^3/uL 1.74 Absolute Monocytes (0.1-0.8) 10^3/uL 0.57 Absolute Eosinophils (0.0-0.7) 10^3/uL 0.21 Absolute Basophils (0.0-0.2) 10^3/uL 0.04 PT (9.1-11.1) sec 10.1 INR (0.9-1.1) 1.0 APTT (23.6-32.8) sec 25.0 Troponin I (< or =60) ng/L < 50 NT-Pro-B Natriuret Pep (<300) pg/mL 1278 H Medical Decision Making This is a pleasant 59-year-old female with a past medical history of cardiac disease, GERD, migraines, with known coronary artery disease was percutaneous intervention to the LAD in 2013 and then subsequent anterior STEMI 1 month ago with occluded proximal LAD and subsequent stent placement. She presents today for evaluation of chest pain. Patient states that for the last 3 days she has had a very slight twinge of chest pain in the left chest when walking. She describes it as a mild achiness. Usually gets better with rest. When she exerts herself she noticed it becomes more pronounced. She went to cardiac rehab today and while doing the exercise component had a return of the pain. She was given nitroglycerin which did slightly improve the symptoms but she also began resting at that time 2. She was brought to the ER for further assessment. She is on dual antiplatelet therapy, and has been taking this as directed. She continues to take her statin and beta-remigio. She denies any tearing or ripping sensation. She denies any pleuritic chest pain. She denies any numbness tingling or weakness. No cough fever or chills. No other complaints at this time. Physical exam is unremarkable, EKG shows evidence of diffuse T wave inversions in V2 through V6 which compared to EKG performed at [facility] on March 19 demonstrates enhancement of the new T wave inversions. No evidence of STEMI. Symptoms are certainly concerning for unstable angina. We will get laboratory assessment, monitor closely and reassess. Will give her full dose aspirin. Chest pain is gone at this point, no need for additional nitro. 1:09 PM Laboratory workup shows a mildly elevated proBNP at 1200, troponin normal, no white count bandemia or left shift. Patient remains chest pain-free. Will continue to monitor closely and get 3-hour troponin. 5:06 PM Laboratory workup has returned, initial and repeat troponin are normal, repeat EKG remained stable. proBNP mildly elevated at 1200, no signs of overt CHF. Chest x-ray negative for acute process. Patient has developed some mild achiness, she was given nitroglycerin which made no change. Patient does feel that symptoms are muscular related, and does not feel that this is related to her heart as it feels notably different than previous episodes. Patient feels comfortable going home. However we are still waiting on [facility] consult and call back. Patient remains notably stable at this time and does not show evidence of acute life-threatening etiology. Patient will be signed out to my colleague Dr. Reji Joshua for follow-up with [facility]. FINDINGS: Single AP portable view. Heart size is upper normal. The mediastinum is not widened. Lungs are clear. No infiltrates nor obvious pleural effusions. IMPRESSION: No acute pulmonary findings on this single AP portable view of the chest. Quality:SDOH Health Related Social Needs: No Data to Display PFSH All Active Problems Abdominal bloating (Acute) RLQ abdominal pain (Acute) Recurrent epistaxis (Acute) ASCVD (arteriosclerotic cardiovascular disease) (Acute) Right flank pain (Acute) Hyperlipidemia (Chronic) GERD (gastroesophageal reflux disease) (Chronic) HTN (hypertension) with goal to be determined (Acute) Rash (Acute) Neck pain (Acute) Duodenitis (Acute) Chronic fatigue and malaise (Acute) Sciatica, unspecified side (Acute) Headache, post-traumatic (Acute) Pain, joint, shoulder, right (Acute) Migraine aura without headache (Chronic) Migraine headache with aura (Chronic) Disorder of vision (Acute 11/28/13) Difficulty speaking (Acute 11/28/13) Blurring of visual image (Acute 11/28/13) Change in bowel habits (Acute) Medical History Family history of colon cancer History of placement of stent in LAD coronary artery 03/2014 [facility] No-show for appointment Preventative health care Constipation Hypertension Abdominal pain Asthma, exercise induced Tick bite Hypothyroidism Dysphagia Surgical History H/O colonoscopy (06/18/18) vini Burrows, repeat in 10 years History of esophagogastroduodenoscopy (EGD) (06/18/18) vini Burrows, repeat PRN History of History of coronary artery stent placement Family History Father Glioblastoma Hyperlipidemia Heart disease Paternal Grandmother Glioblastoma Mother Hypertension Heart disease Social History Smoking/Tobacco Use Status: Former Tobacco Use Quit Date: 09/14/03 Tobacco: How many years used: 10 Smoking risk assessment performed?: Yes Alcohol Intake: current Alcohol Intake frequency: 0-2 drinks per day Alcohol type: beer and hard liquor Drug use: Occasionally Substance use type: marijuana Household members: family Number of Children: 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
[2024-04-20 12:44] LABS: ALT 29 U/L (14-59); AST 13 U/L (15-37); Albumin 3.8 g/dL (3.4-5.0); Alkaline Phosphatase 77 U/L (46-116); Anion Gap 9.2 mmol/L (3-11); BUN 14 mg/dL (7-18); Bilirubin, Total 0.38 mg/dL (0.2-1.0); CO2 27.8 mmol/L (21.0-32.0); CREATININE 0.9 mg/dL (0.55-1.02); Calcium 9.3 mg/dL (8.5-10.1); Chloride 105 mmol/L (98-107); Estimated GFR 73.19 (mL/min/1.73m2); Glucose 98 mg/dL (74-106); Magnesium 2.1 mg/dL (1.8-2.4); Potassium 4.1 mmol/L (3.5-5.1); Sodium 142 mmol/L (136-145); Total Protein 7.3 g/dL (6.4-8.2)
--- NOTE | 2024-04-20 13:00 | RT.EKG_ITS ---
APPROVED REPORT Exam: Resting ECG Reason for Exam: chest pain Patient Location: E HR:53 bpm ECG Measurements Heart Rate 53 AXIS [place] 158 P 55 QRSd 78 QRS 58 QT 484 T 153 QTc 455 Conclusion Sinus bradycardia...rate< 60 Low voltage, extremity leads...all extremity leads <0.5mV Abnrm T, probable ischemia, anterolateral lds...T <-0.50mV, I aVL V2-V6 Physician: no stemi, diffuse t wave inversion V1-V6, slightly more pronounced from prior ekg 1 month ago [facility]
--- OUTSIDE RECORDS SUMMARY | 2024-04-20 13:09 | XMS_ITS | Encounter Summary ---
Author Organization [facility] Address [address] [place] [address] Care Team Providers Care Industrial Tech Instructor Name Role Phone Pretty Avery MD Primary Care Provider [phone] Encounter Details Date Type Department Care Team (Late st Contact Info) Description 12/05/2015 Results Only [facility] [phone] Ezequiel Estrada MD [address] [place] [address] [phone] Social History Tobacco Use Types Packs/Day Years [...] ? EZEQUIEL THOMAS ? Accession #: ? [id number] ? : ? 1965 (Age: 50) ??F [...] the atypical cells from the stroma. ??(Dr. Mcgovern)/[facility] Document reviewed and electronically signed [...] May 12/06/2015 1:10 PM End of Report [facility] 12/05/2015 10:3 3 EDT 12/06/2015 10:33 EDT Ezequiel Estrada MD PATHOLOGY ORDERABLES [facility] [address] [place] [address] documented in this encounter Visit Diagnoses Not on filedocumented in this encounter Care Teams Industrial Tech Instructor Relationship Specialty Start Date End Date Pretty Avery MD [address] [place] [address] PCP - General 06/05/10 documented as of this encounter
--- OUTSIDE RECORDS SUMMARY | 2024-04-20 13:09 | XMS_ITS | Encounter Summary ---
Author Organization [facility] Address [address] [place] [address] Care Team Providers Care Allergist/Immunologist Name Role Phone Pretty Avery MD Primary Care Provider [phone] Encounter Details Date Type Department Care Team (Latest Contact Info) Description 12/05/2015 12:19 EDT - 12/05/2015 23:59 EDT Hospital Encounter [address] [address] Unknown, Provider, Discharge Disposition: Home or Self [...] Code Departure Means Destination Home or Self Retirement documented in this encounter Plan of Treatment Not on file documented as of this encounter Visit Diagnoses Not on filedocumented in this encounter Care Teams Allergist/Immunologist Relationship Specialty Start Date End Date Pretty Avery MD [address] [place] [address] PCP - General 06/05/10 documented as of this encounter
--- OUTSIDE RECORDS SUMMARY | 2024-04-20 13:09 | XMS_ITS | Encounter Summary ---
Author Organization [facility] Address [address] [place] [address] Care Team Providers Care Payroll Benefits Administrator Name Role Phone Pretty Avery MD Primary Care Provider [phone] Encounter Details Date Type Department Care Team (Latest Contact Info) Description 04/08/2018 9:44 EDT - 04/08/2018 23:59 EDT Hospital Encounter [facility] [address] [place] [address] Unknown, Provider, Discharge Disposition: Home or Self [...] on filedocumented in this encounter Care Teams Payroll Benefits Administrator Relationship Specialty Start Date End Date Pretty Avery MD [address] [place] [address] PCP - General 06/05/10 documented as of this encounter
--- OUTSIDE RECORDS SUMMARY | 2024-04-20 13:09 | XMS_ITS | Encounter Summary ---
Author Organization [facility] Address [address] [place] [address] Care Team Providers Care Universal Worker Assisted Living Name Role Phone Pretty Avery MD Primary Care Provider [phone] Encounter Details Date Type Department Care Team (Late st Contact Info) Description 04/09/2018 Historical Results Only [facility] Lab - Main [address] [address] Ganesh Philip MD [address] [place] [phone] Social History Tobacco Use Types Packs/Day [...] 0.000 - 0.034 ng/mL 04/09/2018 7:39 EDT [facility] Comment: Interpretation comments: ??Cutoff for [...] & BLOOD GAS ORDERABLES Performing Organization Address City/[facility]/ZIP Co de Phone Number [facility] * LIPASE (04/09/2018 6:35 EDT) Lipase 84 <251 U/L 04/09/2018 9:4 8 EDT [facility] 04/09/2018 6:35 EDT 04/09/2018 9:38 EDT Narrative [facility] - 04/09/2018 9:48 EDT AOT: 04/09/18 0938: LIP Ganesh Philip MD CHEMISTRY & BLOOD GAS ORDERABLES [facility] documented in this encounter Visit Diagnoses Not on filedocumented in this encounter Care Teams Universal Worker Assisted Living Relationship Specialty Start Date End Date Pretty Avery MD [address] [place] [address] PCP - General 06/05/10 documented as of this encounter
--- OUTSIDE RECORDS SUMMARY | 2024-04-20 13:09 | XMS_ITS | Encounter Summary ---
Author Organization [facility] Address [address] [place] [address] Care Team Providers Care Ranch Rider Name Role Phone Pretty Avery MD Primary Care Provider [phone] Encounter Details Date Type Department Care Team (Latest Contact Info) Description 09/11/2021 Lab Requisition [facility] Pathology & Laboratory Medicine - [address] [address] Rosalba Archibald, DIVISION MANAGER [address] [phone] Encounter for general adult medical examination without [...] types, PCR Negative Negative 09/20/2021 15:45 EST [facility] Comment:No E6 or E7 mRNA is detected from HPV types 16,18,31,33,35,39,45,51,52,56,58,59,66, and 68 by director of quality control mediated amplification. Papanicolaou smear specimen (specimen) CERVIX UTERI STRUCTURE / Unknown 09/10/2021 9:15 EST 09/19/2021 14:21 EST Rosalba Archibald APRN MICROBIOLOGY - GE NERAL ORDERABLES [facility] [address] [place] [address] * PAP TEST (09/10/2021 9:15 EST) Specimens A. Cervix and/or Endocervix , ThinPrep Imaging System with Manual Evaluation 09/20/2021 15:45 EST [facility] Specimen Adequacy Satisfactory for Evaluation - transformation zone component present 09/20/2021 15:45 EST [facility] General Categorization Epithelial Cell Abnormality 09/20/2021 15:45 EST [facility] Descriptive Diagnosis Squamous Cell Abnormality - Atypical squamous cells, undetermined significance (ASC-US). 09/20/2021 15:45 EST [facility] Educational Comments [facility] recommends following ASCCP's 2012 Updated Consensus Guidelines for the Management of Abnormal Cervical Cancer Screening Tests and Cancer Precursors (JLGTD, 2013; 17(5):S1-S27). Consensus guidelines are available online at www.asccp.org. 09/20/2021 15:45 [facility] Attestation By the signature below, the attending physician certifies that they have personally conducted a gross and/or microscopic examination of the described specimens and rendered or confirmed the above diagnosis. 09/20/2021 15:45 [facility] at 1545 Clinical History See below 09/20/19 15:45 [facility] HPV The result for the Human Papillomavirus (HPV) Detection-High Risk Types is Negative. No E6 or E7 mRNA is detected from HPV types 16,18,31,33,35,3 9,45,51,52,56,58 ,59,66, and 68 by director of quality control mediated amplification.Te sting was performed on specimen [id number] and was resulted on 09/20/2021 1543 EST by CARMEN, LAB INSTRUMENT RESULTS IN 09/20/2021 15:45 [facility] Performing Lab [facility] 09/20/2021 15:45 [facility] Scanned Images 09/20/2021 15:45 [facility] Papanicolaou smear specimen (specimen) CERVIX UTERI STRUCTURE / Unknown 09/10/2021 9:15 EST 09/11/2021 9:41 EST Rosalba Archibald APRN PATHOLOGY ORDERAB LES [facility] [address] [place] [address] documented in this encounter Visit Diagnoses Diagnosis Encounter for general adult medical examination without abnormal findings Unspecified general medical examination Encounter for screening for malignant neoplasm of cervix Screening for malignant neoplasm of the cervix Encounter for gynecological examination (general) (routine) without abnormal findings documented in this encounter Care Teams Ranch Rider Relationship Specialty Start Date End Date Pretty Avery MD [address] [place] [address] PCP - General 06/05/10 documented as of this encounter
--- OUTSIDE RECORDS SUMMARY | 2024-04-20 13:09 | XMS_ITS | Encounter Summary ---
Author Organization [facility] Address [address] [place] [address] Care Team Providers Care Winch Stripper Name Role Phone Pretty Avery MD Primary Care Provider [phone] Encounter Details Date Type Department Care Team (Late st Contact Info) Description 03/07/2022 Lab Requisition [facility] Pathology & Laboratory Medicine - [address] [address] Outr Resulting Lab, Provider Social History Tobacco [...] Priority Date/Time Associated Diagnosis Comments ZZCOVID-19 TEST [facility] PCR Today 03/06/2022 16:00 EDT COVID-19 TESTING Routine 03/06/2022 16:0 0 EDT documented in this encounter Results * COVID-19 TEST [facility] PCR (03/06/2022 16:00 EDT) Swab 03/06/2022 16:0 0 EDT 03/07/2022 22:03 EDT Provider Outr Resulting Lab MICROBIOLOGY - GENERAL ORDERABLES Performing Organization Address [facility]/ZIP Co de Phone Number [facility] [address] [place] [address] * COVID-19 TESTING (03/06/2022 16:00 EDT) COVID-19 rt-PCR Result Negative Negative 03/08/2022 12:05 EDT [facility] Comment: This test [...] performed using the camille SARS-CoV-2 assay ([employer] on the [place]ille 6800 System Performing Lab [place] [address] [facility] 03/08/2022 12:05 EDT [facility] Swab 03/06/2022 16:0 0 EDT 03/07/2022 22:03 EDT Provider Outr Resulting Lab MICROBIOLOGY - GENERAL ORDERABLES Performing Organization Address [facility]/ZIP Co de Phone Number [facility] [address] [place] [address] documented in this encounter Visit Diagnoses Not on filedocumented in this encounter Care Teams Winch Stripper Relationship Specialty Start Date End Date Pretty Avery MD [address] [place] [phone] PCP - General 06/05/10 documented as of this encounter
--- OUTSIDE RECORDS SUMMARY | 2024-04-20 13:09 | XMS_ITS | Encounter Summary ---
Author Organization [facility] Address [address] [place] [address] Care Team Providers Care Assistant Finance Director Name Role Phone Pretty Avery MD Primary Care Provider Encounter Details Date Type Department Care Team (Late st Contact Info) Description 02/15/2020 Lab Requisition [facility] - [address] [address] Outr Resulting Lab, Provider Social History Tobacco [...] - BROAD COVID TEST (02/15/2020 13:38 EDT) [facility] COVID-19 rt-PCR Result NEGATIVE Negative 02/17/2020 10:45 EDT [facility] Comment: 2019-novel Coronavirus (2019-nCoV) not [...] in accordance with CLIA regulations, [employer] (CAP) guidelines (Dec 01, 2019), and FDA guidance (Nov 12, 2019). This test is only for use under the Food and Drug Administration's Emergency Use Authorization. Swab ENTIRE NASOPHARYNX / Unknown 02/15/2020 13:38 EDT 02/15/2020 21:00 EDT Provider Outr Resulting Lab MICROBIOLOGY - GENERAL ORDERABLES [facility] [place], [place] * COVID-19 TESTING (02/15/2020 13:38 EDT) COVID-19 rt-PCR Result NEGATIVE Negative 02/17/2020 12:54 EDT [facility] Comment: 2019-novel Coronavirus (2019-nCoV) not [...] in accordance with CLIA regulations, [employer] (CAP) guidelines (Dec 01, 2019), and FDA guidance (Nov 12, 2019). This test is only for use under the Food and Drug Administration's Emergency Use Authorization. Performing Lab [facility] 02/17/2020 12:54 EDT [facility] Swab ENTIRE NASOPHARYNX / Unknown 02/15/2020 13:38 EDT 02/15/2020 21:00 EDT Provider Outr Resulting Lab MICROBIOLOGY - GENERAL ORDERABLES [facility] [address] [place] [address] [facility] [place], [place] documented in this encounter Visit Diagnoses Not on filedocumented in this encounter Care Teams Assistant Finance Director Relationship Specialty Start Date End Date Pretty Avery MD [address] [place] [address] PCP - General 06/05/10 documented as of this encounter
--- OUTSIDE RECORDS SUMMARY | 2024-04-20 13:09 | XMS_ITS | Encounter Summary ---
Author Organization [facility] Address [address] [place] [address] Care Team Providers Care Pipe Roller Name Role Phone Pretty Avery MD Primary Care Provider [phone] Encounter Details Date Type Department Care Team (Late st Contact Info) Description 08/23/2020 Lab Requisition [facility] [place] [address] Outr Resulting Lab, Provider Social History Tobacco [...] NEGATIVE Negative 08/25/2020 8:37 EST [facility] Comment: 2019-novel Coronavirus (2019-nCoV) not [...] in accordance with CLIA regulations, [employer] [place] [employer] (CAP) guidelines (Dec 01, 2019), and FDA guidance (Nov 12, 2019). This test is only for use under the Food and Drug Administration's Emergency Use Authorization. Swab ENTIRE NASOPHARYNX / Unknown 08/22/2020 13:10 EST 08/23/2020 15:58 EST Provider Outr Resulting Lab MICROBIOLOGY - GENERAL ORDERABLES [facility], [place] * COVID-19 TESTING (08/22/2020 13:10 EST) COVID-19 rt-PCR Result NEGATIVE Negative 08/25/2020 10:01 EST [facility] Comment: 2019-novel Coronavirus (2019-nCoV) not [...] in accordance with CLIA regulations, [employer] (CAP) guidelines (Dec 01, 2019), and FDA guidance (Nov 12, 2019). This test is only for use under the Food and Drug Administration's Emergency Use Authorization. Performing Lab [facility] 08/25/2020 10:01 EST [facility] Swab 08/22/2020 13:1 0 EST 08/23/2020 15:58 EST Provider Outr Resulting Lab MICROBIOLOGY - GENERAL ORDERABLES [facility] [address] [place] [address] [facility], [place] documented in this encounter Visit Diagnoses Not on filedocumented in this encounter Care Teams Pipe Roller Relationship Specialty Start Date End Date Pretty Avery MD [address] [place] [address] PCP - General 06/05/10 documented as of this encounter
--- OUTSIDE RECORDS SUMMARY | 2024-04-20 13:09 | XMS_ITS | Encounter Summary ---
Author Organization [facility] Address [address] [place] [address] Care Team Providers Care Set Painter Name Role Phone Pretty Avery MD Primary Care Provider [phone] Encounter Details Date Type Department Care Team (Late st Contact Info) Description 06/18/2018 Results Only [facility] [phone] Marietta Mauricio, DO [address] [place] [address] Social History Tobacco Use Types [...] ? EZEQUIEL THOMAS ? Accession #: ? [id number] ? : ? 1965 (Age: 53) ??F [...] Meyers 06/19/2018 9:42 AM End of Report [facility] 06/18/2018 16:1 9 EDT 06/18/2018 16:19 EDT Marietta Mauricio DO PATHOLOGY ORDERABLES [facility] [address] [place] [address] documented in this encounter Visit Diagnoses Not on filedocumented in this encounter Care Teams Set Painter Relationship Specialty Start Date End Date Pretty Avery MD [address] [place] [address] PCP - General 06/05/10 documented as of this encounter
--- OUTSIDE RECORDS SUMMARY | 2024-04-20 13:09 | XMS_ITS | Encounter Summary ---
Author Organization [facility] Address [address] [place] [address] Care Team Providers Care Artisan Plasterer Name Role Phone Pretty Avery MD Primary Care Provider [phone] Encounter Details Date Type Department Care Team (Late st Contact Info) Description 06/24/2023 Lab Requisition [facility] Pathology & [place] [address] Outr Resulting Lab, Provider Social History Tobacco [...] Lyme Ab Negative Negative 06/25/2023 11:00 EDT [facility] Blood VENOUS BLOOD / Unknown 06/24/2023 9:02 EDT 06/24/2023 17:06 EDT Provider Outr Resulting Lab IMMUNOLOGY A ND SEROLOGY ORDERABLES [facility] [address] [place] [address] documented in this encounter Visit Diagnoses Not on filedocumented in this encounter Care Teams Artisan Plasterer Relationship Specialty Start Date End Date Pretty Avery MD [address] [place] [address] PCP - General 06/05/10 documented as of this encounter
--- OUTSIDE RECORDS SUMMARY | 2024-04-20 13:09 | XMS_ITS | Referral Summary ---
Author Organization [facility] Address [address] [place] [address] Care Team Providers Care Oil Heaterman Name Role Phone Pretty Avery MD Primary Care Provider [phone] Allergies No known active allergies Medications Medication [...] NSTEMI (non-ST elevated myocardial infarction) ( [facility]) 03/30/2014 Social History Tobacco Use Types Packs/Day [...] Advance Directives For more information, please contact: [phone] * Full Code (Latest Code Status on File) Date Activated Date Inactivated Comments 12/15/2014 9:53 12/15/2014 18:00 Question Answer Comments Reason for decision includes: Full code consistent with overall plan of care Who participated in the discussion? Patient * Full Code Date Activated Date Inactivated Comments 03/30/2014 20:42 04/01/2014 17:36 Care Teams Oil Heaterman Relationship Specialty Start Date End Date Pretty Avery MD [address] [place] [address] PCP - General 06/05/10
--- OUTSIDE RECORDS SUMMARY | 2024-04-20 13:09 | XMS_ITS | Encounter Summary ---
Author Organization [facility] Address [address] [place] [address] Care Team Providers Care Six Sigma Black Trainer Name Role Phone Pretty Avery MD Primary Care Provider [phone] Encounter Details Date Type Department Care Team (Late st Contact Info) Description 07/26/2021 Lab Requisition [facility] Pathology & [place] [address] Outr Resulting Lab, Provider Social History Tobacco [...] Lyme Ab Negative Negative 07/29/2021 9:57 EST [facility] Blood VENOUS BLOOD / Unknown 07/26/2021 10:55 EST 07/26/2021 21:29 EST Provider Outr Resulting Lab IMMUNOLOGY A ND SEROLOGY ORDERABLES Performing Organization Address City/State/[place]UST Co de Phone Number [facility] [address] [place] [address] documented in this encounter Visit Diagnoses Not on filedocumented in this encounter Care Teams Six Sigma Black Trainer Relationship Specialty Start Date End Date Pretty Avery MD [address] [place] [address] PCP - General 06/05/10 documented as of this encounter
--- OUTSIDE RECORDS SUMMARY | 2024-04-20 13:09 | XMS_ITS | Encounter Summary ---
Author Organization [facility] Address [address] [place] [address] Care Team Providers Care Student Services Counselor Name Role Phone Pretty Avery MD Primary Care Provider [phone] Reason for Visit * Reason Onset Date Comments Post-op Problem 12/17/2014 Encounter Details Date Type Department Care Team (Late st Contact Info) Description 12/17/2014 Telephone [facility] - [address] [place], [place] [phone] Alex Freed, [address] [address] Post-op Problem Social History Tobacco [...] Encounter - Alex Freed DO - 12/17/2014 8385 EDT Isa called on 12/16/14 with complaints [...] at 18:00. Alex Freed DO 12/17/2014 11:53 Client Services Director documented in this encounter Plan of Treatment Not on file documented as of this encounter Visit Diagnoses Not on filedocumented in this encounter Care Teams Student Services Counselor Relationship Specialty Start Date End Date Pretty Avery MD [address] [place] [id number] PCP - General 06/05/10 documented as of this encounter
--- OUTSIDE RECORDS SUMMARY | 2024-04-20 13:09 | XMS_ITS | Encounter Summary ---
Author Organization [facility] Address [address] [place] [address] Care Team Providers Care Butter Maker Name Role Phone Pretty Avery MD Primary Care Provider [phone] Encounter Details Date Type Department Care Team (Late st Contact Info) Description 04/08/2018 Historical Results Only [facility] Radiology Results [address] [place] [address] Wesley Trinh MD [address] [place] [address] Social History Tobacco Use Types [...] * TROPONIN I (04/08/2018 20:12 EDT) Pathologist [facility] Troponin I (ng/mL) <0.012 0.000 - 0.034 ng/mL 04/08/2018 20:47 EDT [facility] Comment: Interpretation [...] BLOOD GAS ORDERABLES [facility] * XR CHEST 2 VIEWS [...] MD ? Transcribed Date/Time: 04/08/2018 (1402) ? Supervisor Soldering: ? Printed Date/Time: 03/04/2019 (0056) ? PAGE 1 ? Signed Report ? [...] Wesley Trinh MD Transcribed Date/Time: 04/08/2018 (1402) Supervisor Soldering: Printed Date/Time: 03/04/2019 (7038) PAGE 1 Signed Report Wesley Trinh MD IMG DIAGNOSTIC I MAGING ORDERABLES * MAGNESIUM (04/08/2018 12:24 EDT) Magnesium 1.70 1.7 - 2.8 mg/dL 04/08/2018 12:48 EDT [facility] 04/08/2018 12:2 4 EDT 04/08/2018 12:30 EDT Wesley Trinh MD CHEMISTRY & BLOO D GAS ORDERABLES [facility] * (ABNORMAL) COMPREHENSIVE METABOLIC PANEL (CMP) (04/08/2018 12:24 EDT) Pathologist [facility] Albumin % 4.4 3.4 - 4.9 g/dL 04/08/2018 12:48 [facility] ALKALINE PHOSPHATASE - [facility] 75 38 - 126 U/L 04/08/2018 12:48 [facility] BILIRUBIN TOTAL 0.4 0.2 - 1.3 mg/dL 04/08/2018 12:48 [facility] BUN - [facility] 21 10 - 26 mg/dL 04/08/2018 12:48 [facility] CALCIUM - [facility] 9.3 8.5 - 10.5 mg/dL 04/08/2018 12:48 [facility] Chloride 104 96 - 110 mmol/L 04/08/2018 12:48 [facility] CO2 Total 23 22 - 32 mEq/L 04/08/2018 12:48 [facility] CREATININE 0.85 0.52 - 1.04 mg/dL 04/08/2018 12:48 [facility] eGFR >60 04/08/2018 12:48 [facility] Comment: Chronic renal impairment is defined as GFR <60 Multiply result by 1.210 for patients. eGFR calculated using the IDMS-traceable MDRD Study Equation. ??(effective 07/17/2014) Anion Gap 11 0 - 18 04/08/2018 12:48 EDT [facility] GLUCOSE - [facility] 103(H) 70 - 100 mg/dL 04/08/2018 12:48 EDT [facility] Potassium 3.8 3.5 - 5.0 mEq/L 04/08/2018 12:48 EDT [facility] Sodium 138 136 - 145 mEq/L 04/08/2018 12:48 EDT [facility] TOTAL PROTEIN - [facility] 7.1 6.2 - 8.2 gm/dL 04/08/2018 12:48 EDT [facility] SGOT/AST - [facility] 20 14 - 36 U/L 04/08/2018 12:48 T [facility] SGPT/ALT - [facility] 36 9 - 52 U/L 8 12:48 EDT [facility] 04/08/2018 12:2 4 EDT 04/08/2018 12:30 EDT Wesley Trinh MD CHEMISTRY & BLOO D GAS ORDERABLES Performing Organization Address [facility]/ZIP Co de Phone Number [facility] * TROPONIN I (04/08/2018 12:24 EDT) Troponin I (ng/mL) <0.012 0.000 - 0.034 ng/mL 04/08/2018 13:00 EDT [facility] Comment: Interpretation [...] MD CHEMISTRY & BLOO D GAS ORDERABLES [facility] * COMPLETE BLOOD COUNT WITH DIFFERENTIAL (AUTO) (04/08/2018 12:24 EDT) ABSOLUTE NEUTROPHIL COUN - [facility] 5.55 1.7 - 7.0 10e3/ul 04/08/2018 12:36 [facility] BASO # - [facility] 0.02 0.0 - 0.3 10e3/uL 04/08/2018 12:36 [facility] BASO % - [facility] 0 0 - 2 % 04/08/2018 12:36 [facility] EOS # - [facility] 0.18 0.05 - 0.5 10e3/uL 04/08/2018 12:36 [facility] EOS % - [facility] 2 0 - 5 % 04/08/2018 12:36 [facility] GRAN % - [facility] 65 40 - 80 % 04/08/2018 12:36 [facility] HEMATOCRIT - [facility] 39.7 34.0 - 47.0 % 04/08/2018 12:36 [facility] HEMOGLOBIN - [facility] 13.5 11.2 - 15.7 g/dl 04/08/2018 12:36 [facility] IG# - [facility] 0.02 0 - 0.07 10e3/uL 04/08/2018 12:36 [facility] IG% - [facility] 0.2 0 - 0.9 % 04/08/2018 12:36 [facility] LYMPH # - [facility] 2.22 0.9 - 2.9 10e3/uL 04/08/2018 12:36 [facility] LYMPH% - [facility] 26 20 - 40 % 04/08/2018 12:36 [facility] MEAN CORPUSCULAR HGB - [facility] 28.2 26 - 34 pg 04/08/2018 12:36 [facility] MEAN CORPUSCULAR HGB CONC - [facility] 34.0 31 - 36 g/dL 04/08/2018 12:36 [facility] MEAN CELL VOLUME - [facility] 82.9 77 - 100 fl 04/08/2018 12:36 [facility] MONO # - [facility] 0.60 0.3 - 0.9 10e3/uL 04/08/2018 12:36 EDT [facility] MONO% - [facility] 7 0 - 12 % 04/08/2018 12:36 EDT [facility] PLATELET COUNT 252 150 - 400 10e3/ul 04/08/2018 12:36 EDT [facility] RED BLOOD COUNT - [facility] 4.79 3.8 - 5.2 10e6/ul 04/08/2018 12:36 EDT [facility] RED CELL DISTRI WIDTH - [facility] 14.1 11.8 - 15.6 % 04/08/2018 12:36 EDT [facility] WHITE BLOOD COUNT - [facility] 8.6 3.5 - 10.5 10e3/ul 04/08/2018 12:36 EDT [facility] 04/08/2018 12:2 4 EDT 04/08/2018 12:30 EDT Wesley Trinh MD HEMATOLOGY & PF4 ORDERABLES [facility] documented in this encounter Visit Diagnoses Not on filedocumented in this encounter Care Teams Butter Maker Relationship Specialty Start Date End Date Pretty Avery MD [address] [place] [address] PCP - General 06/05/10 documented as of this encounter
--- OUTSIDE RECORDS SUMMARY | 2024-04-20 13:09 | XMS_ITS | Clinical Summary ---
Author Organization [facility] Address [address] [place] [address] Care Team Providers Care Solar Process Engineer Name Role Phone Pretty Avery MD Primary Care Provider [phone] Allergies No known active allergies Medications Medication [...] infarction) ( [facility]) 03/30/2014 Surgical History Surgery Date Site/Laterality Comments [...] Advance Directives For more information, please contact: [phone] * Full Code (Latest Code Status on File) Date Activated Date Inactivated Comments 12/15/2014 9:53 12/15/2014 18:00 Question Answer Comments Reason for decision includes: Full code consistent with overall plan of care Who participated in the discussion? Patient * Full Code Date Activated Date Inactivated Comments 03/30/2014 20:42 04/01/2014 17:36 Care Teams Solar Process Engineer Relationship Specialty Start Date End Date Pretty Avery MD [address] [place] [address] [facility] - General 06/05/10
--- OUTSIDE RECORDS SUMMARY | 2024-04-20 13:09 | XMS_ITS | Encounter Summary ---
Author Organization [facility] Address [address] [place] [address] Care Team Providers Care Negative Assembler Name Role Phone Pretty Avery MD Primary Care Provider [phone] Encounter Details Date Type Department Care Team (Late st Contact Info) Description 12/15/2014 9:30 EDT - 12/15/2014 15:15 EDT Hospital Encounter [facility] Cardiovascular Unit [address] [place] [address] Manpreet Naqvi MD [address] [place] [address] [phone] Dilip Mahajan MD [address] [facility] [address] [place] [phone] Discharge Disposition: Home or Self Care Social [...] was performed by Dr. Mahajan. Phone # [phone] You have had a Cardiovascular Catheterization performed [...] 12/13/14. Will contact pt today to reschedule. crime lab technician notified. 12/13/14 10:00, pt rescheduled to Thursday12/15/14. [...] JAHAIRA. * Michaelle Ellsworth, RN - 12/12/2014 7950 EDT Precardiac Cath Nursing Checklist Recent Labs: Lab Results Component Value Date BUN 10 04/01/2014 CREATININE 0.69 04/01/2014 HGB 12.6 04/01/2014 CALCGFR >60 04/01/2014 Hgt: Height: 157.5 cm (62) Wgt: Weight : 54.205 kg (119 lb 8 oz) Allergies: No Known Allergies Local Pharmacy [phone] [address] Cardiac History: Stress Test? No Reason for Cath: chest pain, hx of cad Anginal equivalent:: Cardiac Procedures: Previous PCI done at: [facility] Stent Type/Size: 03/31/14 2.5 x 12 resolute stent prox lad Cardiac surgery: no Medical/Surgical History : Patient has a past medical history of HTN (hypertension); HLD (hyperlipidemia); Chest pain; CAD (coronary artery disease); Family history of heart disease; and Hx of non-ST elevation myocardial infarction (NSTEMI). Patient has past surgical history that includes section. Chronic Risk Factors: HTN, HLD, Previous SC and Previous PCI Smoking and Alcohol intake: [...] instructed to register on the 3rd floor [facility]. Transportation Issues: Patient/family instructed that they will need a designated pile driver operator if they are discharged on the dayof the procedure. Medications: Medication list: Patient/family instructed to bring medication list with them on the day of the procedure. Anticoagulants/Antiplatelets: Takes brilinta bid, instructed to take aspirin 81 mg on 12/14/14-12/15/14. Anti-Anginal meds: none Michaelle Ellsworth RN documented in this encounter H&P Notes * Chun Nielsen MD - 12/15/2014 1044 EDT Family Medicine Chair H&P PCP: Pretty Avery MD Geriatric Nurse Assistant: Date of Service: 12/15/2014 Chief Complaint: angina [...] The angina has been stable. Referred for [facility] to further evaluate. 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 Smoking status: [...] Consent No noted contra-indications to LHC or JAHARIA PCI IV Contrast Allergy: No Cr (GFR): 0.78 (>60) Anti-Anginal Medications: none Anti-Platelet Medications: Ticagrelor, ASA This procedure has been fully reviewed with the patient (including risk-benefit analysis and possible complications) and written informed consent has been obtained. Chun Nielsen MD Family Medicine Chair Pager [phone] documented in this encounter Procedure Notes * [...] artery Procedure: She was brought to [facility] Cardiac Catheterization Laboratory for the procedure: [...] 4 weeks Dilip Mahajan Jr., MD PagerNumber: [phone] 12/15/2014 11:43 documented in this encounter Plan [...] EST) 09/26/2015 11:4 2 EST Scan 2 Aerodynamic Consultant PROCEDURE/MINOR SHAYY GICAL ORDERABLES * INVASIVE CARDIOLOGY REPORT-SCANNED (12/19/2014 8:53 EDT) 12/19/2014 8:53 EDT Scan 2 Aerodynamic Consultant PROCEDURE/MINOR SHAYY GICAL ORDERABLES * ECG REPORT - SCANNED (12/19/2014 8:17 EDT) 12/19/2014 8:17 EDT Scan 2 Aerodynamic Consultant PROCEDURE/MINOR SHAYY GICAL ORDERABLES * LEFT HEART CATH (12/15/2014 11:26 EDT) Anatomical Region Laterality Modality Other 12/15/2014 11:2 6 EDT Narrative 12/18/2014 8:37 EDT Cardiology [address] [place] [address] Catheterization Laboratory Study Patient: Isa Ro ? Study Date: ?12/15/2014 ? Accession #: ? [id number] : ? 1965 Referring Physician: Pretty Avery [...] Right radial artery access. A 6 FR/10 [employer] Sheath [place] SS .021 sheath was ?? advanced into [...] Dilip Mahajan Jr., MD - 12/18/[address] [place] [address] Catheterization Laboratory Study Patient: Isa Ro Study Date:12/15/2014 : 1965 Referring Physician: Pretty Avery Diagnostic Attending: Dilip Mahajan Diagnostic Fellow: Cuhn Nielsen ATTESTATION: Dr. Dilip Mahajan was present [...] DATA: Study status: Cardiac cath: elective. [facility] Sex: [facility]. Patient is 49yr [...] artery access. A 6 FR/10 [employer] Sheath [place] SS .021sheath was advanced into the vessel. [...] 10:12 EDT) 12/15/2014 10:1 2 EDT Narrative [facility] EKG - 12/15/2014 15:09 EDT ? [facility] ? Test Date: ?2014-12-15 Pat Name: ? ISA RO ?Department: ?? CVU ? Room: ? CVU37 Gender: ? F ?Commercial Credit Reviewer: ?? [id number] : ?1965 ? Requested By: [facility] Order Number: [id number] ? Reading MD: ?? JOHNNY PATEL MD ? Measurements Intervals ?[place] ? Rate: ? 64 ? P: ?70 MI: ? 155 ?QRS: ?48 QRSD: ? 82 [...] Note Johnny Patel MD - 12/15/[address] [facility] Test Date: 2014-12-15 Pat Name: ISA RO Department: CVU Room: [facility] Gender: F Commercial Credit Reviewer: [id number] : 1965 Requested By: RUTH Vera Order Number: [id number] Reading MD: JOHNNY VICTOR Measurements Intervals [place] Rate: 64 P: 70 MI: 155 QRS: 48 QRSD: 82 T: 72 QT: 434 QTc: 450 Interpretive Statements SINUS RHYTHM NONSPECIFIC ST & T-WAVE ABNORMALITY Compared to ECG 03/31/2014 13:30:36 Sinus rhythm now present T-wave abnormality now present I reviewed the tracing and have either agreed or edited the findings inthis report. Electronically Signed On 12-15-14 15:09:46 EDT by CHARBEL MACK. Abiodun Velez MD CARDIAC ECG ORDER JAMI [facility] EKG * PROTIME (12/15/2014 10:04 EDT) [facility] Pro Time 10.3 9.5 - 12.3 secs 12/15/2014 10:37 [facility] I.N.R. 1.0 0.9 - 1.1 Ratio 12/15/2014 10:37 [facility] Comment: Moderate Intensity Coumadin INR = 2.0-3.0 Adjustments in anticoagulant therapy dose should be based upon the INR and NOT the Pro Time. Blood specimen (specimen) BLOOD SPECIMEN / Unknown 12/15/2014 10:04 EDT 12/15/2014 10:21 EDT Abiodun Velez MD HEMATOLOGY & PF4 ORDERABLES [facility] [address] [place] [address] * HEMAGRAM (12/15/2014 10:04 EDT) WBC 6.17 4.0 - 12.4 K/cmm 12/15/2014 10:28 [facility] RBC 4.76 3.86 - 5.04 M/cmm 12/15/2014 10:28 [facility] Hemoglobin 13.2 11.6 - 15.2 gm/dl 12/15/2014 10:28 [facility] HCT 40.0 34.9 - 44.4 % 12/15/2014 10:28 [facility] MCV 84 81 - 98 fl 12/15/2014 10:28 [facility] MCH 27.8 26.7 - 33.3 pg 12/15/2014 10:28 [facility] MCHC 33.1 32.1 - 35.9 gm/dl 12/15/2014 10:28 [facility] RDW-CV 13.7 11.7 - 14.6 % 12/15/2014 10:28 [facility] RDW-SD 41.6 37.6 - 50.3 fl 12/15/2014 10:28 [facility] PLT 245 141 - 320 K/cmm 12/15/2014 10:28 [facility] MPV 8.0 7.5 - 11.2 fl 12/15/2014 10:28 EDT [facility] Blood specimen (specimen) BLOOD SPECIMEN / Unknown 12/15/2014 10:04 EDT 12/15/2014 10:21 EDT Abiodun Velez MD HEMATOLOGY & PF4 ORDERABLES Performing Organization Address City/[facility]/ZIP Co de Phone Number [facility] [address] [place] [address] * ELECTROLYTES (12/15/2014 10:04 EDT) Sodium 141 136 - 145 mEq/L 12/15/2014 10:45 EDT [facility] Potassium 4.3 3.5 - 5.0 mEq/L 12/15/2014 10:45 EDT [facility] Chloride 103 96 - 110 mEq/L 12/15/2014 10:45 EDT [facility] CO2 28 24 - 32 mEq/L 12/15/2014 10:45 EDT [facility] Blood specimen (specimen) BLOOD SPECIMEN / Unknown 12/15/2014 10:04 EDT 12/15/2014 10:21 EDT Abiodun Velez MD CHEMISTRY & BLOOD GAS ORDERABLES Performing Organization Address [facility] Co de Phone Number [facility] [address] [place] [address] * CREATININE (12/15/2014 10:04 EDT) Creatinine 0.78 0.52 - 1.04 mg/dl 12/15/2014 10:45 EDT [facility] GFR, Calculated >60 >60 ml/min/1.7 3m2 12/15/2014 10:45 EDT [facility] Blood specimen (specimen) BLOOD SPECIMEN / Unknown 12/15/2014 10:04 EDT 12/15/2014 10:21 EDT Abiodun Velez MD CHEMISTRY & BLOOD GAS ORDERABLES [facility] [address] [place] [address] * BUN (12/15/2014 10:04 EDT) BUN 16 10 - 26 mg/dl 12/15/2014 10:45 EDT [facility] Blood specimen (specimen) BLOOD SPECIMEN / Unknown 12/15/2014 10:04 EDT 12/15/2014 10:21 EDT Abiodun Velez MD CHEMISTRY & BLOOD GAS ORDERABLES [facility] [address] [place] [address] documented in this encounter Visit Diagnoses Not [...] 12/15/2014 documented in this encounter Care Teams Negative Assembler Relationship Specialty Start Date End Date Pretty Avery MD [address] [place] [address] PCP - General 06/05/10 documented as of this encounter
--- OUTSIDE RECORDS SUMMARY | 2024-04-20 13:09 | XMS_ITS | Encounter Summary ---
Author Organization [facility] Address [address] [place] [address] Care Team Providers Care Electrical And Instrument Engineer Name Role Phone Pretty Avery MD Primary Care Provider [phone] Encounter Details Date Type Department Care Team (Latest Contact Info) Description 06/18/2018 9:36 EDT - 06/18/2018 23:59 EDT Hospital Encounter [facility] - [address] [address] Unknown, Provider, Discharge Disposition: Home or Self [...] Code Departure Means Destination Home or Self Residential documented in this encounter Plan of Treatment Not on file documented as of this encounter Visit Diagnoses Not on filedocumented in this encounter Care Teams Electrical And Instrument Engineer Relationship Specialty Start Date End Date Pretty Avery MD [address] [place] [address] PCP - General 06/05/10 documented as of this encounter
--- OUTSIDE RECORDS SUMMARY | 2024-04-20 13:10 | XMS_ITS | Encounter Summary ---
Author Organization [facility] Address [facility] [place] [address] Care Team Providers Care Track Surfacing Machine Operator Name Role Phone None Primary Care Provider Unavailabl e Reason for Referral * Consultation (Routine) - Authorized Specialty Diagnoses / Procedures Referred By Contac t Referred To Contact Cardiology Diagnoses ST elevation myocardial infarction involving left anterior descending (LAD) coronary artery Kathryn Walker [place] [address] [facility] [address] [place] [address] Referral ID Status Reason Start Date Expiration Date Visits Requested Visits Authorized [id number] Authorized Consult, Test & Treat 03/22/2024 09/18/2024 1 1 * Consultation (Routine) - Authorized Specialty Diagnoses / Procedures Referred By Contac t Referred To Contact Cardiology Diagnoses ST elevation myocardial infarction involving left anterior descending (LAD) coronary artery Horace Hancock MD [facility] [place] [address] Cardiac Rehab, [address] [place] [address] Referral ID Status Reason Start Date Expiration Date Visits Requested Visits Authorized [id number] Authorized Consult, Test & Treat 03/22/2024 09/18/2024 36 36 Reason for Visit * Auth/Cert (Routine) Specialty Diagnoses / Procedures Referred By Contac t Referred To Contact Diagnoses Acute ST elevation myocardial infarction (STEMI) due to occlusion of left anterior descending (LAD) coronary artery stemi Procedures EMERGENCY IPI Destin Ambrosio MD [facility] [address] [facility] Referral ID Status Reason Start Date Expiration Date Visits Re quested Visits Authorized [id number] 1 1 Encounter Details Date Type Department Care Team (Latest Contact Info) Description 03/19/2024 12:37 AM EDT - 03/22/2024 12:10 PM EDT Hospital Encounter Heart and Vascular Unit Level 4 Wing A at [place] [phone] Destin Ambrosio MD [facility] [address] Horace Hancock MD [facility] [address] Kathryn Walker MD [facility] [address] ST elevation myocardial infarction involving left anterior descending (LAD) coronary artery; Chest pain, unspecified type Discharge Disposition: Home Social History Tobacco Use Types Packs/Day Years Used Date Smoking Tobacco: Former Smokeless Tobacco: Never Alcohol Use Standard Drinks/Week Comments Yes 14 (1 standard drink = 0.6 oz pu re alcohol) [facility] Utilities Answer Date Recorded In the past 12 months has [facility] [employer], gas, oil, or water [employer] threatened to shut off services in your [...] time in the past 12 m [facility], were you homeless or living in a half-way (including now)? No 03/21/2024 DH IPV Inpatient [...] Isa Ro Patient Age: 59 y.o. Language: Luxembourgish Race: White Ethnicity: Not nor Admit date: [...] given mildly reduced LVEF [ ] f/u [facility] cardiology scheduled. [facility] cardiology referral sent Inpatient Provider Contact Information: Kathryn Walker MD [phone] For questions regarding this document or issues relating to this hospitalization on the Medical Service, please contact your inpatient physician through the [facility] Welding Machine Operator [employer] . Issues afterhours and on weekends will [...] 03/19/2024 8:37 AM) Result Value WORKSTATION ID [id number] Narrative EXAMINATION: XR CHEST ONE VIEW CLINICAL [...] who have questions please contact the health long term care phlebotomist that requested your imaging first. Cardiac Catheterization (Exam End: 03/19/2024 1:36 AM) Narrative [facility] Cardiac Catheterization/Intervention Report Patient Name: Isa Ro Procedure Date: 03/19/2024 A #: [id number] Primary Physician: Ramo Roy Case #: [id number] File Name: [id number] Catheterization Order Number: [id number] [facility] Box Packer [facility] Final Report [place], [place] Patient Name: Isa Ro ID#: [id number] : 1965 Procedure Date: March 19, 2024 [...] was designated as ASA Class IV. The [facility] clinical frailty scale is 3: [...] catheter and a 3.5 Fr [place] 20 Mhz using auto 1 mm/sec pullback. [...] priority for the procedure was Emergent. The [facility] indication for the procedure was [...] atmospheres. A premounted 3.00 x 08 mm Ellerslie Bertie (JAHAIRA) was deployed with a maximum inflation pressure of 12 atmospheres. Another stent insertion was accomplished through a 6 Fr. EBU 3.5 guide. A premounted 2.00 x 08 mm Alberto Bertie (JAHAIRA) was deployed. The final outcome was [...] may require modification of this regimen. Consult [facility] Interventional Cardiology for questions. The 1 year [...] against any medical treatment. Consult http://tools.acc.org/DAPTriskapp/#!/content/calculator/ or [facility] Interventional Cardiology for questions Conclusions: * One [...] decreased and new wall motion abnormalities. Procedure Complete-38037. Image enhancement Definity was used for left [...] LAD in 03/2014, HLD, who presented to [facility] with chest pain. She developed chest pain around 2100 on 03/18 which prompted her to call EMS. She was given 325mg of aspirin and nitroglycerin. On arrival to [facility], she was found to have an EKG suggestive of anterior STEMI for which she was given half dose TNKfor systemic lysis prior to speaking with Dr. Herrera, on-call sexual health physician at [facility]. She was subsequently transferred directly to the [facility] dental lab technician where coronary angiography revealed [...] away. Stay on the phone. The emergency operator technician will tell you what to do. Nitroglycerin [...] of 8AM-5PM please call the Cardiology Clinic [phone] to speak with a nurse. All other hours please call the Hospital Welding Machine Operator [employer] [phone] and ask to speak to the cardiovascular hospitalist on-call. Return to work: One week Follow up Appointments: Doctor Where Phone # Date Time PCP MELECIO Polanco [address] [place], [place] [address] 04/04/24 7:55 AM Marking Clerk Herlinda Weaver PA-C [facility] Cardiology Clinic [phone] 05/09/24 10:40 AM (pleasearrive by 10:20 AM) *A referral has also been placed to [facility] cardiology, though you will need to follow-up with them regarding scheduling appointments at [phone] General Instructions None Future Appointments and Orders Future Appointments and Orders Future Appointments Provider Department Dept Phone 05/09/2024 10:40 AM Herlinda Weaver PA Cardiology at [facility] Arrive at: [facility] Mechanic Area [phone] Future Orders Complete By Expires Referral to Cardiac Rehab [[id number] Custom] As directed Process Instructions: If no progress note charted, please enter Clinical details in comments. Scheduling Instructions: Questions: My question or request is: s/p STEMI- cardiac rehab at [facility] Referral to Cardiology [REF12 Custom] As directed Process Instructions: If no progress note charted, please enter Clinical details in comments. Scheduling Instructions: Questions: My question or request is: s/p STEMI Discharge References/Attachments None Greater than 30 minutes was spent on this discharge including documentation, [id number] time withthe patient, patient education, mail order biller, coordination with pharmacy and other patient care. [...] away. Stay on the phone. The emergency operator technician will tell you what to do. Nitroglycerin [...] cardiac rehab has also been placed to [facility]. Call your doctor if: Chest pain, dyspnea, pain or swelling in legs occurs, or for weight gain of 2 pounds overnight or 5pounds in 5 days. If you have non-emergent questions, prior to your follow-up visit call: Thursday-Thursday between the hours of 8AM-5PM please call the Cardiology Clinic [phone] to speak with a nurse. All other hours please call the Hospital Welding Machine Operator [employer] [phone] and ask to speak to the cardiovascular hospitalist on-call. Return to work: One week Follow up Appointments: Doctor Where Phone # Date Time PCP MELECIO Polanco [address] [place], [place] [address] 04/04/24 7:55 AM Marking Clerk Herlinda Weaver PA-C [facility] Cardiology 4A Clinic [phone] 05/09/24 10:40 AM (pleasearrive by 10:20 AM) *A referral has also been placed to [facility] cardiology, though you will need to follow-up with them regarding scheduling appointments at [phone] documented in this encounter Medications at Time [...] agreed to participate in cardiac rehab at [facility] following discharge Review of Systems: Review [...] pt re: Losartan/GDMT consideration -Cardiac Rehab at [facility] following discharge -Telemonitoring x72 hours -Plan for discharge tomorrow -Cardiology appointment scheduled 05/09/2024 at 10:40 AM t [facility] #Significant HLD -LDL 324 -Atorvastatin 80mg daily [...] 03/19/2024 8:20 PM EDTSummary: Chest Pain Patient educational program assistant light c/o chest pain 11/21. I asked [...] Mcbride MD - 03/19/2024 2:50 AM EDT [facility] TeleICU Initial Assessment Note I established audio/visual [...] started Following procedure, transferred to [facility] - able to be weaned to [...] 10:00 PM Hospital to which patient presented: [facility] If Hospital to which patient presented= [facility]: ED via EMS Date and Time of [...] Not contraindicated Plan STEMI Alert called: Yes Box Packer Activated by: Learning And Development Manager Initial Disposition: Admit Box Packer documented in this encounter H&P Notes * Ganehs Nguyen MD - 03/19/2024 1:11 AM EDT [...] to LAD in 03/2014, HLD,who presented to [facility] with chest pain. She developed chest pain around 2100 on 03/18 which prompted her to call EMS. She was given 325mg of aspirin and nitroglycerin. On arrival to [facility], she was found to have an EKG suggestive of anterior STEMI for which she was given half dose TNK for systemic lysis prior to speaking with Dr. Herrera, on-call sexual health physician at [facility]. She was subsequently transferred directly to the [facility] dental lab technician where coronary angiography revealed [...] Cardiopulmonary Resuscitation - Inpatient Ganesh Nguyen MD Learning And Development Manager [id number] documented in this encounter Miscellaneous Notes [...] [facility] [address] [facility] [address] Cardiology, [facility] [address] [facility] [address] Transportation: family or friend will provide Functional [...] 03/21/2024 4:02 PM EDT Patient completed a [place] advance directive. Patient identified her sister Stacia [...] N/A ; Prescription Coverage: Yes Preferred Pharmacy: [place], [place] - [address] [place] [address] [address] [place] [address] [address] [facility] [address] [id number] - [address] [place] [address] [facility] - [facility], [place] - [address] [facility] [address] [facility] [address] Advance Care Planning: Attempt Cardiopulmonary Resuscitation - Inpatient <no information> -Advanced Directive: No, need to discuss (RS referral sent for AD discussion) Current Functional Ability: Assistive Person Functional Status Prior to Admission: Independent Home Environment: Others in the home: child(lucian), minor (lives with her 15yo son). Current Living Arrangements: home/apartment/condo. Accessibility Concerns:house with 3 floors and 2 [address]. Current DME: none [address] [facility] [id number] Social & Family Supports: All names listed below confirmed with patient as current and correct Extended Emergency Contact Information Primary Emergency Contact: Tiffany Ro, [facility] Mobile Relation: Mother Current Care Provided [...] RS for AD discussion today. Registered Nurse Filtering Machine Tender Helper / [employer] Teacher will continue to follow patient???s progress and [...] in an outpatient cardiac rehabilitation program at [facility] was discussed. Patient agrees to a [...] Operative Note Patient Name: Isa Ro : [id number] MR#: [id number] Case Date: 03/19/2024 Surgeon: Surgeons and Role: [...] 10:40 AM EDT Office Visit Cardiology at [address] [address] Herlinda Weaver PA [facility] [place] [address] Scheduled Referrals Name Type Priority Associated Diagnoses [...] 5:06 AM EDT) Neutrophil % 71.6 % [facility] Neutrophil Absolute 8.34(H) 1.70 - 6.10 x10(3)/[facility] Lymph % 17.4 % [facility] Lymphocytes Abs 2.0 0.9 - 3.2 x10(3)/[facility]OR[facility] Monocyte % 8.2 % [facility] Monocyte Abs 1.0(H) 0.3 - 0.9 x10(3)/[facility]OR[facility] Eos % 2.2 % [facility] Eosinophils Abs 0.3 0.0 - 0.4 x10(3)/[facility] Basophil % 0.3 % [facility] Baso Absolute 0.0 0.0 - 0.1 x10(3)/[facility] LABOR[facility] Immature Gran % 0.30 % [facility] Comment: Immature granulocytes(IG's)percentage and absolute count will include metamyelocytes, myelocytes, and promyelocytes. Blood smears from CBCs yielding IG's will be scanned manually for concordance. If this scan disagrees with the automated IG or if promyelocytes are noted, a manual differential will be performed. Immature Gran Absolute 0.03 0.00 - 0.04 x10(3)/[facility] LABORATORY Blood 03/22/2024 5:06 AM EDT 03/22/2024 5:12 AM EDT Narrative Resulting Agency Comment Spec In Lab Horace Hancock MD HEMATOLOGY ORDERABLE S [facility] [place] [address] * (ABNORMAL) Hemogram (03/22/2024 5:06 AM EDT) White Blood Cell 11.6(H) 4.0 - 9.5 x10(3)/[facility]OR[facility] Red Blood Cell 4.80 4.00 - 5.21 x10(6)/mc L [facility] Hemoglobin 13.5 11.7 - 15.5 g/dL [facility] Hematocrit 40.3 35.7 - 45.8 % [facility] Mean Cell Volume 84.0 82.6 - 94.4 fL [facility] Mean Cell Hemoglobin 28.1 27.1 - 32.0 pg [facility] Mean Cell Hemoglobin Concentration 33.5 31.7 - 35.0 g/dL [facility] Platelet 232 145 - 357 x10(3)/mc L [facility] RDW Standard Deviation 42.2 37.0 - 46.0 fL [facility] RDW coefficient of variation 13.5 11.5 - 14.1 % [facility] Mean Platelet Volume 9.7 7.6 - 12.9 fL [facility] NRBC% auto 0.0 % [facility] NRBC Absolute 0.000 0.000 - 0.000 x10(3)/mc L [facility] Blood 03/22/2024 5:06 AM EDT 03/22/2024 5:12 AM EDT Narrative Resulting Agency Comment Spec In Lab Horace Hancock MD HEMATOLOGY ORDERABLE S [facility] [place] [address] * Basic Metabolic Panel (non-fasting) (03/22/2024 5:06 AM EDT) Glucose 107 65 - 199 mg/dL [facility] Comment:Diabetes: >=200 mg/d L plus symptoms Blood Urea Nitrogen 18 8 - 18 mg/dL [facility] Creatinine 0.87 0.70 - 1.20 mg/dL [facility] Sodium 138 135 - 145 mmol/L [facility] Potassium 4.1 3.5 - 5.0 mmol/L [facility] Comment: Please note: ??Patients with WBC >100,000 may have falsely elevated Potassium levels. ??For accurate Potassium quantification in these patients send serum separator tube (gold top) for subsequent determinations. ??Contact the Clinical Chemistry Laboratory if there are any questions. Chloride 104 98 - 107 mmol/L [facility] Carbon Dioxide 24 22 - 31 mmol/L [facility] Anion Gap 10 5 - 15 mmol/L [facility] Calcium 9.2 8.5 - 10.5 mg/dL [facility] Est Glomerular Filtration Rate 76 >=60 mL/min/1. 73 m?? [facility] Comment: This patient's estimated GFR [...] CHEMISTRY ORDERABLES Performing Organization Address [facility] Co de Phone Number [facility] [place] [address] * Magnesium (03/22/2024 5:06 AM EDT) Magnesium 0.90 0.69 - 1.07 mmol/L [facility] Blood 03/22/2024 5:06 AM EDT 03/22/2024 5:12 AM EDT Narrative Resulting Agency Comment Spec In Lab Destin Ambrosio MD CHEMISTRY ORDERABLES [facility] [place] [address] * (ABNORMAL) Differential, Automated (03/21/2024 2:57 AM EDT) [facility] Neutrophil % 63.0 % [facility] Neutrophil Absolute 6.70(H) 1.70 - 6.10 x10(3)/ L [facility] Lymph % 24.9 % [facility] Lymphocytes Abs 2.6 0.9 - 3.2 x10(3)/ L [facility] Monocyte % 8.7 % [facility] Monocyte Abs 0.9 0.3 - 0.9 x10(3)/ L [facility] Eos % 2.8 % [facility] Eosinophils Abs 0.3 0.0 - 0.4 x10(3)/[facility] LABOR[facility] Basophil % 0.3 % [facility] Baso Absolute 0.0 0.0 - 0.1 x10(3)/ L [facility] Immature Gran % 0.30 % [facility] Comment: Immature granulocytes(IG's)percentage and absolute count will include metamyelocytes, myelocytes, and promyelocytes. Blood smears from CBCs yielding IG's will be scanned manually for concordance. If this scan disagrees with the automated IG or if promyelocytes are noted, a manual differential will be performed. Immature Gran Absolute 0.03 0.00 - 0.04 x10(3)/ L [facility] Blood 03/21/2024 2:57 AM EDT 03/21/2024 3:03 AM EDT Narrative Resulting Agency Comment Spec In Lab Horace Hancock MD HEMATOLOGY ORDERABLE S [facility] [place] [address] * (ABNORMAL) Hemogram (03/21/2024 2:57 AM EDT) [facility] White Blood Cell 10.6(H) 4.0 - 9.5 x10(3)/[facility] LABOR[facility] Red Blood Cell 4.54 4.00 - 5.21 x10(6)/[facility] Hemoglobin 12.8 11.7 - 15.5 g/dL [facility] Hematocrit 38.2 35.7 - 45.8 % [facility] Mean Cell Volume 84.1 82.6 - 94.4 fL [facility] Mean Cell Hemoglobin 28.2 27.1 - 32.0 pg [facility] Mean Cell Hemoglobin Concentration 33.5 31.7 - 35.0 g/dL [facility] Platelet 242 145 - 357 x10(3)/[facility] LABORATORY RDW Standard Deviation 42.4 37.0 - 46.0 [facility] LAB[facility]ATORY RDW coefficient of variation 13.7 11.5 - 14.1 % [facility] Mean Platelet Volume 9.5 7.6 - 12.9 fL [facility] NRBC% auto 0.0 % [facility] NRBC Absolute 0.000 0.000 - 0.000 x10(3)/[facility] Blood 03/21/2024 2:57 AM EDT 03/21/2024 3:03 AM EDT Narrative Resulting Agency Comment Spec In Lab Horace Hancock MD HEMATOLOGY ORDERABLE S [facility] [place] [address] * Basic Metabolic Panel (non-fasting) (03/21/2024 2:57 AM EDT) [facility] Glucose 98 65 - 199 mg/dL [facility] Comment:Diabetes: >=200 mg/d L plus symptoms Blood Urea Nitrogen 15 8 - 18 mg/dL [facility] Creatinine 0.82 0.70 - 1.20 mg/dL [facility] Sodium 144 135 - 145 mmol/L [facility] Potassium 4.2 3.5 - 5.0 mmol/L [facility] Comment: Please note: ??Patients with WBC >100,000 may have falsely elevated Potassium levels. ??For accurate Potassium quantification in these patients send serum separator tube (gold top) for subsequent determinations. ??Contact the Clinical Chemistry Laboratory if there are any questions. Chloride 107 98 - 107 mmol/L [facility] Carbon Dioxide 25 22 - 31 mmol/L [facility] Anion Gap 12 5 - 15 mmol/L [facility] Calcium 9.2 8.5 - 10.5 mg/dL [facility] Est Glomerular Filtration Rate 82 >=60 mL/min/1. 73 m?? [facility] Comment: This patient's estimated GFR [...] In Lab Horace Hancock MD CHEMISTRY ORDERABLES [facility] [place] [address] * Magnesium (03/21/2024 2:57 AM EDT) Magnesium 0.91 0.69 - 1.07 mmol/L [facility] Blood 03/21/2024 2:57 AM EDT 03/21/2024 3:03 AM EDT Narrative Resulting Agency Comment Spec In Lab Destin Ambrosio MD CHEMISTRY ORDERABLES Performing Organization Address [facility] Co de Phone Number [facility] [place] [address] * Metanephrines, Fractionated Free, plasma (03/21/2024 2:57 AM EDT) Normetanephrine, Free (JANUARY) 0.47 <0.90 nmol/L [facility] Comment: Test Performed by: [facility] [place] [address] Helper Marble Finisher: Chasity Hernandez Ph.D.; CLIA# [id number] Metanephrine, Free (JANUARY) <0.20 <0.50 nmol/L [facility] Comment: ADDITIONAL INFORMATION This test was developed and its performance characteristics determined by [facility] in a manner consistent with CLIA requirements. This test has not been cleared or approved by the U.S. Food and Drug Administration. Test Performed by: [facility] [place] [address] Helper Marble Finisher: Chasity Hernandez Ph.D.; CLIA# [id number] Blood 03/21/2024 2:57 AM EDT 03/21/2024 11:29 AM EDT Narrative Resulting Agency Comment Spec In Lab Horace Hancock MD LAB SEND OUT ORDERAB LES Performing Organization Address City/[facility]/ZIP Co de Phone Number [facility] [place] [address] * Iron and TIBC (03/20/2024 10:38 AM EDT) Iron 57 30 - 150 mcg/dL [facility] TIBC 278 250 - 450 mcg/dL [facility] Iron Saturation 21 20 - 50 % [facility] Blood Venous Draw / Unknown 03/20/2024 10:38 AM EDT 03/20/2024 10:52 AM EDT Narrative Resulting Agency Comment Spec In Lab Horace Hancock MD CHEMISTRY ORDERABLES [facility] [place] [address] * (ABNORMAL) Differential, Automated (03/20/2024 10:38 AM EDT) Neutrophil % 73.1 % [facility] Neutrophil Absolute 9.60(H) 1.70 - 6.10 x10(3)/[facility] LABOR[facility] Lymph % 17.3 % [facility] Lymphocytes Abs 2.3 0.9 - 3.2 x10(3)/[facility] Monocyte % 7.5 % [facility] Monocyte Abs 1.0(H) 0.3 - 0.9 x10(3)/[facility] Eos % 1.5 % [facility] Eosinophils Abs 0.2 0.0 - 0.4 x10(3)/[facility] Basophil % 0.3 % [facility] Baso Absolute 0.0 0.0 - 0.1 x10(3)/[facility] LABORATORY Immature Gran % 0.30 % [facility] Comment: Immature granulocytes(IG's)percentage and absolute count will include metamyelocytes, myelocytes, and promyelocytes. Blood smears from CBCs yielding IG's will be scanned manually for concordance. If this scan disagrees with the automated IG or if promyelocytes are noted, a manual differential will be performed. Immature Gran Absolute 0.04 0.00 - 0.04 x10(3)/ L [facility] Blood 03/20/2024 10:3 8 AM EDT 03/20/2024 10:47 AM EDT Narrative Resulting Agency Comment Spec In Lab Horace Hancock MD HEMATOLOGY ORDERABLE S Performing Organization Address City/[facility]/ZIP Co de Phone Number [facility] [place] [address] * (ABNORMAL) Hemogram (03/20/2024 10:38 AM EDT) White Blood Cell 13.2(H) 4.0 - 9.5 x10(3)/mc L [facility] Red Blood Cell 4.66 4.00 - 5.21 x10(6)/mc L [facility] Hemoglobin 13.0 11.7 - 15.5 g/dL [facility] Hematocrit 38.7 35.7 - 45.8 % [facility] Mean Cell Volume 83.0 82.6 - 94.4 fL [facility] Mean Cell Hemoglobin 27.9 27.1 - 32.0 pg [facility] Mean Cell Hemoglobin Concentration 33.6 31.7 - 35.0 g/dL [facility] Platelet 238 145 - 357 x10(3)/mc L [facility] RDW Standard Deviation 41.7 37.0 - 46.0 [facility] LABORATORY RDW coefficient of variation 13.8 11.5 - 14.1 % [facility] Mean Platelet Volume 9.8 7.6 - 12.9 fL [facility] NRBC% auto 0.0 % [facility] LABOR[facility]ORY NRBC Absolute 0.000 0.000 - 0.000 x10(3)/mc L [facility] Blood 03/20/2024 10:3 8 AM EDT 03/20/2024 10:47 AM EDT Narrative Resulting Agency Comment Spec In Lab Horace Hancock MD HEMATOLOGY ORDERABLE S Performing Organization Address City/[facility]/ZIP Co de Phone Number [facility] [place] [address] * Magnesium (03/20/2024 10:38 AM EDT) Magnesium 0.88 0.69 - 1.07 mmol/L [facility] Blood 03/20/2024 10:3 8 AM EDT 03/20/2024 10:47 AM EDT Narrative Resulting Agency Comment Spec In Lab Horace Hancock MD CHEMISTRY ORDERABLES [facility] [place] [address] * Basic Metabolic Panel (non-fasting) (03/20/2024 10:38 AM EDT) Glucose 108 65 - 199 mg/dL [facility] Comment:Diabetes: >=200 mg/d L plus symptoms Blood Urea Nitrogen 11 8 - 18 mg/dL [facility] Creatinine 0.82 0.70 - 1.20 mg/dL [facility] Sodium 137 135 - 145 mmol/L [facility] Potassium 4.3 3.5 - 5.0 mmol/L [facility] Comment: Please note: ??Patients with WBC >100,000 may have falsely elevated Potassium levels. ??For accurate Potassium quantification in these patients send serum separator tube (gold top) for subsequent determinations. ??Contact the Clinical Chemistry Laboratory if there are any questions. Chloride 101 98 - 107 mmol/L [facility] Carbon Dioxide 22 22 - 31 mmol/L [facility] Anion Gap 14 5 - 15 mmol/L [facility] Calcium 9.0 8.5 - 10.5 mg/dL [facility] Est Glomerular Filtration Rate 82 >=60 mL/min/1. 73 m?? [facility] Comment: This patient's estimated GFR [...] Hancock MD CHEMISTRY ORDERABLES Performing Organization Address City/[facility]/ZIP Co de Phone Number [facility] [place] [address] * Magnesium (03/19/2024 11:01 PM EDT) Magnesium 0.96 0.69 - 1.07 mmol/L [facility] Blood Venous Draw / Unknown 03/19/2024 11:01 PM EDT 03/19/2024 11:06 PM EDT Narrative Resulting Agency Comment Spec In Lab Horace Hancock MD CHEMISTRY ORDERABLES Performing Organization Address City/[facility]/ZIP Co de Phone Number [facility] [place] [address] * (ABNORMAL) Troponin (03/19/2024 11:01 PM EDT) Troponin-T, High Sensitivity 2,406(H) <=14 ng/L [facility] Comment: [...] troponin value can be found in the [facility] Laboratory Test Catalog Troponin - [facility] Laboratory Test Catalog Reference: Fourth [place] Definition of Myocardial Infarction. Journal of the [place] [employer] 2018;72:7609-4129 Blood 03/19/2024 11:0 1 PM EDT 03/19/2024 11:05 PM EDT Narrative Resulting Agency Comment Spec In Lab Franky Mead MD CHEMISTRY ORDERABLE S [facility] [place] [address] * (ABNORMAL) Troponin (03/19/2024 8:40 PM EDT) Troponin-T, High Sensitivity 2,586(H) <=14 ng/L [facility] Comment: [...] troponin value can be found in the [facility] Laboratory Test Catalog Troponin - [facility] Laboratory Test Catalog Reference: Fourth [place] Definition of Myocardial Infarction. Journal of the [place] [employer] 2018;72:6158-5539 Blood 03/19/2024 8:40 PM EDT 03/19/2024 8:45 PM EDT Narrative Resulting Agency Comment Spec In Lab Ganesh Nguyen MD CHEMISTRY ORDERAB LES [facility] [place] [address] * EKG 12 Lead (03/19/2024 8:32 PM EDT) Ventricular rate 70 BPM MUSE SYSTEM Atrial Rate 70 BPM MUSE SYSTEM P-R Interval 158 ms MUSE SYSTEM QRS Duration 78 ms MUSE SYSTEM Q-T Interval 470 ms MUSE SYSTEM QTC Calculated (Bezet) 507 ms MUSE SYSTEM Calculated P [place] 62 degrees MUSE SYSTEM Calculated R [place] 42 degrees MUSE SYSTEM Calculated T [place] -158 degrees MUSE SYSTEM INTERPRETATION Normal sinus rhythm Poor R wave progression T wave abnormality, consider lateral ischemia Prolonged QT Abnormal ECG When compared with ECG of 19-MAR-2024 17:27, No significant change was found Confirmed by MD Ambrosio David ([id number]) on 03/23/2024 8:10:58 AM MUSE SYSTEM 03/19/2024 [...] (Bezet) 496 ms MUSE SYSTEM Calculated P [place] 80 degrees MUSE SYSTEM Calculated R [place] 87 degrees MUSE SYSTEM Calculated T [place] -96 degrees MUSE SYSTEM INTERPRETATION Normal sinus rhythm T wave abnormality, consider lateral ischemia Prolonged QT Abnormal ECG When compared with ECG of 19-MAR-2024 02:23, Non-specific change in ST segment in Anterior leads T wave inversion more evident in Inferior leads T wave inversion now evident in Anterolateral leads Confirmed by MD Ambrosio David ([id number]) on 03/23/2024 8:10:45 AM MUSE SYSTEM 03/19/2024 5:27 PM EDT 03/23/2024 8:10 AM EDT Unknown ECG ORDERABLES MUSE SYSTEM * (ABNORMAL) Troponin (03/19/2024 2:45 PM EDT) Troponin-T, High Sensitivity 3,792(H) <=14 ng/L [facility] Comment: [...] troponin value can be found in the [facility] Laboratory Test Catalog Troponin - [facility] Laboratory Test Catalog Reference: Fourth [place] Definition of Myocardial Infarction. Journal of the [place] [employer] 2018;72:8886-7040 Blood 03/19/2024 2:45 PM EDT 03/19/2024 2:54 PM EDT Narrative Resulting Agency Comment Spec In Lab Horace Hancock MD CHEMISTRY ORDERABLES Performing Organization Address City/[facility]/ZIP Co de Phone Number [facility] [place] [address] * ECHO COMPLETE W CONTRAST (03/19/2024 10:53 AM EDT) Anatomical Region Laterality Modality Cardiac Other 03/19/2024 9:03 AM EDT Narrative 03/19/2024 12:12 PM EDT [address] [place] [address] ? Echocardiogram Report Name: ISA RO Chuy ?Study Date: 03/19/2024 09:03 AMBP: 129/68 mmHg ? Patient Location: 4A : 1965 ? Height: 158 cm ? Account: [id number] Age: 59 yrs ? Weight: 57 kg Gender: Female ?BSA: 1.6 m2 Ordering Physician: GANESH NGUYEN Referring Physician: GANESH NGUYEN Performed By: PEREZ Carlos Reason For Study: STEMI involving LAD Exam Location: [facility]. Interpretation Summary Normal left ventricle size with mildly reduced LV function. LV ejection fraction 49%. LAD territory wall motion abnormality, predominantly involving the LV apex. No LV thrombus visualized with echo contrast. Normal right ventricle. No significant valvular abnormalities. Compared with prior echo dated 08/28/23, LV function has now decreased and new wall motion abnormalities. Procedure Complete-[id number]. Image enhancement Definity was used for left [...] Note Destin Ambrosio MD - 03/19/2024 [address] [place] [address] Echocardiogram Report Name: ISA RO Study Date: 409:03 AMBP: 129/68 mmHg Patient Location: : 1965 Height: 158 cm Account: [id number] Age: 59 yrs Weight: 57 kg Gender: Female BSA: 1.6 m2 Ordering Physician: GANESH NGUYEN Referring Physician: GANESH NGUYEN Performed By: PEREZ Carlos Reason For Study: STEMI involving LAD Exam Location: [facility]. Interpretation Summary Normal left ventricle size with mildly reduced LV function. LV ejectionfraction 49%. LAD territory wall motion abnormality, predominantly involving the LVapex. No LV thrombus visualized with echo contrast. Normal right ventricle. No significant valvular abnormalities. Compared with prior echo dated 08/28/23, LV function has now decreased andnew wall motion abnormalities. Procedure Complete-[id number]. Image enhancement Definity was used for left [...] View (03/19/2024 8:37 AM EDT) WORKSTATION ID [id number] RAD Anatomical Region Laterality Modality Chest N/A [...] who have questions please contact the health long term care phlebotomist that requested your imaging first. ? Narrative [...] patients who have questions please contactthe health long term care phlebotomist that requested your imaging first. Delores Jett MD IMG DX ORDERABLES * Hemoglobin A1c (03/19/2024 5:25 AM EDT) Hemoglobin A1c 5.6 4.3 - 5.6 % [facility] Comment: Reference Range: 4.3 - [...] Mellitus, Diabetes Care 2013; 36: Suppl. 1, L85-36 Estimated Average Glucose 114 mg/dL [facility] Blood Venous Draw / Unknown 03/19/2024 5:25 AM EDT 03/19/2024 3:52 PM EDT Narrative Resulting Agency Comment Spec In Lab Horace Hancock MD CHEMISTRY ORDERABLES [facility] [place] [address] * (ABNORMAL) Differential, Automated (03/19/2024 5:25 AM EDT) Neutrophil % 90.0 % [facility] Neutrophil Absolute 16.73(H) 1.70 - 6.10 x10(3)/[facility] LABORATORY Lymph % 5.2 % [facility] LABORATORY Lymphocytes Abs 1.0 0.9 - 3.2 x10(3)/[facility] LABORATORY Monocyte % 4.2 % [facility] LABORAT[facility] Monocyte Abs 0.8 0.3 - 0.9 x10(3)/[facility] LABORATORY Eos % 0.0 % [facility] LABORATORY Eosinophils Abs 0.0 0.0 - 0.4 x10(3)/[facility] LABORATORY Basophil % 0.2 % [facility]OR[facility] Baso Absolute 0.0 0.0 - 0.1 x10(3)/[facility] LABORATORY Immature Gran % 0.40 % [facility] Comment: Immature granulocytes(IG's)percentage and absolute count will include metamyelocytes, myelocytes, and promyelocytes. Blood smears from CBCs yielding IG's will be scanned manually for concordance. If this scan disagrees with the automated IG or if promyelocytes are noted, a manual differential will be performed. Immature Gran Absolute 0.08(H) 0.00 - 0.04 x10(3)/[facility] LABORATORY Blood 03/19/2024 5:25 AM EDT 03/19/2024 5:34 AM EDT Narrative Resulting Agency Comment Spec In Lab Ganesh Nguyen MD HEMATOLOGY ORDERA BLES [facility] [place] [address] * (ABNORMAL) Hemogram (03/19/2024 5:25 AM EDT) White Blood Cell 18.6(H) 4.0 - 9.5 x10(3)/[facility] LABORATORY Red Blood Cell 4.92 4.00 - 5.21 x10(6)/[facility] LABORATORY Hemoglobin 13.7 11.7 - 15.5 g/dL [facility] Hematocrit 40.6 35.7 - 45.8 % [facility] Mean Cell Volume 82.5(L) 82.6 - 94.4 fL [facility] Mean Cell Hemoglobin 27.8 27.1 - 32.0 pg [facility] Mean Cell Hemoglobin Concentration 33.7 31.7 - 35.0 g/dL [facility] Platelet 285 145 - 357 x10(3)/mc L [facility] RDW Standard Deviation 41.1 37.0 - 46.0 [facility] LABORATORY RDW coefficient of variation 13.6 11.5 - 14.1 % [facility] Mean Platelet Volume 9.5 7.6 - 12.9 [facility] LABORATORY NRBC% auto 0.0 % [facility] NRBC Absolute 0.000 0.000 - 0.000 x10(3)/mc L [facility] Blood 03/19/2024 5:25 AM EDT 03/19/2024 5:34 AM EDT Narrative Resulting Agency Comment Spec In Lab Ganesh Nguyen MD HEMATOLOGY ORDERA BLES [facility] [place] [address] * Lipid Panel (Reflex Direct LDL) (03/19/2024 5:25 AM EDT) Cholesterol, Total 324 mg/dL [facility] Comment: Desirable: ? <200 mg/dL Borderline High: 200-239 mg/dL Higher: ?>zk=708 mg/dL Triglyceride 200 mg/dL [facility] Comment: Normal: ?<150 mg/dL Borderline High: 150-199 mg/dL High: ?200-499 mg/dL Very High: ? >og=137 mg/dL HDL Cholesterol 68 mg/dL [facility] Comment: Females: High Risk: <50 mg/dL Males: High Risk: <40 mg/dL LDL Cholesterol 216 mg/dL [facility] Comment: Desirable: ? <100 mg/dL Above Desirable: 100-129 mg/dL Borderline High: 130-159 mg/dL High: ?160-189 mg/dL Very High: ? >bt=422 mg/dL Lipid Interpretation See Note [facility] Comment: It is important to [...] ACC/AHA Guidelines (most recently Jw et al. [facility] 06/17/22): For individuals with atherosclerotic cardiovascular disease (ASCVD)or LDL >eq=934 mg/dL, use a high-intensity statin (40-80 mg [...] Lab Ganesh Nguyen MD CHEMISTRY ORDERAB LES [facility] [place] [address] * (ABNORMAL) Troponin (03/19/2024 5:25 AM EDT) Troponin-T, High Sensitivity 1,276(H) <=14 ng/L [facility] Comment: [...] troponin value can be found in the [facility] Laboratory Test Catalog Troponin - [facility] Laboratory Test Catalog Reference: Fourth [place] Definition of Myocardial Infarction. Journal of the [place] [employer] 2018;72:9428-4029 Blood 03/19/2024 5:25 AM EDT 03/19/2024 5:34 AM EDT Narrative Resulting Agency Comment Spec In Lab Ganesh Nguyen MD CHEMISTRY ORDERAB LES Performing Organization Address [facility] Co de Phone Number [facility] [place] [address] * APTT (03/19/2024 5:25 AM EDT) Partial Thromboplastin Time 29 25 - 37 sec [facility] Comment: The PTT is NOT appropriate for heparin monitoring. Use the Anti-Xa level for heparin monitoring (HEP UFH) or LMWH monitoring (HEP LMW). A PTT less than 37 seconds generally indicates adequate hemostasis. Blood 03/19/2024 5:25 AM EDT 03/19/2024 5:34 AM EDT Narrative Resulting Agency Comment Spec In Lab Ganesh Nguyen MD HEMATOLOGY ORDERA BLES Performing Organization Address [facility] de Phone Number [facility] [place] [address] * Prothrombin Time (03/19/2024 5:25 AM EDT) Prothrombin Time 10.9 9.4 - 12.5 sec [facility] International Normalization Ratio 1.0 [facility] Comment: An INR <2.0 indicates [...] ORDERA BLES Performing Organization Address [facility] Co de Phone Number [facility] [place] [address] * (ABNORMAL) Comprehensive metabolic panel (non-fasting) (03/19/2024 5:25 AM EDT) Glucose 181 65 - 199 mg/dL [facility] Comment:Diabetes: >=200 mg/d L plus symptoms Blood Urea Nitrogen 14 8 - 18 mg/dL [facility] Creatinine 0.91 0.70 - 1.20 mg/dL [facility] Sodium 137 135 - 145 mmol/L [facility] Potassium 4.2 3.5 - 5.0 mmol/L [facility] Comment: Please note: ??Patients with WBC >100,000 may have falsely elevated Potassium levels. ??For accurate Potassium quantification in these patients send serum separator tube (gold top) for subsequent determinations. ??Contact the Clinical Chemistry Laboratory if there are any questions. Chloride 100 98 - 107 mmol/L [facility] Carbon Dioxide 22 22 - 31 mmol/L [facility] Anion Gap 15 5 - 15 mmol/L [facility] Calcium 8.7 8.5 - 10.5 mg/dL [facility] Protein, Total 7.2 6.1 - 8.0 g/dL [facility] Albumin 4.5 3.2 - 5.2 g/dL [facility] Aspartate Aminotransferase 95(H) 0 - 30 unit/L [facility] Comment:result rechecked-bz Alanine Aminotransferase 31(H) 0 - 30 unit/L [facility] Alkaline Phosphatase 70 35 - 105 unit/L [facility] Bilirubin, Total 0.5 0.2 - 1.3 mg/dL [facility] Est Glomerular Filtration Rate 72 >=60 mL/min/1. 73 m?? [facility] Comment: This patient's estimated GFR [...] ORDERAB LES Performing Organization Address [facility] Co de Phone Number [facility] [place] [address] * EKG 12 Lead (03/19/2024 2:23 AM EDT) Ventricular rate 67 BPM MUSE SYSTEM Atrial Rate 67 BPM MUSE SYSTEM P-R Interval 152 ms MUSE SYSTEM QRS Duration 78 ms MUSE SYSTEM Q-T Interval 500 ms MUSE SYSTEM QTC Calculated (Bezet) 528 ms MUSE SYSTEM Calculated P [place] 54 degrees MUSE SYSTEM Calculated R [place] 56 degrees MUSE SYSTEM Calculated T [place] 31 degrees MUSE SYSTEM INTERPRETATION Normal sinus rhythm Prolonged QT Abnormal ECG No previous ECGs available Confirmed by MD Ambrosio David ([id number]) on 03/23/2024 8:10:32 AM MUSE SYSTEM 03/19/2024 2:23 AM EDT 03/23/2024 8:10 AM EDT Ganesh Nguyen MD ECG ORDERABLES Performing Organization Address [facility] de Phone Number MUSE SYSTEM * (ABNORMAL) Differential, Automated (03/19/2024 2:20 AM EDT) Neutrophil % 89.8 % [facility] Neutrophil Absolute 15.44(H) 1.70 - 6.10 x10(3)/mc L [facility] Lymph % 6.4 % [facility] Lymphocytes Abs 1.1 0.9 - 3.2 x10(3)/mc L [facility] Monocyte % 2.9 % [facility] Monocyte Abs 0.5 0.3 - 0.9 x10(3)/mc L [facility] Eos % 0.1 % [facility] Eosinophils Abs 0.0 0.0 - 0.4 x10(3)/[facility] LABORATORY Basophil % 0.3 % [facility] Baso Absolute 0.0 0.0 - 0.1 x10(3)/[facility] LABORATORY Immature Gran % 0.50 % [facility] Comment: Immature granulocytes(IG's)percentage and absolute count will include metamyelocytes, myelocytes, and promyelocytes. Blood smears from CBCs yielding IG's will be scanned manually for concordance. If this scan disagrees with the automated IG or if promyelocytes are noted, a manual differential will be performed. Immature Gran Absolute 0.08(H) 0.00 - 0.04 x10(3)/[facility] LABORATORY Blood 03/19/2024 2:20 AM EDT 03/19/2024 2:59 AM EDT Narrative Resulting Agency Comment Spec In Lab Ganesh Nguyen MD HEMATOLOGY ORDERA BLES [facility] [place] [address] * (ABNORMAL) Hemogram (03/19/2024 2:20 AM EDT) White Blood Cell 17.2(H) 4.0 - 9.5 x10(3)/ L [facility] Red Blood Cell 4.70 4.00 - 5.21 x10(6)/ L [facility] Hemoglobin 13.3 11.7 - 15.5 g/dL [facility] Hematocrit 38.7 35.7 - 45.8 % [facility] Mean Cell Volume 82.3(L) 82.6 - 94.4 fL [facility] Mean Cell Hemoglobin 28.3 27.1 - 32.0 pg [facility] Mean Cell Hemoglobin Concentration 34.4 31.7 - 35.0 g/dL [facility] Platelet 281 145 - 357 x10(3)/mc L [facility] RDW Standard Deviation 41.0 37.0 - 46.0 fL [facility] RDW coefficient of variation 13.7 11.5 - 14.1 % [facility] Mean Platelet Volume 9.7 7.6 - 12.9 fL [facility] NRBC% auto 0.0 % [facility] NRBC Absolute 0.000 0.000 - 0.000 x10(3)/mc L [facility] Blood 03/19/2024 2:20 AM EDT 03/19/2024 2:59 AM EDT Narrative Resulting Agency Comment Spec In Lab Ganesh Nguyen MD HEMATOLOGY ORDERA BLES [facility] [place] [address] * (ABNORMAL) Troponin (03/19/2024 2:20 AM EDT) Troponin-T, High Sensitivity 960(H) <=14 ng/L [facility] [...] troponin value can be found in the [facility] Laboratory Test Catalog Troponin - [facility] Laboratory Test Catalog Reference: Fourth [place] Definition of Myocardial Infarction. Journal of the [place] [employer] 2018;72:[id number] Blood 03/19/2024 2:20 AM EDT 03/19/2024 2:59 AM EDT Narrative Resulting Agency Comment Spec In Lab Ganesh Nguyen MD CHEMISTRY ORDERAB LES Performing Organization Address [facility] de Phone Number [facility] [place] [address] * (ABNORMAL) APTT (03/19/2024 2:20 AM EDT) Partial Thromboplastin Time 123(Criti lewis) 25 - 37 sec [facility] Comment: Critical Result called by [...] MD HEMATOLOGY ORDERA BLES Performing Organization Address [facility] de Phone Number [facility] [place] [address] * Prothrombin Time (03/19/2024 2:20 AM EDT) Prothrombin Time 11.7 9.4 - 12.5 sec [facility] International Normalization Ratio 1.0 [facility] Comment: An INR <2.0 indicates [...] ORDERA BLES Performing Organization Address [facility] Co de Phone Number [facility] [place] [address] * (ABNORMAL) Hepatic Function Panel (03/19/2024 2:20 AM EDT) Pathologist [facility] Protein, Total 6.7 6.1 - 8.0 g/dL [facility] Albumin 4.3 3.2 - 5.2 g/dL [facility] Aspartate Aminotransferase 49(H) 0 - 30 unit/L [facility] Alanine Aminotransferase 26 0 - 30 unit/L [facility] Alkaline Phosphatase 67 35 - 105 unit/L [facility] Bilirubin, Total 0.4 0.2 - 1.3 mg/dL [facility] Bilirubin, Direct 0.1 0.0 - 0.3 mg/dL [facility] Blood 03/19/2024 2:20 AM EDT 03/19/2024 2:59 AM EDT Narrative Resulting Agency Comment Spec In Lab Ganesh Nguyen MD CHEMISTRY ORDERAB LES Performing Organization Address [facility] Co de Phone Number [facility] [place] [address] * (ABNORMAL) pro-Brain Natriuretic Peptide (03/19/2024 2:20 AM EDT) NT-proBNP 529(H) <=124 pg/mL [facility] Blood 03/19/2024 2:20 AM EDT 03/19/2024 2:59 AM EDT Narrative Resulting Agency Comment Spec In Lab Ganesh Nguyne MD CHEMISTRY ORDERAB LES Performing Organization Address [facility] Co de Phone Number [facility] [place] [address] * Phosphorus (03/19/2024 2:20 AM EDT) Pathologist [facility] Phosphorus 3.8 2.5 - 4.5 mg/dL [facility] Blood 03/19/2024 2:20 AM EDT 03/19/2024 2:59 AM EDT Narrative Resulting Agency Comment Spec In Lab Ganesh Nguyen MD CHEMISTRY ORDERAB LES Performing Organization Address [facility] Co de Phone Number [facility] [place] [address] * Magnesium (03/19/2024 2:20 AM EDT) Pathologist [facility] Magnesium 0.71 0.69 - 1.07 mmol/L [facility] Blood 03/19/2024 2:20 AM EDT 03/19/2024 2:59 AM EDT Narrative Resulting Agency Comment Spec In Lab Ganesh Nguyen MD CHEMISTRY ORDERAB LES Performing Organization Address [facility] Co de Phone Number [facility] [place] [address] * (ABNORMAL) Basic Metabolic Panel (non-fasting) (03/19/2024 2:20 AM EDT) Pathologist [facility] Glucose 160 65 - 199 mg/dL [facility] Comment:Diabetes: >=200 mg/d L plus symptoms Blood Urea Nitrogen 14 8 - 18 mg/dL [facility] Creatinine 0.88 0.70 - 1.20 mg/dL [facility] Sodium 137 135 - 145 mmol/L [facility] Potassium 3.9 3.5 - 5.0 mmol/L [facility] Comment: Please note: ??Patients with WBC >100,000 may have falsely elevated Potassium levels. ??For accurate Potassium quantification in these patients send serum separator tube (gold top) for subsequent determinations. ??Contact the Clinical Chemistry Laboratory if there are any questions. Chloride 100 98 - 107 mmol/L [facility] Carbon Dioxide 20(L) 22 - 31 mmol/L [facility] Anion Gap 17(H) 5 - 15 mmol/L [facility] Calcium 8.2(L) 8.5 - 10.5 mg/dL [facility] Est Glomerular Filtration Rate 75 >=60 mL/min/1. 73 m?? [facility] Comment: This patient's estimated GFR [...] Lab Ganesh Nguyen MD CHEMISTRY ORDERAB LES [facility] [place] [address] * (ABNORMAL) Point of Care Blood Gas Historical (03/19/2024 1:41 AM EDT) pH, POC 7.28(Criti lewis) 7.35 - 7.45 [facility] pCO2, POC 40 35 - 45 mmHg [facility] pO2, POC 84(L) 85 - 104 mmHg [facility] Base Excess, POC -8.0(L) -3.0 - 3.0 mmol/L [facility] Bicarbonate, POC 18.6(L) 20.0 - 26.0 mmol/L [facility] Carbon Dioxide, POC 20(L) 22 - 31 mmol/L [facility] Sodium, POC 134(L) 135 - 145 mmol/L [facility] POC Potassium 3.4(L) 3.5 - 5.0 mmol/L [facility] Ionized Calcium, POC 1.09(L) 1.15 - 1.33 mmol/L [facility] POC Hematocrit 38.0 34.0 - 45.0 % [facility] POC Calc Hgb 12.9 11.2 - 15.7 g/dL [facility] Blood 03/19/2024 1:41 AM EDT 03/19/2024 1:41 AM EDT Kathryn Walker MD CHEMISTRY ORDERABL ES Performing Organization Address City/State/[facility] Co de Phone Number [facility] [place] [address] * CARDIAC CATHETERIZATION (03/19/2024 1:36 AM EDT) Anatomical Region Laterality Modality Other Narrative 03/19/2024 7:19 AM EDT ?[facility] ? Cardiac Catheterization/Intervention Report ? Patient Name: Isa Ro. ? Procedure Date: 03/19/2024 ? A #: [id number] ? Primary Physician: Ramo Roy ? Case #: [id number] ? File Name: [id number] ? Catheterization Order Number: [id number] ? [facility] ? Final Report [place], [place] ? Patient Name: ? Isa A. Warnaar ? ID#: ?[id number] ? : ?1965 ? Procedure Date: ? [...] catheter and a 3.5 Fr [place] Eye Chevak 20 Mhz using auto 1 ?mm/sec pullback. [...] ? A premounted 3.00 x 08 mm Ellerslie Bertie (JAHAIRA) was deployed ? with a maximum inflation pressure of 12 atmospheres. ? Another stent insertion was accomplished through a 6 Fr. EBU ? 3.5 guide. ??A premounted 2.00 x 08 mm Ellerslie Bertie (JAHAIRA) was ? deployed. ? The final [...] may require ?modification of this regimen. Consult [facility] Interventional Cardiology for ?questions. ?The 1 year [...] against any medical treatment. Consult ?http://tools.acc.org/DAPTriskapp/#!/content/calculator/ or [facility] ?Interventional Cardiology for questions ? Conclusions: ?* [...] Procedure Note Ramo Roy MD - 03/21/2024 [facility] Cardiac Catheterization/Intervention Report Patient Name: Isa Ro Procedure Date: 03/19/2024 A #: [id number] Primary Physician: Ramo Roy Case #: [id number] File Name: [id number] Catheterization Order Number: [id number] [facility] FinalReport [place], [place] Patient Name: Isa Leungannmarie ID#:[id number] :1965 Procedure Date: March 19, 2024 Case #: [id number] Room: 6 Case Physician: Ramo Roy M.D. Start: 00:55 Fellow: John Munroe M.D. Admission:03/18/2024 Referring Physician: Kay RamanD. Procedures: * Coronary Angiography * Left Heart [...] patientwas designated as ASA Class IV. The [facility] clinical frailty scale is 3: [...] catheter and a 3.5 Fr [place] Eye Chevak 20 Mhz usingauto 1 mm/sec pullback. Imaging [...] The priority for the procedure was Emergent.The [facility] indication for the procedure was [...] The lesion was predilated with a 2.50mm [id number] MM balloon with a maximum inflation pressure of 14atmospheres. A premounted 3.00 x 08 mm Alberto Bertie (JAHAIRA) wasdeployed with a maximum inflation pressure of 12 atmospheres. Another stent insertion was accomplished through a 6 Fr.EBU 3.5 guide. A premounted 2.00 x 08 mm Alberto Bertie (JAHAIRA)was deployed. The final outcome was defined [...] situation mayrequire modification of this regimen. Consult [facility] Interventional Cardiologyfor questions. The 1 year bleeding [...] or against any medical treatment.Consult http://tools.acc.org/DAPTriskapp/#!/content/calculator/ or [facility] Interventional Cardiology for questions Conclusions: * One [...] pH, POC 7.20(Criti lewis) 7.35 - 7.45 [facility] pCO2, POC 38 35 - 45 mmHg [facility] pO2, POC 74(L) 85 - 104 mmHg [facility] Base Excess, POC -14.0(L) -3.0 - 3.0 mmol/L [facility] Bicarbonate, POC 14.5(L) 20.0 - 26.0 mmol/L [facility] Carbon Dioxide, POC 16(L) 22 - 31 mmol/L [facility] Sodium, POC 116(Critic al) 135 - 145 mmol/L [facility] POC Potassium 3.1(L) 3.5 - 5.0 mmol/L [facility] Ionized Calcium, POC 1.04(L) 1.15 - 1.33 mmol/L [facility] POC Hematocrit 39.0 34.0 - 45.0 % [facility] POC Calc Hgb 13.3 11.2 - 15.7 g/dL [facility] Blood 03/19/2024 1:26 AM EDT 03/19/2024 1:26 AM EDT Kathryn Walker MD CHEMISTRY ORDERABL ES [facility] [place] [address] documented in this encounter Visit Diagnoses Diagnosis [...] Routine documented in this encounter Care Teams Track Surfacing Machine Operator Relationship Specialty Start Date End Date None None PCP - General 03/19/24 documented as of this encounter
--- OUTSIDE RECORDS SUMMARY | 2024-04-20 13:10 | XMS_ITS | Encounter Summary ---
Author Organization [facility] [place] [address] Care Team Providers Care Boxing Instructor Name Role Phone None Primary Care Provider Unavailabl e Reason for Visit * Auth/Cert (Routine) Specialty Diagnoses / Procedures Referred By Contac t Referred To Contact Diagnoses Acute ST elevation myocardial infarction (STEMI) due to occlusion of left anterior descending (LAD) coronary artery stemi Procedures EMERGENCY IPI Destin Amborsio MD [facility] [place] [address] [facility] Referral ID Status Reason Start Date Expiration Date Visits Re quested Visits Authorized [id number] 1 Encounter Details Date Type Department Care Team (Latest Contact Info) Description 03/19/2024 8:10 AM EDT - 03/19/2024 11:59 PM EDT Hospital Encounter Non-Invasive [place] [address] Discharge Disposition: Home Social History Tobacco Use [...] 10:40 AM EDT Office Visit Cardiology at [address] [address] Herlinda Weaver PA [facility] [place] [address] documented as of this encounter Procedures Procedure [...] mLs documented in this encounter Care Teams Boxing Instructor Relationship Specialty Start Date End Date None None PCP - General 03/19/24 documented as of this encounter
--- OUTSIDE RECORDS SUMMARY | 2024-04-20 13:10 | XMS_ITS | Encounter Summary ---
Author Organization [facility] Address [address] [place] [address] Care Team Providers Care Erp Pm Name Role Phone Unavailable Primary Care Provider Unavailabl e Encounter Details Date Type Department Care Team (Late st Contact Info) Description 04/30/2010 Results Only [facility] Medicine [address] [address] Pretty Avery MD [address] [place] [id number] Social History Tobacco Use Types Packs/Day Years [...]
--- OUTSIDE RECORDS SUMMARY | 2024-04-20 13:10 | XMS_ITS | Encounter Summary ---
Author Organization [facility] Address [address] [place] [address] Care Team Providers Care Boat Camp Operator Name Role Phone Pretty Avery MD Primary Care Provider [phone] Encounter Details Date Type Department Care Team (Late st Contact Info) Description 09/06/2013 Results Only [facility] Laboratory Services - [facility] ([facility]) [address], [place] [phone] Jake Sabillon FNP [address] [place], [place] [address] Social History Tobacco Use Types Packs/Day Years [...] ANNEEZEQUIEL GREEN Chuy ? Accession #: ? [id number] : ? 1965 (Age: 48) ??F ?Collect Date: ? 09/06/2013 Location: ? [facility] ? Receive Date: ? 09/08/2013 Provider: ?JAKE SABILLON SUPERVISOR AIRCRAFT MAINTENANCE Copy to: ? Specimen/Source: ?Pap Test, Cervix/Endocervix, [...] [facility] 09/06/2013 09/08/2013 Jake Sabillon SUPERVISOR AIRCRAFT MAINTENANCE PATHOLOGY ORDERABLES [facility] [address] [place] [address] documented in this encounter Visit Diagnoses Not on filedocumented in this encounter Care Teams Boat Camp Operator Relationship Specialty Start Date End Date Pretty Avery MD [address] [place] [address] PCP - General 06/05/10 documented as of this encounter
--- OUTSIDE RECORDS SUMMARY | 2024-04-20 13:10 | XMS_ITS | Encounter Summary ---
Author Organization [facility] Address [address] [place] [address] Care Team Providers Care Semiconductor Testing Group Leader Name Role Phone Pretty Avery MD Primary Care Provider [phone] Encounter Details Date Type Department Care Team (Latest Contact Info) Description 03/30/2014 10:20 EDT - 03/30/2014 20:09 EDT Hospital Encounter [facility] [address] [place] [address] Unknown, Provider, Discharge Disposition: Home or Self [...] Code Departure Means Destination Home or Self [facility] documented in this encounter Plan of Treatment Not on file documented as of this encounter Visit Diagnoses Not on filedocumented in this encounter Care Teams Semiconductor Testing Group Leader Relationship Specialty Start Date End Date Pretty Avery MD [address] [place] [address] PCP - General 06/05/10 documented as of this encounter
--- OUTSIDE RECORDS SUMMARY | 2024-04-20 13:10 | XMS_ITS | Encounter Summary ---
Author Organization [facility] Address [address] [place] [address] Care Team Providers Care Water Manager Name Role Phone Unavailable Primary Care Provider Unavailabl e Encounter Details Date Type Department Care Team (Late st Contact Info) Description 05/15/2010 Results Only [facility] Laboratory Services - [facility] ([facility]) [address] [place], [place] [phone] Jake Sabillon FNP [address] [place], [place] [phone] Social History Tobacco Use Types Packs/Day Years [...] ? EZEQUIEL THOMAS ? Accession #: ? [id number] ? : ? 1965 (Age: 45) ??F [...] [facility] 05/15/2010 05/17/2010 Jake Sabillon SCUBA DIVING TEACHER PATHOLOGY ORDERABLES [facility] [address] [place] [address] documented in this encounter Visit Diagnoses Not on filedocumented in this encounter
--- OUTSIDE RECORDS SUMMARY | 2024-04-20 13:10 | XMS_ITS | Encounter Summary ---
Author Organization [facility] Address [address] [place] [address] Care Team Providers Care Assistant Superintendent Name Role Phone Pretty Avery MD Primary Care Provider [phone] Reason for Referral * Consult (Routine) - Closed Specialty Diagnoses / Procedures Referred By Contac t Referred To Contact Diagnoses NSTEMI (non-ST elevated myocardial infarction) ([facility]) S/P coronary artery stent placement Yesy Manuel NP [address] [place] [id number] Alex Soto MD [address] [place] [id number] Referral ID Status Reason Start Date Expiration Date V isits Requested Visits Authorized [id number] Closed Specialty Services Required 03/31/2014 1 1 Question Answer Reason for Request: post NSTEMI post PCI, CAD Scheduling Comments (optional ? describe specific scheduling needs if applicable): 1 month Expected Discharge Date (Inpatient Only): 04/01/2014 Comments Please schedule in [facility] cardiology clinic with Dr Alex Soto or next available machine assembler at that clinic. Office in [place] [phone]; cardiology clinic in [facility] [phone] * Consult (Routine) - Closed Specialty Diagnoses / Procedures Referred By Contac t Referred To Contact Cardiac Rehabilitation Diagnoses NSTEMI (non-ST elevated myocardial infarction) ([facility]) S/P coronary artery stent placement Yesy Manuel NP [address] [facility] [address] [place] [address] Referral ID Status Reason Start Date Expiration Date V isits Requested Visits Authorized [id number] Closed Specialty Services Required 03/31/2014 1 1 Question Answer Reason for Request: post NSTEMI, post pci, CAD Scheduling Comments (optional ? describe specific scheduling needs if applicable): 1 week Expected Discharge Date (Inpatient Only): 04/01/2014 Comments Please refer to [facility] in [facility] Encounter Details Date Type Department Care Team (Late st Contact Info) Description 03/30/2014 20:10 EDT - 04/01/2014 15:30 EDT Hospital Encounter [facility] Cardiac/Telemetry Unit [address], [place] [id number] Waqas Yao MD [address] [facility] [address] [place] [phone] NSTEMI (non-ST elevated myocardial infarction) ([facility]) (Primary Dx); S/P coronary artery stent placement [...] female with h/o HTN 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 Her EKG showed non-specific [...] whichimproved pain. She was later taken for [facility] after a discussion of the need to be on blood thinning medications for 12 months if a stent was to be placed. The patient agreed. Her [facility] had culprit lesionin LAD, which [...] Please refer to [facility] in [facility] Reason for Request: post NSTEMI, post pci, CAD Expected Discharge Date (Inpatient Only): 04/01/2014 Scheduling Time Frame: 1 week Authorizing Provider: Yesy Manuel NP Amb Consult/Follow Up Cardiology Please schedule in [facility] cardiology clinic with Dr Alex Soto or next available machine assembler at that clinic. Office in [place] [phone]; cardiology clinic in [facility] [phone] Reason for Request: post NSTEMI post PCI, [...] up with cardiology in 4-6 weeks at [facility] Please continue your cardiac medications, especially [...] weeks. * Tali Jacobs MD - 03/31/2014 5696 EDT Cardiology Post Procedure Note Date of [...] case management office. Quyen Barrett RN, CM pager#[phone] * Yesy Manuel NP - 03/31/2014 1308 EDT Ticagrelor twice daily without interruption x 1 year reviewed with patient and she verbalizes understanding. Cardiac rehab reviewed with patient and the patient is willing to attend at [facility]. Referral sent and written material given to patient.Follow up has been requested with Dr Alex Soto in cardiology clinic, [facility]. kitchen manager contacted for Brilanta coverage. 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 Social Supports: Mother lives locally, friends available Existing Community Resources: No HH in past or currently, does not foresee needs upon discharge. PCP Pretty Avery MD Advanced Directives/DPOA: AD pamphlet given to patient Cultural/Spiritual Needs: Denied visit Insurance/Financial Needs: Medicaid coverage, pharmacy is [facility] in [facility] Transportation Needs: May need assistance with transportation, trying to set up a ride from family for d/c. Patient's car is in [place] currently. Patient Goals: No other needs at [...] with rest. She was taken to [facility] and treated with nitro [...] clinical course Shahid Rayo MD Pager # [phone] 03/30/2014 21:10 Attestation statement::I have seen and [...] artery Procedure: She was brought to the [facility] Cardiac Catheterization Laboratory forthe procedure: Diagnostic coronary/graft [...] of Care - Robin Johnson - 03/31/2014 3217 EDT Problem: CIRCULATORY STATUS Goal: Patient Has [...] Care - Cuauhtemoc Berg RN - 03/31/2014 3821 EDT Problem: CIRCULATORY STATUS Goal: Patient Has Stable Vital Signs And Fluid Balance Outcome: Ongoing D: Patient arrived to [place] [address]. Vital signs noted, and tele applied. Patient [...] Referral Routine NSTEMI (non-ST elevated myocardial infarction) ([facility]) S/P coronary artery stent placement Ordered: 03/31/2014 AMB CONS/FOLLOW UP CARDIOLOGY Outpatient Referral Routine NSTEMI (non-ST elevated myocardial infarction) ([facility]) S/P coronary artery stent placement Ordered: 03/31/2014 [...] 9:34 EST) 09/26/2015 9:34 EST Scan 2 Insurance Claim Representative PROCEDURE/MINOR SHAYY GICAL ORDERABLES * ECG REPORT - SCANNED (04/06/2014 13:00 EDT) 04/06/2014 13:0 0 EDT Scan 2 Insurance Claim Representative PROCEDURE/MINOR SHAYY GICAL ORDERABLES * ECG REPORT - SCANNED (04/06/2014 13:00 EDT) 04/06/2014 13:0 0 EDT Scan 2 Insurance Claim Representative PROCEDURE/MINOR SHAYY GICAL ORDERABLES * INVASIVE CARDIOLOGY REPORT-SCANNED (04/06/2014 13:00 EDT) 04/06/2014 13:0 0 EDT Scan 2 Insurance Claim Representative PROCEDURE/MINOR SHAYY GICAL ORDERABLES * ECG REPORT - SCANNED (04/05/2014 7:12 EDT) 04/05/2014 7:12 EDT Scan 2 Insurance Claim Representative PROCEDURE/MINOR SHAYY GICAL ORDERABLES * ECG REPORT - SCANNED (04/04/2014 11:58 EDT) 04/04/2014 11:5 8 EDT Scan 2 Insurance Claim Representative PROCEDURE/MINOR SHAYY GICAL ORDERABLES * ECG REPORT - SCANNED (04/04/2014 11:56 EDT) 04/04/2014 11:5 6 EDT Scan 2 Insurance Claim Representative PROCEDURE/MINOR SHAYY GICAL ORDERABLES * (ABNORMAL) DIFFERENTIAL [...] PF4 ORD ERABLES [facility] [address] [place] [address] * HEMAGRAM (04/01/2014 5:50 EDT) WBC 11.20 [...] & PF4 ORD ERABLES Performing Organization Address [facility] de Phone Number [facility] [address] [place] [address] * PTT (04/01/2014 5:50 EDT) PTT 27 26 - 37 secs [facility] Comment:Therapeutic Heparin range: 65-100 seconds Blood specimen (specimen) 04/01/2014 5:50 EDT 04/01/2014 6:36 EDT Shahid Rayo MD HEMATOLOGY & PF4 ORD ERABLES Performing Organization Address [facility] Phone Number [facility] [address] [place] [address] * CREATININE (04/01/2014 5:50 EDT) Creatinine 0.69 0.52 - 1.04 mg/dl [facility] GFR, Calculated >60 >60 ml/min/1.7 3m2 [facility] Blood specimen (specimen) 04/01/2014 5:50 EDT 04/01/2014 6:36 EDT Shahid Rayo MD CHEMISTRY & BLOOD GA S ORDERABLES Performing Organization Address [facility] de Phone Number [facility] [address] [place] [address] * BUN (04/01/2014 5:50 EDT) BUN 10 10 - 26 mg/dl [facility] Blood specimen (specimen) 04/01/2014 5:50 EDT 04/01/2014 6:36 EDT Shahid Rayo MD CHEMISTRY & BLOOD GA S ORDERABLES Performing Organization Address [facility] Co de Phone Number [facility] [address] [place] [address] * ELECTROLYTES (04/01/2014 5:50 EDT) Sodium 138 136 - 145 mEq/L [facility] Potassium 4.2 3.5 - 5.0 mEq/L [facility] Chloride 107 96 - 110 mEq/L [facility] CO2 24 24 - 32 mEq/L [facility] Blood specimen (specimen) 04/01/2014 5:50 EDT 04/01/2014 6:36 EDT Shahid Rayo MD CHEMISTRY & BLOOD GA S ORDERABLES Performing Organization Address [facility] Co de Phone Number [facility] [address] [place] [address] * CK MB WITH TOTAL CK (04/01/2014 5:50 EDT) CK 35 30 - 135 U/L [facility] MB 1.58 <2.95 ng/ml [facility] Blood specimen (specimen) 04/01/2014 5:50 EDT 04/01/2014 6:36 EDT Yesy Manuel NP CHEMISTRY & BLOOD GA S ORDERABLES Performing Organization Address [facility] Co de Phone Number [facility] [address] [place] [address] * CK MB WITH TOTAL CK (03/31/2014 22:14 EDT) CK 42 30 - 135 U/L [facility] MB 1.72 <2.95 ng/ml [facility] Blood specimen (specimen) 03/31/2014 22:14 EDT 03/31/2014 22:19 EDT Shahid Rayo MD CHEMISTRY & BLOOD GA S ORDERABLES Performing Organization Address City/[facility]/ZIP Co de Phone Number [facility] [address] [place] [address] * (ABNORMAL) TROPONIN I (03/31/2014 14:32 EDT) Troponin I (ng/mL) 0.136(H) <0.034 ng/ml [facility] Blood specimen (specimen) 03/31/2014 14:32 EDT 03/31/2014 15:09 EDT Shahid Rayo MD CHEMISTRY & BLOOD MS S ORDERABLES Performing Organization Address [facility] de Phone Number [facility] [address] [place] [address] * CK MB WITH TOTAL CK (03/31/2014 14:32 EDT) CK 62 30 - 135 U/L [facility] MB 2.04 <2.95 ng/ml [facility] Blood specimen (specimen) 03/31/2014 14:32 EDT 03/31/2014 15:09 EDT Shahid Rayo MD CHEMISTRY & BLOOD GA S ORDERABLES Performing Organization Address [facility] de Phone Number [facility] [address] [place] [address] * EKG 12-LEAD (03/31/2014 13:30 EDT) 03/31/2014 13:3 0 EDT Narrative [facility] EKG - 04/04/2014 7:56 EDT ?[facility] ? Test Date: ?2014-03-31 Pat Name: ? ISA RO ?Department: ?? [facility] ? Room: ? MW511 Gender: ? F ?Boom Crane Operator: ?? [id number] : ?1965 ? Requested By: YESY MANUEL TIMBER FRAMER HELPER Order Number: [id number] ? Reading MD: ?? BRYAN PURDY MD ? Measurements Intervals ?[place] ? Rate: ? 50 ? P: ?57 TX: ? 154 ?QRS: ?29 QRSD: ? 90 [...] Date: 2014-03-31 Pat Name: ISA RO Department: [place] [address] Room: [facility] Gender: F Boom Crane Operator: [id number] : 1965 Requested By: YESY MANUEL NP Order Number: [id number] Reading MD: BRYAN PURDY MD Measurements Intervals [place] Rate: 50 P: 57 TX: 154 QRS: 29 QRSD: 90 T: 38 [...] 5 EDT Narrative 03/31/2014 13:08 EDT Cardiology [address] [place] [address] Catheterization Laboratory Study Patient: Isa Ro ? Study Date: ?03/31/2014 ? Accession #: ? [id number] : ? 1965 Referring Physician: Dilip Mahajan [...] successfully achieved. SUMMARY: 1. HPI and indications: Vtb-OY-nggoktts myocardial infarction. 2. LAD: Proximal vessel lesion: [...] 4. Continue aspirin, at 81mgPOdaily, indefinitely. HISTORY: Flh-YX-mpvnehrv myocardial infarction. ??Functional status: ?? CCS class [...] radial artery access. A 5Fr/10 cm Terumo [place] Sheath Radial sheath was ?? advanced into [...] MD 2014-03-31 13:08 Procedure Note 03/31/[address] [place] [address] Catheterization Laboratory Study Patient: Isa Ro Study Date:03/31/2014 : 1965 Referring Physician: Dilip Mahajan Jr., MD Referring Physician: Pretty Avery Diagnostic Attending: Dilip Mahajan Interventional Attending: Dilip Mahajan Diagnostic Fellow: Chun Nielsen Interventional Fellow: Yesy Manuel ATTESTATION: Dr. Dilip Mahajan was present and supervising for the entire procedure, I,Dr. Diilp Mahajan have reviewed and agree with the [...] successfully achieved. SUMMARY: 1. HPI and indications: Wfb-YI-ovjincue myocardial infarction. 2. LAD: Proximal vessel lesion: [...] Add tricagrelor (Brilinta), loading dose 180mgPO, standing [id number], for 12mon. 4. Continue aspirin, at 81mgPOdaily, indefinitely. HISTORY: Zdf-BE-mulmvkgc myocardial infarction. Functional status: CCS class IV [...] radial artery access. A 5Fr/10 cm Terumo [place] Sheath Radialsheath was advanced into the vessel. [...] 2. Vessel setup was performed. A 180 [employer] wire was used to crossthe lesion. 3. [...] EDT *Interpreting Group:* *[facility]* [address] [place] [address] *STUDY CONCLUSIONS* Summary: ?? Left ventricle: The [...] ATTENDING ?Waqas Yao MD REFERRING ?Pretty Avery* AUTOMOBILE CLUB INFORMATION CLERK ??Tracey Black PERFORMING ?? [facility], FELLOW ? Abiodun Velez ORDERING ? Joel Parker REFERRING ?Joel Parker j *PROCEDURE DATA* Procedure information: ??This study was interpreted by [facility] at [facility]. ??Study status: ??Routine. Transthoracic echocardiography. ??M-mode, complete 2D, complete spectral Doppler, and color Doppler. A Transthoracic Echocardiogram was performed. Scanning was performed from the parasternal, apical, subcostal, and suprasternal notch acoustic windows. Images were obtained using a Shubham IE33 3 cardiac ultrasound machine. Image quality was adequate. ??Study completion: ??The patient tolerated the procedure well. *INDICATIONS AND HISTORY* Indications: ?? ID - nontransmural - acute 410.71. *CARDIAC ANATOMY* [...] 03/31/2014 11:13 Procedure Note 03/31/2014 *Interpreting Group:* *[facility]* [address] [place] [address] *STUDY CONCLUSIONS* Summary: Left ventricle: The cavity [...] ATTENDING Waqas Yao MD REFERRING Pretty Avery* AUTOMOBILE CLUB INFORMATION CLERK Tracey Black PERFORMING Fa, FELLOW Abiodun Velez ORDERING Joel Parker REFERRING Joel Parker j *PROCEDURE DATA* Procedure information: This study was interpreted by [facility] at [facility]. Study status: Routine.Transthoracic echocardiography. M-mode, complete 2D, complete spectral Doppler, andcolor Doppler. A Transthoracic Echocardiogram was performed. Scanning wasperformed from the parasternal, apical, subcostal, and suprasternal notch acoustic windows. Images were obtained using a Shubham IE33 3 cardiac ultrasoundmachine. Image quality was adequate. Study completion: The patient tolerated the procedure well. *INDICATIONS AND HISTORY* Indications: ID - nontransmural - acute 410.71. *CARDIAC ANATOMY* [...] ? Room: ? MW511 Gender: ? F ?Boom Crane Operator: ?? [id number] : ?1965 ? Requested By: WAQAS YAO MD Order Number: [id number] ? Reading MD: ?? LYDIA DALTON MD ? Measurements Intervals ?[place] ? Rate: ? 59 ? P: ?58 TX: ? 154 ?QRS: ?41 QRSD: ? 88 [...] Date: 2014-03-31 Pat Name: ISA SHEPHERDISAI Department: [place] [address] Room: MW511 Gender: F Boom Crane Operator: [id number] : 1965 Requested By: WAQAS YAO MD Order Number: [id number] Reading MD: LYDIA DALTON MD Measurements Intervals [place] Rate: 59 P: 58 TX: 154 QRS: 41 QRSD: 88 T: 43 [...] & PF4 ORD ERABLES Performing Organization Address City/[facility]/ZIP Co de Phone Number [facility] [address] [place] [address] * HEMAGRAM (03/31/2014 6:43 EDT) Pathologist [facility] [...] & PF4 ORD ERABLES Performing Organization Address City/[facility] Co de Phone Number [facility] [address] [place] [address] * (ABNORMAL) PTT (03/31/2014 6:43 EDT) Pathologist [facility] PTT 51(H) 26 - 37 secs [facility] Comment:Therapeutic Heparin range: 65-100 seconds Blood specimen (specimen) 03/31/2014 6:43 EDT 03/31/2014 7:01 EDT Shahid Rayo MD HEMATOLOGY & PF4 ORD ERABLES Performing Organization Address [facility] de Phone Number [facility] [address] [place] [address] * CREATININE (03/31/2014 6:43 EDT) Pathologist [facility] Creatinine 0.70 0.52 - 1.04 mg/dl [facility] GFR, Calculated >60 >60 ml/min/1.7 3m2 [facility] Blood specimen (specimen) 03/31/2014 6:43 EDT 03/31/2014 7:01 EDT Shahid Rayo MD CHEMISTRY & BLOOD GA S ORDERABLES Performing Organization Address [facility] de Phone Number [facility] [address] [place] [address] * BUN (03/31/2014 6:43 EDT) BUN 15 10 - 26 mg/dl [facility] Blood specimen (specimen) 03/31/2014 6:43 EDT 03/31/2014 7:01 EDT Shahid Rayo MD CHEMISTRY & BLOOD GA S ORDERABLES Performing Organization Address [facility] Phone Number [facility] [address] [place] [address] * ELECTROLYTES (03/31/2014 6:43 EDT) Sodium 139 136 - 145 mEq/L [facility] Potassium 4.2 3.5 - 5.0 mEq/L [facility] Chloride 107 96 - 110 mEq/L [facility] CO2 24 24 - 32 mEq/L [facility] Blood specimen (specimen) 03/31/2014 6:43 EDT 03/31/2014 7:01 EDT Shahid Rayo MD CHEMISTRY & BLOOD GA S ORDERABLES Performing Organization Address [facility] Phone Number [facility] [address] [place] [address] * LIPID PROFILE (INCLUDES CHOLESTEROL, TRIGLYCERIDES, HDL, LDL) (03/31/2014 6:43 EDT) Cholesterol 152 mg/dl [facility] Comment: Desirable:<200 Borderline High:200-239 High:>jp=101 Triglycerides 100 mg/dl [facility] Comment: Normal:<150 Borderline High:150-199 High:200-499 Very High:>kc=035 HDL 50 mg/dl [facility] Comment: Low:<40 Normal:40-60 Desirable: >60 LDL, Calculated 82 mg/dl [facility] Comment: Optimal:<100 Near Optimal:100-129 Borderline High:130-159 High:160-189 Very High:>yg=124 Chol/HDL Ratio 3.0 [facility] Fasting? Unknown [facility] Non HDL Cholesterol 102 mg/dl [facility] Comment: Desirable:<130 Borderline:130-159 High: 160-189 Very High: >rs=689 Blood specimen (specimen) 03/31/2014 6:43 EDT 03/31/2014 7:01 EDT Shahid Rayo MD CHEMISTRY & BLOOD GA S ORDERABLES Performing Organization Address [facility] Co de Phone Number [facility] [address] [place] [address] * (ABNORMAL) TROPONIN I (03/31/2014 6:43 EDT) Troponin I (ng/mL) 0.180(H) <0.034 ng/ml [facility] Blood specimen (specimen) 03/31/2014 6:43 EDT 03/31/2014 7:01 EDT Shahid Rayo MD CHEMISTRY & BLOOD GA S ORDERABLES Performing Organization Address [facility] Co de Phone Number [facility] [address] [place] [address] * CK MB WITH TOTAL CK (03/31/2014 6:43 EDT) CK 55 30 - 135 U/L [facility] MB 2.51 <2.95 ng/ml [facility] Blood specimen (specimen) 03/31/2014 6:43 EDT 03/31/2014 7:01 EDT Shahid Rayo MD CHEMISTRY & BLOOD GA S ORDERABLES Performing Organization Address [facility] Co de Phone Number [facility] [address] [place] [address] * HEMOGLOBIN A1C (03/31/2014 6:43 EDT) Hemoglobin [...] BLOOD GA S ORDERABLES Performing Organization Address [facility] Co de Phone Number [facility] [address] [place] [address] * HEMAGRAM (03/30/2014 22:23 EDT) WBC 9.80 [...] HEMATOLOGY & PF4 ORDERABLES Performing Organization Address [facility] de Phone Number [facility] [address] [place] [address] * INPATIENT ADD-ON (03/30/2014 22:00 EDT) Pathologist [facility] Tests to be added HEMAGRAM [facility] Number for problems MW5 [facility] Accession number [id number] [facility] 03/30/2014 22:0 0 EDT 03/30/2014 22:10 EDT Shahid Rayo MD HEMATOLOGY & PF4 ORD ERABLES Performing Organization Address [facility] Co de Phone Number [facility] [address] [place] [address] * CK MB WITH TOTAL CK (03/30/2014 21:01 EDT) [facility] CK 59 30 - 135 U/L [facility] MB 2.26 <2.95 ng/ml [facility] Blood specimen (specimen) 03/30/2014 21:01 EDT 03/30/2014 21:10 EDT Shahid Rayo MD CHEMISTRY & BLOOD GA S ORDERABLES Performing Organization Address [facility] Co de Phone Number [facility] [address] [place] [address] * (ABNORMAL) TROPONIN I (03/30/2014 21:01 EDT) [facility] Troponin I (ng/mL) 0.179(H) <0.034 ng/ml [facility] Blood specimen (specimen) 03/30/2014 21:01 EDT 03/30/2014 21:10 EDT Shahid Rayo MD CHEMISTRY & BLOOD GA S ORDERABLES Performing Organization Address [facility] de Phone Number [facility] [address] [place] [address] * CREATININE (03/30/2014 21:01 EDT) [facility] Creatinine 0.74 0.52 - 1.04 mg/dl [facility] GFR, Calculated >60 >60 ml/min/1.7 3m2 [facility] Blood specimen (specimen) 03/30/2014 21:01 EDT 03/30/2014 21:10 EDT Shahid Rayo MD CHEMISTRY & BLOOD GA S ORDERABLES Performing Organization Address [facility] Phone Number [facility] [address] [place] [address] * BUN (03/30/2014 21:01 EDT) BUN 13 10 - 26 mg/dl [facility] Blood specimen (specimen) 03/30/2014 21:01 EDT 03/30/2014 21:10 EDT Shahid Rayo MD CHEMISTRY & BLOOD GA S ORDERABLES Performing Organization Address [facility] de Phone Number [facility] [address] [place] [address] * ELECTROLYTES (03/30/2014 21:01 EDT) Sodium 139 136 - 145 mEq/L [facility] Potassium 3.7 3.5 - 5.0 mEq/L [facility] Chloride 105 96 - 110 mEq/L [facility] CO2 24 24 - 32 mEq/L [facility] Blood specimen (specimen) 03/30/2014 21:01 EDT 03/30/2014 21:10 EDT Shahid Rayo MD CHEMISTRY & BLOOD GA S ORDERABLES Performing Organization Address [facility] de Phone Number [facility] [address] [place] [address] * PROTIME (03/30/2014 21:01 EDT) Pro Time [...] PF4 ORD ERABLES [facility] [address] [place] [address] * (ABNORMAL) PTT (03/30/2014 21:01 EDT) PTT 130(HH) 26 - 37 secs [facility] Comment:Therapeutic Heparin range: 65-100 seconds Blood specimen (specimen) 03/30/2014 21:01 EDT 03/30/2014 21:10 EDT Shahid Rayo MD HEMATOLOGY & PF4 ORD ERABLES Performing Organization Address City/[facility] Co de Phone Number [facility] [address] [place] [address] documented in this encounter Visit Diagnoses Diagnosis NSTEMI (non-ST elevated myocardial infarction) ([facility] Primary Acute myocardial infarction, subendocardial infarction, episode of care unspecified NSTEMI (non-ST elevated myocardial infarction) ([facility]) Acute myocardial infarction, subendocardial infarction, episode [...] 03/14 documented in this encounter Care Teams Assistant Superintendent Relationship Specialty Start Date End Date Pretty Avery MD [address] [place] [address] PCP - General 06/05/10 documented as of this encounter
--- OUTSIDE RECORDS SUMMARY | 2024-04-20 13:10 | XMS_ITS | Encounter Summary ---
[facility] Organization [facility] Address [facility] [place] [address] Care Team Providers Care Net Application Support Specialist Name Role Phone None Primary Care Provider Unavailabl e Encounter Details Date Type Department Care Team (Late st Contact Info) Description 03/27/2024 Telephone Cardiology at [address] [place] [phone] Collins Yanes PA [facility] [address] Social History Tobacco Use Types Packs/Day Years Used Date Smoking Tobacco: Former Smokeless Tobacco: Never Alcohol Use Standard Drinks/Week Comments Yes 14 (1 standard drink = 0.6 oz pu re alcohol) [facility] Utilities Answer Date Recorded In the [...] any time in the past 12 m [facility], were you homeless or living in a jail (including now)? No 03/21/2024 IPV Inpatient Questions [...] 03/27/2024 10:39 AM EDT Received page from baler operator. Isa called in from home this [...] AM EDT Office Visit Cardiology at [address] [phone] Herlinda Weaver PA [facility] [address] documented as of this encounter Visit Diagnoses Not on filedocumented in this encounter Care Teams Net Application Support Specialist Relationship Specialty Start Date End Date None None PCP - General 03/19/24 documented as of this encounter
--- OUTSIDE RECORDS SUMMARY | 2024-04-20 13:10 | XMS_ITS | Encounter Summary ---
Author Organization [facility] Address [address] [place] [address] Care Team Providers Care Belt Loop Maker Name Role Phone Unavailable Primary Care Provider Unavailabl e Encounter Details Date Type Department Care Team (Late st Contact Info) Description 04/29/2010 Results Only [address] [address] Pretty Avery MD [address] [place] [phone] Social History Tobacco Use Types Packs/Day Years [...] ? EZEQUIEL THOMAS ? Accession #: ? [id number] ? : ? 1965 (Age: 45) ??F [...] Avery MD PATHOLOGY ORDERABLES [facility] [address] [place] [address] documented in this encounter Visit Diagnoses Not on filedocumented in this encounter
--- OUTSIDE RECORDS SUMMARY | 2024-04-20 13:10 | XMS_ITS | Encounter Summary ---
Author Organization [facility] Address [address] [place] [address] Care Team Providers Care Caustic Mixer Name Role Phone Pretty Avery MD Primary Care Provider [phone] Encounter Details Date Type Department Care Team (Late st Contact Info) Description 12/02/2005 Results Only [facility] [address] [place] [address] Jake Sabillon FNP [address] [place], [place] [address] Social History Tobacco Use Types Packs/Day Years [...] ? ANNEEZEQUIEL GREEN ? Accession #: ? [id number] : ? 1965 (Age: 40) ??F ?Collect Date: ? 12/02/2005 Location: ? [facility] ? Receive Date: ? 12/04/2005 Provider: ?JAKE SABILLON DIGITAL PRODUCT SPECIALIST Copy to: ? Specimen/Source: ?ThinPrep Pap Test, Cervix/Endocervix, processed on [employer] ThinPrep Imaging System, with manual evaluation Last [...] GARCÍAP PATHOLOGY ORDERABLES [facility] [address] [place] [address] documented in this encounter Visit Diagnoses Not on filedocumented in this encounter Care Teams Caustic Mixer Relationship Specialty Start Date End Date Pretty Avery MD [address] [place] [address] PCP - General 06/05/10 documented as of this encounter
--- OUTSIDE RECORDS SUMMARY | 2024-04-20 13:10 | XMS_ITS | Encounter Summary ---
Author Organization [facility] Address [address] [place] [address] Care Team Providers Care Planer Feeder Name Role Phone Unavailable Primary Care Provider Unavailabl e Encounter Details Date Type Department Care Team (Late st Contact Info) Description 12/14/2006 Results Only [facility] - [facility] conversion [address] [place] [address] Jake Sabillon FNP [address] [place], [place] [address] Social History Tobacco Use Types Packs/Day Years [...] ? EZEQUIEL THOMAS ? Accession #: ? [id number] : ? 1965 (Age: 41) ??F ?Collect Date: ? 12/14/2006 Location: ? [facility] ? Receive Date: ? 12/16/2006 Provider: ?JAKE SABILLON PIN CLEANER Copy to: ? Specimen/Source: ?ThinPrep Pap Test, Cervix/Endocervix, processed on [employer] ThinPrep Imaging System, with manual evaluation Last [...] Jake GARCÍAP PATHOLOGY ORDERABLES [facility] [address] [place] [address] documented in this encounter Visit Diagnoses Not on filedocumented in this encounter
--- OUTSIDE RECORDS SUMMARY | 2024-04-20 13:10 | XMS_ITS | Encounter Summary ---
Author Organization [facility] Address [address] [place] [address] Care Team Providers Care Film Reader Name Role Phone Unavailable Primary Care Provider Unavailabl e Encounter Details Date Type Department Care Team (Late st Contact Info) Description 12/31/2007 Results Only [facility] - [address] [phone] Skip Alcocer MD [address] [place] [address], [address] [place] [address] Social History Tobacco Use Types [...] Results * AMNIOTIC FLUID/[facility] ANEUPLOIDY FISH (FOR X,Y,21,13,18)([facility] #[id number]) (12/31/2007 16:34 EDT) Specimen (Note) Chorionic Villi Sample ? [facility] Specimen ID [id number] [facility] Order Date 01 Jan 2008 09:10 [facility] Method (Note) FISH analysis of 100 nuclei with probes for Xcen (DXZ1), ? Ycen (DYZ3), 13q14 (Rb1), 18cen (D18Z1) and 21q22 ([id number]). ? [facility] Reason For Referral [...] ? FISH results. ? The [employer] and the [employer] ? [employer] recommend confirmation of ? abnormal diagnostic results at or ? termination, to the extent possible. ? DISCLAIMER: ??This test was developed and its performance ? characteristics determined by Laboratory Medicine and ? Pathology, [facility]. ??It has not been cleared ? or approved by the U.S. Food and Drug Administration. ??This ? FISH assay does not rule out other chromosome anomalies. ? Woody et al., [place] Clin Proc 73:132-137, 1998. ? [facility] Ophthalmology Surgical Technician (Note) Eduardo Corey MD ? [facility] Report Date 03 Jan 2008 12:44 Performed or Referred by: [facility] Dpt of Lab Med and Path, [address] ?? , [place] [address], Lab Dir: MD U[facility]ASHI Morgan III 12/31/2007 16:3 4 EDT 12/31/2007 16:34 EDT Skip Alcocer MD GEN LAB UNIT [facility] ECT ORDERABLES [facility] [address] [place] [address] * [facility] CHROMOSOME ANALYSIS ([facility] #[id number]) (12/31/2007 16:34 EDT) Specimen (Note) Chorionic Villi Sample ? [facility] Specimen ID [id number] [facility] Order Date 01 Jan 2008 09:10 [facility] Method CV[facility] culture [facility] Reason For Referral maternal age [facility] Results 46,XY [facility] Interpretation (Note) No chromosome abnormality was observed in 30 metaphases ? analyzed from 3 primary cultures. ? This result is consistent with the normal FISH studies, ? reported separately. ? [facility] Ophthalmology Surgical Technician (Note) Manuel V N Velagakarlyi PhD ? [facility] Report Date 10 Jan 2008 16:27 Performed or Referred by: [facility] Dpt of Lab Med and Path, [address] , [place] [address], Lab Dir: MD URVASHI Morgan III Haploid Band Resolution 400Unit: bands [facility] Total Cells Analyzed 30 [facility] Total Cells Karyotyped 2 [facility] 12/31/2007 16:3 4 EDT 12/31/2007 16:34 EDT Skip Alcocer MD HEMATOLOGY & PF4 ORDERABLES [facility] [address] [place] [address] documented in this encounter Visit Diagnoses Not on filedocumented in this encounter
--- OUTSIDE RECORDS SUMMARY | 2024-04-20 13:10 | XMS_ITS | Clinical Summary ---
Author Organization [facility] Address [facility] [place] [address] Care Team Providers Care Business Office Director Name Role Phone None Primary Care Provider [...] Care Team Description 03/27/2024 Telephone Cardiology at [address] [phone] Fidel Yanes PA 03/19/2024 8:10 AM EDT - 03/19/2024 11:59 PM EDT Hospital Encounter Non-Invasive Cardiology Lab [place] [phone] Discharge Disposition: Home 03/19/2024 1:05 AM EDT - 03/19/2024 2:06 AM EDT [place] [phone] Ramo Roy MD CARDIAC CATHETERIZATION 03/19/2024 12:37 AM EDT - 03/22/2024 12:10 PM EDT Hospital Encounter Heart and Vascular Unit Level 4 [place] A at [place] [phone] Min, MD Santi Vigil Xavier L, MD Ramachandra, Nayana, MD ST elevation myocardial infarction involving left anterior descending (LAD) coronary artery; Chest pain, unspecified type Discharge Disposition: Home 03/18/2024 11:37 PM EDT - 03/18/2024 11:59 PM EDT Hospital [place] [phone] Min, Destin Grajeda MD Discharge Disposition: Home 03/18/2024 Telephone Cardiology at [address] [phone] Yusuf Herrera MD 03/18/2024 External [place] [phone] from Last 3 Months Social History Tobacco Use Types Packs/Day Years Used Date Smoking Tobacco: Former Smokeless Tobacco: Never Alcohol Use Standard Drinks/Week Comments Yes 14 (1 standard drink = 0.6 oz pu re alcohol) [facility] Utilities Answer Date Recorded In the past 12 months has [employer], oil, or water [employer] threatened to shut off services in your [...] any time in the past 12 [facility], were you homeless or living in a mcfp (including now)? No 03/21/2024 DH IPV Inpatient [...] 10:40 AM EDT Office Visit Cardiology at [address] [place] [phone] Herlinda Weaver PA [facility] [place] [address] Health Maintenance Due Date Last Done Comments [...] Cell 11.6(H) 4.0 - 9.5 x10(3)/ L [facility] Red Blood Cell 4.80 4.00 - 5.21 x10(6)/mc L [facility] Hemoglobin 13.5 11.7 - 15.5 g/dL [facility] Hematocrit 40.3 35.7 - 45.8 % [facility] Mean Cell Volume 84.0 82.6 - 94.4 fL [facility] Mean Cell Hemoglobin 28.1 27.1 - 32.0 pg [facility] Mean Cell Hemoglobin Concentration 33.5 31.7 - 35.0 g/dL [facility] Platelet 232 145 - 357 x10(3)/[facility] RDW Standard Deviation 42.2 37.0 - 46.0 fL [facility] RDW coefficient of variation 13.5 11.5 - 14.1 % [facility] Mean Platelet Volume 9.7 7.6 - 12.9 fL [facility] NRBC% auto 0.0 % [facility] NRBC Absolute 0.000 0.000 - 0.000 x10(3)/[facility] Blood 03/22/2024 5:06 AM EDT 03/22/2024 5:12 AM EDT Narrative Resulting Agency Comment Spec In Lab Horace Hancock MD HEMATOLOGY ORDERABLE S [facility] [place] [address] * (ABNORMAL) Differential, Automated (03/22/2024 5:06 AM EDT) Only the most recent of5 resultswithin the time period is included. Neutrophil % 71.6 % [facility] Neutrophil Absolute 8.34(H) 1.70 - 6.10 x10(3)/[facility] Lymph % 17.4 % [facility] Lymphocytes Abs 2.0 0.9 - 3.2 x10(3)/[facility] Monocyte % 8.2 % [facility] Monocyte Abs 1.0(H) 0.3 - 0.9 x10(3)/[facility] Eos % 2.2 % [facility] Eosinophils Abs 0.3 0.0 - 0.4 x10(3)/[facility] Basophil % 0.3 % [facility] Baso Absolute 0.0 0.0 - 0.1 x10(3)/[facility] Immature Gran % 0.30 % [facility] Comment: Immature granulocytes(IG's)percentage and absolute count will include metamyelocytes, myelocytes, and promyelocytes. Blood smears from CBCs yielding IG's will be scanned manually for concordance. If this scan disagrees with the automated IG or if promyelocytes are noted, a manual differential will be performed. Immature Gran Absolute 0.03 0.00 - 0.04 x10(3)/[facility] Blood 03/22/2024 5:06 AM EDT 03/22/2024 5:12 AM EDT Narrative Resulting Agency Comment Spec In Lab Horace Hancock MD HEMATOLOGY ORDERABLE S [facility] [place] [address] * Magnesium (03/22/2024 5:06 AM EDT) Only the most recent of5 resultswithin the time period is included. Magnesium 0.90 0.69 - 1.07 mmol/L [facility] Blood 03/22/2024 5:06 AM EDT 03/22/2024 5:12 AM EDT Narrative Resulting Agency Comment Spec In Lab Destin Ambrosio MD CHEMISTRY ORDERABLES [facility] [place] [address] * Basic Metabolic Panel (non-fasting) (03/22/2024 5:06 AM EDT) Only the most recent of4 resultswithin the time period is included. Glucose 107 65 - 199 mg/dL [facility] Comment:Diabetes: >=200 mg/d L plus symptoms Blood Urea Nitrogen 18 8 - 18 mg/dL [facility] Creatinine 0.87 0.70 - 1.20 mg/dL [facility] Sodium 138 135 - 145 mmol/L [facility] Potassium 4.1 3.5 - 5.0 mmol/L [facility] Comment: Please note: ??Patients with WBC >100,000 may have falsely elevated Potassium levels. ??For accurate Potassium quantification in these patients send serum separator tube (gold top) for subsequent determinations. ??Contact the Clinical Chemistry Laboratory if there are any questions. Chloride 104 98 - 107 mmol/L [facility] Carbon Dioxide 24 22 - 31 mmol/L [facility] Anion Gap 10 5 - 15 mmol/L [facility] Calcium 9.2 8.5 - 10.5 mg/dL [facility] Est Glomerular Filtration Rate 76 >=60 mL/min/1. 73 m?? [facility] Comment: This patient's estimated GFR [...] MD CHEMISTRY ORDERABLES Performing Organization Address [facility] Co de Phone Number [facility] [place] [address] * Metanephrines, Fractionated Free, plasma (03/21/2024 2:57 AM EDT) Normetanephrine, Free (JANUARY) 0.47 <0.90 nmol/L [facility] Comment: Test Performed by: [facility] [place] [address] Medical Receptionist: Chasity Hernandez Ph.D.; CLIA# [id number] Metanephrine, Free (JANUARY) <0.20 <0.50 nmol/L [facility] Comment: ADDITIONAL INFORMATION This test was developed and its performance characteristics determined by [facility] in a manner consistent with CLIA requirements. This test has not been cleared or approved by the U.S. Food and Drug Administration. Test Performed by: [facility] [place] [place] [address] Medical Receptionist: Chasity Hernandez Ph.D.; CLIA# [id number] Blood 03/21/2024 2:57 AM EDT 03/21/2024 11:29 AM EDT Narrative Resulting Agency Comment Spec In Lab Horace Hancock MD LAB SEND OUT ORDERAB LES Performing Organization Address [facility]/ZIP Co de Phone Number [facility] [place] [address] * Iron and TIBC (03/20/2024 10:38 AM EDT) Iron 57 30 - 150 mcg/dL [facility] TIBC 278 250 - 450 mcg/dL [facility] Iron Saturation 21 20 - 50 % [facility] Blood Venous Draw / Unknown 03/20/2024 10:38 AM EDT 03/20/2024 10:52 AM EDT Narrative Resulting Agency Comment Spec In Lab Horace Hancock MD CHEMISTRY ORDERABLES [facility] [place] [address] * (ABNORMAL) Troponin (03/19/2024 11:01 PM EDT) Only the most recent of5 resultswithin the time period is included. Troponin-T, High Sensitivity 2,406(H) <=14 ng/L [facility] Comment: [...] in the [facility] Test Catalog Troponin - [facility] Test Catalog Reference: Fourth [place] Definition of Myocardial Infarction. Journal of the [place] College of Cardiology 2018;72:2322-4743 Blood 03/19/2024 11:0 1 PM EDT 03/19/2024 11:05 PM EDT Narrative Resulting Agency Comment Spec In Lab Franky Mead MD CHEMISTRY ORDERABLE S [facility] [place] [address] * EKG 12 Lead (03/19/2024 8:32 PM EDT) Only the most recent of3 resultswithin the time period is included. Ventricular rate 70 BPM MUSE SYSTEM Atrial Rate 70 BPM MUSE SYSTEM P-R Interval 158 ms MUSE SYSTEM QRS Duration 78 ms MUSE SYSTEM Q-T Interval 470 ms MUSE SYSTEM QTC Calculated (Bezet) 507 ms MUSE SYSTEM Calculated P [place] 62 degrees MUSE SYSTEM Calculated R [place] 42 degrees MUSE SYSTEM Calculated T [place] -158 degrees MUSE SYSTEM INTERPRETATION Normal sinus rhythm Poor R wave progression T wave abnormality, consider lateral ischemia Prolonged QT Abnormal ECG When compared with ECG of 19-MAR-2024 17:27, No significant change was found Confirmed by MD Hebert, Destin ([id number]) on 03/23/2024 8:10:58 AM MUSE SYSTEM 03/19/2024 8:32 PM EDT 03/23/2024 8:10 AM EDT Franky Mead MD ECG ORDERABLES Performing Organization Address [facility] Co de Phone Number MUSE SYSTEM * ECHO COMPLETE W CONTRAST (03/19/2024 10:53 AM EDT) Anatomical Region Laterality Modality Cardiac Other 03/19/2024 9:03 AM EDT Narrative 03/19/2024 12:12 PM EDT 1 [place] [address] ? Echocardiogram Report Name: ISA RO ?Study Date: 03/19/2024 09:03 AMBP: 129/68 mmHg ? Patient Location: : 1965 ? Height: 158 cm ? Account: [id number] Age: 59 yrs ? Weight: 57 kg Gender: Female ?BSA: 1.6 m2 Ordering Physician: GANESH NGUYEN Referring Physician: GANESH NGUYEN Performed By: PEREZ Carlos Reason For Study: STEMI involving LAD Exam Location: [facility]. Interpretation Summary Normal left ventricle size with mildly reduced LV function. LV ejection fraction 49%. LAD territory wall motion abnormality, predominantly involving the LV apex. No LV thrombus visualized with echo contrast. Normal right ventricle. No significant valvular abnormalities. Compared with prior echo dated 08/28/23, LV function has now decreased and new wall motion abnormalities. Procedure Complete-[id number]. Image enhancement Definity was used for left [...] Note Destin Ambrosio MD - 03/19/2024 [address] [place] [address] Echocardiogram Report Name: ISA RO Study Date: 409:03 AMBP: 129/68 mmHg Patient Location: : 1965 Height: 158 cm Account: [id number] Age: 59 yrs Weight: 57 kg Gender: Female BSA: 1.6 m2 Ordering Physician: GANESH NGUYEN Referring Physician: GANESH NGUYEN Performed By: PEREZ Carlos Reason For Study: STEMI involving LAD Exam Location: [facility]. Interpretation Summary Normal left ventricle size with mildly reduced LV function. LV ejectionfraction 49%. LAD territory wall motion abnormality, predominantly involving the LVapex. No LV thrombus visualized with echo contrast. Normal right ventricle. No significant valvular abnormalities. Compared with prior echo dated 08/28/23, LV function has now decreased andnew wall motion abnormalities. Procedure Complete-[id number]. Image enhancement Definity was used for left [...] Chest One View (03/19/2024 8:37 AM EDT) [employer] WORKSTATION ID [id number] RAD Anatomical Region Laterality Modality Chest N/A [...] who have questions please contact the health day care center director that requested your imaging first. ? Electronically signed by: Isa Whitley MD, [facility] ??([phone]), at 03/19/2024 10:09 AM Narrative 03/19/2024 10:09 [...] patients who have questions please contactthe health day care center director that requested your imaging first. Delores Jett MD IMG DX ORDERABLES * APTT (03/19/2024 5:25 AM EDT) Only the most recent of2 resultswithin the time period is included. [facility] Signature Partial Thromboplastin Time 29 25 - 37 sec [facility] Comment: The PTT is NOT appropriate for heparin monitoring. Use the Anti-Xa level for heparin monitoring (HEP UFH) or LMWH monitoring (HEP LMW). A PTT less than 37 seconds generally indicates adequate hemostasis. Blood 03/19/2024 5:25 AM EDT 03/19/2024 5:34 AM EDT Narrative Resulting Agency Comment Spec In Lab Ganesh Nguyen MD HEMATOLOGY ORDERA BLES Performing Organization Address [facility] de Phone Number [facility] [place] [address] * Prothrombin Time (03/19/2024 5:25 AM EDT) Only the most recent of2 resultswithin the time period is included. [facility] Prothrombin Time 10.9 9.4 - 12.5 sec [facility] International Normalization Ratio 1.0 [facility] Comment: An INR <2.0 indicates [...] HEMATOLOGY ORDERA BLES Performing Organization Address [facility] Co de Phone Number [facility] [place] [address] * Hemoglobin A1c (03/19/2024 5:25 AM EDT) Pathologist [facility] Hemoglobin A1c 5.6 4.3 - 5.6 % [facility] Comment: Reference Range: 4.3 - [...] Mellitus, Diabetes Care 2013; 36: Suppl. 1, C88-73 Estimated Average Glucose 114 mg/dL [facility] Blood Venous Draw / Unknown 03/19/2024 5:25 AM EDT 03/19/2024 3:52 PM EDT Narrative Resulting Agency Comment Spec In Lab Horace Hancock MD CHEMISTRY ORDERABLES [facility] [place] [address] * Lipid Panel (Reflex Direct LDL) (03/19/2024 5:25 AM EDT) Cholesterol, Total 324 mg/dL [facility] Comment: Desirable: ? <200 mg/dL Borderline High: 200-239 mg/dL Higher: ?>vj=891 mg/dL Triglyceride 200 mg/dL [facility] Comment: Normal: ?<150 mg/dL Borderline High: 150-199 mg/dL High: ?200-499 mg/dL Very High: ? >nx=101 mg/dL HDL Cholesterol 68 mg/dL [facility] Comment: Females: High Risk: <50 mg/dL Males: High Risk: <40 mg/dL LDL Cholesterol 216 mg/dL [facility] Comment: Desirable: ? <100 mg/dL Above Desirable: 100-129 mg/dL Borderline High: 130-159 mg/dL High: ?160-189 mg/dL Very High: ? >wr=956 mg/dL Lipid Interpretation See Note [facility] Comment: It is important to [...] individuals with atherosclerotic cardiovascular disease (ASCVD)or LDL >ka=144 mg/dL, use a high-intensity statin (40-80 mg [...] Lab Ganesh Nguyen MD CHEMISTRY ORDERAB LES [facility] [place] [address] * (ABNORMAL) Comprehensive metabolic panel (non-fasting) (03/19/2024 5:25 AM EDT) Glucose 181 65 - 199 mg/dL [facility] Comment:Diabetes: >=200 mg/d L plus symptoms Blood Urea Nitrogen 14 8 - 18 mg/dL [facility] Creatinine 0.91 0.70 - 1.20 mg/dL [facility] Sodium 137 135 - 145 mmol/L [facility] Potassium 4.2 3.5 - 5.0 mmol/L [facility] Comment: Please note: ??Patients with WBC >100,000 may have falsely elevated Potassium levels. ??For accurate Potassium quantification in these patients send serum separator tube (gold top) for subsequent determinations. ??Contact the Clinical Chemistry Laboratory if there are any questions. Chloride 100 98 - 107 mmol/L [facility] Carbon Dioxide 22 22 - 31 mmol/L [facility] Anion Gap 15 5 - 15 mmol/L [facility] Calcium 8.7 8.5 - 10.5 mg/dL [facility] Protein, Total 7.2 6.1 - 8.0 g/dL [facility] Albumin 4.5 3.2 - 5.2 g/dL [facility] Aspartate Aminotransferase 95(H) 0 - 30 unit/L [facility] Comment:result rechecked-bz Alanine Aminotransferase 31(H) 0 - 30 unit/L [facility] Alkaline Phosphatase 70 35 - 105 unit/L [facility] Bilirubin, Total 0.5 0.2 - 1.3 mg/dL [facility] Est Glomerular Filtration Rate 72 >=60 mL/min/1. 73 m?? [facility] Comment: This patient's estimated GFR [...] MD CHEMISTRY ORDERAB LES Performing Organization Address City/[facility]/ZIP Co de Phone Number [facility] [place] [address] * Phosphorus (03/19/2024 2:20 AM EDT) [facility] Signature Phosphorus 3.8 2.5 - 4.5 mg/dL [facility] Blood 03/19/2024 2:20 AM EDT 03/19/2024 2:59 AM EDT Narrative Resulting Agency Comment Spec In Lab Ganesh Nguyen MD CHEMISTRY ORDERAB LES Performing Organization Address [facility]/ZIP Co de Phone Number [facility] [place] [address] * (ABNORMAL) pro-Brain Natriuretic Peptide (03/19/2024 2:20 AM EDT) [facility] Signature NT-proBNP 529(H) <=124 pg/mL [facility] Blood 03/19/2024 2:20 AM EDT 03/19/2024 2:59 AM EDT Narrative Resulting Agency Comment Spec In Lab Ganesh Nguyen MD CHEMISTRY ORDERAB LES Performing Organization Address [facility] Co de Phone Number [facility] [place] [address] * (ABNORMAL) Hepatic Function Panel (03/19/2024 2:20 AM EDT) Protein, Total 6.7 6.1 - 8.0 g/dL [facility] Albumin 4.3 3.2 - 5.2 g/dL [facility] Aspartate Aminotransferase 49(H) 0 - 30 unit/L [facility] Alanine Aminotransferase 26 0 - 30 unit/L [facility] Alkaline Phosphatase 67 35 - 105 unit/L [facility] Bilirubin, Total 0.4 0.2 - 1.3 mg/dL [facility] Bilirubin, Direct 0.1 0.0 - 0.3 mg/dL [facility] Blood 03/19/2024 2:20 AM EDT 03/19/2024 2:59 AM EDT Narrative Resulting Agency Comment Spec In Lab Ganesh Nguyen MD CHEMISTRY ORDERAB LES [facility] [place] [address] * (ABNORMAL) Point of Care Blood Gas Historical (03/19/2024 1:41 AM EDT) Only the most recent of2 resultswithin the time period is included. pH, POC 7.28(Criti lewis) 7.35 - 7.45 [facility] pCO2, POC 40 35 - 45 mmHg [facility] pO2, POC 84(L) 85 - 104 mmHg [facility] Base Excess, POC -8.0(L) -3.0 - 3.0 mmol/L [facility] Bicarbonate, POC 18.6(L) 20.0 - 26.0 mmol/L [facility] Carbon Dioxide, POC 20(L) 22 - 31 mmol/L [facility] Sodium, POC 134(L) 135 - 145 mmol/L [facility] POC Potassium 3.4(L) 3.5 - 5.0 mmol/L [facility] Ionized Calcium, POC 1.09(L) 1.15 - 1.33 mmol/L [facility] POC Hematocrit 38.0 34.0 - 45.0 % [facility] POC Calc Hgb 12.9 11.2 - 15.7 g/dL [facility] Blood 03/19/2024 1:41 AM EDT 03/19/2024 1:41 AM EDT Kathryn Walker MD CHEMISTRY ORDERABL ES [facility] [place] [address] * CARDIAC CATHETERIZATION (03/19/2024 1:36 AM EDT) Anatomical Region Laterality Modality Other Narrative 03/19/2024 7:19 AM EDT ?[facility] ? Cardiac Catheterization/Intervention Report ? Patient Name: Isa Ro. ? Procedure Date: 03/19/2024 ? A #: [id number] ? Primary Physician: Ramo Roy ? Case #: [id number] ? File Name: [id number] ? Catheterization Order Number: [id number] ? [facility] ? Final Report [place], [place] ? Patient Name: ? Isa A. Warnaar ? ID#: ?[id number] ? : ?1965 ? Procedure Date: ? March 19, 2024 ? Case #: ? [id number] ? Room: ? 6 ? Case Physician: [...] procedure was Emergent. The indication for ?the seed analysis laboratory assistant visit is ACS less than [...] ?3.5 guiding catheter and a 3.5 Fr [facility] [place] 20 Mhz using auto 1 ?mm/sec pullback. [...] premounted 3.00 x 08 mm Alberto [place] (JAHAIRA) was deployed ? with a maximum inflation pressure of 12 atmospheres. ? Another stent insertion was accomplished through a 6 Fr. EBU ? 3.5 guide. ??A premounted 2.00 x 08 mm Robinson [place] (JAHAIRA) was ? deployed. ? The final [...] dose administered prior to arrival in the seed analysis laboratory assistant. ?Recommended anti-platelet/anti-thrombotic regimen: ?Start aspirin 81 mg daily now and continue for indefinitely. ?Start clopidogrel 75 mg daily now and continue for 12 months then stop. ?These recommendations are made at the time of the intervention. Patient ?and provider preferences or a changing clinical situation may require ?modification of this regimen. Consult [facility] Interventional Cardiology for ?questions. ?The [...] Consult ?http://tools.acc.org/DAPTriskapp/#!/content/calculator/ or [facility] ?Interventional Cardiology for questions ? [...] Procedure Note Ramo Roy MD - 03/21/2024 [facility] Cardiac Catheterization/Intervention Report Patient Name: Isa Ro Procedure Date: 03/19/2024 A #: [id number] Primary Physician: Ramo Roy Case #: [id number] File Name: [id number] Catheterization Order Number: [id number] [facility] FinalReport [place], [place] Patient Name: Isa Ro ID#:[id number] :1965 Procedure Date: March 19, 2024 Case [...] patientwas designated as ASA Class IV. The [facility] clinical frailty scale is 3: Managing Well. Diagnostic Tests: Prior Coronary Angiography: Prior coronary angiography was performed on 12/15/2014. Electrocardiography: EKG was assessed by ECG. EKG was Abnormal. EKG showed STDeviation >= 0.5 mm and other abnormality. Medications Prior to Procedure: Aspirin. Indications for Diagnostic Cath: The priority of the diagnostic procedure was Emergent. Theindication for the seed analysis laboratory assistant visit is ACS less than [...] 3.5 guiding catheter and a 3.5 Fr [facility] [place] 20 Mhz usingauto 1 mm/sec pullback. Imaging [...] The lesion was predilated with a 2.50mm [id number] MM balloon with a maximum inflation pressure of 14atmospheres. A premounted 3.00 x 08 mm Robinson [place] (JAHAIRA) wasdeployed with a maximum inflation pressure of 12 atmospheres. Another stent insertion was accomplished through a 6 Fr.EBU 3.5 guide. A premounted 2.00 x 08 mm Alberto [place] (JAHAIRA)was deployed. The final outcome was defined [...] dose administered prior to arrival in the seed analysis laboratory assistant. Recommended anti-platelet/anti-thrombotic regimen: Start aspirin 81 mg daily now and continue for indefinitely. Start clopidogrel 75 mg daily now and continue for 12 months thenstop. These recommendations are made at the time of the intervention.Patient and provider preferences or a changing clinical situation mayrequire modification of this regimen. Consult [facility] Interventional Cardiologyfor questions. The 1 [...] treatment.Consult http://tools.acc.org/DAPTriskapp/#!/content/calculator/ or [facility] Interventional Cardiology for questions Conclusions: [...] Documents on File Type Date Recorded Patient Fence Erector Expl anation Advance Directives and Livin g Will 03/21/2024 4:09 PM * Attempt Cardiopulmonary Resuscitation - Inpatient (Latest Code Status on File) Date Activated Date Inactivated Comments 03/19/2024 1:09 AM 03/22/2024 2:16 PM Question Answer Comments Code Status decision made by: Patient Content of discussion: discussed code st [facility] and need for CPR/shocks/intubation in periprocedural period Care Teams Business Office Director Relationship Specialty Start Date End Date None None PCP - General 03/19/24
--- OUTSIDE RECORDS SUMMARY | 2024-04-20 13:10 | XMS_ITS | Encounter Summary ---
Author Organization [facility] Address [address] [place] [address] Care Team Providers Care Web Software Engineer Name Role Phone Pretty Avery MD Primary Care Provider [phone] Encounter Details Date Type Department Care Team (Latest Contact Info) Description 06/06/2010 18:54 EDT - 06/06/2010 23:59 EDT Hospital Encounter [address] [address] Pretty Avery MD [address] [place] [address] Discharge Disposition: Auto Discharge Social History Tobacco [...] on filedocumented in this encounter Care Teams Web Software Engineer Relationship Specialty Start Date End Date Pretty Avery MD [address] [place] [address] PCP - General 06/05/10 documented as of this encounter
--- OUTSIDE RECORDS SUMMARY | 2024-04-20 13:10 | XMS_ITS | Encounter Summary ---
Author Organization [facility] Address [address] [place] [address] Care Team Providers Care Karate Black Belt Name Role Phone Unavailable Primary Care Provider Unavailabl e Encounter Details Date Type Department Care Team (Late st Contact Info) Description 12/31/2007 14:07 EDT Hospital Encounter [address] [address] Skip Alcocer MD [address] [place] [address], [facility] [address] [place] [address] Discharge Disposition: Auto Discharge Social History Tobacco [...] 10:19 EST CYTOPATHOLOGY Routine 08/28/2008 0:00 EST LONG-TERM VIABILITY 12/31/2007 16:20 EDT LONG-TERM CHORIONIC BARRETO SAMPLING 12/31/2007 15:40 EDT documented [...] de Phone Number [facility] [address] [place] [address] * CYTOPATHOLOGY (08/28/2008 0:00 EST) Pathology Report: CYTOPATHOLOGY REPORT ? Reports generated via electronic interface contain original data; ? however they are lacking the format of the original report. ? Caution should be taken when reading/interpreti ng unformatted reports. ? Name: ? EZEQUIEL THOMAS ? Accession #: ? [id number] ? : ? 1965 (Age: 43) ??F ?Collect Date: ? 08/28/2008 ? Location: ? [facility] ? Receive Date: ? 08/30/2008 ? [facility] ?[facility] ? Copy to: ? Specimen/Source: ?Pap Test, [...] significance (ASC-US). ? EDUCATIONAL NOTES/RECOMMENDATI ONS ? [facility]LY [facility] recommends following the 2006 Consensus Guidelines for the Management of Women with Abnormal Cervical Cancer Screening Tests (JLGTD, ? 2007;11(4):201-222 ). ??Consensus guidelines are available online at ? www.ASCCP.org. ? Document reviewed and electronically signed by: ? MARIAA Beverly PLOTZ MD ? Report Date: ??09/04/2008 10:20 ? End of Report ? [facility] 08/28/2008 08/30/2008 Fred Reece [facility] PATHOLOGY ORDERAB LES Performing Organization Address City/State/[facility] Co de Phone Number [facility] [address] [place] [address] * LONG-TERM VIABILITY (12/31/2007 16:20 EDT) Anatomical Region Laterality Modality Other 12/31/2007 16:2 0 EDT Narrative 02/25/2009 13:06 EDT first trimester prior to cvs Please refer to the separate [facility] report. ??Contact Maternal Medicine. Procedure Note Magdalena Strickland MD - 02/25/2009 first trimester prior to cvs Please refer to the separate [facility] report. Contact Maternal Medicine. Magdalena Strickland MD [facility] ORDERABLE S * LONG-TERM CHORIONIC BARRETO SAMPLING (12/31/2007 15:40 EDT) Anatomical Region Laterality Modality Other 12/31/2007 15:4 0 EDT Narrative 02/25/2009 10:52 EDT [facility] WITH DR ALCOCER Please refer to the separate [facility] report. ??Contact Maternal Medicine. Procedure Note Skip Alcocer MD - 02/25/2009 [facility] WITH DR ALCOCER Please refer to the separate [facility] report. Contact Maternal Medicine. Skip Reyes MD [facility] ORDERA BLES documented in this encounter Visit Diagnoses Not on filedocumented in this encounter
--- OUTSIDE RECORDS SUMMARY | 2024-04-20 13:11 | XMS_ITS | Encounter Summary ---
Author Organization [facility] [place] [address] Care Team Providers Care Hand Spring Former Name Role Phone None Primary Care Provider Unavailabl e Encounter Details Date Type Department Care Team (Late st Contact Info) Description 03/18/2024 Telephone Cardiology at [address] [address] Yusuf Herrera MD [facility] [place] [address] Social History Tobacco Use Types Packs/Day Years Used Date Smoking Tobacco: Former Smokeless Tobacco: Never [facility] Inpatient Questions Answer Date Recorded [...] 03/19/24 Initial Contact Time: 2209 Patient Location: [facility] Presenting Symptoms per OSH: 59 year old female, history of CAD c/b NSTEMI (see below), hypertension, hyperlipidemia, who was resting at home at 20:30 when she developed substernal chest pressure radiating to right arm which wasvery severe and reminiscent of prior LA. Associated with diaphoresis. No syncope, SOB, palpitations, [...] relief, but was still having CP. 03/30/14 [facility] Left main: Free of angiographically significant [...] mg and starting heparin gtt -Launch to [facility] cath lab technologist for lateral wall STEMI Above recommendations/plans are based on my conversation with the referring provider. I have not personally interviewed or examined this patient. Yusuf Herrera MD Test Puller documented in this encounter Plan of Treatment Upcoming Encounters Date Type Department Care Team (Late st Contact Info) Description 05/09/2024 10:40 AM EDT Office Visit Cardiology at [address] [address] Herlinda Weaver PA [facility] [place] [address] documented as of this encounter Visit Diagnoses Not on filedocumented in this encounter Care Teams Hand Spring Former Relationship Specialty Start Date End Date None None PCP - General 03/19/24 documented as of this encounter
--- OUTSIDE RECORDS SUMMARY | 2024-04-20 13:11 | XMS_ITS | Encounter Summary ---
Author Organization [facility] [place] [address] Care Team Providers Care Drum Barker Operator Name Role Phone Pretty Avery MD Primary Care Provider [phone] Reason for Visit * Reason Comments Skin Check hx of SCC Encounter Details Date Type Department Care Team (Late st Contact Info) Description 01/14/2019 1:30 PM EDT Office Visit Dermatology at [facility] [address] [place] [address] Patrizia Moralez MD [facility] [address] [place] [address] Multiple benign nevi; Lentigines; Seborrheic keratosis; History [...] History: Left lower back, sBCC, ED&C on 01-33-62-[facility] Seborrheic keratoses Family History: Melanoma: None Father [...] by: Patrizia Moralez MD Resident in Dermatology [facility] Patient seen and evaluated with staff brand mgr: Lisa Candelario MD Section of Dermatology [facility] * Lisa Candelario MD - 01/14/2019 [...] 10:40 AM EDT Office Visit Cardiology at [address] [address] Herlinda Weaver PA [facility] [place] [address] documented as of this encounter Visit Diagnoses Diagnosis Multiple benign nevi Benign neoplasm of skin, site unspecified Lentigines Other dyschromia Seborrheic keratosis Other seborrheic keratosis History of basal cell cancer Personal history of other malignant neoplasm of skin Garcia angioma Nevus, non-neoplastic Skin cancer screening Screening for malignant neoplasm of the skin Arthropod bite, initial encounter documented in this encounter Care Teams Drum Barker Operator Relationship Specialty Start Date End Date Pretty Avery MD [address] [place] [address] PCP - General 08/06/10 03/18/24 documented as of this encounter
--- OUTSIDE RECORDS SUMMARY | 2024-04-20 13:11 | XMS_ITS | Encounter Summary ---
Author Organization [facility] Address [facility] [place] [address] Care Team Providers Care Pad Making Machine Operator Name Role Phone Pretty Avery MD Primary Care Provider [phone] Reason for Visit * Reason Comments Basal Cell Carcinoma * Consultation (Routine) - Closed Specialty Diagnoses / Procedures Referred By Contac t Referred To Contact Dermatology Diagnoses skin lesion lower back, basel cell ca Isa Estrada MD [address] [place] [address] [facility] Dermatology [address] [place] [address] Referral ID Status Reason Start Date Expiration Date V isits Requested Visits Authorized [id number] Closed Evaluate and Treat [facility] 12/17/2015 12/16/2016 1 1 Encounter Details Date Type Department Care Team (Late st Contact Info) Description 12/19/2015 2:30 PM EDT Office Visit Dermatology at [facility] [address] [place] [address] Lisa Candelario MD [facility] [place] [address] Superficial basal cell carcinoma; Seborrheic [...] or concerns, please call the office at [phone]. If it is after 5PM, or a holiday or weekend, please call [phone] and ask for the Booth Supervisor on-call. documented in this encounter Progress Notes [...] encounter. Lisa Candelario MD Section of Dermatology [facility] documented in this encounter Plan of Treatment Upcoming Encounters Date Type Department Care Team (Late st Contact Info) Description 05/09/2024 10:40 AM EDT Office Visit Cardiology at [address] [address] Herlinda Weaver PA [facility] [place] [address] documented as of this encounter Visit Diagnoses Diagnosis Superficial basal cell carcinoma Basal cell carcinoma of skin, site unspecified Seborrheic keratosis Other seborrheic keratosis documented in this encounter Care Teams Pad Making Machine Operator Relationship Specialty Start Date End Date Pretty Avery MD [address] [place] [address] PCP - General 08/06/10 03/18/24 documented as of this encounter
--- OUTSIDE RECORDS SUMMARY | 2024-04-20 13:11 | XMS_ITS | Encounter Summary ---
Author Organization [facility] Address [facility] [place] [address] Care Team Providers Care Online Editor Name Role Phone Pretty Avery MD Primary Care Provider [phone] Encounter Details Date Type Department Care Team (Latest Contact Info) Description 03/18/2024 11:37 PM EDT - 03/18/2024 11:59 PM EDT Hospital En[place] [address] Destin Ambrosio MD [facility] [place] [address] Discharge Disposition: Home Social History Tobacco Use [...] AM EDT Office Visit Cardiology at [address] [address] Herlinda Weaver PA [facility] [place] [address] documented as of this encounter Visit Diagnoses Not on filedocumented in this encounter Care Teams Online Editor Relationship Specialty Start Date End Date Pretty Avery MD [address] [place] [address] PCP - General 08/06/10 03/18/24 documented as of this encounter
--- OUTSIDE RECORDS SUMMARY | 2024-04-20 13:11 | XMS_ITS | Encounter Summary ---
[place] [address] Care Team Providers Care Parking Enforcement Officer Name Role Phone Pretty Avery MD Primary Care Provider [phone] Reason for Referral * Diagnostic Test (Routine) - Closed Specialty Diagnoses / Procedures Referred By Contac t Referred To Contact Cardiology Diagnoses Hyperlipidemia, unspecified hyperlipidemia type Procedures Mobile Demi Gross APRN [address] [place] [address] [facility] [place] [address] Referral ID Status Reason Start Date Expiration Date V isits Requested Visits Authorized [id number] Closed Specialty Service Requested 08/28/2023 08/27/2024 1 1 Reason for Visit * Diagnostic Test (Routine) - Closed Specialty Diagnoses / Procedures Referred By Contac t Referred To Contact Cardiology Diagnoses Hyperlipidemia, unspecified hyperlipidemia type Procedures Mobile Echo Demi Archibald APRN [address] [place] [address] [facility] [place] [address] Referral ID Status Reason Start Date Expiration Date V isits Requested Visits Authorized [id number] Closed Specialty Service Requested 08/28/2023 08/27/2024 1 1 Encounter Details Date Type Department Care Team (Latest Contact Info) Description 08/28/2023 3:53 PM EST - 08/28/2023 11:59 PM EST Hospital Encounter [place] [address] Demi Archibald APRN [address] [place] [address] Hyperlipidemia, unspecified hyperlipidemia type Discharge Disposition: Home [...] AM EDT Office Visit Cardiology at [address] [address] Herlinda Weaver PA [facility] [place] [address] documented as of this encounter Procedures Procedure Name Priority Date/Time Associated Diagnosis Comments ECHO COMPLETE Routine 08/28/2023 4:04 PM EST Hyperlipidemia, unspecified hyperlipidemia type documented in this encounter Results * ECHO COMPLETE (08/28/2023 4:04 PM EST) Anatomical Region Laterality Modality Other 08/28/2023 2:15 PM EST Narrative 08/28/2023 4:14 PM EST [address] [place] [address] ? Echocardiogram Report Name: EZEQUIEL THOMAS ?Study Date: 08/28/2023 02:15 PM ? [facility] 1965 ? Height: 157 cm ? Account: [id number] Age: 58 yrs ? Weight: 57 kg Gender: Female ?BSA: 1.6 m2 Ordering Physician: DEMI ARCHIBALD Referring Physician: DEMI ARCHIBALD Reason For Study: CAD, HLD, HTN Exam Location: [facility]. Interpretation Summary Normal biventricular size and function. LVEF 60-65% by visual assessment. Normal diastolic function. Normal pulmonary pressures. Normal atrial sizes. Mild mitral regurgitation. No prior for comparison. Procedure Complete-[id number]. Satisfactory quality. Left Ventricle Wall thickness is [...] Note Kaylee Sutherland MD - 08/28/2023 [address] [place] [address] Echocardiogram Report Name: EZEQUIEL THOMAS Study Date:08/28/2023 02:15 PM Patient Location: : 1965 Height: 157 cm Account: [id number] Age: 58 yrs Weight: 57 kg Gender: Female BSA: 1.6 m2 Ordering Physician: DEMI ARCHIBALD Referring Physician: DEMI ARCHIBALD Reason For Study: CAD, HLD, HTN Exam Location: [facility]. Interpretation Summary Normal biventricular size and function. LVEF 60-65% by visual assessment.Normal diastolic function. Normal pulmonary pressures. Normal atrial sizes. Mild mitral regurgitation. No prior for comparison. Procedure Complete-[id number]. Satisfactory quality. Left Ventricle Wall thickness is [...] type documented in this encounter Care Teams Parking Enforcement Officer Relationship Specialty Start Date End Date Pretty Avery MD [address] [place] [address] PCP - General 08/06/10 03/18/24 documented as of this encounter
--- OUTSIDE RECORDS SUMMARY | 2024-04-20 13:11 | XMS_ITS | Encounter Summary ---
Author Organization [facility] [place] [address] Care Team Providers Care Stoner Out Name Role Phone Pretty Avery MD Primary Care Provider [phone] Reason for Visit * Reason Comments Skin Check Encounter Details Date Type Department Care Team (Late st Contact Info) Description 02/04/2017 1:15 PM EDT Office Visit Dermatology at [facility] [address] [place] [address] Lisa Candelario MD [facility] [place] [address] Seborrheic keratosis; Multiple benign nevi; History of [...] encounter. Lisa Candelario MD Section of Dermatology [facility] documented in this encounter Plan of Treatment Upcoming Encounters Date Type Department Care Team (Late st Contact Info) Description 05/09/2024 10:40 AM EDT Office Visit Cardiology at [address] [address] Herlinda Weaver PA [facility] [place] [address] documented as of this encounter Visit Diagnoses Diagnosis Seborrheic keratosis Other seborrheic keratosis Multiple benign nevi Benign neoplasm of skin, site unspecified History of basal cell cancer Personal history of other malignant neoplasm of skin documented in this encounter Care Teams Stoner Out Relationship Specialty Start Date End Date Pretty Avery MD [address] [place] [address] PCP - General 08/06/10 03/18/24 documented as of this encounter
--- OUTSIDE RECORDS SUMMARY | 2024-04-20 13:11 | XMS_ITS | Encounter Summary ---
Author Organization [facility] [place] [address] Care Team Providers Care Credentials Specialist Name Role Phone None Primary Care Provider Unavailabl e Encounter Details Date Type Department Care Team (Late st Contact Info) Description 03/18/2024 External Results Emergency Department [facility] [place] [address] Social History Tobacco Use Types Packs/Day Years Used Date Smoking Tobacco: Former Smokeless Tobacco: Never [facility] Utilities Answer Date Recorded In the [...] AM EDT Office Visit Cardiology at [address] [address] Herlinda Weaver PA [facility] [place] [address] documented as of this encounter Procedures Procedure [...] on filedocumented in this encounter Care Teams Credentials Specialist Relationship Specialty Start Date End Date None None PCP - General 03/19/24 documented as of this encounter
--- OUTSIDE RECORDS SUMMARY | 2024-04-20 13:11 | XMS_ITS | Encounter Summary ---
Author Organization [facility] [place] [address] Care Team Providers Care Sandal Parts Assembler Name Role Phone Pretty Avery MD Primary Care Provider [phone] Encounter Details Date Type Department Care Team [...] AM EDT Office Visit Cardiology at [address] [address] Herlinda Weaver PA [facility] [place] [address] documented as of this encounter Visit Diagnoses Not on filedocumented in this encounter Care Teams Sandal Parts Assembler Relationship Specialty Start Date End Date Pretty Avery MD [address] [place] [address] PCP - General 08/06/10 03/18/24 documented as of this encounter
--- OUTSIDE RECORDS SUMMARY | 2024-04-20 13:11 | XMS_ITS | Encounter Summary ---
Author Organization [facility] [place] [address] Care Team Providers Care Feller Seam Operator Name Role Phone Pretty Avery MD Primary Care Provider [phone] Encounter Details Date Type Department Care Team (Late st Contact Info) Description 12/08/2023 10:30 AM EDT Office Visit Dermatology at [facility] [address] [place] [address] Aylin Cole MD [facility] [address] [place] [address] Skin cancer screening; Inflamed seborrheic keratosis; History [...] FBSE otherwise PRN []Note routed to executive legal secretary [x]Recall placed in scheduling system []Appointment scheduled at checkout Scribe attestation: Juliet Angulo [facility] CENTERChuy has performed the documentation for this encounter in the presence of and acting as a scribe for Aylin Cole MD. I performed the above scribed service and agree with the accuracy of the documentation in this encounter. Reviewed and signed by: Aylin Cole MD Dermatology [facility] documented in this encounter Plan of Treatment Upcoming Encounters Date Type Department Care Team (Late st Contact Info) Description 05/09/2024 10:40 AM EDT Office Visit Cardiology at [address] [address] Herlinda Weaver PA [facility] [place] [address] documented as of this encounter Visit Diagnoses Diagnosis Skin cancer screening Screening for malignant neoplasm of the skin Inflamed seborrheic keratosis History of basal cell carcinoma (BCC) Seborrheic dermatitis Seborrheic dermatitis, unspecified Seborrheic keratoses Multiple benign nevi of upper extremity, lower extremity, and trunk Lentigines Other dyschromia Garcia angioma Nevus, non-neoplastic documented in this encounter Care Teams Feller Seam Operator Relationship Specialty Start Date End Date Prtety Avery MD [address] [place] [address] PCP - General 08/06/10 03/18/24 documented as of this encounter
--- OUTSIDE RECORDS SUMMARY | 2024-04-20 13:11 | XMS_ITS | Encounter Summary ---
Author Organization [facility] [place] [address] Care Team Providers Care Water Softener Installer Name Role Phone None Primary Care Provider Unavailabl e Reason for Visit * Auth/Cert (Routine) Specialty Diagnoses / Procedures Referred By Contac t Referred To Contact Diagnoses Acute ST elevation myocardial infarction (STEMI) due to occlusion of left anterior descending (LAD) coronary artery stemi Procedures EMERGENCY IPI Destin Ambrosio MD [facility] [place] [address] [facility] Referral ID Status Reason Start Date Expiration Date Visits Re quested Visits Authorized [id number] 1 1 Encounter Details Date Type Department Care Team (Late st Contact Info) Description 03/19/2024 1:05 AM EDT - 03/19/2024 2:06 AM EDT Surgery [employer] [place] [address] Ramo Roy MD [facility] [place] [address] CARDIAC CATHETERIZATION Social History Tobacco Use Types Packs/Day Years Used Date Smoking Tobacco: Former Smokeless Tobacco: Never Alcohol Use Standard Drinks/Week Comments Yes 14 (1 standard drink = 0.6 oz pu re alcohol) [facility] Inpatient Questions Answer Date Recorded Does Anyone [...] Isa Ro Patient Age: 59 y.o. Language: Mauritanian Race: White Ethnicity: Not nor Admit date: [...] and hypercapnic respiratory failure in the lab pack chemist, potentially also due to sedation. Patient briefly [...] mildly reduced LVEF [ ] f/u [facility] cardiology scheduled. [facility] cardiology referral sent Inpatient Provider Contact Information: Kathryn Walker MD [phone] For questions regarding this document or issues relating to this hospitalization on the Medical Service, please contact your inpatient physician through the [facility] Salesperson [employer] . Issues afterhours and on weekends will [...] 03/19/2024 8:37 AM) Result Value WORKSTATION ID [id number] Narrative EXAMINATION: XR CHEST ONE VIEW CLINICAL [...] who have questions please contact the health child adolescent care that requested your imaging first. Cardiac Catheterization (Exam End: 03/19/2024 1:36 AM) Narrative [facility] Cardiac Catheterization/Intervention Report Patient Name: Isa Ro Procedure Date: 03/19/2024 A #: [id number] Primary Physician: Ramo Roy Case #: [id number] File Name: [id number] Catheterization Order Number: [id number] [facility] Waste And Batting Waste Chopper [facility] Final Report [place], [place] Patient Name: Isa Ro ID#: [id number] : 1965 Procedure Date: March 19, 2024 [...] was designated as ASA Class IV. The [facility] clinical frailty scale is 3: Managing Well. Diagnostic Tests: Prior Coronary Angiography: Prior coronary angiography was performed on 12/15/2014. Electrocardiography: EKG was assessed by ECG. EKG was Abnormal. EKG showed ST Deviation >= 0.5 mm and other abnormality. Medications Prior to Procedure: Aspirin. Indications for Diagnostic Cath: The priority of the diagnostic procedure was Emergent. The indication for the lab pack chemist visit is ACS less than or equal [...] 3.5 guiding catheter and a 3.5 Fr Greenlee Eye Mechoopda 20 Mhz using auto 1 mm/sec pullback. [...] for the procedure was Emergent. The [facility] indication for the procedure was [...] A premounted 3.00 x 08 mm Alberto Rapides (JAHAIRA) was deployed with a maximum inflation pressure of 12 atmospheres. Another stent insertion was accomplished through a 6 Fr. EBU 3.5 guide. A premounted 2.00 x 08 mm [place] Rapides (JAHAIRA) was deployed. The final outcome was [...] administered prior to arrival in the lab pack chemist. Recommended anti-platelet/anti-thrombotic regimen: Start aspirin 81 mg daily now and continue for indefinitely. Start clopidogrel 75 mg daily now and continue for 12 months then stop. These recommendations are made at the time of the intervention. Patient and provider preferences or a changing clinical situation may require modification of this regimen. Consult [facility] Interventional Cardiology for questions. The 1 year [...] any medical treatment. Consult http://tools.acc.org/DAPTriskapp/#!/content/calculator/ or [facility] Interventional Cardiology for questions Conclusions: * One [...] decreased and new wall motion abnormalities. Procedure Complete-71405. Image enhancement Definity was used for left [...] LAD in 03/2014, HLD, who presented to [facility] with chest pain. She developed chest pain around 2100 on 03/18 which prompted her to call EMS. She was given 325mg of aspirin and nitroglycerin. On arrival to [facility], she was found to have an EKG suggestive of anterior STEMI for which she was given half dose TNKfor systemic lysis prior to speaking with Dr. Herrera, on-call insurance defense paralegal at [facility]. She was subsequently transferred directly to the [facility] lab pack chemist where coronary angiography revealed a 100% occluded [...] away. Stay on the phone. The emergency tassel making machine operator will tell you what to [...] of 8AM-5PM please call the Cardiology Clinic [phone] to speak with a nurse. All other hours please call the Hospital Salesperson [employer] [phone] and ask to speak to the cardiovascular hospitalist on-call. Return to work: One week Follow up Appointments: Doctor Where Phone # Date Time PCP MELECIO Polanco [address] [place] [address] 234 04/04/24 7:55 AM Drilling Manager Herlinda Weaver PA-C [facility] Cardiology 4A Clinic [phone] 05/09/24 10:40 AM (pleasearrive by 10:20 AM) *A referral has also been placed to [facility] cardiology, though you will need to follow-up with them regarding scheduling appointments at [phone] General Instructions None Future Appointments and Orders Future Appointments and Orders Future Appointments Provider Department Dept Phone 05/09/2024 10:40 AM Herlinda Weaver PA Cardiology at [facility] Arrive at: It Trainer Area [phone] Future Orders Complete By Expires Referral to Cardiac Rehab [[id number] Custom] As directed Process Instructions: If no progress note charted, please enter Clinical details in comments. Scheduling Instructions: Questions: My question or request is: s/p STEMI- cardiac rehab at [facility] Referral to Cardiology [REF12 Custom] As directed Process Instructions: If no progress note charted, please enter Clinical details in comments. Scheduling Instructions: Questions: My question or request is: s/p STEMI Discharge References/Attachments None Greater than 30 minutes was spent on this discharge including documentation, [id number]-[id number]-[id number] time withthe patient, patient education, orderly, coordination with pharmacy and other patient [...] away. Stay on the phone. The emergency tassel making machine operator will tell you what to [...] cardiac rehab has also been placed to [facility]. Call your doctor if: Chest pain, dyspnea, pain or swelling in legs occurs, or for weight gain of 2 pounds overnight or 5pounds in 5 days. If you have non-emergent questions, prior to your follow-up visit call: Thursday-Thursday between the hours of 8AM-5PM please call the Cardiology Clinic [phone] to speak with a nurse. All other hours please call the Hospital Salesperson [employer] [phone] and ask to speak to the cardiovascular hospitalist on-call. Return to work: One week Follow up Appointments: Doctor Where Phone # Date Time PCP MELECIO Polanco [address] [place] [address] 04/04/24 7:55 AM Drilling Manager Herlinda Weaver PA-C [facility] Cardiology 4A Clinic [phone] 05/09/24 10:40 AM (pleasearrive by 10:20 AM) *A referral has also been placed to [facility] cardiology, though you will need to follow-up with them regarding scheduling appointments at [phone] documented in this encounter Medications at Time [...] agreed to participate in cardiac rehab at [facility] following discharge Review of Systems: Review [...] have resulted in hypoxemia in the lab pack chemist. She was also a bit hypercapnic which [...] pt re: Losartan/GDMT consideration -Cardiac Rehab at [facility] following discharge -Telemonitoring x72 hours -Plan for discharge tomorrow -Cardiology appointment scheduled 05/09/2024 at 10:40 AM t [facility] #Significant HLD -LDL 324 -Atorvastatin 80mg daily [...] have resulted in hypoxemia in the lab pack chemist. 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 I [...] MD - 03/19/2024 2:50 AM EDT [facility] TeleICU Initial Assessment Note I established audio/visual communication with the patient's room, reviewed the eDH. History and Assessment: 59 yo F transferred from [facility] for a STEMI alert. Received ASA [...] Isa Ro 1965 Age: 59 y.o. PCP: Prtety Avery MD (Inactive) Date of Service: 03/19/2024 [...] => BiPAP started Following procedure, transferred to [facility] - able to be weaned to [...] Hospital to which patient presented: [facility] to which patient presented= [facility]: ED via EMS Date and Time of [...] Not contraindicated Plan STEMI Alert called: Yes Waste And Batting Waste Chopper Activated by: Network Developer Initial Disposition: Admit Waste And Batting Waste Chopper documented in this encounter H&P Notes * aGnesh Nguyen MD - 03/19/2024 1:11 AM EDT [...] to LAD in 03/2014, HLD,who presented to [facility] with chest pain. She developed chest pain around 2100 on 03/18 which prompted her to call EMS. She was given 325mg of aspirin and nitroglycerin. On arrival to [facility], she was found to have an EKG suggestive of anterior STEMI for which she was given half dose TNK for systemic lysis prior to speaking with Dr. Herrera, on-call insurance defense paralegal at [facility]. She was subsequently transferred directly to the [facility] lab pack chemist where coronary angiography revealed a 100% occluded [...] have resulted in hypoxemia in the lab pack chemist. She was also a bit hypercapnic which [...] Cardiopulmonary Resuscitation - Inpatient Ganesh Nguyen MD Network Developer [id number] documented in this encounter Miscellaneous Notes [...] [facility] [address] [facility] [address] Cardiology, [facility] [address] [facility] [address] Transportation: family or friend will provide Functional [...] 03/21/2024 4:02 PM EDT Patient completed a [place] advance directive. Patient identified her sister Stacia [...] N/A ; Prescription Coverage: Yes Preferred Pharmacy: [facility] [address] [facility] [address] [place], [place] [address]way [address] [facility] [address] [id number] - [place], [place] - [address] [place] [address] [address] [facility] [address] [facility] [address] [facility] - [place], [place] - [address] [facility] [address] [place] [address] Advance Care Planning: Attempt Cardiopulmonary Resuscitation - Inpatient <no information> -Advanced Directive: No, need to discuss (RS referral sent for AD discussion) Current Functional Ability: Assistive Person Functional Status Prior to Admission: Independent Home Environment: Others in the home: child(lucian), minor (lives with her 15yo son). Current Living Arrangements: home/apartment/condo. Accessibility Concerns:house with 3 floors and 2 [address]. Current DME: none [address] [facility] [address] Social & Family Supports: All names listed below confirmed with patient as current and correct Extended Emergency Contact Information Primary Emergency Contact: [facility] [place] Relation: Mother [...] to for AD discussion today. Registered Nurse Custodial Services Manager / Chinese Medicine Practitioner will continue to follow patient???s progress and [...] in an outpatient cardiac rehabilitation program at [facility] was discussed. Patient agrees to a [...] Appropriate) * Plan of Care - Javon ySkes RN - 03/19/2024 11:09 PM EDT Problem: [...] Operative Note Patient Name: Isa Ro : [id number] MR#: [id number] Case Date: 03/19/2024 Surgeon: Surgeons and Role: [...] AM EDT Office Visit Cardiology at [address] [address] Herlinda Weaver PA [facility] [place] [address] Scheduled Referrals Name Type Priority Associated Diagnoses [...] 5:06 AM EDT) Neutrophil % 71.6 % [facility] Neutrophil Absolute 8.34(H) 1.70 - 6.10 x10(3)/mc L [facility] Lymph % 17.4 % [facility] Lymphocytes Abs 2.0 0.9 - 3.2 x10(3)/mc L [facility] Monocyte % 8.2 % [facility] Monocyte Abs 1.0(H) 0.3 - 0.9 x10(3)/mc L [facility] Eos % 2.2 % [facility] Eosinophils Abs 0.3 0.0 - 0.4 x10(3)/mc L [facility] Basophil % 0.3 % [facility] Baso Absolute 0.0 0.0 - 0.1 x10(3)/mc L [facility] Immature Gran % 0.30 % [facility] Comment: Immature granulocytes(IG's)percentage and absolute count will include metamyelocytes, myelocytes, and promyelocytes. Blood smears from CBCs yielding IG's will be scanned manually for concordance. If this scan disagrees with the automated IG or if promyelocytes are noted, a manual differential will be performed. Immature Gran Absolute 0.03 0.00 - 0.04 x10(3)/mc L [facility] Blood 03/22/2024 5:06 AM EDT 03/22/2024 5:12 AM EDT Narrative Resulting Agency Comment Spec In Lab Horace Hancock MD HEMATOLOGY ORDERABLE S [facility] [place] [address] * (ABNORMAL) Hemogram (03/22/2024 5:06 AM EDT) White Blood Cell 11.6(H) 4.0 - 9.5 x10(3)/mc L [facility] Red Blood Cell 4.80 4.00 - 5.21 x10(6)/mc L [facility] Hemoglobin 13.5 11.7 - 15.5 g/dL [facility] Hematocrit 40.3 35.7 - 45.8 % [facility] Mean Cell Volume 84.0 82.6 - 94.4 fL [facility] Mean Cell Hemoglobin 28.1 27.1 - 32.0 pg [facility] Mean Cell Hemoglobin Concentration 33.5 31.7 - 35.0 g/dL [facility] Platelet 232 145 - 357 x10(3)/mc L [facility] RDW Standard Deviation 42.2 37.0 - 46.0 fL [facility] RDW coefficient of variation 13.5 11.5 - 14.1 % [facility] Mean Platelet Volume 9.7 7.6 - 12.9 fL [facility] NRBC% auto 0.0 % [facility] NRBC Absolute 0.000 0.000 - 0.000 x10(3)/mc L [facility] Blood 03/22/2024 5:06 AM EDT 03/22/2024 5:12 AM EDT Narrative Resulting Agency Comment Spec In Lab Horace Hancock MD HEMATOLOGY ORDERABLE S [facility] [address] * Basic Metabolic Panel (non-fasting) (03/22/2024 5:06 AM EDT) Glucose 107 65 - 199 mg/dL [facility] Comment:Diabetes: >=200 mg/d L plus symptoms Blood Urea Nitrogen 18 8 - 18 mg/dL [facility] [...] 98 - 107 mmol/L [facility] Carbon Dioxide 24 22 - 31 mmol/L [facility] Anion Gap 10 5 - 15 mmol/L [facility] Calcium 9.2 8.5 - 10.5 mg/dL [facility] Est Glomerular Filtration Rate 76 >=60 mL/min/1. 73 m?? [facility] [...] Hancock MD CHEMISTRY ORDERABLES Performing Organization Address City/[facility]/ZIP Co de Phone Number [facility] [place] [address] * Magnesium (03/22/2024 5:06 AM EDT) Pathologist [facility] Magnesium 0.90 0.69 - 1.07 mmol/L [facility] Blood 03/22/2024 5:06 AM EDT 03/22/2024 5:12 AM EDT Narrative Resulting Agency Comment Spec In Lab Destin Ambrosio MD CHEMISTRY ORDERABLES Performing Organization Address City/[facility]/ZIP Co de Phone Number [facility] [place] [address] * (ABNORMAL) Differential, Automated (03/21/2024 2:57 AM EDT) Pathologist [facility] Neutrophil % 63.0 % [facility] Neutrophil Absolute 6.70(H) 1.70 - 6.10 x10(3)/mc L [facility] Lymph % 24.9 % [facility] Lymphocytes Abs 2.6 0.9 - 3.2 x10(3)/mc L [facility] Monocyte % 8.7 % [facility] Monocyte Abs 0.9 0.3 - 0.9 x10(3)/mc L [facility] Eos % 2.8 % [facility] Eosinophils Abs 0.3 0.0 - 0.4 x10(3)/mc L [facility] Basophil % 0.3 % [facility] Baso Absolute 0.0 0.0 - 0.1 x10(3)/mc L [facility] Immature Gran % 0.30 % [facility] Comment: Immature granulocytes(IG's)percentage and absolute count will include metamyelocytes, myelocytes, and promyelocytes. Blood smears from CBCs yielding IG's will be scanned manually for concordance. If this scan disagrees with the automated IG or if promyelocytes are noted, a manual differential will be performed. Immature Gran Absolute 0.03 0.00 - 0.04 x10(3)/mc L [facility] Blood 03/21/2024 2:57 AM EDT 03/21/2024 3:03 AM EDT Narrative Resulting Agency Comment Spec In Lab Horace Hancock MD HEMATOLOGY ORDERABLE S [facility] [address] * (ABNORMAL) Hemogram (03/21/2024 2:57 AM EDT) White Blood Cell 10.6(H) 4.0 - 9.5 x10(3)/ L [facility] Red Blood Cell 4.54 4.00 - 5.21 x10(6)/mc L [facility] Hemoglobin 12.8 11.7 - 15.5 g/dL [facility] Hematocrit 38.2 35.7 - 45.8 % [facility] Mean Cell Volume 84.1 82.6 - 94.4 fL [facility] Mean Cell Hemoglobin 28.2 27.1 - 32.0 pg [facility] Mean Cell Hemoglobin Concentration 33.5 31.7 - 35.0 g/dL [facility] Platelet 242 145 - 357 x10(3)/mc L [facility] RDW Standard Deviation 42.4 37.0 - 46.0 fL [facility] RDW coefficient of variation 13.7 11.5 - 14.1 % [facility] Mean Platelet Volume 9.5 7.6 - 12.9 fL [facility] NRBC% auto 0.0 % [facility] NRBC Absolute 0.000 0.000 - 0.000 x10(3)/mc L [facility] Blood 03/21/2024 2:57 AM EDT 03/21/2024 3:03 AM EDT Narrative Resulting Agency Comment Spec In Lab Horace Hancock MD HEMATOLOGY ORDERABLE S [facility] [place] [address] * Basic Metabolic Panel (non-fasting) (03/21/2024 2:57 AM EDT) Glucose 98 65 - 199 mg/dL [facility] Comment:Diabetes: >=200 mg/d L plus symptoms Blood Urea Nitrogen 15 8 - 18 mg/dL [facility] [...] 98 - 107 mmol/L [facility] Carbon Dioxide 25 22 - 31 mmol/L [facility] Anion Gap 12 5 - 15 mmol/L [facility] Calcium 9.2 8.5 - 10.5 mg/dL [facility] Est Glomerular Filtration Rate 82 >=60 mL/min/1. 73 m?? [facility] [...] Hancock MD CHEMISTRY ORDERABLES Performing Organization Address City/[facility] Co de Phone Number [facility] [address] * Magnesium (03/21/2024 2:57 AM EDT) Magnesium 0.91 0.69 - 1.07 mmol/L [facility] Blood 03/21/2024 2:57 AM EDT 03/21/2024 3:03 AM EDT Narrative Resulting Agency Comment Spec In Lab Destin Ambrosio MD CHEMISTRY ORDERABLES Performing Organization Address [facility] Co de Phone Number [facility] [place] [address] * Metanephrines, Fractionated Free, plasma (03/21/2024 2:57 AM EDT) Normetanephrine, Free (JANUARY) 0.47 <0.90 nmol/L [facility] Comment: Test Performed by: [facility] [address] [place] [address] Space Studies Faculty Member: Chasity Hernandez Ph.D.; CLIA# [id number] Metanephrine, Free (MAY) <0.20 <0.50 nmol/L [facility] Comment: ADDITIONAL INFORMATION This test was developed and its performance characteristics determined by [facility] in a manner consistent with CLIA requirements. This test has not been cleared or approved by the U.S. Food and Drug Administration. Test Performed by: [facility] [address] [place] [address] [employer] Faculty Member: Chasity Hernandez Ph.D.; CLIA# [id number] Blood 03/21/2024 2:57 AM EDT 03/21/2024 11:29 AM EDT Narrative Resulting Agency Comment Spec In Lab Horace Hancock MD LAB SEND OUT ORDERAB LES Performing Organization Address City/[facility]/ZIP Co de Phone Number [facility] [place] [address] * Iron and TIBC (03/20/2024 10:38 AM EDT) [facility] Iron 57 30 - 150 mcg/dL [facility] TIBC 278 250 - 450 mcg/dL [facility] Iron Saturation 21 20 - 50 % [facility] Blood Venous Draw / Unknown 03/20/2024 10:38 AM EDT 03/20/2024 10:52 AM EDT Narrative Resulting Agency Comment Spec In Lab Horace Hancock MD CHEMISTRY ORDERABLES Performing Organization Address City/[facility]/ZIP Co de Phone Number [facility] [place] [address] * (ABNORMAL) Differential, Automated (03/20/2024 10:38 AM EDT) [facility] Neutrophil % 73.1 % [facility] Neutrophil Absolute 9.60(H) 1.70 - 6.10 x10(3)/mc L [facility] Lymph % 17.3 % [facility] Lymphocytes Abs 2.3 0.9 - 3.2 x10(3)/mc L [facility] Monocyte % 7.5 % [facility] Monocyte Abs 1.0(H) 0.3 - 0.9 x10(3)/mc L [facility] Eos % 1.5 % [facility] Eosinophils Abs 0.2 0.0 - 0.4 x10(3)/[facility] Basophil % 0.3 % [facility] Baso Absolute 0.0 0.0 - 0.1 x10(3)/[facility] Immature Gran % 0.30 % [facility] Comment: Immature granulocytes(IG's)percentage and absolute count will include metamyelocytes, myelocytes, and promyelocytes. Blood smears from CBCs yielding IG's will be scanned manually for concordance. If this scan disagrees with the automated IG or if promyelocytes are noted, a manual differential will be performed. Immature Gran Absolute 0.04 0.00 - 0.04 x10(3)/[facility] Blood 03/20/2024 10:3 8 AM EDT 03/20/2024 10:47 AM EDT Narrative Resulting Agency Comment Spec In Lab Horace Hancock MD HEMATOLOGY ORDERABLE S [facility] [place] [address] * (ABNORMAL) Hemogram (03/20/2024 10:38 AM EDT) White Blood Cell 13.2(H) 4.0 - 9.5 x10(3)/[facility] Red Blood Cell 4.66 4.00 - 5.21 x10(6)/[facility] Hemoglobin 13.0 11.7 - 15.5 g/dL [facility] Hematocrit 38.7 35.7 - 45.8 % [facility] LABORATORY Mean Cell Volume 83.0 82.6 - 94.4 fL [facility] Mean Cell Hemoglobin 27.9 27.1 - 32.0 pg [facility] Mean Cell Hemoglobin Concentration 33.6 31.7 - 35.0 g/dL [facility] Platelet 238 145 - 357 x10(3)/[facility] LABORATORY RDW Standard Deviation 41.7 37.0 - 46.0 [facility] LABORATORY RDW coefficient of variation 13.8 11.5 - 14.1 % [facility] Mean Platelet Volume 9.8 7.6 - 12.9 [facility] LABORATORY NRBC% auto 0.0 % [facility] NRBC Absolute 0.000 0.000 - 0.000 x10(3)/mc L [facility] Blood 03/20/2024 10:3 8 AM EDT 03/20/2024 10:47 AM EDT Narrative Resulting Agency Comment Spec In Lab Horace Hancock MD HEMATOLOGY ORDERABLE S Performing Organization Address City/[facility]/ZIP Co de Phone Number [facility] [place] [place] [address] * Magnesium (03/20/2024 10:38 AM EDT) Magnesium 0.88 0.69 - 1.07 mmol/L [facility] Blood 03/20/2024 10:3 8 AM EDT 03/20/2024 10:47 AM EDT Narrative Resulting Agency Comment Spec In Lab Horace Hancock MD CHEMISTRY ORDERABLES Performing Organization Address City/[facility] Co de Phone Number [facility] [place] [place] [address] * Basic Metabolic Panel (non-fasting) (03/20/2024 10:38 AM EDT) Glucose 108 65 - 199 mg/dL [facility] Comment:Diabetes: >=200 mg/d L plus symptoms Blood Urea Nitrogen 11 8 - 18 mg/dL [facility] [...] 98 - 107 mmol/L [facility] Carbon Dioxide 22 22 - 31 mmol/L [facility] Anion Gap 14 5 - 15 mmol/L [facility] Calcium 9.0 8.5 - 10.5 mg/dL [facility] Est Glomerular Filtration Rate 82 >=60 mL/min/1. 73 m?? [facility] [...] MD CHEMISTRY ORDERABLES Performing Organization Address [facility]/ZIP Co de Phone Number [facility] [place] [address] * Magnesium (03/19/2024 11:01 PM EDT) Magnesium 0.96 0.69 - 1.07 mmol/L [facility] Blood Venous Draw / Unknown 03/19/2024 11:01 PM EDT 03/19/2024 11:06 PM EDT Narrative Resulting Agency Comment Spec In Lab Horace Hancock MD CHEMISTRY ORDERABLES [facility] [place] [address] * (ABNORMAL) Troponin (03/19/2024 11:01 PM EDT) Troponin-T, High Sensitivity 2,406(H) <=14 ng/L [facility] Comment: [...] troponin value can be found in the [facility] Laboratory Test Catalog Troponin - [facility] Laboratory Test Catalog Reference: Fourth Horatio Definition of Myocardial Infarction. Journal of the [place] [employer] 2018;72:2909-0745 Blood 03/19/2024 11:0 1 PM EDT 03/19/2024 11:05 PM EDT Narrative Resulting Agency Comment Spec In Lab Franky Mead MD CHEMISTRY ORDERABLE S [facility] [place] [address] * (ABNORMAL) Troponin (03/19/2024 8:40 PM EDT) Troponin-T, High Sensitivity 2,586(H) <=14 ng/L [facility] Comment: This patient's troponin T concentration was determined using the Lnyda 5th Generation troponin T assay. The 99th [...] troponin value can be found in the [facility] Laboratory Test Catalog Troponin - [facility] Laboratory Test Catalog Reference: Fourth Horatio Definition of Myocardial Infarction. Journal of the [place] [employer] 2018;72:5717-7744 Blood 03/19/2024 8:40 PM EDT 03/19/2024 8:45 PM EDT Narrative Resulting Agency Comment Spec In Lab Ganesh Nguyen MD CHEMISTRY ORDERAB LES [facility] [place] [id number] * EKG 12 Lead (03/19/2024 8:32 PM EDT) Ventricular rate 70 BPM MUSE SYSTEM Atrial Rate 70 BPM MUSE SYSTEM P-R Interval 158 ms MUSE SYSTEM QRS Duration 78 ms MUSE SYSTEM Q-T Interval 470 ms MUSE SYSTEM QTC Calculated (Bezet) 507 ms MUSE SYSTEM Calculated P Belpre 62 degrees MUSE SYSTEM Calculated R Belpre 42 degrees MUSE SYSTEM Calculated T Belpre -158 degrees MUSE SYSTEM INTERPRETATION Normal sinus rhythm Poor R wave progression T wave abnormality, consider lateral ischemia Prolonged QT Abnormal ECG When compared with ECG of 19-MAR-2024 17:27, No significant change was found Confirmed by MD Hebert, Destin ([id number]) on 03/23/2024 8:10:58 AM MUSE SYSTEM 03/19/2024 8:32 PM EDT 03/23/2024 8:10 AM EDT Franky Mead MD ECG ORDERABLES Performing Organization Address [facility] de Phone Number MUSE SYSTEM * EKG 12 Lead (03/19/2024 5:27 PM EDT) Ventricular rate 70 BPM MUSE SYSTEM Atrial Rate 70 BPM MUSE SYSTEM P-R Interval 154 ms MUSE SYSTEM QRS Duration 80 ms MUSE SYSTEM Q-T Interval 460 ms MUSE SYSTEM QTC Calculated (Bezet) 496 ms MUSE SYSTEM Calculated P Belpre 80 degrees MUSE SYSTEM Calculated R Belpre 87 degrees MUSE SYSTEM Calculated T Belpre -96 degrees MUSE SYSTEM INTERPRETATION Normal sinus rhythm T wave abnormality, consider lateral ischemia Prolonged QT Abnormal ECG When compared with ECG of 19-MAR-2024 02:23, Non-specific change in ST segment in Anterior leads T wave inversion more evident in Inferior leads T wave inversion now evident in Anterolateral leads Confirmed by MD Hebert, Destin ([id number]) on 03/23/2024 8:10:45 AM MUSE SYSTEM 03/19/2024 5:27 PM EDT 03/23/2024 8:10 AM EDT Unknown ECG ORDERABLES Performing Organization Address [facility] de Phone Number MUSE SYSTEM * (ABNORMAL) Troponin (03/19/2024 2:45 PM EDT) Pathologist [facility] Troponin-T, High Sensitivity 3,792(H) <=14 ng/L [facility] Comment: [...] troponin value can be found in the [facility] Test Catalog Troponin - [facility] Test Catalog Reference: Fourth Horatio Definition of Myocardial Infarction. Journal of the [place] [employer] 2018;72:0339-9755 Blood 03/19/2024 2:45 PM EDT 03/19/2024 2:54 PM EDT Narrative Resulting Agency Comment Spec In Lab Horace Hancock MD CHEMISTRY ORDERABLES [facility] [place] [address] * ECHO COMPLETE W CONTRAST (03/19/2024 10:53 AM EDT) Anatomical Region Laterality Modality Cardiac Other 03/19/2024 9:03 AM EDT Narrative 03/19/2024 12:12 PM EDT [address] [place] [address] ? Echocardiogram Report Name: ISA RO ?Study Date: 03/19/2024 09:03 AMBP: 129/68 mmHg ? Patient Location: 4A : 1965 ? Height: 158 cm ? Account: [id number] Age: 59 yrs ? Weight: 57 kg Gender: Female ?BSA: 1.6 m2 Ordering Physician: GANESH NGUYEN Referring Physician: GANESH NGUYEN Performed By: PEREZ Carlos Reason For Study: STEMI involving LAD Exam Location: [facility]. Interpretation Summary Normal left ventricle size with mildly reduced LV function. LV ejection fraction 49%. LAD territory wall motion abnormality, predominantly involving the LV apex. No LV thrombus visualized with echo contrast. Normal right ventricle. No significant valvular abnormalities. Compared with prior echo dated 08/28/23, LV function has now decreased and new wall motion abnormalities. Procedure Complete-[id number]. Image enhancement Definity was used for left [...] Note Destin Ambrosio MD - 03/19/2024 [address] [place] [address] Echocardiogram Report Name: ANNENORMA ISA Vera Study Date: 409:03 AMBP: 129/68 mmHg Patient Location: : 1965 Height: 158 cm Account: [id number] Age: 59 yrs Weight: 57 kg Gender: Female BSA: 1.6 m2 Ordering Physician: GANESH NGUYEN Referring Physician: GANESH NGUYEN Performed By: PEREZ Carlos Reason For Study: STEMI involving LAD Exam Location: [facility]. Interpretation Summary Normal left ventricle size with mildly reduced LV function. LV ejectionfraction 49%. LAD territory wall motion abnormality, predominantly involving the LVapex. No LV thrombus visualized with echo contrast. Normal right ventricle. No significant valvular abnormalities. Compared with prior echo dated 08/28/23, LV function has now decreased andnew wall motion abnormalities. Procedure Complete-[id number]. Image enhancement Definity was used for left [...] Chest One View (03/19/2024 8:37 AM EDT) [employer] WORKSTATION ID [id number] [facility] Anatomical Region Laterality Modality Chest N/A Digital [...] who have questions please contact the health child adolescent care that requested your imaging first. ? [...] patients who have questions please contactthe health child adolescent care that requested your imaging first. Delores Jett MD IMG DX ORDERABLES * Hemoglobin A1c (03/19/2024 5:25 AM EDT) Hemoglobin A1c 5.6 4.3 - 5.6 % [facility] [...] Mellitus, Diabetes Care 2013; 36: Suppl. 1, E78-70 Estimated Average Glucose 114 mg/dL [facility] Blood Venous Draw / Unknown 03/19/2024 5:25 AM EDT 03/19/2024 3:52 PM EDT Narrative Resulting Agency Comment Spec In Lab Horace Hancock MD CHEMISTRY ORDERABLES [facility] [place] [address] * (ABNORMAL) Differential, Automated (03/19/2024 5:25 AM EDT) Neutrophil % 90.0 % [facility] Neutrophil Absolute 16.73(H) 1.70 - 6.10 x10(3)/mc L [facility] Lymph % 5.2 % [facility] Lymphocytes Abs 1.0 0.9 - 3.2 x10(3)/mc L [facility] Monocyte % 4.2 % [facility] Monocyte Abs 0.8 0.3 - 0.9 x10(3)/mc L [facility] Eos % 0.0 % [facility] Eosinophils Abs 0.0 0.0 - 0.4 x10(3)/mc L [facility] Basophil % 0.2 % [facility] Baso Absolute 0.0 0.0 - 0.1 x10(3)/mc L [facility] Immature Gran % 0.40 % [facility] Comment: Immature granulocytes(IG's)percentage and absolute count will include metamyelocytes, myelocytes, and promyelocytes. Blood smears from CBCs yielding IG's will be scanned manually for concordance. If this scan disagrees with the automated IG or if promyelocytes are noted, a manual differential will be performed. Immature Gran Absolute 0.08(H) 0.00 - 0.04 x10(3)/mc L [facility] Blood 03/19/2024 5:25 AM EDT 03/19/2024 5:34 AM EDT Narrative Resulting Agency Comment Spec In Lab Ganesh Nguyen MD HEMATOLOGY ORDERA BLES [facility] [place] [address] * (ABNORMAL) Hemogram (03/19/2024 5:25 AM EDT) White Blood Cell 18.6(H) 4.0 - 9.5 x10(3)/mc L [facility] Red Blood Cell 4.92 4.00 - 5.21 x10(6)/[facility] LABORATORY Hemoglobin 13.7 11.7 - 15.5 g/dL [facility] Hematocrit 40.6 35.7 - 45.8 % [facility] Mean Cell Volume 82.5(L) 82.6 - 94.4 fL [facility] Mean Cell Hemoglobin 27.8 27.1 - 32.0 pg [facility] Mean Cell Hemoglobin Concentration 33.7 31.7 - 35.0 g/dL [facility] Platelet 285 145 - 357 x10(3)/ L [facility] RDW Standard Deviation 41.1 37.0 - 46.0 [facility] LABORATORY RDW coefficient of variation 13.6 11.5 - 14.1 % [facility] Mean Platelet Volume 9.5 7.6 - 12.9 [facility] LABORATORY NRBC% auto 0.0 % [facility] NRBC Absolute 0.000 0.000 - 0.000 x10(3)/ L [facility] Blood 03/19/2024 5:25 AM EDT 03/19/2024 5:34 AM EDT Narrative Resulting Agency Comment Spec In Lab Ganesh Nguyen MD HEMATOLOGY ORDERA SELMAS [facility] [place] [address] * Lipid Panel (Reflex Direct LDL) (03/19/2024 5:25 AM EDT) Cholesterol, Total 324 mg/dL [facility] Comment: Desirable: ? <200 mg/dL Borderline High: 200-239 mg/dL Higher: ?>ya=017 mg/dL Triglyceride 200 mg/dL [facility] Comment: Normal: ?<150 mg/dL Borderline High: 150-199 mg/dL High: ?200-499 mg/dL Very High: ? >os=077 mg/dL HDL Cholesterol 68 mg/dL [facility] Comment: Females: High Risk: <50 mg/dL Males: High Risk: <40 mg/dL LDL Cholesterol 216 mg/dL [facility] Comment: Desirable: ? <100 mg/dL Above Desirable: 100-129 mg/dL Borderline High: 130-159 mg/dL High: ?160-189 mg/dL Very High: ? >nb=100 mg/dL Lipid Interpretation See Note [facility] [...] individuals with atherosclerotic cardiovascular disease (ASCVD)or LDL >sh=660 mg/dL, use a high-intensity statin (40-80 mg [...] MD CHEMISTRY ORDERAB LES [facility] [place] [address] * (ABNORMAL) Troponin (03/19/2024 5:25 AM EDT) Pathologist [facility] Troponin-T, High Sensitivity 1,276(H) <=14 ng/L [facility] Comment: [...] troponin value can be found in the [facility] Test Catalog Troponin - [facility] Test Catalog Reference: Fourth Horatio Definition of Myocardial Infarction. Journal of the [place] [employer] 2018;72:5821-7866 Blood 03/19/2024 5:25 AM EDT 03/19/2024 5:34 AM EDT Narrative Resulting Agency Comment Spec In Lab Ganesh Nguyen MD CHEMISTRY ORDERAB LES Performing Organization Address [facility] Co de Phone Number [facility] [place] [address] * APTT (03/19/2024 5:25 AM EDT) Partial Thromboplastin Time 29 25 - 37 sec [facility] [...] MD HEMATOLOGY ORDERA BLES Performing Organization Address City/[facility]/ZIP Co de Phone Number [facility] [place] [address] * Prothrombin Time (03/19/2024 5:25 AM EDT) Prothrombin Time 10.9 9.4 - 12.5 sec [facility] International Normalization Ratio 1.0 [facility] Comment: An INR [...] MD HEMATOLOGY ORDERA BLES [facility] [place] [address] * (ABNORMAL) Comprehensive metabolic panel (non-fasting) (03/19/2024 5:25 AM EDT) Glucose 181 65 - 199 mg/dL [facility] Comment:Diabetes: >=200 mg/d L plus symptoms Blood Urea Nitrogen 14 8 - 18 mg/dL [facility] [...] 98 - 107 mmol/L [facility] Carbon Dioxide 22 22 - 31 mmol/L [facility] Anion Gap 15 5 - 15 mmol/L [facility] Calcium 8.7 8.5 - 10.5 mg/dL [facility] Protein, Total 7.2 6.1 - 8.0 g/dL [facility] Albumin 4.5 3.2 - 5.2 g/dL [facility] Aspartate Aminotransferase 95(H) 0 - 30 unit/L [facility] Comment:result rechecked-bz Alanine Aminotransferase 31(H) 0 - 30 unit/L [facility] Alkaline Phosphatase 70 35 - 105 unit/L [facility] Bilirubin, Total 0.5 0.2 - 1.3 mg/dL [facility] Est Glomerular Filtration Rate 72 >=60 mL/min/1. 73 m?? [facility] [...] MD CHEMISTRY ORDERAB LES Performing Organization Address City/State/[facility] Co de Phone Number [facility] [place] [address] * EKG 12 Lead (03/19/2024 2:23 AM EDT) Ventricular rate 67 BPM MUSE SYSTEM Atrial Rate 67 BPM MUSE SYSTEM P-R Interval 152 ms MUSE SYSTEM QRS Duration 78 ms MUSE SYSTEM Q-T Interval 500 ms MUSE SYSTEM QTC Calculated (Bezet) 528 ms MUSE SYSTEM Calculated P Belpre 54 degrees MUSE SYSTEM Calculated R Belpre 56 degrees MUSE SYSTEM Calculated T Belpre 31 degrees MUSE SYSTEM INTERPRETATION Normal sinus rhythm Prolonged QT Abnormal ECG No previous ECGs available Confirmed by MD Ambrosio David ([id number]) on 03/23/2024 8:10:32 AM MUSE SYSTEM 03/19/2024 2:23 AM EDT 03/23/2024 8:10 AM EDT Ganesh Nguyen MD ECG ORDERABLES MUSE SYSTEM * (ABNORMAL) Differential, Automated (03/19/2024 2:20 AM EDT) Neutrophil % 89.8 % [facility] Neutrophil Absolute 15.44(H) 1.70 - 6.10 x10(3)/[facility] LABORATORY Lymph % 6.4 % [facility] Lymphocytes Abs 1.1 0.9 - 3.2 x10(3)/[facility] LABORATORY Monocyte % 2.9 % [facility] Monocyte Abs 0.5 0.3 - 0.9 x10(3)/[facility] LABORATORY Eos % 0.1 % [facility] Eosinophils Abs 0.0 0.0 - 0.4 x10(3)/[facility] LABORATORY Basophil % 0.3 % [facility] Baso Absolute 0.0 0.0 - 0.1 x10(3)/[facility]ORATORY Immature Gran % 0.50 % [facility] Comment: Immature granulocytes(IG's)percentage and absolute count will include metamyelocytes, myelocytes, and promyelocytes. Blood smears from CBCs yielding IG's will be scanned manually for concordance. If this scan disagrees with the automated IG or if promyelocytes are noted, a manual differential will be performed. Immature Gran Absolute 0.08(H) 0.00 - 0.04 x10(3)/ L [facility] Blood 03/19/2024 2:20 AM EDT 03/19/2024 2:59 AM EDT Narrative Resulting Agency Comment Spec In Lab Ganesh Nguyen MD HEMATOLOGY ORDERA BLES [facility] [place] [address] * (ABNORMAL) Hemogram (03/19/2024 2:20 AM EDT) [facility] White Blood Cell 17.2(H) 4.0 - 9.5 x10(3)/ L [facility] Red Blood Cell 4.70 4.00 - 5.21 x10(6)/ L [facility] Hemoglobin 13.3 11.7 - 15.5 g/dL [facility] Hematocrit 38.7 35.7 - 45.8 % [facility] Mean Cell Volume 82.3(L) 82.6 - 94.4 fL [facility] Mean Cell Hemoglobin 28.3 27.1 - 32.0 pg [facility] Mean Cell Hemoglobin Concentration 34.4 31.7 - 35.0 g/dL [facility] Platelet 281 145 - 357 x10(3)/mc L [facility] RDW Standard Deviation 41.0 37.0 - 46.0 [facility] RDW coefficient of variation 13.7 11.5 - 14.1 % [facility] Mean Platelet Volume 9.7 7.6 - 12.9 fL [facility] NRBC% auto 0.0 % [facility] NRBC Absolute 0.000 0.000 - 0.000 x10(3)/ L [facility] Blood 03/19/2024 2:20 AM EDT 03/19/2024 2:59 AM EDT Narrative Resulting Agency Comment Spec In Lab Ganesh Nguyen MD HEMATOLOGY ORDERA BLES [facility] [place] [address] * (ABNORMAL) Troponin (03/19/2024 2:20 AM EDT) [facility] Troponin-T, High Sensitivity 960(H) <=14 ng/L [facility] Comment: This [...] troponin value can be found in the [facility] Test Catalog Troponin - [facility] Test Catalog Reference: Fourth Horatio Definition of Myocardial Infarction. Journal of the [place] [employer] 2018;72:0994-2663 Blood 03/19/2024 2:20 AM EDT 03/19/2024 2:59 AM EDT Narrative Resulting Agency Comment Spec In Lab Ganesh Nguyen MD CHEMISTRY ORDERAB LES Performing Organization Address City/State/[facility] Co de Phone Number [facility] [place] [address] * (ABNORMAL) APTT (03/19/2024 2:20 AM EDT) [facility] Partial Thromboplastin Time 123(Criti leiws) 25 - 37 sec [facility] [...] MD HEMATOLOGY ORDERA BLES Performing Organization Address [facility] de Phone Number [facility] [place] [address] * Prothrombin Time (03/19/2024 2:20 AM EDT) Prothrombin Time 11.7 9.4 - 12.5 sec [facility] International Normalization Ratio 1.0 [facility] Comment: An INR [...] MD HEMATOLOGY ORDERA BLES Performing Organization Address [facility] de Phone Number [facility] [place] [address] * (ABNORMAL) Hepatic Function Panel (03/19/2024 2:20 AM EDT) Protein, Total 6.7 6.1 - 8.0 g/dL [facility] Albumin 4.3 3.2 - 5.2 g/dL [facility] Aspartate Aminotransferase 49(H) 0 - 30 unit/L [facility] Alanine Aminotransferase 26 0 - 30 unit/L [facility] Alkaline Phosphatase 67 35 - 105 unit/L [facility] Bilirubin, Total 0.4 0.2 - 1.3 mg/dL [facility] Bilirubin, Direct 0.1 0.0 - 0.3 mg/dL [facility] Blood 03/19/2024 2:20 AM EDT 03/19/2024 2:59 AM EDT Narrative Resulting Agency Comment Spec In Lab Ganesh Ngueyn MD CHEMISTRY ORDERAB LES Performing Organization Address [facility] Co de Phone Number [facility] [place] [address] * (ABNORMAL) pro-Brain Natriuretic Peptide (03/19/2024 2:20 AM EDT) NT-proBNP 529(H) <=124 pg/mL [facility] Blood 03/19/2024 2:20 AM EDT 03/19/2024 2:59 AM EDT Narrative Resulting Agency Comment Spec In Lab Ganesh Nguyen MD CHEMISTRY ORDERAB LES Performing Organization Address [facility] Co de Phone Number [facility] [place] [address] * Phosphorus (03/19/2024 2:20 AM EDT) Phosphorus 3.8 2.5 - 4.5 mg/dL [facility] Blood 03/19/2024 2:20 AM EDT 03/19/2024 2:59 AM EDT Narrative Resulting Agency Comment Spec In Lab Ganesh Nguyen MD CHEMISTRY ORDERAB LES Performing Organization Address [facility] Co de Phone Number [facility] [place] [address] * Magnesium (03/19/2024 2:20 AM EDT) Magnesium 0.71 0.69 - 1.07 mmol/L [facility] Blood 03/19/2024 2:20 AM EDT 03/19/2024 2:59 AM EDT Narrative Resulting Agency Comment Spec In Lab Ganesh Nguyen MD CHEMISTRY ORDERAB LES [facility] [place] [address] * (ABNORMAL) Basic Metabolic Panel (non-fasting) (03/19/2024 2:20 AM EDT) Glucose 160 65 - 199 mg/dL [facility] Comment:Diabetes: >=200 mg/d L plus symptoms Blood Urea Nitrogen 14 8 - 18 mg/dL [facility] [...] 98 - 107 mmol/L [facility] Carbon Dioxide 20(L) 22 - 31 mmol/L [facility] Anion Gap 17(H) 5 - 15 mmol/L [facility] Calcium 8.2(L) 8.5 - 10.5 mg/dL [facility] Est Glomerular Filtration Rate 75 >=60 mL/min/1. 73 m?? [facility] [...] MD CHEMISTRY ORDERAB LES Performing Organization Address City/[facility]/ZIP Co de Phone Number [facility] [place] [address] * (ABNORMAL) Point of Care Blood Gas Historical (03/19/2024 1:41 AM EDT) pH, POC 7.28(Criti lewis) 7.35 - 7.45 [facility] pCO2, POC 40 35 - 45 mmHg [facility] pO2, POC 84(L) 85 - 104 mmHg [facility] Base Excess, POC -8.0(L) -3.0 - 3.0 mmol/L [facility] Bicarbonate, POC 18.6(L) 20.0 - 26.0 mmol/L [facility] Carbon Dioxide, POC 20(L) 22 - 31 mmol/L [facility] Sodium, POC 134(L) 135 - 145 mmol/L [facility] POC Potassium 3.4(L) 3.5 - 5.0 mmol/L [facility] Ionized Calcium, POC 1.09(L) 1.15 - 1.33 mmol/L [facility] POC Hematocrit 38.0 34.0 - 45.0 % [facility] POC Calc Hgb 12.9 11.2 - 15.7 g/dL [facility] Blood 03/19/2024 1:41 AM EDT 03/19/2024 1:41 AM EDT Kathryn Walker MD CHEMISTRY ORDERABL ES Performing Organization Address [facility]/ZIP Co de Phone Number [facility] [place] [address] * CARDIAC CATHETERIZATION (03/19/2024 1:36 AM EDT) Anatomical Region Laterality Modality Other Narrative 03/19/2024 7:19 AM EDT ?[facility] ? Cardiac Catheterization/Intervention Report ? Patient Name: Isa Ro. ? Procedure Date: 03/19/2024 ? A #: [id number] ? Primary Physician: Kirill, Ramo S ? Case #: [id number] ? File Name: [id number] ? Catheterization Order Number: [id number] ? [facility] ? Final Report [employer], [place] ? Patient Name: ? Isa Ro ? ID#: ?[id number] ? : ?1965 ? Procedure Date: ? March 19, 2024 ? Case #: ? [id number] ? Room: ? 6 ? Case Physician: [...] was Emergent. The indication for ?the lab pack chemist visit is ACS less than or equal [...] ?3.5 guiding catheter and a 3.5 Fr Greenlee Eye Mechoopda 20 Mhz using auto 1 ?mm/sec pullback. [...] A premounted 3.00 x 08 mm Alberto Rapides (JAHAIRA) was deployed ? with a maximum inflation pressure of 12 atmospheres. ? Another stent insertion was accomplished through a 6 Fr. EBU ? 3.5 guide. ??A premounted 2.00 x 08 mm [place] Rapides (JAHAIRA) was ? deployed. ? The final [...] administered prior to arrival in the lab pack chemist. ?Recommended anti-platelet/anti-thrombotic regimen: ?Start aspirin 81 mg daily now and continue for indefinitely. ?Start clopidogrel 75 mg daily now and continue for 12 months then stop. ?These recommendations are made at the time of the intervention. Patient ?and provider preferences or a changing clinical situation may require ?modification of this regimen. Consult [facility] Interventional Cardiology for ?questions. ?The 1 year [...] any medical treatment. Consult ?http://tools.acc.org/DAPTriskapp/#!/content/calculator/ or [facility] ?Interventional Cardiology for questions ? Conclusions: ?* [...] Procedure Note Ramo Roy MD - 03/21/2024 [facility] Cardiac Catheterization/Intervention Report Patient Name: Isa Ro Procedure Date: 03/19/2024 A #: [id number] Primary Physician: Ramo Roy Case #: [id number] File Name: [id number] Catheterization Order Number: [id number] [facility] FinalReport [place], [place] Patient Name: Isa Ro ID#:[id number] :1965 Procedure Date: March 19, 2024 Case [...] patientwas designated as ASA Class IV. The [facility] clinical frailty scale is 3: Managing Well. Diagnostic Tests: Prior Coronary Angiography: Prior coronary angiography was performed on 12/15/2014. Electrocardiography: EKG was assessed by ECG. EKG was Abnormal. EKG showed STDeviation >= 0.5 mm and other abnormality. Medications Prior to Procedure: Aspirin. Indications for Diagnostic Cath: The priority of the diagnostic procedure was Emergent. Theindication for the lab pack chemist visit is ACS less than or equal [...] 3.5 guiding catheter and a 3.5 Fr Greenlee Eye Mechoopda 20 Mhz usingauto 1 mm/sec pullback. Imaging [...] priority for the procedure was Emergent.The [facility] indication for the procedure was [...] The lesion was predilated with a 2.50mm [id number] MM balloon with a maximum inflation pressure of 14atmospheres. A premounted 3.00 x 08 mm Alberto Rapides (JAHAIRA) wasdeployed with a maximum inflation pressure of 12 atmospheres. Another stent insertion was accomplished through a 6 Fr.EBU 3.5 guide. A premounted 2.00 x 08 mm Alberto Rapides (JAHAIRA)was deployed. The final outcome was defined [...] administered prior to arrival in the lab pack chemist. Recommended anti-platelet/anti-thrombotic regimen: Start aspirin 81 mg daily now and continue for indefinitely. Start clopidogrel 75 mg daily now and continue for 12 months thenstop. These recommendations are made at the time of the intervention.Patient and provider preferences or a changing clinical situation mayrequire modification of this regimen. Consult [facility] Interventional Cardiologyfor questions. The 1 year bleeding [...] against any medical treatment.Consult http://tools.acc.org/DAPTriskapp/#!/content/calculator/ or [facility] Interventional Cardiology for questions Conclusions: * One [...] pH, POC 7.20(Criti lewis) 7.35 - 7.45 [facility] pCO2, POC 38 35 - 45 mmHg [facility] pO2, POC 74(L) 85 - 104 mmHg [facility] Base Excess, POC -14.0(L) -3.0 - 3.0 mmol/L [facility] Bicarbonate, POC 14.5(L) 20.0 - 26.0 mmol/L [facility] Carbon Dioxide, POC 16(L) 22 - 31 mmol/L [facility] Sodium, POC 116(Critic al) 135 - 145 mmol/L [facility] POC Potassium 3.1(L) 3.5 - 5.0 mmol/L [facility] Ionized Calcium, POC 1.04(L) 1.15 - 1.33 mmol/L [facility] POC Hematocrit 39.0 34.0 - 45.0 % [facility] POC Calc Hgb 13.3 11.2 - 15.7 g/dL [facility] Blood 03/19/2024 1:26 AM EDT 03/19/2024 1:26 AM EDT Kathryn Walker MD CHEMISTRY ORDERABL ES [facility] [place] [place] [address] documented in this encounter Visit Diagnoses Not [...] Routine documented in this encounter Care Teams Water Softener Installer Relationship Specialty Start Date End Date None None PCP - General 03/19/24 documented as of this encounter
[2024-04-20] MEDS: nitroGLYcerin 0.4 MG TAB SL (15:01)
[2024-04-20 15:33] LABS: Troponin I < 50 ng/L (< or =60)
[2024-04-20] MEDS: Metoprolol 12.5 MG TAB PO (16:17)
[2024-04-20] MEDS: Heparin in 0.45% NaCl 25,000 UNIT/250 ML BAG 6.8 UNIT IV (18:24)
[2024-04-20] MEDS: Atorvastatin 40 MG TAB 80 MG PO (18:31)
[2024-04-20] MEDS: Clopidogrel 300 MG TAB PO (18:31)
--- NOTE | 2024-04-20 19:15 | RT.EKG_ITS ---
APPROVED REPORT Exam: Resting ECG Reason for Exam: chest pain Patient Location: E HR:62 bpm ECG Measurements Heart Rate 62 AXIS VA 174 P -3 QRSd 93 QRS -5 QT 414 T 267 QTc 422 Conclusion Sinus rhythm...normal P axis, V-rate 60- 99 Probable left atrial enlargement...P >50mS, <-0.10mV V1 Abnormal T, consider ischemia, diffuse leads...T <-0.20mV, ant/lat/inf sinus normal axis, normal intervals, persistant t wave inversions anterior lateral leads
--- NOTE | 2024-04-20 19:24 | W.EDPROG ---
Date of service: 04/20/24 Time of Service: 19:24 Medical Decision Making Resting comfortably no acute distress. Intermittent mild anterior chest discomfort. Patient started on heparin aspirin Plavix high-dose statin. Discussed case with cardiology team at [facility] who has accepted patient for Thursday. Quality:[facility] Health Related Social Needs: No Data to Display Sign Out Sign Out Data: Sign Out Comment: Chest pain, T wave inversions diffusely. Follow-up with [facility] for recommendations. Serial troponins negative. Recent STEMI 1 month ago with stents. Last updated by Tru Laurent DO at 04/20/24 17:07 Discharge Plan Disposition Patient Disposition: Admit to [facility] Condition: Stable Discharge Details Chief Complaint: Chest Pain Clinical Impression: Chest pain Primary Care Provider: Isa Estrada ED Provider: Skip Hickey Home Meds and New Rx's Prescriptions: No Action alprazolam [Xanax] 0.5 MG tablet 0.5 mg PO prn flying nitroglycerin [Nitrostat] 0.4 MG tablet, sublingual 0.4 mg Buccal ONCE acetaminophen [Tylenol Extra Strength] 500 MG tablet 500 mg PO PRN PRN ibuprofen [Advil] 200 MG tablet 1 tab PO PRN PRN Patient Comments: not taking 06/24/23 Emergen-C 1,000 mg Powder Effervescent In Packet 1 ea PO PRN PRN Home Made Herbal Tinctures 1 dose PO PRN PRN losartan 25 mg tablet 12.5 mg PO DAILY Patient Comments: not taking 06/24/23 omega-3 fatty acids Capsule 1 cap PO DAILY Rx Instructions: unknown dose cholecalciferol (vitamin D3) [Vitamin D3] 25 mcg (1,000 unit) Tablet 25 mcg PO DAILY Rx Instructions: PT unknown dose lidocaine 5 % cream 1 applic topical QID PRNQty: 15 1RF Rx Instructions: Apply to intact skin only and do not use on mucosal membranes rosuvastatin 40 mg tablet 40 mg PO DAILY Patient Comments: TAKE ONE TABLET BY MOUTH EVERY DAY metoprolol succinate 25 mg tablet extended release 24 hr 12.5 mg PO DAILY Patient Comments: TAKE ONE-HALF TABLET BY MOUTH NIGHTLY
--- NOTE | 2024-04-20 20:36 | HPE_ITS ---
Date of service: 04/20/24 Time of Service: 20:36 Assessment and Plan Assessment and plan (1) NSTEMI (non-ST elevated myocardial infarction): Start date: 04/20/24 Status: Acute Assessment and plan: This is a 59-year-old lady with known CAD status post stenting of LAD in 2013 and subsequent occurrence 1 month ago with PTCA and stenting of LAD. He presents today with 3-day history of chest pain in her retrosternal area over the left with exertion such as walking. It was mild and achy and she feels that exertion makes it more pronounced. She did not have relief with nitroglycerin given for chest pain in the ED and continued to have intermittent discomfort as reported by ED provider. She did have new T wave inversions inferior laterally with slightly improved on heparin infusion with normal troponin. Will continue heparin infusion with Plavix and high-dose statin along with metoprolol advancing to blood pressure control awaiting transfer to [facility] with acceptance by Dr. Leo, application support intern at [facility] for transfer within the next 48 hours. She is a full code. (2) Chest pain: Status: Acute Assessment and plan: Atypical nature with chest pain 2/10 persistent and being positional at this time. Patient declined morphine IV and Ativan she requested this for possible anxiety treatment. She refused IV Protonix at this will be given orally. She did not trial Mylanta. She questioned whether this was heartburn but is not affected by eating or drinking and seems more positional and less visceral. Qualifiers: Chest pain type: other chest pain Qualified Code(s): R07.89 - Other chest pain (3) CAD (coronary artery disease): Status: None Assessment and plan: Known CAD with previous interventions since 2013 and more recent intervention a month ago. Patient is on treatment for acute non-STEMI type symptoms though her troponins have remained negative. These will be trended. Transfer to [facility] is as possible for possible recatheterization. Qualifiers: Associated angina: with other forms of angina Coronary Disease- Associated Artery/Lesion type: beaver artery [place] vs. transplanted heart: n ative heart Qualified Code(s): I25.118 - Atherosclerotic heart disease of beaver coronary artery with other forms of angina pectoris (4) HTN (hypertension) with goal to be determined: Status: Acute Assessment and plan: Slightly exacerbated with patient anxious, Ativan if needed and advance metoprolol as tolerated. (5) Hyperlipidemia: Status: Chronic Assessment and plan: Continue high-dose statin. Qualifiers: Hyperlipidemia type: mixed hyperlipidemia Qualified Code(s): E78.2 - Mixed hyperlipidemia History of Present Illness History of Present Illness Chief Complaint: Atypical chest pain with abnormal EKG Narrative: This is a 59-year-old female patient who has a history of previous CAD with non- STEMI in 2014 requiring PTCA and stenting at that time. She also had a recurrent non-STEMI 1 month prior to this presentation which followed and being up on with PTCA and stenting. Both procedures involve the LAD. She presented with a 3-day history of chest discomfort over her left chest which seem to be musculoskeletal in time but also worsened with exertion. It is persistent and not responding to nitroglycerin sublingually in the ED. She stated that today was radiating down her left arm and her left arm feels numb presently. Her pain persists pain at 2/10 but no associated symptoms presently. She has has not to take other medications though I advised we should try to make her comfortable and offered IV morphine for evaluation of pain and also p.o. Ativan which she states has helped her in the past since she does have a history of anxiety. She was able to these items and we will also treat possible heartburn with Mylanta and patient being placed on Protonix. She did have an EKG with anterolateral deep T wave inversions which is new and her troponins have been negative. She was started on heparin which improved the T wave inversions but they have not resolved. Troponins will be trended and she was admitted on IV heparin with loading dose of Plavix and aspirin with high-dose statin at the advice of [facility] cardiology. Dr. Leo has accepted the patient in transfer within the next 48 hours hoping that a bed will be available. If she worsens we will call [facility] for further transfer. She is a full code. Review of Systems Narrative: 13 point review of systems otherwise unrevealing or stable. PFSH All Active Problems NSTEMI (non-ST elevated myocardial infarction) (Acute) Chest pain (Acute) Abdominal bloating (Acute) RLQ abdominal pain (Acute) Recurrent epistaxis (Acute) ASCVD (arteriosclerotic cardiovascular disease) (Acute) Right flank pain (Acute) Hyperlipidemia (Chronic) GERD (gastroesophageal reflux disease) (Chronic) HTN (hypertension) with goal to be determined (Acute) Rash (Acute) Neck pain (Acute) Duodenitis (Acute) Chronic fatigue and malaise (Acute) Sciatica, unspecified side (Acute) Headache, post-traumatic (Acute) Pain, joint, shoulder, right (Acute) Migraine aura without headache (Chronic) Migraine headache with aura (Chronic) Disorder of vision (Acute 11/28/13) Difficulty speaking (Acute 11/28/13) Blurring of visual image (Acute 11/28/13) Change in bowel habits (Acute) Medical History Family history of colon cancer History of placement of stent in LAD coronary artery 03/2014 [facility] No-show for appointment Preventative health care Constipation Hypertension Abdominal pain Asthma, exercise induced Tick bite Hypothyroidism Dysphagia Surgical History H/O colonoscopy (06/18/18) vini Burrows, repeat in 10 years History of esophagogastroduodenoscopy (EGD) (06/18/18) vini Burrows, repeat PRN History of History of coronary artery stent placement Family History Father Glioblastoma Hyperlipidemia Heart disease Paternal Grandmother Glioblastoma Mother Hypertension Heart disease Social History Smoking/Tobacco Use Status: Former Tobacco Use Quit Date: 09/14/03 Tobacco: How many years used: 10 Smoking risk assessment performed?: Yes Alcohol Intake: current Alcohol Intake frequency: 0-2 drinks per day Alcohol type: beer and hard liquor Drug use: Occasionally Substance use type: marijuana Household members: family Housing: house Number of Children: 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 Meds Allergies and Home Medications Allergies Allergy/AdvReac Type Severity Reaction Status Date / Time hydrochlorothiazide Allergy unknown Verified 04/20/24 11:34 lisinopril Allergy unknown Verified 04/20/24 11:34 dust Allergy Mild Itching Uncoded 04/20/24 11:34 mold Allergy Other (See Uncoded 04/20/24 11:34 Comment) Home Medications ?Medication ?Instructions ?Recorded ?Confirmed ?Type acetaminophen 500 mg tablet 500 mg PO PRN PRN 07/27/15 04/20/24 History (Tylenol Extra Strength) ibuprofen 200 mg tablet (Advil) 1 tab PO PRN PRN 08/26/15 04/20/24 History alprazolam 0.5 mg tablet (Xanax) 0.5 mg PO prn flying 05/11/18 04/20/24 History nitroglycerin 0.4 mg sublingual 0.4 mg buccal ONCE 05/11/18 04/20/24 History tablet (Nitrostat) ascorbic acid 1,000 1 ea PO PRN PRN 06/15/18 04/20/24 History [id number] powder effervescent pack (Emergen-C) Home Made Herbal Tinctures 1 dose PO PRN PRN 07/21/19 04/20/24 History losartan 25 mg tablet 12.5 mg PO DAILY 06/05/21 09/29/23 History cholecalciferol (vitamin D3) 25 25 mcg PO DAILY 06/17/21 04/20/24 History mcg (1,000 unit) tablet (Vitamin D3) omega-3 fatty acids 1 cap PO DAILY 06/17/21 04/20/24 History lidocaine 5 % topical cream 1 applic topical QID PRN #15 grams 09/19/23 04/20/24 Rx metoprolol succinate 25 mg 12.5 mg PO DAILY 04/20/24 04/20/24 History tablet,extended release 24 hr rosuvastatin 40 mg tablet 40 mg PO DAILY 04/20/24 04/20/24 History Exam Narrative Exam Narrative: General: Patient appears older than stated age, pleasant affect and anxious with slowed speech and monotonous tone. She is alert and oriented x 3. She is in no acute distress. HEENT: Normocephalic, positive features, eyes with pupils equal and reactive to light symmetrically, extraocular movement intact and sclera anicteric. Oropharynx with moist mucosa and segmentation. Neck: Supple without JVD. Back: Normal posture without CVA tenderness. Lungs: Aeration is clear to auscultation and percussion. No localized rales or rhonchi. Breast: Exam deferred. Heart: Regular rate rhythm with no appreciable murmur or gallop. Abdomen: Slightly obese contour, soft and nontender to palpation with no focalizing tenderness or guarding. No rebound. Bowel sounds positive all quadrants. No palpable hepatosplenomegaly. Genitalia/rectal: Exam deferred. Extremities: Without clubbing, cyanosis or pitting edema. Good capillary refill. Skin: Normal color, warm and dry. Neuro: Cranial nerves II through XII gross intact, no focal motor deficits and no tremor. Psych: Flattened, anxious affect with patient ruminating over somatic symptoms, depressed mood. No normal thought processes. Remote and recent memory intact. Results Imaging Imaging Studies: EXAM: XR PORTABLE CHEST AP CLINICAL HISTORY: sob. TECHNIQUE: 2D digital imaging was performed. COMPARISON: CR XR CHEST 2V PA LATERAL from 06/17/2021 FINDINGS: Single AP portable view. Heart size is upper normal. The mediastinum is not widened. Lungs are clear. No infiltrates nor obvious pleural effusions. IMPRESSION: No acute pulmonary findings on this single AP portable view of the chest. Labs 04/20/24 11:30 04/20/24 11:30 Labs: Laboratory Results - last 24 hr 04/20/24 04/20/24 11:30 14:40 WBC 8.56 RBC 4.73 Hgb 12.9 Hct 40.3 MCV 85 MCH 27.3 MCHC 32.0 RDW 13.1 Plt Count 242 MPV 9.6 Immature Gran % 0.5 Neutrophils % 69.5 Lymphocytes % 20.3 Monocytes % 6.7 Eosinophils % 2.5 Basophils % 0.5 Nucleated RBC % 0.0 Absolute Neutrophils 5.96 Absolute Lymphocytes 1.74 Absolute Monocytes 0.57 Absolute Eosinophils 0.21 Absolute Basophils 0.04 PT 10.1 INR 1.0 APTT 25.0 Sodium 142 Potassium 4.1 Chloride 105 Carbon Dioxide 27.8 Anion Gap 9.2 BUN 14 Creatinine 0.9 Est GFR (CKD-EPI 2020) 73.19 Glucose 98 Calcium 9.3 Magnesium 2.1 Total Bilirubin 0.38 AST 13 L ALT 29 Alkaline Phosphatase 77 Troponin I < 50 < 50 NT-Pro-B Natriuret Pep 1278 H Total Protein 7.3 Albumin 3.8 Last Vital Signs Temp 36.6 C 04/20/24 11:18 Pulse 59 L 04/20/24 15:01 Resp 13 04/20/24 15:01 BP 137/58 L 04/20/24 15:01 Pulse Ox 97 04/20/24 15:01 Time Spent Time spent with Patient: >75 minutes Time was spent: preparing to see the patient(eg.review tests), obtaining and/or reviewing separately otained hiistory, referring, communicating with other health lawn care technician, indepentently interpreting results and care coordination
--- OUTSIDE RECORDS SUMMARY | 2024-04-20 23:28 | XMS_ITS | Encounter Summary ---
Author Organization [facility] Address [address] [place] [address] Care Team Providers Care Punchboard Filling Machine Operator Name Role Phone Pretty Avery MD Primary Care Provider [phone] Encounter Details Date Type Department Care Team (Late st Contact Info) Description 06/24/2023 Lab Requisition [facility] Pathology & [place] [address] Outr Resulting Lab, Provider Social History Tobacco [...] Negative Negative 06/25/2023 11:00 EDT [facility] Blood VENOUS BLOOD / Unknown 06/24/2023 9:02 EDT 06/24/2023 17:06 EDT Provider Outr Resulting Lab IMMUNOLOGY A ND SEROLOGY ORDERABLES [facility] [address] [place] [address] documented in this encounter Visit Diagnoses Not on filedocumented in this encounter Care Teams Punchboard Filling Machine Operator Relationship Specialty Start Date End Date Pretty Avery MD [address] [place] [address] PCP - General 06/05/10 documented as of this encounter
--- OUTSIDE RECORDS SUMMARY | 2024-04-20 23:28 | XMS_ITS | Encounter Summary ---
Author Organization [facility] Address [address] [place] [address] Care Team Providers Care Product Support Representative Name Role Phone Pretty Avery MD Primary Care Provider [phone] Encounter Details Date Type Department Care Team (Latest Contact Info) Description 04/08/2018 9:44 EDT - 04/08/2018 23:59 EDT Hospital Encounter [facility] [address] [place] [address] Unknown, Provider, Discharge Disposition: Home or Self [...] in this encounter Care Teams Product Support Representative Relationship Specialty Start Date End Date Pretty Avery MD [address] [place] [address] PCP - General 06/05/10 documented as of this encounter
--- OUTSIDE RECORDS SUMMARY | 2024-04-20 23:28 | XMS_ITS | Encounter Summary ---
Author Organization [facility] Address [address] [place] [address] Care Team Providers Care Guest Relation Officer Name Role Phone Pretty Avery MD Primary Care Provider [phone] Encounter Details Date Type Department Care Team (Late st Contact Info) Description 07/26/2021 Lab Requisition [facility] Pathology & [place] [address] Outr Resulting Lab, Provider Social History Tobacco [...] Lyme Ab Negative Negative 07/29/2021 9:57 EST [facility] Blood VENOUS BLOOD / Unknown 07/26/2021 10:55 EST 07/26/2021 21:29 EST Provider Outr Resulting Lab IMMUNOLOGY A ND SEROLOGY ORDERABLES Performing Organization Address City/State/[facility] Co de Phone Number [facility] [address] [place] [address] documented in this encounter Visit Diagnoses Not on filedocumented in this encounter Care Teams Guest Relation Officer Relationship Specialty Start Date End Date Pretty Avery MD [address] [place] [address] PCP - General 06/05/10 documented as of this encounter
--- OUTSIDE RECORDS SUMMARY | 2024-04-20 23:28 | XMS_ITS | Encounter Summary ---
Author Organization [facility] Address [address] [place] [address] Care Team Providers Care Last Model Department Supervisor Name Role Phone Pretty Avery MD Primary Care Provider [phone] Encounter Details Date Type Department Care Team (Late st Contact Info) Description 02/15/2020 Lab Requisition [facility] Pathology & Laboratory Medicine - [address] [address] Outr Resulting Lab, Provider Social History Tobacco [...] - BROAD COVID TEST (02/15/2020 13:38 EDT) [facility] COVID-19 rt-PCR Result NEGATIVE Negative 02/17/2020 10:45 EDT [facility] Comment: 2019-novel Coronavirus (2019-nCoV) not [...] in accordance with CLIA regulations, [employer] (CAP) guidelines (Dec 01, 2019), and FDA guidance (Nov 12, 2019). This test is only for use under the Food and Drug Administration's Emergency Use Authorization. Swab ENTIRE NASOPHARYNX / Unknown 02/15/2020 13:38 EDT 02/15/2020 21:00 EDT Provider Outr Resulting Lab MICROBIOLOGY - GENERAL ORDERABLES [facility] [place] * COVID-19 TESTING (02/15/2020 13:38 EDT) COVID-19 rt-PCR Result NEGATIVE Negative 02/17/2020 12:54 EDT [facility] Comment: 2019-novel Coronavirus (2019-nCoV) not [...] in accordance with CLIA regulations, [employer] (CAP) guidelines (Dec 01, 2019), and FDA guidance (Nov 12, 2019). This test is only for use under the Food and Drug Administration's Emergency Use Authorization. Performing Lab [employer] 02/17/2020 12:54 EDT [facility] Swab ENTIRE NASOPHARYNX / Unknown 02/15/2020 13:38 EDT 02/15/2020 21:00 EDT Provider Outr Resulting Lab MICROBIOLOGY - GENERAL ORDERABLES [facility] [address] [place] [address] [facility] [place], [place] documented in this encounter Visit Diagnoses Not on filedocumented in this encounter Care Teams Last Model Department Supervisor Relationship Specialty Start Date End Date Pretty Avery MD [address] [place] [address] PCP - General 06/05/10 documented as of this encounter
--- OUTSIDE RECORDS SUMMARY | 2024-04-20 23:28 | XMS_ITS | Encounter Summary ---
Author Organization [facility] Address [address] [place] [address] Care Team Providers Care Cook Frozen Dessert Name Role Phone Pretty Avery MD Primary Care Provider [phone] Encounter Details Date Type Department Care Team (Late st Contact Info) Description 04/09/2018 Historical Results Only [facility] - Main [address] [address] Ganesh Philip MD [address] [place] [phone] Social History Tobacco Use Types Packs/Day [...] & BLOOD GAS ORDERABLES Performing Organization Address City/[facility]/ZIP Co de Phone Number [place] [...] on filedocumented in this encounter Care Teams Cook Frozen Dessert Relationship Specialty Start Date End Date Pretty Avery MD [address] [place] [address] PCP - General 06/05/10 documented as of this encounter
--- OUTSIDE RECORDS SUMMARY | 2024-04-20 23:28 | XMS_ITS | Encounter Summary ---
Author Organization [facility] Address [address] [place] [address] Care Team Providers Care Senior Manager Creative Services Name Role Phone Pretty Avery MD Primary Care Provider Encounter Details Date Type Department Care Team (Latest Contact Info) Description 06/18/2018 9:36 EDT - 06/18/2018 23:59 EDT Hospital Encounter [facility] - [address] [address] Unknown, Provider, Discharge Disposition: Home or Self [...] filedocumented in this encounter Care Teams Senior Manager Creative Services Relationship Specialty Start Date End Date Pretty Avery MD [address] [place] [address] PCP - General 06/05/10 documented as of this encounter
--- OUTSIDE RECORDS SUMMARY | 2024-04-20 23:28 | XMS_ITS | Encounter Summary ---
Author Organization [facility] Address [address] [place] [address] Care Team Providers Care Butcher Supervisor Name Role Phone Pretty Avery MD Primary Care Provider [phone] Encounter Details Date Type Department Care Team (Late st Contact Info) Description 04/08/2018 Historical Results Only [facility] Radiology Results [address] [place] [address] Wesley Trinh MD [address] [place] [address] Social History Tobacco Use Types [...] * TROPONIN I (04/08/2018 20:12 EDT) Pathologist [facility] Troponin I (ng/mL) <0.012 0.000 - 0.034 [...] MD ? Transcribed Date/Time: 04/08/2018 (1402) ? Pill Maker: ? Printed Date/Time: 03/04/2019 (3956) ? PAGE 1 ? Signed Report ? [...] Wesley Trinh MD Transcribed Date/Time: 04/08/2018 (1402) Pill Maker: Printed Date/Time: 03/04/2019 (0937) PAGE 1 Signed Report Wesley Trinh MD IMG DIAGNOSTIC I MAGING ORDERABLES * MAGNESIUM (04/08/2018 12:24 EDT) Magnesium 1.70 1.7 - 2.8 mg/dL 04/08/2018 12:48 EDT [facility] 04/08/2018 12:2 4 EDT 04/08/2018 12:30 EDT Wesley Trinh MD CHEMISTRY & BLOO D GAS ORDERABLES [facility] * (ABNORMAL) COMPREHENSIVE METABOLIC PANEL (CMP) (04/08/2018 12:24 EDT) Pathologist [facility] Albumin % 4.4 3.4 - 4.9 g/dL 04/08/2018 12:48 [facility] ALKALINE PHOSPHATASE - [facility] 75 38 - 126 U/L 04/08/2018 12:48 [facility] BILIRUBIN TOTAL 0.4 0.2 - 1.3 mg/dL 04/08/2018 12:48 [facility] BUN - [facility] 21 10 - 26 mg/dL 04/08/2018 12:48 [facility] CALCIUM - [facility] 9.3 8.5 - 10.5 mg/dL 04/08/2018 12:48 [facility] Chloride 104 96 - 110 mmol/L 04/08/2018 12:48 [facility] CO2 Total 23 22 - 32 mEq/L 04/08/2018 12:48 [facility] CREATININE 0.85 0.52 - 1.04 mg/dL 04/08/2018 12:48 [facility] eGFR >60 04/08/2018 12:48 [facility] Comment: Chronic renal impairment is defined as GFR <60 Multiply result by 1.210 for patients. eGFR calculated using the IDMS-traceable MDRD Study Equation. ??(effective 07/17/2014) Anion Gap 11 0 - 18 04/08/2018 12:48 EDT [facility] GLUCOSE - [facility] 103(H) 70 - 100 mg/dL 04/08/2018 12:48 EDT [facility] Potassium 3.8 3.5 - 5.0 mEq/L 04/08/2018 12:48 EDT [facility] Sodium 138 136 - 145 mEq/L 04/08/2018 12:48 EDT [facility] TOTAL PROTEIN - [facility] 7.1 6.2 - 8.2 gm/dL 04/08/2018 12:48 EDT [facility] SGOT/AST - [facility] 20 14 - 36 U/L 04/08/2018 12:48 T [facility] SGPT/ALT - [facility] 36 9 - 52 U/L 8 12:48 EDT [facility] 04/08/2018 12:2 4 EDT 04/08/2018 12:30 EDT Wesley Trinh MD CHEMISTRY & BLOO D GAS ORDERABLES Performing Organization Address [facility]/ZIP Co de Phone Number [facility] 5.55 1.7 - 7.0 10e3/ul 04/08/2018 12:36 [facility] BASO # - [facility] 0.02 0.0 - 0.3 10e3/uL 04/08/2018 12:36 [facility] BASO % - [facility] 0 0 - 2 % 04/08/2018 12:36 [facility] EOS # - [facility] 0.18 0.05 - 0.5 10e3/uL 04/08/2018 12:36 [facility] EOS % - [facility] 2 0 - 5 % 04/08/2018 12:36 [facility] GRAN % - [facility] 65 40 - 80 % 04/08/2018 12:36 [facility] HEMATOCRIT - [facility] 39.7 34.0 - 47.0 % 04/08/2018 12:36 [facility] HEMOGLOBIN - [facility] 13.5 11.2 - 15.7 g/dl 04/08/2018 12:36 [facility] IG# - [facility] 0.02 0 - 0.07 10e3/uL 04/08/2018 12:36 [facility] IG% - [facility] 0.2 0 - 0.9 % 04/08/2018 12:36 [facility] LYMPH # - [facility] 2.22 0.9 - 2.9 10e3/uL 04/08/2018 12:36 [facility] LYMPH% - [facility] 26 20 - 40 % 04/08/2018 12:36 [facility] MEAN CORPUSCULAR HGB - [facility] 28.2 26 - 34 pg 04/08/2018 12:36 [facility] MEAN CORPUSCULAR HGB CONC - [facility] 34.0 31 - 36 g/dL 04/08/2018 12:36 [facility] MEAN CELL VOLUME - [facility] 82.9 77 - 100 fl 04/08/2018 12:36 [facility] MONO # - [facility] 0.60 0.3 - 0.9 10e3/uL 04/08/2018 12:36 EDT [facility] MONO% - [facility] 7 0 - 12 % 04/08/2018 12:36 EDT [facility] PLATELET COUNT 252 150 - 400 10e3/ul 04/08/2018 12:36 EDT [facility] RED BLOOD COUNT - [facility] 4.79 3.8 - 5.2 10e6/ul 04/08/2018 12:36 EDT [facility] RED CELL DISTRI WIDTH - [facility] 14.1 11.8 - 15.6 % 04/08/2018 12:36 EDT [facility] WHITE BLOOD COUNT - [facility] 8.6 3.5 - 10.5 10e3/ul 04/08/2018 12:36 EDT [facility] 04/08/2018 12:2 4 EDT 04/08/2018 12:30 EDT Wesley Trinh MD HEMATOLOGY & PF4 ORDERABLES [facility] documented in this encounter Visit Diagnoses Not on filedocumented in this encounter Care Teams Butcher Supervisor Relationship Specialty Start Date End Date Pretty Avery MD [address] [place] [address] PCP - General 06/05/10 documented as of this encounter
--- OUTSIDE RECORDS SUMMARY | 2024-04-20 23:28 | XMS_ITS | Encounter Summary ---
Author Organization [facility] Address [address] [place] [address] Care Team Providers Care Stock Buyer Name Role Phone Pretty Avery MD Primary Care Provider [phone] Encounter Details Date Type Department Care Team (Late st Contact Info) Description 08/23/[address] [facility] Pathology & [place] [address] Outr Resulting Lab, Provider Social History Tobacco [...] rt-PCR Result NEGATIVE Negative 08/25/2020 8:37 EST [facility] Comment: 2019-novel Coronavirus (2019-nCoV) [...] in accordance with CLIA regulations, [employer] [place] [employer] (CAP) guidelines (Dec 01, 2019), and FDA guidance (Nov 12, 2019). This test is only for use under the Food and Drug Administration's Emergency Use Authorization. Swab ENTIRE NASOPHARYNX / Unknown 08/22/2020 13:10 EST 08/23/2020 15:58 EST Provider Outr Resulting Lab MICROBIOLOGY - GENERAL ORDERABLES [facility] [place], [place] * COVID-19 TESTING (08/22/2020 13:10 EST) COVID-19 rt-PCR Result NEGATIVE Negative 08/25/2020 10:01 EST [facility] Comment: 2019-novel Coronavirus (2019-nCoV) [...] in accordance with CLIA regulations, [employer] [place] [employer] (CAP) guidelines (Dec 01, 2019), and FDA guidance (Nov 12, 2019). This test is only for use under the Food and Drug Administration's Emergency Use Authorization. Performing Lab [facility] 08/25/2020 10:01 EST [facility] Swab 08/22/2020 13:1 0 EST 08/23/2020 15:58 EST Provider Outr Resulting Lab MICROBIOLOGY - GENERAL ORDERABLES [facility] [address] [place] [address] [facility] [place] documented in this encounter Visit Diagnoses Not on filedocumented in this encounter Care Teams Stock Buyer Relationship Specialty Start Date End Date Pretty Avery MD [address] [place] [address] PCP - General 06/05/10 documented as of this encounter
--- OUTSIDE RECORDS SUMMARY | 2024-04-20 23:28 | XMS_ITS | Encounter Summary ---
Author Organization [facility] Address [address] [place] [address] Care Team Providers Care Pocket Builder Name Role Phone Pretty Avery MD Primary Care Provider [phone] Encounter Details Date Type Department Care Team (Latest Contact Info) Description 09/11/2021 Lab Requisition [facility] Pathology & Laboratory Medicine - [address] [address] Rosalba Archibald, SOLE ASSESSOR [address] [address] Encounter for general adult medical examination without [...] types, PCR Negative Negative 09/20/2021 15:45 EST [facility] Comment:No E6 or E7 mRNA is detected from HPV types 16,18,31,33,35,39,45,51,52,56,58,59,66, and 68 by director property mediated amplification. Papanicolaou smear specimen (specimen) CERVIX UTERI STRUCTURE / Unknown 09/10/2021 9:15 EST 09/19/2021 14:21 EST Rosalba Archibald APRN MICROBIOLOGY - GE NERAL ORDERABLES [facility] [address] [place] [address] * PAP TEST (09/10/2021 9:15 EST) Specimens A. Cervix and/or Endocervix , ThinPrep Imaging System with Manual Evaluation 09/20/2021 15:45 EST [facility] Specimen Adequacy Satisfactory for Evaluation - transformation zone component present 09/20/2021 15:45 EST [facility] General Categorization Epithelial Cell Abnormality 09/20/2021 15:45 EST [facility] Descriptive Diagnosis Squamous Cell Abnormality - Atypical squamous cells, undetermined significance (ASC-US). 09/20/2021 15:45 EST [facility] Educational Comments [facility] recommends following ASCCP's 2012 Updated Consensus Guidelines for the Management of Abnormal Cervical Cancer Screening Tests and Cancer Precursors (JLGTD, 2013; 17(5):S1-S27). Consensus guidelines are available online at www.asccp.org. 09/20/2021 15:45 [facility] Attestation By the signature below, the attending physician certifies that they have personally conducted a gross and/or microscopic examination of the described specimens and rendered or confirmed the above diagnosis. 09/20/2021 15:45 [facility] at 1545 Clinical History See below 09/20/19 15:45 [facility] HPV The result for the Human Papillomavirus (HPV) Detection-High Risk Types is Negative. No E6 or E7 mRNA is detected from HPV types 16,18,31,33,35,3 9,45,51,52,56,58 ,59,66, and 68 by director property mediated amplification.Te sting was performed on specimen [id number] and was resulted on 09/20/2021 1543 EST by CARMEN, LAB INSTRUMENT RESULTS IN 09/20/2021 15:45 [facility] Performing Lab [facility] 09/20/2021 15:45 [facility] Scanned Images 09/20/2021 15:45 [facility] Papanicolaou smear specimen (specimen) CERVIX UTERI STRUCTURE / Unknown 09/10/2021 9:15 EST 09/11/2021 9:41 EST Rosalba Archibald APRN PATHOLOGY ORDERAB LES [facility] [address] [place] [address] documented in this encounter Visit Diagnoses Diagnosis Encounter for general adult medical examination without abnormal findings Unspecified general medical examination Encounter for screening for malignant neoplasm of cervix Screening for malignant neoplasm of the cervix Encounter for gynecological examination (general) (routine) without abnormal findings documented in this encounter Care Teams Pocket Builder Relationship Specialty Start Date End Date Pretty Avery MD [address] [place] [address] PCP - General 06/05/10 documented as of this encounter
--- OUTSIDE RECORDS SUMMARY | 2024-04-20 23:28 | XMS_ITS | Clinical Summary ---
Author Organization [facility] Address [address] [place] [address] Care Team Providers Care Program Engagement Director Name Role Phone Pretty Avery MD Primary Care Provider [phone] Allergies No known active allergies Medications Medication [...] Date NSTEMI (non-ST elevated myocardial infarction) ( [facility]) 03/30/2014 Surgical History Surgery Date [...] Advance Directives For more information, please contact: [phone] * Full Code (Latest Code Status on File) Date Activated Date Inactivated Comments 12/15/2014 9:53 12/15/2014 18:00 Question Answer Comments Reason for decision includes: Full code consistent with overall plan of care Who participated in the discussion? Patient * Full Code Date Activated Date Inactivated Comments 03/30/2014 20:42 04/01/2014 17:36 Care Teams Program Engagement Director Relationship Specialty Start Date End Date Pretty Avery MD [address] [place] [address] [facility] - General 06/05/10
--- OUTSIDE RECORDS SUMMARY | 2024-04-20 23:28 | XMS_ITS | Referral Summary ---
Author Organization [facility] Address [address] [place] [address] Care Team Providers Care Operations Research Manager Name Role Phone Pretty Avery MD Primary Care Provider [phone] Allergies No known active allergies Medications Medication [...] Date NSTEMI (non-ST elevated myocardial infarction) ( [facility]) 03/30/2014 Social History Tobacco Use Types Packs/Day [...] Advance Directives For more information, please contact: [phone] * Full Code (Latest Code Status on File) Date Activated Date Inactivated Comments 12/15/2014 9:53 12/15/2014 18:00 Question Answer Comments Reason for decision includes: Full code consistent with overall plan of care Who participated in the discussion? Patient * Full Code Date Activated Date Inactivated Comments 03/30/2014 20:42 04/01/2014 17:36 Care Teams Operations Research Manager Relationship Specialty Start Date End Date Pretty Avery MD [address] [place] [address] PCP - General 06/05/10
--- OUTSIDE RECORDS SUMMARY | 2024-04-20 23:28 | XMS_ITS | Encounter Summary ---
Author Organization [facility] Address [address] [place] [address] Care Team Providers Care Food Preservation Scientist Name Role Phone Pretty Avery MD Primary Care Provider [phone] Encounter Details Date Type Department Care Team (Late st Contact Info) Description 06/18/2018 Results Only [facility] [phone] Marietta Mauricio, DO [address] [place] [address] Social History Tobacco Use Types [...] ? EZEQUIEL THOMAS ? Accession #: ? [id number] ? : ? 1965 (Age: 53) ??F [...] [facility] [address] [place] [address] documented in this encounter Visit Diagnoses Not on filedocumented in this encounter Care Teams Food Preservation Scientist Relationship Specialty Start Date End Date Pretty Avery MD [address] [place] [address] PCP - General 06/05/10 documented as of this encounter
--- OUTSIDE RECORDS SUMMARY | 2024-04-20 23:28 | XMS_ITS | Encounter Summary ---
Author Organization [facility] Address [address] [place] [address] Care Team Providers Care Inshore Undersea Warfare Officer Name Role Phone Pretty Avery MD Primary Care Provider [phone] Reason for Visit * Reason Onset Date Comments Post-op Problem 12/17/2014 Encounter Details Date Type Department Care Team (Late st Contact Info) Description 12/17/2014 Telephone [facility] Cardiology - [address] [place], [place] [id number] Alex Freed, [address] [address] Post-op Problem Social History Tobacco [...] Encounter - Alex Freed DO - 12/17/2014 5870 EDT Isa called on 12/16/14 with complaints [...] at 18:00. Alex Freed DO 12/17/2014 11:53 Shake Maker documented in this encounter Plan of Treatment Not on file documented as of this encounter Visit Diagnoses Not on filedocumented in this encounter Care Teams Inshore Undersea Warfare Officer Relationship Specialty Start Date End Date Pretty Avery MD [address] [place] [address] PCP - General 06/05/10 documented as of this encounter
--- OUTSIDE RECORDS SUMMARY | 2024-04-20 23:28 | XMS_ITS | Encounter Summary ---
Author Organization [facility] Address [address] [place] [address] Care Team Providers Care Inspector Packer Glass Container Name Role Phone Pretty Avery MD Primary Care Provider [phone] Encounter Details Date Type Department Care Team (Late st Contact Info) Description 03/07/2022 Lab Requisition [facility] Pathology & Laboratory Medicine - [address] [address] Outr Resulting Lab, Provider Social History Tobacco [...] MICROBIOLOGY - GENERAL ORDERABLES Performing Organization Address City/[facility]/ZIP Co de Phone Number [facility] [address] [place] [address] * COVID-19 TESTING (03/06/2022 16:00 EDT) COVID-19 rt-PCR Result Negative Negative 03/08/2022 12:05 EDT [facility] Comment: This test has [...] performed using the camille SARS-CoV-2 assay ([employer] on the Camille 6800 System Performing Lab [place] [address] [facility] 03/08/2022 12:05 EDT [facility] Swab 03/06/2022 16:0 0 EDT 03/07/2022 22:03 EDT Provider Outr Resulting Lab MICROBIOLOGY - GENERAL ORDERABLES Performing Organization Address City/[facility]/ZIP Co de Phone Number [facility] [address] [place] [address] documented in this encounter Visit Diagnoses Not on filedocumented in this encounter Care Teams Inspector Packer Glass Container Relationship Specialty Start Date End Date Pretty Avery MD [address] [place] [phone] PCP - General 06/05/10 documented as of this encounter
--- OUTSIDE RECORDS SUMMARY | 2024-04-20 23:28 | XMS_ITS | Encounter Summary ---
Author Organization [facility] Address [address] [place] [address] Care Team Providers Care Line Maintainer Section Name Role Phone Pretty Avery MD Primary Care Provider [phone] Encounter Details Date Type Department Care Team (Latest Contact Info) Description 12/05/2015 12:19 EDT - 12/05/2015 23:59 EDT Hospital Encounter [address] [address] Unknown, Provider, Discharge Disposition: Home or Self [...] on filedocumented in this encounter Care Teams Line Maintainer Section Relationship Specialty Start Date End Date Pretty Avery MD [address] [place] [address] PCP - General 06/05/10 documented as of this encounter
--- OUTSIDE RECORDS SUMMARY | 2024-04-20 23:28 | XMS_ITS | Encounter Summary ---
Author Organization [facility] Address [address] [place] [address] Care Team Providers Care Natural Gas Inspector Name Role Phone Pretty Avery MD Primary Care Provider [phone] Encounter Details Date Type Department Care Team (Late st Contact Info) Description 12/15/2014 9:30 EDT - 12/15/2014 15:15 EDT Hospital Encounter [facility] Cardiovascular Unit [address] [place] [address] Manpreet Naqvi MD [address] [place] [address] [phone] Dilip Mahajan MD [address] [facility] [address] [place] [phone] Discharge Disposition: Home or Self Care Social [...] was performed by Dr. Mahajan. Phone # [phone] You have had a Cardiovascular Catheterization performed [...] 12/13/14. Will contact pt today to reschedule. laboratory mechanic helper notified. 12/13/14 10:00, pt rescheduled to Thursday12/15/14. [...] JAHAIRA. * Michaelle Ellsworth, RN - 12/12/2014 3800 EDT Precardiac Cath Nursing Checklist Recent Labs: Lab Results Component Value Date BUN 10 04/01/2014 CREATININE 0.69 04/01/2014 HGB 12.6 04/01/2014 CALCGFR >60 04/01/2014 Hgt: Height: 157.5 cm (62) Wgt: Weight : 54.205 kg (119 lb 8 oz) Allergies: No Known Allergies Local Pharmacy [phone] [id number] Cardiac History: Stress Test? No Reason for Cath: chest pain, hx of cad Anginal equivalent:: Cardiac Procedures: Previous PCI done at: [facility] Stent Type/Size: 03/31/14 2.5 x 12 resolute stent prox lad Cardiac surgery: no Medical/Surgical History : Patient has a past medical history of HTN (hypertension); HLD (hyperlipidemia); Chest pain; CAD (coronary artery disease); Family history of heart disease; and Hx of non-ST elevation myocardial infarction (NSTEMI). Patient has past surgical history that includes section. Chronic Risk Factors: HTN, HLD, Previous [place] and Previous PCI Smoking and Alcohol intake: [...] instructed to register on the 3rd floor [facility]. Transportation Issues: Patient/family instructed that they will need a designated gravel truck driver if they are discharged on the dayof the procedure. Medications: Medication list: Patient/family instructed to bring medication list with them on the day of the procedure. Anticoagulants/Antiplatelets: Takes brilinta bid, instructed to take aspirin 81 mg on 12/14/14-12/15/14. Anti-Anginal meds: none Michaelle Ellsworth RN documented in this encounter H&P Notes * Chun Nielsen MD - 12/15/2014 1044 EDT Asbestos Microscopist H&P PCP: Pretty Avery MD Business Management Associate: Date of Service: 12/15/2014 Chief Complaint: angina [...] angina has been stable. Referred for [facility] to further evaluate. 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 Smoking status: [...] consent has been obtained. Chun Nielsen MD Asbestos Microscopist Pager [phone] documented in this encounter Procedure Notes * [...] artery Procedure: She was brought to [facility] Cardiac Catheterization Laboratory for the procedure: [...] 4 weeks Dilip Mahajan Jr., MD PagerNumber: [phone] 12/15/2014 11:43 documented in this encounter Plan [...] EST) 09/26/2015 11:4 2 EST Scan 2 Business Management Associate PROCEDURE/MINOR SHAYY GICAL ORDERABLES * INVASIVE CARDIOLOGY REPORT-SCANNED (12/19/2014 8:53 EDT) 12/19/2014 8:53 EDT Scan 2 Business Management Associate PROCEDURE/MINOR SHAYY GICAL ORDERABLES * ECG REPORT - SCANNED (12/19/2014 8:17 EDT) 12/19/2014 8:17 EDT Scan 2 Business Management Associate PROCEDURE/MINOR SHAYY GICAL ORDERABLES * LEFT HEART CATH (12/15/2014 11:26 EDT) Anatomical Region Laterality Modality Other 12/15/2014 11:2 6 EDT Narrative 12/18/2014 8:37 EDT Cardiology [address] [place] [address] Catheterization Laboratory Study Patient: Isa Ro ? Study Date: ?12/15/2014 ? Accession #: ? [id number] : ? 1965 Referring Physician: Pretty Avery [...] Right radial artery access. A 6 FR/10 [employer] Sheath [place] SS .021 sheath was ?? advanced into [...] Dilip Mahajan Jr., MD - 12/18/[address] [place] [address] Catheterization Laboratory Study Patient: Isa Ro Study [...] DATA: Study status: [facility]iac cath: elective. [facility] Sex: female. Patient is 49yr [...] artery access. A 6 FR/10 [employer] Sheath [place] SS .021sheath was advanced into the vessel. [...] 10:12 EDT) 12/15/2014 10:1 2 EDT Narrative [facility] EKG - 12/15/2014 15:09 EDT ? [facility] ? Test Date: ?2014-12-15 Pat Name: ? ISA RO ?Department: ?? CVU ? Room: ? CVU37 Gender: ? F ?Health Safety Specialist: ?? [id number] : ?1965 ? Requested By: [facility] A Order Number: [id number] ? Reading MD: ?? JOHNNY PATEL MD ? Measurements Intervals ?[place] ? Rate: ? 64 ? P: ?70 VA: ? 155 ?QRS: ?48 QRSD: ? 82 [...] Note Johnny Patel MD - 12/15/2014 [facility] Test Date: 2014-12-15 Pat Name: ISA RO Department: CVU Room: [facility] Gender: F Health Safety Specialist: [id number] : 1965 Requested By: RUTH Vera Order Number: [id number] Reading MD: JOHNNY VICTOR Measurements Intervals [place] Rate: 64 P: 70 VA: 155 QRS: 48 QRSD: 82 T: 72 QT: 434 QTc: 450 Interpretive Statements SINUS RHYTHM NONSPECIFIC ST & T-WAVE ABNORMALITY Compared to ECG 03/31/2014 13:30:36 Sinus rhythm now present T-wave abnormality now present I reviewed the tracing and have either agreed or edited the findings inthis report. Electronically Signed On 12-15-14 15:09:46 EDT by CHARBEL MACK. Abiodun Velez MD CARDIAC ECG ORDER JAMI [facility] EKG * PROTIME (12/15/2014 10:04 EDT) [facility] Pro Time 10.3 9.5 - 12.3 secs 12/15/2014 10:37 [facility] I.N.R. 1.0 0.9 - 1.1 Ratio 12/15/2014 10:37 [facility] Comment: Moderate Intensity Coumadin INR = 2.0-3.0 Adjustments in anticoagulant therapy dose should be based upon the INR and NOT the Pro Time. Blood specimen (specimen) BLOOD SPECIMEN / Unknown 12/15/2014 10:04 EDT 12/15/2014 10:21 EDT Abiodun Velez MD HEMATOLOGY & PF4 ORDERABLES [facility] [address] [place] [address] * HEMAGRAM (12/15/2014 10:04 EDT) WBC 6.17 4.0 - 12.4 K/cmm 12/15/2014 10:28 [facility] RBC 4.76 3.86 - 5.04 M/cmm 12/15/2014 10:28 [facility] Hemoglobin 13.2 11.6 - 15.2 gm/dl 12/15/2014 10:28 [facility] HCT 40.0 34.9 - 44.4 % 12/15/2014 10:28 [facility] MCV 84 81 - 98 fl 12/15/2014 10:28 [facility] MCH 27.8 26.7 - 33.3 pg 12/15/2014 10:28 [facility] MCHC 33.1 32.1 - 35.9 gm/dl 12/15/2014 10:28 [facility] RDW-CV 13.7 11.7 - 14.6 % 12/15/2014 10:28 [facility] RDW-SD 41.6 37.6 - 50.3 fl 12/15/2014 10:28 [facility] PLT 245 141 - 320 K/cmm 12/15/2014 10:28 [facility] MPV 8.0 7.5 - 11.2 fl 12/15/2014 10:28 EDT [facility] Blood specimen (specimen) BLOOD SPECIMEN / Unknown 12/15/2014 10:04 EDT 12/15/2014 10:21 EDT Abiodun Velez MD HEMATOLOGY & PF4 ORDERABLES Performing Organization Address City/[facility]/ZIP Co de Phone Number [facility] [address] [place] [address] * ELECTROLYTES (12/15/2014 10:04 EDT) Sodium 141 136 - 145 mEq/L 12/15/2014 10:45 EDT [facility] Potassium 4.3 3.5 - 5.0 mEq/L 12/15/2014 10:45 EDT [facility] Chloride 103 96 - 110 mEq/L 12/15/2014 10:45 EDT [facility] CO2 28 24 - 32 mEq/L 12/15/2014 10:45 EDT [facility] Blood specimen (specimen) BLOOD SPECIMEN / Unknown 12/15/2014 10:04 EDT 12/15/2014 10:21 EDT Abiodun Velez MD CHEMISTRY & BLOOD GAS ORDERABLES Performing Organization Address [facility] Co de Phone Number [facility] [address] [place] [address] * CREATININE (12/15/2014 10:04 EDT) Creatinine 0.78 0.52 - 1.04 mg/dl 12/15/2014 10:45 EDT [facility] GFR, Calculated >60 >60 ml/min/1.7 3m2 12/15/2014 10:45 EDT [facility] Blood specimen (specimen) BLOOD SPECIMEN / Unknown 12/15/2014 10:04 EDT 12/15/2014 10:21 EDT Abiodun Velez MD CHEMISTRY & BLOOD GAS ORDERABLES [facility] [address] [place] [address] * BUN (12/15/2014 10:04 EDT) BUN 16 10 - 26 mg/dl 12/15/2014 10:45 EDT [facility] Blood specimen (specimen) BLOOD SPECIMEN / Unknown 12/15/2014 10:04 EDT 12/15/2014 10:21 EDT Abiodun Velez MD CHEMISTRY & BLOOD GAS ORDERABLES [facility] [address] [place] [address] documented in this encounter Visit Diagnoses Not [...] 12/15/2014 documented in this encounter Care Teams Natural Gas Inspector Relationship Specialty Start Date End Date Pretty Avery MD [address] [place] [address] PCP - General 06/05/10 documented as of this encounter
--- OUTSIDE RECORDS SUMMARY | 2024-04-20 23:28 | XMS_ITS | Encounter Summary ---
Author Organization [facility] Address [address] [place] [address] Care Team Providers Care Telephone Solicitor Supervisor Name Role Phone Pretty Avery MD Primary Care Provider [phone] Encounter Details Date Type Department Care Team (Late st Contact Info) Description 12/05/2015 Results Only [facility] [phone] Ezequiel Estrada MD [address] [place] [phone] Social History Tobacco Use Types Packs/Day Years [...] ? EZEQUIEL THOMAS ? Accession #: ? [id number] ? : ? 1965 (Age: 50) ??F [...] the atypical cells from the stroma. ??(Dr. Mcgovern)/[facility] Document reviewed and electronically signed by: WILLIAM [...] May 12/06/2015 1:10 PM End of Report [facility] 12/05/2015 10:3 3 EDT 12/06/2015 10:33 EDT Ezequiel Estrada MD PATHOLOGY ORDERABLES [facility] [address] [place] [address] documented in this encounter Visit Diagnoses Not on filedocumented in this encounter Care Teams Telephone Solicitor Supervisor Relationship Specialty Start Date End Date Pretty Avery MD [address] [place] [address] PCP - General 06/05/10 documented as of this encounter
--- OUTSIDE RECORDS SUMMARY | 2024-04-20 23:29 | XMS_ITS | Encounter Summary ---
Author Organization [facility] Address [facility] [place] [address] Care Team Providers Care Plating Foreman Name Role Phone None Primary Care Provider Unavailabl e Reason for Referral * Consultation (Routine) - Authorized Specialty Diagnoses / Procedures Referred By Contac t Referred To Contact Cardiology Diagnoses ST elevation myocardial infarction involving left anterior descending (LAD) coronary artery Kathryn Walker MD [facility] [place] [address] [facility] [address] [place] [address] Referral ID Status Reason Start Date Expiration Date Visits Requested Visits Authorized [id number] Authorized Consult, Test & Treat 03/22/2024 09/18/2024 1 1 * Consultation (Routine) - Authorized Specialty Diagnoses / Procedures Referred By Contac t Referred To Contact Cardiology Diagnoses ST elevation myocardial infarction involving left anterior descending (LAD) coronary artery Horace Hancock MD [facility] [place] [address] Cardiac Rehab, [address] [place] [address] Referral ID Status Reason Start Date Expiration Date Visits Requested Visits Authorized [id number] Authorized Consult, Test & Treat 03/22/2024 09/18/2024 36 36 Reason for Visit * Auth/Cert (Routine) Specialty Diagnoses / Procedures Referred By Contac t Referred To Contact Diagnoses Acute ST elevation myocardial infarction (STEMI) due to occlusion of left anterior descending (LAD) coronary artery stemi Procedures EMERGENCY IPI Destin Ambrosio MD [facility] [place] [address] [facility] Referral ID Status Reason Start Date Expiration Date Visits Re quested Visits Authorized [id number] 1 1 Encounter Details Date Type Department Care Team (Latest Contact Info) Description 03/19/2024 12:37 AM EDT - 03/22/2024 12:10 PM EDT Hospital Encounter Heart and Vascular Unit Level 4 Wing A at [place] [id number] Destin Ambrosio MD [facility] [place] [address] Horace Hancock MD [facility] [place] [address] Kathryn Walker MD [facility] [place] [address] ST elevation myocardial infarction involving left anterior descending (LAD) coronary artery; Chest pain, unspecified type Discharge Disposition: Home Social History Tobacco Use Types Packs/Day Years Used Date Smoking Tobacco: Former Smokeless Tobacco: Never Alcohol Use Standard Drinks/Week Comments Yes 14 (1 standard drink = 0.6 oz pu re alcohol) [facility] Utilities Answer Date Recorded In the past 12 months has [facility] [employer], gas, oil, or water [employer] threatened to shut off services in your [...] any time in the past [address] [facility], were you homeless or living [...] Isa Ro Patient Age: 59 y.o. Language: Lao Race: White Ethnicity: Not nor Admit date: [...] hypoxemic and hypercapnic respiratory failure in the cardiac cath lab manager, potentially also due to sedation. Patient briefly [...] mildly reduced LVEF [ ] f/u [facility] cardiology scheduled. [facility] cardiology referral sent Inpatient Provider Contact Information: Kathryn Walker MD [phone] For questions regarding this document or issues relating to this hospitalization on the Medical Service, please contact your inpatient physician through the [facility] Button Sawyer . Issues afterhours and on weekends will [...] 03/19/2024 8:37 AM) Result Value WORKSTATION ID [id number] Narrative EXAMINATION: XR CHEST ONE VIEW CLINICAL [...] have questions please contact the health care information associate that requested your imaging first. Cardiac Catheterization (Exam End: 03/19/2024 1:36 AM) Narrative [facility] Cardiac Catheterization/Intervention Report Patient Name: Isa Ro Procedure Date: 03/19/2024 A #: [id number] Primary Physician: Ramo Roy Case #: [id number] File Name: [id number] Catheterization Order Number: [id number] [facility] Mowing Machine Operator [facility] Final Report [place], [place] Patient Name: Isa Ro ID#: [id number] : 1965 Procedure Date: March 19, 2024 [...] was designated as ASA Class IV. The [facility] clinical frailty scale is 3: Managing Well. Diagnostic Tests: Prior Coronary Angiography: Prior coronary angiography was performed on 12/15/2014. Electrocardiography: EKG was assessed by ECG. EKG was Abnormal. EKG showed ST Deviation >= 0.5 mm and other abnormality. Medications Prior to Procedure: Aspirin. Indications for Diagnostic Cath: The priority of the diagnostic procedure was Emergent. The indication for the cardiac cath lab manager visit is ACS less than or equal [...] 3.5 guiding catheter and a 3.5 Fr [place] [facility] [place] 20 Mhz using auto 1 mm/sec pullback. [...] priority for the procedure was Emergent. The [facility] indication for the procedure was [...] atmospheres. A premounted 3.00 x 08 mm [place] (JAHAIRA) was deployed with a maximum inflation pressure of 12 atmospheres. Another stent insertion was accomplished through a 6 Fr. EBU 3.5 guide. A premounted 2.00 x 08 mm [place] (JAHAIRA) was deployed. The final outcome was [...] dose administered prior to arrival in the cardiac cath lab manager. Recommended anti-platelet/anti-thrombotic regimen: Start aspirin 81 mg daily now and continue for indefinitely. Start clopidogrel 75 mg daily now and continue for 12 months then stop. These recommendations are made at the time of the intervention. Patient and provider preferences or a changing clinical situation may require modification of this regimen. Consult [facility] Interventional Cardiology for questions. The [...] any medical treatment. Consult http://tools.acc.org/DAPTriskapp/#!/content/calculator/ or [facility] Interventional Cardiology for questions Conclusions: [...] decreased and new wall motion abnormalities. Procedure Complete-22727. Image enhancement Definity was used for left [...] LAD in 03/2014, HLD, who presented to [facility] with chest pain. She developed chest pain around 2100 on 03/18 which prompted her to call EMS. She was given 325mg of aspirin and nitroglycerin. On arrival to [facility], she was found to have an EKG suggestive of anterior STEMI for which she was given half dose TNKfor systemic lysis prior to speaking with Dr. Herrera, on-call process consultant at [facility]. She was subsequently transferred directly to the [facility] cardiac cath lab manager where coronary angiography revealed a 100% occluded [...] away. Stay on the phone. The emergency french folding machine operator will tell you what to [...] of 8AM-5PM please call the Cardiology Clinic [phone] to speak with a nurse. All other hours please call the Hospital Button [facility]yer [phone] and ask to speak to the cardiovascular hospitalist on-call. Return to work: One week Follow up Appointments: Doctor Where Phone # Date Time PCP MELECIO Polanco [address] [place], [place] [address] 04/04/24 7:55 AM Plant Taxonomy Teacher Herlinda Weaver PA-C [facility] Cardiology Clinic [phone] 05/09/24 10:40 AM (pleasearrive by 10:20 AM) *A referral has also been placed to [facility] cardiology, though you will need to follow-up with them regarding scheduling appointments at [phone] General Instructions None Future Appointments and Orders Future Appointments and Orders Future Appointments Provider Department Dept Phone 05/09/2024 10:40 AM Herlinda Weaver PA Cardiology at [facility] Arrive at: Marketing/Sales Person Area [phone] Future Orders Complete By Expires Referral to Cardiac Rehab [[id number] Custom] As directed Process Instructions: If no progress note charted, please enter Clinical details in comments. Scheduling Instructions: Questions: My question or request is: s/p STEMI- cardiac rehab at [facility] Referral to Cardiology [REF12 Custom] As directed Process Instructions: If no progress note charted, please enter Clinical details in comments. Scheduling Instructions: Questions: My question or request is: s/p STEMI Discharge References/Attachments None Greater than 30 minutes was spent on this discharge including documentation, [id number]-[id number] time withthe patient, patient education, seismograph recorder, coordination with pharmacy and other patient [...] away. Stay on the phone. The emergency french folding machine operator will tell you what to [...] has also been placed to [facility]. Call your doctor if: Chest pain, dyspnea, pain or swelling in legs occurs, or for weight gain of 2 pounds overnight or 5pounds in 5 days. If you have non-emergent questions, prior to your follow-up visit call: Thursday-Thursday between the hours of 8AM-5PM please call the Cardiology Clinic [phone] to speak with a nurse. All other hours please call the Hospital [facility] Saw[facility] [phone] and ask to speak to the cardiovascular hospitalist on-call. Return to work: One week Follow up Appointments: Doctor Where Phone # Date Time PCP MELECIO Polanco [address] [place], [place] [address] 04/04/24 7:55 AM Plant Taxonomy Teacher Herlinda Weaver PA-C [facility] Cardiology 4A Clinic [phone] 05/09/24 10:40 AM (pleasearrive by 10:20 AM) *A referral has also been placed to [facility] cardiology, though you will need to follow-up with them regarding scheduling appointments at [phone] documented in this encounter Medications at Time [...] participate in cardiac rehab at [facility] following discharge Review of Systems: Review [...] to have resulted in hypoxemia in the cardiac cath lab manager. She was also a bit hypercapnic which [...] Losartan/GDMT consideration -Cardiac Rehab at [facility] following discharge -Telemonitoring x72 hours -Plan for discharge tomorrow -Cardiology appointment scheduled 05/09/2024 at 10:40 AM t [facility] #Significant HLD -LDL 324 -Atorvastatin [...] to have resulted in hypoxemia in the cardiac cath lab manager. 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 I asked [...] MD - 03/19/2024 2:50 AM EDT [facility] TeleICU Initial Assessment Note I established audio/visual communication with the patient's room, reviewed the eDH. History and Assessment: 59 yo F transferred from [facility] for a STEMI alert. Received ASA [...] => BiPAP started Following procedure, transferred to [facility] - able to be weaned to [...] 10:00 PM Hospital to which patient presented: [facility] If Hospital to which patient presented= [facility]: ED via EMS Date and [...] Not contraindicated Plan STEMI Alert called: Yes Mowing Machine Operator Activated by: Tax Record Clerk Initial Disposition: Admit Mowing Machine Operator documented in this encounter H&P [...] to LAD in 03/2014, HLD,who presented to [facility] with chest pain. She developed chest pain around 2100 on 03/18 which prompted her to call EMS. She was given 325mg of aspirin and nitroglycerin. On arrival to [facility], she was found to have an EKG suggestive of anterior STEMI for which she was given half dose TNK for systemic lysis prior to speaking with Dr. Herrera, on-call process consultant at [facility]. She was subsequently transferred directly to the [facility] cardiac cath lab manager where coronary angiography revealed a 100% occluded [...] to have resulted in hypoxemia in the cardiac cath lab manager. She was also a bit hypercapnic which [...] Cardiopulmonary Resuscitation - Inpatient Ganesh Nguyen MD Tax Record Clerk [id number] documented in this encounter Miscellaneous Notes [...] Care: Contact information for follow-up Cardiac Rehab, [facility] [address] [facility] [address] Cardiology, [facility] [address] [facility] [address] Transportation: family or friend will provide Functional [...] as Appropriate) * Care Management - Rajwinder oMon - 03/21/2024 4:02 PM EDT Patient completed a [place] advance directive. Patient identified her sister Stacia [...] N/A ; Prescription Coverage: Yes Preferred Pharmacy: [place], [place] - [address] [place] [address] [address] [place] [address] [address] [facility] [address] [id number] - [address] [address] [facility] - [facility], [place] - [address] [facility] [address] [facility] [address] Advance Care Planning: Attempt Cardiopulmonary Resuscitation - Inpatient <no information> -Advanced Directive: No, need to discuss (RS referral sent for AD discussion) Current Functional Ability: Assistive Person Functional Status Prior to Admission: Independent Home Environment: Others in the home: child(lucian), minor (lives with her 15yo son). Current Living Arrangements: home/apartment/condo. Accessibility Concerns:house with 3 floors and 2 [address]. Current DME: none [address] [facility] [address] Social & Family Supports: All names listed below confirmed with patient as current and correct Extended Emergency Contact Information Primary Emergency Contact: Tiffany Ro, [facility] Mobile Relation: Mother Current Care Provided [...] RS for AD discussion today. Registered Nurse After School Program Assistant / Station Helper will continue to follow patient???s progress and [...] outpatient cardiac rehabilitation program at [facility] was discussed. Patient agrees to a [...] Operative Note Patient Name: Isa Ro : [id number] MR#: [id number] Case Date: 03/19/2024 Surgeon: Surgeons and Role: [...] Care Team (Late st Contact Info) Description 04/22/2024 Hospital Encounter Heart and Vascular Unit Level 3 [place] [address] Kiran Amador MD [facility] [place] [address] 05/09/2024 10:40 AM EDT Office Visit Cardiology at [address] [place] [address] Herlinda Weaver PA [facility] [place] [address] Scheduled Referrals Name Type Priority Associated Diagnoses [...] 5:06 AM EDT) Neutrophil % 71.6 % [facility] Neutrophil Absolute 8.34(H) 1.70 - 6.10 x10(3)/mc L [facility] Lymph % 17.4 % [facility] Lymphocytes Abs 2.0 0.9 - 3.2 x10(3)/mc L [facility] Monocyte % 8.2 % [facility] Monocyte Abs 1.0(H) 0.3 - 0.9 x10(3)/mc L [facility] Eos % 2.2 % [facility] Eosinophils Abs 0.3 0.0 - 0.4 x10(3)/mc L [facility] Basophil % 0.3 % [facility] Baso Absolute 0.0 0.0 - 0.1 x10(3)/mc L [facility] Immature Gran % 0.30 % [facility] Comment: Immature granulocytes(IG's)percentage and absolute count will include metamyelocytes, myelocytes, and promyelocytes. Blood smears from CBCs yielding IG's will be scanned manually for concordance. If this scan disagrees with the automated IG or if promyelocytes are noted, a manual differential will be performed. Immature Gran Absolute 0.03 0.00 - 0.04 x10(3)/mc L [facility] Blood 03/22/2024 5:06 AM EDT 03/22/2024 5:12 AM EDT Narrative Resulting Agency Comment Spec In Lab Horace Hancock MD HEMATOLOGY ORDERABLE S [facility] [place] [address] * (ABNORMAL) Hemogram (03/22/2024 5:06 AM EDT) [facility] White Blood Cell 11.6(H) 4.0 - 9.5 x10(3)/[facility] Red Blood Cell 4.80 4.00 - 5.21 x10(6)/[facility] Hemoglobin 13.5 11.7 - 15.5 g/dL [facility] Hematocrit 40.3 35.7 - 45.8 % [facility] Mean Cell Volume 84.0 82.6 - 94.4 fL [facility] Mean Cell Hemoglobin 28.1 27.1 - 32.0 pg [facility] Mean Cell Hemoglobin Concentration 33.5 31.7 - 35.0 g/dL [facility] Platelet 232 145 - 357 x10(3)/[facility] RDW Standard Deviation 42.2 37.0 - 46.0 [facility] RDW coefficient of variation 13.5 11.5 - 14.1 % [facility] Mean Platelet Volume 9.7 7.6 - 12.9 [facility] NRBC% auto 0.0 % [facility] NRBC Absolute 0.000 0.000 - 0.000 x10(3)/[facility] Blood 03/22/2024 5:06 AM EDT 03/22/2024 5:12 AM EDT Narrative Resulting Agency Comment Spec In Lab Horace Hancock MD HEMATOLOGY ORDERABLE S [facility] [place] [address] * Basic Metabolic Panel (non-fasting) (03/22/2024 5:06 AM EDT) [facility] Glucose 107 65 - 199 mg/dL [facility] Comment:Diabetes: >=200 mg/d L plus symptoms Blood Urea Nitrogen 18 8 - 18 mg/dL [facility] [...] 98 - 107 mmol/L [facility] Carbon Dioxide 24 22 - 31 mmol/L [facility] Anion Gap 10 5 - 15 mmol/L [facility] Calcium 9.2 8.5 - 10.5 mg/dL [facility] Est Glomerular Filtration Rate 76 >=60 mL/min/1. 73 m?? [facility] [...] Hancock MD CHEMISTRY ORDERABLES [facility] [place] [address] * Magnesium (03/22/2024 5:06 AM EDT) Magnesium 0.90 0.69 - 1.07 mmol/L [facility] Blood 03/22/2024 5:06 AM EDT 03/22/2024 5:12 AM EDT Narrative Resulting Agency Comment Spec In Lab Destin Ambrosio MD CHEMISTRY ORDERABLES [facility] [place] [address] * (ABNORMAL) Differential, Automated (03/21/2024 2:57 AM EDT) Neutrophil % 63.0 % [facility] Neutrophil Absolute 6.70(H) 1.70 - 6.10 x10(3)/mc L [facility] Lymph % 24.9 % [facility] Lymphocytes Abs 2.6 0.9 - 3.2 x10(3)/ L [facility] Monocyte % 8.7 % [facility] Monocyte Abs 0.9 0.3 - 0.9 x10(3)/ L [facility] Eos % 2.8 % [facility] Eosinophils Abs 0.3 0.0 - 0.4 x10(3)/ L [facility] Basophil % 0.3 % [facility] Baso Absolute 0.0 0.0 - 0.1 x10(3)/mc L [facility] Immature Gran % 0.30 % [facility] Comment: Immature granulocytes(IG's)percentage and absolute count will include metamyelocytes, myelocytes, and promyelocytes. Blood smears from CBCs yielding IG's will be scanned manually for concordance. If this scan disagrees with the automated IG or if promyelocytes are noted, a manual differential will be performed. Immature Gran Absolute 0.03 0.00 - 0.04 x10(3)/mc L [facility] Blood 03/21/2024 2:57 AM EDT 03/21/2024 3:03 AM EDT Narrative Resulting Agency Comment Spec In Lab Horace Hancock MD HEMATOLOGY ORDERABLE S Performing Organization Address City/[facility]/ZIP Co de Phone Number [facility] [place] [address] * (ABNORMAL) Hemogram (03/21/2024 2:57 AM EDT) White Blood Cell 10.6(H) 4.0 - 9.5 x10(3)/mc L [facility] Red Blood Cell 4.54 4.00 - 5.21 x10(6)/mc L [facility] Hemoglobin 12.8 11.7 - 15.5 g/dL [facility] Hematocrit 38.2 35.7 - 45.8 % [facility] Mean Cell Volume 84.1 82.6 - 94.4 fL [facility] Mean Cell Hemoglobin 28.2 27.1 - 32.0 pg [facility] Mean Cell Hemoglobin Concentration 33.5 31.7 - 35.0 g/dL [facility] Platelet 242 145 - 357 x10(3)/mc L [facility] RDW Standard Deviation 42.4 37.0 - 46.0 fL [facility] RDW coefficient of variation 13.7 11.5 - 14.1 % [facility] Mean Platelet Volume 9.5 7.6 - 12.9 fL [facility] NRBC% auto 0.0 % [facility] NRBC Absolute 0.000 0.000 - 0.000 x10(3)/mc L [facility] Blood 03/21/2024 2:57 AM EDT 03/21/2024 3:03 AM EDT Narrative Resulting Agency Comment Spec In Lab Horace Hancock MD HEMATOLOGY ORDERABLE S [facility] [place] [address] * Basic Metabolic Panel (non-fasting) (03/21/2024 2:57 AM EDT) Glucose 98 65 - 199 mg/dL [facility] Comment:Diabetes: >=200 mg/d L plus symptoms Blood Urea Nitrogen 15 8 - 18 mg/dL [facility] Creatinine 0.82 0.70 - 1.20 mg/dL [facility] Sodium 144 135 - 145 mmol/L [facility] Potassium 4.2 3.5 - 5.0 mmol/L [facility] Comment: Please note: ??Patients with WBC >100,000 may have falsely elevated Potassium levels. ??For accurate Potassium quantification in these patients send serum separator tube (gold top) for subsequent determinations. ??Contact the Clinical Chemistry Laboratory if there are any questions. Chloride 107 98 - 107 mmol/L [facility] Carbon Dioxide 25 22 - 31 mmol/L [facility] Anion Gap 12 5 - 15 mmol/L [facility] Calcium 9.2 8.5 - 10.5 mg/dL [facility] Est Glomerular Filtration Rate 82 >=60 mL/min/1. 73 m?? [facility] [...] Hancock MD CHEMISTRY ORDERABLES [facility] [place] [address] * Magnesium (03/21/2024 2:57 AM EDT) Magnesium 0.91 0.69 - 1.07 mmol/L [facility] Blood 03/21/2024 2:57 AM EDT 03/21/2024 3:03 AM EDT Narrative Resulting Agency Comment Spec In Lab Destin Ambrosio MD CHEMISTRY ORDERABLES Performing Organization Address [facility] de Phone Number [facility] [place] [address] * Metanephrines, Fractionated Free, plasma (03/21/2024 2:57 AM EDT) Normetanephrine, Free (JANUARY) 0.47 <0.90 nmol/L [facility] Comment: Test Performed by: [facility] [place] [address] Field Irrigation Worker: Chasity Hernandez Ph.D.; CLIA# [id number] Metanephrine, Free (JANUARY) <0.20 <0.50 nmol/L [facility] Comment: ADDITIONAL INFORMATION This test was developed and its performance characteristics determined by [facility] in a manner consistent with CLIA requirements. This test has not been cleared or approved by the U.S. Food and Drug Administration. Test Performed by: [facility] [place] [address] Field Irrigation Worker: Chasity Hernandez Ph.D.; CLIA# [id number] Blood 03/21/2024 2:57 AM EDT 03/21/2024 11:29 AM EDT Narrative Resulting Agency Comment Spec In Lab Horace Hancock MD LAB SEND OUT ORDERAB LES Performing Organization Address [facility]/ZIP Co de Phone Number [facility] [place] [address] * Iron and TIBC (03/20/2024 10:38 AM [...] Hancock MD CHEMISTRY ORDERABLES [facility] [address] * (ABNORMAL) Differential, Automated (03/20/2024 10:38 AM EDT) Neutrophil % 73.1 % [facility] Neutrophil Absolute 9.60(H) 1.70 - 6.10 x10(3)/mc L [facility] Lymph % 17.3 % [facility] Lymphocytes Abs 2.3 0.9 - 3.2 x10(3)/mc L [facility] Monocyte % 7.5 % [facility] Monocyte Abs 1.0(H) 0.3 - 0.9 x10(3)/mc L [facility] Eos % 1.5 % [facility] Eosinophils Abs 0.2 0.0 - 0.4 x10(3)/mc L [facility] Basophil % 0.3 % [facility] Baso Absolute 0.0 0.0 - 0.1 x10(3)/mc L [facility] Immature Gran % 0.30 % [facility] Comment: Immature granulocytes(IG's)percentage and absolute count will include metamyelocytes, myelocytes, and promyelocytes. Blood smears from CBCs yielding IG's will be scanned manually for concordance. If this scan disagrees with the automated IG or if promyelocytes are noted, a manual differential will be performed. Immature Gran Absolute 0.04 0.00 - 0.04 x10(3)/ L [facility] Blood 03/20/2024 10:3 8 AM EDT 03/20/2024 10:47 AM EDT Narrative Resulting Agency Comment Spec In Lab Horace Hancock MD HEMATOLOGY ORDERABLE S [facility] [place] [address] * (ABNORMAL) Hemogram (03/20/2024 10:38 AM EDT) White Blood Cell 13.2(H) 4.0 - 9.5 x10(3)/[facility]ORATORY Red Blood Cell 4.66 4.00 - 5.21 x10(6)/[facility]ATORY Hemoglobin 13.0 11.7 - 15.5 g/dL [facility] Hematocrit 38.7 35.7 - 45.8 % [facility] Mean Cell Volume 83.0 82.6 - 94.4 fL [facility] Mean Cell Hemoglobin 27.9 27.1 - 32.0 pg [facility] Mean Cell Hemoglobin Concentration 33.6 31.7 - 35.0 g/dL [facility] Platelet 238 145 - 357 x10(3)/[facility]ORATORY RDW Standard Deviation 41.7 37.0 - 46.0 [facility] LABORATORY RDW coefficient of variation 13.8 11.5 - 14.1 % [facility] Mean Platelet Volume 9.8 7.6 - 12.9 [facility] LABORATORY NRBC% auto 0.0 % [facility] NRBC Absolute 0.000 0.000 - 0.000 x10(3)/ L [facility] Blood 03/20/2024 10:3 8 AM EDT 03/20/2024 10:47 AM EDT Narrative Resulting Agency Comment Spec In Lab Horace Hancock MD HEMATOLOGY ORDERABLE S Performing Organization Address City/[facility]/ZIP Co de Phone Number [facility] [place] [address] * Magnesium (03/20/2024 10:38 AM EDT) Magnesium 0.88 0.69 - 1.07 mmol/L [facility] Blood 03/20/2024 10:3 8 AM EDT 03/20/2024 10:47 AM EDT Narrative Resulting Agency Comment Spec In Lab Horace Hancock MD CHEMISTRY ORDERABLES Performing Organization Address [facility] Co de Phone Number [facility] [place] [address] * Basic Metabolic Panel (non-fasting) (03/20/2024 10:38 AM EDT) Pathologist [facility] Glucose 108 65 - 199 mg/dL [facility] Comment:Diabetes: >=200 mg/d L plus symptoms Blood Urea Nitrogen 11 8 - 18 mg/dL [facility] Creatinine 0.82 0.70 - 1.20 mg/dL [facility] Sodium 137 135 - 145 mmol/L [facility] Potassium 4.3 3.5 - 5.0 mmol/L [facility] Comment: Please note: ??Patients with WBC >100,000 may have falsely elevated Potassium levels. ??For accurate Potassium quantification in these patients send serum separator tube (gold top) for subsequent determinations. ??Contact the Clinical Chemistry Laboratory if there are any questions. Chloride 101 98 - 107 mmol/L [facility] Carbon Dioxide 22 22 - 31 mmol/L [facility] Anion Gap 14 5 - 15 mmol/L [facility] Calcium 9.0 8.5 - 10.5 mg/dL [facility] Est Glomerular Filtration Rate 82 >=60 mL/min/1. 73 m?? [facility] [...] Hancock MD CHEMISTRY ORDERABLES Performing Organization Address City/[facility]/ZIP Co de Phone Number [facility] [place] [address] * Magnesium (03/19/2024 11:01 PM EDT) Magnesium 0.96 0.69 - 1.07 mmol/L [facility] Blood Venous Draw / Unknown 03/19/2024 11:01 PM EDT 03/19/2024 11:06 PM EDT Narrative Resulting Agency Comment Spec In Lab Horace Hancock MD CHEMISTRY ORDERABLES Performing Organization Address City/[facility]/ZIP Co de Phone Number [facility] [place] [address] * (ABNORMAL) Troponin (03/19/2024 11:01 PM EDT) Troponin-T, High Sensitivity 2,406(H) <=14 ng/L [facility] Comment: [...] troponin value can be found in the [facility] Laboratory Test Catalog Troponin - [facility] Test Catalog Reference: Fourth [place] Definition of Myocardial Infarction. Journal of the [place] [employer] 2018;72:0876-6049 Blood 03/19/2024 11:0 1 PM EDT 03/19/2024 11:05 PM EDT Narrative Resulting Agency Comment Spec In Lab Franky Mead MD CHEMISTRY ORDERABLE S [facility] [place] [address] * (ABNORMAL) Troponin (03/19/2024 8:40 PM EDT) Pathologist [facility] Troponin-T, High Sensitivity 2,586(H) <=14 ng/L [facility] Comment: This [...] troponin value can be found in the [facility] Laboratory Test Catalog Troponin - [facility] Test Catalog Reference: Fourth [place] Definition of Myocardial Infarction. Journal of the [place] [employer] 2018;72:3081-4515 Blood 03/19/2024 8:40 PM EDT 03/19/2024 8:45 PM EDT Narrative Resulting Agency Comment Spec In Lab Ganesh Nguyen MD CHEMISTRY ORDERAB LES Performing Organization Address City/[facility]/ZIP Co de Phone Number [facility] [place] [address] * EKG 12 Lead (03/19/2024 8:32 PM EDT) Ventricular rate 70 BPM MUSE SYSTEM Atrial Rate 70 BPM MUSE SYSTEM P-R Interval 158 ms MUSE SYSTEM QRS Duration 78 ms MUSE SYSTEM Q-T Interval 470 ms MUSE SYSTEM QTC Calculated (Bezet) 507 ms MUSE SYSTEM Calculated P Irving 62 degrees MUSE SYSTEM Calculated R Irving 42 degrees MUSE SYSTEM Calculated T Irving -158 degrees MUSE SYSTEM INTERPRETATION Normal sinus rhythm Poor R wave progression T wave abnormality, consider lateral ischemia Prolonged QT Abnormal ECG When compared with ECG of 19-MAR-2024 17:27, No significant change was found Confirmed by MD Ambrosio David ([id number]) on 03/23/2024 8:10:58 AM MUSE SYSTEM 03/19/2024 [...] (Bezet) 496 ms MUSE SYSTEM Calculated P Irving 80 degrees MUSE SYSTEM Calculated R Irving 87 degrees MUSE SYSTEM Calculated T Irving -96 degrees MUSE SYSTEM INTERPRETATION Normal sinus rhythm T wave abnormality, consider lateral ischemia Prolonged QT Abnormal ECG When compared with ECG of 19-MAR-2024 02:23, Non-specific change in ST segment in Anterior leads T wave inversion more evident in Inferior leads T wave inversion now evident in Anterolateral leads Confirmed by MD Ambrosio David ([id number]) on 03/23/2024 8:10:45 AM MUSE SYSTEM 03/19/2024 5:27 PM EDT 03/23/2024 8:10 AM EDT Unknown ECG ORDERABLES MUSE SYSTEM * (ABNORMAL) Troponin (03/19/2024 2:45 PM EDT) Troponin-T, High Sensitivity 3,792(H) <=14 ng/L [facility] Comment: This [...] troponin value can be found in the [facility] Laboratory Test Catalog Troponin - [facility] Test Catalog Reference: Fourth [place] Definition of Myocardial Infarction. Journal of the [place] [employer] 2018;72:8877-7614 Blood 03/19/2024 2:45 PM EDT 03/19/2024 2:54 PM EDT Narrative Resulting Agency Comment Spec In Lab Horace Hancock MD CHEMISTRY ORDERABLES [facility] [place] [address] * ECHO COMPLETE W CONTRAST (03/19/2024 10:53 AM EDT) Anatomical Region Laterality Modality Cardiac Other 03/19/2024 9:03 AM EDT Narrative 03/19/2024 12:12 PM EDT [address] [place] [address] ? Echocardiogram Report Name: ISA RO ?Study Date: 03/19/2024 09:03 AMBP: 129/68 mmHg ? Patient Location: 4A : 1965 ? Height: 158 cm ? Account: [id number] Age: 59 yrs ? Weight: 57 kg Gender: Female ?BSA: 1.6 m2 Ordering Physician: GANESH NGUYEN Referring Physician: GANESH NGUYEN Performed By: PEREZ Carlos Reason For Study: STEMI involving LAD Exam Location: [facility]. Interpretation Summary Normal left ventricle size with mildly reduced LV function. LV ejection fraction 49%. LAD territory wall motion abnormality, predominantly involving the LV apex. No LV thrombus visualized with echo contrast. Normal right ventricle. No significant valvular abnormalities. Compared with prior echo dated 08/28/23, LV function has now decreased and new wall motion abnormalities. Procedure Complete-[id number]. Image enhancement Definity was used for left [...] Note Destin Ambrosio MD - 03/19/2024 [address] [place] [address] Echocardiogram Report Name: ISA RO Study Date: 409:03 AMBP: 129/68 mmHg Patient Location: 4A : 1965 Height: 158 cm Account: [id number] Age: 59 yrs Weight: 57 kg Gender: Female BSA: 1.6 m2 Ordering Physician: GANESH NGUYEN Referring Physician: GANESH NGUYEN Performed By: PEREZ Carlos Reason For Study: STEMI involving LAD Exam Location: [facility]. Interpretation Summary Normal left ventricle size with mildly reduced LV function. LV ejectionfraction 49%. LAD territory wall motion abnormality, predominantly involving the LVapex. No LV thrombus visualized with echo contrast. Normal right ventricle. No significant valvular abnormalities. Compared with prior echo dated 08/28/23, LV function has now decreased andnew wall motion abnormalities. Procedure Complete-[id number]. Image enhancement Definity was used for left [...] Chest One View (03/19/2024 8:37 AM EDT) [employer] Signature WORKSTATION ID [id number] RAD Anatomical Region Laterality Modality Chest N/A [...] have questions please contact the health care information associate that requested your imaging first. ? Electronically signed by: Isa Whitley MD, [facility] ??([phone]), at 03/19/2024 10:09 AM Narrative 03/19/2024 10:09 [...] who have questions please contactthe health care information associate that requested your imaging first. Delores Jett MD IMG DX ORDERABLES * Hemoglobin A1c (03/19/2024 5:25 AM EDT) Hemoglobin A1c 5.6 4.3 - 5.6 % [facility] [...] Mellitus, Diabetes Care 2013; 36: Suppl. 1, S67-42 Estimated Average Glucose 114 mg/dL [facility] Blood Venous Draw / Unknown 03/19/2024 5:25 AM EDT 03/19/2024 3:52 PM EDT Narrative Resulting Agency Comment Spec In Lab Horace Hancock MD CHEMISTRY ORDERABLES Performing Organization Address [facility]/ZIP Co de Phone Number [facility] [place] [address] * (ABNORMAL) Differential, Automated (03/19/2024 5:25 AM EDT) Neutrophil % 90.0 % [facility] Neutrophil Absolute 16.73(H) 1.70 - 6.10 x10(3)/mc L [facility] Lymph % 5.2 % [facility] Lymphocytes Abs 1.0 0.9 - 3.2 x10(3)/mc L [facility] Monocyte % 4.2 % [facility] Monocyte Abs 0.8 0.3 - 0.9 x10(3)/mc L [facility] Eos % 0.0 % [facility] Eosinophils Abs 0.0 0.0 - 0.4 x10(3)/mc L [facility] Basophil % 0.2 % [facility] Baso Absolute 0.0 0.0 - 0.1 x10(3)/mc L [facility] Immature Gran % 0.40 % [facility] Comment: Immature granulocytes(IG's)percentage and absolute count will include metamyelocytes, myelocytes, and promyelocytes. Blood smears from CBCs yielding IG's will be scanned manually for concordance. If this scan disagrees with the automated IG or if promyelocytes are noted, a manual differential will be performed. Immature Gran Absolute 0.08(H) 0.00 - 0.04 x10(3)/mc L [facility] Blood 03/19/2024 5:25 AM EDT 03/19/2024 5:34 AM EDT Narrative Resulting Agency Comment Spec In Lab Ganesh Nguyen MD HEMATOLOGY ORDERA BLES Performing Organization Address [facility]/ZIP Co de Phone Number [facility] [place] [address] * (ABNORMAL) Hemogram (03/19/2024 5:25 AM EDT) White Blood Cell 18.6(H) 4.0 - 9.5 x10(3)/mc L [facility] Red Blood Cell 4.92 4.00 - 5.21 x10(6)/mc L [facility] Hemoglobin 13.7 11.7 - 15.5 g/dL [facility] Hematocrit 40.6 35.7 - 45.8 % [facility] Mean Cell Volume 82.5(L) 82.6 - 94.4 fL [facility] Mean Cell Hemoglobin 27.8 27.1 - 32.0 pg [facility] Mean Cell Hemoglobin Concentration 33.7 31.7 - 35.0 g/dL [facility] Platelet 285 145 - 357 x10(3)/[facility] RDW Standard Deviation 41.1 37.0 - 46.0 [facility] LABORATORY RDW coefficient of variation 13.6 11.5 - 14.1 % [facility] Mean Platelet Volume 9.5 7.6 - 12.9 fL [facility] NRBC% auto 0.0 % [facility] NRBC Absolute 0.000 0.000 - 0.000 x10(3)/[facility] Blood 03/19/2024 5:25 AM EDT 03/19/2024 5:34 AM EDT Narrative Resulting Agency Comment Spec In Lab Ganesh Nguyen MD HEMATOLOGY ORDERA BLES [facility] [place] [address] * Lipid Panel (Reflex Direct LDL) (03/19/2024 5:25 AM EDT) Cholesterol, Total 324 mg/dL [facility] Comment: Desirable: ? <200 mg/dL Borderline High: 200-239 mg/dL Higher: ?>bq=729 mg/dL Triglyceride 200 mg/dL [facility] Comment: Normal: ?<150 mg/dL Borderline High: 150-199 mg/dL High: ?200-499 mg/dL Very High: ? >pk=805 mg/dL HDL Cholesterol 68 mg/dL [facility] Comment: Females: High Risk: <50 mg/dL Males: High Risk: <40 mg/dL LDL Cholesterol 216 mg/dL [facility] Comment: Desirable: ? <100 mg/dL Above Desirable: 100-129 mg/dL Borderline High: 130-159 mg/dL High: ?160-189 mg/dL Very High: ? >bw=367 mg/dL Lipid Interpretation See Note [facility] [...] ACC/AHA Guidelines (most recently Jw et al. [employer] 06/17/22): For individuals with atherosclerotic cardiovascular disease (ASCVD)or LDL >zk=662 mg/dL, use a high-intensity statin (40-80 mg [...] MD CHEMISTRY ORDERAB LES [facility] [place] [address] * (ABNORMAL) Troponin (03/19/2024 5:25 AM EDT) Troponin-T, High Sensitivity 1,276(H) <=14 ng/L [facility] Comment: This [...] troponin value can be found in the [facility] Test Catalog Troponin - [facility] Test Catalog Reference: Fourth [place] Definition of Myocardial Infarction. Journal of the [place] [employer] 2018;72:3619-4219 Blood 03/19/2024 5:25 AM EDT 03/19/2024 5:34 AM EDT Narrative Resulting Agency Comment Spec In Lab Ganesh Nguyen MD CHEMISTRY ORDERAB LES Performing Organization Address [facility] Co de Phone Number [facility] [place] [address] * APTT (03/19/2024 5:25 AM EDT) Partial Thromboplastin Time 29 25 - 37 sec [facility] [...] MD HEMATOLOGY ORDERA BLES Performing Organization Address [facility] Co de Phone Number [facility] [place] [address] * Prothrombin Time (03/19/2024 5:25 AM EDT) Prothrombin Time 10.9 9.4 - 12.5 sec [facility] International Normalization Ratio 1.0 [facility] Comment: An INR <2.0 indicates [...] In Lab Ganesh Nguyen MD HEMATOLOGY ORDERA QUE [facility] [place] [address] * (ABNORMAL) Comprehensive metabolic panel (non-fasting) (03/19/2024 5:25 AM EDT) Glucose 181 65 - 199 mg/dL [facility] Comment:Diabetes: >=200 mg/d L plus symptoms Blood Urea Nitrogen 14 8 - 18 mg/dL [facility] [...] 98 - 107 mmol/L [facility] Carbon Dioxide 22 22 - 31 mmol/L [facility] Anion Gap 15 5 - 15 mmol/L [facility] Calcium 8.7 8.5 - 10.5 mg/dL [facility] Protein, Total 7.2 6.1 - 8.0 g/dL [facility] Albumin 4.5 3.2 - 5.2 g/dL [facility] Aspartate Aminotransferase 95(H) 0 - 30 unit/L [facility] Comment:result rechecked-bz Alanine Aminotransferase 31(H) 0 - 30 unit/L [facility] Alkaline Phosphatase 70 35 - 105 unit/L [facility] Bilirubin, Total 0.5 0.2 - 1.3 mg/dL [facility] Est Glomerular Filtration Rate 72 >=60 mL/min/1. 73 m?? [facility] [...] MD CHEMISTRY ORDERAB LES Performing Organization Address City/[facility]/ZIP Co de Phone Number [facility] [place] [address] * EKG 12 Lead (03/19/2024 2:23 AM EDT) Ventricular rate 67 BPM MUSE SYSTEM Atrial Rate 67 BPM MUSE SYSTEM P-R Interval 152 ms MUSE SYSTEM QRS Duration 78 ms MUSE SYSTEM Q-T Interval 500 ms MUSE SYSTEM QTC Calculated (Bezet) 528 ms MUSE SYSTEM Calculated P Irving 54 degrees MUSE SYSTEM Calculated R Irving 56 degrees MUSE SYSTEM Calculated T Irving 31 degrees MUSE SYSTEM INTERPRETATION Normal sinus rhythm Prolonged QT Abnormal ECG No previous ECGs available Confirmed by MD Ambrosio David ([id number]) on 03/23/2024 8:10:32 AM MUSE SYSTEM 03/19/2024 2:23 AM EDT 03/23/2024 8:10 AM EDT Ganesh Nguyen MD ECG ORDERABLES Performing Organization Address City/[facility]/ZIP Co de Phone Number MUSE SYSTEM * (ABNORMAL) Differential, Automated (03/19/2024 2:20 AM EDT) Neutrophil % 89.8 % [facility] Neutrophil Absolute 15.44(H) 1.70 - 6.10 x10(3)/[facility] Lymph % 6.4 % [facility] Lymphocytes Abs 1.1 0.9 - 3.2 x10(3)/[facility] Monocyte % 2.9 % [facility] Monocyte Abs 0.5 0.3 - 0.9 x10(3)/[facility] Eos % 0.1 % [facility] Eosinophils Abs 0.0 0.0 - 0.4 x10(3)/[facility] Basophil % 0.3 % [facility] Baso Absolute 0.0 0.0 - 0.1 x10(3)/[facility] Immature Gran % 0.50 % [facility] Comment: Immature granulocytes(IG's)percentage and absolute count will include metamyelocytes, myelocytes, and promyelocytes. Blood smears from CBCs yielding IG's will be scanned manually for concordance. If this scan disagrees with the automated IG or if promyelocytes are noted, a manual differential will be performed. Immature Gran Absolute 0.08(H) 0.00 - 0.04 x10(3)/[facility] Blood 03/19/2024 2:20 AM EDT 03/19/2024 2:59 AM EDT Narrative Resulting Agency Comment Spec In Lab Ganesh Nguyen MD HEMATOLOGY ORDERA BLES [facility] [place] [address] * (ABNORMAL) Hemogram (03/19/2024 2:20 AM EDT) White Blood Cell 17.2(H) 4.0 - 9.5 x10(3)/[facility] Red Blood Cell 4.70 4.00 - 5.21 x10(6)/[facility] Hemoglobin 13.3 11.7 - 15.5 g/dL [facility] Hematocrit 38.7 35.7 - 45.8 % [facility] Mean Cell Volume 82.3(L) 82.6 - 94.4 fL [facility] Mean Cell Hemoglobin 28.3 27.1 - 32.0 pg [facility] Mean Cell Hemoglobin Concentration 34.4 31.7 - 35.0 g/dL [facility] Platelet 281 145 - 357 x10(3)/mc L [facility] RDW Standard Deviation 41.0 37.0 - 46.0 fL [facility] RDW coefficient of variation 13.7 11.5 - 14.1 % [facility] Mean Platelet Volume 9.7 7.6 - 12.9 fL [facility] NRBC% auto 0.0 % [facility] NRBC Absolute 0.000 0.000 - 0.000 x10(3)/mc L [facility] Blood 03/19/2024 2:20 AM EDT 03/19/2024 2:59 AM EDT Narrative Resulting Agency Comment Spec In Lab Ganesh Nguyen MD HEMATOLOGY ORDERA BLES [facility] [place] [address] * (ABNORMAL) Troponin (03/19/2024 2:20 AM EDT) Troponin-T, High Sensitivity 960(H) <=14 ng/L [facility] Comment: This [...] troponin value can be found in the [facility] Test Catalog Troponin - [facility] Test Catalog Reference: Fourth [place] Definition of Myocardial Infarction. Journal of the [place] [employer] 2018;72:4704-7856 Blood 03/19/2024 2:20 AM EDT 03/19/2024 2:59 AM EDT Narrative Resulting Agency Comment Spec In Lab Ganesh Nguyen MD CHEMISTRY ORDERAB LES Performing Organization Address [facility] Co de Phone Number [facility] [place] [address] * (ABNORMAL) APTT (03/19/2024 2:20 AM EDT) Partial Thromboplastin Time 123(Criti lewis) 25 - 37 sec [facility] Comment: Critical Result called by [...] MD HEMATOLOGY ORDERA BLES Performing Organization Address [facility] Co de Phone Number [facility] [place] [address] * Prothrombin Time (03/19/2024 2:20 AM EDT) Prothrombin Time 11.7 9.4 - 12.5 sec [facility] International Normalization Ratio 1.0 [facility] Comment: An INR <2.0 indicates [...] MD HEMATOLOGY ORDERA BLES Performing Organization Address [facility] Co de Phone Number [facility] [place] [address] * (ABNORMAL) Hepatic Function Panel (03/19/2024 2:20 AM EDT) Protein, Total 6.7 6.1 - 8.0 g/dL [facility] Albumin 4.3 3.2 - 5.2 g/dL [facility] Aspartate Aminotransferase 49(H) 0 - 30 unit/L [facility] Alanine Aminotransferase 26 0 - 30 unit/L [facility] Alkaline Phosphatase 67 35 - 105 unit/L [facility] Bilirubin, Total 0.4 0.2 - 1.3 mg/dL [facility] Bilirubin, Direct 0.1 0.0 - 0.3 mg/dL [facility] Blood 03/19/2024 2:20 AM EDT 03/19/2024 2:59 AM EDT Narrative Resulting Agency Comment Spec In Lab Ganesh Nguyen MD CHEMISTRY ORDERAB LES Performing Organization Address [facility] Co de Phone Number [facility] [place] [address] * (ABNORMAL) pro-Brain Natriuretic Peptide (03/19/2024 2:20 AM EDT) Pathologist [facility] NT-proBNP 529(H) <=124 pg/mL [facility] Blood 03/19/2024 2:20 AM EDT 03/19/2024 2:59 AM EDT Narrative Resulting Agency Comment Spec In Lab Ganesh Nguyen MD CHEMISTRY ORDERAB LES Performing Organization Address City/[facility]/ZIP Co de Phone Number [facility] [place] [address] * Phosphorus (03/19/2024 2:20 AM EDT) [facility] Phosphorus 3.8 2.5 - 4.5 mg/dL [facility] Blood 03/19/2024 2:20 AM EDT 03/19/2024 2:59 AM EDT Narrative Resulting Agency Comment Spec In Lab Ganesh Nguyen MD CHEMISTRY ORDERAB LES Performing Organization Address [facility] Co de Phone Number [facility] [place] [address] * Magnesium (03/19/2024 2:20 AM EDT) [facility] Magnesium 0.71 0.69 - 1.07 mmol/L [facility] Blood 03/19/2024 2:20 AM EDT 03/19/2024 2:59 AM EDT Narrative Resulting Agency Comment Spec In Lab Ganesh Nguyen MD CHEMISTRY ORDERAB LES Performing Organization Address City/[facility]/ZIP Co de Phone Number [facility] [place] [address] * (ABNORMAL) Basic Metabolic Panel (non-fasting) (03/19/2024 2:20 AM EDT) [facility] Glucose 160 65 - 199 mg/dL [facility] Comment:Diabetes: >=200 mg/d L plus symptoms Blood Urea Nitrogen 14 8 - 18 mg/dL [facility] Creatinine 0.88 0.70 - 1.20 mg/dL [facility] Sodium 137 135 - 145 mmol/L [facility] Potassium 3.9 3.5 - 5.0 mmol/L [facility] Comment: Please note: ??Patients with WBC >100,000 may have falsely elevated Potassium levels. ??For accurate Potassium quantification in these patients send serum separator tube (gold top) for subsequent determinations. ??Contact the Clinical Chemistry Laboratory if there are any questions. Chloride 100 98 - 107 mmol/L [facility] Carbon Dioxide 20(L) 22 - 31 mmol/L [facility] Anion Gap 17(H) 5 - 15 mmol/L [facility] Calcium 8.2(L) 8.5 - 10.5 mg/dL [facility] Est Glomerular Filtration Rate 75 >=60 mL/min/1. 73 m?? [facility] [...] MD CHEMISTRY ORDERAB LES [facility] [place] [address] * (ABNORMAL) Point of Care Blood Gas Historical (03/19/2024 1:41 AM EDT) pH, POC 7.28(Criti lewis) 7.35 - 7.45 [facility] pCO2, POC 40 35 - 45 mmHg [facility] pO2, POC 84(L) 85 - 104 mmHg [facility] Base Excess, POC -8.0(L) -3.0 - 3.0 mmol/L [facility] Bicarbonate, POC 18.6(L) 20.0 - 26.0 mmol/L [facility] Carbon Dioxide, POC 20(L) 22 - 31 mmol/L [facility] Sodium, POC 134(L) 135 - 145 mmol/L [facility] POC Potassium 3.4(L) 3.5 - 5.0 mmol/L [facility] Ionized Calcium, POC 1.09(L) 1.15 - 1.33 mmol/L [facility] POC Hematocrit 38.0 34.0 - 45.0 % [facility] Calc Hgb 12.9 11.2 - 15.7 g/dL [facility] Blood 03/19/2024 1:41 AM EDT 03/19/2024 1:41 AM EDT Kathryn Walker MD CHEMISTRY ORDERABL ES Performing Organization Address City/State/[facility] Co de Phone Number [facility] [place] [address] * CARDIAC CATHETERIZATION (03/19/2024 1:36 AM EDT) Anatomical Region Laterality Modality Other Narrative 03/19/2024 7:19 AM EDT ?[facility] ? Cardiac Catheterization/Intervention Report ? Patient Name: Isa Ro. ? Procedure Date: 03/19/2024 ? A #: [id number] ? Primary Physician: Kirill, Ramo S ? Case #: [id number] ? File Name: [id number] ? Catheterization Order Number: [id number] ? [facility] ? Final Report [place], [place] ? Patient Name: ? Isa A. Warnaar ? ID#: ?[id number] ? : ?1965 ? Procedure Date: ? March 19, 2024 ? Case #: ? [id number] ? Room: ? 6 ? Case Physician: [...] was ?designated as ASA Class IV. The [facility] clinical frailty scale is 3: ?Managing Well. [...] procedure was Emergent. The indication for ?the cardiac cath lab manager visit is ACS less than or equal [...] ?3.5 guiding catheter and a 3.5 Fr [place] 20 Mhz using auto 1 ?mm/sec pullback. [...] A premounted 3.00 x 08 mm Alberto Worth (JAHAIRA) was deployed ? with a maximum inflation pressure of 12 atmospheres. ? Another stent insertion was accomplished through a 6 Fr. EBU ? 3.5 guide. ??A premounted 2.00 x 08 mm [place] Worth (JAHAIRA) was ? deployed. ? The final [...] dose administered prior to arrival in the cardiac cath lab manager. ?Recommended anti-platelet/anti-thrombotic regimen: ?Start aspirin 81 mg daily now and continue for indefinitely. ?Start clopidogrel 75 mg daily now and continue for 12 months then stop. ?These recommendations are made at the time of the intervention. Patient ?and provider preferences or a changing clinical situation may require ?modification of this regimen. Consult [facility] Interventional Cardiology for ?questions. ?The [...] any medical treatment. Consult ?http://tools.acc.org/DAPTriskapp/#!/content/calculator/ or [facility] ?Interventional Cardiology for questions ? [...] coronary, stent insertion-coronary and ABG. ? Ramo oRy M.D. ? Electronically Signed by: Ramo Roy M.D. ? Report Finalized: 03/19/2024 ??01:56 ? Report Last Ammended: 03/21/2024 ??09:37 ? Procedure Note Ramo Roy MD - 03/21/2024 [facility] Cardiac Catheterization/Intervention Report Patient Name: Isa Ro Procedure Date: 03/19/2024 A #: [id number] Primary Physician: Ramo Roy Case #: [id number] File Name: [id number] Catheterization Order Number: [id number] [facility] FinalReport [place], [place] Patient Name: Isa Ro ID#:[id number] :1965 Procedure Date: March 19, 2024 Case [...] patientwas designated as ASA Class IV. The [facility] clinical frailty scale is 3: Managing Well. Diagnostic Tests: Prior Coronary Angiography: Prior coronary angiography was performed on 12/15/2014. Electrocardiography: EKG was assessed by ECG. EKG was Abnormal. EKG showed STDeviation >= 0.5 mm and other abnormality. Medications Prior to Procedure: Aspirin. Indications for Diagnostic Cath: The priority of the diagnostic procedure was Emergent. Theindication for the cardiac cath lab manager visit is ACS less than or equal [...] 3.5 guiding catheter and a 3.5 Fr [place] 20 Mhz usingauto 1 mm/sec pullback. Imaging [...] The priority for the procedure was Emergent.[facility] for the procedure was STEMI-Immediate [...] The lesion was predilated with a 2.50mm KAMYRIT66 MM balloon with a maximum inflation pressure of 14atmospheres. A premounted 3.00 x 08 mm [place] (JAHAIRA) wasdeployed with a maximum inflation pressure of 12 atmospheres. Another stent insertion was accomplished through a 6 Fr.EBU 3.5 guide. A premounted 2.00 x 08 mm Alberto Worth (JAHAIRA)was deployed. The final outcome was defined [...] dose administered prior to arrival in the cardiac cath lab manager. Recommended anti-platelet/anti-thrombotic regimen: Start aspirin 81 mg daily now and continue for indefinitely. Start clopidogrel 75 mg daily now and continue for 12 months thenstop. These recommendations are made at the time of the intervention.Patient and provider preferences or a changing clinical situation mayrequire modification of this regimen. Consult [facility] Interventional Cardiologyfor questions. The 1 [...] against any medical treatment.Consult http://tools.acc.org/DAPTriskapp/#!/content/calculator/ or [facility] Interventional Cardiology for questions Conclusions: [...] 01:56 Report Last Ammended: 03/21/2024 09:37 Ramo Ryo MD CARDIAC CATH ORDERAB LES * (ABNORMAL) Point of Care Blood Gas Historical (03/19/2024 1:26 AM EDT) pH, POC 7.20(Criti lewis) 7.35 - 7.45 [facility] pCO2, POC 38 35 - 45 mmHg [facility] pO2, POC 74(L) 85 - 104 mmHg [facility] Base Excess, POC -14.0(L) -3.0 - 3.0 mmol/L [facility] Bicarbonate, POC 14.5(L) 20.0 - 26.0 mmol/L [facility] Carbon Dioxide, POC 16(L) 22 - 31 mmol/L [facility] Sodium, POC 116(Critic al) 135 - 145 mmol/L [facility] POC Potassium 3.1(L) 3.5 - 5.0 mmol/L [facility] Ionized Calcium, POC 1.04(L) 1.15 - 1.33 mmol/L [facility] POC Hematocrit 39.0 34.0 - 45.0 % [facility] POC Calc Hgb 13.3 11.2 - 15.7 g/dL [facility] Blood 03/19/2024 1:26 AM EDT 03/19/2024 1:26 AM EDT Kathryn Walker MD CHEMISTRY ORDERABL ES Performing Organization Address City/State/[facility] Co de Phone Number [facility] [place] [address] documented in this encounter Visit Diagnoses Diagnosis [...] 2 g, Intravenous, ONCE, 1 dose, On Thu03/19/24 at 0800, Administer over 120 Minutes New [...] 250 mL infusion CONTINUOUS PRN, Starting on Thu03/19/24 at 0109, Until Thu03/19/24 at 1543, Intra-Operative (Intra-Procedure), Routine Restarted 03/19/2024 11:45 AM EDT 50 mcg/min 15 mL/hr Rate/Dose Change 03/19/2024 10:02 AM EDT 25 mcg/min 7.5 mL /hr Rate/Dose Verify 03/19/2024 6:00 AM EDT 15 mL/h r nitroGLYcerin (Nitrostat) disintegrating tablet 0.4 mg 0.4 mg, Sublingual, EVERY 5 MIN PRN, Starting on Thu03/19/24 at 0210, Until Thu03/22/24 at 1411, Chest [...] Sykes RN) 0857 (Given - Provider: Lubna Cruz RN) heparin (porcine) (5,000 units/1 mL) subcutaneous [...] Loreta Lopez RN)2120 (Given - Provider: Javon Sykes, RN) 0840 (Given - Provider: Izaiah Jimenez, TOSHA)2100 (Given - Provider: Javon Sykes RN) 0858 (Given - Provider: Lubna Cruz, RN) ubiquinone (Coenzyme Q10) (Ubiquinone) capsule 50 mg 50 mg, Oral, DAILY, First dose on 03/19/24 at 1715, Until Discontinued, Routine 08 (Given - Provider: Loreta Lopez RN) 0836 (Given - Provider: Izaiah Jimenez, TOSHA) 0858 (Given - Provider: Lubna Cruz, RN) PRN Medication Order 03/20/2024 03/21/2024 03/22/2024 acetaminophen [...] - Provider: Loreta Lopez RN - Comment: headache)1538 (Given - Provider: Loreta Lopez RN - Comment: headache)2118 (Not Given - Provider: Javon Sykes RN - Reason: Patient/family refused - Comment: patient changed her mind after it was scanned) alum-mag hydroxide-simeth (Maalox) (40 mg-40 mg-4 mg/mL) oral liquid 10 mL 10 mL, Oral, 3 TIMES DAILY PRN, Starting on 03/20/24 at 1137, Until 03/22/24 at 1411, Heartburn, Routine magnesium sulfate 2 [...] Routine documented in this encounter Care Teams Plating Foreman Relationship Specialty Start Date End Date None None PCP - General 03/19/24 documented as of this encounter
--- OUTSIDE RECORDS SUMMARY | 2024-04-20 23:29 | XMS_ITS | Encounter Summary ---
Author Organization [facility] Address [address] [place] [address] Care Team Providers Care Manager Operations Research Name Role Phone Unavailable Primary Care Provider Unavailabl e Encounter Details Date Type Department Care Team (Late st Contact Info) Description 05/15/2010 Results Only [facility] - [facility] ([facility] [place] [place] [address], [place] [id number] Jake Sabillon FNP [address] [place], [place] [id number] Social History Tobacco Use Types Packs/Day Years [...] ? EZEQUIEL THOMAS ? Accession #: ? [id number] ? : ? 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
--- OUTSIDE RECORDS SUMMARY | 2024-04-20 23:29 | XMS_ITS | Encounter Summary ---
Author Organization [facility] Address [address] [place] [address] Care Team Providers Care Electrical Timing Device Calibrator Name Role Phone Unavailable Primary Care Provider Unavailabl e Encounter Details Date Type Department Care Team (Late st Contact Info) Description 12/31/2007 Results Only [facility] Women's Services - [address] [id number] Skip Alcocer MD [address] [place] [address], [address] [place] [address] Social History Tobacco Use Types [...] Results * AMNIOTIC FLUID/[facility] ANEUPLOIDY FISH (FOR X,Y,21,13,18)([place] #[id number]) (12/31/2007 16:34 EDT) Specimen (Note) Chorionic Villi Sample ? [facility] Specimen ID [id number] [facility] Order Date 01 Jan 2008 09:10 [facility] Method (Note) FISH analysis of 100 nuclei with probes for Xcen (DXZ1), ? Ycen (DYZ3), 13q14 (Rb1), 18cen (D18Z1) and 21q22 ([id number]). ? [facility] Reason For Referral [...] ? FISH results. ? The [employer] and the [place] ? [employer] recommend confirmation of ? abnormal diagnostic results at or ? termination, to the extent possible. ? DISCLAIMER: ??This test was developed and its performance ? characteristics determined by Laboratory Medicine and ? Pathology, [facility]. ??It has not been cleared ? or approved by the U.S. Food and Drug Administration. ??This ? FISH assay does not rule out other chromosome anomalies. ? Woody et al., [place] Clin Proc 73:132-137, 1998. ? [facility] Pecan Grower (Note) Eduardo Corey MD ? [facility] Report Date 03 Jan 2008 12:44 Performed or Referred by: [facility] Dpt of Lab Med and Path, [address] , [place] [address], Lab Dir: MD U[facility] Morgan III 12/31/2007 16:3 4 EDT 12/31/2007 16:34 EDT Skip Alcocer MD GEN LAB UNIT [place] ECT ORDERABLES [facility] [address] [place] [address] * [facility] CHROMOSOME ANALYSIS ([place] #[id number]) (12/31/2007 16:34 EDT) Specimen (Note) Chorionic Villi Sample ? [facility] Specimen ID [id number] [facility] Order Date 01 Jan [...] ? reported separately. ? [facility] Pecan Grower (Note) Manuel V N Velagakarlyi PhD ? [facility] Report Date 10 Jan 2008 16:27 Performed or Referred by: [facility] Dpt of Lab Med and Path, [address] , [place] [address], Lab Dir: MD URVASHI Morgan III Haploid Band Resolution 400Unit: bands [facility] Total Cells Analyzed 30 [facility] Total Cells Karyotyped 2 [facility] 12/31/2007 16:3 4 EDT 12/31/2007 16:34 EDT Skip Alcocer MD HEMATOLOGY & PF4 ORDERABLES [facility] [address] [place] [address] documented in this encounter Visit Diagnoses Not on filedocumented in this encounter
--- OUTSIDE RECORDS SUMMARY | 2024-04-20 23:29 | XMS_ITS | Clinical Summary ---
Author Organization [facility] Address [facility] [place] [address] Care Team Providers Care Library Supervisor Name Role Phone None Primary Care [...] Encounters Date Type Department Care Team Description 04/20/2024 [place] [address] Shamar Lehman MD 04/20/2024 [place] [address] 03/27/2024 Telephone Cardiology at [address] [phone] Fidel Yanes PA 03/19/2024 8:10 AM EDT - 03/19/2024 11:59 PM EDT Hospital Encounter [place] [address] Discharge Disposition: Home 03/19/2024 1:05 AM EDT - 03/19/2024 2:06 AM EDT [place] [address] Ramo Roy MD CARDIAC CATHETERIZATION 03/19/2024 12:37 AM EDT - 03/22/2024 12:10 PM EDT Hospital Encounter Heart and Vascular Unit Level 4 [place] [address] Min, MD Santi Vigil Xavier L, MD Ramachandra, Nayana, MD ST elevation myocardial infarction involving left anterior descending (LAD) coronary artery; Chest pain, unspecified type Discharge Disposition: Home 03/18/2024 11:37 PM EDT - 03/18/2024 11:59 PM EDT Hospital Encounter [place] [address] Destin Ambrosio MD Discharge Disposition: Home 03/18/2024 Telephone Cardiology at [address] [phone] Yusuf Herrera MD 03/18/2024 External [place] [address] from Last 3 Months Social History Tobacco Use Types Packs/Day Years Used Date Smoking Tobacco: Former Smokeless Tobacco: Never Alcohol Use Standard Drinks/Week Comments Yes 14 (1 standard drink = 0.6 oz pu re alcohol) [facility] Utilities Answer Date Recorded In the [...] in a custodial (including now)? No 03/21/2024 DH IPV Inpatient [...] Vascular Unit Level 3 [place] [address] Kiran Amador MD [facility] [address] 05/09/2024 10:40 AM EDT Office Visit Cardiology at [address] [phone] Herlinda Weaver PA [facility] [place] [address] Health Maintenance Due Date Last Done Comments [...] vaccine (1 of 2) 2014 Covid-19 Vaccine (1 - 2022-24 season) 2023 Influenza (Flu) vaccine (1 o f 1 - Influenza standard series) 05/15/2024 Procedures Procedure Name Priority Date/Time Associated Diagnosis Comments MISC EXTERNAL CARDIOLOGY RESULT Routine 04/20/2024 4:03 PM EDT SCAN DOC: TELEMETRY STRIPS 03/22/2024 11:38 AM [...] (LAD) coronary artery DIFFERENTIAL, AUTOMATED Routine 03/19/20 2:20 AM EDT HEMOGRAM Routine 03/19/2024 2:20 [...] EDT from Last 3 Months Results * External Cardiology Result (04/20/2024 4:03 PM EDT) Anatomical Region Laterality Modality Other Historical Provider MD ÁLVAREZ CARDIOLO GY RESULT * Scan Doc: Telemetry Strips (03/22/2024 11:38 [...] Cell 11.6(H) 4.0 - 9.5 x10(3)/mc L [facility] Red Blood Cell 4.80 4.00 - 5.21 x10(6)/mc L [facility] Hemoglobin 13.5 11.7 - 15.5 g/dL [facility] Hematocrit 40.3 35.7 - 45.8 % [facility] Mean Cell Volume 84.0 82.6 - 94.[address] [facility] Mean Cell Hemoglobin 28.1 27.1 - 32.[address] [facility] Mean Cell Hemoglobin Concentration 33.5 31.7 - 35.0 g/dL [facility] Platelet 232 145 - 357 x10(3)/mc L [facility] RDW Standard Deviation 42.2 37.0 - 46.[address] [facility] RDW coefficient of variation 13.5 11.5 - 14.1 % [facility] Mean Platelet Volume 9.7 7.6 - 12.[address] [facility] NRBC% auto 0.0 % [facility] NRBC Absolute 0.000 0.000 - 0.000 x10(3)/ L [facility] Blood 03/22/2024 5:06 AM EDT 03/22/2024 5:12 AM EDT Narrative Resulting Agency Comment Spec In Lab Horace Hancock MD HEMATOLOGY ORDERABLE S [facility] [place] [address] * (ABNORMAL) Differential, Automated (03/22/2024 5:06 AM EDT) Only the most recent of5 resultswithin the time period is included. Neutrophil % 71.6 % [facility] Neutrophil Absolute 8.34(H) 1.70 - 6.10 x10(3)/ L [facility] Lymph % 17.4 % [facility] Lymphocytes Abs 2.0 0.9 - 3.2 x10(3)/ L [facility] Monocyte % 8.2 % [facility] Monocyte Abs 1.0(H) 0.3 - 0.9 x10(3)/ L [facility] Eos % 2.2 % [facility] Eosinophils Abs 0.3 0.0 - 0.4 x10(3)/ L [facility] Basophil % 0.3 % [facility] Baso Absolute 0.0 0.0 - 0.1 x10(3)/ L [facility] Immature Gran % 0.30 % [facility] Comment: Immature granulocytes(IG's)percentage and absolute count will include metamyelocytes, myelocytes, and promyelocytes. Blood smears from CBCs yielding IG's will be scanned manually for concordance. If this scan disagrees with the automated IG or if promyelocytes are noted, a manual differential will be performed. Immature Gran Absolute 0.03 0.00 - 0.04 x10(3)/ L [facility] Blood 03/22/2024 5:06 AM EDT 03/22/2024 5:12 AM EDT Narrative Resulting Agency Comment Spec In Lab Horace Hancock MD HEMATOLOGY ORDERABLE S Performing Organization Address City/[facility] [address]/ZIP Co de Phone Number [facility] [place] [address] * Magnesium (03/22/2024 5:06 AM EDT) Only the most recent of5 resultswithin the time period is included. Magnesium 0.90 0.69 - 1.07 mmol/L [facility] Blood 03/22/2024 5:06 AM EDT 03/22/2024 5:12 AM EDT Narrative Resulting Agency Comment Spec In Lab Destin Ambrosio MD CHEMISTRY ORDERABLES Performing Organization Address City/[facility] [address]/ZIP Co de Phone Number [facility] [place] [address] * Basic Metabolic Panel (non-fasting) (03/22/2024 5:06 AM EDT) Only the most recent of4 resultswithin the time period is included. Glucose 107 65 - 199 mg/dL [facility] Comment:Diabetes: >=200 mg/d L plus symptoms Blood Urea Nitrogen 18 8 - 18 mg/dL [facility] Creatinine 0.87 0.70 - 1.20 mg/dL [facility] Sodium 138 135 - 145 mmol/L [facility] Potassium 4.1 3.5 - 5.0 mmol/L [facility] Comment: Please note: ??Patients with WBC >100,000 may have falsely elevated Potassium levels. ??For accurate Potassium quantification in these patients send serum separator tube (gold top) for subsequent determinations. ??Contact the Clinical Chemistry Laboratory if there are any questions. Chloride 104 98 - 107 mmol/L [facility] Carbon Dioxide 24 22 - 31 mmol/L [facility] Anion Gap 10 5 - 15 mmol/L [facility] Calcium 9.2 8.5 - 10.5 mg/dL [facility] Est Glomerular Filtration Rate 76 >=60 mL/min/1. 73 m?? [facility] Comment: This patient's estimated GFR [...] In Lab Horace Hancock MD CHEMISTRY ORDERABLES [facility] [place] [address] * Metanephrines, Fractionated Free, plasma (03/21/2024 2:57 AM EDT) Normetanephrine, Free (JANUARY) 0.47 <0.90 nmol/L [facility] Comment: Test Performed by: [facility] [address] [place] [id number] Commercial Development Manager: Chasity Hernandez Ph.D.; CLIA# [id number] Metanephrine, Free (MAY) <0.20 <0.50 nmol/L [facility] Comment: ADDITIONAL INFORMATION This test was developed and its performance characteristics determined by [facility] in a manner consistent with CLIA requirements. This test has not been cleared or approved by the U.S. Food and Drug Administration. Test Performed by: [facility] [address] [place] [address] Commercial Development Manager: Chasity Hernandez Ph.D.; CLIA# [id number] Blood 03/21/2024 2:57 AM EDT 03/21/2024 11:29 AM EDT Narrative Resulting Agency Comment Spec In Lab Hroace Hancock MD LAB SEND OUT ORDERAB LES Performing Organization Address City/[facility] [address]/ZIP Co de Phone Number [facility] [place] [address] * Iron and TIBC (03/20/2024 10:38 AM EDT) [facility] Iron 57 30 - 150 mcg/dL [facility] TIBC 278 250 - 450 mcg/dL [facility] Iron Saturation 21 20 - 50 % [facility] Blood Venous Draw / Unknown 03/20/2024 10:38 AM EDT 03/20/2024 10:52 AM EDT Narrative Resulting Agency Comment Spec In Lab Horace Hancock MD CHEMISTRY ORDERABLES Performing Organization Address [facility] [address]/[facility] Co de Phone Number [facility] [place] [address] * (ABNORMAL) Troponin (03/19/2024 11:01 PM EDT) Only the most recent of5 resultswithin the time period is included. [facility] Troponin-T, High Sensitivity 2,406(H) <=14 ng/L [facility] Comment: This patient's troponin T [...] troponin value can be found in the [facility] Test Catalog Troponin - [facility] Test Catalog Reference: [place] Definition of Myocardial Infarction. Journal of the [place] [employer] 2018;72:2559-7069 Blood 03/19/2024 11:0 1 PM EDT 03/19/2024 11:05 PM EDT Narrative Resulting Agency Comment Spec In Lab Franky Mead MD CHEMISTRY ORDERABLE S Performing Organization Address City/[facility] [address]/[facility] Co de Phone Number [facility] [place] [address] * EKG 12 Lead (03/19/2024 8:32 PM EDT) Only the most recent of3 resultswithin the time period is included. Ventricular rate 70 BPM MUSE SYSTEM Atrial Rate 70 BPM MUSE SYSTEM P-R Interval 158 ms MUSE SYSTEM QRS Duration 78 ms MUSE SYSTEM Q-T Interval 470 ms MUSE SYSTEM QTC Calculated (Bezet) 507 ms MUSE SYSTEM Calculated P Brumley 62 degrees MUSE SYSTEM Calculated R Brumley 42 degrees MUSE SYSTEM Calculated T Brumley -158 degrees MUSE SYSTEM INTERPRETATION Normal sinus rhythm Poor R wave progression T wave abnormality, consider lateral ischemia Prolonged QT Abnormal ECG When compared with ECG of 19-MAR-2024 17:27, No significant change was found Confirmed by MD Ambrosio David ([id number]) on 03/23/2024 8:10:58 AM MUSE SYSTEM 03/19/2024 8:32 PM EDT 03/23/2024 8:10 AM EDT Franky Mead MD ECG ORDERABLES Performing Organization Address [facility] Co de Phone Number MUSE SYSTEM * ECHO COMPLETE W CONTRAST (03/19/2024 10:53 AM EDT) Anatomical Region Laterality Modality Cardiac Other 03/19/2024 9:03 AM EDT Narrative 03/19/2024 12:12 PM EDT [address] [place] [address] ? Echocardiogram Report Name: ANNESAMANTHAISAIELADIOA Chuy ?Study Date: 03/19/2024 09:03 AMBP: 129/68 mmHg ? Patient Location: 4A : 1965 ? Height: 158 cm ? Account: [id number] Age: 59 yrs ? Weight: 57 kg Gender: Female ?BSA: 1.6 m2 Ordering Physician: GANESH NGUYEN Referring Physician: GAENSH NGUYEN Performed By: PEREZ Carlos Reason For Study: STEMI involving LAD Exam Location: [facility]. Interpretation Summary Normal left ventricle size with mildly reduced LV function. LV ejection fraction 49%. LAD territory wall motion abnormality, predominantly involving the LV apex. No LV thrombus visualized with echo contrast. Normal right ventricle. No significant valvular abnormalities. Compared with prior echo dated 08/28/23, LV function has now decreased and new wall motion abnormalities. Procedure Complete-[id number]. Image enhancement Definity was used for left [...] Note Destin Ambrosio MD - 03/19/2024 [address] [place] [address] Echocardiogram Report Name: ANNEISA GREEN Study Date: 409:03 AMBP: 129/68 mmHg Patient Location: : 1965 Height: 158 cm Account: [id number] Age: 59 yrs Weight: 57 kg Gender: Female BSA: 1.6 m2 Ordering Physician: GANESH NGUYEN Referring Physician: GANESH NGUYEN Performed By: PEREZ Carlos Reason For Study: STEMI involving LAD Exam Location: [facility]. Interpretation Summary Normal left ventricle size with mildly reduced LV function. LV ejectionfraction 49%. LAD territory wall motion abnormality, predominantly involving the LVapex. No LV thrombus visualized with echo contrast. Normal right ventricle. No significant valvular abnormalities. Compared with prior echo dated 08/28/23, LV function has now decreased andnew wall motion abnormalities. Procedure Complete-[id number]. Image enhancement Definity was used for left [...] View (03/19/2024 8:37 AM EDT) WORKSTATION ID [id number] RAD Anatomical Region Laterality Modality Chest N/A [...] have questions please contact the health manager wound care that requested your imaging first. ? [...] who have questions please contactthe health manager wound care that requested your imaging first. Delores Jett MD IMG DX ORDERABLES * APTT (03/19/2024 5:25 AM EDT) Only the most recent of2 resultswithin the time period is included. Partial Thromboplastin Time 29 25 - [address] [facility] Comment: The PTT is NOT appropriate for heparin monitoring. Use the Anti-Xa level for heparin monitoring (HEP UFH) or LMWH monitoring (HEP LMW). A PTT less than 37 seconds generally indicates adequate hemostasis. Blood 03/19/2024 5:25 AM EDT 03/19/2024 5:34 AM EDT Narrative Resulting Agency Comment Spec In Lab Ganesh Nguyen MD HEMATOLOGY ORDERA BLES [facility] [place] [address] * Prothrombin Time (03/19/2024 5:25 AM EDT) Only the most recent of2 resultswithin the time period is included. Prothrombin Time 10.9 9.4 - 12.[address] [facility] International Normalization Ratio 1.0 [facility] Comment: An [...] ORDERA BLES Performing Organization Address [facility] Co de Phone Number [facility] [place] [address] * Hemoglobin A1c (03/19/2024 5:25 AM EDT) Hemoglobin A1c 5.6 4.3 - 5.6 % [facility] Comment: Reference Range: 4.3 - [...] Mellitus, Diabetes Care 2013; 36: Suppl. 1, S67-02 Estimated Average Glucose 114 mg/dL [facility] Blood Venous Draw / Unknown 03/19/2024 5:25 AM EDT 03/19/2024 3:52 PM EDT Narrative Resulting Agency Comment Spec In Lab Horace Hancock MD CHEMISTRY ORDERABLES Performing Organization Address [facility] Co de Phone Number [facility] [place] [address] * Lipid Panel (Reflex Direct LDL) (03/19/2024 5:25 AM EDT) Cholesterol, Total 324 mg/dL [facility] Comment: Desirable: ? <200 mg/dL Borderline High: 200-239 mg/dL Higher: ?>le=188 mg/dL Triglyceride 200 mg/dL [facility] Comment: Normal: ?<150 mg/dL Borderline High: 150-199 mg/dL High: ?200-499 mg/dL Very High: ? >xk=909 mg/dL HDL Cholesterol 68 mg/dL [facility] Comment: Females: High Risk: <50 mg/dL Males: High Risk: <40 mg/dL LDL Cholesterol 216 mg/dL [facility] Comment: Desirable: ? <100 mg/dL Above Desirable: 100-129 mg/dL Borderline High: 130-159 mg/dL High: ?160-189 mg/dL Very High: ? >gw=966 mg/dL Lipid Interpretation See Note [facility] Comment: It is important to [...] ACC/AHA Guidelines (most recently Jw et al. [facility] 06/17/22): For individuals with atherosclerotic cardiovascular disease (ASCVD)or LDL >gd=833 mg/dL, use a high-intensity statin (40-80 mg [...] Lab Ganesh Nguyen MD CHEMISTRY ORDERAB LES [facility] [place] [address] * (ABNORMAL) Comprehensive metabolic panel (non-fasting) (03/19/2024 5:25 AM EDT) Glucose 181 65 - 199 mg/dL [facility] Comment:Diabetes: >=200 mg/d L plus symptoms Blood Urea Nitrogen 14 8 - 18 mg/dL [facility] Creatinine 0.91 0.70 - 1.20 mg/dL [facility] Sodium 137 135 - 145 mmol/L [facility] Potassium 4.2 3.5 - 5.0 mmol/L [facility] Comment: Please note: ??Patients with WBC >100,000 may have falsely elevated Potassium levels. ??For accurate Potassium quantification in these patients send serum separator tube (gold top) for subsequent determinations. ??Contact the Clinical Chemistry Laboratory if there are any questions. Chloride 100 98 - 107 mmol/L [facility] Carbon Dioxide 22 22 - 31 mmol/L [facility] Anion Gap 15 5 - 15 mmol/L [facility] Calcium 8.7 8.5 - 10.5 mg/dL [facility] Protein, Total 7.2 6.1 - 8.0 g/dL [facility] Albumin 4.5 3.2 - 5.2 g/dL [facility] Aspartate Aminotransferase 95(H) 0 - 30 unit/L [facility] Comment:result rechecked-bz Alanine Aminotransferase 31(H) 0 - 30 unit/L [facility] Alkaline Phosphatase 70 35 - 105 unit/L [facility] Bilirubin, Total 0.5 0.2 - 1.3 mg/dL [facility] Est Glomerular Filtration Rate 72 >=60 mL/min/1. 73 m?? [facility] Comment: This patient's estimated GFR [...] Performing Organization Address City/[facility] [address]/ZIP Co de Phone Number [facility] [place] [address] * Phosphorus (03/19/2024 2:20 AM EDT) Phosphorus 3.8 2.5 - 4.5 mg/dL [facility] Blood 03/19/2024 2:20 AM EDT 03/19/2024 2:59 AM EDT Narrative Resulting Agency Comment Spec In Lab Ganesh Nguyen MD CHEMISTRY ORDERAB LES Performing Organization Address City/[facility] [address]/[facility] Co de Phone Number [facility] [place] [address] * (ABNORMAL) pro-Brain Natriuretic Peptide (03/19/2024 2:20 AM EDT) [facility] NT-proBNP 529(H) <=124 pg/mL [facility] Blood 03/19/2024 2:20 AM EDT 03/19/2024 2:59 AM EDT Narrative Resulting Agency Comment Spec In Lab Ganesh Nguyen MD CHEMISTRY ORDERAB LES Performing Organization Address [facility] [address]/[facility] Co de Phone Number [facility] [place] [address] * (ABNORMAL) Hepatic Function Panel (03/19/2024 2:20 AM EDT) [facility] Protein, Total 6.7 6.1 - 8.0 g/dL [facility] Albumin 4.3 3.2 - 5.2 g/dL [facility] Aspartate Aminotransferase 49(H) 0 - 30 unit/L [facility] Alanine Aminotransferase 26 0 - 30 unit/L [facility] Alkaline Phosphatase 67 35 - 105 unit/L [facility] Bilirubin, Total 0.4 0.2 - 1.3 mg/dL [facility] Bilirubin, Direct 0.1 0.0 - 0.3 mg/dL [facility] Blood 03/19/2024 2:20 AM EDT 03/19/2024 2:59 AM EDT Narrative Resulting Agency Comment Spec In Lab Ganesh Nguyen MD CHEMISTRY ORDERAB LES Performing Organization Address [facility] [address]/[facility] Co de Phone Number [facility] [place] [address] * (ABNORMAL) Point of Care Blood Gas Historical (03/19/2024 1:41 AM EDT) Only the most recent of2 resultswithin the time period is included. pH, POC 7.28(Criti lewis) 7.35 - 7.45 [facility] pCO2, POC 40 35 - [address] [facility] pO2, POC 84(L) 85 - [address] [facility] Base Excess, POC -8.0(L) -3.0 - 3.0 mmol/L [facility] Bicarbonate, POC 18.6(L) 20.0 - 26.0 mmol/L [facility] Carbon Dioxide, POC 20(L) 22 - 31 mmol/L [facility] Sodium, POC 134(L) 135 - 145 mmol/L [facility] POC Potassium 3.4(L) 3.5 - 5.0 mmol/L [facility] Ionized Calcium, POC 1.09(L) 1.15 - 1.33 mmol/L [facility] POC Hematocrit 38.0 34.0 - 45.0 % [facility] POC Calc Hgb 12.9 11.2 - 15.7 g/dL [facility] Blood 03/19/2024 1:41 AM EDT 03/19/2024 1:41 AM EDT Kathryn Walker MD CHEMISTRY ORDERABL ES Performing Organization Address City/State/[facility] Co de Phone Number [facility] [place] [address] * CARDIAC CATHETERIZATION (03/19/2024 1:36 AM EDT) Anatomical Region Laterality Modality Other Narrative 03/19/2024 7:19 AM EDT ?[facility] ? Cardiac Catheterization/Intervention Report ? Patient Name: Warnaar, Isa A. ? Procedure Date: 03/19/2024 ? A #: [id number] ? Primary Physician: Kirill, Ramo S ? Case #: [id number] ? File Name: [id number] ? Catheterization Order Number: [id number] ? [facility] ? Final Report [place], [place] ? Patient Name: ? Isa A. Warnaar ? ID#: ?[id number] ? : ?1965 ? Procedure Date: ? March 19, 2024 ? Case #: ? [id number] ? Room: ? 6 ? Case Physician: [...] was ?designated as ASA Class IV. The [facility] clinical frailty scale is 3: ?Managing [...] procedure was Emergent. The indication for ?the hospital laboratory technician visit is ACS less than [...] ?3.5 guiding catheter and a 3.5 Fr Stebbins Eye Native 20 Mhz using auto 1 ?mm/sec pullback. [...] ? A premounted 3.00 x 08 mm [place] (JAHAIRA) was deployed ? with a maximum inflation pressure of 12 atmospheres. ? Another stent insertion was accomplished through a 6 Fr. EBU ? 3.5 guide. ??A premounted 2.00 x 08 mm [place] (JAHAIRA) was ? deployed. ? The final [...] dose administered prior to arrival in the hospital laboratory technician. ?Recommended anti-platelet/anti-thrombotic regimen: ?Start aspirin 81 mg daily now and continue for indefinitely. ?Start clopidogrel 75 mg daily now and continue for 12 months then stop. ?These recommendations are made at the time of the intervention. Patient ?and provider preferences or a changing clinical situation may require ?modification of this regimen. Consult [facility] Interventional [facility] for ?questions. ?The 1 year [...] any medical treatment. Consult ?http://tools.acc.org/DAPTriskapp/#!/content/calculator/ or [facility] ?Interventional Cardiology for questions ? Conclusions: ?* [...] Procedure Note Ramo Roy MD - 03/21/2024 [facility] Cardiac Catheterization/Intervention Report Patient Name: Isa RoPantera Procedure Date: 03/19/2024 A #: [id number] Primary Physician: Ramo Roy Case #: [id number] File Name: [id number] Catheterization Order Number: [id number] [facility] FinalReport [place], [place] Patient Name: Isa Ro ID#:[id number] :1965 Procedure Date: March 19, 2024 Case [...] designated as ASA Class IV. The [facility] clinical frailty scale is 3: Managing Well. Diagnostic Tests: Prior Coronary Angiography: Prior coronary angiography was performed on 12/15/2014. Electrocardiography: EKG was assessed by ECG. EKG was Abnormal. EKG showed STDeviation >= 0.5 mm and other abnormality. Medications Prior to Procedure: Aspirin. Indications for Diagnostic Cath: The priority of the diagnostic procedure was Emergent. Theindication for the hospital laboratory technician visit is ACS less than [...] 3.5 guiding catheter and a 3.5 Fr Stebbins Eye Native 20 Mhz usingauto 1 mm/sec pullback. Imaging [...] The priority for the procedure was Emergent.[facility] for the procedure was STEMI-Immediate [...] The lesion was predilated with a 2.50mm [id number] balloon with a maximum inflation pressure of 14atmospheres. A premounted 3.00 x 08 mm Alberto [place] (JAHAIRA) wasdeployed with a maximum inflation pressure of 12 atmospheres. Another stent insertion was accomplished through a 6 Fr.EBU 3.5 guide. A premounted 2.00 x 08 mm [place] (JAHAIRA)was deployed. The final outcome was defined [...] dose administered prior to arrival in the hospital laboratory technician. Recommended anti-platelet/anti-thrombotic regimen: Start aspirin 81 mg daily now and continue for indefinitely. Start clopidogrel 75 mg daily now and continue for 12 months thenstop. These recommendations are made at the time of the intervention.Patient and provider preferences or a changing clinical situation mayrequire modification of this regimen. Consult [facility] [place] [place] questions. The 1 year bleeding [...] against any medical treatment.Consult http://tools.acc.org/DAPTriskapp/#!/content/calculator/ or [facility] for questions Conclusions: * One [...] Documents on File Type Date Recorded Patient Party Plan Selling Distributor Expl anation Advance Directives and Livin g Will 03/21/2024 4:09 PM * Attempt Cardiopulmonary Resuscitation - Inpatient (Latest Code Status on File) Date Activated Date Inactivated Comments 03/19/2024 1:09 AM 03/22/2024 2:16 PM Question Answer Comments Code Status decision made by: Patient Content of discussion: discussed code st atus and need for CPR/shocks/intubation in periprocedural period Care Teams Library Supervisor Relationship Specialty Start Date End Date None None PCP - General 03/19/24
--- OUTSIDE RECORDS SUMMARY | 2024-04-20 23:29 | XMS_ITS | Encounter Summary ---
Author Organization [facility] Address [address] [place] [address] Care Team Providers Care Mold Sander Name Role Phone Pretty Avery MD Primary Care Provider [phone] Encounter Details Date Type Department Care Team (Late st Contact Info) Description 12/02/2005 Results Only [facility] - [facility] conversion [address] [place] [address] Jake Sabillon FNP [address] [place], [place] [address] Social History Tobacco Use Types Packs/Day Years [...] ? ANNEEZEQUIEL GREEN ? Accession #: ? [id number] : ? 1965 (Age: 40) ??F ?Collect Date: ? 12/02/2005 Location: ? [facility] ? Receive Date: ? 12/04/2005 Provider: ?JAKE SABILLON METAL CNC OPERATOR Copy to: ? Specimen/Source: ?ThinPrep Pap Test, Cervix/Endocervix, processed on Level ThinPrep Imaging System, with manual evaluation Last [...] GARCÍAP PATHOLOGY ORDERABLES [facility] [address] [place] [address] documented in this encounter Visit Diagnoses Not on filedocumented in this encounter Care Teams Mold Sander Relationship Specialty Start Date End Date Pretty Avery MD [address] [place] [address] PCP - General 06/05/10 documented as of this encounter
--- OUTSIDE RECORDS SUMMARY | 2024-04-20 23:29 | XMS_ITS | Encounter Summary ---
Author Organization [facility] Address [address] [place] [address] Care Team Providers Care Cabin Crew Name Role Phone Unavailable Primary Care Provider Unavailabl e Encounter Details Date Type Department Care Team (Late st Contact Info) Description 12/31/2007 14:07 EDT Hospital Encounter [address] [address] Skip Alcocer MD [address] [place] [address], [facility] [address] [place] [address] Discharge Disposition: Auto Discharge Social History Tobacco [...] 10:19 EST CYTOPATHOLOGY Routine 08/28/2008 0:00 EST SENIOR LIVING VIABILITY 12/31/2007 16:20 EDT SENIOR LIVING CHORIONIC BARRETO SAMPLING 12/31/2007 15:40 EDT documented [...] - GE NERAL ORDERABLES Performing Organization Address City/State/[facility] Co de Phone Number [facility] [address] [place] [address] * CYTOPATHOLOGY (08/28/2008 0:00 EST) Pathology Report: CYTOPATHOLOGY REPORT ? Reports generated via electronic interface contain original data; ? however they are lacking the format of the original report. ? Caution should be taken when reading/interpreti ng unformatted reports. ? Name: ? EZEQUIEL THOMAS ? Accession #: ? [id number] ? : ? 1965 (Age: 43) ??F ?Collect Date: ? 08/28/2008 ? Location: ? [facility] ? Receive Date: ? 08/30/2008 ? Provider[facility] ? Copy to: ? Specimen/Source: [...] significance (ASC-US). ? EDUCATIONAL NOTES/RECOMMENDATI ONS ? [facility] recommends following the 2006 Consensus Guidelines for the Management of Women with Abnormal Cervical Cancer Screening Tests (JLGTD, ? 2007;11(4):201-222 ). ??Consensus guidelines are available online at ? www.ASCCP.org. ? Document reviewed and electronically signed by: ? MARIAA Beverly PLOTZ MD ? Report Date: ??09/04/2008 10:20 ? End of Report ? [facility] 08/28/2008 08/30/2008 Fred Reece [facility] PATHOLOGY ORDERAB LES Performing Organization Address City/State/[facility] Co de Phone Number [facility] [address] [place] [address] * SENIOR LIVING VIABILITY (12/31/2007 16:20 EDT) Anatomical Region Laterality Modality Other 12/31/2007 16:2 0 EDT Narrative 02/25/2009 13:06 EDT first trimester prior to cvs Please refer to the separate [facility] report. ??Contact Maternal Medicine. Procedure Note Magdalena Strickland MD - 02/25/2009 first trimester prior to cvs Please refer to the separate [facility] report. Contact Maternal Medicine. Magdalena Strickland MD [facility] [place] S * SENIOR LIVING CHORIONIC BARRETO SAMPLING (12/31/2007 15:40 EDT) Anatomical [...] Contact Maternal Medicine. Skip Reyes MD [facility] ORDERA BLES documented in this encounter Visit Diagnoses Not on filedocumented in this encounter
--- OUTSIDE RECORDS SUMMARY | 2024-04-20 23:29 | XMS_ITS | Encounter Summary ---
Author Organization [facility] Address [facility] [place] [address] Care Team Providers Care Floor Installer Name Role Phone None Primary Care Provider Unavailabl e Encounter Details Date Type Department Care Team (Late st Contact Info) Description 03/27/2024 Telephone Cardiology at [address] [phone] Collins Yanes PA [facility] [place] [address] Social History Tobacco Use Types Packs/Day Years Used Date Smoking Tobacco: Former Smokeless Tobacco: Never Alcohol Use Standard Drinks/Week Comments Yes 14 (1 standard drink = 0.6 oz pu re alcohol) [facility] Utilities Answer Date Recorded In the [...] any time in the past 12 m [facility], were you homeless or living in a [...] accepted: Orders * Telephone Encounter - Collins Ynaes PA - 03/27/2024 10:39 AM EDT Received page from chiller operator. Isa called in from home this [...] Vascular Unit Level 3 [place] [phone] Kiran Amador MD [facility] [place] [address] 05/09/2024 10:40 AM EDT Office Visit Cardiology at [address] [phone] Herlinda Weaver PA [facility] CARDIOLOGY [place], [place] [phone] documented as of this encounter Visit Diagnoses Not on filedocumented in this encounter Care Teams Floor Installer Relationship Specialty Start Date End Date None None PCP - General 03/19/24 documented as of this encounter
--- OUTSIDE RECORDS SUMMARY | 2024-04-20 23:29 | XMS_ITS | Encounter Summary ---
Author Organization [facility] [place] [address] Care Team Providers Care Analysis Engineer Name Role Phone None Primary Care Provider Unavailabl e Encounter Details Date Type Department Care Team (Late st Contact Info) Description 04/20/[address] [facility] [place] [place] [phone] Shamar Lehman MD [facility] [place] [address] Social History Tobacco Use Types Packs/Day Years Used Date Smoking Tobacco: Former Smokeless Tobacco: Never Alcohol Use Standard Drinks/Week Comments Yes 14 (1 standard drink = 0.6 oz pu re alcohol) [facility] Utilities Answer Date Recorded In the past 12 months has th e electric, gas, oil, or water [employer] threatened to shut off services in your [...] any time in the past 12 m [facility], were you homeless or living in a jail (including now)? No 03/21/2024 DH IPV Inpatient [...] encounter Miscellaneous Notes * Telephone Encounter - Shamar Lehman MD - 04/20/2024 5:58 PM EDT Images from the original note were not included. Initial Contact Date: 04/20/24 Referring Provider: Anastasiia Patient Location: [facility] HPI: 59 yoF w/ PMHx of CAD sp PCI to LAD , HLD who presents with chest pain. Started about a day ago, exertional, improves with rest. Asymptomatic in the ED. Received SLN prior to arrival and pain resolved. Vitals: 137/58 - 59 - 13 - 97 RA Exam: Unremarkable Pertinent Diagnostic Findings: ECG: sinus bradycardia Trop negative x2 CBC wnl BMP wnl CXR wnl Past cardiac studies: EKG: NSR TTE: LVEF 49% LAD rWMA LHC: LAD PCI OSH Interventions: NTG, ASA Assessment: 59 yoF w/ PMHx of CAD sp PCI to LAD , HLD who presents with chest pain and found with concern for UA. Hemodynamically normal, ECG similar to prior, troponins negative. Received ASA load. Given her history and prior CAD along with ischemic symptoms, will accept transfer for NSTEMI. Recommendations: - trend troponins and ECG - continue ASA - plavix load - hep gtt - high intensity statin - bblocker as tolerated - TTE - plan for LHC Recommendations: Above recommendations were based on my discussion with Dr. zhong; I have not personally interviewed or examined this patient. Advised to call the transfer center back with any changes in the patient condition. Shamar Lehman MD Oral Pathologist documented in this encounter Plan of Treatment Upcoming Encounters Date Type Department Care Team (Late st Contact Info) Description 04/22/2024 Hospital Encounter Heart and Vascular Unit Level 3 [place] [phone] Kiran Amador MD [facility] [place] [address] 05/09/2024 10:40 AM EDT Office Visit Cardiology at [address] [phone] Herlinda Weaver PA [facility] [address] [place], [place] [phone] documented as of this encounter Visit Diagnoses Not on filedocumented in this encounter Care Teams Analysis Engineer Relationship Specialty Start Date End Date None None PCP - General 03/19/24 documented as of this encounter
--- OUTSIDE RECORDS SUMMARY | 2024-04-20 23:29 | XMS_ITS | Encounter Summary ---
Author Organization [facility] Address [address] [place] [address] Care Team Providers Care Mold Laminator Name Role Phone Pretty Avery MD Primary Care Provider [phone] Reason for Referral * Consult (Routine) - Closed Specialty Diagnoses / Procedures Referred By Contac t Referred To Contact Diagnoses NSTEMI (non-ST elevated myocardial infarction) ([facility]) S/P coronary artery stent placement Yesy Manuel NP [address] [place] [id number] Alex Soto MD [address] [place] [id number] Referral ID Status Reason Start Date Expiration Date V isits Requested Visits Authorized [id number] Closed Specialty Services Required 03/31/2014 1 1 Question Answer Reason for Request: post NSTEMI post PCI, CAD Scheduling Comments (optional ? describe specific scheduling needs if applicable): 1 month Expected Discharge Date (Inpatient Only): 04/01/2014 Comments Please schedule in [facility] cardiology clinic with Dr Alex Soto or next available parachute repairer at that clinic. Office in [place] [phone]; cardiology clinic in [facility] [phone] * Consult (Routine) - Closed Specialty Diagnoses / Procedures Referred By Contac t Referred To Contact Cardiac Rehabilitation Diagnoses NSTEMI (non-ST elevated myocardial infarction) ([facility]) S/P coronary artery stent placement Yesy Manuel NP [address] [facility] [address] [place] [address] Referral ID Status Reason Start Date Expiration Date V isits Requested Visits Authorized [id number] Closed Specialty Services Required 03/31/2014 1 1 Question Answer Reason for Request: post NSTEMI, post pci, CAD Scheduling Comments (optional ? describe specific scheduling needs if applicable): 1 week Expected Discharge Date (Inpatient Only): 04/01/2014 Comments Please refer to [facility] in [facility] Encounter Details Date Type Department Care Team (Late st Contact Info) Description 03/30/2014 20:10 EDT - 04/01/2014 15:30 EDT Hospital Encounter [facility] Cardiac/Telemetry Unit [address], [place] [address] Waqas Yao MD [address] [facility] [address] [place] [phone] NSTEMI (non-ST elevated myocardial infarction) ([facility]) (Primary Dx); S/P coronary artery [...] female with h/o HTN on rauwolfia by placement specialist, who was transferred from [facility] for chest pain, with non-specific ST changes [...] with rest, and she was brought to [facility]. Her EKG showed non-specific ST changes and trops elevated at 0.179. She was transferred to [facility] for NSTEMI. She was started on heparin gtt, ASA, atovastatin, metoprolol, and ticagelor load. Heparin was weaned over the night. In the morning she had 2 more episodes of chest pain, and given SL nitro x2, whichimproved pain. She was later taken for [facility] after a discussion of the need to be on blood thinning medications for 12 months if a stent was to be placed. The patient agreed. Her [facility] had culprit lesionin LAD, which was [...] Please refer to [facility] in [facility] Reason for Request: post NSTEMI, post pci, CAD Expected Discharge Date (Inpatient Only): 04/01/2014 Scheduling Time Frame: 1 week Authorizing Provider: Yesy Manuel NP Amb Consult/Follow Up Cardiology Please schedule in [facility] cardiology clinic with Dr Alex Soto or next available parachute repairer at that clinic. Office in [place] [phone]; cardiology clinic in [facility] [phone] Reason for Request: post NSTEMI post PCI, [...] up with cardiology in 4-6 weeks at [facility] Please continue your cardiac medications, especially [...] weeks. * Tali Jacobs MD - 03/31/2014 4374 EDT Cardiology Post Procedure Note Date of [...] case management office. Quyen Barrett RN, CM pager#[phone] * Yesy Manuel NP - 03/31/2014 1308 EDT Ticagrelor twice daily without interruption x 1 year reviewed with patient and she verbalizes understanding. Cardiac rehab reviewed with patient and the patient is willing to attend at [facility]. Referral sent and written material given to patient.Follow up has been requested with Dr Alex Soto in cardiology clinic, [facility]. department operations manager contacted for Bril[employer] coverage. 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 Social Supports: Mother lives locally, friends available Existing Community Resources: No HH in past or currently, does not foresee needs upon discharge. PCP Pretty Avery MD Advanced Directives/DPOA: AD pamphlet given to patient Cultural/Spiritual Needs: Denied visit Insurance/Financial Needs: Medicaid coverage, pharmacy is [facility] in [facility] Transportation Needs: May need assistance with transportation, trying to set up a ride from family for d/c. Patient's car is in [place] currently. Patient Goals: No other needs at [...] relived with rest. She was taken to [facility] and treated with nitro and aspirin. The patient experienced some relief with nitro. EKG showed non specific st changes and trops were elevated. She was transferredto [facility] for management. Currently with the nitro gtt [...] clinical course Shahid Rayo MD Pager # [phone] 03/30/2014 21:10 Attestation statement::I have seen and [...] artery Procedure: She was brought to the [facility] Cardiac Catheterization Laboratory forthe procedure: [...] Notes * Plan of Care - Khadra Snigh - 04/01/2014 1433 EDT Problem: CIRCULATORY STATUS [...] of Care - Robin Johnson - 03/31/2014 8117 EDT Problem: CIRCULATORY STATUS Goal: Patient Has [...] Care - Cuauhtemoc Berg RN - 03/31/2014 2752 EDT Problem: CIRCULATORY STATUS Goal: Patient Has Stable Vital Signs And Fluid Balance Outcome: Ongoing D: Patient arrived to [place] [address]. Vital signs noted, and tele applied. Patient [...] Referral Routine NSTEMI (non-ST elevated myocardial infarction) ([facility]) S/P coronary artery stent placement Ordered: 03/31/2014 AMB CONS/FOLLOW UP CARDIOLOGY Outpatient Referral Routine NSTEMI (non-ST elevated myocardial infarction) ([facility]) S/P coronary artery stent placement Ordered: 03/31/2014 [...] 9:34 EST) 09/26/2015 9:34 EST Scan 2 Biometrics Instructor PROCEDURE/MINOR SHAYY GICAL ORDERABLES * ECG REPORT - SCANNED (04/06/2014 13:00 EDT) 04/06/2014 13:0 0 EDT Scan 2 Biometrics Instructor PROCEDURE/MINOR SHAYY GICAL ORDERABLES * ECG REPORT - SCANNED (04/06/2014 13:00 EDT) 04/06/2014 13:0 0 EDT Scan 2 Biometrics Instructor PROCEDURE/MINOR SHAYY GICAL ORDERABLES * INVASIVE CARDIOLOGY REPORT-SCANNED (04/06/2014 13:00 EDT) 04/06/2014 13:0 0 EDT Scan 2 Biometrics Instructor PROCEDURE/MINOR SHAYY GICAL ORDERABLES * ECG REPORT - SCANNED (04/05/2014 7:12 EDT) 04/05/2014 7:12 EDT Scan 2 Biometrics Instructor PROCEDURE/MINOR SHAYY GICAL ORDERABLES * ECG REPORT - SCANNED (04/04/2014 11:58 EDT) 04/04/2014 11:5 8 EDT Scan 2 Biometrics Instructor PROCEDURE/MINOR SHAYY GICAL ORDERABLES * ECG REPORT - SCANNED (04/04/2014 11:56 EDT) 04/04/2014 11:5 6 EDT Scan 2 Biometrics Instructor PROCEDURE/MINOR SHAYY GICAL ORDERABLES * (ABNORMAL) DIFFERENTIAL [...] Eosinophils 0.13 0.03 - 0.61 K/cmm [facility] Basophils 0.03 0.01 - 0.11 K/cmm [facility] Type of Diff: Automated [facility] 04/01/2014 5:50 EDT 04/01/2014 6:36 EDT Shahid Rayo MD HEMATOLOGY & PF4 ORD ERABLES [facility] [address] [place] [address] * HEMAGRAM (04/01/2014 5:50 EDT) WBC 11.20 [...] & PF4 ORD ERABLES Performing Organization Address [facility] de Phone Number [facility] [address] [place] [address] * PTT (04/01/2014 5:50 EDT) PTT 27 26 - 37 secs [facility] Comment:Therapeutic Heparin range: 65-100 seconds Blood specimen (specimen) 04/01/2014 5:50 EDT 04/01/2014 6:36 EDT Shahid Rayo MD HEMATOLOGY & PF4 ORD ERABLES Performing Organization Address [facility] Phone Number [facility] [address] [place] [address] * CREATININE (04/01/2014 5:50 EDT) Creatinine 0.69 0.52 - 1.04 mg/dl [facility] GFR, Calculated >60 >60 ml/min/1.7 3m2 [facility] Blood specimen (specimen) 04/01/2014 5:50 EDT 04/01/2014 6:36 EDT Shahid Rayo MD CHEMISTRY & BLOOD GA S ORDERABLES Performing Organization Address [facility] de Phone Number [facility] [address] [place] [address] * BUN (04/01/2014 5:50 EDT) BUN 10 10 - 26 mg/dl [facility] Blood specimen (specimen) 04/01/2014 5:50 EDT 04/01/2014 6:36 EDT Shahid Rayo MD CHEMISTRY & BLOOD GA S ORDERABLES Performing Organization Address [facility] Co de Phone Number [facility] [address] [place] [address] * ELECTROLYTES (04/01/2014 5:50 EDT) Sodium 138 136 - 145 mEq/L [facility] Potassium 4.2 3.5 - 5.0 mEq/L [facility] Chloride 107 96 - 110 mEq/L [facility] CO2 24 24 - 32 mEq/L [facility] Blood specimen (specimen) 04/01/2014 5:50 EDT 04/01/2014 6:36 EDT Shahid Rayo MD CHEMISTRY & BLOOD GA S ORDERABLES Performing Organization Address [facility] Co de Phone Number [facility] [address] [place] [address] * CK MB WITH TOTAL CK (04/01/2014 5:50 EDT) CK 35 30 - 135 U/L [facility] MB 1.58 <2.95 ng/ml [facility] Blood specimen (specimen) 04/01/2014 5:50 EDT 04/01/2014 6:36 EDT Yesy Manuel NP CHEMISTRY & BLOOD GA S ORDERABLES Performing Organization Address [facility] Co de Phone Number [facility] [address] [place] [address] * CK MB WITH TOTAL CK (03/31/2014 22:14 EDT) CK 42 30 - 135 U/L [facility] MB 1.72 <2.95 ng/ml [facility] Blood specimen (specimen) 03/31/2014 22:14 EDT 03/31/2014 22:19 EDT Shahid Rayo MD CHEMISTRY & BLOOD GA S ORDERABLES Performing Organization Address City/[facility]/ZIP Co de Phone Number [facility] [address] [place] [address] * (ABNORMAL) TROPONIN I (03/31/2014 14:32 EDT) Troponin I (ng/mL) 0.136(H) <0.034 ng/ml [facility] Blood specimen (specimen) 03/31/2014 14:32 EDT 03/31/2014 15:09 EDT Shahid Rayo MD CHEMISTRY & BLOOD MN S ORDERABLES Performing Organization Address [facility] de Phone Number [facility] [address] [place] [address] * CK MB WITH TOTAL CK (03/31/2014 14:32 EDT) CK 62 30 - 135 U/L [facility] MB 2.04 <2.95 ng/ml [facility] Blood specimen (specimen) 03/31/2014 14:32 EDT 03/31/2014 15:09 EDT Shahid Rayo MD CHEMISTRY & BLOOD GA S ORDERABLES Performing Organization Address [facility] de Phone Number [facility] [address] [place] [address] * EKG 12-LEAD (03/31/2014 13:30 EDT) 03/31/2014 13:3 0 EDT Narrative [facility] EKG - 04/04/2014 7:56 EDT ?[facility] ? Test Date: ?2014-03-31 Pat Name: ? ISA RO ?Department: ?? [facility] ? Room: ? MW511 Gender: ? F ?Counter Manager: ?? [id number] : ?1965 ? Requested By: YESY MANUEL LOG GETTER Order Number: [id number] ? Reading MD: ?? BRYAN PURDY MD ? Measurements Intervals ?[place] ? Rate: ? 50 ? P: ?57 VA: ? 154 ?QRS: ?29 QRSD: ? 90 [...] Date: 2014-03-31 Pat Name: ISA RO Department: [place] [address] Room: [facility] Gender: F Counter Manager: [id number] : 1965 Requested By: YESY MANUEL NP Order Number: [id number] Reading MD: BRYAN PURDY MD Measurements Intervals [place] Rate: 50 P: 57 VA: 154 QRS: 29 QRSD: 90 T: 38 [...] 5 EDT Narrative 03/31/2014 13:08 EDT Cardiology [address] [place] [address] Catheterization Laboratory Study Patient: Isa Ro ? Study Date: ?03/31/2014 ? Accession #: ? [id number] : ? 1965 Referring Physician: Dilip Mahajan [...] successfully achieved. SUMMARY: 1. HPI and indications: Ufe-NK-mefhnvnw myocardial infarction. 2. LAD: Proximal vessel lesion: [...] 4. Continue aspirin, at 81mgPOdaily, indefinitely. HISTORY: Nkj-MQ-qnrsxxfp myocardial infarction. ??Functional status: ?? CCS class [...] radial artery access. A 5Fr/10 cm Terumo Napoleon Sheath Radial sheath was ?? advanced into [...] MD 2014-03-31 13:08 Procedure Note 03/31/[address] [place] [id number] Catheterization Laboratory Study Patient: Isa Ro Study [...] successfully achieved. SUMMARY: 1. HPI and indications: Dio-XR-tmsylbeo myocardial infarction. 2. LAD: Proximal vessel lesion: [...] Add tricagrelor (Brilinta), loading dose 180mgPO, standing [id number], for 12mon. 4. Continue aspirin, at 81mgPOdaily, indefinitely. HISTORY: Lms-OS-qrayqivn myocardial infarction. Functional status: CCS class IV [...] radial artery access. A 5Fr/10 cm Terumo Napoleon Sheath Radialsheath was advanced into the vessel. [...] 2. Vessel setup was performed. A 180 Undertone wire was used to crossthe lesion. 3. [...] EDT *Interpreting Group:* *[facility]* [address] [place] [address] *STUDY CONCLUSIONS* Summary: ?? Left ventricle: The [...] ATTENDING ?Waqas Yao MD REFERRING ?Pretty Avery* PROPOSAL CONSULTANT ??Tracey Black PERFORMING ?? [facility]ly [facility], FELLOW ? Abiodun Velez ORDERING ? Joel Parker REFERRING ?Joel Parker j *PROCEDURE DATA* Procedure information: ??This study was interpreted by [facility] at [facility]. ??Study status: ??Routine. Transthoracic echocardiography. ??M-mode, complete 2D, complete spectral Doppler, and color Doppler. A Transthoracic Echocardiogram was performed. Scanning was performed from the parasternal, apical, subcostal, and suprasternal notch acoustic windows. Images were obtained using a Shubham IE33 3 cardiac ultrasound machine. Image quality was adequate. ??Study completion: ??The patient tolerated the procedure well. *INDICATIONS AND HISTORY* Indications: ?? [place] - nontransmural - acute 410.71. *CARDIAC ANATOMY* [...] 03/31/2014 11:13 Procedure Note 03/31/2014 *Interpreting Group:* *[facility]* [address] [place] [address] *STUDY CONCLUSIONS* Summary: Left ventricle: The cavity [...] ATTENDING Waqas Yao MD REFERRING Pretty Avery* PROPOSAL CONSULTANT Tracey Black PERFORMING Fa, FELLOW Abiodun Velez ORDERING Joel Parker REFERRING Joel Parker j *PROCEDURE DATA* Procedure information: This study was interpreted by [facility] at [facility]. Study status: Routine.Transthoracic echocardiography. M-mode, complete 2D, complete spectral Doppler, andcolor Doppler. A Transthoracic Echocardiogram was performed. Scanning wasperformed from the parasternal, apical, subcostal, and suprasternal notch acoustic windows. Images were obtained using a Shubham IE33 3 cardiac ultrasoundmachine. Image quality was adequate. Study completion: The patient tolerated the procedure well. *INDICATIONS AND HISTORY* Indications: [place] - nontransmural - acute 410.71. *CARDIAC ANATOMY* [...] ? Room: ? MW511 Gender: ? F ?Counter Manager: ?? [id number] : ?1965 ? Requested By: WAQAS YAO MD Order Number: [id number] ? Reading MD: ?? LYDIA DALTON MD ? Measurements Intervals ?[place] ? Rate: ? 59 ? P: ?58 VA: ? 154 ?QRS: ?41 QRSD: ? 88 [...] Date: 2014-03-31 Pat Name: ISA SHEPHERDISAI Department: [place] [address] Room: MW511 Gender: F Counter Manager: [id number] : 1965 Requested By: WAQAS YAO MD Order Number: [id number] Reading MD: LYDIA DALTON MD Measurements Intervals [place] Rate: 59 P: 58 VA: 154 QRS: 41 QRSD: 88 T: 43 [...] & PF4 ORD ERABLES Performing Organization Address City/[facility]/ZIP Co de Phone Number [facility] [address] [place] [address] * HEMAGRAM (03/31/2014 6:43 EDT) Pathologist [facility] WBC 8.21 4.0 - 12.4 K/cmm [facility] RBC 4.44 3.86 - 5.04 M/cmm [facility] Hemoglobin 13.0 11.6 - 15.2 gm/dl [facility] HCT 37.4 34.9 - 44.4 % [facility] MCV 84 81 - 98 fl [facility] MCH 29.3 26.7 - 33.3 pg [facility] MCHC 34.8 32.1 - 35.9 gm/dl [facility] PLT 217 141 - 320 K/cmm [facility] RDW-CV 14.3 11.7 - 14.6 % [facility] 03/31/2014 6:43 EDT 03/31/2014 7:01 EDT Shahid Rayo MD HEMATOLOGY & PF4 ORD ERABLES Performing Organization Address City/[facility] Co de Phone Number [facility] [address] [place] [address] * (ABNORMAL) PTT (03/31/2014 6:43 EDT) Pathologist [facility] PTT 51(H) 26 - 37 secs [facility] Comment:Therapeutic Heparin range: 65-100 seconds Blood specimen (specimen) 03/31/2014 6:43 EDT 03/31/2014 7:01 EDT Shahid Rayo MD HEMATOLOGY & PF4 ORD ERABLES Performing Organization Address [facility] de Phone Number [facility] [address] [place] [address] * CREATININE (03/31/2014 6:43 EDT) Pathologist [facility] Creatinine 0.70 0.52 - 1.04 mg/dl [facility] GFR, Calculated >60 >60 ml/min/1.7 3m2 [facility] Blood specimen (specimen) 03/31/2014 6:43 EDT 03/31/2014 7:01 EDT Shahid Rayo MD CHEMISTRY & BLOOD GA S ORDERABLES Performing Organization Address [facility] de Phone Number [facility] [address] [place] [address] * BUN (03/31/2014 6:43 EDT) BUN 15 10 - 26 mg/dl [facility] Blood specimen (specimen) 03/31/2014 6:43 EDT 03/31/2014 7:01 EDT Shahid Rayo MD CHEMISTRY & BLOOD GA S ORDERABLES Performing Organization Address [facility] Phone Number [facility] [address] [place] [address] * ELECTROLYTES (03/31/2014 6:43 EDT) Sodium 139 136 - 145 mEq/L [facility] Potassium 4.2 3.5 - 5.0 mEq/L [facility] Chloride 107 96 - 110 mEq/L [facility] CO2 24 24 - 32 mEq/L [facility] Blood specimen (specimen) 03/31/2014 6:43 EDT 03/31/2014 7:01 EDT Shahid Rayo MD CHEMISTRY & BLOOD GA S ORDERABLES Performing Organization Address [facility] Phone Number [facility] [address] [place] [address] * LIPID PROFILE (INCLUDES CHOLESTEROL, TRIGLYCERIDES, HDL, LDL) (03/31/2014 6:43 EDT) Cholesterol 152 mg/dl [facility] Comment: Desirable:<200 Borderline High:200-239 High:>gp=101 Triglycerides 100 mg/dl [facility] Comment: Normal:<150 Borderline High:150-199 High:200-499 Very High:>fr=724 HDL 50 mg/dl [facility] Comment: Low:<40 Normal:40-60 Desirable: >60 LDL, Calculated 82 mg/dl [facility] Comment: Optimal:<100 Near Optimal:100-129 Borderline High:130-159 High:160-189 Very High:>al=123 Chol/HDL Ratio 3.0 [facility] Fasting? Unknown [facility] Non HDL Cholesterol 102 mg/dl [facility] Comment: Desirable:<130 Borderline:130-159 High: 160-189 Very High: >ul=693 Blood specimen (specimen) 03/31/2014 6:43 EDT 03/31/2014 7:01 EDT Shahid Rayo MD CHEMISTRY & BLOOD GA S ORDERABLES Performing Organization Address [facility] Co de Phone Number [facility] [address] [place] [address] * (ABNORMAL) TROPONIN I (03/31/2014 6:43 EDT) Troponin I (ng/mL) 0.180(H) <0.034 ng/ml [facility] Blood specimen (specimen) 03/31/2014 6:43 EDT 03/31/2014 7:01 EDT Shahid Rayo MD CHEMISTRY & BLOOD GA S ORDERABLES Performing Organization Address [facility] Co de Phone Number [facility] [address] [place] [address] * CK MB WITH TOTAL CK (03/31/2014 6:43 EDT) CK 55 30 - 135 U/L [facility] MB 2.51 <2.95 ng/ml [facility] Blood specimen (specimen) 03/31/2014 6:43 EDT 03/31/2014 7:01 EDT Shahid Rayo MD CHEMISTRY & BLOOD GA S ORDERABLES Performing Organization Address [facility] Co de Phone Number [facility] [address] [place] [address] * HEMOGLOBIN A1C (03/31/2014 6:43 EDT) Hemoglobin [...] BLOOD GA S ORDERABLES Performing Organization Address [facility] Co de Phone Number [facility] [address] [place] [address] * HEMAGRAM (03/30/2014 22:23 EDT) WBC 9.80 [...] HEMATOLOGY & PF4 ORDERABLES Performing Organization Address [facility] de Phone Number [facility] [address] [place] [address] * INPATIENT ADD-ON (03/30/2014 22:00 EDT) Pathologist [facility] Tests to be added HEMAGRAM [facility] Number for problems MW5 [facility] Accession number [id number] [facility] 03/30/2014 22:0 0 EDT 03/30/2014 22:10 EDT Shahid Rayo MD HEMATOLOGY & PF4 ORD ERABLES Performing Organization Address [facility] Co de Phone Number [facility] [address] [place] [address] * CK MB WITH TOTAL CK (03/30/2014 21:01 EDT) [facility] CK 59 30 - 135 U/L [facility] MB 2.26 <2.95 ng/ml [facility] Blood specimen (specimen) 03/30/2014 21:01 EDT 03/30/2014 21:10 EDT Shahid Rayo MD CHEMISTRY & BLOOD GA S ORDERABLES Performing Organization Address [facility] Co de Phone Number [facility] [address] [place] [address] * (ABNORMAL) TROPONIN I (03/30/2014 21:01 EDT) [facility] Troponin I (ng/mL) 0.179(H) <0.034 ng/ml [facility] Blood specimen (specimen) 03/30/2014 21:01 EDT 03/30/2014 21:10 EDT Shahid Rayo MD CHEMISTRY & BLOOD GA S ORDERABLES Performing Organization Address [facility] de Phone Number [facility] [address] [place] [address] * CREATININE (03/30/2014 21:01 EDT) [facility] Creatinine 0.74 0.52 - 1.04 mg/dl [facility] GFR, Calculated >60 >60 ml/min/1.7 3m2 [facility] Blood specimen (specimen) 03/30/2014 21:01 EDT 03/30/2014 21:10 EDT Shahid Rayo MD CHEMISTRY & BLOOD GA S ORDERABLES Performing Organization Address [facility] Phone Number [facility] [address] [place] [address] * BUN (03/30/2014 21:01 EDT) BUN 13 10 - 26 mg/dl [facility] Blood specimen (specimen) 03/30/2014 21:01 EDT 03/30/2014 21:10 EDT Shahid Rayo MD CHEMISTRY & BLOOD GA S ORDERABLES Performing Organization Address [facility] de Phone Number [facility] [address] [place] [address] * ELECTROLYTES (03/30/2014 21:01 EDT) Sodium 139 136 - 145 mEq/L [facility] Potassium 3.7 3.5 - 5.0 mEq/L [facility] Chloride 105 96 - 110 mEq/L [facility] CO2 24 24 - 32 mEq/L [facility] Blood specimen (specimen) 03/30/2014 21:01 EDT 03/30/2014 21:10 EDT Shahid Rayo MD CHEMISTRY & BLOOD GA S ORDERABLES Performing Organization Address [facility] de Phone Number [facility] [address] [place] [address] * PROTIME (03/30/2014 21:01 EDT) Pro Time [...] PF4 ORD ERABLES [facility] [address] [place] [address] * (ABNORMAL) PTT (03/30/2014 21:01 EDT) PTT 130(HH) 26 - 37 secs [facility] Comment:Therapeutic Heparin range: 65-100 seconds Blood specimen (specimen) 03/30/2014 21:01 EDT 03/30/2014 21:10 EDT Shahid Rayo MD HEMATOLOGY & PF4 ORD ERABLES Performing Organization Address City/[facility] [facility] Co de Phone Number [facility] [address] [place] [address] documented in this encounter Visit Diagnoses Diagnosis NSTEMI (non-ST elevated myocardial infarction) ([facility])- Primary Acute myocardial infarction, subendocardial infarction, episode of care unspecified NSTEMI (non-ST elevated myocardial infarction) ([facility]) Acute myocardial infarction, subendocardial infarction, episode [...] in this encounter Orders Medications Ordered That Ousmnae ht Not Have Been Administered Count Last [...] 03/14 documented in this encounter Care Teams Mold Laminator Relationship Specialty Start Date End Date Pretty Avery MD [address] [place] [address] PCP - General 06/05/10 documented as of this encounter
--- OUTSIDE RECORDS SUMMARY | 2024-04-20 23:29 | XMS_ITS | Encounter Summary ---
Author Organization [facility] Address [address] [place] [address] Care Team Providers Care Pv Design Engineer Name Role Phone Unavailable Primary Care Provider Unavailabl e Encounter Details Date Type Department Care Team (Late st Contact Info) Description 04/30/2010 Results Only [facility] Medicine [address] [address] Pretty Avery MD [address] [place] [phone] Social History Tobacco Use Types Packs/Day Years [...]
--- OUTSIDE RECORDS SUMMARY | 2024-04-20 23:29 | XMS_ITS | Encounter Summary ---
Author Organization [facility] Address [address] [place] [address] Care Team Providers Care Manager Concrete Name Role Phone Pretty Avery MD Primary Care Provider [phone] Encounter Details Date Type Department Care Team (Latest Contact Info) Description 03/30/2014 10:20 EDT - 03/30/2014 20:09 EDT Hospital Encounter [facility] [address] [place] [address] Unknown, Provider, Discharge Disposition: Home or Self [...] filedocumented in this encounter Care Teams Manager Concrete Relationship Specialty Start Date End Date Pretty Avery MD [address] [place] [address] PCP - General 06/05/10 documented as of this encounter
--- OUTSIDE RECORDS SUMMARY | 2024-04-20 23:29 | XMS_ITS | Encounter Summary ---
Author Organization [facility] [place] [address] Care Team Providers Care Metal Miner Blasting Name Role Phone None Primary Care Provider Unavailabl e Encounter Details Date Type Department Care Team (Late st Contact Info) Description 04/20/2024 External Results Administration [facility] [place] [phone] Social History Tobacco Use Types Packs/Day Years Used Date Smoking Tobacco: Former Smokeless Tobacco: Never Alcohol Use Standard Drinks/Week Comments Yes 14 (1 standard drink = 0.6 oz pu re alcohol) [facility] Utilities Answer Date Recorded In [...] time in the past 12 m [facility], were you homeless or living in a [facility] (including now)? No 03/21/2024 IPV Inpatient Questions [...] Vascular Unit Level 3 [place] [address] Kiran Amador MD [facility] [place] [address] 05/09/2024 10:40 AM EDT Office Visit Cardiology at [address] [phone] Herlinda Weaver PA [facility] [place] [address] documented as of this encounter Procedures Procedure Name Priority Date/Time Associated Diagnosis Comments MISC EXTERNAL CARDIOLOGY RESULT Routine 04/20/2024 4:03 PM EDT documented in this encounter Results * External Cardiology Result (04/20/2024 4:03 PM EDT) Anatomical Region Laterality Modality Other Historical Provider EXTERNAL CARDIOLO GY RESULT documented in this encounter Visit Diagnoses Not on filedocumented in this encounter Care Teams Metal Miner Blasting Relationship Specialty Start Date End Date None None PCP - General 03/19/24 documented as of this encounter
--- OUTSIDE RECORDS SUMMARY | 2024-04-20 23:29 | XMS_ITS | Encounter Summary ---
Author Organization [facility] Address [address] [place] [address] Care Team Providers Care Repair Weaver Name Role Phone Pretty Avery MD Primary Care Provider [phone] Encounter Details Date Type Department Care Team (Latest Contact Info) Description 06/06/2010 18:54 EDT - 06/06/2010 23:59 EDT Hospital Encounter [address] [address] Pretty Avery MD [address] [place] [address] Discharge Disposition: Auto Discharge Social History Tobacco [...] filedocumented in this encounter Care Teams Repair Weaver Relationship Specialty Start Date End Date Pretty Avery MD [address] [place] [phone] PCP - General 06/05/10 documented as of this encounter
--- OUTSIDE RECORDS SUMMARY | 2024-04-20 23:29 | XMS_ITS | Encounter Summary ---
Author Organization [facility] Address [address] [place] [address] Care Team Providers Care Technical Solution Architect Name Role Phone Unavailable Primary Care Provider Unavailabl e Encounter Details Date Type Department Care Team (Late st Contact Info) Description 12/14/2006 Results Only [facility] [address] [place] [address] Jake Sabillon FNP [address] [place], [place] [address] Social History Tobacco Use Types Packs/Day Years [...] ? EZEQUIEL THOMAS ? Accession #: ? [id number] : ? 1965 (Age: 41) ??F ?Collect Date: ? 12/14/2006 Location: ? [facility] ? Receive Date: ? 12/16/2006 Provider: ?JAKE SABILLON SPORTS STATISTICIAN Copy to: ? Specimen/Source: ?ThinPrep Pap Test, Cervix/Endocervix, processed on [employer] ThinPrep Imaging System, with manual evaluation Last [...] 12/14/2006 12/16/2006 Jake GARCÍAP PATHOLOGY ORDERABLES URVASHI OSOD [address] [place] [address] documented in this encounter Visit Diagnoses Not on filedocumented in this encounter
--- OUTSIDE RECORDS SUMMARY | 2024-04-20 23:29 | XMS_ITS | Encounter Summary ---
Author Organization [facility] Address [address] [place] [address] Care Team Providers Care Alarm Signaler Name Role Phone Pretty Avery MD Primary Care Provider [phone] Encounter Details Date Type Department Care Team (Late st Contact Info) Description 09/06/2013 Results Only [facility] [place] [address], [place] [phone] Jake Sabillon FNP [address] [place], [place] [address] Social History Tobacco Use Types Packs/Day Years [...] ANNEEZEQUIEL GREEN Chuy ? Accession #: ? [id number] : ? 1965 (Age: 48) ??F ?Collect Date: ? 09/06/2013 Location: ? [facility] ? Receive Date: ? 09/08/2013 Provider: ?JAKE SABILLON AMMUNITION SUPERVISOR Copy to: ? Specimen/Source: ?Pap Test, Cervix/Endocervix, [...] Report URVASHI SOOD 09/06/2013 09/08/2013 Jake Sabillon AMMUNITION SUPERVISOR PATHOLOGY ORDERABLES URVASHI SOOD [address] [place] [address] documented in this encounter Visit Diagnoses Not on filedocumented in this encounter Care Teams Alarm Signaler Relationship Specialty Start Date End Date Pretty Avery MD [address] [place] [address] PCP - General 06/05/10 documented as of this encounter
--- OUTSIDE RECORDS SUMMARY | 2024-04-20 23:29 | XMS_ITS | Encounter Summary ---
Author Organization [facility] Address [address] [place] [address] Care Team Providers Care Pin Sorter And Bagger Name Role Phone Unavailable Primary Care Provider Unavailabl e Encounter Details Date Type Department Care Team (Late st Contact Info) Description 04/29/2010 Results Only [address] [address] Pretty Avery MD [address] [place] [phone] Social History Tobacco Use Types Packs/Day Years [...] ? EZEQUIEL THOMAS ? Accession #: ? [id number] ? : ? 1965 (Age: 45) ??F [...] Avery MD PATHOLOGY ORDERABLES URVASHI SOOD [address] [place] [address] documented in this encounter Visit Diagnoses Not on filedocumented in this encounter
--- OUTSIDE RECORDS SUMMARY | 2024-04-20 23:30 | XMS_ITS | Encounter Summary ---
Author Organization [facility] [place] [address] Care Team Providers Care Ice Cream Server Name Role Phone Pretty Avery MD Primary Care Provider [phone] Reason for Visit * Reason Comments Skin Check hx of SCC Encounter Details Date Type Department Care Team (Late st Contact Info) Description 01/14/2019 1:30 PM EDT Office Visit Dermatology at [facility] [address] [place] [address] Patrizia Moralez MD [facility] [place] [address] Multiple benign nevi; Lentigines; Seborrheic keratosis; History [...] History: Left lower back, sBCC, ED&C on 03-14-87-[facility] Seborrheic keratoses Family History: Melanoma: None Father [...] by: Patrizia Moralez MD Resident in Dermatology [facility] Patient seen and evaluated with staff bag inspector: Lisa Candelario MD Section of Dermatology [facility] * Lisa Candelario MD - 01/14/2019 [...] Vascular Unit Level 3 [place] [address] Kiran Amador MD [facility] [place] [address] 05/09/2024 10:40 AM EDT Office Visit Cardiology at [address] [phone] Herlinda Weaver PA [facility] [place] [address] documented as of this encounter Visit Diagnoses Diagnosis Multiple benign nevi Benign neoplasm of skin, site unspecified Lentigines Other dyschromia Seborrheic keratosis Other seborrheic keratosis History of basal cell cancer Personal history of other malignant neoplasm of skin Garcia angioma Nevus, non-neoplastic Skin cancer screening Screening for malignant neoplasm of the skin Arthropod bite, initial encounter documented in this encounter Care Teams Ice Cream Server Relationship Specialty Start Date End Date Pretty Avery MD [address] [place] [address] PCP - General 08/06/10 03/18/24 documented as of this encounter
--- OUTSIDE RECORDS SUMMARY | 2024-04-20 23:30 | XMS_ITS | Encounter Summary ---
Author Organization [facility] Address [facility] [place] [address] Care Team Providers Care Machine Tool Builder Name Role Phone Pretty Avery MD Primary Care Provider [phone] Encounter Details Date Type Department Care Team (Latest Contact Info) Description 03/18/2024 11:37 PM EDT - 03/18/2024 11:59 PM EDT Hospital Encounter [place] [phone] Destin Ambrosio MD [facility] [place] [address] Discharge Disposition: Home Social History Tobacco Use [...] Vascular Unit Level 3 [place] [address] Kiran Amador MD [facility] [place] [address] 05/09/2024 10:40 AM EDT Office Visit Cardiology at [address] [address] Herlinda Weaver PA [facility] [place] [address] documented as of this encounter Visit Diagnoses Not on filedocumented in this encounter Care Teams Machine Tool Builder Relationship Specialty Start Date End Date Pretty Avery MD [address] [place] [address] PCP - General 08/06/10 03/18/24 documented as of this encounter
--- OUTSIDE RECORDS SUMMARY | 2024-04-20 23:30 | XMS_ITS | Encounter Summary ---
Author Organization [facility] Address [facility] [place] [address] Care Team Providers Care Biller Name Role Phone Pretty Avery MD Primary Care Provider [phone] Reason for Visit * Reason Comments Basal Cell Carcinoma * Consultation (Routine) - Closed Specialty Diagnoses / Procedures Referred By Contac t Referred To Contact Dermatology Diagnoses skin lesion lower back, basel cell ca Isa Estrada MD [address] [place] [address] [facility] Dermatology [address] [place] [address] Referral ID Status Reason Start Date Expiration Date V isits Requested Visits Authorized [id number] Closed [facility] 12/17/2015 12/16/2016 1 1 Encounter Details Date Type Department Care Team (Late st Contact Info) Description 12/19/2015 2:30 PM EDT Office Visit Dermatology at [facility] [address] [place] [address] Lisa Candelario MD [facility] [place] [address] Superficial basal cell carcinoma; Seborrheic [...] or concerns, please call the office at [phone]. If it is after 5PM, or a holiday or weekend, please call [phone] and ask for the Grant Administrator on-call. documented in this encounter Progress Notes [...] encounter. Lisa Candelario MD Section of Dermatology [facility] documented in this encounter Plan of Treatment Upcoming Encounters Date Type Department Care Team (Late st Contact Info) Description 04/22/2024 Hospital Encounter Heart and Vascular Unit Level 3 [place] [address] Kiran Amador MD [facility] [place] [address] 05/09/2024 10:40 AM EDT Office Visit Cardiology at [address] [phone] Herlinda Weaver PA [facility] [place] [address] documented as of this encounter Visit Diagnoses Diagnosis Superficial basal cell carcinoma Basal cell carcinoma of skin, site unspecified Seborrheic keratosis Other seborrheic keratosis documented in this encounter Care Teams Biller Relationship Specialty Start Date End Date Pretty Avery MD [address] [place] [address] PCP - General 08/06/10 03/18/24 documented as of this encounter
--- OUTSIDE RECORDS SUMMARY | 2024-04-20 23:30 | XMS_ITS | Encounter Summary ---
Author Organization Formerly [facility] [place] [address] Care Team Providers Care Insurance Service Representative Name Role Phone None Primary Care Provider Unavailabl e Reason for Visit * Auth/Cert (Routine) Specialty Diagnoses / Procedures Referred By Contac t Referred To Contact Diagnoses Acute ST elevation myocardial infarction (STEMI) due to occlusion of left anterior descending (LAD) coronary artery stemi Procedures EMERGENCY IPI Destin Ambrosio MD [facility] [place] [address] [facility] Referral ID Status Reason Start Date Expiration Date Visits Re quested Visits Authorized [id number] 1 1 Encounter Details Date Type Department Care Team (Late st Contact Info) Description 03/19/2024 1:05 AM EDT - 03/19/2024 2:06 AM EDT Surgery [place] [address] Ramo Roy MD [facility] [place] [address] CARDIAC CATHETERIZATION Social History Tobacco Use Types Packs/Day Years Used Date Smoking Tobacco: Former Smokeless Tobacco: Never Alcohol Use Standard Drinks/Week Comments Yes 14 (1 standard drink = 0.6 oz pu re alcohol) [facility] Inpatient Questions Answer Date Recorded Does [...] Isa Ro Patient Age: 59 y.o. 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 Patient briefly [...] reduced LVEF [ ] f/u [facility] cardiology scheduled. [facility] cardiology referral sent Inpatient Provider Contact Information: Kathryn Walker MD [phone] For questions regarding this document or issues relating to this hospitalization on the Medical Service, please contact your inpatient physician through the [facility] Table Maker . Issues afterhours and on weekends will [...] 03/19/2024 8:37 AM) Result Value WORKSTATION ID [id number] Narrative EXAMINATION: XR CHEST ONE VIEW CLINICAL [...] who have questions please contact the health medicare insurance specialist that requested your imaging first. Cardiac Catheterization (Exam End: 03/19/2024 1:36 AM) Narrative [facility] Cardiac Catheterization/Intervention Report Patient Name: Isa Ro Procedure Date: 03/19/2024 A #: [id number] Primary Physician: Ramo Roy Case #: [id number] File Name: [id number] Catheterization Order Number: [id number] [facility] Antisubmarine Weapons Officer [facility] Final Report [place], [place] Patient Name: Isa Ro ID#: [id number] : 1965 Procedure Date: March 19, 2024 [...] was designated as ASA Class IV. The [facility] clinical frailty scale is 3: Managing Well. Diagnostic Tests: Prior Coronary Angiography: Prior coronary angiography was performed on 12/15/2014. Electrocardiography: EKG was assessed by ECG. EKG was Abnormal. EKG showed ST Deviation >= 0.5 mm and other abnormality. Medications Prior to Procedure: Aspirin. Indications for Diagnostic Cath: The priority of the diagnostic procedure was Emergent. The indication for the laborer dairy farm visit is ACS less than or equal [...] 3.5 guiding catheter and a 3.5 Fr [place] 20 Mhz using auto 1 mm/sec pullback. [...] for the procedure was Emergent. The [facility] indication for the procedure was STEMI-Immediate [...] A premounted 3.00 x 08 mm Alberto [place] (JAHAIRA) was deployed with a maximum inflation pressure of 12 atmospheres. Another stent insertion was accomplished through a 6 Fr. EBU 3.5 guide. A premounted 2.00 x 08 mm Reynolds [place] (JAHAIRA) was deployed. 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 Recommended anti-platelet/anti-thrombotic regimen: Start aspirin 81 mg daily now and continue for indefinitely. Start clopidogrel 75 mg daily now and continue for 12 months then stop. These recommendations are made at the time of the intervention. Patient and provider preferences or a changing clinical situation may require modification of this regimen. Consult [facility] Interventional Cardiology for questions. The 1 year [...] medical treatment. Consult http://tools.acc.org/DAPTriskapp/#!/content/calculator/ or [facility] Interventional Cardiology for questions Conclusions: * One [...] decreased and new wall motion abnormalities. Procedure Complete-89203. Image enhancement Definity was used for left [...] LAD in 03/2014, HLD, who presented to [facility] with chest pain. She developed chest pain around 2100 on 03/18 which prompted her to call EMS. She was given 325mg of aspirin and nitroglycerin. On arrival to [facility], she was found to have an EKG suggestive of anterior STEMI for which she was given half dose TNKfor systemic lysis prior to speaking with Dr. Herrera, on-call rougher helper at [facility]. 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 Stay on the phone. The emergency catering truck operator will tell you what to do. [...] of 8AM-5PM please call the Cardiology Clinic [phone] to speak with a nurse. All other hours please call the Hospital Table Maker [phone] and ask to speak to the cardiovascular hospitalist on-call. Return to work: One week Follow up Appointments: Doctor Where Phone # Date Time PCP MELECIO Polanco [address] [place] [address] 184 04/04/24 7:55 AM Furniture Cleaner Herlinda Weaver PA-C [facility] Cardiology 4A Clinic [phone] 05/09/24 10:40 AM (pleasearrive by 10:20 AM) *A referral has also been placed to [facility] cardiology, though you will need to follow-up with them regarding scheduling appointments at [phone] General Instructions None Future Appointments and Orders Future Appointments and Orders Future Appointments Provider Department Dept Phone 05/09/2024 10:40 AM Herlinda Weaver PA Cardiology at [facility] Arrive at: Coal Tram Driver Area [phone] Future Orders Complete By Expires Referral to Cardiac Rehab [[id number] Custom] As directed Process Instructions: If no progress note charted, please enter Clinical details in comments. Scheduling Instructions: Questions: My question or request is: s/p STEMI- cardiac rehab at [facility] Referral to Cardiology [REF12 Custom] As directed Process Instructions: If no progress note charted, please enter Clinical details in comments. Scheduling Instructions: Questions: My question or request is: s/p STEMI Discharge References/Attachments None Greater than 30 minutes was spent on this discharge including documentation, [id number] time withthe patient, patient education, drive thru order taker, coordination with pharmacy and other patient care. [...] away. Stay on the phone. The emergency catering truck operator will tell you what to do. [...] cardiac rehab has also been placed to [facility]. Call your doctor if: Chest pain, dyspnea, pain or swelling in legs occurs, or for weight gain of 2 pounds overnight or 5pounds in 5 days. If you have non-emergent questions, prior to your follow-up visit call: Thursday-Thursday between the hours of 8AM-5PM please call the Cardiology Clinic [phone] to speak with a nurse. All other hours please call the Hospital Table Maker [phone] and ask to speak to the cardiovascular hospitalist on-call. Return to work: One week Follow up Appointments: Doctor Where Phone # Date Time PCP MELECIO Polanco [address] [place] [address] 04/04/24 7:55 AM Furniture Cleaner Herlinda Weaver PA-C [facility] Cardiology 4A Clinic [phone] 05/09/24 10:40 AM (pleasearrive by 10:20 AM) *A referral has also been placed to [facility] cardiology, though you will need to follow-up with them regarding scheduling appointments at [phone] documented in this encounter Medications at Time [...] agreed to participate in cardiac rehab at [facility] following discharge Review [...] to have resulted in 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 She was also a bit hypercapnic which [...] 03/19/2024 8:20 PM EDTSummary: Chest Pain Patient hand surgeon light c/o chest pain 11/21. I asked [...] - 03/19/2024 2:50 AM EDT [facility] TeleICU Initial Assessment Note I established audio/visual communication with the patient's room, reviewed the eDH. History and Assessment: 59 yo F transferred from [facility] for a STEMI alert. Received [...] => BiPAP started Following procedure, transferred to [facility] - able to be weaned to [facility] [...] [facility] Hospital to which patient presented= [facility]: ED via EMS Date and Time of [...] Not contraindicated Plan STEMI Alert called: Yes Antisubmarine Weapons Officer Activated by: Care Team Coordinator Scheduler Initial Disposition: Admit Antisubmarine Weapons Officer documented in this encounter H&P Notes * [...] to LAD in 03/2014, HLD,who presented to [facility] with chest pain. She developed chest pain around 2100 on 03/18 which prompted her to call EMS. She was given 325mg of aspirin and nitroglycerin. On arrival to [facility], she was found to have an EKG suggestive of anterior STEMI for which she was given half dose TNK for systemic lysis prior to speaking with Dr. Herrera, on-call rougher helper at [facility]. 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 She was also a bit hypercapnic which [...] Cardiopulmonary Resuscitation - Inpatient Ganesh Nguyen MD Care Team Coordinator Scheduler [id number] documented in this encounter Miscellaneous Notes [...] [facility] [address] [facility] [address] Cardiology, [facility] [address] [facility] [address] Transportation: family or friend will provide Functional [...] 03/21/2024 4:02 PM EDT Patient completed a [place] advance directive. Patient identified her sister Stacia [...] N/A ; Prescription Coverage: Yes Preferred Pharmacy: [facility] [address] [facility] [address] [place], [place] [address]way [address] [facility] [address] [id number] - [place], [place] - [address] [place] [address] [address] [facility] [address] [facility] [address] [facility] - [place], [place] - [address] [facility] [address] [place] [address] Advance Care Planning: Attempt Cardiopulmonary Resuscitation - Inpatient <no information> -Advanced Directive: No, need to discuss (RS referral sent for AD discussion) Current Functional Ability: Assistive Person Functional Status Prior to Admission: Independent Home Environment: Others in the home: child(lucian), minor (lives with her 15yo son). Current Living Arrangements: home/apartment/condo. Accessibility Concerns:house with 3 floors and 2 [address]. Current DME: none [address] [facility] [id number] Social & Family Supports: All names listed below confirmed with patient as current and correct Extended Emergency Contact Information Primary Emergency [facility] States of [place] Mobile Relation: [...] to for AD discussion today. Registered Nurse Substation Manager / Documentation Engineer will continue to follow patient???s progress and [...] in an outpatient cardiac rehabilitation program at [facility] was discussed. Patient [...] Operative Note Patient Name: Isa Ro : [id number] MR#: [id number] Case Date: 03/19/2024 Surgeon: Surgeons and Role: [...] Vascular Unit Level 3 [place] [address] Kiran Amador MD [facility] [place] [address] 05/09/2024 10:40 AM EDT Office Visit Cardiology at [address] [phone] Herlinda Weaver PA [facility] [place] [address] Scheduled Referrals Name Type Priority Associated Diagnoses [...] AUTOMATED Routine 03/21/20 24 2:57 AM EDT METANEPHRINES, FRACTIONATED FREE, PLASMA [...] 5:06 AM EDT) Neutrophil % 71.6 % [facility] Neutrophil Absolute 8.34(H) 1.70 - 6.10 x10(3)/mc L [facility] Lymph % 17.4 % [facility] Lymphocytes Abs 2.0 0.9 - 3.2 x10(3)/mc L [facility] Monocyte % 8.2 % [facility] Monocyte Abs 1.0(H) 0.3 - 0.9 x10(3)/mc L [facility] Eos % 2.2 % [facility] Eosinophils Abs 0.3 0.0 - 0.4 x10(3)/mc L [facility] Basophil % 0.3 % [facility] Baso Absolute 0.0 0.0 - 0.1 x10(3)/[facility] LABORATORY Immature Gran % 0.30 % [facility] Comment: Immature granulocytes(IG's)percentage and absolute count will include metamyelocytes, myelocytes, and promyelocytes. Blood smears from CBCs yielding IG's will be scanned manually for concordance. If this scan disagrees with the automated IG or if promyelocytes are noted, a manual differential will be performed. Immature Gran Absolute 0.03 0.00 - 0.04 x10(3)/[facility] LABORATORY Blood 03/22/2024 5:06 AM EDT 03/22/2024 5:12 AM EDT Narrative Resulting Agency Comment Spec In Lab Horace Hancock MD HEMATOLOGY ORDERABLE S Performing Organization Address City/State/[facility] Co de Phone Number [facility] [place] [address] * (ABNORMAL) Hemogram (03/22/2024 5:06 AM EDT) White Blood Cell 11.6(H) 4.0 - 9.5 x10(3)/[facility] LABORATORY Red Blood Cell 4.80 4.00 - 5.21 x10(6)/[facility]ORATORY Hemoglobin 13.5 11.7 - 15.5 g/dL [facility] Hematocrit 40.3 35.7 - 45.8 % [facility] Mean Cell Volume 84.0 82.6 - 94.4 fL [facility] Mean Cell Hemoglobin 28.1 27.1 - 32.0 pg [facility] Mean Cell Hemoglobin Concentration 33.5 31.7 - 35.0 g/dL [facility] Platelet 232 145 - 357 x10(3)/[facility] LABORATORY RDW Standard Deviation 42.2 37.0 - 46.0 fL [facility] RDW coefficient of variation 13.5 11.5 - 14.1 % [facility] Mean Platelet Volume 9.7 7.6 - 12.9 fL [facility] NRBC% auto 0.0 % [facility] NRBC Absolute 0.000 0.000 - 0.000 x10(3)/mc L [facility] Blood 03/22/2024 5:06 AM EDT 03/22/2024 5:12 AM EDT Narrative Resulting Agency Comment Spec In Lab Horace Hancock MD HEMATOLOGY ORDERABLE S [facility] [place] [address] * Basic Metabolic Panel (non-fasting) (03/22/2024 5:06 AM EDT) Glucose 107 65 - 199 mg/dL [facility] Comment:Diabetes: >=200 mg/d L plus symptoms Blood Urea Nitrogen 18 8 - 18 mg/dL [facility] [...] 98 - 107 mmol/L [facility] Carbon Dioxide 24 22 - 31 mmol/L [facility] Anion Gap 10 5 - 15 mmol/L [facility] Calcium 9.2 8.5 - 10.5 mg/dL [facility] Est Glomerular Filtration Rate 76 >=60 mL/min/1. 73 m?? [facility] Comment: This patient's estimated GFR was calculated using the 2021 CKD-EPI equation. The estimated GFR can vary [...] Hancock MD CHEMISTRY ORDERABLES Performing Organization Address City/[facility]/ZIP Co de Phone Number [facility] [place] [address] * Magnesium (03/22/2024 5:06 AM EDT) Pathologist [facility] Magnesium 0.90 0.69 - 1.07 mmol/L [facility] Blood 03/22/2024 5:06 AM EDT 03/22/2024 5:12 AM EDT Narrative Resulting Agency Comment Spec In Lab Destin Ambrosio MD CHEMISTRY ORDERABLES Performing Organization Address [facility] Co de Phone Number [facility] [place] [address] * (ABNORMAL) Differential, Automated (03/21/2024 2:57 AM EDT) Neutrophil % 63.0 % [facility] Neutrophil Absolute 6.70(H) 1.70 - 6.10 x10(3)/mc L [facility] Lymph % 24.9 % [facility] Lymphocytes Abs 2.6 0.9 - 3.2 x10(3)/mc L [facility] Monocyte % 8.7 % [facility] Monocyte Abs 0.9 0.3 - 0.9 x10(3)/mc L [facility] Eos % 2.8 % [facility] Eosinophils Abs 0.3 0.0 - 0.4 x10(3)/[facility] LABORATORY Basophil % 0.3 % [facility] Baso Absolute 0.0 0.0 - 0.1 x10(3)/ L [facility] Immature Gran % 0.30 % [facility] Comment: Immature granulocytes(IG's)percentage and absolute count will include metamyelocytes, myelocytes, and promyelocytes. Blood smears from CBCs yielding IG's will be scanned manually for concordance. If this scan disagrees with the automated IG or if promyelocytes are noted, a manual differential will be performed. Immature Gran Absolute 0.03 0.00 - 0.04 x10(3)/[facility] LABORATORY Blood 03/21/2024 2:57 AM EDT 03/21/2024 3:03 AM EDT Narrative Resulting Agency Comment Spec In Lab Horace Hancock MD HEMATOLOGY ORDERABLE S [facility] [place] [address] * (ABNORMAL) Hemogram (03/21/2024 2:57 AM EDT) White Blood Cell 10.6(H) 4.0 - 9.5 x10(3)/[facility] LABORATORY Red Blood Cell 4.54 4.00 - 5.21 x10(6)/ L [facility] Hemoglobin 12.8 11.7 - 15.5 g/dL [facility] Hematocrit 38.2 35.7 - 45.8 % [facility] Mean Cell Volume 84.1 82.6 - 94.4 fL [facility] Mean Cell Hemoglobin 28.2 27.1 - 32.0 pg [facility] Mean Cell Hemoglobin Concentration 33.5 31.7 - 35.0 g/dL [facility] Platelet 242 145 - 357 x10(3)/ L [facility] RDW Standard Deviation 42.4 37.0 - 46.0 fL [facility] RDW coefficient of variation 13.7 11.5 - 14.1 % [facility] Mean Platelet Volume 9.5 7.6 - 12.9 fL [facility] NRBC% auto 0.0 % [facility] NRBC Absolute 0.000 0.000 - 0.000 x10(3)/mc L [facility] Blood 03/21/2024 2:57 AM EDT 03/21/2024 3:03 AM EDT Narrative Resulting Agency Comment Spec In Lab Horace Hancock MD HEMATOLOGY ORDERABLE S [facility] [place] [address] * Basic Metabolic Panel (non-fasting) (03/21/2024 2:57 AM EDT) Glucose 98 65 - 199 mg/dL [facility] Comment:Diabetes: >=200 mg/d L plus symptoms Blood Urea Nitrogen 15 8 - 18 mg/dL [facility] [...] 98 - 107 mmol/L [facility] Carbon Dioxide 25 22 - 31 mmol/L [facility] Anion Gap 12 5 - 15 mmol/L [facility] Calcium 9.2 8.5 - 10.5 mg/dL [facility] Est Glomerular Filtration Rate 82 >=60 mL/min/1. 73 m?? [facility] [...] Hancock MD CHEMISTRY ORDERABLES Performing Organization Address [facility]/ZIP Co de Phone Number [facility] [place] [address] * Magnesium (03/21/2024 2:57 AM EDT) Magnesium 0.91 0.69 - 1.07 mmol/L [facility] Blood 03/21/2024 2:57 AM EDT 03/21/2024 3:03 AM EDT Narrative Resulting Agency Comment Spec In Lab Destin Ambrosio MD CHEMISTRY ORDERABLES Performing Organization Address [facility] Co de Phone Number [facility] [place] [address] * Metanephrines, Fractionated Free, plasma (03/21/2024 2:57 AM EDT) Normetanephrine, Free (JANUARY) 0.47 <0.90 nmol/L [facility] Comment: Test Performed by: [facility] [address] [place] [address] Support Associate: Chasity Hernandez Ph.D.; CLIA# [id number] Metanephrine, Free (JANUARY) <0.20 <0.50 nmol/L [facility] Comment: ADDITIONAL INFORMATION This test was developed and its performance characteristics determined by [facility] in a manner consistent with CLIA requirements. This test has not been cleared or approved by the U.S. Food and Drug Administration. Test Performed by: [facility] - [address] [address] Support Associate: Chasity Hernandez Ph.D.; CLIA# [id number] Blood 03/21/2024 2:57 AM EDT 03/21/2024 11:29 AM EDT Narrative Resulting Agency Comment Spec In Lab Horace Hancock MD LAB SEND OUT ORDERAB LES Performing Organization Address [facility] Co de Phone Number [facility] [place] [address] * Iron and TIBC (03/20/2024 10:38 AM EDT) Pathologist [facility] Iron 57 30 - 150 mcg/dL [facility] TIBC 278 250 - 450 mcg/dL [facility] Iron Saturation 21 20 - 50 % [facility] Blood Venous Draw / Unknown 03/20/2024 10:38 AM EDT 03/20/2024 10:52 AM EDT Narrative Resulting Agency Comment Spec In Lab Horace Hancock MD CHEMISTRY ORDERABLES Performing Organization Address [facility] Co de Phone Number [facility] [place] [address] * (ABNORMAL) Differential, Automated (03/20/2024 10:38 AM EDT) Neutrophil % 73.1 % [facility] Neutrophil Absolute 9.60(H) 1.70 - 6.10 x10(3)/mc L [facility] Lymph % 17.3 % [facility] Lymphocytes Abs 2.3 0.9 - 3.2 x10(3)/ L [facility] Monocyte % 7.5 % [facility] Monocyte Abs 1.0(H) 0.3 - 0.9 x10(3)/[facility] LABORATORY Eos % 1.5 % [facility] Eosinophils Abs 0.2 0.0 - 0.4 x10(3)/[facility] LABORATORY Basophil % 0.3 % [facility] Baso Absolute 0.0 0.0 - 0.1 x10(3)/[facility] LABORATORY Immature Gran % 0.30 % [facility] Comment: Immature granulocytes(IG's)percentage and absolute count will include metamyelocytes, myelocytes, and promyelocytes. Blood smears from CBCs yielding IG's will be scanned manually for concordance. If this scan disagrees with the automated IG or if promyelocytes are noted, a manual differential will be performed. Immature Gran Absolute 0.04 0.00 - 0.04 x10(3)/[facility]OR[facility]ORY Blood 03/20/2024 10:3 8 AM EDT 03/20/2024 10:47 AM EDT Narrative Resulting Agency Comment Spec In Lab Hoarce Hancock MD HEMATOLOGY ORDERABLE S [facility] [place] [address] * (ABNORMAL) Hemogram (03/20/2024 10:38 AM EDT) White Blood Cell 13.2(H) 4.0 - 9.5 x10(3)/[facility] Red Blood Cell 4.66 4.00 - 5.21 x10(6)/[facility] Hemoglobin 13.0 11.7 - 15.5 g/dL [facility] Hematocrit 38.7 35.7 - 45.8 % [facility] Mean Cell Volume 83.0 82.6 - 94.4 fL [facility] Mean Cell Hemoglobin 27.9 27.1 - 32.0 pg [facility] Mean Cell Hemoglobin Concentration 33.6 31.7 - 35.0 g/dL [facility] Platelet 238 145 - 357 x10(3)/mc L [facility] RDW Standard Deviation 41.7 37.0 - 46.0 [facility] LABORATORY RDW coefficient of variation 13.8 11.5 - 14.1 % [facility] Mean Platelet Volume 9.8 7.6 - 12.9 fL [facility] NRBC% auto 0.0 % [facility] NRBC Absolute 0.000 0.000 - 0.000 x10(3)/mc L [facility] Blood 03/20/2024 10:3 8 AM EDT 03/20/2024 10:47 AM EDT Narrative Resulting Agency Comment Spec In Lab Horace Hancock MD HEMATOLOGY ORDERABLE S [facility] [place] [address] * Magnesium (03/20/2024 10:38 AM EDT) Magnesium 0.88 0.69 - 1.07 mmol/L [facility] Blood 03/20/2024 10:3 8 AM EDT 03/20/2024 10:47 AM EDT Narrative Resulting Agency Comment Spec In Lab Horace Hancock MD CHEMISTRY ORDERABLES Performing Organization Address City/[facility]/ZIP Co de Phone Number [facility] [place] [address] * Basic Metabolic Panel (non-fasting) (03/20/2024 10:38 AM EDT) Glucose 108 65 - 199 mg/dL [facility] Comment:Diabetes: >=200 mg/d L plus symptoms Blood Urea Nitrogen 11 8 - 18 mg/dL [facility] [...] 98 - 107 mmol/L [facility] Carbon Dioxide 22 22 - 31 mmol/L [facility] Anion Gap 14 5 - 15 mmol/L [facility] Calcium 9.0 8.5 - 10.5 mg/dL [facility] Est Glomerular Filtration Rate 82 >=60 mL/min/1. 73 m?? [facility] [...] Hancock MD CHEMISTRY ORDERABLES [facility] [place] [address] * Magnesium (03/19/2024 11:01 PM EDT) Magnesium 0.96 0.69 - 1.07 mmol/L [facility] Blood Venous Draw / Unknown 03/19/2024 11:01 PM EDT 03/19/2024 11:06 PM EDT Narrative Resulting Agency Comment Spec In Lab Horace Hancock MD CHEMISTRY ORDERABLES Performing Organization Address City/[facility]/ZIP Co de Phone Number [facility] [place] [address] * (ABNORMAL) Troponin (03/19/2024 11:01 PM EDT) Pathologist [facility] Troponin-T, High Sensitivity 2,406(H) <=14 ng/L [facility] Comment: [...] troponin value can be found in the [facility] Laboratory Test Catalog Troponin - [facility] Laboratory Test Catalog Reference: Fourth Sunman Definition of Myocardial Infarction. Journal of the [employer] 2018;72:6632-2366 Blood 03/19/2024 11:0 1 PM EDT 03/19/2024 11:05 PM EDT Narrative Resulting Agency Comment Spec In Lab Franky Mead MD CHEMISTRY ORDERABLE S Performing Organization Address City/[facility]/ZIP Co de Phone Number [facility] [place] [address] * (ABNORMAL) Troponin (03/19/2024 8:40 PM EDT) [facility] Troponin-T, High Sensitivity 2,586(H) <=14 ng/L [facility] Comment: [...] troponin value can be found in the [facility] Laboratory Test Catalog Troponin - [facility] Laboratory Test Catalog Reference: Fourth Sunman Definition of Myocardial Infarction. Journal of the [employer] 2018;72:6485-8466 Blood 03/19/2024 8:40 PM EDT 03/19/2024 8:45 PM EDT Narrative Resulting Agency Comment Spec In Lab Ganesh Nguyen MD CHEMISTRY ORDERAB LES [facility] [place] [address] * EKG 12 Lead (03/19/2024 8:32 PM EDT) Ventricular rate 70 BPM MUSE SYSTEM Atrial Rate 70 BPM MUSE SYSTEM P-R Interval 158 ms MUSE SYSTEM QRS Duration 78 ms MUSE SYSTEM Q-T Interval 470 ms MUSE SYSTEM QTC Calculated (Bezet) 507 ms MUSE SYSTEM Calculated P Keldron 62 degrees MUSE SYSTEM Calculated R Keldron 42 degrees MUSE SYSTEM Calculated T Keldron -158 degrees MUSE SYSTEM INTERPRETATION Normal sinus rhythm Poor R wave progression T wave abnormality, consider lateral ischemia Prolonged QT Abnormal ECG When compared with ECG of 19-MAR-2024 17:27, No significant change was found Confirmed by MD Ambrosio David ([id number]) on 03/23/2024 8:10:58 AM MUSE SYSTEM 03/19/2024 8:32 PM EDT 03/23/2024 8:10 AM EDT Franky Mead MD ECG ORDERABLES MUSE SYSTEM * EKG 12 Lead (03/19/2024 5:27 PM EDT) Pathologist [facility] Ventricular rate 70 BPM MUSE SYSTEM Atrial Rate 70 BPM MUSE SYSTEM P-R Interval 154 ms MUSE SYSTEM QRS Duration 80 ms MUSE SYSTEM Q-T Interval 460 ms MUSE SYSTEM QTC Calculated (Bezet) 496 ms MUSE SYSTEM Calculated P Keldron 80 degrees MUSE SYSTEM Calculated R Keldron 87 degrees MUSE SYSTEM Calculated T Keldron -96 degrees MUSE SYSTEM INTERPRETATION Normal sinus rhythm T wave abnormality, consider lateral ischemia Prolonged QT Abnormal ECG When compared with ECG of 19-MAR-2024 02:23, Non-specific change in ST segment in Anterior leads T wave inversion more evident in Inferior leads T wave inversion now evident in Anterolateral leads Confirmed by MD Ambrosio David ([id number]) on 03/23/2024 8:10:45 AM MUSE SYSTEM 03/19/2024 5:27 PM EDT 03/23/2024 8:10 AM EDT Unknown ECG ORDERABLES MUSE SYSTEM * (ABNORMAL) Troponin (03/19/2024 2:45 PM EDT) Pathologist [facility] Troponin-T, High Sensitivity 3,792(H) <=14 ng/L [facility] Comment: [...] troponin value can be found in the [facility] Laboratory Test Catalog Troponin - [facility] Laboratory Test Catalog Reference: Fourth Sunman Definition of Myocardial Infarction. Journal of the [employer] 2018;72:5564-4901 Blood 03/19/2024 2:45 PM EDT 03/19/2024 2:54 PM EDT Narrative Resulting Agency Comment Spec In Lab Horace Hancock MD CHEMISTRY ORDERABLES Performing Organization Address City/State/[facility] Co de Phone Number [facility] [place] [address] * ECHO COMPLETE W CONTRAST (03/19/2024 10:53 AM EDT) Anatomical Region Laterality Modality Cardiac Other 03/19/2024 9:03 AM EDT Narrative 03/19/2024 12:12 PM EDT [address] [place] [id number] ? Echocardiogram Report Name: ISA RO ?Study Date: 03/19/2024 09:03 AMBP: 129/68 mmHg ? Patient Location: : 1965 ? Height: 158 cm ? Account: [id number] Age: 59 yrs ? Weight: 57 kg Gender: Female ?BSA: 1.6 m2 Ordering Physician: GANESH NGUYEN Referring Physician: GANESH NGUYEN Performed By: PEREZ Carlos Reason For Study: STEMI involving LAD Exam Location: [facility]. Interpretation Summary Normal left ventricle size with mildly reduced LV function. LV ejection fraction 49%. LAD territory wall motion abnormality, predominantly involving the LV apex. No LV thrombus visualized with echo contrast. Normal right ventricle. No significant valvular abnormalities. Compared with prior echo dated 08/28/23, LV function has now decreased and new wall motion abnormalities. Procedure Complete-[id number]. Image enhancement Definity was used for left [...] Note Destin Ambrosio MD - 03/19/2024 1 [place] [address] Echocardiogram Report Name: AIMEE ROA Chuy Study Date: 409:03 AMBP: 129/68 mmHg Patient Location: : 1965 Height: 158 cm Account: [id number] Age: 59 yrs Weight: 57 kg Gender: Female BSA: 1.6 m2 Ordering Physician: GANESH NGUYEN Referring Physician: GANESH NGUYEN Performed By: PEREZ Carlos Reason For Study: STEMI involving LAD Exam Location: [facility]. Interpretation Summary Normal left ventricle size with mildly reduced LV function. LV ejectionfraction 49%. LAD territory wall motion abnormality, predominantly involving the LVapex. No LV thrombus visualized with echo contrast. Normal right ventricle. No significant valvular abnormalities. Compared with prior echo dated 08/28/23, LV function has now decreased andnew wall motion abnormalities. Procedure Complete-[id number]. Image enhancement Definity was used for left [...] View (03/19/2024 8:37 AM EDT) WORKSTATION ID [id number] RAD Anatomical Region Laterality Modality Chest N/A [...] who have questions please contact the health medicare insurance specialist that requested your imaging first. ? [...] patients who have questions please contactthe health medicare insurance specialist that requested your imaging first. Delores Jett MD IMG DX ORDERABLES * Hemoglobin A1c (03/19/2024 5:25 AM EDT) [facility] Hemoglobin A1c 5.6 4.3 - 5.6 % [facility] [...] Mellitus, Diabetes Care 2013; 36: Suppl. 1, V02-19 Estimated Average Glucose 114 mg/dL [facility] Blood Venous Draw / Unknown 03/19/2024 5:25 AM EDT 03/19/2024 3:52 PM EDT Narrative Resulting Agency Comment Spec In Lab Horace Hancock MD CHEMISTRY ORDERABLES Performing Organization Address City/State/[facility] Co de Phone Number [facility] [place] [address] * (ABNORMAL) Differential, Automated (03/19/2024 5:25 AM EDT) [facility] Neutrophil % 90.0 % [facility] Neutrophil Absolute 16.73(H) 1.70 - 6.10 x10(3)/mc L [facility] Lymph % 5.2 % [facility] Lymphocytes Abs 1.0 0.9 - 3.2 x10(3)/mc L [facility] Monocyte % 4.2 % [facility] Monocyte Abs 0.8 0.3 - 0.9 x10(3)/mc L [facility] Eos % 0.0 % [facility] Eosinophils Abs 0.0 0.0 - 0.4 x10(3)/mc L [facility] Basophil % 0.2 % [facility] Baso Absolute 0.0 0.0 - 0.1 x10(3)/mc L [facility] Immature Gran % 0.40 % [facility] Comment: Immature granulocytes(IG's)percentage and absolute count will include metamyelocytes, myelocytes, and promyelocytes. Blood smears from CBCs yielding IG's will be scanned manually for concordance. If this scan disagrees with the automated IG or if promyelocytes are noted, a manual differential will be performed. Immature Gran Absolute 0.08(H) 0.00 - 0.04 x10(3)/ L [facility] Blood 03/19/2024 5:25 AM EDT 03/19/2024 5:34 AM EDT Narrative Resulting Agency Comment Spec In Lab Ganesh Nguyen MD HEMATOLOGY ORDERA BLES [facility] [place] [address] * (ABNORMAL) Hemogram (03/19/2024 5:25 AM EDT) White Blood Cell 18.6(H) 4.0 - 9.5 x10(3)/[facility] LABORATORY Red Blood Cell 4.92 4.00 - 5.21 x10(6)/ L [facility] Hemoglobin 13.7 11.7 - 15.5 g/dL [facility] Hematocrit 40.6 35.7 - 45.8 % [facility] Mean Cell Volume 82.5(L) 82.6 - 94.4 fL [facility] Mean Cell Hemoglobin 27.8 27.1 - 32.0 pg [facility] Mean Cell Hemoglobin Concentration 33.7 31.7 - 35.0 g/dL [facility] Platelet 285 145 - 357 x10(3)/ L [facility] RDW Standard Deviation 41.1 37.0 - 46.0 fL [facility] RDW coefficient of variation 13.6 11.5 - 14.1 % [facility] Mean Platelet Volume 9.5 7.6 - 12.9 fL [facility] NRBC% auto 0.0 % [facility] NRBC Absolute 0.000 0.000 - 0.000 x10(3)/mc L [facility] Blood 03/19/2024 5:25 AM EDT 03/19/2024 5:34 AM EDT Narrative Resulting Agency Comment Spec In Lab Ganesh Nguyen MD HEMATOLOGY ORDERA BLES [facility] [place] [address] * Lipid Panel (Reflex Direct LDL) (03/19/2024 5:25 AM EDT) Cholesterol, Total 324 mg/dL [facility] Comment: Desirable: ? <200 mg/dL Borderline High: 200-239 mg/dL Higher: ?>wh=043 mg/dL Triglyceride 200 mg/dL [facility] Comment: Normal: ?<150 mg/dL Borderline High: 150-199 mg/dL High: ?200-499 mg/dL Very High: ? >jo=277 mg/dL HDL Cholesterol 68 mg/dL [facility] Comment: Females: High Risk: <50 mg/dL Males: High Risk: <40 mg/dL LDL Cholesterol 216 mg/dL [facility] Comment: Desirable: ? <100 mg/dL Above Desirable: 100-129 mg/dL Borderline High: 130-159 mg/dL High: ?160-189 mg/dL Very High: ? >wz=412 mg/dL Lipid Interpretation See Note [facility] [...] ACC/AHA Guidelines (most recently Jw winslow al. [facility] 06/17/22): For individuals with atherosclerotic cardiovascular disease (ASCVD)or LDL >qf=684 mg/dL, use a high-intensity statin (40-80 mg [...] MD CHEMISTRY ORDERAB LES [facility] [place] [address] * (ABNORMAL) Troponin (03/19/2024 5:25 AM EDT) Troponin-T, High Sensitivity 1,276(H) <=14 ng/L [facility] Comment: [...] troponin value can be found in the [facility] Laboratory Test Catalog Troponin - [facility] Laboratory Test Catalog Reference: Fourth Sunman Definition of Myocardial Infarction. Journal of the [employer] College [employer] 2018;72:5755-5411 Blood 03/19/2024 5:25 AM EDT 03/19/2024 5:34 AM EDT Narrative Resulting Agency Comment Spec In Lab Ganesh Nguyen MD CHEMISTRY ORDERAB LES [facility] [place] [address] * APTT (03/19/2024 5:25 AM EDT) Partial Thromboplastin Time 29 25 - 37 sec [facility] [...] ORDERA BLES Performing Organization Address [facility] de Phone Number [facility] [place] [address] * Prothrombin Time (03/19/2024 5:25 AM EDT) Prothrombin Time 10.9 9.4 - 12.5 sec [facility] International Normalization Ratio 1.0 [facility] Comment: An INR [...] ORDERA BLES Performing Organization Address [facility] de Phone Number [facility] [place] [address] * (ABNORMAL) Comprehensive metabolic panel (non-fasting) (03/19/2024 5:25 AM EDT) Glucose 181 65 - 199 mg/dL [facility] Comment:Diabetes: >=200 mg/d L plus symptoms Blood Urea Nitrogen 14 8 - 18 mg/dL [facility] [...] 98 - 107 mmol/L [facility] Carbon Dioxide 22 22 - 31 mmol/L [facility] Anion Gap 15 5 - 15 mmol/L [facility] Calcium 8.7 8.5 - 10.5 mg/dL [facility] Protein, Total 7.2 6.1 - 8.0 g/dL [facility] Albumin 4.5 3.2 - 5.2 g/dL [facility] Aspartate Aminotransferase 95(H) 0 - 30 unit/L [facility] Comment:result rechecked-bz Alanine Aminotransferase 31(H) 0 - 30 unit/L [facility] Alkaline Phosphatase 70 35 - 105 unit/L [facility] Bilirubin, Total 0.5 0.2 - 1.3 mg/dL [facility] Est Glomerular Filtration Rate 72 >=60 mL/min/1. 73 m?? [facility] [...] MD CHEMISTRY ORDERAB LES [facility] [place] [address] * EKG 12 Lead (03/19/2024 2:23 AM EDT) Ventricular rate 67 BPM MUSE SYSTEM Atrial Rate 67 BPM MUSE SYSTEM P-R Interval 152 ms MUSE SYSTEM QRS Duration 78 ms MUSE SYSTEM Q-T Interval 500 ms MUSE SYSTEM QTC Calculated (Bezet) 528 ms MUSE SYSTEM Calculated P Keldron 54 degrees MUSE SYSTEM Calculated R Keldron 56 degrees MUSE SYSTEM Calculated T Keldron 31 degrees MUSE SYSTEM INTERPRETATION Normal sinus rhythm Prolonged QT Abnormal ECG No previous ECGs available Confirmed by MD Hebert, Destin ([id number]) on 03/23/2024 8:10:32 AM MUSE SYSTEM 03/19/2024 2:23 AM EDT 03/23/2024 8:10 AM EDT Ganesh Nguyen MD ECG ORDERABLES MUSE SYSTEM * (ABNORMAL) Differential, Automated (03/19/2024 2:20 AM EDT) Neutrophil % 89.8 % [facility] Neutrophil Absolute 15.44(H) 1.70 - 6.10 x10(3)/mc L [facility] Lymph % 6.4 % [facility] Lymphocytes Abs 1.1 0.9 - 3.2 x10(3)/mc L [facility] Monocyte % 2.9 % [facility] Monocyte Abs 0.5 0.3 - 0.9 x10(3)/mc L [facility] Eos % 0.1 % [facility] Eosinophils Abs 0.0 0.0 - 0.4 x10(3)/mc L [facility] Basophil % 0.3 % [facility] Baso Absolute 0.0 0.0 - 0.1 x10(3)/mc L [facility] [...] Absolute 0.08(H) 0.00 - 0.04 x10(3)/mc L [facility] Blood 03/19/2024 2:20 AM EDT 03/19/2024 2:59 AM EDT Narrative Resulting Agency Comment Spec In Lab Ganesh Nguyen MD HEMATOLOGY ORDERA BLES [facility] [place] [address] * (ABNORMAL) Hemogram (03/19/2024 2:20 AM EDT) White Blood Cell 17.2(H) 4.0 - 9.5 x10(3)/ L [facility] Red Blood Cell 4.70 4.00 - 5.21 x10(6)/[facility] LABORATORY Hemoglobin 13.3 11.7 - 15.5 g/dL [facility] Hematocrit 38.7 35.7 - 45.8 % [facility] Mean Cell Volume 82.3(L) 82.6 - 94.4 fL [facility] Mean Cell Hemoglobin 28.3 27.1 - 32.0 pg [facility] Mean Cell Hemoglobin Concentration 34.4 31.7 - 35.0 g/dL [facility] Platelet 281 145 - 357 x10(3)/ L [facility] RDW Standard Deviation 41.0 37.0 - 46.0 [facility] RDW coefficient of variation 13.7 11.5 - 14.1 % [facility] Mean Platelet Volume 9.7 7.6 - 12.9 fL [facility] NRBC% auto 0.0 % [facility] NRBC Absolute 0.000 0.000 - 0.000 x10(3)/mc L [facility] Blood 03/19/2024 2:20 AM EDT 03/19/2024 2:59 AM EDT Narrative Resulting Agency Comment Spec In Lab Ganesh Nguyen MD HEMATOLOGY ORDERA BLES Performing Organization Address City/[facility]/ZIP Co de Phone Number [facility] [place] [address] * (ABNORMAL) Troponin (03/19/2024 2:20 AM EDT) Troponin-T, High Sensitivity 960(H) <=14 ng/L [facility] Comment: [...] troponin value can be found in the [facility] Laboratory Test Catalog Troponin - [facility] Laboratory Test Catalog Reference: Fourth Sunman Definition of Myocardial Infarction. Journal of the [employer] College [employer] 2018;72:3583-9307 Blood 03/19/2024 2:20 AM EDT 03/19/2024 2:59 AM EDT Narrative Resulting Agency Comment Spec In Lab Ganesh Nguyen MD CHEMISTRY ORDERAB LES Performing Organization Address City/[facility]/ZIP Co de Phone Number [facility] [place] [address] * (ABNORMAL) APTT (03/19/2024 2:20 AM EDT) Partial Thromboplastin Time 123(Criti lewis) 25 - 37 sec [facility] Comment: Critical Result called by ?? QUINTONAJM CRITICAL Results read back by: ? chang [...] ORDERA BLES Performing Organization Address [facility] Co de Phone Number [facility] [place] [address] * Prothrombin Time (03/19/2024 2:20 AM EDT) Prothrombin Time 11.7 9.4 - 12.5 sec [facility] International Normalization Ratio 1.0 [facility] Comment: An INR [...] ORDERA BLES Performing Organization Address [facility] Co de Phone Number [facility] [place] [address] * (ABNORMAL) Hepatic Function Panel (03/19/2024 2:20 AM EDT) Protein, Total 6.7 6.1 - 8.0 g/dL [facility] Albumin 4.3 3.2 - 5.2 g/dL [facility] Aspartate Aminotransferase 49(H) 0 - 30 unit/L [facility] Alanine Aminotransferase 26 0 - 30 unit/L [facility] Alkaline Phosphatase 67 35 - 105 unit/L [facility] Bilirubin, Total 0.4 0.2 - 1.3 mg/dL [facility] Bilirubin, Direct 0.1 0.0 - 0.3 mg/dL [facility] Blood 03/19/2024 2:20 AM EDT 03/19/2024 2:59 AM EDT Narrative Resulting Agency Comment Spec In Lab Ganesh Nguyen MD CHEMISTRY ORDERAB LES Performing Organization Address City/[facility]/ZIP Co de Phone Number [facility] [place] [address] * (ABNORMAL) pro-Brain Natriuretic Peptide (03/19/2024 2:20 AM EDT) NT-proBNP 529(H) <=124 pg/mL [facility] Blood 03/19/2024 2:20 AM EDT 03/19/2024 2:59 AM EDT Narrative Resulting Agency Comment Spec In Lab Ganesh Nguyen MD CHEMISTRY ORDERAB LES Performing Organization Address City/[facility]/ZIP Co de Phone Number [facility] [place] [address] * Phosphorus (03/19/2024 2:20 AM EDT) Phosphorus 3.8 2.5 - 4.5 mg/dL [facility] Blood 03/19/2024 2:20 AM EDT 03/19/2024 2:59 AM EDT Narrative Resulting Agency Comment Spec In Lab Ganesh Nguyen MD CHEMISTRY ORDERAB LES Performing Organization Address City/[facility]/ZIP Co de Phone Number [facility] [place] [address] * Magnesium (03/19/2024 2:20 AM EDT) Magnesium 0.71 0.69 - 1.07 mmol/L [facility] Blood 03/19/2024 2:20 AM EDT 03/19/2024 2:59 AM EDT Narrative Resulting Agency Comment Spec In Lab Ganesh Nguyen MD CHEMISTRY ORDERAB LES [facility] [place] [address] * (ABNORMAL) Basic Metabolic Panel (non-fasting) (03/19/2024 2:20 AM EDT) Glucose 160 65 - 199 mg/dL [facility] Comment:Diabetes: >=200 mg/d L plus symptoms Blood Urea Nitrogen 14 8 - 18 mg/dL [facility] [...] 98 - 107 mmol/L [facility] Carbon Dioxide 20(L) 22 - 31 mmol/L [facility] Anion Gap 17(H) 5 - 15 mmol/L [facility] Calcium 8.2(L) 8.5 - 10.5 mg/dL [facility] Est Glomerular Filtration Rate 75 >=60 mL/min/1. 73 m?? [facility] [...] MD CHEMISTRY ORDERAB LES [facility] [place] [address] * (ABNORMAL) Point of Care Blood Gas Historical (03/19/2024 1:41 AM EDT) pH, POC 7.28(Criti lewis) 7.35 - 7.45 [facility] pCO2, POC 40 35 - 45 mmHg [facility] pO2, POC 84(L) 85 - 104 mmHg [facility] Base Excess, POC -8.0(L) -3.0 - 3.0 mmol/L [facility] Bicarbonate, POC 18.6(L) 20.0 - 26.0 mmol/L [facility] Carbon Dioxide, POC 20(L) 22 - 31 mmol/L [facility] Sodium, POC 134(L) 135 - 145 mmol/L [facility] POC Potassium 3.4(L) 3.5 - 5.0 mmol/L [facility] Ionized Calcium, POC 1.09(L) 1.15 - 1.33 mmol/L [facility] POC Hematocrit 38.0 34.0 - 45.0 % [facility] POC Calc Hgb 12.9 11.2 - 15.7 g/dL [facility] Blood 03/19/2024 1:41 AM EDT 03/19/2024 1:41 AM EDT Kathryn Walker MD CHEMISTRY ORDERABL ES [facility] [place] [address] * CARDIAC CATHETERIZATION (03/19/2024 1:36 AM EDT) Anatomical Region Laterality Modality Other Narrative 03/19/2024 7:19 AM EDT ?[facility] ? Cardiac Catheterization/Intervention Report ? Patient Name: Jayjay, Isa A. ? Procedure Date: 03/19/2024 ? A #: [id number] ? Primary Physician: Ramo Roy ? Case #: [id number] ? File Name: [id number] ? Catheterization Order Number: [id number] ? [facility] ? Final Report [place], [place] ? Patient Name: ? Isa A. Warnaar ? ID#: ?[id number] ? : ?1965 ? Procedure Date: ? March 19, 2024 ? Case #: ? [id number] ? Room: ? 6 ? Case Physician: ? Ramo Roy MPanteraD. ? Start: ?00:55 ?Fellow: ? John Munroe [...] was ?designated as ASA Class IV. The HA clinical frailty scale is 3: ?Managing Well. [...] procedure was Emergent. The indication for ?the laborer dairy [place] visit is ACS less than or equal [...] ?3.5 guiding catheter and a 3.5 Fr [place] 20 Mhz using auto 1 ?mm/sec pullback. [...] ? A premounted 3.00 x 08 mm [place] (JAHAIRA) was deployed ? with a maximum inflation pressure of 12 atmospheres. ? Another stent insertion was accomplished through a 6 Fr. EBU ? 3.5 guide. ??A premounted 2.00 x 08 mm [employer] [place] (JAHAIRA) was ? deployed. ? The final [...] dose administered prior to arrival in the laborer [place] farm. ?Recommended anti-platelet/anti-thrombotic regimen: ?Start aspirin 81 mg daily now and continue for indefinitely. ?Start clopidogrel 75 mg daily now and continue for 12 months then stop. ?These recommendations are made at the time of the intervention. Patient ?and provider preferences or a changing clinical situation may require ?modification of this regimen. Consult [facility] Interventional [facility]iology for ?questions. ?The 1 year [...] medical treatment. Consult ?http://tools.acc.org/DAPTriskapp/#!/content/calculator/ or [facility] ?Interventional Cardiology for questions ? Conclusions: ?* [...] coronary, stent insertion-coronary and ABG. ? Ramo S Kirill, M.D. ? Electronically Signed by: Ramo Roy, M.D. ? Report Finalized: 03/19/2024 ??01:56 ? Report Last Ammended: 03/21/2024 ??09:37 ? Procedure Note Ramo Roy MD - 03/21/2024 [facility] Cardiac Catheterization/Intervention Report Patient Name: Isa Ro Procedure Date: 03/19/2024 A #: [id number] Primary Physician: Ramo Roy Case #: [id number] File Name: [id number] Catheterization Order Number: [id number] [facility] FinalReport [place], [place] Patient Name: Isa Ro ID#:[id number] :1965 Procedure Date: March 19, 2024 Case [...] patientwas designated as ASA Class IV. The [facility] clinical frailty scale is 3: Managing Well. Diagnostic Tests: Prior Coronary Angiography: Prior coronary angiography was performed on 12/15/2014. Electrocardiography: EKG was assessed by ECG. EKG was Abnormal. EKG showed STDeviation >= 0.5 mm and other abnormality. Medications Prior to Procedure: Aspirin. Indications for Diagnostic Cath: The priority of the diagnostic procedure was Emergent. Theindication for the laborer dairy farm visit is ACS less than or equal [...] 3.5 guiding catheter and a 3.5 Fr [place] 20 Mhz usingauto 1 mm/sec pullback. Imaging [...] priority for the procedure was Emergent.The [facility] indication for the procedure was STEMI-Immediate [...] The lesion was predilated with a 2.50mm [id number] MM balloon with a maximum inflation pressure of 14atmospheres. A premounted 3.00 x 08 mm Alberto [place] (JAHAIRA) wasdeployed with a maximum inflation pressure of 12 atmospheres. Another stent insertion was accomplished through a 6 Fr.EBU 3.5 guide. A premounted 2.00 x 08 mm Reynolds [place] (JAHAIRA)was deployed. The final outcome was defined [...] dose administered prior to arrival in the laborer dairy farm. Recommended anti-platelet/anti-thrombotic regimen: Start aspirin 81 mg daily now and continue for indefinitely. Start clopidogrel 75 mg daily now and continue for 12 months thenstop. These recommendations are made at the time of the intervention.Patient and provider preferences or a changing clinical situation mayrequire modification of this regimen. Consult [facility] Interventional Cardiologyfor questions. The 1 year bleeding [...] any medical treatment.Consult http://tools.acc.org/DAPTriskapp/#!/content/calculator/ or [facility] for questions Conclusions: * One [...] pH, POC 7.20(Criti lewis) 7.35 - 7.45 [facility] pCO2, POC 38 35 - 45 mmHg [facility] pO2, POC 74(L) 85 - 104 mmHg [facility] Base Excess, POC -14.0(L) -3.0 - 3.0 mmol/L [facility] Bicarbonate, POC 14.5(L) 20.0 - 26.0 mmol/L [facility] Carbon Dioxide, POC 16(L) 22 - 31 mmol/L [facility] Sodium, POC 116(Critic al) 135 - 145 mmol/L [facility] POC Potassium 3.1(L) 3.5 - 5.0 mmol/L [facility] Ionized Calcium, POC 1.04(L) 1.15 - 1.33 mmol/L [facility] POC Hematocrit 39.0 34.0 - 45.0 % [facility] POC Calc Hgb 13.3 11.2 - 15.7 g/dL [facility] Blood 03/19/2024 1:26 AM EDT 03/19/2024 1:26 AM EDT Kathryn Walker MD CHEMISTRY ORDERABL ES [facility] [place] [address] documented in this encounter Visit Diagnoses Not [...] at 0709, Until e 03/22/24 at 1411, hypokalemia, Administer for serum [...] (Isoptin) (2.5 mg/mL) injection PRN, Starting on 03/19/24 at 0058, Until 03/19/24 at 1543, Administer over 2 Minutes, Intra-Operative [...] 0836 (Given - Provider: Izaiah Jimenez, TOSHA) 0857 (Given - Provider: Lubna Cruz, RN) atorvastatin (Lipitor) tablet 80 mg 80 mg, Oral, DAILY, First dose (after last modification) on 03/19/24 at 0615, Until Discontinued, Routine 0800 (Given - Provider: Loreta Lopez RN) 0833 (Given - Provider: Izaiah Jimenez, TOSHA) 0857 [...] RN) 0840 (Given - Provider: Izaiah Jimenez, RN)2100 (Given - Provider: Javon Sykes RN) [...] - Provider: Loreta Lopez RN - Comment: headache)211 (Not Given - Provider: Javon Sykse RN - Reason: Patient/family refused - Comment: [...] Routine documented in this encounter Care Teams Insurance Service Representative Relationship Specialty Start Date End Date None None PCP - General 03/19/24 documented as of this encounter
--- OUTSIDE RECORDS SUMMARY | 2024-04-20 23:30 | XMS_ITS | Encounter Summary ---
Author Organization [facility] [place] [address] Care Team Providers Care Hotel Service Manager Name Role Phone None Primary Care Provider Unavailabl e Encounter Details Date Type Department Care Team (Late st Contact Info) Description 03/18/2024 Telephone Cardiology at [address] [phone] Yusuf Herrera MD [facility] [place] [address] Social History Tobacco Use Types Packs/Day Years Used Date Smoking Tobacco: Former Smokeless Tobacco: Never [facility] Inpatient Questions Answer Date Recorded [...] which wasvery severe and reminiscent of prior [place]. Associated with diaphoresis. No syncope, SOB, palpitations, [...] relief, but was still having CP. 03/30/14 [facility] Left main: Free of angiographically significant [...] mg and starting heparin gtt -Launch to [facility] lab rn for lateral wall STEMI Above recommendations/plans are based on my conversation with the referring provider. I have not personally interviewed or examined this patient. Yusuf Herrera MD Brood Station Manager documented in this encounter Plan of Treatment Upcoming Encounters Date Type Department Care Team (Late st Contact Info) Description 04/22/2024 Hospital Encounter Heart and Vascular Unit Level 3 [place] [address] Kiran Amador MD [facility] [place] [address] 05/09/2024 10:40 AM EDT Office Visit Cardiology at [address] [phone] Herlinda Weaver PA [facility] [place] [address] documented as of this encounter Visit Diagnoses Not on filedocumented in this encounter Care Teams Hotel Service Manager Relationship Specialty Start Date End Date None None PCP - General 03/19/24 documented as of this encounter
--- OUTSIDE RECORDS SUMMARY | 2024-04-20 23:30 | XMS_ITS | Encounter Summary ---
Author Organization [facility] [place] [address] Care Team Providers Care Decorating Kiln Operator Name Role Phone Pretty Avery MD Primary Care Provider [phone] Encounter Details Date Type Department Care Team (Late st Contact Info) Description 12/08/2023 10:30 AM EDT Office Visit Dermatology at [facility] [address] [place] [address] Aylin Cole MD [facility] [place] [address] Skin cancer screening; Inflamed seborrheic keratosis; History [...] for FBSE otherwise PRN []Note routed to secretary to board of commissioners [x]Recall placed in scheduling system []Appointment scheduled at checkout Scribe attestation: Juliet Angulo [facility] has performed the documentation for this encounter in the presence of and acting as a scribe for Aylin Cole MD. I performed the above scribed service and agree with the accuracy of the documentation in this encounter. Reviewed and signed by: Aylin Cole MD Dermatology [facility] documented in this encounter Plan of Treatment Upcoming Encounters Date Type Department Care Team (Late st Contact Info) Description 04/22/2024 Hospital Encounter Heart and Vascular Unit Level 3 [place] [address] Kiran Amador MD [facility] [place] [address] 05/09/2024 10:40 AM EDT Office Visit Cardiology at [address] [phone] Herlinda Weaver PA [facility] [place] [address] documented as of this encounter Visit Diagnoses Diagnosis Skin cancer screening Screening for malignant neoplasm of the skin Inflamed seborrheic keratosis History of basal cell carcinoma (BCC) Seborrheic dermatitis Seborrheic dermatitis, unspecified Seborrheic keratoses Multiple benign nevi of upper extremity, lower extremity, and trunk Lentigines Other dyschromia Garcia angioma Nevus, non-neoplastic documented in this encounter Care Teams Decorating Kiln Operator Relationship Specialty Start Date End Date Pretty Avery MD [address] [place] [address] PCP - General 08/06/10 03/18/24 documented as of this encounter
--- OUTSIDE RECORDS SUMMARY | 2024-04-20 23:30 | XMS_ITS | Encounter Summary ---
Author Organization [facility] [place] [address] Care Team Providers Care Freezer Worker Name Role Phone None Primary Care Provider Unavailabl e Reason for Visit * Auth/Cert (Routine) Specialty Diagnoses / Procedures Referred By Contac t Referred To Contact Diagnoses Acute ST elevation myocardial infarction (STEMI) due to occlusion of left anterior descending (LAD) coronary artery stemi Procedures EMERGENCY IPI Destin Ambrosio MD [facility] [place] [address] [facility] Referral ID Status Reason Start Date Expiration Date Visits Re quested Visits Authorized [id number] 1 1 Encounter Details Date Type Department Care Team (Latest Contact Info) Description 03/19/2024 8:10 AM EDT - 03/19/2024 11:59 PM EDT Hospital Encounter Non[place] [address] Discharge Disposition: Home Social History Tobacco Use [...] Vascular Unit Level 3 [place] [phone] Kiran Amador MD [facility] [place] [address] 05/09/2024 10:40 AM EDT Office Visit Cardiology at [address] [phone] Herlinda Weaver PA [facility] [place] [address] documented as of this encounter Procedures Procedure [...] mLs documented in this encounter Care Teams Freezer Worker Relationship Specialty Start Date End Date None None PCP - General 03/19/24 documented as of this encounter
--- OUTSIDE RECORDS SUMMARY | 2024-04-20 23:30 | XMS_ITS | Encounter Summary ---
[place] [address] Care Team Providers Care Payroll Machine Operator Name Role Phone Pretty Avery MD Primary Care Provider [phone] Reason for Referral * Diagnostic Test (Routine) - Closed Specialty Diagnoses / Procedures Referred By Contac t Referred To Contact Cardiology Diagnoses Hyperlipidemia, unspecified hyperlipidemia type Procedures Mobile Demi Gross APRN [address] [place] [address] [facility] [place] [address] Referral ID Status Reason Start Date Expiration Date V isits Requested Visits Authorized [id number] Closed Specialty Service Requested 08/28/2023 08/27/2024 1 1 Reason for Visit * Diagnostic Test (Routine) - Closed Specialty Diagnoses / Procedures Referred By Contac t Referred To Contact Cardiology Diagnoses Hyperlipidemia, unspecified hyperlipidemia type Procedures Mobile Echo Demi Archibald APRN [address] [place] [address] [facility] [place] [address] Referral ID Status Reason Start Date Expiration Date V isits Requested Visits Authorized [id number] Closed Specialty Service Requested 08/28/2023 08/27/2024 1 1 Encounter Details Date Type Department Care Team (Latest Contact Info) Description 08/28/2023 3:53 PM EST - 08/28/2023 11:59 PM EST Hospital Encounter [place] [address] Demi Archibald APRN [address] [place] [address] Hyperlipidemia, unspecified hyperlipidemia type Discharge Disposition: Home [...] Vascular Unit Level 3 [place] [phone] Kiran Amador MD [facility] [place] [address] 05/09/2024 10:40 AM EDT Office Visit Cardiology at [address] [phone] Herlinda Weaver PA [facility] [place] [address] documented as of this encounter Procedures Procedure Name Priority Date/Time Associated Diagnosis Comments ECHO COMPLETE Routine 08/28/2023 4:04 PM EST Hyperlipidemia, unspecified hyperlipidemia type documented in this encounter Results * ECHO COMPLETE (08/28/2023 4:04 PM EST) Anatomical Region Laterality Modality Other 08/28/2023 2:15 PM EST Narrative 08/28/2023 4:14 PM EST [address] [place] [address] ? Echocardiogram Report Name: EZEQUIEL THOMAS ?Study Date: 08/28/2023 02:15 PM ? Patient Location: : 1965 ? Height: 157 cm ? Account: [id number] Age: 58 yrs ? Weight: 57 kg Gender: Female ?BSA: 1.6 m2 Ordering Physician: DEMI ARCHIBALD Referring Physician: DEMI ARCHIBALD Reason For Study: CAD, HLD, HTN Exam Location: [facility]. Interpretation Summary Normal biventricular size and function. LVEF 60-65% by visual assessment. Normal diastolic function. Normal pulmonary pressures. Normal atrial sizes. Mild mitral regurgitation. No prior for comparison. Procedure Complete-[id number]. Satisfactory quality. Left Ventricle Wall thickness is [...] Note Kaylee Sutherland MD - 08/28/2023 [address] [place] [id number] Echocardiogram Report Name: EZEQUIEL THOMAS Study Date:08/28/2023 02:15 PM Patient Location: : 1965 Height: 157 cm Account: [id number] Age: 58 yrs Weight: 57 kg Gender: Female BSA: 1.6 m2 Ordering Physician: DEMI ARCHIBALD Referring Physician: DEMI ARCHIBALD Reason For Study: CAD, HLD, HTN Exam Location: [facility]. Interpretation Summary Normal biventricular size and function. LVEF 60-65% by visual assessment.Normal diastolic function. Normal pulmonary pressures. Normal atrial sizes. Mild mitral regurgitation. No prior for comparison. Procedure Complete-[id number]. Satisfactory quality. Left Ventricle Wall thickness is [...] type documented in this encounter Care Teams Payroll Machine Operator Relationship Specialty Start Date End Date Pretty Avery MD [address] [place] [address] PCP - General 08/06/10 03/18/24 documented as of this encounter
--- OUTSIDE RECORDS SUMMARY | 2024-04-20 23:30 | XMS_ITS | Encounter Summary ---
Author Organization [facility] Address [facility] [place] [address] Care Team Providers Care Ben Day Artist Name Role Phone Pretty Avery MD Primary Care Provider [phone] Encounter Details Date Type Department Care Team [...] Vascular Unit Level 3 [place] [phone] Kiran Amador MD [facility] [place] [address] 05/09/2024 10:40 AM EDT Office Visit Cardiology at [address] [phone] Herlinda Weaver PA [facility] [place] [address] documented as of this encounter Visit Diagnoses Not on filedocumented in this encounter Care Teams Ben Day Artist Relationship Specialty Start Date End Date Pretty Avery MD [address] [place], [place] [address] PCP - General 08/06/10 03/18/24 documented as of this encounter
--- OUTSIDE RECORDS SUMMARY | 2024-04-20 23:30 | XMS_ITS | Encounter Summary ---
Author Organization [facility] [place] [address] Care Team Providers Care Dealer Relationship Manager Name Role Phone None Primary Care Provider Unavailabl e Encounter Details Date Type Department Care Team (Late st Contact Info) Description 03/18/2024 External Results Emergency Department [facility] [place] [phone] Social History Tobacco Use Types Packs/Day Years Used Date Smoking Tobacco: Former Smokeless Tobacco: Never [facility] Utilities Answer Date Recorded In the [...] were you homeless or living in a long-term (including now)? No 03/21/2024 [facility] Inpatient Questions Answer Date [...] Vascular Unit Level 3 [place] [address] Kiran Amador MD [facility] [place] [address] 05/09/2024 10:40 AM EDT Office Visit Cardiology at [address] [address] Herlinda Weaver PA [facility] [place] [address] documented as of this encounter Procedures Procedure Name Priority Date/Time Associated Diagnosis Comments ECG SCAN Routine 03/18/2024 10:18 PM EDT ECG SCAN Routine 03/18/2024 10:09 PM EDT documented in this encounter Results * Scan Doc: ECG (03/18/2024 10:18 PM EDT) Historical Provider MD GARCIA MGR SCAN EX T ORDR/RSLT * Scan Doc: ECG (03/18/2024 10:09 PM EDT) Historical Provider MD GARCIA MGR SCAN EX T ORDR/RSLT documented in this encounter Visit Diagnoses Not on filedocumented in this encounter Care Teams Dealer Relationship Manager Relationship Specialty Start Date End Date None None PCP - General 03/19/24 documented as of this encounter
--- OUTSIDE RECORDS SUMMARY | 2024-04-20 23:30 | XMS_ITS | Encounter Summary ---
Author Organization [facility] [place] [address] Care Team Providers Care Systems Accountant Name Role Phone Pretty Avery MD Primary Care Provider [phone] Reason for Visit * Reason Comments Skin Check Encounter Details Date Type Department Care Team (Late st Contact Info) Description 02/04/2017 1:15 PM EDT Office Visit Dermatology at [facility] [address] [place] [address] Lisa Candelario MD [facility] [place] [address] Seborrheic keratosis; Multiple benign nevi; History of [...] Lisa Candelario MD Section of Dermatology [facility] documented in this encounter Plan of Treatment Upcoming Encounters Date Type Department Care Team (Late st Contact Info) Description 04/22/2024 Hospital Encounter Heart and Vascular Unit Level 3 [place] [address] Kiran Amador MD [facility] [place] [address] 05/09/2024 10:40 AM EDT Office Visit Cardiology at [address] [phone] Herlinda Weaver PA [facility] [place] [address] documented as of this encounter Visit Diagnoses Diagnosis Seborrheic keratosis Other seborrheic keratosis Multiple benign nevi Benign neoplasm of skin, site unspecified History of basal cell cancer Personal history of other malignant neoplasm of skin documented in this encounter Care Teams Systems Accountant Relationship Specialty Start Date End Date Pretty Avery MD [address] [place] [address] PCP - General 08/06/10 03/18/24 documented as of this encounter
[2024-04-21] VITALS (41 sets, daily range): BP systolic 86–181; BP diastolic 63–113; PULSE 51–75; RESP 3–21; TEMP 36.1–37.2; O2SAT 95–100
[2024-04-21 00:42] LABS: PTT Activated 47.8 sec (23.6-32.8)
[2024-04-21 00:54] LABS: TSH 3.23 uIU/Ml (0.36-3.74); Troponin I < 50 ng/L (< or =60)
[2024-04-21 09:08] LABS: ALT 25 U/L (14-59); AST 19 U/L (15-37); Albumin 3.5 g/dL (3.4-5.0); Alkaline Phosphatase 71 U/L (46-116); Anion Gap 8.1 mmol/L (3-11); BUN 20 mg/dL (7-18); Bilirubin, Total 0.26 mg/dL (0.2-1.0); CO2 25.9 mmol/L (21.0-32.0); Calculated LDL 85 mg/dL (<100); Chloride 107 mmol/L (98-107); Cholesterol 157 mg/dL (<200); Estimated GFR 64.49 (mL/min/1.73m2); Glucose 90 mg/dL (74-106); HDL Cholesterol 53 mg/dL (40-60); Potassium 4.3 mmol/L (3.5-5.1); Sodium 141 mmol/L (136-145); Total Protein 6.8 g/dL (6.4-8.2); Triglyceride 96 mg/dL (<150)
--- NOTE | 2024-04-21 09:29 | PDOC.CMIN ---
Date of service: 04/21/24 Time of Service: 09:29 Care Management Initial Assmt Initial Assessment Reason for Hospitalization: NSTEMI Functional Status/Living Situation Town of Residence: [facility] Medications Medication Management: No Issues/Barriers identified Advance Directives Advance Directives: Do you have an Advance Directive: N 12/10/22 10:13 AD On File at [facility]: N 12/10/22 10:13 Date Asked 04/20/24 04/20/24 11:29 AD Date Reviewed COLST On File at [facility] COLST Date Scanned Code Status Resuscitation Status Full Code Portal Pt does not currently have a portal and education provided: No Insurance Coverage/Financial Issues Insurance: Managed Medicaid Care Team Visit Care Team Role Provider Type Isa Estrada Primary Care Provider NON-[facility] STAFF PHYSICIAN Skip Hickey MD Emergency Provider [facility] STAFF PHYSICIAN Destin Billings Admit Provider [facility] [employer] [facility] [employer] STAFF PHYSICIAN Attending Provider Discharge Potential Discharge Needs: Other (transfer to [facility]) Anticipated Barriers to Discharge: Bed availability Transportation: EMS Plan: Isa has been accepted for transfer to [facility]. She will transport via EMS coordinated by the nursing medical assistant supervisor and follow up with facility providers and plan of care. CM will follow and continue to assess for discharge needs. PFSH All Active Problems NSTEMI (non-ST elevated myocardial infarction) (Acute) Chest pain (Acute) Abdominal bloating (Acute) RLQ abdominal pain (Acute) Recurrent epistaxis (Acute) ASCVD (arteriosclerotic cardiovascular disease) (Acute) Right flank pain (Acute) Hyperlipidemia (Chronic) GERD (gastroesophageal reflux disease) (Chronic) HTN (hypertension) with goal to be determined (Acute) Rash (Acute) Neck pain (Acute) Duodenitis (Acute) Chronic fatigue and malaise (Acute) Sciatica, unspecified side (Acute) Headache, post-traumatic (Acute) Pain, joint, shoulder, right (Acute) Migraine aura without headache (Chronic) Migraine headache with aura (Chronic) Disorder of vision (Acute 11/28/13) Difficulty speaking (Acute 11/28/13) Blurring of visual image (Acute 11/28/13) Change in bowel habits (Acute) Medical History Family history of colon cancer History of placement of stent in LAD coronary artery 03/2014 [facility] No-show for appointment Preventative health care Constipation Hypertension Abdominal pain Asthma, exercise induced Tick bite Hypothyroidism Dysphagia Surgical History H/O colonoscopy (06/18/18) Dr Mauricio, vini, repeat in 10 years History of esophagogastroduodenoscopy (EGD) (06/18/18) Dr Mauricio, vini, repeat PRN History of History of coronary artery stent placement Family History Father Glioblastoma Hyperlipidemia Heart disease Paternal Grandmother Glioblastoma Mother Hypertension Heart disease Social History Smoking/Tobacco Use Status: Former Tobacco Use Quit Date: 09/14/03 Tobacco: How many years used: 10 Smoking risk assessment performed?: Yes Alcohol Intake: current Alcohol Intake frequency: 0-2 drinks per day Alcohol type: beer and hard liquor Drug use: Occasionally Substance use type: marijuana Household members: family Housing: house Number of Children: 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 SDOH(Care Management) Screening Will the Patient Participate in the Screening?: Yes Do you worry about having a steady place to live?: no Problems where you live: no known problems In the past 12 months, have you had to go without electric, gas, oil or water in your home?: no Have you or anyone in your house had to go without enough food to eat?: no Has lack of transportation kept you from medical appointments or from doing things needed for daily living?: no Has anyone in your support network made you feel unsafe for any reason?: no
[2024-04-21] MEDS: Cholecalciferol (Vitamin D3) 1,000 UNIT TAB 1000 UNITS PO (09:31)
[2024-04-21] MEDS: Aspirin 81 MG CHEW PO (09:31)
[2024-04-21] MEDS: Clopidogrel 75 MG TAB PO (09:31)
[2024-04-21] MEDS: Normal Saline Flush 10 ML SYR IVP (09:32)
[2024-04-21 10:20] LABS: Troponin I < 50 ng/L (< or =60)
[2024-04-21 10:22] LABS: HCT 42.2 % (36.0-46.0); HGB 13.9 g/dL (11.2-15.7); RBC 5.06 10^6/uL (3.93-5.22)
[2024-04-21 10:23] LABS: MCH 27.5 pg (27.0-33.0); MCHC 32.9 % (32.0-36.0); MCV 83 fL (80-95); Platelet Count 212 10^3/uL (130-400); RDW-SD 39.3 fL
[2024-04-21 10:33] LABS: PTT Activated 68.7 sec (23.6-32.8)
--- NOTE | 2024-04-21 11:17 | PHA.REVIEW2 ---
Pharmacy Admission Review Admission Clinical Review Admission Pharmacy Review: NSTEMI (non-ST elevated myocardial infarction) (Acute) Chest pain (Acute) HTN (hypertension) with goal to be determined (Acute) hydrochlorothiazide Allergy (Verified 04/20/24 11:34) unknown lisinopril Allergy (Verified 04/20/24 11:34) unknown dust Allergy (Mild, Uncoded 04/20/24 11:34) Itching mold Allergy (Uncoded 04/20/24 11:34) Other (See Comment) Resuscitation Status Full Code Height 5 ft 2 in Weight 54.8 kg Pharmacy Admission Review Renal Dosing Renal Dosing: BUN 20 mg/dL (7-18) H 04/21/24 05:40 Creatinine 1.0 mg/dL (0.55-1.02) 04/21/24 05:40 Medications needing adjustments: Reviewed (CrCl 51 mL/min, BUN increased from 14) List of meds needing interventions: Current medications are okay Anticoagulation Anticoagulation: Hgb 13.9 g/dL (11.2-15.7) 04/21/24 05:40 Hct 42.2 % (36.0-46.0) 04/21/24 05:40 Plt Count 212 10^3/uL (130-400) 04/21/24 05:40 INR 1.0 (0.9-1.1) 04/20/24 11:30 Creatinine 1.0 mg/dL (0.55-1.02) 04/21/24 05:40 Therapeutic Anticoagulation: Reviewed Medications: Heparin (infusion) Opiate Usage Evaluate Pain Scale/Pains Meds: Reviewed (morphine PRN - no doses given so far) Scheduled Bowel Reg ordered if on Opiates?: No (PRN docusate/Miralax) Relevant Labs Relevant Labs: Sodium 141 mmol/L (136-145) 04/21/24 05:40 Potassium 4.3 mmol/L (3.5-5.1) 04/21/24 05:40 Chloride 107 mmol/L (98-107) 04/21/24 05:40 Magnesium 2.1 mg/dL (1.8-2.4) 04/20/24 11:30 Electrolytes, C-Reactive P, ESR: Reviewed Cardiac Review Cardiac Review: Troponin I < 50 ng/L (< or =60) 04/21/24 05:40 NT-Pro-B Natriuret Pep 1278 pg/mL (<300) H 04/20/24 11:30 Blood Pressure [Left Arm] 132/69 Blood Pressure [Left Arm] 145/70 Blood Pressure 126/113 0834 Blood Pressure 126/113 0832 Blood Pressure 86/72 0817 Blood Pressure 129/70 0801 Blood Pressure 134/71 0746 Blood Pressure 139/63 0731 Blood Pressure 122/71 0716 Blood Pressure 146/75 0701 BP, HR, EF%: Reviewed (HR 55 - has been ranging in the 50s all morning) QTc Review QTc: Reviewed (422 from 04/20/24) IV to PO Switch IV Medications: Reviewed (heparin, morphine and pantoprazole) Home Meds Home Med List reviewed: Intervened Relevent Home Meds Not ordered & why?: alprazolam (has order for PRN lorazepam), ibuprofen (PRN), omega-3, rosuvastatin (has order for high intensity atorvastatin) Lidocaine 5% cream changed to patients own order Patient takes losartan 12.5mg PO daily at home, current order is for 25mg daily. Reached out to provider to make sure the order is correct. Provider asked that the order be changed to patients home dose of 12.5mg daily. Current Meds Current Medication Order Review: Reviewed
--- NOTE | 2024-04-21 14:28 | PGE_ITS ---
Date of Service Date of service: 04/21/24 Time of Service: 14:28 Assessment and Plan Assessment and plan (1) NSTEMI (non-ST elevated myocardial infarction): Start date: 04/20/24 Status: Acute Assessment and plan: -known CAD status post stenting of LAD in 2013 and subsequent occurrence 1 month ago with PTCA and stenting of LAD -presented today with 3-day history of chest pain in her retrosternal area over the left with exertion such as walking up hill -It was mild and achy and she feels that exertion makes it more pronounced. -She did not have relief with nitroglycerin given for chest pain in the ED and continued to have intermittent discomfort as reported by ED provider. -She did have new T wave inversions inferior laterally with slightly improved on heparin infusion with normal troponin. -accpted tfor transfer to [facility] for left heart cath once a bed is available; Dr. Leo is the accepting physician -Will continue heparin infusion with Plavix and high-dose statin along with metoprolol advancing to blood pressure control (2) Chest pain: Status: Acute Assessment and plan: -as noted above Qualifiers: Chest pain type: other chest pain Qualified Code(s): R07.89 - Other chest pain (3) CAD (coronary artery disease): Status: None Assessment and plan: -as noted above Qualifiers: Coronary Disease-Associated Artery/Lesion type: [place] artery [place] vs. transplanted heart: [place] heart Associated angina: with other forms of angina Qualified Code(s): I25.118 - Atherosclerotic heart disease of [place] coronary artery with other forms of angina pectoris (4) HTN (hypertension) with goal to be determined: Status: Acute Assessment and plan: -Slightly exacerbated with patient anxious, Ativan if needed and advance metoprolol as tolerated. (5) Hyperlipidemia: Status: Chronic Assessment and plan: -Continue high-dose statin. Qualifiers: Hyperlipidemia type: mixed hyperlipidemia Qualified Code(s): E78.2 - Mixed hyperlipidemia Subjective Subjective Interval history since last seen: Patient states that she is doing well. She was initially hesitant to go through with transfer for her left heart cath. However, it was explained to her that having EKG changes is a significant enough finding to warrant have another cath and to ensure that she is not have worsening or new coronary artery occlusion. She expressed understanding, and agreed to transfer and cath. Exam Narrative Exam Narrative: well appearing female laying in bed in no acute distress, AOx4, heart RRR, lungs CTAB, abdomen soft, non-tender, non-distended Objective Last Vital Signs Temp 98.2 F 04/21/24 12:00 Pulse 63 04/21/24 14:01 Resp 16 04/21/24 14:01 BP 181/84 H 04/21/24 14:01 Pulse Ox 100 04/21/24 13:46 Laboratory Results - last 24 hr 04/20/24 04/20/24 04/21/24 14:40 23:58 05:40 WBC 8.50 RBC 5.06 Hgb 13.9 Hct 42.2 MCV 83 MCH 27.5 MCHC 32.9 RDW 13.0 Plt Count 212 MPV 10.0 APTT 47.8 H Sodium 141 Potassium 4.3 Chloride 107 Carbon Dioxide 25.9 Anion Gap 8.1 BUN 20 H Creatinine 1.0 Est GFR (CKD-EPI 2020) 64.49 Glucose 90 Calcium 9.0 Total Bilirubin 0.26 AST 19 ALT 25 Alkaline Phosphatase 71 Troponin I < 50 < 50 < 50 Total Protein 6.8 Albumin 3.5 Triglycerides 96 Total Cholesterol 157 LDL Cholesterol, Calc 85 HDL Cholesterol 53 TSH 3.23 04/21/24 09:50 WBC RBC Hgb Hct MCV MCH MCHC RDW Plt Count MPV APTT 68.7 H Sodium Potassium Chloride Carbon Dioxide Anion Gap BUN Creatinine Est GFR (CKD-EPI 2020) Glucose Calcium Total Bilirubin AST ALT Alkaline Phosphatase Troponin I Total Protein Albumin Triglycerides Total Cholesterol LDL Cholesterol, Calc HDL Cholesterol TSH PAWSS Have you Been Recently Intoxicated or Drunk Within the Last 30 days?: No Have you Ever Experienced Previous Episodes of Alcohol Withdrawal?: No Have you ever Experienced Withdrawal Seizures?: No Have you ever Experienced Delirium Tremens(DT)s?: No Have you ever undergone Alcohol Rehabilitation Treatment (i.e, inpt ot outpatient treatment programs)?: No Have you ever Experienced Blackouts?: No Have you ever Combined Alcohol with other Downers within the last 90 days?: No Have you ever Combined Alcohol with any other Substance of Abuse during the last 90 days?: No Positive Blood Alcohol level on Presentation? [PCS.BAL]: No Evidence of Increased Autonomic Activity (i.e. HR>120, tremor, sweating, agitation, nausea)?: No Result: 0 Time Spent with Patient Time Spent with Patient: >50 minutes Time was spent: preparing to see the patient(eg.review tests), obtaining and/or reviewing separately otained hiistory, ordering medications,tests, procedures, referring, communicating with other health childcare worker, indepentently interpreting results, counseling the patient and care coordination
--- NOTE | 2024-04-21 15:04 | CHAPLAIN ---
Isa was standing up because she felt more comfortable that way, when I visited. She said she was debating whether or not to wait for the transfer [place] [facility] for [place] cardiac cath or to leave AMA. 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 She was considering going home and returning if she felt more symptoms. She was hoping to talk with the hospitalist before making a decision. [facility] [place] accepted her, and she is waiting for bed. I listened and offered support. Later Isa did speak with the hospitalist and agreed to wait for the transfer to [facility].
[2024-04-21] MEDS: Metoprolol 12.5 MG TAB PO (16:22)
[2024-04-21 16:29] LABS: PTT Activated 55.2 sec (23.6-32.8)
--- NOTE | 2024-04-21 17:29 | W.PM.DS.N ---
Date of service: 04/21/24 Time of Service: 17:29 DS: Diagnosis Discharge Diagnosis (1) NSTEMI (non-ST elevated myocardial infarction): Status: Acute (2) Chest pain: Status: Acute (3) CAD (coronary artery disease): Status: None (4) HTN (hypertension) with goal to be determined: Status: Acute (5) Hyperlipidemia: Status: Chronic Discharge Plan Disposition Patient Disposition: Transfer-Acute Inpatient Care Specific Acute Inpt Facility: [facility] Condition: Stable Discharge Details Reason For Visit: NSTEMI, CAD Admit Date/Time: 04/20/24 21:49 Admit Provider: Destin Billings Attending Provider: Destin Billings Primary Care Provider: Isa Estrada [facility] Course Hospital Course: Patient initially presented with chest pain that was determined to be secondary to NSTEMI as patient had negative troponins but did have EKG changes as compared to previous. Given that she had a recent cardiac catheterization and stent placement at [facility] and they were consulted in the emergency department to determine the patient should be started on aspirin, Plavix and a heparin drip and accepted the patient for transfer for cardiac catheterization. Patient remained stable during hospitalization, did not have any recurrence of chest pain or further changes in her EKG. Ultimately, it was determined that she was stable for discharge to [facility] for left heart catheterization. Home Meds and New Rx's Prescriptions: No Action alprazolam [Xanax] 0.5 MG tablet 0.5 mg PO prn flying nitroglycerin [Nitrostat] 0.4 MG tablet, sublingual 0.4 mg Buccal ONCE acetaminophen [Tylenol Extra Strength] 500 MG tablet 500 mg PO PRN PRN ibuprofen [Advil] 200 MG tablet 1 tab PO PRN PRN Patient Comments: not taking 06/24/23 Emergen-C 1,000 mg Powder Effervescent In Packet 1 ea PO PRN PRN Home Made Herbal Tinctures 1 dose PO PRN PRN losartan 25 mg tablet 12.5 mg PO DAILY Patient Comments: not taking 06/24/23 omega-3 fatty acids Capsule 1 cap PO DAILY Rx Instructions: unknown dose cholecalciferol (vitamin D3) [Vitamin D3] 25 mcg (1,000 unit) Tablet 25 mcg PO DAILY Rx Instructions: PT unknown dose lidocaine 5 % cream 1 applic topical QID PRNQty: 15 1RF Rx Instructions: Apply to intact skin only and do not use on mucosal membranes rosuvastatin 40 mg tablet 40 mg PO DAILY Patient Comments: TAKE ONE TABLET BY MOUTH EVERY DAY metoprolol succinate 25 mg tablet extended release 24 hr 12.5 mg PO DAILY Patient Comments: TAKE ONE-HALF TABLET BY MOUTH NIGHTLY Discharge Instructions Activity:: Activity as Tolerated Equipment/Supplies:: No Equipment Needed Diet:: As Tolerated Discharge Orders Discharge Orders: Discharge Order (Routine); Ordered 04/21/24 Ordered By: Dnaie Rojas DS: Summary Time Spent with Patient providing and/or coordinating discharge services: Greater than 30 minutes Status at Discharge Functional status at discharge: independent ambulation Overall status at discharge: patient is back to baseline Mental Status: mental status grossly normal Speech and Movement: speech and movement normal Mood: congruent mood Affect: normal affect Quality:SDOH Health Related Social Needs: No Data to Display Exam Narrative Exam Narrative: well appearing female laying in bed in no acute distress, AOx4, heart RRR, lungs CTAB, abdomen soft, non-tender, non-distended Psych Mental Status: mental status grossly normal Speech and Movement: speech and movement normal Mood: congruent mood Affect: normal affect DS: Data Vitals/I&O Vitals and I&O: Vital Signs Temperature 98.2 F 04/21/24 12:00 Temperature Source Temporal Artery Scan 04/21/24 12:00 Pulse 57 L 04/21/24 14:46 Pulse 67 04/21/24 15:50 Respiratory Rate 14 04/21/24 15:50 Respiratory Effort Normal 04/21/24 12:00 Respiratory Depth Normal 04/21/24 12:00 Respiratory Pattern Normal 04/21/24 12:00 Blood Pressure 158/81 H 04/21/24 14:46 Blood Pressure Mean 102 04/21/24 14:46 Blood Pressure Position Supine 04/21/24 04:57 Pulse Oximetry 100 04/21/24 14:46 Oxygen Delivery Method Room Air 04/21/24 04:57 Oxygen Flow Rate 0 04/21/24 04:57 Pain Level 2 04/20/24 23:36 Intake & Output 04/20/24 04/21/24 04/21/24 17:59 05:59 17:59 Intake Total 60.480 / 70.480 108.533 / 108.533 Output Total 200 / 200 200 / 200 Balance -139.520 / -129.520 -91.467 / -91.467 Weight 125 lb 120 lb 13.013 oz Intake: IV 60.480 / 70.480 108.533 / 108.533 Output: Urine 200 / 200 200 / 200 Other: Urine Color Yellow Yellow Urine Appearance Clear Urine Odor Normal Voiding Methods Bedside Commode Bedside Commode Data Completed and Pending Labs on day of discharge: Labs from last 24 hours 04/21/24 04/21/24 04/21/24 15:55 09:50 05:40 WBC 8.50 RBC 5.06 Hgb 13.9 Hct 42.2 MCV 83 MCH 27.5 MCHC 32.9 RDW 13.0 Plt Count 212 MPV 10.0 APTT 55.2 H 68.7 H Sodium 141 Potassium 4.3 Chloride 107 Carbon Dioxide 25.9 Anion Gap 8.1 BUN 20 H Creatinine 1.0 Est GFR (CKD-EPI 2020) 64.49 Glucose 90 Calcium 9.0 Total Bilirubin 0.26 AST 19 ALT 25 Alkaline Phosphatase 71 Troponin I < 50 Total Protein 6.8 Albumin 3.5 Triglycerides 96 Total Cholesterol 157 LDL Cholesterol, Calc 85 HDL Cholesterol 53 TSH 04/20/24 23:58 WBC RBC Hgb Hct MCV MCH MCHC RDW Plt Count MPV APTT 47.8 H Sodium Potassium Chloride Carbon Dioxide Anion Gap BUN Creatinine Est GFR (CKD-EPI 2020) Glucose Calcium Total Bilirubin AST ALT Alkaline Phosphatase Troponin I < 50 Total Protein Albumin Triglycerides Total Cholesterol LDL Cholesterol, Calc HDL Cholesterol TSH 3.23 PFSH All Active Problems NSTEMI (non-ST elevated myocardial infarction) (Acute) Chest pain (Acute) Abdominal bloating (Acute) RLQ abdominal pain (Acute) Recurrent epistaxis (Acute) ASCVD (arteriosclerotic cardiovascular disease) (Acute) Right flank pain (Acute) Hyperlipidemia (Chronic) GERD (gastroesophageal reflux disease) (Chronic) HTN (hypertension) with goal to be determined (Acute) Rash (Acute) Neck pain (Acute) Duodenitis (Acute) Chronic fatigue and malaise (Acute) Sciatica, unspecified side (Acute) Headache, post-traumatic (Acute) Pain, joint, shoulder, right (Acute) Migraine aura without headache (Chronic) Migraine headache with aura (Chronic) Disorder of vision (Acute 11/28/13) Difficulty speaking (Acute 11/28/13) Blurring of visual image (Acute 11/28/13) Change in bowel habits (Acute) Medical History Family history of colon cancer History of placement of stent in LAD coronary artery 03/2014 [facility] No-show for appointment Preventative health care Constipation Hypertension Abdominal pain Asthma, exercise induced Tick bite Hypothyroidism Dysphagia Surgical History H/O colonoscopy (06/18/18) Dr aMuricio, vini, repeat in 10 years History of esophagogastroduodenoscopy (EGD) (06/18/18) vini Burrows, repeat PRN History of History of coronary artery stent placement Family History Father Glioblastoma Hyperlipidemia Heart disease Paternal Grandmother Glioblastoma Mother Hypertension Heart disease Social History Smoking/Tobacco Use Status: Former Tobacco Use Quit Date: 09/14/03 Tobacco: How many years used: 10 Smoking risk assessment performed?: Yes Alcohol Intake: current Alcohol Intake frequency: 0-2 drinks per day Alcohol type: beer and hard liquor Drug use: Occasionally Substance use type: marijuana Household members: family Housing: house Number of Children: 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
--- NOTE | 2024-04-21 20:59 | NUR.NOTE ---
Nursing Note: patient had uneventful transfer to [address], denied CP during transfer, report given to [facility] RN VS: 1800 BP 137/37 Pulse 64 Spo2 97% ra Resp 17 1825 BP 137/75 pulse 63 Spo2 97% ra Resp 17 1854 BP138/81 pulse 59 Spo2 97% RA Resp 16
== END 2024-04-21 18:05 | disposition short-term general hospital (02) | DRG 282 ==
LOC: ER 19:25 → ICU 23:26
PROVIDERS: Family Medicine; Student in an Organized Health Care Education/Training Program; Admitting Provider Family Medicine; Emergency Provider Emergency Medicine; PCP Family Medicine; Visit Provider Family Medicine
DX: I21.4 Non-ST elevation (NSTEMI) myocardial infarction (principal); I25.118 Atherosclerotic heart disease of native coronary artery with other forms of angina pectoris; I10 Essential (primary) hypertension; E78.2 Mixed hyperlipidemia; Z95.5 Presence of coronary angioplasty implant and graft; K21.9 Gastro-esophageal reflux disease without esophagitis; G43.109 Migraine with aura, not intractable, without status migrainosus; R10.31 Right lower quadrant pain; R14.0 Abdominal distension (gaseous); M54.2 Cervicalgia; R53.82 Chronic fatigue, unspecified; Z80.0 Family history of malignant neoplasm of digestive organs; E03.9 Hypothyroidism, unspecified; J45.990 Exercise induced bronchospasm
CPT/HCPCS: 00123; 36415; 80053; 80061; 85027; 93005; 96365; 96366; 99285; 71045; 83735; 83880; 84443; 84484; 85025; 85610; 85730; 93010; 99223; 99238; J1644; J3490

== ENCOUNTER 2024-04-27 10:00 | Outpatient (RCR) | payer MEDICAID, SELFPAY ==
--- NOTE | 2024-04-20 10:15 | RT.EKG_ITS ---
APPROVED REPORT Exam: Resting ECG Reason for Exam: chest discomfort Patient Location: O HR:57 bpm ECG Measurements Heart Rate 57 AXIS MS 151 P 58 QRSd 84 QRS 71 QT 473 T 159 QTc 461 Conclusion Sinus rhythm...normal P axis, V-rate 50- 99 Probable left atrial enlargement...P >50mS, <-0.10mV V1 Abnrm T, probable ischemia, anterolateral lds...T <-0.50mV, I aVL V2-V6
--- OUTSIDE RECORDS SUMMARY | 2024-04-20 11:46 | XMS_ITS | Encounter Summary ---
Author Organization [facility] Address [address] [place] [address] Care Team Providers Care Stand In Name Role Phone Pretty Avery MD Primary Care Provider [phone] Encounter Details Date Type Department Care Team (Late st Contact Info) Description 08/23/2020 Lab Requisition [facility] Pathology & [place] [address] Outr Resulting Lab, Provider Social History Tobacco [...] rt-PCR Result NEGATIVE Negative 08/25/2020 8:37 EST [facility] Comment: 2019-novel Coronavirus (2019-nCoV) not detected [...] Outr Resulting Lab MICROBIOLOGY - GENERAL ORDERABLES [facility] [place], [place] * COVID-19 TESTING (08/22/2020 13:10 EST) COVID-19 rt-PCR Result NEGATIVE Negative 08/25/2020 10:01 EST [facility] Comment: 2019-novel Coronavirus (2019-nCoV) not detected [...] Administration's Emergency Use Authorization. Performing Lab [facility] Success 08/25/2020 10:01 EST [facility] Swab 08/22/2020 13:1 0 EST 08/23/2020 15:58 EST Provider Outr Resulting Lab MICROBIOLOGY - GENERAL ORDERABLES [facility] [address] [place] [address] [facility] [place] documented in this encounter Visit Diagnoses Not on filedocumented in this encounter Care Teams Stand In Relationship Specialty Start Date End Date Pretty Avery MD [address] [place] [address] PCP - General 06/05/10 documented as of this encounter
--- OUTSIDE RECORDS SUMMARY | 2024-04-20 11:46 | XMS_ITS | Encounter Summary ---
Author Organization [facility] Address [address] [place] [address] Care Team Providers Care Severity Of Illness Coordinator Name Role Phone Pretty Avery MD Primary Care Provider [phone] Encounter Details Date Type Department Care Team (Late st Contact Info) Description 06/18/2018 Results Only [facility] [phone] Marietta Mauricio, DO [address] [place] [address] Social History Tobacco Use Types [...] ? EZEQUIEL THOMAS ? Accession #: ? [id number] ? : ? 1965 (Age: 53) ??F [...] Meyers 06/19/2018 9:42 AM End of Report [facility] 06/18/2018 16:1 9 EDT 06/18/2018 16:19 EDT Marietta Mauricio DO PATHOLOGY ORDERABLES [facility] [address] [place] [address] documented in this encounter Visit Diagnoses Not on filedocumented in this encounter Care Teams Severity Of Illness Coordinator Relationship Specialty Start Date End Date Pretty Avery MD [address] [place] [address] PCP - General 06/05/10 documented as of this encounter
--- OUTSIDE RECORDS SUMMARY | 2024-04-20 11:46 | XMS_ITS | Referral Summary ---
Author Organization [facility] Address [address] [place] [address] Care Team Providers Care Clothespin Machine Operator Name Role Phone Pretty Avery MD Primary Care Provider [phone] Allergies No known active allergies Medications Medication [...] Date NSTEMI (non-ST elevated myocardial infarction) ( [facility]) 03/30/2014 Social History Tobacco Use Types [...] Advance Directives For more information, please contact: [phone] * Full Code (Latest Code Status on File) Date Activated Date Inactivated Comments 12/15/2014 9:53 12/15/2014 18:00 Question Answer Comments Reason for decision includes: Full code consistent with overall plan of care Who participated in the discussion? Patient * Full Code Date Activated Date Inactivated Comments 03/30/2014 20:42 04/01/2014 17:36 Care Teams Clothespin Machine Operator Relationship Specialty Start Date End Date Pretty Avery MD [address] [place] [address] PCP - General 06/05/10
--- OUTSIDE RECORDS SUMMARY | 2024-04-20 11:46 | XMS_ITS | Encounter Summary ---
Author Organization [facility] Address [address] [place] [address] Care Team Providers Care Blasting Miner Name Role Phone Pretty Avery MD Primary Care Provider [phone] Encounter Details Date Type Department Care Team (Latest Contact Info) Description 04/08/2018 9:44 EDT - 04/08/2018 23:59 EDT Hospital Encounter [facility] [address] [place] [address] Unknown, Provider, Discharge Disposition: Home or Self [...] on filedocumented in this encounter Care Teams Blasting Miner Relationship Specialty Start Date End Date Pretty Avery MD [address] [place] [address] PCP - General 06/05/10 documented as of this encounter
--- OUTSIDE RECORDS SUMMARY | 2024-04-20 11:46 | XMS_ITS | Encounter Summary ---
Author Organization [facility] Address [address] [place] [address] Care Team Providers Care Plumber Gasfitter Name Role Phone Pretty Avery MD Primary Care Provider [phone] Encounter Details Date Type Department Care Team (Latest Contact Info) Description 09/11/2021 Lab Requisition [facility] Pathology & Laboratory Medicine - [address] [address] Rosalba Archibald, RAILCAR SWITCHER [address] [address] Encounter for general adult medical examination without [...] Negative Negative 09/20/2021 15:45 EST [facility] Comment:No E6 or E7 mRNA is detected from HPV types 16,18,31,33,35,39,45,51,52,56,58,59,66, and 68 by tattoo identifier mediated amplification. Papanicolaou smear specimen (specimen) CERVIX UTERI STRUCTURE / Unknown 09/10/2021 9:15 EST 09/19/2021 14:21 EST Rosalba Archibald APRN MICROBIOLOGY - GE NERAL ORDERABLES [facility] [address] [place] [address] * PAP TEST (09/10/2021 9:15 EST) Specimens A. Cervix and/or Endocervix , ThinPrep Imaging System with Manual Evaluation 09/20/2021 15:45 EST [facility] Specimen Adequacy Satisfactory for Evaluation - transformation zone component present 09/20/2021 15:45 EST [facility] General Categorization Epithelial Cell Abnormality 09/20/2021 15:45 EST [facility] Descriptive Diagnosis Squamous Cell Abnormality - Atypical squamous cells, undetermined significance (ASC-US). 09/20/2021 15:45 EST [facility] Educational Comments [facility] recommends following ASCCP's 2012 Updated Consensus Guidelines for the Management of Abnormal Cervical Cancer Screening Tests and Cancer Precursors (JLGTD, 2013; 17(5):S1-S27). Consensus guidelines are available online at www.asccp.org. 09/20/2021 15:45 [facility] Attestation By the signature below, the attending physician certifies that they have personally conducted a gross and/or microscopic examination of the described specimens and rendered or confirmed the above diagnosis. 09/20/2021 15:45 [facility] at 1545 Clinical History See below 09/20/19 15:45 [facility] HPV The result for the Human Papillomavirus (HPV) Detection-High Risk Types is Negative. No E6 or E7 mRNA is detected from HPV types 16,18,31,33,35,3 9,45,51,52,56,58 ,59,66, and 68 by tattoo identifier mediated amplification.Te sting was performed on specimen [id number] and was resulted on 09/20/2021 1543 EST by CARMEN, LAB INSTRUMENT RESULTS IN 09/20/2021 15:45 [facility] Performing Lab [facility] 09/20/2021 15:45 [facility] Scanned Images 09/20/2021 15:45 [facility] Papanicolaou smear specimen (specimen) CERVIX UTERI STRUCTURE / Unknown 09/10/2021 9:15 EST 09/11/2021 9:41 EST Rosalba Archibald APRN PATHOLOGY ORDERAB LES [facility] [address] [place] [address] documented in this encounter Visit Diagnoses Diagnosis Encounter for general adult medical examination without abnormal findings Unspecified general medical examination Encounter for screening for malignant neoplasm of cervix Screening for malignant neoplasm of the cervix Encounter for gynecological examination (general) (routine) without abnormal findings documented in this encounter Care Teams Plumber Gasfitter Relationship Specialty Start Date End Date Pretty Avery MD [address] [place] [address] PCP - General 06/05/10 documented as of this encounter
--- OUTSIDE RECORDS SUMMARY | 2024-04-20 11:46 | XMS_ITS | Data Portability ---
Author Organization [place] - [facility] [place] [address] Assessment Encounter Date Assessment Date Assessment LastModified [...] in conjunction with MELECIO Reese student at [facility]. I interviewed, examined and I agree fully with the examination and management plans as outlined in note. khb The total time devoted to today's encounter, including both the ewim-vx-rkir time with the patient and/or family/caregiv er and prt-mnph-rd-fa ce time I personally spent is 45 [...] rapid strep group A, throat 2023 024 [facility], [address], [address], [place], [address], 01/15/2024 16:39:11 culture, throat 2023 024 JOSELUIS [facility] (Registration ), [address] [place] [address] , [place], [address], 01/16/2024 12:10:34 Referral physical therapist referral 2023 024 JOSELUIS Araujo PT, [address] , [place], [address], 01/25/2024 15:03:28 Procedures None recorded. Surgeries None recorded. Imaging None recorded. Medication Orders gabapenti n 300 mg capsule 2023 024 [email or web address] 1 [facility], [address] [place] [address], [id number], 01/15/2024 15:29:36 Artificia l Tears (carboxym ethylcell ulose) 1 % eye drops 2023 024 JOSELUIS [facility], [address] [place] [address], [id number], 04/04/2024 08:15:28 cetirizin e 0.24 % eye drops in a dropperet te 2023 024 [email or web address] [facility], [address] [place], [address], 04/04/2024 08:14:54 cyclobenz aprine 10 mg tablet 2023 024 JOSELUISROSA [facility], [address] [place] [address], [id number], 04/04/2024 08:15:08 rosuvasta tin 40 mg tablet 2023 024 JOSELUIS [facility], [address] [place] [address], [id number], 04/04/2024 08:50:04 Patient TargetsNo targets recorded. Patient Instructions Encounter Date Encounter Id Patient Instructions Last Modified By Organization Details Last Modified Time 10/17/2023 [id number] 1. I have sent 2 medications to [...] have follow-up either with primary care or [facility] eye care. Given that you are already established there it might be easiest and best to follow-up with them if not improved. Not available 10/17/2023 11:39:01 01/15/2024 [id number] 1. Rapid strep i s negative. Throat [...] therapist office for Kavon Araujo at the [facility] location. If they cannot get you in any want referral elsewhere please let us know when we call you on Thursday to go over throat culture. 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 fo r Herpes zoster Referring Physician: Family Gonzalo Rapp, Encounter Date: 09/19/2023 Pharmacist Intern Referral for Herpes zoster Referring Physician: Family Gonzalo Rapp, Encounter Date: 09/19/2023 Physical Therapist Referral for Muscle spasm of cervical muscle of neck Referring Physician: Family Gonzalo Rapp, Encounter Date: 01/15/2024 Results Created Date Observation Date Name Description Value Unit Range Abnormal Flag LastModifiedBy Organization Detail LastModifiedTime 09/08/2009/10/2023 THROA T AEROB IC CULTU RE throat aerobic culture Not Available [address] [place], [address] 09/10/2023 09:32:21 09/08/20 23 09/11/2023 THROA T AEROB IC CULTU RE throat aerobic culture Not Available [facility] (Registration ) [address] [place] [address] [place], [address], 09/11/2023 09:02:20 09/08/2009/08/2023 rapid strep group A, throa t Strep negati ve Not Available [address], [address], 09/08/2023 13:47:02 09/08/20 23 09/08/2023 influ randa virus A + B + SARS- CoV-2 (COVI D19) Ag panel , rapid IA, upper respi rator y speci men Influenza A negati ve Not Available [address], [place], [address], 09/08/2023 13:46:53 09/08/20 23 09/08/2023 influ randa virus A + B + SARS- CoV-2 (COVI D19) Ag panel , rapid IA, upper respi rator y speci men Influenza B negati ve Not Available [address], [place], [address], 09/08/2023 13:46:53 09/08/20 23 09/08/2023 influ randa virus A + B + SARS- CoV-2 (COVI D19) Ag panel , rapid IA, upper respi rator y speci men SARS-COV-2 negati ve Not Available [address], [place], [address], 09/08/2023 13:46:53 01/15/20 24 01/16/2024 THROA T AEROB IC CULTU RE throat aerobic culture Not Available [facility] (Registration ) [address] [place] [address] , [place], [address], 01/16/2024 11:50:36 01/15/20 24 01/17/2024 THROA T AEROB IC CULTU RE throat aerobic culture Not Available [facility] (Registration ) [address] [place] [address] [place], [address], 01/17/2024 07:27:17 01/15/20 24 01/15/2024 rapid strep group A, throa t Strep negati ve Not Available [address], [place], [address], 01/15/2024 15:19:00 08/31/20 23 08/31/2023 trans -thor acic echoc ardio gram (TTE) (PROC ) No observ ation record ed. [facility] Cardiology - Exercise Stress Test/Charan/Stre ss Echo Scheduling [address] [place], [address], 08/31/2023 11:13:18 09/04/20 23 08/28/2023 trans -thor acic echoc ardio gram (TTE) (PROC ) No observ ation record ed. Not Available 09/04/2023 11:09:14 09/20/1909/19/2023 ED visit note ED Visit Note CHRISTINA Holliday NAME: Aimee Dia UNIT #: [id number] ADMITT ING PROVID ER: Nathan Perez TREATMENT PLANT OPERATOR ACCOUN T #: [id number] PRIMAR Y CARE PROVID ER: AIMEE [...] intest inal: Denies odynop hagia Integu mentar y/[place] sts Skin/B reast: Report s as per HPI and Report s rash Allerg ic/Imm unolog ic Allerg ic/Imm unolog ic: Denies throat swelli ng PFSH All Active Proble ms (Revie thu @ 11:06 by Ofelia Perez, TREATMENT PLANT OPERATOR) Herpes zoster (Acute ) Abdomi nal bloati [...] (Revie thu @ 11:06 by Ofelia Perez, TREATMENT PLANT OPERATOR) Family histor y of colon cancer Histor y of placem ent of stent in LAD vogt ry artery 03/2014 [facility] No-chris w for appoin [facility] Hypert ension Abdomi nal pain Asthma , exerci se induce d Tick bite Hypoth yroidi sm Dyspha ronaldo Surgic al Histor y (Revie thu @ 11:06 by Ofelia Perez TREATMENT PLANT OPERATOR) H/O colono scopy (06/18) Dr Mauricio , normal , repeat in 10 years Histor y of esopha gogast roduod enosco py (EGD) (06/18) Dr Mauricio , normal , repeat PRN Histor y of C-sect ion Histor y of vogt ry artery stent placem ent Family Histor y (Revie thu @ 11:06 by Ofelia Perez TREATMENT PLANT OPERATOR) Father Gliobl astoma Hyperl ipidem ia Heart diseas e Patern al Grandm other Gliobl astoma Mother Hypert ension Heart diseas e Social Histor y (Revie thu @ 11:06 by Ofelia Perez TREATMENT PLANT OPERATOR) 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 Thank you. han [address], [place], [address] 09/21/2023 15:46:33 Result Notes None recorded. Problems Name Status Onset Date Resolution Date Notes Provider Name and Address Organization Details Recorded Time Hypothyroidis m Active 201205/08/2020 - Comments only - Rosalba Mckeon HARVEST WORKER - without medication. check next in January 02. Problem Code: E03.9; Problem Code Type: ICD-10; [address], [place], [address] , [facility] 4 14:32:58 Essential hypertension Active 201205/08/2020 - Comments only - Rosalba Mckeon HARVEST WORKER - no desires to take her medication on a daily basis. Encouraged daily use of medication and check her BP routinely. Check BMP January 02. Problem Code: I10; Problem Code Type: ICD-10; [address], [place], [address] , [facility] 4 14:32:58 Atheroscleros is of coronary artery without angina pectoris Active 201305/08/2020 - Comments only - Rosalba Mckeon HARVEST WORKER - No desires for statin. Encouraged daily use of her losartan. Continue ASA. encouraged to FU with cardiology. Problem Code: I25.10; Problem Code Type: ICD-10; [address], [place], [address] , [facility] 4 14:32:58 Hyperlipidemi a Active 201305/08/2020 - Comments only - Rosalba Mckeon HARVEST WORKER - no desires for statin. Problem Code: E78.5; Problem Code Type: ICD-10; [address], [place], [address] , [facility] 4 14:32:58 Acute non-ST segment elevation myocardial infarction Active 2013 Problem Code: I21.4; Problem Code Type: ICD-10; [address], [place], [address] , [facility] 4 14:32:58 Gastroesophag eal reflux disease without esophagitis Active 201505/08/2020 - Comments only - Rosalba Mckeon APRN - with duodenitis and dysphagia. Encouraged daily PPI, she is not interested. Continue with diet mgmt. Problem Code: K21.9; Problem Code Type: ICD-10; [address], [place], [address] , [facility] 4 14:32:58 Exercise induced bronchospasm Active 201505/08/2020 - Comments only - Rosalba Mckeon APRN - no complaints of. monitor for now. Problem Code: J45.990; Problem Code Type: ICD-10; [address], [facility] [address] , [facility] 4 14:32:58 Dysphagia Active 201509/05/2016 - Comments only - Isa White MD - Patient is having worsening dyspagia and I will refer her to GI for an EGD to make sure there is not significant pathology. 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 Check CBCD, iron stores, ferritin, TSH with R, tick and lyme panel. Problem Code: R53.83; Problem Code Type: ICD-10; [address], [facility] [address] , [facility] 4 14:32:58 Migraine with aura Active 2018 Problem Code: G43.109; Problem Code Type: ICD-10; [address], [facility] [address] , [facility] 4 14:32:58 Chronic sinusitis Completed 201808/26/2019 Problem Code: J32.9; Problem Code Type: ICD-10; Not Available [facility] 3 04:31:05 Eustachian tube disorder Completed 201809/14/2019 Problem Code: H69.90; Problem Code Type: ICD-10; Not Available [facility] 3 04:31:05 Screening for malignant neoplasm of breast Active 2019 Problem Code: Z12.39; Problem Code Type: ICD-10; [address], [facility] [address] , [facility]. 4 14:32:58 Angina pectoris Active 202006/14/2021 - [...] ICD-10; ROSALBA MCKEON APRN [address], [place], [address] , [facility]. 4 14:32:58 Carotid artery stenosis Active 202007/26/2021 [...] upset. ROSALBA MCKEON APRN [address], [place], [address] , [facility], [facility]. 4 14:32:58 Seasonal allergic rhinitis Active 11/12/ 2021 Problem Code: J30.2; Problem Code Type: ICD-10; [address], [address] 4 14:32:58 Gestational diabetes mellitus Active 2020 Problem Code: O24.419; Problem Code Type: ICD-10; [address], [address] 4 14:32:58 Family history of breast cancer Active 2020 Problem Code: Z80.3; Problem Code Type: ICD-10; [address], [address] 4 14:32:58 Nicotine dependence Active 2020 Problem Code: Z87.891; Problem Code Type: ICD-10; [address], [address] 4 14:32:58 Genuine stress incontinence Active 2020 Problem Code: N39.3; Problem Code Type: ICD-10; [address], [address] 4 14:32:58 Cramp in lower limb associated with sleep Active 2020 Problem Code: G47.62; Problem Code Type: ICD-10; [address], [address] 4 14:32:58 Raynaud's disease Active 2020 Problem Code: I73.00; Problem Code Type: ICD-10; [address], [address] 4 14:32:58 Aphasia Active 2020 Problem Code: R47.01; Problem Code Type: ICD-10; [address], [facility] [address] [address] 4 14:32:58 Atypical squamous cells of undetermined significance on cervical Papanicolaou smear Active 2021 Problem Code: R87.610; Problem Code Type: ICD-10; [address], [facility] [address] [place] [address] 4 14:32:58 Cough Active 2021 Problem Code: R05.8; Problem Code Type: ICD-10; [address], [facility] [address] [place] [address] 4 14:32:58 Family history of malignant neoplasm of digestive organ Active 2022 Problem Code: Z80.0; Problem Code Type: ICD-10; [address], [facility] [address] , [facility] 4 14:32:58 Screening for malignant neoplasm of colon Active 2022 Problem Code: Z12.11; Problem Code Type: ICD-10; [address], [facility] [address] , [facility] 4 14:32:58 Abdominal pain Active 2022 Problem Code: R10.9; Problem Code Type: ICD-10; [address], [facility] [address] [address] 4 14:32:58 Altered bowel function Active 2022 Problem Code: R19.4; Problem Code Type: ICD-10; [address], [facility] [address] , [facility]. 4 14:32:59 Acute subendocardia l infarction Completed 201306/10/2023 Problem Code: 410.72; Problem Code Type: ICD-9; Not Available [facility] 3 04:31:08 Posttraumatic headache Completed 201809/10/2021 Problem Code: G44.309; Problem Code Type: ICD-10; Not Available [facility] 3 04:31:08 Disorder of eye region Completed 201905/08/2020 Problem Code: H57.89; Problem Code Type: ICD-10; Not Available [facility] 3 04:31:08 Disorder of skin and/or subcutaneous tissue Completed 201502/19/2016 Problem Code: L98.9; Problem Code Type: ICD-10; Not Available [facility] 3 04:31:08 Dyspnea Completed 201502/19/2016 Problem Code: R06.09; Problem Code Type: ICD-10; Not Available [facility] 3 04:31:09 Neck pain Completed 201409/10/2021 Problem Code: M54.2; Problem Code Type: ICD-10; Not Available [facility] 3 04:31:09 Hypertensive disorder Completed 201206/10/2023 Not Available [facility] 3 04:31:09 Visual disturbance Completed 201709/12/2019 Problem Code: H53.9; Problem Code Type: ICD-10; Not Available [facility] 3 04:31:09 Headache Completed 201709/12/2019 Problem Code: R51; Problem Code Type: ICD-10; Not Available [facility] 3 04:31:09 Exposure to communicable disease Completed 201905/08/2020 Problem Code: Z20.828; Problem Code Type: ICD-10; Not Available [facility] 3 04:31:10 Constipation Completed 201705/08/2020 Problem Code: K59.00; Problem Code Type: ICD-10; Not Available [facility] 3 04:31:10 Exposure to sting or bite by insect Completed 202112/08/2022 Not Available [facility] 3 04:31:10 Traumatic or non-traumatic injury Completed 201605/08/2020 Problem Code: T14.8; Problem Code Type: ICD-10; Not Available [facility] 3 04:31:10 Sciatica Completed 201809/10/2021 Problem Code: M54.30; Problem Code Type: ICD-10; Not Available [facility] 3 04:31:10 Bleeding from nose Completed 202203/30/2023 Problem Code: R04.0; Problem Code Type: ICD-10; Not Available [facility] 3 04:31:11 Low back pain Completed 202009/10/2021 Problem Code: M54.5; Problem Code Type: ICD-10; Not Available [facility] 3 04:31:11 Pain in left foot Completed 202203/30/2023 Problem Code: M79.672; Problem Code Type: ICD-10; Not Available [facility] 3 04:31:11 Dizziness and giddiness Completed 202203/30/2023 Problem Code: R42; Problem Code Type: ICD-10; Not Available [facility] 3 04:31:11 Pain of right shoulder joint Completed 201909/10/2021 Problem Code: M25.511; Problem Code Type: ICD-10; Not Available [facility] 3 04:31:11 Chest pain Completed 201412/08/2022 Problem Code: R07.89; Problem Code Type: ICD-10; Not Available [facility] 3 04:31:12 Fever Completed 202112/08/2022 Problem Code: R50.9; Problem Code Type: ICD-10; Not Available [facility] 3 04:31:12 Exposure to communicable disease Completed 201909/10/2021 Problem Code: Z20.9; Problem Code Type: ICD-10; Not Available [facility] 3 04:31:12 Coronary arteriosclero sis Completed 201306/10/2023 Not Available [facility] 3 04:31:13 Abnormal weight gain Completed 202203/30/2023 Problem Code: R63.5; Problem Code Type: ICD-10; Not Available [facility] 3 04:31:13 Streptococcal sore throat Active 2022 ROSALBA MCKEON APRN [address], [place], [address] , [facility] 4 14:32:58 Infection of tooth Active 2023 ROSALBA MCKEON APRN [address], [facility] [address] , [facility] 4 14:32:58 Oral infection Active 2023 ROSALBA MCKEON APRN [address], [facility] [address] , [facility] 4 14:32:58 Herpes zoster Active 2023 ROSALBA MCKEON APRN [address], [place], [address] , [facility] 4 14:32:58 Post-herpetic polyneuropath y Active 2023 ROSALBA MCKEON APRN [address], [place], [address] , [facility] 4 15:37:27 Itching of eye Active [address], [place], [address] , [facility] 4 11:33:48 Muscle spasm of cervical muscle of neck Active [address], [place], [address] , [facility] 4 16:37:40 Increased liver function Active 2023 ROSALBA MCKEON APRN [address], [facility] [place], [address] , [facility] 4 04:54:49 Nonulcer dyspepsia Active 2023 ROSALBA MCKEON APRN [address], [place], [address] , [facility] 4 08:26:01 Problem Notes None recorded. Procedures Surgical History None recorded. Imaging Results Imaging Date Name Status LastModified by Organization Details LastModified Time 08/31/2023 trans-thoracic echocardiogram (TTE) (PROC) completed [facility] Cardiology - Exercise Stress Test/Charan/Stress Echo Scheduling [address] , [place], [address], 08/31/2023 11:13:18 08/28/2023 trans-thoracic echocardiogram (TTE) (PROC) completed [email or web address] Information not available 09/04/2023 11:09:14 09/19/2023 ED visit note completed han [facility] [address] , [place], [address] 09/21/2023 15:46:33 Procedure Notes None recorded. Medical Equipment None Reported. Allergies Allergen ID Allergen Name Allergen Category Reaction Reaction Severity Criticality Documentation Date Start Date Code Code System Note Provider Name and Address Organization Details Recorded Time 57909 lisinopri l medicatio n cough mild Not available 07/24/20232013 72943 RxNorm cough Aller gyCod e: '3140 76'; [...] RINSE OFF. ALTERNAT E WITH HOME OTC ANTI-AKVON DRUFF SHAMPOO EVERY FEW WASHES active Not [...] Not Available rosuvastat in 40 mg tablet TAKE ONE TABLET BY MOUTH EVERY DAY active Not [...] % 98 % 74 /min 23.2 kg/m2 28920.2 9 g 138 mm[Hg] 70 mm[Hg] Nancy Serra RN [facility] 4 11:22:16 Date Recorded Body height Body mass index (BMI) Body weight Respiratory rate Oxygen saturation Oxygen saturation in Arterial blood by Pulse oximetry Heart rate Body temperature Systolic blood pressure Diastolic blood pressure Systolic blood pressure Diastolic blood pressure Provider Name and Address Organization Details Last Updated DateTime 4 159.26 cm 23.1 kg/m2 75775.4 2 g 19 /min 99 % 99 % 65 /min 97.2 [degF] 193 mm[Hg] 100 mm[Hg] 188 mm[Hg] 96 mm[Hg] Alejandra Mcbride MA [facility] 4 10:52:46 Date Recorded Body height Body temperature Oxygen saturation Oxygen saturation in Arterial blood by Pulse oximetry Heart rate Respiratory rate Body mass index (BMI) Body weight Systolic blood pressure Diastolic blood pressure Provider Name and Address Organization Details Last Updated DateTime 4 159.26 cm 98.1 [degF] 98 % 98 % 77 /min 18 /min 22.4 kg/m2 10956.0 5 g 155 mm[Hg] 72 mm[Hg] Diane Bartholomew [facility], [facility] 4 15:24:22 Date Recorded Body height Body mass index (BMI) Body weight Heart rate Systolic blood pressure Diastolic blood pressure Provider Name and Address Organization Details Last Updated DateTime 4 159.26 cm 22.3 kg/m2 79503.6 1 g 64 /min 128 mm[Hg] 82 mm[Hg] Sujatha Massey RN [facility] 4 08:18:55 Social History Question Answer Notes LastModified by Organizat ion Details LastModified Time Tobacco Smoking Status Former Smoker JAMAR MEJIA RN [facility], [facility] 08/21/2023 11:02:00 When Did You Quit Smoking? 16+yearssinc elastcigaret te [email or web address] Information not available 08/21/2023 What Was The Date Of Your Most Recent Tobacco Screening? 01/15/2024 [email or web address] Information not available 01/15/2024 Has Tobacco Cessation Counseling Been Provided? No [email or web address] Information not available 08/21/2023 Do You Or Have You Ever Used Any Other Forms Of Tobacco Or Nicotine? No Information not available 08/21/2023 Sex: Female Functional [...] Recorded Time Tdap 07/21/2019 completed Not Available [facility] 06:27:29 Td(adult) unspecified formulation 01/13/2005 completed Not Available [facility] 07/24/2023 06:27:29 COVID-19, mRNA, LNP-S, PF, 100 mcg/0.5mL dose or 50 mcg/0.25mL dose 07/13/2021 completed Not Available [facility] 07/24/20 06:27:29 COVID-19 vaccine, vector-nr, rS-Ad26, PF, 0.5 mL 11/30/2020 completed Not Available [facility] 07/24/2023 06:27:30 Past Encounters Encounter ID Performer Location Encounter Start Date Encounter Closed Date Diagnosis/Indication Diagnosis SNOMED-CT Code [id number] DRAKE KHANNA MD [address] [address] 08/21/2023 10:50:46 08/21/2023 11:29:57 Sore throat 578025730 Streptococ lewis sore throat 12555683 [id number] DIANE CERVANTES PA-C [address] [address] 09/08/2023 13:05:14 09/08/2023 13:58:09 Sore throat 997973480 [id number] CHLOÉ ERNST [address] [address] 09/17/2023 09:23:33 09/17/2023 10:07:58 Sore throat 144094762 Infection of tooth 50766 9090 [id number] MICKY MCCAIN PA-C [address] [address] 09/19/2023 11:11:28 09/19/2023 14:10:32 Herpes zoster 0565938 Essential hypertension 29782116 [id number] CHLOÉ ERNST [address] [address] 09/30/2023 11:15:19 09/30/2023 12:01:24 Herpes zoster 9506079 [id number] ROSALBA MCKEON APRN [address] [address] 10/02/2023 15:14:28 10/02/2023 16:03:59 Post-herpetic polyneuropathy 19908571 [id number] MICKY MCCAIN PA-C [address] [address] 10/17/2023 10:02:11 10/17/2023 11:45:47 Itching of eye 26460352 Essential hypertension 99105535 [id number] [address] [place] [address] 01/15/2024 15:02:51 01/15/2024 16:57:40 Sore throat 607067852 Muscle spa sm of cervical muscle of neck 803984223577 [id number] ROSALBA MCKEON APRN [facility] [address] [place] [address] 04/04/2024 08:05:40 04/04/2024 08:58:24 Atherosclerosis of coronary artery without angina pectoris 515388109382854 Nicotine dependence 5629 4008 Increased liver function 20560270 Nonulcer dyspepsia 95714 07 Health Concerns Section Related Observation LastModified by Organization Detai ls LastModified Time None Recorded Concern Status LastModified by Organization Details LastModified Time None Recorded Advance Directives Directive None Recorded Payers Encounter Date Sequence Insurance Name Policy Number Policy Horan Covered Member ID Horan Member ID Guarantor Name 09/30/2023 1 [employer] ([employer]ICA[employer]) Isa Ro [id number] Isa Ro 10/02/2023 1 [employer] [facility] (MEDICAID) Isajoseph Leungar [id number] Isa Joseph Ro 10/17/2023 1 [facility]EN [facility] (MEDICAID) Isa Leungar [id number] Isa Ro 01/15/2024 1 [facility] (MEDICAID) Isa Leungar [id number] Isa Joseph Ro 04/04/2024 1 [facility] (MEDICAID) Isa Joseph Warnaar [id number] Isa Ro Notes Date Note Type Note [...] regularly taking advil and acetaminophen. CHLOÉ ERNST, W[employer] INSTALLER [address], [place], [address], [place] [facility]. 10/01/2023 11:07:31 10/02/2023 text/html HPI Notes: Is he re for complaints of shingles concern. -Had sore throat 08/21/23, treated with amoxicillin. -She called on 09/02 wondering about a toxic smell, having respiratory issues. Was recommended to call [facility] to discuss testing. 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 Shingles [...] for both. This was on 09/19/23 at [facility]. + ear pain, left ear. No drainage or discharge from ear. States does not have any sores in her ear. Denies blurred vision, double vision. had 1 sore near the bottom of the left eye, went to the eye doctor, was told not in the pupil; [facility], 09/21/23. Was not provided any medications. [...] it is hard to tell. ROSALBA MCKEON, HARVEST WORKER [address], [place], [address], [facility]. 10/02/2023 15:54:43 10/17/2023 text/html HPI Notes: Isa [...] home. Cannot endorse any other environmental exposures. MICKY MCCAIN PA-C [address], [place], [address], [facility]. 10/17/2023 12:14:34 01/15/2024 text/html HPI Notes: Isa [...] movement. MICKY MCCAIN PA-C [address], [place], [address], [facility]. 01/15/2024 19:07:29 04/04/2024 text/html HPI Notes: Is he re for follow-up hospital stay. Was admitted to [facility] on 03/19/22.4 Discharged on 03/22/24 Discharge dx was acute ST elevation DC due to occlusion of left anterior descending [...] 80mg daily CoQ10 supplementation Was referred to [facility] cardiology. has [facility] cardiology appt scheduled. She was having symptoms with coreg, this was stopped by oncall provider and switched back to metoprolol succ. BP had been 100/55 with coreg. She does admit that previously using metoprolol and her HR never raised up with activity and caused fatigue and had stopped. ROSALBA MCKEON, HARVEST WORKER [address], [place], [address], [facility]. 04/04/2024 09:58:16 OBGyn Episode No OBEpisode recorded.
--- OUTSIDE RECORDS SUMMARY | 2024-04-20 11:46 | XMS_ITS | Encounter Summary ---
Author Organization [facility] Address [address] [place] [address] Care Team Providers Care Supervisor [employer]cycle [employer] Name Role Phone Pretty Avery MD Primary Care Provider [phone] Encounter Details Date Type Department Care Team (Late st Contact Info) Description 04/09/2018 Historical Results Only [facility] - Main [address] [address] Ganesh Philip MD [address] [place] [phone] Social History Tobacco Use Types Packs/Day [...] 0.000 - 0.034 ng/mL 04/09/2018 7:39 EDT [facility] Comment: Interpretation comments: ??Cutoff for [...] & BLOOD GAS ORDERABLES Performing Organization Address City/[facility]/ZIP Co de Phone Number [facility] * LIPASE (04/09/2018 6:35 EDT) Lipase 84 <251 U/L 04/09/2018 9:4 8 EDT [facility] 04/09/2018 6:35 EDT 04/09/2018 9:38 EDT Narrative [facility] - 04/09/2018 9:48 EDT AOT: 04/09/18 0938: LIP Ganesh Philip MD CHEMISTRY & BLOOD GAS ORDERABLES [facility] documented in this encounter Visit Diagnoses Not on filedocumented in this encounter Care Teams Supervisor [employer]cycle [employer] Relationship Specialty Start Date End Date Pretty Avery MD [address] [place] [address] PCP - General 06/05/10 documented as of this encounter
--- OUTSIDE RECORDS SUMMARY | 2024-04-20 11:46 | XMS_ITS | Encounter Summary ---
Author Organization [facility] Address [address] [place] [address] Care Team Providers Care Hostess Cashier Name Role Phone Pretty Avery MD Primary Care Provider [phone] Encounter Details Date Type Department Care Team (Late st Contact Info) Description 06/24/2023 Lab Requisition [facility] Pathology & [place] [address] Outr Resulting Lab, Provider Social History Tobacco [...] Lyme Ab Negative Negative 06/25/2023 11:00 EDT [facility] Blood VENOUS BLOOD / Unknown 06/24/2023 9:02 EDT 06/24/2023 17:06 EDT Provider Outr Resulting Lab IMMUNOLOGY A ND SEROLOGY ORDERABLES [facility] [address] [place] [address] documented in this encounter Visit Diagnoses Not on filedocumented in this encounter Care Teams Hostess Cashier Relationship Specialty Start Date End Date Pretty Avery MD [address] [place] [address] PCP - General 06/05/10 documented as of this encounter
--- OUTSIDE RECORDS SUMMARY | 2024-04-20 11:46 | XMS_ITS | Encounter Summary ---
Author Organization [facility] Address [address] [place] [address] Care Team Providers Care Sql Server Dba Name Role Phone Pretty Avery MD Primary Care Provider [phone] Encounter Details Date Type Department Care Team (Late st Contact Info) Description 03/07/2022 Lab Requisition [facility] Pathology & Laboratory Medicine - [address] [address] Outr Resulting Lab, Provider Social History Tobacco [...] Priority Date/Time Associated Diagnosis Comments ZZCOVID-19 TEST [facility] PCR Today 03/06/2022 16:00 EDT COVID-19 TESTING Routine 03/06/2022 16:0 0 EDT documented in this encounter Results * COVID-19 TEST [facility] PCR (03/06/2022 16:00 EDT) Swab 03/06/2022 16:0 0 EDT 03/07/2022 22:03 EDT Provider Outr Resulting Lab MICROBIOLOGY - GENERAL ORDERABLES Performing Organization Address City/[facility]/ZIP Co de Phone Number [facility] [address] [place] [address] * COVID-19 TESTING (03/06/2022 16:00 EDT) COVID-19 rt-PCR Result Negative Negative 03/08/2022 12:05 EDT [facility] Comment: This test has [...] performed using the camille SARS-CoV-2 assay ([employer] on the Camille 6800 System Performing Lab [address] [facility] 03/08/2022 12:05 EDT [facility] Swab 03/06/2022 16:0 0 EDT 03/07/2022 22:03 EDT Provider Outr Resulting Lab MICROBIOLOGY - GENERAL ORDERABLES Performing Organization Address City/[facility]/ZIP Co de Phone Number [facility] [address] [place] [address] documented in this encounter Visit Diagnoses Not on filedocumented in this encounter Care Teams Sql Server Dba Relationship Specialty Start Date End Date Pretty Avery MD [address] [place] [id number] PCP - General 06/05/10 documented as of this encounter
--- OUTSIDE RECORDS SUMMARY | 2024-04-20 11:46 | XMS_ITS | Encounter Summary ---
Author Organization [facility] Address [address] [place] [address] Care Team Providers Care Paint Roller Winder Name Role Phone Pretty Avery MD Primary Care Provider [phone] Encounter Details Date Type Department Care Team (Late st Contact Info) Description 04/08/2018 Historical Results Only [facility] Radiology Results [address] [place] [address] Wesley Trinh MD [address] [place] [address] Social History Tobacco Use Types [...] * TROPONIN I (04/08/2018 20:12 EDT) Pathologist [facility] Troponin I (ng/mL) <0.012 0.000 - 0.034 ng/mL 04/08/2018 20:47 EDT [facility] Comment: Interpretation comments: ??Cutoff [...] Philip MD CHEMISTRY & BLOOD GAS ORDERABLES [facility] * XR CHEST 2 [...] MD ? Transcribed Date/Time: 04/08/2018 (1402) ? Sewer Builder: ? Printed Date/Time: 03/04/2019 (2626) ? PAGE 1 ? Signed Report ? [...] Wesley Trinh MD Transcribed Date/Time: 04/08/2018 (1402) Sewer Builder: Printed Date/Time: 03/04/2019 (0163) PAGE 1 Signed Report Wesley Trinh MD IMG DIAGNOSTIC I MAGING ORDERABLES * MAGNESIUM (04/08/2018 12:24 EDT) Magnesium 1.70 1.7 - 2.8 mg/dL 04/08/2018 12:48 EDT [facility] 04/08/2018 12:2 4 EDT 04/08/2018 12:30 EDT Wesley Trinh MD CHEMISTRY & BLOO D GAS ORDERABLES [facility] * (ABNORMAL) COMPREHENSIVE METABOLIC PANEL (CMP) (04/08/2018 12:24 EDT) Pathologist [facility] Albumin % 4.4 3.4 - 4.9 g/dL 04/08/2018 12:48 [facility] ALKALINE PHOSPHATASE - [facility] 75 38 - 126 U/L 04/08/2018 12:48 [facility] BILIRUBIN TOTAL 0.4 0.2 - 1.3 mg/dL 04/08/2018 12:48 [facility] BUN - [facility] 21 10 - 26 mg/dL 04/08/2018 12:48 [facility] CALCIUM - [facility] 9.3 8.5 - 10.5 mg/dL 04/08/2018 12:48 [facility] Chloride 104 96 - 110 mmol/L 04/08/2018 12:48 [facility] CO2 Total 23 22 - 32 mEq/L 04/08/2018 12:48 [facility] CREATININE 0.85 0.52 - 1.04 mg/dL 04/08/2018 12:48 [facility] eGFR >60 04/08/2018 12:48 [facility] Comment: Chronic renal impairment is defined as GFR <60 Multiply result by 1.210 for patients. eGFR calculated using the IDMS-traceable MDRD Study Equation. ??(effective 07/17/2014) Anion Gap 11 0 - 18 04/08/2018 12:48 EDT [facility] GLUCOSE - [facility] 103(H) 70 - 100 mg/dL 04/08/2018 12:48 EDT [facility] Potassium 3.8 3.5 - 5.0 mEq/L 04/08/2018 12:48 EDT [facility] Sodium 138 136 - 145 mEq/L 04/08/2018 12:48 EDT [facility] TOTAL PROTEIN - [facility] 7.1 6.2 - 8.2 gm/dL 04/08/2018 12:48 EDT [facility] SGOT/AST - [facility] 20 14 - 36 U/L 04/08/2018 12:48 T [facility] SGPT/ALT - [facility] 36 9 - 52 U/L 8 12:48 EDT [facility] 04/08/2018 12:2 4 EDT 04/08/2018 12:30 EDT Wesley Trinh MD CHEMISTRY & BLOO D GAS ORDERABLES Performing Organization Address [facility]/ZIP Co de Phone Number [facility] * TROPONIN I (04/08/2018 12:24 EDT) Troponin I (ng/mL) <0.012 0.000 - 0.034 ng/mL 04/08/2018 13:00 EDT [facility] Comment: Interpretation comments: ??Cutoff [...] MD CHEMISTRY & BLOO D GAS ORDERABLES [facility] * COMPLETE BLOOD COUNT WITH DIFFERENTIAL (AUTO) (04/08/2018 12:24 EDT) ABSOLUTE NEUTROPHIL COUN - [facility] 5.55 1.7 - 7.0 10e3/ul 04/08/2018 12:36 [facility] BASO # - [facility] 0.02 0.0 - 0.3 10e3/uL 04/08/2018 12:36 [facility] BASO % - [facility] 0 0 - 2 % 04/08/2018 12:36 [facility] EOS # - [facility] 0.18 0.05 - 0.5 10e3/uL 04/08/2018 12:36 [facility] EOS % - [facility] 2 0 - 5 % 04/08/2018 12:36 [facility] GRAN % - [facility] 65 40 - 80 % 04/08/2018 12:36 [facility] HEMATOCRIT - [facility] 39.7 34.0 - 47.0 % 04/08/2018 12:36 [facility] HEMOGLOBIN - [facility] 13.5 11.2 - 15.7 g/dl 04/08/2018 12:36 [facility] IG# - [facility] 0.02 0 - 0.07 10e3/uL 04/08/2018 12:36 [facility] IG% - [facility] 0.2 0 - 0.9 % 04/08/2018 12:36 [facility] LYMPH # - [facility] 2.22 0.9 - 2.9 10e3/uL 04/08/2018 12:36 [facility] LYMPH% - [facility] 26 20 - 40 % 04/08/2018 12:36 [facility] MEAN CORPUSCULAR HGB - [facility] 28.2 26 - 34 pg 04/08/2018 12:36 [facility] MEAN CORPUSCULAR HGB CONC - [facility] 34.0 31 - 36 g/dL 04/08/2018 12:36 [facility] MEAN CELL VOLUME - [facility] 82.9 77 - 100 fl 04/08/2018 12:36 [facility] MONO # - [facility] 0.60 0.3 - 0.9 10e3/uL 04/08/2018 12:36 EDT [facility] MONO% - [facility] 7 0 - 12 % 04/08/2018 12:36 EDT [facility] PLATELET COUNT 252 150 - 400 10e3/ul 04/08/2018 12:36 EDT [facility] RED BLOOD COUNT - [facility] 4.79 3.8 - 5.2 10e6/ul 04/08/2018 12:36 EDT [facility] RED CELL DISTRI WIDTH - [facility] 14.1 11.8 - 15.6 % 04/08/2018 12:36 EDT [facility] WHITE BLOOD COUNT - [facility] 8.6 3.5 - 10.5 10e3/ul 04/08/2018 12:36 EDT [facility] 04/08/2018 12:2 4 EDT 04/08/2018 12:30 EDT Wesley Trinh MD HEMATOLOGY & PF4 ORDERABLES [facility] documented in this encounter Visit Diagnoses Not on filedocumented in this encounter Care Teams Paint Roller Winder Relationship Specialty Start Date End Date Pretty Avery MD [address] [place] [address] PCP - General 06/05/10 documented as of this encounter
--- OUTSIDE RECORDS SUMMARY | 2024-04-20 11:46 | XMS_ITS | Encounter Summary ---
Author Organization [facility] Address [address] [place] [address] Care Team Providers Care Field Interviewer Name Role Phone Pretty Avery MD Primary Care Provider [phone] Encounter Details Date Type Department Care Team (Late st Contact Info) Description 02/15/2020 Lab Requisition [facility] Pathology & Laboratory Medicine - [address] [address] Outr Resulting Lab, Provider Social History Tobacco [...] - BROAD COVID TEST (02/15/2020 13:38 EDT) [facility] COVID-19 rt-PCR Result NEGATIVE Negative 02/17/2020 10:45 EDT [facility] Comment: 2019-novel Coronavirus (2019-nCoV) not [...] in accordance with CLIA regulations, [employer] [place] (CAP) guidelines (Dec 01, 2019), and FDA guidance (Nov 12, 2019). This test is only for use under the Food and Drug Administration's Emergency Use Authorization. Swab ENTIRE NASOPHARYNX / Unknown 02/15/2020 13:38 EDT 02/15/2020 21:00 EDT Provider Outr Resulting Lab MICROBIOLOGY - GENERAL ORDERABLES [facility] [place] * COVID-19 TESTING (02/15/2020 13:38 EDT) COVID-19 rt-PCR Result NEGATIVE Negative 02/17/2020 12:54 EDT [facility] Comment: 2019-novel Coronavirus (2019-nCoV) not [...] in accordance with CLIA regulations, [employer] [place] (CAP) guidelines (Dec 01, 2019), and FDA guidance (Nov 12, 2019). This test is only for use under the Food and Drug Administration's Emergency Use Authorization. Performing Lab [email or web address] 02/17/2020 12:54 EDT [facility] Swab ENTIRE NASOPHARYNX / Unknown 02/15/2020 13:38 EDT 02/15/2020 21:00 EDT Provider Outr Resulting Lab MICROBIOLOGY - GENERAL ORDERABLES [facility] [address] [place] [address] [facility] [place] documented in this encounter Visit Diagnoses Not on filedocumented in this encounter Care Teams Field Interviewer Relationship Specialty Start Date End Date Pretty Avery MD [address] [place] [address] PCP - General 06/05/10 documented as of this encounter
--- OUTSIDE RECORDS SUMMARY | 2024-04-20 11:46 | XMS_ITS | Continuity of Care Document ---
Author Organization [place] - [facility], [facility] Address [address] [place] [address] Assessment Encounter Date Assessment Date Assessment LastModified by Organization Details LastModified Time 04/04/2024 04/04/2024 The patient was seen and examined by myself in conjunction with Marisela Acuna, MELECIO student at [facility]. I interviewed, examined and I agree fully with the examination and management plans as outlined in note. khb The total time devoted to today's encounter, including both the igdh-sb-[id number] time with the patient and/or family/caregiv er and evi-qnzm-[id number] ce time I personally spent is 45 [...] Details Appointments Nurse Visit 2023 08:00A M [place] Nursing Staff Not available Not available Not available Follow Up 2023 09:30A M ROSALBA MCKEON Not available Not available Not available Lab None recorded. Referral None recorded. Procedures None recorded. Surgeries None recorded. Imaging None recorded. Medication Orders rosuvasta tin 40 mg tablet 2023 024 JOSELUIS [id number], [address] [place], [address], 04/04/2024 08:50:04 Patient TargetsNo targets recorded. Patient InstructionsNo instructions recorded. Reason for Referral Solar Project Coordination Specialist Referral fo r Herpes zoster Referring Physician: Altagracia Delcid [facility], Encounter Date: 09/19/2023 Lump Maker Referral for Herpes zoster Referring Physician: Altagracia Delcid [facility], Encounter Date: 09/19/2023 Physical Therapist Referral for Muscle spasm of cervical muscle of neck Referring Physician: Altagracia Delcid [facility], Encounter Date: 01/15/2024 Problems Name Status Onset Date Resolution Date Notes Provider Name and Address Organization Details Recorded Time Hypothyroidis m Active 201205/08/2020 - Comments only - Rosalba Mckeon CROP QUANTITATIVE GENETICIST - without medication. check next in January 02. Problem Code: E03.9; Problem Code Type: ICD-10; [address], [place], [address] , [facility] 4 14:32:58 Essential hypertension Active 201205/08/2020 - Comments only - Rosalba Mckeon CROP QUANTITATIVE GENETICIST - no desires to take her medication on a daily basis. Encouraged daily use of medication and check her BP routinely. Check BMP January 02. Problem Code: I10; Problem Code Type: ICD-10; [address], [place], [address] , [facility] 4 14:32:58 Atheroscleros is of coronary artery without angina pectoris Active 201305/08/2020 - Comments only - Rosalba Mckeon CROP QUANTITATIVE GENETICIST - No desires for statin. Encouraged daily use of her losartan. Continue ASA. encouraged to FU with cardiology. Problem Code: I25.10; Problem Code Type: ICD-Katya; [address], [place], [address] , [facility] 4 14:32:58 Hyperlipidemi a Active 201305/08/2020 - Comments only - Rosalba Mckeon CROP QUANTITATIVE GENETICIST - no desires for statin. Problem Code: E78.5; Problem Code Type: ICD-10; [address], [place], [address] , [facility] 4 14:32:58 Acute non-ST segment elevation myocardial infarction Active 2013 Problem Code: I21.4; Problem Code Type: ICD-10; [address], [facility] [id number] [place] [address] 4 14:32:58 Gastroesophag eal reflux disease without esophagitis Active 201505/08/2020 - Comments only - Rosalba Mckeon CROP QUANTITATIVE GENETICIST - with duodenitis and dysphagia. Encouraged daily PPI, she is not interested. Continue with diet mgmt. Problem Code: K21.9; Problem Code Type: ICD-10; [address], [place], [address] , [facility] 4 14:32:58 Exercise induced bronchospasm Active 201505/08/2020 - Comments only - Rosalba Mckeon CROP QUANTITATIVE GENETICIST - no complaints of. monitor for now. Problem Code: J45.990; Problem Code Type: ICD-10; [address], [place], [address] , [facility] 4 14:32:58 Dysphagia Active 201509/05/2016 - Comments only - Isa Estrada MD - Patient is having worsening dyspagia and I will refer her to GI for an EGD to make sure there is not significant pathology. Problem Code: R13.10; Problem Code Type: ICD-10; [address], [place], [address] , [facility] 4 14:32:58 Adult health examination Active 2015 Problem Code: Z00.00; Problem Code Type: ICD-10; ROSALBA MCKEON APRN [address], [facility] [address] , [facility] 4 14:32:58 Pain of right knee joint Completed 201602/16/2017 01/16/2017 - Comments only - Bell Chaviraenger MANAGER HAIR - - I do not think it [...] M25.561; Problem Code Type: ICD-10; Not Available [facility] 3 04:31:04 Duodenitis Active 2017 Problem Code: K29.80; Problem Code Type: ICD-10; ROSALBA MCKEON APRN [address], [place], [address] , [facility] 4 14:32:58 Fatigue Active 201707/26/2021 - Comments only - Rosalba Mckeon APRN - differentials include lyme disease, thyroid in origin, anemia. Check CBCD, iron stores, ferritin, TSH with R, tick and lyme panel. Problem Code: R53.83; Problem Code Type: ICD-10; [address], [place], [address] , [facility] 4 14:32:58 Migraine with aura Active 2018 Problem Code: G43.109; Problem Code Type: ICD-10; [address], [place], [address] , [facility] 4 14:32:58 Chronic sinusitis Completed 201808/26/2019 Problem Code: J32.9; Problem Code Type: ICD-10; Not Available [facility] 3 04:31:05 Eustachian tube disorder Completed 201809/14/2019 Problem Code: H69.90; Problem Code Type: ICD-10; Not Available [facility] 3 04:31:05 Screening for malignant neoplasm of breast Active 2019 Problem Code: Z12.39; Problem Code Type: ICD-10; ROSALBA MCKEON APRN [address], [place], [address] , [facility] 4 14:32:58 Angina pectoris Active 202006/14/2021 - [...] ICD-10; ROSALBA MCKEON APRN [address], [place], [address] , [facility] 4 14:32:58 Carotid artery stenosis Active 202007/26/2021 [...] causes GI upset. [address], [facility] [address] , [facility] 4 14:32:58 Seasonal allergic rhinitis Active 2020 Problem Code: J30.2; Problem Code Type: ICD-10; [address], [facility] [address] , [facility] 4 14:32:58 Gestational diabetes mellitus Active 2020 Problem Code: O24.419; Problem Code Type: ICD-10; [address], [facility] [address] , [facility] 4 14:32:58 Family history of breast cancer Active 2020 Problem Code: Z80.3; Problem Code Type: ICD-10; [address], [facility] [address] , [facility] 4 14:32:58 Nicotine dependence Active 2020 Problem Code: Z87.891; Problem Code Type: ICD-Katya; [address], [facility] [address] , [facility] 4 14:32:58 Genuine stress incontinence Active 2020 Problem Code: N39.3; Problem Code Type: ICD-10; [address], [place] [address] , [facility] 4 14:32:58 Cramp in lower limb associated with sleep Active 2020 Problem Code: G47.62; Problem Code Type: ICD-10; [address], [place] [address] , [facility] 4 14:32:58 Raynaud's disease Active 2020 Problem Code: I73.00; Problem Code Type: ICD-10; [address], [address] 4 14:32:58 Aphasia Active 2020 Problem Code: R47.01; Problem Code Type: ICD-10; [address], [address] 4 14:32:58 Atypical squamous cells of undetermined significance on cervical Papanicolaou smear Active 2021 Problem Code: R87.610; Problem Code Type: ICD-10; [address], [address] 4 14:32:58 Cough Active 2021 Problem Code: R05.8; Problem Code Type: ICD-10; [address], [address] 4 14:32:58 Family history of malignant neoplasm of digestive organ Active 2022 Problem Code: Z80.0; Problem Code Type: ICD-10; [address], [address] 4 14:32:58 Screening for malignant neoplasm of colon Active 2022 Problem Code: Z12.11; Problem Code Type: ICD-10; [address], [facility] [address] , [facility] 4 14:32:58 Abdominal pain Active 2022 Problem Code: R10.9; Problem Code Type: ICD-10; [address], [place] [address] , [facility] 4 14:32:58 Altered bowel function Active 2022 Problem Code: R19.4; Problem Code Type: ICD-10; [address], [facility] [address] , [facility] 4 14:32:59 Acute subendocardia l infarction Completed 201306/10/2023 Problem Code: 410.72; Problem Code Type: ICD-9; Not Available [facility] 3 04:31:08 Posttraumatic headache Completed 201809/10/2021 Problem Code: G44.309; Problem Code Type: ICD-10; Not Available [facility] 3 04:31:08 Disorder of eye region Completed 201905/08/2020 Problem Code: H57.89; Problem Code Type: ICD-10; Not Available [facility] 3 04:31:08 Disorder of skin and/or subcutaneous tissue Completed 201502/19/2016 Problem Code: L98.9; Problem Code Type: ICD-10; Not Available [facility] 3 04:31:08 Dyspnea Completed 201502/19/2016 Problem Code: R06.09; Problem Code Type: ICD-10; Not Available [facility] 3 04:31:09 Neck pain Completed 201409/10/2021 Problem Code: M54.2; Problem Code Type: ICD-10; Not Available [facility] 3 04:31:09 Hypertensive disorder Completed 201206/10/2023 Not Available [facility] 3 04:31:09 Visual disturbance Completed 201709/12/2019 Problem Code: H53.9; Problem Code Type: ICD-10; Not Available [facility] 3 04:31:09 Headache Completed 201709/12/2019 Problem Code: R51; Problem Code Type: ICD-10; Not Available [facility] 3 04:31:09 Exposure to communicable disease Completed 201905/08/2020 Problem Code: Z20.828; Problem Code Type: ICD-10; Not Available [facility] 3 04:31:10 Constipation Completed 201705/08/2020 Problem Code: K59.00; Problem Code Type: ICD-10; Not Available [facility] 3 04:31:10 Exposure to sting or bite by insect Completed 202112/08/2022 Not Available [facility] 3 04:31:10 Traumatic or non-traumatic injury Completed 201605/08/2020 Problem Code: T14.8; Problem Code Type: ICD-10; Not Available [facility] 3 04:31:10 Sciatica Completed 201809/10/2021 Problem Code: M54.30; Problem Code Type: ICD-10; Not Available [facility] 3 04:31:10 Bleeding from nose Completed 202203/30/2023 Problem Code: R04.0; Problem Code Type: ICD-10; Not Available [facility] 3 04:31:11 Low back pain Completed 202009/10/2021 Problem Code: M54.5; Problem Code Type: ICD-10; Not Available [facility] 3 04:31:11 Pain in left foot Completed 202203/30/2023 Problem Code: M79.672; Problem Code Type: ICD-10; Not Available [facility] 3 04:31:11 Dizziness and giddiness Completed 202203/30/2023 Problem Code: R42; Problem Code Type: ICD-10; Not Available [facility] 3 04:31:11 Pain of right shoulder joint Completed 201909/10/2021 Problem Code: M25.511; Problem Code Type: ICD-10; Not Available [facility] 3 04:31:11 Chest pain Completed 201412/08/2022 Problem Code: R07.89; Problem Code Type: ICD-10; Not Available [facility] 3 04:31:12 Fever Completed 202112/08/2022 Problem Code: R50.9; Problem Code Type: ICD-10; Not Available [facility] 3 04:31:12 Exposure to communicable disease Completed 201909/10/2021 Problem Code: Z20.9; Problem Code Type: ICD-10; Not Available [facility] 3 04:31:12 Coronary arteriosclero sis Completed 201306/10/2023 Not Available [facility] 3 04:31:13 Abnormal weight gain Completed 202203/30/2023 Problem Code: R63.5; Problem Code Type: ICD-10; Not Available [facility] 3 04:31:13 Streptococcal sore throat Active 2022 ROSALBA MCKEON APRN [address], [place], [address] , [facility]. 4 14:32:58 Infection of tooth Active 2023 ROSALBA MCKEON APRN [address], [place], [address] , [facility]. 4 14:32:58 Oral infection Active 2023 ROSALBA MCKEON APRN [address], [place], [address] , [facility]. 4 14:32:58 Herpes zoster Active [address], [facility] [address] , [facility] 4 14:32:58 Post-herpetic polyneuropath y Active [address], [facility] [address] , [facility] 4 15:37:27 Itching of eye Active [address], [facility] [address] , [facility] 4 11:33:48 Muscle spasm of cervical muscle of neck Active [address], [facility] [address] , [facility] 4 16:37:40 Increased liver function Active [address], [facility] [address] , [facility] 4 04:54:49 Nonulcer dyspepsia Active [address], [facility] [address] , [facility] 4 08:26:01 Problem Notes None recorded. Medical Equipment None Reported. Allergies Allergen ID Allergen Name Allergen Category Reaction Reaction Severity Criticality Documentation Date Start Date Code Code System Note Provider Name and Address Organization Details Recorded Time 26684 lisinopri l medicatio n cough mild Not available 07/24/20232013 34770 RxNorm cough Aller gyCod e: '3140 76'; Aller gyNam e: 'RAJIV NOPRI L'; Aller gyCon ceptT ype: 'RX Norm' ; Not Available [facility] 3 16:14:44 Medications Name Sig Start Date [...] Updated DateTime 4 159.26 cm 22.3 kg/m2 56854.6 1 g 64 /min 128 mm[Hg] 82 mm[Hg] Sujatha Massey RN [facility] 4 08:18:55 Social History Question Answer Notes LastModified by Organizat ion Details LastModified Time Tobacco Smoking Status Former Smoker JAMAR MEJIA RN [facility], [facility] 08/21/2023 11:02:00 When Did You Quit Smoking? 16+yearssinc elastcigaret te [email or web address] Information not available 08/21/2023 What Was The Date Of Your Most Recent Tobacco Screening? 01/15/2024 [email or web address] Information not available 01/15/2024 Has Tobacco Cessation Counseling Been Provided? No [email or web address] Information not available 08/21/2023 Do You Or Have You Ever Used Any Other Forms Of Tobacco Or Nicotine? No [email or web address] Information not available 08/21/2023 Sex: Female Functional [...] Recorded Time Tdap 07/21/2019 completed Not Available [facility] 06:27:29 Td(adult) unspecified formulation 01/13/2005 completed Not Available [facility] 07/24/2023 06:27:29 COVID-19, mRNA, LNP-S, PF, 100 mcg/0.5mL dose or 50 mcg/0.25mL dose 07/13/2021 completed Not Available [facility] 07/24/20 06:27:29 COVID-19 vaccine, vector-nr, rS-Ad26, PF, 0.5 mL 11/30/2020 completed Not Available [facility] 07/24/2023 06:27:30 Past Encounters Encounter ID Performer Location Encounter Start Date Encounter Closed Date Diagnosis/Indication Diagnosis SNOMED-CT Code [id number] ROSALBA MCKEON APRN [address] [address] 04/04/2024 08:05:40 04/04/2024 08:58:24 Atherosclerosis of coronary artery without angina pectoris 286162911906131 Nicotine dependence 5629 4008 Increased liver function 11122037 Nonulcer dyspepsia 55280 07 Health Concerns Section Related Observation LastModified by Organization Detai ls LastModified Time None Recorded Concern Status LastModified by Organization Details LastModified Time None Recorded Payers Encounter Date Sequence Insurance Name Policy Number Policy Horan Covered Member ID Horan Member ID Guarantor Name 04/04/2024 1 [facility] (MEDICAID) Isa Ro [id number] Isa Ro Notes Date Note Type Note Provider Name and Address Organization Details Recorded Time 04/04/2024 text/html HPI Notes: Is he re for follow-up hospital stay. Was admitted to [facility] on 03/19/22.4 Discharged on 03/22/24 [address]charge dx was acute ST elevation OR due to occlusion of left anterior descending [...] 80mg daily CoQ10 supplementation Was referred to [facility] cardiology. has FU [facility] cardiology appt scheduled. She was having symptoms with coreg, this was stopped by oncall provider and switched back to metoprolol succ. BP had been 100/55 with coreg. She does admit that previously using metoprolol and her HR never raised up with activity and caused fatigue and had stopped. ROSALBA MCKEON, CROP QUANTITATIVE GENETICIST [address], [place], [address], [facility]. 04/04/2024 09:58:16 OBGyn Episode No OBEpisode recorded.
--- OUTSIDE RECORDS SUMMARY | 2024-04-20 11:46 | XMS_ITS | Encounter Summary ---
Author Organization [facility] Address [address] [place] [address] Care Team Providers Care Mine Safety Engineer Name Role Phone Pretty Avery MD Primary Care Provider [phone] Encounter Details Date Type Department Care Team (Late st Contact Info) Description 07/26/2021 Lab Requisition [facility] Pathology & [place] [address] Outr Resulting Lab, Provider Social History Tobacco [...] Lyme Ab Negative Negative 07/29/2021 9:57 EST [facility] Blood VENOUS BLOOD / Unknown 07/26/2021 10:55 EST 07/26/2021 21:29 EST Provider Outr Resulting Lab IMMUNOLOGY A ND SEROLOGY ORDERABLES Performing Organization Address City/State/[facility] Co de Phone Number [facility] [address] [place] [address] documented in this encounter Visit Diagnoses Not on filedocumented in this encounter Care Teams Mine Safety Engineer Relationship Specialty Start Date End Date Pretty Avery MD [address] [place] [address] PCP - General 06/05/10 documented as of this encounter
--- OUTSIDE RECORDS SUMMARY | 2024-04-20 11:46 | XMS_ITS | Encounter Summary ---
Author Organization [facility] Address [address] [place] [address] Care Team Providers Care Finishing Machine Operator Automatic Name Role Phone Pretty Avery MD Primary Care Provider [phone] Encounter Details Date Type Department Care Team (Latest Contact Info) Description 06/18/2018 9:36 EDT - 06/18/2018 23:59 EDT Hospital Encounter [facility] - [address] [address] Unknown, Provider, Discharge Disposition: Home or Self [...] on filedocumented in this encounter Care Teams Finishing Machine Operator Automatic Relationship Specialty Start Date End Date Pretty Avery MD [address] [place] [address] PCP - General 06/05/10 documented as of this encounter
--- OUTSIDE RECORDS SUMMARY | 2024-04-20 11:46 | XMS_ITS | Clinical Summary ---
Author Organization [facility] Address [address] [place] [address] Care Team Providers Care Detonator Assembler Name Role Phone Pretty Avery MD Primary Care Provider [phone] Allergies No known active allergies Medications Medication [...] Date NSTEMI (non-ST elevated myocardial infarction) ( [facility]) 03/30/2014 Surgical History Surgery Date Site/Laterality [...] Advance Directives For more information, please contact: [phone] * Full Code (Latest Code Status on File) Date Activated Date Inactivated Comments 12/15/2014 9:53 12/15/2014 18:00 Question Answer Comments Reason for decision includes: Full code consistent with overall plan of care Who participated in the discussion? Patient * Full Code Date Activated Date Inactivated Comments 03/30/2014 20:42 04/01/2014 17:36 Care Teams Detonator Assembler Relationship Specialty Start Date End Date Pretty Avery MD [address] [place] [address] [facility] - General 06/05/10
--- OUTSIDE RECORDS SUMMARY | 2024-04-20 11:47 | XMS_ITS | Encounter Summary ---
Author Organization [facility] Address [address] [place] [address] Care Team Providers Care Nurse Practitioner Hospitalist Name Role Phone Pretty Avery MD Primary Care Provider Encounter Details Date Type Department Care Team (Latest Contact Info) Description 03/30/2014 10:20 EDT - 03/30/2014 20:09 EDT Hospital Encounter [facility] [address] [place] [address] Unknown, Provider, Discharge Disposition: Home or Self [...] on filedocumented in this encounter Care Teams Nurse Practitioner Hospitalist Relationship Specialty Start Date End Date Pretty Avery MD [address] [place] [address] PCP - General 06/05/10 documented as of this encounter
--- OUTSIDE RECORDS SUMMARY | 2024-04-20 11:47 | XMS_ITS | Encounter Summary ---
Author Organization [facility] Address [address] [place] [address] Care Team Providers Care Websphere Portal Developer Name Role Phone Pretty Avery MD Primary Care Provider [phone] Reason for Visit * Reason Onset Date Comments Post-op Problem 12/17/2014 Encounter Details Date Type Department Care Team (Late st Contact Info) Description 12/17/2014 Telephone [facility] Cardiology - [address] [place], [place] [id number] Alex Freed, [address] [address] Post-op Problem Social History Tobacco [...] encounter Miscellaneous Notes * Telephone Encounter - Alxe Freed DO - 12/17/2014 [id number] EDT Isa called on 12/16/14 with complaints [...] at 18:00. Alex Freed DO 12/17/2014 11:53 Biological Technician documented in this encounter Plan of Treatment Not on file documented as of this encounter Visit Diagnoses Not on filedocumented in this encounter Care Teams Websphere Portal Developer Relationship Specialty Start Date End Date Pretty Avery MD [address] [place] [phone] PCP - General 06/05/10 documented as of this encounter
--- OUTSIDE RECORDS SUMMARY | 2024-04-20 11:47 | XMS_ITS | Encounter Summary ---
Author Organization [facility] Address [address] [place] [address] Care Team Providers Care Stem Threshing Machine Operator Name Role Phone Unavailable Primary Care Provider Unavailabl e Encounter Details Date Type Department Care Team (Late st Contact Info) Description 12/31/2007 14:07 EDT Hospital Encounter [address] [address] Skip Alcocer MD [address] [place] [address], [facility] [address] [place] [address] Discharge Disposition: Auto Discharge Social History Tobacco [...] 10:19 EST CYTOPATHOLOGY Routine 08/28/2008 0:00 EST RETIREMENT VIABILITY 12/31/2007 16:20 EDT RETIREMENT CHORIONIC BARRETO SAMPLING 12/31/2007 15:40 EDT documented [...] GE NERAL ORDERABLES Performing Organization Address City/State/[facility] Co de Phone Number [facility] [address] [place] [address] * CYTOPATHOLOGY (08/28/2008 0:00 EST) Pathology Report: CYTOPATHOLOGY REPORT ? Reports generated via electronic interface contain original data; ? however they are lacking the format of the original report. ? Caution should be taken when reading/interpreti ng unformatted reports. ? Name: ? EZEQUIEL THOMAS ? Accession #: ? [id number] ? : ? 1965 (Age: 43) ??F ?Collect Date: ? 08/28/2008 ? Location: ? [facility] ? Receive Date: ? 08/30/2008 ? Provider[facility] ?[facility] ? Copy to: ? Specimen/Source: [...] significance (ASC-US). ? EDUCATIONAL NOTES/RECOMMENDATI ONS ? [facility] recommends following the 2006 Consensus Guidelines for the Management of Women with Abnormal Cervical Cancer Screening Tests (JLGTD, ? 2007;11(4):201-222 ). ??Consensus guidelines are available online at ? www.ASCCP.org. ? Document reviewed and electronically signed by: ? MARIAA Beverly PLOTZ MD ? Report Date: ??09/04/2008 10:20 ? End of Report ? [facility] 08/28/2008 08/30/2008 Fred Reece [facility] PATHOLOGY ORDERAB LES Performing Organization Address City/State/[facility] Co de Phone Number [facility] [address] [place] [address] * RETIREMENT VIABILITY (12/31/2007 16:20 EDT) Anatomical Region Laterality Modality Other 12/31/2007 16:2 0 EDT Narrative 02/25/2009 13:06 EDT first trimester prior to cvs Please refer to the separate [facility] report. ??Contact Maternal Medicine. Procedure Note Magdalena Strickland MD - 02/25/2009 first trimester prior to cvs Please refer to the separate [facility] report. Contact Maternal Medicine. Magdalena Strickland MD [facility] [place] * RETIREMENT CHORIONIC BARRETO SAMPLING (12/31/2007 15:40 EDT) Anatomical [...] Contact Maternal Medicine. Skip Reyes MD [facility] [place] documented in this encounter Visit Diagnoses Not on filedocumented in this encounter
--- OUTSIDE RECORDS SUMMARY | 2024-04-20 11:47 | XMS_ITS | Encounter Summary ---
Author Organization [facility] Address [facility] [place] [address] Care Team Providers Care Instrumentation Tech Name Role Phone None Primary Care Provider Unavailabl e Encounter Details Date Type Department Care Team (Late st Contact Info) Description 03/27/2024 Telephone Cardiology at [address] [place] [phone] Collins Yanes PA [facility] [place] [address] Social History Tobacco Use Types Packs/Day Years Used Date Smoking Tobacco: Former Smokeless Tobacco: Never Alcohol Use Standard Drinks/Week Comments Yes 14 (1 standard drink = 0.6 oz pu re alcohol) [facility] Utilities Answer Date [...] in the past 12 m [facility], were you homeless or living in a [...] 03/27/2024 10:39 AM EDT Received page from checkering machine operator. Isa called in from home [...] 10:40 AM EDT Office Visit Cardiology at [address] [phone] Herlinda Weaver PA [facility] [place] [address] documented as of this encounter Visit Diagnoses Not on filedocumented in this encounter Care Teams Instrumentation Tech Relationship Specialty Start Date End Date None None PCP - General 03/19/24 documented as of this encounter
--- OUTSIDE RECORDS SUMMARY | 2024-04-20 11:47 | XMS_ITS | Encounter Summary ---
Author Organization [facility] Address [address] [place] [address] Care Team Providers Care Package Delivery Room Service Runner Name Role Phone Pretty Avery MD Primary Care Provider [phone] Encounter Details Date Type Department Care Team (Latest Contact Info) Description 06/06/2010 18:54 EDT - 06/06/2010 23:59 EDT Hospital Encounter [address] [address] Pretty Avery MD [address] [place] [address] Discharge Disposition: Auto Discharge Social History Tobacco [...] on filedocumented in this encounter Care Teams Package Delivery Room Service Runner Relationship Specialty Start Date End Date Pretty Avery MD [address] [place] [phone] PCP - General 06/05/10 documented as of this encounter
--- OUTSIDE RECORDS SUMMARY | 2024-04-20 11:47 | XMS_ITS | Encounter Summary ---
Author Organization [facility] Address [address] [place] [address] Care Team Providers Care Customer Response Representative Name Role Phone Unavailable Primary Care Provider Unavailabl e Encounter Details Date Type Department Care Team (Late st Contact Info) Description 12/14/2006 Results Only [facility] - [facility] conversion [address] [place] [address] Jake Sabillon FNP [address] [place], [place] [address] Social History Tobacco Use Types Packs/Day Years [...] ? EZEQUIEL THOMAS ? Accession #: ? [id number] : ? 1965 (Age: 41) ??F ?Collect Date: ? 12/14/2006 Location: ? [facility] ? Receive Date: ? 12/16/2006 Provider: ?JAKE SABILLON SHUCKER Copy to: ? Specimen/Source: ?ThinPrep Pap Test, Cervix/Endocervix, processed on Courseload ThinPrep Imaging System, with manual evaluation Last [...] Jake GARCÍAP PATHOLOGY ORDERABLES [facility] [address] [place] [address] documented in this encounter Visit Diagnoses Not on filedocumented in this encounter
--- OUTSIDE RECORDS SUMMARY | 2024-04-20 11:47 | XMS_ITS | Encounter Summary ---
Author Organization [facility] Address [address] [place] [address] Care Team Providers Care Sequins Winder Name Role Phone Pretty Avery MD Primary Care Provider [phone] Reason for Referral * Consult (Routine) - Closed Specialty Diagnoses / Procedures Referred By Contac t Referred To Contact Diagnoses NSTEMI (non-ST elevated myocardial infarction) ([facility]) S/P coronary artery stent placement Yesy Manuel NP [address] [place] [address]47 Alex Soto MD [address] [place] [address] Referral ID Status Reason Start Date Expiration Date V isits Requested Visits Authorized [id number] Closed Specialty Services Required 03/31/2014 1 1 Question Answer Reason for Request: post NSTEMI post PCI, CAD Scheduling Comments (optional ? describe specific scheduling needs if applicable): 1 month Expected Discharge Date (Inpatient Only): 04/01/2014 Comments Please schedule in [facility] cardiology clinic with Dr Alex Soto or next available assistant production manager at that clinic. Office in [place] [phone]; cardiology clinic in [facility] [phone] * Consult (Routine) - Closed Specialty Diagnoses / Procedures Referred By Contac t Referred To Contact Cardiac Rehabilitation Diagnoses NSTEMI (non-ST elevated myocardial infarction) ([facility]) S/P coronary artery stent placement Yesy Manuel NP [address] [facility] [address] [place] [address] Referral ID Status Reason Start Date Expiration Date V isits Requested Visits Authorized [id number] Closed Specialty Services Required 03/31/2014 1 1 Question Answer Reason for Request: post NSTEMI, post pci, CAD Scheduling Comments (optional ? describe specific scheduling needs if applicable): 1 week Expected Discharge Date (Inpatient Only): 04/01/2014 Comments Please refer to [facility] in [facility] Encounter Details Date Type Department Care Team (Late st Contact Info) Description 03/30/2014 20:10 EDT - 04/01/2014 15:30 EDT Hospital Encounter [facility] Cardiac/Telemetry Unit [address], [place] [id number] Waqas Yao MD [address] [facility] [address] [place] [phone] NSTEMI (non-ST elevated myocardial infarction) ([facility]) (Primary Dx); S/P coronary artery stent [...] female with h/o HTN 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 Her EKG showed non-specific ST changes and trops elevated at 0.179. She was transferred to [facility] for NSTEMI. She was started on heparin gtt, ASA, atovastatin, metoprolol, and ticagelor load. Heparin was weaned over the night. In the morning she had 2 more episodes of chest pain, and given SL nitro x2, whichimproved pain. She was later taken for [facility] after a discussion of the need to be on blood thinning medications for 12 months if a stent was to be placed. The patient agreed. Her [facility] had culprit lesionin LAD, which was [...] Consult/Follow Up Cardiac Rehabilitation Please refer to [facility] in [facility] Reason for Request: post NSTEMI, post pci, CAD Expected Discharge Date (Inpatient Only): 04/01/2014 Scheduling Time Frame: 1 week Authorizing Provider: Yesy Manuel NP Amb Consult/Follow Up Cardiology Please schedule in [facility] cardiology clinic with Dr Alex Soto or next available assistant production manager at that clinic. Office in [place] [phone]; cardiology clinic in [facility] [phone] Reason for Request: post NSTEMI post PCI, [...] up with cardiology in 4-6 weeks at [facility] Please continue your cardiac medications, [...] weeks. * Tali Jacobs MD - 03/31/2014 6578 EDT Cardiology Post Procedure Note Date of [...] case management office. Quyen Barrett RN, CM pager#[phone] * Yesy Manuel NP - 03/31/2014 1308 EDT Ticagrelor twice daily without interruption x 1 year reviewed with patient and she verbalizes understanding. Cardiac rehab reviewed with patient and the patient is willing to attend at [facility]. Referral sent and written material given to patient.Follow up has been requested with Dr Alex Soto in cardiology clinic, [facility]. manager fast food contacted for [employer] coverage. 2+ right radial pulse, no hematoma. * Mitch Teixeira RN - 03/31/2014 0901 EDT Case Management Assessment & Initial Discharge Plan Working Diagnosis/Presenting Problem: NSTEMI Living Arrangements: Lives with 5 yo son at home, family member taking care of son while in hospital. 2-3steps to enter 2 story home. 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 Social Supports: Mother lives locally, friends available Existing Community Resources: No HH in past or currently, does not foresee needs upon discharge. PCP Pretty Avery MD Advanced Directives/DPOA: AD pamphlet given to patient Cultural/Spiritual Needs: Denied visit Insurance/Financial Needs: Medicaid coverage, pharmacy is [facility] in [facility] Transportation Needs: May need assistance with transportation, trying to set up a ride from family for d/c. Patient's car is in [place] currently. Patient Goals: No other needs at [...] relived with rest. She was taken to [facility] and treated with nitro and aspirin. The patient experienced some relief with nitro. EKG showed non specific st changes and trops were elevated. She was transferredto [facility] for management. Currently with the [...] clinical course Shahid Rayo MD Pager # [phone] 03/30/2014 21:10 Attestation statement::I have seen and [...] Procedure: She was brought to the [facility] Cardiac Catheterization Laboratory forthe procedure: [...] coronary artery was stented using a Resolute JHAAIRA. left anterior descending coronary artery after percutaneous [...] of Care - Robin Johnson - 03/31/2014 9557 EDT Problem: CIRCULATORY STATUS Goal: Patient Has [...] Care - Cuauhtemoc Berg RN - 03/31/2014 6626 EDT Problem: CIRCULATORY STATUS Goal: Patient Has Stable Vital Signs And Fluid Balance Outcome: Ongoing D: Patient arrived to [place] [address]. Vital signs noted, and tele applied. Patient [...] Referral Routine NSTEMI (non-ST elevated myocardial infarction) ([facility]) S/P coronary artery stent placement Ordered: 03/31/2014 AMB CONS/FOLLOW UP CARDIOLOGY Outpatient Referral Routine NSTEMI (non-ST elevated myocardial infarction) ([facility]) S/P coronary artery stent placement Ordered: [...] 9:34 EST) 09/26/2015 9:34 EST Scan 2 Outsole Scheduler PROCEDURE/MINOR SHAYY GICAL ORDERABLES * ECG REPORT - SCANNED (04/06/2014 13:00 EDT) 04/06/2014 13:0 0 EDT Scan 2 Outsole Scheduler PROCEDURE/MINOR SHAYY GICAL ORDERABLES * ECG REPORT - SCANNED (04/06/2014 13:00 EDT) 04/06/2014 13:0 0 EDT Scan 2 Outsole Scheduler PROCEDURE/MINOR SHAYY GICAL ORDERABLES * INVASIVE CARDIOLOGY REPORT-SCANNED (04/06/2014 13:00 EDT) 04/06/2014 13:0 0 EDT Scan 2 Outsole Scheduler PROCEDURE/MINOR SHAYY GICAL ORDERABLES * ECG REPORT - SCANNED (04/05/2014 7:12 EDT) 04/05/2014 7:12 EDT Scan 2 Outsole Scheduler PROCEDURE/MINOR SHAYY GICAL ORDERABLES * ECG REPORT - SCANNED (04/04/2014 11:58 EDT) 04/04/2014 11:5 8 EDT Scan 2 Outsole Scheduler PROCEDURE/MINOR SHAYY GICAL ORDERABLES * ECG REPORT - SCANNED (04/04/2014 11:56 EDT) 04/04/2014 11:5 6 EDT Scan 2 Outsole Scheduler PROCEDURE/MINOR SHAYY GICAL ORDERABLES * (ABNORMAL) DIFFERENTIAL [...] PF4 ORD ERABLES [facility] [address] [place] [address] * HEMAGRAM (04/01/2014 5:50 EDT) WBC 11.20 [...] & PF4 ORD ERABLES Performing Organization Address [facility] de Phone Number [facility] [address] [place] [address] * PTT (04/01/2014 5:50 EDT) PTT 27 26 - 37 secs [facility] Comment:Therapeutic Heparin range: 65-100 seconds Blood specimen (specimen) 04/01/2014 5:50 EDT 04/01/2014 6:36 EDT Shahid Rayo MD HEMATOLOGY & PF4 ORD ERABLES Performing Organization Address [facility] Phone Number [facility] [address] [place] [address] * CREATININE (04/01/2014 5:50 EDT) Creatinine 0.69 0.52 - 1.04 mg/dl [facility] GFR, Calculated >60 >60 ml/min/1.7 3m2 [facility] Blood specimen (specimen) 04/01/2014 5:50 EDT 04/01/2014 6:36 EDT Shahid Rayo MD CHEMISTRY & BLOOD GA S ORDERABLES Performing Organization Address [facility] de Phone Number [facility] [address] [place] [address] * BUN (04/01/2014 5:50 EDT) BUN 10 10 - 26 mg/dl [facility] Blood specimen (specimen) 04/01/2014 5:50 EDT 04/01/2014 6:36 EDT Shahid Rayo MD CHEMISTRY & BLOOD GA S ORDERABLES Performing Organization Address [facility] Co de Phone Number [facility] [address] [place] [address] * ELECTROLYTES (04/01/2014 5:50 EDT) Sodium 138 136 - 145 mEq/L [facility] Potassium 4.2 3.5 - 5.0 mEq/L [facility] Chloride 107 96 - 110 mEq/L [facility] CO2 24 24 - 32 mEq/L [facility] Blood specimen (specimen) 04/01/2014 5:50 EDT 04/01/2014 6:36 EDT Shahid Rayo MD CHEMISTRY & BLOOD GA S ORDERABLES Performing Organization Address [facility] Co de Phone Number [facility] [address] [place] [address] * CK MB WITH TOTAL CK (04/01/2014 5:50 EDT) CK 35 30 - 135 U/L [facility] MB 1.58 <2.95 ng/ml [facility] Blood specimen (specimen) 04/01/2014 5:50 EDT 04/01/2014 6:36 EDT Yesy Manuel NP CHEMISTRY & BLOOD GA S ORDERABLES Performing Organization Address [facility] Co de Phone Number [facility] [address] [place] [address] * CK MB WITH TOTAL CK (03/31/2014 22:14 EDT) CK 42 30 - 135 U/L [facility] MB 1.72 <2.95 ng/ml [facility] Blood specimen (specimen) 03/31/2014 22:14 EDT 03/31/2014 22:19 EDT Shahid Rayo MD CHEMISTRY & BLOOD GA S ORDERABLES Performing Organization Address City/[facility]/ZIP Co de Phone Number [facility] [address] [place] [address] * (ABNORMAL) TROPONIN I (03/31/2014 14:32 EDT) Troponin I (ng/mL) 0.136(H) <0.034 ng/ml [facility] Blood specimen (specimen) 03/31/2014 14:32 EDT 03/31/2014 15:09 EDT Shahid Rayo MD CHEMISTRY & BLOOD [place] S ORDERABLES Performing Organization Address [facility] de Phone Number [facility] [address] [place] [address] * CK MB WITH TOTAL CK (03/31/2014 14:32 EDT) CK 62 30 - 135 U/L [facility] MB 2.04 <2.95 ng/ml [facility] Blood specimen (specimen) 03/31/2014 14:32 EDT 03/31/2014 15:09 EDT Shahid Rayo MD CHEMISTRY & BLOOD GA S ORDERABLES Performing Organization Address [facility] de Phone Number [facility] [address] [place] [address] * EKG 12-LEAD (03/31/2014 13:30 EDT) 03/31/2014 13:3 0 EDT Narrative [facility] EKG - 04/04/2014 7:56 EDT ?[facility] ? Test Date: ?2014-03-31 Pat Name: ? ISA RO ?Department: ?? [facility] ? Room: ? MW511 Gender: ? F ?Wall Cleaner: ?? [id number] : ?1965 ? Requested By: YESY MANUEL ELECTRICAL TECHNICIAN Order Number: [id number] ? Reading MD: ?? BRYAN PURDY MD ? Measurements Intervals ?[place] ? Rate: ? 50 ? P: ?57 NV: ? 154 ?QRS: ?29 QRSD: ? 90 [...] Date: 2014-03-31 Pat Name: ISA RO Department: [place] [address] Room: [facility] Gender: F Wall Cleaner: [id number] : 1965 Requested By: YESY MANUEL NP Order Number: [id number] Reading MD: BRYAN PURDY MD Measurements Intervals [place] Rate: 50 P: 57 NV: 154 QRS: 29 QRSD: 90 T: 38 [...] EDT Narrative 03/31/2014 13:08 EDT Cardiology [address] [place] [address] Catheterization Laboratory Study Patient: sIa Ro ? Study Date: ?03/31/2014 ? Accession #: ? [id number] : ? 1965 Referring Physician: Dilip Mahajan [...] successfully achieved. SUMMARY: 1. HPI and indications: Ozw-KR-jcadqacs myocardial infarction. 2. LAD: Proximal vessel lesion: [...] 4. Continue aspirin, at 81mgPOdaily, indefinitely. HISTORY: Uoo-TY-quvynxms myocardial infarction. ??Functional status: ?? CCS class [...] radial artery access. A 5Fr/10 cm Terumo [place] Sheath Radial sheath was ?? advanced into [...] 2014-03-31 13:08 Procedure Note 03/31/[address] [place] [address] Catheterization Laboratory Study Patient: Isa Ro Study [...] successfully achieved. SUMMARY: 1. HPI and indications: Tiz-KP-vekhdzzk myocardial infarction. 2. LAD: Proximal vessel lesion: [...] Add tricagrelor (Brilinta), loading dose 180mgPO, standing [id number], for 12mon. 4. Continue aspirin, at 81mgPOdaily, indefinitely. HISTORY: Efg-EJ-nzsctmvi myocardial infarction. Functional status: CCS class IV [...] radial artery access. A 5Fr/10 cm Terumo [place] Sheath Radialsheath was advanced into the vessel. [...] 2. Vessel setup was performed. A 180 MyWedding wire was used to crossthe lesion. 3. [...] EDT *Interpreting Group:* *[facility]* [address] [place] [address] *STUDY CONCLUSIONS* Summary: ?? Left ventricle: The [...] ATTENDING ?Waqas Yao MD REFERRING ?Pretty Avery* DIRECTOR REGULATORY AFFAIRS ??Tracey Black PERFORMING ?? [facility], FELLOW ? Abiodun Velez ORDERING ? Joel Parker REFERRING ?Joel Parker j *PROCEDURE DATA* Procedure information: ??This study was interpreted by [facility] at [facility]. ??Study status: ??Routine. Transthoracic echocardiography. ??M-mode, complete 2D, complete spectral Doppler, and color Doppler. A Transthoracic Echocardiogram was performed. Scanning was performed from the parasternal, apical, subcostal, and suprasternal notch acoustic windows. Images were obtained using a Shubham IE33 3 cardiac ultrasound machine. Image quality was adequate. ??Study completion: ??The patient tolerated the procedure well. *INDICATIONS AND HISTORY* Indications: ?? [place] - nontransmural - acute 410.71. *CARDIAC ANATOMY* [...] 03/31/2014 11:13 Procedure Note 03/31/2014 *Interpreting Group:* *[facility]* [address] [place] [address] *STUDY CONCLUSIONS* Summary: Left ventricle: The cavity [...] ATTENDING Waqas Yao MD REFERRING Pretty Avery* DIRECTOR REGULATORY AFFAIRS Tracey Black PERFORMING Fa, FELLOW Abiodun Velez ORDERING Joel Parker REFERRING Joel Parker j *PROCEDURE DATA* Procedure information: This study was interpreted by [facility] at [facility]. Study status: Routine.Transthoracic echocardiography. M-mode, complete 2D, complete spectral Doppler, andcolor Doppler. A Transthoracic Echocardiogram was performed. Scanning wasperformed from the parasternal, apical, subcostal, and suprasternal notch acoustic windows. Images were obtained using a Shubham IE33 3 cardiac ultrasoundmachine. Image quality was adequate. Study completion: The patient tolerated the procedure well. *INDICATIONS AND HISTORY* Indications: [place] - nontransmural - acute 410.71. *CARDIAC ANATOMY* [...] ? Room: ? MW511 Gender: ? F ?Wall Cleaner: ?? [id number] : ?1965 ? Requested By: WAQAS YAO MD Order Number: [id number] ? Reading MD: ?? LYDIA DALTON MD ? Measurements Intervals ?[place] ? Rate: ? 59 ? P: ?58 NV: ? 154 ?QRS: ?41 QRSD: ? 88 [...] Date: 2014-03-31 Pat Name: ISA SHEPHERDISAI Department: [place] [address] Room: MW511 Gender: F Wall Cleaner: [id number] : 1965 Requested By: WAQAS YAO MD Order Number: [id number] Reading MD: LYDIA DALTON MD Measurements Intervals [place] Rate: 59 P: 58 NV: 154 QRS: 41 QRSD: 88 T: 43 [...] & PF4 ORD ERABLES Performing Organization Address City/[facility]/ZIP Co de Phone Number [facility] [address] [place] [address] * HEMAGRAM (03/31/2014 6:43 EDT) Pathologist [facility] WBC 8.21 4.0 - 12.4 K/cmm [facility] [...] & PF4 ORD ERABLES Performing Organization Address City/[facility] Co de Phone Number [facility] [address] [place] [address] * (ABNORMAL) PTT (03/31/2014 6:43 EDT) Pathologist [facility] PTT 51(H) 26 - 37 secs [facility] Comment:Therapeutic Heparin range: 65-100 seconds Blood specimen (specimen) 03/31/2014 6:43 EDT 03/31/2014 7:01 EDT Shahid Rayo MD HEMATOLOGY & PF4 ORD ERABLES Performing Organization Address [facility] de Phone Number [facility] [address] [place] [address] * CREATININE (03/31/2014 6:43 EDT) Pathologist [facility] Creatinine 0.70 0.52 - 1.04 mg/dl [facility] GFR, Calculated >60 >60 ml/min/1.7 3m2 [facility] Blood specimen (specimen) 03/31/2014 6:43 EDT 03/31/2014 7:01 EDT Shahid Rayo MD CHEMISTRY & BLOOD GA S ORDERABLES Performing Organization Address [facility] de Phone Number [facility] [address] [place] [address] * BUN (03/31/2014 6:43 EDT) BUN 15 10 - 26 mg/dl [facility] Blood specimen (specimen) 03/31/2014 6:43 EDT 03/31/2014 7:01 EDT Shahid Rayo MD CHEMISTRY & BLOOD GA S ORDERABLES Performing Organization Address [facility] Phone Number [facility] [address] [place] [address] * ELECTROLYTES (03/31/2014 6:43 EDT) Sodium 139 136 - 145 mEq/L [facility] Potassium 4.2 3.5 - 5.0 mEq/L [facility] Chloride 107 96 - 110 mEq/L [facility] CO2 24 24 - 32 mEq/L [facility] Blood specimen (specimen) 03/31/2014 6:43 EDT 03/31/2014 7:01 EDT Shahid Rayo MD CHEMISTRY & BLOOD GA S ORDERABLES Performing Organization Address [facility] Phone Number [facility] [address] [place] [address] * LIPID PROFILE (INCLUDES CHOLESTEROL, TRIGLYCERIDES, HDL, LDL) (03/31/2014 6:43 EDT) Cholesterol 152 mg/dl [facility] Comment: Desirable:<200 Borderline High:200-239 High:>id=453 Triglycerides 100 mg/dl [facility] Comment: Normal:<150 Borderline High:150-199 High:200-499 Very High:>pa=946 HDL 50 mg/dl [facility] Comment: Low:<40 Normal:40-60 Desirable: >60 LDL, Calculated 82 mg/dl [facility] Comment: Optimal:<100 Near Optimal:100-129 Borderline High:130-159 High:160-189 Very High:>fo=428 Chol/HDL Ratio 3.0 [facility] Fasting? Unknown [facility] Non HDL Cholesterol 102 mg/dl [facility] Comment: Desirable:<130 Borderline:130-159 High: 160-189 Very High: >ec=400 Blood specimen (specimen) 03/31/2014 6:43 EDT 03/31/2014 7:01 EDT Shahid Rayo MD CHEMISTRY & BLOOD GA S ORDERABLES Performing Organization Address [facility] Co de Phone Number [facility] [address] [place] [address] * (ABNORMAL) TROPONIN I (03/31/2014 6:43 EDT) Troponin I (ng/mL) 0.180(H) <0.034 ng/ml [facility] Blood specimen (specimen) 03/31/2014 6:43 EDT 03/31/2014 7:01 EDT Shahid Rayo MD CHEMISTRY & BLOOD GA S ORDERABLES Performing Organization Address [facility] Co de Phone Number [facility] [address] [place] [address] * CK MB WITH TOTAL CK (03/31/2014 6:43 EDT) CK 55 30 - 135 U/L [facility] MB 2.51 <2.95 ng/ml [facility] Blood specimen (specimen) 03/31/2014 6:43 EDT 03/31/2014 7:01 EDT Shahid Rayo MD CHEMISTRY & BLOOD GA S ORDERABLES Performing Organization Address [facility] Co de Phone Number [facility] [address] [place] [address] * HEMOGLOBIN A1C (03/31/2014 6:43 EDT) Hemoglobin [...] BLOOD GA S ORDERABLES Performing Organization Address [facility] Co de Phone Number [facility] [address] [place] [address] * HEMAGRAM (03/30/2014 22:23 EDT) WBC 9.80 [...] HEMATOLOGY & PF4 ORDERABLES Performing Organization Address [facility] de Phone Number [facility] [address] [place] [address] * INPATIENT ADD-ON (03/30/2014 22:00 EDT) Pathologist [facility] Tests to be added HEMAGRAM [facility] Number for problems MW5 [facility] Accession number [id number] [facility] 03/30/2014 22:0 0 EDT 03/30/2014 22:10 EDT Shahid Rayo MD HEMATOLOGY & PF4 ORD ERABLES Performing Organization Address [facility] Co de Phone Number [facility] [address] [place] [address] * CK MB WITH TOTAL CK (03/30/2014 21:01 EDT) [facility] CK 59 30 - 135 U/L [facility] MB 2.26 <2.95 ng/ml [facility] Blood specimen (specimen) 03/30/2014 21:01 EDT 03/30/2014 21:10 EDT Shahid Rayo MD CHEMISTRY & BLOOD GA S ORDERABLES Performing Organization Address [facility] Co de Phone Number [facility] [address] [place] [address] * (ABNORMAL) TROPONIN I (03/30/2014 21:01 EDT) [facility] Troponin I (ng/mL) 0.179(H) <0.034 ng/ml [facility] Blood specimen (specimen) 03/30/2014 21:01 EDT 03/30/2014 21:10 EDT Shahid Rayo MD CHEMISTRY & BLOOD GA S ORDERABLES Performing Organization Address [facility] de Phone Number [facility] [address] [place] [address] * CREATININE (03/30/2014 21:01 EDT) [facility] Creatinine 0.74 0.52 - 1.04 mg/dl [facility] GFR, Calculated >60 >60 ml/min/1.7 3m2 [facility] Blood specimen (specimen) 03/30/2014 21:01 EDT 03/30/2014 21:10 EDT Shahid Rayo MD CHEMISTRY & BLOOD GA S ORDERABLES Performing Organization Address [facility] Phone Number [facility] [address] [place] [address] * BUN (03/30/2014 21:01 EDT) BUN 13 10 - 26 mg/dl [facility] Blood specimen (specimen) 03/30/2014 21:01 EDT 03/30/2014 21:10 EDT Shahid Rayo MD CHEMISTRY & BLOOD GA S ORDERABLES Performing Organization Address [facility] de Phone Number [facility] [address] [place] [address] * ELECTROLYTES (03/30/2014 21:01 EDT) Sodium 139 136 - 145 mEq/L [facility] Potassium 3.7 3.5 - 5.0 mEq/L [facility] Chloride 105 96 - 110 mEq/L [facility] CO2 24 24 - 32 mEq/L [facility] Blood specimen (specimen) 03/30/2014 21:01 EDT 03/30/2014 21:10 EDT Shahid Rayo MD CHEMISTRY & BLOOD GA S ORDERABLES Performing Organization Address [facility] de Phone Number [facility] [address] [place] [address] * PROTIME (03/30/2014 21:01 EDT) Pro Time [...] PF4 ORD ERABLES [facility] [address] [place] [address] * (ABNORMAL) PTT (03/30/2014 21:01 EDT) PTT 130(HH) 26 - 37 secs [facility] Comment:Therapeutic Heparin range: 65-100 seconds Blood specimen (specimen) 03/30/2014 21:01 EDT 03/30/2014 21:10 EDT Shahid Rayo MD HEMATOLOGY & PF4 ORD ERABLES Performing Organization Address City/[facility] Co de Phone Number [facility] [address] [place] [address] documented in this encounter Visit Diagnoses Diagnosis NSTEMI (non-ST elevated myocardial infarction) ([facility] [facility] Primary Acute myocardial infarction, subendocardial infarction, episode of care unspecified NSTEMI (non-ST elevated myocardial infarction) ([facility]) Acute myocardial infarction, subendocardial infarction, episode of [...] 03/14 documented in this encounter Care Teams Sequins Winder Relationship Specialty Start Date End Date Pretty Avery MD [address] [place] [address] PCP - General 06/05/10 documented as of this encounter
--- OUTSIDE RECORDS SUMMARY | 2024-04-20 11:47 | XMS_ITS | Encounter Summary ---
Author Organization [facility] Address [address] [place] [address] Care Team Providers Care Marine Plumber Name Role Phone Pretty Avery MD Primary Care Provider [phone] Encounter Details Date Type Department Care Team (Late st Contact Info) Description 09/06/2013 Results Only [facility] Laboratory Services - [facility] ([facility] [address], [place] [phone] Jake Sabillon FNP [address] [place], [place] [address] Social History Tobacco Use Types Packs/Day Years [...] ANNEEZEQUIEL GREEN Chuy ? Accession #: ? [id number] : ? 1965 (Age: 48) ??F ?Collect Date: ? 09/06/2013 Location: ? [facility] ? Receive Date: ? 09/08/2013 Provider: ?JAKE SABILLON SUPERVISOR HOT DIP PLATING Copy to: ? Specimen/Source: ?Pap Test, Cervix/Endocervix, [...] Report [facility] 09/06/2013 09/08/2013 Jake Sabillon SUPERVISOR HOT DIP PLATING PATHOLOGY ORDERABLES [facility] [address] [place] [address] documented in this encounter Visit Diagnoses Not on filedocumented in this encounter Care Teams Marine Plumber Relationship Specialty Start Date End Date Pretty Avery MD [address] [place] [address] PCP - General 06/05/10 documented as of this encounter
--- OUTSIDE RECORDS SUMMARY | 2024-04-20 11:47 | XMS_ITS | Encounter Summary ---
Author Organization [facility] Address [address] [place] [address] Care Team Providers Care Reo Asset Manager Name Role Phone Pretty Avery MD Primary Care Provider [phone] Encounter Details Date Type Department Care Team (Late st Contact Info) Description 12/15/2014 9:30 EDT - 12/15/2014 15:15 EDT Hospital Encounter [facility] Cardiovascular Unit [address] [place] [address] Manpreet Naqvi MD [address] [place] [phone] Dilip Mahajan MD [address] [facility] [address] [place] [phone] Discharge Disposition: Home or Self Care Social [...] was performed by Dr. Mahajan. Phone # [phone] You have had a Cardiovascular Catheterization performed [...] 12/13/14. Will contact pt today to reschedule. cath lab notified. 12/13/14 10:00, pt rescheduled to Thursday12/15/14. [...] No Known Allergies Local Pharmacy [phone] [id number] Cardiac History: Stress Test? No Reason for Cath: chest pain, hx of cad Anginal equivalent:: Cardiac Procedures: Previous PCI done at: [facility] Stent Type/Size: 03/31/14 2.5 x 12 resolute stent prox lad Cardiac surgery: no Medical/Surgical History : Patient has a past medical history of HTN (hypertension); HLD (hyperlipidemia); Chest pain; CAD (coronary artery disease); Family history of heart disease; and Hx of non-ST elevation myocardial infarction (NSTEMI). Patient has past surgical history that includes section. Chronic Risk Factors: HTN, HLD, Previous CO and Previous PCI Smoking and Alcohol intake: [...] register on the 3rd floor [facility]. Transportation Issues: Patient/family instructed that they will need a designated team otr truck driver if they are discharged on the dayof the procedure. Medications: Medication list: Patient/family instructed to bring medication list with them on the day of the procedure. Anticoagulants/Antiplatelets: Takes brilinta bid, instructed to take aspirin 81 mg on 12/14/14-12/15/14. Anti-Anginal meds: none Michaelle Ellsworth RN documented in this encounter H&P Notes * Chun Nielsen MD - 12/15/2014 1044 EDT Grocery Stock Clerk H&P PCP: Pretty Avery MD Java Developer With Security Clearance: Date of Service: 12/15/2014 Chief Complaint: angina [...] The angina has been stable. Referred for [facility] to further evaluate. 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 Smoking status: [...] consent has been obtained. Chun Nielsen MD Grocery Stock Clerk Pager [phone] documented in this encounter Procedure Notes * [...] artery Procedure: She was brought to [facility] Cardiac Catheterization Laboratory for the procedure: [...] 4 weeks Dilip Mahajan Jr., MD PagerNumber: [phone] 12/15/2014 11:43 documented in this encounter Plan [...] EST) 09/26/2015 11:4 2 EST Scan 2 Supervisor Core Shop PROCEDURE/MINOR SHAYY GICAL ORDERABLES * INVASIVE CARDIOLOGY REPORT-SCANNED (12/19/2014 8:53 EDT) 12/19/2014 8:53 EDT Scan 2 Supervisor Core Shop PROCEDURE/MINOR SHAYY GICAL ORDERABLES * ECG REPORT - SCANNED (12/19/2014 8:17 EDT) 12/19/2014 8:17 EDT Scan 2 Supervisor Core Shop PROCEDURE/MINOR SHAYY GICAL ORDERABLES * LEFT HEART CATH (12/15/2014 11:26 EDT) Anatomical Region Laterality Modality Other 12/15/2014 11:2 6 EDT Narrative 12/18/2014 8:37 EDT [address]iology [address] [place] [address] Catheterization Laboratory Study Patient: Isa Ro ? Study Date: ?12/15/2014 ? Accession #: ? [id number] : ? 1965 Referring Physician: Pretty Avery [...] Right radial artery access. A 6 FR/10 [employer] Sheath Hunt SS .021 sheath was ?? advanced into [...] Dilip Mahajan Jr., MD - 12/18/[address] [place] [address] Catheterization Laboratory Study Patient: Isa Ro Study [...] DATA: Study status: Cardiac cath: elective. [facility] Sex: female. Patient is 49yr old. Weight: [...] artery access. A 6 FR/10 [employer] Sheath Hunt SS .021sheath was advanced into the vessel. [...] 10:12 EDT) 12/15/2014 10:1 2 EDT Narrative [facility] EKG - 12/15/2014 15:09 EDT ? [facility] ? Test Date: ?2014-12-15 Pat Name: ? ISA RO ?Department: ?? CVU ? Room: ? CVU37 Gender: ? F ?Airport Security Screener: ?? [id number] : ?1965 ? Requested By: [facility] A Order Number: [id number] ? Reading MD: ?? JOHNNY PATEL MD ? Measurements Intervals ?[place] ? Rate: ? 64 ? P: ?70 [...] Note Johnny Patel MD - 12/15/[address] [facility] Test Date: 2014-12-15 Pat Name: ISA RO Department: CVU Room: [facility] Gender: F Airport Security Screener: [id number] : 1965 Requested By: RUTH Vera Order Number: [id number] Reading MD: JOHNNY VICTOR Measurements Intervals [place] Rate: 64 P: 70 CO: 155 QRS: [...] Abiodun Velez MD CARDIAC ECG ORDER JAMI [facility] EKG * PROTIME (12/15/2014 10:04 EDT) [facility] Pro Time 10.3 9.5 - 12.3 secs 12/15/2014 10:37 [facility] I.N.R. 1.0 0.9 - 1.1 Ratio 12/15/2014 10:37 [facility] Comment: Moderate Intensity Coumadin INR = 2.0-3.0 Adjustments in anticoagulant therapy dose should be based upon the INR and NOT the Pro Time. Blood specimen (specimen) BLOOD SPECIMEN / Unknown 12/15/2014 10:04 EDT 12/15/2014 10:21 EDT Abiodun Velez MD HEMATOLOGY & PF4 ORDERABLES [facility] [address] [place] [address] * HEMAGRAM (12/15/2014 10:04 EDT) WBC 6.17 4.0 - 12.4 K/cmm 12/15/2014 10:28 [facility] RBC 4.76 3.86 - 5.04 M/cmm 12/15/2014 10:28 [facility] Hemoglobin 13.2 11.6 - 15.2 gm/dl 12/15/2014 10:28 [facility] HCT 40.0 34.9 - 44.4 % 12/15/2014 10:28 [facility] MCV 84 81 - 98 fl 12/15/2014 10:28 [facility] MCH 27.8 26.7 - 33.3 pg 12/15/2014 10:28 [facility] MCHC 33.1 32.1 - 35.9 gm/dl 12/15/2014 10:28 [facility] RDW-CV 13.7 11.7 - 14.6 % 12/15/2014 10:28 [facility] RDW-SD 41.6 37.6 - 50.3 fl 12/15/2014 10:28 [facility] PLT 245 141 - 320 K/cmm 12/15/2014 10:28 [facility] MPV 8.0 7.5 - 11.2 fl 12/15/2014 10:28 EDT [facility] Blood specimen (specimen) BLOOD SPECIMEN / Unknown 12/15/2014 10:04 EDT 12/15/2014 10:21 EDT Abiodun Velez MD HEMATOLOGY & PF4 ORDERABLES Performing Organization Address City/[facility]/ZIP Co de Phone Number [facility] [address] [place] [address] * ELECTROLYTES (12/15/2014 10:04 EDT) Sodium 141 136 - 145 mEq/L 12/15/2014 10:45 EDT [facility] Potassium 4.3 3.5 - 5.0 mEq/L 12/15/2014 10:45 EDT [facility] Chloride 103 96 - 110 mEq/L 12/15/2014 10:45 EDT [facility] CO2 28 24 - 32 mEq/L 12/15/2014 10:45 EDT [facility] Blood specimen (specimen) BLOOD SPECIMEN / Unknown 12/15/2014 10:04 EDT 12/15/2014 10:21 EDT Abiodun Velez MD CHEMISTRY & BLOOD GAS ORDERABLES Performing Organization Address [facility] Co de Phone Number [facility] [address] [place] [address] * CREATININE (12/15/2014 10:04 EDT) Creatinine 0.78 0.52 - 1.04 mg/dl 12/15/2014 10:45 EDT [facility] GFR, Calculated >60 >60 ml/min/1.7 3m2 12/15/2014 10:45 EDT [facility] Blood specimen (specimen) BLOOD SPECIMEN / Unknown 12/15/2014 10:04 EDT 12/15/2014 10:21 EDT Abiodun Velez MD CHEMISTRY & BLOOD GAS ORDERABLES [facility] [address] [place] [address] * BUN (12/15/2014 10:04 EDT) BUN 16 10 - 26 mg/dl 12/15/2014 10:45 EDT [facility] Blood specimen (specimen) BLOOD SPECIMEN / Unknown 12/15/2014 10:04 EDT 12/15/2014 10:21 EDT Abiodun Velez MD CHEMISTRY & BLOOD GAS ORDERABLES [facility] [address] [place] [address] documented in this encounter Visit Diagnoses Not [...] 12/15/2014 documented in this encounter Care Teams Reo Asset Manager Relationship Specialty Start Date End Date Pretty Avery MD [address] [place] [address] PCP - General 06/05/10 documented as of this encounter
--- OUTSIDE RECORDS SUMMARY | 2024-04-20 11:47 | XMS_ITS | Encounter Summary ---
Author Organization [facility] Address [address] [place] [address] Care Team Providers Care Sales Account Manager Name Role Phone Pretty Avery MD Primary Care Provider [phone] Encounter Details Date Type Department Care Team (Latest Contact Info) Description 12/05/2015 12:19 EDT - 12/05/2015 23:59 EDT Hospital Encounter [address] [address] Unknown, Provider, Discharge Disposition: Home or Self [...] Code Departure Means Destination Home or Self Senior Care documented in this encounter Plan of Treatment Not on file documented as of this encounter Visit Diagnoses Not on filedocumented in this encounter Care Teams Sales Account Manager Relationship Specialty Start Date End Date Pretty Avery MD [address] [place] [address] PCP - General 06/05/10 documented as of this encounter
--- OUTSIDE RECORDS SUMMARY | 2024-04-20 11:47 | XMS_ITS | Encounter Summary ---
Author Organization [facility] Address [address] [place] [address] Care Team Providers Care Carbon Cutter Name Role Phone Unavailable Primary Care Provider Unavailabl e Encounter Details Date Type Department Care Team (Late st Contact Info) Description 05/15/2010 Results Only [facility] Laboratory Services - [facility] ([facility]) [address] [place], [place] [phone] Jake Sabillon FNP [address] [place], [place] [phone] Social History Tobacco Use Types Packs/Day Years [...] ? EZEQUIEL THOMAS ? Accession #: ? [id number] ? : ? 1965 (Age: 45) ??F [...] [facility] 05/15/2010 05/17/2010 Jake Sabillon STATE'S ATTORNEY PATHOLOGY ORDERABLES [facility] [address] [place] [address] documented in this encounter Visit Diagnoses Not on filedocumented in this encounter
--- OUTSIDE RECORDS SUMMARY | 2024-04-20 11:47 | XMS_ITS | Encounter Summary ---
Author Organization [facility] Address [address] [place] [address] Care Team Providers Care Pilot Highway Patrol Name Role Phone Unavailable Primary Care Provider Unavailabl e Encounter Details Date Type Department Care Team (Late st Contact Info) Description 12/31/2007 Results Only [facility] Women's Services - [address] [phone] Skip Alcocer MD [address] [place] [address], [address] [place] [address] Social History Tobacco Use Types [...] Results * AMNIOTIC FLUID/CVS ANEUPLOIDY FISH (FOR X,Y,21,13,18)([facility] #[id number]) (12/31/2007 16:34 EDT) Specimen (Note) Chorionic Villi Sample ? [facility] Specimen ID [id number] [facility] Order Date 01 Jan 2008 09:10 U[facility] SO[facility] Method (Note) FISH analysis of 100 nuclei with probes for Xcen (DXZ1), ? Ycen (DYZ3), 13q14 (Rb1), 18cen (D18Z1) and 21q22 ([id number]). ? [facility] Reason For Referral [...] ? FISH results. ? The [employer] and the [place] ? [employer] recommend confirmation of ? abnormal diagnostic results at or ? termination, to the extent possible. ? DISCLAIMER: ??This test was developed and its performance ? characteristics determined by Laboratory Medicine and ? Pathology, [facility]. ??It has not been cleared ? or approved by the U.S. Food and Drug Administration. ??This ? FISH assay does not rule out other chromosome anomalies. ? Woody et al., [place] Clin Proc 73:132-137, 1998. ? [facility] Generator Mechanic (Note) Eduardo Corey MD ? [facility] Report Date 03 Jan 2008 12:44 Performed or Referred by: [facility] Dpt of Lab Med and Path, [address] ?? , [place] [address], Lab Dir: MD URVASHI Morgan III 12/31/2007 16:3 4 EDT 12/31/2007 16:34 EDT Skip Alcocer MD GEN LAB UNIT [facility] ECT ORDERABLES [facility] [address] [place] [address] * [facility]S CHROMOSOME ANALYSIS ([facility] #[id number]) (12/31/2007 16:34 EDT) Specimen (Note) Chorionic Villi Sample ? [facility] Specimen ID [id number] [facility] Order Date 01 Jan [...] ? reported separately. ? [facility] Generator Mechanic (Note) Manuel V N Velagakarlyi PhD ? [facility] Report Date 10 Jan 2008 16:27 Performed or Referred by: [facility] Dpt of Lab Med and Path, [address] , [place] [address], Lab Dir: MD URVASHI Morgan III Haploid Band Resolution 400Unit: bands URVASHI SOOD Total Cells Analyzed 30 [facility] Total Cells Karyotyped 2 [facility] 12/31/2007 16:3 4 EDT 12/31/2007 16:34 EDT Skip Alcoecr MD HEMATOLOGY & PF4 ORDERABLES [facility] [address] [place] [address] documented in this encounter Visit Diagnoses Not on filedocumented in this encounter
--- OUTSIDE RECORDS SUMMARY | 2024-04-20 11:47 | XMS_ITS | Encounter Summary ---
Author Organization [facility] Address [address] [place] [address] Care Team Providers Care Soda Worker Name Role Phone Pretty Avery MD Primary Care Provider [phone] Encounter Details Date Type Department Care Team (Late st Contact Info) Description 12/02/[address] [facility] [address] [place] [address] Jake Sabillon FNP [address] [place], [place] [address] Social History Tobacco Use Types Packs/Day Years [...] ? ANNEEZEQUIEL GREEN ? Accession #: ? [id number] : ? 1965 (Age: 40) ??F ?Collect Date: ? 12/02/2005 Location: ? [facility] ? Receive Date: ? 12/04/2005 Provider: ?JAKE SABILLON COP Copy to: ? Specimen/Source: ?ThinPrep Pap Test, Cervix/Endocervix, processed on Ramen ThinPrep Imaging System, with manual evaluation Last [...] GARCÍAP PATHOLOGY ORDERABLES [facility] [address] [place] [address] documented in this encounter Visit Diagnoses Not on filedocumented in this encounter Care Teams Soda Worker Relationship Specialty Start Date End Date Pretty Avery MD [address] [place] [address] PCP - General 06/05/10 documented as of this encounter
--- OUTSIDE RECORDS SUMMARY | 2024-04-20 11:47 | XMS_ITS | Encounter Summary ---
Author Organization [facility] Address [address] [place] [address] Care Team Providers Care Gynaecological Oncologist Name Role Phone Pretty Avery MD Primary Care Provider [phone] Encounter Details Date Type Department Care Team (Late st Contact Info) Description 12/05/2015 Results Only [facility] [phone] Ezequiel Estrada MD [address] [place] [phone] Social History Tobacco Use Types Packs/Day Years [...] ? EZEQUIEL THOMAS ? Accession #: ? [id number] ? : ? 1965 (Age: 50) ??F [...] May 12/06/2015 1:10 PM End of Report [facility]ORY SERVICES 12/05/2015 10:3 3 EDT 12/06/2015 10:33 EDT Ezequiel Estrada MD PATHOLOGY ORDERABLES [facility]ORY SERVICES [address] [place] [address] documented in this encounter Visit Diagnoses Not on filedocumented in this encounter Care Teams Gynaecological Oncologist Relationship Specialty Start Date End Date Pretty Avery MD [address] [place] [address] PCP - General 06/05/10 documented as of this encounter
--- OUTSIDE RECORDS SUMMARY | 2024-04-20 11:47 | XMS_ITS | Encounter Summary ---
Author Organization [facility] Address [address] [place] [address] Care Team Providers Care Microarray Specialist Name Role Phone Unavailable Primary Care Provider Unavailabl e Encounter Details Date Type Department Care Team (Late st Contact Info) Description 04/30/2010 Results Only [facility] Medicine [address] [address] Pretty Avery MD [address] [place] [phone] Social History Tobacco Use Types Packs/Day Years [...]
--- OUTSIDE RECORDS SUMMARY | 2024-04-20 11:47 | XMS_ITS | Clinical Summary ---
Author Organization [facility] Address [facility] [place] [address] Care Team Providers Care Seasonal Warehouse Associate Name Role Phone None Primary Care Provider [...] Care Team Description 03/27/2024 Telephone Cardiology at [address] [phone] Fidel Yanes PA 03/19/2024 8:10 AM EDT - 03/19/2024 11:59 PM EDT Hospital Encounter Non-Invasive Cardiology Lab [place] [phone] Discharge Disposition: Home 03/19/2024 1:05 AM EDT - 03/19/2024 2:06 AM EDT Surgery [place] [phone] Ramo Roy MD CARDIAC CATHETERIZATION 03/19/2024 12:37 AM EDT - 03/22/2024 12:10 PM EDT Hospital Encounter Heart and Vascular Unit Level 4 [place] A at [place] [phone] Min, MD Santi Vigil Xavier L, MD Ramachandra, Nayana, MD ST elevation myocardial infarction involving left anterior descending (LAD) coronary artery; Chest pain, unspecified type Discharge Disposition: Home 03/18/2024 11:37 PM EDT - 03/18/2024 11:59 PM EDT Hospital [place] [address] Min, Destin Grajeda MD Discharge Disposition: Home 03/18/2024 Telephone Cardiology at [address] [phone] Yusuf Herrera MD 03/18/2024 External [place] [phone] from Last 3 Months Social History Tobacco Use Types Packs/Day Years Used Date Smoking Tobacco: Former Smokeless Tobacco: Never Alcohol Use Standard Drinks/Week Comments Yes 14 (1 standard drink = 0.6 oz pu re alcohol) [facility] Utilities Answer Date Recorded In the past 12 months has [employer], oil, or water [employer] threatened to shut off services in your [...] the past 12 m [facility], were you homeless or living in a alf (including now)? No 03/21/2024 DH IPV Inpatient [...] AM EDT Office Visit Cardiology at [address] [place] [phone] Herlinda Weaver PA [facility] [place] [address] Health Maintenance Due Date Last Done Comments [...] 03/22/2024 5:06 AM EDT BASIC METABOLIC PANEL Routine 03/22/2024 5:06 AM EDT CBC (WITH DIFF) Routine 03/22/2024 5:06 AM EDT MAGNESIUM Routine 03/22/2024 5:06 AM EDT DIFFERENTIAL, AUTOMATED Routine 03/21/20 2:57 AM EDT HEMOGRAM Routine 03/21/2024 2:57 AM EDT BASIC METABOLIC PANEL Routine 03/21/2024 2:57 AM EDT CBC (WITH DIFF) Routine 03/21/2024 2:57 AM EDT MAGNESIUM Routine 03/21/2024 2:57 AM EDT METANEPHRINES, FRACTIONATED FREE, PLASMA Routine 03/21/2024 2:57 AM EDT IRON AND TIBC Routine 03/20/2024 10:38 AM EDT DIFFERENTIAL, AUTOMATED Routine 03/20/20 10:38 AM EDT HEMOGRAM Routine 03/20/2024 10:38 AM EDT CBC (WITH DIFF) Routine 03/20/2024 10:38 AM EDT MAGNESIUM Routine 03/20/2024 10:38 AM EDT BASIC METABOLIC PANEL Routine 03/20/2024 10:38 AM EDT MAGNESIUM STAT [...] THROMBOPLASTIN TIME Routine 03/19/2024 5:25 AM EDT PROTHROMBIN TIME Routine 03/19/2024 5:25 AM EDT COMPREHENSIVE METABOLIC PANEL Routine 03/19/2024 5:25 AM EDT CBC (WITH DIFF) Routine 03/19/2024 5:25 AM EDT EKG 12-LEAD STAT 03/19/2024 2:[address] elevation myocardial infarction involving left anterior descending (LAD) coronary artery DIFFERENTIAL, AUTOMATED Routine 03/19/20 24 2:20 AM EDT HEMOGRAM Routine 03/19/2024 2:20 AM EDT HC TROPONIN T STAT 03/19/2024 2:20 AM EDT HC PARTIAL THROMBOPLASTIN TIME Routine 03/19/2024 2:20 AM EDT PROTHROMBIN TIME Routine 03/19/2024 2:20 AM EDT HEPATIC FUNCTION PANEL Routine 2:20 AM EDT PRO-BRAIN NATRIURETIC PEPTIDE Routine 03/19/2024 2:20 AM EDT PHOSPHORUS Routine 03/19/2024 2:20 AM EDT MAGNESIUM Routine 03/19/2024 2:20 AM EDT BASIC METABOLIC PANEL Routine 03/19/2024 2:20 AM EDT CBC (WITH DIFF) Routine 03/19/2024 2:20 AM EDT POINT OF [...] of5 resultswithin the time period is included. White Blood Cell 11.6(H) 4.0 - 9.5 x10(3)/ L [facility] Red Blood Cell 4.80 4.00 - 5.21 x10(6)/mc L [facility] Hemoglobin 13.5 11.7 - 15.5 g/dL [facility] Hematocrit 40.3 35.7 - 45.8 % [facility] Mean Cell Volume 84.0 82.6 - 94.4 fL [facility] Mean Cell Hemoglobin 28.1 27.1 - 32.0 pg [facility] Mean Cell Hemoglobin Concentration 33.5 31.7 - 35.0 g/dL [facility] Platelet 232 145 - 357 x10(3)/[facility] RDW Standard Deviation 42.2 37.0 - 46.0 fL [facility] RDW coefficient of variation 13.5 11.5 - 14.1 % [facility] Mean Platelet Volume 9.7 7.6 - 12.9 fL [facility] NRBC% auto 0.0 % [facility] NRBC Absolute 0.000 0.000 - 0.000 x10(3)/[facility] Blood 03/22/2024 5:06 AM EDT 03/22/2024 5:12 AM EDT Narrative Resulting Agency Comment Spec In Lab Horace Hancock MD HEMATOLOGY ORDERABLE S [facility] [place] [address] * (ABNORMAL) Differential, Automated (03/22/2024 5:06 AM EDT) Only the most recent of5 resultswithin the time period is included. Neutrophil % 71.6 % [facility] Neutrophil Absolute 8.34(H) 1.70 - 6.10 x10(3)/[facility] Lymph % 17.4 % [facility] Lymphocytes Abs 2.0 0.9 - 3.2 x10(3)/[facility] Monocyte % 8.2 % [facility] Monocyte Abs 1.0(H) 0.3 - 0.9 x10(3)/[facility] Eos % 2.2 % [facility] Eosinophils Abs 0.3 0.0 - 0.4 x10(3)/[facility] Basophil % 0.3 % [facility] Baso Absolute 0.0 0.0 - 0.1 x10(3)/[facility] Immature Gran % 0.30 % [facility] Comment: Immature granulocytes(IG's)percentage and absolute count will include metamyelocytes, myelocytes, and promyelocytes. Blood smears from CBCs yielding IG's will be scanned manually for concordance. If this scan disagrees with the automated IG or if promyelocytes are noted, a manual differential will be performed. Immature Gran Absolute 0.03 0.00 - 0.04 x10(3)/[facility] Blood 03/22/2024 5:06 AM EDT 03/22/2024 5:12 AM EDT Narrative Resulting Agency Comment Spec In Lab Horace Hancock MD HEMATOLOGY ORDERABLE S [facility] [place] [address] * Magnesium (03/22/2024 5:06 AM EDT) Only the most recent of5 resultswithin the time period is included. Magnesium 0.90 0.69 - 1.07 mmol/L [facility] Blood 03/22/2024 5:06 AM EDT 03/22/2024 5:12 AM EDT Narrative Resulting Agency Comment Spec In Lab Destin Ambrosio MD CHEMISTRY ORDERABLES [facility] [place] [address] * Basic Metabolic Panel (non-fasting) (03/22/2024 5:06 AM EDT) Only the most recent of4 resultswithin the time period is included. Glucose 107 65 - 199 mg/dL [facility] Comment:Diabetes: >=200 mg/d L plus symptoms Blood Urea Nitrogen 18 8 - 18 mg/dL [facility] [...] 107 mmol/L [facility] Carbon Dioxide 24 22 - 31 mmol/L [facility] Anion Gap 10 5 - 15 mmol/L [facility] Calcium 9.2 8.5 - 10.5 mg/dL [facility] Est Glomerular Filtration Rate 76 >=60 mL/min/1. 73 m?? [facility] [...] Hancock MD CHEMISTRY ORDERABLES Performing Organization Address [facility] Co de Phone Number [facility] [place] [address] * Metanephrines, Fractionated Free, plasma (03/21/2024 2:57 AM EDT) Normetanephrine, Free (JANUARY) 0.47 <0.90 nmol/L [facility] Comment: Test Performed by: [facility] [place] [address] Package Collector: Chasity Hernandez Ph.D.; CLIA# [id number] Metanephrine, Free (JANUARY) <0.20 <0.50 nmol/L [facility] Comment: ADDITIONAL INFORMATION This test was developed and its performance characteristics determined by [facility] in a manner consistent with CLIA requirements. This test has not been cleared or approved by the U.S. Food and Drug Administration. Test Performed by: [facility] [place] [place] [address] Package Collector: Chasity Hernandez Ph.D.; CLIA# [id number] Blood 03/21/2024 2:57 AM EDT 03/21/2024 11:29 AM EDT Narrative Resulting Agency Comment Spec In Lab Horace Hancock MD LAB SEND OUT ORDERAB LES Performing Organization Address [facility]/ZIP Co de Phone Number [facility] [place] [address] * Iron and TIBC (03/20/2024 10:38 AM EDT) Iron 57 30 - 150 mcg/dL [facility] [...] CHEMISTRY ORDERABLES [facility] [place] [address] * (ABNORMAL) Troponin (03/19/2024 11:01 PM EDT) Only the most recent of5 resultswithin the time period is included. Troponin-T, High Sensitivity 2,406(H) <=14 ng/L [facility] [...] value can be found in the [facility] Laboratory Test Catalog Troponin - [facility] Test Catalog Reference: Fourth Stringer Definition of Myocardial Infarction. Journal of the [place] 2018;72:4119-1347 Blood 03/19/2024 11:0 1 PM EDT 03/19/2024 11:05 PM EDT Narrative Resulting Agency Comment Spec In Lab Franky Mead MD CHEMISTRY ORDERABLE S [facility] [place] [address] * EKG 12 Lead (03/19/2024 8:32 PM EDT) Only the most recent of3 resultswithin the time period is included. Ventricular rate 70 BPM MUSE SYSTEM Atrial Rate 70 BPM MUSE SYSTEM P-R Interval 158 ms MUSE SYSTEM QRS Duration 78 ms MUSE SYSTEM Q-T Interval 470 ms MUSE SYSTEM QTC Calculated (Bezet) 507 ms MUSE SYSTEM Calculated P Edwards 62 degrees MUSE SYSTEM Calculated R Edwards 42 degrees MUSE SYSTEM Calculated T Edwards -158 degrees MUSE SYSTEM INTERPRETATION Normal sinus rhythm Poor R wave progression T wave abnormality, consider lateral ischemia Prolonged QT Abnormal ECG When compared with ECG of 19-MAR-2024 17:27, No significant change was found Confirmed by MD Hebert, Destin ([id number]) on 03/23/2024 8:10:58 AM MUSE SYSTEM 03/19/2024 8:32 PM EDT 03/23/2024 8:10 AM EDT Franky Mead MD ECG ORDERABLES Performing Organization Address [facility] Co de Phone Number MUSE SYSTEM * ECHO COMPLETE W CONTRAST (03/19/2024 10:53 AM EDT) Anatomical Region Laterality Modality Cardiac Other 03/19/2024 9:03 AM EDT Narrative 03/19/2024 12:12 PM EDT [address] [place] [address] ? Echocardiogram Report Name: ISA RO ?Study Date: 03/19/2024 09:03 AMBP: 129/68 mmHg ? Patient Location: : 1965 ? Height: 158 cm ? Account: [id number] Age: 59 yrs ? Weight: 57 kg Gender: Female ?BSA: 1.6 m2 Ordering Physician: GANESH NGUYEN Referring Physician: GANESH NGUYEN Performed By: PEREZ Carlos Reason For Study: STEMI involving LAD Exam Location: [facility]. Interpretation Summary Normal left ventricle size with mildly reduced LV function. LV ejection fraction 49%. LAD territory wall motion abnormality, predominantly involving the LV apex. No LV thrombus visualized with echo contrast. Normal right ventricle. No significant valvular abnormalities. Compared with prior echo dated 08/28/23, LV function has now decreased and new wall motion abnormalities. Procedure Complete-[id number]. Image enhancement Definity was used for left [...] Note Destin Ambrosio MD - 03/19/2024 [address] [place] [address] Echocardiogram Report Name: ISA RO Study Date: 409:03 AMBP: 129/68 mmHg Patient Location: : 1965 Height: 158 cm Account: [id number] Age: 59 yrs Weight: 57 kg Gender: Female BSA: 1.6 m2 Ordering Physician: GANESH NGUYEN Referring Physician: GANESH NGUYEN Performed By: PEREZ Carlos Reason For Study: STEMI involving LAD Exam Location: [facility]. Interpretation Summary Normal left ventricle size with mildly reduced LV function. LV ejectionfraction 49%. LAD territory wall motion abnormality, predominantly involving the LVapex. No LV thrombus visualized with echo contrast. Normal right ventricle. No significant valvular abnormalities. Compared with prior echo dated 08/28/23, LV function has now decreased andnew wall motion abnormalities. Procedure Complete-[id number]. Image enhancement Definity was used for left [...] Chest One View (03/19/2024 8:37 AM EDT) [employer] WORKSTATION ID [id number] RAD Anatomical Region Laterality Modality Chest N/A [...] who have questions please contact the health animal care supervisor that requested your imaging first. ? Electronically signed by: Isa Whitley MD, [facility] ??([phone]), at 03/19/2024 10:09 AM Narrative 03/19/2024 10:09 [...] patients who have questions please contactthe health animal care supervisor that requested your imaging first. Electronically signed by: Isa Whitley MD, [facility]([phone]), at 03/19/2024 10:09 AM Delores Jett MD IMG DX ORDERABLES * APTT (03/19/2024 5:25 AM EDT) Only the most recent of2 resultswithin the time period is included. [facility] Signature Partial Thromboplastin Time 29 25 - 37 sec [facility] [...] MD HEMATOLOGY ORDERA BLES Performing Organization Address [facility] de Phone Number [facility] [place] [address] * Prothrombin Time (03/19/2024 5:25 AM EDT) Only the most recent of2 resultswithin the time period is included. [facility] Prothrombin Time 10.9 9.4 - 12.5 sec [facility] International Normalization Ratio 1.0 [facility] Comment: [...] MD HEMATOLOGY ORDERA BLES Performing Organization Address [facility] Co de Phone Number [facility] [place] [address] * Hemoglobin A1c (03/19/2024 5:25 AM EDT) Pathologist [facility] Hemoglobin A1c 5.6 4.3 - 5.6 % [facility] [...] Mellitus, Diabetes Care 2013; 36: Suppl. 1, X05-48 Estimated Average Glucose 114 mg/dL [facility] Blood Venous Draw / Unknown 03/19/2024 5:25 AM EDT 03/19/2024 3:52 PM EDT Narrative Resulting Agency Comment Spec In Lab Horace Hancock MD CHEMISTRY ORDERABLES [facility] [place] [address] * Lipid Panel (Reflex Direct LDL) (03/19/2024 5:25 AM EDT) Cholesterol, Total 324 mg/dL [facility] Comment: Desirable: ? <200 mg/dL Borderline High: 200-239 mg/dL Higher: ?>ih=512 mg/dL Triglyceride 200 mg/dL [facility] Comment: Normal: ?<150 mg/dL Borderline High: 150-199 mg/dL High: ?200-499 mg/dL Very High: ? >ip=024 mg/dL HDL Cholesterol 68 mg/dL [facility] Comment: Females: High Risk: <50 mg/dL Males: High Risk: <40 mg/dL LDL Cholesterol 216 mg/dL [facility] Comment: Desirable: ? <100 mg/dL Above Desirable: 100-129 mg/dL Borderline High: 130-159 mg/dL High: ?160-189 mg/dL Very High: ? >no=098 mg/dL Lipid Interpretation See Note [facility] [...] ACC/AHA Guidelines (most recently Jw et al. [facility] 06/17/22): For individuals with atherosclerotic cardiovascular disease (ASCVD)or LDL >rg=780 mg/dL, use a high-intensity statin (40-80 mg [...] ORDERAB LES [facility] [place] [address] * (ABNORMAL) Comprehensive metabolic panel (non-fasting) (03/19/2024 5:25 AM EDT) Glucose 181 65 - 199 mg/dL [facility] Comment:Diabetes: >=200 mg/d L plus symptoms Blood Urea Nitrogen 14 8 - 18 mg/dL [facility] [...] 107 mmol/L [facility] Carbon Dioxide 22 22 - 31 mmol/L [facility] Anion Gap 15 5 - 15 mmol/L [facility] Calcium 8.7 8.5 - 10.5 mg/dL [facility] Protein, Total 7.2 6.1 - 8.0 g/dL [facility] Albumin 4.5 3.2 - 5.2 g/dL [facility] Aspartate Aminotransferase 95(H) 0 - 30 unit/L [facility] Comment:result rechecked-bz Alanine Aminotransferase 31(H) 0 - 30 unit/L [facility] Alkaline Phosphatase 70 35 - 105 unit/L [facility] Bilirubin, Total 0.5 0.2 - 1.3 mg/dL [facility] Est Glomerular Filtration Rate 72 >=60 mL/min/1. 73 m?? [facility] [...] MD CHEMISTRY ORDERAB LES Performing Organization Address City/[facility]/ZIP Co de Phone Number [facility] [place] [address] * Phosphorus (03/19/2024 2:20 AM EDT) [facility] Signature Phosphorus 3.8 2.5 - 4.5 mg/dL [facility] Blood 03/19/2024 2:20 AM EDT 03/19/2024 2:59 AM EDT Narrative Resulting Agency Comment Spec In Lab Ganesh Nguyen MD CHEMISTRY ORDERAB LES Performing Organization Address [facility]/ZIP Co de Phone Number [facility] [place] [address] * (ABNORMAL) pro-Brain Natriuretic Peptide (03/19/2024 2:20 AM EDT) [facility] Signature NT-proBNP 529(H) <=124 pg/mL [facility] Blood 03/19/2024 2:20 AM EDT 03/19/2024 2:59 AM EDT Narrative Resulting Agency Comment Spec In Lab Ganesh Nguyen MD CHEMISTRY ORDERAB LES Performing Organization Address [facility] Co de Phone Number [facility] [place] [address] * (ABNORMAL) Hepatic Function Panel (03/19/2024 2:20 AM EDT) Protein, Total 6.7 6.1 - 8.0 g/dL [facility] Albumin 4.3 3.2 - 5.2 g/dL [facility] Aspartate Aminotransferase 49(H) 0 - 30 unit/L [facility] Alanine Aminotransferase 26 0 - 30 unit/L [facility] Alkaline Phosphatase 67 35 - 105 unit/L [facility] Bilirubin, Total 0.4 0.2 - 1.3 mg/dL [facility] Bilirubin, Direct 0.1 0.0 - 0.3 mg/dL [facility] Blood 03/19/2024 2:20 AM EDT 03/19/2024 2:59 AM EDT Narrative Resulting Agency Comment Spec In Lab Ganesh Nguyen MD CHEMISTRY ORDERAB LES [facility] [place] [address] * (ABNORMAL) Point of Care Blood Gas Historical (03/19/2024 1:41 AM EDT) Only the most recent of2 resultswithin the time period is included. pH, POC 7.28(Criti lewis) 7.35 - 7.45 [facility] pCO2, POC 40 35 - 45 mmHg [facility] pO2, POC 84(L) 85 - 104 mmHg [facility] Base Excess, POC -8.0(L) -3.0 - 3.0 mmol/L [facility] Bicarbonate, POC 18.6(L) 20.0 - 26.0 mmol/L [facility] Carbon Dioxide, POC 20(L) 22 - 31 mmol/L [facility] Sodium, POC 134(L) 135 - 145 mmol/L [facility] POC Potassium 3.4(L) 3.5 - 5.0 mmol/L [facility] Ionized Calcium, POC 1.09(L) 1.15 - 1.33 mmol/L [facility] POC Hematocrit 38.0 34.0 - 45.0 % [facility] POC Calc Hgb 12.9 11.2 - 15.7 g/dL [facility] Blood 03/19/2024 1:41 AM EDT 03/19/2024 1:41 AM EDT Kathryn Walker MD CHEMISTRY ORDERABL ES [facility] [place] [address] * CARDIAC CATHETERIZATION (03/19/2024 1:36 AM EDT) Anatomical Region Laterality Modality Other Narrative 03/19/2024 7:19 AM EDT ?[facility] ? Cardiac Catheterization/Intervention Report ? Patient Name: Isa Ro. ? Procedure Date: 03/19/2024 ? A #: [id number] ? Primary Physician: Ramo Roy ? Case #: [id number] ? File Name: [id number] ? Catheterization Order Number: [id number] ? [facility] ? Final Report [place], [place] ? Patient Name: ? Isa A. Warnaar ? ID#: ?[id number] ? : ?1965 ? Procedure Date: ? March 19, 2024 ? Case #: ? [id number] ? Room: ? 6 ? Case Physician: [...] procedure was Emergent. The indication for ?the phlebotomist medical lab assistant visit is ACS less than or [...] ?3.5 guiding catheter and a 3.5 Fr [facility] 20 Mhz using auto 1 ?mm/sec pullback. [...] A premounted 3.00 x 08 mm Alberto [place] (JAHAIRA) was deployed ? with a maximum inflation pressure of 12 atmospheres. ? Another stent insertion was accomplished through a 6 Fr. EBU ? 3.5 guide. ??A premounted 2.00 x 08 mm Rhodell [place] (JAHAIRA) was ? deployed. ? The final [...] dose administered prior to arrival in the phlebotomist medical lab assistant. ?Recommended anti-platelet/anti-thrombotic regimen: ?Start aspirin 81 mg daily now and continue for indefinitely. ?Start clopidogrel 75 mg daily now and continue for 12 months then stop. ?These recommendations are made at the time of the intervention. Patient ?and provider preferences or a changing clinical situation may require ?modification of this regimen. Consult [facility] Interventional Cardiology for ?questions. ?The 1 year [...] against any medical treatment. Consult ?http://tools.acc.org/DAPTriskapp/#!/content/calculator/ or [facility] ?Interventional Cardiology for questions ? Conclusions: ?* [...] nurse. ??Case time = 00:32. ?Dr. Ramo S Kirill, M.D. performed the coronary angiography, left heart ?catheterization, IVUS # coronary, stent insertion-coronary and ABG. ? Ramo Roy M.D. ? Electronically Signed by: Ramo Roy M.D. ? Report Finalized: 03/19/2024 ??01:56 ? Report Last Ammended: 03/21/2024 ??09:37 ? Procedure Note Ramo Roy MD - 03/21/2024 [facility] Cardiac Catheterization/Intervention Report Patient Name: Isa Ro Procedure Date: 03/19/2024 A #: [id number] Primary Physician: Ramo Roy Case #: [id number] File Name: [id number] Catheterization Order Number: [id number] [facility] FinalReport [place], [place] Patient Name: Isa Ro ID#:[id number] :1965 Procedure Date: March 19, 2024 Case [...] patientwas designated as ASA Class IV. The [facility] clinical frailty scale is 3: Managing Well. Diagnostic Tests: Prior Coronary Angiography: Prior coronary angiography was performed on 12/15/2014. Electrocardiography: EKG was assessed by ECG. EKG was Abnormal. EKG showed STDeviation >= 0.5 mm and other abnormality. Medications Prior to Procedure: Aspirin. Indications for Diagnostic Cath: The priority of the diagnostic procedure was Emergent. Theindication for the phlebotomist medical lab assistant visit is ACS less than or [...] 3.5 guiding catheter and a 3.5 Fr [facility] 20 Mhz usingauto 1 mm/sec pullback. Imaging [...] The priority for the procedure was Emergent.The [facility] indication for the procedure was [...] The lesion was predilated with a 2.50mm [id number] MM balloon with a maximum inflation pressure of 14atmospheres. A premounted 3.00 x 08 mm Rhodell [place] (JAHAIRA) wasdeployed with a maximum inflation pressure of 12 atmospheres. Another stent insertion was accomplished through a 6 Fr.EBU 3.5 guide. A premounted 2.00 x 08 mm Alberto [place] (JAHAIRA)was deployed. The final outcome was defined [...] dose administered prior to arrival in the phlebotomist medical lab assistant. Recommended anti-platelet/anti-thrombotic regimen: Start aspirin 81 mg daily now and continue for indefinitely. Start clopidogrel 75 mg daily now and continue for 12 months thenstop. These recommendations are made at the time of the intervention.Patient and provider preferences or a changing clinical situation mayrequire modification of this regimen. Consult [facility] Interventional Cardiologyfor questions. The 1 year bleeding [...] or against any medical treatment.Consult http://tools.acc.org/DAPTriskapp/#!/content/calculator/ or [facility] Interventional Cardiology for questions Conclusions: * One [...] Documents on File Type Date Recorded Patient Commander Internal Affairs Expl anation Advance Directives and Livin g Will 03/21/2024 4:09 PM * Attempt Cardiopulmonary Resuscitation - Inpatient (Latest Code Status on File) Date Activated Date Inactivated Comments 03/19/2024 1:09 AM 03/22/2024 2:16 PM Question Answer Comments Code Status decision made by: Patient Content of discussion: discussed code st atus and need for CPR/shocks/intubation in periprocedural period Care Teams Seasonal Warehouse Associate Relationship Specialty Start Date End Date None None PCP - General 03/19/24
--- OUTSIDE RECORDS SUMMARY | 2024-04-20 11:47 | XMS_ITS | Encounter Summary ---
Author Organization [facility] Address [address] [place] [address] Care Team Providers Care Topographical Engineer Name Role Phone Unavailable Primary Care Provider Unavailabl e Encounter Details Date Type Department Care Team (Late st Contact Info) Description 04/29/2010 Results Only [address] [address] Pretty Avery MD [address] [place] [id number] Social History Tobacco Use Types Packs/Day Years [...] ? EZEQUIEL THOMAS ? Accession #: ? [id number] ? : ? 1965 (Age: 45) ??F [...] Avery MD PATHOLOGY ORDERABLES URVASHI SOOD [address] [place] [address] documented in this encounter Visit Diagnoses Not on filedocumented in this encounter
--- OUTSIDE RECORDS SUMMARY | 2024-04-20 11:48 | XMS_ITS | Encounter Summary ---
Author Organization [facility] Address [facility] [place] [address] Care Team Providers Care Service Desk Specialist Name Role Phone Pretty Avery MD Primary Care Provider [phone] Reason for Visit * Reason Comments Basal Cell Carcinoma * Consultation (Routine) - Closed Specialty Diagnoses / Procedures Referred By Contac t Referred To Contact Dermatology Diagnoses skin lesion lower back, basel cell ca Isa Estrada MD [address] [place] [address] [facility] Dermatology [address] [place] [address] Referral ID Status Reason Start Date Expiration Date V isits Requested Visits Authorized [id number] Closed Evaluate and [facility] 12/17/2015 12/16/2016 1 1 Encounter Details Date Type Department Care Team (Late st Contact Info) Description 12/19/2015 2:30 PM EDT Office Visit Dermatology at [facility] [address] [place] [address] Lisa Candelario MD [facility] [place] [address] Superficial basal cell carcinoma; Seborrheic [...] or concerns, please call the office at [phone]. If it is after 5PM, or a holiday or weekend, please call [phone] and ask for the Customer Success Manager on-call. documented in this encounter Progress Notes [...] encounter. Lisa Candelario MD Section of Dermatology [facility] documented in this encounter Plan of Treatment Upcoming Encounters Date Type Department Care Team (Late st Contact Info) Description 05/09/2024 10:40 AM EDT Office Visit Cardiology at [address] [address] Herlinda Weaver PA [facility] [address] documented as of this encounter Visit Diagnoses Diagnosis Superficial basal cell carcinoma Basal cell carcinoma of skin, site unspecified Seborrheic keratosis Other seborrheic keratosis documented in this encounter Care Teams Service Desk Specialist Relationship Specialty Start Date End Date Pretty Avery MD [address] [place] [address] PCP - General 08/06/10 03/18/24 documented as of this encounter
--- OUTSIDE RECORDS SUMMARY | 2024-04-20 11:48 | XMS_ITS | Encounter Summary ---
Author Organization [facility] [address] Care Team Providers Care Cotton Classer Name Role Phone Pretty Avery MD Primary Care Provider [phone] Reason for Visit * Reason Comments Skin Check Encounter Details Date Type Department Care Team (Late st Contact Info) Description 02/04/2017 1:15 PM EDT Office Visit Dermatology at [facility] [address] [place] [address] Lisa Candelario MD [facility] [address] [place] [place] [address] Seborrheic keratosis; Multiple benign nevi; History of [...] encounter. Lisa Candelario MD Section of Dermatology [facility] documented in this encounter Plan of Treatment Upcoming Encounters Date Type Department Care Team (Late st Contact Info) Description 05/09/2024 10:40 AM EDT Office Visit Cardiology at [address] [address] Herlinda Weaver PA [facility] [place] [address] documented as of this encounter Visit Diagnoses Diagnosis Seborrheic keratosis Other seborrheic keratosis Multiple benign nevi Benign neoplasm of skin, site unspecified History of basal cell cancer Personal history of other malignant neoplasm of skin documented in this encounter Care Teams Cotton Classer Relationship Specialty Start Date End Date Pretty Avery MD [address] [place] [id number] PCP - General 08/06/10 03/18/24 documented as of this encounter
--- OUTSIDE RECORDS SUMMARY | 2024-04-20 11:48 | XMS_ITS | Encounter Summary ---
Author Organization [facility] [place] [address] Care Team Providers Care Medical Office Technician Name Role Phone Pretty Avery MD Primary Care Provider [phone] Encounter Details Date Type Department Care Team (Late st Contact Info) Description 12/08/2023 10:30 AM EDT Office Visit Dermatology at [facility] [address] [place] [address] Aylin Cole MD [facility] [place] [address] Skin cancer screening; Inflamed seborrheic keratosis; History [...] for FBSE otherwise PRN []Note routed to predatory animal hunter [x]Recall placed in scheduling system []Appointment scheduled at checkout Scribe attestation: Juliet Angulo [facility] has performed the documentation for this encounter in the presence of and acting as a scribe for Aylin Cole MD. I performed the above scribed service and agree with the accuracy of the documentation in this encounter. Reviewed and signed by: Aylin Cole MD Dermatology [facility] documented in this encounter Plan of Treatment Upcoming Encounters Date Type Department Care Team (Late st Contact Info) Description 05/09/2024 10:40 AM EDT Office Visit Cardiology at [address] [address] Herlinda Weaver PA [facility] [place] [address] documented as of this encounter Visit Diagnoses Diagnosis Skin cancer screening Screening for malignant neoplasm of the skin Inflamed seborrheic keratosis History of basal cell carcinoma (BCC) Seborrheic dermatitis Seborrheic dermatitis, unspecified Seborrheic keratoses Multiple benign nevi of upper extremity, lower extremity, and trunk Lentigines Other dyschromia Garcia angioma Nevus, non-neoplastic documented in this encounter Care Teams Medical Office Technician Relationship Specialty Start Date End Date Pretty Avery MD [address] [place] [address] PCP - General 08/06/10 03/18/24 documented as of this encounter
--- OUTSIDE RECORDS SUMMARY | 2024-04-20 11:48 | XMS_ITS | Encounter Summary ---
Author Organization [facility] [place] [address] Care Team Providers Care Machine Rug Cleaner Name Role Phone Pretty Avery MD Primary Care Provider [phone] Reason for Visit * Reason Comments Skin Check hx of SCC Encounter Details Date Type Department Care Team (Late st Contact Info) Description 01/14/2019 1:30 PM EDT Office Visit Dermatology at [facility] [address] [place] [address] Patrizia Moralez MD [facility] [place] [address] Multiple benign nevi; Lentigines; Seborrheic keratosis; History [...] History: Left lower back, sBCC, ED&C on 66-81-70[facility] Seborrheic keratoses Family History: Melanoma: None Father [...] by: Patrizia Moralez MD Resident in Dermatology [facility] Patient seen and evaluated with staff cut out worker: Lisa Candelario MD Section of Dermatology [facility] * Lisa Candelario MD - 01/14/2019 [...] 10:40 AM EDT Office Visit Cardiology at [address] [address] Herlinda Weaver PA [facility] [place] [address] documented as of this encounter Visit Diagnoses Diagnosis Multiple benign nevi Benign neoplasm of skin, site unspecified Lentigines Other dyschromia Seborrheic keratosis Other seborrheic keratosis History of basal cell cancer Personal history of other malignant neoplasm of skin Garcia angioma Nevus, non-neoplastic Skin cancer screening Screening for malignant neoplasm of the skin Arthropod bite, initial encounter documented in this encounter Care Teams Machine Rug Cleaner Relationship Specialty Start Date End Date Pretty Avery MD [address] [place] [address] PCP - General 08/06/10 03/18/24 documented as of this encounter
--- OUTSIDE RECORDS SUMMARY | 2024-04-20 11:48 | XMS_ITS | Encounter Summary ---
Author Organization [facility] [place] [address] Care Team Providers Care Supervisor Body Assembly Name Role Phone Pretty Avery MD Primary Care Provider [phone] Encounter Details Date Type Department Care Team [...] AM EDT Office Visit Cardiology at [address] [address] Herlinda Weaver PA [facility] [address] documented as of this encounter Visit Diagnoses Not on filedocumented in this encounter Care Teams Supervisor Body Assembly Relationship Specialty Start Date End Date Pretty Avery MD [address] [place] [address] PCP - General 08/06/10 03/18/24 documented as of this encounter
--- OUTSIDE RECORDS SUMMARY | 2024-04-20 11:48 | XMS_ITS | Encounter Summary ---
[facility] [place] [address] Care Team Providers Care Tutor Coordinator Name Role Phone None Primary Care Provider Unavailabl e Encounter Details Date Type Department Care Team (Late st Contact Info) Description 03/18/2024 Telephone Cardiology at [address] [address] Yusuf Herrera MD [facility] [place] [address] Social History Tobacco Use Types Packs/Day Years Used Date Smoking Tobacco: Former Smokeless Tobacco: Never [facility] Inpatient Questions Answer Date Recorded Does [...] 03/19/24 Initial Contact Time: 2209 Patient Location: [facility] Presenting Symptoms per OSH: 59 year old female, history of CAD c/b NSTEMI (see below), hypertension, hyperlipidemia, who was resting at home at 20:30 when she developed substernal chest pressure radiating to right arm which wasvery severe and reminiscent of prior NM. Associated with diaphoresis. No syncope, SOB, palpitations, [...] relief, but was still having CP. 03/30/14 [facility] Left main: Free of angiographically significant disease. 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 I have not personally interviewed or examined this patient. Yusuf Herrera MD Health Care Assistant documented in this encounter Plan of Treatment Upcoming Encounters Date Type Department Care Team (Late st Contact Info) Description 05/09/2024 10:40 AM EDT Office Visit Cardiology at [address] [address] Herlinda Weaver PA [facility] [place] [address] documented as of this encounter Visit Diagnoses Not on filedocumented in this encounter Care Teams Tutor Coordinator Relationship Specialty Start Date End Date None None PCP - General 03/19/24 documented as of this encounter
--- OUTSIDE RECORDS SUMMARY | 2024-04-20 11:48 | XMS_ITS | Encounter Summary ---
Author Organization [facility] Address [facility] [place] [address] Care Team Providers Care Thrill Performer Name Role Phone Pretty Avery MD Primary Care Provider [phone] Encounter Details Date Type Department Care Team (Latest Contact Info) Description 03/18/2024 11:37 PM EDT - 03/18/2024 11:59 PM EDT Hospital En[place] [phone] Destin Ambrosio MD [facility] [place] [address] Discharge Disposition: Home Social History Tobacco Use [...] AM EDT Office Visit Cardiology at [address] [address] Herlinda Weaver PA [facility] [place] [address] documented as of this encounter Visit Diagnoses Not on filedocumented in this encounter Care Teams Thrill Performer Relationship Specialty Start Date End Date Pretty Avery MD [address] [place] [address] PCP - General 08/06/10 03/18/24 documented as of this encounter
--- OUTSIDE RECORDS SUMMARY | 2024-04-20 11:48 | XMS_ITS | Encounter Summary ---
Author Organization [facility] [place] [address] Care Team Providers Care Garnett Room Worker Name Role Phone None Primary Care Provider Unavailabl e Reason for Visit * Auth/Cert (Routine) Specialty Diagnoses / Procedures Referred By Contac t Referred To Contact Diagnoses Acute ST elevation myocardial infarction (STEMI) due to occlusion of left anterior descending (LAD) coronary artery stemi Procedures EMERGENCY IPI Destin Ambrosio MD [facility] [place] [address] [facility] Referral ID Status Reason Start Date Expiration Date Visits Re quested Visits Authorized [id number] 1 1 Encounter Details Date Type Department Care Team (Late st Contact Info) Description 03/19/2024 1:05 AM EDT - 03/19/2024 2:06 [place] [address] Ramo Roy MD [facility] [place] [address] CARDIAC CATHETERIZATION Social History Tobacco Use Types Packs/Day Years Used Date Smoking Tobacco: Former Smokeless Tobacco: Never Alcohol Use Standard Drinks/Week Comments Yes 14 (1 standard drink = 0.6 oz pu re alcohol) [facility] Inpatient Questions Answer Date Recorded Does Anyone [...] Isa Ro Patient Age: 59 y.o. Language: Tanzanian Race: White Ethnicity: Not nor Admit date: [...] and hypercapnic respiratory failure in the laboratory inspector, potentially also due to sedation. Patient briefly [...] LVEF [ ] f/u [facility] cardiology scheduled. [facility] cardiology referral sent Inpatient Provider Contact Information: Kathryn Walker MD [phone] For questions regarding this document or issues relating to this hospitalization on the Medical Service, please contact your inpatient physician through the [facility] Business Management Associate . Issues afterhours and on weekends will [...] 03/19/2024 8:37 AM) Result Value WORKSTATION ID [id number] Narrative EXAMINATION: XR CHEST ONE VIEW CLINICAL [...] have questions please contact the health manager medicare marketing that requested your imaging first. Cardiac Catheterization (Exam End: 03/19/2024 1:36 AM) Narrative [facility] Cardiac Catheterization/Intervention Report Patient Name: Isa Ro Procedure Date: 03/19/2024 A #: [id number] Primary Physician: Ramo Roy Case #: [id number] File Name: [id number] Catheterization Order Number: [id number] [facility] It Trainee [facility] Final Report [place], [place] Patient Name: Isa Ro ID#: [id number] : 1965 Procedure Date: March 19, 2024 [...] was designated as ASA Class IV. The [facility] clinical frailty scale is 3: Managing Well. Diagnostic Tests: Prior Coronary Angiography: Prior coronary angiography was performed on 12/15/2014. Electrocardiography: EKG was assessed by ECG. EKG was Abnormal. EKG showed ST Deviation >= 0.5 mm and other abnormality. Medications Prior to Procedure: Aspirin. Indications for Diagnostic Cath: The priority of the diagnostic procedure was Emergent. The indication for the laboratory inspector visit is ACS less than or equal [...] 3.5 guiding catheter and a 3.5 Fr [place] [facility] 20 Mhz using auto 1 mm/sec pullback. [...] priority for the procedure was Emergent. The [facility] indication for the procedure was STEMI-Immediate PCI [...] A premounted 3.00 x 08 mm Alberto [place] (JAHAIRA) was deployed with a maximum inflation pressure of 12 atmospheres. Another stent insertion was accomplished through a 6 Fr. EBU 3.5 guide. A premounted 2.00 x 08 mm Causey [place] (JAHAIRA) was deployed. The final outcome was [...] administered prior to arrival in the laboratory inspector. Recommended anti-platelet/anti-thrombotic regimen: Start aspirin 81 mg daily now and continue for indefinitely. Start clopidogrel 75 mg daily now and continue for 12 months then stop. These recommendations are made at the time of the intervention. Patient and provider preferences or a changing clinical situation may require modification of this regimen. Consult [facility] Interventional Cardiology for questions. The 1 year [...] treatment. Consult http://tools.acc.org/DAPTriskapp/#!/content/calculator/ or [facility] Interventional Cardiology for questions Conclusions: * One [...] decreased and new wall motion abnormalities. Procedure Complete-31626. Image enhancement Definity was used for left [...] LAD in 03/2014, HLD, who presented to [facility] with chest pain. She developed chest pain around 2100 on 03/18 which prompted her to call EMS. She was given 325mg of aspirin and nitroglycerin. On arrival to [facility], she was found to have an EKG suggestive of anterior STEMI for which she was given half dose TNKfor systemic lysis prior to speaking with Dr. Herrera, on-call theatre arts professor at [facility]. She was subsequently transferred directly to the [facility] laboratory inspector where coronary angiography revealed a 100% occluded [...] away. Stay on the phone. The emergency bus operator will tell you what to do. [...] of 8AM-5PM please call the Cardiology Clinic [phone] to speak with a nurse. All other hours please call the Hospital Business Management Associate [phone] and ask to speak to the cardiovascular hospitalist on-call. Return to work: One week Follow up Appointments: Doctor Where Phone # Date Time PCP MELECIO Polanco [address] [place] [address] 869 04/04/24 7:55 AM Metal Bumper Herlinda Weaver PA-C [facility] Cardiology 4A Clinic [phone] 05/09/24 10:40 AM (pleasearrive by 10:20 AM) *A referral has also been placed to [facility] cardiology, though you will need to follow-up with them regarding scheduling appointments at [phone] General Instructions None Future Appointments and Orders Future Appointments and Orders Future Appointments Provider Department Dept Phone 05/09/2024 10:40 AM Herlinda Weaver PA Cardiology at [facility] Arrive at: General Surgery Physician Assistant Area [phone] Future Orders Complete By Expires Referral to Cardiac Rehab [[id number] Custom] As directed Process Instructions: If no progress note charted, please enter Clinical details in comments. Scheduling Instructions: Questions: My question or request is: s/p STEMI- cardiac rehab at [facility] Referral to Cardiology [REF12 Custom] As directed Process Instructions: If no progress note charted, please enter Clinical details in comments. Scheduling Instructions: Questions: My question or request is: s/p STEMI Discharge References/Attachments None Greater than 30 minutes was spent on this discharge including documentation, laux-lb-sjip time withthe patient, patient education, order tracer, coordination with pharmacy and other patient care. [...] away. Stay on the phone. The emergency bus operator will tell you what to do. [...] cardiac rehab has also been placed to [facility]. Call your doctor if: Chest pain, dyspnea, pain or swelling in legs occurs, or for weight gain of 2 pounds overnight or 5pounds in 5 days. If you have non-emergent questions, prior to your follow-up visit call: Thursday-Thursday between the hours of 8AM-5PM please call the Cardiology Clinic [phone] to speak with a nurse. All other hours please call the Hospital Business Management Associate [phone] and ask to speak to the cardiovascular hospitalist on-call. Return to work: One week Follow up Appointments: Doctor Where Phone # Date Time PCP MELECIO Polanco [address] [place] [address] 04/04/24 7:55 AM Metal Bumper Herlinda Weaver PA-C [facility] Cardiology 4A Clinic [phone] 05/09/24 10:40 AM (pleasearrive by 10:20 AM) *A referral has also been placed to [facility] cardiology, though you will need to follow-up with them regarding scheduling appointments at [phone] documented in this encounter Medications at Time [...] agreed to participate in cardiac rehab at [facility] following discharge Review of Systems: Review of [...] have resulted in hypoxemia in the laboratory inspector. She was also a bit hypercapnic which [...] pt re: Losartan/GDMT consideration -Cardiac Rehab at [facility] following discharge -Telemonitoring x72 hours -Plan for discharge tomorrow -Cardiology appointment scheduled 05/09/2024 at 10:40 AM t [facility] #Significant HLD -LDL 324 -Atorvastatin 80mg daily [...] have resulted in hypoxemia in the laboratory inspector. 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 I asked [...] 03/19/2024 2:50 AM EDT [facility] TeleICU Initial Assessment Note I established audio/visual [...] => BiPAP started Following procedure, transferred to [facility] - able to be weaned to [...] [facility]: ED via EMS Date and Time of [...] Not contraindicated Plan STEMI Alert called: Yes It Trainee Activated by: State Comptroller Initial Disposition: Admit It Trainee documented in this encounter H&P Notes * [...] to LAD in 03/2014, HLD,who presented to [facility] with chest pain. She developed chest pain around 2100 on 03/18 which prompted her to call EMS. She was given 325mg of aspirin and nitroglycerin. On arrival to [facility], she was found to have an EKG suggestive of anterior STEMI for which she was given half dose TNK for systemic lysis prior to speaking with Dr. Herrera, on-call theatre arts professor at [facility]. She was subsequently transferred directly to the [facility] laboratory inspector where coronary angiography revealed a 100% occluded [...] have resulted in hypoxemia in the laboratory inspector. She was also a bit hypercapnic which [...] Cardiopulmonary Resuscitation - Inpatient Ganesh Nguyen MD State Comptroller [id number] documented in this encounter Miscellaneous Notes [...] Contact information for follow-up Cardiac Rehab, [facility] [address] [facility] [address] Cardiology, [facility] [address] [facility] [address] Transportation: family or friend will provide Functional [...] N/A ; Prescription Coverage: Yes Preferred Pharmacy: [facility] [address] [facility] [address] [place], [place] [address]way [address] [facility] [address] [id number] - [place], [place] - [address] [place] [address] [facility] [address] [facility] [address] [facility] - [place], [place] - [address] [facility] [address] [place] [address] Advance Care Planning: Attempt Cardiopulmonary Resuscitation - Inpatient <no information> -Advanced Directive: No, need to discuss (RS referral sent for AD discussion) Current Functional Ability: Assistive Person Functional Status Prior to Admission: Independent Home Environment: Others in the home: child(lucian), minor (lives with her 15yo son). Current Living Arrangements: home/apartment/condo. Accessibility Concerns:house with 3 floors and 2 [address]. Current DME: none [address] [facility] [address] Social & Family Supports: All names listed below confirmed with patient as current and correct Extended Emergency Contact Information [facility] [place] Relation: Mother [...] to for AD discussion today. Registered Nurse Clipper Machine / Resident Care Assistant will continue to follow patient???s progress [...] in an outpatient cardiac rehabilitation program at [facility] was discussed. Patient agrees to a referral [...] Operative Note Patient Name: Isa Ro : [id number] MR#: [id number] Case Date: 03/19/2024 Surgeon: Surgeons and Role: [...] AM EDT Office Visit Cardiology at [address] [address] Herlinda Weaver PA [facility] [place] [address] Scheduled Referrals Name Type Priority Associated Diagnoses [...] DIFFERENTIAL, AUTOMATED Routine 03/22/20 5:06 AM EDT CBC (WITH DIFF) Routine 03/22/2024 5:06 AM EDT MAGNESIUM Routine 03/22/2024 5:06 AM EDT BASIC METABOLIC PANEL Routine 03/22/2024 5:06 AM EDT HEMOGRAM Routine 03/21/2024 2:57 AM EDT DIFFERENTIAL, AUTOMATED Routine 03/21/20 2:57 AM EDT METANEPHRINES, FRACTIONATED FREE, PLASMA Routine 03/21/2024 2:57 AM EDT CBC (WITH DIFF) Routine 03/21/2024 2:57 AM EDT MAGNESIUM Routine 03/21/2024 2:57 AM EDT BASIC METABOLIC PANEL Routine 03/21/2024 2:57 AM EDT HEMOGRAM Routine 03/20/2024 10:38 AM EDT DIFFERENTIAL, AUTOMATED Routine 03/20/20 10:38 AM EDT IRON AND TIBC Routine 03/20/2024 10:38 AM EDT CBC (WITH DIFF) Routine 03/20/2024 10:38 AM EDT MAGNESIUM Routine 03/20/2024 10:38 AM EDT BASIC METABOLIC PANEL Routine 03/20/2024 10:38 AM EDT HC VENIPUNCTURE [...] PROTHROMBIN TIME Routine 03/19/2024 5:25 AM EDT CBC (WITH DIFF) Routine 03/19/2024 5:25 AM EDT HEMOGLOBIN A1C Routine 03/19/2024 5:25 AM EDT LIPID PANEL (REFLEX DIRECT LDL) Routine 03/19/2024 5:25 AM EDT COMPREHENSIVE METABOLIC PANEL Routine 03/19/2024 5:25 AM EDT EKG 12-LEAD STAT 03/19/2024 2:[address] elevation myocardial infarction involving left anterior descending (LAD) coronary artery HC TROPONIN T STAT 03/19/2024 2:20 AM EDT HEMOGRAM Routine 03/19/2024 2:20 AM EDT DIFFERENTIAL, AUTOMATED Routine 03/19/20 24 2:20 AM EDT HC PARTIAL THROMBOPLASTIN TIME Routine 03/19/2024 2:20 AM EDT PROTHROMBIN TIME Routine 03/19/2024 2:20 AM EDT CBC (WITH DIFF) Routine 03/19/2024 2:20 AM EDT PHOSPHORUS Routine 03/19/2024 2:20 AM EDT PRO-BRAIN NATRIURETIC PEPTIDE Routine 03/19/2024 2:20 AM EDT MAGNESIUM Routine 03/19/2024 2:20 AM EDT HEPATIC FUNCTION PANEL Routine 4 2:20 AM EDT BASIC METABOLIC PANEL Routine 03/19/2024 2:20 AM EDT POINT OF CARE BLOOD GAS HISTORICAL Routine 03/19/2024 1:41 AM EDT CARDIAC CATHETERIZATION Routine 03/19/20 24 1:36 AM EDT POINT OF CARE BLOOD GAS HISTORICAL Routine 03/19/2024 1:26 AM EDT documented in this encounter Results * (ABNORMAL) Differential, Automated (03/22/2024 5:06 AM EDT) Neutrophil % 71.6 % [facility] Neutrophil Absolute 8.34(H) 1.70 - 6.10 x10(3)/mc L [facility] Lymph % 17.4 % [facility] Lymphocytes Abs 2.0 0.9 - 3.2 x10(3)/mc L [facility] Monocyte % 8.2 % [facility] Monocyte Abs 1.0(H) 0.3 - 0.9 x10(3)/mc L [facility] Eos % 2.2 % [facility] Eosinophils Abs 0.3 0.0 - 0.4 x10(3)/mc L [facility] Basophil % 0.3 % [facility] Baso Absolute 0.0 0.0 - 0.1 x10(3)/mc L [facility] Immature Gran % 0.30 % [facility] Comment: Immature granulocytes(IG's)percentage and absolute count will include metamyelocytes, myelocytes, and promyelocytes. Blood smears from CBCs yielding IG's will be scanned manually for concordance. If this scan disagrees with the automated IG or if promyelocytes are noted, a manual differential will be performed. Immature Gran Absolute 0.03 0.00 - 0.04 x10(3)/mc L [facility] Blood 03/22/2024 5:06 AM EDT 03/22/2024 5:12 AM EDT Narrative Resulting Agency Comment Spec In Lab Horace Hancock MD HEMATOLOGY ORDERABLE S [facility] [place] [address] * (ABNORMAL) Hemogram (03/22/2024 5:06 AM EDT) White Blood Cell 11.6(H) 4.0 - 9.5 x10(3)/mc L [facility] Red Blood Cell 4.80 4.00 - 5.21 x10(6)/mc L [facility] Hemoglobin 13.5 11.7 - 15.5 g/dL [facility] Hematocrit 40.3 35.7 - 45.8 % [facility] Mean Cell Volume 84.0 82.6 - 94.4 fL [facility] Mean Cell Hemoglobin 28.1 27.1 - 32.0 pg [facility] Mean Cell Hemoglobin Concentration 33.5 31.7 - 35.0 g/dL [facility] Platelet 232 145 - 357 x10(3)/mc L [facility] RDW Standard Deviation 42.2 37.0 - 46.0 fL [facility] RDW coefficient of variation 13.5 11.5 - 14.1 % [facility] Mean Platelet Volume 9.7 7.6 - 12.9 fL [facility] NRBC% auto 0.0 % [facility] NRBC Absolute 0.000 0.000 - 0.000 x10(3)/mc L [facility] Blood 03/22/2024 5:06 AM EDT 03/22/2024 5:12 AM EDT Narrative Resulting Agency Comment Spec In Lab Horace Hancock MD HEMATOLOGY ORDERABLE S [facility] [place] [address] * Basic Metabolic Panel (non-fasting) (03/22/2024 5:06 AM EDT) Glucose 107 65 - 199 mg/dL [facility] Comment:Diabetes: >=200 mg/d L plus symptoms Blood Urea Nitrogen 18 8 - 18 mg/dL [facility] Creatinine 0.87 0.70 - 1.20 mg/dL [facility] Sodium 138 135 - 145 mmol/L [facility] Potassium 4.1 3.5 - 5.0 mmol/L [facility] Comment: Please note: ??Patients with WBC >100,000 may have falsely elevated Potassium levels. ??For accurate Potassium quantification in these patients send serum separator tube (gold top) for subsequent determinations. ??Contact the Clinical Chemistry Laboratory if there are any questions. Chloride 104 98 - 107 mmol/L [facility] Carbon Dioxide 24 22 - 31 mmol/L [facility] Anion Gap 10 5 - 15 mmol/L [facility] Calcium 9.2 8.5 - 10.5 mg/dL [facility] Est Glomerular Filtration Rate 76 >=60 mL/min/1. 73 m?? [facility] Comment: This patient's estimated [...] Hancock MD CHEMISTRY ORDERABLES Performing Organization Address City/[facility]/ZIP Co de Phone Number [facility] [place] [address] * Magnesium (03/22/2024 5:06 AM EDT) Pathologist [facility] Magnesium 0.90 0.69 - 1.07 mmol/L [facility] Blood 03/22/2024 5:06 AM EDT 03/22/2024 5:12 AM EDT Narrative Resulting Agency Comment Spec In Lab Destin Ambrosio MD CHEMISTRY ORDERABLES Performing Organization Address City/[facility]/ZIP Co de Phone Number [facility] [place] [address] * (ABNORMAL) Differential, Automated (03/21/2024 2:57 AM EDT) Pathologist [facility] Neutrophil % 63.0 % [facility] Neutrophil Absolute 6.70(H) 1.70 - 6.10 x10(3)/mc L [facility] Lymph % 24.9 % [facility] Lymphocytes Abs 2.6 0.9 - 3.2 x10(3)/mc L [facility] Monocyte % 8.7 % [facility] Monocyte Abs 0.9 0.3 - 0.9 x10(3)/mc L [facility] Eos % 2.8 % [facility] Eosinophils Abs 0.3 0.0 - 0.4 x10(3)/mc L [facility] Basophil % 0.3 % [facility] Baso Absolute 0.0 0.0 - 0.1 x10(3)/mc L [facility] Immature Gran % 0.30 % [facility] Comment: Immature granulocytes(IG's)percentage and absolute count will include metamyelocytes, myelocytes, and promyelocytes. Blood smears from CBCs yielding IG's will be scanned manually for concordance. If this scan disagrees with the automated IG or if promyelocytes are noted, a manual differential will be performed. Immature Gran Absolute 0.03 0.00 - 0.04 x10(3)/mc L [facility] Blood 03/21/2024 2:57 AM EDT 03/21/2024 3:03 AM EDT Narrative Resulting Agency Comment Spec In Lab Horace Hancock MD HEMATOLOGY ORDERABLE S [facility] [place] [address] * (ABNORMAL) Hemogram (03/21/2024 2:57 AM EDT) White Blood Cell 10.6(H) 4.0 - 9.5 x10(3)/ L [facility] Red Blood Cell 4.54 4.00 - 5.21 x10(6)/mc L [facility] Hemoglobin 12.8 11.7 - 15.5 g/dL [facility] Hematocrit 38.2 35.7 - 45.8 % [facility] Mean Cell Volume 84.1 82.6 - 94.4 fL [facility] Mean Cell Hemoglobin 28.2 27.1 - 32.0 pg [facility] Mean Cell Hemoglobin Concentration 33.5 31.7 - 35.0 g/dL [facility] Platelet 242 145 - 357 x10(3)/mc L [facility] RDW Standard Deviation 42.4 37.0 - 46.0 fL [facility] RDW coefficient of variation 13.7 11.5 - 14.1 % [facility] Mean Platelet Volume 9.5 7.6 - 12.9 fL [facility] NRBC% auto 0.0 % [facility] NRBC Absolute 0.000 0.000 - 0.000 x10(3)/mc L [facility] Blood 03/21/2024 2:57 AM EDT 03/21/2024 3:03 AM EDT Narrative Resulting Agency Comment Spec In Lab Horace Hancock MD HEMATOLOGY ORDERABLE S [facility] [place] [address] * Basic Metabolic Panel (non-fasting) (03/21/2024 2:57 AM EDT) Glucose 98 65 - 199 mg/dL [facility] Comment:Diabetes: >=200 mg/d L plus symptoms Blood Urea Nitrogen 15 8 - 18 mg/dL [facility] Creatinine 0.82 0.70 - 1.20 mg/dL [facility] Sodium 144 135 - 145 mmol/L [facility] Potassium 4.2 3.5 - 5.0 mmol/L [facility] Comment: Please note: ??Patients with WBC >100,000 may have falsely elevated Potassium levels. ??For accurate Potassium quantification in these patients send serum separator tube (gold top) for subsequent determinations. ??Contact the Clinical Chemistry Laboratory if there are any questions. Chloride 107 98 - 107 mmol/L [facility] Carbon Dioxide 25 22 - 31 mmol/L [facility] Anion Gap 12 5 - 15 mmol/L [facility] Calcium 9.2 8.5 - 10.5 mg/dL [facility] Est Glomerular Filtration Rate 82 >=60 mL/min/1. 73 m?? [facility] Comment: This patient's estimated [...] Hancock MD CHEMISTRY ORDERABLES Performing Organization Address City/[facility] Co de Phone Number [facility] [place] [address] * Magnesium (03/21/2024 2:57 AM EDT) Magnesium 0.91 0.69 - 1.07 mmol/L [facility] Blood 03/21/2024 2:57 AM EDT 03/21/2024 3:03 AM EDT Narrative Resulting Agency Comment Spec In Lab Destin Ambrosio MD CHEMISTRY ORDERABLES Performing Organization Address [facility] Co de Phone Number [facility] [place] [address] * Metanephrines, Fractionated Free, plasma (03/21/2024 2:57 AM EDT) Normetanephrine, Free (JANUARY) 0.47 <0.90 nmol/L [facility] Comment: Test Performed by: [facility] [address] [place] [address] Anesthesiologist Attending: Chasity Hernandez Ph.D.; CLIA# [id number] Metanephrine, Free (MAY) <0.20 <0.50 nmol/L [facility] Comment: ADDITIONAL INFORMATION This test was developed and its performance characteristics determined by [facility] [facility] in a manner consistent with CLIA requirements. This test has not been cleared or approved by the U.S. Food and Drug Administration. Test Performed by: [facility] [address] [place] [address] Anesthesiologist Attending: Chasity Hernandez Ph.D.; CLIA# [id number] Blood 03/21/2024 2:57 AM EDT 03/21/2024 11:29 AM EDT Narrative Resulting Agency Comment Spec In Lab Horace Hancock MD LAB SEND OUT ORDERAB LES Performing Organization Address City/[facility]/ZIP Co de Phone Number [facility] [place] [address] * Iron and TIBC (03/20/2024 10:38 AM EDT) [facility] Iron 57 30 - 150 mcg/dL [facility] TIBC 278 250 - 450 mcg/dL [facility] Iron Saturation 21 20 - 50 % [facility] Blood Venous Draw / Unknown 03/20/2024 10:38 AM EDT 03/20/2024 10:52 AM EDT Narrative Resulting Agency Comment Spec In Lab Horace Hancock MD CHEMISTRY ORDERABLES Performing Organization Address City/[facility]/ZIP Co de Phone Number [facility] [place] [address] * (ABNORMAL) Differential, Automated (03/20/2024 10:38 AM EDT) [facility] Neutrophil % 73.1 % [facility] Neutrophil Absolute 9.60(H) 1.70 - 6.10 x10(3)/mc L [facility] Lymph % 17.3 % [facility] Lymphocytes Abs 2.3 0.9 - 3.2 x10(3)/mc L [facility] Monocyte % 7.5 % [facility] Monocyte Abs 1.0(H) 0.3 - 0.9 x10(3)/mc L [facility] Eos % 1.5 % [facility] Eosinophils Abs 0.2 0.0 - 0.4 x10(3)/[facility] LABORATORY Basophil % 0.3 % [facility] Baso Absolute 0.0 0.0 - 0.1 x10(3)/[facility] LABORATORY Immature Gran % 0.30 % [facility] Comment: Immature granulocytes(IG's)percentage and absolute count will include metamyelocytes, myelocytes, and promyelocytes. Blood smears from CBCs yielding IG's will be scanned manually for concordance. If this scan disagrees with the automated IG or if promyelocytes are noted, a manual differential will be performed. Immature Gran Absolute 0.04 0.00 - 0.04 x10(3)/[facility] LABORATORY Blood 03/20/2024 10:3 8 AM EDT 03/20/2024 10:47 AM EDT Narrative Resulting Agency Comment Spec In Lab Horace Hancock MD HEMATOLOGY ORDERABLE S [facility] [place] [address] * (ABNORMAL) Hemogram (03/20/2024 10:38 AM EDT) White Blood Cell 13.2(H) 4.0 - 9.5 x10(3)/[facility] LABORATORY Red Blood Cell 4.66 4.00 - 5.21 x10(6)/[facility] LABORATORY Hemoglobin 13.0 11.7 - 15.5 g/dL [facility] Hematocrit 38.7 35.7 - 45.8 % [facility] Mean Cell Volume 83.0 82.6 - 94.4 fL [facility] Mean Cell Hemoglobin 27.9 27.1 - 32.0 pg [facility] Mean Cell Hemoglobin Concentration 33.6 31.7 - 35.0 g/dL [facility] Platelet 238 145 - 357 x10(3)/[facility] LABORATORY RDW Standard Deviation 41.7 37.0 - 46.0 [facility] LABORATORY RDW coefficient of variation 13.8 11.5 - 14.1 % [facility] Mean Platelet Volume 9.8 7.6 - 12.9 [facility] LABORATORY NRBC% auto 0.0 % [facility] NRBC Absolute 0.000 0.000 - 0.000 x10(3)/mc L [facility] Blood 03/20/2024 10:3 8 AM EDT 03/20/2024 10:47 AM EDT Narrative Resulting Agency Comment Spec In Lab Horace Hancock MD HEMATOLOGY ORDERABLE S Performing Organization Address City/[facility]/ZIP Co de Phone Number [facility] [place] [address] * Magnesium (03/20/2024 10:38 AM EDT) Magnesium 0.88 0.69 - 1.07 mmol/L [facility] Blood 03/20/2024 10:3 8 AM EDT 03/20/2024 10:47 AM EDT Narrative Resulting Agency Comment Spec In Lab Horace Hancock MD CHEMISTRY ORDERABLES Performing Organization Address City/[facility] Co de Phone Number [facility] [place] [address] * Basic Metabolic Panel (non-fasting) (03/20/2024 10:38 AM EDT) Glucose 108 65 - 199 mg/dL [facility] Comment:Diabetes: >=200 mg/d L plus symptoms Blood Urea Nitrogen 11 8 - 18 mg/dL [facility] Creatinine 0.82 0.70 - 1.20 mg/dL [facility] Sodium 137 135 - 145 mmol/L [facility] Potassium 4.3 3.5 - 5.0 mmol/L [facility] Comment: Please note: ??Patients with WBC >100,000 may have falsely elevated Potassium levels. ??For accurate Potassium quantification in these patients send serum separator tube (gold top) for subsequent determinations. ??Contact the Clinical Chemistry Laboratory if there are any questions. Chloride 101 98 - 107 mmol/L [facility] Carbon Dioxide 22 22 - 31 mmol/L [facility] Anion Gap 14 5 - 15 mmol/L [facility] Calcium 9.0 8.5 - 10.5 mg/dL [facility] Est Glomerular Filtration Rate 82 >=60 mL/min/1. 73 m?? [facility] Comment: This patient's estimated [...] MD CHEMISTRY ORDERABLES Performing Organization Address [facility]/ZIP Co de Phone Number [facility] [place] [address] * Magnesium (03/19/2024 11:01 PM EDT) Magnesium 0.96 0.69 - 1.07 mmol/L [facility] Blood Venous Draw / Unknown 03/19/2024 11:01 PM EDT 03/19/2024 11:06 PM EDT Narrative Resulting Agency Comment Spec In Lab Horace Hancock MD CHEMISTRY ORDERABLES [facility] [place] [address] * (ABNORMAL) Troponin (03/19/2024 11:01 PM EDT) Troponin-T, High Sensitivity 2,406(H) <=14 ng/L [facility] Comment: This patient's troponin [...] value can be found in the [facility] Laboratory Test Catalog Troponin - [facility] Test Catalog Reference: Fourth [place] Definition of Myocardial Infarction. Journal of the [place] [employer] 2018;72:6515-3011 Blood 03/19/2024 11:0 1 PM EDT 03/19/2024 11:05 PM EDT Narrative Resulting Agency Comment Spec In Lab Franky Mead MD CHEMISTRY ORDERABLE S [facility] [place] [address] * (ABNORMAL) Troponin (03/19/2024 8:40 PM EDT) Troponin-T, High Sensitivity 2,586(H) <=14 ng/L [facility] Comment: This patient's troponin [...] value can be found in the [facility] Test Catalog Troponin - [facility] Test Catalog Reference: Fourth [place] Definition of Myocardial Infarction. Journal of the [place] 2018;72:2379-0797 Blood 03/19/2024 8:40 PM EDT 03/19/2024 8:45 PM EDT Narrative Resulting Agency Comment Spec In Lab Ganesh Nguyen MD CHEMISTRY ORDERAB LES [facility] [place] [id number] * EKG 12 Lead (03/19/2024 8:32 PM EDT) Ventricular rate 70 BPM MUSE SYSTEM Atrial Rate 70 BPM MUSE SYSTEM P-R Interval 158 ms MUSE SYSTEM QRS Duration 78 ms MUSE SYSTEM Q-T Interval 470 ms MUSE SYSTEM QTC Calculated (Bezet) 507 ms MUSE SYSTEM Calculated P Evans 62 degrees MUSE SYSTEM Calculated R Evans 42 degrees MUSE SYSTEM Calculated T Evans -158 degrees MUSE SYSTEM INTERPRETATION Normal sinus rhythm Poor R wave progression T wave abnormality, consider lateral ischemia Prolonged QT Abnormal ECG When compared with ECG of 19-MAR-2024 17:27, No significant change was found Confirmed by MD Hebert, Destin ([id number]) on 03/23/2024 8:10:58 AM MUSE SYSTEM 03/19/2024 8:32 PM EDT 03/23/2024 8:10 AM EDT Franky Mead MD ECG ORDERABLES Performing Organization Address [facility] de Phone Number MUSE SYSTEM * EKG 12 Lead (03/19/2024 5:27 PM EDT) Ventricular rate 70 BPM MUSE SYSTEM Atrial Rate 70 BPM MUSE SYSTEM P-R Interval 154 ms MUSE SYSTEM QRS Duration 80 ms MUSE SYSTEM Q-T Interval 460 ms MUSE SYSTEM QTC Calculated (Bezet) 496 ms MUSE SYSTEM Calculated P Evans 80 degrees MUSE SYSTEM Calculated R Evans 87 degrees MUSE SYSTEM Calculated T Evans -96 degrees MUSE SYSTEM INTERPRETATION Normal sinus rhythm T wave abnormality, consider lateral ischemia Prolonged QT Abnormal ECG When compared with ECG of 19-MAR-2024 02:23, Non-specific change in ST segment in Anterior leads T wave inversion more evident in Inferior leads T wave inversion now evident in Anterolateral leads Confirmed by MD Hebert, Destin ([id number]) on 03/23/2024 8:10:45 AM MUSE SYSTEM 03/19/2024 5:27 PM EDT 03/23/2024 8:10 AM EDT Unknown ECG ORDERABLES Performing Organization Address [facility] de Phone Number MUSE SYSTEM * (ABNORMAL) Troponin (03/19/2024 2:45 PM EDT) Pathologist [facility] Troponin-T, High Sensitivity 3,792(H) <=14 ng/L [facility] Comment: This patient's troponin [...] value can be found in the [facility] Test Catalog Troponin - [facility] Test Catalog Reference: Fourth [place] Definition of Myocardial Infarction. Journal of the [place] [employer] 2018;72:5078-6618 Blood 03/19/2024 2:45 PM EDT 03/19/2024 2:54 PM EDT Narrative Resulting Agency Comment Spec In Lab Horace Hancock MD CHEMISTRY ORDERABLES [facility] [place] [address] * ECHO COMPLETE W CONTRAST (03/19/2024 10:53 AM EDT) Anatomical Region Laterality Modality Cardiac Other 03/19/2024 9:03 AM EDT Narrative 03/19/2024 12:12 PM EDT [address] [place] [address] ? Echocardiogram Report Name: ISA RO ?Study Date: 03/19/2024 09:03 AMBP: 129/68 mmHg ? Patient Location: 4A : 1965 ? Height: 158 cm ? Account: [id number] Age: 59 yrs ? Weight: 57 kg Gender: Female ?BSA: 1.6 m2 Ordering Physician: GANESH NGUYEN Referring Physician: GANESH NGUYEN Performed By: PEREZ Carlos Reason For Study: STEMI involving LAD Exam Location: [facility]. Interpretation Summary Normal left ventricle size with mildly reduced LV function. LV ejection fraction 49%. LAD territory wall motion abnormality, predominantly involving the LV apex. No LV thrombus visualized with echo contrast. Normal right ventricle. No significant valvular abnormalities. Compared with prior echo dated 08/28/23, LV function has now decreased and new wall motion abnormalities. Procedure Complete-[id number]. Image enhancement Definity was used for left [...] Note Destin Ambrosio MD - 03/19/2024 [address] [place] [address] Echocardiogram Report Name: ANNENORMA ISA Vera Study Date: 409:03 AMBP: 129/68 mmHg Patient Location: : 1965 Height: 158 cm Account: [id number] Age: 59 yrs Weight: 57 kg Gender: Female BSA: 1.6 m2 Ordering Physician: GANESH NGUYEN Referring Physician: GANESH NGUYEN Performed By: PEREZ Carlos Reason For Study: STEMI involving LAD Exam Location: [facility]. Interpretation Summary Normal left ventricle size with mildly reduced LV function. LV ejectionfraction 49%. LAD territory wall motion abnormality, predominantly involving the LVapex. No LV thrombus visualized with echo contrast. Normal right ventricle. No significant valvular abnormalities. Compared with prior echo dated 08/28/23, LV function has now decreased andnew wall motion abnormalities. Procedure Complete-[id number]. Image enhancement Definity was used for left [...] Chest One View (03/19/2024 8:37 AM EDT) [employer] WORKSTATION ID [id number] [facility] Anatomical Region Laterality Modality Chest N/A Digital [...] have questions please contact the health manager medicare marketing that requested your imaging first. ? Electronically signed by: Isa Whitley MD, [facility] ??([phone]), at 03/19/2024 10:09 AM Narrative 03/19/2024 10:09 [...] who have questions please contactthe health manager medicare marketing that requested your imaging first. Electronically signed by: Isa Whitley MD, [facility]([phone]), at 03/19/2024 10:09 AM Delores Jett MD IMG DX ORDERABLES * Hemoglobin A1c (03/19/2024 5:25 AM EDT) Hemoglobin A1c 5.6 4.3 - 5.6 % [facility] Comment: Reference Range: 4.3 [...] Mellitus, Diabetes Care 2013; 36: Suppl. 1, Z04-15 Estimated Average Glucose 114 mg/dL [facility] Blood Venous Draw / Unknown 03/19/2024 5:25 AM EDT 03/19/2024 3:52 PM EDT Narrative Resulting Agency Comment Spec In Lab Horace Hancock MD CHEMISTRY ORDERABLES [facility] [place] [address] * (ABNORMAL) Differential, Automated (03/19/2024 5:25 AM EDT) Neutrophil % 90.0 % [facility] Neutrophil Absolute 16.73(H) 1.70 - 6.10 x10(3)/mc L [facility] Lymph % 5.2 % [facility] Lymphocytes Abs 1.0 0.9 - 3.2 x10(3)/mc L [facility] Monocyte % 4.2 % [facility] Monocyte Abs 0.8 0.3 - 0.9 x10(3)/mc L [facility] Eos % 0.0 % [facility] Eosinophils Abs 0.0 0.0 - 0.4 x10(3)/mc L [facility] Basophil % 0.2 % [facility] Baso Absolute 0.0 0.0 - 0.1 x10(3)/mc L [facility] Immature Gran % 0.40 % [facility] Comment: Immature granulocytes(IG's)percentage and absolute count will include metamyelocytes, myelocytes, and promyelocytes. Blood smears from CBCs yielding IG's will be scanned manually for concordance. If this scan disagrees with the automated IG or if promyelocytes are noted, a manual differential will be performed. Immature Gran Absolute 0.08(H) 0.00 - 0.04 x10(3)/mc L [facility] Blood 03/19/2024 5:25 AM EDT 03/19/2024 5:34 AM EDT Narrative Resulting Agency Comment Spec In Lab Ganesh Nguyen MD HEMATOLOGY ORDERA BLES [facility] [place] [address] * (ABNORMAL) Hemogram (03/19/2024 5:25 AM EDT) White Blood Cell 18.6(H) 4.0 - 9.5 x10(3)/mc L [facility] Red Blood Cell 4.92 4.00 - 5.21 x10(6)/[facility] LABORATORY Hemoglobin 13.7 11.7 - 15.5 g/dL [facility] Hematocrit 40.6 35.7 - 45.8 % [facility] Mean Cell Volume 82.5(L) 82.6 - 94.4 fL [facility] Mean Cell Hemoglobin 27.8 27.1 - 32.0 pg [facility] Mean Cell Hemoglobin Concentration 33.7 31.7 - 35.0 g/dL [facility] Platelet 285 145 - 357 x10(3)/ L [facility] RDW Standard Deviation 41.1 37.0 - 46.0 [facility] LABORATORY RDW coefficient of variation 13.6 11.5 - 14.1 % [facility] Mean Platelet Volume 9.5 7.6 - 12.9 [facility] LABORATORY NRBC% auto 0.0 % [facility] NRBC Absolute 0.000 0.000 - 0.000 x10(3)/ L [facility] Blood 03/19/2024 5:25 AM EDT 03/19/2024 5:34 AM EDT Narrative Resulting Agency Comment Spec In Lab Ganesh Nguyen MD HEMATOLOGY ORDERA SELMAS [facility] [place] [address] * Lipid Panel (Reflex Direct LDL) (03/19/2024 5:25 AM EDT) Cholesterol, Total 324 mg/dL [facility] Comment: Desirable: ? <200 mg/dL Borderline High: 200-239 mg/dL Higher: ?>di=533 mg/dL Triglyceride 200 mg/dL [facility] Comment: Normal: ?<150 mg/dL Borderline High: 150-199 mg/dL High: ?200-499 mg/dL Very High: ? >se=434 mg/dL HDL Cholesterol 68 mg/dL [facility] Comment: Females: High Risk: <50 mg/dL Males: High Risk: <40 mg/dL LDL Cholesterol 216 mg/dL [facility] Comment: Desirable: ? <100 mg/dL Above Desirable: 100-129 mg/dL Borderline High: 130-159 mg/dL High: ?160-189 mg/dL Very High: ? >vr=300 mg/dL Lipid Interpretation See Note [facility] Comment: It is important [...] individuals with atherosclerotic cardiovascular disease (ASCVD)or LDL >kp=025 mg/dL, use a high-intensity statin (40-80 mg [...] Lab Ganesh Nguyen MD CHEMISTRY ORDERAB LES [facility] [place] [address] * (ABNORMAL) Troponin (03/19/2024 5:25 AM EDT) Pathologist [facility] Troponin-T, High Sensitivity 1,276(H) <=14 ng/L [facility] Comment: This patient's troponin [...] value can be found in the [facility] Test Catalog Troponin - [facility] Test Catalog Reference: Fourth [place] Definition of Myocardial Infarction. Journal of the [place] [employer] 2018;72:9846-0380 Blood 03/19/2024 5:25 AM EDT 03/19/2024 5:34 AM EDT Narrative Resulting Agency Comment Spec In Lab Ganesh Nguyen MD CHEMISTRY ORDERAB LES Performing Organization Address [facility] Co de Phone Number [facility] [place] [address] * APTT (03/19/2024 5:25 AM EDT) Partial Thromboplastin Time 29 25 - 37 sec [facility] Comment: The PTT is NOT appropriate for heparin monitoring. Use the Anti-Xa level for heparin monitoring (HEP UFH) or LMWH monitoring (HEP LMW). A PTT less than 37 seconds generally indicates adequate hemostasis. Blood 03/19/2024 5:25 AM EDT 03/19/2024 5:34 AM EDT Narrative Resulting Agency Comment Spec In Lab Ganesh Nguyen MD HEMATOLOGY ORDERA BLES Performing Organization Address City/[facility]/ZIP Co de Phone Number [facility] [place] [address] * Prothrombin Time (03/19/2024 5:25 AM EDT) Prothrombin Time 10.9 9.4 - 12.5 sec [facility] International Normalization Ratio 1.0 [facility] Comment: An [...] Lab Ganesh Nguyen MD HEMATOLOGY ORDERA BLES [facility] [place] [address] * (ABNORMAL) Comprehensive metabolic panel (non-fasting) (03/19/2024 5:25 AM EDT) Glucose 181 65 - 199 mg/dL [facility] Comment:Diabetes: >=200 mg/d L plus symptoms Blood Urea Nitrogen 14 8 - 18 mg/dL [facility] Creatinine 0.91 0.70 - 1.20 mg/dL [facility] Sodium 137 135 - 145 mmol/L [facility] Potassium 4.2 3.5 - 5.0 mmol/L [facility] Comment: Please note: ??Patients with WBC >100,000 may have falsely elevated Potassium levels. ??For accurate Potassium quantification in these patients send serum separator tube (gold top) for subsequent determinations. ??Contact the Clinical Chemistry Laboratory if there are any questions. Chloride 100 98 - 107 mmol/L [facility] Carbon Dioxide 22 22 - 31 mmol/L [facility] Anion Gap 15 5 - 15 mmol/L [facility] Calcium 8.7 8.5 - 10.5 mg/dL [facility] Protein, Total 7.2 6.1 - 8.0 g/dL [facility] Albumin 4.5 3.2 - 5.2 g/dL [facility] Aspartate Aminotransferase 95(H) 0 - 30 unit/L [facility] Comment:result rechecked-bz Alanine Aminotransferase 31(H) 0 - 30 unit/L [facility] Alkaline Phosphatase 70 35 - 105 unit/L [facility] Bilirubin, Total 0.5 0.2 - 1.3 mg/dL [facility] Est Glomerular Filtration Rate 72 >=60 mL/min/1. 73 m?? [facility] Comment: This patient's estimated [...] MD CHEMISTRY ORDERAB LES Performing Organization Address City/State/[facility] Co de Phone Number [facility] [place] [address] * EKG 12 Lead (03/19/2024 2:23 AM EDT) Ventricular rate 67 BPM MUSE SYSTEM Atrial Rate 67 BPM MUSE SYSTEM P-R Interval 152 ms MUSE SYSTEM QRS Duration 78 ms MUSE SYSTEM Q-T Interval 500 ms MUSE SYSTEM QTC Calculated (Bezet) 528 ms MUSE SYSTEM Calculated P Evans 54 degrees MUSE SYSTEM Calculated R Evans 56 degrees MUSE SYSTEM Calculated T Evans 31 degrees MUSE SYSTEM INTERPRETATION Normal sinus rhythm Prolonged QT Abnormal ECG No previous ECGs available Confirmed by MD Ambrosio David ([id number]) on 03/23/2024 8:10:32 AM MUSE SYSTEM 03/19/2024 2:23 AM EDT 03/23/2024 8:10 AM EDT Ganesh Nguyen MD ECG ORDERABLES MUSE SYSTEM * (ABNORMAL) Differential, Automated (03/19/2024 2:20 AM EDT) Neutrophil % 89.8 % [facility] Neutrophil Absolute 15.44(H) 1.70 - 6.10 x10(3)/[facility] LABORATORY Lymph % 6.4 % [facility] Lymphocytes Abs 1.1 0.9 - 3.2 x10(3)/[facility] LABORATORY Monocyte % 2.9 % [facility] Monocyte Abs 0.5 0.3 - 0.9 x10(3)/[facility] LABORATORY Eos % 0.1 % [facility] Eosinophils Abs 0.0 0.0 - 0.4 x10(3)/[facility] LABORATORY Basophil % 0.3 % [facility] Baso Absolute 0.0 0.0 - 0.1 x10(3)/[facility] LABORATORY Immature Gran % 0.50 % [facility] Comment: Immature granulocytes(IG's)percentage and absolute count will include metamyelocytes, myelocytes, and promyelocytes. Blood smears from CBCs yielding IG's will be scanned manually for concordance. If this scan disagrees with the automated IG or if promyelocytes are noted, a manual differential will be performed. Immature Gran Absolute 0.08(H) 0.00 - 0.04 x10(3)/ L [facility] Blood 03/19/2024 2:20 AM EDT 03/19/2024 2:59 AM EDT Narrative Resulting Agency Comment Spec In Lab Ganesh Nguyen MD HEMATOLOGY ORDERA BLES [facility] [place] [address] * (ABNORMAL) Hemogram (03/19/2024 2:20 AM EDT) [facility] White Blood Cell 17.2(H) 4.0 - 9.5 x10(3)/ L [facility] Red Blood Cell 4.70 4.00 - 5.21 x10(6)/ L [facility] Hemoglobin 13.3 11.7 - 15.5 g/dL [facility] Hematocrit 38.7 35.7 - 45.8 % [facility] Mean Cell Volume 82.3(L) 82.6 - 94.4 fL [facility] Mean Cell Hemoglobin 28.3 27.1 - 32.0 pg [facility] Mean Cell Hemoglobin Concentration 34.4 31.7 - 35.0 g/dL [facility] Platelet 281 145 - 357 x10(3)/mc L [facility] RDW Standard Deviation 41.0 37.0 - 46.0 [facility] LABORATORY RDW coefficient of variation 13.7 11.5 - 14.1 % [facility] Mean Platelet Volume 9.7 7.6 - 12.9 fL [facility] NRBC% auto 0.0 % [facility] NRBC Absolute 0.000 0.000 - 0.000 x10(3)/ L [facility] Blood 03/19/2024 2:20 AM EDT 03/19/2024 2:59 AM EDT Narrative Resulting Agency Comment Spec In Lab Ganesh Nguyen MD HEMATOLOGY ORDERA BLES [facility] [place] [address] * (ABNORMAL) Troponin (03/19/2024 2:20 AM EDT) [facility] Troponin-T, High Sensitivity 960(H) <=14 ng/L [facility] Comment: This patient's troponin [...] value can be found in the [facility] Test Catalog Troponin - [facility] Test Catalog Reference: Fourth [place] Definition of Myocardial Infarction. Journal of the [place] [employer] 2018;72:2643-3711 Blood 03/19/2024 2:20 AM EDT 03/19/2024 2:59 AM EDT Narrative Resulting Agency Comment Spec In Lab Ganesh Nguyen MD CHEMISTRY ORDERAB LES Performing Organization Address City/State/[facility] Co de Phone Number [facility] [place] [address] * (ABNORMAL) APTT (03/19/2024 2:20 AM EDT) [facility] Partial Thromboplastin Time 123(Criti lewis) 25 - 37 sec [facility] Comment: Critical Result called by ?? [facility] [facility] Results read back by: ? chang [...] MD HEMATOLOGY ORDERA BLES Performing Organization Address [facility] de Phone Number [facility] [place] [address] * Prothrombin Time (03/19/2024 2:20 AM EDT) Prothrombin Time 11.7 9.4 - 12.5 sec [facility] International Normalization Ratio 1.0 [facility] Comment: An [...] MD HEMATOLOGY ORDERA BLES Performing Organization Address [facility] de Phone Number [facility] [place] [address] * (ABNORMAL) Hepatic Function Panel (03/19/2024 2:20 AM EDT) Protein, Total 6.7 6.1 - 8.0 g/dL [facility] Albumin 4.3 3.2 - 5.2 g/dL [facility] Aspartate Aminotransferase 49(H) 0 - 30 unit/L [facility] Alanine Aminotransferase 26 0 - 30 unit/L [facility] Alkaline Phosphatase 67 35 - 105 unit/L [facility] Bilirubin, Total 0.4 0.2 - 1.3 mg/dL [facility] Bilirubin, Direct 0.1 0.0 - 0.3 mg/dL [facility] Blood 03/19/2024 2:20 AM EDT 03/19/2024 2:59 AM EDT Narrative Resulting Agency Comment Spec In Lab Ganesh Nguyen MD CHEMISTRY ORDERAB LES Performing Organization Address [facility] Co de Phone Number [facility] [place] [address] * (ABNORMAL) pro-Brain Natriuretic Peptide (03/19/2024 2:20 AM EDT) NT-proBNP 529(H) <=124 pg/mL [facility] Blood 03/19/2024 2:20 AM EDT 03/19/2024 2:59 AM EDT Narrative Resulting Agency Comment Spec In Lab Ganesh Nguyen MD CHEMISTRY ORDERAB LES Performing Organization Address [facility] Co de Phone Number [facility] [place] [address] * Phosphorus (03/19/2024 2:20 AM EDT) Phosphorus 3.8 2.5 - 4.5 mg/dL [facility] Blood 03/19/2024 2:20 AM EDT 03/19/2024 2:59 AM EDT Narrative Resulting Agency Comment Spec In Lab Ganesh Nguyen MD CHEMISTRY ORDERAB LES Performing Organization Address [facility] Co de Phone Number [facility] [place] [address] * Magnesium (03/19/2024 2:20 AM EDT) Magnesium 0.71 0.69 - 1.07 mmol/L [facility] Blood 03/19/2024 2:20 AM EDT 03/19/2024 2:59 AM EDT Narrative Resulting Agency Comment Spec In Lab Ganesh Nguyen MD CHEMISTRY ORDERAB LES [facility] [place] [address] * (ABNORMAL) Basic Metabolic Panel (non-fasting) (03/19/2024 2:20 AM EDT) Glucose 160 65 - 199 mg/dL [facility] Comment:Diabetes: >=200 mg/d L plus symptoms Blood Urea Nitrogen 14 8 - 18 mg/dL [facility] Creatinine 0.88 0.70 - 1.20 mg/dL [facility] Sodium 137 135 - 145 mmol/L [facility] Potassium 3.9 3.5 - 5.0 mmol/L [facility] Comment: Please note: ??Patients with WBC >100,000 may have falsely elevated Potassium levels. ??For accurate Potassium quantification in these patients send serum separator tube (gold top) for subsequent determinations. ??Contact the Clinical Chemistry Laboratory if there are any questions. Chloride 100 98 - 107 mmol/L [facility] Carbon Dioxide 20(L) 22 - 31 mmol/L [facility] Anion Gap 17(H) 5 - 15 mmol/L [facility] Calcium 8.2(L) 8.5 - 10.5 mg/dL [facility] Est Glomerular Filtration Rate 75 >=60 mL/min/1. 73 m?? [facility] Comment: This patient's estimated [...] MD CHEMISTRY ORDERAB LES Performing Organization Address City/[facility]/ZIP Co de Phone Number [facility] [place] [address] * (ABNORMAL) Point of Care Blood Gas Historical (03/19/2024 1:41 AM EDT) pH, POC 7.28(Criti lewis) 7.35 - 7.45 [facility] pCO2, POC 40 35 - 45 mmHg [facility] pO2, POC 84(L) 85 - 104 mmHg [facility] Base Excess, POC -8.0(L) -3.0 - 3.0 mmol/L [facility] Bicarbonate, POC 18.6(L) 20.0 - 26.0 mmol/L [facility] Carbon Dioxide, POC 20(L) 22 - 31 mmol/L [facility] Sodium, POC 134(L) 135 - 145 mmol/L [facility] POC Potassium 3.4(L) 3.5 - 5.0 mmol/L [facility] Ionized Calcium, POC 1.09(L) 1.15 - 1.33 mmol/L [facility] POC Hematocrit 38.0 34.0 - 45.0 % [facility] POC Calc Hgb 12.9 11.2 - 15.7 g/dL [facility] Blood 03/19/2024 1:41 AM EDT 03/19/2024 1:41 AM EDT Kathryn Walker MD CHEMISTRY ORDERABL ES Performing Organization Address [facility]/ZIP Co de Phone Number [facility] [place] [address] * CARDIAC CATHETERIZATION (03/19/2024 1:36 AM EDT) Anatomical Region Laterality Modality Other Narrative 03/19/2024 7:19 AM EDT ?[facility] ? Cardiac Catheterization/Intervention Report ? Patient Name: Isa Ro. ? Procedure Date: 03/19/2024 ? A #: [id number] ? Primary Physician: Kirill, Ramo S ? Case #: [id number] ? File Name: [id number] ? Catheterization Order Number: [id number] ? [facility] ? Final Report [place], [place] ? Patient Name: ? Isa Ro ? ID#: ?[id number] ? : ?1965 ? Procedure Date: ? March 19, 2024 ? Case #: ? [id number] ? Room: ? 6 ? Case Physician: [...] was Emergent. The indication for ?the laboratory inspector visit is ACS less than or equal [...] ?3.5 guiding catheter and a 3.5 Fr [place] 20 Mhz using auto 1 ?mm/sec pullback. [...] A premounted 3.00 x 08 mm Alberto [place] (JAHAIRA) was deployed ? with a maximum inflation pressure of 12 atmospheres. ? Another stent insertion was accomplished through a 6 Fr. EBU ? 3.5 guide. ??A premounted 2.00 x 08 mm [place] (JAHAIRA) was ? deployed. ? The final [...] administered prior to arrival in the laboratory inspector. ?Recommended anti-platelet/anti-thrombotic regimen: ?Start aspirin 81 mg daily now and continue for indefinitely. ?Start clopidogrel 75 mg daily now and continue for 12 months then stop. ?These recommendations are made at the time of the intervention. Patient ?and provider preferences or a changing clinical situation may require ?modification of this regimen. Consult [facility] Interventional Cardiology for ?questions. ?The 1 year [...] treatment. Consult ?http://tools.acc.org/DAPTriskapp/#!/content/calculator/ or [facility] ?Interventional Cardiology for questions ? Conclusions: ?* [...] present for the entire procedure. ?Dr. Ramo Ryo M.D. was present during the moderate sedation [...] Procedure Note Ramo Roy MD - 03/21/2024 [facility] Cardiac Catheterization/Intervention Report Patient Name: Isa Ro Procedure Date: 03/19/2024 A #: [id number] Primary Physician: Ramo Roy Case #: [id number] File Name: [id number] Catheterization Order Number: [id number] [facility] FinalReport [place], [place] Patient Name: Isa Ro ID#:[id number] :1965 Procedure Date: March 19, 2024 Case [...] patientwas designated as ASA Class IV. The [facility] clinical frailty scale is 3: Managing Well. Diagnostic Tests: Prior Coronary Angiography: Prior coronary angiography was performed on 12/15/2014. Electrocardiography: EKG was assessed by ECG. EKG was Abnormal. EKG showed STDeviation >= 0.5 mm and other abnormality. Medications Prior to Procedure: Aspirin. Indications for Diagnostic Cath: The priority of the diagnostic procedure was Emergent. Theindication for the laboratory inspector visit is ACS less than or equal [...] 3.5 guiding catheter and a 3.5 Fr [place] 20 Mhz usingauto 1 mm/sec pullback. Imaging [...] The priority for the procedure was Emergent.The [facility] indication for the procedure was STEMI-Immediate PCI [...] The lesion was predilated with a 2.50mm [id number] balloon with a maximum inflation pressure of 14atmospheres. A premounted 3.00 x 08 mm Alberto [place] (JAHAIRA) wasdeployed with a maximum inflation pressure of 12 atmospheres. Another stent insertion was accomplished through a 6 Fr.EBU 3.5 guide. A premounted 2.00 x 08 mm Alberto [place] (JAHAIRA)was deployed. The final outcome was defined [...] administered prior to arrival in the laboratory inspector. Recommended anti-platelet/anti-thrombotic regimen: Start aspirin 81 mg daily now and continue for indefinitely. Start clopidogrel 75 mg daily now and continue for 12 months thenstop. These recommendations are made at the time of the intervention.Patient and provider preferences or a changing clinical situation mayrequire modification of this regimen. Consult [facility] Interventional Cardiologyfor questions. The 1 year bleeding [...] medical treatment.Consult http://tools.acc.org/DAPTriskapp/#!/content/calculator/ or [facility] Interventional Cardiology for questions Conclusions: * One [...] Blood Gas Historical (03/19/2024 1:26 AM EDT) pH, POC 7.20(Criti lewis) 7.35 - 7.45 [facility] pCO2, POC 38 35 - 45 mmHg [facility] pO2, POC 74(L) 85 - 104 mmHg [facility] Base Excess, POC -14.0(L) -3.0 - 3.0 mmol/L [facility] Bicarbonate, POC 14.5(L) 20.0 - 26.0 mmol/L [facility] Carbon Dioxide, POC 16(L) 22 - 31 mmol/L [facility] Sodium, POC 116(Critic al) 135 - 145 mmol/L [facility] POC Potassium 3.1(L) 3.5 - 5.0 mmol/L [facility] Ionized Calcium, POC 1.04(L) 1.15 - 1.33 mmol/L [facility] POC Hematocrit 39.0 34.0 - 45.0 % [facility] POC Calc Hgb 13.3 11.2 - 15.7 g/dL [facility] Blood 03/19/2024 1:26 AM EDT 03/19/2024 1:26 AM EDT Kathryn Walker MD CHEMISTRY ORDERABL ES [facility] [place] [address] documented in this encounter Visit Diagnoses Not [...] PRN, Starting on 03/19/24 at 0606, Until 03/22/24 at 1411, Pain, Maximum dose of acetaminophen [...] Oral, 3 TIMES DAILY PRN, Starting on Thu03/20/24 at 1137, Until Thu03/22/24 at 1411, Heartburn, [...] Lopez RN) 0835 (Given - Provider: Izaiah Jimenez, TOSHA) 0857 (Given - Provider: Lubna Cruz, TOSHA) [...] Loreta Lopez RN)1759 (Given - Provider: Loreta Lopez, TOSHA) 0834 (Given - Provider: Izaiah Jimenez RN)1640 (Given - Provider: Izaiah Jimenez RN) 0857 (Given - Provider: Lubna Cruz, TOSHA) clopidogreL (Plavix) tablet 75 mg 75 mg, Oral, DAILY, First dose on Thu03/19/24 at 0900, Until Discontinued, Routine 0801 (Given - Provider: Loreta W Rushing, RN) 0836 (Given - Provider: Izaiah Jimenez RN) 0857 (Given - Provider: Lubna Cruz, TOSHA) famotidine (Pepcid) tablet 20 mg (CANCELED) 20 [...] on Thu03/19/24 at 0600, Until Discontinued, Routine 0546 (Given [...] on Thu03/19/24 at 1715, Until Discontinued, Routine 0801 (Given - Provider: Loreta Lopez RN) 0836 (Given - Provider: Izaiah Jimenez, RN) 0858 (Given - Provider: Lubna Cruz, [...] other ordered pain medications are indicated., Routine 07 (Given - Provider: Loreta Lopez RN - [...] Routine documented in this encounter Care Teams [place] Room Worker Relationship Specialty Start Date End Date None None PCP - General 03/19/24 documented as of this encounter
--- OUTSIDE RECORDS SUMMARY | 2024-04-20 11:48 | XMS_ITS | Encounter Summary ---
Author Organization [facility] Address [facility] [place] [address] Care Team Providers Care Blow Torch Operator Name Role Phone None Primary Care Provider Unavailabl e Reason for Referral * Consultation (Routine) - Authorized Specialty Diagnoses / Procedures Referred By Contac t Referred To Contact Cardiology Diagnoses ST elevation myocardial infarction involving left anterior descending (LAD) coronary artery Kathryn Walker MD [facility] [place] [address] [facility] [address] [place] [address] Referral ID Status Reason Start Date Expiration Date Visits Requested Visits Authorized [id number] Authorized Consult, Test & Treat 03/22/2024 09/18/2024 1 1 * Consultation (Routine) - Authorized Specialty Diagnoses / Procedures Referred By Contac t Referred To Contact Cardiology Diagnoses ST elevation myocardial infarction involving left anterior descending (LAD) coronary artery Horace Hancock MD [facility] [place] [address] Cardiac Rehab, [address] [place] [address] Referral ID Status Reason Start Date Expiration Date Visits Requested Visits Authorized [id number] Authorized Consult, Test & Treat 03/22/2024 09/18/2024 36 36 Reason for Visit * Auth/Cert (Routine) Specialty Diagnoses / Procedures Referred By Contac t Referred To Contact Diagnoses Acute ST elevation myocardial infarction (STEMI) due to occlusion of left anterior descending (LAD) coronary artery stemi Procedures EMERGENCY IPI Destin Ambrosio MD [facility] [place] [address] [facility] Referral ID Status Reason Start Date Expiration Date Visits Re quested Visits Authorized [id number] 1 1 Encounter Details Date Type Department Care Team (Latest Contact Info) Description 03/19/2024 12:37 AM EDT - 03/22/2024 12:10 PM EDT Hospital Encounter Heart and Vascular Unit Level 4 Wing A at [place] [phone] Destin Ambrosio MD [facility] [place] [address] Horace Hancock MD [facility] [place] [address] Kathryn Walker MD [facility] [place] [address] ST elevation myocardial infarction involving left anterior descending (LAD) coronary artery; Chest pain, unspecified type Discharge Disposition: Home Social History Tobacco Use Types Packs/Day Years Used Date Smoking Tobacco: Former Smokeless Tobacco: Never Alcohol Use Standard Drinks/Week Comments Yes 14 (1 standard drink = 0.6 oz pu re alcohol) [facility] Utilities Answer Date Recorded In the past 12 months has [facility], gas, oil, or water [employer] threatened to shut off services in your [...] any time in the past 12 m [place], were you homeless or living in a [...] Isa Ro Patient Age: 59 y.o. 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 [...] given mildly reduced LVEF [ ] f/u [facility] cardiology scheduled. [facility] cardiology referral sent Inpatient Provider Contact Information: Kathryn Walker MD [phone] For questions regarding this document or issues relating to this hospitalization on the Medical Service, please contact your inpatient physician through the [facility] Agitator Operator . Issues afterhours and on weekends will [...] 03/19/2024 8:37 AM) Result Value WORKSTATION ID [id number] Narrative EXAMINATION: XR CHEST ONE VIEW CLINICAL [...] who have questions please contact the health career development specialist that requested your imaging first. Cardiac Catheterization (Exam End: 03/19/2024 1:36 AM) Narrative [facility] Cardiac Catheterization/Intervention Report Patient Name: Isa Ro Procedure Date: 03/19/2024 A #: [id number] Primary Physician: Ramo Roy Case #: [id number] File Name: [id number] Catheterization Order Number: [id number] [facility] Final Report [place], [place] Patient Name: Isa Ro ID#: [id number] : 1965 Procedure Date: March 19, 2024 [...] was designated as ASA Class IV. The [facility] clinical frailty scale is 3: Managing Well. Diagnostic Tests: Prior Coronary Angiography: Prior coronary angiography was performed on 12/15/2014. Electrocardiography: EKG was assessed by ECG. EKG was Abnormal. EKG showed ST Deviation >= 0.5 mm and other abnormality. Medications Prior to Procedure: Aspirin. Indications for Diagnostic Cath: The priority of the diagnostic procedure was Emergent. The indication for the dental lab technician visit is ACS less than [...] 3.5 guiding catheter and a 3.5 Fr Platinum Eye Algaaciq 20 Mhz using auto 1 mm/sec pullback. [...] priority for the procedure was Emergent. The [facility] indication for the procedure was STEMI-Immediate [...] atmospheres. A premounted 3.00 x 08 mm [place] Cass (JAHAIRA) was deployed with a maximum inflation pressure of 12 atmospheres. Another stent insertion was accomplished through a 6 Fr. EBU 3.5 guide. A premounted 2.00 x 08 mm Alberto Cass (JAHAIRA) was deployed. The final outcome was [...] dose administered prior to arrival in the dental lab technician. Recommended anti-platelet/anti-thrombotic regimen: Start aspirin 81 mg daily now and continue for indefinitely. Start clopidogrel 75 mg daily now and continue for 12 months then stop. These recommendations are made at the time of the intervention. Patient and provider preferences or a changing clinical situation may require modification of this regimen. Consult [facility] Interventional Cardiology for questions. The 1 year [...] against any medical treatment. Consult http://tools.acc.org/DAPTriskapp/#!/content/calculator/ or [facility] Interventional Cardiology for questions Conclusions: * One [...] decreased and new wall motion abnormalities. Procedure Complete-[id number]. Image enhancement Definity was used for left [...] prior to speaking with Dr. Herrera, on-call copper etcher at [facility]. She was subsequently transferred directly to the [facility] dental lab technician where coronary angiography revealed a [...] away. Stay on the phone. The emergency hardboard coating machine operator will tell you what to [...] of 8AM-5PM please call the Cardiology Clinic [phone] to speak with a nurse. All other hours please call the Hospital Agitator Operator [phone] and ask to speak to the cardiovascular hospitalist on-call. Return to work: One week Follow up Appointments: Doctor Where Phone # Date Time PCP MELECIO Polanco [address] [place], [place] [address] 04/04/24 7:55 AM Destaticizer Feeder Herlinda Weaver PA-C [facility] Cardiology Clinic [phone] 05/09/24 10:40 AM (pleasearrive by 10:20 AM) *A referral has also been placed to [facility] cardiology, though you will need to follow-up with them regarding scheduling appointments at [phone] General Instructions None Future Appointments and Orders Future Appointments and Orders Future Appointments Provider Department Dept Phone 05/09/2024 10:40 AM Herlinda Weaver PA Cardiology at [facility] Arrive at: Digital Associate Media Director Area [phone] Future Orders Complete By Expires Referral to Cardiac Rehab [[id number] Custom] As directed Process Instructions: If no progress note charted, please enter Clinical details in comments. Scheduling Instructions: Questions: My question or request is: s/p STEMI- cardiac rehab at [facility] Referral to Cardiology [REF12 Custom] As directed Process Instructions: If no progress note charted, please enter Clinical details in comments. Scheduling Instructions: Questions: My question or request is: s/p STEMI Discharge References/Attachments None Greater than 30 minutes was spent on this discharge including documentation, [id number] time withthe patient, patient education, order checker packer processer, coordination with pharmacy and other patient care. [...] away. Stay on the phone. The emergency hardboard coating machine operator will tell you what to [...] cardiac rehab has also been placed to [facility]. Call your doctor if: Chest pain, dyspnea, pain or swelling in legs occurs, or for weight gain of 2 pounds overnight or 5pounds in 5 days. If you have non-emergent questions, prior to your follow-up visit call: Thursday-Thursday between the hours of 8AM-5PM please call the Cardiology Clinic [phone] to speak with a nurse. All other hours please call the Hospital Agitator Operator [phone] and ask to speak to the cardiovascular hospitalist on-call. Return to work: One week Follow up Appointments: Doctor Where Phone # Date Time PCP MELECIO Polanco [address] [place], [place] [address] 04/04/24 7:55 AM Destaticizer Feeder Herlinda Weaver PA-C [facility] Cardiology 4A Clinic [phone] 05/09/24 10:40 AM (pleasearrive by 10:20 AM) *A referral has also been placed to [facility] cardiology, though you will need to follow-up with them regarding scheduling appointments at [phone] documented in this encounter Medications at Time [...] agreed to participate in cardiac rehab at [facility] following discharge Review of Systems: [...] to have resulted in 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 I asked [...] Mcbride MD - 03/19/2024 2:50 AM EDT [facility] TeleICU Initial Assessment Note I established audio/visual [...] => BiPAP started Following procedure, transferred to [facility] - able to be weaned to [...] 10:00 PM Hospital to which patient presented: [facility] If Hospital to which patient presented= [facility]: ED via EMS Date and Time of [...] Not contraindicated Plan STEMI Alert called: Yes Timber Bucker Activated by: Transportation Department Supervisor Initial Disposition: Admit Timber Bucker documented in this encounter H&P Notes * Ganesh Nguyen MD - 03/19/2024 1:11 AM EDT CARDIOLOGY ADMISSION H&P Patient Name: Isa Ro Service: Cardiology Team Responsible Attending: Destin Ambrosio MD PCP: Pretty Avrey MD (Inactive) Chief Complaint: Chest Pain Active [...] prior to speaking with Dr. Herrera, on-call copper etcher at [facility]. 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 She was also a bit [...] Cardiopulmonary Resuscitation - Inpatient Ganesh Nguyen MD Transportation Department Supervisor [id number] documented in this encounter Miscellaneous Notes [...] Care: Contact information for follow-up Cardiac Rehab, [facility] [address] [facility] [address] Cardiology, [facility] [address] [facility] [address] Transportation: family or friend will provide Functional [...] 03/21/2024 4:02 PM EDT Patient completed a [place] advance directive. Patient identified her sister Stacia [...] N/A ; Prescription Coverage: Yes Preferred Pharmacy: [place], [place] - [address] [place] [address] [address] [place] [address] [address] [facility] [address] [id number] - [address] [place] [address] [facility] - [facility], [place] - [address] [facility] [address] [facility] [address] Advance Care Planning: Attempt Cardiopulmonary Resuscitation - Inpatient <no information> -Advanced Directive: No, need to discuss (RS referral sent for AD discussion) Current Functional Ability: Assistive Person Functional Status Prior to Admission: Independent Home Environment: Others in the home: child(lucian), minor (lives with her 15yo son). Current Living Arrangements: home/apartment/condo. Accessibility Concerns:house with 3 floors and 2 [address]. Current DME: none [address] [facility] [id number] Social & Family Supports: All names listed below confirmed with patient as current and correct Extended Emergency Contact Information Primary Emergency Contact: Tiffany Ro, [facility] Mobile Relation: Mother Current Care Provided by: [...] RS for AD discussion today. Registered Nurse Congregational Care Pastor / Mail Processing Machine Operator will continue to follow patient???s progress and [...] in an outpatient cardiac rehabilitation program at [facility] was discussed. Patient agrees to [...] Operative Note Patient Name: Isa Ro : [id number] MR#: [id number] Case Date: 03/19/2024 Surgeon: Surgeons and Role: [...] 10:40 AM EDT Office Visit Cardiology at [address] [address] Herlinda Weaver PA [facility] [place] [address] Scheduled Referrals Name Type Priority Associated Diagnoses [...] Routine 2:20 AM EDT BASIC METABOLIC PANEL Routine 03/19/2024 2:20 AM EDT POINT OF CARE BLOOD GAS HISTORICAL Routine 03/19/2024 1:41 AM EDT CARDIAC CATHETERIZATION Routine 03/19/20 1:36 AM EDT POINT OF CARE BLOOD GAS HISTORICAL Routine 03/19/2024 1:26 AM EDT documented in this encounter Results * (ABNORMAL) Differential, Automated (03/22/2024 5:06 AM EDT) Neutrophil % 71.6 % [facility] Neutrophil Absolute 8.34(H) 1.70 - 6.10 x10(3)/[facility] Lymph % 17.4 % [facility] Lymphocytes Abs 2.0 0.9 - 3.2 x10(3)/[facility] Monocyte % 8.2 % [facility] Monocyte Abs 1.0(H) 0.3 - 0.9 x10(3)/[facility] Eos % 2.2 % [facility] Eosinophils Abs 0.3 0.0 - 0.4 x10(3)/[facility] Basophil % 0.3 % [facility] Baso Absolute 0.0 0.0 - 0.1 x10(3)/[facility] Immature Gran % 0.30 % [facility] Comment: Immature granulocytes(IG's)percentage and absolute count will include metamyelocytes, myelocytes, and promyelocytes. Blood smears from CBCs yielding IG's will be scanned manually for concordance. If this scan disagrees with the automated IG or if promyelocytes are noted, a manual differential will be performed. Immature Gran Absolute 0.03 0.00 - 0.04 x10(3)/[facility] Blood 03/22/2024 5:06 AM EDT 03/22/2024 5:12 AM EDT Narrative Resulting Agency Comment Spec In Lab Horace Hancock MD HEMATOLOGY ORDERABLE S [facility] [place] [address] * (ABNORMAL) Hemogram (03/22/2024 5:06 AM EDT) White Blood Cell 11.6(H) 4.0 - 9.5 x10(3)/[facility] Red Blood Cell 4.80 4.00 - 5.21 x10(6)/mc L [facility] Hemoglobin 13.5 11.7 - 15.5 g/dL [facility] Hematocrit 40.3 35.7 - 45.8 % [facility] Mean Cell Volume 84.0 82.6 - 94.4 fL [facility] Mean Cell Hemoglobin 28.1 27.1 - 32.0 pg [facility] Mean Cell Hemoglobin Concentration 33.5 31.7 - 35.0 g/dL [facility] Platelet 232 145 - 357 x10(3)/mc L [facility] RDW Standard Deviation 42.2 37.0 - 46.0 fL [facility] RDW coefficient of variation 13.5 11.5 - 14.1 % [facility] Mean Platelet Volume 9.7 7.6 - 12.9 fL [facility] NRBC% auto 0.0 % [facility] NRBC Absolute 0.000 0.000 - 0.000 x10(3)/mc L [facility] Blood 03/22/2024 5:06 AM EDT 03/22/2024 5:12 AM EDT Narrative Resulting Agency Comment Spec In Lab Horace Hancock MD HEMATOLOGY ORDERABLE S [facility] [place] [address] * Basic Metabolic Panel (non-fasting) (03/22/2024 5:06 AM EDT) Glucose 107 65 - 199 mg/dL [facility] Comment:Diabetes: >=200 mg/d L plus symptoms Blood Urea Nitrogen 18 8 - 18 mg/dL [facility] Creatinine 0.87 0.70 - 1.20 mg/dL [facility] Sodium 138 135 - 145 mmol/L [facility] Potassium 4.1 3.5 - 5.0 mmol/L [facility] Comment: Please note: ??Patients with WBC >100,000 may have falsely elevated Potassium levels. ??For accurate Potassium quantification in these patients send serum separator tube (gold top) for subsequent determinations. ??Contact the Clinical Chemistry Laboratory if there are any questions. Chloride 104 98 - 107 mmol/L [facility] Carbon Dioxide 24 22 - 31 mmol/L [facility] Anion Gap 10 5 - 15 mmol/L [facility] Calcium 9.2 8.5 - 10.5 mg/dL [facility] Est Glomerular Filtration Rate 76 >=60 mL/min/1. 73 m?? [facility] Comment: This patient's [...] CHEMISTRY ORDERABLES Performing Organization Address [facility] Co de Phone Number [facility] [place] [address] * Magnesium (03/22/2024 5:06 AM EDT) Magnesium 0.90 0.69 - 1.07 mmol/L [facility] Blood 03/22/2024 5:06 AM EDT 03/22/2024 5:12 AM EDT Narrative Resulting Agency Comment Spec In Lab Destin Ambrosio MD CHEMISTRY ORDERABLES [facility] [place] [address] * (ABNORMAL) Differential, Automated (03/21/2024 2:57 AM EDT) [facility] Neutrophil % 63.0 % [facility] Neutrophil Absolute 6.70(H) 1.70 - 6.10 x10(3)/ L [facility] Lymph % 24.9 % [facility] Lymphocytes Abs 2.6 0.9 - 3.2 x10(3)/ L [facility] Monocyte % 8.7 % [facility] Monocyte Abs 0.9 0.3 - 0.9 x10(3)/ L [facility] Eos % 2.8 % [facility] Eosinophils Abs 0.3 0.0 - 0.4 x10(3)/[facility] Basophil % 0.3 % [facility] Baso Absolute 0.0 0.0 - 0.1 x10(3)/ L [facility] Immature Gran % 0.30 % [facility] Comment: Immature granulocytes(IG's)percentage and absolute count will include metamyelocytes, myelocytes, and promyelocytes. Blood smears from CBCs yielding IG's will be scanned manually for concordance. If this scan disagrees with the automated IG or if promyelocytes are noted, a manual differential will be performed. Immature Gran Absolute 0.03 0.00 - 0.04 x10(3)/ L [facility] Blood 03/21/2024 2:57 AM EDT 03/21/2024 3:03 AM EDT Narrative Resulting Agency Comment Spec In Lab Horace Hancock MD HEMATOLOGY ORDERABLE S [facility] [place] [address] * (ABNORMAL) Hemogram (03/21/2024 2:57 AM EDT) [facility] White Blood Cell 10.6(H) 4.0 - 9.5 x10(3)/[facility] Red Blood Cell 4.54 4.00 - 5.21 x10(6)/[facility] Hemoglobin 12.8 11.7 - 15.5 g/dL [facility] Hematocrit 38.2 35.7 - 45.8 % [facility] Mean Cell Volume 84.1 82.6 - 94.4 fL [facility] Mean Cell Hemoglobin 28.2 27.1 - 32.0 pg [facility] Mean Cell Hemoglobin Concentration 33.5 31.7 - 35.0 g/dL [facility] Platelet 242 145 - 357 x10(3)/[facility] RDW Standard Deviation 42.4 37.0 - 46.0 [facility] RDW coefficient of variation 13.7 11.5 - 14.1 % [facility] Mean Platelet Volume 9.5 7.6 - 12.9 fL [facility] NRBC% auto 0.0 % [facility] NRBC Absolute 0.000 0.000 - 0.000 x10(3)/[facility] Blood 03/21/2024 2:57 AM EDT 03/21/2024 3:03 AM EDT Narrative Resulting Agency Comment Spec In Lab Horace Hancock MD HEMATOLOGY ORDERABLE S [facility] [place] [address] * Basic Metabolic Panel (non-fasting) (03/21/2024 2:57 AM EDT) [facility] Glucose 98 65 - 199 mg/dL [facility] Comment:Diabetes: >=200 mg/d L plus symptoms Blood Urea Nitrogen 15 8 - 18 mg/dL [facility] Creatinine 0.82 0.70 - 1.20 mg/dL [facility] Sodium 144 135 - 145 mmol/L [facility] Potassium 4.2 3.5 - 5.0 mmol/L [facility] Comment: Please note: ??Patients with WBC >100,000 may have falsely elevated Potassium levels. ??For accurate Potassium quantification in these patients send serum separator tube (gold top) for subsequent determinations. ??Contact the Clinical Chemistry Laboratory if there are any questions. Chloride 107 98 - 107 mmol/L [facility] Carbon Dioxide 25 22 - 31 mmol/L [facility] Anion Gap 12 5 - 15 mmol/L [facility] Calcium 9.2 8.5 - 10.5 mg/dL [facility] Est Glomerular Filtration Rate 82 >=60 mL/min/1. 73 m?? [facility] Comment: This patient's [...] In Lab Horace Hancock MD CHEMISTRY ORDERABLES [facility] [place] [address] * Magnesium (03/21/2024 2:57 AM EDT) Magnesium 0.91 0.69 - 1.07 mmol/L [facility] Blood 03/21/2024 2:57 AM EDT 03/21/2024 3:03 AM EDT Narrative Resulting Agency Comment Spec In Lab Destin Ambrosio MD CHEMISTRY ORDERABLES Performing Organization Address [facility] Co de Phone Number [facility] [place] [address] * Metanephrines, Fractionated Free, plasma (03/21/2024 2:57 AM EDT) Normetanephrine, Free (JANUARY) 0.47 <0.90 nmol/L [facility] Comment: Test Performed by: [facility] [place] [address] Car Trimmer: Chasity Hernandez Ph.D.; CLIA# [id number] Metanephrine, Free (JANUARY) <0.20 <0.50 nmol/L [facility] Comment: ADDITIONAL INFORMATION This test was developed and its performance characteristics determined by [facility] in a manner consistent with CLIA requirements. This test has not been cleared or approved by the U.S. Food and Drug Administration. Test Performed by: [facility] [place] [address] Car Trimmer: Chasity Hernandez Ph.D.; CLIA# [id number] Blood 03/21/2024 2:57 AM EDT 03/21/2024 11:29 AM EDT Narrative Resulting Agency Comment Spec In Lab Horace Hancock MD LAB SEND OUT ORDERAB LES Performing Organization Address City/[facility]/ZIP Co de Phone Number [facility] [place] [address] * Iron and TIBC (03/20/2024 10:38 AM EDT) Iron 57 30 - 150 mcg/dL [facility] TIBC 278 250 - 450 mcg/dL [facility] Iron Saturation 21 20 - 50 % [facility] Blood Venous Draw / Unknown 03/20/2024 10:38 AM EDT 03/20/2024 10:52 AM EDT Narrative Resulting Agency Comment Spec In Lab Horace Hancock MD CHEMISTRY ORDERABLES [facility] [place] [address] * (ABNORMAL) Differential, Automated (03/20/2024 10:38 AM EDT) Neutrophil % 73.1 % [facility] Neutrophil Absolute 9.60(H) 1.70 - 6.10 x10(3)/[facility] LABORATORY Lymph % 17.3 % [facility] Lymphocytes Abs 2.3 0.9 - 3.2 x10(3)/[facility] LABORATORY Monocyte % 7.5 % [facility] Monocyte Abs 1.0(H) 0.3 - 0.9 x10(3)/[facility] LABORATORY Eos % 1.5 % [facility] Eosinophils Abs 0.2 0.0 - 0.4 x10(3)/[facility] LABORATORY Basophil % 0.3 % [facility] Baso Absolute 0.0 0.0 - 0.1 x10(3)/[facility] LABORATORY Immature Gran % 0.30 % [facility] Comment: Immature granulocytes(IG's)percentage and absolute count will include metamyelocytes, myelocytes, and promyelocytes. Blood smears from CBCs yielding IG's will be scanned manually for concordance. If this scan disagrees with the automated IG or if promyelocytes are noted, a manual differential will be performed. Immature Gran Absolute 0.04 0.00 - 0.04 x10(3)/ L [facility] Blood 03/20/2024 10:3 8 AM EDT 03/20/2024 10:47 AM EDT Narrative Resulting Agency Comment Spec In Lab Horace Hancock MD HEMATOLOGY ORDERABLE S Performing Organization Address City/[facility]/ZIP Co de Phone Number [facility] [place] [address] * (ABNORMAL) Hemogram (03/20/2024 10:38 AM EDT) White Blood Cell 13.2(H) 4.0 - 9.5 x10(3)/mc L [facility] Red Blood Cell 4.66 4.00 - 5.21 x10(6)/mc L [facility] Hemoglobin 13.0 11.7 - 15.5 g/dL [facility] Hematocrit 38.7 35.7 - 45.8 % [facility] Mean Cell Volume 83.0 82.6 - 94.4 fL [facility] Mean Cell Hemoglobin 27.9 27.1 - 32.0 pg [facility] Mean Cell Hemoglobin Concentration 33.6 31.7 - 35.0 g/dL [facility] Platelet 238 145 - 357 x10(3)/mc L [facility] RDW Standard Deviation 41.7 37.0 - 46.0 [facility] LABORATORY RDW coefficient of variation 13.8 11.5 - 14.1 % [facility] Mean Platelet Volume 9.8 7.6 - 12.9 fL [facility] NRBC% auto 0.0 % [facility] NRBC Absolute 0.000 0.000 - 0.000 x10(3)/mc L [facility] Blood 03/20/2024 10:3 8 AM EDT 03/20/2024 10:47 AM EDT Narrative Resulting Agency Comment Spec In Lab Horace Hancock MD HEMATOLOGY ORDERABLE S Performing Organization Address City/[facility]/ZIP Co de Phone Number [facility] [place] [address] * Magnesium (03/20/2024 10:38 AM EDT) Magnesium 0.88 0.69 - 1.07 mmol/L [facility] Blood 03/20/2024 10:3 8 AM EDT 03/20/2024 10:47 AM EDT Narrative Resulting Agency Comment Spec In Lab Horace Hancock MD CHEMISTRY ORDERABLES [facility] [place] [address] * Basic Metabolic Panel (non-fasting) (03/20/2024 10:38 AM EDT) Glucose 108 65 - 199 mg/dL [facility] Comment:Diabetes: >=200 mg/d L plus symptoms Blood Urea Nitrogen 11 8 - 18 mg/dL [facility] Creatinine 0.82 0.70 - 1.20 mg/dL [facility] Sodium 137 135 - 145 mmol/L [facility] Potassium 4.3 3.5 - 5.0 mmol/L [facility] Comment: Please note: ??Patients with WBC >100,000 may have falsely elevated Potassium levels. ??For accurate Potassium quantification in these patients send serum separator tube (gold top) for subsequent determinations. ??Contact the Clinical Chemistry Laboratory if there are any questions. Chloride 101 98 - 107 mmol/L [facility] Carbon Dioxide 22 22 - 31 mmol/L [facility] Anion Gap 14 5 - 15 mmol/L [facility] Calcium 9.0 8.5 - 10.5 mg/dL [facility] Est Glomerular Filtration Rate 82 >=60 mL/min/1. 73 m?? [facility] Comment: This patient's [...] Hancock MD CHEMISTRY ORDERABLES Performing Organization Address City/[facility]/ZIP Co de Phone Number [facility] [place] [address] * Magnesium (03/19/2024 11:01 PM EDT) Magnesium 0.96 0.69 - 1.07 mmol/L [facility] Blood Venous Draw / Unknown 03/19/2024 11:01 PM EDT 03/19/2024 11:06 PM EDT Narrative Resulting Agency Comment Spec In Lab Horace Hancock MD CHEMISTRY ORDERABLES Performing Organization Address City/[facility]/ZIP Co de Phone Number [facility] [place] [address] * (ABNORMAL) Troponin (03/19/2024 11:01 PM EDT) Troponin-T, High Sensitivity 2,406(H) <=14 ng/L [facility] Comment: This patient's [...] troponin value can be found in the [facility] Laboratory Test Catalog Troponin - [facility] Laboratory Test Catalog Reference: Fourth [place] Definition of Myocardial Infarction. Journal of the [place] [employer] 2018;72:0106-9667 Blood 03/19/2024 11:0 1 PM EDT 03/19/2024 11:05 PM EDT Narrative Resulting Agency Comment Spec In Lab Franky Mead MD CHEMISTRY ORDERABLE S [facility] [place] [address] * (ABNORMAL) Troponin (03/19/2024 8:40 PM EDT) Troponin-T, High Sensitivity 2,586(H) <=14 ng/L [facility] Comment: This patient's [...] troponin value can be found in the [facility] Laboratory Test Catalog Troponin - [facility] Test Catalog Reference: Fourth [place] Definition of Myocardial Infarction. Journal of the [place] [employer] 2018;72:7755-7466 Blood 03/19/2024 8:40 PM EDT 03/19/2024 8:45 PM EDT Narrative Resulting Agency Comment Spec In Lab Ganesh Nguyen MD CHEMISTRY ORDERAB LES [facility] [place] [address] * EKG 12 Lead (03/19/2024 8:32 PM EDT) Ventricular rate 70 BPM MUSE SYSTEM Atrial Rate 70 BPM MUSE SYSTEM P-R Interval 158 ms MUSE SYSTEM QRS Duration 78 ms MUSE SYSTEM Q-T Interval 470 ms MUSE SYSTEM QTC Calculated (Bezet) 507 ms MUSE SYSTEM Calculated P [place] 62 degrees MUSE SYSTEM Calculated R [place] 42 degrees MUSE SYSTEM Calculated T [place] -158 degrees MUSE SYSTEM INTERPRETATION Normal sinus rhythm Poor R wave progression T wave abnormality, consider lateral ischemia Prolonged QT Abnormal ECG When compared with ECG of 19-MAR-2024 17:27, No significant change was found Confirmed by MD Ambrosio David ([id number]) on 03/23/2024 8:10:58 AM MUSE SYSTEM 03/19/2024 [...] (Bezet) 496 ms MUSE SYSTEM Calculated P [place] 80 degrees MUSE SYSTEM Calculated R [place] 87 degrees MUSE SYSTEM Calculated T [place] -96 degrees MUSE SYSTEM INTERPRETATION Normal sinus rhythm T wave abnormality, consider lateral ischemia Prolonged QT Abnormal ECG When compared with ECG of 19-MAR-2024 02:23, Non-specific change in ST segment in Anterior leads T wave inversion more evident in Inferior leads T wave inversion now evident in Anterolateral leads Confirmed by MD Ambrosio David ([id number]) on 03/23/2024 8:10:45 AM MUSE SYSTEM 03/19/2024 5:27 PM EDT 03/23/2024 8:10 AM EDT Unknown ECG ORDERABLES MUSE SYSTEM * (ABNORMAL) Troponin (03/19/2024 2:45 PM EDT) Troponin-T, High Sensitivity 3,792(H) <=14 ng/L [facility] Comment: This patient's [...] troponin value can be found in the [facility] Laboratory Test Catalog Troponin - [facility] Test Catalog Reference: Fourth [place] Definition of Myocardial Infarction. Journal of the [place] [employer] 2018;72:9451-2221 Blood 03/19/2024 2:45 PM EDT 03/19/2024 2:54 PM EDT Narrative Resulting Agency Comment Spec In Lab Horace Hancock MD CHEMISTRY ORDERABLES Performing Organization Address City/[facility]/ZIP Co de Phone Number [facility] [place] [address] * ECHO COMPLETE W CONTRAST (03/19/2024 10:53 AM EDT) Anatomical Region Laterality Modality Cardiac Other 03/19/2024 9:03 AM EDT Narrative 03/19/2024 12:12 PM EDT [address] [place] [address] ? Echocardiogram Report Name: ISA RO Chuy ?Study Date: 03/19/2024 09:03 AMBP: 129/68 mmHg ? Patient Location: 4A : 1965 ? Height: 158 cm ? Account: [id number] Age: 59 yrs ? Weight: 57 kg Gender: Female ?BSA: 1.6 m2 Ordering Physician: GANESH NGUYEN Referring Physician: GANESH NGUYEN Performed By: PEREZ Carlos Reason For Study: STEMI involving LAD Exam Location: [facility]. Interpretation Summary Normal left ventricle size with mildly reduced LV function. LV ejection fraction 49%. LAD territory wall motion abnormality, predominantly involving the LV apex. No LV thrombus visualized with echo contrast. Normal right ventricle. No significant valvular abnormalities. Compared with prior echo dated 08/28/23, LV function has now decreased and new wall motion abnormalities. Procedure Complete-[id number]. Image enhancement Definity was used for left [...] Note Destin Ambrosio MD - 03/19/2024 [address] [place] [address] Echocardiogram Report Name: ISA RO Study Date: 409:03 AMBP: 129/68 mmHg Patient Location: : 1965 Height: 158 cm Account: [id number] Age: 59 yrs Weight: 57 kg Gender: Female BSA: 1.6 m2 Ordering Physician: GANESH NGUYEN Referring Physician: GANESH NGUYEN Performed By: PEREZ Carlos Reason For Study: STEMI involving LAD Exam Location: [facility]. Interpretation Summary Normal left ventricle size with mildly reduced LV function. LV ejectionfraction 49%. LAD territory wall motion abnormality, predominantly involving the LVapex. No LV thrombus visualized with echo contrast. Normal right ventricle. No significant valvular abnormalities. Compared with prior echo dated 08/28/23, LV function has now decreased andnew wall motion abnormalities. Procedure Complete-[id number]. Image enhancement Definity was used for left [...] View (03/19/2024 8:37 AM EDT) WORKSTATION ID [id number] RAD Anatomical Region Laterality Modality Chest N/A [...] who have questions please contact the health career development specialist that requested your imaging first. ? Electronically signed by: Isa Whitley MD, [facility] ??([phone]), at 03/19/2024 10:09 AM Narrative 03/19/2024 10:09 [...] patients who have questions please contactthe health career development specialist that requested your imaging first. Delores Jett MD IMG DX ORDERABLES * Hemoglobin A1c (03/19/2024 5:25 AM EDT) Hemoglobin A1c 5.6 4.3 - 5.6 % [facility] Comment: Reference Range: [...] Mellitus, Diabetes Care 2013; 36: Suppl. 1, E43-15 Estimated Average Glucose 114 mg/dL [facility] Blood Venous Draw / Unknown 03/19/2024 5:25 AM EDT 03/19/2024 3:52 PM EDT Narrative Resulting Agency Comment Spec In Lab Horace Hancock MD CHEMISTRY ORDERABLES [facility] [place] [address] * (ABNORMAL) Differential, Automated (03/19/2024 5:25 AM EDT) Neutrophil % 90.0 % [facility] Neutrophil Absolute 16.73(H) 1.70 - 6.10 x10(3)/[facility] LABORATORY Lymph % 5.2 % [facility] Lymphocytes Abs 1.0 0.9 - 3.2 x10(3)/[facility] LABORATORY Monocyte % 4.2 % [facility] Monocyte Abs 0.8 0.3 - 0.9 x10(3)/[facility] LABORATORY Eos % 0.0 % [facility] Eosinophils Abs 0.0 0.0 - 0.4 x10(3)/[facility] LABORATORY Basophil % 0.2 % [facility] Baso Absolute 0.0 0.0 - 0.1 x10(3)/[facility] LABORATORY Immature Gran % 0.40 % [facility] Comment: Immature granulocytes(IG's)percentage and absolute count will include metamyelocytes, myelocytes, and promyelocytes. Blood smears from CBCs yielding IG's will be scanned manually for concordance. If this scan disagrees with the automated IG or if promyelocytes are noted, a manual differential will be performed. Immature Gran Absolute 0.08(H) 0.00 - 0.04 x10(3)/[facility] LAB[facility] Blood 03/19/2024 5:25 AM EDT 03/19/2024 5:34 AM EDT Narrative Resulting Agency Comment Spec In Lab Ganesh Nguyen MD HEMATOLOGY ORDERA BLES [facility] [place] [address] * (ABNORMAL) Hemogram (03/19/2024 5:25 AM EDT) White Blood Cell 18.6(H) 4.0 - 9.5 x10(3)/[facility] Red Blood Cell 4.92 4.00 - 5.21 x10(6)/[facility] Hemoglobin 13.7 11.7 - 15.5 g/dL [facility] Hematocrit 40.6 35.7 - 45.8 % [facility] Mean Cell Volume 82.5(L) 82.6 - 94.4 fL [facility] Mean Cell Hemoglobin 27.8 27.1 - 32.0 pg [facility] Mean Cell Hemoglobin Concentration 33.7 31.7 - 35.0 g/dL [facility] Platelet 285 145 - 357 x10(3)/mc L [facility] RDW Standard Deviation 41.1 37.0 - 46.0 [facility] LABORATORY RDW coefficient of variation 13.6 11.5 - 14.1 % [facility] Mean Platelet Volume 9.5 7.6 - 12.9 [facility] LABORATORY NRBC% auto 0.0 % [facility] NRBC Absolute 0.000 0.000 - 0.000 x10(3)/mc L [facility] Blood 03/19/2024 5:25 AM EDT 03/19/2024 5:34 AM EDT Narrative Resulting Agency Comment Spec In Lab Ganesh Nguyen MD HEMATOLOGY ORDERA BLES [facility] [place] [address] * Lipid Panel (Reflex Direct LDL) (03/19/2024 5:25 AM EDT) Cholesterol, Total 324 mg/dL [facility] Comment: Desirable: ? <200 mg/dL Borderline High: 200-239 mg/dL Higher: ?>mj=705 mg/dL Triglyceride 200 mg/dL [facility] Comment: Normal: ?<150 mg/dL Borderline High: 150-199 mg/dL High: ?200-499 mg/dL Very High: ? >eu=073 mg/dL HDL Cholesterol 68 mg/dL [facility] Comment: Females: High Risk: <50 mg/dL Males: High Risk: <40 mg/dL LDL Cholesterol 216 mg/dL [facility] Comment: Desirable: ? <100 mg/dL Above Desirable: 100-129 mg/dL Borderline High: 130-159 mg/dL High: ?160-189 mg/dL Very High: ? >cf=962 mg/dL Lipid Interpretation See Note [facility] Comment: It is [...] individuals with atherosclerotic cardiovascular disease (ASCVD)or LDL >va=204 mg/dL, use a high-intensity statin (40-80 mg [...] Lab Ganesh Nguyen MD CHEMISTRY ORDERAB LES [facility] [place] [address] * (ABNORMAL) Troponin (03/19/2024 5:25 AM EDT) Troponin-T, High Sensitivity 1,276(H) <=14 ng/L [facility] Comment: This patient's [...] troponin value can be found in the [facility] Laboratory Test Catalog Troponin - [facility] Test Catalog Reference: Fourth [place] Definition of Myocardial Infarction. Journal of the [place] [employer] 2018;72:3022-0845 Blood 03/19/2024 5:25 AM EDT 03/19/2024 5:34 AM EDT Narrative Resulting Agency Comment Spec In Lab Ganesh Nguyen MD CHEMISTRY ORDERAB LES Performing Organization Address [facility] Co de Phone Number [facility] [place] [address] * APTT (03/19/2024 5:25 AM EDT) Partial Thromboplastin Time 29 25 - 37 sec [facility] Comment: The PTT [...] ORDERA BLES Performing Organization Address [facility] de Phone Number [facility] [place] [address] * Prothrombin Time (03/19/2024 5:25 AM EDT) Prothrombin Time 10.9 9.4 - 12.5 sec [facility] International Normalization Ratio 1.0 [facility] [...] BLES Performing Organization Address [facility] Co de Phone Number [facility] [place] [address] * (ABNORMAL) Comprehensive metabolic panel (non-fasting) (03/19/2024 5:25 AM EDT) Glucose 181 65 - 199 mg/dL [facility] Comment:Diabetes: >=200 mg/d L plus symptoms Blood Urea Nitrogen 14 8 - 18 mg/dL [facility] Creatinine 0.91 0.70 - 1.20 mg/dL [facility] Sodium 137 135 - 145 mmol/L [facility] Potassium 4.2 3.5 - 5.0 mmol/L [facility] Comment: Please note: ??Patients with WBC >100,000 may have falsely elevated Potassium levels. ??For accurate Potassium quantification in these patients send serum separator tube (gold top) for subsequent determinations. ??Contact the Clinical Chemistry Laboratory if there are any questions. Chloride 100 98 - 107 mmol/L [facility] Carbon Dioxide 22 22 - 31 mmol/L [facility] Anion Gap 15 5 - 15 mmol/L [facility] Calcium 8.7 8.5 - 10.5 mg/dL [facility] Protein, Total 7.2 6.1 - 8.0 g/dL [facility] Albumin 4.5 3.2 - 5.2 g/dL [facility] Aspartate Aminotransferase 95(H) 0 - 30 unit/L [facility] Comment:result rechecked-bz Alanine Aminotransferase 31(H) 0 - 30 unit/L [facility] Alkaline Phosphatase 70 35 - 105 unit/L [facility] Bilirubin, Total 0.5 0.2 - 1.3 mg/dL [facility] Est Glomerular Filtration Rate 72 >=60 mL/min/1. 73 m?? [facility] Comment: This patient's [...] LES Performing Organization Address [facility] Co de Phone Number [facility] [place] [address] * EKG 12 Lead (03/19/2024 2:23 AM EDT) Ventricular rate 67 BPM MUSE SYSTEM Atrial Rate 67 BPM MUSE SYSTEM P-R Interval 152 ms MUSE SYSTEM QRS Duration 78 ms MUSE SYSTEM Q-T Interval 500 ms MUSE SYSTEM QTC Calculated (Bezet) 528 ms MUSE SYSTEM Calculated P [place] 54 degrees MUSE SYSTEM Calculated R [place] 56 degrees MUSE SYSTEM Calculated T [place] 31 degrees MUSE SYSTEM INTERPRETATION Normal sinus rhythm Prolonged QT Abnormal ECG No previous ECGs available Confirmed by MD Ambrosio David ([id number]) on 03/23/2024 8:10:32 AM MUSE SYSTEM 03/19/2024 2:23 AM EDT 03/23/2024 8:10 AM EDT Ganesh Nguyen MD ECG ORDERABLES Performing Organization Address [facility] de Phone Number MUSE SYSTEM * (ABNORMAL) Differential, Automated (03/19/2024 2:20 AM EDT) Neutrophil % 89.8 % [facility] Neutrophil Absolute 15.44(H) 1.70 - 6.10 x10(3)/mc L [facility] Lymph % 6.4 % [facility] Lymphocytes Abs 1.1 0.9 - 3.2 x10(3)/mc L [facility] Monocyte % 2.9 % [facility] Monocyte Abs 0.5 0.3 - 0.9 x10(3)/mc L [facility] Eos % 0.1 % [facility] Eosinophils Abs 0.0 0.0 - 0.4 x10(3)/[facility] LABOR[facility] Basophil % 0.3 % [facility] Baso Absolute 0.0 0.0 - 0.1 x10(3)/[facility] LABORATORY Immature Gran % 0.50 % [facility] Comment: Immature granulocytes(IG's)percentage and absolute count will include metamyelocytes, myelocytes, and promyelocytes. Blood smears from CBCs yielding IG's will be scanned manually for concordance. If this scan disagrees with the automated IG or if promyelocytes are noted, a manual differential will be performed. Immature Gran Absolute 0.08(H) 0.00 - 0.04 x10(3)/[facility] Blood 03/19/2024 2:20 AM EDT 03/19/2024 2:59 AM EDT Narrative Resulting Agency Comment Spec In Lab Ganesh Nguyen MD HEMATOLOGY ORDERA BLES [facility] [place] [address] * (ABNORMAL) Hemogram (03/19/2024 2:20 AM EDT) White Blood Cell 17.2(H) 4.0 - 9.5 x10(3)/ L [facility] Red Blood Cell 4.70 4.00 - 5.21 x10(6)/ L [facility] Hemoglobin 13.3 11.7 - 15.5 g/dL [facility] Hematocrit 38.7 35.7 - 45.8 % [facility] Mean Cell Volume 82.3(L) 82.6 - 94.4 fL [facility] Mean Cell Hemoglobin 28.3 27.1 - 32.0 pg [facility] Mean Cell Hemoglobin Concentration 34.4 31.7 - 35.0 g/dL [facility] Platelet 281 145 - 357 x10(3)/mc L [facility] RDW Standard Deviation 41.0 37.0 - 46.0 fL [facility] RDW coefficient of variation 13.7 11.5 - 14.1 % [facility] Mean Platelet Volume 9.7 7.6 - 12.9 fL [facility] NRBC% auto 0.0 % [facility] NRBC Absolute 0.000 0.000 - 0.000 x10(3)/mc L [facility] Blood 03/19/2024 2:20 AM EDT 03/19/2024 2:59 AM EDT Narrative Resulting Agency Comment Spec In Lab Ganesh Nguyen MD HEMATOLOGY ORDERA BLES [facility] [place] [address] * (ABNORMAL) Troponin (03/19/2024 2:20 AM EDT) Troponin-T, High Sensitivity 960(H) <=14 ng/L [facility] Comment: This patient's [...] troponin value can be found in the [facility] Test Catalog Troponin - [facility] Test Catalog Reference: Fourth [place] Definition of Myocardial Infarction. Journal of the [place] [employer] 2018;72:4279-6209 Blood 03/19/2024 2:20 AM EDT 03/19/2024 2:59 AM EDT Narrative Resulting Agency Comment Spec In Lab Ganesh Nguyen MD CHEMISTRY ORDERAB LES Performing Organization Address [facility] de Phone Number [facility] [place] [address] * (ABNORMAL) APTT (03/19/2024 2:20 AM EDT) Partial Thromboplastin Time 123(Criti lewis) 25 - 37 sec [facility] Comment: Critical Result called by ?? YOSSIM CRITICAL Results read back by: ? chang [...] ORDERA BLES Performing Organization Address [facility] de Phone Number [facility] [place] [address] * Prothrombin Time (03/19/2024 2:20 AM EDT) Prothrombin Time 11.7 9.4 - 12.5 sec [facility] International Normalization Ratio 1.0 [facility] [...] BLES Performing Organization Address [facility] Co de Phone Number [facility] [place] [address] * (ABNORMAL) Hepatic Function Panel (03/19/2024 2:20 AM EDT) Pathologist [facility] Protein, Total 6.7 6.1 - 8.0 g/dL [facility] Albumin 4.3 3.2 - 5.2 g/dL [facility] Aspartate Aminotransferase 49(H) 0 - 30 unit/L [facility] Alanine Aminotransferase 26 0 - 30 unit/L [facility] Alkaline Phosphatase 67 35 - 105 unit/L [facility] Bilirubin, Total 0.4 0.2 - 1.3 mg/dL [facility] Bilirubin, Direct 0.1 0.0 - 0.3 mg/dL [facility] Blood 03/19/2024 2:20 AM EDT 03/19/2024 2:59 AM EDT Narrative Resulting Agency Comment Spec In Lab Ganesh Nguyen MD CHEMISTRY ORDERAB LES Performing Organization Address [facility] Co de Phone Number [facility] [place] [address] * (ABNORMAL) pro-Brain Natriuretic Peptide (03/19/2024 2:20 AM EDT) NT-proBNP 529(H) <=124 pg/mL [facility] Blood 03/19/2024 2:20 AM EDT 03/19/2024 2:59 AM EDT Narrative Resulting Agency Comment Spec In Lab Ganesh Nguyen MD CHEMISTRY ORDERAB LES Performing Organization Address [facility] Co de Phone Number [facility] [place] [address] * Phosphorus (03/19/2024 2:20 AM EDT) Pathologist [facility] Phosphorus 3.8 2.5 - 4.5 mg/dL [facility] Blood 03/19/2024 2:20 AM EDT 03/19/2024 2:59 AM EDT Narrative Resulting Agency Comment Spec In Lab Ganesh Nguyen MD CHEMISTRY ORDERAB LES Performing Organization Address [facility] Co de Phone Number [facility] [place] [address] * Magnesium (03/19/2024 2:20 AM EDT) Pathologist [facility] Magnesium 0.71 0.69 - 1.07 mmol/L [facility] Blood 03/19/2024 2:20 AM EDT 03/19/2024 2:59 AM EDT Narrative Resulting Agency Comment Spec In Lab Ganesh Nguyen MD CHEMISTRY ORDERAB LES Performing Organization Address [facility] Co de Phone Number [facility] [place] [address] * (ABNORMAL) Basic Metabolic Panel (non-fasting) (03/19/2024 2:20 AM EDT) Pathologist [facility] Glucose 160 65 - 199 mg/dL [facility] Comment:Diabetes: >=200 mg/d L plus symptoms Blood Urea Nitrogen 14 8 - 18 mg/dL [facility] Creatinine 0.88 0.70 - 1.20 mg/dL [facility] Sodium 137 135 - 145 mmol/L [facility] Potassium 3.9 3.5 - 5.0 mmol/L [facility] Comment: Please note: ??Patients with WBC >100,000 may have falsely elevated Potassium levels. ??For accurate Potassium quantification in these patients send serum separator tube (gold top) for subsequent determinations. ??Contact the Clinical Chemistry Laboratory if there are any questions. Chloride 100 98 - 107 mmol/L [facility] Carbon Dioxide 20(L) 22 - 31 mmol/L [facility] Anion Gap 17(H) 5 - 15 mmol/L [facility] Calcium 8.2(L) 8.5 - 10.5 mg/dL [facility] Est Glomerular Filtration Rate 75 >=60 mL/min/1. 73 m?? [facility] Comment: This patient's [...] Lab Ganesh Nguyen MD CHEMISTRY ORDERAB LES [facility] [place] [address] * (ABNORMAL) Point of Care Blood Gas Historical (03/19/2024 1:41 AM EDT) pH, POC 7.28(Criti lewis) 7.35 - 7.45 [facility] pCO2, POC 40 35 - 45 mmHg [facility] pO2, POC 84(L) 85 - 104 mmHg [facility] Base Excess, POC -8.0(L) -3.0 - 3.0 mmol/L [facility] Bicarbonate, POC 18.6(L) 20.0 - 26.0 mmol/L [facility] Carbon Dioxide, POC 20(L) 22 - 31 mmol/L [facility] Sodium, POC 134(L) 135 - 145 mmol/L [facility] Potassium 3.4(L) 3.5 - 5.0 mmol/L [facility] Ionized Calcium, POC 1.09(L) 1.15 - 1.33 mmol/L [facility] Hematocrit 38.0 34.0 - 45.0 % [facility] Calc Hgb 12.9 11.2 - 15.7 g/dL [facility] Blood 03/19/2024 1:41 AM EDT 03/19/2024 1:41 AM EDT Kathryn Walker MD CHEMISTRY ORDERABL ES Performing Organization Address City/State/[facility] Co de Phone Number [facility] [place] [address] * CARDIAC CATHETERIZATION (03/19/2024 1:36 AM EDT) Anatomical Region Laterality Modality Other Narrative 03/19/2024 7:19 AM EDT ?[facility] ? Cardiac Catheterization/Intervention Report ? Patient Name: Isa Ro. ? Procedure Date: 03/19/2024 ? A #: [id number] ? Primary Physician: Ramo Roy ? Case #: [id number] ? File Name: [id number] ? Catheterization Order Number: [id number] ? [facility] ? Final Report [place], [place] ? Patient Name: ? Isa A. Warnaar ? ID#: ?[id number] ? : ?1965 ? Procedure Date: ? March 19, 2024 ? Case #: ? [id number] ? Room: ? 6 ? Case Physician: [...] procedure was Emergent. The indication for ?the dental lab technician visit is ACS less than [...] ?3.5 guiding catheter and a 3.5 Fr Platinum Eye Algaaciq 20 Mhz using auto 1 ?mm/sec pullback. [...] ? A premounted 3.00 x 08 mm [place] (JAHAIRA) was deployed ? with a maximum inflation pressure of 12 atmospheres. ? Another stent insertion was accomplished through a 6 Fr. EBU ? 3.5 guide. ??A premounted 2.00 x 08 mm [place] (JAHAIRA) was ? deployed. ? The final [...] dose administered prior to arrival in the dental lab technician. ?Recommended anti-platelet/anti-thrombotic regimen: ?Start aspirin 81 mg daily now and continue for indefinitely. ?Start clopidogrel 75 mg daily now and continue for 12 months then stop. ?These recommendations are made at the time of the intervention. Patient ?and provider preferences or a changing clinical situation may require ?modification of this regimen. Consult [facility] Interventional Cardiology for ?questions. ?The 1 year [...] against any medical treatment. Consult ?http://tools.acc.org/DAPTriskapp/#!/content/calculator/ or [facility] ?Interventional Cardiology for questions ? Conclusions: ?* [...] Procedure Note Ramo Roy MD - 03/21/2024 [facility] Cardiac Catheterization/Intervention Report Patient Name: Isa Ro Procedure Date: 03/19/2024 A #: [id number] Primary Physician: Ramo Roy Case #: [id number] File Name: [id number] Catheterization Order Number: [id number] [facility] FinalReport [place], [place] Patient Name: Isa Leungannmarie ID#:[id number] :1965 Procedure Date: March 19, 2024 Case #: [id number] Room: 6 Case Physician: Ramo Roy M.D. Start: 00:55 Fellow: John Munroe M.D. Admission:03/18/2024 Referring Physician: Kay aRmanD. Procedures: * Coronary Angiography * Left Heart [...] patientwas designated as ASA Class IV. The [facility] clinical frailty scale is 3: Managing Well. Diagnostic Tests: Prior Coronary Angiography: Prior coronary angiography was performed on 12/15/2014. Electrocardiography: EKG was assessed by ECG. EKG was Abnormal. EKG showed STDeviation >= 0.5 mm and other abnormality. Medications Prior to Procedure: Aspirin. Indications for Diagnostic Cath: The priority of the diagnostic procedure was Emergent. Theindication for the dental lab technician visit is ACS less than [...] 3.5 guiding catheter and a 3.5 Fr Platinum Eye Algaaciq 20 Mhz usingauto 1 mm/sec pullback. Imaging [...] The priority for the procedure was Emergent.The [facility] indication for the procedure was STEMI-Immediate [...] The lesion was predilated with a 2.50mm OGBOWVS35 MM balloon with a maximum inflation pressure of 14atmospheres. A premounted 3.00 x 08 mm Alber[place] Cass (JAHAIRA) wasdeployed with a maximum inflation pressure of 12 atmospheres. Another stent insertion was accomplished through a 6 Fr.EBU 3.5 guide. A premounted 2.00 x 08 mm [place] Cass (JAHAIRA)was deployed. The final outcome was defined [...] dose administered prior to arrival in the dental lab technician. Recommended anti-platelet/anti-thrombotic regimen: Start aspirin 81 mg daily now and continue for indefinitely. Start clopidogrel 75 mg daily now and continue for 12 months thenstop. These recommendations are made at the time of the intervention.Patient and provider preferences or a changing clinical situation mayrequire modification of this regimen. Consult [facility] Interventional Cardiologyfor questions. The 1 year bleeding [...] or against any medical treatment.Consult http://tools.acc.org/DAPTriskapp/#!/content/calculator/ or [facility] Interventional Cardiology for questions Conclusions: * One [...] pH, POC 7.20(Criti lewis) 7.35 - 7.45 [facility] pCO2, POC 38 35 - 45 mmHg [facility] pO2, POC 74(L) 85 - 104 mmHg [facility] Base Excess, POC -14.0(L) -3.0 - 3.0 mmol/L [facility] Bicarbonate, POC 14.5(L) 20.0 - 26.0 mmol/L [facility] Carbon Dioxide, POC 16(L) 22 - 31 mmol/L [facility] Sodium, POC 116(Critic al) 135 - 145 mmol/L [facility] POC Potassium 3.1(L) 3.5 - 5.0 mmol/L [facility] Ionized Calcium, POC 1.04(L) 1.15 - 1.33 mmol/L [facility] POC Hematocrit 39.0 34.0 - 45.0 % [facility] POC Calc Hgb 13.3 11.2 - 15.7 g/dL [facility] Blood 03/19/2024 1:26 AM EDT 03/19/2024 1:26 AM EDT Kathryn Walker MD CHEMISTRY ORDERABL ES [facility] [place] [address] documented in this encounter Visit Diagnoses Diagnosis [...] on 03/21/24 at 0900, Until Discontinued, Routine Given 03/22/2024 [...] PRN, Starting on 03/19/24 at 0709, Until e 03/22/24 at 1411, Administer over 120 Minutes, [...] Intravenous, EVERY 2 HOURS PRN, Starting on Thu03/19/24 at 0709, Until Thu03/22/24 at 1411, Administer [...] Routine documented in this encounter Care Teams Blow Torch Operator Relationship Specialty Start Date End Date None None PCP - General 03/19/24 documented as of this encounter
--- OUTSIDE RECORDS SUMMARY | 2024-04-20 11:48 | XMS_ITS | Encounter Summary ---
Author Organization [facility] [place] [address] Care Team Providers Care Psychologist Chief Name Role Phone None Primary Care Provider Unavailabl e Reason for Visit * Auth/Cert (Routine) Specialty Diagnoses / Procedures Referred By Contac t Referred To Contact Diagnoses Acute ST elevation myocardial infarction (STEMI) due to occlusion of left anterior descending (LAD) coronary artery stemi Procedures EMERGENCY IPI Destin Ambrosio MD [facility] [place] [address] [facility] Referral ID Status Reason Start Date Expiration Date Visits Re quested Visits Authorized [id number] 1 1 Encounter Details Date Type Department Care Team (Latest Contact Info) Description 03/19/2024 8:10 AM EDT - 03/19/2024 11:59 PM EDT Hospital Encounter Non-Invasive [place] [address] Discharge Disposition: Home Social History Tobacco Use [...] 10:40 AM EDT Office Visit Cardiology at [address] [phone] Herlinda Weaver PA [facility] [place] [address] documented as of this encounter Procedures Procedure [...] mLs documented in this encounter Care Teams Psychologist Chief Relationship Specialty Start Date End Date None None PCP - General 03/19/24 documented as of this encounter
--- OUTSIDE RECORDS SUMMARY | 2024-04-20 11:48 | XMS_ITS | Encounter Summary ---
[place] [address] Care Team Providers Care Health Care Marketing Manager Name Role Phone Pretty Avery MD Primary Care Provider Reason for Referral * Diagnostic Test (Routine) - Closed Specialty Diagnoses / Procedures Referred By Contac t Referred To Contact Cardiology Diagnoses Hyperlipidemia, unspecified hyperlipidemia type Procedures Mobile Demi Gross APRN [address] [place] [address] [facility] [place] [address] Referral ID Status Reason Start Date Expiration Date V isits Requested Visits Authorized [id number] Closed Specialty Service Requested 08/28/2023 08/27/2024 1 1 Reason for Visit * Diagnostic Test (Routine) - Closed Specialty Diagnoses / Procedures Referred By Contac t Referred To Contact Cardiology Diagnoses Hyperlipidemia, unspecified hyperlipidemia type Procedures Mobile Echo Demi Archibald APRN [address] [place] [address] [facility] [place] [address] Referral ID Status Reason Start Date Expiration Date V isits Requested Visits Authorized [id number] Closed Specialty Service Requested 08/28/2023 08/27/2024 1 1 Encounter Details Date Type Department Care Team (Latest Contact Info) Description 08/28/2023 3:53 PM EST - 08/28/2023 11:59 PM EST Hospital Encounter [place] [address] Demi Archibald APRN [address] [place] [address] Hyperlipidemia, unspecified hyperlipidemia type Discharge Disposition: Home [...] 10:40 AM EDT Office Visit Cardiology at [address] [phone] Herlinda Weaver PA [facility] [place] [address] documented as of this encounter Procedures Procedure Name Priority Date/Time Associated Diagnosis Comments ECHO COMPLETE Routine 08/28/2023 4:04 PM EST Hyperlipidemia, unspecified hyperlipidemia type documented in this encounter Results * ECHO COMPLETE (08/28/2023 4:04 PM EST) Anatomical Region Laterality Modality Other 08/28/2023 2:15 PM EST Narrative 08/28/2023 4:14 PM EST [address] [place] [id number] ? Echocardiogram Report Name: EZEQUIEL THOMAS ?Study Date: 08/28/2023 02:15 PM ? [facility] 1965 ? Height: 157 cm ? Account: [id number] Age: 58 yrs ? Weight: 57 kg Gender: Female ?BSA: 1.6 m2 Ordering Physician: DEMI ARCHIBALD Referring Physician: DEMI ARCHIBALD Reason For Study: CAD, HLD, HTN Exam Location: [facility]. Interpretation Summary Normal biventricular size and function. LVEF 60-65% by visual assessment. Normal diastolic function. Normal pulmonary pressures. Normal atrial sizes. Mild mitral regurgitation. No prior for comparison. Procedure Complete-[id number]. Satisfactory quality. Left Ventricle Wall thickness is [...] Note Kaylee Sutherland MD - 08/28/2023 1 [place] [address] Echocardiogram Report Name: EZEQUIEL THOMAS Study Date:08/28/2023 02:15 PM Patient Location: : 1965 Height: 157 cm Account: [id number] Age: 58 yrs Weight: 57 kg Gender: Female BSA: 1.6 m2 Ordering Physician: DEMI ARCHIBALD Referring Physician: DEMI ARCHIBALD Reason For Study: CAD, HLD, HTN Exam Location: [facility]. Interpretation Summary Normal biventricular size and function. LVEF 60-65% by visual assessment.Normal diastolic function. Normal pulmonary pressures. Normal atrial sizes. Mild mitral regurgitation. No prior for comparison. Procedure Complete-[id number]. Satisfactory quality. Left Ventricle Wall thickness is [...] type documented in this encounter Care Teams Health Care Marketing Manager Relationship Specialty Start Date End Date Pretty Avery MD [address] [place] [address] PCP - General 08/06/10 03/18/24 documented as of this encounter
--- OUTSIDE RECORDS SUMMARY | 2024-04-20 11:48 | XMS_ITS | Encounter Summary ---
Author Organization [facility] [place] [address] Care Team Providers Care Exploration Driller Name Role Phone None Primary Care Provider Unavailabl e Encounter Details Date Type Department Care Team (Late st Contact Info) Description 03/18/2024 External Results Emergency Department [facility] [place] [phone] Social History Tobacco Use Types Packs/Day Years Used Date Smoking Tobacco: Former Smokeless Tobacco: Never [facility] Utilities Answer Date Recorded In the [...] any time in the past 12 m [facility], were you homeless or living in a [facility] (including now)? No 03/21/2024 IPV Inpatient Questions [...] 10:40 AM EDT Office Visit Cardiology at [address] [phone] Herlinda Weaver PA [facility] [place] [address] documented as of this encounter Procedures Procedure [...] on filedocumented in this encounter Care Teams Exploration Driller Relationship Specialty Start Date End Date None None PCP - General 03/19/24 documented as of this encounter
== END 2024-05-14 23:59 | disposition home or self-care (01) ==
LOC: CR 10:00
PROVIDERS: PCP Family Medicine; Visit Provider Internal Medicine Cardiovascular Disease
DX: I21.4 Non-ST elevation (NSTEMI) myocardial infarction (principal); Z95.5 Presence of coronary angioplasty implant and graft; Z51.89 Encounter for other specified aftercare
CPT/HCPCS: S9472

== ENCOUNTER 2024-05-19 08:27 | Outpatient (CLI) | payer MEDICAID, SELFPAY ==
--- OUTSIDE RECORDS SUMMARY | 2024-05-19 08:30 | XMS_ITS | Encounter Summary ---
Author Organization [facility] Address [address] [place] [address] Care Team Providers Care Early Morning Name Role Phone Pretty Avery MD Primary Care Provider [phone] Encounter Details Date Type Department Care Team (Latest Contact Info) Description 09/11/2021 Lab Requisition [facility] Pathology & Laboratory Medicine - [address] [address] Rosalba Archibald, [employer] TECHNICIAN [address] [id number] Encounter for general adult medical examination without [...] types, PCR Negative Negative 09/20/2021 15:45 EST [facility] Comment:No E6 or E7 mRNA is detected from HPV types 16,18,31,33,35,39,45,51,52,56,58,59,66, and 68 by dairy worker mediated amplification. Papanicolaou smear specimen (specimen) CERVIX UTERI STRUCTURE / Unknown 09/10/2021 9:15 EST 09/19/2021 14:21 EST Rosalba Archibald APRN MICROBIOLOGY - GE NERAL ORDERABLES [facility] [address] [place] [address] * PAP TEST (09/10/2021 9:15 EST) Specimens A. Cervix and/or Endocervix , ThinPrep Imaging System with Manual Evaluation 09/20/2021 15:45 EST [facility] Specimen Adequacy Satisfactory for Evaluation - transformation zone component present 09/20/2021 15:45 EST [facility] General Categorization Epithelial Cell Abnormality 09/20/2021 15:45 EST [facility] Descriptive Diagnosis Squamous Cell Abnormality - Atypical squamous cells, undetermined significance (ASC-US). 09/20/2021 15:45 EST [facility] Educational Comments [facility] recommends following ASCCP's 2012 Updated Consensus Guidelines for the Management of Abnormal Cervical Cancer Screening Tests and Cancer Precursors (JLGTD, 2013; 17(5):S1-S27). Consensus guidelines are available online at www.asccp.org. 09/20/2021 15:45 [facility] Attestation By the signature below, the attending physician certifies that they have personally conducted a gross and/or microscopic examination of the described specimens and rendered or confirmed the above diagnosis. 09/20/2021 15:45 [facility] at 1545 Clinical History See below 09/20/19 15:45 [facility] HPV The result for the Human Papillomavirus (HPV) Detection-High Risk Types is Negative. No E6 or E7 mRNA is detected from HPV types 16,18,31,33,35,3 9,45,51,52,56,58 ,59,66, and 68 by dairy worker mediated amplification.Te sting was performed on specimen [id number] and was resulted on 09/20/2021 1543 EST by CARMEN, LAB INSTRUMENT RESULTS IN 09/20/2021 15:45 [facility] Performing Lab [facility] 09/20/2021 15:45 [facility] Scanned Images 09/20/2021 15:45 [facility] Papanicolaou smear specimen (specimen) CERVIX UTERI STRUCTURE / Unknown 09/10/2021 9:15 EST 09/11/2021 9:41 EST Rosalba Archibald APRN PATHOLOGY ORDERAB LES [facility] [address] [place] [address] documented in this encounter Visit Diagnoses Diagnosis Encounter for general adult medical examination without abnormal findings Unspecified general medical examination Encounter for screening for malignant neoplasm of cervix Screening for malignant neoplasm of the cervix Encounter for gynecological examination (general) (routine) without abnormal findings documented in this encounter Care Teams Early Morning Relationship Specialty Start Date End Date Pretty Avery MD [address] [place] [address] PCP - General 06/05/10 documented as of this encounter
--- OUTSIDE RECORDS SUMMARY | 2024-05-19 08:30 | XMS_ITS | Encounter Summary ---
Author Organization [facility] Address [address] [place] [address] Care Team Providers Care Ski Instructor Name Role Phone Pretty Avery MD Primary Care Provider [phone] Reason for Referral * Consult (Routine) - Closed Specialty Diagnoses / Procedures Referred By Contac t Referred To Contact Diagnoses NSTEMI (non-ST elevated myocardial infarction) ([facility]) S/P coronary artery stent placement Yesy Manuel NP [address] [place] [id number] Alex Soto MD [address] [place] [address] Referral ID Status Reason Start Date Expiration Date V isits Requested Visits Authorized [id number] Closed Specialty Services Required 03/31/2014 1 1 Question Answer Reason for Request: post NSTEMI post PCI, CAD Scheduling Comments (optional ? describe specific scheduling needs if applicable): 1 month Expected Discharge Date (Inpatient Only): 04/01/2014 Comments Please schedule in [facility] cardiology clinic with Dr Alex Soto or next available typing teacher at that clinic. Office in [place] [phone]; cardiology clinic in [facility] [phone] * Consult (Routine) - Closed Specialty Diagnoses / Procedures Referred By Contac t Referred To Contact Cardiac Rehabilitation Diagnoses NSTEMI (non-ST elevated myocardial infarction) ([facility]) S/P coronary artery stent placement Yesy Manuel NP [address] [facility] [address] [place] [address] Referral ID Status Reason Start Date Expiration Date V isits Requested Visits Authorized [id number] Closed Specialty Services Required 03/31/2014 1 1 Question Answer Reason for Request: post NSTEMI, post pci, CAD Scheduling Comments (optional ? describe specific scheduling needs if applicable): 1 week Expected Discharge Date (Inpatient Only): 04/01/2014 Comments Please refer to [facility] in [facility] Encounter Details Date Type Department Care Team (Late st Contact Info) Description 03/30/2014 20:10 EDT - 04/01/2014 15:30 EDT Hospital Encounter [facility] Cardiac/Telemetry Unit [address] [place], [place] [address] Waqas Yao MD [address] [facility] 1 [place] [id number] NSTEMI (non-ST elevated myocardial infarction) ([facility]) (Primary Dx); S/P coronary artery stent [...] female with h/o 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 Her EKG showed non-specific ST changes and trops elevated at 0.179. She was transferred to [facility] for NSTEMI. She was started on heparin gtt, ASA, atovastatin, metoprolol, and ticagelor load. Heparin was weaned over the night. In the morning she had 2 more episodes of chest pain, and given SL nitro x2, whichimproved pain. She was later taken for [facility] after a discussion of the need to be on blood thinning medications for 12 months if a stent was to be placed. The patient agreed. Her [facility] had culprit lesionin LAD, which [...] Please refer to [facility] in [facility] Reason for Request: post NSTEMI, post pci, CAD Expected Discharge Date (Inpatient Only): 04/01/2014 Scheduling Time Frame: 1 week Authorizing Provider: Yesy Manuel NP Amb Consult/Follow Up Cardiology Please schedule in [facility] cardiology clinic with Dr Alex Soto or next available typing teacher at that clinic. Office in [place] [phone]; cardiology clinic in [facility] [phone] Reason for Request: post NSTEMI post PCI, [...] up with cardiology in 4-6 weeks at [facility] Please continue your cardiac medications, especially [...] weeks. * Tali Jacobs MD - 03/31/2014 0761 EDT Cardiology Post Procedure Note Date of [...] case management office. Quyen Barrett RN, CM pager#[phone] * Yesy Manuel NP - 03/31/2014 1308 EDT Ticagrelor twice daily without interruption x 1 year reviewed with patient and she verbalizes understanding. Cardiac rehab reviewed with patient and the patient is willing to attend at [facility]. Referral sent and written material given to patient.Follow up has been requested with Dr Alex Soto in cardiology clinic, [facility]. 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 Social Supports: Mother lives locally, friends available Existing Community Resources: No HH in past or currently, does not foresee needs upon discharge. PCP Pretty Avery MD Advanced Directives/DPOA: AD pamphlet given to patient Cultural/Spiritual Needs: Denied visit Insurance/Financial Needs: Medicaid coverage, pharmacy is [facility] in [facility] Transportation Needs: May need assistance with transportation, trying to set up a ride from family for d/c. Patient's car is in [place] currently. Patient Goals: No other needs at [...] relived with rest. She was taken to [facility] and treated with nitro and aspirin. The patient experienced some relief with nitro. EKG showed non specific st changes and trops were elevated. She was [facility] for management. Currently with the nitro gtt [...] clinical course Shahid Rayo MD Pager # [phone] 03/30/2014 21:10 Attestation statement::I have seen and [...] artery Procedure: She was brought to the [facility] Cardiac Catheterization Laboratory forthe procedure: Diagnostic coronary/graft [...] of Care - Robin Johnson - 03/31/2014 6117 EDT Problem: CIRCULATORY STATUS Goal: Patient Has [...] Care - Cuauhtemoc Berg RN - 03/31/2014 4056 EDT Problem: CIRCULATORY STATUS Goal: Patient Has Stable Vital Signs And Fluid Balance Outcome: Ongoing D: Patient arrived to [place] [address]. Vital signs noted, and tele applied. Patient [...] Referral Routine NSTEMI (non-ST elevated myocardial infarction) ([facility]) S/P coronary artery stent placement Ordered: 03/31/2014 AMB CONS/FOLLOW UP CARDIOLOGY Outpatient Referral Routine NSTEMI (non-ST elevated myocardial infarction) ([facility]) S/P coronary artery stent placement Ordered: 03/31/2014 [...] 9:34 EST) 09/26/2015 9:34 EST Scan 2 Alternative Energy Technician PROCEDURE/MINOR SHAYY GICAL ORDERABLES * ECG REPORT - SCANNED (04/06/2014 13:00 EDT) 04/06/2014 13:0 0 EDT Scan 2 Alternative Energy Technician PROCEDURE/MINOR SHAYY GICAL ORDERABLES * ECG REPORT - SCANNED (04/06/2014 13:00 EDT) 04/06/2014 13:0 0 EDT Scan 2 Alternative Energy Technician PROCEDURE/MINOR SHAYY GICAL ORDERABLES * INVASIVE CARDIOLOGY REPORT-SCANNED (04/06/2014 13:00 EDT) 04/06/2014 13:0 0 EDT Scan 2 Alternative Energy Technician PROCEDURE/MINOR SHAYY GICAL ORDERABLES * ECG REPORT - SCANNED (04/05/2014 7:12 EDT) 04/05/2014 7:12 EDT Scan 2 Alternative Energy Technician PROCEDURE/MINOR SHAYY GICAL ORDERABLES * ECG REPORT - SCANNED (04/04/2014 11:58 EDT) 04/04/2014 11:5 8 EDT Scan 2 Alternative Energy Technician PROCEDURE/MINOR SHAYY GICAL ORDERABLES * ECG REPORT - SCANNED (04/04/2014 11:56 EDT) 04/04/2014 11:5 6 EDT Scan 2 Alternative Energy Technician PROCEDURE/MINOR SHAYY GICAL ORDERABLES * (ABNORMAL) DIFFERENTIAL [...] PF4 ORD ERABLES [facility] [address] [place] [address] * HEMAGRAM (04/01/2014 5:50 EDT) WBC 11.20 [...] & PF4 ORD ERABLES Performing Organization Address [facility] de Phone Number [facility] [address] [place] [address] * PTT (04/01/2014 5:50 EDT) PTT 27 26 - 37 secs [facility] Comment:Therapeutic Heparin range: 65-100 seconds Blood specimen (specimen) 04/01/2014 5:50 EDT 04/01/2014 6:36 EDT Shahid Rayo MD HEMATOLOGY & PF4 ORD ERABLES Performing Organization Address [facility] Phone Number [facility] [address] [place] [address] * CREATININE (04/01/2014 5:50 EDT) Creatinine 0.69 0.52 - 1.04 mg/dl [facility] GFR, Calculated >60 >60 ml/min/1.7 3m2 [facility] Blood specimen (specimen) 04/01/2014 5:50 EDT 04/01/2014 6:36 EDT Shahid Rayo MD CHEMISTRY & BLOOD GA S ORDERABLES Performing Organization Address [facility] de Phone Number [facility] [address] [place] [address] * BUN (04/01/2014 5:50 EDT) BUN 10 10 - 26 mg/dl [facility] Blood specimen (specimen) 04/01/2014 5:50 EDT 04/01/2014 6:36 EDT Shahid Rayo MD CHEMISTRY & BLOOD GA S ORDERABLES Performing Organization Address [facility] [[email or web address]] Co de Phone Number [facility] [address] [place] [address] * ELECTROLYTES (04/01/2014 5:50 EDT) Sodium 138 136 - 145 mEq/L [facility] Potassium 4.2 3.5 - 5.0 mEq/L [facility] Chloride 107 96 - 110 mEq/L [facility] CO2 24 24 - 32 mEq/L [facility] Blood specimen (specimen) 04/01/2014 5:50 EDT 04/01/2014 6:36 EDT Shahid Rayo MD CHEMISTRY & BLOOD GA S ORDERABLES Performing Organization Address [facility] [[email or web address]] Co de Phone Number [facility] [address] [place] [address] * CK MB WITH TOTAL CK (04/01/2014 5:50 EDT) CK 35 30 - 135 U/L [facility] MB 1.58 <2.95 ng/ml [facility] Blood specimen (specimen) 04/01/2014 5:50 EDT 04/01/2014 6:36 EDT Yesy Manuel NP CHEMISTRY & BLOOD GA S ORDERABLES Performing Organization Address [facility] [[email or web address]] Co de Phone Number [facility] [address] [place] [address] * CK MB WITH TOTAL CK (03/31/2014 22:14 EDT) CK 42 30 - 135 U/L [facility] MB 1.72 <2.95 ng/ml [facility] Blood specimen (specimen) 03/31/2014 22:14 EDT 03/31/2014 22:19 EDT Shahid Rayo MD CHEMISTRY & BLOOD GA S ORDERABLES Performing Organization Address City/[facility]/ZIP Co de Phone Number [facility] [address] [place] [address] * (ABNORMAL) TROPONIN I (03/31/2014 14:32 EDT) Troponin I (ng/mL) 0.136(H) <0.034 ng/ml [facility] Blood specimen (specimen) 03/31/2014 14:32 EDT 03/31/2014 15:09 EDT Shahid Rayo MD CHEMISTRY & BLOOD IN S ORDERABLES Performing Organization Address [facility] de Phone Number [facility] [address] [place] [address] * CK MB WITH TOTAL CK (03/31/2014 14:32 EDT) CK 62 30 - 135 U/L [facility] MB 2.04 <2.95 ng/ml [facility] Blood specimen (specimen) 03/31/2014 14:32 EDT 03/31/2014 15:09 EDT Shahid Rayo MD CHEMISTRY & BLOOD GA S ORDERABLES Performing Organization Address [facility] de Phone Number [facility] [address] [place] [address] * EKG 12-LEAD (03/31/2014 13:30 EDT) 03/31/2014 13:3 0 EDT Narrative [facility] EKG - 04/04/2014 7:56 EDT ?[facility] ? Test Date: ?2014-03-31 Pat Name: ? ISA RO ?Department: ?? [facility] ? Room: ? MW511 Gender: ? F ?Pet Care Worker: ?? [id number] : ?1965 ? Requested By: YESY MANUEL MULTIMEDIA COORDINATOR Order Number: [id number] ? Reading MD: ?? BRYAN PURDY MD ? Measurements Intervals ?[place] ? Rate: ? 50 ? P: ?57 MD: ? 154 ?QRS: ?29 QRSD: ? 90 [...] Date: 2014-03-31 Pat Name: ISA RO Department: [place] [address] Room: [facility] Gender: F Pet Care Worker: [id number] : 1965 Requested By: YESY MANUEL NP Order Number: [id number] Reading MD: BRYAN PURDY MD Measurements Intervals [place] Rate: 50 P: 57 MD: 154 QRS: 29 QRSD: 90 T: 38 [...] 5 EDT Narrative 03/31/2014 13:08 EDT Cardiology [address] [place] [address] Catheterization Laboratory Study Patient: Isa Ro ? Study Date: ?03/31/2014 ? Accession #: ? [id number] : ? 1965 Referring Physician: Dilip Mahajan [...] successfully achieved. SUMMARY: 1. HPI and indications: Gvf-GM-goqnpzlc myocardial infarction. 2. LAD: Proximal vessel lesion: [...] 4. Continue aspirin, at 81mgPOdaily, indefinitely. HISTORY: Spe-GS-jkrntjex myocardial infarction. ??Functional status: ?? CCS class [...] radial artery access. A 5Fr/10 cm Terumo Prospect Sheath Radial sheath was ?? advanced into [...] MD 2014-03-31 13:08 Procedure Note 03/31/[address] [place] [id number] Catheterization Laboratory Study Patient: Isa Ro Study [...] successfully achieved. SUMMARY: 1. HPI and indications: Zpk-RL-nxuioqon myocardial infarction. 2. LAD: Proximal vessel lesion: [...] Add tricagrelor (Brilinta), loading dose 180mgPO, standing [id number], for 12mon. 4. Continue aspirin, at 81mgPOdaily, indefinitely. HISTORY: Ads-ZA-dxwaovfe myocardial infarction. Functional status: CCS class IV [...] radial artery access. A 5Fr/10 cm Terumo Prospect Sheath Radialsheath was advanced into the vessel. [...] 2. Vessel setup was performed. A 180 SunFunder wire was used to crossthe lesion. 3. [...] EDT *Interpreting Group:* *[facility]* [address] [place] [address] *STUDY CONCLUSIONS* Summary: ?? Left ventricle: The [...] ATTENDING ?Waqas Yao MD REFERRING ?Pretty Avery* TRUCK UNLOADER ??Tracey Black PERFORMING ?? [facility], FELLOW ? Abiodun Velez ORDERING ? Joel Parker REFERRING ?Joel Parker j *PROCEDURE DATA* Procedure information: ??This study was interpreted by [facility] at [facility]. ??Study status: ??Routine. Transthoracic echocardiography. ??M-mode, complete 2D, complete spectral Doppler, and color Doppler. A Transthoracic Echocardiogram was performed. Scanning was performed from the parasternal, apical, subcostal, and suprasternal notch acoustic windows. Images were obtained using a Shubham IE33 3 cardiac ultrasound machine. Image quality was adequate. ??Study completion: ??The patient tolerated the procedure well. *INDICATIONS AND HISTORY* Indications: ?? MD - nontransmural - acute 410.71. *CARDIAC ANATOMY* [...] 03/31/2014 11:13 Procedure Note 03/31/2014 *Interpreting Group:* *[facility]* [address] [place] [address] *STUDY CONCLUSIONS* Summary: Left ventricle: The cavity [...] ATTENDING Waqas Yao MD REFERRING Pretty Avery* TRUCK UNLOADER Tracey Black PERFORMING Fa, FELLOW Abiodun Velez ORDERING Joel Parker REFERRING Joel Parker j *PROCEDURE DATA* Procedure information: This study was interpreted by [facility] at [facility]. Study status: Routine.Transthoracic echocardiography. M-mode, complete 2D, complete spectral Doppler, andcolor Doppler. A Transthoracic Echocardiogram was performed. Scanning wasperformed from the parasternal, apical, subcostal, and suprasternal notch acoustic windows. Images were obtained using a Shubham IE33 3 cardiac ultrasoundmachine. Image quality was adequate. Study completion: The patient tolerated the procedure well. *INDICATIONS AND HISTORY* Indications: MD - nontransmural - acute 410.71. *CARDIAC ANATOMY* [...] ? Room: ? MW511 Gender: ? F ?Pet Care Worker: ?? [id number] : ?1965 ? Requested By: WAQAS YAO MD Order Number: [id number] ? Reading MD: ?? LYDIA DALTON MD ? Measurements Intervals ?[place] ? Rate: ? 59 ? P: ?58 MD: ? 154 ?QRS: ?41 QRSD: ? 88 [...] Date: 2014-03-31 Pat Name: ISA SHEPHERDISAI Department: [place] [address] Room: MW511 Gender: F Pet Care Worker: [id number] : 1965 Requested By: WAQAS YAO MD Order Number: [id number] Reading MD: LYDIA DALTON MD Measurements Intervals [place] Rate: 59 P: 58 MD: 154 QRS: 41 QRSD: 88 T: 43 [...] & PF4 ORD ERABLES Performing Organization Address City/[facility]/ZIP Co de Phone Number [facility] [address] [place] [address] * HEMAGRAM (03/31/2014 6:43 EDT) Pathologist [place] [...] & PF4 ORD ERABLES Performing Organization Address City/[facility] [[email or web address]] Co de Phone Number [facility] [address] [place] [address] * (ABNORMAL) PTT (03/31/2014 6:43 EDT) Pathologist [facility] PTT 51(H) 26 - 37 secs [facility] Comment:Therapeutic Heparin range: 65-100 seconds Blood specimen (specimen) 03/31/2014 6:43 EDT 03/31/2014 7:01 EDT Shahid Rayo MD HEMATOLOGY & PF4 ORD ERABLES Performing Organization Address [facility] de Phone Number [facility] [address] [place] [address] * CREATININE (03/31/2014 6:43 EDT) Pathologist [facility] Creatinine 0.70 0.52 - 1.04 mg/dl [facility] GFR, Calculated >60 >60 ml/min/1.7 3m2 [facility] Blood specimen (specimen) 03/31/2014 6:43 EDT 03/31/2014 7:01 EDT Shahid Rayo MD CHEMISTRY & BLOOD GA S ORDERABLES Performing Organization Address [facility] de Phone Number [facility] [address] [place] [address] * BUN (03/31/2014 6:43 EDT) BUN 15 10 - 26 mg/dl [facility] Blood specimen (specimen) 03/31/2014 6:43 EDT 03/31/2014 7:01 EDT Shahdi Rayo MD CHEMISTRY & BLOOD GA S ORDERABLES Performing Organization Address [facility] Phone Number [facility] [address] [place] [address] * ELECTROLYTES (03/31/2014 6:43 EDT) Sodium 139 136 - 145 mEq/L [facility] Potassium 4.2 3.5 - 5.0 mEq/L [facility] Chloride 107 96 - 110 mEq/L [facility] CO2 24 24 - 32 mEq/L [facility] Blood specimen (specimen) 03/31/2014 6:43 EDT 03/31/2014 7:01 EDT Shahid Rayo MD CHEMISTRY & BLOOD GA S ORDERABLES Performing Organization Address [facility] Phone Number [facility] [address] [place] [address] * LIPID PROFILE (INCLUDES CHOLESTEROL, TRIGLYCERIDES, HDL, LDL) (03/31/2014 6:43 EDT) Cholesterol 152 mg/dl [facility] Comment: Desirable:<200 Borderline High:200-239 High:>ss=366 Triglycerides 100 mg/dl [facility] Comment: Normal:<150 Borderline High:150-199 High:200-499 Very High:>xi=250 HDL 50 mg/dl [facility] Comment: Low:<40 Normal:40-60 Desirable: >60 LDL, Calculated 82 mg/dl [facility] Comment: Optimal:<100 Near Optimal:100-129 Borderline High:130-159 High:160-189 Very High:>tl=081 Chol/HDL Ratio 3.0 [facility] Fasting? Unknown [facility] Non HDL Cholesterol 102 mg/dl [facility] Comment: Desirable:<130 Borderline:130-159 High: 160-189 Very High: >mw=415 Blood specimen (specimen) 03/31/2014 6:43 EDT 03/31/2014 7:01 EDT Shahid Rayo MD CHEMISTRY & BLOOD GA S ORDERABLES Performing Organization Address [facility] [[email or web address]] Co de Phone Number [facility] [address] [place] [address] * (ABNORMAL) TROPONIN I (03/31/2014 6:43 EDT) Troponin I (ng/mL) 0.180(H) <0.034 ng/ml [facility] Blood specimen (specimen) 03/31/2014 6:43 EDT 03/31/2014 7:01 EDT Shahid Rayo MD CHEMISTRY & BLOOD GA S ORDERABLES Performing Organization Address [facility] [[email or web address]] Co de Phone Number [facility] [address] [place] [address] * CK MB WITH TOTAL CK (03/31/2014 6:43 EDT) CK 55 30 - 135 U/L [facility] MB 2.51 <2.95 ng/ml [facility] Blood specimen (specimen) 03/31/2014 6:43 EDT 03/31/2014 7:01 EDT Shahid Rayo MD CHEMISTRY & BLOOD GA S ORDERABLES Performing Organization Address [facility] [[email or web address]] Co de Phone Number [facility] [address] [place] [address] * HEMOGLOBIN A1C (03/31/2014 6:43 EDT) Hemoglobin [...] BLOOD GA S ORDERABLES Performing Organization Address [facility] [[email or web address]] Co de Phone Number [facility] [address] [place] [address] * HEMAGRAM (03/30/2014 22:23 EDT) WBC 9.80 [...] HEMATOLOGY & PF4 ORDERABLES Performing Organization Address [facility] de Phone Number [facility] [address] [place] [address] * INPATIENT ADD-ON (03/30/2014 22:00 EDT) Pathologist [facility] Tests to be added HEMAGRAM [facility] Number for problems MW5 [facility] Accession number [id number] [facility] 03/30/2014 22:0 0 EDT 03/30/2014 22:10 EDT Shahid Rayo MD HEMATOLOGY & PF4 ORD ERABLES Performing Organization Address [facility] [[email or web address]] Co de Phone Number [facility] [address] [place] [address] * CK MB WITH TOTAL CK (03/30/2014 21:01 EDT) [facility] CK 59 30 - 135 U/L [facility] MB 2.26 <2.95 ng/ml [facility] Blood specimen (specimen) 03/30/2014 21:01 EDT 03/30/2014 21:10 EDT Shahid Rayo MD CHEMISTRY & BLOOD GA S ORDERABLES Performing Organization Address [facility] [[email or web address]] Co de Phone Number [facility] [address] [place] [address] * (ABNORMAL) TROPONIN I (03/30/2014 21:01 EDT) [facility] Troponin I (ng/mL) 0.179(H) <0.034 ng/ml [facility] Blood specimen (specimen) 03/30/2014 21:01 EDT 03/30/2014 21:10 EDT Shahid aRyo MD CHEMISTRY & BLOOD GA S ORDERABLES Performing Organization Address [facility] de Phone Number [facility] [address] [place] [address] * CREATININE (03/30/2014 21:01 EDT) [facility] Creatinine 0.74 0.52 - 1.04 mg/dl [facility] GFR, Calculated >60 >60 ml/min/1.7 3m2 [facility] Blood specimen (specimen) 03/30/2014 21:01 EDT 03/30/2014 21:10 EDT Shahid Rayo MD CHEMISTRY & BLOOD GA S ORDERABLES Performing Organization Address [facility] Phone Number [facility] [address] [place] [address] * BUN (03/30/2014 21:01 EDT) BUN 13 10 - 26 mg/dl [facility] Blood specimen (specimen) 03/30/2014 21:01 EDT 03/30/2014 21:10 EDT Shahid Rayo MD CHEMISTRY & BLOOD GA S ORDERABLES Performing Organization Address [facility] de Phone Number [facility] [address] [place] [address] * ELECTROLYTES (03/30/2014 21:01 EDT) Sodium 139 136 - 145 mEq/L [facility] Potassium 3.7 3.5 - 5.0 mEq/L [facility] Chloride 105 96 - 110 mEq/L [facility] CO2 24 24 - 32 mEq/L [facility] Blood specimen (specimen) 03/30/2014 21:01 EDT 03/30/2014 21:10 EDT Shahid Rayo MD CHEMISTRY & BLOOD GA S ORDERABLES Performing Organization Address [facility] [facility] de Phone Number [facility] [address] [place] [address] * PROTIME (03/30/2014 21:01 EDT) Pro Time [...] MD HEMATOLOGY & PF4 ORD ERABLES [facility] [address] [place] [address] * (ABNORMAL) PTT (03/30/2014 21:01 EDT) PTT 130(HH) 26 - 37 secs [facility] Comment:Therapeutic Heparin range: 65-100 seconds Blood specimen (specimen) 03/30/2014 21:01 EDT 03/30/2014 21:10 EDT Shahid Rayo MD HEMATOLOGY & PF4 ORD ERABLES Performing Organization Address City/[facility] [[email or web address]] Co de Phone Number [facility] [address] [place] [address] documented in this encounter Visit Diagnoses Diagnosis NSTEMI (non-ST elevated myocardial infarction) ([facility] Primary Acute myocardial infarction, subendocardial infarction, episode of care unspecified NSTEMI (non-ST elevated myocardial infarction) ([facility]) Acute myocardial infarction, subendocardial infarction, episode of [...] Provider: Ivan Nguyen) 1039 (Given - Provider: Khdara Singh) heparin 1,000 unit/mL injection 3,500 Units [...] 03/14 documented in this encounter Care Teams Ski Instructor Relationship Specialty Start Date End Date Pretty Avery MD [address] [place] [address] PCP - General 06/05/10 documented as of this encounter
--- OUTSIDE RECORDS SUMMARY | 2024-05-19 08:30 | XMS_ITS | Encounter Summary ---
Author Organization [facility] Address [address] [place] [address] Care Team Providers Care Justice [employer] Name Role Phone Pretty Avery MD Primary Care Provider [phone] Encounter Details Date Type Department Care Team (Late st Contact Info) Description 04/08/2018 Historical Results Only [facility] Radiology Results [address] [place] [address] Wesley Trinh MD [address] [place] [address] Social History Tobacco Use Types [...] * TROPONIN I (04/08/2018 20:12 EDT) Pathologist [facility] Troponin I (ng/mL) <0.012 0.000 - 0.034 ng/mL 04/08/2018 20:47 EDT [facility] Comment: Interpretation comments: ??Cutoff [...] Philip MD CHEMISTRY & BLOOD GAS ORDERABLES [facility] * XR CHEST 2 [...] MD ? Transcribed Date/Time: 04/08/2018 (1402) ? Careers Adviser: ? Printed Date/Time: 03/04/2019 (2916) ? PAGE 1 ? Signed Report ? [...] Wesley Trinh MD Transcribed Date/Time: 04/08/2018 (1402) Careers Adviser: Printed Date/Time: 03/04/2019 (3617) PAGE 1 Signed Report Wesley Trinh MD IMG DIAGNOSTIC I MAGING ORDERABLES * MAGNESIUM (04/08/2018 12:24 EDT) Magnesium 1.70 1.7 - 2.8 mg/dL 04/08/2018 12:48 EDT [facility] 04/08/2018 12:2 4 EDT 04/08/2018 12:30 EDT Wesley Trinh MD CHEMISTRY & BLOO D GAS ORDERABLES [facility] * (ABNORMAL) COMPREHENSIVE METABOLIC PANEL (CMP) (04/08/2018 12:24 EDT) Pathologist [facility] Albumin % 4.4 3.4 - 4.9 g/dL 04/08/2018 12:48 [facility] ALKALINE PHOSPHATASE - [facility] 75 38 - 126 U/L 04/08/2018 12:48 [facility] BILIRUBIN TOTAL 0.4 0.2 - 1.3 mg/dL 04/08/2018 12:48 [facility] BUN - [facility] 21 10 - 26 mg/dL 04/08/2018 12:48 [facility] CALCIUM - [facility] 9.3 8.5 - 10.5 mg/dL 04/08/2018 12:48 [...] 11 0 - 18 04/08/2018 12:48 EDT [facility] GLUCOSE - [facility] 103(H) 70 - 100 mg/dL 04/08/2018 12:48 EDT [facility] Potassium 3.8 3.5 - 5.0 mEq/L 04/08/2018 12:48 EDT [facility] Sodium 138 136 - 145 mEq/L 04/08/2018 12:48 EDT [facility] TOTAL PROTEIN - [facility] 7.1 6.2 - 8.2 gm/dL 04/08/2018 12:48 EDT [facility] SGOT/AST - [facility] 20 14 - 36 U/L 04/08/2018 12:48 T [facility] SGPT/ALT - [facility] 36 9 - 52 U/L 8 12:48 EDT [facility] 04/08/2018 12:2 4 EDT 04/08/2018 12:30 EDT Wesley Trinh MD CHEMISTRY & BLOO D GAS ORDERABLES Performing Organization Address [facility]/ZIP Co de Phone Number [facility] * TROPONIN I (04/08/2018 12:24 EDT) Troponin I (ng/mL) <0.012 0.000 - 0.034 ng/mL 04/08/2018 13:00 EDT [facility] Comment: Interpretation comments: ??Cutoff [...] MD CHEMISTRY & BLOO D GAS ORDERABLES [facility] * COMPLETE BLOOD COUNT [...] 0.3 - 0.9 10e3/uL 04/08/2018 12:36 EDT [facility] MONO% - [facility] 7 0 - 12 % 04/08/2018 12:36 EDT [facility] PLATELET COUNT 252 150 - 400 10e3/ul 04/08/2018 12:36 EDT [facility] RED BLOOD COUNT - [facility] 4.79 3.8 - 5.2 10e6/ul 04/08/2018 12:36 EDT [facility] RED CELL DISTRI WIDTH - [facility] 14.1 11.8 - 15.6 % 04/08/2018 12:36 EDT [facility] WHITE BLOOD COUNT - [facility] 8.6 3.5 - 10.5 10e3/ul 04/08/2018 12:36 EDT [facility] 04/08/2018 12:2 4 EDT 04/08/2018 12:30 EDT Wesley Trinh MD HEMATOLOGY & PF4 ORDERABLES [facility] documented in this encounter Visit Diagnoses Not on filedocumented in this encounter Care Teams [employer] Relationship Specialty Start Date End Date Pretty Avery MD [address] [place] [address] PCP - General 06/05/10 documented as of this encounter
--- OUTSIDE RECORDS SUMMARY | 2024-05-19 08:30 | XMS_ITS | Encounter Summary ---
Author Organization [facility] Address [address] [place] [address] Care Team Providers Care Firestop/Containment Worker Name Role Phone Pretty Avery MD Primary Care Provider [phone] Encounter Details Date Type Department Care Team (Late st Contact Info) Description 03/07/2022 Lab Requisition [facility] Pathology & Laboratory Medicine - [address] [address] Outr Resulting Lab, Provider Social History Tobacco [...] Priority Date/Time Associated Diagnosis Comments ZZCOVID-19 TEST [facility] PCR Today 03/06/2022 16:00 EDT COVID-19 TESTING Routine 03/06/2022 16:0 0 EDT documented in this encounter Results * COVID-19 TEST [facility] PCR (03/06/2022 16:00 EDT) Swab 03/06/2022 16:0 0 EDT 03/07/2022 22:03 EDT Provider Outr Resulting Lab MICROBIOLOGY - GENERAL ORDERABLES Performing Organization Address City/[facility]/ZIP Co de Phone Number [facility] [address] [place] [address] * COVID-19 TESTING (03/06/2022 16:00 EDT) COVID-19 rt-PCR Result Negative Negative 03/08/2022 12:05 EDT [facility] Comment: This test [...] performed using the camille SARS-CoV-2 assay ([employer] on the Camille 6800 System Performing Lab [place] [address] [facility] 03/08/2022 12:05 EDT [facility] Swab 03/06/2022 16:0 0 EDT 03/07/2022 22:03 EDT Provider Outr Resulting Lab MICROBIOLOGY - GENERAL ORDERABLES Performing Organization Address City/[facility]/ZIP Co de Phone Number [facility] [address] [place] [address] documented in this encounter Visit Diagnoses Not on filedocumented in this encounter Care Teams Firestop/Containment Worker Relationship Specialty Start Date End Date Pretty Avery MD [address] [place] [phone] PCP - General 06/05/10 documented as of this encounter
--- OUTSIDE RECORDS SUMMARY | 2024-05-19 08:30 | XMS_ITS | Encounter Summary ---
Author Organization [facility] Address [address] [place] [address] Care Team Providers Care Wood Heel Flap Rubber Name Role Phone Pretty Avery MD Primary Care Provider [phone] Encounter Details Date Type Department Care Team (Latest Contact Info) Description 12/05/2015 12:19 EDT - 12/05/2015 23:59 EDT Hospital Encounter [address] [address] Unknown, Provider, Discharge Disposition: Home or Self [...] filedocumented in this encounter Care Teams Wood Heel Flap Rubber Relationship Specialty Start Date End Date Pretty Avery MD [address] [place] [address] PCP - General 06/05/10 documented as of this encounter
--- OUTSIDE RECORDS SUMMARY | 2024-05-19 08:30 | XMS_ITS | Encounter Summary ---
Author Organization [facility] Address [address] [place] [address] Care Team Providers Care Environment Artist Name Role Phone Pretty Avery MD Primary Care Provider Encounter Details Date Type Department Care Team (Latest Contact Info) Description 06/18/2018 9:36 EDT - 06/18/2018 23:59 EDT Hospital Encounter [facility] - [address] [address] Unknown, Provider, Discharge Disposition: Home or Self [...] on filedocumented in this encounter Care Teams Environment Artist Relationship Specialty Start Date End Date Pretty Avery MD [address] [place] [address] PCP - General 06/05/10 documented as of this encounter
--- OUTSIDE RECORDS SUMMARY | 2024-05-19 08:30 | XMS_ITS | Data Portability ---
Author Organization [place] [facility] [place] [address] Assessment Encounter Date Assessment Date Assessment LastModified [...] using appropriate technology. Not available 10/02/2023 15:53:25 04/04/2024 04/04/2024 The patient was seen and examined by myself in conjunction with MELECIO Reese student at [facility]. I interviewed, examined and I agree fully with the examination and management plans as outlined in note. khb The total time devoted to today's encounter, including both the elmp-gd-vuvg time with the patient and/or family/caregiv er and qll-fxkk-og-fa ce time I personally spent is 45 [...] Organization Details Last Modified Time Details Appointments Acute 20 2023 11:30A M Not available Not available Not available Nurse Visit 2023 08:00A M Not available Not available Not available Follow Up 2023 09:30A M Not available Not available Not available Lab rapid strep group A, throat 2023 024 [facility], [address] [facility] [address] [address], [place], [address], 01/15/2024 16:39:11 culture, throat 2023 024 [facility] (Registration ), [address] [place] [address] Dr, [place], [address], 01/16/2024 12:10:34 Referral physical therapist referral 2023 024 [facility], [address] , [place], [address], 01/25/2024 15:03:28 Procedures None recorded. Surgeries None recorded. Imaging None recorded. Medication Orders gabapenti n 300 mg capsule 2023 024 [email or web address] 1 [facility], [address] [place] [address], [id number], 01/15/2024 15:29:36 Artificia l Tears (carboxym ethylcell ulose) 1 % eye drops 2023 024 [facility], [address] [place] [address], [id number], 04/04/2024 08:15:28 cetirizin e 0.24 % eye drops in a dropperet te 2023 024 [email or web address] [facility], [address] [place], [address], 04/04/2024 08:14:54 cyclobenz aprine 10 mg tablet 2023 024 [facility], [address] [place], [address], 04/04/2024 08:15:08 rosuvasta tin 40 mg tablet 2023 024 [facility], [address] [place], [address], 04/04/2024 08:50:04 Patient TargetsNo targets recorded. Patient Instructions Encounter Date Encounter Id Patient Instructions Last Modified By Organization Details Last Modified Time 10/17/2023 [id number] 1. I have sent 2 medications to [...] have follow-up either with primary care or [facility] eye care. Given that you are already established there it might be easiest and best to follow-up with them if not improved. Not available 10/17/2023 11:39:01 01/15/2024 [id number] 1. Rapid strep i s negative. Throat [...] therapist office for Kavon Araujo at the [facility] location. If they cannot get you in any want referral elsewhere please let us know when we call you on Thursday to go over throat culture. 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 Referral for Herpes zoster Referring Physician: Altagracia Mccain [facility], Encounter Date: 09/19/2023 Physical Therapist Referral for Muscle spasm of cervical muscle of neck Referring Physician: Altagracia Mccain [facility], Encounter Date: 01/15/2024 Results Created Date Observation Date Name Description Value Unit Range Abnormal Flag Note LastModifiedBy Organization Detail LastModifiedTime 09/08/20 23 09/10/2023 THROA T AEROB IC CULTU RE throat aerobic culture Throa t Aerob ic Cultu re APPEA YULIA Lucila l Kwasi GROWT H(REP ORT) HEAVY GROWT H Day 1 Resul t ISOLA LEWIS BELOW O:NF (ORGA NISM ID: [id number]) - LUCILA L KWASI Throa t Aerob ic Cultu re (ORGA NISM ID: 1.1) - GROWT H(REP ORT) (ORGA NISM ID: 1.1) - HEAVY GROWT H Not Available [address] [place], [address] 09/10/2023 09:32:21 09/08/20 23 09/11/2023 THROA T AEROB IC CULTU RE throat aerobic culture Throa t Aerob ic Cultu re APPEA YULIA Lucila l Kwasi APPEA YULIA Lucila l Kwasi GROWT H(REP ORT) HEAVY GROWT H GROWT H(REP ORT) HEAVY GROWT H Day 1 Resul t ISOLA LEWIS BELOW Day 2 Resul t ISOLA LEWIS BELOW O:NF (ORGA NISM ID: 1.1) - LUCILA L KWASI Throa t Aerob ic Cultu re (ORGA NISM ID: 1.1) - GROWT H(REP ORT) (ORGA NISM ID: 1.1) - HEAVY GROWT H Not Available [facility] (Registration ) [address] [place] [address] [place], [address], 09/11/2023 09:02:20 09/08/20 23 09/08/2023 rapid strep group A, throa t Strep negati ve Not Available [address], [place], [address], 09/08/2023 13:47:02 09/08/20 23 09/08/2023 influ randa virus A + B + SARS- CoV-2 (COVI D19) Ag panel , rapid IA, upper respi rator y speci men Influenza A negati ve Not Available [address], [place], [address], 09/08/2023 13:46:53 09/08/20 23 09/08/2023 influ randa virus A + B + SARS- CoV-2 (COVI D19) Ag panel , rapid IA, upper respi rator y speci men Influenza B negati ve Not Available [address], [place], [address], 09/08/2023 13:46:53 09/08/20 23 09/08/2023 influ randa virus A + B + SARS- CoV-2 (COVI D19) Ag panel , rapid IA, upper respi rator y speci men SARS-COV-2 negati ve Not Available [address], [place], [address], 09/08/2023 13:46:53 01/15/20 24 01/16/2024 THROA T AEROB IC CULTU RE throat aerobic culture Throa t Aerob ic Cultu re APPEA YULIA Lucila l Kwasi GROWT H(REP ORT) MODER ATE GROWT H Day 1 Resul t ISOLA LEWIS BELOW O:NF (ORGA NISM ID: 1.1) - LUCILA L KWASI Throa t Aerob ic Cultu re (ORGA NISM ID: 1.1) - GROWT H(REP ORT) (ORGA NISM ID: 1.1) - MODER ATE GROWT H Not Available [facility] (Registration ) [address] [place] [address] [address] [facility] [place], [address], 01/16/2024 11:50:36 01/15/20 24 01/17/2024 THROA T AEROB IC CULTU RE throat aerobic culture Throa t Aerob ic Cultu re APPEA YULIA Lucila l Kwasi APPEA YULIA Lucila l Kwasi GROWT H(REP ORT) MODER ATE GROWT H GROWT H(REP ORT) HEAVY GROWT H Day 1 Resul t ISOLA LEWIS BELOW Day 2 Resul t ISOLA LEWIS BELOW O:NF (ORGA NISM ID: 1.1) - LUCILA L KWASI Throa t Aerob ic Cultu re (ORGA NISM ID: 1.1) - GROWT H(REP ORT) (ORGA NISM ID: 1.1) - HEAVY GROWT H Not Available [facility] (Registration ) [address] [place] [address] [place], [address], 01/17/2024 07:27:17 01/15/20 24 01/15/2024 rapid strep group A, throa t Strep negati ve Not Available [address], [place], [address], 01/15/2024 15:19:00 04/20/20 24 04/20/2024 COMPL ETE BLOOD COUNT W/DIF F WBC 8.56 10_3/ uL 4.4-10 .8 normal Not Available [address] [facility] [place], [address] 04/20/2024 11:50:23 04/20/20 24 04/20/2024 COMPL ETE BLOOD COUNT W/DIF F RBC 4.73 10_6/ uL 3.93-5 .22 normal Not Available [address] [facility] [place], [address] 04/20/2024 11:50:23 04/20/20 24 04/20/2024 COMPL ETE BLOOD COUNT W/DIF F HGB 12.9 g/dL 11.2-1 5.7 normal Not Available [address] [place], [address] 04/20/2024 11:50:23 04/20/20 24 04/20/2024 COMPL ETE BLOOD COUNT W/DIF F HCT 40.3 % 36.0-4 6.0 normal Not Available [address] [place], [address] 04/20/2024 11:50:23 04/20/20 24 04/20/2024 COMPL ETE BLOOD COUNT W/DIF F MCV 85 fL 80-95 normal Not Available [address] [place], [address] 04/20/2024 11:50:23 04/20/20 24 04/20/2024 COMPL ETE BLOOD COUNT W/DIF F MCH 27.3 pg 27.0-3 3.0 normal Not Available [address] [place], [address] 04/20/2024 11:50:23 04/20/20 24 04/20/2024 COMPL ETE BLOOD COUNT W/DIF F MCHC 32.0 % 32.0-3 6.0 normal Not Available [address] [place], [address] 04/20/2024 11:50:23 04/20/20 24 04/20/2024 COMPL ETE BLOOD COUNT W/DIF F RDW 13.1 % 11.7-1 4.6 normal Not Available [address] [place], [address] 04/20/2024 11:50:23 04/20/20 24 04/20/2024 COMPL ETE BLOOD COUNT W/DIF F platelet count 242 10_3/ uL 130-40 0 normal Not Available [address] [place], [address] 04/20/2024 11:50:23 04/20/20 24 04/20/2024 COMPL ETE BLOOD COUNT W/DIF F MPV 9.6 fL 8.0-11 .0 normal Not Available [address] [place], [address] 04/20/2024 11:50:23 04/20/20 24 04/20/2024 COMPL ETE BLOOD COUNT W/DIF F neutrophils % 69.5 % Not Available [address] [place], [address] 04/20/2024 11:50:23 04/20/20 24 04/20/2024 COMPL ETE BLOOD COUNT W/DIF F lymphocytes % 20.3 % Not Available [address] [place], [address] 04/20/2024 11:50:23 04/20/20 24 04/20/2024 COMPL ETE BLOOD COUNT W/DIF F monocytes % 6.7 % Not Available [address] [place], [address] 04/20/2024 11:50:23 04/20/20 24 04/20/2024 COMPL ETE BLOOD COUNT W/DIF F eosinophils % 2.5 % Not Available [address] [place], [address] 04/20/2024 11:50:23 04/20/20 24 04/20/2024 COMPL ETE BLOOD COUNT W/DIF F basophils % 0.5 % Not Available [address] [place], [address] 04/20/2024 11:50:23 04/20/20 24 04/20/2024 COMPL ETE BLOOD COUNT W/DIF F immature grans % 0.5 % Not Available [address] [place], [address] 04/20/2024 11:50:23 04/20/20 24 04/20/2024 COMPL ETE BLOOD COUNT W/DIF F nucleated RBC 0.0 % 0.0-0. 3 normal Not Available [address] [place], [address] 04/20/2024 11:50:23 04/20/20 24 04/20/2024 COMPL ETE BLOOD COUNT W/DIF F absolute neutrophil count 5.96 10_3/ uL 1.2-6. 7 normal Not Available [address] [place], [address] 04/20/2024 11:50:23 04/20/20 24 04/20/2024 COMPL ETE BLOOD COUNT W/DIF F absolute lymphocyte count 1.74 10_3/ uL 1.2-3. 4 normal Not Available [address] [place], [address] 04/20/2024 11:50:23 04/20/20 24 04/20/2024 COMPL ETE BLOOD COUNT W/DIF F absolute monocyte count 0.57 10_3/ uL 0.1-0. 8 normal Not Available [address] [place], [address] 04/20/2024 11:50:23 04/20/20 24 04/20/2024 COMPL ETE BLOOD COUNT W/DIF F absolute eosinophil count 0.21 10_3/ uL 0.0-0. 7 normal Not Available [address] [place], [address] 04/20/2024 11:50:23 04/20/20 24 04/20/2024 COMPL ETE BLOOD COUNT W/DIF F absolute basophil count 0.04 10_3/ uL 0.0-0. 2 normal Not Available [address] [place], [address] 04/20/2024 11:50:23 04/20/20 24 04/20/2024 PROTH ROMBI N TIME prothrombin time 10.1 sec 9.1-11 .1 normal Not Available [address] [place], [address] 04/20/2024 12:06:23 04/20/20 24 04/20/2024 PROTH ROMBI N TIME INR 1.0 0.9-1. 1 normal Recom tatum d INR thera peuti c range s for orall y admin ister ed drugs are as follo ws: -Velasquez dard Inten sity 2.0 to 3.0 -High er Inten sity 3.0 to 4.5 Not Available [address] [place], [address] 04/20/2024 12:06:23 04/20/20 24 04/20/2024 PTT ACTIV ATED PTT activated 25.0 sec 23.6-3 2.8 normal Hepar in Thera peuti c Range for PTT = 52-84 secon ds New Hepar in Thera peuti c Range 10/20 Not Available [address] [place], [address] 04/20/2024 12:06:23 04/20/20 24 04/20/2024 TROPO LEXUS I troponin I < 50 NG/L < or =60 Not Available [address] [place], [address] 04/20/2024 12:22:32 04/20/20 24 04/20/2024 NT-DC OBNP nt-probnp 1278 pg/mL <300 high NT-pr oBNP value s <300 pg/mL have a 98% negat tyrone predi ctive value for exclu ding acute conge stive heart failu re (CHF) . NT-pr oBNP value s >450 pg/mL are consi stent with CHF in adult s <50 years of age. A diagn ostic cut-o ff of 900 pg/mL has been sugge sted in adult s >50 years of age in the absen ce of renal failu re. A cut-o ff of 1200 pg/mL for patie nts with an eGFR less than 60 yield s a diagn ostic sensi tivit y and speci ficit y of 89% and 72% for acute conge stive failu re. NOTE: Supra -phys iolog ic doses of Bioti n(B7) may cause false negat tyrone resul ts. Not Available [address] [place], [address] 04/20/2024 12:22:33 04/20/20 24 04/20/2024 COMPR EHENS TYRONE METAB OLIC PANEL calcium 9.3 mg/dL 8.5-10 .1 normal Not Available [address] [place], [address] 04/20/2024 12:48:42 04/20/20 24 04/20/2024 COMPR EHENS TYRONE METAB OLIC PANEL glucose 98 mg/dL 74-106 normal Not Available [facility] [address] [place], [address] 04/20/2024 12:48:42 04/20/20 24 04/20/2024 COMPR EHENS TYRONE METAB OLIC PANEL BUN 14 mg/dL 7-18 normal Not Available [facility] [address] [place], [address] 04/20/2024 12:48:42 04/20/20 24 04/20/2024 COMPR EHENS TYRONE METAB OLIC PANEL creatinine 0.9 mg/dL 0.55-1 .02 normal Not Available [address] [place], [address] 04/20/2024 12:48:42 04/20/20 24 04/20/2024 COMPR EHENS TYRONE METAB OLIC PANEL estimated GFR 73.19 mL/min /1.73m 2 The eGFR is calcu lated from a serum creat inine using the CKD-E PI 2020 equat ion. Other varia bles requi red for the equat ion are gende r and age; this equat ion does not inclu de a race coeff icien t. This equat ion has simil ar overa ll perfo rmanc e to previ ous equat ions excep t value s may diffe r, in parti cular , in patie nts with highe r value s of eGFR and young er-ag ed adult s. Not Available [address] [place], [address] 04/20/2024 12:48:42 04/20/20 24 04/20/2024 COMPR EHENS TYRONE METAB OLIC PANEL total protein 7.3 g/dL 6.4-8. 2 normal Not Available [address] [place], [address] 04/20/2024 12:48:42 04/20/20 24 04/20/2024 COMPR EHENS TYRONE METAB OLIC PANEL albumin 3.8 g/dL 3.4-5. 0 normal Not Available [address] [place], [address] 04/20/2024 12:48:42 04/20/20 24 04/20/2024 COMPR EHENS TYRONE METAB OLIC PANEL bilirubin, total 0.38 mg/dL 0.2-1. 0 normal Not Available [address] [place], [address] 04/20/2024 12:48:42 04/20/20 24 04/20/2024 COMPR EHENS TYRONE METAB OLIC PANEL alk phos 77 U/L 46-116 normal Not Available [address] [place], [address] 04/20/2024 12:48:42 04/20/20 24 04/20/2024 COMPR EHENS TYRONE METAB OLIC PANEL sodium 142 mmol/ L 136-14 5 normal Not Available [address] [place], [address] 04/20/2024 12:48:42 04/20/20 24 04/20/2024 COMPR EHENS TYRONE METAB OLIC PANEL potassium 4.1 mmol/ L 3.5-5. 1 normal Not Available [address] [place], [address] 04/20/2024 12:48:42 04/20/20 24 04/20/2024 COMPR EHENS TYRONE METAB OLIC PANEL chloride 105 mmol/ L 98-107 normal Not Available [address] [place], [address] 04/20/2024 12:48:42 04/20/20 24 04/20/2024 COMPR EHENS TYRONE METAB OLIC PANEL CO2 27.8 mmol/ L 21.0-3 2.0 normal Not Available [address] [place], [address] 04/20/2024 12:48:42 04/20/20 24 04/20/2024 COMPR EHENS TYRONE METAB OLIC PANEL anion gap 9.2 mmol/ L 3-11 normal Not Available [address] [place], [address] 04/20/2024 12:48:42 04/20/20 24 04/20/2024 COMPR EHENS TYRONE METAB OLIC PANEL AST 13 U/L 15-37 low Not Available [facility] [address] [place], [address] 04/20/2024 12:48:42 04/20/20 24 04/20/2024 COMPR EHENS TYRONE METAB OLIC PANEL ALT 29 U/L 14-59 normal Not Available [facility] [address] [place], [address] 04/20/2024 12:48:42 04/20/20 24 04/20/2024 MAGNE SIUM magnesium 2.1 mg/dL 1.8-2. 4 normal Not Available [address] [place], [address] 04/20/2024 12:48:43 04/20/20 24 04/20/2024 TROPO LEXUS I troponin I < 50 NG/L < or =60 Not Available [address] [place], [address] 04/20/2024 15:36:36 04/20/20 24 04/21/2024 PTT ACTIV ATED PTT activated 47.8 sec 23.6-3 2.8 high Hepar in Thera peuti c Range for PTT = 52-84 secon ds New Hepar in Thera peuti c Range 10/20 Not Available [address] [place], [address] 04/21/2024 00:48:08 04/20/20 24 04/21/2024 TSH TSH 3.23 uIU/m L 0.36-3 .74 normal Not Available [address] [place], [address] 04/21/2024 00:59:29 04/20/20 24 04/21/2024 TROPO LEXUS I troponin I < 50 NG/L < or =60 Not Available [address] [place], [address] 04/21/2024 00:59:30 04/21/20 24 04/21/2024 COMPR EHENS TYRONE METAB OLIC PANEL calcium 9.0 mg/dL 8.5-10 .1 normal Not Available [address] [place], [address] 04/21/2024 10:21:20 04/21/20 24 04/21/2024 COMPR EHENS TYRONE METAB OLIC PANEL glucose 90 mg/dL 74-106 normal Not Available [facility] [address] [place], [address] 04/21/2024 10:21:20 04/21/20 24 04/21/2024 COMPR EHENS TYRONE METAB OLIC PANEL BUN 20 mg/dL 7-18 high Not Available [facility] [address] [place], [address] 04/21/2024 10:21:20 04/21/20 24 04/21/2024 COMPR EHENS TYRONE METAB OLIC PANEL creatinine 1.0 mg/dL 0.55-1 .02 normal Not Available [address] [place], [address] 04/21/2024 10:21:20 04/21/20 24 04/21/2024 COMPR EHENS TYRONE METAB OLIC PANEL estimated GFR 64.49 mL/min /1.73m 2 The eGFR is calcu lated from a serum creat inine using the CKD-E PI 2020 equat ion. Other varia bles requi red for the equat ion are gende r and age; this equat ion does not inclu de a race coeff icien t. This equat ion has simil ar overa ll perfo rmanc e to previ ous equat ions excep t value s may diffe r, in parti cular , in patie nts with highe r value s of eGFR and young er-ag ed adult s. Not Available [address] [place], [address] 04/21/2024 10:21:20 04/21/20 24 04/21/2024 COMPR EHENS TYRONE METAB OLIC PANEL total protein 6.8 g/dL 6.4-8. 2 normal Not Available [address] [place], [address] 04/21/2024 10:21:20 04/21/20 24 04/21/2024 COMPR EHENS TYRONE METAB OLIC PANEL albumin 3.5 g/dL 3.4-5. 0 normal Not Available [address] [place], [address] 04/21/2024 10:21:20 04/21/20 24 04/21/2024 COMPR EHENS TYRONE METAB OLIC PANEL bilirubin, total 0.26 mg/dL 0.2-1. 0 normal Not Available [address] [place], [address] 04/21/2024 10:21:20 04/21/20 24 04/21/2024 COMPR EHENS TYRONE METAB OLIC PANEL alk phos 71 U/L 46-116 normal Not Available [address] [place], [address] 04/21/2024 10:21:20 04/21/20 24 04/21/2024 COMPR EHENS TYRONE METAB OLIC PANEL sodium 141 mmol/ L 136-14 5 normal Not Available [address] [place], [address] 04/21/2024 10:21:20 04/21/20 24 04/21/2024 COMPR EHENS TYRONE METAB OLIC PANEL potassium 4.3 mmol/ L 3.5-5. 1 normal Not Available [address] [place], [address] 04/21/2024 10:21:20 04/21/20 24 04/21/2024 COMPR EHENS TYRONE METAB OLIC PANEL chloride 107 mmol/ L 98-107 normal Not Available [address] [place], [address] 04/21/2024 10:21:20 04/21/20 24 04/21/2024 COMPR EHENS TYRONE METAB OLIC PANEL CO2 25.9 mmol/ L 21.0-3 2.0 normal Not Available [address] [place], [address] 04/21/2024 10:21:20 04/21/20 24 04/21/2024 COMPR EHENS TYRONE METAB OLIC PANEL anion gap 8.1 mmol/ L 3-11 normal Not Available [address] [place], [address] 04/21/2024 10:21:20 04/21/20 24 04/21/2024 COMPR EHENS TYRONE METAB OLIC PANEL AST 19 U/L 15-37 normal Not Available [facility] [place] [address] [place], [address] 04/21/2024 10:21:20 04/21/20 24 04/21/2024 COMPR EHENS TYRONE METAB OLIC PANEL ALT 25 U/L 14-59 normal Not Available [facility] [address] [place], [address] 04/21/2024 10:21:20 04/21/20 24 04/21/2024 LIPID 2 cholesterol 157 mg/dL <200 Not Available [address] [place], [address] 04/21/2024 10:21:20 04/21/20 24 04/21/2024 LIPID 2 triglyceride 96 mg/dL <150 Not Available [address] [place], [address] 04/21/2024 10:21:20 04/21/20 24 04/21/2024 LIPID 2 HDL cholesterol 53 mg/dL 40-60 Not Available Guera [address] [place], [address] 04/21/2024 10:21:20 04/21/20 24 04/21/2024 LIPID 2 calculated LDL 85 mg/dL <100 Natio nal Rekha stero l Educa tion Progr am (NCEP -ATPI II) class ifica tions : Rekha stero l <200 mg/dL Franco able Rekha stero l 200-2 39 mg/dL Borde rline High Rekha stero l >or=2 40 mg/dL High HDL <40 mg/dL Low HDL >or=6 0 mg/dL High LDL <100 mg/dL Optim al LDL 100-1 29 mg/dL Near Optim al/Ab ove Optim al LDL 130-1 59 mg/dL Borde rline High LDL 160-1 89 mg/dL High LDL >or=1 90 mg/dL Very High *The above refer ence range is for adult s 18 years or older . Not Available [address] [place], [address] 04/21/2024 10:21:20 04/21/20 24 04/21/2024 4 HR TROPO LEXUS QT troponin I < 50 NG/L < or =60 Not Available [address] [place], [address] 04/21/2024 10:23:32 04/21/20 24 04/21/2024 COMPL ETE BLOOD COUNT NO DIFF WBC 8.50 10_3/ uL 4.4-10 .8 normal Not Available [address] [place], [address] 04/21/2024 10:26:22 04/21/20 24 04/21/2024 COMPL ETE BLOOD COUNT NO DIFF RBC 5.06 10_6/ uL 3.93-5 .22 normal Not Available [address] [place], [address] 04/21/2024 10:26:22 04/21/20 24 04/21/2024 COMPL ETE BLOOD COUNT NO DIFF HGB 13.9 g/dL 11.2-1 5.7 normal Not Available [address] [place], [address] 04/21/2024 10:26:22 04/21/20 24 04/21/2024 COMPL ETE BLOOD COUNT NO DIFF HCT 42.2 % 36.0-4 6.0 normal Not Available [address] [place], [address] 04/21/2024 10:26:22 04/21/20 24 04/21/2024 COMPL ETE BLOOD COUNT NO DIFF MCV 83 fL 80-95 normal Not Available [facility] [address] [place], [address] 04/21/2024 10:26:22 04/21/20 24 04/21/2024 COMPL ETE BLOOD COUNT NO DIFF MCH 27.5 pg 27.0-3 3.0 normal Not Available [address] [place], [address] 04/21/2024 10:26:22 04/21/20 24 04/21/2024 COMPL ETE BLOOD COUNT NO DIFF MCHC 32.9 % 32.0-3 6.0 normal Not Available [address] [place], [address] 04/21/2024 10:26:22 04/21/20 24 04/21/2024 COMPL ETE BLOOD COUNT NO DIFF RDW 13.0 % 11.7-1 4.6 normal Not Available [address] [place], [address] 04/21/2024 10:26:22 04/21/20 24 04/21/2024 COMPL ETE BLOOD COUNT NO DIFF platelet count 212 10_3/ uL 130-40 0 normal Not Available [address] [place], [address] 04/21/2024 10:26:22 04/21/20 24 04/21/2024 COMPL ETE BLOOD COUNT NO DIFF MPV 10.0 fL 8.0-11 .0 normal Not Available [address] [place], [address] 04/21/2024 10:26:22 04/21/20 24 04/21/2024 PTT ACTIV ATED PTT activated 68.7 sec 23.6-3 2.8 high Hepar in Thera peuti c Range for PTT = 52-84 secon ds New Hepar in Thera peuti c Range 10/20 Not Available [address] [place], [address] 04/21/2024 10:36:23 04/21/20 24 04/21/2024 LIPID 2 cholesterol 157 mg/dL <200 Not Available [address] [place], [address] 04/21/2024 10:53:33 04/21/20 24 04/21/2024 LIPID 2 triglyceride 96 mg/dL <150 Not Available [address] [place], [address] 04/21/2024 10:53:33 04/21/20 24 04/21/2024 LIPID 2 HDL cholesterol 53 mg/dL 40-60 Not Available [facility] [address] [place], [address] 04/21/2024 10:53:33 04/21/20 24 04/21/2024 LIPID 2 calculated LDL 85 mg/dL <100 Natio nal Rekha stero l Educa tion Progr am (NCEP -ATPI II) class ifica tions : Rekha stero l <200 mg/dL Franco able Rekha stero l 200-2 39 mg/dL Borde rline High Rekha stero l >or=2 40 mg/dL High HDL <40 mg/dL Low HDL >or=6 0 mg/dL High LDL <100 mg/dL Optim al LDL 100-1 29 mg/dL Near Optim al/Ab ove Optim al LDL 130-1 59 mg/dL Borde rline High LDL 160-1 89 mg/dL High LDL >or=1 90 mg/dL Very High *The above refer ence range is for adult s 18 years or older . Not Available [address] [place], [address] 04/21/2024 10:53:33 04/21/20 24 04/21/2024 PTT ACTIV ATED PTT activated 55.2 sec 23.6-3 2.8 high Hepar in Thera peuti c Range for PTT = 52-84 secon ds New Hepar in Thera peuti c Range 10/20 Not Available [address] [place], [address] 04/21/2024 16:32:23 08/31/20 23 08/31/2023 trans -thor acic echoc ardio gram (TTE) (PROC ) No observ ation record ed. ba [facility] - Exercise Stress Test/Charan/Stre ss Echo Scheduling 1 [facility] [place], [address], 08/31/2023 11:13:18 09/04/20 23 08/28/2023 trans -thor acic echoc ardio gram (TTE) (PROC ) No observ ation record ed. Not Available 2022 11:09:14 09/20/19 24 09/19/2023 ED visit note ED Visit Note PATIEN T NAME: Aimee Dia UNIT #: [id number] ADMITT ING PROVID ER: Nathan Perez NP ACCOUN T #: [id number] PRIMAR Y CARE PROVID ER: ISA WHITE DATE OF ADMIT: : 1964 HPI Genera l Stated Compla int: GenMed ical Mode of arriva l: ambula tory. ZORAIDA: 3 Date/T anne Provid er Initia joseph Armenta ntatio n: 14:37. Limita tions to Docume ntatio n: no limita tions. Inform ation obtain ed by: gabe holliday, RN/MD and RN notes review ed. Histor y of Crystal holliday Illnes s Facial shingl es modera [...] intest inal: Denies odynop hagia Integu mentar y/Grayson sts Skin/B reast: Report s as per HPI and Report s rash Allerg ic/Imm unolog ic Allerg ic/Imm unolog ic: Denies throat swelli ng PFSH All Active Proble ms (Revthu @ 11:06 by Ofelia Perez, SURGERY ATTENDANT) Herpes zoster (Acute ) Abdomi nal bloati [...] (Revie thu @ 11:06 by Ofelia Perez, SURGERY ATTENDANT) Family histor y of colon cancer Histor y of placem ent of stent in LAD vogt ry artery 03/2014 [facility] No-chris w for appoin tment [facility] Consti pation Hypert ension Abdomi nal pain Asthma , exerci se induce d Tick bite Hypoth yroidi sm Dyspha ronaldo Surgic al Histor y (Revie thu @ 11:06 by Ofelia Perez, SURGERY ATTENDANT) H/O colono scopy (06/18) Dr Mauricio , normal , repeat in 10 years Histor y of esopha gogast roduod enosco py (EGD) (06/18) Dr Mauricio , normal , repeat PRN Histor y of C-sect ion Histor y of vogt ry artery stent placem ent Family Histor y (Revie thu @ 11:06 by Ofelia Perez, SURGERY ATTENDANT) Father Gliobl astoma Hyperl ipidem ia Heart diseas e Patern al Grandm other Gliobl astoma Mother Hypert ension Heart diseas e Social Histor y (Revie thu @ 11:06 by Ofelia Perez, SURGERY ATTENDANT) 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 Use Status : Former Tobacc o Use Quit Date: Tobacc o: How many years used: 10 Smokin g risk assess ment perfor med?: Yes Alcoho l Intake : curren t Alcoho l Intake freque ncy: 0-2 drinks per day Alcoho l type: beer and hard liquor Drug use: Occasi onally Substa nce use type: keely Valdez old member s: family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 with any questions or concerns regarding this patient's plan of care.? [facility] ? [facility] Fax Number:??? [phone] CC: Dictated by: JACINDA Smith Dictated: 03/08/24 Time: 720 Date: 4 Time: 1206 Transcribed Date: 03/08/24 Transcribed Time: 720 By: WAQAR This is privileged, confidential information, intended only for the provider named. Any use or distribution by any person other than this provider is strictly prohibited. If you receive this report in error, please notify us immediately at [phone] and return the original report to us at the address above. Thank you. JAMAR MEJIA RN [facility], [facility] 03/09/2024 16:26:46 Procedures Surgical History None recorded. Imaging Results Imaging Date Name Status LastModified by Organization Details LastModified Time 08/31/2023 trans-thoracic echocardiogram (TTE) (PROC) completed [facility] - Exercise Stress Test/Charan/Stress Echo Scheduling 1 [facility] [place], [address], 08/31/2023 11:13:18 08/28/2023 trans-thoracic echocardiogram (TTE) (PROC) completed Information not available 09/04/2023 11:09:14 09/19/2023 ED visit note completed han [address] [place], [address] 09/21/2023 15:46:33 04/20/2024 x-ray imaging report completed [address] [place], [address] 04/20/2024 12:17:47 Procedure Notes None recorded. Medical Equipment None Reported. Allergies Allergen ID Allergen Name Allergen Category Reaction Reaction Severity Criticality Documentation Date Start Date Code Code System Note Provider Name and Address Organization Details Recorded Time lisinopri l medicatio n cough mild Not available 07/24/20232013 13349 RxNorm cough Aller gyCod e: '3140 76'; Aller gyNam e: 'RAJIV NOPRI L'; Aller gyCon ceptT ype: 'RX Norm' ; Not Available [employer] 16:14:44 Medications Name Sig Start Date Stop Date Status Note LastModified by Organization Details LastModified Time cyclobenz aprine 10 mg tablet Take 1 tablet every day by oral route at bedtime for 5 days, for muscle spasm. 04/04 completed Not Available Not Available Not Available amoxicill in 500 mg capsule TAKE ONE CAPSULE BY MOUTH EVERY 12 HOURS FOR 10 DAYS 09/19 completed Not Available Not Available Not Available atorvasta tin 40 mg tablet 1 tab daily 09/06 completed Not Available Not Available Not Available atorvasta tin 80 mg tablet Take 1 tablet every day by oral route. 04/04 completed Not Available Not Available Not Available Xanax 0.5 mg tablet 1 tablet by mouth 09/10 completed Not Available Not Available Not Available azelastin e 0.05 % eye drops INSTIL 1 DROP INTO THE AFFECTED EYE(S) TWO TIMES A DAY 04/04 completed Not Available Not Available Not Available prednison e 10 mg tablet 6 po qd x 3d, 4 po qd x 3d, 2 po qd x 3d, 1 po qd x 3d, THEN STOP 08/28 completed Not Available Not Available Not Available ketoconaz ole 2 % shampoo APPLY TO AFFECTED AREA(S) ON SCALP; LET SET FOR 3-5 MIN THEN RINSE OFF. ALTERNAT E WITH HOME OTC ANTI-KAVON DRUFF SHAMPOO EVERY FEW WASHES active Not Available Not Available No t Available atorvasta tin 10 mg tablet Take 1 tablet by mouth once a day 09/10 completed not taking Not Available Not Available Not Available azithromy carolina 250 mg tablet 1 tab Daily 01/25 completed Not Available Not Available Not Available lidocaine 5 % topical cream APPLY TO INTACT SKIN ONLY FOUR TIMES A DAY NEEDED; DO NOT USE ON MUCOSAL MEMBRANE S 01/14 completed Not Available Not Available Not Available prednison e 20 mg tablet TAKE 2 TABLETS BY MOUTH DAILY 09/30 completed Not Available Not Available Not Available sertralin e 100 mg tablet 1/2 -1TAB QD 10/01 completed Not Available Not Available Not Available penicilli n V potassium 500 mg tablet Take 1 tablet every 8 hours by oral route. 09/19 completed Not Available Not Available Not Available Plavix 75 mg tablet Take 1 tablet every day by oral route. active Not Available Not Available No t Available valacyclo vir 500 mg tablet Take 2 tablets 3 times a day by oral route as directed . 01/14 completed Not Available Not Available Not Available omeprazol e 40 mg capsule,d elayed release Take 1 tab by mouth daily. 02/25 completed Not Available Not Available Not Available aspirin 81 mg tablet,de layed release 1 tablet by mouth once a day not taking 07/26 completed Not Available Not Available Not Available doxycycli ne monohydra te 100 mg tablet Take 1 tablet by mouth twice a day 12/08 completed Not Available Not Available Not Available amoxicill in 500 mg tablet Take 1 tablet 3 times a day by oral route. 09/30 completed Not Available Not Available Not Available carvedilo l 3.125 mg tablet Take 1 tablet twice a day by oral route. 04/04 completed Not Available Not Available Not Available Tessalon Perles 100 mg capsule 1 CAP three times daily 01/30 completed Not Available Not Available Not Available Nitrostat 0.4 mg sublingua l tablet Place 1 tablet under tongue 2017 active Not Available Not Available Not Avai lable losartan 25 mg tablet Take 1 tablet every day by oral route. active Per [facility] d/c summary Not Available Not Available Not Available gabapenti n 300 mg capsule Take 1 capsule 3 times a day by oral route. 01/14 completed Not Available Not Available Not Available lidocaine HCl 2 % mucosal solution Take 1 applicat ion twice a day by oral route as needed for 2 days. 09/30 completed Not Available Not Available Not Available omeprazol e 20 mg capsule,d elayed release 1 capsule by mouth once a day as needed Not taking 07/26 completed Not Available Not Available Not Available Aspirin Childrens 81 mg chewable tablet Take 1 tablet by mouth once a day 09/10 completed Not Available Not Available Not Available aspirin 81 mg tablet 1 tab daily 12/21 completed Not Available Not Available Not Available lisinopri l 5 mg tablet 1 tab qd 01/20 completed Not Available Not Available Not Available hydrochlo rothiazid e 25 mg tablet 1TAB daily 09/06 completed Not Available Not Available Not Available metoprolo l succinate ER 25 mg tablet,ex tended release 24 hr TAKE ONE-HALF TABLET BY MOUTH NIGHTLY 04/04 completed Not Available Not Available Not Available Pepcid 20 mg tablet Take 1 tablet twice a day by oral route as needed. active Not Available Not Available No t Available Ativan 0.5 mg tablet 1 tab three times daily 05/29 completed Not Available Not Available Not Available fluticaso ne propionat e 50 mcg/actua tion nasal spray,[employer] SPRAY ONE SPRAY IN EACH NOSTRIL TWICE A DAY 01/14 completed Not Available Not Available Not Available doxycycli ne hyclate 100 mg tablet TAKE ONE TABLET BY MOUTH TWICE A DAY 08/21 completed Not Available Not Available Not Available tobramyci n 0.3 %-dexamet hasone 0.1 % eye drops,[employer] INSTILL ONE DROP IN EACH EYE FOUR TIMES A DAY; RUB EXCESS INTO LID MARGIN. SHAKE BEFORE USING 04/04 completed Not Available Not Available Not Available rosuvasta tin 40 mg tablet TAKE ONE TABLET BY MOUTH EVERY DAY active Not Available Not Available No t Available Prilosec OTC 20 mg tablet,de layed release 1 TAB daily 12/21 completed Not Available Not Available Not Available metoprolo l tartrate 25 mg tablet 1/2 tab twice a day 09/06 completed Not Available Not Available Not Available aspirin 81 mg. Take 1 tab daily active Not Available Not Available No t Available Co Q-10 take 1 tab / day active Not Available Not Available No t Available ProAir HFA 90 mcg/actua tion aerosol inhaler Inhale 1-2 puffs by mouth every 4-6 hours as needed 02/25 completed Not Available Not Available Not Available Brilinta 90 mg tablet 1 tab bid 10/19 completed Not Available Not Available Not Available Refresh Celluvisc 1 % eye gel in a dropperet te INSTILL ONE DROP INTO AFFECTED EYES FOUR TIMES A DAY FOR 7 DAYS 04/04 completed Not Available Not Available Not Available Breo Ellipta 100 mcg-25 mcg/dose powder for inhalatio n take 1 puff inhalati on once daily 09/05 completed Not Available Not Available Not Available metoprolo l succinate ER 25 mg capsule sprinkle, ext. release 24 hr Take 0.5 capsules every day by oral route. active Not Available Not Available No t Available Artificia l Tears (carboxym ethylcell ulose) 1 % eye drops Apply 1 drop 4 times a day by ophthalm ic route for 7 days. 04/04 completed Not Available Not Available Not Available Zerviate 0.24 % eye drops in a dropperet te 04/04 completed Not Available Not Available Not Available Vitals Date Recorded Body height Body temperature Oxygen saturation Oxygen saturation in Arterial blood by Pulse oximetry Heart rate Body mass index (BMI) Body weight Systolic blood pressure Diastolic blood pressure Provider Name and Address Organization Details Last Updated DateTime 4 159.26 cm 96.9 [degF] 98 % 98 % 74 /min 23.2 kg/m2 54781.2 9 g 138 mm[Hg] 70 mm[Hg] Nancy Serra RN [facility] 4 11:22:16 Date Recorded Body height Body mass index (BMI) Body weight Respiratory rate Oxygen saturation Oxygen saturation in Arterial blood by Pulse oximetry Heart rate Body temperature Systolic blood pressure Diastolic blood pressure Systolic blood pressure Diastolic blood pressure Provider Name and Address Organization Details Last Updated DateTime 4 159.26 cm 23.1 kg/m2 21955.4 2 g 19 /min 99 % 99 % 65 /min 97.2 [degF] 193 mm[Hg] 100 mm[Hg] 188 mm[Hg] 96 mm[Hg] Alejandra Mcbride MA [facility] 4 10:52:46 Date Recorded Body height Body temperature Oxygen saturation Oxygen saturation in Arterial blood by Pulse oximetry Heart rate Respiratory rate Body mass index (BMI) Body weight Systolic blood pressure Diastolic blood pressure Provider Name and Address Organization Details Last Updated DateTime 4 159.26 cm 98.1 [degF] 98 % 98 % 77 /min 18 /min 22.4 kg/m2 23584.0 5 g 155 mm[Hg] 72 mm[Hg] Diane Zengeter [facility] 4 15:24:22 Date Recorded Body height Body mass index (BMI) Body weight Heart rate Systolic blood pressure Diastolic blood pressure Provider Name and Address Organization Details Last Updated DateTime 4 159.26 cm 22.3 kg/m2 05467.6 1 g 64 /min 128 mm[Hg] 82 mm[Hg] Sujatha Massey RN [facility] 4 08:18:55 Social History Question Answer Notes LastModified by Organizat ion Details LastModified Time Tobacco Smoking Status Former Smoker JAMAR MEJIA RN [facility], [facility] 08/21/2023 11:02:00 When Did You Quit Smoking? 16+yearssinc [email or web address] Information not available 08/21/2023 What Was The Date Of Your Most Recent Tobacco Screening? 01/15/2024 [email or web address] Information not available 01/15/2024 Has Tobacco Cessation Counseling Been Provided? No [email or web address] Information not available 08/21/2023 Do You Or Have You Ever Used Any Other Forms Of Tobacco Or Nicotine? No [email or web address] Information not available 08/21/2023 Sex: Female Functional [...] Recorded Time Tdap 07/21/2019 completed Not Available [facility] 06:27:29 Td(adult) unspecified formulation 01/13/2005 completed Not Available [facility] 07/24/2023 06:27:29 COVID-19, mRNA, LNP-S, PF, 100 mcg/0.5mL dose or 50 mcg/0.25mL dose 07/13/2021 completed Not Available [facility] 07/24/20 06:27:29 COVID-19 vaccine, vector-nr, rS-Ad26, PF, 0.5 mL 11/30/2020 completed Not Available [facility] 07/24/2023 06:27:30 Past Encounters Encounter ID Performer Location Encounter Start Date Encounter Closed Date Diagnosis/Indication Diagnosis SNOMED-CT Code Diagnosis ICD10 Code [id number] DRAKE KHANNA MD [address] [address] 08/21/2023 10:50:46 08/21/2023 11:29:57 Sore throat 562694383 J02.9 Streptococ lewis sore throat 49210612 J02.0 [id number] DIANE CERVANTES PA-C [address] [place] [address] 09/08/2023 13:05:14 09/08/2023 13:58:09 Sore throat 961757337 J02.9 [id number] CHLOÉ ERNST [address] [address] 09/17/2023 09:23:33 09/17/2023 10:07:58 Sore throat 481439336 J02.9 Infection of tooth 37087 8007 K04.7 [id number] ALTAGRACIA MCCAIN PA-C [address] [place] [address] 09/19/2023 11:11:28 09/19/2023 14:10:32 Herpes zoster 5147932 B02.9 Essential hypertension 86842110 I10 [id number] CHLOÉ ERNST [address] [address] 09/30/2023 11:15:19 09/30/2023 12:01:24 Herpes zoster 6343769 B02.[id number] [address] 10/02/2023 15:14:28 10/02/2023 16:03:59 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 [id number] ALTAGRACIA MCCAIN PA-C [address] [address] 10/17/2023 10:02:11 10/17/2023 11:45:47 Itching of eye 25340066 L29.8 Essential hypertension 84003152 I10 [id number] [address] [address] 01/15/2024 15:02:51 01/15/2024 16:57:40 Sore throat 873718045 J02.9 Muscle spa sm of cervical muscle of neck 4193002738 04 M62.830 [id number] [address] [address] 04/04/2024 08:05:40 04/04/2024 08:58:24 Atherosclerosis of coronary artery without angina pectoris 9940502943 57734 I25.10 Nicotine dependence 5629 4008 F17.200 Increased liver function 74178465 R94.5 Nonulcer dyspepsia 35761 07 K30 Health Concerns Section Related Observation LastModified by Organization Detai ls LastModified Time None Recorded Concern Status LastModified by Organization Details LastModified Time None Recorded Advance Directives Directive None Recorded Payers Encounter Date Sequence Insurance Name Policy Number Policy Ceja Covered Member ID Ceja Member ID Guarantor Name 09/30/2023 1 [employer] ([employer]ICA[employer]) Isa Ro [id number] Isa Ro 10/02/2023 1 [employer] ([employer]) Isa Ro [id number] Isa Ro 10/17/2023 1 [employer] ([employer]ICA[employer]) Isa Ro [id number] Isa Chuy Ro 01/15/2024 1 [facility] (MEDICAID) Isa Ro [id number] Isa Ro 04/04/2024 1 [facility] (MEDICAID) Isa Leungannmarie [id number] Isa Ro Notes Date Note Type Note [...] regularly taking advil and acetaminophen. CHLOÉ ERNST, MELECIO [address], [place], [address], [facility] 10/01/2023 11:07:31 10/02/2023 text/html HPI Notes: Is he re for complaints of shingles concern. -Had sore throat 08/21/23, treated with amoxicillin. -She called on 09/02 wondering about a toxic smell, having respiratory issues. Was recommended to call [facility] to discuss testing. -Called back on 09/08, felt her strep throat came back and wanted treatment. -Seen 09/08 in [facility], neg for flu, covid, strep. ? allergic [...] seen. - 09/24/23, went to ENT in [facility]; was told it was shingles, they saw [...] again on 09/30/23, states was dealing with shelter shingles, wanted to speak with nurse. Shingles had dried up but was having pain. Recommended to take gabapentin, APAP, advil. Recommended OV to be seen. -Seen 09/30/23, treated with gabapentin for this. Question if had TN or if this was post herpes pain. -Called 10/02/23, states shingles moved to inside her throat, wants a visit. Offered apt for today. 1.. Has a sore throat on the left [...] for both. This was on 09/19/23 at [facility]. + ear pain, left ear. No drainage or discharge from ear. States does not have any sores in her ear. Denies blurred vision, double vision. had 1 sore near the bottom of the left eye, went to the eye doctor, was told not in the pupil; [facility], 09/21/23. Was not provided any medications. States [...] helping it is hard to tell. ROSALBA MCKEON APRN [address], [place], [address], [facility]. 10/02/2023 15:54:43 10/17/2023 text/html HPI [...] home. Cannot endorse any other environmental exposures. ALTAGRACIA MCCAIN PA-C [address], [place], [address], [facility]. 10/17/2023 12:14:34 01/15/2024 text/html HPI [...] she is sitting, better with movement. ALTAGRACIA MCCAIN PA-C [address], [place], [address], [facility]. 01/15/2024 19:07:29 04/04/2024 text/html HPI Notes: Is he re for follow-up hospital stay. Was admitted to [facility] on 03/19/22.4 Discharged on 03/22/24 [address] dx was acute ST elevation MO due to occlusion of left anterior descending [...] 80mg daily CoQ10 supplementation Was referred to [facility] cardiology. has [facility] cardiology appt scheduled. She was having symptoms with coreg, this was stopped by oncall provider and switched back to metoprolol succ. BP had been 100/55 with coreg. She does admit that previously using metoprolol and her HR never raised up with activity and caused fatigue and had stopped. ORSALBA MCKEON, MARKETING ROTATION ASSOCIATE [address], [place], [address], [facility], [facility]. 04/04/2024 09:58:16 OBGyn Episode No OBEpisode recorded.
--- OUTSIDE RECORDS SUMMARY | 2024-05-19 08:30 | XMS_ITS | Encounter Summary ---
Author Organization [facility] Address [address] [place] [address] Care Team Providers Care Produce Associate Name Role Phone Pretty Avery MD Primary Care Provider [phone] Encounter Details Date Type Department Care Team (Latest Contact Info) Description 03/30/2014 10:20 EDT - 03/30/2014 20:09 EDT Hospital Encounter [facility] [address] [place] [address] Unknown, Provider, Discharge Disposition: Home or Self [...] on filedocumented in this encounter Care Teams Produce Associate Relationship Specialty Start Date End Date Pretty Avery MD [address] [place] [address] PCP - General 06/05/10 documented as of this encounter
--- OUTSIDE RECORDS SUMMARY | 2024-05-19 08:30 | XMS_ITS | Encounter Summary ---
Author Organization [facility] Address [address] [place] [address] Care Team Providers Care Electrical Maintenance Worker Name Role Phone Pretty Avery MD Primary Care Provider [phone] Encounter Details Date Type Department Care Team (Late st Contact Info) Description 06/18/2018 Results Only [facility] [phone] Marietta Mauricio, DO [address] [place] [address] Social History Tobacco Use Types [...] ? EZEQUIEL THOMAS ? Accession #: ? [id number] ? : ? 1965 (Age: 53) ??F [...] Meyers 06/19/2018 9:42 AM End of Report [facility] 06/18/2018 16:1 9 EDT 06/18/2018 16:19 EDT Marietta Mauricio DO PATHOLOGY ORDERABLES [facility] [address] [place] [address] documented in this encounter Visit Diagnoses Not on filedocumented in this encounter Care Teams Electrical Maintenance Worker Relationship Specialty Start Date End Date Pretty Avery MD [address] [place] [address] PCP - General 06/05/10 documented as of this encounter
--- OUTSIDE RECORDS SUMMARY | 2024-05-19 08:30 | XMS_ITS | Encounter Summary ---
Author Organization [facility] Address [address] [place] [address] Care Team Providers Care Stamp Classifier Name Role Phone Pretty Avery MD Primary Care Provider [phone] Encounter Details Date Type Department Care Team (Late st Contact Info) Description 02/15/2020 Lab Requisition [facility] Pathology & Laboratory Medicine - [address] [address] Outr Resulting Lab, Provider Social History Tobacco [...] - BROAD COVID TEST (02/15/2020 13:38 EDT) [facility] COVID-19 rt-PCR Result NEGATIVE Negative 02/17/2020 10:45 EDT [facility] Comment: 2019-novel Coronavirus (2019-nCoV) not [...] in accordance with CLIA regulations, College of [employer] (CAP) guidelines (Dec 01, 2019), and FDA guidance (Nov 12, 2019). This test is only for use under the Food and Drug Administration's Emergency Use Authorization. Swab ENTIRE NASOPHARYNX / Unknown 02/15/2020 13:38 EDT 02/15/2020 21:00 EDT Provider Outr Resulting Lab MICROBIOLOGY - GENERAL ORDERABLES [facility] [place], [place] * COVID-19 TESTING (02/15/2020 13:38 EDT) COVID-19 rt-PCR Result NEGATIVE Negative 02/17/2020 12:54 EDT [facility] Comment: 2019-novel Coronavirus (2019-nCoV) not [...] in accordance with CLIA regulations, College of [place]ologists (CAP) guidelines (Dec 01, 2019), and FDA guidance (Nov 12, 2019). This test is only for use under the Food and Drug Administration's Emergency Use Authorization. Performing Lab [facility] 02/17/2020 12:54 EDT [facility] Swab ENTIRE NASOPHARYNX / Unknown 02/15/2020 13:38 EDT 02/15/2020 21:00 EDT Provider Outr Resulting Lab MICROBIOLOGY - GENERAL ORDERABLES [facility] [address] [place] [address] [facility] [place], [place] documented in this encounter Visit Diagnoses Not on filedocumented in this encounter Care Teams Stamp Classifier Relationship Specialty Start Date End Date Pretty Avery MD [address] [place] [address] PCP - General 06/05/10 documented as of this encounter
--- OUTSIDE RECORDS SUMMARY | 2024-05-19 08:30 | XMS_ITS | Encounter Summary ---
Author Organization [facility] Address [address] [place] [address] Care Team Providers Care Crap Game Box Person Name Role Phone Pretty Avery MD Primary Care Provider [phone] Encounter Details Date Type Department Care Team (Latest Contact Info) Description 06/06/2010 18:54 EDT - 06/06/2010 23:59 EDT Hospital Encounter [address] [address] Pretty Avery MD [address] [place] [address] Discharge Disposition: Auto Discharge Social History Tobacco [...] on filedocumented in this encounter Care Teams Crap Game Box Person Relationship Specialty Start Date End Date Pretty Avery MD [address] [place] [phone] PCP - General 06/05/10 documented as of this encounter
--- OUTSIDE RECORDS SUMMARY | 2024-05-19 08:30 | XMS_ITS | Encounter Summary ---
Author Organization [facility] Address [address] [place] [address] Care Team Providers Care Photographic Printer Name Role Phone Pretty Avery MD Primary Care Provider [phone] Encounter Details Date Type Department Care Team (Late st Contact Info) Description 07/26/2021 Lab Requisition [facility] Pathology & [place] [address] Outr Resulting Lab, Provider Social History Tobacco [...] Lyme Ab Negative Negative 07/29/2021 9:57 EST [facility] Blood VENOUS BLOOD / Unknown 07/26/2021 10:55 EST 07/26/2021 21:29 EST Provider Outr Resulting Lab IMMUNOLOGY A ND SEROLOGY ORDERABLES Performing Organization Address City/State/[facility] Co de Phone Number [facility] [address] [place] [address] documented in this encounter Visit Diagnoses Not on filedocumented in this encounter Care Teams Photographic Printer Relationship Specialty Start Date End Date Pretty Avery MD [address] [place] [address] PCP - General 06/05/10 documented as of this encounter
--- OUTSIDE RECORDS SUMMARY | 2024-05-19 08:30 | XMS_ITS | Encounter Summary ---
Author Organization [facility] Address [address] [place] [address] Care Team Providers Care Manager Architectural Name Role Phone Pretty Avery MD Primary Care Provider [phone] Encounter Details Date Type Department Care Team (Late st Contact Info) Description 12/05/2015 Results Only [facility] [phone] Ezequiel Estrada MD [address] [place] [phone] Social History Tobacco Use Types Packs/Day Years [...] ? EZEQUIEL THOMAS ? Accession #: ? [id number] ? : ? 1965 (Age: 50) ??F [...] the atypical cells from the stroma. ??(Dr. Mcgovern)/[facility] Document reviewed and electronically signed by: [...] May 12/06/2015 1:10 PM End of Report [facility] 12/05/2015 10:3 3 EDT 12/06/2015 10:33 EDT Ezequiel Estrada MD PATHOLOGY ORDERABLES [facility] [address] [place] [address] documented in this encounter Visit Diagnoses Not on filedocumented in this encounter Care Teams Manager Architectural Relationship Specialty Start Date End Date Pretty Avery MD [address] [place] [address] PCP - General 06/05/10 documented as of this encounter
--- OUTSIDE RECORDS SUMMARY | 2024-05-19 08:30 | XMS_ITS | Encounter Summary ---
Author Organization [facility] Address [address] [place] [address] Care Team Providers Care Electronics Engineering Technician Name Role Phone Pretty Avery MD Primary Care Provider [phone] Reason for Visit * Reason Onset Date Comments Post-op Problem 12/17/2014 Encounter Details Date Type Department Care Team (Late st Contact Info) Description 12/17/2014 Telephone [facility] Cardiology - [address] [place], [place] [phone] Alex Freed, [address] [address] Post-op Problem Social History Tobacco [...] Encounter - Alex Freed DO - 12/17/2014 0091 EDT Isa called on 12/16/14 with complaints [...] at 18:00. Alex Freed DO 12/17/2014 11:53 Electrophonic Engineer documented in this encounter Plan of Treatment Not on file documented as of this encounter Visit Diagnoses Not on filedocumented in this encounter Care Teams Electronics Engineering Technician Relationship Specialty Start Date End Date Pretty Avery MD [address] [place] [phone] PCP - General 06/05/10 documented as of this encounter
--- OUTSIDE RECORDS SUMMARY | 2024-05-19 08:30 | XMS_ITS | Encounter Summary ---
Author Organization [facility] Address [address] [place] [address] Care Team Providers Care Digitizer Name Role Phone Pretty Avery MD Primary Care Provider [phone] Encounter Details Date Type Department Care Team (Late st Contact Info) Description 12/15/2014 9:30 EDT - 12/15/2014 15:15 EDT Hospital Encounter [facility] Cardiovascular Unit [address] [place] [address] Manpreet Naqvi MD [address] [place] [phone] Dilip Mahajan MD [address] [facility] [address] [place] [phone] Discharge Disposition: Home or Self Care Social [...] was performed by Dr. Mahajan. Phone # [phone] You have had a Cardiovascular Catheterization performed [...] Will contact pt today to reschedule. laborer cutting tool notified. 12/13/14 10:00, pt rescheduled to Thursday12/15/14. [...] JAHAIRA. * Michaelle Ellsworth, RN - 12/12/2014 3440 EDT Precardiac Cath Nursing Checklist Recent Labs: Lab Results Component Value Date BUN 10 04/01/2014 CREATININE 0.69 04/01/2014 HGB 12.6 04/01/2014 CALCGFR >60 04/01/2014 Hgt: Height: 157.5 cm (62) Wgt: Weight : 54.205 kg (119 lb 8 oz) Allergies: No Known Allergies Local Pharmacy [phone] [address] Cardiac History: Stress Test? No Reason for Cath: chest pain, hx of cad Anginal equivalent:: Cardiac Procedures: Previous PCI done at: [facility] Stent Type/Size: 03/31/14 2.5 x 12 resolute stent prox lad Cardiac surgery: no Medical/Surgical History : Patient has a past medical history of HTN (hypertension); HLD (hyperlipidemia); Chest pain; CAD (coronary artery disease); Family history of heart disease; and Hx of non-ST elevation myocardial infarction (NSTEMI). Patient has past surgical history that includes section. Chronic Risk Factors: HTN, HLD, Previous [place] and Previous PCI Smoking and Alcohol intake: [...] register on the 3rd floor [facility]. Transportation Issues: Patient/family instructed that they will need a designated pile driver engineer if they are discharged on the dayof the procedure. Medications: Medication list: Patient/family instructed to bring medication list with them on the day of the procedure. Anticoagulants/Antiplatelets: Takes brilinta bid, instructed to take aspirin 81 mg on 12/14/14-12/15/14. Anti-Anginal meds: none Michaelle Ellsworth RN documented in this encounter H&P Notes * Chun Nielsen MD - 12/15/2014 1044 EDT [employer] H&P PCP: Pretty Avery MD Tool Carrier: Date of Service: 12/15/2014 Chief Complaint: angina [...] The angina has been stable. Referred for [facility] to further evaluate. 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 Smoking status: [...] consent has been obtained. Chun Nielsen MD [employer] Pager [phone] documented in this encounter Procedure Notes * Dilip Mahajan Jr., MD - 12/15/2014 1143 EDT Cardiovascular Catheterization Laboratory Preliminary Report -- Catheterization Date of Service/Procedure: 12/15/2014 Attending Physician: Dilip Mahajan Jr., MD Fellow: Chun Nielsen MD Pre-Procedure Diagnosis/Indication: Isa oR is a 49 y.o. year old female [...] artery Procedure: She was brought to [facility] Cardiac Catheterization Laboratory for the procedure: [...] 4 weeks Dilip Mahajan Jr., MD PagerNumber: [phone] 12/15/2014 11:43 documented in this encounter Plan [...] EST) 09/26/2015 11:4 2 EST Scan 2 Pile Driver Engineer PROCEDURE/MINOR SHAYY GICAL ORDERABLES * INVASIVE CARDIOLOGY REPORT-SCANNED (12/19/2014 8:53 EDT) 12/19/2014 8:53 EDT Scan 2 Pile Driver Engineer PROCEDURE/MINOR SHAYY GICAL ORDERABLES * ECG REPORT - SCANNED (12/19/2014 8:17 EDT) 12/19/2014 8:17 EDT Scan 2 Pile Driver Engineer PROCEDURE/MINOR SHAYY GICAL ORDERABLES * LEFT HEART CATH (12/15/2014 11:26 EDT) Anatomical Region Laterality Modality Other 12/15/2014 11:2 6 EDT Narrative 12/18/2014 8:37 EDT [address]iology [address] [place] [address] Catheterization Laboratory Study Patient: Isa Ro ? Study Date: ?12/15/2014 ? Accession #: ? [id number] : ? 1965 Referring Physician: Pretty Avery [...] Right radial artery access. A 6 FR/10 Patient Access [employer] Sheath [place] SS .021 sheath was ?? advanced into [...] Dilip Mahajan Jr., MD - 12/18/[address] [place] [address] Catheterization Laboratory Study Patient: Isa Ro Study [...] DATA: Study status: Cardiac cath: elective. [facility] Sex: female. Patient is 49yr old. [...] artery access. A 6 FR/10 [employer] Sheath [place] SS .021sheath was advanced into the vessel. [...] EDT) 12/15/2014 10:1 2 EDT Narrative [facility] EKG - 12/15/2014 15:09 EDT ? [facility] ? Test Date: ?2014-12-15 Pat Name: ? ISA RO ?Department: ?? CVU ? Room: ? CVU37 Gender: ? F ?Rn Training: ?? [id number] : ?1965 ? Requested By: [facility] A Order Number: [id number] ? Reading MD: ?? JOHNNY PATEL MD ? Measurements Intervals ?[place] ? Rate: ? 64 ? P: ?70 TX: ? 155 ?QRS: ?48 QRSD: ? 82 ? T: ?72 QT: ? 434 ? QTc: ?450 ? Interpretive Statements SINUS RHYTHM NONSPECIFIC ST & T-WAVE ABNORMALITY Compared to ECG 03/31/2014 13:30:36 Sinus rhythm now present T-wave abnormality now present I reviewed the tracing and have either agreed or edited the findings in this report. Electronically Signed On 12-15-14 15:09:46 EDT by OJHNNY PATEL MD. Procedure Note Johnny Patel MD - 12/15/2014 [facility] Test Date: 2014-12-15 Pat Name: ISA RO Department: CVU Room: [facility] Gender: F Rn Training: [id number] : 1965 Requested By: RUTH Vera Order Number: [id number] Reading MD: JOHNNY VICTOR Measurements Intervals [place] Rate: 64 P: 70 TX: 155 QRS: 48 QRSD: 82 T: 72 [...] Velez MD CARDIAC ECG ORDER JAMI [facility] EKG * PROTIME (12/15/2014 10:04 EDT) [facility] Pro Time 10.3 9.5 - 12.3 secs 12/15/2014 10:37 [facility] I.N.R. 1.0 0.9 - 1.1 Ratio 12/15/2014 10:37 [facility] Comment: Moderate Intensity Coumadin INR = 2.0-3.0 Adjustments in anticoagulant therapy dose should be based upon the INR and NOT the Pro Time. Blood specimen (specimen) BLOOD SPECIMEN / Unknown 12/15/2014 10:04 EDT 12/15/2014 10:21 EDT Abiodun Velez MD HEMATOLOGY & PF4 ORDERABLES [facility] [address] [place] [address] * HEMAGRAM (12/15/2014 10:04 EDT) WBC 6.17 4.0 - 12.4 K/cmm 12/15/2014 10:28 [facility] RBC 4.76 3.86 - 5.04 M/cmm 12/15/2014 10:28 [facility] Hemoglobin 13.2 11.6 - 15.2 gm/dl 12/15/2014 10:28 [facility] HCT 40.0 34.9 - 44.4 % 12/15/2014 10:28 [facility] MCV 84 81 - 98 fl 12/15/2014 10:28 [facility] MCH 27.8 26.7 - 33.3 pg 12/15/2014 10:28 [facility] MCHC 33.1 32.1 - 35.9 gm/dl 12/15/2014 10:28 [facility] RDW-CV 13.7 11.7 - 14.6 % 12/15/2014 10:28 [facility] RDW-SD 41.6 37.6 - 50.3 fl 12/15/2014 10:28 [facility] PLT 245 141 - 320 K/cmm 12/15/2014 10:28 [facility] MPV 8.0 7.5 - 11.2 fl 12/15/2014 10:28 EDT [facility] Blood specimen (specimen) BLOOD SPECIMEN / Unknown 12/15/2014 10:04 EDT 12/15/2014 10:21 EDT Abiodun Velez MD HEMATOLOGY & PF4 ORDERABLES Performing Organization Address City/[facility]/ZIP Co de Phone Number [facility] [address] [place] [address] * ELECTROLYTES (12/15/2014 10:04 EDT) Sodium 141 136 - 145 mEq/L 12/15/2014 10:45 EDT [facility] Potassium 4.3 3.5 - 5.0 mEq/L 12/15/2014 10:45 EDT [facility] Chloride 103 96 - 110 mEq/L 12/15/2014 10:45 EDT [facility] CO2 28 24 - 32 mEq/L 12/15/2014 10:45 EDT [facility] Blood specimen (specimen) BLOOD SPECIMEN / Unknown 12/15/2014 10:04 EDT 12/15/2014 10:21 EDT Abiodun Velez MD CHEMISTRY & BLOOD GAS ORDERABLES Performing Organization Address [facility] Co de Phone Number [facility] [address] [place] [address] * CREATININE (12/15/2014 10:04 EDT) Creatinine 0.78 0.52 - 1.04 mg/dl 12/15/2014 10:45 EDT [facility] GFR, Calculated >60 >60 ml/min/1.7 3m2 12/15/2014 10:45 EDT [facility] Blood specimen (specimen) BLOOD SPECIMEN / Unknown 12/15/2014 10:04 EDT 12/15/2014 10:21 EDT Abiodun Velez MD CHEMISTRY & BLOOD GAS ORDERABLES [facility] [address] [place] [address] * BUN (12/15/2014 10:04 EDT) BUN 16 10 - 26 mg/dl 12/15/2014 10:45 EDT [facility] Blood specimen (specimen) BLOOD SPECIMEN / Unknown 12/15/2014 10:04 EDT 12/15/2014 10:21 EDT Abiodun Velez MD CHEMISTRY & BLOOD GAS ORDERABLES [facility] [address] [place] [address] documented in this encounter Visit Diagnoses Not [...] 1021 (New Bag - Prov ider: Maria Dle Rosario Deras RN)1300 (Completed - Provider: Alis [...] 12/15/2014 documented in this encounter Care Teams Digitizer Relationship Specialty Start Date End Date Pretty Avery MD [address] [place] [address] PCP - General 06/05/10 documented as of this encounter
--- OUTSIDE RECORDS SUMMARY | 2024-05-19 08:30 | XMS_ITS | Clinical Summary ---
Author Organization [facility] Address [address] [place] [address] Care Team Providers Care Diesel Engine Mechanic Name Role Phone Pretty Avery MD Primary Care Provider [phone] Allergies No known active allergies Medications Medication [...] NSTEMI (non-ST elevated myocardial infarction) ( [facility] [address] [address]) 03/30/2014 Surgical History Surgery Date Site/Laterality Comments [...] Last Done Comments Hepatitis C Screen 1965 RSV Immunization ( o r 60+ Years) (1 - 1-dose 60+ series) 2024 COVID-19 Vaccine ( season) 2024 Advance Directives For more information, please contact: [phone] * Full Code (Latest Code Status on File) Date Activated Date Inactivated Comments 12/15/2014 9:53 12/15/2014 18:00 Question Answer Comments Reason for decision includes: Full code consistent with overall plan of care Who participated in the discussion? Patient * Full Code Date Activated Date Inactivated Comments 03/30/2014 20:42 04/01/2014 17:36 Care Teams Diesel Engine Mechanic Relationship Specialty Start Date End Date Pretty Avery MD [address] [place] [address] [facility] - General 06/05/10
--- OUTSIDE RECORDS SUMMARY | 2024-05-19 08:30 | XMS_ITS | Encounter Summary ---
Author Organization [facility] Address [address] [place] [address] Care Team Providers Care Centrifugal Casting Machine Operator Name Role Phone Pretty Avery MD Primary Care Provider [phone] Encounter Details Date Type Department Care Team (Late st Contact Info) Description 08/23/2020 Lab Requisition [facility] Pathology & [place] [address] Outr Resulting Lab, Provider Social History Tobacco [...] rt-PCR Result NEGATIVE Negative 08/25/2020 8:37 EST [facility] Comment: [...] in accordance with CLIA regulations, College of [employer] (CAP) guidelines (Dec 01, 2019), and FDA guidance (Nov 12, 2019). This test is only for use under the Food and Drug Administration's Emergency Use Authorization. Swab ENTIRE NASOPHARYNX / Unknown 08/22/2020 13:10 EST 08/23/2020 15:58 EST Provider Outr Resulting Lab MICROBIOLOGY - GENERAL ORDERABLES [facility] [place] * COVID-19 TESTING (08/22/2020 13:10 EST) COVID-19 rt-PCR Result NEGATIVE Negative 08/25/2020 10:01 EST [facility] Comment: [...] in accordance with CLIA regulations, College of [employer] (CAP) guidelines (Dec 01, 2019), and FDA guidance (Nov 12, 2019). This test is only for use under the Food and Drug Administration's Emergency Use Authorization. Performing Lab [facility] 08/25/2020 10:01 EST [facility] Swab 08/22/2020 13:1 0 EST 08/23/2020 15:58 EST Provider Outr Resulting Lab MICROBIOLOGY - GENERAL ORDERABLES [facility] [address] [place] [address] [facility] [place] documented in this encounter Visit Diagnoses Not on filedocumented in this encounter Care Teams Centrifugal Casting Machine Operator Relationship Specialty Start Date End Date Pretty Avery MD [address] [place] [address] PCP - General 06/05/10 documented as of this encounter
--- OUTSIDE RECORDS SUMMARY | 2024-05-19 08:30 | XMS_ITS | Encounter Summary ---
Author Organization [facility] Address [address] [place] [address] Care Team Providers Care Conversion Worker Name Role Phone Pretty Avery MD Primary Care Provider [phone] Encounter Details Date Type Department Care Team (Late st Contact Info) Description 06/24/2023 Lab Requisition [facility] Pathology & [place] [address] Outr Resulting Lab, Provider Social History Tobacco [...] Lyme Ab Negative Negative 06/25/2023 11:00 EDT [facility] Blood VENOUS BLOOD / Unknown 06/24/2023 9:02 EDT 06/24/2023 17:06 EDT Provider Outr Resulting Lab IMMUNOLOGY A ND SEROLOGY ORDERABLES [facility] [address] [place] [address] documented in this encounter Visit Diagnoses Not on filedocumented in this encounter Care Teams Conversion Worker Relationship Specialty Start Date End Date Pretty Avery MD [address] [place] [address] PCP - General 06/05/10 documented as of this encounter
--- OUTSIDE RECORDS SUMMARY | 2024-05-19 08:30 | XMS_ITS | Continuity of Care Document ---
Author Organization [place] - [facility] Address [address] [place] [address] Assessment Encounter Date Assessment Date Assessment LastModified by Organization Details LastModified Time 04/04/2024 04/04/2024 The patient was seen and examined by myself in conjunction with Marisela Acuna, MELECIO student at [facility]. I interviewed, examined and I agree fully with the examination and management plans as outlined in note. khb The total time devoted to today's encounter, including both the ewhk-dt-txph time with the patient and/or family/caregiv er and oqt-iqyx-cm-fa ce time I personally spent is 45 [...] Details Last Modified Time Details Appointments Acute 2023 11:30A M Not available Not available Not available Nurse Visit 2023 08:00A M Not available Not available Not available Follow Up 2023 09:30A M Not available Not available Not available Lab None recorded. Referral None recorded. Procedures None recorded. Surgeries None recorded. Imaging None recorded. Medication Orders rosuvasta tin 40 mg tablet 2023 024 JOSELUIS [id number], [address] [facility], [place], [address], 04/04/2024 08:50:04 Patient TargetsNo targets recorded. Patient InstructionsNo instructions recorded. Reason for Referral Blood Bank Laboratory Technician Referral fo r Herpes zoster Referring Physician: Altagracia Delcid [facility], Encounter Date: 09/19/2023 Welfare Aide Referral for Herpes zoster Referring Physician: Altagracia Delcid [facility], Encounter Date: 09/19/2023 Physical Therapist Referral for Muscle spasm of cervical muscle of neck Referring Physician: Altagracia Delcid [facility], Encounter Date: 01/15/2024 Results Created Date Observation Date Name Description Value Unit Range Abnormal Flag Note LastModifiedBy Organization Detail LastModifiedTime 04/20/20 24 04/20/2024 x-ray imagi ng repor t Gabe t Name: Aimee Dia Unit #: [id number] Loc: ER Orderi ng Provid er: Miquel Laurent DO Accoun t #: [id number] Status : PRE ER Primar y Care Provid er: SeanIsa Date of Exam: Sex: F Admiss ion [...] obviou s pleura l effusi ons. IMPRES BENIGNO: No acute pulmon courtney findin gs on this single AP portab le view of the chest. DATA REPOSI TORY: RADIAT ION DOSE DELIVE RED: Ordere d By: Miquel Laurent DO CC: ------ ------ ------ ------ ------ ------ ------ ------ ------ ------ ------ ------ - Dictat ed By: Calos Crabtree M.D. 1200 1200 Transc ribed By: Alyse Crabtree MD 1200 This is privil eged, confid ential [...] the addres s above. Thank- you. han [facility] [address] , [place], [address] 04/20/2024 12:17:47 Result Notes None recorded. Problems Name Problem SNOMED Code Status Onset Date Resolution Date Notes Provider Name and Address Organization Details Recorded Time Hypothyr oidism 73036343 Active 201205/08/20 20 - Comments only - Rosalba Mckeon LOADING RACK SUPERVISOR - without medicati on. check next in January 02. Problem Code: E03.9; Problem Code Type: ICD-10; ROSALBA MCKEON APRN [address], [place], [address] , [facility] 4 14:32:58 Essentia l hyperten benigno 85372565 Active 201205/08/20 20 - Comments only - Rosalba Mckeon LOADING RACK SUPERVISOR - no desires to take her medicati on on a daily basis. [facility] ed daily use of medicati on and check her BP routinel y. Check BMP January 02. Problem Code: I10; Problem Code Type: ICD-10; ROSALBA MCKEON APRN [address], [place], [address] , [facility] 4 14:32:58 Atherosc lerosis of coronary artery without angina pectoris 83941456513 4103 Active 201305/08/20 20 - Comments only - Rosalba Mckeon LOADING RACK SUPERVISOR - No desires for statin. [facility] ed daily use of her losartan . Continue ASA. [facility] ed to FU with cardiolo gy. Problem Code: I25.10; Problem Code Type: ICD-10; [address], [place], [address] , [facility] 4 14:32:58 Hyperlip idemia 33984743 Active 201305/08/20 20 - Comments only - Rosalba Mckeon LOADING RACK SUPERVISOR - no desires for statin. Problem Code: E78.5; Problem Code Type: ICD-10; [address], [place], [address] , [facility] 4 14:32:58 Acute non-ST segment elevatio n myocardi al infarcti on 480783489 Active 2013 Problem Code: I21.4; Problem Code Type: ICD-10; [address], [place], [address] , [facility] 4 14:32:58 Gastroes ophageal reflux disease without esophagi tis 168659971 Active 201505/08/20 20 - Comments only - Rosalba Mckeon LOADING RACK SUPERVISOR - with duodenit is and dysphagi a. [facility] ed daily PPI, she is not interest ed. Continue with diet mgmt. Problem Code: K21.9; Problem Code Type: ICD-10; [address], [place], [address] , [facility] 4 14:32:58 Exercise induced bronchos pasm 442896954 Active 201505/08/20 20 - Comments only - Rosalba Mckeon APRN - no complain ts of. monitor for now. Problem Code: J45.990; Problem Code Type: ICD-10; [address], [place], [address] , [facility] 4 14:32:58 Dysphagi a 05411090 Active 201509/05/20 16 - Comments only - Isa Estrada MD - Patient is having worsenin g dyspagia and I will refer her to GI for an EGD to make sure there is not signific ant patholog y. Problem Code: R13.10; Problem Code Type: ICD-10; [address], [place], [address] , [facility] 4 14:32:58 Adult health examinat ion Active 2015 Problem Code: Z00.00; Problem Code Type: ICD-10; [address], [place], [address] , [facility] 4 14:32:58 Pain of right knee joint 22598953046 4100 Completed 201602/16/2017 01/17/20 17 - Comments only - Bell Chavirali nayana STUDENT ASSISTANT - - I do not think it [...] M25.561; Problem Code Type: ICD-10; Not Available [facility] 3 04:31:04 Duodenit is 23962169 Active 2017 Problem Code: K29.80; Problem Code Type: ICD-10; [address], [place], [address] , [facility]. 4 14:32:58 Fatigue 68224354 Active 201707/26/20 21 - Comments only - Rosalba marley tials include lyme disease, thyroid in origin, anemia. Check CBCD, iron stores, ferritin , TSH with R, tick and lyme panel. Problem Code: R53.83; Problem Code Type: ICD-10; [address], [place], [address] , [facility] 4 14:32:58 Migraine with aura 9093233 Active 2018 Problem Code: G43.109; Problem Code Type: ICD-10; [address], [place], [address] , [facility] 4 14:32:58 Chronic sinusiti s 12207023 Completed 201808/26/2019 Problem Code: J32.9; Problem Code Type: ICD-10; Not Available [facility] 3 04:31:05 Eustachi an tube disorder 44220837 Completed 201809/14/2019 Problem Code: H69.90; Problem Code Type: ICD-10; Not Available [facility] 3 04:31:05 Screenin g for malignan t neoplasm of breast Active 2019 Problem Code: Z12.39; Problem Code Type: ICD-10; [address], [place], [address] , [facility] 4 14:32:58 Angina pectoris 991479397 Active 202006/14/20 21 - Comments only - Isa Estrada MD [...] is not treated and she has hyperten benigno that is not at goal are concerni [...] ICD-10; ROSALBA MCKEON APRN [address], [place], [address] , [facility] 4 14:32:58 Carotid artery stenosis 68007913 Active 202007/26/20 21 - Comments only - Rosalba Mckeon APRN - Hyperlip idemia. CAD. Rev'd her US results and compared them to 2018 and 2012. Based on results, recommen ded [...] upset. ROSALBA MCKEON APRN [address], [place], [address] , [facility] 4 14:32:58 Seasonal allergic rhinitis 080131785 Active 2020 Problem Code: J30.2; Problem Code Type: ICD-10; ROSALBA MCKEON APRN [address], [place], [address] , [facility] 4 14:32:58 Gestatio nal diabetes mellitus 17051017 Active 2020 Problem Code: O24.419; Problem Code Type: ICD-10; [address], [place], [place], [address] [place] [address] 4 14:32:58 Family history of breast cancer 980247567 Active 2020 Problem Code: Z80.3; Problem Code Type: ICD-10; [address], [address] 4 14:32:58 Nicotine dependen ce 44714478 Active 2020 Problem Code: Z87.891; Problem Code Type: ICD-10; [address], [place], [place], [address] [place] [address] 4 14:32:58 Genuine stress incontin ence 49599873 Active 2020 Problem Code: N39.3; Problem Code Type: ICD-Katya; [address], [place], [place], [address] [place] [address] 4 14:32:58 Cramp in lower limb associat ed with sleep 26086227499 4104 Active 2020 Problem Code: G47.62; Problem Code Type: ICD-10; [address], [address] 4 14:32:58 Raynaud' s disease 685091001 Active 2020 Problem Code: I73.00; Problem Code Type: ICD-10; [address], [address] 4 14:32:58 Aphasia 11380369 Active 2020 Problem Code: R47.01; Problem Code Type: ICD-10; [address], [address] 4 14:32:58 Atypical squamous cells of undeterm ined signific ance on cervical Papanico laou smear 133459620 Active 2021 Problem Code: R87.610; Problem Code Type: ICD-10; [address], [address] 4 14:32:58 Cough 23036496 Active 2021 Problem Code: R05.8; Problem Code Type: ICD-10; [address], [address] 4 14:32:58 Family history of malignan t neoplasm of digestiv e organ 317417912 Active 2022 Problem Code: Z80.0; Problem Code Type: ICD-10; [address], [address] 4 14:32:58 Screenin g for malignan t neoplasm of colon Active 2022 Problem Code: Z12.11; Problem Code Type: ICD-10; [address], [facility] [address] [place] [address] 4 14:32:58 Abdomina l pain 54739200 Active 2022 Problem Code: R10.9; Problem Code Type: ICD-10; [address], [facility] [address] [address] 4 14:32:58 Altered bowel function 93999534 Active 2022 Problem Code: R19.4; Problem Code Type: ICD-10; ROSALBA MCKEON, JACK[address], [place], [address] , [facility]. 4 14:32:59 Acute subendoc ardial infarcti on 53776441 Completed 201306/10/2023 Problem Code: 410.72; Problem Code Type: ICD-9; Not Available [facility] 3 04:31:08 Posttrau matic headache 51396094 Completed 201809/10/2021 Problem Code: G44.309; Problem Code Type: ICD-10; Not Available [facility] 3 04:31:08 Disorder of eye region 241708949 Completed 201905/08/2020 Problem Code: H57.89; Problem Code Type: ICD-10; Not Available [facility] 3 04:31:08 Disorder of skin and/or subcutan eous tissue 58646135 Completed 201502/19/2016 Problem Code: L98.9; Problem Code Type: ICD-10; Not Available [facility] 3 04:31:08 Dyspnea 133934540 Completed 201502/19/2016 Problem Code: R06.09; Problem Code Type: ICD-10; Not Available [facility] 3 04:31:09 Neck pain 24396740 Completed 201409/10/2021 Problem Code: M54.2; Problem Code Type: ICD-10; Not Available [facility] 3 04:31:09 Hyperten sive disorder 64560033 Completed 201206/10/2023 Not Available [facility] 3 04:31:09 Visual disturba nce 69644886 Completed 201709/12/2019 Problem Code: H53.9; Problem Code Type: ICD-10; Not Available [facility] 3 04:31:09 Headache 54676893 Completed 201709/12/2019 Problem Code: R51; Problem Code Type: ICD-10; Not Available [facility] 3 04:31:09 Exposure to communic able disease Completed 201905/08/2020 Problem Code: Z20.828; Problem Code Type: ICD-10; Not Available [facility] 3 04:31:10 Constipa tion 56381012 Completed 201705/08/2020 Problem Code: K59.00; Problem Code Type: ICD-10; Not Available [facility] 3 04:31:10 Exposure to sting or bite by insect Completed 202112/08/2022 Not Available [facility] 3 04:31:10 Traumati c or non-trau matic injury 445492007 Completed 201605/08/2020 Problem Code: T14.8; Problem Code Type: ICD-10; Not Available [facility] 3 04:31:10 Sciatica 20058322 Completed 201809/10/2021 Problem Code: M54.30; Problem Code Type: ICD-10; Not Available [facility] 3 04:31:10 Bleeding from nose 049954279 Completed 202203/30/2023 Problem Code: R04.0; Problem Code Type: ICD-10; Not Available [facility] 3 04:31:11 Low back pain 805456548 Completed 202009/10/2021 Problem Code: M54.5; Problem Code Type: ICD-10; Not Available [facility] 3 04:31:11 Pain in left foot 03321497698 9107 Completed 202203/30/2023 Problem Code: M79.672; Problem Code Type: ICD-10; Not Available [facility] 3 04:31:11 Dizzines s and giddines s 225429364 Completed 202203/30/2023 Problem Code: R42; Problem Code Type: ICD-10; Not Available [facility] 3 04:31:11 Pain of right shoulder joint 14843847095 360333 Completed 201909/10/2021 Problem Code: M25.511; Problem Code Type: ICD-10; Not Available [facility] 3 04:31:11 Chest pain 84419883 Completed 201412/08/2022 Problem Code: R07.89; Problem Code Type: ICD-10; Not Available [facility] 3 04:31:12 Fever 366520556 Completed 202112/08/2022 Problem Code: R50.9; Problem Code Type: ICD-10; Not Available [facility] 3 04:31:12 Exposure to communic able disease Completed 201909/10/2021 Problem Code: Z20.9; Problem Code Type: ICD-10; Not Available [facility] 3 04:31:12 Coronary arterios clerosis 57233648 Completed 201306/10/2023 Not Available [facility] 3 04:31:13 Abnormal weight gain 112489296 Completed 202203/30/2023 Problem Code: R63.5; Problem Code Type: ICD-10; Not Available [facility] 3 04:31:13 Streptoc occal sore throat 26509819 Active 2022 ROSALBA MCKEON APRN [address], [facility] [address] , [facility] 4 14:32:58 Infectio n of tooth 248542160 Active 2023 ROSALBA MCKEON APRN [address], [facility] [address] , [facility] 4 14:32:58 Oral infectio n 301571154 Active 2023 ROSALBA MCKEON APRN [address], [facility] [address] , [facility] 4 14:32:58 Herpes zoster 0977556 Active 2023 ROSALBA MCKEON APRN [address], [place], [address] , [facility] 4 14:32:58 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 Medical Equipment None Reported. Allergies Allergen ID Allergen Name Allergen Category Reaction Reaction Severity Criticality Documentation Date Start Date Code Code System Note Provider Name and Address Organization Details Recorded Time lisinopri l medicatio n cough mild Not available 07/24/20232013 73200 RxNorm cough Aller gyCod e: '3140 76'; Aller gyNam e: 'RAJIV NOPRI L'; Aller gyCon ceptT ype: 'RX Norm' ; Not Available [facility] 3 16:14:44 Medications Name Sig Start Date [...] every day by oral route. active Per [facility] d/c summary Not Available Not Available Not [...] Updated DateTime 4 159.26 cm 22.3 kg/m2 40712.6 1 g 64 /min 128 mm[Hg] 82 mm[Hg] Sujatha Massey RN [facility] 4 08:18:55 Social History Question Answer Notes LastModified by Organizat ion Details LastModified Time Tobacco Smoking Status Former Smoker JAMAR MEJIA RN [facility], [facility] 08/21/2023 11:02:00 When Did You Quit Smoking? 16+yearssinc [email or web address] Information not available 08/21/2023 What Was The Date Of Your Most Recent Tobacco Screening? 01/15/2024 [email or web address] Information not available 01/15/2024 Has Tobacco Cessation Counseling Been Provided? No [email or web address] Information not available 08/21/2023 Do You Or Have You Ever Used Any Other Forms Of Tobacco Or Nicotine? No [email or web address] Information not available 08/21/2023 Sex: Female Functional [...] Recorded Time Tdap 07/21/2019 completed Not Available [facility] 06:27:29 Td(adult) unspecified formulation 01/13/2005 completed Not Available [facility] 07/24/2023 06:27:29 COVID-19, mRNA, LNP-S, PF, 100 mcg/0.5mL dose or 50 mcg/0.25mL dose 07/13/2021 completed Not Available [facility] 07/24/20 06:27:29 COVID-19 vaccine, vector-nr, rS-Ad26, PF, 0.5 mL 11/30/2020 completed Not Available [facility] 07/24/2023 06:27:30 Past Encounters Encounter ID Performer Location Encounter Start Date Encounter Closed Date Diagnosis/Indication Diagnosis SNOMED-CT Code Diagnosis ICD10 Code [id number] ROSALBA MCKEON APRN [address] [address] 04/04/2024 08:05:40 04/04/2024 08:58:24 Atherosclerosis of coronary artery without angina pectoris 0588067308 22922 I25.10 Nicotine dependence 5629 4008 F17.200 Increased liver function 28299080 R94.5 Nonulcer dyspepsia 72312 07 K30 Health Concerns Section Related Observation LastModified by Organization Detai ls LastModified Time None Recorded Concern Status LastModified by Organization Details LastModified Time None Recorded Payers Encounter Date Sequence Insurance Name Policy Number Policy Horan Covered Member ID Horan Member ID Guarantor Name 04/04/2024 1 [facility] (MEDICAID) Isa Ro [id number] Isa Ro Notes Date Note Type Note Provider Name and Address Organization Details Recorded Time 04/04/2024 text/html HPI Notes: Is he re for follow-up hospital stay. Was admitted to [facility] on 03/19/22.4 Discharged on 03/22/24 Discharge dx was acute ST elevation [place] due to occlusion of left anterior descending [...] 80mg daily CoQ10 supplementation Was referred to [facility] cardiology. has [facility]U [facility] cardiology appt scheduled. She was having symptoms with coreg, this was stopped by oncall provider and switched back to metoprolol succ. BP had been 100/55 with coreg. She does admit that previously using metoprolol and her HR never raised up with activity and caused fatigue and had stopped. ROSALBA MCKEON, LOADING RACK SUPERVISOR [address], [place], [address], [facility], [facility]. 04/04/2024 09:58:16 OBGyn Episode No OBEpisode recorded.
--- OUTSIDE RECORDS SUMMARY | 2024-05-19 08:30 | XMS_ITS | Encounter Summary ---
Author Organization [facility] Address [address] [place] [address] Care Team Providers Care Business Test Analyst Name Role Phone Pretty Avery MD Primary Care Provider [phone] Encounter Details Date Type Department Care Team (Late st Contact Info) Description 09/06/2013 Results Only [facility] ([facility] [address], [place] [id number] Jake Sabillon FNP [address] [place], [place] [address] Social History Tobacco Use Types Packs/Day Years [...] ANNEEZEQUIEL GREEN Chuy ? Accession #: ? [id number] : ? 1965 (Age: 48) ??F ?Collect Date: ? 09/06/2013 Location: ? [facility] ? Receive Date: ? 09/08/2013 Provider: ?JAKE SABILLON MAIL INSERTER Copy to: ? Specimen/Source: ?Pap Test, Cervix/Endocervix, [...] Report URVASHI SOOD 09/06/2013 09/08/2013 Jake Sabillon MAIL INSERTER PATHOLOGY ORDERABLES URVASHI SOOD [address] [place] [address] documented in this encounter Visit Diagnoses Not on filedocumented in this encounter Care Teams Business Test Analyst Relationship Specialty Start Date End Date Pretty Avery MD [address] [place] [address] PCP - General 06/05/10 documented as of this encounter
--- OUTSIDE RECORDS SUMMARY | 2024-05-19 08:30 | XMS_ITS | Encounter Summary ---
Author Organization [facility] Address [address] [place] [address] Care Team Providers Care Book Sorter Name Role Phone Pretty Avery MD Primary Care Provider [phone] Encounter Details Date Type Department Care Team (Late st Contact Info) Description 04/09/2018 Historical Results Only [facility] Lab - Main [address] [address] Ganesh Philip MD [address] [place] [address] Social History Tobacco Use Types Packs/Day [...] 0.000 - 0.034 ng/mL 04/09/2018 7:39 EDT [facility] Comment: Interpretation comments: ??Cutoff for [...] & BLOOD GAS ORDERABLES Performing Organization Address City/[facility]/ZIP Co de Phone Number [facility] * LIPASE (04/09/2018 6:35 EDT) Lipase 84 <251 U/L 04/09/2018 9:4 8 EDT [facility] 04/09/2018 6:35 EDT 04/09/2018 9:38 EDT Narrative [facility] - 04/09/2018 9:48 EDT AOT: 04/09/18 0938: LIP Ganesh Philip MD CHEMISTRY & BLOOD GAS ORDERABLES [facility] documented in this encounter Visit Diagnoses Not on filedocumented in this encounter Care Teams Book Sorter Relationship Specialty Start Date End Date Pretty Avery MD [address] [place] [address] PCP - General 06/05/10 documented as of this encounter
--- OUTSIDE RECORDS SUMMARY | 2024-05-19 08:30 | XMS_ITS | Referral Summary ---
Author Organization [facility] Address [address] [place] [address] Care Team Providers Care Mill Recorder Name Role Phone Pretty Avery MD Primary Care Provider [phone] Allergies No known active allergies Medications Medication [...] NSTEMI (non-ST elevated myocardial infarction) ( [facility]) 03/30/2014 Social History Tobacco Use Types Packs/Day [...] Advance Directives For more information, please contact: [phone] * Full Code (Latest Code Status on File) Date Activated Date Inactivated Comments 12/15/2014 9:53 12/15/2014 18:00 Question Answer Comments Reason for decision includes: Full code consistent with overall plan of care Who participated in the discussion? Patient * Full Code Date Activated Date Inactivated Comments 03/30/2014 20:42 04/01/2014 17:36 Care Teams Mill Recorder Relationship Specialty Start Date End Date Pretty Avery MD [address] [place] [address] PCP - General 06/05/10
--- OUTSIDE RECORDS SUMMARY | 2024-05-19 08:30 | XMS_ITS | Encounter Summary ---
Author Organization [facility] Address [address] [place] [address] Care Team Providers Care Loan Counselor Name Role Phone Pretty Avery MD Primary Care Provider [phone] Encounter Details Date Type Department Care Team (Latest Contact Info) Description 04/08/2018 9:44 EDT - 04/08/2018 23:59 EDT Hospital Encounter [facility] [address] [place] [address] Unknown, Provider, Discharge Disposition: Home or Self [...] Code Departure Means Destination Home or Self [facility] documented in this encounter Plan of Treatment Not on file documented as of this encounter Visit Diagnoses Not on filedocumented in this encounter Care Teams Loan Counselor Relationship Specialty Start Date End Date Pretty Avery MD [address] [place] [address] PCP - General 06/05/10 documented as of this encounter
--- OUTSIDE RECORDS SUMMARY | 2024-05-19 08:31 | XMS_ITS | Encounter Summary ---
Author Organization [facility] Address [address] [place] [address] Care Team Providers Care Entry Level Paralegal Name Role Phone Unavailable Primary Care Provider Unavailabl e Encounter Details Date Type Department Care Team (Late st Contact Info) Description 12/31/2007 14:07 EDT Hospital Encounter [address] [address] Skip Alcocer MD [address] [place] [address], [facility] [address] [place] [address] Discharge Disposition: Auto Discharge Social History Tobacco [...] 10:19 EST CYTOPATHOLOGY Routine 08/28/2008 0:00 EST HALF-WAY VIABILITY 12/31/2007 16:20 EDT HALF-WAY CHORIONIC BARRETO SAMPLING 12/31/2007 15:40 EDT documented [...] GE NERAL ORDERABLES Performing Organization Address City/State/[facility] Co de Phone Number [facility] [address] [place] [address] * CYTOPATHOLOGY (08/28/2008 0:00 EST) Pathology Report: CYTOPATHOLOGY REPORT ? Reports generated via electronic interface contain original data; ? however they are lacking the format of the original report. ? Caution should be taken when reading/interpreti ng unformatted reports. ? Name: ? EZEQUIEL THOMAS ? Accession #: ? [id number] ? : ? 1965 (Age: 43) ??F ?Collect Date: ? 08/28/2008 ? Location: ? [facility] ? Receive Date: ? 08/30/2008 ? [facility] ? Copy to: ? Specimen/Source: ?Pap [...] SOOD 08/28/2008 08/30/2008 Fred Reece [facility] PATHOLOGY ORDERAB LES Performing Organization Address City/State/[facility] Co de Phone Number [facility] [address] [place] [address] * HALF-WAY VIABILITY (12/31/2007 16:20 EDT) Anatomical Region Laterality Modality Other 12/31/2007 16:2 0 EDT Narrative 02/25/2009 13:06 EDT first trimester prior to cvs Please refer to the separate [facility] report. ??Contact Maternal Medicine. Procedure Note Magdalena Strickland MD - 02/25/2009 first trimester prior to cvs Please refer to the separate [facility] report. Contact Maternal Medicine. Magdalena Strickland MD [facility] ORDERABLE S * HALF-WAY CHORIONIC BARRETO SAMPLING (12/31/2007 15:40 EDT) Anatomical Region Laterality Modality Other 12/31/2007 15:4 0 EDT Narrative 02/25/2009 10:52 EDT [facility] DR ALCOCER Please refer to the separate [facility] report. ??Contact Maternal Medicine. Procedure Note Skip Alcocer MD - 02/25/2009 [facility] DR ALCOCER Please refer to the separate [facility] report. Contact Maternal Medicine. Skip Reyes MD [facility] ORDERA BLES documented in this encounter Visit Diagnoses Not on filedocumented in this encounter
--- OUTSIDE RECORDS SUMMARY | 2024-05-19 08:31 | XMS_ITS | Encounter Summary ---
Author Organization [facility] Address [address] [place] [address] Care Team Providers Care Steam Conditioner Filling Name Role Phone Unavailable Primary Care Provider Unavailabl e Encounter Details Date Type Department Care Team (Late st Contact Info) Description 04/30/2010 Results Only [facility] Medicine [address] [address] Pretty Avery MD [address] [place] [id number] Social History Tobacco Use Types Packs/Day Years [...]
--- OUTSIDE RECORDS SUMMARY | 2024-05-19 08:31 | XMS_ITS | Encounter Summary ---
Author Organization [facility] Address [address] [place] [address] Care Team Providers Care Disaster Recovery Specialist Name Role Phone Pretty Avery MD Primary Care Provider [phone] Encounter Details Date Type Department Care Team (Late st Contact Info) Description 12/02/2005 Results Only [facility] [address] [place] [address] Jake Sabillon FNP [address] [place], [place] [address] Social History Tobacco Use Types Packs/Day Years [...] ? ANNEEZEQUIEL GREEN ? Accession #: ? [id number] : ? 1965 (Age: 40) ??F ?Collect Date: ? 12/02/2005 Location: ? [facility] ? Receive Date: ? 12/04/2005 Provider: ?[employer] Copy to: ? Specimen/Source: ?ThinPrep Pap Test, Cervix/Endocervix, processed on [employer] ThinPrep Imaging System, with manual evaluation Last [...] GARCÍAP PATHOLOGY ORDERABLES [facility] [address] [place] [address] documented in this encounter Visit Diagnoses Not on filedocumented in this encounter Care Teams Disaster Recovery Specialist Relationship Specialty Start Date End Date Pretty Avery MD [address] [place] [address] PCP - General 06/05/10 documented as of this encounter
--- OUTSIDE RECORDS SUMMARY | 2024-05-19 08:31 | XMS_ITS | Encounter Summary ---
Author Organization [facility] Address [facility] [place] [address] Care Team Providers Care Behavioral School Counselors Name Role Phone None Primary Care Provider Unavailabl e Encounter Details Date Type Department Care Team (Late st Contact Info) Description 03/27/2024 Telephone Cardiology at [address] [place] [phone] Collins Yanes PA [facility] [place] [address] Social History Tobacco Use Types Packs/Day Years Used Date Smoking Tobacco: Former Smokeless Tobacco: Never Alcohol Use Standard Drinks/Week Comments Yes 14 (1 standard drink = 0.6 oz pu re alcohol) [facility] Utilities Answer Date Recorded In the [...] 03/27/2024 10:39 AM EDT Received page from bow making machine operator. Isa called in from home [...] Care Team (Late st Contact Info) Description 06/03/2024 4:00 PM EDT Office Visit Cardiology at [address] [address] Kaylee Sutherland MD [facility] [place] [address] documented as of this encounter Visit Diagnoses Not on filedocumented in this encounter Care Teams Behavioral School Counselors Relationship Specialty Start Date End Date None None PCP - General 03/19/24 04/20/24 documented as of this encounter
--- OUTSIDE RECORDS SUMMARY | 2024-05-19 08:31 | XMS_ITS | Encounter Summary ---
Author Organization [facility] Address [address] [place] [address] Care Team Providers Care Blood Bank Technician Name Role Phone Unavailable Primary Care Provider Unavailabl e Encounter Details Date Type Department Care Team (Late st Contact Info) Description 05/15/2010 Results Only [facility] Laboratory Services - [facility] [address] [place], [place] [id number] Jake Sabillon FNP [address] [place], [place] [id number] Social History Tobacco Use Types Packs/Day Years [...] ? EZEQUIEL THOMAS ? Accession #: ? [id number] ? : ? 1965 (Age: 45) ??F [...] [facility] 05/15/2010 05/17/2010 Jake Sabillon AIRPLANE ELECTRICIAN PATHOLOGY ORDERABLES [facility] [address] [place] [address] documented in this encounter Visit Diagnoses Not on filedocumented in this encounter
--- OUTSIDE RECORDS SUMMARY | 2024-05-19 08:31 | XMS_ITS | Encounter Summary ---
Author Organization [facility] [place] [address] Care Team Providers Care Natural Resources Instructor Name Role Phone Rosalba Archibald APRN Primary Care Provider [phone] Reason for Visit * Auth/Cert (Routine) Specialty Diagnoses / Procedures Referred By Contac t Referred To Contact Diagnoses Chest pain [place] Procedures [facility] Shawn Mendez MD [facility] [place] [address] [facility] Referral ID Status Reason Start Date Expiration Date Visits Re quested Visits Authorized [id number] 1 1 Encounter Details Date Type Department Care Team (Latest Contact Info) Description 04/22/2024 9:15 AM EDT - 04/22/2024 11:59 PM EDT Hospital Encounter Non-Invasive [place] [address] Discharge Disposition: Home Social History Tobacco Use Types Packs/Day Years Used Date Smoking Tobacco: Former Smokeless Tobacco: Never Alcohol Use Standard Drinks/Week Comments Yes 14 (1 standard drink = 0.6 oz pu re alcohol) [facility] Utilities Answer Date Recorded In the past 12 months has [employer], gas, oil, or water company threatened to shut off services in your home? No 04/22/2024 Hunger Vital Sign Answer Date Recorded Within the past 12 months, y ou worried that your food would run out before you got the money to buy more. Never true 04/22/20 24 Within the past 12 months, t he food you bought just didn't last and you didn't have money to get more. Never true 04/22/2024 PRAPARE - Transportation Answer Date Re corded In the past 12 months, has l ack of transportation kept you from medical appointments or from getting medications? No 05/2024 In the past 12 months, has l ack of transportation kept you from meetings, work, or from getting things needed for daily living? No 04/22/2024 Housing Stability Vital Sign Answer Rodrigo e Recorded In the last 12 months, was t here a time when you were not able to pay the mortgage or rent on time? No 04/22/2024 In the past 12 months, how m any times have you moved where you were living? 1 04/22/2024 At any time in the past 12 m [facility], were you homeless or living in a half-way (including now)? No 04/22/2024 DH IPV Inpatient Questions Answer Date Recorded Does Anyone Try to Keep You From Having Contact with Others or Doing Things Outside Your Home? no 04/22/2024 Feels Threatened by Someone no 05/2024 Feels Unsafe at Home or Work/School no 04/22/2024 Physical Signs of Abuse Present no 04/22/2024 Sex and Gender Information Value Date Recorded Sex Assigned at Not on file Gender Identity Not on file Sexual Orientation Not on file documented as of this encounter Medications at Time of Discharge Medication Sig Dispensed Refills Start Date End Date losartan (Cozaar) 25 mg tablet Take 1 tablet by mouth daily. 90 tablet 3 04/22/2024 metoprolol succinate XL (Toprol-XL) 25 mg ER 24 hr tablet Take 0.5 tablets by mouth nightly. 30 tablet 03/27/2024 aspirin 81 mg chewable tablet Take 81 [...] capsule 3 03/23/2024 ketoconazole (NIZORAL) 2 % ShampooIndications:Sebo rrheic dermatitis Apply topically to scalp, let sit 3-5 minutes then rinse off. Alternate with home OTC anti dandruff shampoo every few washes 120 mL 3 12/08/2023 documented as of this encounter Plan of Treatment Upcoming Encounters Date Type Department Care Team (Late st Contact Info) Description 06/03/2024 4:00 PM EDT Office Visit Cardiology at [address] [address] Kaylee Sutherland MD [facility] [place] [address] documented as of this encounter Procedures Procedure Name Priority Date/Time Associated Diagnosis Comments ECHO LMTD W CONTRAST W LMTD SPEC DOPP COLOR DOPP Routine 04/22/2024 1:08 PM EDT Chest pain, unspecified type documented in this encounter Visit Diagnoses Not on filedocumented in this encounter Administered Medications Inactive Administered Medications - up to 3 most recent administrations Medication Order MAR Action Action Date Dose Rate Site perflutren protein-A microsphers (Optison) (0.22 mg/mL) injection 0.5 mL 0.5 mL, Intravenous, ONCE PRN, 1 dose, Starting on Thu04/22/24 at 1308, Until Thu04/22/24 at 1309, for enhancement of sub-optimal echo images, Echo Lab (Intra-Procedure), Routine Given 04/22/2024 1:09 PM EDT 0.5 mLs documented in this encounter Care Teams Natural Resources Instructor Relationship Specialty Start Date End Date Rosalba Archibald APRN [address] [place] [address] PCP - General Family Medicine 04/21/24 documented as of this encounter
--- OUTSIDE RECORDS SUMMARY | 2024-05-19 08:31 | XMS_ITS | Encounter Summary ---
Author Organization [facility] [place] [address] Care Team Providers Care Sole Seamer Name Role Phone Rosalba Archibald APRN Primary Care Provider [phone] Reason for Visit * Auth/Cert (Routine) Specialty Diagnoses / Procedures Referred By Contac t Referred To Contact Diagnoses Chest pain [place] Procedures EMERGENCY IPI Shawn Mendez MD [facility] [place] [address] [facility] Referral ID Status Reason Start Date Expiration Date Visits Re quested Visits Authorized [id number] 1 1 Encounter Details Date Type Department Care Team (Latest Contact Info) Description 04/21/2024 7:24 PM EDT - 04/22/2024 1:58 PM EDT Hospital Encounter Heart and Vascular Unit Level 4 [place] [id number] Kiran Amador MD [facility] [place] [address] Katia Moore MD [facility] [place] [address] Brendon Hayes MD [facility] [place] [address] Shawn Mendez MD [facility] [address] [address] Chest pain, unspecified type Discharge Disposition: Home Social History Tobacco Use Types Packs/Day Years Used Date Smoking Tobacco: Former Smokeless Tobacco: Never Alcohol Use Standard Drinks/Week Comments Yes 14 (1 standard drink = 0.6 oz pu re alcohol) [facility] Utilities Answer Date Recorded In the [...] living in a longterm (including now)? No 04/22/2024 DH IPV Inpatient [...] Sign Reading Time Taken Comments Blood Pressure 149/67 04/22/2024 11:44 AM EDT Pulse 63 04/22/2024 11:44 AM EDT Temperature 37.2 ??C (99 ??F) 04/22/2024 11:44 AM EDT Respiratory Rate 16 04/22/2024 11:44 AM EDT Oxygen Saturation 99% 04/22/2024 11:44 AM EDT Inhaled Oxygen Concentration - - Weight 54.2 kg (119 lb 6.4 oz) 04/22/2024 3:51 A M EDT Height 157.5 cm (5' 2) 04/21/2024 7:24 PM EDT Body Mass Index 21.84 04/21/2024 7:24 PM EDT documented in this encounter Discharge Summaries * Brendon Hayes MD - 04/22/2024 1:02 PM EDT Discharge Summary Patient Name: Isa Ro Patient Age: 59 y.o. Language: Kenyan Admit date: 04/21/2024 Discharge date and time: 04/22/2024, Attening Physician: Brendon Hayes MD Discharge Physician: Brendon Hayes MD Follow-up Recommendations for Providers: Follow-up results of the 2D echocardiogram Patient does have an appointment with cardiology later this month. Discharge Diagnoses (Hospital Problems) and Secondary Diagnoses (Chronic Problems): Active Hospital Problems Diagnosis Chest pain Primary hypertension Sinus bradycardia Musculoskeletal pain of left upper extremity Resolved Hospital Problems No resolved problems to display. Active Non-Hospital Problems Diagnosis Acute ST elevation myocardial infarction (STEMI) due to occlusion of left anterior descending (LAD)coronary artery Operations/Major Procedures: Operations: * No surgery found * Other Major Procedures: None History of Presentation: Isa Ro is a 59 y.o. female with history of coronary disease s/p PCI to LAD in 2013, STEMI o s/p PCI to mLAD in 03/19/2024, HTN, Hypothyroidism, Asthma presents to [facility] with chest pain. On chart review, discharge summary from 03/22/2024: Patient was admitted from 03/19/2024 to 03/22/2024 for anterolateral STEMI with occluded proximal LAD status post PCI with drug-eluting stent.. 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 Patient is apparently having 2 different kinds of chest pains. States post PCI she wanted to get more activity/exercise and hence started walking up the hill, and after some distance she did noticed sharp left-sided chest pain which improved with resting, this was about 3 weeks post PCI. About 3 days ago she was at the cardiac rehab wanting to get more activity under supervision and as soon as she started on the treadmill she noticed some sharp pain under her left arm which she thought it was musculoskeletal as she was holding on something with her left upper extremity however the staff stopped her from proceeding further and got an EKG which were concerning for T wave inversions. And henceshe was sent to the ER for further evaluation and management. She also states currently she has left shoulder pain which is likely secondary to just staying in bed and feels stiff and also has pain in her left upper chest which is worse with touching/palpation. Hospital Course: # Musculoskeletal chest pain # Stable angina Patient apparently is having 2 different kinds of chest pain, her symptoms are concerning for stable angina. However the current chest pain she is having looks like is more musculoskeletal in nature. Discussed the case with cardiology-was okay with discharge, no indication for left heart catheterization at this time. Ordered 2D echocardiogram to look for any new regional wall motion abnormalities-is still pending Heparin was initially started and later discontinued. Patient's troponin of 11 in-house, noted during the last heart hospitalization prior to discharge was 2406. Reviewed EKG-noted significant T wave inversions in lead 1, avl, V2 and V3 which is new compared toEKG from 03/19/2024, but these T wave inversions could be post STEMI EKG changes. Patient was transferred from [facility] for chest pain evaluation. Noted that troponins were negative at that time and EKG revealed evidence of T wave inversions in lead I, aVL and V2-V6. # Coronary artery disease status post PCI to LAD, 2013 # Recent STEMI status post PCI to mid LAD(100% stenosis), 03/19/2024 Patient was hemodynamically stable Heart rates ranging between 50s to 60s beats per minute. LDL of 99, CMP within normal limits with potassium of 4.2 and creatinine of 0.79. CBC within normallimits Continued with aspirin 81 mg daily, Plavix 75 mg daily-patient will need to be on dual antiplatelettherapy for at least 1 year. Continued with atorvastatin 80 mg daily, nitro as needed for pain. 2D echocardiogram from 03/19/2024-noted LVEF of 49%, LAD territory wall motion abnormalities predominantly in the LV apex, no LV thrombus, RV, no significant valvular abnormalities. # Hypertension- # Asymptomatic bradycardia Patient states that she was on Coreg which was eventually changed to metoprolol because her heart rates and blood pressures were too low. her heart rate is currently 50 to 60s. For cardioprotective benefit, continued on metoprolol succinate 12.5 mg daily and losartan 25 mg daily for better blood pressure control and also for ASCVD. Given prescriptions for losartan. Functional and Cognitive Status: Good Important Studies and Lab Data: Labs: Lab Results Component Value Date WBC 6.95 04/22/2024 WBC 11.6 (H) 03/22/2024 HGB 12.2 04/22/2024 HGB 13.5 03/22/2024 HCT 38.1 04/22/2024 HCT 40.3 03/22/2024 PLATELET 192 04/22/2024 PLATELET 232 03/22/2024 Recent Labs 04/21/24 2150 INR 1.0 Lab Results Component Value Date NA 142 04/22/2024 NA 138 03/22/2024 K 4.2 04/22/2024 K 4.1 03/22/2024 CL 106 04/22/2024 CL 104 03/22/2024 CO2 22 04/22/2024 CO2 24 03/22/2024 BUN 14 04/22/2024 BUN 18 03/22/2024 CREATININE 0.79 04/22/2024 CREATININE 0.87 03/22/2024 Recent Labs 04/21/24 2150 TSH 6.58* Recent Labs 03/19/24 0525 HA1C 5.6 Recent Labs 04/22/24 0440 04/21/24 2150 TROPONINTHS 11 11 Lab Results Component Value Date CHLPL 170 04/22/2024 CHLPL 324 03/19/2024 HDL 55 04/22/2024 HDL 68 03/19/2024 TRIG 126 04/22/2024 TRIG 200 03/19/2024 LDLCHOL 216 03/19/2024 LDLDIRECT 99 04/22/2024 Pending Studies and Lab Data: 2D echocardiography Discharge Conditions/Prognosis: Good Discharge to: Home Updated Allergies/ADRs: No Known Allergies Immunizations Given this Hospitalization: There is no immunization history on file for this patient. Discharge Medications: Your Medications New Medications Dose Details losartan 25 mg tablet Commonly known as: Cozaar Take 1 tablet by mouth daily. 25 mg Quantity: 90 tablet Refills: 3 Continued medications, unchanged Dose Details aspirin 81 mg chewable tablet Take 81 mg by mouth daily. 81 mg Quantity: 30 tablet Refills: 3 atorvastatin 80 mg tablet Commonly known as: Lipitor Take 1 tablet by mouth daily. 80 mg Quantity: 30 tablet Refills: 3 clopidogreL 75 mg tablet Commonly known as: Plavix Take 1 tablet by mouth daily. 75 mg Quantity: 90 tablet Refills: 3 famotidine 20 mg tablet Commonly known as: Pepcid Take 1 tablet by mouth 2 times daily as needed. 20 mg Quantity: 30 tablet Refills: 12 ketoconazole 2 % Shampoo Commonly known as: NIZORAL Apply topically to scalp, let sit 3-5 minutes then rinse off. Alternate with home OTC anti dandruffshampoo every few washes Quantity: 120 mL Refills: 3 metoprolol succinate XL 25 mg ER 24 hr tablet Commonly known as: Toprol-XL Take 0.5 tablets by mouth nightly. 12.5 mg Quantity: 30 tablet Refills: 0 nitroGLYcerin 0.4 mg sublingual tablet Commonly known as: Nitrostat Place 1 tablet under the tongue every 5 minutes as needed for Chest pain. 0.4 mg Quantity: 90 tablet Refills: 12 ubiquinone (Coenzyme Q10) 50 mg capsule Commonly known as: Ubiquinone Take 1 capsule by mouth daily. 50 mg Quantity: 30 capsule Refills: 3 Smoking Status at Discharge: Social History Tobacco Use Smoking Status Former Smokeless Tobacco Never Instructions Given to Patient at Discharge: Patient Instructions Call your doctor if: Chest pain, dyspnea, pain or swelling in legs occurs, or for weight gain of 2 pounds overnight or 5pounds in 5 days. If you have non-emergent questions, prior to your follow-up visit call: Thursday-Thursday between the hours of 8AM-5PM please call the Cardiology Clinic [phone] to speak with a nurse. All other hours please call the Hospital Inspector [facility] [place] [phone] and ask to speak to the cardiovascular hospitalist on-call. For any emergent questions, please call 911 or visit your nearest emergency department/urgent care center Activity-as tolerated. Follow up Appointments: Doctor Where Phone # Date Time PCP Rosalba Archibald APRN [address] [place] [address] Patient tells me that she just saw the PCP about 2 weeks ago and does not want me to schedule an appointment with her, she likes to see her PCP as needed. [facility] Cardiology Clinic [phone] You mentioned that you have an appointment withcardiologist on May 09, 2024, make sure to follow-up with the appointment Hello General Instructions None Future Appointments and Orders Future Appointments and Orders Future Appointments Provider Department Dept Phone 05/09/2024 10:40 AM Herlinda Weaver PA Cardiology at [facility] Arrive at: Clinical Pharmacy Specialist Area [phone] Discharge References/Attachments None More than 30 minutes were spent on this discharge including documentation, [id number] time with patient, patient education, sales order processor, and coordination pharmacy, follow-up and other patient care. Brendon Hayes MD 04/22/2024 1:13 PM documented in this encounter Discharge Instructions * Patient Instructions* Brendon Hayes MD - 04/22/2024 12:59 PM EDT Call your doctor if: Chest pain, dyspnea, pain or swelling in legs occurs, or for weight gain of 2 pounds overnight or 5pounds in 5 days. If you have non-emergent questions, prior to your follow-up visit call: Thursday-Thursday between the hours of 8AM-5PM please call the Cardiology Clinic [phone] to speak with a nurse. All other hours please call the Hospital Inspector [facility] [place] [phone] and ask to speak to the cardiovascular hospitalist on-call. For any emergent questions, please call 911 or visit your nearest emergency department/urgent care center Activity-as tolerated. Follow up Appointments: Doctor Where Phone # Date Time PCP Rosalba Archibald APRN [address] [place], [place] [address] Patient tells me that she just saw the PCP about 2 weeks ago and does not want me to schedule an appointment with her, she likes to see her PCP as needed. [facility] [employer] Cardiology 4A Clinic [phone] You mentioned that you have an appointment withcardiologist on May 09, 2024, make sure to follow-up with the appointment Courtney * Attachments The following attachments cannot be sent through Care Everywhere. * Angina: Stable: Management (Kenyan) documented in this encounter Medications at Time [...] 3 12/08/2023 documented as of this encounter Progress Notes * Brendon Hayes MD - 04/22/2024 7:57 AM EDT Inpatient Cardiology Progress Note Patient Name: Isa Ro Service: Hospitalist service 2 Responsible Attending: Brendon Hayes MD Reason for continued hospitalization: Chest pain and further workup Active Problems: Active Hospital Problems Diagnosis Chest pain Resolved Hospital Problems No resolved problems to display. Interval History: Isa Ro is a 59 y.o. female with history of coronary disease s/p PCI to LAD in 2013, STEMI o s/p PCI to mLAD in 03/19/2024, HTN, Hypothyroidism, Asthma presents to [facility] with chest pain. On chart review, discharge summary from 03/22/2024: Patient was admitted from 03/19/2024 to 03/22/2024 for anterolateral STEMI with occluded proximal LAD status post PCI with drug-eluting stent.. 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 Patient is apparently having 2 different kinds of chest pains. States post PCI she wanted to get more activity/exercise and hence started walking up the hill, and after some distance she did noticed sharp left-sided chest pain which improved with resting, this was about 3 weeks post PCI. About 3 days ago she was at the cardiac rehab wanting to get more activity under supervision and as soon as she started on the treadmill she noticed some sharp pain under her left arm which she thought it was musculoskeletal as she was holding on something with her left upper extremity however the staff stopped her from proceeding further and got an EKG which were concerning for T wave inversions. And henceshe was sent to the ER for further evaluation and management. She also states currently she has left shoulder pain which is likely secondary to just staying in bed and feels stiff and also has pain in her left upper chest which is worse with touching/palpation. The case was discussed with the cardiology team, recommended to hold off on the left heart catheterization for now until they are complete evaluation. To discontinue heparin given the current pain ismore musculoskeletal Review of Systems: Review of Systems Denies any shortness of breath, diaphoresis, nausea, vomiting, abdominal pain currently. Telemetry: HR: Shows evidence of sinus bradycardia with lowest heart rate of 48, no other evidence of high-grade AV block or malignant arrhythmias. Meds: Scheduled Meds: aspirin 81 mg Oral Daily atorvastatin 80 mg Oral QPM clopidogreL 75 mg Oral Daily ubiquinone (Coenzyme Q10) 50 mg Oral Daily sodium chloride 0.9 % (flush) 5 mL Intravenous BID Continuous Infusions: heparin (porcine) infusion 750 Units/hr (04/22/24 0741) PRN Meds:famotidine, nitroGLYcerin, sodium chloride 0.9 % (flush), lidocaine, heparin (porcine) infusion AND heparin (porcine) Physical Exam: Vital Signs: Last value Range last 24 hrs Temperature Temp: 36.6 ??C (97.9 ??F) Temp: [36.6 ??C (97.9 ??F)-37.1 ??C (98.7 ??F)] Heart Rate Heart Rate: 52 Heart Rate: [52-62] Blood Pressure BP: 129/70 BP: (129-159)/(69-82) Respiratory Rate Resp: 16 Resp: [16-18] SpO2 SpO2: 99 % SpO2: [97 %-99 %] Physical Exam General-alert and oriented x 3, not in acute respiratory distress HEENT-atraumatic normocephalic, pupils bilaterally equal and reactive Heart-S1-S2 present, regular in rate and rhythm, no murmurs gallops or rubs Respiratory-bilateral breath sounds normal, no rhonchi or wheeze Abdomen- soft, non tender, + BS Neuro- No focal neurological deficits Extremities- B/L Pulses 2+, no edema Skin- normal Musculoskeletal-+ left upper chest tenderness, some left shoulder stiffness Lab Comments: Recent Labs 04/22/2443904/21/242149 WBC 6.95 9.32 HGB 12.2 13.6 HCT 38.1 41.3 PLATELET 192 236 Recent Labs 04/21/242149 INR 1.0 Recent Labs 04/22/2443904/21/242149 NA 142 139 K 4.2 4.1 CL 106 103 CO2 22 20* BUN 14 18 CREATININE 0.79 0.81 Recent Labs 04/21/242149 AST 21 ALT 18 ALKPHOS 76 BILITOT <0.2 BILIDIR <0.2 Recent Labs 04/22/2443904/21/242149 CALCIUM 9.8 9.4 MAGNESIUM 0.88 0.84 Recent Labs 04/22/2443904/21/242149 TROPONINTHS 11 11 Assessment:Isa Ro is a 59 y.o. female with history of coronary disease s/p PCI to LAD in 2013, STEMI s/p PCI to mLAD in 03/19/2024, HTN, Hypothyroidism, Asthma presents to [facility] with chest pain. Plan: # Musculoskeletal chest pain # Stable angina Patient apparently is having 2 different kinds of chest pain, her symptoms are concerning for stable angina. However the current chest pain she is having looks like is more musculoskeletal in nature. Consulted cardiology-will hold off on left heart catheterization for now. Ordered 2D echocardiogram to look for any new regional wall motion abnormalities Heparin discontinued. Patient's troponin of 11 in-house, noted during the last heart hospitalization prior to discharge was 2406. Reviewed EKG-noted significant T wave inversions in lead 1, avl, V2 and V3 which is new compared toEKG from 03/19/2024, but these T wave inversions could be post STEMI EKG changes. Patient was transferred from [facility] for chest pain evaluation. Noted that troponins were negative at that time and EKG revealed evidence of T wave inversions in lead I, aVL and V2-V6. # Coronary artery disease status post PCI to LAD, 2013 # Recent STEMI status post PCI to mid LAD(100% stenosis), 03/19/2024 Patient is currently hemodynamically stable, on room air. Heart rates ranging between 50s to 60s beats per minute. LDL of 99, CMP within normal limits with potassium of 4.2 and creatinine of 0.79. CBC within normallimits Continue with aspirin 81 mg daily, Plavix 75 mg daily-patient will need to be on dual antiplatelet therapy for at least 1 year. Continue with atorvastatin 80 mg daily, nitro as needed for pain. 2D echocardiogram from 03/19/2024-noted LVEF of 49%, LAD territory wall motion abnormalities predominantly in the LV apex, no LV thrombus, RV, no significant valvular abnormalities. # Hypertension- # Asymptomatic bradycardia Patient states that she was on Coreg which was eventually changed to metoprolol because her heart rates and blood pressures were too low. her heart rate is currently 50 to 60s. For cardioprotective benefit, will start the patient on metoprolol succinate 12.5 mg daily and losartan 25 mg daily for better blood pressure control and also for ASCVD. Brendon Hayes MD 04/22/2024 10:00 AM documented in this encounter H&P Notes * Shawn Mendez MD - 04/21/2024 7:49 PM EDT Images from the original note were not included. Cardiology Admission H&P Patient Name: Isa Ro Date of : 1965 Age: 59 y.o. Hospital Admit Date: 04/21/2024 Inpatient Attending: Kiran Amador MD PCP: None Presenting Diagnosis/Chief Complaint: chest pain Active Problem List: There are no hospital problems to display for this patient. History of Present Illness: Isa Ro is a 59 y.o. female with history of coronary disease s/p PCI to LAD in 2013, STEMI o s/p PCI to mLAD in 03/19/2024, HTN, Hypothyroidism, Asthma presents to [facility] with chest pain. The patient was recently discharged from [facility] when he presented with STEMI and had PCI to mLAD about a month ago. His LHC showed Elevated EDP (31) and had acute mixed hypoxemic and hypercapnic respiratory failure in the laboratory scientist, potentially also due to sedation, briefly requiring BiPAP. Patient received IV lasix 40 x1 in CVCC with adequate output and patient appearing euvolemic since. Patient also reported previous avoidance of medications and preferring to manage with lifestyle modifications only. Discussed importance of new medications, especially compliance with DAPT, given STEMI. Patientverbalized understanding and agreement with medication compliance post-discharge. On 04/20/24, the patient presented to [facility] with Chest pain for about three days. The pain was retrosternal, exertional, not responding to nitro in the ED, tender to touch. The patienthad negative troponins. Her EKG however showed TWI in lead I,II, V2-V6. Given her recent PCI, discussed with [facility] cardiology and agreed to keep the patient on ACS protocol and tranfer to [facility] for further evaluation for [facility]. On arrival at [facility], Still reports mild chest pain. Vitals: sinus bradycardia, BP 146[72, other vss Family hx of colon cancer. No reporteed significant cardiac hx Patient lives with son. Does not smoke. Drinks alcohol occassionally. Uses cannabis. 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 Went back to [place] two weeks after her recent discharge. Concerned if she went back too sally. Also, she has about 5 gigs coming up and is concerned about being in the hospital. She undestands though that if she is required to be here for treatment she will comply. Past Medical History: Past Medical History: Diagnosis Date CAD (coronary artery disease) Hypertension Surgical History/Problems: No past surgical history on file. Significant Family History: No family history on file. Social History: Social History Socioeconomic History Marital status: Single Spouse name: Not on file Number of children: Not on file Years of education: Not on file Highest education level: Not on file Occupational History Not on file Tobacco Use Smoking status: Former Smokeless tobacco: Never Substance and Sexual Activity Alcohol use: Yes Alcohol/week: 14.0 standard drinks of alcohol Types: 14 Cans of beer per week Drug use: Yes Types: Marijuana Sexual activity: Not Currently Other Topics Concern Not on file Social History Narrative Not on file Social Determinants of Health Financial Resource Strain: Not on file Food Insecurity: No Food Insecurity (03/21/2024) Hunger Vital Sign Worried About Running Out of Food in the Last Year: Never true Ran Out of Food in the Last Year: Never true Transportation Needs: No Transportation Needs (03/21/2024) PRAPARE - Transportation Lack of Transportation (Medical): No Lack of Transportation (Non-Medical): No Physical Activity: Not on file Intimate Partner Violence: Not At Risk (03/19/2024) IPV Inpatient Questions Prevent Contact with Others: no Feels Threatened by Someone: no Feels Unsafe at Home: no Physical Signs of Abuse Present: no Housing Stability: Low Risk (03/21/2024) Housing Stability Vital Sign Unable to Pay for Housing in the Last Year: No Number of Times Moved in the Last Year: 1 Homeless in the Last Year: No REVIEW OF SYSTEMS: General: Denies fever, chills, night sweats. Resp: Denies cough, wheezing, shortness of breath. Cardiac: as per HPI GI: Denies abdominal pain, nausea, vomiting, diarrhea or constipation : Denies dysuria, frequency, hesitancy or incontinence MS: Denies muscle aches, joint pain or swelling Neuro: Denies headache, neurologic deficits (focal weakness, numbness, tingling), abnormal gait Psych: Denies depression. Skin: Denies new rashes or lesions Medications: Medications Prior to Admission Medication Sig Dispense Refill Last Dose metoprolol succinate XL (Toprol-XL) 25 mg ER 24 hr tablet Take 0.5 tablets by mouth nightly. 30 tablet 0 aspirin 81 mg chewable tablet Take 81 mg by mouth daily. 30 tablet 3 atorvastatin (Lipitor) 80 mg tablet Take 1 tablet by mouth daily. 30 tablet 3 clopidogreL (Plavix) 75 mg tablet Take 1 tablet by mouth daily. 90 tablet 3 famotidine (Pepcid) 20 mg tablet Take 1 tablet by mouth 2 times daily as needed. 30 tablet 12 nitroGLYcerin (Nitrostat) 0.[address] 1 tablet under the tongue every 5 minutes as needed for Chest pain. 90 tablet 12 ubiquinone, Coenzyme Q10, (Ubiquinone) 50 mg capsule Take 1 capsule by mouth daily. 30 capsule 3 ketoconazole (NIZORAL) 2 % Shampoo Apply topically to scalp, let sit 3-5 minutes then rinse off. Alternate with home OTC anti dandruff shampoo every few washes 120 mL 3 Allergies: No Known Allergies PHYSICAL EXAM: Last set of vital signs: BP 146/72 (BP Location (NBP): Right arm, Patient Position: Sitting) Pulse 62 Temp 37.1 ??C (98.7 ??F) (Oral) Resp 18 Ht 157.5 cm (5' 2) Wt 54.5 kg (120 lb 3.2 oz) SpO2 97% BMI 21.98 kg/m?? General Appearance: No acute distress, lying in bed, HEENT: NCAT, EOMI, PERRL, anicteric, mucous membranes moist Neck: Supple, no JVD Lungs: Clear to auscultation bilaterally. No wheezes/rhonchi/rales. No accessory muscle usage. Cardiac: regular rate and rhythm. No murmurs, rubs or gallops. Abdomen: Soft, non-tender, non-distended. Normo-active bowel sounds. No organomegaly or masses noted Extremities: No clubbing, cyanosis, edema. 2+ DP pulses. Neuro: Alert and oriented. Grossly non-focal. Conversant, moving all extremities. Skin: No rashes or lesions noted. LABS: No results found for this or any previous visit (from the past 24 hour(s)). ASSESSMENT: Isa Ro is a 59 y.o. female with history of coronary disease s/p PCI to LAD in 2013, STEMI o s/p PCI to mLAD in 03/19/2024, HTN, Hypothyroidism, Asthma presents to [facility] with chest pain. #Unstable angina The patient suspected to have unstable angina. She presents with chest pain in setting of recent PCI and negative troponin. She has already been started on IV heparin. Given the patient's risk factors, ECG changes, positive biomarkers, it was decided to proceed with coronary angiography. The indications, expected benefits and potential risks of heart catheterization were reviewed in detail with the patient. The potential for , heart attack, stroke, kidney failure, hemorrhage, allergic reaction, vascular complications and infection were reviewed in detail. The possibility of stenting and other percutaneous intervention with associated risk was reviewed. The possible need for emergent coronary artery bypass surgery was reviewed. After a discussion about the above, and havinganswered all questions posed, the patient was provided with a consent which was reviewed and signed. ASA: 2: Patient with mild systemic disease Mallampati: II: tonsillar pillars are blocked by the tongue Sedation Plan: moderate (conscious sedation) - ASA 81mg PO daily (initial 324mg) - Clopidogrel 75mg PO daily (initial load at OSH) - Atorvastatin 80mg PO daily - NTG PRN chest pain or NTG drip if ongoing chest pain (Hold if hypotensive / cardiogenic shock / inferior NY / sildenafil within past 24 hours) - Anti-coagulation (Heparin drip per ACS protocol) - TTE - NPO for [facility] tomorrow. Provider: Shawn eMndez MD 04/21/2024 documented in this encounter Miscellaneous Notes * Plan of Care - Tania Jenkins RN - 04/22/2024 1:10 PM EDTSummary: Discharge Summary OUTCOME EVALUATION NOTE: OUTCOME SUMMARY: Isa Ro admitted with chest pain. This shift she met with cardiology, got a TTE, had breakfast and lunch, and awaited discharge. Pt is A&Ox4, VSS on RA, NSR on tele. Pt is not displaying any signs or symptoms of distress. Discharge instructions discussed, education provided, and all questions/concerns were addressed. PIV and tele removed. Pt was brought down to the d/c lounge via wheelchair and was brought home by family. CPG GOAL OUTCOME EVALUATION: Discharge instructions discussed, education provided, and all questions/concerns were addressed. PIV and tele removed. Pt was brought down to the d/c lounge via wheelchair and was brought home by (). Problem: Adult Inpatient Plan of Care Goal: Plan of Care Review Outcome: Outcome (s) achieved Goal: Patient-Specific Goal (Individualized) Outcome: Outcome (s) achieved Goal: Absence of Hospital-Acquired Illness or Injury Outcome: Outcome (s) achieved Goal: Optimal Comfort and Wellbeing Outcome: Outcome (s) achieved Goal: Readiness for Transition of Care Outcome: Outcome (s) achieved Problem: Chest Pain Goal: Resolution of Chest Pain Symptoms Outcome: Outcome (s) achieved * Consult Note - Moni Wellington MD - 04/22/2024 10:51 AM EDT Images from the original note were not included. [facility] [place] [id number] INPATIENT CARDIOLOGY CONSULT NOTE Hospital Day 1 day Reason for Consult: chest pain Active Problems: Active Hospital Problems Diagnosis Chest pain Resolved Hospital Problems No resolved problems to display. HPI: Isa Ro is a 59 y.o. female with a cardiac history significant for ASCVD who presents with chest pain. Patient had an NY in 2013 and was found to have disease in her LAD s/p JAHAIRA. On 03/19/24 she once again had severe 10/10 chest pain with exertion that persisted. Presented to was found to have a troponin of 2400 and LHC showed in-stent thrombosis/re-stenosis so the same lesion had another PCI. All other vessels were disease free. Patient presents now with two types of chest discomfort. (1) musculoskeletal bilateral rib and shoulder pain worse with twisting after a light fell on her during a band performance. 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 Patient has been pushing herself more and trying to exercise more. Past Medical History: Diagnosis Date CAD (coronary artery disease) Hypertension Out-Patient Medications: Medications Prior to Admission Medication Sig Dispense Refill Last Dose metoprolol succinate XL (Toprol-XL) 25 mg ER 24 hr tablet Take 0.5 tablets by mouth nightly. 30 tablet 0 aspirin 81 mg chewable tablet Take 81 mg by mouth daily. 30 tablet 3 atorvastatin (Lipitor) 80 mg tablet Take 1 tablet by mouth daily. 30 tablet 3 clopidogreL (Plavix) 75 mg tablet Take 1 tablet by mouth daily. 90 tablet 3 famotidine (Pepcid) 20 mg tablet Take 1 tablet by mouth 2 times daily as needed. 30 tablet 12 nitroGLYcerin (Nitrostat) 0.[address] 1 tablet under the tongue every 5 minutes as needed for Chest pain. 90 tablet 12 ubiquinone, Coenzyme Q10, (Ubiquinone) 50 mg capsule Take 1 capsule by mouth daily. 30 capsule 3 ketoconazole (NIZORAL) 2 % Shampoo Apply topically to scalp, let sit 3-5 minutes then rinse off. Alternate with home OTC anti dandruff shampoo every few washes 120 mL 3 In-Patient Medications: losartan 25 mg Oral Daily metoprolol succinate XL 25 mg Oral Daily aspirin 81 mg Oral Daily atorvastatin 80 mg Oral QPM clopidogreL 75 mg Oral Daily ubiquinone (Coenzyme Q10) 50 mg Oral Daily sodium chloride 0.9 % (flush) 5 mL Intravenous BID Physical Exam: Last value Range last 8 hrs Temperature Temp: 36.6 ??C (97.9 ??F) Temp: [36.6 ??C (97.9 ??F)] Heart Rate Heart Rate: 64 Heart Rate: [52-64] Blood Pressure BP: 140/72 BP: (129-140)/(69-72) Respiratory Rate Resp: 16 Resp: [16-18] SpO2 SpO2: 99 % SpO2: [99 %] Intake/Output Summary (Last 24 hours) at 04/22/2024 1051 Last data filed at 04/22/2024 0935 Gross per 24 hour Intake 645 ml Output 1450 ml Net -805 ml Wt & BMI By Encounter Date Flowsheet Row Admission (Current) from 04/21/2024 in Heart and Vascular Unit Level [address] [facility] Admission (Discharged) from 03/19/2024 in Heart and Vascular Unit Level [address] [facility] Weight 54.2 kg (119 lb 6.4 oz) 1 04/22/2024 0351 55 kg (121 lb 4.8 oz) 1 03/22/2024 0406 BMI 21.98 1 04/21/2024 1924 22.18 1 03/22/2024 0406 General - No acute distress. Well-groomed/nourished. Speech is normal HEENT - EOMI. No scleral icterus. Noninjected. Moist membranes. No cervical LAD Respiratory: Clear to auscultation bilaterally. Good effort/excursion. Cardiac - RRR, normal S1/S2, no audible murmur, gallop or rubs. No JVD. No BRIDGETT. Abdomen - Soft, nontender/nondistended, normal active bowel sounds. Extremities - Warm. No clubbing or cyanosis. Radial Pulses: 2+ B/L; DP Pulses: 2+ B/L Neuro - Limited exam. No deficits. ECG: TWI in V2-V3. Echocardiogram: TODAY: Interpretation Summary 1. The left ventricular ejection fraction is 57% by Davis's biplane. There are segmental wall motion abnormalities involving the left ventricular apex. No left ventricular thrombus was visualized with echo contrast. 2. The right ventricle is of normal size. Right ventricular systolic function is normal. 3. The left atrium is mildly dilated. The right atrium is normal. 4. There is no hemodynamically significant valvular disease. 5. Compared to prior study from 03/19/2024, left ventricular function has slightly improved. 03/19/24 Normal left ventricle size with mildly reduced LV function. LV ejection fraction 49%. LAD territory wall motion abnormality, predominantly involving the LV apex. No LV thrombus visualized with echo contrast. Normal right ventricle. No significant valvular abnormalities. Compared with prior echo dated 08/28/23, LV function has now decreased and new wall motion abnormalities. Recent Labs 04/22/2443904/21/242149 WBC 6.95 9.32 HGB 12.2 13.6 HCT 38.1 41.3 PLATELET 192 236 Recent Labs 04/22/2443904/21/242149 NA 142 139 K 4.2 4.1 CL 106 103 CO2 22 20* BUN 14 18 CREATININE 0.79 0.81 Recent Labs 04/21/242149 AST 21 ALT 18 ALKPHOS 76 BILITOT <0.2 BILIDIR <0.2 Recent Labs 04/22/240 04/21/242149 CALCIUM 9.8 9.4 MAGNESIUM 0.88 0.84 Recent Labs 04/21/242149 INR 1.0 PT 11.5 PTT 38* No results for input(s): CK, TROPONINT in the last 168 hours. NT-proBNP Date Value Ref Range Status 03/19/2024 529 (H) <=124 pg/mL Final Assessment/Recommendations: is patient with LAD PCI (2013) with recent re-thrombosis who presents with mild stable angina. I am not concerned that her TWI are suggestive of worsened ischemic disease. Patient is recovering from recent [place] due to PCI thrombosis and had evidence of wall motion abnormalities in the setting ofthis. Would recommend she continue with cardiac rehab, adhere to her beta remigio and ARB to help with remodeling and better control HTN. No indication to pursue further ischemic workup. Case discussed with Dr. Nikkie Wellington MD Automotive Sales Manager Associated attestation - Twila Lundy MD - 04/23/2024 1:42 PM EDT I saw and evaluated the patient with Moni Wellington MD and agree with the assessment and plan documented below. Twila Lundy MD Advanced Heart Failure and Cardiac Transplant * Initial Assessments - Bettye Schmidt RN - 04/22/2024 10:09 AM EDT Office of Care Management Initial Assessment Medical record reviewed. Plan of care and patient status discussed with Care Team in multidisciplinary rounds. Reason for Hospitalization: Chest pain Present on Admission: Chest pain Hospitalizations Within the Past 30 Days: previous discharge plan unsuccessful Patient receiving hospital care under Inpatient status. Admission order reviewed. Health/Prescription Coverage: Primary Insurance: [place] Payor: [place] / Plan: [place] PRIMARY CARE PLUS / Product Type: *No Product type* / Secondary Insurance: N/A ; Prescription Coverage: Yes Preferred Pharmacy: [address] [place] [address] [address] [facility] [address] [facility] [address] - [place], [place] - [address] [facility] [address] [facility] [address] Advance Care Planning: Attempt Cardiopulmonary Resuscitation - Inpatient Received -Advanced Directive: Yes, on file Who is your DPOA-HC?: Sibling Current Functional Ability: Independent Functional Status Prior to Admission: Independent Home Environment: Others in the home: child(lucain), minor (15 year old son). Current Living Arrangements: home/apartment/condo. Accessibility Concerns:home with 3 floors, 2 [address]. Current DME: none [address] [facility] [id number] Social & Family Supports: All names listed below confirmed with patient as current and correct Extended Emergency Contact Information Primary Emergency Contact: Tiffany Ro [facility] Mobile Relation: Mother Current Care Provided by: self Transportation: no concerns Transportation Anticipated: family or friend will provide (Tiffany) Assessment: Patient with no apparent RNCM/SW needs at this time. No housing, transportation, insurance, resources concerns identified at this time. Supports in place to achieve a safe post-hospital transition. No identified barriers to accessing necessary care and/or follow-up after discharge. Plan: Patient to d/c to home via private vehicle when medically ready. Registered Nurse Casino Runner / Commercial Loan Reviewer will continue to follow patient???s progress and remain available if situation changes for coordination of care, psychosocial support and/or discharge planning. Office of Care Management * Plan of Care - Danie Wilson RN - 04/22/2024 6:22 AM EDT SHIFT EVALUATION NOTE: SHIFT SUMMARY: AOx4. VSS on RA, assessment as charted. Pt denies CP or SOB. NSR on tele, see scanned documents. See flowsheets for I&O. Call tipton within reach. Heparin gtt started. Uneventful evening for pt, ptslept between care. PLAN MOVING FORWARD: Continue to monitor per protocol Discharge planning as appropriate INDIVIDUALIZED FALL PREVENTION INTERVENTIONS: Patient-specific fall risk factors per assessment: [current deficits]: Tele wires, SPO2 monitor wire, unfamiliar environment Assistance [level of assistance required for transfers and ambulation]: IND Supervision [direct monitoring required during toileting and ADLs]: No Surveillance [continuous indirect monitoring]: Telemetry, intermittent pulse ox CPG GOAL OUTCOME EVALUATION: Monitoring of progress towards goals remains ongoing for remainder of shift. Problem: Adult Inpatient Plan of Care Goal: Plan of Care Review Outcome: Ongoing (Interventions Implemented as Appropriate) Goal: Patient-Specific Goal (Individualized) Outcome: Ongoing (Interventions Implemented as Appropriate) Goal: Absence of Hospital-Acquired Illness or Injury Outcome: Ongoing (Interventions Implemented as Appropriate) Goal: Optimal Comfort and Wellbeing Outcome: Ongoing (Interventions Implemented as Appropriate) Goal: Readiness for Transition of Care Outcome: Ongoing (Interventions Implemented as Appropriate) Problem: Chest Pain Goal: Resolution of Chest Pain Symptoms Outcome: Ongoing (Interventions Implemented as Appropriate) documented in this encounter Plan of Treatment Upcoming Encounters Date Type Department Care Team (Late st Contact Info) Description 06/03/2024 4:00 PM EDT Office Visit Cardiology at [address] [phone] Kaylee Sutherland MD [facility] [place] [address] documented as of this encounter Procedures Procedure Name Priority Date/Time Associated Diagnosis Comments ECHO LMTD W CONTRAST W LMTD SPEC DOPP COLOR DOPP Routine 04/22/2024 1:08 PM EDT Chest pain, unspecified type TROPONIN-T, HIGH SENSITIVITY 1 HOUR PERFORMABLE STAT 04/22/2024 4:40 AM EDT HEPARIN (UNFRACTIONATED) LEVEL Timed 04/22/2024 4:40 AM EDT CBC (WITH DIFF) Routine 04/22/2024 4:40 AM EDT TRIGLYCERIDE Routine 04/22/2024 4:40 AM EDT MAGNESIUM Routine 04/22/2024 4:40 AM EDT LDL CHOLESTEROL, DIRECT Routine 04/22/2024 4:40 AM EDT HDL/CHOL PROFILE Routine 04/22/2024 4:40 AM EDT GLUCOSE Routine 04/22/2024 4:40 AM EDT BASIC METABOLIC PANEL Routine 04/22/2024 4:40 AM EDT TROPONIN-T, HIGH SENSITIVITY INITIAL PERFORMABLE STAT 04/21/2024 9:50 PM EDT TROPONIN - SERIES STAT 04/21/2024 9:5 0 PM EDT HC PARTIAL THROMBOPLASTIN TIME Routine 04/21/2024 9:50 PM EDT PROTHROMBIN TIME Routine 04/21/2024 9:50 PM EDT CBC (WITH DIFF) Routine 04/21/2024 9:50 PM EDT TSH Routine 04/21/2024 9:50 PM EDT MAGNESIUM Routine 04/21/2024 9:50 PM EDT HEPATIC FUNCTION PANEL Routine 9:50 PM EDT BASIC METABOLIC PANEL Routine 04/21/2024 9:50 PM EDT EKG 12-LEAD Routine 04/21/2024 8:05 PM EDT Chest pain, unspecified type documented in this encounter Results * ECHO LMTD W CONTRAST W LMTD SPEC DOPP COLOR DOPP (04/22/2024 1:08 PM EDT) Anatomical Region Laterality Modality Cardiac Other 04/22/2024 10:5 9 AM EDT Narrative 04/22/2024 2:27 PM EDT [address] [place] [address] ? Echocardiogram Report Name: ISA RO ?Study Date: 04/22/2024 10:59 AM ? Patient Location: 4A : 1965 ? Height: 157 cm ? Account: [id number] Age: 59 yrs ? Weight: 54 kg Gender: Female ?BSA: 1.5 m2 Ordering Physician: BOBBY Referring Physician: BRENDON HAYES Performed By: PEREZ Oliveira Reason For Study: chest pain Interpreting Fellow: Jie Aponte. Exam Location: [facility]. Interpretation Summary 1. The left ventricular ejection fraction is 57% by Davis's biplane. There are segmental wall motion abnormalities involving the left ventricular apex. No left ventricular thrombus was visualized with echo contrast. 2. The right ventricle is of normal size. Right ventricular systolic function is normal. 3. The left atrium is mildly dilated. The right atrium is normal. 4. There is no hemodynamically significant valvular disease. 5. Compared to prior study from 03/19/2024, left ventricular function has slightly improved. Procedure Limited - 63366. Image enhancement Optison was used for left ventricular opacification. Suboptimal quality. There is sinus bradycardia. Left Ventricle Left ventricle is of normal size. Wall thickness is normal. Global left ventricular systolic function is normal. The left ventricular ejection fraction is 57% by Davis's biplane. There are segmental wall motion abnormalities. Right Ventricle The right ventricle is of normal size. Right ventricular systolic function is normal. Left Atrium The left atrium is mildly dilated. Right Atrium The right atrium is normal. Aortic Valve The aortic valve is tricuspid. There is no aortic stenosis. There is no aortic regurgitation. Mitral Valve The mitral valve is structurally normal. There is no mitral stenosis. There is trace mitral regurgitation. Tricuspid Valve The tricuspid valve is structurally normal. There is no tricuspid stenosis. There is trace tricuspid regurgitation. Venous Inferior vena cava is normal in size. Inferior vena cava collapse greater than 50% with respiration. Pericardium/Pleural There is no pericardial effusion. Hemodynamics Left ventricular diastolic function is abnormal. Left ventricular filling pressure is indeterminate. Ejection Fraction ?2D Measurements ? Volumes EF(MOD-bp): 56.7 % ?IVSd: 1.2 cm ? LAV(MOD- bp) Indexed: ?LVIDd: 3.9 cm ?35.4 ml/m2 ?LVIDs: 2.6 cm ?EDV(MOD-bp) Indexed: ?LVPWd: 1.0 cm ?RWT: 0.53 {ratio} ?45.7 ml/m2 ?LV mass(C)d: 146.1 grams ? ESV(MOD- bp) Indexed: ? 19.8 ml/m2 ?LV mass(C)dI: 95.3 grams/m2 Doppler MV E max walt: 88.3 cm/sec MV A max walt: 86.8 cm/sec MV E/A: 1.0 Lat Peak E' Walt: 8.8 cm/sec E/e' (lat): 10.1 Med Peak E' Walt: 5.8 cm/sec E/e' (med): 15.2 E/e' Average: 12.6 TR max walt: 200.2 cm/sec I ?WMSI = 1.50 ? % Normal = 75 ?Segments ??Size X - Cannot ?? 1 - Normal ?? 2 - ? 3 - Akinetic 4 - ?1-2 ? small Interpret ? Hypokinetic ?Dyskinetic ?? 3-5 ? moderate 5 - ? 6-14 ?large Aneurysmal ?15-16 ?? diffuse Procedure Note Destin Ambrosio MD - 04/22/2024 [address] [place] [address] Echocardiogram Report Name: ISA RO Study Date: 0:59 AM Patient Location: : 1965 Height: 157 cm Account: [id number] Age: 59 yrs Weight: 54 kg Gender: Female BSA: 1.5 m2 Ordering Physician: BOBBY Referring Physician: BRENDON HAYES Performed By: PEREZ Oliveira Reason For Study: chest pain Interpreting Fellow: Jie Aponte. Exam Location: [facility]. Interpretation Summary 1. The left ventricular ejection fraction is 57% by Davis's biplane.There are segmental wall motion abnormalities involving the left ventricular apex.No left ventricular thrombus was visualized with echo contrast. 2. The right ventricle is of normal size. Right ventricular systolicfunction is normal. 3. The left atrium is mildly dilated. The right atrium is normal. 4. There is no hemodynamically significant valvular disease. 5. Compared to prior study from 03/19/2024, left ventricular function hasslightly improved. Procedure Limited - 16715. Image enhancement Optison was used for left ventricular opacification. Suboptimal quality. There is sinus bradycardia. Left Ventricle Left ventricle is of normal size. Wall thickness is normal. Global left ventricular systolic function is normal. The left ventricular ejectionfraction is 57% by Davis's biplane. There are segmental wall motion abnormalities. Right Ventricle The right ventricle is of normal size. Right ventricular systolic functionis normal. Left Atrium The left atrium is mildly dilated. Right Atrium The right atrium is normal. Aortic Valve The aortic valve is tricuspid. There is no aortic stenosis. There is noaortic regurgitation. Mitral Valve The mitral valve is structurally normal. There is no mitral stenosis.There is trace mitral regurgitation. Tricuspid Valve The tricuspid valve is structurally normal. There is no tricuspidstenosis. There is trace tricuspid regurgitation. Venous Inferior vena cava is normal in size. Inferior vena cava collapse greaterthan 50% with respiration. Pericardium/Pleural There is no pericardial effusion. Hemodynamics Left ventricular diastolic function is abnormal. Left ventricular fillingpressure is indeterminate. Ejection Fraction 2D Measurements Volumes EF(MOD-bp): 56.7 % IVSd: 1.2 cm LAV(MOD-bp)Indexed: LVIDd: 3.9 cm 35.4 ml/m2 LVIDs: 2.6 cm EDV(MOD-bp)Indexed: LVPWd: 1.0 cm RWT: 0.53 {ratio} 45.7 ml/m2 LV mass(C)d: 146.1 grams ESV(MOD-bp)Indexed: 19.8 ml/m2 LV mass(C)dI: 95.3 grams/m2 Doppler MV E max walt: 88.3 cm/sec MV A max walt: 86.8 cm/sec MV E/A: 1.0 Lat Peak E' Walt: 8.8 cm/sec E/e' (lat): 10.1 Med Peak E' Walt: 5.8 cm/sec E/e' (med): 15.2 E/e' Average: 12.6 TR max walt: 200.2 cm/sec I WMSI = 1.50 % Normal = 75 SegmentsSize X - Cannot 1 - Normal 2 - 3 - Akinetic 4 - 1-2small Interpret Hypokinetic Dyskinetic 3-5moderate 5 - 6-14large Aneurysmal 15-16diffuse Brendon Hayes MD ECHO ORDERABLES * Heparin (unfractionated) Level (04/22/2024 4:40 AM EDT) UF Heparin 0.23 IU/mL 04/22/2024 5:25 AM EDT [facility] Comment: Heparin (anti-Xa) levels should be determined in a plasma sample that has been drawn 6 hours after a dose change to approximate steady-state for continuous heparin infusions. Indication specific Heparin (anti-Xa) levels based on order set selection: Acute DVT or PE prevention: ? 0.3-0.7 IU/mL Thrombosis Prevention (e.g. atrial fibrillation, kan-procedural bridging, mechanical valves): ? 0.3-0.7 IU/mL Acute Coronary Syndrome: ? 0.3-0.7 IU/mL Stroke Indications: ? 0.3-0.5 IU/mL Ultra-low intensity (select indications in cardiac surgery): ? 0.1-0.3 IU/mL Blood VENOUS BLOOD SPECIMEN / Unknown IP Care Team Draw / Unknown 04/22/2024 4:40 AM EDT 04/22/2024 5:05 AM EDT Shawn Mendez MD HEMATOLOGY ORDERABLE S [facility] [place] [address] * Magnesium (04/22/2024 4:40 AM EDT) Magnesium 0.88 0.69 - 1.07 mMol/L 04/22/2024 5:35 AM EDT [facility] Blood VENOUS BLOOD SPECIMEN / Unknown IP Care Team Draw / Unknown 04/22/2024 4:40 AM EDT 04/22/2024 5:04 AM EDT Shawn Mendez MD CHEMISTRY ORDERABLES [facility] [place] [address] * Basic Metabolic Panel (04/22/2024 4:40 AM EDT) Glucose 89 65 - 199 mg/dL 04/22/2024 5:35 AM EDT [facility] Comment:Glucose Concentratio n >=200 mg/dL plus symptoms is consistent with Diabetes Mellitus. Blood Urea Nitrogen 14 8 - 18 mg/dL 04/22/2024 5:35 AM EDT [facility] Creatinine 0.79 0.70 - 1.20 mg/dL 04/22/2024 5:35 AM EDT [facility] Sodium 142 135 - 145 mMol/L 04/22/2024 5:35 AM EDT [facility] Potassium 4.2 3.5 - 5.0 mMol/L 04/22/2024 5:35 AM EDT [facility] Chloride 106 98 - 107 mMol/L [facility]/22[facility]2024 5[facility] Carbon Dioxide 22 22 - 31 mMol/L 04/22/2024 5:35 AM EDT [facility] Anion Gap 14 5 - 15 mMol/L 04/22[facility]2024 [facility] Calcium 9.8 8.5 - 10.5 mg/dL 04/22/2024 5:[facility] Est Glomerular Filtration Rate - Female 86 mL/min/1. 73 m?? 04/22/2024 5:35 AM EDT [facility] Comment: This patient's estimated GFR [...] urine creatinine clearance. Assignment of CKD stage 1 - 5 for patients with an eGFR near the transition point between stages may be based on clinical assessment of muscle mass and symptoms in addition to eGFR. Link: eGFR Calculator [employer] Fasting Status 04/22/2024 5:35 AM EDT [facility] Blood VENOUS BLOOD SPECIMEN / Unknown IP Care Team Draw / Unknown 04/22/2024 4:40 AM EDT 04/22/2024 5:04 AM EDT Shawn Mendez MD CHEMISTRY ORDERABLES Performing Organization Address City/State/[facility] Co de Phone Number [facility] [place] [address] * CBC (with Diff) (04/22/2024 4:40 AM EDT) White Blood Cell 6.95 4.00 - 9.50 x10(3)/mcL 04/22/2024 5:24 AM EDT [facility] Red Blood Cell 4.45 4.00 - 5.21 x10(6)/mcL 04/22/2024 5:24 AM EDT [facility] Hemoglobin 12.2 11.7 - 15.5 g/dL 04/22/2024 5:24 AM EDT [facility] Hematocrit 38.1 35.7 - 45.8 % 04/22/2024 5:[facility] Mean Cell Volume 85.6 82.6 - 94.4 fL 04/22/2024 5:24 AM EDT [facility] Mean Cell Hemoglobin 27.4 27.1 - 32.0 pg 04/22/2024 5:24 AM [facility] Mean Cell Hemoglobin Concentration 32.0 31.7 - 35.0 g/dL 04/22/2024 5:24 AM [facility] Platelet 192 145 - 357 x10(3)/mcL 04/22/2024 5:24 AM [facility] Mean Platelet Volume 9.7 7.6 - 12.9 fL 04/22/2024 5:24 AM [facility] RDW Standard Deviation 40.3 37.0 - 46.0 fL 04/22/2024 5:24 AM [facility] RDW coefficient of variation 13.0 11.5 - 14.1 % 04/22/2024 5:24 AM [facility] NRBC% auto 0.0 % 04/22/2024 5:24 AM [facility] NRBC Absolute 0.00 0.00 - 0.00 x10(3)/mcL 04/22/2024 5:24 AM [facility] Neutrophil % 65.5 % 04/22/2024 5:24 AM [facility] Neutrophil Absolute (ANC) - Automated 4.55 1.70 - 6.10 x10(3)/mcL 04/22/2024 5:24 AM [facility] Lymph % 23.0 % 04/22/2024 5:24 AM [facility] Lymph Absolute 1.60 0.90 - 3.20 x10(3)/mcL 04/22/2024 5:24 AM [facility] Monocyte % 7.5 % 04/22/2024 5:24 AM [facility] Monocyte Absolute 0.52 0.30 - 0.90 x10(3)/mcL 04/22/2024 5:24 AM [facility] Eos % 3.2 % 04/22/2024 5:24 AM [facility] Eos Absolute 0.22 0.00 - 0.40 x10(3)/mcL 04/22/2024 5:24 AM EDT [facility] Basophil % 0.4 % 04/22/2024 5:24 AM EDT [facility] Baso Absolute 0.03 0.00 - 0.10 x10(3)/mcL 04/22/2024 5:24 AM EDT [facility] Immature Gran % 0.4 % 5:24 AM EDT [facility] Immature Gran Absolute 0.03 0.00 - 0.04 x10(3)/mcL 04/22/2024 5:24 AM EDT [facility] Blood VENOUS BLOOD SPECIMEN / Unknown IP Care Team Draw / Unknown 04/22/2024 4:40 AM EDT 04/22/2024 5:04 AM EDT Shawn Mendez MD HEMATOLOGY ORDERABLE S [facility] [place] [address] * Glucose (04/22/2024 4:40 AM EDT) Glucose 89 65 - 199 mg/dL 04/22/2024 5:35 AM EDT [facility] Comment:Glucose Concentratio n >=200 mg/dL plus symptoms is consistent with Diabetes Mellitus. Fasting Status 04/22/2024 5:35 AM EDT [facility] Blood VENOUS BLOOD SPECIMEN / Unknown IP Care Team Draw / Unknown 04/22/2024 4:40 AM EDT 04/22/2024 5:04 AM EDT Shawn Mendez MD CHEMISTRY ORDERABLES [facility] [place] [address] * Triglyceride (04/22/2024 4:40 AM EDT) Triglyceride 126 mg/dL 04/22/2024 5:35 AM EDT [facility] Comment: Normal: <150 mg/dL Borderline High: 150-199 mg/dL High: 200-499 mg/dL Very High: > or =500 mg/dL Blood VENOUS BLOOD SPECIMEN / Unknown IP Care Team Draw / Unknown 04/22/2024 4:40 AM EDT 04/22/2024 5:04 AM EDT Shawn Mendez MD CHEMISTRY ORDERABLES [facility] [place] [address] * HDL/Cholesterol Profile (04/22/2024 4:40 AM EDT) [facility] Cholesterol, Total 170 mg/dL 04/22/2024 5:35 AM EDT [facility] Comment: Desirable: < 200 mg/dL Borderline High: 200 - 239 mg/dL High: > or = 240 mg/dL HDL Cholesterol 55 mg/dL 5:35 AM EDT [facility] Comment:Female: High Risk: < 50 mg/dL Non-HDL Cholesterol 115 mg/dL 04/22/2024 5:35 AM EDT [facility] Comment: Desirable: <130 mg/dL Above Desirable: 130-159 mg/dL Borderline High: 160-189 mg/dL High: 190-219 mg/dL Very High: > or = 220 mg/dL Blood VENOUS BLOOD SPECIMEN / Unknown IP Care Team Draw / Unknown 04/22/2024 4:40 AM EDT 04/22/2024 5:04 AM EDT Narrative [facility] - 04/22/2024 5:35 AM EDT It is important to review the results of your lipid panel with your health care provider. You can compare your lipid results to the ranges below and whether they are in the desirable range. These ranges are only meant to be used for people without known cardiac disease, history of stroke, or peripheral vascular disease (blockages in the leg arteries or diabetes). If you have one of these conditions, your desirable LDL-C (bad cholesterol) will likely be even lower. ?? ACC/AHA Guidelines (most recently Jw et al. [facility] 06/17/22): * For individuals with atherosclerotic cardiovascular disease (ASCVD) or LDL >=190 mg/dL, use a high-intensity statin(40-80 mg atorvastatin or 20-40 mg rosuvastatin with goal >=50% LDL reduction) * For individuals with diabetes, age 40-75 without ASCVD, moderate-intensity statin (goal 30-49% LDL reduction); consider high intensity statin for those with increased risk. * For adults without diabetes or ASCVD, aged 40-75 with LDL 70-189 mg/dL, estimate 10 year ASCVD risk with smartphrase ??.ASCVDRISK ??or Dynamed Decisions. If 10 year risk is 7.5%-19.9% (intermediate risk), consider moderate intensity statin based on risk enhancers and patient preference. Consider coronary artery calcium test (CT)if there is concern regarding the benefit of a statin. If ten year risk is >=20%, initiate high-intensity statin. * Evaluate for secondary causes of Triglycerides >500 mg/dL or LDL >190 mg/dL. * Lifestyle modification is a critical component of ASCVD risk reduction. * If not reaching LDL goals on maximally tolerated statin, consider ezetimibe and/or a PCSK9 inhibitor: ?* Target for primary prevention: LDL<100 ?* Target for those with ASCVD or diabetes and 10-year risk >=20%: LDL<70 ?* Target for those with very high risk ASCVD: LDL<55 (Very high risk being the presence of 2 or more of: recent acute coronary syndrome, past ? myocardial infarction, ischemic stroke, symptomatic peripheral artery disease) Shawn Mendez MD CHEMISTRY ORDERABLES [facility] [place] [address] * LDL Cholesterol, Direct (04/22/2024 4:40 AM EDT) [facility] LDL Cholesterol, Direct 99 mg/dL 04/22/2024 5:35 AM EDT [facility] Comment: Desirable: <100 mg/dL Above Desirable: 100-129 mg/dL Borderline High: 130-159 mg/dL High: 160-189 mg/dL Very High: > or =190 mg/dL If not reaching LDL goals on maximally tolerated statin, consider ezetimibe and/or a PCSK9 inhibitor: ? * Target for primary prevention: LDL<100 ? * Target for those with ASCVD or diabetes and 10-year risk?20%: LDL<70 ? * Target for those with very high risk ASCVD: LDL<55 (Very high risk being the presence of 2 or more of: recent acute coronary syndrome, past ?myocardial infarction, ischemic stroke, symptomatic peripheral artery disease). Blood VENOUS BLOOD SPECIMEN / Unknown IP Care Team Draw / Unknown 04/22/2024 4:40 AM EDT 04/22/2024 5:04 AM EDT Shawn Mendez MD CHEMISTRY ORDERABLES [facility] [place] [address] * Troponin-T, High Sensitivity 1 Hour (04/22/2024 4:40 AM EDT) Pathologist [facility] Troponin-T, High Sensitivity 11 <=14 ng/L 04/22/2024 5:35 AM EDT [facility] Comment: This patient's troponin T concentration was determined using the Lynda 5th Generation troponin T assay. According to the fourth universal definition of [...] viable myocardium or new regional wall motion ?? abnormality in a pattern consistent with an ischemic etiology; - Identification of a coronary thrombus by angiography or autopsy (not for type 2 or 3 ?? MIs) Serial measurement of troponin and the change in troponin concentration over time (delta) is crucial for the diagnosis of acute myocardial infarction. Guidance on the interpretation of the new 5th Generation Troponin T values and the delta troponin value can be found in the [facility] Test Catalog Troponin - [email or web address]://[email or web address].org/catalogs/565/files/52525 Reference: Fourth [place] Definition of Myocardial Infarction. Journal of the [place] [employer] 2018;72:0335-0513 Troponin-T, HS 1 hr delta 04/22/2024 5:35 AM EDT [facility] Comment:Delta troponin value not calculated, sample collected outside of delta calculation time limit. Blood VENOUS BLOOD SPECIMEN / Unknown IP Care Team Draw / Unknown 04/22/2024 4:40 AM EDT 04/22/2024 5:04 AM EDT Shawn Mendez MD CHEMISTRY ORDERABLES [facility] [place] [address] * Troponin-T, High Sensitivity (04/21/2024 9:50 PM EDT) Troponin-T, High Sensitivity Initial 11 <=14 ng/L 04/21/2024 11:32 PM EDT [facility] Comment: This patient's troponin T [...] viable myocardium or new regional wall motion ?? abnormality in a pattern consistent with an ischemic etiology; - Identification of a coronary thrombus by angiography or autopsy (not for type 2 or 3 ?? MIs) Serial measurement of troponin and the change in troponin concentration over time (delta) is crucial for the diagnosis of acute myocardial infarction. Guidance on the interpretation of the new 5th Generation Troponin T values and the delta troponin value can be found in the [facility] Test Catalog Troponin - [email or web address]/catalogs/565/files/69526 Reference: Fourth [place] Definition of Myocardial Infarction. Journal of the [place] [employer] 2018;72:1553-1789 Blood VENOUS BLOOD SPECIMEN / Unknown IP Care Team Draw / Unknown 04/21/2024 9:50 PM EDT 04/21/2024 10:06 PM EDT Shawn Mendez MD CHEMISTRY ORDERABLES Performing Organization Address [facility] Co de Phone Number [facility] [place] [address] * (ABNORMAL) TSH (04/21/2024 9:50 PM EDT) Thyroid Stimulating Hormone 6.58(H) 0.27 - 4.20 mcIU/mL 04/21/2024 11:27 PM EDT [facility] Comment: Reference Interval (mcIU/mL): ?? Females: ? First Trimester: 0.23-3.88 ? Second Trimester: 0.22-3.90 ? Third Trimester: 0.44-4.66 Blood VENOUS BLOOD SPECIMEN / Unknown IP Care Team Draw / Unknown 04/21/2024 9:50 PM EDT 04/21/2024 10:06 PM EDT Shawn Mendez MD CHEMISTRY ORDERABLES Performing Organization Address [facility]/ZIP Co de Phone Number [facility] [place] [address] * Hepatic Function Panel (04/21/2024 9:50 PM EDT) Albumin 4.3 3.2 - 5.2 g/dL 04/21/2024 11:27 PM EDT [facility] Aspartate Aminotransferase 21 <=30 unit/L 04/21/2024 11:27 PM EDT [facility] Alanine Aminotransferase 18 0 - 30 unit/L 04/21/2024 11:27 PM EDT [facility] Alkaline Phosphatase 76 35 - 105 unit/L 04/21/2024 11:27 PM EDT [facility] Bilirubin, Total <0.2 <=1.3 mg/dL 04/21/2024 11:27 PM EDT [facility] Bilirubin, Direct <0.2 0.0 - 0.3 mg/dL 04/21/2024 11:27 PM EDT [facility] Protein, Total 7.1 6.1 - 8.0 g/dL 04/21/2024 11:27 PM EDT [facility] Blood VENOUS BLOOD SPECIMEN / Unknown IP Care Team Draw / Unknown 04/21/2024 9:50 PM EDT 04/21/2024 10:06 PM EDT Shawn Mendez MD CHEMISTRY ORDERABLES Performing Organization Address [facility]/ZIP Co de Phone Number [facility] [place] [address] * (ABNORMAL) APTT (04/21/2024 9:50 PM EDT) Partial Thromboplastin Time 38(H) 25 - 37 sec 04/21/2024 10:29 PM EDT [facility] Comment: The PTT is NOT appropriate for heparin monitoring. Use the Anti-Xa level for heparin monitoring (HEP UFH) or LMWH monitoring (HEP LMW). A PTT less than 37 seconds generally indicates adequate hemostasis. Blood VENOUS BLOOD SPECIMEN / Unknown IP Care Team Draw / Unknown 04/21/2024 9:50 PM EDT 04/21/2024 10:06 PM EDT Shawn Mendez MD HEMATOLOGY ORDERABLE S Performing Organization Address City/[facility]/ZIP Co de Phone Number [facility] [place] [address] * Prothrombin Time (04/21/2024 9:50 PM EDT) Pathologist [facility] Prothrombin Time 11.5 9.4 - 12.5 sec 04/21/2024 10:29 PM EDT [facility] International Normalization Ratio 1.0 <=4.9 04/21/2024 10:29 PM EDT [facility] Comment: An INR < 2.0 indicates adequate procoagulant activity for hemostasis in most patients without underlying bleeding disorders, though the INR may not adequately reflect hemostatic capacity in patients with liver disease and synthetic impairment. The recommended target INR range for therapeutic anticoagulation is 2.0 - 3.0 for most applications, though lower and higher ranges may be appropriate depending on clinical circumstances. Blood VENOUS BLOOD SPECIMEN / Unknown IP Care Team Draw / Unknown 04/21/2024 9:50 PM EDT 04/21/2024 10:06 PM EDT Shawn Mendez MD HEMATOLOGY ORDERABLE S [facility] [place] [address] * Magnesium (04/21/2024 9:50 PM EDT) [facility] Magnesium 0.84 0.69 - 1.07 mMol/L 04/21/2024 11:27 PM EDT [facility] Blood VENOUS BLOOD SPECIMEN / Unknown IP Care Team Draw / Unknown 04/21/2024 9:50 PM EDT 04/21/2024 10:06 PM EDT Shawn Mendez MD CHEMISTRY ORDERABLES [facility] [place] [address] * (ABNORMAL) Basic Metabolic Panel (04/21/2024 9:50 PM EDT) Pathologist [facility] Glucose 83 65 - 199 mg/dL 04/21/2024 11:27 PM EDT [facility] Comment:Glucose Concentratio n >=200 mg/dL plus symptoms is consistent with Diabetes Mellitus. Blood Urea Nitrogen 18 8 - 18 mg/dL 04/21/2024 11:27 PM [facility] Creatinine 0.81 0.70 - 1.20 mg/dL 04/21/2024 11:27 PM [facility] Sodium 139 135 - 145 mMol/L 04/21/2024 11:27 PM [facility] Potassium 4.1 3.5 - 5.0 mMol/L 04/21/2024 11:27 PM [facility] Chloride 103 98 - 107 mMol/L 04/21/2024 11:27 PM [facility] Carbon Dioxide 20(L) 22 - 31 mMol/L 04/21/2024 11:27 PM [facility] Anion Gap 16(H) 5 - 15 mMol/L 04/21/2024 11:27 PM [facility] Calcium 9.4 8.5 - 10.5 mg/dL 04/21/2024 11:27 PM [facility] Est Glomerular Filtration Rate - Female 83 mL/min/1. 73 m?? 04/21/2024 11:27 PM [facility] Comment: This patient's estimated GFR [...] urine creatinine clearance. Assignment of CKD stage 1 - 5 for patients with an eGFR near the transition point between stages may be based on clinical assessment of muscle mass and symptoms in addition to eGFR. Link: eGFR Calculator [employer] Fasting Status 04/21/2024 11:27 PM [facility] Blood VENOUS BLOOD SPECIMEN / Unknown IP Care Team Draw / Unknown 04/21/2024 9:50 PM EDT 04/21/2024 10:06 PM EDT Shawn Mendez MD CHEMISTRY ORDERABLES [facility] [place] [address] * (ABNORMAL) CBC (with Diff) (04/21/2024 9:50 PM EDT) White Blood Cell 9.32 4.00 - 9.50 x10(3)/mc L 04/21/2024 10:18 PM EDT [facility] Red Blood Cell 4.98 4.00 - 5.21 x10(6)/mc L 04/21/2024 10:18 PM EDT [facility] Hemoglobin 13.6 11.7 - 15.5 g/dL 04/21/2024 10:18 PM EDT [facility] Hematocrit 41.3 35.7 - 45.8 % 04/21/2024 10:18 PM EDT [facility] Mean Cell Volume 82.9 82.6 - 94.4 fL 04/21/2024 10:18 PM EDT [facility] Mean Cell Hemoglobin 27.3 27.1 - 32.0 pg 04/21/2024 10:18 PM EDT [facility] Mean Cell Hemoglobin Concentration 32.9 31.7 - 35.0 g/dL 04/21/2024 10:18 PM EDT [facility] Platelet 236 145 - 357 x10(3)/mc L 04/21/2024 10:18 PM EDT [facility] Mean Platelet Volume 9.7 7.6 - 12.9 fL 04/21/2024 10:18 PM EDT [facility] RDW Standard Deviation 39.4 37.0 - 46.0 fL 04/21/2024 10:18 PM EDT [facility] RDW coefficient of variation 13.1 11.5 - 14.1 % 04/21/2024 10:18 PM EDT [facility] NRBC% auto 0.0 % 04/21/2024 10:18 PM EDT [facility] NRBC Absolute 0.00 0.00 - 0.00 x10(3)/mc L 04/21/2024 10:18 PM EDT [facility] Neutrophil % 66.0 % 04/21/2024 10:18 PM EDT [facility] Neutrophil Absolute (ANC) - Automated 6.15(H) 1.70 - 6.10 x10(3)/mc L 04/21/2024 10:18 PM EDT [facility] Lymph % 23.8 % 04/21/2024 10:18 PM EDT [facility] Lymph Absolute 2.22 0.90 - 3.20 x10(3)/mc L 04/21/2024 10:18 PM EDT [facility] Monocyte % 7.1 % 04/21/2024 10:18 PM EDT [facility] Monocyte Absolute 0.66 0.30 - 0.90 x10(3)/mc L 04/21/2024 10:18 PM EDT [facility] Eos % 2.7 % 04/21/2024 10:18 PM EDT [facility] Eos Absolute 0.25 0.00 - 0.40 x10(3)/mc L 04/21/2024 10:18 PM EDT [facility] Basophil % 0.2 % 04/21/2024 10:18 PM EDT [facility] Baso Absolute 0.02 0.00 - 0.10 x10(3)/mc L 04/21/2024 10:18 PM EDT [facility] Immature Gran % 0.2 % 10:18 PM EDT [facility] Immature Gran Absolute 0.02 0.00 - 0.04 x10(3)/mc L 04/21/2024 10:18 PM EDT [facility] Blood VENOUS BLOOD SPECIMEN / Unknown IP Care Team Draw / Unknown 04/21/2024 9:50 PM EDT 04/21/2024 10:06 PM EDT Shawn Mendez MD HEMATOLOGY ORDERABLE S [facility] [place] [address] * EKG 12 Lead (04/21/2024 8:05 PM EDT) Ventricular rate 58 BPM MUSE SYSTEM Atrial Rate 58 BPM MUSE SYSTEM P-R Interval 158 ms MUSE SYSTEM QRS Duration 74 ms MUSE SYSTEM Q-T Interval 466 ms MUSE SYSTEM QTC Calculated (Bezet) 457 ms MUSE SYSTEM Calculated P [place] 55 degrees MUSE SYSTEM Calculated R [place] 62 degrees MUSE SYSTEM Calculated T [place] 142 degrees MUSE SYSTEM INTERPRETATION Sinus bradycardia Anterolateral infarct (cited on or before 21-APR-2024) Abnormal ECG When compared with ECG of 19-MAR-2024 20:32, Serial changes of evolving Anterior infarct Present Serial changes of evolving Anterolateral infarct Present Confirmed by MD Karthik, Corby Fonseca ([id number]) on 04/24/2024 9:09:04 AM MUSE SYSTEM 04/21/2024 8:05 PM EDT 04/24/2024 9:09 AM EDT Shawn Mendez MD ECG ORDERABLES Performing Organization Address [facility]/ZIP Co de Phone Number MUSE SYSTEM documented in this encounter Visit Diagnoses Diagnosis Chest pain- Primary Chest pain, unspecified Chest pain, unspecified type Primary hypertension Unspecified essential hypertension Sinus bradycardia Other specified cardiac dysrhythmias Musculoskeletal pain of left upper extremity documented in this encounter Admitting Diagnoses Diagnosis Chest pain Chest pain, unspecified documented in this encounter Administered Medications Inactive Administered Medications - up to 3 most recent administrations Medication Order MAR Action Action Date Dose Rate Site aspirin chewable tablet 81 mg 81 mg, Oral, DAILY, First dose on Thu04/22/24 at 0900, Until Discontinued, Routine Given 04/22/2024 9:31 AM EDT 81 mg clopidogreL (Plavix) tablet 75 mg 75 mg, Oral, DAILY, First dose on Thu04/22/24 at 0900, Until Discontinued, Routine Given 04/22/2024 9:31 AM EDT 75 mg famotidine (Pepcid) tablet 10 mg 10 mg, Oral, 2 TIMES DAILY PRN, Starting on Thu04/22/24 at 0006, Until Thu04/22/24 at 1558, Heartburn, Routine heparin (porcine) 50 units/mL in dextrose 5% 500 mL infusion 0-5,000 Units/hr (0-100 mL/hr), Intravenous, CONTINUOUS, Starting on Viki 04/21/24 at 2215, Until Thu04/22/24 at 0917, Begin infusion at 650 units per hr (12 units/kg/hr). Maximum initial infusion rate is 1,000 units/hr. Infusion doses are rounded to the nearest 50 units. Target Heparin UFH Level (anti-Xa activity) = 0.3 - 0.7 international unit/mL Start adjustment schedule 6 hours after starting infusion. If Heparin UFH Level is: - Less than 0.1 international unit/mL: Administer PRN bolus and increase rate by 200 units per hr (4 units/kg/hr) - 0.1 - 0.19 international unit/mL: Administer PRN bolus and increase rate by 100 units per hr (2 units/kg/hr) - 0.2 - 0.29 international unit/mL: NO BOLUS and increase rate by 100 units per hr (2 units/kg/hr) - 0.3 - 0.7 international unit/mL: No change - 0.71 - 0.79 international unit/mL: NO BOLUS and decrease rate by 50 units per hr (1 units/kg/hr) - 0.8 - 0.99 international unit/mL: NO BOLUS and decrease rate by 100 units per hr (2 units/kg/hr) - Greater than or equal to 1.00 international unit/mL: Hold infusion for 60 minutes then decrease rate by 150 units per hour (3 units/kg/hr) Obtain Heparin UFH Level 6 hours after initiating heparin. Then 6 hours after each dose adjustment. When 2 consecutive Heparin UFH Level within target range of 0.3 - 0.7 international unit/mL, change Heparin UFH Level to once every 24 hours with A.M. labs while on heparin. RN to order required Heparin UFH Level - Per Protocol, Routine Rate/Dose Verify 04/22/2024 7:41 AM EDT 750 Units/hr 15 mL/hr Rate/Dose Change 04/22/2024 5:31 AM EDT 750 Units/hr 15 mL /hr New Bag 04/21/2024 10:04 PM EDT 650 Units/hr 13 mL/hr losartan (Cozaar) tablet 25 mg 25 mg, Oral, DAILY, First dose on Thu04/22/24 at 0900, Until Discontinued, Routine metoprolol succinate XL (Toprol-XL) tablet 12.5 mg 12.5 mg, Oral, DAILY, First dose (after last modification) on Thu04/22/24 at 1245, Until Discontinued, DO NOT CRUSH OR OPEN, Routine Given 04/22/2024 12:32 PM EDT 12.5 mg sodium chloride 0.9 % (flush) (BD PosiFlush Normal Saline 0.9) flush 5 mL 5 mL, Intravenous, 2 TIMES DAILY, First dose on Viki 04/21/24 at 2215, Until Discontinued, Routine Given 04/22/2024 9:32 AM EDT 5 mLs Given 04/21/2024 10:16 PM EDT 10 mLs ubiquinone (Coenzyme Q10) (Ubiquinone) capsule 50 mg 50 mg, Oral, DAILY, First dose on Thu04/22/24 at 0900, Until Discontinued, Routine Given 04/22/2024 9:31 AM EDT 50 mg documented in this encounter Active and Recently Administered Medications Times are shown in EDT. Scheduled Medication Order 04/20/2024 04/21/2024 04/22/2024 aspirin chewable tablet 81 mg 81 mg, Oral, DAILY, First dose on Thu04/22/24 at 0900, Until Discontinued, Routine 930 (Given - Provid er: Tania Jenkins RN) atorvastatin (Lipitor) tablet 80 mg 80 mg, Oral, EVERY EVENING, First dose on Thu04/22/24 at 1700, Until Discontinued, Routine clopidogreL (Plavix) tablet 75 mg 75 mg, Oral, DAILY, First dose on Thu04/22/24 at 0900, Until Discontinued, Routine 930 (Given - Provid er: Tania Jenkins RN) losartan (Cozaar) tablet 25 mg 25 mg, Oral, DAILY, First dose on Thu04/22/24 at 0900, Until Discontinued, Routine metoprolol succinate XL (Toprol-XL) tablet 12.5 mg 12.5 mg, Oral, DAILY, First dose (after last modification) on Thu04/22/24 at 1245, Until Discontinued, DO NOT CRUSH OR OPEN, Routine 1232 (Given - Provid er: Tania Jenkins RN) sodium chloride 0.9 % (flush) (BD PosiFlush Normal Saline 0.9) flush 5 mL 5 mL, Intravenous, 2 TIMES DAILY, First dose on Thu04/21/24 at 2215, Until Discontinued, Routine 221 (Given - Provider: Danie Wilson RN) 0932 (Given - Provider: Tania Jenkins RN) ubiquinone (Coenzyme Q10) (Ubiquinone) capsule 50 mg 50 mg, Oral, DAILY, First dose on Thu04/22/24 at 0900, Until Discontinued, Routine 09 (Given - Provid er: Tania Jenkins RN) Continuous Medication Order 04/20/2024 04/21/2024 04/22/2024 heparin (porcine) 50 units/mL in dextrose 5% 500 mL infusion (CANCELED)(Linked Group 1) 0-5,000 Units/hr (0-100 mL/hr), Intravenous, CONTINUOUS, Starting on Thu04/21/24 at 2215, Until Thu04/22/24 at 0917, Begin infusion at 650 units per hr (12 units/kg/hr). Maximum initial infusion rate is 1,000 units/hr. Infusion doses are rounded to the nearest 50 units. Target Heparin UFH Level (anti-Xa activity) = 0.3 - 0.7 international unit/mL Start adjustment schedule 6 hours after starting infusion. If Heparin UFH Level is: - Less than 0.1 international unit/mL: Administer PRN bolus and increase rate by 200 units per hr (4 units/kg/hr) - 0.1 - 0.19 international unit/mL: Administer PRN bolus and increase rate by 100 units per hr (2 units/kg/hr) - 0.2 - 0.29 international unit/mL: NO BOLUS and increase rate by 100 units per hr (2 units/kg/hr) - 0.3 - 0.7 international unit/mL: No change - 0.71 - 0.79 international unit/mL: NO BOLUS and decrease rate by 50 units per hr (1 units/kg/hr) - 0.8 - 0.99 international unit/mL: NO BOLUS and decrease rate by 100 units per hr (2 units/kg/hr) - Greater than or equal to 1.00 international unit/mL: Hold infusion for 60 minutes then decrease rate by 150 units per hour (3 units/kg/hr) Obtain Heparin UFH Level 6 hours after initiating heparin. Then 6 hours after each dose adjustment. When 2 consecutive Heparin UFH Level within target range of 0.3 - 0.7 international unit/mL, change Heparin UFH Level to once every 24 hours with A.M. labs while on heparin. RN to order required Heparin UFH Level - Per Protocol, Routine 2204 (New Bag - Provider: Danie Wilson RN) 0531 (Rate/Dose Change - Provider: Danie Wilson, RN)0741 (Rate/Dose Verify - Provider: Tania Jenkins RN) PRN Medication Order 04/20/2024 04/21/2024 04/22/2024 famotidine (Pepcid) tablet 10 mg 10 mg, Oral, 2 TIMES DAILY PRN, Starting on Thu04/22/24 at 0006, Until Thu04/22/24 at 1558, Heartburn, Routine lidocaine (Xylocaine) 1% (10 mg/mL) injection 3 mg 3 mg (0.3 mL), Subcutaneous, ONCE PRN, 1 dose, Starting on Viki 04/21/24 at 2148, Until Thu04/22/24 at 1558, for discomfort with PIV insertion, Routine nitroGLYcerin (Nitrostat) disintegrating tablet 0.4 mg 0.4 mg, Sublingual, EVERY 5 MIN PRN, Starting on Viki 04/21/24 at 2148, Until Thu04/22/24 at 1558, Chest pain, SL nitroglycerin may be repeated every 5 minutes as needed up to 3 doses, Routine sodium chloride 0.9 % (flush) (BD PosiFlush Normal Saline 0.9) flush 5-20 mL 5-20 mL, Intravenous, EVERY 1 MIN PRN, Starting on Viki 04/21/24 at 2148, Until Thu04/22/24 at 1558, flush, Flush pertains to all indwelling lines. Flush per protocol found in the job aid using the link provided on this medication record., Routine Linked Groups Order Group 1: heparin (porcine) 50 units/mL in dextrose 5% 500 mL infusion (CANCELED)Jump to med 0-5,000 Units/hr (0-100 mL/hr), Intravenous, CONTINUOUS, Starting on Viki 04/21/24 at 2215, Until Thu04/22/24 at 0917, Begin infusion at 650 units per hr (12 units/kg/hr). Maximum initial infusion rate is 1,000 units/hr. Infusion doses are rounded to the nearest 50 units. Target Heparin UFH Level (anti-Xa activity) = 0.3 - 0.7 international unit/mL Start adjustment schedule 6 hours after starting infusion. If Heparin UFH Level is: - Less than 0.1 international unit/mL: Administer PRN bolus and increase rate by 200 units per hr (4 units/kg/hr) - 0.1 - 0.19 international unit/mL: Administer PRN bolus and increase rate by 100 units per hr (2 units/kg/hr) - 0.2 - 0.29 international unit/mL: NO BOLUS and increase rate by 100 units per hr (2 units/kg/hr) - 0.3 - 0.7 international unit/mL: No change - 0.71 - 0.79 international unit/mL: NO BOLUS and decrease rate by 50 units per hr (1 units/kg/hr) - 0.8 - 0.99 international unit/mL: NO BOLUS and decrease rate by 100 units per hr (2 units/kg/hr) - Greater than or equal to 1.00 international unit/mL: Hold infusion for 60 minutes then decrease rate by 150 units per hour (3 units/kg/hr) Obtain Heparin UFH Level 6 hours after initiating heparin. Then 6 hours after each dose adjustment. When 2 consecutive Heparin UFH Level within target range of 0.3 - 0.7 international unit/mL, change Heparin UFH Level to once every 24 hours with A.M. labs while on heparin. RN to order required Heparin UFH Level - Per Protocol, Routine And heparin (porcine) (1,000 units/mL) injection 0-4,000 Units (CANCELED) 0-4,000 Units, Intravenous, BOLUS PER HEPARIN PROTOCOL, Starting on Viki 04/21/24 at 2148, Until Thu04/22/24 at 0917, Per Protocol, START ADJUSTMENT SCHEDULE 6 HOURS AFTER STARTING INFUSION Bolus doses are rounded to the nearest 100 units. If Heparin UFH Level is: - Less than 0.1 international unit/mL: Bolus 60 units/kg (Maximum of 4,000 units) = Bolus 3,300 units - 0.1 - 0.19 International unit/mL: Bolus 30 units/kg (Maximum of 2,000 units) = Bolus 1,600 units - Equal to or greater than 0.2 international unit/mL: No Bolus, Routine documented in this encounter Care Teams Sole Seamer Relationship Specialty Start Date End Date Rosalba Archibald APRN [address] [place] [address] PCP - General Family Medicine 04/21/24 documented as of this encounter
--- OUTSIDE RECORDS SUMMARY | 2024-05-19 08:31 | XMS_ITS | Encounter Summary ---
Author Organization [facility] Address [address] [place] [address] Care Team Providers Care Senior Operator Name Role Phone Unavailable Primary Care Provider Unavailabl e Encounter Details Date Type Department Care Team (Late st Contact Info) Description 12/31/2007 Results Only [facility] OBGYN Services - [address] [id number] Skip Alcocer MD [address] [place] [address], [address] [place] [address] Social History Tobacco Use Types [...] Results * AMNIOTIC FLUID/[facility] ANEUPLOIDY FISH (FOR X,Y,21,13,18)([facility] #[id number]) (12/31/2007 16:34 EDT) Specimen (Note) Chorionic Villi Sample ? [facility] Specimen ID [id number] [facility] Order Date 01 Jan 2008 09:10 [facility] Method (Note) FISH analysis of 100 nuclei with probes for Xcen (DXZ1), ? Ycen (DYZ3), 13q14 (Rb1), 18cen (D18Z1) and 21q22 ([id number]). ? [facility] Reason For Referral [...] ? FISH results. ? The [employer] and the [employer] ? [employer] recommend confirmation of ? abnormal diagnostic results at or ? termination, to the extent possible. ? DISCLAIMER: ??This test was developed and its performance ? characteristics determined by Laboratory Medicine and ? Pathology, [facility]. ??It has not been cleared ? or approved by the U.S. Food and Drug Administration. ??This ? FISH assay does not rule out other chromosome anomalies. ? Woody et al., [place] Clin Proc 73:132-137, 1998. ? [facility] Consultant Nurse (Note) Eduardo Corey MD ? [facility] Report Date 03 Jan 2008 12:44 Performed or Referred by: [facility] Dpt of Lab Med and Path, [address] ?? , [place] [address], Lab Dir: MD URVASH[facility] Morgan III 12/31/2007 16:3 4 EDT 12/31/2007 16:34 EDT Skip Alcocer MD GEN LAB UNIT EL[facility] ECT ORDERABLES [facility] [address] [place] [address] * [facility] CHROMOSOME ANALYSIS ([facility] #[id number]) (12/31/2007 16:34 EDT) Specimen (Note) Chorionic Villi Sample ? [facility] Specimen ID [id number] [facility] Order Date 01 Jan [...] ? reported separately. ? [facility] Consultant Nurse (Note) Manuel V N Velagakarlyi PhD ? [facility] Report Date 10 Jan 2008 16:27 Performed or Referred by: [facility] Dpt of Lab Med and Path, [address] , [place] [address], Lab Dir: MD URVASHI Morgan III Haploid Band Resolution 400Unit: bands [facility] Total Cells Analyzed 30 [facility] Total Cells Karyotyped 2 [facility] 12/31/2007 16:3 4 EDT 12/31/2007 16:34 EDT Skip Alcocer MD HEMATOLOGY & PF4 ORDERABLES [facility] [address] [place] [address] documented in this encounter Visit Diagnoses Not on filedocumented in this encounter
--- OUTSIDE RECORDS SUMMARY | 2024-05-19 08:31 | XMS_ITS | Encounter Summary ---
Author Organization [facility] Address [address] [place] [address] Care Team Providers Care Clinical Care Coordinator Name Role Phone Unavailable Primary Care Provider Unavailabl e Encounter Details Date Type Department Care Team (Late st Contact Info) Description 04/29/2010 Results Only [address] [address] Pretty Avery MD [address] [place] [id number] Social History Tobacco Use Types Packs/Day Years [...] ? EZEQUIEL THOMAS ? Accession #: ? [id number] ? : ? 1965 (Age: 45) ??F [...] Avery MD PATHOLOGY ORDERABLES [facility] [address] [place] [address] documented in this encounter Visit Diagnoses Not on filedocumented in this encounter
--- OUTSIDE RECORDS SUMMARY | 2024-05-19 08:31 | XMS_ITS | Encounter Summary ---
Author Organization [facility] [place] [address] Care Team Providers Care Custom Wood Stair Builder Name Role Phone Rosalba Archibald APRN Primary Care Provider [phone] Encounter Details Date Type Department Care Team (Late st Contact Info) Description 04/20/2024 External Results Administration [facility] [place] [phone] Social History Tobacco Use Types Packs/Day Years Used Date Smoking Tobacco: Former Smokeless Tobacco: Never Alcohol Use Standard Drinks/Week Comments Yes 14 (1 standard drink = 0.6 oz pu re alcohol) [facility] Utilities Answer Date Recorded In the [...] were you homeless or living in a care home (including now)? No 04/22/2024 IPV Inpatient Questions Answer Date Recorded Does [...] 4:00 PM EDT Office Visit Cardiology at [address] [phone] Kaylee Sutherland MD [facility] [place] [address] documented as of this encounter Procedures Procedure Name Priority Date/Time Associated Diagnosis Comments MISC EXTERNAL CARDIOLOGY RESULT Routine 04/20/2024 4:03 PM EDT documented in this encounter Results * External Cardiology Result (04/20/2024 4:03 PM EDT) Anatomical Region Laterality Modality Other Historical Provider EXTERNAL CARDIOLO GY RESULT documented in this encounter Visit Diagnoses Not on filedocumented in this encounter Care Teams Custom Wood Stair Builder Relationship Specialty Start Date End Date Rosalba Archibald APRN [address] [place] [address] PCP - General Family Medicine 04/21/24 documented as of this encounter
--- OUTSIDE RECORDS SUMMARY | 2024-05-19 08:31 | XMS_ITS | Clinical Summary ---
Author Organization [facility] Address [facility] [place] [address] Care Team Providers Care Dub Room Engineer Name Role Phone Rosalba Archibald APRN Primary Care Provider [phone] Allergies No known active allergies Medications Medication [...] 2 times daily as needed. 30 tablet 03/22/2024 Active nitroGLYcerin (Nitrostat) 0.[address] 1 tablet under the tongue every 5 minutes as needed for Chest pain. 90 tablet 03/22/2024 Active ubiquinone, Coenzyme Q10, (Ubiquinone) 50 mg capsule Take 1 capsule by mouth daily. 30 capsule 3 03/23/2024 Active metoprolol succinate XL (Toprol-XL) 25 mg ER 24 hr tablet Take 0.5 tablets by mouth nightly. 30 tablet 03/27/2024 Active losartan (Cozaar) 25 mg tablet Take 1 tablet by mouth daily. 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 03/19/2024 Encounters Date Type Department Care Team Description 04/22/2024 9:15 AM EDT - 04/22/2024 11:59 PM EDT Hospital Encounter Non-Invasive [place] [address] Discharge Disposition: Home 04/21/2024 7:24 PM EDT - 04/22/2024 1:58 PM EDT Hospital Encounter Heart and Vascular Unit Level 4 [place] [address] Kiran Amador MD Battula, MD Freddy Aaron Poornima, MD Kussaga, Shawn Bennett MD Chest pain, unspecified type Discharge Disposition: Home 04/21/2024 Telephone Cardiology at [address] [phone] Stacia Smith RN 04/20/2024 Telephone Cardiology [place] [phone] Shamar Lehman MD 04/20/2024 External [place] [address] 03/27/2024 Telephone Cardiology at [address] [phone] Fidel Yanes PA 03/19/2024 8:10 AM EDT - 03/19/2024 11:59 PM EDT Hospital Encounter Non-Invasive [place] [address] Discharge Disposition: Home 03/19/2024 1:05 AM EDT - 03/19/2024 2:06 AM EDT Surgery M[place] [address] Ramo Roy MD CARDIAC CATHETERIZATION 03/19/2024 12:37 AM EDT - 03/22/2024 12:10 PM EDT Hospital Encounter Heart and Vascular Unit Level 4 Wing A at [place] [phone] Min, MD Santi Vigil Xavier L, MD Ramachandra, Nayana, MD ST elevation myocardial infarction involving left anterior descending (LAD) coronary artery; Chest pain, unspecified type Discharge Disposition: Home 03/18/2024 11:37 PM EDT - 03/18/2024 11:59 PM EDT Hospital Encounter DHART at at [place] [phone] Min, Destin Grajeda MD Discharge Disposition: Home 03/18/2024 Telephone Cardiology at [address] [phone] Yusuf Herrera MD 03/18/2024 External Results [place] [phone] from Last 3 Months Social History Tobacco Use Types Packs/Day Years Used Date Smoking Tobacco: Former Smokeless Tobacco: Never Alcohol Use Standard Drinks/Week Comments Yes 14 (1 standard drink = 0.6 oz pu re alcohol) [facility] Utilities Answer Date Recorded In the past [address] [facility] [employer], [employer], oil, or water [employer] threatened to shut off services in your [...] any time in the past 12 m [facility], were you homeless or living in a assisted (including now)? No 04/22/2024 IPV Inpatient Questions [...] Mass Index 21.84 04/21/2024 7:24 PM EDT Plan of Treatment Upcoming Encounters Date Type Department Care Team (Late st Contact Info) Description 06/03/2024 4:00 PM EDT Office Visit Cardiology at [address] [phone] Kaylee Sutherland MD [facility] [place] [address] Health Maintenance Due Date Last Done Comments [...] of 2) 2014 Covid-19 Vaccine ( - 2022-24 season) 2023 Influenza (Flu) vaccine (1 o f 1 - Influenza standard series) 05/15/2024 Procedures Procedure Name Priority Date/Time Associated Diagnosis Comments ECHO LMTD W CONTRAST W LMTD SPEC DOPP COLOR DOPP Routine 04/22/2024 1:08 PM EDT Chest pain, unspecified type SCAN DOC: TELEMETRY STRIPS 04/22/2024 8:28 AM EDT SCAN DOC: TELEMETRY STRIPS 04/22/2024 7:17 AM EDT HEPARIN (UNFRACTIONATED) LEVEL Timed 04/22/2024 4:40 AM EDT GLUCOSE Routine 04/22/2024 4:40 AM EDT TRIGLYCERIDE Routine 04/22/2024 4:40 AM EDT HDL/CHOL PROFILE Routine 04/22/2024 4:40 AM EDT LDL CHOLESTEROL, DIRECT Routine 04/22/20 24 4:40 AM EDT MAGNESIUM Routine 04/22/2024 4:40 AM EDT BASIC METABOLIC PANEL Routine 04/22/2024 4:40 AM EDT CBC (WITH DIFF) Routine 04/22/2024 4:40 AM EDT TROPONIN-T, HIGH SENSITIVITY 1 HOUR PERFORMABLE STAT 04/22/2024 4:40 AM EDT TROPONIN-T, HIGH SENSITIVITY INITIAL PERFORMABLE STAT 04/21/2024 9:50 PM EDT TSH Routine 04/21/2024 9:50 PM EDT HEPATIC FUNCTION PANEL Routine 9:50 PM EDT HC PARTIAL THROMBOPLASTIN TIME Routine 04/21/2024 9:50 PM EDT PROTHROMBIN TIME Routine 04/21/2024 9:50 PM EDT MAGNESIUM Routine 04/21/2024 9:50 PM EDT BASIC METABOLIC PANEL Routine 04/21/2024 9:50 PM EDT CBC (WITH DIFF) Routine 04/21/2024 9:50 PM EDT TROPONIN - SERIES STAT 04/21/2024 9:5 0 PM EDT SCAN DOC: TELEMETRY STRIPS 04/21/2024 9:24 PM EDT EKG 12-LEAD Routine 04/21/2024 8:05 PM EDT Chest pain, unspecified type SCAN DOC: TELEMETRY STRIPS 04/21/2024 7:57 PM EDT [facility] Routine 04/20/2024 4:03 PM [...] EDT from Last 3 Months Results * ECHO LMTD W CONTRAST W LMTD SPEC DOPP COLOR DOPP (04/22/2024 1:08 PM EDT) Anatomical Region Laterality Modality Cardiac Other 04/22/2024 10:5 9 AM EDT Narrative 04/22/2024 2:27 PM EDT [address] [place] [address] ? Echocardiogram Report Name: ISA RO Chuy ?Study Date: 04/22/2024 10:59 AM ? Patient Location: 4A : 1965 ? Height: 157 cm ? Account: [id number] Age: 59 yrs ? Weight: 54 kg Gender: Female ?BSA: 1.5 m2 Ordering Physician: FREDDY^BRENDON Referring Physician: BRENDON HAYES Performed By: PEREZ Oliveira Reason For Study: chest pain Interpreting Fellow: Jie Aponte. Exam Location: [facility]. Interpretation Summary 1. The left ventricular [...] function has slightly improved. Procedure Limited - [id number]. Image enhancement Optison was used for left [...] Note Destin Ambrosio MD - 04/22/2024 [address] [place] [address] Echocardiogram Report Name: ISA RO Study Date: 0:59 AM Patient Location: : 1965 Height: 157 cm Account: [id number] Age: 59 yrs Weight: 54 kg Gender: Female BSA: 1.5 m2 Ordering Physician: BOBBY Referring Physician: BRENDON HAYES Performed By: PEREZ Oliveiar Reason For Study: chest pain Interpreting Fellow: Jie Aponte. Exam Location: [facility]. Interpretation Summary 1. The left ventricular [...] ventricular function hasslightly improved. Procedure Limited - [id number]. Image enhancement Optison was used for left [...] 15-16diffuse Brendon Hayes MD ECHO ORDERABLES * Scan Doc: Telemetry Strips (04/22/2024 8:28 AM EDT) Only the most recent of8 resultswithin the time period is included. Narrative 04/22/2024 8:28 AM EDT Ordered by an unspecified provider. Scanning Provider MEDIA MGR SCAN EXT O RDR/RSLT * Troponin-T, High Sensitivity 1 Hour (04/22/2024 4:40 AM EDT) [facility] Troponin-T, High Sensitivity 11 <=14 ng/L 04/22/2024 5:35 AM EDT [facility] Comment: This patient's [...] troponin value can be found in the [facility] Laboratory Test Catalog Troponin - [email or web address].org/catalogs/565/files/[email or web address] Reference: [place] Definition of Myocardial Infarction. Journal of the [place] College [employer] 2018;72:7913-7248 Troponin-T, HS 1 hr delta 04/22/2024 5:35 AM EDT [facility] Comment:Delta troponin value not calculated, sample collected outside of delta calculation time limit. Blood VENOUS BLOOD SPECIMEN / Unknown IP Care Team Draw / Unknown 04/22/2024 4:40 AM EDT 04/22/2024 5:04 AM EDT Shawn Mendez MD CHEMISTRY ORDERABLES Performing Organization Address [facility] Co de Phone Number [facility] [place] [place] [address] * Heparin (unfractionated) Level (04/22/2024 4:40 AM EDT) UF Heparin 0.23 IU/mL 04/22/2024 5:25 AM EDT [facility] Comment: Heparin (anti-Xa) levels should [...] MD HEMATOLOGY ORDERABLE S Performing Organization Address [facility]/ZIP Co de Phone Number [facility] [place] [address] * CBC (with Diff) (04/22/2024 4:40 AM EDT) Only the most recent of2 resultswithin the time period is included. White Blood Cell 6.95 4.00 - 9.50 x10(3)/mcL 04/22/2024 5:24 AM [facility] Red Blood Cell 4.45 4.00 - 5.21 x10(6)/mcL 04/22/2024 5:24 AM [facility] Hemoglobin 12.2 11.7 - 15.5 g/dL 04/22/2024 5:24 AM [facility] Hematocrit 38.1 35.7 - 45.8 % 04/22/2024 5:24 AM [facility] Mean Cell Volume 85.6 82.6 - 94.4 fL 04/22/2024 5:24 AM [facility] Mean Cell Hemoglobin 27.4 27.1 - 32.0 pg 04/22/2024 5:24 AM [facility] Mean Cell Hemoglobin Concentration 32.0 31.7 - 35.0 g/dL 04/22/2024 5:24 AM [facility] Platelet 192 145 - 357 x10(3)/mcL 04/22/2024 5:24 AM [facility] Mean Platelet Volume 9.7 7.6 - 12.9 fL 04/22/2024 5:24 AM [facility] RDW Standard Deviation 40.3 37.0 - 46.0 fL 04/22/2024 5:24 AM [facility] RDW coefficient of variation 13.0 11.5 - 14.1 % 04/22/2024 5:24 AM [facility] NRBC% auto 0.0 % 04/22/2024 5:24 AM [facility] NRBC Absolute 0.00 0.00 - 0.00 x10(3)/mcL 04/22/2024 5:24 AM [facility] Neutrophil % 65.5 % 04/22/2024 5:24 AM [facility] Neutrophil Absolute (ANC) - Automated 4.55 1.70 - 6.10 x10(3)/mcL 04/22/2024 5:24 AM EDT [facility] Lymph % 23.0 % 04/22/2024 5:24 AM EDT [facility] Lymph Absolute 1.60 0.90 - 3.20 x10(3)/mcL 04/22/2024 5:24 AM EDT [facility] Monocyte % 7.5 % 04/22/2024 5:24 AM EDT [facility] Monocyte Absolute 0.52 0.30 - 0.90 x10(3)/mcL 04/22/2024 5:24 AM EDT [facility] Eos % 3.2 % 04/22/2024 5:24 AM EDT [facility] Eos Absolute 0.22 0.00 - 0.40 x10(3)/mcL 04/22/2024 5:24 AM EDT [facility] Basophil % 0.4 % 04/22/2024 5:24 AM EDT [facility] Baso Absolute 0.03 0.00 - 0.10 x10(3)/mcL 04/22/2024 5:24 AM EDT [facility] Immature Gran % 0.4 % 5:24 AM EDT [facility] Immature Gran Absolute 0.03 0.00 - 0.04 x10(3)/mcL 04/22/2024 5:24 AM EDT [facility] Blood VENOUS BLOOD SPECIMEN / Unknown IP Care Team Draw / Unknown 04/22/2024 4:40 AM EDT 04/22/2024 5:04 AM EDT Shawn Mendez MD HEMATOLOGY ORDERABLE S [facility] [place] [address] * Triglyceride (04/22/2024 4:40 AM EDT) Triglyceride 126 mg/dL 04/22/2024 5:35 AM EDT [facility] Comment: Normal: <150 mg/dL Borderline High: 150-199 mg/dL High: 200-499 mg/dL Very High: > or =500 mg/dL Blood VENOUS BLOOD SPECIMEN / Unknown IP Care Team Draw / Unknown 04/22/2024 4:40 AM EDT 04/22/2024 5:04 AM EDT Shawn Mendez MD CHEMISTRY ORDERABLES Performing Organization Address City/[facility] Co de Phone Number [facility] [place] [address] * Magnesium (04/22/2024 4:40 AM EDT) Only the most recent of7 resultswithin the time period is included. Magnesium 0.88 0.69 - 1.07 mMol/L 04/22/2024 5:35 AM EDT [facility] Blood VENOUS BLOOD SPECIMEN / Unknown IP Care Team Draw / Unknown 04/22/2024 4:40 AM EDT 04/22/2024 5:04 AM EDT Shawn Mendez MD CHEMISTRY ORDERABLES Performing Organization Address [facility] Co de Phone Number [facility] [place] [address] * LDL Cholesterol, Direct (04/22/2024 4:40 AM EDT) LDL Cholesterol, Direct 99 mg/dL 04/22/2024 5:35 AM EDT [facility] Comment: Desirable: <100 mg/dL Above [...] AM EDT Shawn Mendez MD CHEMISTRY ORDERABLES [facility] [place] [place] [address] * HDL/Cholesterol Profile (04/22/2024 4:40 AM EDT) [facility] Cholesterol, Total 170 mg/dL 04/22/2024 5:35 AM EDT [facility] Comment: Desirable: < 200 mg/dL Borderline High: 200 - 239 mg/dL High: > or = 240 mg/dL HDL Cholesterol 55 mg/dL 5:35 AM EDT [facility] Comment:Female: High Risk: < 50 mg/dL Non-HDL Cholesterol 115 mg/dL 04/22/2024 5:35 AM EDT [facility] Comment: Desirable: <130 mg/dL Above Desirable: 130-159 mg/dL Borderline High: 160-189 mg/dL High: 190-219 mg/dL Very High: > or = 220 mg/dL Blood VENOUS BLOOD SPECIMEN / Unknown IP Care Team Draw / Unknown 04/22/2024 4:40 AM EDT 04/22/2024 5:04 AM EDT Narrative [facility] - 04/22/2024 5:35 AM EDT [...] ACC/AHA Guidelines (most recently Jw et al. [facility] 06/17/22): * For individuals with atherosclerotic [...] artery disease) Shawn Mendez MD CHEMISTRY ORDERABLES [facility] [place] [address] * Glucose (04/22/2024 4:40 AM EDT) [facility] Glucose 89 65 - 199 mg/dL 04/22/2024 5:35 AM EDT [facility] Comment:Glucose Concentratio n >=200 mg/dL plus symptoms is consistent with Diabetes Mellitus. Fasting Status 04/22[facility]2024 [facility] Blood VENOUS BLOOD SPECIMEN / Unknown IP Care Team Draw / Unknown 04/22/2024 4:40 AM EDT 04/22/2024 5:04 AM EDT Shawn Mendez MD CHEMISTRY ORDERABLES [facility] [place] [place] [address] * Basic Metabolic Panel (04/22/2024 4:40 AM EDT) Only the most recent of6 resultswithin the time period is included. Glucose 89 65 - 199 mg/dL 04/22/2024 5:35 AM EDT [facility] Comment:Glucose Concentratio n >=200 mg/dL plus symptoms is consistent with Diabetes Mellitus. Blood Urea Nitrogen 14 8 - 18 mg/dL 04/22/2024 5:35 AM [facility] Creatinine 0.79 0.70 - 1.20 mg/dL 04/22/2024 5:35 AM [facility] Sodium 142 135 - 145 mMol/L 04/22/2024 5:35 AM [facility] Potassium 4.2 3.5 - 5.0 mMol/L 04/22/2024 5:35 AM [facility] Chloride 106 98 - 107 mMol/L 04/22/2024 5:[facility] Carbon Dioxide 22 22 - 31 mMol/L 04/22/2024 5:35 AM [facility] Anion Gap 14 5 - 15 mMol/L 04/22/2024 5:35 AM [facility] Calcium 9.8 8.5 - 10.5 mg/dL 04/22/2024 5:35 [facility] Est Glomerular Filtration Rate - Female 86 mL/min/1. 73 m?? 04/22/2024 5:35 AM EDT [facility] Comment: This patient's estimated GFR [...] Foundation Fasting Status 04/22/2024 5:35 AM EDT [facility] Blood VENOUS BLOOD SPECIMEN / Unknown IP Care Team Draw / Unknown 04/22/2024 4:40 AM EDT 04/22/2024 5:04 AM EDT Shawn Mendez MD CHEMISTRY ORDERABLES [facility] [place] [address] * Troponin-T, High Sensitivity (04/21/2024 9:50 PM EDT) Pathologist [facility] Troponin-T, High Sensitivity Initial 11 <=14 ng/L 04/21/2024 11:32 PM EDT [facility] Comment: This patient's [...] troponin value can be found in the [facility] Test Catalog Troponin - [email or web address].org/catalogs/565/files/[email or web address] Reference: Fourth [place] Definition of Myocardial Infarction. Journal of the [place] College of Cardiology 2018;72:7461-2093 Blood VENOUS BLOOD SPECIMEN / Unknown IP Care Team Draw / Unknown 04/21/2024 9:50 PM EDT 04/21/2024 10:06 PM EDT Shawn Mendez MD CHEMISTRY ORDERABLES Performing Organization Address [facility] Co de Phone Number [facility] [place] [address] * (ABNORMAL) APTT (04/21/2024 9:50 PM EDT) Only the most recent of3 resultswithin the time period is included. Partial Thromboplastin Time 38(H) 25 - 37 sec 04/21/2024 10:29 PM EDT [facility] Comment: The PTT is NOT [...] S Performing Organization Address City/[facility] Co de Phone Number [facility] [place] [address] * Prothrombin Time (04/21/2024 9:50 PM EDT) Only the most recent of3 resultswithin the time period is included. Prothrombin Time 11.5 9.4 - 12.5 sec 04/21/2024 10:29 PM EDT [facility] International Normalization Ratio 1.0 <=4.9 04/21/2024 10:29 PM EDT [facility] Comment: An INR < 2.0 [...] [facility]/ZIP Co de Phone Number [facility] [place] [address] * (ABNORMAL) TSH (04/21/2024 9:50 PM EDT) Pathologist [facility] Thyroid Stimulating Hormone 6.58(H) 0.27 - 4.20 mcIU/mL 04/21/2024 11:27 PM EDT [facility] Comment: Reference Interval (mcIU/mL): ?? Females: ? First Trimester: 0.23-3.88 ? Second Trimester: 0.22-3.90 ? Third Trimester: 0.44-4.66 Blood VENOUS BLOOD SPECIMEN / Unknown IP Care Team Draw / Unknown 04/21/2024 9:50 PM EDT 04/21/2024 10:06 PM EDT Shawn Mendez MD CHEMISTRY ORDERABLES Performing Organization Address City/[facility]/ZIP Co de Phone Number [facility] [place] [address] * Hepatic Function Panel (04/21/2024 9:50 PM EDT) Only the most recent of2 resultswithin the time period is included. Pathologist [facility] Albumin 4.3 3.2 - 5.2 g/dL 04/21/2024 11:27 PM EDT [facility] Aspartate Aminotransferase 21 <=30 unit/L 04/21/2024 11:27 PM EDT [facility] Alanine Aminotransferase 18 0 - 30 unit/L 04/21/2024 11:27 PM EDT [facility] Alkaline Phosphatase 76 35 - 105 unit/L 04/21/2024 11:27 PM EDT [facility] Bilirubin, Total <0.2 <=1.3 mg/dL 04/21/2024 11:27 PM EDT [facility] Bilirubin, Direct <0.2 0.0 - 0.3 mg/dL 04/21/2024 11:27 PM EDT [facility] Protein, Total 7.1 6.1 - 8.0 g/dL 04/21/2024 11:27 PM EDT [facility] Blood VENOUS BLOOD SPECIMEN / Unknown IP Care Team Draw / Unknown 04/21/2024 9:50 PM EDT 04/21/2024 10:06 PM EDT Shawn Mendez MD CHEMISTRY ORDERABLES Performing Organization Address City/State/[facility] Co de Phone Number [facility] [place] [address] * EKG 12 Lead (04/21/2024 8:05 PM EDT) Only the most recent of4 resultswithin the time period is included. Ventricular rate 58 BPM MUSE SYSTEM Atrial Rate 58 BPM MUSE SYSTEM P-R Interval 158 ms MUSE SYSTEM QRS Duration 74 ms MUSE SYSTEM Q-T Interval 466 ms MUSE SYSTEM QTC Calculated (Bezet) 457 ms MUSE SYSTEM Calculated P [place] 55 degrees MUSE SYSTEM Calculated R [place] 62 degrees MUSE SYSTEM Calculated T [place] 142 degrees MUSE SYSTEM INTERPRETATION Sinus bradycardia Anterolateral infarct (cited on or before 21-APR-2024) Abnormal ECG When compared with ECG of 19-MAR-2024 20:32, Serial changes of evolving Anterior infarct Present Serial changes of evolving Anterolateral infarct Present Confirmed by MD Karthik, Corby Fonseca ([id number]) on 04/24/2024 9:09:04 AM MUSE SYSTEM 04/21/2024 8:05 PM EDT 04/24/2024 9:09 AM EDT Shawn Mendez MD ECG ORDERABLES MUSE SYSTEM * External Cardiology Result (04/20/2024 4:03 PM EDT) Anatomical Region Laterality Modality Other Historical Provider EXTERNAL CARDIOLO GY RESULT * (ABNORMAL) Hemogram (03/22/2024 5:06 AM EDT) Only the most recent of5 resultswithin the time period is included. White Blood Cell 11.6(H) 4.0 - 9.5 x10(3)/mc L [facility] Red Blood Cell 4.80 4.00 - 5.21 x10(6)/mc L [facility] Hemoglobin 13.5 11.7 - 15.5 g/dL [facility] Hematocrit 40.3 35.7 - 45.8 % [facility] Mean Cell Volume 84.0 82.6 - 94.4 fL [facility] Mean Cell Hemoglobin 28.1 27.1 - 32.0 pg [facility] Mean Cell Hemoglobin Concentration 33.5 31.7 - 35.0 g/dL [facility] Platelet 232 145 - 357 x10(3)/mc L [facility] RDW Standard Deviation 42.2 37.0 - 46.0 [facility] RDW coefficient of variation 13.5 11.5 - 14.1 % [facility] Mean Platelet Volume 9.7 7.6 - 12.9 fL [facility] NRBC% auto 0.0 % [facility] NRBC Absolute 0.000 0.000 - 0.000 x10(3)/mc L [facility] Blood 03/22/2024 5:06 AM EDT 03/22/2024 5:12 AM EDT Narrative Resulting Agency Comment Spec In Lab Horace Hancock MD HEMATOLOGY ORDERABLE S [facility] [place] [place] [address] * (ABNORMAL) Differential, Automated (03/22/2024 5:06 AM EDT) Only the most recent of5 resultswithin the time period is included. Neutrophil % 71.6 % [facility] Neutrophil Absolute 8.34(H) 1.70 - 6.10 x10(3)/ L [facility] Lymph % 17.4 % [facility] Lymphocytes Abs 2.0 0.9 - 3.2 x10(3)/ L [facility] Monocyte % 8.2 % [facility] Monocyte Abs 1.0(H) 0.3 - 0.9 x10(3)/ L [facility] Eos % 2.2 % [facility] Eosinophils Abs 0.3 0.0 - 0.4 x10(3)/ L [facility] Basophil % 0.3 % [facility] Baso Absolute 0.0 0.0 - 0.1 x10(3)/ L [facility] Immature Gran % 0.30 % [facility] Comment: Immature granulocytes(IG's)percentage and absolute count will include metamyelocytes, myelocytes, and promyelocytes. Blood smears from CBCs yielding IG's will be scanned manually for concordance. If this scan disagrees with the automated IG or if promyelocytes are noted, a manual differential will be performed. Immature Gran Absolute 0.03 0.00 - 0.04 x10(3)/mc L [facility] Blood 03/22/2024 5:06 AM EDT 03/22/2024 5:12 AM EDT Narrative Resulting Agency Comment Spec In Lab Horace Hancock MD HEMATOLOGY ORDERABLE S Performing Organization Address [facility] Co de Phone Number [facility] [place] [address] * Metanephrines, Fractionated Free, plasma (03/21/2024 2:57 AM EDT) Normetanephrine, Free (JANUARY) 0.47 <0.90 nmol/L [facility] Comment: Test Performed by: [facility] [place] [address] Glass Embosser: Chasity Hernandez Ph.D.; CLIA# [id number] Metanephrine, Free (JANUARY) <0.20 <0.50 nmol/L [facility] Comment: ADDITIONAL INFORMATION This test was developed and its performance characteristics determined by [facility] in a manner consistent with CLIA requirements. This test has not been cleared or approved by the U.S. Food and Drug Administration. Test Performed by: [facility] [place] [address] Glass Embosser: Chasity Hernandez Ph.D.; CLIA# [id number] Blood 03/21/2024 2:57 AM EDT 03/21/2024 11:29 AM EDT Narrative Resulting Agency Comment Spec In Lab Horace Hancock MD LAB SEND OUT ORDERAB LES Performing Organization Address City/[facility]/ZIP Co de Phone Number [facility] [place] [address] * Iron and TIBC (03/20/2024 10:38 AM EDT) Iron 57 30 - 150 mcg/dL [facility] TIBC 278 250 - 450 mcg/dL [facility] Iron Saturation 21 20 - 50 % [facility] Blood Venous Draw / Unknown 03/20/2024 10:38 AM EDT 03/20/2024 10:52 AM EDT Narrative Resulting Agency Comment Spec In Lab Horace Hancock MD CHEMISTRY ORDERABLES [facility] [place] [address] * (ABNORMAL) Troponin (03/19/2024 11:01 PM EDT) Only the most recent of5 resultswithin the time period is included. Troponin-T, High Sensitivity 2,406(H) <=14 ng/L [facility] Comment: [...] troponin value can be found in the [facility] Test Catalog Troponin - [facility] Test Catalog Reference: Fourth [place] Definition of Myocardial Infarction. Journal of the [place] College [employer] 2018;72:1670-4748 Blood 03/19/2024 11:0 1 PM EDT 03/19/2024 11:05 PM EDT Narrative Resulting Agency Comment Spec In Lab Franky Mead MD CHEMISTRY ORDERABLE S [facility] [place] [address] * ECHO COMPLETE W CONTRAST (03/19/2024 10:53 AM EDT) Anatomical Region Laterality Modality Cardiac Other 03/19/2024 9:03 AM EDT Narrative 03/19/2024 12:12 PM EDT [address] [place] [id number] ? Echocardiogram Report Name: AIMEE ROA Chuy ?Study Date: 03/19/2024 09:03 AMBP: 129/68 mmHg ? Patient Location: 4A : 1965 ? Height: 158 cm ? Account: [id number] Age: 59 yrs ? Weight: 57 kg Gender: Female ?BSA: 1.6 m2 Ordering Physician: GANESH NGUYEN Referring Physician: GANESH NGUYEN Performed By: PEREZ Carlos Reason For Study: STEMI involving LAD Exam Location: [facility]. Interpretation Summary Normal left ventricle size with mildly reduced LV function. LV ejection fraction 49%. LAD territory wall motion abnormality, predominantly involving the LV apex. No LV thrombus visualized with echo contrast. Normal right ventricle. No significant valvular abnormalities. Compared with prior echo dated 08/28/23, LV function has now decreased and new wall motion abnormalities. Procedure Complete-[id number]. Image enhancement Definity was used for left [...] Note Destin Ambrosio MD - 03/19/2024 [address] [place] [address] Echocardiogram Report Name: ISA RO Study Date: 409:03 AMBP: 129/68 mmHg Patient Location: : 1965 Height: 158 cm Account: [id number] Age: 59 yrs Weight: 57 kg Gender: Female BSA: 1.6 m2 Ordering Physician: GANESH NGUYEN Referring Physician: GANESH NGUYEN Performed By: PEREZ Carlos Reason For Study: STEMI involving LAD Exam Location: [facility]. Interpretation Summary Normal left ventricle size with mildly reduced LV function. LV ejectionfraction 49%. LAD territory wall motion abnormality, predominantly involving the LVapex. No LV thrombus visualized with echo contrast. Normal right ventricle. No significant valvular abnormalities. Compared with prior echo dated 08/28/23, LV function has now decreased andnew wall motion abnormalities. Procedure Complete-[id number]. Image enhancement Definity was used for left [...] max walt: 100.0 cm/sec MV A max watl: 67.1 cm/sec MV E/A: 1.5 MV dec [...] View (03/19/2024 8:37 AM EDT) WORKSTATION ID [id number] RAD Anatomical Region Laterality Modality Chest N/A [...] who have questions please contact the health wound care coordinator that requested your imaging first. ? Electronically signed by: Isa Whitley MD, [facility] ??([phone]), at 03/19/2024 10:09 AM Narrative 03/19/2024 10:09 [...] patients who have questions please contactthe health wound care coordinator that requested your imaging first. Electronically signed by: Isa Whitley MD, [facility]([phone]), at 03/19/2024 10:09 AM Delores Jett MD IMG DX ORDERABLES * Hemoglobin A1c (03/19/2024 5:25 AM EDT) Hemoglobin A1c 5.6 4.3 - 5.6 % [facility] Comment: Reference Range: 4.3 - [...] Mellitus, Diabetes Care 2013; 36: Suppl. 1, S67-83 Estimated Average Glucose 114 mg/dL [facility] Blood Venous Draw / Unknown 03/19/2024 5:25 AM EDT 03/19/2024 3:52 PM EDT Narrative Resulting Agency Comment Spec In Lab Horace Hancock MD CHEMISTRY ORDERABLES [facility] [place] [address] * Lipid Panel (Reflex Direct LDL) (03/19/2024 5:25 AM EDT) Cholesterol, Total 324 mg/dL [facility] Comment: Desirable: ? <200 mg/dL Borderline High: 200-239 mg/dL Higher: ?>ce=459 mg/dL Triglyceride 200 mg/dL [facility] Comment: Normal: ?<150 mg/dL Borderline High: 150-199 mg/dL High: ?200-499 mg/dL Very High: ? >tm=119 mg/dL HDL Cholesterol 68 mg/dL [facility] Comment: Females: High Risk: <50 mg/dL Males: High Risk: <40 mg/dL LDL Cholesterol 216 mg/dL [facility] Comment: Desirable: ? <100 mg/dL Above Desirable: 100-129 mg/dL Borderline High: 130-159 mg/dL High: ?160-189 mg/dL Very High: ? >br=933 mg/dL Lipid Interpretation See Note [facility] Comment: It is important to [...] ACC/AHA Guidelines (most recently Jw et al. [facility] 06/17/22): For individuals with atherosclerotic cardiovascular disease (ASCVD)or LDL >br=470 mg/dL, use a high-intensity statin (40-80 mg [...] Lab Ganesh Nguyen MD CHEMISTRY ORDERAB LES [facility] [place] [address] * (ABNORMAL) Comprehensive metabolic panel (non-fasting) (03/19/2024 5:25 AM EDT) Pathologist [facility] Glucose 181 65 - 199 mg/dL [facility] Comment:Diabetes: >=200 mg/d L plus symptoms Blood Urea Nitrogen 14 8 - 18 mg/dL [facility] Creatinine 0.91 0.70 - 1.20 mg/dL [facility] Sodium 137 135 - 145 mmol/L [facility] Potassium 4.2 3.5 - 5.0 mmol/L [facility] Comment: Please note: ??Patients with WBC >100,000 may have falsely elevated Potassium levels. ??For accurate Potassium quantification in these patients send serum separator tube (gold top) for subsequent determinations. ??Contact the Clinical Chemistry Laboratory if there are any questions. Chloride 100 98 - 107 mmol/L [facility] Carbon Dioxide 22 22 - 31 mmol/L [facility] Anion Gap 15 5 - 15 mmol/L [facility] Calcium 8.7 8.5 - 10.5 mg/dL [facility] Protein, Total 7.2 6.1 - 8.0 g/dL [facility] Albumin 4.5 3.2 - 5.2 g/dL [facility] Aspartate Aminotransferase 95(H) 0 - 30 unit/L [facility] Comment:result rechecked-bz Alanine Aminotransferase 31(H) 0 - 30 unit/L [facility] Alkaline Phosphatase 70 35 - 105 unit/L [facility] Bilirubin, Total 0.5 0.2 - 1.3 mg/dL [facility] Est Glomerular Filtration Rate 72 >=60 mL/min/1. 73 m?? [facility] Comment: This patient's estimated GFR [...] Lab Ganesh Nguyen MD CHEMISTRY ORDERAB LES [facility] [place] [address] * Phosphorus (03/19/2024 2:20 AM EDT) Phosphorus 3.8 2.5 - 4.5 mg/dL [facility] Blood 03/19/2024 2:20 AM EDT 03/19/2024 2:59 AM EDT Narrative Resulting Agency Comment Spec In Lab Ganesh Nguyen MD CHEMISTRY ORDERAB LES Performing Organization Address City/[facility] Co de Phone Number [facility] [place] [address] * (ABNORMAL) pro-Brain Natriuretic Peptide (03/19/2024 2:20 AM EDT) Pathologist [facility] NT-proBNP 529(H) <=124 pg/mL [facility] Blood 03/19/2024 2:20 AM EDT 03/19/2024 2:59 AM EDT Narrative Resulting Agency Comment Spec In Lab Ganesh Nguyen MD CHEMISTRY ORDERAB LES Performing Organization Address [facility] Co de Phone Number [facility] [place] [address] * (ABNORMAL) Point of Care Blood Gas Historical (03/19/2024 1:41 AM EDT) Only the most recent of2 resultswithin the time period is included. pH, POC 7.28(Criti lewis) 7.35 - 7.45 [facility] pCO2, POC 40 35 - 45 mmHg [facility] pO2, POC 84(L) 85 - 104 mmHg [facility] Base Excess, POC -8.0(L) -3.0 - 3.0 mmol/L [facility] Bicarbonate, POC 18.6(L) 20.0 - 26.0 mmol/L [facility] Carbon Dioxide, POC 20(L) 22 - 31 mmol/L [facility] Sodium, POC 134(L) 135 - 145 mmol/L [facility] POC Potassium 3.4(L) 3.5 - 5.0 mmol/L [facility] Ionized Calcium, POC 1.09(L) 1.15 - 1.33 mmol/L [facility] POC Hematocrit 38.0 34.0 - 45.0 % [facility] POC Calc Hgb 12.9 11.2 - 15.7 g/dL [facility] Blood 03/19/2024 1:41 AM EDT 03/19/2024 1:41 AM EDT Kathryn Walker MD CHEMISTRY ORDERABL ES Performing Organization Address [facility]/State/[facility] Co de Phone Number [facility] [place] [address] * CARDIAC CATHETERIZATION (03/19/2024 1:36 AM EDT) Anatomical Region Laterality Modality Other Narrative 03/19/2024 7:19 AM EDT ?[facility] ? Cardiac Catheterization/Intervention Report ? Patient Name: Isa Ro A. ? Procedure Date: 03/19/2024 ? A #: [id number] ? Primary Physician: Kirill, Ramo S ? Case #: [id number] ? File Name: [id number] ? Catheterization Order Number: [id number] ? [facility] ? Final Report [place], [place] ? Patient Name: ? Isa A. Warnaar ? ID#: ?[id number] ? : ?1965 ? Procedure Date: ? March 19, 2024 ? Case #: ? [id number] ? Room: ? 6 ? Case Physician: ? Ramo Roy M.D. ? Start: ?00:55 ?Fellow: ? John Munroe M.D. ? Admission: ??03/18/2024 ? Discharge: ??03/22/2024 ? Referring Physician: ??Facundo WILEY M.D. ? [...] artery disease. The patient's smoking status ?is Former. She has hypercholesterolemia. The patient has a prior history ?of coronary artery disease. She is status post an acute ST elevation ?myocardial infarction as well as a remote myocardial infarction. The ?patient had a remote coronary intervention procedure. Prior to the ?initiation of this procedure, the patient was designated as ASA Class IV. ?The CSHA clinical frailty scale is 3: Managing Well. ? Diagnostic Tests: ?Prior Coronary Angiography: ? Prior coronary angiography was performed on 12/15/2014 and showed ? non-obstructive CAD. ?Electrocardiography: ? EKG was assessed by ECG. EKG was Abnormal. EKG showed ST Deviation ? >= 0.5 mm and other abnormality. ?Medications Prior to Procedure: ? Aspirin. ? Indications for Diagnostic Cath: ?The priority of the diagnostic procedure was Emergent. The indication for ?the cathode washer visit is ACS less than or equal [...] ?3.5 guiding catheter and a 3.5 Fr [place] 20 Mhz using auto 1 ?mm/sec pullback. [...] ?STEMI. STEMI onset was 03/18/2024 at 9:00 PM, estimated. Thrombolytics ?were administered on 03/18/2024 at 10:11 PM. ? Intervention Summary: ?Left Anterior Descending [...] A premounted 3.00 x 08 mm Alberto [place] (JAHAIRA) was deployed ? with a maximum inflation pressure of 12 atmospheres. ? Another stent insertion was accomplished through a 6 Fr. EBU ? 3.5 guide. ??A premounted 2.00 x 08 mm [place] (JAHAIRA) was ? deployed. ? The final [...] dose administered prior to arrival in the cathode washer. ?Recommended anti-platelet/anti-thrombotic regimen: ?Start aspirin 81 mg daily now and continue for indefinitely. ?Start clopidogrel 75 mg daily now and continue for 12 months then stop. ?These recommendations are made at the time of the intervention. Patient ?and provider preferences or a changing clinical situation may require ?modification of this regimen. Consult [facility] [place]ventional [facility]iology for ?questions. ?The [...] against any medical treatment. Consult ?http://tools.acc.org/DAPTriskapp/#!/content/calculator/ or [facility] ?Interventional Cardiology for questions ? [...] Finalized: 03/19/2024 ??01:56 ? Report Last Ammended: 05/04/2024 ??08:53 ? Procedure Note Ramo Roy MD - 05/04/2024 [facility] Cardiac Catheterization/Intervention Report Patient Name: Isa Ro Procedure Date: 03/19/2024 A #: [id number] Primary Physician: Ramo oRy Case #: [id number] File Name: [id number] Catheterization Order Number: [id number] [facility] FinalReport [place], [place] Patient Name: Isa Leungannmarie ID#:[id number] :1965 Procedure Date: March 19, 2024 Case #: [id number] Room: 6 Case Physician: Ramo Roy M.D. Start: 00:55 Fellow: John Munroe M.D. Admission:03/18/2024 Discharge:03/22/2024 Referring Physician: Facundo WILEY M.D. Procedures: * Coronary Angiography * Left Heart Catheterization * Coronary Ultrasound * Coronary Stent Insertion * Arterial Blood Gases Pre Case Status: These procedures were performed on an emergent basis. History Isa Ro is a 59 year old woman. She has hypertension and a family history of coronary artery disease. The patient's smokingstatus is Former. She has hypercholesterolemia. The patient has a priorhistory of coronary artery disease. She is status post an acute ST elevation myocardial infarction as well as a remote myocardial infarction. The patient had a remote coronary intervention procedure. Prior to the initiation of this procedure, the patient was designated as ASAClass IV. The [facility] clinical frailty scale is 3: Managing Well. Diagnostic Tests: Prior Coronary Angiography: Prior coronary angiography was performed on 12/15/2014 andshowed non-obstructive CAD. Electrocardiography: EKG was assessed by ECG. EKG was Abnormal. EKG showed STDeviation >= 0.5 mm and other abnormality. Medications Prior to Procedure: Aspirin. Indications for Diagnostic Cath: The priority of the diagnostic procedure was Emergent. Theindication for the cathode washer visit is ACS less than or equal [...] 3.5 guiding catheter and a 3.5 Fr [place] 20 Mhz usingauto 1 mm/sec pullback. Imaging [...] The priority for the procedure was Emergent.The [facility] indication for the procedure was STEMI-Immediate PCI for Acute STEMI. STEMI onset was 03/18/2024 at 9:00 PM, estimated.Thrombolytics were administered on 03/18/2024 at 10:11 PM. Intervention Summary: Left Anterior Descending Artery [...] The lesion was predilated with a 2.50mm [id number] MM balloon with a maximum inflation pressure of 14atmospheres. A premounted 3.00 x 08 mm Alberto [place] (JAHAIRA) wasdeployed with a maximum inflation pressure of 12 atmospheres. Another stent insertion was accomplished through a 6 Fr.EBU 3.5 guide. A premounted 2.00 x 08 mm Alberto [place] (JAHAIRA)was deployed. The final outcome was defined [...] dose administered prior to arrival in the cathode washer. Recommended anti-platelet/anti-thrombotic regimen: Start aspirin 81 mg daily now and continue for indefinitely. Start clopidogrel 75 mg daily now and continue for 12 months thenstop. These recommendations are made at the time of the intervention.Patient and provider preferences or a changing clinical situation mayrequire modification of this regimen. Consult [facility] Interventional Cardiologyfor questions. The 1 [...] or against any medical treatment.Consult http://tools.acc.org/DAPTriskapp/#!/content/calculator/ or [facility] Interventional Cardiology for questions Conclusions: [...] Report Finalized: 03/19/2024 01:56 Report Last Ammended: 05/04/2024 08:53 Ramo Roy MD CARDIAC CATH ORDERAB LES * Scan Doc: ECG (03/18/2024 10:18 PM EDT) Only the most recent of2 resultswithin the time period is included. Historical Provider MEDIA MGR SCAN EX T ORDR/RSLT from Last 3 Months Advance Directives Documents on File Type Date Recorded Patient Night Filler Expl anation Advance Directives and Livin g Will 03/21/2024 4:09 PM * Attempt Cardiopulmonary Resuscitation - Inpatient (Latest Code Status on File) Date Activated Date Inactivated Comments 04/21/2024 9:46 PM 04/22/2024 3:58 PM Question Answer Comments Code Status decision made by: Patient Content of discussion: Pateint wishes to be full code. * Attempt Cardiopulmonary Resuscitation - Inpatient Date Activated Date Inactivated Comments 03/19/2024 1:09 AM 03/22/2024 2:16 PM Question Answer Comments Code Status decision made by: Patient Content of discussion: discussed code st atus and need for CPR/shocks/intubation in periprocedural period Care Teams Dub Room Engineer Relationship Specialty Start Date End Date Rosalba Archibald APRN [address] [place] [address] PCP - General Family Medicine 04/21/24
--- OUTSIDE RECORDS SUMMARY | 2024-05-19 08:31 | XMS_ITS | Encounter Summary ---
Author Organization [facility] [place] [address] Care Team Providers Care Security Field Supervisor Name Role Phone Rosalba Archibald APRN Primary Care Provider [phone] Encounter Details Date Type Department Care Team (Late st Contact Info) Description 04/21/2024 Telephone Cardiology at [address] [phone] Stacia Smith, RN Social History Tobacco Use Types Packs/Day Years Used Date Smoking Tobacco: Former Smokeless Tobacco: Never Alcohol Use Standard Drinks/Week Comments Yes 14 (1 standard drink = 0.6 oz pu re alcohol) [facility] Utilities Answer Date Recorded In [...] in the past 12 m [facility], were you homeless or living in a usp (including now)? No 04/22/2024 [facility] Inpatient Questions Answer Date Recorded Does Anyone [...] encounter Miscellaneous Notes * Telephone Encounter - Stacia Smith RN - 04/21/2024 12:52 PM EDT Patient called and 2 messages were left on different team lines. Reference discharge summary on 03/22/24 (STEMI,cath > stent to mid Lad, new meds). Patient was called and after chart review was asked if she is admitted to [facility]- she says she is andis calling from there with multiple questions and concerns about a cardiac cath that is planned. Reference notes from yesterday on planned transfer. Patient does have a F/U appt.scheduled 05/09/24 buthad not yet established care in the clinic. Patient was advised that while her questions and concerns over another cath,meds, EKG results, needfor cath,being out of work and others are valid she needs to discuss this with the providers managing her care in the hospital - they cannot be answered by a nurse. A consult was done regarding the need for a cath and patient was asking to speak to a manager regional sales. She says there isn't one there at [facility] which is part of her concern. Patient finally agreed to discuss her concerns/questions with the providers at [facility] but that she would have a brief opportunity to discuss the cath when she is at [facility] ( prep). Stacia Pinon RNfuller brush man [facility] General Team-Green documented in this encounter Plan of Treatment Upcoming Encounters Date Type Department Care Team (Late st Contact Info) Description 06/03/2024 4:00 PM EDT Office Visit Cardiology at [address] [phone] [facility] [place] [address] documented as of this encounter Visit Diagnoses Not on filedocumented in this encounter Care Teams Security Field Supervisor Relationship Specialty Start Date End Date Rosalba Archibald APRN [address] [place] [address] PCP - General Family Medicine 04/21/24 documented as of this encounter
--- OUTSIDE RECORDS SUMMARY | 2024-05-19 08:31 | XMS_ITS | Encounter Summary ---
Author Organization [facility] Address [address] [place] [address] Care Team Providers Care Pressure Tank Operator Name Role Phone Unavailable Primary Care Provider Unavailabl e Encounter Details Date Type Department Care Team (Late st Contact Info) Description 12/14/2006 Results Only [facility] [address] [place] [address] Jake Sabillon FNP [address] [place], [place] [address] Social History Tobacco Use Types Packs/Day Years [...] ? EZEQUIEL THOMAS ? Accession #: ? [id number] : ? 1965 (Age: 41) ??F ?Collect Date: ? 12/14/2006 Location: ? [facility] ? Receive Date: ? 12/16/2006 Provider: ?JAKE SABILLON MORTGAGE BROKER Copy to: ? Specimen/Source: ?ThinPrep Pap Test, Cervix/Endocervix, processed on [employer] ThinPrep Imaging System, with manual evaluation Last [...] Jake GARCÍAP PATHOLOGY ORDERABLES URVASHI SOOD [address] [place] [address] documented in this encounter Visit Diagnoses Not on filedocumented in this encounter
--- OUTSIDE RECORDS SUMMARY | 2024-05-19 08:31 | XMS_ITS | Encounter Summary ---
Author Organization [facility] [place] [address] Care Team Providers Care Etcher Apprentice Photoengraving Name Role Phone None Primary Care Provider Unavailabl e Encounter Details Date Type Department Care Team (Late st Contact Info) Description 04/20/2024 Telephone Cardiology [facility] [place] [phone] Shamar Lehman MD [facility] [place] [address] Social History Tobacco Use Types Packs/Day Years Used Date Smoking Tobacco: Former Smokeless Tobacco: Never Alcohol Use Standard Drinks/Week Comments Yes 14 (1 standard drink = 0.6 oz pu re alcohol) [facility] Utilities Answer Date Recorded In the [...] any time in the past 12 m [facility], were you homeless or living in a retirement (including now)? No 03/21/2024 [facility] Inpatient [...] Date: 04/20/24 Referring Provider: Anastasiia Patient Location: [facility] HPI: 59 yoF w/ PMHx of CAD [...] in the patient condition. Shamar Lehman MD Hydrogen Treater documented in this encounter Plan of Treatment Upcoming Encounters Date Type Department Care Team (Late st Contact Info) Description 06/03/2024 4:00 PM EDT Office Visit Cardiology at [address] [phone] Kaylee Sutherland MD [facility] [place] [address] documented as of this encounter Visit Diagnoses Not on filedocumented in this encounter Care Teams Etcher Apprentice Photoengraving Relationship Specialty Start Date End Date None None PCP - General 03/19/24 04/20/24 documented as of this encounter
--- OUTSIDE RECORDS SUMMARY | 2024-05-19 08:32 | XMS_ITS | Encounter Summary ---
Author Organization [facility] [place] [address] Care Team Providers Care Mva Reactor Operator Name Role Phone None Primary Care Provider Unavailabl e Encounter Details Date Type Department Care Team (Late st Contact Info) Description 03/18/2024 Telephone Cardiology at [address] [address] Yusuf Herrera MD [facility] [place] [address] Social History Tobacco Use Types Packs/Day Years Used Date Smoking Tobacco: Former Smokeless Tobacco: Never [facility] Inpatient Questions Answer Date Recorded Does [...] 03/19/24 Initial Contact Time: 2209 Patient Location: [facility] Presenting Symptoms per OSH: 59 year old female, history of CAD c/b NSTEMI (see below), hypertension, hyperlipidemia, who was resting at home at 20:30 when she developed substernal chest pressure radiating to right arm which wasvery severe and reminiscent of prior AR. Associated with diaphoresis. No syncope, SOB, palpitations, [...] relief, but was still having CP. 03/30/14 [facility] Left main: Free of angiographically significant [...] mg and starting heparin gtt -Launch to [facility] feed mill lab technician for lateral wall STEMI Above recommendations/plans are based on my conversation with the referring provider. I have not personally interviewed or examined this patient. Yusuf Herrera MD Divorce Attorney documented in this encounter Plan of Treatment Upcoming Encounters Date Type Department Care Team (Late st Contact Info) Description 06/03/2024 4:00 PM EDT Office Visit Cardiology at [address] [address] Kaylee Sutherland MD [facility] [place] [address] documented as of this encounter Visit Diagnoses Not on filedocumented in this encounter Care Teams Mva Reactor Operator Relationship Specialty Start Date End Date None None PCP - General 03/19/24 04/20/24 documented as of this encounter
--- OUTSIDE RECORDS SUMMARY | 2024-05-19 08:32 | XMS_ITS | Encounter Summary ---
Author Organization [facility] [place] [address] Care Team Providers Care Imaging Technologist Name Role Phone Pretty Avery MD Primary Care Provider [phone] Reason for Visit * Reason Comments Skin Check hx of SCC Encounter Details Date Type Department Care Team (Late st Contact Info) Description 01/14/2019 1:30 PM EDT Office Visit Dermatology at [facility] [address] [place] [address] Patrizia Moralez MD [facility] [place] [address] Multiple benign nevi; Lentigines; Seborrheic keratosis; History [...] History: Left lower back, sBCC, ED&C on 31-63-84-[facility] Seborrheic keratoses Family History: Melanoma: None Father [...] - No evidence of hypertrophic scar 5. Garcai Angiomas- Scattered 0.2-0.4 cm bright red macules [...] accuracy of the documentation in this encounter. aPtrizia Moralez MD Reviewed and signed by: Patrizia Moralez MD Resident in Dermatology [facility] Patient seen and evaluated with staff snack bar cook: Lisa Candelario MD Section of Dermatology [facility] * Lisa Candelario MD - [...] 4:00 PM EDT Office Visit Cardiology at [address] [address] Kaylee Sutherland MD [facility] [place] [address] documented as of this encounter Visit Diagnoses Diagnosis Multiple benign nevi Benign neoplasm of skin, site unspecified Lentigines Other dyschromia Seborrheic keratosis Other seborrheic keratosis History of basal cell cancer Personal history of other malignant neoplasm of skin Garcia angioma Nevus, non-neoplastic Skin cancer screening Screening for malignant neoplasm of the skin Arthropod bite, initial encounter documented in this encounter Care Teams Imaging Technologist Relationship Specialty Start Date End Date Pretty Avery MD [address] [place] [address] PCP - General 08/06/10 03/18/24 documented as of this encounter
--- OUTSIDE RECORDS SUMMARY | 2024-05-19 08:32 | XMS_ITS | Encounter Summary ---
Author Organization [facility] Address [facility] [place] [address] Care Team Providers Care Smt Technician Name Role Phone Pretty Avery MD Primary Care Provider [phone] Reason for Visit * Reason Comments Basal Cell Carcinoma * Consultation (Routine) - Closed Specialty Diagnoses / Procedures Referred By Contac t Referred To Contact Dermatology Diagnoses skin lesion lower back, basel cell ca Isa Estrada MD [address] [place] [address] [facility] Dermatology [address] [place] [address] Referral ID Status Reason Start Date Expiration Date V isits Requested Visits Authorized [id number] Closed Evaluate and [facility] 12/17/2015 12/16/2016 1 1 Encounter Details Date Type Department Care Team (Late st Contact Info) Description 12/19/2015 2:30 PM EDT Office Visit Dermatology at [facility] [address] [place] [address] Lisa Candelario MD [facility] [address] [place] [address] Superficial basal cell carcinoma; Seborrheic [...] or concerns, please call the office at [phone]. If it is after 5PM, or a holiday or weekend, please call [phone] and ask for the [employer] on-call. documented in this encounter Progress Notes [...] encounter. Lisa Candelario MD Section of Dermatology [facility] documented in this encounter Plan of Treatment Upcoming Encounters Date Type Department Care Team (Late st Contact Info) Description 06/03/2024 4:00 PM EDT Office Visit Cardiology at [address] [address] Kaylee Sutherland MD [facility] [place] [address] documented as of this encounter Visit Diagnoses Diagnosis Superficial basal cell carcinoma Basal cell carcinoma of skin, site unspecified Seborrheic keratosis Other seborrheic keratosis documented in this encounter Care Teams Smt Technician Relationship Specialty Start Date End Date Pretty Avery MD [address] [place] [address] PCP - General 08/06/10 03/18/24 documented as of this encounter
--- OUTSIDE RECORDS SUMMARY | 2024-05-19 08:32 | XMS_ITS | Encounter Summary ---
Author Organization [place] [address] Care Team Providers Care Swat Team Member Name Role Phone Pretty Avery MD Primary Care Provider [phone] Encounter Details Date Type Department Care Team [...] 4:00 PM EDT Office Visit Cardiology at [address] [address] Kaylee Sutherland MD [facility] [place] [address] documented as of this encounter Visit Diagnoses Not on filedocumented in this encounter Care Teams Swat Team Member Relationship Specialty Start Date End Date Pretty Avery MD [address] [place] [address] PCP - General 08/06/10 03/18/24 documented as of this encounter
--- OUTSIDE RECORDS SUMMARY | 2024-05-19 08:32 | XMS_ITS | Encounter Summary ---
Author Organization [facility] [place] [address] Care Team Providers Care Cattle And Wheat Farmer Name Role Phone None Primary Care Provider Unavailabl e Reason for Visit * Auth/Cert (Routine) Specialty Diagnoses / Procedures Referred By Contac t Referred To Contact Diagnoses Acute ST elevation myocardial infarction (STEMI) due to occlusion of left anterior descending (LAD) coronary artery stemi Procedures EMERGENCY IPI Destin Ambrosio MD [facility] [place] [address] [facility] Referral ID Status Reason Start Date Expiration Date Visits Re quested Visits Authorized [id number] 1 1 Encounter Details Date Type Department Care Team (Late st Contact Info) Description 03/19/2024 1:05 AM EDT - 03/19/2024 2:06 AM [place] [address] Ramo Roy MD [facility] [place] [address] CARDIAC CATHETERIZATION Social History Tobacco Use Types Packs/Day Years Used Date Smoking Tobacco: Former Smokeless Tobacco: Never Alcohol Use Standard Drinks/Week Comments Yes 14 (1 standard drink = 0.6 oz pu re alcohol) [facility] Inpatient Questions Answer Date Recorded Does Anyone [...] Isa Ro Patient Age: 59 y.o. Language: Sri Lankan Race: White Ethnicity: Not nor Admit date: [...] and hypercapnic respiratory failure in the laborer vineyard, potentially also due to sedation. Patient briefly [...] given mildly reduced LVEF [ ] f/u [facility] cardiology scheduled. [facility] cardiology referral sent Inpatient Provider Contact Information: Kathryn Walker MD [phone] For questions regarding this document or issues relating to this hospitalization on the Medical Service, please contact your inpatient physician through the [facility] Steam Generating Powerplant Mechanic . Issues afterhours and on weekends will [...] 03/19/2024 8:37 AM) Result Value WORKSTATION ID [id number] Narrative EXAMINATION: XR CHEST ONE VIEW CLINICAL [...] who have questions please contact the health personal carer that requested your imaging first. Cardiac Catheterization (Exam End: 03/19/2024 1:36 AM) Narrative [facility] Cardiac Catheterization/Intervention Report Patient Name: Isa Ro Procedure Date: 03/19/2024 A #: [id number] Primary Physician: Ramo Roy Case #: [id number] File Name: [id number] Catheterization Order Number: [id number] [facility] Antique Finisher [facility] Final Report [place], [place] Patient Name: Isa Ro ID#: [id number] : 1965 Procedure Date: March 19, 2024 [...] was designated as ASA Class IV. The [facility] clinical frailty scale is 3: Managing Well. Diagnostic Tests: Prior Coronary Angiography: Prior coronary angiography was performed on 12/15/2014. Electrocardiography: EKG was assessed by ECG. EKG was Abnormal. EKG showed ST Deviation >= 0.5 mm and other abnormality. Medications Prior to Procedure: Aspirin. Indications for Diagnostic Cath: The priority of the diagnostic procedure was Emergent. The indication for the laborer vineyard visit is ACS less than or equal [...] 3.5 guiding catheter and a 3.5 Fr [place] Eye Cheesh-Na 20 Mhz using auto 1 mm/sec pullback. [...] for the procedure was Emergent. The [facility] indication for the procedure was STEMI-Immediate [...] atmospheres. A premounted 3.00 x 08 mm [place] Tanacross (JAHAIRA) was deployed with a maximum inflation pressure of 12 atmospheres. Another stent insertion was accomplished through a 6 Fr. EBU 3.5 guide. A premounted 2.00 x 08 mm Alberto Tanacross (JAHAIRA) was deployed. The final outcome was [...] administered prior to arrival in the laborer vineyard. Recommended anti-platelet/anti-thrombotic regimen: Start aspirin 81 mg daily now and continue for indefinitely. Start clopidogrel 75 mg daily now and continue for 12 months then stop. These recommendations are made at the time of the intervention. Patient and provider preferences or a changing clinical situation may require modification of this regimen. Consult [facility] Interventional Cardiology for questions. The 1 year [...] against any medical treatment. Consult http://tools.acc.org/DAPTriskapp/#!/content/calculator/ or [facility] Interventional Cardiology for questions Conclusions: [...] decreased and new wall motion abnormalities. Procedure Complete-09645. Image enhancement Definity was used for left [...] prior to speaking with Dr. Herrera, on-call cloth weigher at [facility]. She was subsequently transferred directly to the [facility] laborer vineyard where coronary angiography revealed a 100% occluded [...] away. Stay on the phone. The emergency thiokol operator will tell you what to do. [...] of 8AM-5PM please call the Cardiology Clinic [phone] to speak with a nurse. All other hours please call the Hospital Steam Generating Powerplant Mechanic [phone] and ask to speak to the cardiovascular hospitalist on-call. Return to work: One week Follow up Appointments: Doctor Where Phone # Date Time PCP MELECIO Polanco [address] [place] [address] 238 04/04/24 7:55 AM Concrete Mixer Herlinda Weaver PA-C [facility] Cardiology 4A Clinic [phone] 05/09/24 10:40 AM (pleasearrive by 10:20 AM) *A referral has also been placed to [facility] cardiology, though you will need to follow-up with them regarding scheduling appointments at [phone] General Instructions None Future Appointments and Orders Future Appointments and Orders Future Appointments Provider Department Dept Phone 05/09/2024 10:40 AM Herlinda Weaver PA Cardiology at [facility] Arrive at: Hotel Breakfast Attendant Area [phone] Future Orders Complete By Expires Referral to Cardiac Rehab [[id number] Custom] As directed Process Instructions: If no progress note charted, please enter Clinical details in comments. Scheduling Instructions: Questions: My question or request is: s/p STEMI- cardiac rehab at [facility] Referral to Cardiology [REF12 Custom] As directed Process Instructions: If no progress note charted, please enter Clinical details in comments. Scheduling Instructions: Questions: My question or request is: s/p STEMI Discharge References/Attachments None Greater than 30 minutes was spent on this discharge including documentation, kizo-[id number] time withthe patient, patient education, field recorder, coordination with pharmacy and other patient [...] away. Stay on the phone. The emergency thiokol operator will tell you what to do. [...] cardiac rehab has also been placed to [facility]. Call your doctor if: Chest pain, dyspnea, pain or swelling in legs occurs, or for weight gain of 2 pounds overnight or 5pounds in 5 days. If you have non-emergent questions, prior to your follow-up visit call: Thursday-Thursday between the hours of 8AM-5PM please call the Cardiology Clinic [phone] to speak with a nurse. All other hours please call the Hospital Steam Generating Powerplant Mechanic [phone] and ask to speak to the cardiovascular hospitalist on-call. Return to work: One week Follow up Appointments: Doctor Where Phone # Date Time PCP MELECIO Polanco [address] [place] [address] 04/04/24 7:55 AM Concrete Mixer Herlinda Weaver PA-C [facility] Cardiology 4A Clinic [phone] 05/09/24 10:40 AM (pleasearrive by 10:20 AM) *A referral has also been placed to [facility] cardiology, though you will need to follow-up with them regarding scheduling appointments at [phone] documented in this encounter Medications at Time [...] agreed to participate in cardiac rehab at [facility] following discharge Review of Systems: Review [...] have resulted in hypoxemia in the laborer vineyard. She was also a bit hypercapnic which [...] pt re: Losartan/GDMT consideration -Cardiac Rehab at [facility] following discharge -Telemonitoring x72 hours -Plan for discharge tomorrow -Cardiology appointment scheduled 05/09/2024 at 10:40 AM t [facility] #Significant HLD -LDL 324 -Atorvastatin 80mg daily [...] have resulted in hypoxemia in the laborer vineyard. 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 I [...] Mcbride MD - 03/19/2024 2:50 AM EDT [facility] TeleICU Initial Assessment Note I established audio/visual [...] => BiPAP started Following procedure, transferred to [facility] - able to be weaned to [facility] [...] to which patient presented: [facility] to which patient presented= [facility]: ED via EMS Date and Time of [...] Not contraindicated Plan STEMI Alert called: Yes Antique Finisher Activated by: Production Metal Sprayer Initial Disposition: Admit Antique Finisher documented in this encounter H&P Notes * Ganesh Nguyen MD - 03/19/2024 1:11 AM EDT CARDIOLOGY ADMISSION H&P Patient Name: Isa Ro Service: Cardiology Team Responsible Attending: Destin Ambrosio MD PCP: Pretty vAery MD (Inactive) Chief Complaint: Chest Pain Active [...] prior to speaking with Dr. Herrera, on-call cloth weigher at [facility]. She was subsequently transferred directly to the [facility] laborer vineyard where coronary angiography revealed a 100% occluded [...] have resulted in hypoxemia in the laborer vineyard. She was also a bit hypercapnic which [...] Cardiopulmonary Resuscitation - Inpatient Ganesh Nguyen MD Production Metal Sprayer [id number] documented in this encounter Miscellaneous Notes [...] Care: Contact information for follow-up Cardiac Rehab, [facility] [address] [facility] [address] Cardiology, [facility] [address] [facility] [address] Transportation: family or friend will provide Functional [...] Implemented as Appropriate) * Care Management - aRjwinder Moon - 03/21/2024 4:02 PM EDT Patient completed a [place] advance directive. Patient identified her sister Stacia [...] ; Prescription Coverage: Yes Preferred Pharmacy: [facility] [address] [facility] [address] [place], [place] [address]way [address] [facility] [address] [id number] - [place], [place] - [address] [place] [address] [facility] [address] [facility] [address] [facility] [address] - [place], [place] - [address] [facility] [address] [place] [address] Advance Care Planning: Attempt Cardiopulmonary Resuscitation - [...] DME: none [address] [facility] [address] Social & Family Supports: All names listed below confirmed with patient as current and correct Extended Emergency Contact Information Primary Emergency Contact: [facility] [place] Mobile [...] to for AD discussion today. Registered Nurse Commercial Loan Collection Officer / Commercial Lines Assistant will continue to follow patient???s progress [...] in an outpatient cardiac rehabilitation program at [facility] was discussed. Patient agrees to a [...] EDT Brief Operative Note Patient Name: Isa oR : [id number] MR#: [id number] Case Date: 03/19/2024 Surgeon: Surgeons and Role: [...] 4:00 PM EDT Office Visit Cardiology at [address] [address] Kaylee Sutherland MD [facility] [place] [address] Scheduled Referrals Name Type Priority Associated Diagnoses [...] 5:06 AM EDT DIFFERENTIAL, AUTOMATED Routine 03/22/20 24 5:06 AM EDT CBC (WITH DIFF) Routine [...] Absolute 8.34(H) 1.70 - 6.10 x10(3)/mc L [facility] Lymph % 17.4 % [facility] Lymphocytes Abs 2.0 0.9 - 3.2 x10(3)/mc L [facility] Monocyte % 8.2 % [facility] Monocyte Abs 1.0(H) 0.3 - 0.9 x10(3)/mc L [facility] Eos % 2.2 % [facility] Eosinophils Abs 0.3 0.0 - 0.4 x10(3)/mc L [facility] Basophil % 0.3 % [facility] Baso Absolute 0.0 0.0 - 0.1 x10(3)/mc L [facility] Immature [...] Absolute 0.03 0.00 - 0.04 x10(3)/mc L [facility] Blood 03/22/2024 5:06 AM EDT 03/22/2024 5:12 AM EDT Narrative Resulting Agency Comment Spec In Lab Horace Hancock MD HEMATOLOGY ORDERABLE S [facility] [place] [address] * (ABNORMAL) Hemogram (03/22/2024 5:06 AM EDT) White Blood Cell 11.6(H) 4.0 - 9.5 x10(3)/mc L [facility] Red [...] Platelet 232 145 - 357 x10(3)/mc L [facility] RDW Standard Deviation 42.2 37.0 - 46.0 fL [facility] RDW coefficient of variation 13.5 11.5 - 14.1 % [facility] Mean Platelet Volume 9.7 7.6 - 12.9 fL [facility] NRBC% auto 0.0 % [facility] NRBC Absolute 0.000 0.000 - 0.000 x10(3)/mc L [facility] Blood 03/22/2024 5:06 AM EDT 03/22/2024 5:12 AM EDT Narrative Resulting Agency Comment Spec In Lab Horace Hancock MD HEMATOLOGY ORDERABLE S [facility] [place] [address] * Basic Metabolic Panel (non-fasting) (03/22/2024 5:06 AM EDT) Glucose 107 65 - 199 mg/dL [place] [...] Performing Organization Address City/[facility]/ZIP Co de Phone Number [facility] [place] [address] * Magnesium (03/22/2024 5:06 AM EDT) Pathologist [facility] Magnesium 0.90 0.69 - 1.07 mmol/L [facility] Blood 03/22/2024 5:06 AM EDT 03/22/2024 5:12 AM EDT Narrative Resulting Agency Comment Spec In Lab Destin Ambrosio MD CHEMISTRY ORDERABLES Performing Organization Address City/[facility]/ZIP Co de Phone Number [facility] [place] [address] * (ABNORMAL) Differential, Automated (03/21/2024 2:57 AM EDT) Pathologist [facility] Neutrophil % 63.0 % [facility] Neutrophil Absolute 6.70(H) 1.70 - 6.10 x10(3)/mc L [facility] Lymph % 24.9 % [facility] Lymphocytes Abs 2.6 0.9 - 3.2 x10(3)/mc L [facility] Monocyte % 8.7 % [facility] Monocyte Abs 0.9 0.3 - 0.9 x10(3)/mc L [facility] Eos % 2.8 % [facility] Eosinophils Abs 0.3 0.0 - 0.4 x10(3)/mc L [facility] Basophil % 0.3 % [facility] Baso Absolute 0.0 0.0 - 0.1 x10(3)/mc L [facility] Immature [...] Absolute 0.03 0.00 - 0.04 x10(3)/mc L [facility] Blood 03/21/2024 2:57 AM EDT 03/21/2024 3:03 AM EDT Narrative Resulting Agency Comment Spec In Lab Horace Hancock MD HEMATOLOGY ORDERABLE S [facility] [place] [address] * (ABNORMAL) Hemogram (03/21/2024 2:57 AM EDT) White Blood Cell 10.6(H) 4.0 - 9.5 x10(3)/mc L [facility] Red Blood Cell 4.54 4.00 - 5.21 x10(6)/mc L [facility] Hemoglobin 12.8 11.7 - 15.5 g/dL [facility] Hematocrit 38.2 35.7 - 45.8 % [facility] Mean Cell Volume 84.1 82.6 - 94.4 fL [facility] Mean Cell Hemoglobin 28.2 27.1 - 32.0 pg [facility] Mean Cell Hemoglobin Concentration 33.5 31.7 - 35.0 g/dL [facility] Platelet 242 145 - 357 x10(3)/mc L [facility] RDW Standard Deviation 42.4 37.0 - 46.0 fL [facility] RDW coefficient of variation 13.7 11.5 - 14.1 % [facility] Mean Platelet Volume 9.5 7.6 - 12.9 fL [facility] NRBC% auto 0.0 % [facility] NRBC Absolute 0.000 0.000 - 0.000 x10(3)/mc L [facility] Blood 03/21/2024 2:57 AM EDT 03/21/2024 3:03 AM EDT Narrative Resulting Agency Comment Spec In Lab Horace Hancock MD HEMATOLOGY ORDERABLE S [facility] [place] [address] * Basic Metabolic Panel (non-fasting) (03/21/2024 2:57 AM EDT) Glucose 98 65 - 199 mg/dL [facility] Comment:Diabetes: >=200 mg/d L plus symptoms Blood Urea Nitrogen 15 8 - 18 mg/dL [facility] [...] [facility] Carbon Dioxide 25 22 - 31 mmol/L [facility] Anion Gap 12 5 - 15 mmol/L [facility] Calcium 9.2 8.5 - 10.5 mg/dL [facility] Est Glomerular Filtration Rate 82 >=60 mL/min/1. 73 m?? [facility] [...] Performing Organization Address City/[facility]/ZIP Co de Phone Number [facility] [place] [address] * Magnesium (03/21/2024 2:57 AM EDT) Magnesium 0.91 0.69 - 1.07 mmol/L [facility] Blood 03/21/2024 2:57 AM EDT 03/21/2024 3:03 AM EDT Narrative Resulting Agency Comment Spec In Lab Destin Ambrosio MD CHEMISTRY ORDERABLES Performing Organization Address [facility] Co de Phone Number [facility] [place] [address] * Metanephrines, Fractionated Free, plasma (03/21/2024 2:57 AM EDT) Normetanephrine, Free (JANUARY) 0.47 <0.90 nmol/L [facility] Comment: Test Performed by: [facility] - [address] [address] Inbound Sales Consultant: Chasity Hernandez Ph.D.; CLIA# [id number] Metanephrine, Free (MAY) <0.20 <0.50 nmol/L [facility] Comment: ADDITIONAL INFORMATION This test was developed and its performance characteristics determined by [facility] in a manner consistent with CLIA requirements. This test has not been cleared or approved by the U.S. Food and Drug Administration. Test Performed by: [facility] [address] [place] [address] Inbound Sales Consultant: Chasity Hernandez Ph.D.; CLIA# [id number] Blood 03/21/2024 2:57 AM EDT 03/21/2024 11:29 AM EDT Narrative Resulting Agency Comment Spec In Lab Horace Hancock MD LAB SEND OUT ORDERAB LES Performing Organization Address City/[facility]/ZIP Co de Phone Number [facility] [place] [address] * Iron and TIBC (03/20/2024 10:38 AM EDT) [facility] Iron 57 30 - 150 mcg/dL [place] [...] Performing Organization Address City/[facility]/ZIP Co de Phone Number [facility] [place] [address] * (ABNORMAL) Differential, Automated (03/20/2024 10:38 AM EDT) [facility] Neutrophil % 73.1 % [facility] Neutrophil Absolute 9.60(H) 1.70 - 6.10 x10(3)/mc L [facility] Lymph % 17.3 % [facility] Lymphocytes Abs 2.3 0.9 - 3.2 x10(3)/mc L [facility] Monocyte % 7.5 % [facility] Monocyte Abs 1.0(H) 0.3 - 0.9 x10(3)/mc L [facility] Eos % 1.5 % [facility] Eosinophils Abs 0.2 0.0 - 0.4 x10(3)/[facility] Basophil % 0.3 % [facility] Baso Absolute 0.0 0.0 - 0.1 x10(3)/[facility] Immature Gran % 0.30 % [facility] Comment: Immature granulocytes(IG's)percentage and absolute count will include metamyelocytes, myelocytes, and promyelocytes. Blood smears from CBCs yielding IG's will be scanned manually for concordance. If this scan disagrees with the automated IG or if promyelocytes are noted, a manual differential will be performed. Immature Gran Absolute 0.04 0.00 - 0.04 x10(3)/[facility] Blood 03/20/2024 10:3 8 AM EDT 03/20/2024 10:47 AM EDT Narrative Resulting Agency Comment Spec In Lab Horace Hancock MD HEMATOLOGY ORDERABLE S [facility] [place] [address] * (ABNORMAL) Hemogram (03/20/2024 10:38 AM EDT) White Blood Cell 13.2(H) 4.0 - 9.5 x10(3)/[facility] Red Blood Cell 4.66 4.00 - 5.21 x10(6)/[facility] Hemoglobin 13.0 11.7 - 15.5 g/dL [facility] Hematocrit 38.7 35.7 - 45.8 % [facility] Mean Cell Volume 83.0 82.6 - 94.4 fL [facility] Mean Cell Hemoglobin 27.9 27.1 - 32.0 pg [facility] Mean Cell Hemoglobin Concentration 33.6 31.7 - 35.0 g/dL [facility] Platelet 238 145 - 357 x10(3)/[facility] RDW Standard Deviation 41.7 37.0 - 46.0 [facility] RDW coefficient of variation 13.8 11.5 - 14.1 % [facility] Mean Platelet Volume 9.8 7.6 - 12.9 [facility] NRBC% auto 0.0 % [facility] NRBC Absolute 0.000 0.000 - 0.000 x10(3)/mc L [facility] Blood 03/20/2024 10:3 8 AM EDT 03/20/2024 10:47 AM EDT Narrative Resulting Agency Comment Spec In Lab Horace Hancock MD HEMATOLOGY ORDERABLE S Performing Organization Address City/[facility]/ZIP Co de Phone Number [facility] [place] [address] * Magnesium (03/20/2024 10:38 AM EDT) Magnesium 0.88 0.69 - 1.07 mmol/L [facility] Blood 03/20/2024 10:3 8 AM EDT 03/20/2024 10:47 AM EDT Narrative Resulting Agency Comment Spec In Lab Horace Hancock MD CHEMISTRY ORDERABLES Performing Organization Address City/[facility]/ZIP Co de Phone Number [facility] [place] [address] * Basic Metabolic Panel (non-fasting) (03/20/2024 10:38 AM EDT) Glucose 108 65 - 199 mg/dL [facility] Comment:Diabetes: >=200 mg/d L plus symptoms Blood Urea Nitrogen 11 8 - 18 mg/dL [facility] Est Glomerular Filtration Rate 82 >=60 mL/min/1. 73 m?? [facility] [...] Performing Organization Address City/[facility]/ZIP Co de Phone Number [facility] [place] [address] * Magnesium (03/19/2024 11:01 PM EDT) Magnesium 0.96 0.69 - 1.07 mmol/L [facility] Blood Venous Draw / Unknown 03/19/2024 11:01 PM EDT 03/19/2024 11:06 PM EDT Narrative Resulting Agency Comment Spec In Lab Horace Hancock MD CHEMISTRY ORDERABLES [facility] [facility] [place] [address] * (ABNORMAL) Troponin (03/19/2024 11:01 PM EDT) Troponin-T, High Sensitivity 2,406(H) <=14 ng/L [place] [...] can be found in the [facility] Test Catalog Troponin - [facility] Test Catalog Reference: Fourth [place] Definition of Myocardial Infarction. Journal of the [employer] 2018;72:8514-3847 Blood 03/19/2024 11:0 1 PM EDT 03/19/2024 11:05 PM EDT Narrative Resulting Agency Comment Spec In Lab Franky Mead MD CHEMISTRY ORDERABLE S [facility] [place] [address] * (ABNORMAL) Troponin (03/19/2024 8:40 PM EDT) Troponin-T, High Sensitivity 2,586(H) <=14 ng/L [facility] [...] can be found in the [facility] Test Catalog Troponin - [facility] Test Catalog Reference: Fourth [place] Definition of Myocardial Infarction. Journal of the [employer] 2018;72:4256-5213 Blood 03/19/2024 8:40 PM EDT 03/19/2024 8:45 PM EDT Narrative Resulting Agency Comment Spec In Lab Ganesh Nguyen MD [place] [address] * EKG 12 Lead (03/19/2024 8:32 PM EDT) Ventricular rate 70 BPM MUSE SYSTEM Atrial Rate 70 BPM MUSE SYSTEM P-R Interval 158 ms MUSE SYSTEM QRS Duration 78 ms MUSE SYSTEM Q-T Interval 470 ms MUSE SYSTEM QTC Calculated (Bezet) 507 ms MUSE SYSTEM Calculated P [place] 62 degrees MUSE SYSTEM Calculated R [place] 42 degrees MUSE SYSTEM Calculated T [place] -158 degrees MUSE SYSTEM INTERPRETATION Normal sinus rhythm Poor R wave progression T wave abnormality, consider lateral ischemia Prolonged QT Abnormal ECG When compared with ECG of 19-MAR-2024 17:27, No significant change was found Confirmed by MD Hebert, Destin ([id number]) on 03/23/2024 8:10:58 AM MUSE SYSTEM 03/19/2024 8:32 PM EDT 03/23/2024 8:10 AM EDT Franky Mead MD ECG ORDERABLES Performing Organization Address [facility] de Phone Number MUSE SYSTEM * EKG 12 Lead (03/19/2024 5:27 PM EDT) Ventricular rate 70 BPM MUSE SYSTEM Atrial Rate 70 BPM MUSE SYSTEM P-R Interval 154 ms MUSE SYSTEM QRS Duration 80 ms MUSE SYSTEM Q-T Interval 460 ms MUSE SYSTEM QTC Calculated (Bezet) 496 ms MUSE SYSTEM Calculated P [place] 80 degrees MUSE SYSTEM Calculated R [place] 87 degrees MUSE SYSTEM Calculated T [place] -96 degrees MUSE SYSTEM INTERPRETATION Normal sinus rhythm T wave abnormality, consider lateral ischemia Prolonged QT Abnormal ECG When compared with ECG of 19-MAR-2024 02:23, Non-specific change in ST segment in Anterior leads T wave inversion more evident in Inferior leads T wave inversion now evident in Anterolateral leads Confirmed by MD Hebert, Destin ([id number]) on 03/23/2024 8:10:45 AM MUSE SYSTEM 03/19/2024 5:27 PM EDT 03/23/2024 8:10 AM EDT Unknown ECG ORDERABLES Performing Organization Address [facility] de Phone Number MUSE SYSTEM * (ABNORMAL) Troponin (03/19/2024 2:45 PM EDT) Pathologist [facility] Troponin-T, High Sensitivity 3,792(H) <=14 ng/L [facility] [...] can be found in the [facility] Test Catalog Troponin - [facility] Test Catalog Reference: Fourth [place] Definition of Myocardial Infarction. Journal of the [employer] 2018;72:8412-7782 Blood 03/19/2024 2:45 PM EDT 03/19/2024 2:54 PM EDT Narrative Resulting Agency Comment Spec In Lab Horace Hancock MD CHEMISTRY ORDERABLES Performing Organization Address City/State/[facility] Co de Phone Number [facility] [place] [address] * ECHO COMPLETE W CONTRAST (03/19/2024 10:53 AM EDT) Anatomical Region Laterality Modality Cardiac Other 03/19/2024 9:03 AM EDT Narrative 03/19/2024 12:12 PM EDT [address] [place] [address] ? Echocardiogram Report Name: ISA RO ?Study Date: 03/19/2024 09:03 AMBP: 129/68 mmHg ? Patient Location: 4A : 1965 ? Height: 158 cm ? Account: [id number] Age: 59 yrs ? Weight: 57 kg [...] decreased and new wall motion abnormalities. Procedure Complete-58029. Image enhancement Definity was used for left [...] Note Destin Ambrosio MD - 03/19/2024 [address] [place] [address] Echocardiogram Report Name: ISA RO Study Date: 409:03 AMBP: 129/68 mmHg Patient Location: : 1965 Height: 158 cm Account: [id number] Age: 59 yrs Weight: 57 kg Gender: [...] now decreased andnew wall motion abnormalities. Procedure Complete-39783. Image enhancement Definity was used for left [...] Chest One View (03/19/2024 8:37 AM EDT) CHOBOL[employer]S WORKSTATION ID [id number] [facility] Anatomical Region Laterality Modality Chest N/A Digital [...] who have questions please contact the health personal carer that requested your imaging first. ? Electronically signed by: Isa Whitley MD, [facility] ??([phone]), at 03/19/2024 10:09 AM Narrative 03/19/2024 10:09 [...] patients who have questions please contactthe health personal carer that requested your imaging first. Delores Jett [...] Mellitus, Diabetes Care 2013; 36: Suppl. 1, B95-08 Estimated Average Glucose 114 mg/dL [facility] Blood Venous Draw / Unknown 03/19/2024 5:25 AM EDT 03/19/2024 3:52 PM EDT Narrative Resulting Agency Comment Spec In Lab Horace Hancock MD CHEMISTRY ORDERABLES [facility] [place] [address] * (ABNORMAL) Differential, Automated (03/19/2024 5:25 AM EDT) Neutrophil % 90.0 % [facility] Neutrophil Absolute 16.73(H) 1.70 - 6.10 x10(3)/mc L [facility] Lymph % 5.2 % [facility] Lymphocytes Abs 1.0 0.9 - 3.2 x10(3)/mc L [facility] Monocyte % 4.2 % [facility] Monocyte Abs 0.8 0.3 - 0.9 x10(3)/mc L [facility] Eos % 0.0 % [facility] Eosinophils Abs 0.0 0.0 - 0.4 x10(3)/mc L [facility] Basophil % 0.2 % [facility] Baso Absolute 0.0 0.0 - 0.1 x10(3)/mc L [facility] Immature [...] Absolute 0.08(H) 0.00 - 0.04 x10(3)/ L [facility] Blood 03/19/2024 5:25 AM EDT 03/19/2024 5:34 AM EDT Narrative Resulting Agency Comment Spec In Lab Ganesh Nguyen MD HEMATOLOGY ORDERA BLES [facility] [place] [address] * (ABNORMAL) Hemogram (03/19/2024 5:25 AM EDT) White Blood Cell 18.6(H) 4.0 - 9.5 x10(3)/ L [facility] Red Blood Cell 4.92 4.00 - 5.21 x10(6)/[facility] Hemoglobin 13.7 11.7 - 15.5 g/dL [facility] Hematocrit 40.6 35.7 - 45.8 % [facility] Mean Cell Volume 82.5(L) 82.6 - 94.4 fL [facility] Mean Cell Hemoglobin 27.8 27.1 - 32.0 pg [facility] Mean Cell Hemoglobin Concentration 33.7 31.7 - 35.0 g/dL [facility] Platelet 285 145 - 357 x10(3)/[facility] RDW Standard Deviation 41.1 37.0 - 46.0 [facility] RDW coefficient of variation 13.6 11.5 - 14.1 % [facility] Mean Platelet Volume 9.5 7.6 - 12.9 [facility] NRBC% auto 0.0 % [facility] NRBC Absolute 0.000 0.000 - 0.000 x10(3)/ L [facility] Blood 03/19/2024 5:25 AM EDT 03/19/2024 5:34 AM EDT Narrative Resulting Agency Comment Spec In Lab Ganesh Nguyen MD HEMATOLOGY ORDERA SELMAS [facility] [place] [address] * Lipid Panel (Reflex Direct LDL) (03/19/2024 5:25 AM EDT) Cholesterol, Total 324 mg/dL [facility] Comment: Desirable: ? <200 mg/dL Borderline High: 200-239 mg/dL Higher: ?>py=807 mg/dL Triglyceride 200 mg/dL [facility] Comment: Normal: ?<150 mg/dL Borderline High: 150-199 mg/dL High: ?200-499 mg/dL Very High: ? >nd=117 mg/dL HDL Cholesterol 68 mg/dL [facility] Comment: Females: High Risk: <50 mg/dL Males: High Risk: <40 mg/dL LDL Cholesterol 216 mg/dL [facility] Comment: Desirable: ? <100 mg/dL Above Desirable: 100-129 mg/dL Borderline High: 130-159 mg/dL High: ?160-189 mg/dL Very High: ? >rq=396 mg/dL Lipid Interpretation See Note [place] [...] individuals with atherosclerotic cardiovascular disease (ASCVD)or LDL >op=465 mg/dL, use a high-intensity statin (40-80 mg [...] ORDERAB LES [facility] [place] [address] * (ABNORMAL) Troponin (03/19/2024 5:25 AM EDT) Troponin-T, High Sensitivity 1,276(H) <=14 ng/L [facility] [...] can be found in the [facility] Test Catalog Troponin - [facility] Test Catalog Reference: Fourth [place] Definition of Myocardial Infarction. Journal of the [employer] 2018;72:6051-8614 Blood 03/19/2024 5:25 AM EDT 03/19/2024 5:34 AM EDT Narrative Resulting Agency Comment Spec In Lab Ganseh Nguyen MD CHEMISTRY ORDERAB LES Performing Organization Address [facility]/ZIP Co de Phone Number [facility] [place] [address] * APTT (03/19/2024 5:25 AM EDT) Partial [...] MD HEMATOLOGY ORDERA BLES Performing Organization Address City/[facility]/ZIP Co de Phone Number [facility] [place] [address] * Prothrombin Time (03/19/2024 5:25 AM EDT) [...] ORDERA BLES [facility] [place] [address] * (ABNORMAL) Comprehensive metabolic panel (non-fasting) (03/19/2024 [...] MD CHEMISTRY ORDERAB LES Performing Organization Address City/State/[facility] Co de Phone Number [facility] [place] [address] * EKG 12 Lead (03/19/2024 2:23 AM EDT) Ventricular rate 67 BPM MUSE SYSTEM Atrial Rate 67 BPM MUSE SYSTEM P-R Interval 152 ms MUSE SYSTEM QRS Duration 78 ms MUSE SYSTEM Q-T Interval 500 ms MUSE SYSTEM QTC Calculated (Bezet) 528 ms MUSE SYSTEM Calculated P [place] 54 degrees MUSE SYSTEM Calculated R [place] 56 degrees MUSE SYSTEM Calculated T [place] 31 degrees MUSE SYSTEM INTERPRETATION Normal sinus rhythm Prolonged QT Abnormal ECG No previous ECGs available Confirmed by MD Ambrosio David ([id number]) on 03/23/2024 8:10:32 AM MUSE SYSTEM 03/19/2024 2:23 AM EDT 03/23/2024 8:10 AM EDT Ganesh Nguyen MD ECG ORDERABLES MUSE SYSTEM * (ABNORMAL) Differential, Automated (03/19/2024 2:20 AM EDT) Neutrophil % 89.8 % [facility] Neutrophil Absolute 15.44(H) 1.70 - 6.10 x10(3)/[facility] Lymph % 6.4 % [facility] Lymphocytes Abs 1.1 0.9 - 3.2 x10(3)/[facility] Monocyte % 2.9 % [facility] Monocyte Abs 0.5 0.3 - 0.9 x10(3)/[facility] Eos % 0.1 % [facility] Eosinophils Abs 0.0 0.0 - 0.4 x10(3)/[facility] Basophil % 0.3 % [facility] Baso Absolute 0.0 0.0 - 0.1 x10(3)/[facility] Immature Gran % 0.50 % [facility] Comment: Immature granulocytes(IG's)percentage and absolute count will include metamyelocytes, myelocytes, and promyelocytes. Blood smears from CBCs yielding IG's will be scanned manually for concordance. If this scan disagrees with the automated IG or if promyelocytes are noted, a manual differential will be performed. Immature Gran Absolute 0.08(H) 0.00 - 0.04 x10(3)/ L [facility] Blood 03/19/2024 2:20 AM EDT 03/19/2024 2:59 AM EDT Narrative Resulting Agency Comment Spec In Lab Ganesh Nguyen MD HEMATOLOGY ORDERA BLES Performing Organization Address City/[facility]/ZIP Co de Phone Number [facility] [place] [address] * (ABNORMAL) Hemogram (03/19/2024 2:20 AM EDT) [facility] White Blood Cell 17.2(H) 4.0 - 9.5 x10(3)/mc L [facility] Red Blood Cell 4.70 4.00 - 5.21 x10(6)/mc L [facility] Hemoglobin 13.3 11.7 - 15.5 g/dL [facility] Hematocrit 38.7 35.7 - 45.8 % [facility] Mean Cell Volume 82.3(L) 82.6 - 94.4 fL [facility] Mean Cell Hemoglobin 28.3 27.1 - 32.0 pg [facility] Mean Cell Hemoglobin Concentration 34.4 31.7 - 35.0 g/dL [facility] Platelet 281 145 - 357 x10(3)/mc L [facility] RDW Standard Deviation 41.0 37.0 - 46.0 fL [facility] RDW coefficient of variation 13.7 11.5 - 14.1 % [facility] Mean Platelet Volume 9.7 7.6 - 12.9 fL [facility] NRBC% auto 0.0 % [facility] NRBC Absolute 0.000 0.000 - 0.000 x10(3)/mc L [facility] Blood 03/19/2024 2:20 AM EDT 03/19/2024 2:59 AM EDT Narrative Resulting Agency Comment Spec In Lab Ganesh Nguyen MD HEMATOLOGY ORDERA BLES [facility] [place] [address] * (ABNORMAL) Troponin (03/19/2024 2:20 AM EDT) Troponin-T, High Sensitivity 960(H) <=14 ng/L [facility] [...] can be found in the [facility] Test Catalog Troponin - [facility] Test Catalog Reference: Fourth [place] Definition of Myocardial Infarction. Journal of the [employer] 2018;72:1538-7455 Blood 03/19/2024 2:20 AM EDT 03/19/2024 2:59 AM EDT Narrative Resulting Agency Comment Spec In Lab Ganesh Nguyen MD CHEMISTRY ORDERAB LES Performing Organization Address City/State/[facility] Co de Phone Number [facility] [place] [address] * (ABNORMAL) APTT (03/19/2024 2:20 AM EDT) Partial Thromboplastin Time 123(Criti lewis) 25 - 37 sec [place] [...] MD HEMATOLOGY ORDERA BLES Performing Organization Address [facility] de Phone Number [facility] [place] [address] * Prothrombin Time (03/19/2024 2:20 AM EDT) Prothrombin Time 11.7 9.4 - 12.5 sec [place] [...] MD HEMATOLOGY ORDERA BLES Performing Organization Address [facility] de Phone Number [facility] [place] [address] * (ABNORMAL) Hepatic Function Panel (03/19/2024 2:20 [...] ORDERAB LES Performing Organization Address [facility] Co de Phone Number [facility] [place] [address] * (ABNORMAL) pro-Brain Natriuretic Peptide (03/19/2024 2:20 AM EDT) NT-proBNP 529(H) <=124 pg/mL [facility] Blood 03/19/2024 2:20 AM EDT 03/19/2024 2:59 AM EDT Narrative Resulting Agency Comment Spec In Lab Ganesh Nguyen MD CHEMISTRY ORDERAB LES Performing Organization Address [facility] Co de Phone Number [facility] [place] [address] * Phosphorus (03/19/2024 2:20 AM EDT) Phosphorus 3.8 2.5 - 4.5 mg/dL [facility] Blood 03/19/2024 2:20 AM EDT 03/19/2024 2:59 AM EDT Narrative Resulting Agency Comment Spec In Lab Ganesh Nguyen MD CHEMISTRY ORDERAB LES Performing Organization Address [facility] Co de Phone Number [facility] [place] [address] * Magnesium (03/19/2024 2:20 AM EDT) Magnesium 0.71 0.69 - 1.07 mmol/L [facility] Blood 03/19/2024 2:20 AM EDT 03/19/2024 2:59 AM EDT Narrative Resulting Agency Comment Spec In Lab Ganesh Nguyen MD CHEMISTRY ORDERAB LES [facility] [place] [address] * (ABNORMAL) Basic Metabolic Panel (non-fasting) (03/19/2024 2:20 AM EDT) Glucose 160 65 - 199 mg/dL [facility] [facility] [...] [facility] Carbon Dioxide 20(L) 22 - 31 mmol/L [facility] Anion Gap 17(H) 5 - 15 mmol/L [facility] Calcium 8.2(L) 8.5 - 10.5 mg/dL [facility] Est Glomerular Filtration Rate 75 >=60 mL/min/1. 73 m?? [place] [...] ORDERAB LES Performing Organization Address [facility]/ZIP Co de Phone Number [facility] [place] [phone] * (ABNORMAL) Point of Care Blood Gas [...] ORDERABL ES Performing Organization Address [facility] Co de Phone Number [facility] [place] [address] * CARDIAC CATHETERIZATION (03/19/2024 1:36 AM EDT) Anatomical Region Laterality Modality Other Narrative 03/19/2024 7:19 AM EDT ?[facility] ? Cardiac Catheterization/Intervention Report ? Patient Name: Warnaar, Isa A. ? Procedure Date: 03/19/2024 ? A #: [id number] ? Primary Physician: Kirill, Ramo S ? Case #: [id number] ? File Name: [id number] ? Catheterization Order Number: [id number] ? [facility] ? Final Report [place], [place] ? Patient Name: ? Isa Ro ? ID#: ?[id number] ? : ?1965 ? Procedure Date: ? March 19, 2024 ? Case #: ? [id number] ? Room: ? 6 ? Case Physician: [...] was Emergent. The indication for ?the laborer vineyard visit is ACS less than or equal [...] ?3.5 guiding catheter and a 3.5 Fr [place] [facility] Cheesh-Na 20 Mhz using auto 1 ?mm/sec pullback. [...] A premounted 3.00 x 08 mm Alberto Tanacross (JAHAIRA) was deployed ? with a maximum inflation pressure of 12 atmospheres. ? Another stent insertion was accomplished through a 6 Fr. EBU ? 3.5 guide. ??A premounted 2.00 x 08 mm Alberto Tanacross (JAHAIRA) was ? deployed. ? The final [...] administered prior to arrival in the laborer vineyard. ?Recommended anti-platelet/anti-thrombotic regimen: ?Start aspirin 81 mg daily now and continue for indefinitely. ?Start clopidogrel 75 mg daily now and continue for 12 months then stop. ?These recommendations are made at the time of the intervention. Patient ?and provider preferences or a changing clinical situation may require ?modification of this regimen. Consult [facility] Interventional [facility] for ?questions. ?The [...] against any medical treatment. Consult ?http://tools.acc.org/DAPTriskapp/#!/content/calculator/ or [facility] ?Interventional Cardiology for questions ? [...] Procedure Note Ramo Roy MD - 05/04/2024 [facility] Cardiac Catheterization/Intervention Report Patient Name: Isa Ro Procedure Date: 03/19/2024 A #: [id number] Primary Physician: Ramo Roy Case #: [id number] File Name: [id number] Catheterization Order Number: [id number] [facility] FinalReport [place], [place] Patient Name: Isa Ro ID#:[id number] :1965 Procedure Date: March 19, 2024 Case [...] patient was designated as ASAClass IV. The [facility] clinical frailty scale is 3: Managing Well. Diagnostic Tests: Prior Coronary Angiography: Prior coronary angiography was performed on 12/15/2014 andshowed non-obstructive CAD. Electrocardiography: EKG was assessed by ECG. EKG was Abnormal. EKG showed STDeviation >= 0.5 mm and other abnormality. Medications Prior to Procedure: Aspirin. Indications for Diagnostic Cath: The priority of the diagnostic procedure was Emergent. Theindication for the laborer vineyard visit is ACS less than or equal [...] 3.5 guiding catheter and a 3.5 Fr [place] [facility] Cheesh-Na 20 Mhz usingauto 1 mm/sec pullback. Imaging [...] priority for the procedure was Emergent.The [facility] indication for the procedure was STEMI-Immediate [...] The lesion was predilated with a 2.50mm [id number] MM balloon with a maximum inflation pressure of 14atmospheres. A premounted 3.00 x 08 mm [place] Tanacross (JAHAIRA) wasdeployed with a maximum inflation pressure of 12 atmospheres. Another stent insertion was accomplished through a 6 Fr.EBU 3.5 guide. A premounted 2.00 x 08 mm Alberto Tanacross (JAHAIRA)was deployed. The final outcome was defined [...] administered prior to arrival in the laborer vineyard. Recommended anti-platelet/anti-thrombotic regimen: Start aspirin 81 mg daily now and continue for indefinitely. Start clopidogrel 75 mg daily now and continue for 12 months thenstop. These recommendations are made at the time of the intervention.Patient and provider preferences or a changing clinical situation mayrequire modification of this regimen. Consult [facility] Interventional Cardiologyfor questions. The 1 [...] or against any medical treatment.Consult http://tools.acc.org/DAPTriskapp/#!/content/calculator/ or [facility] Interventional Cardiology for questions Conclusions: [...] pH, POC 7.20(Criti lewis) 7.35 - 7.45 [facility] pCO2, POC 38 35 - 45 mmHg [facility] pO2, POC 74(L) 85 - 104 mmHg [facility] Base Excess, POC -14.0(L) -3.0 - 3.0 mmol/L [facility] Bicarbonate, POC 14.5(L) 20.0 - 26.0 mmol/L [facility] Carbon Dioxide, POC 16(L) 22 - 31 mmol/L [facility] Sodium, POC 116(Critic al) 135 - 145 mmol/L [facility] POC Potassium 3.1(L) 3.5 - 5.0 mmol/L [facility] Ionized Calcium, POC 1.04(L) 1.15 - 1.33 mmol/L [facility] POC Hematocrit 39.0 34.0 - 45.0 % [facility] POC Calc Hgb 13.3 11.2 - 15.7 g/dL [facility] Blood 03/19/2024 1:26 AM EDT 03/19/2024 1:26 AM EDT Kathryn Walker MD CHEMISTRY ORDERABL ES [facility] [place] [address] documented in this encounter Visit Diagnoses Not [...] Discontinued, Routine 0801 (Given - Provider: Loreta Lpoez RN) 0836 (Given - Provider: Izaiah Jimenez, [...] Provider: Loreta Lopez RN)2120 (Given - Provider: Jvaon Sykes RN) 0840 (Given - Provider: Izaiah Jimenez RN)2100 (Given - Provider: Javon Sykes RN) 0858 (Given - Provider: Lubna Cruz, TOSHA) ubiquinone (Coenzyme Q10) (Ubiquinone) capsule 50 mg 50 mg, Oral, DAILY, First dose on 03/19/24 at 1715, Until Discontinued, Routine 0801 (Given - Provider: Loreta Lopez RN) 0836 (Given - Provider: Izaiah Jimenez RN) 0858 (Given - Provider: Lubna Cruz RN) PRN Medication Order 03/20/2024 03/21/2024 03/22/2024 [...] Routine documented in this encounter Care Teams [employer] Relationship Specialty Start Date End Date None None PCP - General 03/19/24 04/20/24 documented as of this encounter
--- OUTSIDE RECORDS SUMMARY | 2024-05-19 08:32 | XMS_ITS | Encounter Summary ---
Author Organization [facility] [place] [address] Care Team Providers Care Jewel Bearing Turner Name Role Phone None Primary Care Provider Unavailabl e Reason for Visit * Auth/Cert (Routine) Specialty Diagnoses / Procedures Referred By Contac t Referred To Contact Diagnoses Acute ST elevation myocardial infarction (STEMI) due to occlusion of left anterior descending (LAD) coronary artery stemi Procedures EMERGENCY IPI Destin Ambrosio MD [facility] [place] [address] [facility] Referral ID Status Reason Start Date Expiration Date Visits Re quested Visits Authorized [id number] 1 1 Encounter Details Date Type Department Care Team (Latest Contact Info) Description 03/19/2024 8:10 AM EDT - 03/19/2024 11:59 PM EDT Hospital Encounter [place] [address] Discharge Disposition: Home Social History Tobacco Use [...] 4:00 PM EDT Office Visit Cardiology at [address] [phone] Kaylee Sutherland MD [facility] [place] [address] documented as of this encounter Procedures Procedure [...] mLs documented in this encounter Care Teams Jewel Bearing Turner Relationship Specialty Start Date End Date None None PCP - General 03/19/24 04/20/24 documented as of this encounter
--- OUTSIDE RECORDS SUMMARY | 2024-05-19 08:32 | XMS_ITS | Encounter Summary ---
Author Organization [facility] Address [facility] [place] [address] Care Team Providers Care Log Chain Feeder Name Role Phone None Primary Care Provider Unavailabl e Reason for Referral * Consultation (Routine) - Authorized Specialty Diagnoses / Procedures Referred By Contac t Referred To Contact Cardiology Diagnoses ST elevation myocardial infarction involving left anterior descending (LAD) coronary artery Kathryn Walker MD [facility] [address] [facility] [address] [place] [address] Referral ID Status Reason Start Date Expiration Date Visits Requested Visits Authorized [id number] Authorized Consult, Test & Treat 03/22/2024 09/18/2024 1 1 * Consultation (Routine) - Authorized Specialty Diagnoses / Procedures Referred By Contac t Referred To Contact Cardiology Diagnoses ST elevation myocardial infarction involving left anterior descending (LAD) coronary artery Horace Hancock MD [facility] [place] [address] Cardiac Rehab, [address] [place] [address] Referral ID Status Reason Start Date Expiration Date Visits Requested Visits Authorized [id number] Authorized Consult, Test & Treat 03/22/2024 09/18/2024 36 36 Reason for Visit * Auth/Cert (Routine) Specialty Diagnoses / Procedures Referred By Contac t Referred To Contact Diagnoses Acute ST elevation myocardial infarction (STEMI) due to occlusion of left anterior descending (LAD) coronary artery stemi Procedures EMERGENCY IPI Destin Ambrosio MD [facility] [place] [address] [facility] Referral ID Status Reason Start Date Expiration Date Visits Re quested Visits Authorized [id number] 1 1 Encounter Details Date Type Department Care Team (Latest Contact Info) Description 03/19/2024 12:37 AM EDT - 03/22/2024 12:10 PM EDT Hospital Encounter Heart and Vascular Unit Level 4 Wing A at [place] [phone] Destin Ambrosio MD [facility] [place] [address] Horace Hancock MD [facility] [place] [address] Kathryn Walker MD [facility] [place] [address] ST elevation myocardial infarction involving left anterior descending (LAD) coronary artery; Chest pain, unspecified type Discharge Disposition: Home Social History Tobacco Use Types Packs/Day Years Used Date Smoking Tobacco: Former Smokeless Tobacco: Never Alcohol Use Standard Drinks/Week Comments Yes 14 (1 standard drink = 0.6 oz pu re alcohol) [facility] Utilities Answer Date Recorded In the past 12 months has [facility] [employer], gas, oil, or water Image Searcher threatened to shut off services in your [...] any time in the past 12 m [facility], were you homeless or living [...] Isa Ro Patient Age: 59 y.o. Language: Angolan Race: White Ethnicity: Not nor Admit date: [...] hypoxemic and hypercapnic respiratory failure in the assistant laboratory director, potentially also due to sedation. Patient briefly [...] [facility] cardiology scheduled. [facility] cardiology referral sent Inpatient Provider Contact Information: Kathryn Walker MD [phone] For questions regarding this document or issues relating to this hospitalization on the Medical Service, please contact your inpatient physician through the [facility] Social Worker Clinical . Issues afterhours and on weekends will [...] 03/19/2024 8:37 AM) Result Value WORKSTATION ID [id number] Narrative EXAMINATION: XR CHEST ONE VIEW CLINICAL [...] Catheterization (Exam End: 03/19/2024 1:36 AM) Narrative [facility] Cardiac Catheterization/Intervention Report Patient Name: Isa Ro Procedure Date: 03/19/2024 A #: [id number] Primary Physician: Ramo Roy Case #: [id number] File Name: [id number] Catheterization Order Number: [id number] [facility] Train Master [facility] Final Report [place], [place] Patient Name: Isa Ro ID#: [id number] : 1965 Procedure Date: March 19, 2024 [...] was designated as ASA Class IV. The [facility] clinical frailty scale is 3: Managing Well. Diagnostic Tests: Prior Coronary Angiography: Prior coronary angiography was performed on 12/15/2014. Electrocardiography: EKG was assessed by ECG. EKG was Abnormal. EKG showed ST Deviation >= 0.5 mm and other abnormality. Medications Prior to Procedure: Aspirin. Indications for Diagnostic Cath: The priority of the diagnostic procedure was Emergent. The indication for the assistant laboratory director visit is ACS less than or equal [...] 3.5 guiding catheter and a 3.5 Fr [place] [facility] [place] 20 Mhz using auto 1 mm/sec pullback. [...] A premounted 3.00 x 08 mm Alberto Chambers (JAHAIRA) was deployed with a maximum inflation pressure of 12 atmospheres. Another stent insertion was accomplished through a 6 Fr. EBU 3.5 guide. A premounted 2.00 x 08 mm [place] Chambers (JAHAIRA) was deployed. The final outcome was [...] dose administered prior to arrival in the assistant laboratory director. Recommended anti-platelet/anti-thrombotic regimen: Start aspirin 81 mg [...] decreased and new wall motion abnormalities. Procedure Complete-[id number]. Image enhancement Definity was used for left [...] prior to speaking with Dr. Herrera, on-call parking lot attendant at [facility]. She was subsequently transferred directly to the [facility] assistant laboratory director where coronary angiography revealed a 100% occluded [...] away. Stay on the phone. The emergency blast furnace operator will tell you what to do. [...] of 8AM-5PM please call the Cardiology Clinic [phone] to speak with a nurse. All other hours please call the Hospital Social Worker Clinical [phone] and ask to speak to the cardiovascular hospitalist on-call. Return to work: One week Follow up Appointments: Doctor Where Phone # Date Time PCP MELECIO Polanco [address] [place], [place] [address] 04/04/24 7:55 AM Fill Plant Operator Herlinda Weaver PA-C [facility] Cardiology Clinic [phone] 05/09/24 10:40 AM (pleasearrive by 10:20 AM) *A referral has also been placed to [facility] cardiology, though you will need to follow-up with them regarding scheduling appointments at [phone] General Instructions None Future Appointments and Orders Future Appointments and Orders Future Appointments Provider Department Dept Phone 05/09/2024 10:40 AM Herlinda Weaver PA Cardiology at [facility] Arrive at: Line Dancer Area [phone] Future Orders Complete By Expires Referral to Cardiac Rehab [AIA036 Custom] As directed Process Instructions: If no progress note charted, please enter Clinical details in comments. Scheduling Instructions: Questions: My question or request is: s/p STEMI- cardiac rehab at [facility] Referral to Cardiology [REF12 Custom] As directed Process Instructions: If no progress note charted, please enter Clinical details in comments. Scheduling Instructions: Questions: My question or request is: s/p STEMI Discharge References/Attachments None Greater than 30 minutes was spent on this discharge including documentation, [id number] time withthe patient, patient education, mill order scheduler, coordination with pharmacy and other patient care. [...] away. Stay on the phone. The emergency blast furnace operator will tell you what to do. [...] rehab has also been placed to [facility]. Call your doctor if: Chest pain, dyspnea, pain or swelling in legs occurs, or for weight gain of 2 pounds overnight or 5pounds in 5 days. If you have non-emergent questions, prior to your follow-up visit call: Thursday-Thursday between the hours of 8AM-5PM please call the Cardiology Clinic [phone] to speak with a nurse. All other hours please call the Hospital Social Worker Clinical [phone] and ask to speak to the cardiovascular hospitalist on-call. Return to work: One week Follow up Appointments: Doctor Where Phone # Date Time PCP MELECIO Polanco [address] [place], [place] [address] 04/04/24 7:55 AM Fill Plant Operator Herlinda Weaver PA-C [facility] Cardiology 4A Clinic [phone] 05/09/24 10:40 AM (pleasearrive by 10:20 AM) *A referral has also been placed to [facility] cardiology, though you will need to follow-up with them regarding scheduling appointments at [phone] documented in this encounter Medications at Time [...] to participate in cardiac rehab at [facility] following discharge Review of Systems: Review [...] to have resulted in hypoxemia in the assistant laboratory director. She was also a bit hypercapnic which [...] re: Losartan/GDMT consideration -Cardiac Rehab at [facility] following discharge -Telemonitoring x72 hours -Plan [...] to have resulted in hypoxemia in the assistant laboratory director. She was also a bit hypercapnic which [...] 03/19/2024 8:20 PM EDTSummary: Chest Pain Patient front office attendant light c/o chest pain 11/21. I asked [...] => BiPAP started Following procedure, transferred to [facility] - able to be weaned to [...] 10:00 PM Hospital to which patient presented: [facility] [...] Not contraindicated Plan STEMI Alert called: Yes Train Master Activated by: Milk Receiver Tank Truck Initial Disposition: Admit Train Master documented in this encounter H&P Notes * [...] prior to speaking with Dr. Herrera, on-call parking lot attendant at [facility]. She was subsequently transferred directly to the [facility] assistant laboratory director where coronary angiography revealed a 100% occluded [...] to have resulted in hypoxemia in the assistant laboratory director. She was also a bit hypercapnic which [...] Cardiopulmonary Resuscitation - Inpatient Ganesh Nguyen MD [employer] Receiver [employer] [id number] documented in this encounter Miscellaneous Notes [...] Rehab, [facility] [address] [facility] [address] Cardiology, [facility] [address] [facility] [address] Transportation: family or friend will provide Functional [...] 03/21/2024 4:02 PM EDT Patient completed a [place] advance directive. Patient identified her sister Stacia [...] N/A ; Prescription Coverage: Yes Preferred Pharmacy: [place], [place] - [address] [place] [address] [address] [place] [address] [address] [facility] [address] [id number] - [address] [place] [address] [facility] - [facility], [place] - [address] [facility] [address] [facility] [address] Advance Care Planning: Attempt Cardiopulmonary Resuscitation - Inpatient <no information> -Advanced Directive: No, need to discuss (RS referral sent for AD discussion) Current Functional Ability: Assistive Person Functional Status Prior to Admission: Independent Home Environment: Others in the home: child(lucian), minor (lives with her 15yo son). Current Living Arrangements: home/apartment/condo. Accessibility Concerns:house with 3 floors and 2 [address]. Current DME: none [address] [facility] [address] Social & Family Supports: All names listed below confirmed with patient as current and correct Extended Emergency Contact Information Primary Emergency Contact: Tiffany Ro, [facility] Mobile Relation: Mother Current Care Provided [...] RS for AD discussion today. Registered Nurse Racing Board Marker / Promotion Producer will continue to follow patient???s progress and [...] an outpatient cardiac rehabilitation program at [facility] was discussed. Patient agrees to a [...] Operative Note Patient Name: Isa Ro : [id number] MR#: [id number] Case Date: 03/19/2024 Surgeon: Surgeons and Role: [...] 4:00 PM EDT Office Visit Cardiology at [address] [phone] Kaylee Sutherland MD [facility] [place] [address] Scheduled Referrals Name Type Priority Associated Diagnoses [...] 5:06 AM EDT) Neutrophil % 71.6 % [facility] Neutrophil Absolute 8.34(H) 1.70 - 6.10 x10(3)/[facility] Lymph % 17.4 % [facility] Lymphocytes Abs 2.0 0.9 - 3.2 x10(3)/[facility] LAB[facility] Monocyte % 8.2 % [facility] Monocyte Abs 1.0(H) 0.3 - 0.9 x10(3)/[facility] Eos % 2.2 % [facility] Eosinophils Abs 0.3 0.0 - 0.4 x10(3)/[facility] Basophil % 0.3 % [facility] Baso Absolute 0.0 0.0 - 0.1 x10(3)/[facility] Immature Gran % 0.30 % [facility] Comment: Immature granulocytes(IG's)percentage and absolute count will include metamyelocytes, myelocytes, and promyelocytes. Blood smears from CBCs yielding IG's will be scanned manually for concordance. If this scan disagrees with the automated IG or if promyelocytes are noted, a manual differential will be performed. Immature Gran Absolute 0.03 0.00 - 0.04 x10(3)/[facility] Blood 03/22/2024 5:06 AM EDT 03/22/2024 5:12 AM EDT Narrative Resulting Agency Comment Spec In Lab Horace Hancock MD HEMATOLOGY ORDERABLE S [facility] [place] [address] * (ABNORMAL) Hemogram (03/22/2024 5:06 AM EDT) White Blood Cell 11.6(H) 4.0 - 9.5 x10(3)/[facility] Red Blood Cell 4.80 4.00 - 5.21 x10(6)/mc L [facility] Hemoglobin 13.5 11.7 - 15.5 g/dL [facility] Hematocrit 40.3 35.7 - 45.8 % [facility] Mean Cell Volume 84.0 82.6 - 94.4 fL [facility] Mean Cell Hemoglobin 28.1 27.1 - 32.0 pg [facility] Mean Cell Hemoglobin Concentration 33.5 31.7 - 35.0 g/dL [facility] Platelet 232 145 - 357 x10(3)/mc L [facility] RDW Standard Deviation 42.2 37.0 - 46.0 fL [facility] RDW coefficient of variation 13.5 11.5 - 14.1 % [facility] Mean Platelet Volume 9.7 7.6 - 12.9 fL [facility] NRBC% auto 0.0 % [facility] NRBC Absolute 0.000 0.000 - 0.000 x10(3)/mc L [facility] Blood 03/22/2024 5:06 AM EDT 03/22/2024 5:12 AM EDT Narrative Resulting Agency Comment Spec In Lab Horace Hancock MD HEMATOLOGY ORDERABLE S [facility] [place] [address] * Basic Metabolic Panel (non-fasting) (03/22/2024 5:06 AM EDT) Glucose 107 65 - 199 mg/dL [facility] Comment:Diabetes: >=200 mg/d L plus symptoms Blood Urea Nitrogen 18 8 - 18 mg/dL [facility] - 107 mmol/L [facility] Carbon Dioxide 24 22 - 31 mmol/L [facility] Anion Gap 10 5 - 15 mmol/L [facility] Calcium 9.2 8.5 - 10.5 mg/dL [facility] Est Glomerular Filtration Rate 76 >=60 mL/min/1. 73 m?? [facility] [...] Hancock MD CHEMISTRY ORDERABLES Performing Organization Address [facility] Co de Phone Number [facility] [place] [address] * Magnesium (03/22/2024 5:06 AM EDT) Magnesium 0.90 0.69 - 1.07 mmol/L [facility] Blood 03/22/2024 5:06 AM EDT 03/22/2024 5:12 AM EDT Narrative Resulting Agency Comment Spec In Lab Destin Ambrosio MD CHEMISTRY ORDERABLES Performing Organization Address City/[facility]/ZIP Co de Phone Number [facility] [place] [address] * (ABNORMAL) Differential, Automated (03/21/2024 2:57 AM EDT) Neutrophil % 63.0 % [facility] Neutrophil Absolute 6.70(H) 1.70 - 6.10 x10(3)/mc L [facility] Lymph % 24.9 % [facility] Lymphocytes Abs 2.6 0.9 - 3.2 x10(3)/mc L [facility] Monocyte % 8.7 % [facility] Monocyte Abs 0.9 0.3 - 0.9 x10(3)/mc L [facility] Eos % 2.8 % [facility] Eosinophils Abs 0.3 0.0 - 0.4 x10(3)/ L [facility] Basophil % 0.3 % [facility] Baso Absolute 0.0 0.0 - 0.1 x10(3)/mc L [facility] Immature Gran % 0.30 % [facility] Comment: Immature granulocytes(IG's)percentage and absolute count will include metamyelocytes, myelocytes, and promyelocytes. Blood smears from CBCs yielding IG's will be scanned manually for concordance. If this scan disagrees with the automated IG or if promyelocytes are noted, a manual differential will be performed. Immature Gran Absolute 0.03 0.00 - 0.04 x10(3)/mc L [facility] Blood 03/21/2024 2:57 AM EDT 03/21/2024 3:03 AM EDT Narrative Resulting Agency Comment Spec In Lab Horace Hancock MD HEMATOLOGY ORDERABLE S [facility] [place] [address] * (ABNORMAL) Hemogram (03/21/2024 2:57 AM EDT) Pathologist [facility] White Blood Cell 10.6(H) 4.0 - 9.5 x10(3)/[facility] Red Blood Cell 4.54 4.00 - 5.21 x10(6)/mc L [facility] Hemoglobin 12.8 11.7 - 15.5 g/dL [facility] Hematocrit 38.2 35.7 - 45.8 % [facility] Mean Cell Volume 84.1 82.6 - 94.4 [facility] Mean Cell Hemoglobin 28.2 27.1 - 32.0 pg [facility] Mean Cell Hemoglobin Concentration 33.5 31.7 - 35.0 g/dL [facility] Platelet 242 145 - 357 x10(3)/[facility] RDW Standard Deviation 42.4 37.0 - 46.0 [facility] RDW coefficient of variation 13.7 11.5 - 14.1 % [facility] Mean Platelet Volume 9.5 7.6 - 12.9 [facility] LAB[facility] NRBC% auto 0.0 % [facility] NRBC Absolute 0.000 0.000 - 0.000 x10(3)/[facility] Blood 03/21/2024 2:57 AM EDT 03/21/2024 3:03 AM EDT Narrative Resulting Agency Comment Spec In Lab Horace Hancock MD HEMATOLOGY ORDERABLE S [facility] [place] [address] * Basic Metabolic Panel (non-fasting) (03/21/2024 2:57 AM EDT) Pathologist [facility] Glucose 98 65 - 199 mg/dL [facility] Comment:Diabetes: >=200 mg/d L plus symptoms Blood Urea Nitrogen 15 8 - 18 mg/dL [facility] [...] - 107 mmol/L [facility] Carbon Dioxide 25 22 - 31 mmol/L [facility] Anion Gap 12 5 - 15 mmol/L [facility] Calcium 9.2 8.5 - 10.5 mg/dL [facility] Est Glomerular Filtration Rate 82 >=60 mL/min/1. 73 m?? [facility] [...] MD CHEMISTRY ORDERABLES [facility] [place] [address] * Magnesium (03/21/2024 2:57 AM EDT) Magnesium 0.91 0.69 - 1.07 mmol/L [facility] Blood 03/21/2024 2:57 AM EDT 03/21/2024 3:03 AM EDT Narrative Resulting Agency Comment Spec In Lab Destin Ambrosio MD CHEMISTRY ORDERABLES Performing Organization Address [facility] Co de Phone Number [facility] [place] [address] * Metanephrines, Fractionated Free, plasma (03/21/2024 2:57 AM EDT) Normetanephrine, Free (JANUARY) 0.47 <0.90 nmol/L [facility] Comment: Test Performed by: [facility] [place] [address] Outreach Counselor: Chasity Hernandez Ph.D.; CLIA# [id number] Metanephrine, Free (JANUARY) <0.20 <0.50 nmol/L [facility] Comment: ADDITIONAL INFORMATION This test was developed and its performance characteristics determined by [facility] in a manner consistent with CLIA requirements. This test has not been cleared or approved by the U.S. Food and Drug Administration. Test Performed by: [facility] [place] [address] Outreach Counselor: Chsaity Hernandez Ph.D.; CLIA# [id number] Blood 03/21/2024 2:57 AM EDT 03/21/2024 11:29 AM EDT Narrative Resulting Agency Comment Spec In Lab Horace Hancock MD LAB SEND OUT ORDERAB LES Performing Organization Address [facility]/ZIP Co de Phone Number [facility] [place] [address] * Iron and TIBC (03/20/2024 10:38 AM [...] MD CHEMISTRY ORDERABLES [facility] [place] [address] * (ABNORMAL) Differential, Automated (03/20/2024 10:38 AM EDT) Neutrophil % 73.1 % [facility] Neutrophil Absolute 9.60(H) 1.70 - 6.10 x10(3)/ L [facility] Lymph % 17.3 % [facility] Lymphocytes Abs 2.3 0.9 - 3.2 x10(3)/[facility] Monocyte % 7.5 % [facility] Monocyte Abs 1.0(H) 0.3 - 0.9 x10(3)/[facility] Eos % 1.5 % [facility] Eosinophils Abs 0.2 0.0 - 0.4 x10(3)/[facility] Basophil % 0.3 % [facility] Baso Absolute 0.0 0.0 - 0.1 x10(3)/[facility] Immature Gran % 0.30 % [facility] Comment: Immature granulocytes(IG's)percentage and absolute count will include metamyelocytes, myelocytes, and promyelocytes. Blood smears from CBCs yielding IG's will be scanned manually for concordance. If this scan disagrees with the automated IG or if promyelocytes are noted, a manual differential will be performed. Immature Gran Absolute 0.04 0.00 - 0.04 x10(3)/ L [facility] Blood 03/20/2024 10:3 8 AM EDT 03/20/2024 10:47 AM EDT Narrative Resulting Agency Comment Spec In Lab Horace Hancock MD HEMATOLOGY ORDERABLE S Performing Organization Address City/[facility]/ZIP Co de Phone Number [facility] [place] [address] * (ABNORMAL) Hemogram (03/20/2024 10:38 AM EDT) White Blood Cell 13.2(H) 4.0 - 9.5 x10(3)/mc L [facility] Red Blood Cell 4.66 4.00 - 5.21 x10(6)/mc L [facility] Hemoglobin 13.0 11.7 - 15.5 g/dL [facility] Hematocrit 38.7 35.7 - 45.8 % [facility] Mean Cell Volume 83.0 82.6 - 94.4 fL [facility] Mean Cell Hemoglobin 27.9 27.1 - 32.0 pg [facility] Mean Cell Hemoglobin Concentration 33.6 31.7 - 35.0 g/dL [facility] Platelet 238 145 - 357 x10(3)/mc L [facility] RDW Standard Deviation 41.7 37.0 - 46.0 fL [facility] RDW coefficient of variation 13.8 11.5 - 14.1 % [facility] Mean Platelet Volume 9.8 7.6 - 12.9 fL [facility] NRBC% auto 0.0 % [facility] NRBC Absolute 0.000 0.000 - 0.000 x10(3)/mc L [facility] Blood 03/20/2024 10:3 8 AM EDT 03/20/2024 10:47 AM EDT Narrative Resulting Agency Comment Spec In Lab Horace Hancock MD HEMATOLOGY ORDERABLE S [facility] [place] [address] * Magnesium (03/20/2024 10:38 AM EDT) Magnesium 0.88 0.69 - 1.07 mmol/L [facility] Blood 03/20/2024 10:3 8 AM EDT 03/20/2024 10:47 AM EDT Narrative Resulting Agency Comment Spec In Lab Horace Hancock MD CHEMISTRY ORDERABLES [facility] [place] [address] * Basic Metabolic Panel (non-fasting) (03/20/2024 10:38 AM EDT) Glucose 108 65 - 199 mg/dL [facility] Comment:Diabetes: >=200 mg/d L plus symptoms Blood Urea Nitrogen 11 8 - 18 mg/dL [facility] - 107 mmol/L [facility] Carbon Dioxide 22 22 - 31 mmol/L [facility] Anion Gap 14 5 - 15 mmol/L [facility] Calcium 9.0 8.5 - 10.5 mg/dL [facility] Est Glomerular Filtration Rate 82 >=60 mL/min/1. 73 m?? [facility] Hancock MD CHEMISTRY ORDERABLES Performing Organization Address City/[facility]/ZIP Co de Phone Number [facility] [place] [address] * Magnesium (03/19/2024 11:01 PM EDT) Magnesium 0.96 0.69 - 1.07 mmol/L [facility] Blood Venous Draw / Unknown 03/19/2024 11:01 PM EDT 03/19/2024 11:06 PM EDT Narrative Resulting Agency Comment Spec In Lab Horace Hancock MD CHEMISTRY ORDERABLES Performing Organization Address City/[facility]/ZIP Co de Phone Number [facility] [place] [address] * (ABNORMAL) Troponin (03/19/2024 11:01 PM EDT) Troponin-T, High Sensitivity 2,406(H) <=14 ng/L [facility] [...] troponin value can be found in the [facility] Test Catalog Troponin - [facility] Test Catalog Reference: Fourth [place] Definition of Myocardial Infarction. Journal of the [employer] [employer] 2018;72:7000-1058 Blood 03/19/2024 11:0 1 PM EDT 03/19/2024 11:05 PM EDT Narrative Resulting Agency Comment Spec In Lab Franky Mead MD CHEMISTRY ORDERABLE S [facility] [place] [address] * (ABNORMAL) Troponin (03/19/2024 8:40 PM EDT) Troponin-T, High Sensitivity 2,586(H) <=14 ng/L [facility] [...] troponin value can be found in the [facility] Test Catalog Troponin - [facility] Test Catalog Reference: Fourth [place] Definition of Myocardial Infarction. Journal of the [place] [employer] 2018;72:6888-3407 Blood 03/19/2024 8:40 PM EDT 03/19/2024 8:45 PM EDT Narrative Resulting Agency Comment Spec In Lab Ganesh Nguyen MD CHEMISTRY ORDERAB LES [facility] [place] [address] * EKG 12 Lead (03/19/2024 8:32 PM EDT) Ventricular rate 70 BPM MUSE SYSTEM Atrial Rate 70 BPM MUSE SYSTEM P-R Interval 158 ms MUSE SYSTEM QRS Duration 78 ms MUSE SYSTEM Q-T Interval 470 ms MUSE SYSTEM QTC Calculated (Bezet) 507 ms MUSE SYSTEM Calculated P [place] 62 degrees MUSE SYSTEM Calculated R [place] 42 degrees MUSE SYSTEM Calculated T [place] -158 degrees MUSE SYSTEM INTERPRETATION Normal sinus rhythm Poor R wave progression T wave abnormality, consider lateral ischemia Prolonged QT Abnormal ECG When compared with ECG of 19-MAR-2024 17:27, No significant change was found Confirmed by MD Ambrosio David ([id number]) on 03/23/2024 8:10:58 AM MUSE SYSTEM 03/19/2024 [...] (Bezet) 496 ms MUSE SYSTEM Calculated P [place] 80 degrees MUSE SYSTEM Calculated R [place] 87 degrees MUSE SYSTEM Calculated T [place] -96 degrees MUSE SYSTEM INTERPRETATION Normal sinus rhythm T wave abnormality, consider lateral ischemia Prolonged QT Abnormal ECG When compared with ECG of 19-MAR-2024 02:23, Non-specific change in ST segment in Anterior leads T wave inversion more evident in Inferior leads T wave inversion now evident in Anterolateral leads Confirmed by MD Ambrosio David ([id number]) on 03/23/2024 8:10:45 AM MUSE SYSTEM 03/19/2024 5:27 PM EDT 03/23/2024 8:10 AM EDT Unknown ECG ORDERABLES MUSE SYSTEM * (ABNORMAL) Troponin (03/19/2024 2:45 PM EDT) Troponin-T, High Sensitivity 3,792(H) <=14 ng/L [facility] [...] troponin value can be found in the [facility] Test Catalog Troponin - [facility] Test Catalog Reference: Fourth [place] Definition of Myocardial Infarction. Journal of the [place] [employer] 2018;72:0138-1107 Blood 03/19/2024 2:45 PM EDT 03/19/2024 2:54 PM EDT Narrative Resulting Agency Comment Spec In Lab Horace Hancock MD CHEMISTRY ORDERABLES [facility] [place] [address] * ECHO COMPLETE W CONTRAST (03/19/2024 10:53 AM EDT) Anatomical Region Laterality Modality Cardiac Other 03/19/2024 9:03 AM EDT Narrative 03/19/2024 12:12 PM EDT [address] [place] [id number] ? Echocardiogram Report Name: ELADIO ROA Chuy ?Study Date: 03/19/2024 09:03 AMBP: 129/68 mmHg ? Patient Location: 4A : 1965 ? Height: 158 cm ? Account: [id number] Age: 59 yrs ? Weight: 57 kg Gender: Female ?BSA: 1.6 m2 Ordering Physician: GANESH NGUYEN Referring Physician: GANESH NGUYEN Performed By: PREEZ Carlos Reason For Study: STEMI involving LAD Exam Location: [facility]. Interpretation Summary Normal left ventricle size with mildly reduced LV function. LV ejection fraction 49%. LAD territory wall motion abnormality, predominantly involving the LV apex. No LV thrombus visualized with echo contrast. Normal right ventricle. No significant valvular abnormalities. Compared with prior echo dated 08/28/23, LV function has now decreased and new wall motion abnormalities. Procedure Complete-[id number]. Image enhancement Definity was used for left [...] Note Destin Ambrosio MD - 03/19/2024 [address] [place] [address] Echocardiogram Report Name: ISA RO Study Date: 409:03 AMBP: 129/68 mmHg Patient Location: : 1965 Height: 158 cm Account: [id number] Age: 59 yrs Weight: 57 kg Gender: Female BSA: 1.6 m2 Ordering Physician: GANESH NGUYEN Referring Physician: GANESH NGUYEN Performed By: PEREZ Carlos Reason For Study: STEMI involving LAD Exam Location: [facility]. Interpretation Summary Normal left ventricle size with mildly reduced LV function. LV ejectionfraction 49%. LAD territory wall motion abnormality, predominantly involving the LVapex. No LV thrombus visualized with echo contrast. Normal right ventricle. No significant valvular abnormalities. Compared with prior echo dated 08/28/23, LV function has now decreased andnew wall motion abnormalities. Procedure Complete-[id number]. Image enhancement Definity was used for left [...] View (03/19/2024 8:37 AM EDT) WORKSTATION ID [id number] RAD Anatomical Region Laterality Modality Chest N/A [...] faculty that requested your imaging first. ? Narrative [...] Hemoglobin A1c (03/19/2024 5:25 AM EDT) Pathologist [facility] Hemoglobin A1c 5.6 4.3 - 5.6 % [facility] [...] Mellitus, Diabetes Care 2013; 36: Suppl. 1, N26-22 Estimated Average Glucose 114 mg/dL [facility] Blood Venous Draw / Unknown 03/19/2024 5:25 AM EDT 03/19/2024 3:52 PM EDT Narrative Resulting Agency Comment Spec In Lab Horace Hancock MD CHEMISTRY ORDERABLES [facility] [place] [address] * (ABNORMAL) Differential, Automated (03/19/2024 5:25 AM EDT) Neutrophil % 90.0 % [facility] Neutrophil Absolute 16.73(H) 1.70 - 6.10 x10(3)/ L [facility] Lymph % 5.2 % [facility] Lymphocytes Abs 1.0 0.9 - 3.2 x10(3)/[facility] Monocyte % 4.2 % [facility] Monocyte Abs 0.8 0.3 - 0.9 x10(3)/[facility] Eos % 0.0 % [facility] Eosinophils Abs 0.0 0.0 - 0.4 x10(3)/[facility] Basophil % 0.2 % [facility] Baso Absolute 0.0 0.0 - 0.1 x10(3)/[facility] Immature Gran % 0.40 % [facility] Comment: Immature granulocytes(IG's)percentage and absolute count will include metamyelocytes, myelocytes, and promyelocytes. Blood smears from CBCs yielding IG's will be scanned manually for concordance. If this scan disagrees with the automated IG or if promyelocytes are noted, a manual differential will be performed. Immature Gran Absolute 0.08(H) 0.00 - 0.04 x10(3)/[facility] Blood 03/19/2024 5:25 AM EDT 03/19/2024 5:34 AM EDT Narrative Resulting Agency Comment Spec In Lab Ganesh Nguyen MD HEMATOLOGY ORDERA BLES [facility] [place] [place] [address] * (ABNORMAL) Hemogram (03/19/2024 5:25 AM EDT) White Blood Cell 18.6(H) 4.0 - 9.5 x10(3)/[facility] Red Blood Cell 4.92 4.00 - 5.21 x10(6)/[facility] Hemoglobin 13.7 11.7 - 15.5 g/dL [facility] Hematocrit 40.6 35.7 - 45.8 % [facility] Mean Cell Volume 82.5(L) 82.6 - 94.4 fL [facility] Mean Cell Hemoglobin 27.8 27.1 - 32.0 pg [facility] Mean Cell Hemoglobin Concentration 33.7 31.7 - 35.0 g/dL [facility] Platelet 285 145 - 357 x10(3)/mc L [facility] RDW Standard Deviation 41.1 37.0 - 46.0 fL [facility] RDW coefficient of variation 13.6 11.5 - 14.1 % [facility] Mean Platelet Volume 9.5 7.6 - 12.9 fL [facility] NRBC% auto 0.0 % [facility] NRBC Absolute 0.000 0.000 - 0.000 x10(3)/mc L [facility] Blood 03/19/2024 5:25 AM EDT 03/19/2024 5:34 AM EDT Narrative Resulting Agency Comment Spec In Lab Ganesh Nguyen MD HEMATOLOGY ORDERA BLES [facility] [place] [place] [address] * Lipid Panel (Reflex Direct LDL) (03/19/2024 5:25 AM EDT) Cholesterol, Total 324 mg/dL [facility] Comment: Desirable: ? <200 mg/dL Borderline High: 200-239 mg/dL Higher: ?>ds=879 mg/dL Triglyceride 200 mg/dL [facility] Comment: Normal: ?<150 mg/dL Borderline High: 150-199 mg/dL High: ?200-499 mg/dL Very High: ? >kd=433 mg/dL HDL Cholesterol 68 mg/dL [facility] Comment: Females: High Risk: <50 mg/dL Males: High Risk: <40 mg/dL LDL Cholesterol 216 mg/dL [facility] Comment: Desirable: ? <100 mg/dL Above Desirable: 100-129 mg/dL Borderline High: 130-159 mg/dL High: ?160-189 mg/dL Very High: ? >hy=358 mg/dL Lipid Interpretation See Note [facility] [...] individuals with atherosclerotic cardiovascular disease (ASCVD)or LDL >bg=929 mg/dL, use a high-intensity statin (40-80 mg [...] CHEMISTRY ORDERAB LES [facility] [place] [address] * (ABNORMAL) Troponin (03/19/2024 5:25 AM EDT) Troponin-T, High Sensitivity 1,276(H) <=14 ng/L [facility] [...] troponin value can be found in the [facility] Test Catalog Troponin - [facility] Test Catalog Reference: Fourth [place] Definition of Myocardial Infarction. Journal of the [place] [employer] 2018;72:6771-0708 Blood 03/19/2024 5:25 AM EDT 03/19/2024 5:34 AM EDT Narrative Resulting Agency Comment Spec In Lab Ganesh Nguyen MD CHEMISTRY ORDERAB LES Performing Organization Address [facility] Co de Phone Number [facility] [place] [address] * APTT (03/19/2024 5:25 AM EDT) Partial Thromboplastin Time 29 25 - 37 sec [facility] MD HEMATOLOGY ORDERA BLES Performing Organization Address [facility] de Phone Number [facility] [place] [place] [address] * Prothrombin Time (03/19/2024 5:25 AM EDT) Prothrombin Time 10.9 9.4 - 12.5 sec [facility] International Normalization Ratio 1.0 [facility] Comment: An [...] MD HEMATOLOGY ORDERA BLES Performing Organization Address [facility] Co de Phone Number [facility] [place] [address] * (ABNORMAL) Comprehensive metabolic panel (non-fasting) (03/19/2024 5:25 AM EDT) Glucose 181 65 - 199 mg/dL [facility] Comment:Diabetes: >=200 mg/d L plus symptoms Blood Urea Nitrogen 14 8 - 18 mg/dL [facility] - 107 mmol/L [facility] Carbon Dioxide 22 22 - 31 mmol/L [facility] Anion Gap 15 5 - 15 mmol/L [facility] Calcium 8.7 8.5 - 10.5 mg/dL [facility] Protein, Total 7.2 6.1 - 8.0 g/dL [facility] Albumin 4.5 3.2 - 5.2 g/dL [facility] Aspartate Aminotransferase 95(H) 0 - 30 unit/L [facility] Comment:result rechecked-bz Alanine Aminotransferase 31(H) 0 - 30 unit/L [facility] Alkaline Phosphatase 70 35 - 105 unit/L [facility] Bilirubin, Total 0.5 0.2 - 1.3 mg/dL [facility] Est Glomerular Filtration Rate 72 >=60 mL/min/1. 73 m?? [facility] [...] MD CHEMISTRY ORDERAB LES Performing Organization Address [facility] Co de Phone Number [facility] [place] [address] * EKG 12 Lead (03/19/2024 2:23 AM EDT) Ventricular rate 67 BPM MUSE SYSTEM Atrial Rate 67 BPM MUSE SYSTEM P-R Interval 152 ms MUSE SYSTEM QRS Duration 78 ms MUSE SYSTEM Q-T Interval 500 ms MUSE SYSTEM QTC Calculated (Bezet) 528 ms MUSE SYSTEM Calculated P [place] 54 degrees MUSE SYSTEM Calculated R [place] 56 degrees MUSE SYSTEM Calculated T [place] 31 degrees MUSE SYSTEM INTERPRETATION Normal sinus rhythm Prolonged QT Abnormal ECG No previous ECGs available Confirmed by MD Ambrosio David ([id number]) on 03/23/2024 8:10:32 AM MUSE SYSTEM 03/19/2024 2:23 AM EDT 03/23/2024 8:10 AM EDT Ganesh Nguyen MD ECG ORDERABLES Performing Organization Address [facility] Phone Number MUSE SYSTEM * (ABNORMAL) Differential, Automated (03/19/2024 2:20 AM EDT) Neutrophil % 89.8 % [facility] Neutrophil Absolute 15.44(H) 1.70 - 6.10 x10(3)/mc L [facility] Lymph % 6.4 % [facility] Lymphocytes Abs 1.1 0.9 - 3.2 x10(3)/mc L [facility] Monocyte % 2.9 % [facility] Monocyte Abs 0.5 0.3 - 0.9 x10(3)/ L [facility] Eos % 0.1 % [facility] Eosinophils Abs 0.0 0.0 - 0.4 x10(3)/[facility] Basophil % 0.3 % [facility] Baso Absolute 0.0 0.0 - 0.1 x10(3)/[facility] Immature Gran % 0.50 % [facility] Comment: Immature granulocytes(IG's)percentage and absolute count will include metamyelocytes, myelocytes, and promyelocytes. Blood smears from CBCs yielding IG's will be scanned manually for concordance. If this scan disagrees with the automated IG or if promyelocytes are noted, a manual differential will be performed. Immature Gran Absolute 0.08(H) 0.00 - 0.04 x10(3)/[facility] Blood 03/19/2024 2:20 AM EDT 03/19/2024 2:59 AM EDT Narrative Resulting Agency Comment Spec In Lab Ganesh Nguyen MD HEMATOLOGY ORDERA BLES [facility] [place] [address] * (ABNORMAL) Hemogram (03/19/2024 2:20 AM EDT) White Blood Cell 17.2(H) 4.0 - 9.5 x10(3)/ L [facility] Red Blood Cell 4.70 4.00 - 5.21 x10(6)/ L [facility] Hemoglobin 13.3 11.7 - 15.5 g/dL [facility] Hematocrit 38.7 35.7 - 45.8 % [facility] Mean Cell Volume 82.3(L) 82.6 - 94.4 fL [facility] Mean Cell Hemoglobin 28.3 27.1 - 32.0 pg [facility] Mean Cell Hemoglobin Concentration 34.4 31.7 - 35.0 g/dL [facility] Platelet 281 145 - 357 x10(3)/mc L [facility] RDW Standard Deviation 41.0 37.0 - 46.0 fL [facility] RDW coefficient of variation 13.7 11.5 - 14.1 % [facility] Mean Platelet Volume 9.7 7.6 - 12.9 fL [facility] NRBC% auto 0.0 % [facility] NRBC Absolute 0.000 0.000 - 0.000 x10(3)/mc L [facility] Blood 03/19/2024 2:20 AM EDT 03/19/2024 2:59 AM EDT Narrative Resulting Agency Comment Spec In Lab Ganesh Nguyen MD HEMATOLOGY ORDERA BLES [facility] [place] [address] * (ABNORMAL) Troponin (03/19/2024 2:20 AM EDT) Troponin-T, High Sensitivity 960(H) <=14 ng/L [facility] [...] troponin value can be found in the [facility] Test Catalog Troponin - [facility] Test Catalog Reference: Fourth [place] Definition of Myocardial Infarction. Journal of the [place] [employer] 2018;72:5638-0389 Blood 03/19/2024 2:20 AM EDT 03/19/2024 2:59 AM EDT Narrative Resulting Agency Comment Spec In Lab Ganesh Nguyen MD CHEMISTRY ORDERAB LES Performing Organization Address [facility] de Phone Number [facility] [place] [address] * (ABNORMAL) APTT (03/19/2024 2:20 AM EDT) Partial Thromboplastin Time 123(Criti lewis) 25 - 37 sec [facility] [...] MD HEMATOLOGY ORDERA BLES Performing Organization Address [facility] de Phone Number [facility] [place] [address] * Prothrombin Time (03/19/2024 2:20 AM EDT) Prothrombin Time 11.7 9.4 - 12.5 sec [facility] International Normalization Ratio 1.0 [facility] Comment: An [...] MD HEMATOLOGY ORDERA BLES Performing Organization Address [facility] Co de Phone Number [facility] [place] [address] * (ABNORMAL) Hepatic Function Panel (03/19/2024 2:20 AM EDT) Protein, Total 6.7 6.1 - 8.0 g/dL [facility] Albumin 4.3 3.2 - 5.2 g/dL [facility] Aspartate Aminotransferase 49(H) 0 - 30 unit/L [facility] Alanine Aminotransferase 26 0 - 30 unit/L [facility] Alkaline Phosphatase 67 35 - 105 unit/L [facility] Bilirubin, Total 0.4 0.2 - 1.3 mg/dL [facility] Bilirubin, Direct 0.1 0.0 - 0.3 mg/dL [facility] Blood 03/19/2024 2:20 AM EDT 03/19/2024 2:59 AM EDT Narrative Resulting Agency Comment Spec In Lab Ganesh Nguyen MD CHEMISTRY ORDERAB LES Performing Organization Address City/[facility] Co de Phone Number [facility] [place] [address] * (ABNORMAL) pro-Brain Natriuretic Peptide (03/19/2024 2:20 AM EDT) NT-proBNP 529(H) <=124 pg/mL [facility] Blood 03/19/2024 2:20 AM EDT 03/19/2024 2:59 AM EDT Narrative Resulting Agency Comment Spec In Lab Ganesh Nguyen MD CHEMISTRY ORDERAB LES Performing Organization Address City/[facility]/ZIP Co de Phone Number [facility] [place] [address] * Phosphorus (03/19/2024 2:20 AM EDT) Pathologist [facility] Phosphorus 3.8 2.5 - 4.5 mg/dL [facility] Blood 03/19/2024 2:20 AM EDT 03/19/2024 2:59 AM EDT Narrative Resulting Agency Comment Spec In Lab Ganesh Nguyen MD CHEMISTRY ORDERAB LES Performing Organization Address [facility] Co de Phone Number [facility] [place] [address] * Magnesium (03/19/2024 2:20 AM EDT) [facility] Magnesium 0.71 0.69 - 1.07 mmol/L [facility] Blood 03/19/2024 2:20 AM EDT 03/19/2024 2:59 AM EDT Narrative Resulting Agency Comment Spec In Lab Ganesh Nguyen MD CHEMISTRY ORDERAB LES Performing Organization Address [facility] Co de Phone Number [facility] [place] [address] * (ABNORMAL) Basic Metabolic Panel (non-fasting) (03/19/2024 2:20 AM EDT) Pathologist [facility] Glucose 160 65 - 199 mg/dL [facility] Comment:Diabetes: >=200 mg/d L plus symptoms Blood Urea Nitrogen 14 8 - 18 mg/dL [facility] [...] - 107 mmol/L [facility] Carbon Dioxide 20(L) 22 - 31 mmol/L [facility] Anion Gap 17(H) 5 - 15 mmol/L [facility] Calcium 8.2(L) 8.5 - 10.5 mg/dL [facility] Est Glomerular Filtration Rate 75 >=60 mL/min/1. 73 m?? [facility] [...] CHEMISTRY ORDERAB LES [facility] [place] [address] * (ABNORMAL) Point of Care Blood Gas Historical (03/19/2024 1:41 AM EDT) pH, POC 7.28(Criti lewis) 7.35 - 7.45 [facility] pCO2, POC 40 35 - 45 mmHg [facility] pO2, POC 84(L) 85 - 104 mmHg [facility] Base Excess, POC -8.0(L) -3.0 - 3.0 mmol/L [facility] Bicarbonate, POC 18.6(L) 20.0 - 26.0 mmol/L [facility] Carbon Dioxide, POC 20(L) 22 - 31 mmol/L [facility] Sodium, POC 134(L) 135 - 145 mmol/L [facility] POC Potassium 3.4(L) 3.5 - 5.0 mmol/L [facility] Ionized Calcium, POC 1.09(L) 1.15 - 1.33 mmol/L [facility] Hematocrit 38.0 34.0 - 45.0 % [facility] Calc Hgb 12.9 11.2 - 15.7 g/dL [facility] Blood 03/19/2024 1:41 AM EDT 03/19/2024 1:41 AM EDT Kathryn Walker MD CHEMISTRY ORDERABL ES Performing Organization Address City/State/[facility] Co de Phone Number [facility] [place] [address] * CARDIAC CATHETERIZATION (03/19/2024 1:36 AM EDT) Anatomical Region Laterality Modality Other Narrative 03/19/2024 7:19 AM EDT ?[facility] ? Cardiac Catheterization/Intervention Report ? Patient Name: Isa Ro. ? Procedure Date: 03/19/2024 ? A #: [id number] ? Primary Physician: Ramo Roy ? Case #: [id number] ? File Name: [id number] ? Catheterization Order Number: [id number] ? [facility] ? Final Report [place], [place] ? Patient Name: ? Isa A. Warnaar ? ID#: ?[id number] ? : ?1965 ? Procedure Date: ? [...] was designated as ASA Class IV. ?The [facility] clinical frailty scale is 3: Managing [...] procedure was Emergent. The indication for ?the assistant laboratory director visit is ACS less than or equal [...] ?3.5 guiding catheter and a 3.5 Fr [facility] [place] 20 Mhz using auto 1 ?mm/sec pullback. [...] A premounted 3.00 x 08 mm Alberto Chambers ([id number]) was deployed ? with a maximum inflation pressure of 12 atmospheres. ? Another stent insertion was accomplished through a 6 Fr. EBU ? 3.5 guide. ??A premounted 2.00 x 08 mm Alberto Chambers (JAHAIRA) was ? deployed. ? The final [...] dose administered prior to arrival in the assistant laboratory director. ?Recommended anti-platelet/anti-thrombotic regimen: ?Start aspirin 81 mg [...] Procedure Note Ramo Roy MD - 05/04/2024 [facility] Cardiac Catheterization/Intervention Report Patient Name: Isa Ro Procedure Date: 03/19/2024 A #: [id number] Primary Physician: Ramo Roy Case #: [id number] File Name: [id number] Catheterization Order Number: [id number] [facility] FinalReport [place], [place] Patient Name: Isa Ro ID#:[id number] :1965 Procedure Date: March 19, 2024 Case [...] patient was designated as ASAClass IV. The [facility] clinical frailty scale is 3: Managing Well. Diagnostic Tests: Prior Coronary Angiography: Prior coronary angiography was performed on 12/15/2014 andshowed non-obstructive CAD. Electrocardiography: EKG was assessed by ECG. EKG was Abnormal. EKG showed STDeviation >= 0.5 mm and other abnormality. Medications Prior to Procedure: Aspirin. Indications for Diagnostic Cath: The priority of the diagnostic procedure was Emergent. Theindication for the assistant laboratory director visit is ACS less than or equal [...] 3.5 guiding catheter and a 3.5 Fr [facility] [place] 20 Mhz usingauto 1 mm/sec pullback. Imaging [...] The priority for the procedure was Emergent.The [facility] indication for [...] The lesion was predilated with a 2.50mm LEREHVY32 MM balloon with a maximum inflation pressure of 14atmospheres. A premounted 3.00 x 08 mm [place] Chambers (JAHAIRA) wasdeployed with a maximum inflation pressure of 12 atmospheres. Another stent insertion was accomplished through a 6 Fr.EBU 3.5 guide. A premounted 2.00 x 08 mm Alberto Chambers (JAHAIRA)was deployed. The final outcome was defined [...] dose administered prior to arrival in the assistant laboratory director. Recommended anti-platelet/anti-thrombotic regimen: Start aspirin 81 mg [...] pH, POC 7.20(Criti lewis) 7.35 - 7.45 [facility] pCO2, POC 38 35 - 45 mmHg [facility] pO2, POC 74(L) 85 - 104 mmHg [facility] Base Excess, POC -14.0(L) -3.0 - 3.0 mmol/L [facility] Bicarbonate, POC 14.5(L) 20.0 - 26.0 mmol/L [facility] Carbon Dioxide, POC 16(L) 22 - 31 mmol/L [facility] Sodium, POC 116(Critic al) 135 - 145 mmol/L [facility] POC Potassium 3.1(L) 3.5 - 5.0 mmol/L [facility] Ionized Calcium, POC 1.04(L) 1.15 - 1.33 mmol/L [facility] POC Hematocrit 39.0 34.0 - 45.0 % [facility] POC Calc Hgb 13.3 11.2 - 15.7 g/dL [facility] Blood 03/19/2024 1:26 AM EDT 03/19/2024 1:26 AM EDT Kathryn Walker MD CHEMISTRY ORDERABL ES [facility] [place] [address] documented in this encounter Visit Diagnoses Diagnosis [...] Comment: headache)211 (Not Given - Provider: Javon Sykes RN - Reason: Patient/family refused - Comment: patient changed her mind after it was scanned) alum-mag hydroxide-simeth (Maalox) (40 mg-40 mg-4 mg/mL) oral liquid 10 mL 10 mL, Oral, 3 TIMES DAILY PRN, Starting on 03/20/24 at 1137, Until Tu03/22/24 at 1411, Heartburn, Routine magnesium sulfate 2 [...] Routine documented in this encounter Care Teams Log Chain Feeder Relationship Specialty Start Date End Date None None PCP - General 03/19/24 04/20/24 documented as of this encounter
--- OUTSIDE RECORDS SUMMARY | 2024-05-19 08:32 | XMS_ITS | Encounter Summary ---
Author Organization [facility] [place] [address] Care Team Providers Care Combustion Engineer Name Role Phone Pretty Avery MD Primary Care Provider [phone] Encounter Details Date Type Department Care Team (Late st Contact Info) Description 12/08/2023 10:30 AM EDT Office Visit Dermatology at [facility] [address] [place] [address] Aylin Cole MD [facility] [address] [facility] [place] [address] Skin cancer screening; Inflamed seborrheic keratosis; History [...] for FBSE otherwise PRN []Note routed to statistical secretary [x]Recall placed in scheduling system []Appointment scheduled at checkout Scribe attestation: Juliet Angulo [facility] has performed the documentation for this encounter in the presence of and acting as a scribe for Aylin Cole MD. I performed the above scribed service and agree with the accuracy of the documentation in this encounter. Reviewed and signed by: Aylin Cole MD Dermatology [facility] documented in this encounter Plan of Treatment Upcoming Encounters Date Type Department Care Team (Late st Contact Info) Description 06/03/2024 4:00 PM EDT Office Visit Cardiology at [address] [address] Kaylee Sutherland MD [facility] [place] [address] documented as of this encounter Visit Diagnoses Diagnosis Skin cancer screening Screening for malignant neoplasm of the skin Inflamed seborrheic keratosis History of basal cell carcinoma (BCC) Seborrheic dermatitis Seborrheic dermatitis, unspecified Seborrheic keratoses Multiple benign nevi of upper extremity, lower extremity, and trunk Lentigines Other dyschromia Garcia angioma Nevus, non-neoplastic documented in this encounter Care Teams Combustion Engineer Relationship Specialty Start Date End Date Pretty Avery MD [address] [place] [address] PCP - General 08/06/10 03/18/24 documented as of this encounter
--- OUTSIDE RECORDS SUMMARY | 2024-05-19 08:32 | XMS_ITS | Encounter Summary ---
Author Organization [facility] [place] [address] Care Team Providers Care Paper Inspector Name Role Phone None Primary Care Provider Unavailabl e Encounter Details Date Type Department Care Team (Late st Contact Info) Description 03/18/2024 External Results Emergency Department [facility] [place] [phone] Social History Tobacco Use Types Packs/Day Years Used Date Smoking Tobacco: Former Smokeless Tobacco: Never [facility] Utilities Answer Date Recorded In [...] any time in the past 12 m [facility], were you homeless or living in [...] 4:00 PM EDT Office Visit Cardiology at [address] [address] Kaylee Sutherland MD [facility] [place] [address] documented as of this encounter Procedures Procedure [...] on filedocumented in this encounter Care Teams Paper Inspector Relationship Specialty Start Date End Date None None PCP - General 03/19/24 04/20/24 documented as of this encounter
--- OUTSIDE RECORDS SUMMARY | 2024-05-19 08:32 | XMS_ITS | Encounter Summary ---
Author [place] [address] Care Team Providers Care Public Employment Mediator Name Role Phone Pretty Avery MD Primary Care Provider [phone] Reason for Referral * Diagnostic Test (Routine) - Closed Specialty Diagnoses / Procedures Referred By Contac t Referred To Contact Cardiology Diagnoses Hyperlipidemia, unspecified hyperlipidemia type Procedures Mobile Demi Gross APRN [address] [place] [address] [facility] [place] [address] Referral ID Status Reason Start Date Expiration Date V isits Requested Visits Authorized [id number] Closed Specialty Service Requested 08/28/2023 08/27/2024 1 1 Reason for Visit * Diagnostic Test (Routine) - Closed Specialty Diagnoses / Procedures Referred By Contac t Referred To Contact Cardiology Diagnoses Hyperlipidemia, unspecified hyperlipidemia type Procedures Mobile Echo Demi Archibald APRN [address] [place] [address] [facility] [place] [address] Referral ID Status Reason Start Date Expiration Date V isits Requested Visits Authorized [id number] Closed Specialty Service Requested 08/28/2023 08/27/2024 1 1 Encounter Details Date Type Department Care Team (Latest Contact Info) Description 08/28/2023 3:53 PM EST - 08/28/2023 11:59 PM EST Hospital Encounter Mobile [place] [address] Demi Archibald APRN [address] [place] [address] Hyperlipidemia, unspecified hyperlipidemia type Discharge Disposition: Home [...] 4:00 PM EDT Office Visit Cardiology at [address] [phone] Kaylee Sutherland MD [facility] [place] [address] documented as of this encounter Procedures Procedure Name Priority Date/Time Associated Diagnosis Comments ECHO COMPLETE Routine 08/28/2023 4:04 PM EST Hyperlipidemia, unspecified hyperlipidemia type documented in this encounter Results * ECHO COMPLETE (08/28/2023 4:04 PM EST) Anatomical Region Laterality Modality Other 08/28/2023 2:15 PM EST Narrative 08/28/2023 4:14 PM EST [address] [place] [address] ? Echocardiogram Report Name: EZEQUIEL THOMAS ?Study Date: 08/28/2023 02:15 PM ? Patient Location: : 1965 ? Height: 157 cm ? Account: [id number] Age: 58 yrs ? Weight: 57 kg Gender: Female ?BSA: 1.6 m2 Ordering Physician: DEMI ARCHIBALD Referring Physician: DEMI ARCHIBALD Reason For Study: CAD, HLD, HTN Exam Location: [facility]. Interpretation Summary Normal biventricular size and function. LVEF 60-65% by visual assessment. Normal diastolic function. Normal pulmonary pressures. Normal atrial sizes. Mild mitral regurgitation. No prior for comparison. Procedure Complete-[id number]. Satisfactory quality. Left Ventricle Wall thickness is [...] Note Kaylee Sutherland MD - 08/28/2023 1 [place] [address] Echocardiogram Report Name: ANNESAMANTHAISAI EZEQUIEL Chuy Study Date:08/28/2023 02:15 PM Patient Location: : 1965 Height: 157 cm Account: [id number] Age: 58 yrs Weight: 57 kg Gender: Female BSA: 1.6 m2 Ordering Physician: DEMI ARCHIBALD Referring Physician: DEMI ARCHIBALD Reason For Study: CAD, HLD, HTN Exam Location: [facility]. Interpretation Summary Normal biventricular size and function. LVEF 60-65% by visual assessment.Normal diastolic function. Normal pulmonary pressures. Normal atrial sizes. Mild mitral regurgitation. No prior for comparison. Procedure Complete-[id number]. Satisfactory quality. Left Ventricle Wall thickness is [...] type documented in this encounter Care Teams Public Employment Mediator Relationship Specialty Start Date End Date Pretty Avery MD [address] [place] [address] PCP - General 08/06/10 03/18/24 documented as of this encounter
--- OUTSIDE RECORDS SUMMARY | 2024-05-19 08:32 | XMS_ITS | Encounter Summary ---
Author Organization [facility] [place] [address] Care Team Providers Care Cloth Dyeing Range Tender Name Role Phone Pretty Avery MD Primary Care Provider [phone] Reason for Visit * Reason Comments Skin Check Encounter Details Date Type Department Care Team (Late st Contact Info) Description 02/04/2017 1:15 PM EDT Office Visit Dermatology at [facility] [address] [place] [address] Lisa Candelario MD [facility] [address] [place] [address] Seborrheic keratosis; Multiple benign nevi; History of [...] Lisa Candelario MD Section of Dermatology [facility] documented in this encounter Plan of Treatment Upcoming Encounters Date Type Department Care Team (Late st Contact Info) Description 06/03/2024 4:00 PM EDT Office Visit Cardiology at [address] [phone] Kaylee Sutherland MD [facility] [place] [address] documented as of this encounter Visit Diagnoses Diagnosis Seborrheic keratosis Other seborrheic keratosis Multiple benign nevi Benign neoplasm of skin, site unspecified History of basal cell cancer Personal history of other malignant neoplasm of skin documented in this encounter Care Teams Cloth Dyeing Range Tender Relationship Specialty Start Date End Date Pretty Avery MD [address] [place] [address] PCP - General 08/06/10 03/18/24 documented as of this encounter
--- OUTSIDE RECORDS SUMMARY | 2024-05-19 08:32 | XMS_ITS | Encounter Summary ---
Author Organization [facility] Address [facility] [place] [address] Care Team Providers Care Administrative Assistant Receptionist Name Role Phone Pretty Avery MD Primary Care Provider [phone] Encounter Details Date Type Department Care Team (Latest Contact Info) Description 03/18/2024 11:37 PM EDT - 03/18/2024 11:59 PM EDT Hospital En[place] [phone] Destin Ambrosio MD [facility] [place] [address] Discharge Disposition: Home Social History Tobacco Use [...] 4:00 PM EDT Office Visit Cardiology at [address] [phone] Kaylee Sutherland MD [facility] [place] [address] documented as of this encounter Visit Diagnoses Not on filedocumented in this encounter Care Teams Administrative Assistant Receptionist Relationship Specialty Start Date End Date Pretty Avery MD [address] [place] [address] PCP - General 08/06/10 03/18/24 documented as of this encounter
[2024-05-19 08:36] LABS: Abs Immature Grans 0.02 10^3/uL (0.0-0.06); Absolute Basophil Count 0.03 10^3/uL (0.0-0.2); Absolute Eosinophil Count 0.26 10^3/uL (0.0-0.7); Absolute Lymphocyte Count 1.75 10^3/uL (1.2-3.4); Absolute Monocyte Count 0.47 10^3/uL (0.1-0.8); Absolute Neutrophil Count 4.51 10^3/uL (1.2-6.7); Basophils % 0.4 %; Eosinophils % 3.7 %; HGB 13.4 g/dL (11.2-15.7); Immature Grans % 0.3 %; Lymphocytes % 24.9 %; MCH 27.1 pg (27.0-33.0); MCHC 31.9 % (32.0-36.0); MCV 85 fL (80-95); MPV 9.3 fL (8.0-11.0); Monocytes % 6.7 %; Platelet Count 261 10^3/uL (130-400); RBC 4.94 10^6/uL (3.93-5.22); RDW 13.5 % (11.7-14.6); RDW-SD 41.9 fL; WBC 7.04 10^3/uL (4.4-10.8)
[2024-05-19 09:35] LABS: ALT 51 U/L (14-59); AST 24 U/L (15-37); Albumin 3.9 g/dL (3.4-5.0); Alkaline Phosphatase 72 U/L (46-116); Anion Gap 9.2 mmol/L (3-11); BUN 16 mg/dL (7-18); Bilirubin, Total 0.54 mg/dL (0.2-1.0); CO2 28.8 mmol/L (21.0-32.0); CREATININE 0.9 mg/dL (0.55-1.02); Calcium 9.1 mg/dL (8.5-10.1); Chloride 104 mmol/L (98-107); Estimated GFR 73.19 (mL/min/1.73m2); Folate 17.3 ng/mL (8.6-20.0); Glucose 95 mg/dL (74-106); Sodium 142 mmol/L (136-145); TSH (W/Ref FT4) 3.98 uIU/mL (0.36-3.74); Total Protein 7.3 g/dL (6.4-8.2); Vitamin B12 460 pg/mL (193-986)
[2024-05-19 09:53] LABS: FREE T4 0.77 ng/dL (0.76-1.46)
[2024-05-20 08:04] LABS: Lyme Ab w Rflx to Lyme Confirm Negative (Negative)
[2024-05-20 08:11] LABS: Calculated LDL 214 mg/dL (<100); Cholesterol 300 mg/dL (<200); HDL Cholesterol 68 mg/dL (40-60); Triglyceride 93 mg/dL (<150)
[2024-05-22 19:16] LABS: Anaplasma phagocytophilum Negative (Negative); B. miyamotoi PCR Negative (Negative); Babesia divergens/MO-1 Negative (Negative); Babesia duncani Negative (Negative); Babesia microti Negative (Negative); Ehrlichia chaffeensis Negative (Negative); Ehrlichia ewingii/canis Negative (Negative); Ehrlichia muris eauclairensis Negative (Negative)
== END 2024-05-19 08:28 | disposition home or self-care (01) ==
LOC: LBO 08:28
PROVIDERS: PCP Family Medicine; Visit Provider Nurse Practitioner Family
DX: E78.5 Hyperlipidemia, unspecified (principal); R53.83 Other fatigue
CPT/HCPCS: 36415; 80053; 80061; 87798; 82607; 82746; 84439; 84443; 85025; 86618

== ENCOUNTER 2024-06-28 09:00 | Outpatient (CLI) | payer MEDICAID, SELFPAY ==
[2024-06-28 09:42] LABS: Calculated LDL 176 mg/dL (<100); Cholesterol 260 mg/dL (<200); HDL Cholesterol 64 mg/dL (40-60); Triglyceride 101 mg/dL (<150)
[2024-06-30 10:28] LABS: Apolipoprotein B, S 138 mg/dL
== END 2024-06-28 09:01 | disposition home or self-care (01) ==
LOC: LBO 09:01
PROVIDERS: PCP Family Medicine; Visit Provider Internal Medicine
DX: E78.5 Hyperlipidemia, unspecified (principal)
CPT/HCPCS: 36415; 80061; 82172

== ENCOUNTER 2024-12-07 09:36 | Outpatient (REF) | payer MEDICAID, SELFPAY ==
[2024-12-07 16:25] LABS: Calculated LDL 83 mg/dL (<100); Cholesterol 184 mg/dL (<200); HDL Cholesterol 75 mg/dL (>or=50); Triglyceride 132 mg/dL (<150)
== END 2024-12-07 09:37 | disposition home or self-care (01) ==
LOC: NCHCN 09:36
PROVIDERS: PCP Family Medicine; Visit Provider Nurse Practitioner Family
DX: E78.5 Hyperlipidemia, unspecified (principal)
CPT/HCPCS: 80061

== ENCOUNTER 2024-12-26 15:18 | Outpatient (REF) | payer MEDICAID, SELFPAY ==
[2024-12-26 16:12] LABS: TSH (W/Ref FT4) 3.38 uIU/mL (0.36-3.74)
== END 2024-12-26 15:19 | disposition home or self-care (01) ==
LOC: NCHCN 15:18
PROVIDERS: PCP Family Medicine; Visit Provider Nurse Practitioner Family
DX: E03.9 Hypothyroidism, unspecified (principal)
CPT/HCPCS: 84443

== ENCOUNTER 2025-05-10 10:46 | Outpatient (CLI) | payer MEDICAID, SELFPAY ==
[2025-05-10 11:04] LABS: Calculated LDL 97 mg/dL (<100); Cholesterol 186 mg/dL (<200); HDL Cholesterol 66 mg/dL (>or=50); Triglyceride 117 mg/dL (<150)
== END 2025-05-10 10:47 | disposition home or self-care (01) ==
LOC: LBO 10:46
PROVIDERS: PCP Family Medicine; Visit Provider Internal Medicine Cardiovascular Disease
DX: I25.10 Atherosclerotic heart disease of native coronary artery without angina pectoris (principal)
CPT/HCPCS: 36415; 80061; 83695